=== PATIENT | female | born 1965 | race Caucasian/White ===

== ENCOUNTER 2022-03-24 06:54 | Inpatient (IN) | payer MEDICARE, MEDICAID, SELFPAY ==
[2022-03-24] VITALS (38 sets, daily range): BP systolic 145–169; BP diastolic 90–104; PULSE 79–96; RESP 15–28; TEMP 36.5–36.8; O2SAT 97–100; BMI 31.7
--- NOTE | ~2022-03-24 | CT_ITS ---
EXAMINATION: CT guide nephro tube pl RT DATE: 03/24/2022 15:31 INDICATION: Right hydronephrosis. TECHNIQUE: Consent was obtained from the legal guardian. The skin overlying the right kidney was prep ped and draped in usual sterile fashion. Anesthetic was administered with 1% lidocaine subcutaneousl y. An 18 gauge trochar needle was inserted into a the right kidney collecting system under CT guidanc e. The needle was exchanged over a wire for 5 Malaysian, 7 Malaysian, and 9 Malaysian dilators. During pigtail catheter placement, the wire became dislodged from the kidney. The target pocket of fluid in the col lecting system is not very large. A dressing was applied. The mA was adjusted according to patient si ze. Iterative reconstruction technique was employed. The dose-length product was 595.29 mGy-cm. There were no immediate complications. FINDINGS: The visualized portions of the lung bases to posterior mild atelectasis. There are trace pl eural effusions. Cardiomegaly is noted. There are coronary artery calcifications. There is a small sl iding hiatal hernia. The liver, gallbladder, spleen, pancreas, and adrenal glands are normal. There i s mild atrophy of the kidneys. There are staghorn calculi in the kidneys bilaterally. There is a 15 m m stone in proximal right ureter. There is mild right hydronephrosis. Stool distends the rectosigmoid . The appendix is normal. There are no pathologically enlarged lymph nodes. There is no free intraper itoneal fluid. There is a screw fixation of proximal right femur. 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 There is chronic dislocation of left hip with deformity and fusion of the femur and ilium. There is mild thoracolumbar spondylosis. There is chroni c height loss of multiple vertebral bodies. CT images demonstrate the needle and wire in the right renal pelvis. IMPRESSION: 1. Staghorn calculi in both kidneys. 15 mm stone in proximal right ureter with mild right hydronephro sis. 2. Failed right-sided CT-guided nephrostomy tube placement attempt. Aspiration of the right renal pel vis yielded 2 mL of opaque, crain fluid, which was sent for cultures. I discussed this result with Jhonny Wise. 3. Stool distends the rectosigmoid. Reviewed, dictated and finalized at location A. IMPRESSION: 1. Staghorn calculi in both kidneys. 15 mm stone in proximal right ureter with mild right hydronephrosis. 2. Failed right-sided CT-guided nephrostomy tube placement attempt. Aspiration of the right renal pelvis yielded 2 mL of opaque, crain fluid, which was sent for cultures. I discussed this result with Ghassan Wise. 3. Stool distends the rectosigmoid.
--- NOTE | 2022-03-24 07:37 | PC.NURSE ---
multiple attempts for catheter placement. unsuccessful. ERP made aware.
--- NOTE | 2022-03-24 07:48 | ED.GENADULT ---
HPI - General Adult General Chief complaint: Urogenital-Female Stated complaint: nephrostomy tube fell out Time Seen by Provider: 03/24/22 07:01 History of Present Illness HPI narrative: Patient is a 56-year-old female who presents ER with dislodgment of her right-sided nephrostomy tube. [facility] staff at [facility] discovered this at 3:30 AM. They are unsure when it actually came out. Patient has dementia and cannot provide an adequate history. It is unknown at this time which facility place this tube, which doctor placed this tube, or why it was placed. Patient does have history of MS and kidney stones and is a functional quadriplegic. 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 The urine in the nephrostomy bag is thick cloudy and green. Related Data Home Medications Medication Instructions Recorded Confirmed Lactobacillus acidophilus 2,000 mmu cells PO BID 03/24/22 03/24/22 (Acidophilus capsule) acetaminophen 650 mg tablet 650 mg PO Q4H PRN Pain 03/24/22 03/24/22 atorvastatin 40 mg tablet 40 mg PO HS 03/24/22 03/24/22 citalopram 20 mg tablet 20 mg PO HS 03/24/22 03/24/22 clonidine HCl 0.1 mg tablet 0.1 mg PO DAILY 03/24/22 03/24/22 cyclobenzaprine 5 mg tablet 5 mg PO BID 03/24/22 03/24/22 ferrous sulfate 325 mg (65 mg 325 mg PO BID 03/24/22 03/24/22 iron) tablet,delayed release furosemide 40 mg tablet 40 mg PO DAILY 03/24/22 03/24/22 guaifenesin 600 mg tablet, 600 mg PO Q12H 03/24/22 03/24/22 extended release 12 hr (Mucinex) hydrocodone 5 mg-acetaminophen 325 1 tablet PO Q6H PRN Severe Pain 03/24/22 03/24/22 mg tablet (Scale Score 7-10) hydrocortisone 20 mg tablet 20 mg PO DAILY 03/24/22 03/24/22 ipratropium bromide 0.02 % 1 ml inhalation DAILY PRN 03/24/22 03/24/22 solution for inhalation Shortness Of Breath lactulose 10 gram/15 mL oral 15 ml PO BID 03/24/22 03/24/22 solution lorazepam 1 mg tablet 1 mg PO Q6H 03/24/22 03/24/22 metoprolol tartrate 50 mg tablet 50 mg PO BID 03/24/22 03/24/22 multivitamin with minerals 1 tablet PO DAILY 03/24/22 03/24/22 ondansetron 4 mg disintegrating 4 mg PO Q6H PRN Nausea 03/24/22 03/24/22 tablet polyethylene glycol 3350 17 gram 17 g PO DAILY PRN Constipation 03/24/22 03/24/22 oral powder packet (Miralax) potassium chloride 20 mEq oral 20 meq PO DAILY 03/24/22 03/24/22 packet pregabalin 100 mg capsule 100 mg PO BID 03/24/22 03/24/22 risperidone 0.5 mg tablet 0.5 mg PO HS 03/24/22 03/24/22 sennosides 8.6 mg tablet (senna) 8.6 mg PO DAILY PRN Constipation 03/24/22 03/24/22 trazodone 50 mg tablet 0.5 tablet PO HS 03/24/22 03/24/22 Allergies Allergy/AdvReac Type Severity Reaction Status Date / Time No Known Allergies Allergy Unverified 10/02/15 21:16 Review of Systems Review of Systems: ROS unobtainable: Yes unobtainable due to mental status PMFSH Past Medical History Medical History (Updated 03/24/22 @ 14:21 by Epi Bansal MD) Anemia COPD (chronic obstructive pulmonary disease) Chronically O2 dependent on 4 L. Dementia Depression Essential (primary) hypertension Functional quadriplegia secondary to MS Generalized anxiety disorder Hyperlipidemia Multiple sclerosis Schizophrenia Surgical History Surgical History H/O nephrostomy Family History Family History Mother Family history of multiple sclerosis Hypertension Father Patient's father is Social History Social History (Updated 03/24/22 @ 13:41 by SWEETIE Brown) Social History: Patient is a [facility] Her guardian is Abe Burnham and can be reached at [phone]. Patient is a full code at this time Smoking status: Never smoker Second hand tobacco smoke exposure: Yes Alcohol intake: never Substance use: never Living arrangements: [facility] 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ion: unemployed [employer]
[2022-03-24 07:49] LABS: Bacteria Urine 4+ /hpf; RBC Urine >75 /hpf (0-2); WBC Clumps Urine Present /HPF; WBC Urine >75 /hpf
[2022-03-24 07:50] LABS: Add Urine Microscopic? YES; Appearance Urine Turbid (Clear); Color Urine Light Green (Yellow)
[2022-03-24 07:51] LABS: Lactic Acid Reflex 1.2 mmol/L (0.7-2.0)
[2022-03-24 07:52] LABS: Basophils Percent Auto 0.5 % (0.2-1.2); Eosinophils Absolute Auto 0.3 K/mm3 (0-0.3); Eosinophils Percent Auto 3.6 % (0-4.4); Hematocrit 35.4 % (37.0-47.0); Hemoglobin 10.8 g/dL (12.0-15.0); Immature Granulocyte Absolute 0.02 K/mm3 (0.00-0.031); Immature Granulocyte Percent A 0.2 % (0-0.5); Lymphocytes Absolute Auto 1.27 K/mm3 (0.9-3.2); Lymphocytes Percent Auto 15.3 % (18.3-44.2); Mean Corpuscular HGB Conc 30.5 g/dl (32-36); Mean Corpuscular Volume 85.1 fl (80-100); Mean Platelet Volume 9.9 fl (7.4-10.4); Monocytes Absolute Auto 0.5 K/mm3 (0.1-0.6); Monocytes Percent Auto 5.7 % (2.6-8.5); Neutrophils Absolute Auto 6.2 K/mm3 (1.3-6.7); Neutrophils Percent Auto 74.7 % (45.5-73.1); Platelet Count Result 268 k/mm3 (150-375); Red Blood Count 4.16 M/mm3 (4.2-5.4); Red Cell Distribution Width 14.6 % (11.5-14.5); White Blood Count 8.3 K/mm3 (4.5-10.0)
[2022-03-24 07:53] LABS: Anion Gap 4 mmol/L (8-16); Blood Urea Nitrogen 19 mg/dL (7-17); Calcium 8.9 mg/dL (8.4-10.2); Carbon Dioxide 29 mmol/L (22-30); Chloride 106 mmol/L (98-107); Estimated CRCL calculation 70 ml/min; Estimated Glomerular Filt Rate > 60; Glucose 99 mg/dL (65-110); INR 1.1; Partial Thromboplastin Time 31.3 SECONDS (22.3-36.8); Potassium 4.1 mmol/L (3.4-5.0); Prothrombin Time 14.1 Seconds (11.1-14.7); Sodium 139 mmol/L (137-145)
--- NOTE | 2022-03-24 10:30 | PC.NURSE ---
obtained consent for CT guided nephrostomy tube placement
--- NOTE | 2022-03-24 10:33 | PC.NURSE ---
ct states nephrostomy tube cannot be placed until approx 1400
--- NOTE | 2022-03-24 11:03 | PC.NURSE ---
faxed pt. information request to [facility] and [facility].
--- NOTE | 2022-03-24 12:21 | ADMGEN ---
This patient, Yesenia Perez, was admitted to 3 [facility] Surg Room 323-01. Patient/family oriented to hospital policies and general routines including ID bracelet, bed and alarms, visiting hours, pain management, procedures, bathroom and other care routines, personal items, smoking policy, room service/diet, and visiting hours. Information on how to activate the Rapid Response Team has been discussed. Patient/Family are encouraged to report perceived risks to care and to ask questions if they do not understand what they are told or what they should do.
--- NOTE | 2022-03-24 12:27 | ADMGEN ---
This patient, Yesenia Perez, was admitted to 3 [facility] Surg Room 323-01 at 1215. Patient/family oriented to hospital policies and general routines including ID bracelet, bed and alarms, visiting hours, pain management, procedures, bathroom and other care routines, personal items, smoking policy, room service/diet, and visiting hours. Information on how to activate the Rapid Response Team has been discussed. Patient/Family are encouraged to report perceived risks to care and to ask questions if they do not understand what they are told or what they should do.
[2022-03-24] MEDS: SODIUM CHLORIDE 0.9% IV 1,000 ML 125 ML IV CONT (12:59)
--- NOTE | 2022-03-24 15:30 | PM.IMHP ---
H&P: HPI History of Present Illness Date/Time: 03/24/22 1430 Chief Complaint: Nephrostomy tube displacement Narrative: Patient is a 56-year-old female with a past medical history of COPD, dementia, hypertension, multiple sclerosis, schizophrenia who [facility] from the [facility] for her nephrostomy tube being displaced. Patient is a alert oriented times 0 and most of the history taken from medical records. Patient has had a nephrostomy tube placed sometime in her past however unknown at this time who did it or when it was placed. However this morning at 3:30 a.m. the [facility] staff went in to check the patient and nurse at the tube was dislodged. They have no recollection of when the tube was dislodged or know what even happened. However when patient did arrive it was noted that that urine in the bag was very dark green thick urine. Patient currently looks comfortable, and seems to be doing well. She denies any chest pain, shortness of breath, pain or discomfort. Complete review of systems unable to be obtained due to patients mental status. She does communicate and she was upset and stated that she was adopted. After a little bit of research, it looks as if the nephrostomy tube was placed at [facility] in [place]. She was referred to a urologist at [place] last Nov. Continue antibiotics at this time. Patient is being admitted to the hospitalist service under observation Review of Systems Review of Systems: All systems reviewed & are unremarkable except as noted in HPI and below PMFSH Past Medical History Medical History (Updated 03/24/22 @ 14:21 by Epi Bansal MD) Anemia COPD (chronic obstructive pulmonary disease) Chronically O2 dependent on 4 L. Dementia Depression Essential (primary) hypertension Functional quadriplegia secondary to MS Generalized anxiety disorder Hyperlipidemia Multiple sclerosis Schizophrenia Surgical History Surgical History H/O nephrostomy Family History Family History Mother Family history of multiple sclerosis Hypertension Father Patient's father is Social History Social History (Updated 03/24/22 @ 13:41 by SWEETIE Brown) Social History: Patient is a ramos of the [facility]. Her guardian is Abe Burnham and can be reached at [phone]. Patient is a full code at this time Smoking status: Never smoker Second hand tobacco smoke exposure: Yes Alcohol intake: never Substance use: never Living arrangements: [facility] 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ion: unemployed Gender identity (if verbalized by the patient): Female Sexual Orientation (if Verbalized by the Patient): Straight or Heterosexual Spiritual care concerns: No Agree to blood products: Yes Meds Home Medications and Allergies Home Medications Medication Instructions Recorded Confirmed Type Lactobacillus acidophilus 2,000 mmu cells PO BID 03/24/22 03/24/22 History (Acidophilus capsule) acetaminophen 650 mg tablet 650 mg PO Q4H PRN Pain 03/24/22 03/24/22 History atorvastatin 40 mg tablet 40 mg PO HS 03/24/22 03/24/22 History citalopram 20 mg tablet 20 mg PO HS 03/24/22 03/24/22 History clonidine HCl 0.1 mg tablet 0.1 mg PO DAILY 03/24/22 03/24/22 History cyclobenzaprine 5 mg tablet 5 mg PO BID 03/24/22 03/24/22 History ferrous sulfate 325 mg (65 mg 325 mg PO BID 03/24/22 03/24/22 History iron) tablet,delayed release furosemide 40 mg tablet 40 mg PO DAILY 03/24/22 03/24/22 History guaifenesin 600 mg tablet, 600 mg PO Q12H 03/24/22 03/24/22 History extended release 12 hr (Mucinex) hydrocodone 5 mg-acetaminophen 325 1 tablet PO Q6H PRN Severe Pain 03/24/22 03/24/22 History mg tablet (Scale Score 7-10) hydrocortisone 20 mg tablet 20 mg PO DAILY 03/24/22 03/24/22 History ipratropium bromide 0.02 % 1 ml inhalation DAILY PRN 03/24/22 0
--- NOTE | 2022-03-24 16:28 | WPDURCON ---
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 Failed attempt by Interventional Radiology to replace to this afternoon. Patient currently clinically stable with normal white blood cell count and vital signs. -continue IV antibiotics -given inability of Interventional Radiology at this facility to replace her nephrostomy tube, I have recommended patient be transferred to a tertiary care facility to allow for nephrostomy tube replacement by Interventional Radiology. -I do not believe that ureteral stent placement will be successful ( stent placement was not attempted by multiple previous urologist at other facilities due to size of her large obstructing stone). Patient have better chance of definitive care with nephrostomy tube placement at a tertiary facility and additional interventions if necessary in this complex patient. Urology Consult Note HPI Date Seen: 03/24/22 Requesting Physician: Brittany Saul MD Primary Care Provider: Ana Moore, Consult Narrative Narrative: Yesenia Perez is a 56 year old female who has a history of nephrolithiasis and extensive bilateral stone disease. The patient has been managed with a right-sided nephrostomy to since November of 2019 after admission at [facility] for for mental status change and XGP kidney. The patient was found at her senior living today to have the right nephrostomy 2 to be dislodged and therefore was brought to [facility] for evaluation. The patient was taken to Interventional Radiology where they were able to place the needle and aspirate for urine drainage from the right kidney however were unable to replace her nephrostomy tube. The patient is A&O x1 and unable to give full history. History obtained from chart. [facility] Past Medical History Medical History (Updated 03/24/22 @ 16:37 by Suresh Sommer MD) Anemia COPD (chronic obstructive pulmonary disease) Chronically O2 dependent on 4 L. Dementia Depression Essential (primary) hypertension Functional quadriplegia secondary to MS Generalized anxiety disorder Hyperlipidemia Multiple sclerosis Schizophrenia XGP (xanthogranulomatous pyelonephritis) Surgical History Surgical History H/O nephrostomy Family History Family History Mother Family history of multiple sclerosis Hypertension Father Patient's father is Social History Social History (Updated 03/24/22 @ 13:41 by SWEETIE Brown) Social History: Patient is a ramos of the [facility]. Her guardian is Abe Burnham and can be reached at [phone]. Patient is a full code at this time Smoking status: Never smoker Second hand tobacco smoke exposure: Yes Alcohol intake: never Substance use: never Living arrangements: senior living 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ion: unemployed Gender identity (if verbalized by the patient): Female Sexual Orientation (if Verbalized by the Patient): Straight or Heterosexual Spiritual care concerns: No Agree to blood products: Yes Meds Home Medications and Allergies Home Medications Medication Instructions Recorded Confirmed Type Lactobacillus acidophilus 2,000 mmu cells PO BID 03/24/22 03/24/22 History (Acidophilus capsule) acetaminophen 650 mg tablet 650 mg PO Q4H PRN Pain 03/24/22 03/24/22 History atorvastatin 40 mg tablet 40 mg PO HS 03/24/22 03/24/22 History citalopram 20 mg tablet 20 mg PO HS 0
[2022-03-24] MEDS: LACTULOSE 20 GM/30 ML UDC 10 GM PO (17:34)
[2022-03-24] MEDS: CYCLOBENZAPRINE HCL 5 MG TABLET PO (17:35)
[2022-03-24] MEDS: METOPROLOL TARTRATE 50 MG TAB PO (17:35)
[2022-03-24] MEDS: PREGABALIN (*CRX) 50 MG CAPSULE 100 MG PO (17:35)
[2022-03-24] MEDS: FERROUS SULFATE 324 MG TABLET PO (17:36)
[2022-03-24] MEDS: ACIDOPHILUS/BULGARICUS CHEWABLE TABLET 1 TABLET PO (17:36)
[2022-03-24] MEDS: LORazepam (*CRX) 1 MG TABLET PO (17:36)
[2022-03-24 18:11] LABS: EDCOVIDSCREEN Negative (Negative)
[2022-03-24] MEDS: ATORVASTATIN 40 MG TABLET PO (22:09)
[2022-03-24] MEDS: CITALOPRAM HYDROBROMIDE 20 MG TABLET PO (22:14)
[2022-03-24] MEDS: guaiFENesin 12 HR 600 MG TABCR PO (22:14)
[2022-03-24] MEDS: risperiDONE 0.5 MG TABLET PO (22:16)
[2022-03-24] MEDS: traZODone HCL 25 MG TABLET PO (22:16)
[2022-03-25] VITALS (9 sets, daily range): BP systolic 111–128; BP diastolic 72–87; PULSE 80–115; RESP 18–24; TEMP 35.9–36.8; O2SAT 96–99
[2022-03-25] MEDS: LORazepam (*CRX) 1 MG TABLET PO ×5 (01:17→23:11)
[2022-03-25] MEDS: SODIUM CHLORIDE 0.9% IV 1,000 ML 125 ML IV CONT ×3 (03:47→22:36)
[2022-03-25 06:32] LABS: Basophils Percent Auto 0.3 % (0.2-1.2); Eosinophils Absolute Auto 0.2 K/mm3 (0-0.3); Eosinophils Percent Auto 1.9 % (0-4.4); Hematocrit 34.2 % (37.0-47.0); Hemoglobin 10.4 g/dL (12.0-15.0); Immature Granulocyte Absolute 0.04 K/mm3 (0.00-0.031); Immature Granulocyte Percent A 0.4 % (0-0.5); Lymphocytes Absolute Auto 0.99 K/mm3 (0.9-3.2); Lymphocytes Percent Auto 9.7 % (18.3-44.2); Mean Corpuscular HGB Conc 30.4 g/dl (32-36); Mean Corpuscular Hemoglobin 26.3 pg (26-34); Mean Corpuscular Volume 86.6 fl (80-100); Mean Platelet Volume 10.1 fl (7.4-10.4); Monocytes Absolute Auto 0.6 K/mm3 (0.1-0.6); Monocytes Percent Auto 5.8 % (2.6-8.5); Neutrophils Absolute Auto 8.4 K/mm3 (1.3-6.7); Neutrophils Percent Auto 81.9 % (45.5-73.1); Platelet Count Result 238 k/mm3 (150-375); Red Blood Count 3.95 M/mm3 (4.2-5.4); Red Cell Distribution Width 14.6 % (11.5-14.5); White Blood Count 10.2 K/mm3 (4.5-10.0)
[2022-03-25 06:47] LABS: Alanine Aminotransferase 10 U/L (6-35); Albumin Level 3.4 g/dL (3.5-5.1); Alkaline Phosphatase 148 U/L (38-126); Anion Gap 6 mmol/L (8-16); Aspartate Amino Transferase 16 U/L (14-36); Bilirubin,Total 0.6 mg/dL (0.2-1.3); Blood Urea Nitrogen 14 mg/dL (7-17); Calcium 8.2 mg/dL (8.4-10.2); Carbon Dioxide 25 mmol/L (22-30); Chloride 106 mmol/L (98-107); Estimated CRCL calculation 79 ml/min; Estimated Glomerular Filt Rate > 60; Glucose 102 mg/dL (65-110); Magnesium 1.9 mg/dL (1.6-2.3); Potassium 3.9 mmol/L (3.4-5.0); Sodium 137 mmol/L (137-145)
[2022-03-25 06:49] LABS: Transferrin 111 mg/dL (206-381)
[2022-03-25 07:19] LABS: Iron 35 ug/dL (37-170)
[2022-03-25 07:26] LABS: Percent Iron Saturation 18 % (20-50)
[2022-03-25] MEDS: LACTULOSE 20 GM/30 ML UDC 10 GM PO ×2 (08:41→17:29)
[2022-03-25 08:42] LABS: Folic Acid 16.7 ng/mL (2.76->20)
[2022-03-25] MEDS: POTASSIUM CHLORIDE 20 MEQ PACKET (FOR LIQUID) PO (08:42)
[2022-03-25] MEDS: METOPROLOL TARTRATE 50 MG TAB PO ×2 (08:42→17:31)
[2022-03-25] MEDS: FERROUS SULFATE 324 MG TABLET PO ×2 (08:42→17:29)
[2022-03-25] MEDS: FUROSEMIDE 40 MG TABLET PO (08:42)
[2022-03-25] MEDS: PREGABALIN (*CRX) 50 MG CAPSULE 100 MG PO ×2 (08:42→17:30)
[2022-03-25] MEDS: guaiFENesin 12 HR 600 MG TABCR PO ×2 (08:42→20:58)
[2022-03-25] MEDS: THERAPEUTIC MULTIVITAMINS/MINERALS TAB (*BKC) 1 TABLET PO (08:42)
[2022-03-25] MEDS: CYCLOBENZAPRINE HCL 5 MG TABLET PO ×2 (08:42→17:29)
[2022-03-25] MEDS: HYDROCORTISONE 10 MG TABLET 20 MG PO (08:42)
[2022-03-25] MEDS: cloNIDine HCL 0.1 MG TABLET PO (08:43)
[2022-03-25] MEDS: ACIDOPHILUS/BULGARICUS CHEWABLE TABLET 1 TABLET PO ×2 (08:43→17:29)
--- NOTE | 2022-03-25 09:04 | PM.IMPN ---
Progress Note: A&P Assessment and Plan (1) Nephrostomy tube displaced: Code(s): T83.022A - Displacement of nephrostomy catheter, initial encounter Status: Acute Assessment and Plan: Noted be dislodged IR consultation for new placement Wound and skin care Urology consulted for further recommendations IR unsuccessful about getting the tube placed Dr. Pérez, stated that he was able to obtain 2-3ml of purulent drainage Per Urology, the stone cannot be removed by stent placement and the recommendation is for transfer to a tertiary hospital system for nephrostomy tube placement and additional management This morning leukocytosis with right shift. Patient remains afebrile but does mention some pain. Currently on imepenem 1,000 mg q8h. Called [facility] transfer center and patient has been accepted at [facility] but is still awaiting a bed (2) Abnormal urinalysis: Code(s): R82.90 - Unspecified abnormal findings in urine Status: Acute Assessment and Plan: Turbid like green urine with greater than 75 white blood cells, white blood cell clumps present, 4+ urine bacteria Continue Primaxin UCX finalized with mixed jenny no speciation BCX with no growth so far (3) Anemia: Code(s): D64.9 - Anemia, unspecified Status: Acute Assessment and Plan: H&H stable at this time 10.9/34.4 Continue home ferrous sulfate 325 p.o. b.i.d. Trend labs Has iron defeciency anemia and is currently on iron BID. Continue. (4) Hyperlipidemia: Code(s): E78.5 - Hyperlipidemia, unspecified Status: Acute Assessment and Plan: Continue statin. (5) Essential (primary) hypertension: Code(s): I10 - Essential (primary) hypertension Status: Acute Assessment and Plan: Continue home medications. Will monitor. (6) Generalized anxiety disorder: Code(s): F41.1 - Generalized anxiety disorder Status: Acute Assessment and Plan: Continue lorazepam 1mg PO Q6H, trazadone 0.5 at HS, and risperidone 0.5mg pO HS Subjective Date/time seen: 03/25/22 0830 Patient says she has pain but cannot specify where. Says she feels ok but does not like being in the room alone. Review of Systems Neurologic: Reports confusion Exam Narrative: GENERAL: NAD, cooperative HEENT: Normocephalic, atraumatic, anicteric NECK: Supple CV: Normal S1, S2, RRR, No MRG RESP: CTAB, Normal work of breathing. Abdomen: Soft, non-tender, non-distended EXTREMITIES: Warm and well perfused, no clubbing, cyanosis, or edema. LUE extremely stiff and lays to left side SKIN: warm, dry and intact. NEURO: Alert and oriented to self. Objective Data Vital Signs Vital Signs: Vital Signs - 24 hr 03/24/22 17:35 03/24/22 21:43 03/24/22 20:40 Temperature 98.0 F Pulse Rate 80 89 89 Respiratory Rate 22 H 22 H Blood Pressure 146/92 H Pulse Oximetry 97 97 Oxygen Delivery Nasal Cannula Oxygen Flow Rate 4 03/25/22 05:38 03/25/22 08:42 03/25/22 08:30 Temperature 98.2 F Pulse Rate 115 H 90 Respiratory Rate 24 H Blood Pressure 128/87 Pulse Oximetry 99 99 Oxygen Delivery Nasal Cannula Oxygen Flow Rate 4 03/25/22 13:04 03/25/22 14:00 Temperature 96.6 F L Pulse Rate 92 Respiratory Rate 18 Blood Pressure 112/82 Pulse Oximetry 98 97 Oxygen Delivery Nasal Cannula Oxygen Flow Rate 4 Intake/Output Intake/Output: Intake & Output 03/22/22 03/23/22 03/24/22 03/25/22 23:59 23:59 23:59 23:59 Intake Total 1250 1500 Balance 1250 1500 Meds/Results Medications: Active Medications Generic Name Dose Route Start Last Admin Trade Name Freq PRN Reason Stop Dose Admin Acetaminophen 650 mg 03/24/22 15:09 Acetaminophen 325 Mg Tablet PO Q4H PRN Pain rated 1-3 Hydrocodone Bitart/Acetaminophen 1 tab 03/24/22 15:04 Hydrocodone/Aceta
--- NOTE | 2022-03-25 09:04 | P.PNIM_ITS ---
Progress Note: A&P Assessment and Plan (1) Nephrostomy tube displaced: Code(s): T83.022A - Displacement of nephrostomy catheter, initial encounter Status: Acute Assessment and Plan: * Noted be dislodged * IR consultation for new placement * Wound and skin care * Urology consulted for further recommendations * IR unsuccessful about getting the tube placed * Dr. Pérez, stated that he was able to obtain 2-3ml of purulent drainage * Per Urology, the stone cannot be removed by stent placement and the recommendation is for transfer to a tertiary hospital system for nephrostomy tube placement and additional management * This morning leukocytosis with right shift. Patient remains afebrile but does mention some pain. Currently on imepenem 1,000 mg q8h. Called [facility] transfer center and patient has been accepted at [facility] but is still awaiting a bed (2) Abnormal urinalysis: Code(s): R82.90 - Unspecified abnormal findings in urine Status: Acute Assessment and Plan: * Turbid like green urine with greater than 75 white blood cells, white blood cell clumps present, 4+ urine bacteria * Continue Primaxin * UCX finalized with mixed jenny no speciation * BCX with no growth so far (3) Anemia: Code(s): D64.9 - Anemia, unspecified Status: Acute Assessment and Plan: * H&H stable at this time 10.9/34.4 * Continue home ferrous sulfate 325 p.o. b.i.d. * Trend labs * Has iron defeciency anemia and is currently on iron BID. Continue. (4) Hyperlipidemia: Code(s): E78.5 - Hyperlipidemia, unspecified Status: Acute Assessment and Plan: * Continue statin. (5) Essential (primary) hypertension: Code(s): I10 - Essential (primary) hypertension Status: Acute Assessment and Plan: * Continue home medications. Will monitor. (6) Generalized anxiety disorder: Code(s): F41.1 - Generalized anxiety disorder Status: Acute Assessment and Plan: * Continue lorazepam 1mg PO Q6H, trazadone 0.5 at HS, and risperidone 0.5mg pO HS Subjective Date/time seen: 03/25/22 0830 Patient says she has pain but cannot specify where. Says she feels ok but does not like being in the room alone. Review of Systems Neurologic: Reports confusion Exam Narrative: GENERAL: NAD, cooperative HEENT: Normocephalic, atraumatic, anicteric NECK: Supple CV: Normal S1, S2, RRR, No MRG RESP: CTAB, Normal work of breathing. Abdomen: Soft, non-tender, non-distended EXTREMITIES: Warm and well perfused, no clubbing, cyanosis, or edema. LUE extremely stiff and lays to left side SKIN: warm, dry and intact. NEURO: Alert and oriented to self. Objective Data Vital Signs Vital Signs: Vital Signs - 24 hr 03/24/22 17:35 03/24/22 21:43 03/24/22 20:40 Temperature 98.0 F Pulse Rate 80 89 89 Respiratory Rate 22 H 22 H Blood Pressure 146/92 H Pulse Oximetry 97 97 Oxygen Delivery Nasal Cannula Oxygen Flow Rate 4 03/25/22 05:38 03/25/22 08:42 03/25/22 08:30 Temperature 98.2 F Pulse Rate 115 H 90 Respiratory Rate 24 H Blood Pressure 128/87
--- NOTE | 2022-03-25 13:59 | WPDUROPN2 ---
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 - she is awaiting transfer to [facility] for replacement of the PCN - Continue plans for PCN replacement at [facility] as PCN was not able to be replaced at [facility]. Subjective Subjective Date/Time Seen: 03/25/22 13:59 - Ms. Perez is A + O x0. She denies pain. She states she cannot get to the bathroom to void. Review of prior records from [facility] show she was seen at [facility] in August 2021 and had urinary leakage around [place] catheter at that time. She had a nephrostomy tube at [facility] in [place] in November for an obstructing right ureter stone and XGP kidney per prior notes. She was referred to [facility] for further management. She had the PCN dislodged. Radiology attempted replacement at [facility] yesterday, and the PCN could not be replaced. She is awaiting transfer to [facility] for PCN replacement. Exam Narrative: The patient is resting comfortably. She responds appropriately to questioning about her physical state, but does not provide appropriate history based on the documentation in the current chart and review of [facility]. Objective Data Vital Signs Vital Signs: Vital Signs - 24 hr 03/24/22 14:00 03/24/22 17:35 03/24/22 21:43 Temperature 36.8 C 36.7 C Pulse Rate 90 80 89 Respiratory Rate 18 22 H Blood Pressure 154/90 H 146/92 H Pulse Oximetry 98 97 Oxygen Delivery Oxygen Flow Rate 03/24/22 20:40 03/25/22 05:38 03/25/22 08:42 Temperature 36.8 C Pulse Rate 89 115 H 90 Respiratory Rate 22 H 24 H Blood Pressure 128/87 Pulse Oximetry 97 99 Oxygen Delivery Nasal Cannula Oxygen Flow Rate 4 03/25/22 08:30 03/25/22 13:04 Temperature Pulse Rate Respiratory Rate Blood Pressure Pulse Oximetry 99 98 Oxygen Delivery Nasal Cannula Nasal Cannula Oxygen Flow Rate 4 4 Intake/Output Intake/Output: Intake & Output 03/22/22 03/23/22 03/24/22 03/25/22 23:59 23:59 23:59 23:59 Intake Total 1250 1250 Balance 1250 1250 Meds/Results Medications: Active Medications Generic Name Dose Route Start Last Admin Trade Name Freq PRN Reason Stop Dose Admin Acetaminophen 650 mg 03/24/22 15:09 Acetaminophen 325 Mg Tablet PO Q4H PRN Pain rated 1-3 Hydrocodone Bitart/Acetaminophen 1 tab 03/24/22 15:04 Hydrocodone/Acetaminophen (*Crx) 5-325 Mg Tablet PO Q6H PRN Severe Pain (Scale Score 7-10) Atorvastatin Calcium 40 mg 03/24/22 21:00 03/24/22 22:09 Atorvastatin 40 Mg Tablet PO 40 mg HS MERLYN Administration Citalopram Hydrobromide 20 mg 03/24/22 21:00 03/24/22 22:14 Citalopram Hydrobromide 20 Mg Tablet PO 20 mg HS MERLYN Administration Clonidine HCl 0.1 mg 03/25/22 09:00 03/25/22 08:43 Clonidine Hcl 0.1 Mg Tablet PO 0.1 mg DAILY MERLYN Administration Cyclobenzaprine HCl 5 mg 03/24/22 17:00 03/25/22 08:42 Cyclobenzaprine Hcl 5 Mg Tablet PO 5 mg BID MERLYN Administration Ferrous Sulfate 324 mg 03/24/22 17:00 03/25/22 08:42 Ferrous Sulfate 324 Mg Tablet PO 324 mg BID MERLYN Administration Furosemide 40 mg 03/25/22 09:00 03/25/22 08:42 Furosemide 40 Mg Tablet PO 40 mg DAILY MERLYN Administration Guaifenesin 600 mg 03/24/22 21:00 03/25/22 08:42 Guaifenesin 12 Hr 600 Mg Tabcr PO 600 mg Q12HR MERLYN Administration Hydrocortisone 20 mg 03/25/22 09:00 03/25/22 08:42 Hydrocortisone 10 Mg Tablet PO 20 mg DAILY MERLYN Administration Imipenem/Cilastatin Sodium 1, 250 mls @ 375 mls/hr 03/24/22 19:00 03/25/22 12:27 000 mg/ Dextrose IVPB 375 mls/hr Q8H MERLYN Administration Sodium Chloride
[2022-03-25] MEDS: ATORVASTATIN 40 MG TABLET PO (20:58)
[2022-03-25] MEDS: CITALOPRAM HYDROBROMIDE 20 MG TABLET PO (20:58)
[2022-03-25] MEDS: risperiDONE 0.5 MG TABLET PO (20:58)
[2022-03-25] MEDS: traZODone HCL 25 MG TABLET PO (20:58)
[2022-03-26] VITALS (8 sets, daily range): BP systolic 121–124; BP diastolic 73–84; PULSE 82–96; RESP 18–22; TEMP 35.8–36.8; O2SAT 97–100
--- NOTE | 2022-03-26 00:54 | PC.NURSE ---
03/26/22 0052 [facility] called with update, no bed available.
[2022-03-26] MEDS: LORazepam (*CRX) 1 MG TABLET PO ×3 (05:18→17:34)
[2022-03-26] MEDS: LACTULOSE 20 GM/30 ML UDC 10 GM PO ×2 (08:26→17:33)
[2022-03-26] MEDS: CYCLOBENZAPRINE HCL 5 MG TABLET PO ×2 (08:26→17:34)
[2022-03-26] MEDS: HYDROCORTISONE 10 MG TABLET 20 MG PO (08:26)
[2022-03-26] MEDS: ACIDOPHILUS/BULGARICUS CHEWABLE TABLET 1 TABLET PO ×2 (08:26→17:33)
[2022-03-26] MEDS: FERROUS SULFATE 324 MG TABLET PO ×2 (08:26→17:33)
[2022-03-26] MEDS: THERAPEUTIC MULTIVITAMINS/MINERALS TAB (*BKC) 1 TABLET PO (08:26)
[2022-03-26] MEDS: cloNIDine HCL 0.1 MG TABLET PO (08:26)
[2022-03-26] MEDS: FUROSEMIDE 40 MG TABLET PO (08:26)
[2022-03-26] MEDS: PREGABALIN (*CRX) 50 MG CAPSULE 100 MG PO ×2 (08:27→17:34)
[2022-03-26] MEDS: POTASSIUM CHLORIDE 20 MEQ PACKET (FOR LIQUID) PO (08:27)
[2022-03-26] MEDS: guaiFENesin 12 HR 600 MG TABCR PO ×2 (08:27→20:06)
[2022-03-26] MEDS: METOPROLOL TARTRATE 50 MG TAB PO ×2 (08:27→17:33)
[2022-03-26 08:34] LABS: Basophils Percent Auto 0.3 % (0.2-1.2); Eosinophils Absolute Auto 0.4 K/mm3 (0-0.3); Hematocrit 33.6 % (37.0-47.0); Immature Granulocyte Absolute 0.03 K/mm3 (0.00-0.031); Immature Granulocyte Percent A 0.3 % (0-0.5); Lymphocytes Absolute Auto 1.06 K/mm3 (0.9-3.2); Lymphocytes Percent Auto 11.8 % (18.3-44.2); Mean Corpuscular HGB Conc 29.8 g/dl (32-36); Mean Corpuscular Hemoglobin 26.1 pg (26-34); Mean Corpuscular Volume 87.7 fl (80-100); Monocytes Absolute Auto 0.7 K/mm3 (0.1-0.6); Monocytes Percent Auto 7.3 % (2.6-8.5); Neutrophils Absolute Auto 6.9 K/mm3 (1.3-6.7); Neutrophils Percent Auto 76.3 % (45.5-73.1); Platelet Count Result 217 k/mm3 (150-375); Red Blood Count 3.83 M/mm3 (4.2-5.4); Red Cell Distribution Width 14.8 % (11.5-14.5)
[2022-03-26 08:46] LABS: Anion Gap 4 mmol/L (8-16); Blood Urea Nitrogen 12 mg/dL (7-17); Calcium 8.1 mg/dL (8.4-10.2); Carbon Dioxide 26 mmol/L (22-30); Chloride 109 mmol/L (98-107); Estimated CRCL calculation 70 ml/min; Estimated Glomerular Filt Rate > 60; Glucose 106 mg/dL (65-110); Potassium 3.1 mmol/L (3.4-5.0); Sodium 139 mmol/L (137-145)
[2022-03-26] MEDS: ENOXAPARIN 40 MG/0.4 ML SYRINGE SUB-Q (09:39)
--- NOTE | 2022-03-26 11:36 | WPDUROPN2 ---
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 She had replacement of the PCN 01/2022. On the scan, there was much less hydronephrosis at that time. Subsequent [place] renal scan showed no function in the right kidney. She remains clinically stable currently. She has been accepted for transfer to [facility] as the nephrostomy tube could not be replaced at [facility]. The transfer is still pending. She will have a new CT scan scan without contrast to reassess for development of hydronephrosis since the nephrostomy tube has been out for 2 days. (2) Displacement of nephrostomy tube: Code(s): T83.022A - Displacement of nephrostomy catheter, initial encounter Status: Acute Assessment and Plan: Pending transfer for nephrostomy tube replacement. Subjective Subjective Date/Time Seen: 03/26/22 11:36: Resting comfortably. She remains on imipenem. Denies flank pain today. Exam Narrative: in no distress Objective Data Vital Signs Vital Signs: Vital Signs - 24 hr 03/25/22 13:04 03/25/22 14:00 03/25/22 17:31 Temperature 35.9 C L Pulse Rate 92 80 Respiratory Rate 18 Blood Pressure 112/82 Pulse Oximetry 98 97 Oxygen Delivery Nasal Cannula Oxygen Flow Rate 4 03/25/22 20:00 03/25/22 21:08 03/25/22 22:00 Temperature 36.8 C Pulse Rate 81 Respiratory Rate 20 Blood Pressure 111/72 Pulse Oximetry 97 96 98 Oxygen Delivery Nasal Cannula Nasal Cannula Oxygen Flow Rate 4 4 03/26/22 06:00 03/26/22 08:27 03/26/22 08:40 Temperature 36.8 C Pulse Rate 92 96 Respiratory Rate 18 Blood Pressure 123/73 Pulse Oximetry 97 97 Oxygen Delivery Nasal Cannula Oxygen Flow Rate 4 Intake/Output Intake/Output: Intake & Output 03/23/22 03/24/22 03/25/22 03/26/22 23:59 23:59 23:59 23:59 Intake Total 1250 2972 450 Balance 1250 2972 450 Meds/Results Medications: Active Medications Generic Name Dose Route Start Last Admin Trade Name Freq PRN Reason Stop Dose Admin Acetaminophen 650 mg 03/24/22 15:09 Acetaminophen 325 Mg Tablet PO Q4H PRN Pain rated 1-3 Hydrocodone Bitart/Acetaminophen 1 tab 03/24/22 15:04 Hydrocodone/Acetaminophen (*Crx) 5-325 Mg Tablet PO Q6H PRN Severe Pain (Scale Score 7-10) Atorvastatin Calcium 40 mg 03/24/22 21:00 03/25/22 20:58 Atorvastatin 40 Mg Tablet PO 40 mg HS MERLYN Administration Citalopram Hydrobromide 20 mg 03/24/22 21:00 03/25/22 20:58 Citalopram Hydrobromide 20 Mg Tablet PO 20 mg HS MERLYN Administration Clonidine HCl 0.1 mg 03/25/22 09:00 03/26/22 08:26 Clonidine Hcl 0.1 Mg Tablet PO 0.1 mg DAILY MERLYN Administration Cyclobenzaprine HCl 5 mg 03/24/22 17:00 03/26/22 08:26 Cyclobenzaprine Hcl 5 Mg Tablet PO 5 mg BID MERLYN Administration Enoxaparin Sodium 40 mg 03/26/22 09:00 03/26/22 09:39 Enoxaparin 40 Mg/0.4 Ml Syringe SUB-Q 40 mg DAILY MERLYN Administration Ferrous Sulfate 324 mg 03/24/22 17:00 03/26/22 08:26 Ferrous Sulfate 324 Mg Tablet PO 324 mg BID MERLYN Administration Furosemide 40 mg 03/25/22 09:00 03/26/22 08:26 Furosemide 40 Mg Tablet PO 40 mg DAILY MERLYN Administration Guaifenesin 600 mg 03/24/22 21:00 03/26/22 08:27 Guaifenesin 12 Hr 600 Mg Tabcr PO 600 mg Q12HR MERLYN Administration Hydrocortisone 20 mg 03/25/22 09:00 03/26/22 08:26 Hydrocortisone 10 Mg Tablet PO 20 mg DAILY MERLYN Administration Imipenem/Cilastatin Sodium 1, 250 mls @ 375 mls/hr 03/24/22 19:00 03/26/22 11:03 000 mg/ Dextrose IVPB 375 mls/hr Q8H MERLYN Administration Ipratropium [place] 0.5 mg 03/24/22 15:04 Ipratropium Br 0.02% Inh Soln 0.5 Mg/2.5 Ml Vial INH
--- NOTE | 2022-03-26 16:42 | P.PNIM_ITS ---
Progress Note: A&P Assessment and Plan (1) Nephrostomy tube displaced: Code(s): T83.022A - Displacement of nephrostomy catheter, initial encounter Status: Acute Assessment and Plan: * Noted be dislodged * IR consultation for new placement * Wound and skin care * Urology consulted for further recommendations * IR unsuccessful about getting the tube placed * Dr. Pérez, stated that he was able to obtain 2-3ml of purulent drainage * Per Urology, the stone cannot be removed by stent placement and the recommendation is for transfer to a tertiary hospital system for nephrostomy tube placement and additional management * 03/25 leukocytosis with right shift. Patient remains afebrile but does mention some pain. Currently on imipenem 1,000 mg q8h. Called [facility] transfer center and patient has been accepted at [facility] but is still awaiting a bed * 03/26 Leukocytosis resolved and patient not reporting pain. Discussed patient with Urology and will order CT Abdomen pelvis. Continue imipenem. (2) Abnormal urinalysis: Code(s): R82.90 - Unspecified abnormal findings in urine Status: Acute Assessment and Plan: * Turbid like green urine with greater than 75 white blood cells, white blood cell clumps present, 4+ urine bacteria * Continue Primaxin * UCX finalized with mixed jenny no speciation * BCX with no growth so far (3) Anemia: Code(s): D64.9 - Anemia, unspecified Status: Acute Assessment and Plan: * H&H stable at this time 10.9/34.4 * Continue home ferrous sulfate 325 p.o. b.i.d. * Trend labs * Has iron defeciency anemia and is currently on iron BID. Continue. (4) Hyperlipidemia: Code(s): E78.5 - Hyperlipidemia, unspecified Status: Acute Assessment and Plan: * Continue statin. (5) Essential (primary) hypertension: Code(s): I10 - Essential (primary) hypertension Status: Acute Assessment and Plan: * Continue home medications. Will monitor. (6) Generalized anxiety disorder: Code(s): F41.1 - Generalized anxiety disorder Status: Acute Assessment and Plan: * Continue lorazepam 1mg PO Q6H, trazadone 0.5 at HS, and risperidone 0.5mg pO HS Subjective Date/time seen: 03/26/22 16:42 Patient denies having any pain this morning. Review of Systems Gastrointestinal: Gastrointestinal: Denies abdominal pain Objective Data Vital Signs Vital Signs: Vital Signs - 24 hr 03/25/22 17:31 03/25/22 20:00 03/25/22 21:08 Temperature Pulse Rate 80 Respiratory Rate Blood Pressure Pulse Oximetry 97 96 Oxygen Delivery Nasal Cannula Nasal Cannula Oxygen Flow Rate 4 4 03/25/22 22:00 03/26/22 06:00 03/26/22 08:27 Temperature 98.2 F 98.3 F Pulse Rate 81 92 96 Respiratory Rate 20 18 Blood Pressure 111/72 123/73 Pulse Oximetry 98 97 Oxygen Delivery Oxygen Flow Rate 03/26/22 08:40 03/26/22 11:54 03/26/22 14:00 Temperature 96.5 F L Pulse Rate 86 86 Respiratory Rate 18 22 H Blood Pressure 121/84 Pulse Oximetry 97 97 100
--- NOTE | 2022-03-26 16:42 | PM.IMPN ---
Progress Note: A&P Assessment and Plan (1) Nephrostomy tube displaced: Code(s): T83.022A - Displacement of nephrostomy catheter, initial encounter Status: Acute Assessment and Plan: Noted be dislodged IR consultation for new placement Wound and skin care Urology consulted for further recommendations IR unsuccessful about getting the tube placed Dr. Pérez, stated that he was able to obtain 2-3ml of purulent drainage Per Urology, the stone cannot be removed by stent placement and the recommendation is for transfer to a tertiary hospital system for nephrostomy tube placement and additional management 03/25 leukocytosis with right shift. Patient remains afebrile but does mention some pain. Currently on imipenem 1,000 mg q8h. Called [facility] transfer center and patient has been accepted at [facility] but is still awaiting a bed 03/26 Leukocytosis resolved and patient not reporting pain. Discussed patient with Urology and will order CT Abdomen pelvis. Continue imipenem. (2) Abnormal urinalysis: Code(s): R82.90 - Unspecified abnormal findings in urine Status: Acute Assessment and Plan: Turbid like green urine with greater than 75 white blood cells, white blood cell clumps present, 4+ urine bacteria Continue Primaxin UCX finalized with mixed jenny no speciation BCX with no growth so far (3) Anemia: Code(s): D64.9 - Anemia, unspecified Status: Acute Assessment and Plan: H&H stable at this time 10.9/34.4 Continue home ferrous sulfate 325 p.o. b.i.d. Trend labs Has iron defeciency anemia and is currently on iron BID. Continue. (4) Hyperlipidemia: Code(s): E78.5 - Hyperlipidemia, unspecified Status: Acute Assessment and Plan: Continue statin. (5) Essential (primary) hypertension: Code(s): I10 - Essential (primary) hypertension Status: Acute Assessment and Plan: Continue home medications. Will monitor. (6) Generalized anxiety disorder: Code(s): F41.1 - Generalized anxiety disorder Status: Acute Assessment and Plan: Continue lorazepam 1mg PO Q6H, trazadone 0.5 at HS, and risperidone 0.5mg pO HS Subjective Date/time seen: 03/26/22 16:42 Patient denies having any pain this morning. Review of Systems Gastrointestinal: Gastrointestinal: Denies abdominal pain Objective Data Vital Signs Vital Signs: Vital Signs - 24 hr 03/25/22 17:31 03/25/22 20:00 03/25/22 21:08 Temperature Pulse Rate 80 Respiratory Rate Blood Pressure Pulse Oximetry 97 96 Oxygen Delivery Nasal Cannula Nasal Cannula Oxygen Flow Rate 4 4 03/25/22 22:00 03/26/22 06:00 03/26/22 08:27 Temperature 98.2 F 98.3 F Pulse Rate 81 92 96 Respiratory Rate 20 18 Blood Pressure 111/72 123/73 Pulse Oximetry 98 97 Oxygen Delivery Oxygen Flow Rate 03/26/22 08:40 03/26/22 11:54 03/26/22 14:00 Temperature 96.5 F L Pulse Rate 86 86 Respiratory Rate 18 22 H Blood Pressure 121/84 Pulse Oximetry 97 97 100 Oxygen Delivery Nasal Cannula Nasal Cannula Oxygen Flow Rate 4 4 Intake/Output Intake/Output: Intake & Output 03/23/22 03/24/22 03/25/22 03/26/22 23:59 23:59 23:59 23:59 Intake Total 1250 2972 750 Balance 1250 2972 750 Meds/Results Medications: Active Medications Generic Name Dose Route Start Last Admin Trade Name Freq PRN Reason Stop Dose Admin Acetaminophen 650 mg 03/24/22 15:09 Acetaminophen 325 Mg Tablet PO Q4H PRN Pain rated 1-3 Hydrocodone Bitart/Acetaminophen 1 tab 03/24/22 15:04 Hydrocodone/Acetaminophen (*Crx) 5-325 Mg Tablet PO Q6H PRN Severe Pain (Scale Score 7-10) Atorvastatin Calcium 40 mg 03/24/22 21:00 03/25/22 20:58 Atorvastatin 40 Mg Tablet PO 40 mg HS MERLYN Administration Citalopram Hydrobromide 20 mg 03/24/22 21:00 0
[2022-03-26] MEDS: ATORVASTATIN 40 MG TABLET PO (20:06)
[2022-03-26] MEDS: CITALOPRAM HYDROBROMIDE 20 MG TABLET PO (20:06)
[2022-03-26] MEDS: traZODone HCL 25 MG TABLET PO (20:06)
[2022-03-26] MEDS: risperiDONE 0.5 MG TABLET PO (20:06)
--- NOTE | 2022-03-26 21:54 | PC.NURSE ---
03/26/222131 [facility] transfer center called with update stating a possible bed may be available.
--- NOTE | 2022-03-26 21:56 | PC.NURSE ---
03/26/22 2144 called [facility] transfer center spoke with naila. vitals and weight provided. room assignment [id number] and phone number to nurse station recieved [phone].
--- NOTE | 2022-03-26 22:22 | PC.NURSE ---
03/26/220 pt report given to zulma at [facility] [phone].
[2022-03-27] MEDS: LORazepam (*CRX) 1 MG TABLET PO (00:16)
--- NOTE | 2022-03-27 02:27 | PC.NURSE ---
03/27/22 0213 [facility] here to transport pt to [facility]. pt has all belongings. pt transported off floor via stretcher at 0226.
--- NOTE | 2022-03-27 07:44 | P.TS_ITS ---
Transfer Discharge Sum: Prov Provider Date of admission: 03/26/22 13:49 Primary care physician: Ana Moore, MD Admitting clinician: Brittany Saul MD Consults: 03/24/22 10:44 Consult to Physician Routine Comment: Spoke w/office 11:40 (, [place]) Consulting Provider: Suresh Sommer call center representative/MD group to consult: lisbet Reason for consultation: nephrostomy management Has provider been notified: Yes DS: Admitting Diagnosis Discharge Date 03/27/22 Admitting Diagnosis Pyelonephritis, nephrolithiasis DS: Discharge Diagnosis Discharge Diagnosis (1) Nephrostomy tube displaced: Code(s): T83.022A - Displacement of nephrostomy catheter, initial encounter Status: Acute Assessment and Plan: * Noted be dislodged * IR consultation for new placement * Wound and skin care * Urology consulted for further recommendations * IR unsuccessful about getting the tube placed * Dr. Pérez, stated that he was able to obtain 2-3ml of purulent drainage * Per Urology, the stone cannot be removed by stent placement and the r ecommendation is for transfer to a tertiary hospital system for nephrostomy tube placement and additional management * 03/25 leukocytosis with right shift. Patient remains afebrile but does mention some pain. Currently on imipenem 1,[address] [facility] transfer center and patient has been accepted at [facility] but is still awaiting a bed * 03/26 Leukocytosis resolved and patient not reporting pain. Discussed patient with Urology and will order CT Abdomen pelvis. Continue imipenem. (2) Abnormal urinalysis: Code(s): R82.90 - Unspecified abnormal findings in urine Status: Acute Assessment and Plan: * Turbid like green urine with greater than 75 white blood cells, white blood cell clumps present, 4+ urine bacteria * Continue Primaxin * UCX finalized with mixed jenny no speciation * BCX with no growth so far (3) Anemia: Code(s): D64.9 - Anemia, unspecified Status: Acute Assessment and Plan: * H&H stable at this time 10.9/34.4 * Continue home ferrous sulfate 325 p.o. b.i.d. * Trend labs * Has iron defeciency anemia and is currently on iron BID. Continue. (4) Hyperlipidemia: Code(s): E78.5 - Hyperlipidemia, unspecified Status: Acute Assessment and Plan: * Continue statin. (5) Essential (primary) hypertension: Code(s): I10 - Essential (primary) hypertension Status: Acute Assessment and Plan: * Continue home medications. Will monitor. (6) Generalized anxiety disorder: Code(s): F41.1 - Generalized anxiety disorder Status: Acute Assessment and Plan: * Continue lorazepam 1mg PO Q6H, trazadone 0.5 at HS, and risperidone 0.5mg pO HS Transfer Discharge Sum: Med Medications Active and Home Medications: Home Medications Lactobacillus acidophilus (Acidophilus capsule) 2,000 mmu cells PO BID 03/24/22 [History Confirmed 03/24/22] acetaminophen 650 mg tablet 650 mg PO Q4H PRN Pain 03/24/22 [History Confirmed 03/24/22] atorvastatin 40 mg tablet 40 mg PO HS 03/24/22 [History Confirmed 03/24/22] citalopram 20 mg tablet 20 mg PO HS 03/24/22 [History Confirmed 03/24/22] clonidine HCl 0.1
--- NOTE | 2022-03-27 07:44 | PM.TDS ---
Transfer Discharge Sum: Prov Provider Date of admission: 03/26/22 13:49 Primary care physician: Ana Moore, MD Admitting clinician: Brittany Saul MD Consults: 03/24/22 10:44 Consult to Physician Routine Comment: Spoke w/office 11:40 (, [place]) Consulting Provider: Suresh Sommer freight rate specialist/MD group to consult: lisbet Reason for consultation: nephrostomy management Has provider been notified: Yes DS: Admitting Diagnosis Discharge Date 03/27/22 Admitting Diagnosis Pyelonephritis, nephrolithiasis DS: Discharge Diagnosis Discharge Diagnosis (1) Nephrostomy tube displaced: Code(s): T83.022A - Displacement of nephrostomy catheter, initial encounter Status: Acute Assessment and Plan: Noted be dislodged IR consultation for new placement Wound and skin care Urology consulted for further recommendations IR unsuccessful about getting the tube placed Dr. Pérez, stated that he was able to obtain 2-3ml of purulent drainage Per Urology, the stone cannot be removed by stent placement and the recommendation is for transfer to a tertiary hospital system for nephrostomy tube placement and additional management 03/25 leukocytosis with right shift. Patient remains afebrile but does mention some pain. Currently on imipenem 1,000 mg q8h. Called [facility] transfer center and patient has been accepted at [facility] but is still awaiting a bed 03/26 Leukocytosis resolved and patient not reporting pain. Discussed patient with Urology and will order CT Abdomen pelvis. Continue imipenem. (2) Abnormal urinalysis: Code(s): R82.90 - Unspecified abnormal findings in urine Status: Acute Assessment and Plan: Turbid like green urine with greater than 75 white blood cells, white blood cell clumps present, 4+ urine bacteria Continue Primaxin UCX finalized with mixed jenny no speciation BCX with no growth so far (3) Anemia: Code(s): D64.9 - Anemia, unspecified Status: Acute Assessment and Plan: H&H stable at this time 10.9/34.4 Continue home ferrous sulfate 325 p.o. b.i.d. Trend labs Has iron defeciency anemia and is currently on iron BID. Continue. (4) Hyperlipidemia: Code(s): E78.5 - Hyperlipidemia, unspecified Status: Acute Assessment and Plan: Continue statin. (5) Essential (primary) hypertension: Code(s): I10 - Essential (primary) hypertension Status: Acute Assessment and Plan: Continue home medications. Will monitor. (6) Generalized anxiety disorder: Code(s): F41.1 - Generalized anxiety disorder Status: Acute Assessment and Plan: Continue lorazepam 1mg PO Q6H, trazadone 0.5 at HS, and risperidone 0.5mg pO HS Transfer Discharge Sum: Med Medications Active and Home Medications: Home Medications Lactobacillus acidophilus (Acidophilus capsule) 2,000 mmu cells PO BID 03/24/22 [History Confirmed 03/24/22] acetaminophen 650 mg tablet 650 mg PO Q4H PRN Pain 03/24/22 [History Confirmed 03/24/22] atorvastatin 40 mg tablet 40 mg PO HS 03/24/22 [History Confirmed 03/24/22] citalopram 20 mg tablet 20 mg PO HS 03/24/22 [History Confirmed 03/24/22] clonidine HCl 0.1 mg tablet 0.1 mg PO DAILY 03/24/22 [History Confirmed 03/24/22] cyclobenzaprine 5 mg tablet 5 mg PO BID 03/24/22 [History Confirmed 03/24/22] ferrous sulfate 325 mg (65 mg iron) tablet,delayed release 325 mg PO BID 03/24/22 [History Confirmed 03/24/22] furosemide 40 mg tablet 40 mg PO DAILY 03/24/22 [History Confirmed 03/24/22] guaifenesin 600 mg tablet, extended release 12 hr (Mucinex) 600 mg PO Q12H 03/24/22 [History Confirmed 03/24/22] hydrocodone 5 mg-acetaminophen 325 mg tablet 1 tablet PO Q6H PRN Severe Pain (Scale Score 7-10) 03/24/22 [History Confirmed 03/24/22] hydrocortisone 20 mg tablet 20 mg PO DAILY 03/24/22 [History Confirmed 03/24/22]
== END 2022-03-27 02:30 | disposition short-term general hospital (02) | DRG 698 ==
LOC: ANHED 08:25 → ANH3MEDSUR 11:31
PROVIDERS: Nurse Practitioner; Admitting Provider Family Medicine; Emergency Provider Emergency Medicine; PCP Internal Medicine; Visit Provider Internal Medicine
DX: T83.022A Displacement of nephrostomy catheter, initial encounter (principal); R53.2 Functional quadriplegia; N20.2 Calculus of kidney with calculus of ureter; N11.8 Other chronic tubulo-interstitial nephritis; Z20.822 Contact with and (suspected) exposure to COVID-19; R82.90 Unspecified abnormal findings in urine; D50.9 Iron deficiency anemia, unspecified; E78.5 Hyperlipidemia, unspecified; I10 Essential (primary) hypertension; J44.9 Chronic obstructive pulmonary disease, unspecified; F41.1 Generalized anxiety disorder; F03.90 Unspecified dementia, unspecified severity, without behavioral disturbance, psychotic disturbance, mood disturbance, and anxiety; F20.9 Schizophrenia, unspecified; G35 Multiple sclerosis; Z87.442 Personal history of urinary calculi; Z99.81 Dependence on supplemental oxygen
CPT/HCPCS: 36415; 50432; 80048; 80053; 81001; 82607; 82728; 82746; 83540; 83550; 83605; 83735; 84466; 85025; 85610; 85730; 87040; 87070; 87075; 87086; 87088; 87205; 87426; 96361; 96365; 96366; 96372; 96374; 96376; 99285; A9270; C1729; C9803; G0378; J0743; J1650; J7030; J7060

== ENCOUNTER 2022-07-31 18:21 | Emergency (ER) | payer MEDICARE, MEDICAID, SELFPAY ==
[2022-07-31] VITALS (12 sets, daily range): BP systolic 161–174; BP diastolic 92–116; PULSE 89–115; RESP 16–26; TEMP 37; O2SAT 96–98
--- NOTE | ~2022-07-31 | XR_ITS ---
EXAMINATION: XR chest 1V portable Exam Date/Time: 07/31/2022 19:15 CDT HISTORY: ams Comparison: 05/16/2015. RESULT: Lines, tubes, and devices: Collection of rounded radiopacities over the left upper quadrant of uncer tain significance, may represent external artifact. Lungs and pleura: Low lung volumes with crowding. Streaky linear left basilar and subsegmental right basilar opacities. Mild right lateral costophrenic angle blunting. Cardiomediastinal silhouette: Stable. Other: No acute osseous or upper abdominal finding. IMPRESSION: No acute cardiopulmonary process. Low lung volumes with bibasilar atelectasis. Possible small right p leural effusion. Reviewed, dictated and finalized at location [facility]. IMPRESSION: No acute cardiopulmonary process. Low lung volumes with bibasilar atelectasis. Possible small right pleural effusion.
--- NOTE | ~2022-07-31 | CT_ITS ---
EXAMINATION: CT brain wo con DATE: 07/31/2022 19:27 INDICATION: altered mental status . TECHNIQUE: Computed tomography (CT) of the head was performed without intravenous contrast. The mA wa s adjusted according to patient size. Iterative reconstruction technique was employed. The dose-lengt h product was 605.33 mGy-cm. COMPARISON: None FINDINGS: No acute intracranial hemorrhage or extra-axial fluid collection. No hydrocephalus, parenchymal mass, or herniation. No acute ischemic infarct. Somewhat rounded hyperdensity at the bifurcation of the left MCA. Unremarkable dural venous sinus attenuation. No acute osseous abnormality. The aerated spaces are clear. Moderate atrophy and chronic white matter change. Atherosclerotic intracranial calcifications. IMPRESSION: 1. No acute intracranial process. 2. Rounded hyperdensity at the bifurcation of the left MCA, which may represent arterial ectasia or a neurysm, without current evidence of hemorrhage. Consider nonemergent MRA or CTA irof the brain for f urther evaluation. Reviewed, dictated and finalized at location [facility]. IMPRESSION: 1. No acute intracranial process. 2. Rounded hyperdensity at the bifurcation of the left MCA, which may represent arterial ectasia or aneurysm, without current evidence of hemorrhage. Consider nonemergent MRA or CTA irof the brain for further evaluation.
--- NOTE | 2022-07-31 19:14 | ED.GENADULT ---
HPI - General Adult General Chief complaint: Unspecified Stated complaint: htn, eye twitching, not acting right Time Seen by Provider: 07/31/22 19:05 History of Present Illness HPI narrative: [facility] sent pt in for eye twitching however when EMS arrived and when NH was called, they state she is behaving at her baseline; she has MS and chronic nystagmus. She to me is denying any symptoms at all, no headache, nausea/vomiting, she does have chronic weakness and dementia which is why she is in a custodial. Related Data Home Medications Medication Instructions Recorded Confirmed Lactobacillus acidophilus 2,000 mmu cells PO BID 03/24/22 03/24/22 (Acidophilus capsule) acetaminophen 650 mg tablet 650 mg PO Q4H PRN Pain 03/24/22 03/24/22 atorvastatin 40 mg tablet 40 mg PO HS 03/24/22 03/24/22 citalopram 20 mg tablet 20 mg PO HS 03/24/22 03/24/22 clonidine HCl 0.1 mg tablet 0.1 mg PO DAILY 03/24/22 03/24/22 cyclobenzaprine 5 mg tablet 5 mg PO BID 03/24/22 03/24/22 ferrous sulfate 325 mg (65 mg 325 mg PO BID 03/24/22 03/24/22 iron) tablet,delayed release furosemide 40 mg tablet 40 mg PO DAILY 03/24/22 03/24/22 guaifenesin 600 mg tablet, 600 mg PO Q12H 03/24/22 03/24/22 extended release 12 hr (Mucinex) hydrocodone 5 mg-acetaminophen 325 1 tablet PO Q6H PRN Severe Pain 03/24/22 03/24/22 mg tablet (Scale Score 7-10) hydrocortisone 20 mg tablet 20 mg PO DAILY 03/24/22 03/24/22 ipratropium bromide 0.02 % 1 ml inhalation DAILY PRN 03/24/22 03/24/22 solution for inhalation Shortness Of Breath lactulose 10 gram/15 mL oral 15 ml PO BID 03/24/22 03/24/22 solution lorazepam 1 mg tablet 1 mg PO Q6H 03/24/22 03/24/22 metoprolol tartrate 50 mg tablet 50 mg PO BID 03/24/22 03/24/22 multivitamin with minerals 1 tablet PO DAILY 03/24/22 03/24/22 ondansetron 4 mg disintegrating 4 mg PO Q6H PRN Nausea 03/24/22 03/24/22 tablet polyethylene glycol 3350 17 gram 17 g PO DAILY PRN Constipation 03/24/22 03/24/22 oral powder packet (Miralax) potassium chloride 20 mEq oral 20 meq PO DAILY 03/24/22 03/24/22 packet pregabalin 100 mg capsule 100 mg PO BID 03/24/22 03/24/22 risperidone 0.5 mg tablet 0.5 mg PO HS 03/24/22 03/24/22 sennosides 8.6 mg tablet (senna) 8.6 mg PO DAILY PRN Constipation 03/24/22 03/24/22 trazodone 50 mg tablet 0.5 tablet PO HS 03/24/22 03/24/22 Allergies Allergy/AdvReac Type Severity Reaction Status Date / Time No Known Allergies Allergy Unverified 10/02/15 21:16 Review of Systems Review of Systems: CONST: No fever. HEENT: No sore throat C/V: No chest pain RESP: No cough GI: No abdominal pain : No dysuria. M/S: No joint pain. SKIN: No rash. NEURO: [No headache or focal numbness or weakness] PSYCH: Mildly anxious PMFSH Past Medical History Medical History Anemia COPD (chronic obstructive pulmonary disease) Chronically O2 dependent on 4 L. Dementia Depression Essential (primary) hypertension Functional quadriplegia secondary to MS Generalized anxiety disorder Hyperlipidemia Multiple sclerosis Schizophrenia XGP (xanthogranulomatous pyelonephritis) Surgical History Surgical History H/O nephrostomy Family History Family History Mother Family history of multiple sclerosis Hypertension Father Patient's father is Social History Social History Social History: Patient is a ramos of the [facility]. Her guardian is Abe Burnham and can be reached at [phone]. Patient is a full code at this time Smoking status: Never smoker Second hand tobacco smoke exposure: Yes Alcohol intake: never Substance use: never Gender identity (if verbalized by the patient): Female Sexual Orientation (if Verbalized by the Patient): Straight or Heterosexual Spiritual care concerns: No
[2022-07-31 20:01] LABS: Basophils Percent Auto 0.4 % (0.2-1.2); Eosinophils Absolute Auto 0.2 K/mm3 (0-0.3); Eosinophils Percent Auto 1.9 % (0-4.4); Hematocrit 45.7 % (37.0-47.0); Hemoglobin 14.2 g/dL (12.0-15.0); Immature Granulocyte Absolute 0.04 K/mm3 (0.00-0.031); Immature Granulocyte Percent A 0.4 % (0-0.5); Mean Corpuscular HGB Conc 31.1 g/dl (32-36); Mean Corpuscular Hemoglobin 25.8 pg (26-34); Mean Corpuscular Volume 82.9 fl (80-100); Mean Platelet Volume 10.3 fl (7.4-10.4); Monocytes Absolute Auto 0.6 K/mm3 (0.1-0.6); Monocytes Percent Auto 6.2 % (2.6-8.5); Neutrophils Absolute Auto 6.9 K/mm3 (1.3-6.7); Neutrophils Percent Auto 69.1 % (45.5-73.1); Platelet Count Result 346 k/mm3 (150-375); Red Blood Count 5.51 M/mm3 (4.2-5.4); Red Cell Distribution Width 14.5 % (11.5-14.5)
[2022-07-31 20:07] LABS: Appearance Urine Cloudy (Clear); Bilirubin Urine Negative (Negative); Blood Urine 2+ (Negative); Color Urine Yellow (Yellow); Glucose Urine UA Negative (Negative); Ketones Urine Trace mg/dL (Negative); Leukocyte Esterase Ur 2+ LEU/UL (Negative); Nitrate Urine Positive (Negative); Protein Urine 2+ mg/dL (Negative); Urobilinogen Urine 0.2 mg/dL (<2.0); pH Urine 6.5 (5.0-9.0)
[2022-07-31 20:11] LABS: Anion Gap 12 mmol/L (8-16); Blood Urea Nitrogen 17 mg/dL (7-17); Calcium 9.4 mg/dL (8.4-10.2); Carbon Dioxide 22 mmol/L (22-30); Chloride 107 mmol/L (98-107); Estimated CRCL calculation 59 ml/min; Estimated Glomerular Filt Rate > 60; Glucose 116 mg/dL (65-110); Potassium 3.5 mmol/L (3.4-5.0); Sodium 141 mmol/L (137-145)
[2022-07-31] MEDS: SULFAMETHOXAZOLE/TRIMETHOPRIM 800/160 MG DS TABLET 1 TAB PO (20:28)
[2022-07-31 20:34] LABS: Bacteria Urine Trace /hpf; Mucus Urine Rare /lpf; RBC Urine 21-50 /hpf (0-2); Squamous Epithelial Cell Urine Many /hpf (Few); WBC Urine >75 /hpf
[2022-07-31 20:37] LABS: Add Urine Microscopic? YES
--- NOTE | 2022-07-31 20:49 | PC.NURSE ---
called [facility] to request transport. ETA 2129
--- NOTE | 2022-07-31 21:37 | PC.NURSE ---
called [facility] for ETA update. ETA 15 minutes
--- NOTE | 2022-07-31 22:07 | PC.NURSE ---
[facility] here.
== END 2022-07-31 22:00 ==
PROVIDERS: Emergency Provider Emergency Medicine; PCP Internal Medicine
DX: N39.0 Urinary tract infection, site not specified (principal); I10 Essential (primary) hypertension; G35 Multiple sclerosis; J44.9 Chronic obstructive pulmonary disease, unspecified; F03.90 Unspecified dementia, unspecified severity, without behavioral disturbance, psychotic disturbance, mood disturbance, and anxiety; E78.5 Hyperlipidemia, unspecified; F41.1 Generalized anxiety disorder; Z99.81 Dependence on supplemental oxygen; R93.0 Abnormal findings on diagnostic imaging of skull and head, not elsewhere classified; R91.8 Other nonspecific abnormal finding of lung field
CPT/HCPCS: 36415; 51701; 70450; 71045; 80048; 81001; 85025; 87086; 87088; 99284; A9270

== ENCOUNTER 2022-09-20 12:04 | Emergency (ER) | payer MEDICARE, MEDICAID, SELFPAY ==
[2022-09-20] VITALS (24 sets, daily range): BP systolic 58–143; BP diastolic 37–90; PULSE 113–142; RESP 25–36; TEMP 37.9–39.9; O2SAT 93–99
--- NOTE | ~2022-09-20 | XR_ITS ---
XR chest port-a-cath/central DATE: 09/20/2022 15:39 INDICATION: Central line placement TECHNIQUE: Portable AP chest on 09/20/2022 at 1534 hours COMPARISON: 09/20/2022 portable AP chest at 1249 hours FINDINGS: There is interval placement of a right internal jugular central venous catheter, the cathet er tip overlying the right atrium. No pneumothorax is detected. Persistent bibasilar infiltrate and/or atelectasis and moderately prominent elevation of the right le af of the diaphragm. Heart size appears within normal limits considering magnification associated with AP projection. Cannot exclude small right pleural effusion. Diffuse osteopenia. Levoscoliosis of the thoracolumbar spine. IMPRESSION: Placement of right internal jugular central venous catheter in right atrium; no evidence of pneumothorax Persistent prominent bibasilar infiltrate and/or atelectasis Reviewed, dictated and finalized at [facility]. Reviewed, dictated and finalized at location B. GING MANIPULATOR IMPRESSION: Placement of right internal jugular central venous catheter in righ t atrium; no evidence of pneumothorax Persistent prominent bibasilar infiltrate and/or atelectasis
--- NOTE | ~2022-09-20 | XR_ITS ---
Portable chest x-ray Comparison: 07/31/2022 Clinical History: Fever, altered mental status Findings: Small right pleural effusion is present. There is probable linear bibasilar scarring or at electasis. Cardiomediastinal silhouette is stable. Bones and soft tissues are unremarkable. Impression: Small right pleural effusion. Bibasilar scarring or atelectasis. Reviewed, dictated and finalized at location . 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 Bibasilar scarring or atelectasis.
--- NOTE | ~2022-09-20 | CT_ITS ---
Non-contrast CT scan of the Abdomen and Pelvis Clinical indication: Abdominal pain Technique: 5 mm axial scans were obtained through the abdomen and pelvis without intravenous or oral contrast. Dose reduction technique was used on this scan by utilizing automated exposure control and iterative reconstruction technique. The dose-length product (DLP) was 1603.30 mGy-cm. Findings: Images through the lung bases reveal minimal pleural effusions with bibasilar atelectatic change. Patient is status post right nephrectomy. There are numerous stones throughout the left renal collect ing system and in the right renal pelvis. There is a 1.0 x 0.6 cm stone at the left renal pelvis ([place] 1000 units). Probable minimal left hydronephrosis. The liver, spleen, pancreas, gallbladder, and adrenals appear normal. There is no aortic aneurysm. M ild periaortic lymphadenopathy present, especially on the left side. There is no evidence of bowel obstruction. Large amount of stool present throughout large bowel, comp atible with constipation. Minimal infiltration of perirectal fat noted, which could reflect stercoral proctitis. Images through the pelvis were performed. There is no evidence of ascites or lymphadenopathy. Urinary bladder unremarkable. No adnexal mass evident. Impression: Numerous left renal stones with a 1.0 x 0.6 cm stone in the left renal pelvis. Probable minimal left hydronephrosis. Noncontrast CT scan is insensitive for pyonephritis. If there is clinical concern for this diagnosis, then correlation with urinalysis is advised. Left periaortic lymphadenopathy. Findings could reflect reactive/inflammatory lymph nodes versus the possibility of lymphoma or other metastatic disease. Correlate clinically. Constipation with probable stercoral proctitis. Minimal pleural effusions. Reviewed, dictated and finalized at location M. TH INSPECTOR Impression: Numerous left renal stones with a 1.0 x 0.6 cm stone in the left renal pelvis. Probable minimal left hydronephrosis. Noncontrast CT scan is insensitive for py onephritis. If there is clinical concern for this diagnosis, then correlation w ith urinalysis is advised. Left periaortic lymphadenopathy. Findings could reflect reactive/inflammatory l ymph nodes versus the possibility of lymphoma or other metastatic disease. Lucia elate clinically. Constipation with probable stercoral proctitis. Minimal pleural effusions.
--- NOTE | ~2022-09-20 | CT_ITS ---
CT head without contrast Indication: Altered mental status COMPARISON: 07/31/2022 Technique: Serial scans were obtained through the brain without the administration of contrast. Dose reduction technique was used on this scan by utilizing automated exposure control and iterative recon struction technique. The dose-length product (DLP) was 681.00 mGy-cm. Findings: There is no evidence of intracranial hemorrhage, mass lesion, or acute infarct. The ventri cles and subarachnoid spaces are dilated, consistent with mild atrophy. Low attenuation regions are seen within the periventricular white matter bilaterally, likely representing changes from chronic mi crovascular ischemic disease. There is no evidence of edema, mass effect or midline shift. The visu alized paranasal sinuses and mastoid air cells are clear. Impression: No intracranial hemorrhage, mass, or acute infarct. Atrophy and chronic white matter changes, as above. Reviewed, dictated and finalized at [facility]. GRINDER Impression: No intracranial hemorrhage, mass, or acute infarct. Atrophy and chronic white matter changes, as above.
--- NOTE | 2022-09-20 12:32 | ECG_ITS ---
Measurements Intervals [place] Rate: 141 P: 218 [place]: 100 QRS: 1 QRSD: 142 T: 35 QT: 342 QTc: 525 Interpretive Statements ECTOPIC ATRIAL TACHYCARDIA WITH SHORT [place] INTERVAL, POSSIBLE ATRIAL FLUTTER LEFT BUNDLE BRANCH BLOCK [120+ ms QRS DURATION, 80+ ms Q/S IN V1/V2, 85+ ms R IN I/aVL/V5/V6] NO PREVIOUS ECG AVAILABLE FOR COMPARISON Electronically Signed On 09-20-2022 18:00:17 METAL WIRE COATING OPERATOR by Isrrael Rao M.D.
--- NOTE | 2022-09-20 12:48 | ED.GENADULT ---
HPI - General Adult General Chief complaint: Fever Stated complaint: ALOC, increased heart rate, fever Time Seen by Provider: 09/20/22 12:46 Source: RN notes reviewed History of Present Illness HPI narrative: Patient presents to emergency department from correction for altered mental status and fever. Patient is unable to give any history at this time secondary to her altered mental status. Per the staff the patient is normally awake and alert and was noted to have decreased mental status today. Patient was also noted to be febrile she received 1 L of fluid by EMS Related Data Home Medications Medication Instructions Recorded Confirmed Lactobacillus acidophilus 2,000 mmu cells PO BID 03/24/22 03/24/22 (Acidophilus capsule) acetaminophen 650 mg tablet 650 mg PO Q4H PRN Pain 03/24/22 03/24/22 atorvastatin 40 mg tablet 40 mg PO HS 03/24/22 03/24/22 citalopram 20 mg tablet 20 mg PO HS 03/24/22 03/24/22 clonidine HCl 0.1 mg tablet 0.1 mg PO DAILY 03/24/22 03/24/22 cyclobenzaprine 5 mg tablet 5 mg PO BID 03/24/22 03/24/22 ferrous sulfate 325 mg (65 mg 325 mg PO BID 03/24/22 03/24/22 iron) tablet,delayed release furosemide 40 mg tablet 40 mg PO DAILY 03/24/22 03/24/22 guaifenesin 600 mg tablet, 600 mg PO Q12H 03/24/22 03/24/22 extended release 12 hr (Mucinex) hydrocodone 5 mg-acetaminophen 325 1 tablet PO Q6H PRN Severe Pain 03/24/22 03/24/22 mg tablet (Scale Score 7-10) hydrocortisone 20 mg tablet 20 mg PO DAILY 03/24/22 03/24/22 ipratropium bromide 0.02 % 1 ml inhalation DAILY PRN 03/24/22 03/24/22 solution for inhalation Shortness Of Breath lactulose 10 gram/15 mL oral 15 ml PO BID 03/24/22 03/24/22 solution lorazepam 1 mg tablet 1 mg PO Q6H 03/24/22 03/24/22 metoprolol tartrate 50 mg tablet 50 mg PO BID 03/24/22 03/24/22 multivitamin with minerals 1 tablet PO DAILY 03/24/22 03/24/22 ondansetron 4 mg disintegrating 4 mg PO Q6H PRN Nausea 03/24/22 03/24/22 tablet polyethylene glycol 3350 17 gram 17 g PO DAILY PRN Constipation 03/24/22 03/24/22 oral powder packet (Miralax) potassium chloride 20 mEq oral 20 meq PO DAILY 03/24/22 03/24/22 packet pregabalin 100 mg capsule 100 mg PO BID 03/24/22 03/24/22 risperidone 0.5 mg tablet 0.5 mg PO HS 03/24/22 03/24/22 sennosides 8.6 mg tablet (senna) 8.6 mg PO DAILY PRN Constipation 03/24/22 03/24/22 trazodone 50 mg tablet 0.5 tablet PO HS 03/24/22 03/24/22 Allergies Allergy/AdvReac Type Severity Reaction Status Date / Time No Known Allergies Allergy Unverified 09/20/22 15:41 Review of Systems Review of Systems: ROS unobtainable: Yes unobtainable due to medical condition (Unable to obtain secondary to altered mental status) PMFSH Past Medical History Medical History Anemia COPD (chronic obstructive pulmonary disease) Chronically O2 dependent on 4 L. Dementia Depression Essential (primary) hypertension Functional quadriplegia secondary to MS Generalized anxiety disorder Hyperlipidemia Multiple sclerosis Schizophrenia XGP (xanthogranulomatous pyelonephritis) Surgical History Surgical History H/O nephrostomy Family History Family History Mother Family history of multiple sclerosis Hypertension Father Patient's father is Social History Social History Social History: Patient is a ramos of the [facility]. Her guardian is Abe Burnham and can be reached at [phone]. Patient is a full code at this time Smoking status: Never smoker Second hand tobacco smoke exposure: Yes Alcohol intake: never Substance use: never Gender identity (if verbalized by the patient): Female Sexual Orientation (if Verbalized by the Patient): Straight or Heterosexual Spiritual care concerns: No Agree to blood products: Yes Exam
[2022-09-20 12:53] LABS: Basophils Absolute Auto 0.1 K/mm3 (0.0-0.1); Basophils Percent Auto 0.4 % (0.2-1.2); Eosinophils Absolute Auto 0.1 K/mm3 (0-0.3); Eosinophils Percent Auto 0.5 % (0-4.4); Hematocrit 40.6 % (37.0-47.0); Hemoglobin 12.5 g/dL (12.0-15.0); Immature Granulocyte Percent A 2.1 % (0-0.5); Lymphocytes Percent Auto 3.2 % (18.3-44.2); Mean Corpuscular HGB Conc 30.8 g/dl (32-36); Mean Corpuscular Volume 84.4 fl (80-100); Mean Platelet Volume 10.4 fl (7.4-10.4); Monocytes Absolute Auto 0.3 K/mm3 (0.1-0.6); Monocytes Percent Auto 1.4 % (2.6-8.5); Neutrophils Absolute Auto 17.5 K/mm3 (1.3-6.7); Neutrophils Percent Auto 92.4 % (45.5-73.1); Platelet Count Result 223 k/mm3 (150-375); Red Blood Count 4.81 M/mm3 (4.2-5.4); Red Cell Distribution Width 16.2 % (11.5-14.5); White Blood Count 18.9 K/mm3 (4.5-10.0)
[2022-09-20] MEDS: SODIUM CHLORIDE 0.9% IV 1,000 ML 999 ML IV CONT ×2 (12:54→13:34)
[2022-09-20 13:03] LABS: INR 1.3; Prothrombin Time 15.5 Seconds (11.1-14.7)
[2022-09-20 13:04] LABS: Lactic Acid Reflex 3.4 mmol/L (0.7-2.0); Partial Thromboplastin Time 32.8 SECONDS (22.3-36.8)
[2022-09-20 13:22] LABS: Alanine Aminotransferase 34 U/L (6-35); Albumin Level 3.6 g/dL (3.5-5.1); Alkaline Phosphatase 277 U/L (38-126); Anion Gap 9 mmol/L (8-16); Aspartate Amino Transferase 48 U/L (14-36); Bilirubin,Total 0.8 mg/dL (0.2-1.3); Blood Urea Nitrogen 46 mg/dL (7-17); CRP 21.9 mg/dL (<1.0); Calcium 8.1 mg/dL (8.4-10.2); Carbon Dioxide 22 mmol/L (22-30); Chloride 109 mmol/L (98-107); Estimated CRCL calculation 23 ml/min; Estimated Glomerular Filt Rate 19; Glucose 138 mg/dL (65-110); Potassium 4.5 mmol/L (3.4-5.0); Sodium 140 mmol/L (137-145)
--- NOTE | 2022-09-20 13:35 | PC.NURSE ---
Patient weaned down to 3L of oxygen per verbal from Dr Gallegos.Patient 93% at this time. Patient still only responding to painful stimuli
[2022-09-20 13:40] LABS: Alveolar/Arterial O2 Gradient 71.2 mmHg; Base Excess ABG -8.6 mEq/l (+/-2.0); Carboxyhemoglobin 0.6 % THb (0-2.0); Fractional Inspired Oxygen 28 %; HCO3 ABG 15.8 mEq/l (22.0-26.0); Methemoglobin ABG 0.3 %THb (0-1.5); Oxygen Content ABG 16.4 %vol (16.0-22.0); Oxyhemoglobin 95.6 % THb (90.0-100.0); PCO2 ABG 29.4 mmHg (35.0-45.0); PO2 ABG 93.8 mmHg (80.0-100.0); PO2 FiO2 Ratio Arterial Blood 3.35 %; Reduced Hemoglobin 3.5 %THb (0-5.0); Total Hemoglobin 12.1 g/dL (12.0-18.0); pH ABG 7.348 (7.350-7.450)
--- NOTE | 2022-09-20 13:40 | PC.NURSE ---
provider aware of patient's blood pressure
[2022-09-20 13:41] LABS: Device ROOM AIR; Modified Allen's Test Pass; Site Drawn RIGHT RADIAL
[2022-09-20 14:17] LABS: Influenza A QL RT-PCR Negative (Negative); Influenza B QL RT-PCR Negative (Negative); SARS-CoV-2 RNA PCR Negative
[2022-09-20] MEDS: NOREPINEPHRINE 8 MG/D5W 250 ML 8 MG/250 ML BAG 9.38 MG IV CONT (14:36)
--- NOTE | 2022-09-20 14:54 | PC.NURSE ---
Dr Gallegos at bedside for central line placement.
--- NOTE | 2022-09-20 14:55 | PC.NURSE ---
Unable to place fernandez catheter in patient. Attempted by this RN, Lashawn RN, Nicky, RN and urology
--- NOTE | 2022-09-20 15:05 | WPDURCON ---
Assessment and Plan Assessment and plan (1) Staghorn kidney stones: Code(s): N20.0 - Calculus of kidney Status: Acute Assessment and Plan: Complicated patient with history of bilateral staghorn stones. Now has multiple stones in the left kidney and a question of a left renal pelvic stone with [place] [id number] and possible sepsis this will need to be diverted. Percutaneous nephrostomy tube is what ultimately will be required. Prior attempts here at [facility] have been a unsuccessful. Patient requires tertiary care center for placement as well as further management. I attempted to place a Naranjo catheter but patient is extremely contracted. Could not place a Naranjo at this time. Her bladder is nondistended and thus even suprapubic tube placement would be difficult. Have again recommended transfer to tertiary care center. Patient does not require immediate Naranjo placement given her incontinence and lack of bladder distention. (2) Incontinence: Code(s): R32 - Unspecified urinary incontinence Status: Acute Assessment and Plan: See above Urology Consult Note HPI Date Seen: 09/20/22 Time Seen: 15:06 Primary Care Provider: Ana Moore, Consult Narrative Reason for consult: Left renal calculus and inability to place Naranjo catheter Narrative: Yesenia Perez is a 57 year old female who was unable to give any history. She has a complicated history and is a correction patient. Patient actually has a history of bilateral staghorn stones who was transferred from [facility] last admission due to inability of placement of nephrostomy tube by Interventional Radiology. She subsequently underwent a right nephrectomy for nonfunctioning kidney by Dr. Martinez over was worried that this. She now presents with the elevated white count possible sepsis and a left staghorn stones with a 1 x 0.6 cm left renal pelvic stone. There was minimal hydro noted. Her bladder appears decompressed. Were asked to see her regarding placement of a Naranjo catheter. This was unsuccessful in the emergency room by nursing staff. Review of Systems Review of Systems: All systems reviewed & are unremarkable except as noted in HPI and below PMFSH Past Medical History Medical History Anemia COPD (chronic obstructive pulmonary disease) Chronically O2 dependent on 4 L. Dementia Depression Essential (primary) hypertension Functional quadriplegia secondary to MS Generalized anxiety disorder Hyperlipidemia Multiple sclerosis Schizophrenia XGP (xanthogranulomatous pyelonephritis) Surgical History Surgical History H/O nephrostomy Family History Family History Mother Family history of multiple sclerosis Hypertension Father Patient's father is Social History Social History Social History: Patient is a ramos of the [facility]. Her guardian is Abe Burnham and can be reached at [phone]. Patient is a full code at this time Smoking status: Never smoker Second hand tobacco smoke exposure: Yes Alcohol intake: never Substance use: never Gender identity (if verbalized by the patient): Female Sexual Orientation (if Verbalized by the Patient): Straight or Heterosexual Spiritual care concerns: No Agree to blood products: Yes Meds Home Medications and Allergies Home Medications Medication Instructions Recorded Confirmed Type Lactobacillus acidophilus 2,000 mmu cells PO BID 03/24/22 03/24/22 History (Acidophilus capsule) acetaminophen 650 mg tablet 650 mg PO Q4H PRN Pain 03/24/22 03/24/22 History atorvastatin 40 mg tablet 40 mg PO HS 03/24/22 03/24/22 History citalopram 20 mg tablet 20 mg PO HS 03/24/22 03/24/22 History clonidine
[2022-09-20] MEDS: SODIUM CHLORIDE 0.9% IV 1,000 ML 125 ML IV CONT (15:43)
[2022-09-20 15:50] LABS: Reflex Lactic Acid Yes or No Add Lactic
--- NOTE | 2022-09-20 16:35 | PC.NURSE ---
Spoke with Catie from [facility].
[2022-09-20 16:42] LABS: Lactic Acid 2.7 mmol/L (0.7-2.0)
--- NOTE | 2022-09-20 16:42 | PC.NURSE ---
Patient on room air at this time. O2 sat is 95%
[2022-09-20] MEDS: HYDROCORTISONE SODIUM SUCCINATE 100 MG/2 ML VIAL IV PUSH (17:17)
[2022-09-20] MEDS: CENTRAL LINE FLUSH 10 ML IV PUSH (18:01)
--- NOTE | 2022-09-20 18:15 | PC.NURSE ---
Spoke with JAVON Granados from facility for update on patient.
--- NOTE | 2022-09-20 20:17 | PC.NURSE ---
Pt was incontinent of stool. Pt cleansed, linens changed, and pt repositioned for comfort.
--- NOTE | 2022-09-20 22:46 | PC.NURSE ---
Called pharmacy x2 for antibiotic.
[2022-09-21] MEDS: HYDROCORTISONE SODIUM SUCCINATE 100 MG/2 ML VIAL IV PUSH (00:41)
[2022-09-21 00:44] VITALS: BP 125/93; PULSE 113
[2022-09-21 01:02] VITALS: BP 139/97; PULSE 114
[2022-09-21 01:23] VITALS: BP 140/97; PULSE 114
--- NOTE | 2022-09-21 01:27 | PC.NURSE ---
Updates called to Davi ALEJANDRO and Gabriella
[2022-09-21 01:29] VITALS: BP 140/97; PULSE 114; RESP 18; TEMP 36.6; O2SAT 98
== END 2022-09-21 01:30 | disposition short-term general hospital (02) ==
PROVIDERS: Emergency Medicine; Emergency Provider Emergency Medicine; PCP Internal Medicine
DX: A41.9 Sepsis, unspecified organism (principal); R65.21 Severe sepsis with septic shock; N39.0 Urinary tract infection, site not specified; G93.41 Metabolic encephalopathy; N20.0 Calculus of kidney; R32 Unspecified urinary incontinence; N28.9 Disorder of kidney and ureter, unspecified; Z20.822 Contact with and (suspected) exposure to COVID-19; J44.9 Chronic obstructive pulmonary disease, unspecified; F03.90 Unspecified dementia, unspecified severity, without behavioral disturbance, psychotic disturbance, mood disturbance, and anxiety; I10 Essential (primary) hypertension; G35 Multiple sclerosis; R53.2 Functional quadriplegia; E78.5 Hyperlipidemia, unspecified; F32.A Depression, unspecified; F20.9 Schizophrenia, unspecified; F41.1 Generalized anxiety disorder; Z99.81 Dependence on supplemental oxygen; I47.1 Supraventricular tachycardia; I44.7 Left bundle-branch block, unspecified; R94.31 Abnormal electrocardiogram [ECG] [EKG]; K59.00 Constipation, unspecified
CPT/HCPCS: 36415; 36556; 36600; 51703; 70450; 71045; 74176; 80053; 82375; 82805; 83050; 83605; 85025; 85610; 85730; 86140; 87040; 87077; 87186; 87636; 93005; 96361; 96365; 96366; 96367; 96368; 96375; 96376; 99291; C1751; J0131; J0743; J1720; J7030

== ENCOUNTER 2022-10-20 17:21 | Inpatient (IN) | payer MEDICARE, MEDICAID, SELFPAY ==
[2022-10-20] VITALS (10 sets, daily range): BP systolic 143–191; BP diastolic 92–118; PULSE 102–128; RESP 19–25; TEMP 37; O2SAT 94–100
--- NOTE | ~2022-10-20 | XR_ITS ---
EXAMINATION: XR chest 1V portable DATE: 10/20/2022 23:16 INDICATION: Sepsis. Central line placement. TECHNIQUE: A single frontal view of the chest was obtained. COMPARISON: Chest single view 09/20/2022, CT abdomen and pelvis 10/20/2022 FINDINGS: Again seen is mild elevation of right hemidiaphragm. There is mild atelectasis in the lower lung zones. No pleural effusion or pneumothorax. The heart size is normal. The nasogastric tube tip is in the distal stomach. A right internal jugular central venous catheter is seen with tip in the pr oximal right atrium. IMPRESSION: 1. Mild atelectasis in the lower lung zones. Reviewed, dictated and finalized at location A. MIGRATION LEAD
--- NOTE | ~2022-10-20 | XR_ITS ---
EXAMINATION: XR abdomen obstructive series DATE: 10/21/2022 07:56 INDICATION: Small bowel obstruction. TECHNIQUE: Upright and supine views of the abdomen on 3 radiographs were obtained. COMPARISON: CT abdomen and pelvis 10/20/2022 FINDINGS: There are dilated loops of small bowel. There is stool in the rectosigmoid, which is disten ded. The nasogastric tube tip is in the distal stomach. There are surgical clips from right nephrecto my. There is a left internal ureteral stent in expected position. There are innumerable stones in the left kidney. There are inserts in the fallopian tubes. There is internal fixation of proximal right femur. IMPRESSION: 1. Persistently dilated small bowel, consistent with small bowel obstruction. 2. Distended rectosigmoid containing stool. 3. Innumerable stones in left kidney with left internal ureteral stent in expected position. Reviewed, dictated and finalized at location A. STORER IMPRESSION: 1. Persistently dilated small bowel, consistent with small bowel obstruction. 2. Distended rectosigmoid containing stool. 3. Innumerable stones in left kidney with left internal ureteral stent in expec ramesh position.
--- NOTE | ~2022-10-20 | XR_ITS ---
EXAMINATION: XR abdomen NG/feed tube insert DATE: 10/20/2022 20:35 INDICATION: Nasogastric tube placement. TECHNIQUE: A supine view of the abdomen was obtained. COMPARISON: CT abdomen and pelvis 10/20/2022 FINDINGS: The lower abdomen is excluded. There are multiple dilated loops of small bowel. There is st ool in the rectosigmoid, which is distended. The nasogastric tube tip is in the stomach. There is mil d left hydronephrosis. There is a left internal ureteral stent in expected position. IMPRESSION: 1. Nasogastric tube tip in the stomach. 2. Dilated small bowel, consistent with small bowel obstruction. 3. Distended rectosigmoid with large volume of stool. 4. Mild left hydronephrosis with left internal ureteral stent in expected position. Reviewed, dictated and finalized at location A. S CUTTER IMPRESSION: 1. Nasogastric tube tip in the stomach. 2. Dilated small bowel, consistent with small bowel obstruction. 3. Distended rectosigmoid with large volume of stool. 4. Mild left hydronephrosis with left internal ureteral stent in expected posit ion.
--- NOTE | ~2022-10-20 | XR_ITS ---
EXAMINATION: XR abdomen/kub 1V DATE: 10/27/2022 09:06 INDICATION: Small bowel obstruction. TECHNIQUE: A supine view of the abdomen was obtained. COMPARISON: Abdomen radiographs 10/24/2022, small bowel series 10/23/2022 FINDINGS: There are multiple dilated loops of small bowel. There is oral contrast in the colon, which is normal in caliber. There are innumerable stones in left kidney. There is a left internal ureteral stent in expected position. There are inserts in the fallopian tubes. Surgical clips overlie the abd omen. There is internal fixation of proximal right femur. IMPRESSION: 1. Dilated proximal small bowel, consistent with small bowel obstruction. Reviewed, dictated and finalized at location A. SMAN/WOMAN
--- NOTE | ~2022-10-20 | XR_ITS ---
Supine views of the abdomen Clinical history: Small bowel obstruction Findings: Bowel gas pattern is nonspecific. NG tube in satisfactory position. Left ureteral stent pre sent, with numerous left renal stones. Right femoral intramedullary lore present with essentially comp lete absence or destructive change of the right femoral head. 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 Impression: Nonspecific bowel gas pattern, with NG tube in place. Left ureteral stent with numerous left renal stones. Severe chronic changes at both hip joints, as detailed above. Reviewed, dictated and finalized at location M. HMALLOW MACHINE WORKER Impression: Nonspecific bowel gas pattern, with NG tube in place. Left ureteral stent with numerous left renal stones. Severe chronic changes at both hip joints, as detailed above.
--- NOTE | ~2022-10-20 | XR_ITS ---
XR abdomen/kub 1V 10/28/2022 08:54 Indication: Small bowel obstruction Procedure: KUB Comparison: 10/27 and 10/24/2022 Findings: There is slightly improved small bowel dilation since prior study. There is residual contra st in the colon. Left internal ureteral stent is present. There are multiple left renal stones. Impression: 1: Improved small bowel obstruction. Reviewed, dictated and finalized at location A. TY RESEARCH ANALYST Impression: 1: Improved small bowel obstruction.
--- NOTE | ~2022-10-20 | CT_ITS ---
EXAMINATION: CT abdomen pelvis w con DATE: 10/20/2022 19:04 INDICATION: Constipation. Nausea and vomiting. TECHNIQUE: Computed tomography (CT) of the abdomen and pelvis was performed with 100 mL Omnipaque 350 intravenous contrast. Automated exposure control and iterative reconstruction technique were employe d. The dose-length product was 1091.90 mGy-cm. COMPARISON: CT abdomen and pelvis 09/20/2022 FINDINGS: The visualized portions of the lung bases demonstrate mild atelectasis. There is a small ri ght pleural effusion. The heart size is normal. There are coronary artery calcifications. No pericard ial effusion. There is a small sliding hiatal hernia. The liver, gallbladder, spleen, pancreas, and a drenal glands are normal. There are changes of right nephrectomy. There is cortical thinning of left kidney. There are areas of hyperattenuation in left kidney, consistent with pyelonephritis. There is a 7 mm cyst in left kidney. There are innumerable stones in left kidney. There is mild left hydroneph rosis. There is a left internal ureteral stent in expected position. There is distention of the recto sigmoid, which is filled with stool. There is wall thickening of the rectum. There are multiple dilat ed loops of small bowel with transition point in right abdomen. There is a small volume of ascites. T here is mild left para-aortic lymphadenopathy, likely reactive. 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 There is internal fixation of right femur. There is chronic height loss of multiple vertebral bodies. IMPRESSION: 1. Left-sided pyelonephritis. Mild left hydronephrosis with innumerable left kidney stones and left i nternal ureteral stent in expected position. 2. Small bowel obstruction with transition point in right abdomen. 3. Stercoral colitis. 4. Small right pleural effusion. 5. Small volume of ascites. Reviewed, dictated and finalized at location A. ER OPERATOR BRICK IMPRESSION: 1. Left-sided pyelonephritis. Mild left hydronephrosis with innumerable left ki dney stones and left internal ureteral stent in expected position. 2. Small bowel obstruction with transition point in right abdomen. 3. Stercoral colitis. 4. Small right pleural effusion. 5. Small volume of ascites.
--- NOTE | ~2022-10-20 | XR_ITS ---
EXAMINATION: XR sm bowel follow through DATE: 10/23/2022 12:45 INDICATION: Small bowel obstruction. TECHNIQUE: Oral contrast was administered, and a time course of radiographs of the abdomen was obtain ed. Fluoroscopy of the small bowel was not performed. Fluoroscopy exposure time was 0 minutes. The to david number of images was 7. COMPARISON: CT abdomen and pelvis 10/20/2022 FINDINGS: The nasogastric tube tip is in the stomach. There are multiple dilated loops of proximal small bowel. The distal small bowel is decompressed. Transit time from the stomach to proximal colon was approxim ately 3 hours. There are surgical clips in the abdomen. There is a left internal ureteral stent in ex pected position. There are stones in left kidney. There are inserts in the fallopian tubes. There is instrumentation of proximal right femur. IMPRESSION: 1. Dilated proximal small bowel with passage of contrast to the colon in 3 hours, consistent with par tial small bowel obstruction. 2. Left-sided kidney stones with left internal ureteral stent in expected position. Reviewed, dictated and finalized at location A. SUPPORT SPECIALIST IMPRESSION: 1. Dilated proximal small bowel with passage of contrast to the colon in 3 hour s, consistent with partial small bowel obstruction. 2. Left-sided kidney stones with left internal ureteral stent in expected posit ion.
--- NOTE | ~2022-10-20 | XR_ITS ---
Supine and upright views of the abdomen Clinical history: Small bowel obstruction COMPARISON: 10/23/2022 Findings: Bowel gas pattern is nonspecific. Oral contrast present throughout large bowel. No definite evidence for obstruction or free air. Left ureteral stent present. NG tube in place. No abnormal mas s lesion or calcification is seen. Stable chronic changes of both hip joints. Impression: Nonspecific bowel gas pattern with oral contrast throughout large bowel. Left ureteral stent. Reviewed, dictated and finalized at location . PROVIDER Impression: Nonspecific bowel gas pattern with oral contrast throughout large bowel. Left ureteral stent.
--- NOTE | ~2022-10-20 | XR_ITS ---
EXAMINATION: XR abdomen/kub 1V DATE: 10/22/2022 05:52 INDICATION: Small bowel obstruction. TECHNIQUE: A supine view of the abdomen on 2 radiographs was obtained. COMPARISON: Abdomen radiographs 10/21/2022 FINDINGS: There are multiple dilated loops of small bowel. There is a moderate volume of stool in the colon. There are inserts in the fallopian tubes. There are surgical clips in the abdomen. There are innumerable stones in left kidney. There is a left internal ureteral stent in expected position. The nasogastric tube tip is in the distal stomach. There is a catheter tip in right atrium. There is inte rnal fixation of proximal right femur. IMPRESSION: 1. Dilated small bowel, consistent with small bowel obstruction. 2. Stones in left kidney with left internal ureteral stent in expected position. Reviewed, dictated and finalized at location A. D OPERATIONS FARM MANAGER IMPRESSION: 1. Dilated small bowel, consistent with small bowel obstruction. 2. Stones in left kidney with left internal ureteral stent in expected position .
[2022-10-20] MEDS: ONDANSETRON INJ 4 MG/2 ML VIAL IV PUSH (17:48)
[2022-10-20 17:51] LABS: Basophils Absolute Auto 0.1 K/mm3 (0.0-0.1); Basophils Percent Auto 0.3 % (0.2-1.2); Eosinophils Absolute Auto 0.4 K/mm3 (0-0.3); Eosinophils Percent Auto 1.9 % (0-4.4); Hematocrit 40.9 % (37.0-47.0); Hemoglobin 12.7 g/dL (12.0-15.0); Immature Granulocyte Absolute 0.13 K/mm3 (0.00-0.031); Immature Granulocyte Percent A 0.6 % (0-0.5); Lymphocytes Absolute Auto 2.09 K/mm3 (0.9-3.2); Lymphocytes Percent Auto 9.2 % (18.3-44.2); Mean Corpuscular HGB Conc 31.1 g/dl (32-36); Mean Corpuscular Hemoglobin 25.8 pg (26-34); Mean Corpuscular Volume 83.1 fl (80-100); Monocytes Absolute Auto 0.7 K/mm3 (0.1-0.6); Monocytes Percent Auto 3.1 % (2.6-8.5); Neutrophils Absolute Auto 19.2 K/mm3 (1.3-6.7); Neutrophils Percent Auto 84.9 % (45.5-73.1); Platelet Count Result 346 k/mm3 (150-375); Red Blood Count 4.92 M/mm3 (4.2-5.4); Red Cell Distribution Width 18.4 % (11.5-14.5); White Blood Count 22.6 K/mm3 (4.5-10.0)
[2022-10-20 18:00] LABS: Chloride 108 mmol/L (98-107)
[2022-10-20 18:03] LABS: Lactic Acid Reflex 1.1 mmol/L (0.7-2.0)
[2022-10-20 18:08] LABS: Alanine Aminotransferase 18 U/L (6-35); Alkaline Phosphatase 222 U/L (38-126); Anion Gap 7 mmol/L (8-16); Aspartate Amino Transferase 21 U/L (14-36); Bilirubin,Total 0.6 mg/dL (0.2-1.3); Blood Urea Nitrogen 27 mg/dL (7-17); Carbon Dioxide 27 mmol/L (22-30); Estimated Glomerular Filt Rate 46; Glucose 129 mg/dL (65-110); Lipase 89 U/L (23-300); Potassium 4.3 mmol/L (3.4-5.0); Sodium 142 mmol/L (137-145)
--- NOTE | 2022-10-20 18:44 | ED.NAVMDI ---
HPI - Nausea/Vomiting/Diarrhea General Chief complaint: Nausea/Vomiting/Diarrhea Stated complaint: N/V Time Seen by Provider: 10/20/22 17:33 History of Present Illness HPI Narrative: 57-year-old female history of multiple sclerosis [facility] room for evaluation of no bowel movement for 8 days. Patient states she began experiencing nausea and vomiting this morning. Patient states that she has not experiencing flatulence in over a week. Has been voiding on a regular basis. Denies fevers. Related Data Home Medications Medication Instructions Recorded Confirmed Lactobacillus acidophilus 2,000 mmu cells PO BID 03/24/22 03/24/22 (Acidophilus capsule) acetaminophen 650 mg tablet 650 mg PO Q4H PRN Pain 03/24/22 03/24/22 atorvastatin 40 mg tablet 40 mg PO HS 03/24/22 03/24/22 citalopram 20 mg tablet 20 mg PO HS 03/24/22 03/24/22 clonidine HCl 0.1 mg tablet 0.1 mg PO DAILY 03/24/22 03/24/22 cyclobenzaprine 5 mg tablet 5 mg PO BID 03/24/22 03/24/22 ferrous sulfate 325 mg (65 mg 325 mg PO BID 03/24/22 03/24/22 iron) tablet,delayed release furosemide 40 mg tablet 40 mg PO DAILY 03/24/22 03/24/22 guaifenesin 600 mg tablet, 600 mg PO Q12H 03/24/22 03/24/22 extended release 12 hr (Mucinex) hydrocodone 5 mg-acetaminophen 325 1 tablet PO Q6H PRN Severe Pain 03/24/22 03/24/22 mg tablet (Scale Score 7-10) hydrocortisone 20 mg tablet 20 mg PO DAILY 03/24/22 03/24/22 ipratropium bromide 0.02 % 1 ml inhalation DAILY PRN 03/24/22 03/24/22 solution for inhalation Shortness Of Breath lactulose 10 gram/15 mL oral 15 ml PO BID 03/24/22 03/24/22 solution lorazepam 1 mg tablet 1 mg PO Q6H 03/24/22 03/24/22 metoprolol tartrate 50 mg tablet 50 mg PO BID 03/24/22 03/24/22 multivitamin with minerals 1 tablet PO DAILY 03/24/22 03/24/22 ondansetron 4 mg disintegrating 4 mg PO Q6H PRN Nausea 03/24/22 03/24/22 tablet polyethylene glycol 3350 17 gram 17 g PO DAILY PRN Constipation 03/24/22 03/24/22 oral powder packet (Miralax) potassium chloride 20 mEq oral 20 meq PO DAILY 03/24/22 03/24/22 packet pregabalin 100 mg capsule 100 mg PO BID 03/24/22 03/24/22 risperidone 0.5 mg tablet 0.5 mg PO HS 03/24/22 03/24/22 sennosides 8.6 mg tablet (senna) 8.6 mg PO DAILY PRN Constipation 03/24/22 03/24/22 trazodone 50 mg tablet 0.5 tablet PO HS 03/24/22 03/24/22 Allergies Allergy/AdvReac Type Severity Reaction Status Date / Time No Known Allergies Allergy Verified 10/20/22 17:29 Review of Systems Review of Systems: CONSTITUTIONAL: Denies fever, chills, or sweats. EYES: Denies visual changes, redness, or discharge. ENT: Denies rhinorrhea, congestion, sore throat, or otalgia. CARDIOVASCULAR: Denies chest pain, palpitations, or edema. RESPIRATORY: Denies cough or dyspnea. GASTROINTESTINAL: Reports abdominal pain, nausea, vomiting, and constipation GENITOURINARY: Denies dysuria or hematuria. SKIN: Denies rash or itching. MUSCULOSKELETAL: Denies back pain, joint pain, or myalgia. NEUROLOGIC: Denies headache, numbness, dizziness, or weakness. PSYCHIATRIC: Denies anxiety or depression. [facility] Past Medical History Medical History Anemia COPD (chronic obstructive pulmonary disease) Chronically O2 dependent on 4 L. Dementia Depression Essential (primary) hypertension Functional quadriplegia secondary to MS Generalized anxiety disorder Hyperlipidemia Multiple sclerosis Schizophrenia XGP (xanthogranulomatous pyelonephritis) Surgical History Surgical History H/O nephrostomy Family History Family History Mother Family history of multiple sclerosis Hypertension Father Patient's father is Social History Social History Social History: Patient is a ramos of the [facility]. He
[2022-10-20] MEDS: SODIUM CHLORIDE 0.9% IV 1,000 ML 999 ML IV CONT ×3 (19:41→22:54)
[2022-10-20] MEDS: cefTRIAXone 1 GM VIAL IM (19:45)
[2022-10-20 19:52] LABS: Bacteria Urine Trace /hpf; RBC Urine 51-75 /hpf (0-2); Squamous Epithelial Cell Urine Moderate /hpf (Few); WBC Clumps Urine Present /HPF; WBC Urine >75 /hpf
[2022-10-20 19:54] LABS: Appearance Urine Clear (Clear); Bilirubin Urine Negative (Negative); Blood Urine 1+ (Negative); Color Urine Yellow (Yellow); Glucose Urine UA Negative (Negative); Ketones Urine Negative (Negative); Leukocyte Esterase Ur 2+ LEU/UL (Negative); Nitrate Urine Positive (Negative); Protein Urine 3+ mg/dL (Negative); Urobilinogen Urine 0.2 mg/dL (<2.0); pH Urine 8.5 (5.0-9.0)
[2022-10-20 19:58] LABS: Add Urine Microscopic? YES
--- NOTE | 2022-10-20 20:25 | PC.NURSE ---
unable to obtain blood cultures after multiple attempts. phlebotomy called and will come attempt.
--- NOTE | 2022-10-20 20:37 | PC.NURSE ---
Per Provider Ronan okay to leave fernandez catheter inplace.
[2022-10-20 20:40] LABS: Influenza A QL RT-PCR Negative (Negative); Influenza B QL RT-PCR Negative (Negative); RSV RNA, RT-PCR Negative (Negative); SARS-CoV-2 RNA PCR Negative
--- NOTE | 2022-10-20 21:47 | PC.NURSE ---
Unable to obtain second set of cultures. Per SOFTWARE SALES REPRESENTATIVE Ronan okay to start antibiotics at this time.
--- NOTE | 2022-10-20 22:32 | ECG_ITS ---
Measurements Intervals [place] Rate: 125 P: 31 PA: 132 QRS: -6 QRSD: 75 T: 30 QT: 336 QTc: 484 Interpretive Statements SINUS TACHYCARDIA LOW QRS VOLTAGE IN PRECORDIAL LEADS LEFT VENTRICULAR HYPERTROPHY WITH ST-T CHANGE ANTERIOR INFARCT, AGE INDETERMINATE INFERIOR INFARCT, AGE INDETERMINATE BASELINE WANDER- I, II, III, AVR, AVL, AVF ABNORMAL ECG COMPARED TO ECG 09/20/2022 12:42:31 SINUS TACHYCARDIA NOW PRESENT MYOCARDIAL INFARCT FINDING NOW PRESENT Electronically Signed On 10-21-2022 9:57:30 PIECE GOODS CLERK by Murali Osei D.O.
--- NOTE | 2022-10-20 22:37 | PM.IMHP ---
H&P: HPI History of Present Illness Date/Time: 10/20/22 22:37 Chief Complaint: Nausea and vomiting Narrative: 57-year-old female with a past medical history of dementia due to schizophrenia, multiple sclerosis with functional quadriplegia, COPD, essential hypertension, bilateral staghorn kidney stones status post right nephrectomy with history of ESBL UTI and bacteremia with recent nephrostomy tubes and ureteral stent in place who presented to the ER from [facility] via EMS due to multiple bouts of emesis. The patient had recently been admitted in March and in August due to UTI and displaced nephrostomy tubes. She had septic shock in August had ID place and was transferred to [facility]. She was discharged from the hospital on the August and completed her antibiotic therapy with Primaxin on the 02 of October. She presented back to the ER today with emesis, tachycardia, tachypnea, and leukocytosis. She was afebrile on presentation. CT demonstrated evidence of small-bowel obstruction and pyelonephritis of the left kidney with stent in place. the patient had evidence of fecal in appearing emesis. She had NG tube placed in despite NG tube placement has continued to have fecal in emesis. Nursing staff has tried to reposition the NG tube multiple times and has flushed NG tube. They will get a small amount of return from the NG but not as much out as they put in. The patient is oriented to self only. She is conversational and follows some commands. However she can only tell me that her belly hurts and that she feels like she is going to vomit. She denies any dysuria but she is chronically incontinent of urine. A Naranjo catheter was placed in the ER. she reports that she feels sick. On exam she has to tachycardia and she has chronic contractures of her lower extremities. She has no open wounds. The patient cannot tell me along she has been vomiting But nursing staff reported the patient had been vomiting since 16:30.. intermediate staff reported the patient had not had a bowel movement in 8 days. The patient reportedly told the ER staff that she has not had flatulence and a week. She has been afebrile. Review of Systems Review of Systems: Review of systems performed with pertinent positives and negatives per HPI. However limited due to the patient's baseline dementia and schizophrenia. [facility] Past Medical History Medical History Anemia COPD (chronic obstructive pulmonary disease) Chronically O2 dependent on 4 L. Dementia Depression Essential (primary) hypertension Functional quadriplegia secondary to MS Generalized anxiety disorder History of ESBL E. coli infection Hyperlipidemia Multiple sclerosis Schizophrenia Ureteral stent present XGP (xanthogranulomatous pyelonephritis) Surgical History Surgical History History of right nephrectomy Due to staghorn colliculus with NM perfusion scan demonstrating absent kidney function Family History Family History Mother Family history of multiple sclerosis Hypertension Father Patient's father is Social History Social History (Updated 10/20/22 @ 22:56 by Tammi Feng DO) Social History: Patient is a ramos of the [facility]. Her guardian is Abe Burnham and can be reached at [phone]. Patient is a full code at this time Smoking packs per day: 0.5 Smoking cigarettes per day: 10.0 Years smoked: 1 Smoking pack-years: 0.50 Smoking status: Former smoker Second hand tobacco smoke exposure: Yes Alcohol intake: never Substance use: never Lack of Transportation: No Lack of Food: Never True Current Housing: I Have Housing Concerned About Future Housing: No Difficulty Paying Gas/Electric Bills: No Difficulty Paying for Meds: No Currently
[2022-10-20] MEDS: METOPROLOL TARTRATE INJ 5 MG/5 ML VIAL IV PUSH ×2 (22:53→23:43)
[2022-10-20] MEDS: hydrALAZINE HCL 20 MG/ML VIAL 10 MG IV PUSH (23:35)
[2022-10-20] MEDS: metroNIDAZOLE 500 MG/ISO 100ML 500 MG/100 ML BAG 100 MG IVPB (23:36)
[2022-10-21] VITALS (12 sets, daily range): BP systolic 135–180; BP diastolic 88–110; PULSE 121–146; RESP 16–22; TEMP 34.7–36.3; O2SAT 94–96; BMI 30.6; BMI 31.1
[2022-10-21 00:22] LABS: Lactic Acid Reflex 1.2 mmol/L (0.7-2.0)
[2022-10-21 00:25] LABS: CRP 3.6 mg/dL (<1.0)
--- NOTE | 2022-10-21 00:40 | PC.NURSE ---
Patient received to unit via stretcher. Oriented to room, given a bath as patient was covered in emesis and stool. NG hooked up to intermittent suction. Naranjo intact and draining at bedside. Dr. Cox at bedside reviewing patient's plan of care with this RN. Patient compliant with cares at this time.
[2022-10-21 00:44] LABS: Procalcitonin 0.1 ng/mL
[2022-10-21] MEDS: SODIUM CHLORIDE 0.9% IV 1,000 ML 150 ML IV CONT ×4 (00:55→22:29)
[2022-10-21] MEDS: cloNIDine 0.1 MG/24 HR PATCH 1 PATCH TRANSDERM (00:55)
[2022-10-21] MEDS: BISACODYL 10 MG SUPPOSITORY RECTAL ×2 (00:56→09:42)
[2022-10-21] MEDS: MORPHINE SULFATE (*CRX) 2 MG/ML INJ IV PUSH ×3 (01:11→22:22)
--- NOTE | 2022-10-21 01:13 | ADMGEN ---
This patient, Yesenia Perez, was admitted to [facility] Surg Room 329-01. Patient/family oriented to hospital policies and general routines including ID bracelet, bed and alarms, visiting hours, pain management, procedures, bathroom and other care routines, personal items, smoking policy, room service/diet, and visiting hours. Information on how to activate the Rapid Response Team has been discussed. Patient/Family are encouraged to report perceived risks to care and to ask questions if they do not understand what they are told or what they should do.
--- NOTE | 2022-10-21 03:18 | PC.NURSE ---
Dr. Feng made aware that NG only drains for a short period of time then stops due to increased sediment of what appears to be fecal material coming out of tube. Also that patient has not had any noted results from suppository that was given but is passing some flatus. Will contact housekeeping aide to see if a bigger gauge of NG tubing is available to insert for a more beneficial intervention.
[2022-10-21] MEDS: METOPROLOL TARTRATE INJ 5 MG/5 ML VIAL IV PUSH ×3 (05:57→17:09)
[2022-10-21] MEDS: metroNIDAZOLE 500 MG/ISO 100ML 500 MG/100 ML BAG 100 MG IVPB ×3 (05:57→22:24)
--- NOTE | 2022-10-21 06:37 | PC.NURSE ---
Patient resting quietly in bed with NG patent. Arouses easily after morphine with good result in pain control. Patient stomach still feels taut and no bowel sounds. Naranjo draining dark ean urine. BP continues to remain high, patient was medicated with MD orders. supervisor cigarette making department called back with inquiry to larger gauge NG. Hospital wide, we do not carry anything different. NG flushed frequently and prn attempting to dislodge large sediment to help with drainage. Suction is intermittent and clogs off frequently. Patient has not had any BMs at this time. Otherwise patient has rested since admission and pain med but condition remains guarded.
[2022-10-21] MEDS: ENOXAPARIN 40 MG/0.4 ML SYRINGE SUB-Q (09:40)
[2022-10-21] MEDS: PANTOPRAZOLE SODIUM IV 40 MG VIAL IV PUSH (09:42)
--- NOTE | 2022-10-21 09:43 | PC.NURSE ---
Provider made aware that first set of blood cultures were obtained in ER and antibiotics were started before second set of blood cultures were obtained. Per hospitalist, draw 2nd set of blood cultures even though antibiotics have been started. [employer] made aware
--- NOTE | 2022-10-21 10:12 | PM.CNGS ---
Assessment and Plan Assessment and plan (1) SBO (small bowel obstruction): Code(s): K56.609 - Unspecified intestinal obstruction, unspecified as to partial versus complete obstruction Status: Acute Assessment and Plan: Very unfortunate situation for this patient. For now, recommend NG tube suction, NPO except ice chips, IV fluids. Follow serial exam and plain films of the abdomen. Hopefully small-bowel obstruction will resolve without surgery. Will follow along with you. (2) Fecal impaction in rectum: Code(s): K56.41 - Fecal impaction Status: Acute Assessment and Plan: Patient has massive fecal impaction extending beyond the rectum and showing evidence of stercoral colitis on CT. Will give soapsuds enema today. This will have to be addressed per rectum rather than any laxatives to avoid colonic perforation which would not be survivable. This is likely the cause of the 8 days of obstipation. (3) Sepsis: Code(s): A41.9 - Sepsis, unspecified organism Status: Acute Assessment and Plan: Meet sepsis criteria per hospitalist. Possibly due to pyelonephritis. Has very complicated renal disease with kidney stones and history of previous nephrectomy. Urology is seeing patient as well. History of Present Illness Consult details Consult date: 10/21/22 Reason for consult: abdominal pain Requesting physician: Demetrius Mabry APRN Narrative: Patient is an unfortunate 57-year-old woman with advanced MS and functional quadriplegia. She resides in a long-term. She also carries a diagnosis of schizophrenia. On top of these problems, she has severe problems with staghorn calculi and renal stones. She had a right nephrectomy earlier in 2021. She still has multiple stones in her left kidney and a nephrostomy tube. She came to the emergency room yesterday from the long-term with diffuse abdominal pain nausea and vomiting. It was also reported that she had no bowel movement for 8 days. Evaluation in the emergency room and by the hospitalist suggest that she has sepsis and her CT scan showed pyelonephritis of her remaining left kidney. She has been afebrile. Urology has been consulted. CT scan also showed evidence of a small-bowel obstruction and huge fecal impaction. Patient did see seen now in consultation regarding her small-bowel obstruction. She does have scars on her abdomen but aside from her nephrectomy, no other abdominal surgery history is known. Nasogastric tube was placed in the emergency room but patient continues to complain of abdominal pain this morning. She has not noticed any change in her abdominal complaints since last night. Review of Systems Review of Systems: All systems reviewed & are unremarkable except as noted in HPI and below (HPI and those items noted below) Constitutional: Constitutional: Reports as per HPI, Denies chills and Denies fever(s) Cardiovascular: Cardiovascular: Denies chest pain, Denies diaphoresis, Denies dyspnea and Denies paroxysmal nocturnal dyspnea Respiratory: Respiratory: Denies chest congestion, Denies cough and Denies dyspnea Gastrointestinal: Gastrointestinal: Reports as per HPI, Reports abdominal pain, Reports nausea and Reports vomiting Integumentary/Breasts: Skin/Breast: Denies lesions and Denies rash PMFSH Past Medical History Medical History Anemia COPD (chronic obstructive pulmonary disease) Chronically O2 dependent on 4 L. Dementia Depression Essential (primary) hypertension Functional quadriplegia secondary to MS Generalized anxiety disorder History of ESBL E. coli infection Hyperlipidemia Multiple sclerosis Schizophrenia Ureteral stent present XGP (xanthogranulomatous pyelonephritis) Surgical History Surgical History History of right nephrectomy Due to staghorn colliculus with NM perfusion scan demonstra
[2022-10-21 10:15] LABS: Basophils Percent Auto 0.2 % (0.2-1.2); Eosinophils Absolute Auto 0.2 K/mm3 (0-0.3); Eosinophils Percent Auto 1.3 % (0-4.4); Hematocrit 40.2 % (37.0-47.0); Hemoglobin 12.2 g/dL (12.0-15.0); Immature Granulocyte Absolute 0.04 K/mm3 (0.00-0.031); Immature Granulocyte Percent A 0.3 % (0-0.5); Lymphocytes Absolute Auto 0.94 K/mm3 (0.9-3.2); Lymphocytes Percent Auto 5.9 % (18.3-44.2); Mean Corpuscular HGB Conc 30.3 g/dl (32-36); Mean Corpuscular Hemoglobin 25.4 pg (26-34); Mean Corpuscular Volume 83.8 fl (80-100); Mean Platelet Volume 10.8 fl (7.4-10.4); Monocytes Absolute Auto 0.5 K/mm3 (0.1-0.6); Monocytes Percent Auto 3.2 % (2.6-8.5); Neutrophils Absolute Auto 14.3 K/mm3 (1.3-6.7); Neutrophils Percent Auto 89.1 % (45.5-73.1); Platelet Count Result 328 k/mm3 (150-375); Red Cell Distribution Width 18.7 % (11.5-14.5)
[2022-10-21 10:21] LABS: Alanine Aminotransferase 15 U/L (6-35); Albumin Level 3.4 g/dL (3.5-5.1); Alkaline Phosphatase 178 U/L (38-126); Anion Gap 5 mmol/L (8-16); Aspartate Amino Transferase 21 U/L (14-36); Bilirubin,Total 0.7 mg/dL (0.2-1.3); Blood Urea Nitrogen 20 mg/dL (7-17); Calcium 8.2 mg/dL (8.4-10.2); Carbon Dioxide 26 mmol/L (22-30); Chloride 113 mmol/L (98-107); Estimated CRCL calculation 55 ml/min; Estimated Glomerular Filt Rate 57; Glucose 136 mg/dL (65-110); Potassium 3.7 mmol/L (3.4-5.0); Sodium 144 mmol/L (137-145)
--- NOTE | 2022-10-21 10:30 | WPDURCON ---
Assessment and Plan Assessment and plan (1) Pyelonephritis: Code(s): N12 - Tubulo-interstitial nephritis, not specified as acute or chronic Status: Acute (2) Staghorn kidney stones: Code(s): N20.0 - Calculus of kidney Status: Acute (3) Ureteral stent present: Code(s): Z96.0 - Presence of urogenital implants Status: Acute (4) XGP (xanthogranulomatous pyelonephritis): Code(s): N11.8 - Other chronic tubulo-interstitial nephritis Status: Acute (5) Solitary left kidney: Status: Acute Assessment and Plan: Solitary left kidney with a large calculus that appears to be stented and functioning well. She has good urine output and her serum creatinine is normal. Presumed left pyelonephritis. Agree with Imipenem pending culture results. GI issues (SBO and fecal impaction) mgmt. per Dr. Branham. Urology Consult Note HPI Date Seen: 10/21/22 Requesting Physician: Tammi Feng DO Primary Care Provider: Ana Moore, Consult Narrative Narrative: Yesenia Perez is a 57 year old female with advanced multiple sclerosis and schizophrenia who is present of a correction. She presented to the emergency department with complaints of abdominal pain reports of not having had a bowel movement for 8 days. She has a known history of bilateral staghorn calculi and is status post right nephrectomy (for stones and xanthogranulomatos pyelonephritis) in the remote past. She was just seen as an inpatient by Dr. Padilla approximately 3 weeks ago. At that time she had a large stone in her left kidney. He was unable to place a urethral catheter because of her contractions and it was recommended she be transferred for urological care elsewhere. Somewhere in the interval, among certain where, she has undergone placement of a left ureteral stent and Naranjo catheter. Both appear to be draining well without significant hydronephrosis and good clear urine output via her Naranjo catheter. She is admitted a presumptive diagnosis of left pyelonephritis and small bowel obstruction. Review of Systems Review of Systems: ROS unobtainable: Yes unobtainable due to mental status PMFSH Past Medical History Medical History Anemia COPD (chronic obstructive pulmonary disease) Chronically O2 dependent on 4 L. Dementia Depression Essential (primary) hypertension Functional quadriplegia secondary to MS Generalized anxiety disorder History of ESBL E. coli infection Hyperlipidemia Multiple sclerosis Schizophrenia Ureteral stent present XGP (xanthogranulomatous pyelonephritis) Surgical History Surgical History History of right nephrectomy Due to staghorn colliculus with NM perfusion scan demonstrating absent kidney function Family History Family History Mother Family history of multiple sclerosis Hypertension Father Patient's father is Social History Social History (Updated 10/20/22 @ 22:56 by Tammi Feng DO) Social History: Patient is a ramos of the [facility]. Her guardian is Abe Burnham and can be reached at [phone]. Patient is a full code at this time Smoking packs per day: 0.5 Smoking cigarettes per day: 10.0 Years smoked: 1 Smoking pack-years: 0.50 Smoking status: Former smoker Second hand tobacco smoke exposure: Yes Alcohol intake: never Substance use: never Lack of Transportation: No Lack of Food: Never True Current Housing: I Have Housing Concerned About Future Housing: No Difficulty Paying Gas/Electric Bills: No Difficulty Paying for Meds: No Currently Unemployed: No Education: High School Diploma/GED Difficulty w/ Childcare or Family Care: No Living arrangements: correction 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ion: other Additional occupation/education com
--- NOTE | 2022-10-21 14:56 | P.PNIM_ITS ---
Progress Note: A&P Assessment and Plan (1) SBO (small bowel obstruction): Code(s): K56.609 - Unspecified intestinal obstruction, unspecified as to partial versus complete obstruction Status: Acute Assessment and Plan: Patient presented to the ED on 10/20/2022 with nausea vomiting. * CT abdomen pelvis: Small bowel obstruction with transition point in right abdomen, Stercoral colitis, small right pleural effusion, small volume ascites * NG tube placed * General surgery consulted * NPO except for ice chips * No surgery planned so far (2) Fecal impaction: Code(s): K56.41 - Fecal impaction Status: Acute Assessment and Plan: See above * Dr. Branham, General surgery, following patient * Patient given soapsuds enema today * Advised to avoid laxatives to avoid colonic perforation * Patient has known obstipation of 8 days which is likely Cause fecal impaction. (3) Pyelonephritis: Code(s): N12 - Tubulo-interstitial nephritis, not specified as acute or chronic Status: Acute Assessment and Plan: Patient presents to the ED on 10/20/2022 with nausea vomiting. Patient has history of ESBL. * Patient meets sepsis criteriawith tachycardia, leukocytosis, tachypnea and complicated UTI. * Differential for sepsis also includes possible bacteremia given presence of PICC line. * UA positive * Patient started on Primaxin * CT abdomen pelvis: Left-sided pyelonephritis, left hydronephrosis with innumerable left kidney stones, left internal ureteral stent. * Urine culture pending (4) Sepsis: Qualifiers: Sepsis acute organ dysfunction status: without acute organ dysfunction Sepsis type: sepsis due to unspecified organism Qualified Code(s): A41.9 - Sepsis, unspecified organism Code(s): A41.9 - Sepsis, unspecified organism Status: Acute Assessment and Plan: Patient meets sepsis criteriawith tachycardia, leukocytosis, tachypnea and complicated UTI. Differential for sepsis also includes possible bacteremia given presence of PICC line. * Blood cultures pending * Urine culture pending * Patient started on Primaxin and Flagyl * Sepsis likely from pyelonephritis * Telemetry * IV fluids * EKG reveals QT prolongation * CRP 3.6 * Lactic acid * Procalcitonin 0.1 (5) Ureteral stent present: Code(s): Z96.0 - Presence of urogenital implants Status: Acute Assessment and Plan: Urology consulted and appreciate recommendation (6) History of ESBL E. coli infection: Code(s): Z86.19 - Personal history of other infectious and parasitic diseases Status: Acute Assessment and Plan: See above (7) Stercoral colitis: Code(s): K52.89 - Other specified noninfective gastroenteritis and colitis Status: Acute Assessment and Plan: General surgery consulted and appreciate recommendations (8) Essential (primary) hypertension: Code(s): I10 - Essential (primary) hypertension Status: Acute Assessment and Plan: The patient's blood pressures on arrival to the ER where initially only modestly elevated but by the time patient was ready for transfer to the floor the patient was hypertensive with blood pressures of 191/118. This could be due to pain and or missing her clonidine doses. * Will place the patient on a clonidine patch 0.1 mg. * Will also provide scheduled IV metoprolol 5 mg daily since patient dana
--- NOTE | 2022-10-21 14:56 | PM.IMPN ---
Progress Note: A&P Assessment and Plan (1) SBO (small bowel obstruction): Code(s): K56.609 - Unspecified intestinal obstruction, unspecified as to partial versus complete obstruction Status: Acute Assessment and Plan: Patient presented to the ED on 10/20/[address] abdomen pelvis: Small bowel obstruction with transition point in right abdomen, Stercoral colitis, small right pleural effusion, small volume ascites NG tube placed General surgery consulted NPO except for ice chips No surgery planned so far (2) Fecal impaction: Code(s): K56.41 - Fecal impaction Status: Acute Assessment and Plan: See above Dr. Branham, General surgery, following patient Patient given soapsuds enema today Advised to avoid laxatives to avoid colonic perforation Patient has known obstipation of 8 days which is likely Cause fecal impaction. (3) Pyelonephritis: Code(s): N12 - Tubulo-interstitial nephritis, not specified as acute or chronic Status: Acute Assessment and Plan: Patient presents to the ED on 10/20/2022 with nausea vomiting. Patient has history of ESBL. Patient meets sepsis criteriawith tachycardia, leukocytosis, tachypnea and complicated UTI. Differential for sepsis also includes possible bacteremia given presence of PICC line. UA positive Patient started on Primaxin CT abdomen pelvis: Left-sided pyelonephritis, left hydronephrosis with innumerable left kidney stones, left internal ureteral stent. Urine culture pending (4) Sepsis: Qualifiers: Sepsis acute organ dysfunction status: without acute organ dysfunction Sepsis type: sepsis due to unspecified organism Qualified Code(s): A41.9 - Sepsis, unspecified organism Code(s): A41.9 - Sepsis, unspecified organism Status: Acute Assessment and Plan: Patient meets sepsis criteriawith tachycardia, leukocytosis, tachypnea and complicated UTI. Differential for sepsis also includes possible bacteremia given presence of PICC line. Blood cultures pending Urine culture pending Patient started on Primaxin and Flagyl Sepsis likely from pyelonephritis Telemetry IV fluids EKG reveals QT prolongation CRP 3.6 Lactic acid Procalcitonin 0.1 (5) Ureteral stent present: Code(s): Z96.0 - Presence of urogenital implants Status: Acute Assessment and Plan: Urology consulted and appreciate recommendation (6) History of ESBL E. coli infection: Code(s): Z86.19 - Personal history of other infectious and parasitic diseases Status: Acute Assessment and Plan: See above (7) Stercoral colitis: Code(s): K52.89 - Other specified noninfective gastroenteritis and colitis Status: Acute Assessment and Plan: General surgery consulted and appreciate recommendations (8) Essential (primary) hypertension: Code(s): I10 - Essential (primary) hypertension Status: Acute Assessment and Plan: The patient's blood pressures on arrival to the ER where initially only modestly elevated but by the time patient was ready for transfer to the floor the patient was hypertensive with blood pressures of 191/118. This could be due to pain and or missing her clonidine doses. Will place the patient on a clonidine patch 0.1 mg. Will also provide scheduled IV metoprolol 5 mg daily since patient cannot have her oral metoprolol. Morphine 2 mg IV q.4 hours p.r.n. severe pain. Plan MEDICAL DECISION MAKING NARRATIVE History obtained from: Patient External chart review: General surgery, Urology New problems addressed: Fecal impaction, small-bowel obstruction Chronic illnesses addressed: Hypertension Comorbidities complicating care: High risk due to obstipation, known kidney stones, histo Risk of complication: High risk due to obstipation, known kidney stones, history of ESBL In
[2022-10-21 20:16] LABS: Glucose Point of Care 118 mg/dl (65-105)
[2022-10-22] VITALS (15 sets, daily range): BP systolic 150–200; BP diastolic 88–110; PULSE 97–125; RESP 18–20; TEMP 35.7–36.8; O2SAT 96–100
[2022-10-22] MEDS: METOPROLOL TARTRATE INJ 5 MG/5 ML VIAL IV PUSH ×5 (00:42→22:40)
[2022-10-22] MEDS: SODIUM CHLORIDE 0.9% IV 1,000 ML 150 ML IV CONT ×3 (01:27→17:29)
[2022-10-22] MEDS: metroNIDAZOLE 500 MG/ISO 100ML 500 MG/100 ML BAG 100 MG IVPB ×3 (06:28→21:11)
[2022-10-22 06:36] LABS: Basophils Percent Auto 0.2 % (0.2-1.2); Eosinophils Absolute Auto 0.3 K/mm3 (0-0.3); Eosinophils Percent Auto 3.8 % (0-4.4); Hematocrit 31.3 % (37.0-47.0); Hemoglobin 9.7 g/dL (12.0-15.0); Immature Granulocyte Absolute 0.03 K/mm3 (0.00-0.031); Immature Granulocyte Percent A 0.3 % (0-0.5); Lymphocytes Absolute Auto 1.28 K/mm3 (0.9-3.2); Lymphocytes Percent Auto 14.3 % (18.3-44.2); Mean Corpuscular Hemoglobin 26.4 pg (26-34); Mean Corpuscular Volume 85.1 fl (80-100); Mean Platelet Volume 10.8 fl (7.4-10.4); Monocytes Absolute Auto 0.6 K/mm3 (0.1-0.6); Monocytes Percent Auto 6.5 % (2.6-8.5); Neutrophils Absolute Auto 6.7 K/mm3 (1.3-6.7); Neutrophils Percent Auto 74.9 % (45.5-73.1); Platelet Count Result 218 k/mm3 (150-375); Red Blood Count 3.68 M/mm3 (4.2-5.4); Red Cell Distribution Width 18.5 % (11.5-14.5); White Blood Count 8.9 K/mm3 (4.5-10.0)
[2022-10-22 06:41] LABS: Lactic Acid Reflex 0.8 mmol/L (0.7-2.0)
[2022-10-22 06:44] LABS: Alanine Aminotransferase 15 U/L (6-35); Albumin Level 2.8 g/dL (3.5-5.1); Alkaline Phosphatase 145 U/L (38-126); Anion Gap 6 mmol/L (8-16); Aspartate Amino Transferase 21 U/L (14-36); Bilirubin,Total 0.8 mg/dL (0.2-1.3); Blood Urea Nitrogen 16 mg/dL (7-17); Calcium 7.5 mg/dL (8.4-10.2); Carbon Dioxide 21 mmol/L (22-30); Chloride 117 mmol/L (98-107); Estimated CRCL calculation 61 ml/min; Estimated Glomerular Filt Rate > 60; Glucose 100 mg/dL (65-110); Sodium 144 mmol/L (137-145)
[2022-10-22] MEDS: ENOXAPARIN 40 MG/0.4 ML SYRINGE SUB-Q (09:24)
[2022-10-22] MEDS: PANTOPRAZOLE SODIUM IV 40 MG VIAL IV PUSH (09:26)
--- NOTE | 2022-10-22 09:56 | WPDUROPN2 ---
Progress Note: A&P Assessment and Plan (1) Solitary left kidney: Status: Acute (2) Ureteral stent present: Code(s): Z96.0 - Presence of urogenital implants Status: Acute Assessment and Plan: Urologically, doing well -> afebrile and leukocytosis improved with abx. pending culture. Urine output good and serum creat. normal - solitary left kidney well drained. Plan Subjective Subjective Date/Time Seen: 10/22/22 09:56 Awake, reports no pain Review of Systems Cardiovascular: Cardiovascular: Denies chest pain, Denies lightheadedness, Denies palpitations and Denies dyspnea Respiratory: Respiratory: Denies dyspnea Gastrointestinal: Gastrointestinal: Denies diarrhea, Denies nausea and Denies vomiting Genitourinary: Genitourinary: Denies hematuria and Denies dysuria Endocrine: Endocrine: Denies palpitations Exam Const: General: no acute distress Resp: Effort & Inspection: normal respiratory effort GI: Inspection: distended GI Palp: No abdominal tenderness and No Guarding due to palpation present (GI) Auscultation: normal bowel sounds Urinary Catheter: Urinary Catheter: patent and draining and urine clear Objective Data Vital Signs Vital Signs: Vital Signs - 24 hr 10/21/22 12:40 10/21/22 14:00 10/21/22 17:09 Temperature 96.7 F L Pulse Rate 146 H 128 H 146 H Respiratory Rate 20 Blood Pressure 155/110 H Pulse Oximetry 95 Oxygen Delivery 10/21/22 16:00 10/21/22 16:20 10/21/22 20:10 Temperature 96.7 F L Pulse Rate 139 H 139 H Respiratory Rate 16 Blood Pressure 180/88 H 149/93 H Pulse Oximetry 95 Oxygen Delivery 10/21/22 21:40 10/21/22 20:00 10/21/22 20:00 Temperature 97.4 F L Pulse Rate 134 H 134 H 139 H Respiratory Rate 16 16 Blood Pressure 153/95 H Pulse Oximetry 94 94 Oxygen Delivery Room Air 10/22/22 00:42 10/22/22 00:00 10/22/22 04:00 Temperature Pulse Rate 125 H 119 H 115 H Respiratory Rate Blood Pressure Pulse Oximetry Oxygen Delivery 10/22/22 06:28 10/22/22 06:00 10/22/22 06:00 Temperature 96.7 F L Pulse Rate 115 H 115 H 101 H Respiratory Rate 20 Blood Pressure 169/102 H 150/93 H Pulse Oximetry 96 Oxygen Delivery Intake/Output Intake/Output: Intake & Output 10/19/22 10/20/22 10/21/22 10/22/22 23:59 23:59 23:59 23:59 Intake Total 2100 3700 2300 Output Total 1450 350 Balance 2100 2250 1950 Meds/Results Medications: Active Medications Generic Name Dose Route Start Last Admin Trade Name Freq PRN Reason Stop Dose Admin Clonidine HCl 1 patch 10/20/22 23:20 10/21/22 00:55 Clonidine 0.1 Mg/24 Hr Patch TRANSDERM 1 patch WEEKLY MERLYN Administration Enoxaparin Sodium 40 mg 10/21/22 09:00 10/22/22 09:24 Enoxaparin 40 Mg/0.4 Ml Syringe SUB-Q 40 mg DAILY MERLYN Administration Sodium Chloride 1,000 mls @ 150 mls/hr 10/20/22 21:00 10/22/22 09:20 Normal Saline Iv IV CONT 150 mls/hr .Q6H40M MERLYN Administration Imipenem/Cilastatin Sodium 500 100 mls @ 300 mls/hr 10/21/22 05:00 10/22/22 06:50 mg/ Sodium Chloride IVPB Infused Q6HR MERLYN Infusion Metronidazole 500 mg in 100 mls @ 100 mls/hr 10/20/22 23:30 10/22/22 07:30 Flagyl 500 Mg/Iso Soln 100 Ml IVPB Infused Q8HR MERLYN Infusion Acetaminophen 1,000 mg in 100 mls @ 400 mls/hr 10/21/22 15:00 Ofirmev 1,000 Mg Ivpb IVPB 10/22/22 14:59 Q6H PRN For pain RATED 1-6 Potassium Chloride 100 mls @ 50 mls/hr 10/22/22 09:54 Kcl 20 Meq/Sw 100 Ml IVPB 10/22/22 11:53 ONCE ONE Metoprolol Tartrate 5 mg 10/21/22 00:00 10/22/22 06:28 Metoprolol Tartrate Inj 5 Mg/5 Ml Vial IV PUSH 5 mg Q6H MERLYN Administration Morphine Sulfate 2 mg 10/20/22 23:16 10/21/22 22:22 Morphine Sulfate (*Crx) 2 Mg/Ml Inj IV PUSH 2 mg Q4H PRN Administration Pain Rated 7-10 Pantoprazole Sodium 40 mg 10/21/22 09:00 10/22/22 09:26 Pantoprazole Sodium Iv 40 Mg V
[2022-10-22] MEDS: KCL 20 MEQ/SW 100 ML 100 ML 50 MEQ IVPB (10:18)
[2022-10-22] MEDS: MORPHINE SULFATE (*CRX) 2 MG/ML INJ IV PUSH ×3 (10:24→21:11)
--- NOTE | 2022-10-22 12:34 | PM.PNGS ---
Progress Note: A&P Assessment and Plan (1) SBO (small bowel obstruction): Code(s): K56.609 - Unspecified intestinal obstruction, unspecified as to partial versus complete obstruction Status: Acute Assessment and Plan: Seems to be improving by my review of the imaging. Her abdominal pain is improved. That may have been after bowel movement but hopefully from less bowel distension as well. Continue NG tube, NPO, IV fluids. Continue serial exam and imaging. Possibly water-soluble small bowel follow-through tomorrow. (2) Fecal impaction in rectum: Code(s): K56.41 - Fecal impaction Status: Acute Assessment and Plan: Large bowel movement reported by nursing after enema yesterday. (3) Multiple sclerosis: Code(s): G35 - Multiple sclerosis Status: Acute Assessment and Plan: Functional quadriplegia and completely disabled. Subjective Subjective Date/Time Seen: 10/22/22 12:34 Patient reports: feels better, pain is less, bowel movement (Nursing reports huge bowel movement with enema yesterday) and afebrile Review of Systems Review of Systems: All systems reviewed & are unremarkable except as noted in HPI and below (HPI) Exam Const: General: comfortable, no acute distress, alert and awake Orientation/consciousness: No confusion GI: Inspection: obesity (Protuberant abdomen), scar and no visible herniation GI Palp: Yes Soft to palpation, Yes Tenderness to palpation present (GI) (Generalized), No Hernia present and No Palpable mass present Auscultation: Hypoactive bowel sounds present Objective Data Vital Signs Vital Signs: Vital Signs - 24 hr 10/21/22 12:40 10/21/22 14:00 10/21/22 17:09 Temperature 35.9 C L Pulse Rate 146 H 128 H 146 H Respiratory Rate 20 Blood Pressure 155/110 H Pulse Oximetry 95 Oxygen Delivery 10/21/22 16:00 10/21/22 16:20 10/21/22 20:10 Temperature 35.9 C L Pulse Rate 139 H 139 H Respiratory Rate 16 Blood Pressure 180/88 H 149/93 H Pulse Oximetry 95 Oxygen Delivery 10/21/22 21:40 10/21/22 20:00 10/21/22 20:00 Temperature 36.3 C L Pulse Rate 134 H 134 H 139 H Respiratory Rate 16 16 Blood Pressure 153/95 H Pulse Oximetry 94 94 Oxygen Delivery Room Air 01/22/23 00:42 10/22/22 00:00 10/22/22 04:00 Temperature Pulse Rate 125 H 119 H 115 H Respiratory Rate Blood Pressure Pulse Oximetry Oxygen Delivery 10/22/22 06:28 10/22/22 06:00 10/22/22 06:00 Temperature 35.9 C L Pulse Rate 115 H 115 H 101 H Respiratory Rate 20 Blood Pressure 169/102 H 150/93 H Pulse Oximetry 96 Oxygen Delivery 10/22/22 09:25 10/22/22 09:25 10/22/22 12:28 Temperature Pulse Rate 101 H 108 H Respiratory Rate Blood Pressure Pulse Oximetry Oxygen Delivery Room Air Intake/Output Intake/Output: Intake & Output 10/19/22 10/20/22 10/21/22 10/22/22 23:59 23:59 23:59 23:59 Intake Total 2100 3700 2300 Output Total 1450 450 Balance 2100 2250 1850 Meds/Results Medications: Active Medications Generic Name Dose Route Start Last Admin Trade Name Edwin PRN Reason Stop Dose Admin Clonidine HCl 1 patch 10/20/22 23:20 10/21/22 00:55 Clonidine 0.1 Mg/24 Hr Patch TRANSDERM 1 patch WEEKLY MERLYN Administration Enoxaparin Sodium 40 mg 10/21/22 09:00 10/22/22 09:24 Enoxaparin 40 Mg/0.4 Ml Syringe SUB-Q 40 mg DAILY MERLYN Administration Sodium Chloride 1,000 mls @ 150 mls/hr 10/20/22 21:00 10/22/22 09:20 Normal Saline Iv IV CONT 150 mls/hr .Q6H40M MERLYN Administration Imipenem/Cilastatin Sodium 500 100 mls @ 300 mls/hr 10/21/22 05:00 10/22/22 12:28 mg/ Sodium Chloride IVPB 300 mls/hr Q6HR MERLYN Administration Metronidazole 500 mg in 100 mls @ 100 mls/hr 10/20/22 23:30 10/22/22 07:30 Flagyl 500 Mg/Iso Soln 100 Ml IVPB Infused Q8HR MERLYN Infusion Acetaminophen 1,000 mg in 100 mls @ 400 mls/hr 10/21/22 15:00 [facility]
--- NOTE | 2022-10-22 14:59 | P.PNIM_ITS ---
Progress Note: A&P Assessment and Plan (1) SBO (small bowel obstruction): Code(s): K56.609 - Unspecified intestinal obstruction, unspecified as to partial versus complete obstruction Status: Acute Assessment and Plan: Patient presented to the ED on 10/20/2022 with nausea vomiting. * CT abdomen pelvis: Small bowel obstruction with transition point in right abdomen, Stercoral colitis, small right pleural effusion, small volume ascites * NG tube placed * General surgery consulted * NPO except for ice chips * No surgery planned * Serial imaging advised by surgery 10/22/22 * Possible small-bowel follow-through tomorrow * Continue serial imaging (2) Fecal impaction: Code(s): K56.41 - Fecal impaction Status: Deleted Assessment and Plan: See above * Dr. Branham, General surgery, following patient * Patient given soapsuds enema today * Advised to avoid laxatives to avoid colonic perforation * Patient has known obstipation of 8 days which is likely Cause fecal impaction. 10/22/22 * Patient has had a couple bowel movements * Abdomen still distended * Continue current therapy (3) Pyelonephritis: Code(s): N12 - Tubulo-interstitial nephritis, not specified as acute or chronic Status: Acute Assessment and Plan: Patient presents to the ED on 10/20/2022 with nausea vomiting. Patient has history of ESBL. * Patient meets sepsis criteriawith tachycardia, leukocytosis, tachypnea and complicated UTI. * Differential for sepsis also includes possible bacteremia given presence of PICC line. * UA positive * Urine Culture pending * Patient started on Primaxin * CT abdomen pelvis: Left-sided pyelonephritis, left hydronephrosis with innumerable left kidney stones, left internal ureteral stent. 10/22/22 * Urine culture final result: mixed jenny * Blood culture no growth to date (4) Sepsis: Qualifiers: Sepsis acute organ dysfunction status: without acute organ dysfunction Sepsis type: sepsis due to unspecified organism Qualified Code(s): A41.9 - Sepsis, unspecified organism Code(s): A41.9 - Sepsis, unspecified organism Status: Acute Assessment and Plan: Patient meets sepsis criteriawith tachycardia, leukocytosis, tachypnea and complicated UTI. Differential for sepsis also includes possible bacteremia given presence of PICC line. * Blood cultures pending * Urine culture pending * Patient started on Primaxin and Flagyl * Sepsis likely from pyelonephritis * Telemetry * IV fluids * EKG reveals QT prolongation * CRP 3.6 * Lactic acid * Procalcitonin 0.1 (5) Ureteral stent present: Code(s): Z96.0 - Presence of urogenital implants Status: Acute Assessment and Plan: Urology consulted and appreciate recommendation (6) History of ESBL E. coli infection: Code(s): Z86.19 - Personal history of other infectious and parasitic diseases Status: Acute Assessment and Plan: See above (7) Stercoral colitis: Code(s): K52.89 - Other specified noninfective gastroenteritis and colitis Status: Acute Assessment and Plan: General surgery consulted and appreciate recommendations (8) Essential (primary) hypertension: Code(s): I10 - Essential (primary) hypertension Status: Acute Assessment and Plan: The patient's blood pressures on arrival to the ER where initially on
--- NOTE | 2022-10-22 14:59 | PM.IMPN ---
Progress Note: A&P Assessment and Plan (1) SBO (small bowel obstruction): Code(s): K56.609 - Unspecified intestinal obstruction, unspecified as to partial versus complete obstruction Status: Acute Assessment and Plan: Patient presented to the ED on 10/20/[address] abdomen pelvis: Small bowel obstruction with transition point in right abdomen, Stercoral colitis, small right pleural effusion, small volume ascites NG tube placed General surgery consulted NPO except for ice chips No surgery planned Serial imaging advised by surgery 10/22/22 Possible small-bowel follow-through tomorrow Continue serial imaging (2) Fecal impaction: Code(s): K56.41 - Fecal impaction Status: Deleted Assessment and Plan: See above Dr. Branham, General surgery, following patient Patient given soapsuds enema today Advised to avoid laxatives to avoid colonic perforation Patient has known obstipation of 8 days which is likely Cause fecal impaction. 10/22/22 Patient has had a couple bowel movements Abdomen still distended Continue current therapy (3) Pyelonephritis: Code(s): N12 - Tubulo-interstitial nephritis, not specified as acute or chronic Status: Acute Assessment and Plan: Patient presents to the ED on 10/20/2022 with nausea vomiting. Patient has history of ESBL. Patient meets sepsis criteriawith tachycardia, leukocytosis, tachypnea and complicated UTI. Differential for sepsis also includes possible bacteremia given presence of PICC line. UA positive Urine Culture pending Patient started on Primaxin CT abdomen pelvis: Left-sided pyelonephritis, left hydronephrosis with innumerable left kidney stones, left internal ureteral stent. 10/22/22 Urine culture final result: mixed jenny Blood culture no growth to date (4) Sepsis: Qualifiers: Sepsis acute organ dysfunction status: without acute organ dysfunction Sepsis type: sepsis due to unspecified organism Qualified Code(s): A41.9 - Sepsis, unspecified organism Code(s): A41.9 - Sepsis, unspecified organism Status: Acute Assessment and Plan: Patient meets sepsis criteriawith tachycardia, leukocytosis, tachypnea and complicated UTI. Differential for sepsis also includes possible bacteremia given presence of PICC line. Blood cultures pending Urine culture pending Patient started on Primaxin and Flagyl Sepsis likely from pyelonephritis Telemetry IV fluids EKG reveals QT prolongation CRP 3.6 Lactic acid Procalcitonin 0.1 (5) Ureteral stent present: Code(s): Z96.0 - Presence of urogenital implants Status: Acute Assessment and Plan: Urology consulted and appreciate recommendation (6) History of ESBL E. coli infection: Code(s): Z86.19 - Personal history of other infectious and parasitic diseases Status: Acute Assessment and Plan: See above (7) Stercoral colitis: Code(s): K52.89 - Other specified noninfective gastroenteritis and colitis Status: Acute Assessment and Plan: General surgery consulted and appreciate recommendations (8) Essential (primary) hypertension: Code(s): I10 - Essential (primary) hypertension Status: Acute Assessment and Plan: The patient's blood pressures on arrival to the ER where initially only modestly elevated but by the time patient was ready for transfer to the floor the patient was hypertensive with blood pressures of 191/118. This could be due to pain and or missing her clonidine doses. Will place the patient on a clonidine patch 0.1 mg. Will also provide scheduled IV metoprolol 5 mg daily since patient cannot have her oral metoprolol. Morphine 2 mg IV q.4 hours p.r.n. severe pain. Plan MEDICAL DECISION MAKING NARRATIVE History obtained from: Patient External chart review: General surgery,
--- NOTE | 2022-10-22 18:00 | PC.NURSE ---
Provider made aware of manual BP. New orders for Hydralazine 10 mg IVP q8h prn high blood pressure SBP>180. Orders also received to renew IV APAP 1 G IVPB order.
[2022-10-22] MEDS: hydrALAZINE HCL 20 MG/ML VIAL 10 MG IV PUSH (18:35)
[2022-10-23] VITALS (12 sets, daily range): BP systolic 163–177; BP diastolic 88–115; PULSE 78–120; RESP 18; TEMP 35.9–36.3; O2SAT 94–97
[2022-10-23] MEDS: SODIUM CHLORIDE 0.9% IV 1,000 ML 150 ML IV CONT ×3 (02:32→23:30)
[2022-10-23] MEDS: METOPROLOL TARTRATE INJ 5 MG/5 ML VIAL IV PUSH ×4 (05:46→23:25)
[2022-10-23] MEDS: metroNIDAZOLE 500 MG/ISO 100ML 500 MG/100 ML BAG 100 MG IVPB ×3 (05:46→23:25)
--- NOTE | 2022-10-23 06:11 | PC.NURSE ---
Paient resting quietly throughout night at intervals. NG draining small to moderate amount of dark, fecal appearing liquid. Patient denies any SOB or distress of any kind. Patient has had several episodes of bladder spasms around fernandez catheter throughout night but no stool noted. Patient remains afebrile but BP remains elevated but improved. Patient tolerating IV ABX well and no reaction noted or reported. Patient remains confused at times but knows name and occasionally place. Patient turned and repositioned at intervals for comfort and preventative measures.
[2022-10-23 06:12] LABS: Basophils Percent Auto 0.2 % (0.2-1.2); Eosinophils Absolute Auto 0.3 K/mm3 (0-0.3); Eosinophils Percent Auto 2.4 % (0-4.4); Hematocrit 32.2 % (37.0-47.0); Hemoglobin 9.8 g/dL (12.0-15.0); Immature Granulocyte Absolute 0.04 K/mm3 (0.00-0.031); Immature Granulocyte Percent A 0.4 % (0-0.5); Lymphocytes Absolute Auto 1.27 K/mm3 (0.9-3.2); Mean Corpuscular HGB Conc 30.4 g/dl (32-36); Mean Corpuscular Hemoglobin 25.3 pg (26-34); Mean Corpuscular Volume 83.2 fl (80-100); Mean Platelet Volume 10.8 fl (7.4-10.4); Monocytes Absolute Auto 0.5 K/mm3 (0.1-0.6); Monocytes Percent Auto 4.6 % (2.6-8.5); Neutrophils Absolute Auto 8.5 K/mm3 (1.3-6.7); Neutrophils Percent Auto 80.4 % (45.5-73.1); Platelet Count Result 228 k/mm3 (150-375); Red Blood Count 3.87 M/mm3 (4.2-5.4); Red Cell Distribution Width 18.3 % (11.5-14.5); White Blood Count 10.6 K/mm3 (4.5-10.0)
[2022-10-23 06:25] LABS: Alanine Aminotransferase 15 U/L (6-35); Albumin Level 3.5 g/dL (3.5-5.1); Alkaline Phosphatase 163 U/L (38-126); Anion Gap 10 mmol/L (8-16); Aspartate Amino Transferase 18 U/L (14-36); Bilirubin,Total 0.8 mg/dL (0.2-1.3); Blood Urea Nitrogen 13 mg/dL (7-17); Calcium 8.3 mg/dL (8.4-10.2); Carbon Dioxide 18 mmol/L (22-30); Chloride 113 mmol/L (98-107); Estimated CRCL calculation 61 ml/min; Estimated Glomerular Filt Rate > 60; Glucose 87 mg/dL (65-110); Sodium 141 mmol/L (137-145)
[2022-10-23] MEDS: POTASSIUM CHLORIDE INJ 40 MEQ in SODIUM CHLORIDE 0.9% IV 500 ML 130 MEQ IVPB (08:47)
[2022-10-23] MEDS: ENOXAPARIN 40 MG/0.4 ML SYRINGE SUB-Q (08:48)
[2022-10-23] MEDS: PANTOPRAZOLE SODIUM IV 40 MG VIAL IV PUSH (08:48)
[2022-10-23] MEDS: MORPHINE SULFATE (*CRX) 2 MG/ML INJ IV PUSH ×4 (08:51→23:25)
--- NOTE | 2022-10-23 12:19 | PM.PNGS ---
Progress Note: A&P Assessment and Plan (1) SBO (small bowel obstruction): Code(s): K56.609 - Unspecified intestinal obstruction, unspecified as to partial versus complete obstruction Status: Acute Assessment and Plan: Films look better and abdomen is much softer than yesterday. Seems to be less tender as well. We will get Gastrografin or water soluble small-bowel series per NG tube today. Hopefully obstruction has resolved. (2) Fecal impaction in rectum: Code(s): K56.41 - Fecal impaction Status: Acute Assessment and Plan: Patient had very large bowel movement with soapsuds enema 10/21/2022. Abdominal pain improved significantly after this. Subjective Subjective Date/Time Seen: 10/23/22 12:19 Patient reports: no new complaints, pain is less and afebrile Review of Systems Review of Systems: All systems reviewed & are unremarkable except as noted in HPI and below (HPI) Exam Const: General: cooperative, comfortable, no acute distress, alert and awake GI: Inspection: obesity (Protuberant) and scar GI Palp: Yes Soft to palpation, Yes Tenderness to palpation present (GI) (Softer and less tender than yesterday), No Hernia present and No Palpable mass present Auscultation: Hypoactive bowel sounds present Objective Data Vital Signs Vital Signs: Vital Signs - 24 hr 10/22/22 12:28 10/22/22 14:00 10/22/22 17:17 Temperature 35.7 C L Pulse Rate 108 H 97 100 Respiratory Rate 20 Blood Pressure 183/108 H Pulse Oximetry 100 10/22/22 17:59 10/22/22 16:00 10/22/22 19:59 Temperature Pulse Rate 101 H Respiratory Rate Blood Pressure 200/100 H 158/88 H Pulse Oximetry 10/22/22 21:08 10/22/22 21:17 10/23/22 00:00 Temperature 36.8 C Pulse Rate 110 H 110 H 120 H Respiratory Rate 18 Blood Pressure 179/110 H Pulse Oximetry 99 10/23/22 04:00 10/23/22 05:47 Temperature Pulse Rate 107 H Respiratory Rate Blood Pressure 168/88 H Pulse Oximetry Intake/Output Intake/Output: Intake & Output 10/20/22 10/21/22 10/22/22 10/23/22 23:59 23:59 23:59 23:59 Intake Total 2100 3700 3800 1000 Output Total 1450 750 0 Balance 2100 2250 3050 1000 Meds/Results Medications: Active Medications Generic Name Dose Route Start Last Admin Trade Name Freq PRN Reason Stop Dose Admin Clonidine HCl 1 patch 10/20/22 23:20 10/21/22 00:55 Clonidine 0.1 Mg/24 Hr Patch TRANSDERM 1 patch WEEKLY MERLYN Administration Enoxaparin Sodium 40 mg 10/21/22 09:00 10/23/22 08:48 Enoxaparin 40 Mg/0.4 Ml Syringe SUB-Q 40 mg DAILY MERLYN Administration Hydralazine HCl 10 mg 10/22/22 17:57 10/22/22 18:35 Hydralazine Hcl 20 Mg/Ml Vial IV PUSH 10 mg Q8H PRN Administration Blood Pressure - High Sodium Chloride 1,000 mls @ 150 mls/hr 10/20/22 21:00 10/23/22 11:27 Normal Saline Iv IV CONT Not Given .[id number] MERLYN Imipenem/Cilastatin Sodium 500 100 mls @ 300 mls/hr 10/21/22 05:00 10/23/22 05:45 mg/ Sodium Chloride IVPB 100 mls/hr Q6HR MERLYN Administration Metronidazole 500 mg in 100 mls @ 100 mls/hr 10/20/22 23:30 10/23/22 05:46 Flagyl 500 Mg/Iso Soln 100 Ml IVPB 100 mls/hr Q8HR MERLYN Administration Acetaminophen 1,000 mg in 100 mls @ 400 mls/hr 10/22/22 17:58 Ofirmev 1,000 Mg Ivpb IVPB 10/23/22 17:57 Q6H PRN Pain Rated 4-6 Metoprolol Tartrate 5 mg 10/21/22 00:00 10/23/22 05:46 Metoprolol Tartrate Inj 5 Mg/5 Ml Vial IV PUSH 5 mg Q6H MERLYN Administration Morphine Sulfate 2 mg 10/20/22 23:16 10/23/22 08:51 Morphine Sulfate (*Crx) 2 Mg/Ml Inj IV PUSH 2 mg Q4H PRN Administration Pain Rated 7-10 Pantoprazole Sodium 40 mg 10/21/22 09:00 10/23/22 08:48 Pantoprazole Sodium Iv 40 Mg Vial IV PUSH 40 mg QAM MERLYN Administration Radiology Results: ITS Impressions Abdomen/Pelvis CT 10/20/22 19:09 IMPRESSION: 1. Left-sided pyelonephritis. Mild left hydronephrosis w
--- NOTE | 2022-10-23 13:18 | PC.NURSE ---
Vascular access nurse assessed the patients access and determined it was a central line. Called and spoke with LEWIS Tubbs to get an order to use access.
[2022-10-23] MEDS: hydrALAZINE HCL 20 MG/ML VIAL 10 MG IV PUSH (15:00)
--- NOTE | 2022-10-23 15:50 | P.PNIM_ITS ---
Progress Note: A&P Assessment and Plan (1) SBO (small bowel obstruction): Code(s): K56.609 - Unspecified intestinal obstruction, unspecified as to partial versus complete obstruction Status: Acute Assessment and Plan: Patient presented to the ED on 10/20/2022 with nausea vomiting. * CT abdomen pelvis: Small bowel obstruction with transition point in right abdomen, Stercoral colitis, small right pleural effusion, small volume ascites * NG tube placed * General surgery consulted * NPO except for ice chips * No surgery planned * Serial imaging advised by surgery 10/22/22 * Possible small-bowel follow-through tomorrow * Continue serial imaging 10/23/22 * Small-bowel follow-through revealed partial small-bowel obstruction * Continue serial imaging * NG tube continue (2) Fecal impaction: Code(s): K56.41 - Fecal impaction Status: Deleted Assessment and Plan: See above * Dr. Branham, General surgery, following patient * Patient given soapsuds enema today * Advised to avoid laxatives to avoid colonic perforation * Patient has known obstipation of 8 days which is likely Cause fecal impaction. 10/22/22 * Patient has had a couple bowel movements * Abdomen still distended * Continue current therapy (3) Pyelonephritis: Code(s): N12 - Tubulo-interstitial nephritis, not specified as acute or chronic Status: Acute Assessment and Plan: Patient presents to the ED on 10/20/2022 with nausea vomiting. Patient has history of ESBL. * Patient meets sepsis criteriawith tachycardia, leukocytosis, tachypnea and complicated UTI. * Differential for sepsis also includes possible bacteremia given presence of PICC line. * UA positive * Urine Culture pending * Patient started on Primaxin * CT abdomen pelvis: Left-sided pyelonephritis, left hydronephrosis with innumerable left kidney stones, left internal ureteral stent. 10/22/22 * Urine culture final result: mixed jenny * Blood culture no growth to date (4) Sepsis: Qualifiers: Sepsis acute organ dysfunction status: without acute organ dysfunction Sepsis type: sepsis due to unspecified organism Qualified Code(s): A41.9 - Sepsis, unspecified organism Code(s): A41.9 - Sepsis, unspecified organism Status: Acute Assessment and Plan: Patient meets sepsis criteriawith tachycardia, leukocytosis, tachypnea and complicated UTI. Differential for sepsis also includes possible bacteremia given presence of PICC line. * Blood cultures pending * Urine culture pending * Patient started on Primaxin and Flagyl * Sepsis likely from pyelonephritis * Telemetry * IV fluids * EKG reveals QT prolongation * CRP 3.6 * Lactic acid * Procalcitonin 0.1 (5) Ureteral stent present: Code(s): Z96.0 - Presence of urogenital implants Status: Acute Assessment and Plan: Urology consulted and appreciate recommendation (6) History of ESBL E. coli infection: Code(s): Z86.19 - Personal history of other infectious and parasitic diseases Status: Acute Assessment and Plan: See above (7) Stercoral colitis: Code(s): K52.89 - Other specified noninfective gastroenteritis and colitis Status: Acute Assessment and Plan: General surgery consulted and appreciate recommendations (8) Essential (primary) hypertension: Code(s): I10 - Essential (primary) hy
--- NOTE | 2022-10-23 15:50 | PM.IMPN ---
Progress Note: A&P Assessment and Plan (1) SBO (small bowel obstruction): Code(s): K56.609 - Unspecified intestinal obstruction, unspecified as to partial versus complete obstruction Status: Acute Assessment and Plan: Patient presented to the ED on 10/20/[address] abdomen pelvis: Small bowel obstruction with transition point in right abdomen, Stercoral colitis, small right pleural effusion, small volume ascites NG tube placed General surgery consulted NPO except for ice chips No surgery planned Serial imaging advised by surgery 10/22/22 Possible small-bowel follow-through tomorrow Continue serial imaging 10/23/22 Small-bowel follow-through revealed partial small-bowel obstruction Continue serial imaging NG tube continue (2) Fecal impaction: Code(s): K56.41 - Fecal impaction Status: Deleted Assessment and Plan: See above Dr. Branham, General surgery, following patient Patient given soapsuds enema today Advised to avoid laxatives to avoid colonic perforation Patient has known obstipation of 8 days which is likely Cause fecal impaction. 10/22/22 Patient has had a couple bowel movements Abdomen still distended Continue current therapy (3) Pyelonephritis: Code(s): N12 - Tubulo-interstitial nephritis, not specified as acute or chronic Status: Acute Assessment and Plan: Patient presents to the ED on 10/20/2022 with nausea vomiting. Patient has history of ESBL. Patient meets sepsis criteriawith tachycardia, leukocytosis, tachypnea and complicated UTI. Differential for sepsis also includes possible bacteremia given presence of PICC line. UA positive Urine Culture pending Patient started on Primaxin CT abdomen pelvis: Left-sided pyelonephritis, left hydronephrosis with innumerable left kidney stones, left internal ureteral stent. 10/22/22 Urine culture final result: mixed jenny Blood culture no growth to date (4) Sepsis: Qualifiers: Sepsis acute organ dysfunction status: without acute organ dysfunction Sepsis type: sepsis due to unspecified organism Qualified Code(s): A41.9 - Sepsis, unspecified organism Code(s): A41.9 - Sepsis, unspecified organism Status: Acute Assessment and Plan: Patient meets sepsis criteriawith tachycardia, leukocytosis, tachypnea and complicated UTI. Differential for sepsis also includes possible bacteremia given presence of PICC line. Blood cultures pending Urine culture pending Patient started on Primaxin and Flagyl Sepsis likely from pyelonephritis Telemetry IV fluids EKG reveals QT prolongation CRP 3.6 Lactic acid Procalcitonin 0.1 (5) Ureteral stent present: Code(s): Z96.0 - Presence of urogenital implants Status: Acute Assessment and Plan: Urology consulted and appreciate recommendation (6) History of ESBL E. coli infection: Code(s): Z86.19 - Personal history of other infectious and parasitic diseases Status: Acute Assessment and Plan: See above (7) Stercoral colitis: Code(s): K52.89 - Other specified noninfective gastroenteritis and colitis Status: Acute Assessment and Plan: General surgery consulted and appreciate recommendations (8) Essential (primary) hypertension: Code(s): I10 - Essential (primary) hypertension Status: Acute Assessment and Plan: The patient's blood pressures on arrival to the ER where initially only modestly elevated but by the time patient was ready for transfer to the floor the patient was hypertensive with blood pressures of 191/118. This could be due to pain and or missing her clonidine doses. Will place the patient on a clonidine patch 0.1 mg. Will also provide scheduled IV metoprolol 5 mg daily since patient cannot have her oral metoprolol. Morphine 2 mg IV q.4 hours p.r.n. severe pain.
[2022-10-24] VITALS (12 sets, daily range): BP systolic 138–179; BP diastolic 86–109; PULSE 87–106; RESP 14–20; TEMP 35.9–36.6; O2SAT 95–100
[2022-10-24] MEDS: MORPHINE SULFATE (*CRX) 2 MG/ML INJ IV PUSH (03:32)
[2022-10-24] MEDS: METOPROLOL TARTRATE INJ 5 MG/5 ML VIAL IV PUSH ×4 (06:06→23:14)
[2022-10-24 06:35] LABS: Hematocrit 32.5 % (37.0-47.0); Hemoglobin 9.8 g/dL (12.0-15.0); Mean Corpuscular HGB Conc 30.2 g/dl (32-36); Mean Corpuscular Hemoglobin 25.5 pg (26-34); Mean Corpuscular Volume 84.4 fl (80-100); Mean Platelet Volume 10.4 fl (7.4-10.4); Platelet Count Result 245 k/mm3 (150-375); Red Blood Count 3.85 M/mm3 (4.2-5.4); Red Cell Distribution Width 18.8 % (11.5-14.5); White Blood Count 10.4 K/mm3 (4.5-10.0)
[2022-10-24 06:45] LABS: Alanine Aminotransferase 14 U/L (6-35); Albumin Level 3.3 g/dL (3.5-5.1); Alkaline Phosphatase 150 U/L (38-126); Anion Gap 12 mmol/L (8-16); Aspartate Amino Transferase 17 U/L (14-36); Bilirubin,Total 0.6 mg/dL (0.2-1.3); Blood Urea Nitrogen 10 mg/dL (7-17); Calcium 8.3 mg/dL (8.4-10.2); Carbon Dioxide 14 mmol/L (22-30); Chloride 120 mmol/L (98-107); Estimated CRCL calculation 61 ml/min; Estimated Glomerular Filt Rate > 60; Glucose 72 mg/dL (65-110); Potassium 3.4 mmol/L (3.4-5.0); Sodium 146 mmol/L (137-145)
[2022-10-24] MEDS: ENOXAPARIN 40 MG/0.4 ML SYRINGE SUB-Q (09:15)
[2022-10-24] MEDS: PANTOPRAZOLE SODIUM IV 40 MG VIAL IV PUSH (09:15)
--- NOTE | 2022-10-24 09:33 | P.PNIM_ITS ---
Progress Note: A&P Assessment and Plan (1) SBO (small bowel obstruction): Code(s): K56.609 - Unspecified intestinal obstruction, unspecified as to partial versus complete obstruction Status: Acute Assessment and Plan: Patient presented to the ED on 10/20/2022 with nausea vomiting. * CT abdomen pelvis: Small bowel obstruction with transition point in right abdomen, Stercoral colitis, small right pleural effusion, small volume ascites * NG tube placed * General surgery consulted * NPO except for ice chips * No surgery planned * Serial imaging advised by surgery 10/22/22 * Possible small-bowel follow-through tomorrow * Continue serial imaging 10/23/22 * Small-bowel follow-through revealed partial small-bowel obstruction * Continue serial imaging * NG tube continue 10/24/22 * xray with negative for SBO * Possible NG tube removal tomorrow (2) Fecal impaction: Code(s): K56.41 - Fecal impaction Status: Deleted Assessment and Plan: See above * Dr. Branham, General surgery, following patient * Patient given soapsuds enema today * Advised to avoid laxatives to avoid colonic perforation * Patient has known obstipation of 8 days which is likely Cause fecal impaction. 10/22/22 * Patient has had a couple bowel movements * Abdomen still distended * Continue current therapy 10/24/22 * resolved. (3) Pyelonephritis: Code(s): N12 - Tubulo-interstitial nephritis, not specified as acute or chronic Status: Acute Assessment and Plan: Patient presents to the ED on 10/20/2022 with nausea vomiting. Patient has history of ESBL. * Patient meets sepsis criteriawith tachycardia, leukocytosis, tachypnea and complicated UTI. * Differential for sepsis also includes possible bacteremia given presence of PICC line. * UA positive * Urine Culture pending * Patient started on Primaxin * CT abdomen pelvis: Left-sided pyelonephritis, left hydronephrosis with innumerable left kidney stones, left internal ureteral stent. 10/22/22 * Urine culture final result: mixed jenny * Blood culture no growth to date (4) Sepsis: Qualifiers: Sepsis acute organ dysfunction status: without acute organ dysfunction Sepsis type: sepsis due to unspecified organism Qualified Code(s): A41.9 - Se psis, unspecified organism Code(s): A41.9 - Sepsis, unspecified organism Status: Acute Assessment and Plan: Patient meets sepsis criteria with tachycardia, leukocytosis, tachypnea and complicated UTI. Differential for sepsis also includes possible bacteremia g iven presence of PICC line. * Blood cultures * Urine culture * Patient started on Primaxin and Flagyl * Sepsis likely from pyelonephritis * Telemetry * IV fluids * EKG reveals QT prolongation * CRP 3.6 * Lactic acid * Procalcitonin 0.1 10/24/22 * Urine cultures negative. * blood culture no growth to date. * Patient changed to ertapenem. 5 days of antibiotics will be completed after 10/25/22. * Patient appears to have hx of tachycardia when looking back at previous hospital visits . (5) Ureteral stent present: Code(s): Z96.0 - Presence of urogenital implants Status: Acute Assessment and Plan: Urology consulted and appreciate recommendation (6) History of ESBL E. coli infection: Code(s): Z86.19 - Personal history of other infectious and parasitic diseases Status: Acute Assessment and Plan:
--- NOTE | 2022-10-24 09:33 | PM.IMPN ---
Progress Note: A&P Assessment and Plan (1) SBO (small bowel obstruction): Code(s): K56.609 - Unspecified intestinal obstruction, unspecified as to partial versus complete obstruction Status: Acute Assessment and Plan: Patient presented to the ED on 10/20/[address] abdomen pelvis: Small bowel obstruction with transition point in right abdomen, Stercoral colitis, small right pleural effusion, small volume ascites NG tube placed General surgery consulted NPO except for ice chips No surgery planned Serial imaging advised by surgery 10/22/22 Possible small-bowel follow-through tomorrow Continue serial imaging 10/23/22 Small-bowel follow-through revealed partial small-bowel obstruction Continue serial imaging NG tube continue 10/24/22 xray with negative for SBO Possible NG tube removal tomorrow (2) Fecal impaction: Code(s): K56.41 - Fecal impaction Status: Deleted Assessment and Plan: See above Dr. Branham, General surgery, following patient Patient given soapsuds enema today Advised to avoid laxatives to avoid colonic perforation Patient has known obstipation of 8 days which is likely Cause fecal impaction. 10/22/22 Patient has had a couple bowel movements Abdomen still distended Continue current therapy 10/24/22 resolved. (3) Pyelonephritis: Code(s): N12 - Tubulo-interstitial nephritis, not specified as acute or chronic Status: Acute Assessment and Plan: Patient presents to the ED on 10/20/2022 with nausea vomiting. Patient has history of ESBL. Patient meets sepsis criteriawith tachycardia, leukocytosis, tachypnea and complicated UTI. Differential for sepsis also includes possible bacteremia given presence of PICC line. UA positive Urine Culture pending Patient started on Primaxin CT abdomen pelvis: Left-sided pyelonephritis, left hydronephrosis with innumerable left kidney stones, left internal ureteral stent. 10/22/22 Urine culture final result: mixed jenny Blood culture no growth to date (4) Sepsis: Qualifiers: Sepsis acute organ dysfunction status: without acute organ dysfunction Sepsis type: sepsis due to unspecified organism Qualified Code(s): A41.9 - Sepsis, unspecified organism Code(s): A41.9 - Sepsis, unspecified organism Status: Acute Assessment and Plan: Patient meets sepsis criteria with tachycardia, leukocytosis, tachypnea and complicated UTI. Differential for sepsis also includes possible bacteremia given presence of PICC line. Blood cultures Urine culture Patient started on Primaxin and Flagyl Sepsis likely from pyelonephritis Telemetry IV fluids EKG reveals QT prolongation CRP 3.6 Lactic acid Procalcitonin 0.1 10/24/22 Urine cultures negative. blood culture no growth to date. Patient changed to ertapenem. 5 days of antibiotics will be completed after 10/25/22. Patient appears to have hx of tachycardia when looking back at previous hospital visits . (5) Ureteral stent present: Code(s): Z96.0 - Presence of urogenital implants Status: Acute Assessment and Plan: Urology consulted and appreciate recommendation (6) History of ESBL E. coli infection: Code(s): Z86.19 - Personal history of other infectious and parasitic diseases Status: Acute Assessment and Plan: See above (7) Stercoral colitis: Code(s): K52.89 - Other specified noninfective gastroenteritis and colitis Status: Acute Assessment and Plan: General surgery consulted and appreciate recommendations (8) Essential (primary) hypertension: Code(s): I10 - Essential (primary) hypertension Status: Acute Assessment and Plan: The patient's blood pressures on arrival to the ER where initially only modestly elevated but by the time patient was ready for transfer to the floor the
[2022-10-24] MEDS: SODIUM CHLORIDE 0.9% IV 1,000 ML 150 ML IV CONT ×2 (10:30→18:54)
--- NOTE | 2022-10-24 12:41 | PM.PNGS ---
Progress Note: A&P Assessment and Plan (1) SBO (small bowel obstruction): Code(s): K56.609 - Unspecified intestinal obstruction, unspecified as to partial versus complete obstruction Status: Acute Assessment and Plan: Xray this AM appears improved. Will order Dulcolax suppository for today. Might be able to remove NG tomorrow if bowel function improves. (2) Fecal impaction in rectum: Code(s): K56.41 - Fecal impaction Status: Acute Subjective Subjective Date/Time Seen: 10/24/22 12:41 Interval history: Not much bowel function yet. Patient occasionally has some abdominal pain but is mostly anxious. Exam GI: Inspection: distended GI Palp: Yes Soft to palpation, No Tenderness to palpation present (GI) and No Guarding due to palpation present (GI) Percussion: Yes tympanic to percussion Auscultation: Hypoactive bowel sounds present Objective Data Vital Signs Vital Signs: Vital Signs - 24 hr 10/23/22 13:40 10/23/22 14:15 10/23/22 14:30 Temperature 35.9 C L Pulse Rate 88 101 H Respiratory Rate 18 Blood Pressure 174/112 H 177/110 H Pulse Oximetry 97 10/23/22 13:40 10/23/22 13:50 10/23/22 16:05 Temperature Pulse Rate Respiratory Rate Blood Pressure 175/115 H 163/104 H 167/98 H Pulse Oximetry 10/23/22 17:28 10/23/22 22:00 10/23/22 22:00 Temperature 36.3 C L Pulse Rate 78 108 H 108 H Respiratory Rate 18 Blood Pressure 176/99 H Pulse Oximetry 94 10/24/22 00:00 10/24/22 03:08 10/24/22 05:18 Temperature 36.6 C Pulse Rate 90 90 106 H Respiratory Rate 18 Blood Pressure 179/99 H Pulse Oximetry 95 10/24/22 12:37 Temperature Pulse Rate 97 Respiratory Rate Blood Pressure Pulse Oximetry Intake/Output Intake/Output: Intake & Output 10/21/22 10/22/22 10/23/22 10/24/22 23:59 23:59 23:59 23:59 Intake Total 3700 3800 3500 1200 Output Total 1450 750 0 50 Balance 2250 3050 3500 1150 Meds/Results Medications: Active Medications Generic Name Dose Route Start Last Admin Trade Name Freq PRN Reason Stop Dose Admin Bisacodyl 10 mg 10/24/22 12:40 Bisacodyl 10 Mg Suppository RECTAL 10/24/22 12:41 ONCE ONE Clonidine HCl 1 patch 10/20/22 23:20 10/21/22 00:55 Clonidine 0.1 Mg/24 Hr Patch TRANSDERM 1 patch WEEKLY MELRYN Administration Enoxaparin Sodium 40 mg 10/21/22 09:00 10/24/22 09:15 Enoxaparin 40 Mg/0.4 Ml Syringe SUB-Q 40 mg DAILY MERLYN Administration Hydralazine HCl 10 mg 10/22/22 17:57 10/23/22 15:00 Hydralazine Hcl 20 Mg/Ml Vial IV PUSH 10 mg Q8H PRN Administration Blood Pressure - High Sodium Chloride 1,000 mls @ 150 mls/hr 10/20/22 21:00 10/24/22 10:30 Normal Saline Iv IV CONT 150 mls/hr .Q6H40M MERLYN Administration Imipenem/Cilastatin Sodium 500 100 mls @ 300 mls/hr 10/21/22 05:00 10/24/22 12:34 mg/ Sodium Chloride IVPB 100 mls/hr Q6HR MERLYN Administration Metronidazole 500 mg in 100 mls @ 100 mls/hr 10/20/22 23:30 10/23/22 23:25 Flagyl 500 Mg/Iso Soln 100 Ml IVPB 100 mls/hr Q8HR MERLYN Administration Metoprolol Tartrate 5 mg 10/21/22 00:00 10/24/22 12:37 Metoprolol Tartrate Inj 5 Mg/5 Ml Vial IV PUSH 5 mg Q6H MERLYN Administration Morphine Sulfate 2 mg 10/20/22 23:16 10/24/22 03:32 Morphine Sulfate (*Crx) 2 Mg/Ml Inj IV PUSH 2 mg Q4H PRN Administration Pain Rated 7-10 Pantoprazole Sodium 40 mg 10/21/22 09:00 10/24/22 09:15 Pantoprazole Sodium Iv 40 Mg Vial IV PUSH 40 mg QAM MERLYN Administration Sodium Chloride 10 ml 10/24/22 14:00 Central Line Flush IV PUSH Q8HR MERLYN Sodium Chloride 10 ml 10/24/22 18:00 Central Line Flush IV PUSH DAILY@1800 [facility] Sodium Chloride 20 ml 10/24/22 07:11 Central Line Flush IV PUSH PRN PRN after blood draws Radiology Results: ITS Impressions Abdomen/Pelvis CT 10/20/22 19:09 IMPRESSION: 1. Left-sided pyelonephritis. Mild left
[2022-10-24] MEDS: BISACODYL 10 MG SUPPOSITORY RECTAL (12:55)
--- NOTE | 2022-10-24 16:02 | PC.NURSE ---
Told Esha that attempted 4 times to put fernandez catheter back in. Chronic fernandez before admission. Esha told this nurse to consult urology. Urology stated do not put another catheter in at this time. Orders are in.
[2022-10-24] MEDS: CENTRAL LINE FLUSH 10 ML IV PUSH ×3 (17:01→21:14)
[2022-10-24] MEDS: ERTAPENEM 1 GM/NS 50 ML 1 GM/50 ML BAG IVPB (17:06)
[2022-10-24] MEDS: hydrALAZINE HCL 20 MG/ML VIAL 10 MG IV PUSH (17:47)
[2022-10-25] VITALS (13 sets, daily range): BP systolic 150–169; BP diastolic 97–118; PULSE 81–103; RESP 14–20; TEMP 36.5; O2SAT 99–100
[2022-10-25] MEDS: SODIUM CHLORIDE 0.9% IV 1,000 ML 150 ML IV CONT (01:46)
[2022-10-25] MEDS: MORPHINE SULFATE (*CRX) 2 MG/ML INJ IV PUSH (03:40)
[2022-10-25] MEDS: METOPROLOL TARTRATE INJ 5 MG/5 ML VIAL IV PUSH ×2 (05:59→11:43)
[2022-10-25] MEDS: CENTRAL LINE FLUSH 20 ML IV PUSH (06:00)
[2022-10-25] MEDS: CENTRAL LINE FLUSH 10 ML IV PUSH ×3 (06:00→17:11)
[2022-10-25 06:14] LABS: Hematocrit 33.6 % (37.0-47.0); Hemoglobin 10.3 g/dL (12.0-15.0); Mean Corpuscular HGB Conc 30.7 g/dl (32-36); Mean Corpuscular Hemoglobin 26.1 pg (26-34); Mean Corpuscular Volume 85.1 fl (80-100); Mean Platelet Volume 10.1 fl (7.4-10.4); Platelet Count Result 250 k/mm3 (150-375); Red Blood Count 3.95 M/mm3 (4.2-5.4); Red Cell Distribution Width 18.8 % (11.5-14.5); White Blood Count 11.4 K/mm3 (4.5-10.0)
[2022-10-25 06:34] LABS: Anion Gap 15 mmol/L (8-16); Blood Urea Nitrogen 8 mg/dL (7-17); Calcium 8.4 mg/dL (8.4-10.2); Carbon Dioxide 11 mmol/L (22-30); Chloride 116 mmol/L (98-107); Estimated CRCL calculation 61 ml/min; Estimated Glomerular Filt Rate > 60; Glucose 66 mg/dL (65-110); Potassium 2.7 mmol/L (3.4-5.0); Sodium 142 mmol/L (137-145)
[2022-10-25] MEDS: KCL 40 MEQ/WATER 100 ML 100 ML 25 ML IVPB (07:33)
[2022-10-25] MEDS: ENOXAPARIN 40 MG/0.4 ML SYRINGE SUB-Q (08:52)
[2022-10-25] MEDS: PANTOPRAZOLE SODIUM IV 40 MG VIAL IV PUSH (08:52)
--- NOTE | 2022-10-25 11:31 | WPDUROPN2 ---
Progress Note: A&P Assessment and Plan (1) Solitary left kidney: Status: Acute Assessment and Plan: Stent in place, patient remains incontinent. PVR is normal. No further evaluation or need for fernandez at this time. (2) Ureteral stent present: Code(s): Z96.0 - Presence of urogenital implants Status: Acute (3) Incontinence: Code(s): R32 - Unspecified urinary incontinence Status: Acute (4) Staghorn kidney stones: Code(s): N20.0 - Calculus of kidney Status: Acute Subjective Subjective Date/Time Seen: 10/25/22 11:31 Fernandez came out unexpectedly yesterday. Patient is a very difficult catheterization d/t contractures and vaginal anatomy. After discussion with Dr. Can who attempted multiple times before being successful over the weekend. She urinates on her own and is incontinent, therefore we elected to keep the fernandez out and bladder scan periodically. She had a PVR of 50cc overnight. Review of Systems Cardiovascular: Cardiovascular: Denies chest pain Respiratory: Respiratory: Reports no additional respiratory complaints Genitourinary: Genitourinary: Denies dysuria, Denies flank pain, Denies urinary incontinence, Denies urinary hesitancy and Denies urinary urgency Exam Const: General: cooperative and comfortable Resp: Effort & Inspection: normal respiratory effort Cardio: Rate: regular rate : General: Yes no CVA tenderness Extrem: Right lower extremity: no edema Left lower extremity: no edema Objective Data Vital Signs Vital Signs: Vital Signs - 24 hr 10/24/22 12:37 10/24/22 12:00 10/24/22 17:06 Temperature Pulse Rate 97 100 96 Respiratory Rate Blood Pressure Pulse Oximetry Oxygen Delivery 10/24/22 14:00 10/24/22 19:15 10/24/22 16:00 Temperature 96.7 F L Pulse Rate 87 93 Respiratory Rate 20 Blood Pressure 179/109 H 138/86 Pulse Oximetry 100 Oxygen Delivery 10/24/22 20:00 10/24/22 21:57 10/24/22 23:14 Temperature 96.9 F L Pulse Rate 102 H 99 Respiratory Rate 14 Blood Pressure 170/94 H Pulse Oximetry 100 Oxygen Delivery Room Air 10/25/22 00:00 10/25/22 04:00 10/25/22 05:52 Temperature 97.7 F Pulse Rate 93 98 101 H Respiratory Rate 14 Blood Pressure 168/97 H Pulse Oximetry 100 Oxygen Delivery 10/25/22 05:59 10/25/22 08:00 Temperature Pulse Rate 102 H 90 Respiratory Rate Blood Pressure Pulse Oximetry Oxygen Delivery Intake/Output Intake/Output: Intake & Output 10/22/22 10/23/22 10/24/22 10/25/22 23:59 23:59 23:59 23:59 Intake Total 3800 3500 2350 1000 Output Total 750 0 450 50 Balance 3050 3500 1900 950 Meds/Results Medications: Active Medications Generic Name Dose Route Start Last Admin Trade Name Freq PRN Reason Stop Dose Admin Clonidine HCl 1 patch 10/20/22 23:20 10/21/22 00:55 Clonidine 0.1 Mg/24 Hr Patch TRANSDERM 1 patch WEEKLY MERLYN Administration Enoxaparin Sodium 40 mg 10/21/22 09:00 10/25/22 08:52 Enoxaparin 40 Mg/0.4 Ml Syringe SUB-Q 40 mg DAILY MERLYN Administration Hydralazine HCl 10 mg 10/22/22 17:57 10/24/22 17:47 Hydralazine Hcl 20 Mg/Ml Vial IV PUSH 10 mg Q8H PRN Administration Blood Pressure - High Ertapenem 1 gm in 50 mls @ 100 mls/hr 10/24/22 18:00 10/24/22 17:36 Invanz 1 Gm/Ns 50 Ml IVPB 10/26/22 17:59 Infused Q24H MERLYN Infusion Potassium Chloride/Dextrose/Sod Cl 1,000 mls @ 150 mls/hr 10/25/22 11:30 Kcl 40 Meq/D5 1/2ns IV CONT .Q6H40M MERLYN Metoprolol Tartrate 5 mg 10/21/22 00:00 10/25/22 05:59 Metoprolol Tartrate Inj 5 Mg/5 Ml Vial IV PUSH 5 mg Q6H MERLYN Administration Morphine Sulfate 2 mg 10/20/22 23:16 10/25/22 03:40 Morphine Sulfate (*Crx) 2 Mg/Ml Inj IV PUSH 2 mg Q4H PRN Administration Pain Rated 7-10 Pantoprazole Sodium 40 mg 10/21/22 09:00 10/25/22 08:52 Pantoprazole Sodium Iv 40 Mg Vial IV PUSH 40 mg QAM [facility]
[2022-10-25] MEDS: KCL 40 MEQ/D5 1/2NS 1,000 ML 150 ML IV CONT ×2 (11:43→19:17)
--- NOTE | 2022-10-25 13:14 | PM.PNGS ---
Progress Note: A&P Assessment and Plan (1) SBO (small bowel obstruction): Code(s): K56.609 - Unspecified intestinal obstruction, unspecified as to partial versus complete obstruction Status: Acute Assessment and Plan: Bowel function improving. NG clamped this morning and she has tolerated this well. Will remove NG tube and give another Dulcolax suppository. (2) Fecal impaction in rectum: Code(s): K56.41 - Fecal impaction Status: Acute Plan I have discussed the patient's case and plan of care with Dr. Penny. Subjective Subjective Date/Time Seen: 10/25/22 13:14 Interval history: Chart reviewed and patient is a limited historian given her dementia/schizophrenia. She is anxious and reports her coccyx hurting due to her position in bed. She denies any abdominal pain at this time. Per nursing, she had a large BM yesterday. No bowel movements yet today. She has had her NG tube clamped since around 8am this morning and tolerated this well. Review of Systems Review of Systems: ROS unobtainable: Yes unobtainable due to mental status (limited due to baseline mental status) Exam GI: Inspection: other (mildly distended) GI Palp: Yes Soft to palpation, Yes Tenderness to palpation present (GI) (diffusely tender), No Guarding due to palpation present (GI) and No Rebound tenderness present Auscultation: normal bowel sounds Objective Data Vital Signs Vital Signs: Vital Signs - 24 hr 10/24/22 17:06 10/24/22 14:00 10/24/22 19:15 Temperature 96.7 F L Pulse Rate 96 87 Respiratory Rate 20 Blood Pressure 179/109 H 138/86 Pulse Oximetry 100 Oxygen Delivery 10/24/22 16:00 10/24/22 20:00 10/24/22 21:57 Temperature 96.9 F L Pulse Rate 93 102 H Respiratory Rate 14 Blood Pressure 170/94 H Pulse Oximetry 100 Oxygen Delivery Room Air 10/24/22 23:14 10/25/22 00:00 10/25/22 04:00 Temperature Pulse Rate 99 93 98 Respiratory Rate Blood Pressure Pulse Oximetry Oxygen Delivery 10/25/22 05:52 10/25/22 05:59 10/25/22 08:00 Temperature 97.7 F Pulse Rate 101 H 102 H 90 Respiratory Rate 14 Blood Pressure 168/97 H Pulse Oximetry 100 Oxygen Delivery 10/25/22 11:43 Temperature Pulse Rate 96 Respiratory Rate Blood Pressure Pulse Oximetry Oxygen Delivery Intake/Output Intake/Output: Intake & Output 10/22/22 10/23/22 10/24/22 10/25/22 23:59 23:59 23:59 23:59 Intake Total 3800 3500 2350 1000 Output Total 750 0 450 50 Balance 3050 3500 1900 950 Meds/Results Medications: Active Medications Generic Name Dose Route Start Last Admin Trade Name Freq PRN Reason Stop Dose Admin Clonidine HCl 1 patch 10/20/22 23:20 10/21/22 00:55 Clonidine 0.1 Mg/24 Hr Patch TRANSDERM 1 patch WEEKLY MERLYN Administration Enoxaparin Sodium 40 mg 10/21/22 09:00 10/25/22 08:52 Enoxaparin 40 Mg/0.4 Ml Syringe SUB-Q 40 mg DAILY MERLYN Administration Hydralazine HCl 10 mg 10/22/22 17:57 10/24/22 17:47 Hydralazine Hcl 20 Mg/Ml Vial IV PUSH 10 mg Q8H PRN Administration Blood Pressure - High Ertapenem 1 gm in 50 mls @ 100 mls/hr 10/24/22 18:00 10/24/22 17:36 Invanz 1 Gm/Ns 50 Ml IVPB 10/26/22 17:59 Infused Q24H MERLYN Infusion Potassium Chloride/Dextrose/Sod Cl 1,000 mls @ 150 mls/hr 10/25/22 11:30 10/25/22 11:43 Kcl 40 Meq/D5 1/2ns IV CONT 150 mls/hr .Q6H40M MERLYN Administration Metoprolol Tartrate 5 mg 10/21/22 00:00 10/25/22 11:43 Metoprolol Tartrate Inj 5 Mg/5 Ml Vial IV PUSH 5 mg Q6H MERLYN Administration Morphine Sulfate 2 mg 10/20/22 23:16 10/25/22 03:40 Morphine Sulfate (*Crx) 2 Mg/Ml Inj IV PUSH 2 mg Q4H PRN Administration Pain Rated 7-10 Pantoprazole Sodium 40 mg 10/21/22 09:00 10/25/22 08:52 Pantoprazole Sodium Iv 40 Mg Vial IV PUSH 40 mg QAM MERLYN Administration Sodium Chloride 10 ml 10/24/22 14:00 10/25/22 13:14 Central Line Flush IV PUSH 10
[2022-10-25] MEDS: BISACODYL 10 MG SUPPOSITORY RECTAL (13:43)
--- NOTE | 2022-10-25 16:10 | PM.IMPN ---
Progress Note: A&P Assessment and Plan (1) SBO (small bowel obstruction): Code(s): K56.609 - Unspecified intestinal obstruction, unspecified as to partial versus complete obstruction Status: Acute Assessment and Plan: Surgery following. It appears NG will likely come out today. Her abdominal exam is unremarkable. Appreciate surgery recs. (2) Pyelonephritis: Code(s): N12 - Tubulo-interstitial nephritis, not specified as acute or chronic Status: Acute Assessment and Plan: History of ESBL and proteus recently. Mixed jenny on cx - may be multiple organisms, not just urogenital jenny. She is higher than average risk d/t multiple medical comorbidities. She was on primaxin for 5 days, then 2 days of invanz. ESBL is well covered but question the coverage of proteus (although not found on cx at this time) if she continues to be symptomatic. Her WBC count does continue to slightly uptick. Infection would certainly be considered complicated in light of her urological concerns. Consider further coverage for proteus pending further lab/exam findings. Procal in the am. - Appreciate urology recs, ureteral stent is in place. Naranjo out, PVR normal. (3) Sepsis: Qualifiers: Sepsis acute organ dysfunction status: without acute organ dysfunction Sepsis type: sepsis due to unspecified organism Qualified Code(s): A41.9 - Sepsis, unspecified organism Code(s): A41.9 - Sepsis, unspecified organism Status: Acute Assessment and Plan: Resolved. (4) Ureteral stent present: Code(s): Z96.0 - Presence of urogenital implants Status: Acute Assessment and Plan: Urology consulted and appreciate recommendations. See above. (5) History of ESBL E. coli infection: Code(s): Z86.19 - Personal history of other infectious and parasitic diseases Status: Acute Assessment and Plan: As per above. Also noted proteus on prior cultures. Have discussed with ID pharmacist today. (6) Stercoral colitis: Code(s): K52.89 - Other specified noninfective gastroenteritis and colitis Status: Acute Assessment and Plan: General surgery recs appreciated. (7) Essential (primary) hypertension: Code(s): I10 - Essential (primary) hypertension Status: Acute Assessment and Plan: Patient on clonidine and metoprolol at home. Currently on clonidine patch, IV metoprolol. BP is not well controlled. - Cont. prn hydralazine. - Uptitrate metoprolol to 7.5mg q6h. (8) Hypokalemia: Code(s): E87.6 - Hypokalemia Status: Acute Assessment and Plan: Replete today, recheck in the am. - Check mg in the am. Plan Expect 48 hours of further care. Time Spent With Patient Time: Greater than 30 minutes of time spent on patient. Subjective Date/time seen: 10/25/22 16:10 Interval history: Yesenia is pleasant and conversant, she states she is thirsty and would like to know when orals will be reintroduced. Review of Systems Constitutional: Constitutional: Reports no additional constitutional complaints Cardiovascular: Cardiovascular: Reports no additional cardiovascular complaints Respiratory: Respiratory: Reports no additional respiratory complaints Gastrointestinal: Gastrointestinal: Reports no additional gastrointestinal complaints Exam Narrative: GENERAL APPEARANCE: Appears to be in no acute distress. HEAD: normocephalic atraumatic ENT: Hearing grossly intact, no nasal discharge NECK: Neck supple, trachea midline. CARDIAC: Normal S1/S2. Rhythm is regular. No murmurs, rubs, or gallops. No cyanosis or pallor. Extremities are warm and well perfused. LUNGS: Clear to auscultation without rales, rhonchi, wheezing or diminished breath sounds. Respirations even and unlabored. ABDOMEN: Obese. BS positive x 4 quadrants. Soft, nondistended, nontender. No guarding or rebound. PERIPHERAL VASCULAR: Peripheral pulses pal
[2022-10-25] MEDS: hydrALAZINE HCL 20 MG/ML VIAL 10 MG IV PUSH (16:14)
[2022-10-25] MEDS: METOPROLOL TARTRATE INJ 5 MG/5 ML VIAL 7.5 MG IV PUSH ×2 (17:07→23:55)
[2022-10-25] MEDS: ERTAPENEM 1 GM/NS 50 ML 1 GM/50 ML BAG IVPB (17:12)
[2022-10-26] VITALS (13 sets, daily range): BP systolic 101–180; BP diastolic 72–120; PULSE 83–107; RESP 18–22; TEMP 36.4–37.1; O2SAT 97–100
[2022-10-26] MEDS: KCL 40 MEQ/D5 1/2NS 1,000 ML 150 ML IV CONT ×2 (02:15→08:02)
[2022-10-26] MEDS: METOPROLOL TARTRATE INJ 5 MG/5 ML VIAL 7.5 MG IV PUSH (06:03)
[2022-10-26] MEDS: CENTRAL LINE FLUSH 10 ML IV PUSH ×4 (06:03→21:02)
[2022-10-26 06:24] LABS: Hematocrit 33.6 % (37.0-47.0); Hemoglobin 10.6 g/dL (12.0-15.0); Mean Corpuscular HGB Conc 31.5 g/dl (32-36); Mean Corpuscular Hemoglobin 26.2 pg (26-34); Mean Corpuscular Volume 83.2 fl (80-100); Mean Platelet Volume 9.6 fl (7.4-10.4); Platelet Count Result 283 k/mm3 (150-375); Red Blood Count 4.04 M/mm3 (4.2-5.4); Red Cell Distribution Width 19.4 % (11.5-14.5); White Blood Count 11.9 K/mm3 (4.5-10.0)
[2022-10-26 06:34] LABS: Anion Gap 5 mmol/L (8-16); Blood Urea Nitrogen 6 mg/dL (7-17); Calcium 8.7 mg/dL (8.4-10.2); Carbon Dioxide 17 mmol/L (22-30); Chloride 113 mmol/L (98-107); Estimated CRCL calculation 68 ml/min; Estimated Glomerular Filt Rate > 60; Glucose 107 mg/dL (65-110); Potassium 4.2 mmol/L (3.4-5.0); Sodium 135 mmol/L (137-145)
[2022-10-26] MEDS: hydrALAZINE HCL 20 MG/ML VIAL 10 MG IV PUSH (06:49)
[2022-10-26 06:59] LABS: Procalcitonin 0.2 ng/mL
[2022-10-26] MEDS: PANTOPRAZOLE SODIUM IV 40 MG VIAL IV PUSH (08:02)
[2022-10-26] MEDS: ENOXAPARIN 40 MG/0.4 ML SYRINGE SUB-Q (08:02)
[2022-10-26] MEDS: METOPROLOL TARTRATE INJ 5 MG/5 ML VIAL 10 MG IV PUSH (11:19)
--- NOTE | 2022-10-26 13:09 | PM.IMPN ---
Progress Note: A&P Assessment and Plan (1) SBO (small bowel obstruction): Code(s): K56.609 - Unspecified intestinal obstruction, unspecified as to partial versus complete obstruction Status: Acute Assessment and Plan: Surgery following. She has a poor appetite this am. A bit tender on abdominal exam today but pretty mild. NG is out. - Diet has been ordered, she did take in about 75% of evening meal. (2) Pyelonephritis: Code(s): N12 - Tubulo-interstitial nephritis, not specified as acute or chronic Status: Acute Assessment and Plan: History of ESBL and proteus recently. Mixed jenny on cx - may be multiple organisms, not just urogenital jenny. She is higher than average risk d/t multiple medical comorbidities. She was on primaxin for 5 days, then 2 days of invanz. ESBL is well covered but question the coverage of proteus (although not found on cx at this time). Her WBC count does continue to slightly uptick. Procal is 0.2 which is higher than her initial. Infection would certainly be considered complicated in light of her urological concerns. Will add in further coverage for proteus pending further lab/exam findings. - Appreciate urology recs, ureteral stent is in place. Naranjo out, PVR normal. - Will start rocephin today, which is a deescalation in spectrum, but will improve coverage of proteus and coverage gaps from prior abx therapy. (3) Ureteral stent present: Code(s): Z96.0 - Presence of urogenital implants Status: Acute Assessment and Plan: Urology consulted and appreciate recommendations. See above. (4) History of ESBL E. coli infection: Code(s): Z86.19 - Personal history of other infectious and parasitic diseases Status: Acute Assessment and Plan: As per above. Also noted proteus on prior cultures. Have discussed with ID pharmacist today and will be tailoring coverage. (5) Stercoral colitis: Code(s): K52.89 - Other specified noninfective gastroenteritis and colitis Status: Acute Assessment and Plan: General surgery recs appreciated. (6) Essential (primary) hypertension: Code(s): I10 - Essential (primary) hypertension Status: Acute Assessment and Plan: Patient on clonidine and metoprolol at home. Currently on clonidine patch, IV metoprolol. As able to take oral now, will resume her home medications. - Resume lasix, oral toprol, oral clonidine. - Consider addition of jeremías-i or arb tomorrow if pressures not improved. (7) Hypokalemia: Code(s): E87.6 - Hypokalemia Status: Acute Assessment and Plan: Resolved with k 4.2 this am. Plan Expect 24-48 hours of further care. Will need to be taking in adequate oral diet prior to return to facility. Time Spent With Patient Time: Greater than 30 minutes of time spent on patient. Time with patient: 25 - 35 minutes Subjective Date/time seen: 10/26/22 13:09 Interval history: Yesenia states her abdomen feels better today. Discussing with nursing she apparently refused all of her morning meal tray. Review of Systems Constitutional: Constitutional: Reports no additional constitutional complaints Cardiovascular: Cardiovascular: Reports no additional cardiovascular complaints Respiratory: Respiratory: Reports no additional respiratory complaints Gastrointestinal: Comments: Poor appetite. Exam Narrative: GENERAL APPEARANCE: Appears to be in no acute distress. HEAD: normocephalic atraumatic ENT: Hearing grossly intact, no nasal discharge CARDIAC: Normal S1/S2. Rhythm is regular. No murmurs, rubs, or gallops. No cyanosis or pallor. Extremities are warm and well perfused. LUNGS: Clear to auscultation without rales, rhonchi, wheezing or diminished breath sounds. Respirations even and unlabored. ABDOMEN: Obese. BS positive x 4 quadrants. Soft, nondistended, tender diffusely - mild. More tender in the upper quadran
--- NOTE | 2022-10-26 13:58 | PM.PNGS ---
Progress Note: A&P Assessment and Plan (1) SBO (small bowel obstruction): Code(s): K56.609 - Unspecified intestinal obstruction, unspecified as to partial versus complete obstruction Status: Acute Assessment and Plan: Resolving. Advance to full liquids. Will start Miralax daily. She was previously on lactulose BID, miralax PRN, and senna PRN prior to admission. She will ultimately need to be discharged on a bowel regimen to help prevent constipation. (2) Fecal impaction in rectum: Code(s): K56.41 - Fecal impaction Status: Acute Plan I have discussed the patient's case and plan of care with Dr. Branham. Subjective Subjective Date/Time Seen: 10/26/22 13:58 Interval history: Chart reviewed and patient is a limited historian given her dementia/schizophrenia.?She is alert and appears comfortable lying in bed. She denies any abdominal pain or nausea. She is tolerating clear liquids. She reports having a BM today and yesterday, which multiple are documented. No specific complaints at this time. Exam Const: General: comfortable, no acute distress and awake GI: Inspection: obesity (Protuberant) and other (mildly distended) GI Palp: Yes Soft to palpation, Yes Tenderness to palpation present (GI) (very mild diffuse tenderness), No Guarding due to palpation present (GI) and No Rebound tenderness present Auscultation: normal bowel sounds Psych: Insight: Limited insight present (Psych) Judgement: Limited judgement present (Psych) Objective Data Vital Signs Vital Signs: Vital Signs - 24 hr 10/25/22 16:12 10/25/22 16:00 10/25/22 17:32 Temperature Pulse Rate 102 H Respiratory Rate Blood Pressure 155/105 H 150/98 H Pulse Oximetry Oxygen Delivery 10/25/22 22:00 10/25/22 20:00 10/25/22 23:55 Temperature 97.7 F Pulse Rate 103 H 81 Respiratory Rate 20 Blood Pressure Pulse Oximetry 99 Oxygen Delivery Room Air 10/25/22 22:00 10/26/22 06:03 10/26/22 06:00 Temperature 97.5 F L Pulse Rate 95 99 Respiratory Rate 22 H Blood Pressure 169/118 H 180/120 H Pulse Oximetry 100 Oxygen Delivery 10/25/22 20:00 10/26/22 00:00 10/26/22 04:00 Temperature Pulse Rate 103 H 86 83 Respiratory Rate Blood Pressure Pulse Oximetry Oxygen Delivery 10/26/22 08:12 10/26/22 08:00 10/26/22 08:00 Temperature Pulse Rate 95 Respiratory Rate Blood Pressure 176/107 H Pulse Oximetry Oxygen Delivery Room Air 10/26/22 08:00 10/26/22 11:21 10/26/22 13:45 Temperature Pulse Rate 101 H 104 H 90 Respiratory Rate Blood Pressure 172/111 H 101/72 Pulse Oximetry Oxygen Delivery Intake/Output Intake/Output: Intake & Output 10/23/22 10/24/22 10/25/22 10/26/22 23:59 23:59 23:59 23:59 Intake Total 3500 2350 2890 1999 Output Total 0 450 50 Balance 3500 1900 2840 1999 Meds/Results Medications: Active Medications Generic Name Dose Route Start Last Admin Trade Name Freq PRN Reason Stop Dose Admin Clonidine HCl 0.1 mg 10/26/22 13:35 Clonidine Hcl 0.1 Mg Tablet PO DAILY MERLYN Enoxaparin Sodium 40 mg 10/21/22 09:00 10/26/22 08:02 Enoxaparin 40 Mg/0.4 Ml Syringe SUB-Q 40 mg DAILY MERLYN Administration Furosemide 40 mg 10/26/22 13:34 Furosemide 40 Mg Tablet PO DAILY MERLYN Hydralazine HCl 20 mg 10/26/22 08:46 Hydralazine Hcl 20 Mg/Ml Vial IV PUSH Q8H PRN Blood Pressure - High Ertapenem 1 gm in 50 mls @ 100 mls/hr 10/24/22 18:00 10/25/22 17:42 Invanz 1 Gm/Ns 50 Ml IVPB 10/26/22 17:59 Infused Q24H MERLYN Infusion Potassium Chloride/Dextrose/Sod Cl 1,000 mls @ 150 mls/hr 10/25/22 11:30 10/26/22 08:02 Kcl 40 Meq/D5 1/2ns IV CONT 150 mls/hr .Q6H40M MERLYN Administration Ceftriaxone Sodium 2 gm/ 100 mls @ 200 mls/hr 10/26/22 18:00 Sodium Chloride IVPB Q24H MERLYN Metoprolol Tartrate 50 mg 10/26/22 17:00 Metoprolol Tartrate 50 Mg Tab PO
[2022-10-26] MEDS: KCL 40 MEQ/D5 1/2NS 1,000 ML 50 ML IV CONT (15:08)
[2022-10-26] MEDS: cloNIDine HCL 0.1 MG TABLET PO (15:12)
[2022-10-26] MEDS: FUROSEMIDE 40 MG TABLET PO (15:12)
[2022-10-26] MEDS: cefTRIAXone 2 GM in SODIUM CHLORIDE 0.9% IV 100 ML 200 ML IVPB (17:09)
[2022-10-26] MEDS: METOPROLOL TARTRATE 50 MG TAB PO (17:09)
[2022-10-26] MEDS: FAMOTIDINE 20 MG TABLET PO (21:02)
[2022-10-27] VITALS (12 sets, daily range): BP systolic 127–185; BP diastolic 83–116; PULSE 88–125; RESP 14–16; TEMP 36.1–36.2; O2SAT 98; BMI 31.1
[2022-10-27] MEDS: CENTRAL LINE FLUSH 20 ML IV PUSH (05:19)
[2022-10-27] MEDS: CENTRAL LINE FLUSH 10 ML IV PUSH ×3 (05:19→17:12)
[2022-10-27 05:29] LABS: Hematocrit 34.3 % (37.0-47.0); Hemoglobin 10.9 g/dL (12.0-15.0); Mean Corpuscular HGB Conc 31.8 g/dl (32-36); Mean Corpuscular Volume 81.9 fl (80-100); Mean Platelet Volume 9.8 fl (7.4-10.4); Platelet Count Result 275 k/mm3 (150-375); Red Blood Count 4.19 M/mm3 (4.2-5.4); Red Cell Distribution Width 19.9 % (11.5-14.5); White Blood Count 13.1 K/mm3 (4.5-10.0)
[2022-10-27] MEDS: hydrALAZINE HCL 20 MG/ML VIAL IV PUSH ×2 (05:36→16:30)
[2022-10-27 05:42] LABS: Alanine Aminotransferase 12 U/L (6-35); Albumin Level 3.3 g/dL (3.5-5.1); Alkaline Phosphatase 158 U/L (38-126); Anion Gap 4 mmol/L (8-16); Aspartate Amino Transferase 21 U/L (14-36); Bilirubin,Total 0.4 mg/dL (0.2-1.3); Blood Urea Nitrogen 5 mg/dL (7-17); Calcium 8.9 mg/dL (8.4-10.2); Carbon Dioxide 18 mmol/L (22-30); Chloride 115 mmol/L (98-107); Estimated CRCL calculation 68 ml/min; Estimated Glomerular Filt Rate > 60; Glucose 100 mg/dL (65-110); Potassium 4.1 mmol/L (3.4-5.0); Sodium 137 mmol/L (137-145)
[2022-10-27 06:19] LABS: Procalcitonin 0.2 ng/mL
--- NOTE | 2022-10-27 06:47 | PM.PNGS ---
Progress Note: A&P Assessment and Plan (1) SBO (small bowel obstruction): Code(s): K56.609 - Unspecified intestinal obstruction, unspecified as to partial versus complete obstruction Status: Acute Assessment and Plan: Having bowel movements. Small bowel series showed ileus. Tolerated liquids well 2 days ago but only 220 cc orally yesterday. Denies abdominal pain, nausea. Will try full liquids again today. Pending plain film of the abdomen this morning. (2) Fecal impaction in rectum: Code(s): K56.41 - Fecal impaction Status: Acute Assessment and Plan: Had large BM following enema when 1st admitted. Subjective Subjective Date/Time Seen: 10/27/22 06:47 Patient reports: pain is less (Denies abdominal pain), bowel movement, afebrile and other (No complaints of nausea or vomiting.) Review of Systems Review of Systems: All systems reviewed & are unremarkable except as noted in HPI and below (HPI) Exam Const: General: comfortable, alert and awake Nutritional Appearance: overweight GI: Inspection: obesity and scar GI Palp: Yes Soft to palpation and No Tenderness to palpation present (GI) Auscultation: Hypoactive bowel sounds present Objective Data Vital Signs Vital Signs: Vital Signs - 24 hr 10/26/22 08:12 10/26/22 08:00 10/26/22 08:00 Temperature Pulse Rate 95 Respiratory Rate Blood Pressure 176/107 H Pulse Oximetry Oxygen Delivery Room Air 10/26/22 08:00 10/26/22 11:21 10/26/22 13:45 Temperature Pulse Rate 101 H 104 H 90 Respiratory Rate Blood Pressure 172/111 H 101/72 Pulse Oximetry Oxygen Delivery 10/26/22 14:00 10/26/22 12:00 10/26/22 16:00 Temperature 36.4 C L Pulse Rate 100 100 100 Respiratory Rate 18 Blood Pressure 160/110 H Pulse Oximetry 98 Oxygen Delivery 10/26/22 20:00 10/26/22 21:54 10/27/22 05:21 Temperature 37.1 C 36.2 C L Pulse Rate 105 H 104 H Respiratory Rate 20 14 Blood Pressure 165/114 H 185/116 H Pulse Oximetry 97 98 Oxygen Delivery Room Air 10/26/22 20:00 10/27/22 00:00 10/27/22 04:00 Temperature Pulse Rate 107 H 88 98 Respiratory Rate Blood Pressure Pulse Oximetry Oxygen Delivery 10/27/22 06:23 Temperature Pulse Rate Respiratory Rate Blood Pressure 145/98 H Pulse Oximetry Oxygen Delivery Intake/Output Intake/Output: Intake & Output 10/24/22 10/25/22 10/26/22 10/27/22 23:59 23:59 23:59 23:59 Intake Total 2350 2890 3200 Output Total 450 50 Balance 1900 2840 3200 only 220 cc recorded for oral intake yesterday. Tolerated liquids better the day before. Meds/Results Medications: Active Medications Generic Name Dose Route Start Last Admin Trade Name Freq PRN Reason Stop Dose Admin Clonidine HCl 0.1 mg 10/26/22 13:35 10/26/22 15:12 Clonidine Hcl 0.1 Mg Tablet PO 0.1 mg DAILY MERLYN Administration Enoxaparin Sodium 40 mg 10/21/22 09:00 10/26/22 08:02 Enoxaparin 40 Mg/0.4 Ml Syringe SUB-Q 40 mg DAILY MERLYN Administration Famotidine 20 mg 10/26/22 21:00 10/26/22 21:02 Famotidine 20 Mg Tablet PO 20 mg Q12HR MERLYN Administration Furosemide 40 mg 10/26/22 13:34 10/26/22 15:12 Furosemide 40 Mg Tablet PO 40 mg DAILY MERLYN Administration Hydralazine HCl 20 mg 10/26/22 08:46 10/27/22 05:36 Hydralazine Hcl 20 Mg/Ml Vial IV PUSH 20 mg Q8H PRN Administration Blood Pressure - High Potassium Chloride/Dextrose/Sod Cl 1,000 mls @ 50 mls/hr 10/25/22 11:30 10/26/22 15:08 Kcl 40 Meq/D5 1/2ns IV CONT 50 mls/hr .Q20H MERLYN Administration Ceftriaxone Sodium 2 gm/ 100 mls @ 200 mls/hr 10/26/22 18:00 10/26/22 17:09 Sodium Chloride IVPB 200 mls/hr Q24H MERLYN Administration Metoprolol Tartrate 50 mg 10/26/22 17:00 10/26/22 17:09 Metoprolol Tartrate 50 Mg Tab PO 50 mg BID MERLYN Administration Morphine Sulfate 2 mg 10/20/22 23:16 10/25/22 03:40 Morphine Sulfate (*Cr
[2022-10-27] MEDS: METOPROLOL TARTRATE 50 MG TAB PO ×2 (09:25→16:29)
[2022-10-27] MEDS: cloNIDine HCL 0.1 MG TABLET PO (09:25)
[2022-10-27] MEDS: ENOXAPARIN 40 MG/0.4 ML SYRINGE SUB-Q (09:25)
[2022-10-27] MEDS: FUROSEMIDE 40 MG TABLET PO (09:25)
--- NOTE | 2022-10-27 11:00 | PM.IMPN ---
Progress Note: A&P Assessment and Plan (1) SBO (small bowel obstruction): Code(s): K56.609 - Unspecified intestinal obstruction, unspecified as to partial versus complete obstruction Status: Acute Assessment and Plan: Surgery following. She has a poor appetite this am. A bit tender on abdominal exam today but pretty mild. NG is out. - Diet increased to full liquids - Tolerating fluids (2) Pyelonephritis: Code(s): N12 - Tubulo-interstitial nephritis, not specified as acute or chronic Status: Acute Assessment and Plan: History of ESBL and proteus recently. Mixed jenny on cx - may be multiple organisms, not just urogenital jenny. She is higher than average risk d/t multiple medical comorbidities. She was on primaxin for 5 days, then 2 days of invanz. ESBL is well covered but question the coverage of proteus (although not found on cx at this time). Her WBC count does continue to slightly uptick. Procal is 0.2 which is higher than her initial. Infection would certainly be considered complicated in light of her urological concerns. Will add in further coverage for proteus pending further lab/exam findings. - Appreciate urology recs, ureteral stent is in place. Naranjo out, PVR normal. - Continue rocephin - WBC are slightly higher than yesterday - Continue to trend labs (3) Ureteral stent present: Code(s): Z96.0 - Presence of urogenital implants Status: Acute Assessment and Plan: Urology consulted and appreciate recommendations. See above. (4) History of ESBL E. coli infection: Code(s): Z86.19 - Personal history of other infectious and parasitic diseases Status: Acute Assessment and Plan: As per above. Also noted proteus on prior cultures. Have discussed with ID pharmacist today and will be tailoring coverage. (5) Stercoral colitis: Code(s): K52.89 - Other specified noninfective gastroenteritis and colitis Status: Acute Assessment and Plan: General surgery recs appreciated. (6) Essential (primary) hypertension: Code(s): I10 - Essential (primary) hypertension Status: Acute Assessment and Plan: Patient on clonidine and metoprolol at home. Currently on clonidine patch, IV metoprolol. As able to take oral now, will resume her home medications. - Resume lasix, oral toprol, oral clonidine. - Add losartan - Continue to trend BP (7) Hypokalemia: Code(s): E87.6 - Hypokalemia Status: Acute Assessment and Plan: Resolved with k 4.1 this am. (8) Tachycardia: Code(s): R00.0 - Tachycardia, unspecified Status: Acute Assessment and Plan: HR is 110-120 Add 500ml of fluid Metoprolol at 50mg PO BID Continue to trend labs Time Spent With Patient Time: 56 minutes Time with patient: Greater than 35 minutes Subjective Date/time seen: 10/27/22 1100 Interval history: Patient was lying in bed. Patient stated that she has been having diarrhea. She also stated that she has been tolerating liquids. She denies any chest pain, shortness a breath, nausea, vomiting. Review of Systems Review of Systems: All systems reviewed & are unremarkable except as noted in HPI and below Exam Narrative: GENERAL APPEARANCE: Appears to be in no acute distress. HEAD: normocephalic atraumatic ENT: Hearing grossly intact, no nasal discharge CARDIAC: Normal S1/S2. Rhythm is regular. No murmurs, rubs, or gallops. No cyanosis or pallor. Extremities are warm and well perfused. LUNGS: Clear to auscultation without rales, rhonchi, wheezing or diminished breath sounds. Respirations even and unlabored. ABDOMEN: Obese. BS positive x 4 quadrants. Soft, nondistended, tender diffusely - mild. More tender in the upper quadrants comparatively.. No guarding or rebound. PERIPHERAL VASCULAR: Peripheral pulses palpable. Normal perfusion, cap refill <2 seconds. NEURO: Barron
[2022-10-27] MEDS: KCL 40 MEQ/D5 1/2NS 1,000 ML 50 ML IV CONT (12:14)
[2022-10-27] MEDS: SODIUM CHLORIDE 0.9% IV 500 ML 999 ML IV CONT (14:03)
[2022-10-27] MEDS: FAMOTIDINE 20 MG TABLET PO ×2 (14:26→20:56)
[2022-10-27] MEDS: LOSARTAN POTASSIUM 25 MG TABLET PO (14:26)
[2022-10-27] MEDS: NIFEdipine 30 MG TAB.ER.24 PO (17:07)
[2022-10-27] MEDS: cefTRIAXone 2 GM in SODIUM CHLORIDE 0.9% IV 100 ML 200 ML IVPB (17:10)
[2022-10-28] VITALS (11 sets, daily range): BP systolic 91–126; BP diastolic 69–90; PULSE 81–120; RESP 14–20; TEMP 36.1–36.6; O2SAT 97–98
[2022-10-28 06:46] LABS: Alanine Aminotransferase 13 U/L (6-35); Alkaline Phosphatase 190 U/L (38-126); Anion Gap 9 mmol/L (8-16); Aspartate Amino Transferase 19 U/L (14-36); Bilirubin,Total 0.6 mg/dL (0.2-1.3); Blood Urea Nitrogen 6 mg/dL (7-17); Calcium 9.1 mg/dL (8.4-10.2); Carbon Dioxide 21 mmol/L (22-30); Chloride 103 mmol/L (98-107); Estimated CRCL calculation 61 ml/min; Estimated Glomerular Filt Rate > 60; Glucose 117 mg/dL (65-110); Magnesium 1.4 mg/dL (1.6-2.3); Potassium 3.5 mmol/L (3.4-5.0); Sodium 133 mmol/L (137-145)
[2022-10-28 06:51] LABS: Basophils Percent Auto 0.4 % (0.2-1.2); Eosinophils Absolute Auto 0.4 K/mm3 (0-0.3); Eosinophils Percent Auto 3.8 % (0-4.4); Hematocrit 39.4 % (37.0-47.0); Hemoglobin 12.7 g/dL (12.0-15.0); Immature Granulocyte Absolute 0.07 K/mm3 (0.00-0.031); Immature Granulocyte Percent A 0.6 % (0-0.5); Lymphocytes Absolute Auto 2.82 K/mm3 (0.9-3.2); Lymphocytes Percent Auto 25.2 % (18.3-44.2); Mean Corpuscular HGB Conc 32.2 g/dl (32-36); Mean Corpuscular Hemoglobin 26.2 pg (26-34); Mean Corpuscular Volume 81.2 fl (80-100); Mean Platelet Volume 10.5 fl (7.4-10.4); Monocytes Absolute Auto 0.7 K/mm3 (0.1-0.6); Monocytes Percent Auto 6.3 % (2.6-8.5); Neutrophils Absolute Auto 7.1 K/mm3 (1.3-6.7); Neutrophils Percent Auto 63.7 % (45.5-73.1); Platelet Count Result 383 k/mm3 (150-375); Red Blood Count 4.85 M/mm3 (4.2-5.4); Red Cell Distribution Width 20.2 % (11.5-14.5); White Blood Count 11.2 K/mm3 (4.5-10.0)
[2022-10-28 08:33] LABS: Platelet Estimate Increased (Adequate)
[2022-10-28 08:37] LABS: Burr Cells 1+ (NORMAL); Poikilocytosis 1+ (NORMAL); Schistocytes Rare (NORMAL)
[2022-10-28] MEDS: KCL 40 MEQ/D5 1/2NS 1,000 ML 50 ML IV CONT (09:07)
[2022-10-28] MEDS: METOPROLOL TARTRATE 50 MG TAB PO (09:07)
[2022-10-28] MEDS: cloNIDine HCL 0.1 MG TABLET PO (09:07)
[2022-10-28] MEDS: CENTRAL LINE FLUSH 10 ML IV PUSH ×4 (09:07→20:41)
[2022-10-28] MEDS: NIFEdipine 30 MG TAB.ER.24 PO (09:08)
[2022-10-28] MEDS: FAMOTIDINE 20 MG TABLET PO ×2 (09:08→20:41)
[2022-10-28] MEDS: FUROSEMIDE 40 MG TABLET PO (09:08)
[2022-10-28] MEDS: ENOXAPARIN 40 MG/0.4 ML SYRINGE SUB-Q (09:08)
[2022-10-28] MEDS: LOSARTAN POTASSIUM 25 MG TABLET PO (09:08)
[2022-10-28] MEDS: MAGNESIUM SULF 4 GM/WATER100ML 4 GM/100 ML BAG IVPB (09:22)
--- NOTE | 2022-10-28 10:45 | PM.IMPN ---
Progress Note: A&P Assessment and Plan (1) SBO (small bowel obstruction): Code(s): K56.609 - Unspecified intestinal obstruction, unspecified as to partial versus complete obstruction Status: Acute Assessment and Plan: Surgery following. - appetite remains the same - NG is out. - No notable tenderness - Diet increased to full liquids, could probably be advanced if ok with surgery - Tolerating fluids (2) Pyelonephritis: Code(s): N12 - Tubulo-interstitial nephritis, not specified as acute or chronic Status: Acute Assessment and Plan: History of ESBL and proteus recently. Mixed jenny on cx - may be multiple organisms, not just urogenital jenny. She is higher than average risk d/t multiple medical comorbidities. She was on primaxin for 5 days, then 2 days of invanz. ESBL is well covered but question the coverage of proteus (although not found on cx at this time). Her WBC count does continue to slightly uptick. Procal is 0.2 which is higher than her initial. Infection would certainly be considered complicated in light of her urological concerns. Will add in further coverage for proteus pending further lab/exam findings. - Appreciate urology recs, ureteral stent is in place. Naranjo out, PVR normal. - Continue rocephin - WBC are down today at 11.2 - Continue to trend labs (3) Ureteral stent present: Code(s): Z96.0 - Presence of urogenital implants Status: Acute Assessment and Plan: Urology consulted and appreciate recommendations. See above. (4) History of ESBL E. coli infection: Code(s): Z86.19 - Personal history of other infectious and parasitic diseases Status: Acute Assessment and Plan: As per above. Also noted proteus on prior cultures. Have discussed with ID pharmacist today and will be tailoring coverage. (5) Stercoral colitis: Code(s): K52.89 - Other specified noninfective gastroenteritis and colitis Status: Acute Assessment and Plan: General surgery recs appreciated. (6) Essential (primary) hypertension: Code(s): I10 - Essential (primary) hypertension Status: Acute Assessment and Plan: Patient on clonidine and metoprolol at home. - Uncontrolled - Resume lasix, oral toprol, oral clonidine. - Add losartan - Added nifedipine - Continue to trend BP closely - adjust medication as indicated (7) Hypokalemia: Code(s): E87.6 - Hypokalemia Status: Acute Assessment and Plan: Seems labile Current potassium is 3.5 IV fluids with K Trend replace as indicated (8) Tachycardia: Code(s): R00.0 - Tachycardia, unspecified Status: Acute Assessment and Plan: HR is 90-120s Metoprolol at 50mg PO BID, increased to 75mg PO BID Continue to trend HR adjust as indicated Time Spent With Patient Time: 53 minutes Time with patient: Greater than 35 minutes Subjective Date/time seen: 10/28/22 10:45 Interval history: 10/28/22 1045 She is sleeping. Woke up easy. She stated that she is just really tired. She current denies any chest pain, shortness of breath, nausea, vomiting, diarrhea, or constipation. She did state that she is tolerating liquids. Heart rate appears to have gone up again overnight in the 120s. BP was also elevated yesterday evening 180/110s. Increased metoprolol. BP is better with nifedipine. Will continue to monitor. 10/27/22 Patient was lying in bed. Patient stated that she has been having diarrhea. She also stated that she has been tolerating liquids. She denies any chest pain, shortness a breath, nausea, vomiting. Review of Systems Review of Systems: All systems reviewed & are unremarkable except as noted in HPI and below Exam Narrative: GENERAL APPEARANCE: Appears to be in no acute distress, tired appearing HEAD: normocephalic atraumatic ENT: Hearing grossly intact, no nasal discharge
--- NOTE | 2022-10-28 12:55 | PM.PNGS ---
Progress Note: A&P Assessment and Plan (1) SBO (small bowel obstruction): Code(s): K56.609 - Unspecified intestinal obstruction, unspecified as to partial versus complete obstruction Status: Acute Assessment and Plan: exam improved and benign, will start soft diet, KUB improved today Subjective Subjective Date/Time Seen: 10/28/22 12:55 feels better today, pain improved, zora full liquids, wants to try more solid food Review of Systems Review of Systems: All systems reviewed & are unremarkable except as noted in HPI and below Exam Const: General: cooperative, comfortable and no acute distress Resp: Auscultation: clear to auscultation bilaterally Cardio: Rate: regular rate Rhythm: regular rhythm GI: Inspection: normal to inspection and non-distended GI Palp: No abdominal tenderness, Yes Soft to palpation, No Tenderness to palpation present (GI), No Guarding due to palpation present (GI) and No Rigid due to palpation Objective Data Vital Signs Vital Signs: Vital Signs - 24 hr 10/27/22 14:00 10/27/22 16:29 10/27/22 16:00 Temperature 36.1 C L Pulse Rate 110 H 97 93 Respiratory Rate 16 Blood Pressure 160/110 H Pulse Oximetry 98 Oxygen Delivery 10/27/22 18:14 10/27/22 21:26 10/27/22 20:00 Temperature 36.1 C L Pulse Rate 98 Respiratory Rate 14 Blood Pressure 127/86 140/83 Pulse Oximetry 98 Oxygen Delivery Room Air 10/27/22 20:00 10/28/22 00:00 10/28/22 05:30 Temperature 36.1 C L Pulse Rate 97 106 H 118 H Respiratory Rate 14 Blood Pressure 126/90 Pulse Oximetry 97 Oxygen Delivery 10/28/22 04:00 10/28/22 09:07 10/28/22 08:00 Temperature Pulse Rate 101 H 120 H 117 H Respiratory Rate Blood Pressure Pulse Oximetry Oxygen Delivery 10/28/22 12:00 Temperature Pulse Rate 81 Respiratory Rate Blood Pressure Pulse Oximetry Oxygen Delivery Intake/Output Intake/Output: Intake & Output 10/25/22 10/26/22 10/27/22 10/28/22 23:59 23:59 23:59 23:59 Intake Total 2890 3300 1600 1600 Output Total 50 2800 Balance 2840 3300 1600 -1200 Meds/Results Medications: Active Medications Generic Name Dose Route Start Last Admin Trade Name Freq PRN Reason Stop Dose Admin Clonidine HCl 0.1 mg 10/26/22 13:35 10/28/22 09:07 Clonidine Hcl 0.1 Mg Tablet PO 0.1 mg DAILY MERLYN Administration Enoxaparin Sodium 40 mg 10/21/22 09:00 10/28/22 09:08 Enoxaparin 40 Mg/0.4 Ml Syringe SUB-Q 40 mg DAILY MERLYN Administration Famotidine 20 mg 10/26/22 21:00 10/28/22 09:08 Famotidine 20 Mg Tablet PO 20 mg Q12HR MERLYN Administration Furosemide 40 mg 10/26/22 13:34 10/28/22 09:08 Furosemide 40 Mg Tablet PO 40 mg DAILY MERLYN Administration Hydralazine HCl 20 mg 10/26/22 08:46 10/27/22 16:30 Hydralazine Hcl 20 Mg/Ml Vial IV PUSH 20 mg Q8H PRN Administration Blood Pressure - High Potassium Chloride/Dextrose/Sod Cl 1,000 mls @ 50 mls/hr 10/25/22 11:30 10/28/22 09:07 Kcl 40 Meq/D5 1/2ns IV CONT 50 mls/hr .Q20H MERLYN Administration Ceftriaxone Sodium 2 gm/ 100 mls @ 200 mls/hr 10/26/22 18:00 10/27/22 17:40 Sodium Chloride IVPB Infused Q24H MERLYN Infusion Losartan Potassium 25 mg 10/27/22 13:40 10/28/22 09:08 Losartan Potassium 25 Mg Tablet PO 25 mg DAILY MERLYN Administration Metoprolol Tartrate 75 mg 10/28/22 17:00 Metoprolol Tartrate 25 Mg Tablet PO BID MERLYN Morphine Sulfate 2 mg 10/20/22 23:16 10/25/22 03:40 Morphine Sulfate (*Crx) 2 Mg/Ml Inj IV PUSH 2 mg Q4H PRN Administration Pain Rated 7-10 Nifedipine 30 mg 10/27/22 17:00 10/28/22 09:08 Nifedipine 30 Mg Tab.Er.24 PO 30 mg QAM MERLYN Administration Polyethylene Glycol 17 gm 10/27/22 09:00 10/28/22 09:08 Polyethylene Glycol 3350 17 Gm Powd.Pack PO Not Given QAM MERLYN Sodium Chloride 10 ml 10/24/22 14:00 10/28/22 09:07 Central Line Flush IV PUSH 10 ml
[2022-10-28] MEDS: ACETAMINOPHEN 500 MG TABLET 1000 MG PO (13:34)
[2022-10-28] MEDS: METOPROLOL TARTRATE 25 MG TABLET 75 MG PO (16:59)
[2022-10-28] MEDS: cefTRIAXone 2 GM in SODIUM CHLORIDE 0.9% IV 100 ML IVPB (17:00)
[2022-10-29] VITALS (7 sets, daily range): BP systolic 104–119; BP diastolic 79–88; PULSE 88–98; RESP 14–20; TEMP 36.1–36.3; O2SAT 98
[2022-10-29] MEDS: ACETAMINOPHEN 500 MG TABLET 1000 MG PO (00:49)
[2022-10-29 04:24] LABS: Basophils Absolute Auto 0.1 K/mm3 (0.0-0.1); Basophils Percent Auto 0.7 % (0.2-1.2); Eosinophils Absolute Auto 0.6 K/mm3 (0-0.3); Hematocrit 40.3 % (37.0-47.0); Immature Granulocyte Absolute 0.07 K/mm3 (0.00-0.031); Immature Granulocyte Percent A 0.6 % (0-0.5); Lymphocytes Absolute Auto 3.25 K/mm3 (0.9-3.2); Lymphocytes Percent Auto 26.4 % (18.3-44.2); Mean Corpuscular HGB Conc 32.3 g/dl (32-36); Mean Corpuscular Hemoglobin 26.2 pg (26-34); Mean Corpuscular Volume 81.3 fl (80-100); Mean Platelet Volume 10.3 fl (7.4-10.4); Monocytes Absolute Auto 0.9 K/mm3 (0.1-0.6); Monocytes Percent Auto 7.1 % (2.6-8.5); Neutrophils Absolute Auto 7.4 K/mm3 (1.3-6.7); Neutrophils Percent Auto 60.2 % (45.5-73.1); Platelet Count Result 444 k/mm3 (150-375); Red Blood Count 4.96 M/mm3 (4.2-5.4); Red Cell Distribution Width 20.6 % (11.5-14.5); White Blood Count 12.3 K/mm3 (4.5-10.0)
[2022-10-29 04:37] LABS: Alanine Aminotransferase 15 U/L (6-35); Albumin Level 4.1 g/dL (3.5-5.1); Alkaline Phosphatase 186 U/L (38-126); Anion Gap 9 mmol/L (8-16); Aspartate Amino Transferase 20 U/L (14-36); Bilirubin,Total 0.4 mg/dL (0.2-1.3); Blood Urea Nitrogen 10 mg/dL (7-17); Calcium 9.2 mg/dL (8.4-10.2); Carbon Dioxide 24 mmol/L (22-30); Chloride 101 mmol/L (98-107); Estimated CRCL calculation 51 ml/min; Estimated Glomerular Filt Rate 51; Glucose 110 mg/dL (65-110); Magnesium 2.8 mg/dL (1.6-2.3); Potassium 3.6 mmol/L (3.4-5.0); Sodium 134 mmol/L (137-145)
[2022-10-29] MEDS: CENTRAL LINE FLUSH 10 ML IV PUSH (05:29)
[2022-10-29] MEDS: METOPROLOL TARTRATE 25 MG TABLET 75 MG PO (09:43)
[2022-10-29] MEDS: LOSARTAN POTASSIUM 25 MG TABLET PO (09:44)
[2022-10-29] MEDS: FAMOTIDINE 20 MG TABLET PO (09:44)
[2022-10-29] MEDS: FUROSEMIDE 40 MG TABLET PO (09:44)
[2022-10-29] MEDS: polyethylene glycoL 3350 17 GM POWD.PACK PO (09:45)
[2022-10-29] MEDS: NIFEdipine 30 MG TAB.ER.24 PO (09:45)
[2022-10-29] MEDS: ENOXAPARIN 40 MG/0.4 ML SYRINGE SUB-Q (09:45)
[2022-10-29] MEDS: cloNIDine HCL 0.1 MG TABLET PO (09:47)
--- NOTE | 2022-10-29 11:00 | PM.DS ---
DS: Admitting Diagnosis Discharge Date 10/29/22 1100 Admitting Diagnosis Small bowel obstruction DS: Discharge Diagnosis Discharge Diagnosis (1) SBO (small bowel obstruction): Code(s): K56.609 - Unspecified intestinal obstruction, unspecified as to partial versus complete obstruction Status: Acute Assessment and Plan: Surgery following. - appetite remains the same - NG is out. - No notable tenderness - Diet increased to low fiber, could probably be advanced if ok with surgery - Tolerating fluids - KUB 10/28/22 improved small bowel obstruction (2) Pyelonephritis: Code(s): N12 - Tubulo-interstitial nephritis, not specified as acute or chronic Status: Acute Assessment and Plan: History of ESBL and proteus recently. Mixed jenny on cx - may be multiple organisms, not just urogenital jenny. She is higher than average risk d/t multiple medical comorbidities. She was on primaxin for 5 days, then 2 days of invanz. ESBL is well covered but question the coverage of proteus (although not found on cx at this time). Her WBC count does continue to slightly uptick. Procal is 0.2 which is higher than her initial. Infection would certainly be considered complicated in light of her urological concerns. Will add in further coverage for proteus pending further lab/exam findings. - Appreciate urology recs, ureteral stent is in place. Naranjo out, PVR normal. - Continue rocephin, change to cefdinir - WBC are down today at 12.3 - Continue to trend labs (3) Ureteral stent present: Code(s): Z96.0 - Presence of urogenital implants Status: Acute Assessment and Plan: Urology consulted and appreciate recommendations. See above. (4) History of ESBL E. coli infection: Code(s): Z86.19 - Personal history of other infectious and parasitic diseases Status: Acute Assessment and Plan: As per above. Also noted proteus on prior cultures. Have discussed with ID pharmacist today and will be tailoring coverage. (5) Stercoral colitis: Code(s): K52.89 - Other specified noninfective gastroenteritis and colitis Status: Acute Assessment and Plan: General surgery recs appreciated. (6) Essential (primary) hypertension: Code(s): I10 - Essential (primary) hypertension Status: Acute Assessment and Plan: Patient on clonidine and metoprolol at home. - Current BP is 119/88 - Better control with addition of nifedipine - Resume lasix, oral toprol, oral clonidine. - Add losartan - Added nifedipine - Continue to trend BP closely - adjust medication as indicated (7) Hypokalemia: Code(s): E87.6 - Hypokalemia Status: Acute Assessment and Plan: Seems labile Current potassium is 3.6 IV fluids with K Trend replace as indicated (8) Tachycardia: Code(s): R00.0 - Tachycardia, unspecified Status: Acute Assessment and Plan: HR is 90-120s Metoprolol at 50mg PO BID, increased to 75mg PO BID Continue to trend HR adjust as indicated stable and resolved DS: Summary Hospital Course Hospital Course: Patient is a 57-year-old female with a past medical history of dementia, schizophrenia, multiple sclerosis, quadriplegia E, COPD, hypertension, kidney stones who presented to the ED for multiple episodes of emesis. CT upon arrival did show evidence of a small-bowel obstruction and pyelonephritis of the kidney was stent placement. NG tube was placed and patient was placed on suction. Small-bowel follow-through did show ileus. General surgery was consulted for the small-bowel obstruction. Patient was also noted to have fecal impaction and enema was given and patient did have a large bowel movement. Patient was also given IV fluids and started on at Primaxin for UTI. patient has been treated for 9 days. Urology was consulted due to inability to insert Naranjo and for stent pl
--- NOTE | 2022-10-29 12:38 | PM.PNGS ---
Progress Note: A&P Assessment and Plan (1) SBO (small bowel obstruction): Code(s): K56.609 - Unspecified intestinal obstruction, unspecified as to partial versus complete obstruction Status: Acute Assessment and Plan: resolved, zora diet, +bowel fxn, ok to dc from surgical standpoint Subjective Subjective Date/Time Seen: 10/29/22 12:38 feels much better today, no pain, zora diet, want to go home Review of Systems Review of Systems: All systems reviewed & are unremarkable except as noted in HPI and below Exam Const: General: cooperative, comfortable, no acute distress and ill appearing Resp: Auscultation: clear to auscultation bilaterally Cardio: Rate: regular rate Rhythm: regular rhythm GI: Inspection: normal to inspection and non-distended GI Palp: No abdominal tenderness, Yes Soft to palpation, No Tenderness to palpation present (GI), No Guarding due to palpation present (GI) and No Rigid due to palpation Objective Data Vital Signs Vital Signs: Vital Signs - 24 hr 10/28/22 14:00 10/28/22 16:59 10/28/22 16:00 Temperature 36.2 C L Pulse Rate 94 101 H 97 Respiratory Rate 20 Blood Pressure 119/77 Pulse Oximetry 98 Oxygen Delivery 10/28/22 21:39 10/28/22 20:00 10/28/22 20:00 Temperature 36.6 C Pulse Rate 94 97 98 Respiratory Rate 14 14 Blood Pressure 91/69 L Pulse Oximetry 98 98 Oxygen Delivery Room Air 10/29/22 00:00 10/29/22 04:00 10/29/22 05:46 Temperature 36.3 C L Pulse Rate 92 88 98 Respiratory Rate 14 Blood Pressure 119/88 Pulse Oximetry 98 Oxygen Delivery 10/29/22 09:43 10/29/22 09:45 10/29/22 08:00 Temperature Pulse Rate 92 89 Respiratory Rate Blood Pressure Pulse Oximetry Oxygen Delivery Room Air Intake/Output Intake/Output: Intake & Output 10/26/22 10/27/22 10/28/22 10/29/22 23:59 23:59 23:59 23:59 Intake Total 3300 1600 1960 500 Output Total 4025 250 Balance 3300 1600 -2065 250 Meds/Results Medications: Active Medications Generic Name Dose Route Start Last Admin Trade Name Freq PRN Reason Stop Dose Admin Acetaminophen 1,000 mg 10/28/22 13:24 10/29/22 00:49 Acetaminophen 500 Mg Tablet PO 1,000 mg Q6H PRN Administration Mild Pain (1-3) or Fever Clonidine HCl 0.1 mg 10/26/22 13:35 10/29/22 09:47 Clonidine Hcl 0.1 Mg Tablet PO 0.1 mg DAILY MERLYN Administration Enoxaparin Sodium 40 mg 10/21/22 09:00 10/29/22 09:45 Enoxaparin 40 Mg/0.4 Ml Syringe SUB-Q 40 mg DAILY MERLYN Administration Famotidine 20 mg 10/26/22 21:00 10/29/22 09:44 Famotidine 20 Mg Tablet PO 20 mg Q12HR MERLYN Administration Furosemide 40 mg 10/26/22 13:34 10/29/22 09:44 Furosemide 40 Mg Tablet PO 40 mg DAILY MERLYN Administration Hydralazine HCl 20 mg 10/26/22 08:46 10/27/22 16:30 Hydralazine Hcl 20 Mg/Ml Vial IV PUSH 20 mg Q8H PRN Administration Blood Pressure - High Ceftriaxone Sodium 2 gm/ 100 mls @ 200 mls/hr 10/26/22 18:00 10/28/22 18:00 Sodium Chloride IVPB Infused Q24H MERLYN Infusion Losartan Potassium 25 mg 10/27/22 13:40 10/29/22 09:44 Losartan Potassium 25 Mg Tablet PO 25 mg DAILY MERLYN Administration Metoprolol Tartrate 75 mg 10/28/22 17:00 10/29/22 09:43 Metoprolol Tartrate 25 Mg Tablet PO 75 mg BID MERLYN Administration Morphine Sulfate 2 mg 10/20/22 23:16 10/25/22 03:40 Morphine Sulfate (*Crx) 2 Mg/Ml Inj IV PUSH 2 mg Q4H PRN Administration Pain Rated 7-10 Nifedipine 30 mg 10/27/22 17:00 10/29/22 09:45 Nifedipine 30 Mg Tab.Er.24 PO 30 mg QAM MERLYN Administration Polyethylene Glycol 17 gm 10/27/22 09:00 10/29/22 09:45 Polyethylene Glycol 3350 17 Gm Powd.Pack PO 17 gm QAM MERLYN Administration Sodium Chloride 10 ml 10/24/22 14:00 10/29/22 05:29 Central Line Flush IV PUSH 10 ml Q8HR MERLYN Administration Sodium Chloride 10 ml 10/24/22 18:00 10/28/22 17:00 Jimmy Guo
[2022-10-29] MEDS: NEOMYCIN/POLYMYXIN/BACITRACIN OINTMENT PACKET 1 PACKET (13:51)
[2022-10-29 14:56] LABS: EDCOVIDSCREEN Negative (Negative)
== END 2022-10-29 16:30 | DRG 871 ==
LOC: ANHED 19:40 → ANH2MED 22:03 → ANH3MEDSUR 23:12
PROVIDERS: Emergency Medicine; Internal Medicine Critical Care Medicine; Nurse Practitioner Family; Surgery; Admitting Provider Internal Medicine; Emergency Provider Nurse Practitioner Family; PCP Internal Medicine; Visit Provider Nurse Practitioner
DX: A41.9 Sepsis, unspecified organism (principal); R53.2 Functional quadriplegia; K56.609 Unspecified intestinal obstruction, unspecified as to partial versus complete obstruction; N13.6 Pyonephrosis; K56.41 Fecal impaction; K52.89 Other specified noninfective gastroenteritis and colitis; E87.6 Hypokalemia; I10 Essential (primary) hypertension; J44.9 Chronic obstructive pulmonary disease, unspecified; E78.5 Hyperlipidemia, unspecified; G35 Multiple sclerosis; F20.9 Schizophrenia, unspecified; F03.90 Unspecified dementia, unspecified severity, without behavioral disturbance, psychotic disturbance, mood disturbance, and anxiety; F41.1 Generalized anxiety disorder; Z20.822 Contact with and (suspected) exposure to COVID-19; Z96.0 Presence of urogenital implants; Z90.5 Acquired absence of kidney; Z99.81 Dependence on supplemental oxygen
CPT/HCPCS: 36415; 51701; 51702; 71045; 74018; 74019; 74177; 74250; 80048; 80053; 81001; 82948; 83605; 83690; 83735; 84145; 85025; 85027; 86140; 87040; 87086; 87088; 87426; 87637; 93005; 96361; 96365; 96366; 96367; 96372; 96375; 96376; 99285; A9270; C9113; C9803; G0378; J0360; J0696; J0743; J1335; J1650; J2270; J2405; J3475; J3480; J7030; J7040; Q9967

== ENCOUNTER 2022-12-12 15:45 | Inpatient (IN) | payer MEDICARE, MEDICAID, SELFPAY ==
[2022-12-12] VITALS (35 sets, daily range): BP systolic 65–136; BP diastolic 49–92; PULSE 79–111; RESP 11–17; TEMP 36.8–38.4; O2SAT 90–100; BMI 29.4
--- NOTE | ~2022-12-12 | CT_ITS ---
EXAMINATION: CT brain wo con DATE: 12/12/2022 18:54 INDICATION: ams . TECHNIQUE: Computed tomography (CT) of the head was performed without intravenous contrast. The mA wa s adjusted according to patient size. Iterative reconstruction technique was employed. The dose-lengt h product was 681.00 mGy-cm. COMPARISON: 09/20/2022, 07/31/2022. FINDINGS: No acute intracranial hemorrhage or extra-axial fluid collection. 9 mm hyperdensity in the suprasellar cistern adjacent to the REANNA/MCA bifurcation, in a region obscure d by motion artifact in the prior study. No hydrocephalus, or herniation. No acute ischemic infarct. Unremarkable dural venous sinus attenuation. No acute osseous abnormality. The aerated spaces are clear. Moderate atrophy and chronic white matter change. Atherosclerotic intracranial calcification. IMPRESSION: No acute intracranial process. Possible 9 mm right anterior circulation cerebral aneurysm, consider r eferral for nonemergent, outpatient CTA of the brain for further evaluation. Reviewed, dictated and finalized at location K. IMPRESSION: No acute intracranial process. Possible 9 mm right anterior circulation cerebra l aneurysm, consider referral for nonemergent, outpatient CTA of the brain for further evaluation.
--- NOTE | ~2022-12-12 | XR_ITS ---
EXAMINATION: XR barium swallow modified DATE: 12/13/2022 13:24 INDICATION: Dysphagia. TECHNIQUE: The patient was given barium-containing material of multiple consistencies to swallow by t he speech pathologist while I performed fluoroscopy. Fluoroscopy exposure time was 0.5 minutes. The n umber of fluoroscopy images saved to the PACS was 1. Dose-area product was 1.029 Gy-cm^2. FINDINGS: There is a reduced laryngeal elevation, reduced laryngeal adduction, reduced tongue base retraction, reduced pharyngeal squeeze, vallecular residue, pyriform sinus residue, and pharyngeal wall residue. There is laryngeal penetration with thin liquids via spoon and moderately thick liquids via spoon. IMPRESSION: 1. Laryngeal penetration. 2. Please refer to the speech therapy report for recommendations. Reviewed, dictated and finalized at location A.
--- NOTE | ~2022-12-12 | XR_ITS ---
EXAMINATION: XR chest 1V portable Exam Date/Time: 12/12/2022 17:15 CDT HISTORY: sepsis, HTN, AMS, LETHARGIC Comparison: 10/20/2022. RESULT: Lines, tubes, and devices: None. Lungs and pleura: Low lung volumes with crowding. Rightward rotation. Streaky bibasilar opacities, l ikely representing scar/atelectasis. Cardiomediastinal silhouette: Stable. Other: No acute osseous or upper abdominal finding. IMPRESSION: No acute cardiopulmonary process. Reviewed, dictated and finalized at location K.
--- NOTE | ~2022-12-12 | CT_ITS ---
EXAMINATION: CT chest abdomen pelvis wo con DATE: 12/12/2022 19:00 INDICATION: sepsis . TECHNIQUE: Computed tomography (CT) of the chest, abdomen, and pelvis was performed without intraveno us contrast. Automated exposure control and iterative reconstruction technique were employed. The dos e-length product was 1162.99 mGy-cm. COMPARISON: CT abdomen pelvis 10/20/2022, [facility]PA 04/13/2015, x-ray chest 12/12/2022 FINDINGS: Examination is limited by lack of contrast and beam hardening from arm down positioning. CHEST: Thoracic aorta: No significant dilation or calcification. Lung parenchyma and airways: Dependent consolidation in the right upper lobe and left lower lobe. Ate lectasis/consolidation in the medial and dependent right lower lung. Thoracic inlet, axillae and chest wall: No thyroid or soft tissue mass. No axillary lymphadenopathy. Mediastinum: No mass or lymphadenopathy. Heart and pericardium: Cardiomegaly. No pericardial effusion. Coronary artery calcifications: Moderate. Pleura: No effusion or mass. Thoracic bones: No acute osseous finding in the chest. ABDOMEN/PELVIS: Liver: Normal. Biliary/Gallbladder: Gallbladder is normal. No bile duct dilation. Pancreas: No mass or duct dilation. Spleen: Normal. Adrenals:No mass. Kidneys: Status post right nephrectomy. Left ureteral stent, in good position. Multiple calcification s in the left kidney, left calyces, and left renal pelvis. Mild dilation of the left collecting syste m, increased since the prior. GI tract: No small or large bowel dilation. Normal appendix. Mesentery/Peritoneum: No ascites, mass, or free air. Retroperitoneum: No mass.Para-aortic lymphadenopathy. Pelvis: Pelvic organs are within normal limits Soft Tissues: Right femoral central line terminates in the distal IVC. Abdominopelvic bones: No acute osseous finding in the abdomen/pelvis. 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 Internal fixation of the rig ht femur. Chronic height loss of multiple vertebral bodies. IMPRESSION: Dependent right upper and lower lobe consolidation, may represent pneumonia in the appropriate clinic al context. Increased dilation of the left urinary collecting system, consider ureteral stent dysfunc tion and/or ascending infection. Reviewed, dictated and finalized at location K. IMPRESSION: Dependent right upper and lower lobe consolidation, may represent pneumonia in the appropriate clinical context. Increased dilation of the left urinary collec ting system, consider ureteral stent dysfunction and/or ascending infection.
--- NOTE | ~2022-12-12 | XR_ITS ---
EXAMINATION: XR retrograde pyelo w/stent LT DATE: 12/15/2022 13:51 INDICATION: Left internal ureteral stent placement TECHNIQUE: Fluoroscopic images from a left internal ureteral stent placement are submitted for review . 44 seconds of fluoroscopy time. 6 fluoroscopic images FINDINGS: Multiple stones are identified in the left kidney. There is a left double-J internal ureteral stent projecting in expected position, with proximal [place] loop at the level of the renal pelvis and distal loop in the pelvis within the bladder lumen. IMPRESSION: 1. Left internal ureteral stent placement. Please refer to real-time procedural findings for detail s. Reviewed, dictated and finalized at location A. IMPRESSION: 1. Left internal ureteral stent placement. Please refer to real-time procedur al findings for details.
--- NOTE | ~2022-12-12 | US_ITS ---
Renal-Bladder ultrasound Clinical History: Acute renal sufficiency Technique: Real-time sonographic imaging of the kidneys and urinary bladder was performed. Findings: The right kidney is not visualized. The left kidney measures 10.4 cm. There is no left hydr onephrosis or renal calculus identified. Renal cortical echogenicity is within normal limits. No left renal mass lesion is identified. The urinary bladder is collapsed around a [place] catheter. Impression: Left kidney unremarkable. Right kidney not visualized. Correlate for prior nephrectomy. Collapsed urinary bladder limits evaluation. Reviewed, dictated and finalized at location . Impression: Left kidney unremarkable. Right kidney not visualized. Correlate for prior nephrectomy. Collapsed urinary bladder limits evaluation.
--- NOTE | 2022-12-12 17:02 | ECG_ITS ---
Measurements Intervals [place] Rate: 112 P: 40 WV: 165 QRS: 5 QRSD: 80 T: 21 QT: 318 QTc: 434 Interpretive Statements SINUS TACHYCARDIA LOW QRS VOLTAGE IN PRECORDIAL LEADS CONSIDER INFERIOR INFARCT, AGE INDETERMINATE BASELINE ARTIFACT- I, II, III, AVR, AVL, AVF, V1-V2 ABNORMAL ECG COMPARED TO ECG 10/20/2022 22:48:23 NO SIGNIFICANT CHANGES Electronically Signed On 12-12-2022 21:31:58 CDT by Murali Osei D.O.
--- NOTE | 2022-12-12 17:11 | PC.NURSE ---
Unsuccessful PIV attempts at this time. Dr. Gross made aware of multiple attempts, received verbal orders to prepared for central line placement at this time.
--- NOTE | 2022-12-12 17:50 | PC.NURSE ---
Time out for central line placement to right femoral site with with this nurse and pt. correct site.
--- NOTE | 2022-12-12 18:09 | ED.AMS ---
HPI - Altered Mental Status General Chief Complaint: Altered Mental Status Stated Complaint: AMS Time Seen by Provider: 12/12/22 16:37 History of Present Illness HPI narrative: Patient is a 57-year-old female with a history of functional quadriplegia secondary to MS, schizophrenia, hyperlipidemia, hypertension presenting with altered mental status. Patient is coming from a nursing facility. She was noted to be more confused than normal today by nursing staff. Patient is normally A&O x2 at baseline. Currently she is still A&O x2. Patient keeps repeating help me. Further history limited due to altered status. Related Data Home Medications Medication Instructions Recorded Confirmed Laxative (sennosides) 8.6 mg PO PRN 12/17/22 12/17/22 acetaminophen 650 mg PO Q4-6H PRN Pain (Scale 12/17/22 12/17/22 Score 1-3) amlodipine 2.5 mg tablet 2.5 mg PO DAILY 12/17/22 12/17/22 cholecalciferol (vitamin D3) 1,000 units PO DAILY 12/17/22 12/17/22 citalopram 20 mg tablet 20 mg PO HS 12/17/22 12/17/22 clonidine HCl 0.1 mg tablet 0.1 mg PO DAILY 12/17/22 12/17/22 doxycycline hyclate 100 mg PO DAILY 12/17/22 12/17/22 famotidine 20 mg tablet 20 mg PO BID 12/17/22 12/17/22 hydrocortisone 5 mg tablet 5 mg PO DAILY 12/17/22 12/17/22 ipratropium bromide 0.02 % 1 ml inhalation DAILY 12/17/22 12/17/22 solution for inhalation lactulose 10 gram/15 mL oral 10 g PO BID 12/17/22 12/17/22 solution levofloxacin 750 tablet PO EVERY OTHER DAY 12/17/22 12/17/22 losartan 25 mg tablet 25 mg PO DAILY 12/17/22 12/17/22 metoprolol tartrate 50 mg tablet 50 mg PO BID 12/17/22 12/17/22 metronidazole 500 mg PO TID 12/17/22 12/17/22 ondansetron 4 mg disintegrating 4 mg translingual QID PRN Nausea 12/17/22 12/17/22 tablet And Vomiting polyethylene glycol 3350 17 g PO DAILY PRN Constipation 12/17/22 12/17/22 potassium chloride 20 mEq oral 20 meq PO DAILY 12/17/22 12/17/22 packet pregabalin 75 mg capsule 75 mg PO BID 12/17/22 12/17/22 trazodone 50 mg tablet 50 mg PO HS 12/17/22 12/17/22 Allergies Allergy/AdvReac Type Severity Reaction Status Date / Time No Known Allergies Allergy Verified 10/20/22 17:29 Review of Systems Review of Systems: ROS unobtainable: Yes unobtainable due to mental status PMFSH Past Medical History Medical History Anemia COPD (chronic obstructive pulmonary disease) Chronically O2 dependent on 4 L. Dementia Depression Essential (primary) hypertension Functional quadriplegia secondary to MS Generalized anxiety disorder History of ESBL E. 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 Her guardian is Abe Burnham and can be reached at [phone]. Patient is a full code at this time Smoking packs per day: 0.5 Smoking cigarettes per day: 10.0 Years smoked: 1 Smoking pack-years: 0.50 Smoking status: Former smoker Tobacco type: cigarettes Second hand tobacco smoke exposure: No Alcohol intake: never Substance use: never Lack of Transportation: No Lack of Food: Never True Current Housing: Decline to Answer Concerned About Future Housing: Decline to Answer Difficulty Paying Gas/Electric Bills: Decline to Answer Difficulty Paying for Meds: Decline to Answer Currently Unemployed: Decline to Answer Education: Decline to Answer Difficul
[2022-12-12] MEDS: LACTATED RINGERS 1,000 ML 999 ML IV CONT ×3 (18:10→19:55)
--- NOTE | 2022-12-12 18:28 | PC.NURSE ---
Abe Burnham, (guardian) call at [phone] and answering directory reported to call after hours number at [phone]. Spoke to staff of directory that would reach paint line production supervisor guardian.
[2022-12-12 18:32] LABS: Basophils Percent Auto 0.2 % (0.2-1.2); Eosinophils Absolute Auto 0.1 K/mm3 (0-0.3); Hematocrit 39.2 % (37.0-47.0); Hemoglobin 11.5 g/dL (12.0-15.0); Immature Granulocyte Absolute 0.04 K/mm3 (0.00-0.031); Immature Granulocyte Percent A 0.3 % (0-0.5); Lymphocytes Absolute Auto 1.85 K/mm3 (0.9-3.2); Lymphocytes Percent Auto 15.1 % (18.3-44.2); Mean Corpuscular HGB Conc 29.3 g/dl (32-36); Mean Corpuscular Volume 88.5 fl (80-100); Mean Platelet Volume 9.6 fl (7.4-10.4); Monocytes Absolute Auto 0.6 K/mm3 (0.1-0.6); Neutrophils Absolute Auto 9.6 K/mm3 (1.3-6.7); Neutrophils Percent Auto 78.4 % (45.5-73.1); Platelet Count Result 338 k/mm3 (150-375); Red Blood Count 4.43 M/mm3 (4.2-5.4); Red Cell Distribution Width 15.3 % (11.5-14.5); White Blood Count 12.2 K/mm3 (4.5-10.0)
[2022-12-12] MEDS: PIPERACILLIN/TAZOBACTAM SOD 4.5 GM in SODIUM CHLORIDE 0.9% IV 100 ML 200 ML IVPB (18:39)
[2022-12-12 18:40] LABS: Alanine Aminotransferase 18 U/L (6-35); Albumin Level 3.8 g/dL (3.5-5.1); Alkaline Phosphatase 231 U/L (38-126); Anion Gap 6 mmol/L (8-16); Aspartate Amino Transferase 30 U/L (14-36); Bilirubin,Total 0.5 mg/dL (0.2-1.3); Blood Urea Nitrogen 28 mg/dL (7-17); Calcium 8.8 mg/dL (8.4-10.2); Carbon Dioxide 26 mmol/L (22-30); Chloride 112 mmol/L (98-107); Estimated CRCL calculation 30 ml/min; Estimated Glomerular Filt Rate 29; Glucose 114 mg/dL (65-110); Lactic Acid Reflex 0.7 mmol/L (0.7-2.0); Lipase 128 U/L (23-300); Potassium 4.6 mmol/L (3.4-5.0); Sodium 144 mmol/L (137-145)
--- NOTE | 2022-12-12 18:40 | PC.NURSE ---
Lata Bonilla, conference planning manager guardian contact hospital and gave telephone verbal consent for eval, treat, and admission at this time.
[2022-12-12 18:51] LABS: INR 1.2; Partial Thromboplastin Time 30.8 SECONDS (22.3-36.8); Prothrombin Time 14.3 Seconds (11.1-14.7)
[2022-12-12 18:52] LABS: NT Pro B Type Natriuretic Pept 1040 pg/mL (19.9-100); Troponin I < 0.012 ng/mL (0.000-0.034)
[2022-12-12 19:07] LABS: Influenza A QL RT-PCR Negative (Negative); Influenza B QL RT-PCR Negative (Negative); SARS-CoV-2 RNA PCR Negative
[2022-12-12] MEDS: NOREPINEPHRINE 8 MG/D5W 250 ML 8 MG/250 ML BAG 9.38 MG IV CONT ×2 (19:49→20:40)
--- NOTE | 2022-12-12 20:02 | PM.IMHP ---
H&P: HPI History of Present Illness Date/Time: 12/12/22 20:02 Chief Complaint: Generalized weakness Narrative: This is a 57-year-old female with past medical history significant for MS, patient is a functional quadriplegic, generalized anxiety disorder, dementia, COPD, schizophrenia, correction resident. Patient is bed reading, wheelchair dependent. Was brought to the emergency room for evaluation due to altered mental status as per correction staff. History is mainly taking from emergency room records patient is unable to give much history. She is obtunded, oriented to person and place. Preliminary workup was significant for urinalysis with numerous WBCs present, BUN 28 creatinine 1.8, CBC leukocytes 12,000 tested negative for influenza type A type B and COVID-19 CT of chest abdomen and pelvis was reported as: IMPRESSION: Dependent right upper and lower lobe consolidation, may represent pneumonia in the appropriate clinical context. Increased dilation of the left urinary collecting system, consider ureteral stent dysfunction and/or ascending infection. Review of Systems Review of Systems: ROS unobtainable: Yes unobtainable due to mental status (Obtundation, lethargy) [facility] Past Medical History Medical History (Updated 12/13/22 @ 00:43 by Quinton Mejia MD) Anemia COPD (chronic obstructive pulmonary disease) Chronically O2 dependent on 4 L. Dementia Depression Essential (primary) hypertension Functional quadriplegia secondary to MS Generalized anxiety disorder History of ESBL E. 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 Her guardian is Abe Burnham and can be reached at [phone]. Patient is a full code at this time Smoking packs per day: 0.5 Smoking cigarettes per day: 10.0 Years smoked: 1 Smoking pack-years: 0.50 Smoking status: Never smoker Second hand tobacco smoke exposure: Yes Alcohol intake: never Substance use: never Lack of Transportation: No Lack of Food: Never True Current Housing: Decline to Answer Concerned About Future Housing: Decline to Answer Difficulty Paying Gas/Electric Bills: Decline to Answer Difficulty Paying for Meds: Decline to Answer Currently Unemployed: Decline to Answer Education: Decline to Answer Difficulty w/ Childcare or Family Care: Decline to Answer Living arrangements: correction 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ion: other Additional occupation/education comments: Disabled Gender identity (if verbalized by the patient): Female Sexual Orientation (if Verbalized by the Patient): Straight or Heterosexual Spiritual care concerns: No Agree to blood products: Yes Meds Home Medications and Allergies Home Medications Medication Instructions Recorded Confirmed Type acetaminophen 650 mg tablet 650 mg PO Q4H PRN Pain 03/24/22 12/12/22 History citalopram 20 mg tablet 20 mg PO HS 03/24/22 12/12/22 History clonidine HCl 0.1 mg tablet 0.1 mg PO DAILY 03/24/22 12/12/22 History ipratropium bromide 0.02 % 1 ml inhalation DAILY PRN 03/24/22 12/12/22 History solution for inhalation Shortness Of Breath lactulose 10 gram/15 mL oral 15 ml PO BID 03/24/22 12/12/22 History solution ondansetron 4 mg disintegrating 4 mg PO Q6H PRN Nausea 03/24/22 12/12/22 History tablet polyethylene glycol 3350 17 gram 17 g PO DAILY PRN Co
--- NOTE | 2022-12-12 21:33 | ADMGEN ---
This patient, Yesenia Perez, was admitted to Intensive Care Unit-8. Patient/family oriented to hospital policies and general routines including ID bracelet, bed and alarms, visiting hours, pain management, procedures, bathroom and other care routines, personal items, smoking policy, room service/diet, and visiting hours. Information on how to activate the Rapid Response Team has been discussed. Patient/Family are encouraged to report perceived risks to care and to ask questions if they do not understand what they are told or what they should do.
[2022-12-12 21:38] LABS: Appearance Urine Cloudy (Clear); Bacteria Urine Rare /hpf; Bilirubin Urine Negative (Negative); Blood Urine 2+ (Negative); Color Urine Yellow (Yellow); Glucose Urine UA Negative (Negative); Ketones Urine Negative (Negative); Leukocyte Esterase Ur 3+ LEU/UL (Negative); Nitrate Urine Negative (Negative); Protein Urine 2+ mg/dL (Negative); Specific Grav Ur 1.011 (1.001-1.035); Squamous Epithelial Cell Urine None seen /hpf (Few); Urobilinogen Urine 0.2 mg/dL (<2.0); WBC Urine >100 /hpf; pH Urine 7.5 (5.0-9.0)
[2022-12-12 21:44] LABS: Add Urine Microscopic? YES
[2022-12-12 23:18] LABS: Troponin I < 0.012 ng/mL (0.000-0.034)
[2022-12-13] VITALS (19 sets, daily range): BP systolic 69–160; BP diastolic 49–98; PULSE 74–111; RESP 11–18; TEMP 36.4–37.2; O2SAT 92–96; BMI 29.5
[2022-12-13 05:18] LABS: Basophils Percent Auto 0.2 % (0.2-1.2); Eosinophils Absolute Auto 0.2 K/mm3 (0-0.3); Eosinophils Percent Auto 1.4 % (0-4.4); Hematocrit 36.7 % (37.0-47.0); Immature Granulocyte Absolute 0.07 K/mm3 (0.00-0.031); Immature Granulocyte Percent A 0.5 % (0-0.5); Lymphocytes Percent Auto 6.4 % (18.3-44.2); Mean Corpuscular Volume 86.8 fl (80-100); Mean Platelet Volume 9.6 fl (7.4-10.4); Monocytes Absolute Auto 0.6 K/mm3 (0.1-0.6); Monocytes Percent Auto 4.1 % (2.6-8.5); Neutrophils Absolute Auto 12.4 K/mm3 (1.3-6.7); Neutrophils Percent Auto 87.4 % (45.5-73.1); Platelet Count Result 287 k/mm3 (150-375); Red Blood Count 4.23 M/mm3 (4.2-5.4); Red Cell Distribution Width 14.9 % (11.5-14.5); White Blood Count 14.1 K/mm3 (4.5-10.0)
[2022-12-13 05:29] LABS: Anion Gap 5 mmol/L (8-16); Blood Urea Nitrogen 24 mg/dL (7-17); Calcium 8.7 mg/dL (8.4-10.2); Carbon Dioxide 25 mmol/L (22-30); Chloride 111 mmol/L (98-107); Estimated CRCL calculation 33 ml/min; Estimated Glomerular Filt Rate 33; Glucose 114 mg/dL (65-110); Potassium 4.4 mmol/L (3.4-5.0); Sodium 141 mmol/L (137-145)
--- NOTE | 2022-12-13 07:58 | WPDCNINT ---
Assessment and Plan Assessment and plan (1) Septic shock: Code(s): A41.9 - Sepsis, unspecified organism; R65.21 - Severe sepsis with septic shock Status: Acute Assessment and Plan: patient presented with hypotension weighted white count. she appears to have septic shock secondary to UTI and pneumonia pneumonia could be healthcare associated versus aspiration she received 3 L of IV fluid and I will continue maintenance IV fluids at this time she was started on Levophed infusion which is currently off as her blood pressures improved. I will continue to monitor and restart Levophed if needed. change her steroids to IV empiric vancomycin and Zosyn patient has history of multidrug resistant E coli in her urine which was sensitive to Zosyn in the past check swallow evaluation blood and urine cultures sent and pending. (2) HCAP (healthcare-associated pneumonia): Code(s): J18.9 - Pneumonia, unspecified organism Status: Acute Assessment and Plan: see above (3) Urinary tract infection: Code(s): N39.0 - Urinary tract infection, site not specified Status: Acute Assessment and Plan: see above (4) History of ESBL E. coli infection: Code(s): Z86.19 - Personal history of other infectious and parasitic diseases Status: Acute Assessment and Plan: see above (5) RADHA (acute kidney injury): Code(s): N17.9 - Acute kidney failure, unspecified Status: Acute Assessment and Plan: patient presented with elevated creatinine of 1.8 which is likely secondary to sepsis and shock patient has only solitary left kidney and is status post right nephrectomy. she has a stent on the left side the CT scan shows?Increased dilation of the left urinary collecting system, consider ureteral stent dysfunction and/or ascending infection. urology consult continue IV fluids Check CK level renal ultrasound pending monitor urine output electrolytes and creatinine (6) Solitary left kidney: Status: Acute Assessment and Plan: see above (7) Ureteral stent present: Code(s): Z96.0 - Presence of urogenital implants Status: Acute Assessment and Plan: see above (8) Altered mental state: Code(s): R41.82 - Altered mental status, unspecified Status: Acute Assessment and Plan: patient now alert awake with normal speech. She is not oriented but that is her baseline. Likely secondary to sepsis and hypotension which has improved. 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 Will wait for kidney function to improve before CTA Plan DVT prophylaxis - Lovenox Stress ulcer prophylaxis - Pepcid Nutrition - consult speech was swallow evaluation Code Status - Full Code Total Critical Care Time -35 minutes Due to a high probability of clinically significant, life threatening deterioration, the patient required my highest level of preparedness to intervene emergently and I personally spent this critical care time directly and personally managing the patient. This critical care time included obtaining a history; examining the patient; pulse oximetry; ordering and review of studies; arranging urgent treatment with development of a management plan; evaluation of patient's response to treatment; frequent reassessment; and discussions with other providers. It was exclusive of separately billable procedures and treating other patients and teaching time. Please see Assessment and Plan section and the rest of the note for further information on patient assessment and treatment Distance Learning Coordinator Consult Note Consult date: 12/13/22 Reason for consult: septic shock HPI: Yesenia Perez is a 57 year old female with past medical history significant for MS, patient is a functional q
[2022-12-13] MEDS: HYDROcodone/acetaminophen (*CRX) 5-325 MG TABLET 1 TAB PO (08:24)
[2022-12-13] MEDS: FAMOTIDINE 20 MG TABLET PO ×2 (08:26→20:33)
[2022-12-13] MEDS: LACTATED RINGERS 1,000 ML 75 ML IV CONT ×2 (08:28→21:48)
[2022-12-13] MEDS: LACTULOSE 20 GM/30 ML UDC 15 GM PO ×2 (08:36→18:01)
[2022-12-13] MEDS: HYDROCORTISONE SODIUM SUCCINATE 100 MG/2 ML VIAL 10 MG IV PUSH (08:36)
[2022-12-13] MEDS: ENOXAPARIN 40 MG/0.4 ML SYRINGE SUB-Q (08:37)
[2022-12-13] MEDS: PIPERACILLN/TAZ 3.375GM/NS50ML 3.375 GM/50 ML BAG IVPB ×3 (08:39→18:01)
[2022-12-13] MEDS: NOREPINEPHRINE 8 MG/D5W 250 ML 8 MG/250 ML BAG 9.38 MG IV CONT (10:00)
[2022-12-13] MEDS: ALBUMIN HUMAN 5% 25 GM/500 ML BTL IV CONT (11:19)
--- NOTE | 2022-12-13 12:38 | WPDURCON ---
Assessment and Plan Assessment and plan (1) Septic shock: Code(s): A41.9 - Sepsis, unspecified organism; R65.21 - Severe sepsis with septic shock Status: Acute Assessment and Plan: Continue Zosyn and Vancomycin, tailor to culture results. (2) Sepsis: Code(s): A41.9 - Sepsis, unspecified organism Status: Acute (3) RADHA (acute kidney injury): Code(s): N17.9 - Acute kidney failure, unspecified Status: Acute Assessment and Plan: Improved, will continue to monitor. Plan to exchange her left stent on Sunday with Dr. Can. Obtain Consent: Cystoscopy, left stent exchange, left retrograde pyelogram. Keep NPO after midnight on 12/14/22. (4) Pyelonephritis: Code(s): N12 - Tubulo-interstitial nephritis, not specified as acute or chronic Status: Acute (5) Retained ureteral stent: Code(s): Z96.0 - Presence of urogenital implants Status: Acute Urology Consult Note HPI Date Seen: 12/13/22 Time Seen: 09:00 Requesting Physician: Quinton Mejia MD Primary Care Provider: Ana MooreMD Consult Narrative Reason for consult: UTI/Sepsis/Retention Narrative: Yesenia Perez is a 57 year old female who presented to the ER 12/12/22 for acute confusion and hypertension. She is patient of ours that had a right nephrectomy with Dr. Martinez in 03/2022 and a left stent placement at [facility] in 09/21. Her current CT from yesterday shows increased dilation of the left urinary collecting system and the left stent in position. She did have an elevated creatinine initially however it has declined slightly since starting antibiotics for what looks like a UTI. Urine and blood cultures are pending, WBC 14.1, she is tachycardic and afebrile. She is currently on Zosyn and Vancomycin. Review of Systems Respiratory: Respiratory: Denies no additional respiratory complaints Genitourinary: Genitourinary: Reports hematuria, Denies dysuria, Denies pelvic pain, Reports flank pain, Denies urinary incontinence, Denies urinary hesitancy and Denies urinary urgency PMFSH Past Medical History Medical History Anemia COPD (chronic obstructive pulmonary disease) Chronically O2 dependent on 4 L. Dementia Depression Essential (primary) hypertension Functional quadriplegia secondary to MS Generalized anxiety disorder History of ESBL E. 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 Her guardian is Abe Burnham and can be reached at [phone]. Patient is a full code at this time Smoking packs per day: 0.5 Smoking cigarettes per day: 10.0 Years smoked: 1 Smoking pack-years: 0.50 Smoking status: Never smoker Second hand tobacco smoke exposure: Yes Alcohol intake: never Substance use: never Lack of Transportation: No Lack of Food: Never True Current Housing: Decline to Answer Concerned About Future Housing: Decline to Answer Difficulty Paying Gas/Electric Bills: Decline to Answer Difficulty Paying for Meds: Decline to Answer Currently Unemployed: Decline to Answer Education: Decline to Answer Difficulty w/ Childcare or Family Care: Decline to Answer Living arrangements: residential 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ion: other Additional occupation/education comments: Disabled Gender
--- NOTE | 2022-12-13 13:57 | PCSTNOTE ---
Patient seen for modified barium swallow study. Due to patient's size and posture a clear view below the vocal folds was not possible. Patient was given thin liquid by spoon in 3ml and 5ml amounts. Penetration to vocal folds was observed. Moderately thickened liquids by spoon in 3ml amount showed trace penetration. No aspiration was observed. Pureed consistency by spoon was within normal limits, no penetration or aspiration. Patient was unable/unwilling to follow directions to try any compensatory strategies during test. Based on the results, recommended diet texture and liquid consistency for this patient is minced/moist (level 5) with moderately thickened liquids. Swallowing precaution recommendations placed in chart. No further speech therapy is recommended. Thank you for the referral of this patient.
[2022-12-13] MEDS: CENTRAL LINE FLUSH 10 ML IV PUSH ×2 (14:10→21:48)
[2022-12-13] MEDS: HYDROCORTISONE SODIUM SUCCINATE 100 MG/2 ML VIAL IV PUSH ×2 (14:40→21:48)
[2022-12-13] MEDS: ACETAMINOPHEN 325 MG TABLET 650 MG PO (14:40)
[2022-12-13] MEDS: CITALOPRAM HYDROBROMIDE 20 MG TABLET PO (20:33)
[2022-12-14] VITALS (17 sets, daily range): BP systolic 130–172; BP diastolic 85–119; PULSE 83–117; RESP 14–23; TEMP 36.8–37.2; O2SAT 91–97
[2022-12-14] MEDS: PIPERACILLN/TAZ 3.375GM/NS50ML 3.375 GM/50 ML BAG IVPB ×4 (00:22→17:34)
[2022-12-14] MEDS: ACETAMINOPHEN 325 MG TABLET 650 MG PO (01:06)
[2022-12-14 04:49] LABS: Hematocrit 29.5 % (37.0-47.0); Hemoglobin 9.4 g/dL (12.0-15.0); Mean Corpuscular HGB Conc 31.9 g/dl (32-36); Mean Corpuscular Hemoglobin 25.8 pg (26-34); Mean Corpuscular Volume 80.8 fl (80-100); Mean Platelet Volume 9.8 fl (7.4-10.4); Platelet Count Result 246 k/mm3 (150-375); Red Blood Count 3.65 M/mm3 (4.2-5.4); Red Cell Distribution Width 14.1 % (11.5-14.5); White Blood Count 7.5 K/mm3 (4.5-10.0)
[2022-12-14 05:06] LABS: Alanine Aminotransferase 16 U/L (6-35); Albumin Level 3.6 g/dL (3.5-5.1); Alkaline Phosphatase 165 U/L (38-126); Anion Gap 5 mmol/L (8-16); Aspartate Amino Transferase 21 U/L (14-36); Bilirubin,Total 0.6 mg/dL (0.2-1.3); Blood Urea Nitrogen 20 mg/dL (7-17); Calcium 8.7 mg/dL (8.4-10.2); Carbon Dioxide 24 mmol/L (22-30); Chloride 111 mmol/L (98-107); Estimated CRCL calculation 38 ml/min; Estimated Glomerular Filt Rate 39; Glucose 122 mg/dL (65-110); Magnesium 1.9 mg/dL (1.6-2.3); Potassium 3.7 mmol/L (3.4-5.0); Sodium 140 mmol/L (137-145)
[2022-12-14] MEDS: HYDROCORTISONE SODIUM SUCCINATE 100 MG/2 ML VIAL IV PUSH (05:25)
[2022-12-14] MEDS: CENTRAL LINE FLUSH 10 ML IV PUSH ×3 (05:25→20:35)
[2022-12-14] MEDS: LABETALOL HCL INJ 100 MG/20 ML VIAL 20 MG IV PUSH (06:38)
--- NOTE | 2022-12-14 08:59 | WPDINTPN ---
Progress Note: A&P Assessment and Plan (1) Septic shock: Code(s): A41.9 - Sepsis, unspecified organism; R65.21 - Severe sepsis with septic shock Status: Acute Assessment and Plan: patient presented with hypotension and elevated white count. she appears to have septic shock secondary to UTI and pneumonia pneumonia could be healthcare associated versus aspiration she received 3 L of IV fluid and I will continue but decreased maintenance IV fluids at this time weaned off of Levophed blood culture 1/2 is growing Gram-positive cocci. Continue empiric vancomycin and Zosyn for now patient has history of multidrug resistant E coli in her urine which was sensitive to Zosyn in the past she had abnormal results of swallow evaluation and is on modified diet now urine cultures negative (2) HCAP (healthcare-associated pneumonia): Code(s): J18.9 - Pneumonia, unspecified organism Status: Acute Assessment and Plan: see above (3) Urinary tract infection: Code(s): N39.0 - Urinary tract infection, site not specified Status: Acute Assessment and Plan: see above (4) History of ESBL E. coli infection: Code(s): Z86.19 - Personal history of other infectious and parasitic diseases Status: Acute Assessment and Plan: see above (5) RADHA (acute kidney injury): Code(s): N17.9 - Acute kidney failure, unspecified Status: Acute Assessment and Plan: patient presented with elevated creatinine of 1.8 which is likely secondary to sepsis and shock patient has only solitary left kidney and is status post right nephrectomy. she has a stent on the left side the CT scan shows?Increased dilation of the left urinary collecting system, consider ureteral stent dysfunction and/or ascending infection. urology following continue but decrease rate IV fluids renal ultrasound reviewed monitor urine output electrolytes and creatinine (6) Solitary left kidney: Status: Acute Assessment and Plan: see above (7) Ureteral stent present: Code(s): Z96.0 - Presence of urogenital implants Status: Acute Assessment and Plan: see above (8) Altered mental state: Code(s): R41.82 - Altered mental status, unspecified Status: Acute Assessment and Plan: patient now alert awake with normal speech. She is not oriented but that is her baseline. Likely secondary to sepsis and hypotension which has improved. 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 Will wait for kidney function to improve before CTA Plan DVT prophylaxis - Lovenox Stress ulcer prophylaxis - Pepcid Nutrition - on modified diet after swallow evaluation Code Status - Full Code transfer out of ICU today Subjective Date/time seen: 12/14/22 Overnight events reviewed. Afebrile blood pressures improved and patient has remained off of Levophed urine output improved but still on the lower side sinus tachycardia on the monitor other Vitals acceptable she denies any complaints and would like to be left alone and she states she wants to sleep and rest. She denies any headache this morning. Patient denies fever, chest pain, shortness of breath, cough, nausea vomiting, abdominal pain,, diarrhea, headache or constipation. All other systems were reviewed and were negative Review of Systems Review of Systems: All systems reviewed & are unremarkable except as noted in HPI and below ( subjective) Exam Narrative: General: Pt is alert awake and in NAD pleasantly confused Lungs/Chest: Trachea central Clear BS B/L, No crackles or wheezing. Cardiac: RRR. Normal S1 S2. No murmurs Circulation: Pedal pulses are intact and symmetrical. Abdomen: Normal bowel sounds. Soft. NT. ND. Extremities: No c
[2022-12-14] MEDS: POTASSIUM CHLORIDE 20 MEQ PACKET (FOR LIQUID) 40 MEQ PO (09:48)
[2022-12-14] MEDS: ENOXAPARIN 40 MG/0.4 ML SYRINGE SUB-Q (09:49)
[2022-12-14] MEDS: amLODIPine BESYLATE 2.5 MG TABLET PO (09:49)
[2022-12-14] MEDS: LACTULOSE 20 GM/30 ML UDC 15 GM PO ×2 (09:49→17:34)
[2022-12-14] MEDS: METOPROLOL TARTRATE 25 MG TABLET PO ×2 (09:49→20:35)
[2022-12-14] MEDS: FAMOTIDINE 20 MG TABLET PO (09:49)
[2022-12-14] MEDS: LACTATED RINGERS 1,000 ML 50 ML IV CONT (09:50)
--- NOTE | 2022-12-14 10:40 | PCFNICU ---
ICU Rounding Note: Pt current nutrition is Low Fat/Minced and Moist, Level 5 with Moderately thick liquids, Level 3. Nutrition recommendation: Ensure compact BID. Last recorded weight is 73.2 kg. Bowel Motility:+Bm reported 12/13 Labs Reviewed:Glu 122, GFR 39, BUN 20, Cr 1.4, Hgb 9.4 Meds Noted:Miralax, Vancomycin, Zosyn, Atrovent, Lactulose,Senokot Skin: WNL Additional Notes: Diet order has upgraded to a Low Fat/Minced and Moist, Level 5 diet with Moderately thick liquids, Level 3. patient is a feeder. Spoke with nursing this morning, patient refused breakfast. Recommend addition of diet supplements for additional kcal and protein needs. Following daily in ICU rounds. Monitoring diet advancement, intakes, weights, labs, plan of care, swallow ability Follow up in 5 days.
[2022-12-14] MEDS: CITALOPRAM HYDROBROMIDE 20 MG TABLET PO (20:35)
[2022-12-15] VITALS (22 sets, daily range): BP systolic 153–183; BP diastolic 99–132; PULSE 75–101; RESP 14–24; TEMP 36.2–36.9; O2SAT 95–100
[2022-12-15] MEDS: PIPERACILLN/TAZ 3.375GM/NS50ML 3.375 GM/50 ML BAG IVPB ×3 (00:02→12:23)
[2022-12-15] MEDS: ACETAMINOPHEN 325 MG TABLET 650 MG PO (00:09)
[2022-12-15] MEDS: LACTATED RINGERS 1,000 ML 50 ML IV CONT (05:22)
[2022-12-15] MEDS: CENTRAL LINE FLUSH 10 ML IV PUSH ×3 (05:22→21:45)
[2022-12-15 05:38] LABS: Hematocrit 31.5 % (37.0-47.0); Mean Corpuscular HGB Conc 31.7 g/dl (32-36); Mean Corpuscular Hemoglobin 26.2 pg (26-34); Mean Corpuscular Volume 82.5 fl (80-100); Mean Platelet Volume 9.5 fl (7.4-10.4); Platelet Count Result 311 k/mm3 (150-375); Red Blood Count 3.82 M/mm3 (4.2-5.4); Red Cell Distribution Width 14.6 % (11.5-14.5); White Blood Count 9.9 K/mm3 (4.5-10.0)
[2022-12-15 05:55] LABS: Alanine Aminotransferase 16 U/L (6-35); Albumin Level 3.8 g/dL (3.5-5.1); Alkaline Phosphatase 160 U/L (38-126); Anion Gap 6 mmol/L (8-16); Aspartate Amino Transferase 19 U/L (14-36); Bilirubin,Total 0.6 mg/dL (0.2-1.3); Blood Urea Nitrogen 17 mg/dL (7-17); Carbon Dioxide 24 mmol/L (22-30); Chloride 110 mmol/L (98-107); Estimated CRCL calculation 45 ml/min; Estimated Glomerular Filt Rate 46; Glucose 93 mg/dL (65-110); Magnesium 1.8 mg/dL (1.6-2.3); Sodium 140 mmol/L (137-145)
--- NOTE | 2022-12-15 06:58 | WPDHPUPDATE1 ---
History and Physical Update Update Date/Time: 12/15/22 06:58 History and Physical has been reviewed, including an updated exam of the patient. There are NO changes in the patient's condition. Risks, benefits, and alternatives have been discussed and questions answered. Patient agrees to proceed with procedure.
[2022-12-15] MEDS: FAMOTIDINE 20 MG TABLET PO ×2 (08:56→20:23)
[2022-12-15] MEDS: HYDROCORTISONE 5 MG TABLET PO (08:56)
[2022-12-15] MEDS: amLODIPine BESYLATE 2.5 MG TABLET PO (08:56)
[2022-12-15] MEDS: METOPROLOL TARTRATE 25 MG TABLET PO ×2 (08:56→16:05)
--- NOTE | 2022-12-15 12:44 | WPDANESEPPF ---
Anes - Initial Pre Proc Eval Procedure: Operation Date: 12/15/22 11:30 Proposed Procedures p Cystoscopy, Left Stent Exchange, Left Retrograde Pyelogram - Aidan Can MD Date/Time: 12/15/22 12:44 Surgeon: Quinton Mejia MD Pre Op Diagnosis: septic shock Patient Data Age: 57 Gender: F Height: 1.57 m Weight: 75.9 kg Last Vital Signs Temp 98 F 12/15/22 10:25 Pulse 99 12/15/22 10:25 Resp 20 12/15/22 10:25 BP 166/118 H 12/15/22 10:25 Pulse Ox 96 12/15/22 10:25 O2 Del Method Room Air 12/15/22 10:25 O2 Flow Rate 3 12/12/22 16:03 Allergies Allergy/AdvReac Type Severity Reaction Status Date / Time No Known Allergies Allergy Verified 10/20/22 17:29 Home Medications Medication Instructions Recorded Confirmed Type acetaminophen 650 mg tablet 650 mg PO Q4H PRN Pain 03/24/22 12/12/22 History citalopram 20 mg tablet 20 mg PO HS 03/24/22 12/12/22 History clonidine HCl 0.1 mg tablet 0.1 mg PO DAILY 03/24/22 12/12/22 History ipratropium bromide 0.02 % 1 ml inhalation DAILY PRN 03/24/22 12/12/22 History solution for inhalation Shortness Of Breath lactulose 10 gram/15 mL oral 15 ml PO BID 03/24/22 12/12/22 History solution ondansetron 4 mg disintegrating 4 mg PO Q6H PRN Nausea 03/24/22 12/12/22 History tablet polyethylene glycol 3350 17 gram 17 g PO DAILY PRN Constipation 03/24/22 12/12/22 History oral powder packet (Miralax) sennosides 8.6 mg tablet (senna) 8.6 mg PO DAILY PRN Constipation 03/24/22 12/12/22 History trazodone 50 mg tablet 0.5 tablet PO HS 03/24/22 12/12/22 History famotidine 20 mg tablet 20 mg PO Q12HR #60 tabs 10/29/22 12/12/22 Rx losartan 25 mg tablet 25 mg PO DAILY #30 tabs 10/29/22 12/12/22 Rx metoprolol tartrate 50 mg tablet 75 mg PO BID #60 tabs 10/29/22 12/12/22 Rx amlodipine 2.5 mg tablet 2.5 mg PO DAILY 12/12/22 12/12/22 History cholecalciferol (vitamin D3) 1,000 units PO DAILY 12/12/22 12/12/22 History hydrocortisone 5 mg tablet 5 mg PO DAILY 12/12/22 12/12/22 History pregabalin 75 mg capsule 75 mg PO BID 12/12/22 12/12/22 History Laboratory Tests 12/15/22 12/15/22 05:17 05:17 WBC 9.9 K/mm3 K/mm3 (4.5-10.0) RBC 3.82 M/mm3 L M/mm3 (4.2-5.4) Hgb 10.0 g/dL L g/dL (12.0-15.0) Hct 31.5 % L % (37.0-47.0) MCV 82.5 fl fl (80-100) MCH 26.2 pg pg (26-34) MCHC 31.7 g/dl L g/dl (32-36) RDW 14.6 % H % (11.5-14.5) Plt Count 311 k/mm3 k/mm3 (150-375) MPV 9.5 fl fl (7.4-10.4) Sodium 140 mmol/L mmol/L (137-145) Potassium 3.0 mmol/L L mmol/L (3.4-5.0) Chloride 110 mmol/L H mmol/L (98-107) Carbon Dioxide 24 mmol/L mmol/L (22-30) Anion Gap 6 mmol/L L mmol/L (8-16) BUN 17 mg/dL mg/dL (7-17) Creatinine 1.20 mg/dL H mg/dL (0.7-1.0) Estim Creat Clear Calc 45 ml/min ml/min Estimated GFR 46 L (59 - ) Glucose 93 mg/dL mg/dL (65-110) Calcium 9.0 mg/dL mg/dL (8.4-10.2) Magnesium 1.8 mg/dL mg/dL (1.6-2.3) Total Bilirubin 0.6 mg/dL mg/dL (0.2-1.3) AST 19 U/L U/L (14-36) ALT 16 U/L U/L (6-35) Alkaline Phosphatase 160 U/L H U/L (38-126) Total Protein 7.0 g/dL g/dL (6.3-8.2) Albumin 3.8 g/dL g/dL (3.5-5.1) Patient hx anesthesia problems: none Family hx anesthesia problems: none Results Review: All pre-operative results and documents have been reviewed as part of the pre-operative evaluation. [facility] Past Medical History Medical History Anemia COPD (chronic obstructive pulmonary disease) Chronically O2 dependent on 4 L. Dementia Depression Essential (primary) hypertension Functional quadriplegia secondary to MS Generalized anxiety disorder History of ESBL E. coli infection Hyperlipidemia Multiple sclerosis Schizophrenia Ureteral stent present XGP (faviano
[2022-12-15] MEDS: LACTATED RINGERS 1,000 ML 30 ML IV CONT (12:52)
--- NOTE | 2022-12-15 13:50 | W.PM.PROC2 ---
Procedure Note - Detailed Date of Procedure 12/15/22 Pre-op Diagnosis Retained left ureteral stent Post-op Diagnosis Same Procedure Performed Cystoscopy, left retrograde pyelography and left ureteral stent exchange Surgeon Aidan Can MD Anesthesia MAC Description of Procedure Patient is brought the op suite where she has prepped draped in routine sterile fashion a very modified frog-leg position. She has a very fixed pelvis and very unusual external genitalia. This makes identification of her external urethral meatus difficult. Finally I can do it with a flexible cystoscope. I identified a ureteral stent in removed. Retrograde pyelography is undertaken with a angiographic catheter to outline the renal pelvis and ensure appropriate placement of a new stent. A new 6 F variable length stent this position over a wire with the proximal coil in the renal pelvis and distal coil in the bladder. Scopes and wires removed. She was taken to the recovery room good condition. Drains Yes Packing No Pathology None sent Complications No immediate complications Condition Stable Disposition PACU
--- NOTE | 2022-12-15 14:02 | PM.IMPN ---
Progress Note: A&P Assessment and Plan (1) Septic shock: Code(s): A41.9 - Sepsis, unspecified organism; R65.21 - Severe sepsis with septic shock Status: Acute Assessment and Plan: patient presented with hypotension and elevated white count. she appears to have septic shock secondary to UTI and pneumonia pneumonia could be healthcare associated versus aspiration she received 3 L of IV fluid and I will continue but decreased maintenance IV fluids at this time weaned off of Levophed blood culture 1/2 is growing Gram-positive cocci. Continue empiric vancomycin and Zosyn for now patient has history of multidrug resistant E coli in her urine which was sensitive to Zosyn in the past she had abnormal results of swallow evaluation and is on modified diet now urine cultures negative (2) HCAP (healthcare-associated pneumonia): Code(s): J18.9 - Pneumonia, unspecified organism Status: Acute Assessment and Plan: see above (3) Urinary tract infection: Code(s): N39.0 - Urinary tract infection, site not specified Status: Acute Assessment and Plan: see above (4) History of ESBL E. coli infection: Code(s): Z86.19 - Personal history of other infectious and parasitic diseases Status: Acute Assessment and Plan: see above (5) RADHA (acute kidney injury): Code(s): N17.9 - Acute kidney failure, unspecified Status: Acute Assessment and Plan: patient presented with elevated creatinine of 1.8 which is likely secondary to sepsis and shock patient has only solitary left kidney and is status post right nephrectomy. she has a stent on the left side the CT scan shows?Increased dilation of the left urinary collecting system, consider ureteral stent dysfunction and/or ascending infection. urology following continue but decrease rate IV fluids renal ultrasound reviewed monitor urine output electrolytes and creatinine (6) Solitary left kidney: Status: Acute Assessment and Plan: see above (7) Ureteral stent present: Code(s): Z96.0 - Presence of urogenital implants Status: Acute Assessment and Plan: see above (8) Altered mental state: Code(s): R41.82 - Altered mental status, unspecified Status: Acute Assessment and Plan: patient now alert awake with normal speech. She is not oriented but that is her baseline. Likely secondary to sepsis and hypotension which has improved. 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 Will wait for kidney function to improve before CTA Plan Septic shock s/p Levophed blood 1 bottle growing Staph epidermidis MRSA screen positive Continue Vanc and Cefepime and Flagyl stop ZOsyn to avoid renal insufficiency HAP L upper and lower lobes Continue care above and monitor MRSA screen positive UTI with ureteral stone s/p ureteral stent hx of ESBL Continue Imipenem monitor cultures RADHA improving patient with solitary kidney AMS alert and confused but baseline monitor DVT prophylaxis - Lovenox Nutrition - on modified diet after swallow evaluation Code Status - Full Code awaiting trasnfer out of ICU Subjective Date/time seen: 12/15/22 14:02 Patient was comfortable, no overnight events and off Levophed. Went to Cystoscopy this morning, with left ureteral stent placed Review of Systems Review of Systems: All systems reviewed & are unremarkable except as noted in HPI and below ( subjective) ROS unobtainable: Yes unobtainable due to medical condition and unobtainable due to mental status (Obtundation, lethargy) Exam Narrative: General: Pt is alert awake and in NAD pleasantly confused Lungs/Chest: Trachea central Clear BS B/L, No crackles or wheezing.
[2022-12-15] MEDS: fentaNYL CITRATE INJ (*CRX) 100 MCG/2 ML VIAL 25 MCG IV PUSH ×2 (14:28→14:31)
[2022-12-15] MEDS: CEFEPIME 2 GM/NS 50 ML 2 GM/50 ML BAG IVPB (16:04)
[2022-12-15] MEDS: KCL 40 MEQ/WATER 100 ML 100 ML 25 ML IVPB (16:05)
[2022-12-15] MEDS: POTASSIUM CHLORIDE 20 MEQ PACKET (FOR LIQUID) 40 MEQ FEED TUBE (16:05)
[2022-12-15] MEDS: LACTULOSE 20 GM/30 ML UDC 15 GM PO (16:13)
--- NOTE | 2022-12-15 16:55 | PC.NURSE ---
This patient, Yesenia Perez, was transferred to [[id number]] on 12/15/22 at 1655. Personal belongings sent with patient. Report given to [Astrid ALEJANDRO]. Appropriate documentation sent with patient.
[2022-12-15] MEDS: METOPROLOL TARTRATE 50 MG TAB PO (19:39)
[2022-12-15] MEDS: traZODone HCL 25 MG TABLET PO (20:23)
[2022-12-15] MEDS: CITALOPRAM HYDROBROMIDE 20 MG TABLET PO (20:23)
[2022-12-15 21:12] LABS: Vancomycin Trough 19.5 ug/mL (10.0-20.0)
[2022-12-16] VITALS (8 sets, daily range): BP systolic 156–193; BP diastolic 96–121; PULSE 84–112; RESP 16–20; TEMP 36.5–36.8; O2SAT 96–98
[2022-12-16 01:45] LABS: Glucose Point of Care 117 mg/dl (65-105)
[2022-12-16] MEDS: CEFEPIME 2 GM/NS 50 ML 2 GM/50 ML BAG IVPB (02:38)
[2022-12-16] MEDS: HYDROcodone/acetaminophen (*CRX) 5-325 MG TABLET 1 TAB PO (04:38)
[2022-12-16] MEDS: CENTRAL LINE FLUSH 10 ML IV PUSH (05:41)
--- NOTE | 2022-12-16 06:50 | PC.NURSE ---
PT IS EXTREMELY CONTACTED. GETTING ACCURATE BLOOD PRESSURES CONTINUES TO BE AN ISSUE RELATED TO THE CONTRACTION OF BOTH ARMS AND LEGS WELL THE PT BECOMING ANXIOUS AND PANICKING WHEN THE BP CUFF TIGHTENS ON HER.
[2022-12-16] MEDS: FAMOTIDINE 20 MG TABLET PO (08:57)
[2022-12-16] MEDS: HYDROCORTISONE 5 MG TABLET PO (08:57)
[2022-12-16] MEDS: METOPROLOL TARTRATE 50 MG TAB PO (08:58)
[2022-12-16] MEDS: amLODIPine BESYLATE 2.5 MG TABLET PO (08:58)
[2022-12-16] MEDS: ENOXAPARIN 40 MG/0.4 ML SYRINGE SUB-Q (08:59)
[2022-12-16] MEDS: LACTULOSE 20 GM/30 ML UDC 15 GM PO (08:59)
[2022-12-16] MEDS: LOSARTAN POTASSIUM 25 MG TABLET PO (09:52)
--- NOTE | 2022-12-16 11:35 | PM.DS ---
DS: Admitting Diagnosis Discharge Date 12/16/22 Admitting Diagnosis Sepsis HAP Radha DS: Discharge Diagnosis Discharge Diagnosis Plan Septic shock s/p Levophed blood 1 bottle growing Staph epidermidis MRSA screen positive Completed 4 days of Vanc and Cefepime and Flagyl Discharged on 5 days of Doxycline, flagyl and Levaquin. f/u witih PCP in 3-5 days HAP L upper and lower lobes Continue care above and monitor MRSA screen positive cotnieu above care UTI with ureteral stone s/p ureteral stent hx of ESBL Continue abx as above f/u with urology as scheduled ( call office ) RADHA improving Cr 1.2, f/u CMP in 3 days. f/u with PCP AMS alert and confused but baseline DS: Summary Hospital Course Hospital Course: This is a 57-year-old female with past medical history significant for MS, patient is a functional quadriplegic, generalized anxiety disorder, dementia, COPD, schizophrenia, [facility] resident.? Patient is bed reading, wheelchair dependent.? Was brought to the emergency room for evaluation due to altered mental status as per fdc staff.? History is mainly taking from emergency room records patient is unable to give much history.? She is obtunded, oriented to person and place.? Preliminary workup was significant for urinalysis with numerous WBCs present, BUN 28 creatinine 1.8, CBC leukocytes 12,000 tested negative for influenza type A type B and COVID-19 CT of chest abdomen and pelvis was reported as: Dependent right upper and lower lobe consolidation, may represent pneumonia in the appropriate clinical context. Increased dilation of the left urinary collecting system, consider ureteral stent dysfunction and/or ascending infection. Patient underwent cystoscopy, left ureteral stent placed. Patient improved on broad spectrum abx , culture positive for S epidermitis in one bottle, MRSA screen positive. Patient improved to baseline and discharged on 5 more days of Flagyl, Doxycycline and Levaquin, renally dosed. f/u with PCP and urology. Time Spent with Patient Time attestation: Total time spent providing and/or coordinating discharge services: DS: Data Data Completed and Pending Labs on day of discharge: Labs from last 24 hours 12/16/22 12/15/22 01:40 20:34 POC Capillary Glucose 117 H Vancomycin Trough 19.5 Preliminary micro results at discharge 12/12/22 18:38 Blood Culture - Preliminary Blood Staphylococcus epidermis 12/12/22 18:37 Blood Culture - Preliminary Blood Discharge Plan Discharge Attending physician on discharge: Tammi Bailey Consulting providers: Ferny Greco ; Suresh Sommer Discharging Clinician: Tammi Bailey Anticipated Discharge Date/Time: 12/16/22 11:18 Patient Disposition: NH [facility]/As[facility] Living Activity: as tolerated Diet: as tolerated Patient Instructions: Antibiotic Form, Piperacillin/Tazobactam (By injection), Pain Management (DC), Sepsis (DC) Stand Alone Forms: General Discharge Information Follow-up/Referrals: Oscar,Ana Gardner MD [Primary Care Provider] - (f/u with PCP in 3-5 days ) Suresh Sommer MD [Physician] - (call office for follow up on stent removal ) Discharge Medications: New levofloxacin 750 mg tablet 750 mg PO Q48H Qty: 3 0RF metronidazole 500 mg tablet 500 mg PO Q8H Qty: 15 0RF doxycycline hyclate 100 mg tablet 100 mg PO DAILY Qty: 10 0RF Continued acetaminophen 650 mg Tablet 650 mg PO Q4H PRN (Reason: Pain) citalopram 20 mg tablet 20 mg PO HS clonidine HCl 0.1 mg tablet 0.1 mg PO DAILY polyethylene glycol 3350 [Miralax] 17 gram Powder In Packet 17 g PO DAILY PRN (Reason: Constipation) ipratropium bromide 0.02 % solution 1 ml inhalation DAILY PRN (Reason: Shortness Of Breath) lactulose 10 gram/15 mL Solution 15 ml PO BID sennosides [senna] 8.6 mg Tablet 8.6 mg PO DAILY PRN (Reason: Constipation)
[2022-12-16 12:37] LABS: EDCOVIDSCREEN Negative (Negative)
== END 2022-12-16 15:00 | DRG 853 ==
LOC: ANHED 16:37 → ANHICU 21:09 → ANH2MED 12-15 17:02
PROVIDERS: Internal Medicine; Urology; Admitting Provider Internal Medicine; Emergency Provider Emergency Medicine; PCP Internal Medicine; Visit Provider Internal Medicine
PROC: 0T778DZ Dilation of Left Ureter with Intraluminal Device, Via Natural or Artificial Opening Endoscopic (ICD-10-PCS; CPT 52352; principal; 2022-12-15 11:30)
DX: A41.9 Sepsis, unspecified organism (principal); J18.9 Pneumonia, unspecified organism; R65.21 Severe sepsis with septic shock; R53.2 Functional quadriplegia; N39.0 Urinary tract infection, site not specified; N20.1 Calculus of ureter; N17.9 Acute kidney failure, unspecified; T83.89XA Other specified complication of genitourinary prosthetic devices, implants and grafts, initial encounter; J44.0 Chronic obstructive pulmonary disease with (acute) lower respiratory infection; Y95 Nosocomial condition; J44.9 Chronic obstructive pulmonary disease, unspecified; F41.1 Generalized anxiety disorder; F03.90 Unspecified dementia, unspecified severity, without behavioral disturbance, psychotic disturbance, mood disturbance, and anxiety; G35 Multiple sclerosis; Z20.822 Contact with and (suspected) exposure to COVID-19; Z99.81 Dependence on supplemental oxygen
CPT/HCPCS: 36415; 36556; 51702; 70450; 71045; 71250; 74176; 74420; 76775; 80048; 80053; 80202; 81001; 82948; 83605; 83690; 83735; 83880; 84484; 85025; 85027; 85610; 85730; 87040; 87077; 87081; 87086; 87088; 87186; 87426; 87636; 92611; 93005; 96361; 96365; 96367; 99285; 99291; A9270; C1751; C1758; C1769; C2617; C9803; J0131; J0692; J0743; J1650; J1720; J2543; J2704; J3010; J3370; J3480; J7120; P9045

== ENCOUNTER 2022-12-16 21:17 | Inpatient (IN) | payer MEDICARE, MEDICAID, SELFPAY ==
[2022-12-16] VITALS (23 sets, daily range): BP systolic 177–198; BP diastolic 122–140; PULSE 98–116; RESP 18–28; TEMP 36.6; O2SAT 91–100
--- NOTE | ~2022-12-16 | CT_ITS ---
EXAMINATION: CT abdomen pelvis wo con DATE: 12/24/2022 10:18 INDICATION: Persistent abdominal pain. TECHNIQUE: Computed tomography (CT) of the abdomen and pelvis was performed without intravenous contr ast. Automated exposure control and iterative reconstruction technique were employed. Exam dose: 114 4.09 mGy-cm total exam DLP. COMPARISON: 12/17/2022 CT chest abdomen pelvis FINDINGS: Bilateral lower lobe and lingular atelectasis. Cardiomegaly. No pericardial or pleural effu mara. No hepatic, splenic, pancreatic or adrenal mass lesion. Status post right nephrectomy. Left internal urinary stent. There are numerous left renal calculi. Normal caliber of the abdominal aorta. No intraperitoneal or retroperitoneal or pelvic mass lesion or adenopathy or ascites. No bowel obstruction. Normal caliber abdominal aorta. Bilateral fallopian tube inserts. The uterus and adnexal areas are otherwise unremarkable. Chronic anterior wedging and loss of height of some vertebrae including T8 and T9 and L3. Chronic severe deformity of both hips. Intramedullary lore of the right femur. IMPRESSION: Severe left nephrolithiasis Left internal urinary stent. Status post right nephrectomy Reviewed, dictated and finalized at [facility] Reviewed, dictated and finalized at [facility].
--- NOTE | ~2022-12-16 | CT_ITS ---
EXAMINATION: CT chest abdomen pelvis w con DATE: 12/17/2022 12:31 CDT INDICATION: Abdominal distention. Nausea and vomiting. TECHNIQUE: Computed tomography (CT) of the chest, abdomen, and pelvis was performed with 100 cc Omnip aque 350 intravenous contrast. The dose-length product was 1148.83 mGy-cm. Automated exposure control and iterative reconstruction technique were employed. COMPARISON: CT dated 12/12/2022 FINDINGS: CHEST CT: Heart size upper normal. No thoracic lymphadenopathy. No soft tissue abnormality. There is dependent atelectasis. No evidence for aortic aneurysm or a dissection. There are patchy areas of subsegmental atelectasis. Cannot exclude superimposed pneumonia. Small right pleural effusion. ABDOMEN/PELVIS CT: The liver, spleen, pancreas, adrenal glands are unremarkable. Status post right nephrectomy. There ar e multiple left renal stones. There is a left internal ureteral stent in expected position. There is a catheter in in the bladder extending into the expected location of the urethra. 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 There is moder ate colonic fecal loading of the rectum and distal sigmoid colon which is mildly thickened. Nonobstru ctive bowel pattern. There is laxity of the anterior abdominal wall musculature. No significant vascu lar abnormality. No lymphadenopathy. IMPRESSION: 1. Patchy bilateral atelectasis. Cannot exclude superimposed pneumonia. 2: Small right pleural effusion. 3: Left nephrolithiasis. Left internal ureteral stent in expected position. 4: Thickening of the distal sigmoid colon and rectum which is distended with fecal material. Cannot e xclude colitis. Reviewed, dictated and finalized at [facility]. IMPRESSION: 1. Patchy bilateral atelectasis. Cannot exclude superimposed pneumonia. 2: Small right pleural effusion. 3: Left nephrolithiasis. Left internal ureteral stent in expected position. 4: Thickening of the distal sigmoid colon and rectum which is distended with fe julianne material. Cannot exclude colitis.
[2022-12-16 21:59] LABS: Basophils Absolute Auto 0.1 K/mm3 (0.0-0.1); Basophils Percent Auto 0.3 % (0.2-1.2); Eosinophils Absolute Auto 0.1 K/mm3 (0-0.3); Eosinophils Percent Auto 0.4 % (0-4.4); Hematocrit 39.8 % (37.0-47.0); Hemoglobin 12.7 g/dL (12.0-15.0); Immature Granulocyte Absolute 0.08 K/mm3 (0.00-0.031); Immature Granulocyte Percent A 0.5 % (0-0.5); Lymphocytes Absolute Auto 1.65 K/mm3 (0.9-3.2); Lymphocytes Percent Auto 10.9 % (18.3-44.2); Mean Corpuscular HGB Conc 31.9 g/dl (32-36); Mean Corpuscular Hemoglobin 25.6 pg (26-34); Mean Corpuscular Volume 80.2 fl (80-100); Mean Platelet Volume 8.7 fl (7.4-10.4); Monocytes Absolute Auto 0.7 K/mm3 (0.1-0.6); Monocytes Percent Auto 4.3 % (2.6-8.5); Neutrophils Absolute Auto 12.6 K/mm3 (1.3-6.7); Neutrophils Percent Auto 83.6 % (45.5-73.1); Platelet Count Result 445 k/mm3 (150-375); Red Blood Count 4.96 M/mm3 (4.2-5.4); White Blood Count 15.1 K/mm3 (4.5-10.0)
--- NOTE | 2022-12-16 22:07 | ED.GENADULT ---
HPI - General Adult General Chief complaint: Nausea/Vomiting/Diarrhea <Corwin Ureña PA-C - Last Filed: 12/17/22 05:18> Stated complaint: nausea/vomiting <Corwin Ureña PA-C - Last Filed: 12/17/22 05:18> Time Seen by Provider: 12/16/22 22:03 <Corwin Ureña PA-C - Last Filed: 12/17/22 05:18> History of Present Illness HPI narrative: This is a 57-year-old female with extensive past medical history including quadriplegic MS, schizophrenia, COPD, HTN, RADHA who presents to the ED with chief complaint of nausea and vomiting beginning today when she arrived home. Patient was discharged from the hospital earlier today. She tried to take her Zofran but has been nauseous to the point where she is unable to take her antibiotics. Reports several episodes of vomiting since she got home in the last 3 to 4 hours. Patient denies any pain in her abdomen at this point. Denies shortness of breath or chest pain. Denies LOC or numbness or weakness. poor historian. Patient was discharged home from hospital. . She was sent home with prescriptions for Flagyl, Levaquin, doxycycline, Zofran. She had diagnosed UTI, pneumonia, septic shock. <Corwin Ureña PA-C - Last Filed: 12/17/22 05:18> Related Data Home medications: Home Medications Medication Instructions Recorded Confirmed Laxative (sennosides) 8.6 mg PO PRN 12/17/22 12/17/22 acetaminophen 650 mg PO Q4-6H PRN Pain (Scale 12/17/22 12/17/22 Score 1-3) amlodipine 2.5 mg tablet 2.5 mg PO DAILY 12/17/22 12/17/22 cholecalciferol (vitamin D3) 1,000 units PO DAILY 12/17/22 12/17/22 citalopram 20 mg tablet 20 mg PO HS 12/17/22 12/17/22 clonidine HCl 0.1 mg tablet 0.1 mg PO DAILY 12/17/22 12/17/22 doxycycline hyclate 100 mg PO DAILY 12/17/22 12/17/22 famotidine 20 mg tablet 20 mg PO BID 12/17/22 12/17/22 hydrocortisone 5 mg tablet 5 mg PO DAILY 12/17/22 12/17/22 ipratropium bromide 0.02 % 1 ml inhalation DAILY 12/17/22 12/17/22 solution for inhalation lactulose 10 gram/15 mL oral 10 g PO BID 12/17/22 12/17/22 solution levofloxacin 750 tablet PO EVERY OTHER DAY 12/17/22 12/17/22 losartan 25 mg tablet 25 mg PO DAILY 12/17/22 12/17/22 metoprolol tartrate 50 mg tablet 50 mg PO BID 12/17/22 12/17/22 metronidazole 500 mg PO TID 12/17/22 12/17/22 ondansetron 4 mg disintegrating 4 mg translingual QID PRN Nausea 12/17/22 12/17/22 tablet And Vomiting polyethylene glycol 3350 17 g PO DAILY PRN Constipation 12/17/22 12/17/22 potassium chloride 20 mEq oral 20 meq PO DAILY 12/17/22 12/17/22 packet pregabalin 75 mg capsule 75 mg PO BID 12/17/22 12/17/22 trazodone 50 mg tablet 50 mg PO HS 12/17/22 12/17/22 <Corwin Ureña PA-C - Last Filed: 12/17/22 05:18> Allergies/adverse reactions: Allergies Allergy/AdvReac Type Severity Reaction Status Date / Time No Known Allergies Allergy Verified 10/20/22 17:29 <LOREE Melendrez Last Filed: 12/17/22 05:18> Review of Systems Review of Systems: CONSTITUTIONAL: Denies fever, chills, or sweats. EYES: Denies visual changes, redness, or discharge. ENT: Denies rhinorrhea, congestion, sore throat, or otalgia. CARDIOVASCULAR: Denies chest pain, palpitations, or edema. RESPIRATORY: Denies cough or dyspnea. GASTROINTESTINAL: Endorses nausea, vomiting. Denies any abdominal pain or diarrhea. GENITOURINARY: Denies dysuria or hematuria. SKIN: Denies rash or itching. MUSCULOSKELETAL: Denies back pain, joint pain, or myalgia. NEUROLOGIC: Denies headache, numbness, dizziness, or weakness. PSYCHIATRIC: Denies anxiety or depression. <Corwin Ureña PA-C - Last Filed: 12/17/22 05:18> [facility] Past Medical History Medical History: Medical History Anemia COPD (chronic obstructive pulmonary disease) Chronically O2 dependent on 4 L. Dementia Depression Essential (primary) hypertension Functional quadriplegia secondary to MS Generalized anxiety disorder History of ESBL E. c
[2022-12-16 22:09] LABS: Alanine Aminotransferase 21 U/L (6-35); Albumin Level 4.7 g/dL (3.5-5.1); Alkaline Phosphatase 209 U/L (38-126); Anion Gap 13 mmol/L (8-16); Aspartate Amino Transferase 28 U/L (14-36); Bilirubin,Total 0.9 mg/dL (0.2-1.3); Blood Urea Nitrogen 16 mg/dL (7-17); Calcium 9.8 mg/dL (8.4-10.2); Carbon Dioxide 21 mmol/L (22-30); Chloride 109 mmol/L (98-107); Estimated Glomerular Filt Rate 51; Glucose 125 mg/dL (65-110); Lipase 77 U/L (23-300); Potassium 3.4 mmol/L (3.4-5.0); Sodium 143 mmol/L (137-145)
[2022-12-16 22:10] LABS: Lactic Acid Reflex 1.1 mmol/L (0.7-2.0)
--- NOTE | 2022-12-16 22:26 | ECG_ITS ---
Measurements Intervals [place] Rate: 111 P: 56 IL: 146 QRS: 1 QRSD: 85 T: 12 QT: 355 QTc: 483 Interpretive Statements SINUS TACHYCARDIA LOW QRS VOLTAGE IN PRECORDIAL LEADS VOLTAGE CRITERIA FOR LVH BORDERLINE T WAVE ABNORMALITY- INFERIOR LEADS BASELINE ARTIFACT- I, II, III, AVR, AVL, AVF, V1-V6 ABNORMAL ECG COMPARED TO ECG 12/12/2022 15:48:24 NO SIGNIFICANT CHANGES Electronically Signed On 12-17-2022 8:08:32 CDT by Murali Osei D.O.
[2022-12-16] MEDS: PROMETHAZINE HCL 25 MG/ML AMPUL 12.5 MG IV PUSH (23:07)
[2022-12-16] MEDS: SODIUM CHLORIDE 0.9% IV 1,000 ML 999 ML IV CONT (23:07)
[2022-12-16] MEDS: metroNIDAZOLE 500 MG/ISO 100ML 500 MG/100 ML BAG 100 MG IVPB (23:32)
[2022-12-16 23:48] LABS: Appearance Urine Cloudy (Clear); Bacteria Urine None Seen /hpf; Bilirubin Urine Negative (Negative); Blood Urine 3+ (Negative); Color Urine Yellow (Yellow); Glucose Urine UA Negative (Negative); Ketones Urine 2+ mg/dL (Negative); Leukocyte Esterase Ur 2+ LEU/UL (Negative); Nitrate Urine Negative (Negative); Protein Urine 4+ mg/dL (Negative); RBC Urine >100 /hpf (0-2); Specific Grav Ur 1.026 (1.001-1.035); Squamous Epithelial Cell Urine Occasional /hpf (Few); WBC Urine 51-100 /hpf
[2022-12-17] VITALS (23 sets, daily range): BP systolic 154–192; BP diastolic 84–129; PULSE 87–142; RESP 16–28; TEMP 35.9–36.5; O2SAT 96–100
[2022-12-17 00:01] LABS: Add Urine Microscopic? YES
[2022-12-17] MEDS: DOXYCYCLINE 100 MG/NS 100 ML 100 MG/100 ML BAG IVPB (00:35)
[2022-12-17] MEDS: cloNIDine HCL 0.1 MG TABLET PO (02:04)
[2022-12-17] MEDS: METOPROLOL TARTRATE INJ 5 MG/5 ML VIAL IV PUSH (02:04)
[2022-12-17] MEDS: SODIUM CHLORIDE 0.9% IV 1,000 ML 100 ML IV CONT (03:59)
[2022-12-17] MEDS: PROMETHAZINE HCL 25 MG/ML AMPUL IM ×2 (04:18→09:49)
[2022-12-17] MEDS: metroNIDAZOLE 500 MG/ISO 100ML 500 MG/100 ML BAG 100 MG IVPB (05:21)
--- NOTE | 2022-12-17 05:35 | PM.IMHP ---
H&P: HPI History of Present Illness Date/Time: 12/17/22 05:35 Chief Complaint: Nausea and vomiting Narrative: 57-year-old female with a past medical history of dementia, schizophrenia, multiple sclerosis, functional quadriplegia, COPD, essential hypertension and left unilateral kidney with ureteral stent present who presented to the ER with nausea vomiting. The patient had just been discharged from the hospital earlier in the day on the . The patient had been hospitalized from the through the due to septic shock. The patient's urine grew out multiple jenny. He also had evidence of possible pneumonia. She was discharged back to intermediate on Levaquin every other day, Flagyl and doxycycline. The patient had evidently vomited multiple times while at the intermediate. She did vomit in the ER as well. When the patient arrived to the medical floor she had evidently reported to nursing staff that she was nauseated but did not have any witnessed vomiting. ER staff had told me that the patient abdominal exam was benign. However at some my evaluation the patient had involuntary guarding of her abdomen. Her abdomen was distended. It she did have normoactive bowel sounds. The patient had denied having nausea or vomiting at the time of my evaluation but had just complains a nursing staff shortly before arrived to the room that she was nauseated and was having abdominal pain. She had actually denied having abdominal pain when I arrived in the room but when I was performing my exam the patient was witnessed to be grimacing multiple times. I am unable to cell in the left patient had her last bowel movement during her last hospitalization. The patient had a Naranjo catheter that was placed in the ER. During her last hospitalization the patient had accidental removal of her Naranjo catheter. Staff was unable to replace the patient's Naranjo catheter in she had been discharged without the Naranjo catheter. The patient's postvoid residuals were negative and Urology was aware and Naranjo catheter was left out. The patient has a known stent present at her left ureter. The stent had to be placed at [facility] back in August as Urology here was unable to place a Naranjo catheter and given the patient's contractures they felt that they would not bili placed stent. It is unclear if the patient's stent has been changed since that time. The patient had a hospitalization in October for polymicrobial UTI. Her other urine cultures since that time have just demonstrated multiple jenny. Patient has been afebrile so far this admission. Source of information is from past medical records and ER records. The patient is only oriented to person in is unable to give significant details. Review of Systems Review of Systems: ROS unobtainable: Yes unobtainable due to mental status PMFSH Past Medical History Medical History Anemia COPD (chronic obstructive pulmonary disease) Chronically O2 dependent on 4 L. Dementia Depression Essential (primary) hypertension Functional quadriplegia secondary to MS Generalized anxiety disorder History of ESBL E. 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 Her guardian is Abe Burnham and can be reached at [phone]. Patient is a full code at this time Smoking
[2022-12-17 06:19] LABS: Basophils Absolute Auto 0.1 K/mm3 (0.0-0.1); Basophils Percent Auto 0.4 % (0.2-1.2); Eosinophils Absolute Auto 0.1 K/mm3 (0-0.3); Eosinophils Percent Auto 0.7 % (0-4.4); Immature Granulocyte Absolute 0.13 K/mm3 (0.00-0.031); Lymphocytes Absolute Auto 1.24 K/mm3 (0.9-3.2); Lymphocytes Percent Auto 9.2 % (18.3-44.2); Mean Corpuscular HGB Conc 31.4 g/dl (32-36); Mean Corpuscular Hemoglobin 25.5 pg (26-34); Mean Corpuscular Volume 81.2 fl (80-100); Mean Platelet Volume 8.8 fl (7.4-10.4); Monocytes Absolute Auto 0.5 K/mm3 (0.1-0.6); Monocytes Percent Auto 3.9 % (2.6-8.5); Neutrophils Absolute Auto 11.4 K/mm3 (1.3-6.7); Neutrophils Percent Auto 84.8 % (45.5-73.1); Platelet Count Result 331 k/mm3 (150-375); Red Blood Count 4.31 M/mm3 (4.2-5.4); Red Cell Distribution Width 14.9 % (11.5-14.5); White Blood Count 13.4 K/mm3 (4.5-10.0)
[2022-12-17 06:32] LABS: Lactic Acid Reflex 0.7 mmol/L (0.7-2.0)
[2022-12-17 06:34] LABS: Alanine Aminotransferase 17 U/L (6-35); Albumin Level 3.8 g/dL (3.5-5.1); Alkaline Phosphatase 163 U/L (38-126); Anion Gap 9 mmol/L (8-16); Aspartate Amino Transferase 20 U/L (14-36); Bilirubin,Total 0.7 mg/dL (0.2-1.3); Blood Urea Nitrogen 15 mg/dL (7-17); Calcium 8.4 mg/dL (8.4-10.2); Carbon Dioxide 19 mmol/L (22-30); Chloride 112 mmol/L (98-107); Estimated Glomerular Filt Rate 57; Glucose 96 mg/dL (65-110); Sodium 140 mmol/L (137-145)
--- NOTE | 2022-12-17 07:43 | PC.NURSE ---
Received from ER to room 329 via cart. moved via air mattress. Pt alert to self. Reorientation given and repeated. Pt with multiple questions. C/o nausea upon admission to room given Phenergan with relief- IM . C/O abd pain. IVF as ordered to 22g wrist that is reddened . IV abx x3 ordered. BP elevated. Called [facility] to get medication info- faxed over and it was entered. Notified Dr. Feng for longer lasting IV site for care of pt ER states had difficulty placing the site . Notified Dr. Feng of elevated BP as well. Midline now ordered. Per Dr. Feng to keep pt NPO for abd CT scan. Naranjo drainaing. Full care for all ADL's. Report given to next shift JAVON Cabello.
[2022-12-17] MEDS: cloNIDine 0.1 MG/24 HR PATCH 1 PATCH TRANSDERM (09:04)
[2022-12-17] MEDS: FAMOTIDINE 20 MG/2 ML VIAL IV PUSH ×2 (09:05→21:17)
[2022-12-17] MEDS: ENOXAPARIN 40 MG/0.4 ML SYRINGE SUB-Q (10:02)
[2022-12-17] MEDS: POTASSIUM CHLORIDE INJ 40 MEQ in SODIUM CHLORIDE 0.9% IV 500 ML 130 MEQ IVPB (13:15)
--- NOTE | 2022-12-17 16:53 | PM.IMPN ---
Progress Note: A&P Assessment and Plan (1) Vomiting: Qualifiers: Nausea presence: with nausea Vomiting type: unspecified Qualified Code(s): R11.2 - Nausea with vomiting, unspecified Code(s): R11.10 - Vomiting, unspecified Status: Acute (2) Sinus tachycardia: Code(s): R00.0 - Tachycardia, unspecified Status: Acute (3) Retained ureteral stent: Code(s): Z96.0 - Presence of urogenital implants Status: Acute (4) HCAP (healthcare-associated pneumonia): Code(s): J18.9 - Pneumonia, unspecified organism Status: Acute (5) Hypokalemia: Code(s): E87.6 - Hypokalemia Status: Acute Plan Vomiting adn constipation CT chest and abdomen showed consitpation r/o Colitis Contineu LEvaquin, doxycline and flagyl x 5 days (per recent discharge) Continue regular diet Miralax and rectal dulcolax monitor prior admission Septic shock s/p Levophed blood 1 bottle growing Staph epidermidis MRSA screen positive Completed 4 days of? Vanc and Cefepime and Flagyl Discharged on 5 days of Doxycline, flagyl and Levaquin. please continue above po Abx for stipulated 5 days total HAP L upper and lower lobes Continue care above and monitor MRSA screen positive CT chest showed resolution contineu above abx UTI with ureteral stone s/p ureteral stent hx of ESBL Continue abx as above f/u with urology on discharge RADHA resolved Cr 1.0 monitor AMS alert and confused but baseline DVT prophylaxis -? Lovenox Nutrition - ? on modified diet after swallow evaluation Code Status - Full Code Subjective Date/time seen: 12/17/22 16:53 patient was managed for HAP uti with stone s/p ureteral stents and discharged yesterday and returned to the hospital due to vomiting. Was discharged on 5 days of Doxycycline, Flagyl and Levaquin. CT in the ER showed constipation r/o Colitis. Review of Systems Review of Systems: ROS unobtainable: Yes unobtainable due to mental status Exam Narrative: Const:?? Other: Chronically debilitated, cont racted, lying in b ed, appears older than stated, no ac ilir distress HENMT:?? Other: Blunted fea tures, no evidence of trauma, mucous membranes are tac ky, multiple francesca ng teeth, multiple dental caries wit h teeth broken off at the gumline Eyes:?? Other: Marked vert ical nystagmus, pu pils are equal and reactive Neck:?? Other: No JVD, no significant lympha denopathy Chest:?? Other: No tenderne ss to palpation, e qual chest expansi on Resp:?? Other: Clear to au scultation bilater ally, no increased work of breathing Cardio:?? Other: Sinus tachy cardia, 2+ bilater al radial pedal pu lses, no JVD GI:?? Other: Distended, involuntary guardi ng, normoactive nawaf wel sounds, no tym pany :?? Other: Naranjo cruz ter in place with small amount of da rk yellow urine Skin:?? Other: Marked pall or, non jaundice, normal temperature to touch the nayely ent has old scar t o her left medial heel from prior pr
[2022-12-17] MEDS: BISACODYL 10 MG SUPPOSITORY RECTAL (17:51)
[2022-12-17] MEDS: amLODIPine BESYLATE 2.5 MG TABLET PO (17:52)
[2022-12-17] MEDS: LACTULOSE 20 GM/30 ML UDC 10 GM PO (17:52)
[2022-12-17] MEDS: LOSARTAN POTASSIUM 25 MG TABLET PO (17:53)
[2022-12-17] MEDS: HYDROCORTISONE 5 MG TABLET PO (17:53)
[2022-12-17] MEDS: PREGABALIN (*CRX) 75 MG CAPSULE PO (17:54)
[2022-12-17] MEDS: DOXYCYCLINE HYCLATE 100 MG TABLET PO (17:55)
[2022-12-17] MEDS: levoFLOXacin 750 MG TABLET PO (19:42)
[2022-12-17] MEDS: METOPROLOL TARTRATE 50 MG TAB PO (21:17)
[2022-12-17] MEDS: metroNIDAZOLE 250 MG TABLET 500 MG PO (21:17)
[2022-12-17] MEDS: traZODone HCL 50 MG TABLET PO (21:18)
[2022-12-17] MEDS: CITALOPRAM HYDROBROMIDE 20 MG TABLET PO (21:20)
[2022-12-17] MEDS: hydrALAZINE HCL 20 MG/ML VIAL 10 MG IV PUSH (22:35)
[2022-12-18] VITALS (13 sets, daily range): BP systolic 124–170; BP diastolic 88–99; PULSE 96–115; RESP 16–20; TEMP 35.7–36.1; O2SAT 99
[2022-12-18] MEDS: METOPROLOL TARTRATE 25 MG TABLET PO (00:41)
[2022-12-18] MEDS: metroNIDAZOLE 250 MG TABLET 500 MG PO ×3 (05:26→22:05)
[2022-12-18] MEDS: DOXYCYCLINE HYCLATE 100 MG TABLET PO ×2 (05:26→17:13)
[2022-12-18 06:35] LABS: Basophils Absolute Auto 0.1 K/mm3 (0.0-0.1); Basophils Percent Auto 0.4 % (0.2-1.2); Eosinophils Absolute Auto 0.4 K/mm3 (0-0.3); Eosinophils Percent Auto 2.2 % (0-4.4); Hematocrit 36.4 % (37.0-47.0); Hemoglobin 11.5 g/dL (12.0-15.0); Immature Granulocyte Absolute 0.22 K/mm3 (0.00-0.031); Immature Granulocyte Percent A 1.3 % (0-0.5); Lymphocytes Absolute Auto 2.68 K/mm3 (0.9-3.2); Lymphocytes Percent Auto 15.7 % (18.3-44.2); Mean Corpuscular HGB Conc 31.6 g/dl (32-36); Mean Corpuscular Hemoglobin 24.9 pg (26-34); Mean Platelet Volume 8.8 fl (7.4-10.4); Monocytes Percent Auto 5.7 % (2.6-8.5); Neutrophils Absolute Auto 12.8 K/mm3 (1.3-6.7); Neutrophils Percent Auto 74.7 % (45.5-73.1); Platelet Count Result 400 k/mm3 (150-375); Red Blood Count 4.61 M/mm3 (4.2-5.4); Red Cell Distribution Width 15.9 % (11.5-14.5); White Blood Count 17.1 K/mm3 (4.5-10.0)
[2022-12-18 06:47] LABS: Lactic Acid Reflex 0.8 mmol/L (0.7-2.0)
[2022-12-18 06:50] LABS: Alanine Aminotransferase 17 U/L (6-35); Albumin Level 4.1 g/dL (3.5-5.1); Alkaline Phosphatase 169 U/L (38-126); Anion Gap 9 mmol/L (8-16); Aspartate Amino Transferase 21 U/L (14-36); Bilirubin,Total 0.7 mg/dL (0.2-1.3); Blood Urea Nitrogen 13 mg/dL (7-17); Calcium 9.3 mg/dL (8.4-10.2); Carbon Dioxide 19 mmol/L (22-30); Chloride 114 mmol/L (98-107); Estimated CRCL calculation 52 ml/min; Estimated Glomerular Filt Rate 57; Glucose 99 mg/dL (65-110); Sodium 142 mmol/L (137-145)
[2022-12-18] MEDS: HYDROCORTISONE 5 MG TABLET PO (08:29)
[2022-12-18] MEDS: CHOLECALCIFEROL 1,000 UNITS TABLET 1000 UNITS PO (08:29)
[2022-12-18] MEDS: amLODIPine BESYLATE 2.5 MG TABLET PO (08:29)
[2022-12-18] MEDS: LOSARTAN POTASSIUM 25 MG TABLET PO (08:29)
[2022-12-18] MEDS: ENOXAPARIN 40 MG/0.4 ML SYRINGE SUB-Q (08:30)
[2022-12-18] MEDS: FAMOTIDINE 20 MG/2 ML VIAL IV PUSH ×2 (08:30→20:14)
[2022-12-18] MEDS: METOPROLOL TARTRATE 50 MG TAB PO ×2 (08:30→20:13)
[2022-12-18] MEDS: LACTULOSE 20 GM/30 ML UDC 10 GM PO ×2 (08:30→17:14)
[2022-12-18] MEDS: POTASSIUM CHLORIDE 20 MEQ PACKET (FOR LIQUID) PO (08:31)
[2022-12-18] MEDS: PREGABALIN (*CRX) 75 MG CAPSULE PO ×2 (08:32→17:14)
--- NOTE | 2022-12-18 13:54 | PM.IMPN ---
Progress Note: A&P Assessment and Plan (1) Vomiting: Qualifiers: Nausea presence: with nausea Vomiting type: unspecified Qualified Code(s): R11.2 - Nausea with vomiting, unspecified Code(s): R11.10 - Vomiting, unspecified Status: Acute (2) Sinus tachycardia: Code(s): R00.0 - Tachycardia, unspecified Status: Acute (3) Retained ureteral stent: Code(s): Z96.0 - Presence of urogenital implants Status: Acute (4) HCAP (healthcare-associated pneumonia): Code(s): J18.9 - Pneumonia, unspecified organism Status: Acute (5) Hypokalemia: Code(s): E87.6 - Hypokalemia Status: Acute Plan Vomiting adn constipation CT chest and abdomen showed consitpation r/o Colitis Contineu LEvaquin, doxycline and flagyl x 5 days (per recent discharge) Continue regular diet Miralax and rectal dulcolax monitor h/o Septic shock s/p Levophed blood 1 bottle growing Staph epidermidis MRSA screen positive Completed 4 days of? Vanc and Cefepime and Flagyl Discharged on 5 days of Doxycline, flagyl and Levaquin. please continue above po Abx for stipulated 5 days total h/o HAP L upper and lower lobes Continue care above and monitor MRSA screen positive CT chest showed resolution contineu above abx h/o UTI with ureteral stone s/p ureteral stent hx of ESBL Continue abx as above f/u with urology on discharge h/o RADHA resolved AMS alert and confused but baseline DVT prophylaxis -? Lovenox Nutrition - ? on modified diet after swallow evaluation Code Status - Full Code Subjective Date/time seen: 12/18/22 13:54 Pt seen and examined by the bedside Pt admitted with vomiting and constipation and colitis, pt had recent admission with septic shock, hap and uti Pt still having loose stools and high wcc Review of Systems Review of Systems: no specific complaints ROS unobtainable: Yes unobtainable due to mental status Exam Narrative: Const:?? Other: Chronically debilitated, cont racted, lying in b ed, appears older than stated, no ac ilir distress HENMT:?? Other: Blunted fea tures, no evidence of trauma, mucous membranes are tac ky, multiple francesca ng teeth, multiple dental caries wit h teeth broken off at the gumline Eyes:?? Other: Marked vert ical nystagmus, pu pils are equal and reactive Neck:?? Other: No JVD, no significant lympha denopathy Chest:?? Other: No tenderne ss to palpation, e qual chest expansi on Resp:?? Other: Clear to au scultation bilater ally, no increased work of breathing Cardio:?? Other: Sinus tachy cardia, 2+ bilater al radial pedal pu lses, no JVD GI:?? Other: Distended, involuntary guardi ng, normoactive nawaf wel sounds, no tym pany :?? Other: Naranjo cruz ter in place with small amount of da rk yellow urine Skin:?? Other: Marked pall or, non jaundice, normal temperature to touch the nayely ent has old scar t o her left medial heel from prior pr essure wound, she has
[2022-12-18] MEDS: levoFLOXacin 750 MG TABLET PO (17:13)
[2022-12-18] MEDS: CITALOPRAM HYDROBROMIDE 20 MG TABLET PO (20:13)
[2022-12-18] MEDS: traZODone HCL 50 MG TABLET PO (20:13)
[2022-12-19] VITALS (13 sets, daily range): BP systolic 88–156; BP diastolic 53–98; PULSE 87–109; RESP 14–18; TEMP 35.7–36.2; O2SAT 96–100
[2022-12-19 06:40] LABS: Hematocrit 38.5 % (37.0-47.0); Hemoglobin 12.3 g/dL (12.0-15.0); Mean Corpuscular HGB Conc 31.9 g/dl (32-36); Mean Corpuscular Hemoglobin 25.6 pg (26-34); Mean Platelet Volume 9.4 fl (7.4-10.4); Platelet Count Result 361 k/mm3 (150-375); Red Blood Count 4.81 M/mm3 (4.2-5.4); White Blood Count 19.1 K/mm3 (4.5-10.0)
[2022-12-19] MEDS: DOXYCYCLINE HYCLATE 100 MG TABLET PO ×2 (06:43→16:55)
[2022-12-19] MEDS: metroNIDAZOLE 250 MG TABLET 500 MG PO ×3 (06:44→21:05)
[2022-12-19 06:55] LABS: Anion Gap 9 mmol/L (8-16); Blood Urea Nitrogen 15 mg/dL (7-17); Calcium 9.3 mg/dL (8.4-10.2); Carbon Dioxide 21 mmol/L (22-30); Chloride 116 mmol/L (98-107); Estimated CRCL calculation 40 ml/min; Estimated Glomerular Filt Rate 42; Glucose 105 mg/dL (65-110); Sodium 146 mmol/L (137-145)
[2022-12-19] MEDS: PROMETHAZINE HCL 25 MG/ML AMPUL IM (07:01)
[2022-12-19] MEDS: amLODIPine BESYLATE 2.5 MG TABLET PO (08:20)
[2022-12-19] MEDS: POTASSIUM CHLORIDE 20 MEQ PACKET (FOR LIQUID) PO (08:20)
[2022-12-19] MEDS: METOPROLOL TARTRATE 50 MG TAB PO ×2 (08:20→20:17)
[2022-12-19] MEDS: HYDROCORTISONE 5 MG TABLET PO (08:20)
[2022-12-19] MEDS: PREGABALIN (*CRX) 75 MG CAPSULE PO ×2 (08:20→16:54)
[2022-12-19] MEDS: LACTULOSE 20 GM/30 ML UDC 10 GM PO ×2 (08:20→16:54)
[2022-12-19] MEDS: LOSARTAN POTASSIUM 25 MG TABLET PO (08:20)
[2022-12-19] MEDS: ENOXAPARIN 40 MG/0.4 ML SYRINGE SUB-Q (08:20)
[2022-12-19] MEDS: CHOLECALCIFEROL 1,000 UNITS TABLET 1000 UNITS PO (08:20)
[2022-12-19] MEDS: FAMOTIDINE 20 MG/2 ML VIAL IV PUSH (08:21)
--- NOTE | 2022-12-19 12:15 | PM.IMPN ---
Progress Note: A&P Assessment and Plan (1) Vomiting: Qualifiers: Nausea presence: with nausea Vomiting type: unspecified Qualified Code(s): R11.2 - Nausea with vomiting, unspecified Code(s): R11.10 - Vomiting, unspecified Status: Acute (2) Sinus tachycardia: Code(s): R00.0 - Tachycardia, unspecified Status: Acute (3) Retained ureteral stent: Code(s): Z96.0 - Presence of urogenital implants Status: Acute (4) HCAP (healthcare-associated pneumonia): Code(s): J18.9 - Pneumonia, unspecified organism Status: Acute (5) Hypokalemia: Code(s): E87.6 - Hypokalemia Status: Acute Plan Vomiting and constipation CT chest and abdomen showed constipation r/o Colitis Continue oral doxycline and flagyl x 5 days (per recent discharge) oral levaquin changed to iv levaquin as wcc continues to raise Ns bolus x1 for low BP Recent history of Septic shock s/p Levophed blood 1 bottle growing Staph epidermidis MRSA screen positive Completed 4 days of? Vanc and Cefepime and Flagyl Discharged on 5 days of Doxycline, flagyl and Levaquin. Please continue above po Abx for few more days, 5 days in total h/o HAP L upper and lower lobes Continue care above and monitor MRSA screen positive CT chest showed resolution continue above abx h/o UTI with ureteral stone s/p ureteral stent hx of ESBL Continue abx as above f/u with urology on discharge h/o RADHA resolved AMS pt is more alert today DVT prophylaxis -? Lovenox Nutrition - ? on modified diet after swallow evaluation Code Status - Full Code Subjective Date/time seen: 12/19/22 12:15 Pt seen and examined by the bedside Pt admitted with vomiting and constipation and colitis, Pt had recent admission with septic shock, hap and uti Pt has a past medical history of dementia, schizophrenia, multiple sclerosis, functional quadriplegia, COPD, essential hypertension and left unilateral kidney with ureteral stent present who presented to the ER with nausea vomiting Pt having low blood pressures today Pt still having loose stools and high wcc Review of Systems Review of Systems: Loose stools, hypotensive ROS unobtainable: Yes unobtainable due to mental status Exam Narrative: Const:?? Other: Chronically debilitated, cont racted, lying in b ed, appears older than stated, no ac hoopa distress HENMT:?? Other: Blunted fea tures, no evidence of trauma, mucous membranes are tac ky, multiple francesca ng teeth, multiple dental caries wit h teeth broken off at the gumline Eyes:?? Other: Marked vert ical nystagmus, pu pils are equal and reactive Neck:?? Other: No JVD, no significant lympha denopathy Chest:?? Other: No tenderne ss to palpation, e qual chest expansi on Resp:?? Other: Clear to au scultation bilater ally, no increased work of breathing Cardio:?? Other: Sinus tachy cardia, 2+ bilater al radial pedal pu lses, no JVD GI:?? Other: Distended, involuntary guardi ng, normoactive nawaf wel sounds, no tym pany :?? Other: Naranjo cruz ter in place with small amount of da rk yellow urine Skin:?? Other: Marked pall
[2022-12-19] MEDS: levoFLOXacin 500 MG/D5W 100 ML 500 MG/100 ML BAG 100 MG IVPB (13:51)
[2022-12-19] MEDS: SODIUM CHLORIDE 0.9% IV 500 ML IV CONT (14:39)
[2022-12-19] MEDS: traZODone HCL 50 MG TABLET PO (20:17)
[2022-12-19] MEDS: CITALOPRAM HYDROBROMIDE 20 MG TABLET PO (20:17)
[2022-12-20] VITALS (10 sets, daily range): BP systolic 107–127; BP diastolic 66–93; PULSE 56–103; RESP 16–20; TEMP 35.8–36.6; O2SAT 95–100
[2022-12-20] MEDS: DOXYCYCLINE HYCLATE 100 MG TABLET PO ×2 (05:10→17:11)
[2022-12-20] MEDS: metroNIDAZOLE 250 MG TABLET 500 MG PO ×3 (05:10→20:36)
--- NOTE | 2022-12-20 06:33 | PC.NURSE ---
midline no blood return unable to draw labs this am, pt refused lab asistance at this time. Morning labs still pending collection
[2022-12-20 07:02] LABS: Hematocrit 33.2 % (37.0-47.0); Hemoglobin 10.7 g/dL (12.0-15.0); Mean Corpuscular HGB Conc 32.2 g/dl (32-36); Mean Corpuscular Hemoglobin 26.3 pg (26-34); Mean Corpuscular Volume 81.6 fl (80-100); Mean Platelet Volume 9.8 fl (7.4-10.4); Platelet Count Result 311 k/mm3 (150-375); Red Blood Count 4.07 M/mm3 (4.2-5.4); Red Cell Distribution Width 17.6 % (11.5-14.5); White Blood Count 15.2 K/mm3 (4.5-10.0)
[2022-12-20 07:38] LABS: Chloride 118 mmol/L (98-107)
[2022-12-20 07:43] LABS: Anion Gap 8 mmol/L (8-16); Blood Urea Nitrogen 20 mg/dL (7-17); Calcium 8.2 mg/dL (8.4-10.2); Carbon Dioxide 20 mmol/L (22-30); Estimated CRCL calculation 33 ml/min; Estimated Glomerular Filt Rate 33; Glucose 94 mg/dL (65-110); Potassium 2.6 mmol/L (3.4-5.0); Sodium 146 mmol/L (137-145)
[2022-12-20] MEDS: POTASSIUM CHLORIDE INJ 40 MEQ in SODIUM CHLORIDE 0.9% IV 500 ML 130 MEQ IVPB (09:34)
[2022-12-20] MEDS: PREGABALIN (*CRX) 75 MG CAPSULE PO (09:35)
[2022-12-20] MEDS: CHOLECALCIFEROL 1,000 UNITS TABLET 1000 UNITS PO (09:35)
[2022-12-20] MEDS: amLODIPine BESYLATE 2.5 MG TABLET PO (09:35)
[2022-12-20] MEDS: ENOXAPARIN 40 MG/0.4 ML SYRINGE SUB-Q (09:36)
[2022-12-20] MEDS: PANTOPRAZOLE SOD SESQUIHYDRATE 20 MG TAB PO (09:36)
[2022-12-20] MEDS: METOPROLOL TARTRATE 50 MG TAB PO ×2 (09:36→20:37)
[2022-12-20] MEDS: HYDROCORTISONE 5 MG TABLET PO (09:36)
[2022-12-20] MEDS: SALINE LOCK FLUSH 10 ML IV PUSH ×2 (15:56→20:37)
--- NOTE | 2022-12-20 16:35 | PM.IMPN ---
Progress Note: A&P Assessment and Plan (1) Vomiting: Qualifiers: Nausea presence: with nausea Vomiting type: unspecified Qualified Code(s): R11.2 - Nausea with vomiting, unspecified Code(s): R11.10 - Vomiting, unspecified Status: Acute (2) Sinus tachycardia: Code(s): R00.0 - Tachycardia, unspecified Status: Acute (3) Retained ureteral stent: Code(s): Z96.0 - Presence of urogenital implants Status: Acute (4) HCAP (healthcare-associated pneumonia): Code(s): J18.9 - Pneumonia, unspecified organism Status: Acute (5) Hypokalemia: Code(s): E87.6 - Hypokalemia Status: Acute Plan # Vomiting and constipation CT chest and abdomen showed constipation r/o Colitis Continue oral doxycline and flagyl x 5 days (per recent discharge) oral levaquin changed to iv levaquin as wcc continues to raise # recent history of Septic shock s/p Levophed blood 1 bottle growing Staph epidermidis MRSA screen positive Completed 4 days of? Vanc and Cefepime and Flagyl Discharged on 5 days of Doxycline, flagyl and Levaquin. Please continue above po Abx for few more days, 5 days in total # h/o HAP L upper and lower lobes Continue care above and monitor MRSA screen positive CT chest showed resolution continue above abx # h/o UTI with ureteral stone s/p ureteral stent hx of ESBL Continue abx as above f/u with urology on discharge # hypokalemia severe replaced today Recheck and monitor # hypernatremia mild will continue to monitor # h/o RADHA resolved but slowly worsening will hold losartan # altered mental status pt is more alert today # dVT prophylaxis -? Lovenox # nutrition - ? on modified diet after swallow evaluation # code Status - Full Code Subjective Date/time seen: 12/20/22 16:35 Interval history: Patient reports her legs are hurting. She has a bit confused. Discussed with the nursing staff. Presented with nausea vomiting a day after discharge from the hospital. Presented prior to that was septic shock was treated in the ICU related to possible pneumonia. She has not been nauseated or throwing up since admission. She reports she does not have any abdominal pain. Review of Systems Review of Systems: All systems reviewed & are unremarkable except as noted in HPI and below Exam Narrative: GENERAL: Well-appearing, well-nourished, and in no acute distress. HEAD: Normocephalic, atraumatic. EYES: PERRLA and EOMI. ENT: Nares clear, no rhinorrhea or epistaxis.? Mucous membranes moist. NECK: Supple.? No adenopathy or masses.? CHEST: No respiratory distress. Clear to auscultation. No wheezes rales or rhonchi HEART: Regular rate and rhythm.? No murmur heard.? Normal peripheral pulses. ABDOMEN: Soft, nontender, distended, normal active bowel sounds. EXTREMITIES: Normal range of motion.? No edema. Contractures in lower extremities due to functional paraplegia SKIN: Warm, dry, no rash. NEURO: Alert and conversant PSYCH: Normal mood and affect.? Objective Data Vital Signs Vital Signs: Vital Signs - 24 hr 12/19/22 20:17 12/19/22 20:24 12/19/22 20:00 Temperature 97.1 F L Pulse Rate 109 H 109 H 109 H Respiratory Rate 18 18 Blood Pressure 125/75 Pulse Oximetry 96 Oxygen Delivery Room Air 12/20/22 04:00 12/20/22 00:00 12/19/22 20:00 Temperature Pulse Rate 91 88 102 H Respiratory Rate Blood Pressure Pulse Oximetry Oxygen Delivery 12/20/22 06:00 12/20/22 09:36 12/20/22 09:40 Temperature 96.5 F L Pulse Rate 99 100 Respiratory Rate 16 Blood Pressure 127/93 H Pulse Oximetry 95 Oxygen Delivery Room Air 12/20/22 08:00 12/20/22 12:00 12/20/22 14:00 Temperature 97.7 F Pulse Rate 88 81 56 L Respiratory Rate 20 Blood Pressure 112/75 Pulse Oximetry 100 Oxygen Delivery Intake/Output Intake/Output: Intake & Output 12/17/22 12/18/22 12/19/22 12/20/22 23:59 23:59 23
[2022-12-20] MEDS: POTASSIUM CHLORIDE 20 MEQ TABLET.ER 40 MEQ PO (17:10)
[2022-12-20] MEDS: traZODone HCL 50 MG TABLET PO (20:37)
[2022-12-20] MEDS: CITALOPRAM HYDROBROMIDE 20 MG TABLET PO (20:37)
[2022-12-20 21:30] LABS: Anion Gap 9 mmol/L (8-16); Blood Urea Nitrogen 19 mg/dL (7-17); Calcium 8.2 mg/dL (8.4-10.2); Carbon Dioxide 19 mmol/L (22-30); Chloride 120 mmol/L (98-107); Estimated CRCL calculation 37 ml/min; Estimated Glomerular Filt Rate 39; Glucose 112 mg/dL (65-110); Potassium 3.8 mmol/L (3.4-5.0); Sodium 148 mmol/L (137-145)
[2022-12-21] VITALS (9 sets, daily range): BP systolic 107–151; BP diastolic 69–93; PULSE 82–90; RESP 16–20; TEMP 35.6–36.5; O2SAT 95–99
[2022-12-21] MEDS: DOXYCYCLINE HYCLATE 100 MG TABLET PO ×2 (05:10→17:47)
[2022-12-21] MEDS: ACETAMINOPHEN 325 MG TABLET 650 MG PO (05:11)
[2022-12-21] MEDS: metroNIDAZOLE 250 MG TABLET 500 MG PO ×3 (05:11→22:05)
[2022-12-21] MEDS: SALINE LOCK FLUSH 10 ML IV PUSH ×2 (05:11→22:06)
[2022-12-21 08:17] LABS: Alanine Aminotransferase 12 U/L (6-35); Albumin Level 3.2 g/dL (3.5-5.1); Alkaline Phosphatase 116 U/L (38-126); Anion Gap 6 mmol/L (8-16); Aspartate Amino Transferase 18 U/L (14-36); Bilirubin,Total 0.4 mg/dL (0.2-1.3); Blood Urea Nitrogen 17 mg/dL (7-17); Calcium 8.3 mg/dL (8.4-10.2); Carbon Dioxide 20 mmol/L (22-30); Chloride 120 mmol/L (98-107); Estimated CRCL calculation 37 ml/min; Estimated Glomerular Filt Rate 39; Glucose 96 mg/dL (65-110); Magnesium 1.5 mg/dL (1.6-2.3); Potassium 3.6 mmol/L (3.4-5.0); Sodium 146 mmol/L (137-145)
[2022-12-21 08:28] LABS: Basophils Absolute Auto 0.1 K/mm3 (0.0-0.1); Basophils Percent Auto 0.7 % (0.2-1.2); Eosinophils Absolute Auto 0.5 K/mm3 (0-0.3); Hematocrit 29.7 % (37.0-47.0); Hemoglobin 9.2 g/dL (12.0-15.0); Immature Granulocyte Absolute 0.14 K/mm3 (0.00-0.031); Immature Granulocyte Percent A 1.1 % (0-0.5); Lymphocytes Absolute Auto 3.71 K/mm3 (0.9-3.2); Lymphocytes Percent Auto 28.4 % (18.3-44.2); Mean Corpuscular Hemoglobin 25.6 pg (26-34); Mean Corpuscular Volume 82.7 fl (80-100); Mean Platelet Volume 10.1 fl (7.4-10.4); Monocytes Absolute Auto 0.8 K/mm3 (0.1-0.6); Monocytes Percent Auto 6.2 % (2.6-8.5); Neutrophils Absolute Auto 7.8 K/mm3 (1.3-6.7); Neutrophils Percent Auto 59.6 % (45.5-73.1); Platelet Count Result 319 k/mm3 (150-375); Red Blood Count 3.59 M/mm3 (4.2-5.4); White Blood Count 13.1 K/mm3 (4.5-10.0)
[2022-12-21] MEDS: LACTULOSE 20 GM/30 ML UDC 10 GM PO ×2 (09:03→17:46)
[2022-12-21] MEDS: ENOXAPARIN 40 MG/0.4 ML SYRINGE SUB-Q (09:03)
[2022-12-21] MEDS: HYDROCORTISONE 5 MG TABLET PO (09:04)
[2022-12-21] MEDS: METOPROLOL TARTRATE 50 MG TAB PO ×2 (09:04→22:05)
[2022-12-21] MEDS: CHOLECALCIFEROL 1,000 UNITS TABLET 1000 UNITS PO (09:04)
[2022-12-21] MEDS: amLODIPine BESYLATE 2.5 MG TABLET PO (09:04)
[2022-12-21] MEDS: POTASSIUM CHLORIDE 20 MEQ TABLET.ER 40 MEQ PO ×2 (09:04→17:46)
[2022-12-21] MEDS: PANTOPRAZOLE SOD SESQUIHYDRATE 20 MG TAB PO (09:05)
[2022-12-21] MEDS: PREGABALIN (*CRX) 75 MG CAPSULE PO ×2 (09:08→17:46)
[2022-12-21] MEDS: MAGNESIUM SULF 2 GM/WATER 50ML 2 GM/50 ML BAG IVPB (11:37)
[2022-12-21] MEDS: polyethylene glycoL 3350 17 GM POWD.PACK PO (12:06)
--- NOTE | 2022-12-21 16:29 | PM.IMPN ---
Progress Note: A&P Assessment and Plan (1) Vomiting: Qualifiers: Nausea presence: with nausea Vomiting type: unspecified Qualified Code(s): R11.2 - Nausea with vomiting, unspecified Code(s): R11.10 - Vomiting, unspecified Status: Acute (2) Sinus tachycardia: Code(s): R00.0 - Tachycardia, unspecified Status: Acute (3) Retained ureteral stent: Code(s): Z96.0 - Presence of urogenital implants Status: Acute (4) HCAP (healthcare-associated pneumonia): Code(s): J18.9 - Pneumonia, unspecified organism Status: Acute (5) Hypokalemia: Code(s): E87.6 - Hypokalemia Status: Acute Plan # Vomiting and constipation CT chest and abdomen showed constipation r/o Colitis Continue oral doxycline and flagyl x 5 days (per recent discharge) # recent history of Septic shock s/p Levophed blood 1 bottle growing Staph epidermidis MRSA screen positive Completed 4 days of? Vanc and Cefepime and Flagyl Currently on doxycycline 100 mg p.o. b.i.d. # h/o HAP L upper and lower lobes Continue care above and monitor MRSA screen positive CT chest showed resolution continue above abx # h/o UTI with ureteral stone s/p ureteral stent hx of ESBL Continue abx as above f/u with urology on discharge # hypokalemia severe replaced. Recheck and monitor # hypernatremia mild will continue to monitor improved # h/o RADHA resolved but slowly worsening will hold losartan # altered mental status pt is more alert today # dVT prophylaxis -? Lovenox # nutrition - ? on modified diet after swallow evaluation # code Status - Full Code Subjective Date/time seen: 12/21/22 16:29 Interval history: Patient reports her legs are hurting. She has a bit confused. Discussed with the nursing staff. Presented with nausea vomiting a day after discharge from the hospital. Presented prior to that was septic shock was treated in the ICU related to possible pneumonia. She has not been nauseated or throwing up since admission. She reports she does not have any abdominal pain. 12/21/2022: Patient complains of some cramping in her umbilical area today. No nausea vomiting. She also reports leg pains. Labs are reviewed. Discussed with the nursing staff. Review of Systems Review of Systems: All systems reviewed & are unremarkable except as noted in HPI and below Exam Narrative: GENERAL: Well-appearing, well-nourished, and in no acute distress. HEAD: Normocephalic, atraumatic. EYES: PERRLA and EOMI. ENT: Nares clear, no rhinorrhea or epistaxis.? Mucous membranes moist. NECK: Supple.? No adenopathy or masses.? CHEST: No respiratory distress. Clear to auscultation. No wheezes rales or rhonchi HEART: Regular rate and rhythm.? No murmur heard.? Normal peripheral pulses. ABDOMEN: Soft, nontender, distended, normal active bowel sounds. EXTREMITIES: Normal range of motion.? No edema. Contractures in lower extremities due to functional paraplegia SKIN: Warm, dry, no rash. NEURO: Alert and conversant PSYCH: Normal mood and affect.? Objective Data Vital Signs Vital Signs: Vital Signs - 24 hr 12/20/22 20:33 12/20/22 20:00 12/21/22 04:44 Temperature 97.9 F 97.7 F Pulse Rate 103 H 103 H 90 Respiratory Rate 18 18 18 Blood Pressure 107/66 109/69 Pulse Oximetry 98 98 96 Oxygen Delivery Room Air 12/20/22 20:00 12/21/22 00:00 12/21/22 04:00 Temperature Pulse Rate 101 H 83 88 Respiratory Rate Blood Pressure Pulse Oximetry Oxygen Delivery 12/21/22 08:00 12/21/22 08:00 12/21/22 14:00 Temperature 96.0 F L Pulse Rate 90 83 Respiratory Rate 20 Blood Pressure 107/72 Pulse Oximetry 95 Oxygen Delivery Room Air Intake/Output Intake/Output: Intake & Output 12/18/22 12/19/22 12/20/22 12/21/22 23:59 23:59 23:59 23:59 Intake Total 910 220 200 150 Output Total 300 Balance 610 220 200 150 Meds/Results Medications: Active Medica
[2022-12-21] MEDS: traZODone HCL 50 MG TABLET PO (22:05)
[2022-12-21] MEDS: CITALOPRAM HYDROBROMIDE 20 MG TABLET PO (22:06)
[2022-12-22] VITALS (8 sets, daily range): BP systolic 119–166; BP diastolic 82–97; PULSE 72–84; RESP 16–22; TEMP 35.9–36.2; O2SAT 98–100
[2022-12-22] MEDS: metroNIDAZOLE 250 MG TABLET 500 MG PO ×3 (05:30→21:21)
[2022-12-22] MEDS: DOXYCYCLINE HYCLATE 100 MG TABLET PO ×2 (05:30→16:59)
[2022-12-22] MEDS: SALINE LOCK FLUSH 10 ML IV PUSH ×4 (05:30→21:22)
[2022-12-22] MEDS: amLODIPine BESYLATE 2.5 MG TABLET PO (09:04)
[2022-12-22] MEDS: HYDROCORTISONE 5 MG TABLET PO (09:04)
[2022-12-22] MEDS: POTASSIUM CHLORIDE 20 MEQ TABLET.ER 40 MEQ PO ×2 (09:04→16:59)
[2022-12-22] MEDS: METOPROLOL TARTRATE 50 MG TAB PO ×2 (09:04→21:21)
[2022-12-22] MEDS: PREGABALIN (*CRX) 75 MG CAPSULE PO ×2 (09:04→16:59)
[2022-12-22] MEDS: ENOXAPARIN 40 MG/0.4 ML SYRINGE SUB-Q (09:04)
[2022-12-22] MEDS: LACTULOSE 20 GM/30 ML UDC 10 GM PO ×2 (09:04→16:59)
[2022-12-22] MEDS: CHOLECALCIFEROL 1,000 UNITS TABLET 1000 UNITS PO (09:04)
[2022-12-22] MEDS: PANTOPRAZOLE SOD SESQUIHYDRATE 20 MG TAB PO (09:04)
[2022-12-22 12:57] LABS: Basophils Absolute Auto 0.1 K/mm3 (0.0-0.1); Basophils Percent Auto 0.7 % (0.2-1.2); Eosinophils Absolute Auto 0.5 K/mm3 (0-0.3); Hematocrit 32.7 % (37.0-47.0); Immature Granulocyte Absolute 0.09 K/mm3 (0.00-0.031); Immature Granulocyte Percent A 0.7 % (0-0.5); Lymphocytes Absolute Auto 3.26 K/mm3 (0.9-3.2); Lymphocytes Percent Auto 26.1 % (18.3-44.2); Mean Corpuscular HGB Conc 30.6 g/dl (32-36); Mean Corpuscular Volume 84.9 fl (80-100); Mean Platelet Volume 9.6 fl (7.4-10.4); Monocytes Absolute Auto 0.8 K/mm3 (0.1-0.6); Monocytes Percent Auto 6.4 % (2.6-8.5); Neutrophils Absolute Auto 7.8 K/mm3 (1.3-6.7); Neutrophils Percent Auto 62.1 % (45.5-73.1); Platelet Count Result 367 k/mm3 (150-375); Red Blood Count 3.85 M/mm3 (4.2-5.4); Red Cell Distribution Width 18.7 % (11.5-14.5); White Blood Count 12.5 K/mm3 (4.5-10.0)
[2022-12-22 13:12] LABS: Alanine Aminotransferase 13 U/L (6-35); Albumin Level 3.5 g/dL (3.5-5.1); Alkaline Phosphatase 129 U/L (38-126); Anion Gap 5 mmol/L (8-16); Aspartate Amino Transferase 22 U/L (14-36); Bilirubin,Total 0.4 mg/dL (0.2-1.3); Blood Urea Nitrogen 14 mg/dL (7-17); Calcium 8.6 mg/dL (8.4-10.2); Carbon Dioxide 21 mmol/L (22-30); Chloride 117 mmol/L (98-107); Estimated CRCL calculation 43 ml/min; Estimated Glomerular Filt Rate 46; Glucose 98 mg/dL (65-110); Magnesium 2.1 mg/dL (1.6-2.3); Potassium 4.8 mmol/L (3.4-5.0); Sodium 143 mmol/L (137-145)
--- NOTE | 2022-12-22 16:20 | PM.IMPN ---
Progress Note: A&P Assessment and Plan (1) Vomiting: Qualifiers: Nausea presence: with nausea Vomiting type: unspecified Qualified Code(s): R11.2 - Nausea with vomiting, unspecified Code(s): R11.10 - Vomiting, unspecified Status: Acute (2) Sinus tachycardia: Code(s): R00.0 - Tachycardia, unspecified Status: Acute (3) Retained ureteral stent: Code(s): Z96.0 - Presence of urogenital implants Status: Acute (4) HCAP (healthcare-associated pneumonia): Code(s): J18.9 - Pneumonia, unspecified organism Status: Acute (5) Hypokalemia: Code(s): E87.6 - Hypokalemia Status: Acute Plan # Vomiting and constipation CT chest and abdomen showed constipation r/o Colitis Continue oral doxycline and flagyl x 5 days (per recent discharge) Lipase was normal # recent history of Septic shock s/p Levophed blood 1 bottle growing Staph epidermidis MRSA screen positive Completed 4 days of? Vanc and Cefepime and Flagyl Currently on doxycycline 100 mg p.o. b.i.d. # h/o HAP L upper and lower lobes Continue care above and monitor MRSA screen positive CT chest showed resolution continue above abx # h/o UTI with ureteral stone s/p ureteral stent hx of ESBL Continue abx as above f/u with urology on discharge # hypokalemia severe replaced. Recheck and monitor # hypernatremia mild will continue to monitor improved # h/o RADHA resolved but slowly worsening will hold losartan # altered mental status pt is more alert today # dVT prophylaxis -? Lovenox # nutrition - ? on modified diet after swallow evaluation # code Status - Full Code Subjective Date/time seen: 12/22/22 16:20 Interval history: Patient reports her legs are hurting. She has a bit confused. Discussed with the nursing staff. Presented with nausea vomiting a day after discharge from the hospital. Presented prior to that was septic shock was treated in the ICU related to possible pneumonia. She has not been nauseated or throwing up since admission. She reports she does not have any abdominal pain. 12/21/2022: Patient complains of some cramping in her umbilical area today. No nausea vomiting. She also reports leg pains. Labs are reviewed. Discussed with the nursing staff. 12/22/2022: No overnight events. Feels okay this morning. Eating okay. States her abdomen is sore at times. Not currently. No nausea vomiting. Discussed with nursing staff. Review of Systems Review of Systems: All systems reviewed & are unremarkable except as noted in HPI and below Exam Narrative: GENERAL: Well-appearing, well-nourished, and in no acute distress. HEAD: Normocephalic, atraumatic. EYES: PERRLA and EOMI. ENT: Nares clear, no rhinorrhea or epistaxis.? Mucous membranes moist. NECK: Supple.? No adenopathy or masses.? CHEST: No respiratory distress. Clear to auscultation. No wheezes rales or rhonchi HEART: Regular rate and rhythm.? No murmur heard.? Normal peripheral pulses. ABDOMEN: Soft, nontender, distended, normal active bowel sounds. EXTREMITIES: Normal range of motion.? No edema. Contractures in lower extremities due to functional paraplegia SKIN: Warm, dry, no rash. NEURO: Alert and conversant PSYCH: Normal mood and affect.? Objective Data Vital Signs Vital Signs: Vital Signs - 24 hr 12/21/22 21:03 12/21/22 20:00 12/21/22 20:00 Temperature 96.2 F L Pulse Rate 82 82 82 Respiratory Rate 16 16 Blood Pressure 151/93 H Pulse Oximetry 99 99 Oxygen Delivery Room Air 12/22/22 00:00 12/22/22 04:00 12/22/22 06:00 Temperature 96.7 F L Pulse Rate 72 72 80 Respiratory Rate 16 Blood Pressure 119/82 Pulse Oximetry 98 Oxygen Delivery 12/22/22 09:04 12/22/22 08:00 12/22/22 14:00 Temperature 97.0 F L Pulse Rate 78 79 Respiratory Rate 22 H Blood Pressure 137/95 H Pulse Oximetry 100 Oxygen Delivery Room Air Intake/Output Intake/Output:
[2022-12-22] MEDS: CITALOPRAM HYDROBROMIDE 20 MG TABLET PO (21:21)
[2022-12-22] MEDS: traZODone HCL 50 MG TABLET PO (21:21)
[2022-12-23 06:00] VITALS: BP 160/103; PULSE 75; RESP 20; TEMP 36.2; O2SAT 100
[2022-12-23 06:22] LABS: Basophils Absolute Auto 0.1 K/mm3 (0.0-0.1); Basophils Percent Auto 0.5 % (0.2-1.2); Eosinophils Absolute Auto 0.5 K/mm3 (0-0.3); Eosinophils Percent Auto 4.3 % (0-4.4); Hematocrit 33.8 % (37.0-47.0); Hemoglobin 10.4 g/dL (12.0-15.0); Immature Granulocyte Absolute 0.06 K/mm3 (0.00-0.031); Immature Granulocyte Percent A 0.5 % (0-0.5); Lymphocytes Absolute Auto 3.25 K/mm3 (0.9-3.2); Lymphocytes Percent Auto 29.5 % (18.3-44.2); Mean Corpuscular HGB Conc 30.8 g/dl (32-36); Mean Corpuscular Hemoglobin 26.1 pg (26-34); Mean Corpuscular Volume 84.9 fl (80-100); Mean Platelet Volume 9.7 fl (7.4-10.4); Monocytes Absolute Auto 0.7 K/mm3 (0.1-0.6); Monocytes Percent Auto 6.5 % (2.6-8.5); Neutrophils Absolute Auto 6.4 K/mm3 (1.3-6.7); Neutrophils Percent Auto 58.7 % (45.5-73.1); Platelet Count Result 365 k/mm3 (150-375); Red Blood Count 3.98 M/mm3 (4.2-5.4); Red Cell Distribution Width 18.7 % (11.5-14.5)
[2022-12-23 06:31] LABS: Alanine Aminotransferase 14 U/L (6-35); Albumin Level 3.5 g/dL (3.5-5.1); Alkaline Phosphatase 127 U/L (38-126); Anion Gap 3 mmol/L (8-16); Aspartate Amino Transferase 22 U/L (14-36); Bilirubin,Total 0.4 mg/dL (0.2-1.3); Blood Urea Nitrogen 14 mg/dL (7-17); Calcium 8.8 mg/dL (8.4-10.2); Carbon Dioxide 23 mmol/L (22-30); Chloride 115 mmol/L (98-107); Estimated CRCL calculation 40 ml/min; Estimated Glomerular Filt Rate 42; Glucose 98 mg/dL (65-110); Potassium 5.2 mmol/L (3.4-5.0); Sodium 141 mmol/L (137-145)
[2022-12-23] MEDS: DOXYCYCLINE HYCLATE 100 MG TABLET PO (06:48)
[2022-12-23] MEDS: metroNIDAZOLE 250 MG TABLET 500 MG PO (06:48)
[2022-12-23] MEDS: SALINE LOCK FLUSH 10 ML IV PUSH ×3 (06:49→20:42)
[2022-12-23 08:52] VITALS: PULSE 76
[2022-12-23] MEDS: METOPROLOL TARTRATE 50 MG TAB PO ×2 (08:52→20:23)
[2022-12-23] MEDS: CHOLECALCIFEROL 1,000 UNITS TABLET 1000 UNITS PO (08:52)
[2022-12-23] MEDS: PREGABALIN (*CRX) 75 MG CAPSULE PO ×2 (08:52→16:35)
[2022-12-23] MEDS: HYDROCORTISONE 5 MG TABLET PO (08:52)
[2022-12-23] MEDS: LACTULOSE 20 GM/30 ML UDC 10 GM PO ×2 (08:52→16:35)
[2022-12-23] MEDS: ENOXAPARIN 40 MG/0.4 ML SYRINGE SUB-Q (08:52)
[2022-12-23] MEDS: amLODIPine BESYLATE 2.5 MG TABLET PO (08:52)
[2022-12-23] MEDS: PANTOPRAZOLE SOD SESQUIHYDRATE 20 MG TAB PO (08:53)
[2022-12-23 13:33] VITALS: BP 124/85; PULSE 84; RESP 18; TEMP 37; O2SAT 98
--- NOTE | 2022-12-23 15:34 | PM.IMPN ---
Progress Note: A&P Assessment and Plan (1) Vomiting: Qualifiers: Nausea presence: with nausea Vomiting type: unspecified Qualified Code(s): R11.2 - Nausea with vomiting, unspecified Code(s): R11.10 - Vomiting, unspecified Status: Acute (2) Sinus tachycardia: Code(s): R00.0 - Tachycardia, unspecified Status: Acute (3) Retained ureteral stent: Code(s): Z96.0 - Presence of urogenital implants Status: Acute (4) HCAP (healthcare-associated pneumonia): Code(s): J18.9 - Pneumonia, unspecified organism Status: Acute (5) Hypokalemia: Code(s): E87.6 - Hypokalemia Status: Acute Plan # Vomiting and constipation CT chest and abdomen showed constipation r/o Colitis Continue oral doxycline and flagyl x 5 days (per recent discharge) Lipase was normal Still continues to have on and off symptom. Will stop her antibiotics today. WBC count as improved. will watch off antibiotics will reassess with CT abdomen pelvis today # recent history of Septic shock s/p Levophed blood 1 bottle growing Staph epidermidis MRSA screen positive Completed 4 days of? Vanc and Cefepime and Flagyl Currently on doxycycline 100 mg p.o. b.i.d. . Completes a course of antibiotic will stop them today # h/o HAP L upper and lower lobes Continue care above and monitor MRSA screen positive CT chest showed resolution continue above abx # h/o UTI with ureteral stone s/p ureteral stent hx of ESBL Continue abx as above f/u with urology on discharge # hypokalemia severe replaced. Recheck and monitor # hypernatremia mild will continue to monitor improved # h/o RADHA resolved but slowly worsening will hold losartan # altered mental status pt is more alert today # dVT prophylaxis -? Lovenox # nutrition - ? on modified diet after swallow evaluation # code Status - Full Code Subjective Date/time seen: 12/23/22 15:34 Interval history: Patient reports her legs are hurting. She has a bit confused. Discussed with the nursing staff. Presented with nausea vomiting a day after discharge from the hospital. Presented prior to that was septic shock was treated in the ICU related to possible pneumonia. She has not been nauseated or throwing up since admission. She reports she does not have any abdominal pain. 12/21/2022: Patient complains of some cramping in her umbilical area today. No nausea vomiting. She also reports leg pains. Labs are reviewed. Discussed with the nursing staff. 12/22/2022: No overnight events. Feels okay this morning. Eating okay. States her abdomen is sore at times. Not currently. No nausea vomiting. Discussed with nursing staff. 12/23/2022: Reports abdominal and is sore on and off. Denies nausea vomiting. Ate well this morning. Review of Systems Review of Systems: All systems reviewed & are unremarkable except as noted in HPI and below Exam Narrative: GENERAL: Well-appearing, well-nourished, and in no acute distress. HEAD: Normocephalic, atraumatic. EYES: PERRLA and EOMI. ENT: Nares clear, no rhinorrhea or epistaxis.? Mucous membranes moist. NECK: Supple.? No adenopathy or masses.? CHEST: No respiratory distress. Clear to auscultation. No wheezes rales or rhonchi HEART: Regular rate and rhythm.? No murmur heard.? Normal peripheral pulses. ABDOMEN: Soft, Tender periumbilical area, distended, normal active bowel sounds. EXTREMITIES: Normal range of motion.? No edema. Contractures in lower extremities due to functional paraplegia SKIN: Warm, dry, no rash. NEURO: Alert and conversant PSYCH: Normal mood and affect.? Objective Data Vital Signs Vital Signs: Vital Signs - 24 hr 12/22/22 20:00 12/22/22 21:21 12/22/22 22:00 Temperature 97.2 F L Pulse Rate 79 79 84 Respiratory Rate 22 H 18 Blood Pressure 166/97 H Pulse Oximetry 100 99 Oxygen Delivery Room Air 12/23/22 06:00 12/23/22 08:52 12/23/22 08:00 [place]
[2022-12-23 20:23] VITALS: PULSE 83
[2022-12-23] MEDS: traZODone HCL 50 MG TABLET PO (20:24)
[2022-12-23] MEDS: CITALOPRAM HYDROBROMIDE 20 MG TABLET PO (20:24)
[2022-12-23 21:12] VITALS: BP 99/67; PULSE 101; RESP 16; TEMP 35.9; O2SAT 97
[2022-12-24 04:23] VITALS: BP 129/80; PULSE 86; RESP 16; TEMP 35.7; O2SAT 98
[2022-12-24] MEDS: SALINE LOCK FLUSH 10 ML IV PUSH ×3 (05:29→21:37)
[2022-12-24 07:25] LABS: Basophils Absolute Auto 0.1 K/mm3 (0.0-0.1); Basophils Percent Auto 0.7 % (0.2-1.2); Eosinophils Absolute Auto 0.4 K/mm3 (0-0.3); Hematocrit 36.3 % (37.0-47.0); Hemoglobin 10.9 g/dL (12.0-15.0); Immature Granulocyte Absolute 0.06 K/mm3 (0.00-0.031); Immature Granulocyte Percent A 0.5 % (0-0.5); Lymphocytes Absolute Auto 3.06 K/mm3 (0.9-3.2); Lymphocytes Percent Auto 25.4 % (18.3-44.2); Mean Corpuscular Hemoglobin 25.5 pg (26-34); Mean Corpuscular Volume 84.8 fl (80-100); Mean Platelet Volume 10.1 fl (7.4-10.4); Monocytes Absolute Auto 0.9 K/mm3 (0.1-0.6); Monocytes Percent Auto 7.2 % (2.6-8.5); Neutrophils Absolute Auto 7.6 K/mm3 (1.3-6.7); Neutrophils Percent Auto 63.2 % (45.5-73.1); Platelet Count Result 388 k/mm3 (150-375); Red Blood Count 4.28 M/mm3 (4.2-5.4); Red Cell Distribution Width 18.4 % (11.5-14.5); White Blood Count 12.1 K/mm3 (4.5-10.0)
[2022-12-24 07:50] LABS: Alanine Aminotransferase 15 U/L (6-35); Albumin Level 3.8 g/dL (3.5-5.1); Alkaline Phosphatase 136 U/L (38-126); Anion Gap 6 mmol/L (8-16); Aspartate Amino Transferase 23 U/L (14-36); Bilirubin,Total 0.5 mg/dL (0.2-1.3); Blood Urea Nitrogen 17 mg/dL (7-17); Calcium 9.1 mg/dL (8.4-10.2); Carbon Dioxide 23 mmol/L (22-30); Chloride 112 mmol/L (98-107); Estimated CRCL calculation 40 ml/min; Estimated Glomerular Filt Rate 42; Glucose 96 mg/dL (65-110); Magnesium 1.8 mg/dL (1.6-2.3); Sodium 141 mmol/L (137-145)
[2022-12-24] MEDS: amLODIPine BESYLATE 2.5 MG TABLET PO (09:40)
[2022-12-24 09:41] VITALS: PULSE 88
[2022-12-24] MEDS: PANTOPRAZOLE SOD SESQUIHYDRATE 20 MG TAB PO (09:41)
[2022-12-24] MEDS: PREGABALIN (*CRX) 75 MG CAPSULE PO ×2 (09:41→18:17)
[2022-12-24] MEDS: METOPROLOL TARTRATE 50 MG TAB PO ×2 (09:41→21:36)
[2022-12-24] MEDS: CHOLECALCIFEROL 1,000 UNITS TABLET 1000 UNITS PO (09:42)
[2022-12-24] MEDS: HYDROCORTISONE 5 MG TABLET PO (09:42)
[2022-12-24] MEDS: ENOXAPARIN 40 MG/0.4 ML SYRINGE SUB-Q (09:43)
[2022-12-24] MEDS: POTASSIUM CHLORIDE 20 MEQ TABLET.ER 40 MEQ PO ×2 (09:43→18:17)
[2022-12-24] MEDS: cloNIDine 0.1 MG/24 HR PATCH 1 PATCH TRANSDERM (09:44)
[2022-12-24 14:00] VITALS: BP 83/57; PULSE 85; RESP 16; TEMP 37.2; O2SAT 98
--- NOTE | 2022-12-24 14:30 | PM.IMPN ---
Progress Note: A&P Assessment and Plan (1) Vomiting: Qualifiers: Nausea presence: with nausea Vomiting type: unspecified Qualified Code(s): R11.2 - Nausea with vomiting, unspecified Code(s): R11.10 - Vomiting, unspecified Status: Acute (2) Sinus tachycardia: Code(s): R00.0 - Tachycardia, unspecified Status: Acute (3) Retained ureteral stent: Code(s): Z96.0 - Presence of urogenital implants Status: Acute (4) HCAP (healthcare-associated pneumonia): Code(s): J18.9 - Pneumonia, unspecified organism Status: Acute (5) Hypokalemia: Code(s): E87.6 - Hypokalemia Status: Acute Plan # Vomiting and constipation CT chest and abdomen showed constipation r/o Colitis Continue oral doxycline and flagyl x 5 days (per recent discharge) Lipase was normal Still continues to have on and off symptom. Will stop her antibiotics today. WBC count as improved. will watch off antibiotics Reassess with CT abdomen pelvis planned but is pending # recent history of Septic shock s/p Levophed blood 1 bottle growing Staph epidermidis MRSA screen positive Completed 4 days of? Vanc and Cefepime and Flagyl Currently on doxycycline 100 mg p.o. b.i.d. . Completes a course of antibiotic and stopped # h/o HAP L upper and lower lobes Continue care above and monitor MRSA screen positive CT chest showed resolution continue above abx # h/o UTI with ureteral stone s/p ureteral stent hx of ESBL Continue abx as above f/u with urology on discharge # hypokalemia severe replaced. Recheck and monitor # hypernatremia mild will continue to monitor improved # h/o RADHA resolved but slowly worsening will hold losartan # altered mental status pt is more alert now # dVT prophylaxis -? Lovenox # nutrition - ? on modified diet after swallow evaluation # code Status - Full Code Subjective Date/time seen: 12/24/22 14:30 Interval history: Patient reports her legs are hurting. She has a bit confused. Discussed with the nursing staff. Presented with nausea vomiting a day after discharge from the hospital. Presented prior to that was septic shock was treated in the ICU related to possible pneumonia. She has not been nauseated or throwing up since admission. She reports she does not have any abdominal pain. 12/21/2022: Patient complains of some cramping in her umbilical area today. No nausea vomiting. She also reports leg pains. Labs are reviewed. Discussed with the nursing staff. 12/22/2022: No overnight events. Feels okay this morning. Eating okay. States her abdomen is sore at times. Not currently. No nausea vomiting. Discussed with nursing staff. 12/23/2022: Reports abdominal and is sore on and off. Denies nausea vomiting. Ate well this morning. 12/24/2022: No overnight events. Feels well. Denies any abdominal pain today. No nausea vomiting. Did not eat so well today. Review of Systems Review of Systems: All systems reviewed & are unremarkable except as noted in HPI and below Exam Narrative: GENERAL: Well-appearing, well-nourished, and in no acute distress. HEAD: Normocephalic, atraumatic. EYES: PERRLA and EOMI. ENT: Nares clear, no rhinorrhea or epistaxis.? Mucous membranes moist. NECK: Supple.? No adenopathy or masses.? CHEST: No respiratory distress. Clear to auscultation. No wheezes rales or rhonchi HEART: Regular rate and rhythm.? No murmur heard.? Normal peripheral pulses. ABDOMEN: Soft, mildly Tender periumbilical area, distended, normal active bowel sounds. EXTREMITIES: Normal range of motion.? No edema. Contractures in lower extremities due to functional paraplegia SKIN: Warm, dry, no rash. NEURO: Alert and conversant PSYCH: Normal mood and affect.? Objective Data Vital Signs Vital Signs: Vital Signs - 24 hr 12/23/22 20:23 12/23/22 21:12 12/23/22 20:00 Temperature 96.6 F L Pulse Rate 83 101 H Respiratory Rate 16
[2022-12-24 17:05] VITALS: BP 108/64
[2022-12-24 21:08] VITALS: BP 104/64; PULSE 93; RESP 18; TEMP 35.9; O2SAT 97
[2022-12-24 21:36] VITALS: PULSE 98
[2022-12-24] MEDS: CITALOPRAM HYDROBROMIDE 20 MG TABLET PO (21:36)
[2022-12-24] MEDS: traZODone HCL 50 MG TABLET PO (21:36)
[2022-12-25 04:29] VITALS: BP 116/76; PULSE 86; RESP 16; TEMP 35.9; O2SAT 97
[2022-12-25] MEDS: SALINE LOCK FLUSH 10 ML IV PUSH (05:45)
[2022-12-25 08:35] LABS: Anion Gap 10 mmol/L (8-16); Blood Urea Nitrogen 17 mg/dL (7-17); Calcium 8.8 mg/dL (8.4-10.2); Carbon Dioxide 15 mmol/L (22-30); Chloride 115 mmol/L (98-107); Estimated CRCL calculation 40 ml/min; Estimated Glomerular Filt Rate 42; Glucose 98 mg/dL (65-110); Magnesium 2.1 mg/dL (1.6-2.3); Potassium 4.8 mmol/L (3.4-5.0); Sodium 140 mmol/L (137-145)
[2022-12-25] MEDS: PREGABALIN (*CRX) 75 MG CAPSULE PO ×2 (09:43→17:15)
[2022-12-25 09:44] VITALS: PULSE 96
[2022-12-25] MEDS: ENOXAPARIN 40 MG/0.4 ML SYRINGE SUB-Q (09:44)
[2022-12-25] MEDS: CHOLECALCIFEROL 1,000 UNITS TABLET 1000 UNITS PO (09:44)
[2022-12-25] MEDS: METOPROLOL TARTRATE 50 MG TAB PO (09:44)
[2022-12-25] MEDS: amLODIPine BESYLATE 2.5 MG TABLET PO (09:45)
[2022-12-25] MEDS: PANTOPRAZOLE SOD SESQUIHYDRATE 20 MG TAB PO (09:45)
[2022-12-25] MEDS: HYDROCORTISONE 5 MG TABLET PO (09:45)
[2022-12-25 14:15] VITALS: BP 106/70; PULSE 89; RESP 17; TEMP 36.3; O2SAT 98
[2022-12-25 14:57] LABS: Basophils Absolute Auto 0.1 K/mm3 (0.0-0.1); Basophils Percent Auto 0.5 % (0.2-1.2); Eosinophils Absolute Auto 0.3 K/mm3 (0-0.3); Eosinophils Percent Auto 2.1 % (0-4.4); Hematocrit 36.5 % (37.0-47.0); Hemoglobin 10.9 g/dL (12.0-15.0); Immature Granulocyte Absolute 0.07 K/mm3 (0.00-0.031); Immature Granulocyte Percent A 0.5 % (0-0.5); Lymphocytes Absolute Auto 2.68 K/mm3 (0.9-3.2); Lymphocytes Percent Auto 18.4 % (18.3-44.2); Mean Corpuscular HGB Conc 29.9 g/dl (32-36); Mean Corpuscular Hemoglobin 25.7 pg (26-34); Mean Corpuscular Volume 86.1 fl (80-100); Mean Platelet Volume 9.9 fl (7.4-10.4); Monocytes Percent Auto 6.9 % (2.6-8.5); Neutrophils Absolute Auto 10.5 K/mm3 (1.3-6.7); Neutrophils Percent Auto 71.6 % (45.5-73.1); Platelet Count Result 386 k/mm3 (150-375); Red Blood Count 4.24 M/mm3 (4.2-5.4); Red Cell Distribution Width 18.5 % (11.5-14.5); White Blood Count 14.6 K/mm3 (4.5-10.0)
[2022-12-25 15:08] LABS: Anion Gap 8 mmol/L (8-16); Blood Urea Nitrogen 17 mg/dL (7-17); Calcium 8.8 mg/dL (8.4-10.2); Carbon Dioxide 20 mmol/L (22-30); Chloride 112 mmol/L (98-107); Estimated CRCL calculation 40 ml/min; Estimated Glomerular Filt Rate 42; Glucose 96 mg/dL (65-110); Potassium 4.3 mmol/L (3.4-5.0); Sodium 140 mmol/L (137-145)
[2022-12-25 15:19] LABS: Hypochromasia 1+ (NORMAL); Ovalocytes 1+ (NORMAL)
[2022-12-25 15:20] LABS: Schistocytes None Seen (NORMAL)
--- NOTE | 2022-12-25 15:27 | PM.DS ---
DS: Admitting Diagnosis Discharge Date 12/25/2022 Admitting Diagnosis Nausea vomiting DS: Discharge Diagnosis Discharge Diagnosis (1) Vomiting: Qualifiers: Nausea presence: with nausea Vomiting type: unspecified Qualified Code(s): R11.2 - Nausea with vomiting, unspecified Code(s): R11.10 - Vomiting, unspecified Status: Acute (2) Sinus tachycardia: Code(s): R00.0 - Tachycardia, unspecified Status: Acute (3) Retained ureteral stent: Code(s): Z96.0 - Presence of urogenital implants Status: Acute (4) HCAP (healthcare-associated pneumonia): Code(s): J18.9 - Pneumonia, unspecified organism Status: Acute (5) Hypokalemia: Code(s): E87.6 - Hypokalemia Status: Acute DS: Summary Hospital Course Hospital Course: # nausea Vomiting and constipation CT chest and abdomen showed constipation r/o Colitis Continue oral doxycycline and flagyl x 5 days (per recent discharge) ? Lipase was normal Still continues to have on and off symptom.? Finished antibiotic course during the hospital stay. Reassess with CT abdomen pelvis revealed no acute abnormality Tolerating diet having regular bowel movement # recent history of Septic shock in her last admission Needing vasopressor blood 1 bottle growing Staph epidermidis MRSA screen positive Completed 4 days of? Vanc and Cefepime and Flagyl Currently on doxycycline 100 mg p.o. b.i.d. .? Completes a course of antibiotic and stopped # h/o HAP L upper and lower lobes Continue care above and monitor MRSA screen positive CT chest showed resolution Finished antibiotic course # h/o UTI with ureteral stone s/p ureteral stent hx of ESBL Continue abx as above f/u with urology on discharge as previously planned # hypokalemia severe replaced. Recheck and monitor # hypernatremia mild will continue to monitor improved # h/o RADHA resolved but slowly worsening will hold losartan # altered mental status pt is more alert now and back to baseline mental status # dVT prophylaxis -? Lovenox # nutrition - ? on modified diet after swallow evaluation # code Status - Full Code Time Spent with Patient Time attestation: Total time spent providing and/or coordinating discharge services: Forty-five Exam Narrative: GENERAL: Well-appearing, well-nourished, and in no acute distress. HEAD: Normocephalic, atraumatic. EYES: PERRLA and EOMI. ENT: Nares clear, no rhinorrhea or epistaxis.? Mucous membranes moist. NECK: Supple.? No adenopathy or masses.? CHEST: No respiratory distress. Clear to auscultation. No wheezes rales or rhonchi HEART: Regular rate and rhythm.? No murmur heard.? Normal peripheral pulses. ABDOMEN: Soft, nontender, mildly distended, normal active bowel sounds. EXTREMITIES: Normal range of motion.? No edema. Contractures in lower extremities due to functional paraplegia SKIN: Warm, dry, no rash. NEURO: Alert and conversant PSYCH: Normal mood and affect.? DS: Data Data Completed and Pending Labs on day of discharge: Labs from last 24 hours 12/25/22 12/25/22 12/25/22 14:45 14:42 14:42 WBC 14.6 H RBC 4.24 Hgb 10.9 L Hct 36.5 L MCV 86.1 MCH 25.7 L MCHC 29.9 L RDW 18.5 H Plt Count 386 H MPV 9.9 Immature Gran % (Auto) 0.5 Neut % (Auto) 71.6 Lymph % (Auto) 18.4 [place] % (Auto) 6.9 Eos % (Auto) 2.1 Baso % (Auto) 0.5 Lymph # (Auto) 2.68 [place] # (Auto) 1.0 H Eos # (Auto) 0.3 Baso # (Auto) 0.1 Abs Immat Gran (auto) 0.07 H Absolute Neuts (auto) 10.5 H Absolute Nucleated RBC 0.0 Nucleated RBC % 0.0 Platelet Estimate Slightly increased % Immature Plt Fraction Hypochromasia 1+ Ovalocytes 1+ Schistocytes None seen Sodium 140 Potassium 4.3 Chloride 112 H Carbon Dioxide 20 L Anion Gap 8 BUN 17 Creatinine 1.30 H Estim Creat Clear Calc 40 Estimated GFR 42 L Glucose 96 Calcium 8.8 M
[2022-12-25 15:38] LABS: EDCOVIDSCREEN Negative (Negative)
[2022-12-25] MEDS: NEOMYCIN/POLYMYXIN/BACITRACIN OINTMENT PACKET 1 PACKET (15:40)
[2022-12-25] MEDS: LACTULOSE 20 GM/30 ML UDC 10 GM PO (17:16)
[2022-12-25] MEDS: POTASSIUM CHLORIDE 20 MEQ TABLET.ER 40 MEQ PO (17:16)
--- NOTE | 2022-12-25 18:19 | PC.NURSE ---
Called report to [facility]. Spoke with aTmmi.
== END 2022-12-25 19:20 | DRG 391 ==
LOC: ANHED 12-17 01:06 → ANH3MEDSUR 12-17 03:11
PROVIDERS: Emergency Medicine; Family Medicine; Internal Medicine; Admitting Provider Internal Medicine; Emergency Provider Physician Assistant; PCP Internal Medicine; Visit Provider Internal Medicine
DX: K59.00 Constipation, unspecified (principal); R53.2 Functional quadriplegia; E87.0 Hyperosmolality and hypernatremia; R11.2 Nausea with vomiting, unspecified; E87.6 Hypokalemia; R41.82 Altered mental status, unspecified; Z96.0 Presence of urogenital implants; R00.0 Tachycardia, unspecified; J44.9 Chronic obstructive pulmonary disease, unspecified; Z99.81 Dependence on supplemental oxygen; G35 Multiple sclerosis; Z87.891 Personal history of nicotine dependence; Z20.822 Contact with and (suspected) exposure to COVID-19
CPT/HCPCS: 36415; 36569; 51703; 71260; 74176; 74177; 80048; 80053; 81001; 83605; 83690; 83735; 85025; 85027; 87040; 87086; 87426; 93005; 96365; 96367; 96375; 99285; A9270; C1751; C9803; J0360; J1650; J1956; J2550; J3475; J3480; J7030; J7040; Q9967

== ENCOUNTER 2023-07-27 05:07 | Inpatient (IN) | payer MEDICARE, MEDICAID, SELFPAY ==
[2023-07-27] VITALS (10 sets, daily range): BP systolic 85–144; BP diastolic 62–85; PULSE 74–117; RESP 15–25; TEMP 36.4–37.2; O2SAT 93–99; BMI 27.1
--- NOTE | ~2023-07-27 | CT_ITS ---
EXAMINATION: CTA chest PE protocol DATE: 08/01/2023 14:14 INDICATION: r/o pulmonary embolus. pt's cr has improved now. TECHNIQUE: Computed tomography angiography (CTA) of the chest was performed with 100 mL Omnipaque-350 intravenous contrast timed to evaluate the pulmonary arteries. Coronal maximum intensity projection 3D-reconstructions were created by the technologist. The dose-length product (DLP) was 427.37 mGy-cm. Automated exposure control and iterative reconstruction technique were employed. COMPARISON: CT cap 12/17/2022; VQ scan 07/27/2023 . FINDINGS: Lung parenchyma and airways: Motion artifact. Dependent subsegmental consolidation. Pleura: Small volume bilateral pleural effusions. Thoracic inlet, axillae and chest wall: Unremarkable. Thoracic aorta: Mild ectasia. No significant plaque.. Mediastinum: Small hiatal hernia. Heart and pericardium: Cardiomegaly. Coronary artery calcifications: Mild. Upper abdomen: No significant finding. Bones: Exaggerated thoracic kyphosis. Stable moderate lower thoracic compression fracture.. Pulmonary arteries: Study quality: Motion artifact in the upper lungs, otherwise diagnostic. Subsegme ntal pulmonary arterial defect in the posterior segment of the left upper lobe. IMPRESSION: Acute/subacute segmental pulmonary embolus involving the posterior segment of the left upper lobe. Sm all clot burden. No evidence of right heart strain. Additional perfusion defects described in the prior VQ scan in the superior segment of the right lowe r lobe in the lateral basilar segment of the right lower lobe were not visualized by CT. Dependent atelectasis/consolidation. Small bilateral effusions Reviewed, dictated and finalized at location K. IMPRESSION: Acute/subacute segmental pulmonary embolus involving the posterior segment of t he left upper lobe. Small clot burden. No evidence of right heart strain. Additional perfusion defects described in the prior VQ scan in the superior seg ment of the right lower lobe in the lateral basilar segment of the right lower lobe were not visualized by CT. Dependent atelectasis/consolidation. Small bilateral effusions
--- NOTE | ~2023-07-27 | XR_ITS ---
EXAMINATION: XR chest 1V portable DATE: 07/27/2023 06:12 INDICATION: Cough. COVID-19. TECHNIQUE: A single frontal view of the chest was obtained. COMPARISON: Chest single view 12/12/2022, CT abdomen and pelvis 12/24/2022 FINDINGS: There is elevation of right hemidiaphragm. There are airspace opacities in left lower lung zone. No pleural effusion or pneumothorax. The heart size is normal. IMPRESSION: 1. Airspace opacities in left lower lung zone, consistent with atelectasis/scarring or less likely pn eumonia. 2. Chronic elevation of right hemidiaphragm. Reviewed, dictated and finalized at location E. IMPRESSION: 1. Airspace opacities in left lower lung zone, consistent with atelectasis/scar ring or less likely pneumonia. 2. Chronic elevation of right hemidiaphragm.
--- NOTE | ~2023-07-27 | US_ITS ---
EXAMINATION: US renal BI DATE: 07/28/2023 18:29 INDICATION: acute kidney injury TECHNIQUE: Multiple grayscale and Doppler ultrasound images of the kidneys were obtained. COMPARISON: CT abdomen pelvis 12/24/2022 FINDINGS: The right kidney is surgically absent The left kidney measures 10.8 x 5.4 x 5.8 cm. The left kidney d emonstrates normal parenchymal echogenicity. Multiple echogenicities associated with the left renal p amanda and calyces. There is mild left hydronephrosis. The bladder is decompressed by Naranjo catheter. IMPRESSION: Multiple left renal echogenicities likely representing a combination of stones and the proximal aspec t of a ureteral stent, if still in position. Mild left hydronephrosis. Status post right nephrectomy. Reviewed, dictated and finalized at location K. IMPRESSION: Multiple left renal echogenicities likely representing a combination of stones and the proximal aspect of a ureteral stent, if still in position. Mild left hy dronephrosis. Status post right nephrectomy.
--- NOTE | ~2023-07-27 | XR_ITS ---
EXAMINATION: XR chest 1V portable INDICATION: Shortness of breath TECHNIQUE: Portable AP chest at 1430 hours COMPARISON: 07/27/2023 FINDINGS: There is elevation of the right hemidiaphragm. There is mild atelectasis of the left lung b ase. No pleural effusion or pneumothorax. The cardiomediastinal silhouette is normal. IMPRESSION: 1. Left basilar atelectasis. Reviewed, dictated and finalized at location L. E [employer]
--- NOTE | ~2023-07-27 | NM_ITS ---
EXAMINATION: NM pulmonary perfusion DATE: 07/27/2023 15:36 INDICATION: Hypoxia. Elevated d-dimer. TECHNIQUE: 5.4 mCi Tc-99m MAA by intravenous route. Scintigraphic images of the chest were obtained. COMPARISON: Chest radiograph dated 07/27/2023 FINDINGS: On the radiographs there is decreased right lung volume. Large perfusion defect involving the superio r segment of the right lower lobe. Moderate-sized perfusion defect involving the posterior segment of the left upper lobe. Moderate-sized perfusion defect involving the lateral basilar segment of the ri ght lower lobe. These are all without radiologic correlate on the prior radiographs. Small perfusion defect at the basilar aspect of the lingula with corresponding airspace opacity in the radiographs. IMPRESSION: 1. High probability for pulmonary embolism. Reviewed, dictated and finalized at location A.
--- NOTE | ~2023-07-27 | XR_ITS ---
EXAMINATION: XR abdomen/kub 1V DATE: 07/31/2023 08:15 INDICATION: Abdominal distention. TECHNIQUE: A supine view of the abdomen was obtained. COMPARISON: Abdomen radiograph 10/28/2022 FINDINGS: Stool distends the rectosigmoid. The small bowel is normal in caliber. There are numerous s tones in left kidney measuring up to 17 mm. There is a left internal ureteral stent in expected posit ion. There are inserts in the area of the fallopian tubes. There are surgical clips in right abdomen. There is internal fixation of right femur. There is ankylosis of the hip joints. IMPRESSION: 1. Stool distends the rectosigmoid. 2. Left kidney stones with left internal ureteral stent in expected position. Reviewed, dictated and finalized at location E.
--- NOTE | ~2023-07-27 | XR_ITS ---
Indication: Attempted left internal ureteral stent exchange TECHNIQUE: Fluoroscopy used during attempted left internal ureteral stent exchange performed by [Aidan Can MD] on 08/02/2023. 2 seconds of fluoroscopy with one fluoroscopic images captured . FINDINGS: Correlate with procedure note. IMPRESSION: Fluoroscopy used during attempted left internal ureteral stent exchange. Reviewed, dictated and finalized at location A. IMPRESSION: Fluoroscopy used during attempted left internal ureteral stent exch rona.
--- NOTE | ~2023-07-27 | US_ITS ---
EXAMINATION: US venous doppler [facility] DATE: 07/28/2023 18:30 INDICATION: elevated d dimer, immobile . TECHNIQUE: Grayscale images without and with compression and Doppler images of the bilateral lower ex tremity veins were obtained. COMPARISON: None FINDINGS: Examination significantly limited by leg contractures, numerous lower extremity veins not evaluable. The right popliteal, peroneal, posterior tibial, and gastrocnemius veins were not evaluated. The righ t common femoral vein, profunda (deep) femoral vein, femoral vein, and greater saphenous vein are pat ent. The left profunda (deep) femoral vein, femoral vein, popliteal vein, peroneal vein, posterior tibial veins, and gastrocnemius vein not evaluated. The left common femoral vein and greater saphenous vein were patent. IMPRESSION: Limited examination. Deep venous thrombosis not excluded. Reviewed, dictated and finalized at location K.
--- NOTE | 2023-07-27 05:11 | ECG_ITS ---
Measurements Intervals Muse Rate: 101 P: 19 [place]: 147 QRS: -3 QRSD: 76 T: 10 QT: 335 QTc: 435 Interpretive Statements SINUS TACHYCARDIA WITH OCCASIONAL VENTRICULAR PREMATURE COMPLEXES LOW QRS VOLTAGE IN PRECORDIAL LEADS [QRS DEFLECTION < 1.0 mV IN CHEST LEADS] INFERIOR MYOCARDIAL INFARCTION , PROBABLY OLD [40+ ms Q WAVE AND/OR ST/T ABNORMALITY IN II/aVF] COMPARED TO ECG 12/16/2022 23:19:19 MYOCARDIAL INFARCT FINDING NOW PRESENT Electronically Signed On 07-27-2023 7:37:51 CDT by Hima Villagran M.D.
--- NOTE | 2023-07-27 05:11 | ED.FEVER ---
HPI - Fever General Chief Complaint: Fever Stated Complaint: sob Time Seen by Provider: 07/27/23 05:10 Source: patient and EMS Limitations: dementia History of Present Illness HPI Narrative: Patient is a 58-year-old female present to the emergency department via EMS for fever and COVID. Patient was recently diagnosed with COVID-19 and was reportedly low oxygen saturations at the nursing facility that she states that and has been having some chest congestion and a cough prompting him to seek further evaluation for her. Patient states she is feeling chest congestion and some slight difficulty breathing and this is been going on for at least the past 24 hours. Patient denies chest pain, abdominal pain, nausea, vomiting, dysuria, hematuria, urinary frequency, urinary urgency, diarrhea, melena, new numbness or weakness, headache, sore throat. Patient denies any recent antibiotic use. Patient notes that she is chronically contracted in the lower extremities and does not ambulate. Patient denies any recent injuries. EMS reports the patient had a fever at the facility and was given 2 doses of Tylenol. EMS notes that the patient was in the high 80s on room air and was placed on 4 L nasal cannula has since been saturating in the mid to upper 90s. Patient is baseline oriented x1-2. Related Data Home Medications Medication Instructions Recorded Confirmed Laxative (sennosides) 8.6 mg PO PRN 12/17/22 12/17/22 acetaminophen 650 mg PO Q4-6H PRN Pain (Scale 12/17/22 12/17/22 Score 1-3) amlodipine 2.5 mg tablet 2.5 mg PO DAILY 12/17/22 12/17/22 cholecalciferol (vitamin D3) 1,000 units PO DAILY 12/17/22 12/17/22 citalopram 20 mg tablet 20 mg PO HS 12/17/22 12/17/22 famotidine 20 mg tablet 20 mg PO BID 12/17/22 12/17/22 hydrocortisone 5 mg tablet 5 mg PO DAILY 12/17/22 12/17/22 ipratropium bromide 0.02 % 1 ml inhalation DAILY 12/17/22 12/17/22 solution for inhalation lactulose 10 gram/15 mL oral 10 g PO BID 12/17/22 12/17/22 solution metoprolol tartrate 50 mg tablet 50 mg PO BID 12/17/22 12/17/22 ondansetron 4 mg disintegrating 4 mg translingual QID PRN Nausea 12/17/22 12/17/22 tablet And Vomiting polyethylene glycol 3350 17 g PO DAILY PRN Constipation 12/17/22 12/17/22 potassium chloride 20 mEq oral 20 meq PO DAILY 12/17/22 12/17/22 packet trazodone 50 mg tablet 50 mg PO HS 12/17/22 12/17/22 Allergies Allergy/AdvReac Type Severity Reaction Status Date / Time No Known Allergies Allergy Verified 10/20/22 17:29 Review of Systems Review of Systems: A 10 system review of systems was completed on the patient and is negative except for what is stated in the HPI. Nursing and ancillary documentation was reviewed. [facility] Past Medical History Medical History Anemia COPD (chronic obstructive pulmonary disease) Chronically O2 dependent on 4 L. Dementia Depression Essential (primary) hypertension Functional quadriplegia secondary to MS Generalized anxiety disorder History of ESBL E. 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 Her guardian is Abe Burnham and can be reached at [phone]. Patient is a full code at this time Smoking packs per day: 0.5 Smoking cigarettes per day: 10.0 Years smoked: 1 Smoking pack-years: 0.50 Smoking status: Former smoker
[2023-07-27 05:50] LABS: Basophils Absolute Auto 0.1 K/mm3 (0.0-0.1); Basophils Percent Auto 0.3 % (0.2-1.2); Eosinophils Absolute Auto 0.2 K/mm3 (0-0.3); Eosinophils Percent Auto 1.5 % (0-4.4); Hematocrit 31.3 % (37.0-47.0); Hemoglobin 9.2 g/dL (12.0-15.0); Immature Granulocyte Absolute 0.08 K/mm3 (0.00-0.031); Immature Granulocyte Percent A 0.5 % (0-0.5); Lymphocytes Absolute Auto 1.12 K/mm3 (0.9-3.2); Mean Corpuscular HGB Conc 29.4 g/dl (32-36); Mean Corpuscular Hemoglobin 23.2 pg (26-34); Mean Corpuscular Volume 78.8 fl (80-100); Monocytes Absolute Auto 0.5 K/mm3 (0.1-0.6); Neutrophils Absolute Auto 14.1 K/mm3 (1.3-6.7); Neutrophils Percent Auto 87.7 % (45.5-73.1); Platelet Count Result 538 k/mm3 (150-375); Red Blood Count 3.97 M/mm3 (4.2-5.4); Red Cell Distribution Width 20.4 % (11.5-14.5); White Blood Count 16.1 K/mm3 (4.5-10.0)
[2023-07-27 06:00] LABS: INR 1.2; Prothrombin Time 16.2 Seconds (11.1-14.7)
[2023-07-27 06:01] LABS: Lactic Acid Reflex 0.8 mmol/L (0.7-2.0)
[2023-07-27 06:05] LABS: Alanine Aminotransferase 15 U/L (6-35); Albumin Level 3.7 g/dL (3.5-5.1); Alkaline Phosphatase 170 U/L (38-126); Anion Gap 11 mmol/L (8-16); Aspartate Amino Transferase 14 U/L (14-36); Bilirubin,Total 0.5 mg/dL (0.2-1.3); Blood Urea Nitrogen 43 mg/dL (7-17); Calcium 9.4 mg/dL (8.4-10.2); Carbon Dioxide 12 mmol/L (22-30); Chloride 119 mmol/L (98-107); Estimated Glomerular Filt Rate 24; Glucose 112 mg/dL (65-110); Magnesium 1.9 mg/dL (1.6-2.3); Potassium 4.2 mmol/L (3.4-5.0); Sodium 142 mmol/L (137-145)
[2023-07-27 06:11] LABS: Troponin I < 0.012 ng/mL (0.000-0.034)
[2023-07-27 06:13] LABS: CRP 20.8 mg/dL (<1.0)
[2023-07-27 06:14] LABS: Anisocytosis 2+ (NORMAL); Hypochromasia 1+ (NORMAL); Platelet Estimate Increased (Adequate); Schistocytes None Seen (NORMAL)
[2023-07-27] MEDS: SODIUM CHLORIDE 0.9% IV 1,000 ML 999 ML IV CONT (06:16)
[2023-07-27 06:22] LABS: D Dimer 2.64 ug/mL (<0.48)
[2023-07-27 06:50] LABS: Influenza A QL RT-PCR Negative (Negative); Influenza B QL RT-PCR Negative (Negative); SARS-CoV-2 RNA PCR Positive (Negative)
[2023-07-27] MEDS: CEFEPIME 2 GM/NS 50 ML 2 GM/50 ML BAG IVPB (07:12)
[2023-07-27 07:20] LABS: Appearance Urine Turbid (Clear); Bacteria Urine 4+ /hpf; Bilirubin Urine Negative (Negative); Blood Urine 3+ (Negative); Color Urine Dark Yellow (Yellow); Glucose Urine UA Negative (Negative); Ketones Urine Trace mg/dL (Negative); Leukocyte Esterase Ur 3+ LEU/UL (Negative); Need Manual Microscopic Reviewed; Nitrate Urine Negative (Negative); Protein Urine 4+ mg/dL (Negative); RBC Urine >100 /hpf (0-2); Specific Grav Ur 1.016 (1.001-1.035); Squamous Epithelial Cell Urine Many /hpf (Few); WBC Urine >100 /hpf; pH Urine 7.5 (5.0-9.0)
[2023-07-27] MEDS: SODIUM CHLORIDE 0.9% IV 1,800 ML/1,800 ML ML 999 ML IV CONT (07:45)
[2023-07-27 07:47] LABS: Add Urine Microscopic? YES
--- NOTE | 2023-07-27 09:18 | ADMGEN ---
This patient, Yesenia Perez, was admitted to Medical Room 242-. Patient/family oriented to hospital policies and general routines including ID bracelet, bed and alarms, visiting hours, pain management, procedures, bathroom and other care routines, personal items, smoking policy, room service/diet, and visiting hours. Information on how to activate the Rapid Response Team has been discussed. Patient/Family are encouraged to report perceived risks to care and to ask questions if they do not understand what they are told or what they should do.
[2023-07-27] MEDS: SODIUM CHLORIDE 0.9% IV 1,000 ML 125 ML IV CONT ×2 (12:08→22:00)
--- NOTE | 2023-07-27 12:46 | PCDIET ---
Please add AYALA BID and Ensure compact BID for once diet is ordered for pt.
--- NOTE | 2023-07-27 14:14 | PM.IMHP ---
H&P: HPI History of Present Illness Date/Time: 07/27/23 14:30 Chief Complaint: Hypoxia, COVID positive. Narrative: This is a chronically debilitated 58-year-old female with multiple sclerosis, dementia, hypertension, anemia, depression, pulmonary embolism in 2014, and history of MRSA presented to the emergency department via EMS from [facility] for evaluation of hypoxic after recent COVID diagnosis. The patient provides the following history however she is only a fair historian and some of the following is supplemented via a review of her EMR. The last couple of days she has had chest congestion and a loose but nonproductive cough. Overnight she developed a fever to 104? F and this morning she was reportedly hypoxic in the 80s for which she was placed on 4 L nasal cannula. Blood pressure was in the 80 systolic on arrival to the ED but has improved with IV fluids. Labs were significant for a WBC count of 16.1, hemoglobin 9.2, D-dimer 2.64, sodium 142, chloride 119, carbon dioxide 12, BUN 43, creatinine 2.10, lactic acid 0.8, CRP 20.8. She was confirmed to be COVID positive. Chest x-ray showed airspace opacities in lower lung zones consistent with atelectasis/scarring or less likely pneumonia and chronic elevation of the right hemidiaphragm. V/Q scan showed high probability for pulmonary embolism. In the ED she was given a dose of cefepime and vancomycin and was given 1800 mL bolus of normal saline. She is being admitted in this setting for further care. At the time my evaluation she complains of some discomfort in the back of her neck related to laying on the gurney in the ER. She denies sore throat, chest pain, feelings of shortness of breath, nausea, vomiting, and diarrhea. Review of Systems Review of Systems: Twelve systems were reviewed and are negative except for as per HPI. [facility] Past Medical History Medical History Anemia Chronic obstructive pulmonary disease Chronic respiratory failure with hypoxia, on home oxygen therapy Previously documented that the patient is oxygen dependent on 4 L nasal cannula however she denies and is on room air with good SpO2 as of 07/27/2023. 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 History of tubal ligation Family History Family History Mother Family history of multiple sclerosis Hypertension Father Patient's father is Social History Social History Social History: Patient is a ramos of the [facility]. Her guardian is Abe Burnham ([phone]). Code status: Full code. Smoking packs per day: 0.5 Smoking cigarettes per day: 10.0 Years smoked: 1 Smoking pack-years: 0.50 Smoking status: Never smoker Tobacco type: cigarettes Second hand tobacco smoke exposure: No Alcohol intake: never Substance use: never Lack of Transportation: No Lack of Food: Never True Current Housing: Decline to Answer Concerned About Future Housing: Decline to Answer Difficulty Paying Gas/Electric Bills: Decline to Answer Difficulty Paying for Meds: Decline to Answer Currently Unemployed: Decline to Answer Education: Decline to Answer Difficulty w/ Childcare or Family Care: Decline to Answer Living arrangements: nu
[2023-07-27 15:18] LABS: Anion Gap 14 mmol/L (8-16); Blood Urea Nitrogen 38 mg/dL (7-17); Calcium 8.5 mg/dL (8.4-10.2); Carbon Dioxide 9 mmol/L (22-30); Chloride 120 mmol/L (98-107); Creatine Kinase < 20 U/L (30-135); Estimated Glomerular Filt Rate 29; Glucose 96 mg/dL (65-110); Potassium 3.6 mmol/L (3.4-5.0); Sodium 143 mmol/L (137-145)
[2023-07-27 15:26] LABS: NT Pro B Type Natriuretic Pept 1570 pg/mL (19.9-100)
[2023-07-27 15:37] LABS: Troponin I < 0.012 ng/mL (0.000-0.034)
[2023-07-27 16:22] LABS: Iron 20 ug/dL (37-170); Lactate Dehydrogenase 175 U/L (120-246)
[2023-07-27 16:25] LABS: Procalcitonin 0.4 ng/mL
[2023-07-27 16:31] LABS: Percent Iron Saturation 10 % (20-50)
[2023-07-27] MEDS: FAMOTIDINE 20 MG TABLET PO (16:54)
[2023-07-27] MEDS: MEGESTROL ACETATE (*CHEMO) ORAL SUSP 40 MG/ML SYR 400 MG PO (16:54)
[2023-07-27] MEDS: LACTULOSE 20 GM/30 ML UDC PO (16:54)
[2023-07-27] MEDS: PREGABALIN (*CRX) 75 MG CAPSULE PO (16:54)
[2023-07-27] MEDS: ENOXAPARIN 60 MG/0.6 ML SYRINGE SUB-Q (16:54)
[2023-07-27 19:38] LABS: MRSA (PCR) DETECTED (NOT DETECTE)
[2023-07-27] MEDS: METOPROLOL TARTRATE 50 MG TAB PO (21:57)
[2023-07-27] MEDS: ACETAMINOPHEN 325 MG TABLET 650 MG PO (21:57)
[2023-07-27] MEDS: traZODone HCL 50 MG TABLET PO (21:58)
[2023-07-27] MEDS: CITALOPRAM HYDROBROMIDE 20 MG TABLET PO (21:58)
[2023-07-27 22:33] LABS: Folic Acid 11.2 ng/mL (2.76->20)
[2023-07-28] VITALS (13 sets, daily range): BP systolic 109–116; BP diastolic 68–78; PULSE 82–107; RESP 14–20; TEMP 36.1–37.1; O2SAT 96–100
[2023-07-28 00:06] LABS: Alveolar/Arterial O2 Gradient 83.1 mmHg; Base Excess ABG -12.8 mEq/l (+/-2.0); Carboxyhemoglobin 0.2 % THb (0-2.0); Fractional Inspired Oxygen 28 %; HCO3 ABG 12.3 mEq/l (22.0-26.0); Oxygen Content ABG 11.3 %vol (16.0-22.0); Oxygen Saturation ABG 95.9 % (95.0-100.0); Oxyhemoglobin 95.2 % THb (90.0-100.0); PCO2 ABG 25.6 mmHg (35.0-45.0); PO2 ABG 86.3 mmHg (80.0-100.0); PO2 FiO2 Ratio Arterial Blood 3.08 %; Reduced Hemoglobin 4.6 %THb (0-5.0); Total Hemoglobin 8.3 g/dL (12.0-18.0)
[2023-07-28 00:08] LABS: Device NASAL CANNULA; Modified Allen's Test Pass; Site Drawn RIGHT RADIAL
[2023-07-28] MEDS: AZITHROMYCIN 500 MG/NS 250 ML 500 MG/250 ML BAG 250 MG IVPB (00:12)
[2023-07-28] MEDS: SODIUM BICARBONATE 8.4% 150 MEQ in DEXTROSE 5% 1,000 ML 950 ML 100 MEQ IV CONT ×2 (03:11→15:31)
[2023-07-28] MEDS: ENOXAPARIN 60 MG/0.6 ML SYRINGE SUB-Q ×2 (06:07→17:30)
[2023-07-28] MEDS: MULTIVITAMINS /C LUTEIN (CENTRUM SILVER) TABLET *BKC 1 TAB PO (08:38)
[2023-07-28] MEDS: METOPROLOL TARTRATE 50 MG TAB PO ×2 (08:38→20:25)
[2023-07-28] MEDS: PREGABALIN (*CRX) 75 MG CAPSULE PO ×2 (08:38→18:18)
[2023-07-28] MEDS: FAMOTIDINE 20 MG TABLET PO ×2 (08:38→18:18)
[2023-07-28] MEDS: LACTULOSE 20 GM/30 ML UDC PO ×2 (08:38→18:18)
[2023-07-28] MEDS: CHOLECALCIFEROL 1,000 UNITS TABLET 1000 UNITS PO (08:38)
[2023-07-28] MEDS: POTASSIUM CHLORIDE 20 MEQ PACKET (FOR LIQUID) PO (08:39)
[2023-07-28 11:06] LABS: Estimated Glomerular Filt Rate 24
--- NOTE | 2023-07-28 11:35 | PM.IMPN ---
Progress Note: A&P Assessment and Plan (1) Pulmonary embolism: Code(s): I26.99 - Other pulmonary embolism without acute cor pulmonale Status: Acute Assessment and Plan: V/Q scan shows high probability for pulmonary embolism; lower extremity venous Doppler ultrasounds pending to rule out DVT. She has been started on enoxaparin 1 milligram/kilogram b.i.d. (2) COVID-19: Code(s): U07.1 - COVID-19 Status: Acute Assessment and Plan: Patient is at high risk for complication though she cannot receive remdesivir at this time given her acute kidney injury. continue Dexamethasone (3) Acute kidney injury: Code(s): N17.9 - Acute kidney failure, unspecified Status: Acute Assessment and Plan: Patient has an acute on chronic kidney injury. Cr 2.1 from 1.8 continue IVF and monitor (4) Chronic obstructive pulmonary disease: Code(s): J44.9 - Chronic obstructive pulmonary disease, unspecified Status: Acute Assessment and Plan: No acute issues. Continue maintenance inhalers. Bronchodilators q.6 hours if needed. (5) Chronic anemia: Code(s): D64.9 - Anemia, unspecified Status: Acute Assessment and Plan: with iron deficiency Isat 10, awaiting infection control to start Iron supplementation (6) Abnormal chest x-ray: Code(s): R93.89 - Abnormal findings on diagnostic imaging of other specified body structures Status: Acute Assessment and Plan: Chest x-ray shows airspace opacity than left lower lung zone which could be atelectasis/scarring or less likely pneumonia. WBC count is elevated thus will treat for possible pneumonia with azithromycin and ceftriaxone. (7) Abnormal urinalysis: Code(s): R82.90 - Unspecified abnormal findings in urine Status: Acute Assessment and Plan: Urine looks contaminated but is positive for bacteria and leukocyte esterase. Continue antibiotics, pending urine culture. Plan DVT prophylaxis on full dose lovenox Subjective Date/time seen: 07/28/23 11:35 Interval history: patient comfortable at bedside, Cr 2.1 from 1.8, MRSA positive Changed Abx to Levaquion and continued Vanc repeat lactic acid, continue IVF Review of Systems Review of Systems: Twelve systems were reviewed and are negative except for as per HPI. Exam Narrative: General: Chronically ill-appearing female in the semi-Car position in bed. Weight: 58.9 kg. BMI: 27.1. HEENT: Normocephalic, atraumatic. PERRL, EOMI. Sclera anicteric. Tacky mucous membranes. Oropharynx not visualized. Neck: Supple. No nuchal rigidity. No lymphadenopathy. Respiratory: Mildly tachypneic. She is speaking in full sentences. Lung sounds are diminished at the right base. Scattered, coarse rhonchi which improved somewhat with cough. Cardiovascular: Tachycardic with normal S1-S2. Gastrointestinal: Abdomen is soft, nontender, and nondistended with positive bowel sounds. Genitourinary: Naranjo catheter draining a small amount of dark yellow urine. Skin: Warm and dry. Generalized pallor. There is skin breakdown and hyperpigmentation of the right heel. Open wound on the buttock without evidence of acute infection. Extremities: No cyanosis, clubbing, or edema. Radial and pedal pulses intact. Neurological: Alert. Cranial nerves 2-12 are grossly intact. Bilateral pendulous nystagmus. Speech is clear. No facial asymmetry. Lower extremities are chronically contracted. Psychiatric: Pleasant and cooperative. Appropriate mood. Slightly forgetful. Objective Data Vital Signs Vital Signs: Vital Signs - 24 hr 07/27/23 16:05 07/27/23 20:14 07/27/23 21:57 Temperature 98.0 F 99 F Pulse Rate 103 H 117 H 110 H Respiratory Rate 20 22 H Blood Pressure 144/84 H 138/79 Pulse Oximetry 98 98 Oxygen Delivery Oxygen Flow Rate 07/28/23 01:05 07/28/23 00:00 07/28/23 05:53 Temperature 98.7
[2023-07-28] MEDS: levoFLOXacin 750 MG/D5W 150 ML 750 MG/150 ML BAG 100 MG IVPB (12:34)
[2023-07-28 12:39] LABS: Lactic Acid Reflex 1.1 mmol/L (0.7-2.0)
--- NOTE | 2023-07-28 12:41 | PCSTNOTE ---
Bedside swallowing evaluation completed. Patient seen bedside with head of bed elevated. Food tray with lunch available at bedside, utilized for swallowing evaluation. Cursory oral peripheral examination results within functional limits. Trials of solid (chicken in bite sized pieces), and mixed consistency (diced canned fruit in juice) in uncontrolled amounts were given by spoon. Patient consumed 75% of entree with rice with no soft signs of aspiration. Thin liquid was given by straw (iced tea) with patient showing no difficulty. Again, no soft signs of aspiration were observed. Please note that silent aspiration cannot be ruled out at bedside and can be evaluated with a modified barium swallow study. Recommendations: continue soft and bites sized diet consistency with thin liquids. Swallowing precaution recommendations posted in chart. No further speech therapy is recommended for this patient at this time. Thank you for this referral.
[2023-07-28] MEDS: MEGESTROL ACETATE (*CHEMO) ORAL SUSP 40 MG/ML SYR 400 MG PO (18:18)
[2023-07-28] MEDS: VANCOMYCIN 1,250 MG/NS 250 ML 1,250 MG/250 ML BAG 166.67 MG IVPB (18:21)
[2023-07-28] MEDS: ACETAMINOPHEN 325 MG TABLET 650 MG PO (20:24)
[2023-07-28] MEDS: CITALOPRAM HYDROBROMIDE 20 MG TABLET PO (20:25)
[2023-07-28] MEDS: traZODone HCL 50 MG TABLET PO (20:25)
[2023-07-29] VITALS (17 sets, daily range): BP systolic 112–150; BP diastolic 71–80; PULSE 60–116; RESP 16–22; TEMP 36.8–37.1; O2SAT 90–100
[2023-07-29] MEDS: SODIUM BICARBONATE 8.4% 150 MEQ in DEXTROSE 5% 1,000 ML 950 ML 100 MEQ IV CONT ×2 (05:34→20:34)
[2023-07-29] MEDS: ENOXAPARIN 60 MG/0.6 ML SYRINGE SUB-Q (05:35)
[2023-07-29 09:06] LABS: Basophils Percent Auto 0.2 % (0.2-1.2); Hematocrit 23.5 % (37.0-47.0); Immature Granulocyte Absolute 0.03 K/mm3 (0.00-0.031); Immature Granulocyte Percent A 0.5 % (0-0.5); Lymphocytes Absolute Auto 1.13 K/mm3 (0.9-3.2); Lymphocytes Percent Auto 18.6 % (18.3-44.2); Mean Corpuscular HGB Conc 29.4 g/dl (32-36); Mean Corpuscular Volume 78.3 fl (80-100); Mean Platelet Volume 10.3 fl (7.4-10.4); Monocytes Absolute Auto 0.3 K/mm3 (0.1-0.6); Monocytes Percent Auto 5.3 % (2.6-8.5); Neutrophils Absolute Auto 4.6 K/mm3 (1.3-6.7); Neutrophils Percent Auto 75.4 % (45.5-73.1); Platelet Count Result 344 k/mm3 (150-375); White Blood Count 6.1 K/mm3 (4.5-10.0)
[2023-07-29 09:17] LABS: Alanine Aminotransferase 13 U/L (6-35); Alkaline Phosphatase 122 U/L (38-126); Anion Gap 9 mmol/L (8-16); Aspartate Amino Transferase 15 U/L (14-36); Bilirubin,Total 0.4 mg/dL (0.2-1.3); Blood Urea Nitrogen 40 mg/dL (7-17); Carbon Dioxide 21 mmol/L (22-30); Chloride 112 mmol/L (98-107); Estimated Glomerular Filt Rate 26; Glucose 112 mg/dL (65-110); Magnesium 1.7 mg/dL (1.6-2.3); Sodium 142 mmol/L (137-145)
[2023-07-29 09:18] LABS: Lactic Acid Reflex 1.3 mmol/L (0.7-2.0)
[2023-07-29] MEDS: LACTULOSE 20 GM/30 ML UDC PO ×2 (09:27→18:06)
[2023-07-29] MEDS: FAMOTIDINE 20 MG TABLET PO ×2 (09:27→18:05)
[2023-07-29] MEDS: CHOLECALCIFEROL 1,000 UNITS TABLET 1000 UNITS PO (09:27)
[2023-07-29] MEDS: METOPROLOL TARTRATE 50 MG TAB PO ×2 (09:28→20:35)
[2023-07-29] MEDS: MULTIVITAMINS /C LUTEIN (CENTRUM SILVER) TABLET *BKC 1 TAB PO (09:28)
[2023-07-29] MEDS: PREGABALIN (*CRX) 75 MG CAPSULE PO ×2 (09:29→18:05)
[2023-07-29] MEDS: polyethylene glycoL 3350 17 GM POWD.PACK PO (09:29)
[2023-07-29] MEDS: POTASSIUM CHLORIDE 20 MEQ PACKET (FOR LIQUID) PO (09:29)
[2023-07-29 09:35] LABS: Hemoglobin 6.9 g/dL (12.0-15.0)
[2023-07-29 09:36] LABS: Anisocytosis 1+ (NORMAL); Hypochromasia 2+ (NORMAL); Platelet Estimate Adequate (Adequate)
[2023-07-29 09:37] LABS: Microcytosis 1+ (NORMAL); Poikilocytosis 1+ (NORMAL); Schistocytes Rare (NORMAL)
[2023-07-29 11:18] LABS: Iron 69 ug/dL (37-170)
[2023-07-29 11:22] LABS: Percent Iron Saturation 41 % (20-50)
--- NOTE | 2023-07-29 11:56 | PM.IMPN ---
Progress Note: A&P Assessment and Plan (1) Pulmonary embolism: Code(s): I26.99 - Other pulmonary embolism without acute cor pulmonale Status: Acute Assessment and Plan: V/Q scan shows high probability for pulmonary embolism; lower extremity venous Doppler ultrasound unable to to rule out DVT. Continue full dose Lovenox May need IVC filter is no source of bleed not traced. (2) COVID-19: Code(s): U07.1 - COVID-19 Status: Acute Assessment and Plan: Patient is at high risk for complication though she cannot receive remdesivir at this time given her acute kidney injury. continue Dexamethasone (3) Acute kidney injury: Code(s): N17.9 - Acute kidney failure, unspecified Status: Acute Assessment and Plan: Patient has an acute on chronic kidney injury. US renal showed left kidney stones with hydronephrosis Cr 2 from 2.1 Urology and nephrology consulte d continue IVF pending urology and nephrology eval (4) Chronic obstructive pulmonary disease: Code(s): J44.9 - Chronic obstructive pulmonary disease, unspecified Status: Acute Assessment and Plan: No acute issues. Continue maintenance inhalers. Bronchodilators q.6 hours if needed. (5) Chronic anemia: Code(s): D64.9 - Anemia, unspecified Status: Acute Assessment and Plan: with iron deficiency Isat 10, started on Venofer 400/1000mg Hb 6.9 this morning transfuse 1 unit pRBC monitor h and h (6) Abnormal chest x-ray: Code(s): R93.89 - Abnormal findings on diagnostic imaging of other specified body structures Status: Acute Assessment and Plan: Chest x-ray shows airspace opacity than left lower lung zone which could be atelectasis/scarring or less likely pneumonia. WBC count is elevated thus will treat for possible pneumonia with azithromycin and ceftriaxone. (7) Abnormal urinalysis: Code(s): R82.90 - Unspecified abnormal findings in urine Status: Acute Assessment and Plan: Urine looks contaminated but is positive for bacteria and leukocyte esterase. Continue antibiotics, pending urine culture. (8) GI bleed: Code(s): K92.2 - Gastrointestinal hemorrhage, unspecified Status: Acute Assessment and Plan: Possible GI bleed in the background of Iron deficiency anemia, severe anemia setting in on Anticoagulation FOBT pending Protonix GI consulted Plan DVT prophylaxis on full dose lovenox Subjective Date/time seen: 07/29/23 11:56 Interval history: patient comfortable at bedside, Cr 2.0 Us renal showed multiple stones with hydronephrosis Hb 6.9 this morning with isat of 12, hb downtrended on AC, making GI bleed likely Urology, nephrology and Gi consulted Started on Protonic and IV venofer 400/1000mg MRSA positive Changed Abx to Levaquion and continued Vanc repeat lactic acid, continue IVF Review of Systems Review of Systems: Twelve systems were reviewed and are negative except for as per HPI. Exam Narrative: General: Chronically ill-appearing female in the semi-Car position in bed. Weight: 58.9 kg. BMI: 27.1. HEENT: Normocephalic, atraumatic. PERRL, EOMI. Sclera anicteric. Tacky mucous membranes. Oropharynx not visualized. Neck: Supple. No nuchal rigidity. No lymphadenopathy. Respiratory: Mildly tachypneic. She is speaking in full sentences. Lung sounds are diminished at the right base. Scattered, coarse rhonchi which improved somewhat with cough. Cardiovascular: Tachycardic with normal S1-S2. Gastrointestinal: Abdomen is soft, nontender, and nondistended with positive bowel sounds. Genitourinary: Naranjo catheter draining a small amount of dark yellow urine. Skin: Warm and dry. Generalized pallor. There is skin breakdown and hyperpigmentation of the right heel. Open wound on the buttock without evidence of acute infection. Extremities: No cyanosis, clubbing
--- NOTE | 2023-07-29 12:34 | WPDURCON ---
Assessment and Plan Assessment and plan (1) Acute kidney injury: Code(s): N17.9 - Acute kidney failure, unspecified Status: Acute Assessment and Plan: creatinine is elevated above her baseline level of 1.2 achieved in November after prior stent exchange. She will likely need another stent exchange, but will need to be coordinated with the work up for respiratory issues, GI bleed, and COVID. Keep NPO after MN in case intervention can be done tomorrow. (2) S/P ureteral stent placement: Code(s): Z96.0 - Presence of urogenital implants Status: Acute Assessment and Plan: No exchange since November 2022. Will need exchange and then also definitive stone management. (3) Staghorn kidney stones: Code(s): N20.0 - Calculus of kidney Status: Acute Assessment and Plan: She had a right nephrectomy due to a non-functioning kidney with stone by Dr. Feliberto Martinez at [facility] in 2021. She appears to have not had follow up with our office since that procedure or since the stent placement in November 2022. She will need definitive stone management, either with PCNL or staged ureteroscopy. If the stone is treated, she will likely no longer need the stent. Urology Consult Note HPI Date Seen: 07/29/23 Requesting Physician: Quinton Mejia MD Primary Care Provider: Ana Moore, Consult Narrative Narrative: Yesenia Perez is a 58 year old female currently admitted for hypoxemia, COVID, and RADHA. Renal US showed a solitary left kidney with stone and possible stent. The stent was originally placed 09/21/22 at [place] when she was admitted for sepsis. It was changed in November [address] at [place] [address] Can. The stone has not been treated, she has not seen [facility] or [facility] urology as an outpatient, and the stent has not been changed since November. Review of Systems Constitutional: Constitutional: Reports no additional constitutional complaints PMFSH Past Medical History Medical History Anemia Chronic obstructive pulmonary disease Chronic respiratory failure with hypoxia, on home oxygen therapy Previously documented that the patient is oxygen dependent on 4 L nasal cannula however she denies and is on room air with good SpO2 as of 07/27/2023. 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 History of tubal ligation Family History Family History Mother Family history of multiple sclerosis Hypertension Father Patient's father is Social History Social History Social History: Patient is a ramos of the on license of [facility]. Her guardian is Abe Burnham ([phone]). Code status: Full code. Smoking packs per day: 0.5 Smoking cigarettes per day: 10.0 Years smoked: 1 Smoking pack-years: 0.50 Smoking status: Never smoker Tobacco type: cigarettes Second hand tobacco smoke exposure: No Alcohol intake: never Substance use: never Lack of Transportation: No Lack of Food: Never True Current Housing: Decline to Answer Concerned About Future Housing: Decline to Answer Difficulty Paying Gas/Electric Bills: Decline to Answer Difficulty Paying for Meds: Decline to Answer Currently Unemployed: Decline to Answer Education: De
[2023-07-29] MEDS: SODIUM CHLORIDE 0.9% IV 250 ML 30 ML IV CONT (13:57)
[2023-07-29 14:47] LABS: IFOB Positive Control Positive; Immunochemical Fecal Occult Bl Negative (N)
[2023-07-29] MEDS: IRON SUCROSE COMPLEX 400 MG in SODIUM CHLORIDE 0.9% IV 250 ML 108 MG IVPB (16:51)
[2023-07-29] MEDS: MEGESTROL ACETATE (*CHEMO) ORAL SUSP 40 MG/ML SYR 400 MG PO (18:06)
--- NOTE | 2023-07-29 18:52 | PC.NURSE ---
Clonidine patch found on patient while performing hygiene. Noted on left arm. Patch removed. On patient home medication list but not resumed here in hospital.
[2023-07-29 19:19] LABS: Hematocrit 27.8 % (37.0-47.0); Hemoglobin 8.3 g/dL (12.0-15.0)
[2023-07-29] MEDS: traZODone HCL 50 MG TABLET PO (20:35)
[2023-07-29] MEDS: ACETAMINOPHEN 325 MG TABLET 650 MG PO (20:35)
[2023-07-29] MEDS: CITALOPRAM HYDROBROMIDE 20 MG TABLET PO (20:35)
[2023-07-29] MEDS: PANTOPRAZOLE SODIUM IV 40 MG VIAL IV PUSH (20:36)
[2023-07-30] VITALS (13 sets, daily range): BP systolic 130–140; BP diastolic 81–86; PULSE 49–88; RESP 16–20; TEMP 36.3–36.5; O2SAT 98–100
[2023-07-30] MEDS: SODIUM BICARBONATE 8.4% 150 MEQ in DEXTROSE 5% 1,000 ML 950 ML 100 MEQ IV CONT ×2 (06:23→18:03)
[2023-07-30] MEDS: ENOXAPARIN 60 MG/0.6 ML SYRINGE SUB-Q (09:35)
[2023-07-30] MEDS: PANTOPRAZOLE SODIUM IV 40 MG VIAL IV PUSH ×2 (09:35→21:10)
[2023-07-30] MEDS: METOPROLOL TARTRATE 50 MG TAB PO ×2 (09:53→21:14)
[2023-07-30] MEDS: polyethylene glycoL 3350 17 GM POWD.PACK PO (09:53)
[2023-07-30] MEDS: LACTULOSE 20 GM/30 ML UDC PO ×2 (09:53→18:03)
[2023-07-30] MEDS: MEGESTROL ACETATE (*CHEMO) ORAL SUSP 40 MG/ML SYR 400 MG PO ×2 (09:53→18:03)
[2023-07-30] MEDS: POTASSIUM CHLORIDE 20 MEQ PACKET (FOR LIQUID) PO (09:53)
[2023-07-30] MEDS: CHOLECALCIFEROL 1,000 UNITS TABLET 1000 UNITS PO (09:54)
[2023-07-30] MEDS: FAMOTIDINE 20 MG TABLET PO ×2 (09:54→18:03)
[2023-07-30] MEDS: MULTIVITAMINS /C LUTEIN (CENTRUM SILVER) TABLET *BKC 1 TAB PO (09:54)
[2023-07-30] MEDS: PREGABALIN (*CRX) 75 MG CAPSULE PO ×2 (09:54→18:03)
[2023-07-30 09:57] LABS: Basophils Percent Auto 0.3 % (0.2-1.2); Immature Granulocyte Absolute 0.02 K/mm3 (0.00-0.031); Immature Granulocyte Percent A 0.3 % (0-0.5); Lymphocytes Absolute Auto 1.94 K/mm3 (0.9-3.2); Lymphocytes Percent Auto 24.6 % (18.3-44.2); Mean Corpuscular HGB Conc 29.6 g/dl (32-36); Mean Corpuscular Hemoglobin 23.9 pg (26-34); Mean Corpuscular Volume 80.6 fl (80-100); Mean Platelet Volume 10.8 fl (7.4-10.4); Monocytes Absolute Auto 0.4 K/mm3 (0.1-0.6); Monocytes Percent Auto 5.1 % (2.6-8.5); Neutrophils Absolute Auto 5.5 K/mm3 (1.3-6.7); Neutrophils Percent Auto 69.7 % (45.5-73.1); Platelet Count Result 344 k/mm3 (150-375); Red Blood Count 3.35 M/mm3 (4.2-5.4); Red Cell Distribution Width 19.7 % (11.5-14.5); White Blood Count 7.9 K/mm3 (4.5-10.0)
[2023-07-30 10:05] LABS: Lactic Acid Reflex 1.2 mmol/L (0.7-2.0)
[2023-07-30 10:06] LABS: Alanine Aminotransferase 12 U/L (6-35); Alkaline Phosphatase 111 U/L (38-126); Anion Gap 8 mmol/L (8-16); Aspartate Amino Transferase 13 U/L (14-36); Bilirubin,Total 0.4 mg/dL (0.2-1.3); Blood Urea Nitrogen 33 mg/dL (7-17); Calcium 7.4 mg/dL (8.4-10.2); Carbon Dioxide 28 mmol/L (22-30); Chloride 105 mmol/L (98-107); Estimated Glomerular Filt Rate 31; Glucose 96 mg/dL (65-110); Potassium 2.9 mmol/L (3.4-5.0); Sodium 141 mmol/L (137-145)
[2023-07-30 10:22] LABS: Anisocytosis 2+ (NORMAL); Hypochromasia 2+ (NORMAL); Platelet Estimate Adequate (Adequate); Schistocytes None Seen (NORMAL)
[2023-07-30 10:43] LABS: Vancomycin Trough 20.2 ug/mL (10.0-20.0)
--- NOTE | 2023-07-30 12:49 | PCNFU ---
Nutrition Follow-Up Complete: Moderate protein calorie malnutrition related to inadequate energy intake with increased nutrient needs as evidenced by significant weight loss of -18% x 6 months, increased needs for multiple areas of wound healing, insufficient po intake Increased nutrient needs related to altered skin integrity as evidenced by noted pressure injuries Goal:PO intake 75% or greater for meals and supplements - Progressing to goal. Continue with same goal Pt current nutrition is Heart healthy diet. Ensure Compact BID for additional 220 kcal and 9 g protein each, Maged BID for additional 90 kcal, 2.5 g protein, glutamine and arginine to support wound healing. Nutrition recommendation: Continue with current nutrition care plan and orders. Agree with orders Last recorded weight is 67.1 kg. Bowel Motility: Last BM +1 07/29/23 Labs Reviewed: Hgb 8.0, Hct 27.0, K+ 2.9, GFR 31, BUN 33, Cre 1.7 Meds Noted: Peppcid, protonic, lactulose, megace Skin: Stage III r heel, Stage 3 BL ishciums Additional Notes: S/p debridement. Intakes are fair to good. Continue with current orders Monitor diet order, intake, wt, labs, skin. Follow up in 3 days.
[2023-07-30] MEDS: levoFLOXacin 750 MG/D5W 150 ML 750 MG/150 ML BAG 100 MG IVPB (13:10)
--- NOTE | 2023-07-30 14:24 | WPDGICN ---
Assessment and Plan Assessment and plan (1) Acute on chronic anemia: Code(s): D64.9 - Anemia, unspecified Status: Acute Assessment and Plan: this could be multifactorial (chronic anemia) but no signs of overt gib in fact occult blood in stool is negative, no need for urgent scopes in setting of covid with pneumonia she is already on anticoagulation to treat new diagnosis of PE continue with treatment and monitor for signs of bleeding she couldn't tell me if ever had colonoscopy, this can be arranged at some point as outpatient (2) Pulmonary embolism: Code(s): I26.99 - Other pulmonary embolism without acute cor pulmonale Status: Acute Assessment and Plan: on lovenox (3) Chronic respiratory failure with hypoxia, on home oxygen therapy: Code(s): J96.11 - Chronic respiratory failure with hypoxia; Z99.81 - Dependence on supplemental oxygen Status: Acute Assessment and Plan: antibiotics and oxygen (4) COVID-19: Code(s): U07.1 - COVID-19 Status: Acute Assessment and Plan: isolation complicated with pneumonia, PE and renal failure (5) Pneumonia: Code(s): J18.9 - Pneumonia, unspecified organism Status: Acute (6) Sepsis: Code(s): A41.9 - Sepsis, unspecified organism Status: Acute (7) Acute kidney injury: Code(s): N17.9 - Acute kidney failure, unspecified Status: Acute GI Consult Note Consult date/time: 07/30/23 14:24 Reason for consult: anemia HPI: Yesenia Perez is a 58 year old female with multiple sclerosis with generalized weakness, dementia, hypertension, chronic anemia, depression, pulmonary embolism in 2015, and history of MRSA presented to the emergency department via EMS from [facility] for shortness of breath after recent COVID diagnosis. She is not best historian and part of history also obtained from records. She developed cough and chest congestion and fever up to 104? F, found to be hypoxemic. Labs showed WBC count of 16.1, hemoglobin 9.2 (trended down to 6.9), D-dimer 2.64, BUN 43, creatinine 2.10, lactic acid 0.8, CRP 20.8. She was confirmed to be COVID positive. Chest x-ray showed airspace opacities in lower lung zones consistent with atelectasis/scarring or less likely pneumonia and chronic elevation of the right hemidiaphragm. V/Q scan showed high probability for pulmonary embolism and started on lovenox, patient denies any signs of bleeding- she says that had yellow stool but never had colonoscopy. Occult blood in stool was negative. Denies abdominal pain or nausea. Review of Systems Constitutional: Constitutional: Reports chills Comments: fever Eyes: Eyes: Denies blurry vision ENT: Reports Normal hearing present Cardiovascular: Cardiovascular: Denies leg edema Respiratory: Respiratory: Reports chest congestion and Reports cough Gastrointestinal: Gastrointestinal: Denies nausea Musculoskeletal: Musculoskeletal: Denies neck pain Integumentary/Breasts: Skin/Breast: Denies rash Neurologic: Comments: generalized weakness with MS Psychiatric: Psychiatric: Reports anxiety PMFSH Past Medical History Medical History (Updated 07/30/23 @ 14:30 by Jesús Oliver MD) Acute on chronic anemia Anemia Chronic obstructive pulmonary disease Chronic respiratory failure with hypoxia, on home oxygen therapy Previously documented that the patient is oxygen dependent on 4 L nasal cannula however she denies and is on room air with good SpO2 as of 07/27/2023. Dementia Depression Essential (primary) hypertension Functional quadriplegia secondary to MS Generalized anxiety disorder Hyperlipidemia MRSA infection Multiple sclerosis Pulmonary embolism (2015) Schizophrenia Ureteral stent present Urinary tract infection due to extended-spectrum beta lactamase (ESBL) producing Escherichia coli Xanthogranulomatous pyelonephritis Surgical History Surgical H
[2023-07-30] MEDS: VANCOMYCIN 1,000 MG/NS 250 ML 1,000 MG/250 ML BAG 250 MG IVPB (18:03)
[2023-07-30] MEDS: CITALOPRAM HYDROBROMIDE 20 MG TABLET PO (21:11)
[2023-07-30] MEDS: traZODone HCL 50 MG TABLET PO (21:11)
--- NOTE | 2023-07-30 21:54 | PM.IMPN ---
Progress Note: A&P Assessment and Plan (1) Pulmonary embolism: Code(s): I26.99 - Other pulmonary embolism without acute cor pulmonale Status: Acute (2) COVID-19: Code(s): U07.1 - COVID-19 Status: Acute (3) Acute kidney injury: Code(s): N17.9 - Acute kidney failure, unspecified Status: Acute (4) Chronic respiratory failure with hypoxia, on home oxygen therapy: Code(s): J96.11 - Chronic respiratory failure with hypoxia; Z99.81 - Dependence on supplemental oxygen Status: Acute (5) Chronic obstructive pulmonary disease: Code(s): J44.9 - Chronic obstructive pulmonary disease, unspecified Status: Acute (6) Acute on chronic anemia: Code(s): D64.9 - Anemia, unspecified Status: Acute (7) Abnormal chest x-ray: Code(s): R93.89 - Abnormal findings on diagnostic imaging of other specified body structures Status: Acute (8) Abnormal urinalysis: Code(s): R82.90 - Unspecified abnormal findings in urine Status: Acute (9) GI bleed: Code(s): K92.2 - Gastrointestinal hemorrhage, unspecified Status: Acute Plan (1) Pulmonary embolism: ?Code(s): I26.99 - Other pulmonary embolism without acute cor pulmonale ?Status:?Acute ?Assessment and Plan: V/Q scan shows high probability for pulmonary embolism; lower extremity venous Doppler ultrasound unable to to rule out DVT. Continue full dose Lovenox May need IVC filter is no source of bleed not traced. (2) COVID-19: ?Code(s): U07.1 - COVID-19 ?Status:?Acute ?Assessment and Plan: Patient is at high risk for complication though she cannot receive remdesivir at this time given her acute kidney injury. continue Dexamethasone (3) Acute kidney injury: ?Code(s): N17.9 - Acute kidney failure, unspecified ?Status:?Acute ?Assessment and Plan: Patient has an acute on chronic kidney injury. US renal showed left kidney stones with hydronephrosis Cr 2 from 2.1 Urology and nephrology consulte d continue IVF pending urology and nephrology eval (4) Chronic obstructive pulmonary disease: ?Code(s): J44.9 - Chronic obstructive pulmonary disease, unspecified ?Status:?Acute ?Assessment and Plan: No acute issues.? Continue maintenance inhalers. Bronchodilators q.6 hours if needed. (5) Chronic anemia: ?Code(s): D64.9 - Anemia, unspecified ?Status:?Acute ?Assessment and Plan: with iron deficiency Isat 10, started on Venofer 400/1000mg Hb 6.9 this morning transfuse 1 unit pRBC monitor h and h (6) Abnormal chest x-ray: ?Code(s): R93.89 - Abnormal findings on diagnostic imaging of other specified body structures ?Status:?Acute ?Assessment and Plan: Chest x-ray shows airspace opacity than left lower lung zone which could be atelectasis/scarring or less likely pneumonia. WBC count is elevated thus will treat for possible pneumonia with azithromycin and ceftriaxone. (7) Abnormal urinalysis: ?Code(s): R82.90 - Unspecified abnormal findings in urine ?Status:?Acute ?Assessment and Plan: Urine looks contaminated but is positive for bacteria and leukocyte esterase. Continue antibiotics, pending urine culture. (8) GI bleed: ?Code(s): K92.2 - Gastrointestinal hemorrhage, unspecified ?Status:?Acute ?Assessment and Plan: Possible GI bleed in the background of Iron deficiency anemia, severe anemia setting in on Anticoagulation FOBT pending Protonix GI consulted 07/30: abd distention but having bm's. f/u XR. she is having bm's Plan DVT prophylaxis on full dose lovenox Subjective Date/time seen: 07/30/23 21:54 Interval history: reports abd gas. but denies any other complaints. Review of Systems Review of Systems: no issues Exam Narrative: General:?Chronically ill-appearing female in the semi-Car position in bed. Weight: 58.9 kg.? BMI: 27.1. HEENT:??Norm
[2023-07-31] VITALS (12 sets, daily range): BP systolic 136–144; BP diastolic 55–88; PULSE 56–82; RESP 16–20; TEMP 35.7–37.1; O2SAT 96–100
[2023-07-31] MEDS: SODIUM BICARBONATE 8.4% 150 MEQ in DEXTROSE 5% 1,000 ML 950 ML 100 MEQ IV CONT ×2 (05:03→16:52)
[2023-07-31] MEDS: METOPROLOL TARTRATE 50 MG TAB PO ×2 (10:20→19:38)
[2023-07-31] MEDS: MEGESTROL ACETATE (*CHEMO) ORAL SUSP 40 MG/ML SYR 400 MG PO ×2 (10:20→16:51)
[2023-07-31] MEDS: PANTOPRAZOLE SODIUM IV 40 MG VIAL IV PUSH ×2 (10:20→22:30)
[2023-07-31] MEDS: ENOXAPARIN 60 MG/0.6 ML SYRINGE SUB-Q (10:20)
[2023-07-31] MEDS: MULTIVITAMINS /C LUTEIN (CENTRUM SILVER) TABLET *BKC 1 TAB PO (10:20)
[2023-07-31] MEDS: CHOLECALCIFEROL 1,000 UNITS TABLET 1000 UNITS PO (10:20)
[2023-07-31] MEDS: POTASSIUM CHLORIDE 20 MEQ PACKET (FOR LIQUID) PO (10:20)
[2023-07-31] MEDS: polyethylene glycoL 3350 17 GM POWD.PACK PO (10:21)
[2023-07-31] MEDS: PREGABALIN (*CRX) 75 MG CAPSULE PO ×2 (10:21→16:52)
[2023-07-31] MEDS: FAMOTIDINE 20 MG TABLET PO ×2 (10:21→16:51)
[2023-07-31] MEDS: LACTULOSE 20 GM/30 ML UDC PO ×2 (10:42→16:51)
--- NOTE | 2023-07-31 16:33 | WPDGIPROGNO ---
Progress Note: A&P Assessment and Plan (1) Acute on chronic anemia: Code(s): D64.9 - Anemia, unspecified Status: Acute Assessment and Plan: multifactorial and FOBT was negative, no report of gib no need of scope she is on anticoagulation because diagnosis of pe (2) Pulmonary embolism: Code(s): I26.99 - Other pulmonary embolism without acute cor pulmonale Status: Acute Assessment and Plan: on treatment (3) Chronic respiratory failure with hypoxia, on home oxygen therapy: Code(s): J96.11 - Chronic respiratory failure with hypoxia; Z99.81 - Dependence on supplemental oxygen Status: Acute (4) Pneumonia: Code(s): J18.9 - Pneumonia, unspecified organism Status: Acute (5) COVID-19: Code(s): U07.1 - COVID-19 Status: Acute Assessment and Plan: recent covid and treated also for pneumonia (6) Multiple sclerosis: Code(s): G35 - Multiple sclerosis Status: Acute Subjective Date/time seen: 07/31/23 16:33 Interval history: no signs of gib responded to blood tranfusion she is frail Review of Systems Review of Systems: All systems reviewed & are unremarkable except as noted in HPI and below Exam Const: Other: chronically ill appearing HENMT: Face/Nose/Sinus: Normal nares present Eyes: Sclera: sclerae normal Neck: Neck: supple Resp: Auscultation: rhonchi Cardio: Rate: regular rate GI: GI Palp: Yes Soft to palpation, No Tenderness to palpation present (GI) and No Guarding due to palpation present (GI) Auscultation: normal bowel sounds Skin: General skin exam: no rashes or lesions noted Neuro: Speech: normal speech Other: legs contracted (chronic) Extrem: General: no edema Psych: Affect: Anxious affect present Objective Data Vital Signs Vital Signs: Vital Signs - 24 hr 07/30/23 21:14 07/30/23 21:43 07/30/23 21:45 Temperature 97.3 F L Pulse Rate 71 88 Respiratory Rate 20 Blood Pressure 130/81 Pulse Oximetry 98 98 Oxygen Delivery Nasal Cannula Oxygen Flow Rate 3 07/30/23 20:00 07/31/23 00:00 07/31/23 04:00 Temperature Pulse Rate 85 56 L 73 Respiratory Rate Blood Pressure Pulse Oximetry Oxygen Delivery Oxygen Flow Rate 07/31/23 05:07 07/31/23 10:20 07/31/23 14:37 Temperature 98.2 F 96.3 F L Pulse Rate 72 82 76 Respiratory Rate 20 16 Blood Pressure 142/55 H 136/88 Pulse Oximetry 98 96 Oxygen Delivery Oxygen Flow Rate 07/31/23 08:00 07/31/23 08:00 07/31/23 12:00 Temperature Pulse Rate 62 75 Respiratory Rate Blood Pressure Pulse Oximetry 96 Oxygen Delivery Nasal Cannula Oxygen Flow Rate 3 07/31/23 16:00 Temperature Pulse Rate 65 Respiratory Rate Blood Pressure Pulse Oximetry Oxygen Delivery Oxygen Flow Rate Intake/Output Intake/Output: Intake & Output 07/28/23 07/29/23 07/30/23 07/31/23 23:59 23:59 23:59 23:59 Intake Total 1490 2720 2660 1560 Output Total 1000 1300 1750 1100 Balance 490 1420 910 460 Meds/Results Medications: Active Medications Generic Name Dose Route Start Last Admin Trade Name Freq PRN Reason Stop Dose Admin Acetaminophen 650 mg 07/27/23 14:28 07/29/23 20:35 Acetaminophen 325 Mg Tablet PO 650 mg Q4H PRN Administration Pain (Scale Score 1-3) Hydrocodone Bitart/Acetaminophen 1 tab 07/27/23 14:25 Hydrocodone/Acetaminophen (*Crx) 5-325 Mg Tablet PO Q6H PRN Pain Rated 4-6 Citalopram Hydrobromide 20 mg 07/27/23 21:00 07/30/23 21:11 Citalopram Hydrobromide 20 Mg Tablet PO 20 mg HS MERLYN Administration Dexamethasone Sodium Phosphate 6 mg 07/28/23 08:00 07/31/23 10:19 Dexamethasone Sod Phos Inj 10 Mg/Ml 1 Ml Vial IV PUSH 08/06/23 08:01 6 mg Q24H MERLYN Administration Enoxaparin Sodium 60 mg 07/30/23 09:00 07/31/23 10:20 Enoxaparin 60 Mg/0.6 Ml Syringe SUB-Q 60 mg DAILY MERLYN Administration Famotidine
[2023-07-31] MEDS: traZODone HCL 50 MG TABLET PO (19:38)
[2023-07-31] MEDS: CITALOPRAM HYDROBROMIDE 20 MG TABLET PO (19:38)
--- NOTE | 2023-07-31 22:01 | PM.IMPN ---
Progress Note: A&P Assessment and Plan (1) Acute on chronic anemia: Code(s): D64.9 - Anemia, unspecified Status: Acute (2) GI bleed: Code(s): K92.2 - Gastrointestinal hemorrhage, unspecified Status: Acute (3) Abnormal urinalysis: Code(s): R82.90 - Unspecified abnormal findings in urine Status: Acute (4) Abnormal chest x-ray: Code(s): R93.89 - Abnormal findings on diagnostic imaging of other specified body structures Status: Acute (5) Pulmonary embolism: Code(s): I26.99 - Other pulmonary embolism without acute cor pulmonale Status: Acute (6) Acute kidney injury: Code(s): N17.9 - Acute kidney failure, unspecified Status: Acute (7) Elevated d-dimer: Code(s): R79.89 - Other specified abnormal findings of blood chemistry Status: Acute (8) Chronic anemia: Code(s): D64.9 - Anemia, unspecified Status: Acute (9) Chronic respiratory failure with hypoxia, on home oxygen therapy: Code(s): J96.11 - Chronic respiratory failure with hypoxia; Z99.81 - Dependence on supplemental oxygen Status: Acute (10) Chronic obstructive pulmonary disease: Code(s): J44.9 - Chronic obstructive pulmonary disease, unspecified Status: Acute (11) Pneumonia: Code(s): J18.9 - Pneumonia, unspecified organism Status: Acute Plan (1) Pulmonary embolism: ?Code(s): I26.99 - Other pulmonary embolism without acute cor pulmonale ?Status:?Acute ?Assessment and Plan: V/Q scan shows high probability for pulmonary embolism; lower extremity venous Doppler ultrasound unable to to rule out DVT. Continue full dose Lovenox May need IVC filter is no source of bleed not traced. 07/31: no definite source. only abnormal v/q scan which can be abnormal in covid pna. Needs a CTPE scan when cr is normal ct ivf with ns at 75 ml/hr switched to po eliquis 5 or 2.5 bid depending on pharmacy stopped lovenox (2) COVID-19: ?Code(s): U07.1 - COVID-19 ?Status:?Acute ?Assessment and Plan: Patient is at high risk for complication though she cannot receive remdesivir at this time given her acute kidney injury. continue Dexamethasone (3) Acute kidney injury: ?Code(s): N17.9 - Acute kidney failure, unspecified ?Status:?Acute ?Assessment and Plan: Patient has an acute on chronic kidney injury. US renal showed left kidney stones with hydronephrosis Cr 2 from 2.1 Urology and nephrology consulte d continue IVF pending urology and nephrology eval 07/31: cr slightly better now 1.7. stopped bicarb drip, she has metabolic alkalosis now. possible urology procedure tomorrow. see their note creatinine is elevated above her baseline level of 1.2 achieved in November after prior stent exchange. She will likely need another stent exchange, but will need to be coordinated with the work up for respiratory issues, GI bleed, and COVID. Keep NPO after MN in case intervention can be done tomorrow. No exchange since November 2022. Will need exchange and then also definitive stone management. 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 Feliberto Martinez at [facility] in 2021. She appears to have not had follow up with our office since that procedure or since the stent placement in November 2022. She will need definitive stone management, either with PCNL or staged ureteroscopy. If the stone is treated, she will likely no longer need the stent. (4) Chronic obstructive pulmonary disease: ?Code(s): J44.9 - Chronic obstructive pulmonary disease, unspecified ?Status:?Acute ?Assessment and Plan: No acute issues.? Continue maintenance inhalers. Bronchodilators q.6 hours if needed. (5) Chronic anemia: ?Code(s): D64.9 - Anemia, unspecified ?Status:?Acute ?Assessment and Plan: with iron deficiency Isat 10, started on Venofer 400/1000mg Hb 6.9 this morning transfuse 1 unit pRBC jairo
[2023-07-31] MEDS: POTASSIUM CHLORIDE 20 MEQ ER TABLET 60 MEQ PO (22:19)
[2023-07-31] MEDS: SODIUM CHLORIDE 0.9% IV 1,000 ML 75 ML IV CONT (22:19)
[2023-07-31] MEDS: CALCIUM GLUC 2,000 MG/NS 100ML 2,000 MG/100 ML BAG 100 MG IVPB (22:19)
[2023-07-31] MEDS: APIXABAN 5 MG TABLET PO (22:45)
--- NOTE | 2023-07-31 22:45 | PC.NURSE ---
Per pharmacist Aspen, 5mg eliquis Q12hr is appropriate dose for patient.
[2023-08-01] VITALS (12 sets, daily range): BP systolic 142–159; BP diastolic 87–94; PULSE 60–76; RESP 16–22; TEMP 36.2–37.1; O2SAT 95–100
[2023-08-01 05:44] LABS: Basophils Percent Auto 0.1 % (0.2-1.2); Hematocrit 28.4 % (37.0-47.0); Hemoglobin 8.2 g/dL (12.0-15.0); Immature Granulocyte Absolute 0.03 K/mm3 (0.00-0.031); Immature Granulocyte Percent A 0.4 % (0-0.5); Lymphocytes Absolute Auto 2.32 K/mm3 (0.9-3.2); Lymphocytes Percent Auto 28.2 % (18.3-44.2); Mean Corpuscular HGB Conc 28.9 g/dl (32-36); Mean Corpuscular Hemoglobin 23.6 pg (26-34); Mean Corpuscular Volume 81.8 fl (80-100); Mean Platelet Volume 10.5 fl (7.4-10.4); Monocytes Absolute Auto 0.5 K/mm3 (0.1-0.6); Neutrophils Absolute Auto 5.4 K/mm3 (1.3-6.7); Neutrophils Percent Auto 65.3 % (45.5-73.1); Platelet Count Result 291 k/mm3 (150-375); Red Blood Count 3.47 M/mm3 (4.2-5.4); Red Cell Distribution Width 18.8 % (11.5-14.5); White Blood Count 8.2 K/mm3 (4.5-10.0)
[2023-08-01 05:55] LABS: Anion Gap 2 mmol/L (8-16); Blood Urea Nitrogen 25 mg/dL (7-17); Calcium 7.8 mg/dL (8.4-10.2); Carbon Dioxide 36 mmol/L (22-30); Chloride 102 mmol/L (98-107); Estimated Glomerular Filt Rate 36; Glucose 97 mg/dL (65-110); Potassium 3.7 mmol/L (3.4-5.0); Sodium 140 mmol/L (137-145)
[2023-08-01 06:59] LABS: Hypochromasia 2+ (NORMAL); Platelet Estimate Adequate (Adequate)
[2023-08-01 07:00] LABS: Anisocytosis 2+ (NORMAL); Schistocytes 1+ (NORMAL)
--- NOTE | 2023-08-01 09:51 | PM.IMPN ---
Progress Note: A&P Assessment and Plan (1) Acute on chronic anemia: Code(s): D64.9 - Anemia, unspecified Status: Acute (2) GI bleed: Code(s): K92.2 - Gastrointestinal hemorrhage, unspecified Status: Acute (3) Abnormal urinalysis: Code(s): R82.90 - Unspecified abnormal findings in urine Status: Acute (4) Abnormal chest x-ray: Code(s): R93.89 - Abnormal findings on diagnostic imaging of other specified body structures Status: Acute (5) Pulmonary embolism: Code(s): I26.99 - Other pulmonary embolism without acute cor pulmonale Status: Acute (6) Acute kidney injury: Code(s): N17.9 - Acute kidney failure, unspecified Status: Acute (7) Elevated d-dimer: Code(s): R79.89 - Other specified abnormal findings of blood chemistry Status: Acute (8) Chronic anemia: Code(s): D64.9 - Anemia, unspecified Status: Acute (9) Chronic respiratory failure with hypoxia, on home oxygen therapy: Code(s): J96.11 - Chronic respiratory failure with hypoxia; Z99.81 - Dependence on supplemental oxygen Status: Acute (10) Chronic obstructive pulmonary disease: Code(s): J44.9 - Chronic obstructive pulmonary disease, unspecified Status: Acute (11) Pneumonia: Code(s): J18.9 - Pneumonia, unspecified organism Status: Acute (12) Sepsis: Code(s): A41.9 - Sepsis, unspecified organism Status: Acute (13) COVID-19: Code(s): U07.1 - COVID-19 Status: Acute (14) Anemia: Code(s): D64.9 - Anemia, unspecified Status: Acute (15) Leukocytosis: Code(s): D72.829 - Elevated white blood cell count, unspecified Status: Acute Plan (1) Pulmonary embolism: ?Code(s): I26.99 - Other pulmonary embolism without acute cor pulmonale ?Status:?Acute ?Assessment and Plan: V/Q scan shows high probability for pulmonary embolism; lower extremity venous Doppler ultrasound unable to to rule out DVT. Continue full dose Lovenox May need IVC filter is no source of bleed not traced. 07/31: no definite source. only abnormal v/q scan which can be abnormal in covid pna. Needs a CTPE scan when cr is normal ct ivf with ns at 75 ml/hr switched to po eliquis 5 or 2.5 bid depending on pharmacy stopped lovenox 08/01: Now that her Cr is 1.5 with IVF, needs CTPE to check to see if she really has a PE. V/Q scan can be abnormal with pneumonia. Ct eliquis for now. (2) COVID-19: ?Code(s): U07.1 - COVID-19 ?Status:?Acute ?Assessment and Plan: Patient is at high risk for complication though she cannot receive remdesivir at this time given her acute kidney injury. continue Dexamethasone 08/01: No decreased dose of remdesivir for RADHA. She needs to be on remdesivir now. Start dose today for 5 days as long as pt is in the hospital. Scheduled bid mucinex and qid albuterol mdi. Already on dexamethasone iv. (3) Acute kidney injury: ?Code(s): N17.9 - Acute kidney failure, unspecified ?Status:?Acute ?Assessment and Plan: Patient has an acute on chronic kidney injury. US renal showed left kidney stones with hydronephrosis Cr 2 from 2.1 Urology and nephrology consulte d continue IVF pending urology and nephrology eval 07/31: cr slightly better now 1.7. stopped bicarb drip, she has metabolic alkalosis now. possible urology procedure tomorrow. see their note creatinine is elevated above her baseline level of 1.2 achieved in November after prior stent exchange. She will likely need another stent exchange, but will need to be coordinated with the work up for respiratory issues, GI bleed, and COVID. Keep NPO after MN in case intervention can be done tomorrow. No exchange since November 2022. Will need exchange and then also definitive stone management. 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 Feliberto Martinez at [facility] in 2021. She appears to have not had follow up with our
[2023-08-01] MEDS: polyethylene glycoL 3350 17 GM POWD.PACK PO (10:13)
[2023-08-01] MEDS: POTASSIUM CHLORIDE 20 MEQ PACKET (FOR LIQUID) PO (10:13)
[2023-08-01] MEDS: MEGESTROL ACETATE (*CHEMO) ORAL SUSP 40 MG/ML SYR 400 MG PO ×2 (10:13→17:24)
[2023-08-01] MEDS: LACTULOSE 20 GM/30 ML UDC PO ×2 (10:13→17:24)
[2023-08-01] MEDS: PREGABALIN (*CRX) 75 MG CAPSULE PO ×2 (10:14→17:24)
[2023-08-01] MEDS: FAMOTIDINE 20 MG TABLET PO ×2 (10:14→17:24)
[2023-08-01] MEDS: MULTIVITAMINS /C LUTEIN (CENTRUM SILVER) TABLET *BKC 1 TAB PO (10:14)
[2023-08-01] MEDS: METOPROLOL TARTRATE 50 MG TAB PO ×2 (10:14→20:37)
[2023-08-01] MEDS: CHOLECALCIFEROL 1,000 UNITS TABLET 1000 UNITS PO (10:14)
[2023-08-01] MEDS: PANTOPRAZOLE SODIUM IV 40 MG VIAL IV PUSH ×2 (10:17→20:36)
[2023-08-01] MEDS: CALCIUM GLUC 2,000 MG/NS 100ML 2,000 MG/100 ML BAG 100 MG IVPB (10:20)
[2023-08-01] MEDS: APIXABAN 5 MG TABLET PO ×2 (10:20→20:36)
[2023-08-01] MEDS: guaiFENesin 12 HR 600 MG TABCR PO ×2 (10:32→20:36)
[2023-08-01] MEDS: REMDESIVIR 200 MG/NS 250 ML 200 MG/250 ML BAG 250 MG IVPB (11:42)
[2023-08-01] MEDS: DEXTROSE 5%/0.45% SOD CHL 1,000 ML 75 ML IV CONT (12:43)
[2023-08-01] MEDS: levoFLOXacin 750 MG/D5W 150 ML 750 MG/150 ML BAG 100 MG IVPB (12:44)
[2023-08-01 14:23] LABS: Mycoplasma IgM Antibody Titer 198 U/mL (<770)
--- NOTE | 2023-08-01 16:46 | PCSTNOTE ---
Please refer to the Bedside Swallow Evaluation in the EMR. Please note, silent aspiration cannot be ruled out at bedside.
[2023-08-01] MEDS: ALBUTEROL SULFATE (*SP) AEROSOL 1 PUFF 2 PUFF INHALATION (20:14)
[2023-08-01] MEDS: CITALOPRAM HYDROBROMIDE 20 MG TABLET PO (20:36)
[2023-08-01] MEDS: traZODone HCL 50 MG TABLET PO (20:36)
[2023-08-02] VITALS (16 sets, daily range): BP systolic 136–163; BP diastolic 89–97; PULSE 57–86; RESP 13–20; TEMP 36.4–36.8; O2SAT 93–100
[2023-08-02] MEDS: ALBUTEROL SULFATE (*SP) AEROSOL 1 PUFF 2 PUFF INHALATION (03:48)
[2023-08-02 06:04] LABS: Legionella pneumophila Ag Ur Not Detected (Not Detected)
--- NOTE | 2023-08-02 06:26 | WPDHPUPDATE1 ---
History and Physical Update Update Date/Time: 08/02/23 06:26 History and Physical has been reviewed, including an updated exam of the patient. There are NO changes in the patient's condition. Risks, benefits, and alternatives have been discussed and questions answered. Patient agrees to proceed with procedure.
[2023-08-02] MEDS: FAMOTIDINE 20 MG TABLET PO ×2 (09:35→16:24)
[2023-08-02] MEDS: CHOLECALCIFEROL 1,000 UNITS TABLET 1000 UNITS PO (09:35)
[2023-08-02] MEDS: MULTIVITAMINS /C LUTEIN (CENTRUM SILVER) TABLET *BKC 1 TAB PO (09:35)
[2023-08-02] MEDS: METOPROLOL TARTRATE 50 MG TAB PO ×2 (09:36→20:58)
[2023-08-02] MEDS: MEGESTROL ACETATE (*CHEMO) ORAL SUSP 40 MG/ML SYR 400 MG PO ×2 (09:38→16:24)
[2023-08-02] MEDS: POTASSIUM CHLORIDE 20 MEQ PACKET (FOR LIQUID) PO (09:38)
[2023-08-02] MEDS: LACTULOSE 20 GM/30 ML UDC PO ×2 (09:38→16:24)
[2023-08-02] MEDS: APIXABAN 5 MG TABLET PO ×2 (09:38→20:56)
[2023-08-02] MEDS: polyethylene glycoL 3350 17 GM POWD.PACK PO (09:38)
[2023-08-02] MEDS: PANTOPRAZOLE SODIUM IV 40 MG VIAL IV PUSH ×2 (09:38→20:56)
[2023-08-02] MEDS: guaiFENesin 12 HR 600 MG TABCR PO ×2 (09:38→20:56)
[2023-08-02] MEDS: PREGABALIN (*CRX) 75 MG CAPSULE PO ×2 (09:39→16:24)
[2023-08-02] MEDS: REMDESIVIR 100 MG/NS 250 ML 100 MG/250 ML BAG 250 MG IVPB (10:44)
--- NOTE | 2023-08-02 11:23 | PCNFU ---
Nutrition Follow-Up Complete: Moderate protein calorie malnutrition related to inadequate energy intake with increased nutrient needs as evidenced by significant weight loss of -18% x 6 months, increased needs for multiple areas of wound healing, insufficient po intake goal: Increased nutrient needs related to altered skin integrity as evidenced by noted pressure injuries PO intake 75% or greater for meals and supplements Patient is progressing towards goal. We will continue current goal. Pt current nutrition: NPO. Nutrition recommendation: soft and bite sized, level 6. Last recorded weight is 68.6 kg. Bowel Motility:+Bm reported 08/02 Labs Reviewed:Cr 1.5,GFR 36, BUN 25, Hct 28.4,Hgb 8.2 Meds Noted:Pepcid, Megace, Protonix, Lactulose, Lopressor Skin: Stage III r heel, Stage 3 BL ishciums Additional Notes: Patient is on COVID precautions. NPO for cysto with stent this afternoon. Patient is eating 60-100% of meals. Diet supplements remain on trays of Maged BID and Ensure compact BID for wound healing. Agree with diet orders. Monitor diet order, intake, wt, labs, skin. Follow up in 5 days.
--- NOTE | 2023-08-02 13:09 | PM.IMPN ---
Progress Note: A&P Assessment and Plan (1) Acute on chronic anemia: Code(s): D64.9 - Anemia, unspecified Status: Acute (2) GI bleed: Code(s): K92.2 - Gastrointestinal hemorrhage, unspecified Status: Acute (3) Abnormal urinalysis: Code(s): R82.90 - Unspecified abnormal findings in urine Status: Acute (4) Abnormal chest x-ray: Code(s): R93.89 - Abnormal findings on diagnostic imaging of other specified body structures Status: Acute (5) Pulmonary embolism: Code(s): I26.99 - Other pulmonary embolism without acute cor pulmonale Status: Acute (6) Acute kidney injury: Code(s): N17.9 - Acute kidney failure, unspecified Status: Acute (7) Elevated d-dimer: Code(s): R79.89 - Other specified abnormal findings of blood chemistry Status: Acute (8) Chronic anemia: Code(s): D64.9 - Anemia, unspecified Status: Acute (9) Chronic respiratory failure with hypoxia, on home oxygen therapy: Code(s): J96.11 - Chronic respiratory failure with hypoxia; Z99.81 - Dependence on supplemental oxygen Status: Acute (10) Chronic obstructive pulmonary disease: Code(s): J44.9 - Chronic obstructive pulmonary disease, unspecified Status: Acute Plan (1) Pulmonary embolism: ?Code(s): I26.99 - Other pulmonary embolism without acute cor pulmonale ?Status:?Acute ?Assessment and Plan: V/Q scan shows high probability for pulmonary embolism; lower extremity venous Doppler ultrasound unable to to rule out DVT. Continue full dose Lovenox May need IVC filter is no source of bleed not traced. 07/31: no definite source. only abnormal v/q scan which can be abnormal in covid pna. Needs a CTPE scan when cr is normal ct ivf with ns at 75 ml/hr switched to po eliquis 5 or 2.5 bid depending on pharmacy stopped lovenox 08/01: Now that her Cr is 1.5 with IVF, needs CTPE to check to see if she really has a PE. V/Q scan can be abnormal with pneumonia. Ct eliquis for now. 08/02: CTPE shows acute and subacute PE in posterior segment of GRABIEL. no R heart strain. small clot burden. perfusion defects in RLL gone. Confirms need to be on eliquis buttermaker, perhaps 3 mo. (2) COVID-19: ?Code(s): U07.1 - COVID-19 ?Status:?Acute ?Assessment and Plan: Patient is at high risk for complication though she cannot receive remdesivir at this time given her acute kidney injury. continue Dexamethasone 08/01: No decreased dose of remdesivir for RADHA. She needs to be on remdesivir now. Start dose today for 5 days as long as pt is in the hospital. Scheduled bid mucinex and qid albuterol mdi. Already on dexamethasone iv. 08/02: remdesivir treatment initiated. (3) Acute kidney injury: ?Code(s): N17.9 - Acute kidney failure, unspecified ?Status:?Acute ?Assessment and Plan: Patient has an acute on chronic kidney injury. US renal showed left kidney stones with hydronephrosis Cr 2 from 2.1 Urology and nephrology consulte d continue IVF pending urology and nephrology eval 07/31: cr slightly better now 1.7. stopped bicarb drip, she has metabolic alkalosis now. possible urology procedure tomorrow. see their note creatinine is elevated above her baseline level of 1.2 achieved in November after prior stent exchange. She will likely need another stent exchange, but will need to be coordinated with the work up for respiratory issues, GI bleed, and COVID. Keep NPO after MN in case intervention can be done tomorrow. No exchange since November 2022. Will need exchange and then also definitive stone management. 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 Feliberto Martinez at [facility] in 2021. She appears to have not had follow up with our office since that procedure or since the stent placement in November 2022. She will need definitive stone management, either with PCNL or staged ureteroscopy. If the stone is treated, she will likely no longer nee
--- NOTE | 2023-08-02 14:45 | WPDANESEPPF ---
Anes - Initial Pre Proc Eval Procedure: Operation Date: 08/02/23 15:45 Proposed Procedures p Cystoscopy,Left Stent Exchange,Left Retrograde Pyelogram - Aidan Can MD Date/Time: 08/02/23 14:45 Surgeon: Quinton Mejia MD Pre Op Diagnosis: Sepsis Patient Data Age: 58 Gender: F Height: 1.47 m Weight: 68.6 kg Last Vital Signs Temp 36.7 C 08/02/23 06:00 Pulse 59 L 08/02/23 12:00 Resp 18 08/02/23 06:00 BP 145/97 H 08/02/23 06:00 Pulse Ox 98 08/02/23 08:00 O2 Del Method Nasal Cannula 08/02/23 08:00 O2 Flow Rate 3 08/02/23 08:00 FiO2 32 08/02/23 07:59 Allergies Allergy/AdvReac Type Severity Reaction Status Date / Time No Known Allergies Allergy Verified 07/27/23 09:46 Home Medications Medication Instructions Recorded Confirmed Type acetaminophen 650 mg PO Q4H PRN Pain (Scale 12/17/22 07/27/23 History Score 1-3) amlodipine 2.5 mg tablet 2.5 mg PO DAILY 12/17/22 07/27/23 History cholecalciferol (vitamin D3) 1,000 units PO DAILY 12/17/22 07/27/23 History citalopram 20 mg tablet 20 mg PO HS 12/17/22 07/27/23 History famotidine 20 mg tablet 20 mg PO BID 12/17/22 07/27/23 History hydrocortisone 5 mg tablet 5 mg PO DAILY 12/17/22 07/27/23 History ipratropium bromide 0.02 % 1 ml inhalation DAILY PRN 12/17/22 07/27/23 History solution for inhalation Shortness Of Breath lactulose 10 gram/15 mL oral 30 ml PO BID 12/17/22 07/27/23 History solution metoprolol tartrate 50 mg tablet 50 mg PO BID 12/17/22 07/27/23 History ondansetron 4 mg disintegrating 4 mg translingual QID PRN Nausea 12/17/22 07/27/23 History tablet And Vomiting polyethylene glycol 3350 17 g PO DAILY Constipation 12/17/22 07/27/23 History potassium chloride 20 mEq oral 20 meq PO DAILY 12/17/22 07/27/23 History packet trazodone 50 mg tablet 50 mg PO HS 12/17/22 07/27/23 History clonidine 0.1 mg/24 hr weekly 1 patch transdermal WEEKLY #4 ea 12/25/22 07/27/23 Rx transdermal patch pregabalin 75 mg capsule 75 mg PO BID #60 caps 12/25/22 07/27/23 Rx hydrocodone 5 mg-acetaminophen 325 1 tablet PO Q6H PRN Pain 07/27/23 07/27/23 History mg tablet megestrol 400 mg/10 mL (40 mg/mL) 400 mg PO BID 07/27/23 07/27/23 History oral suspension multivit with minerals-iron 18 1 tablet PO DAILY 07/27/23 07/27/23 History mg-folic ac 400 mcg-vit K 25 mcg tablet (Adults Multivitamin) sennosides 8.6 mg tablet (senna) 8.6 mg PO DAILY PRN Constipation 07/27/23 07/27/23 History Laboratory Tests 07/29/23 15:26 Ur L.pneumophila Ag Not detected (Not Detected) Patient hx anesthesia problems: none Family hx anesthesia problems: none Results Review: All pre-operative results and documents have been reviewed as part of the pre-operative evaluation. FOR[facility]LY [facility] Past Medical History Medical History Acute on chronic anemia Anemia Chronic obstructive pulmonary disease Chronic respiratory failure with hypoxia, on home oxygen therapy Previously documented that the patient is oxygen dependent on 4 L nasal cannula however she denies and is on room air with good SpO2 as of 07/27/2023. 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 History of tubal ligation Family History Family History Mother Family history of multiple sclerosi
--- NOTE | 2023-08-02 15:19 | W.PM.PROC2 ---
Procedure Note - Detailed Date of Procedure 08/02/23 Pre-op Diagnosis Retained left ureteral stent Post-op Diagnosis Same Procedure Performed Cystoscopy, attempted left ureteral stent exchange Surgeon Aidan Can MD Anesthesia MAC Description of Procedure Patient is in the operative suite where she was prepped and draped in a sterile fashion while in a supine position (markedly contracted lower extremities). Flexible cystoscopy was undertaken with a 16 F flexible cystoscope. I grabbed the tip of the indwelling stent and attempted to extract inflating rested in wall bulge from the kidney. Tried passing a wire along it but was unable to because of the size restrictions of her ureter with an indwelling stent. She has a very patulous urethra. With some difficulty I replaced her Naranjo catheter. She will need ESWL for her left retained ureteral stent followed by a change. Urine Output 1,000
[2023-08-02] MEDS: LACTATED RINGERS 1,000 ML 30 ML IV CONT (15:26)
--- NOTE | 2023-08-02 20:33 | PCRCNOTE ---
Pt refuses to take Albuterol MDI
[2023-08-02] MEDS: traZODone HCL 50 MG TABLET PO (20:56)
[2023-08-02] MEDS: CITALOPRAM HYDROBROMIDE 20 MG TABLET PO (20:56)
[2023-08-02] MEDS: ACETAMINOPHEN 325 MG TABLET 650 MG PO (21:00)
[2023-08-03] VITALS (15 sets, daily range): BP systolic 135–154; BP diastolic 87–91; PULSE 61–77; RESP 13–20; TEMP 36.4–36.7; O2SAT 96–100
[2023-08-03 06:10] LABS: Basophils Percent Auto 0.1 % (0.2-1.2); Hematocrit 29.6 % (37.0-47.0); Hemoglobin 8.6 g/dL (12.0-15.0); Immature Granulocyte Absolute 0.06 K/mm3 (0.00-0.031); Immature Granulocyte Percent A 0.5 % (0-0.5); Lymphocytes Absolute Auto 1.87 K/mm3 (0.9-3.2); Lymphocytes Percent Auto 16.2 % (18.3-44.2); Mean Corpuscular HGB Conc 29.1 g/dl (32-36); Mean Corpuscular Hemoglobin 23.8 pg (26-34); Mean Corpuscular Volume 81.8 fl (80-100); Mean Platelet Volume 10.3 fl (7.4-10.4); Monocytes Absolute Auto 0.5 K/mm3 (0.1-0.6); Monocytes Percent Auto 4.3 % (2.6-8.5); Neutrophils Absolute Auto 9.1 K/mm3 (1.3-6.7); Neutrophils Percent Auto 78.9 % (45.5-73.1); Platelet Count Result 301 k/mm3 (150-375); Red Blood Count 3.62 M/mm3 (4.2-5.4); Red Cell Distribution Width 19.2 % (11.5-14.5); White Blood Count 11.5 K/mm3 (4.5-10.0)
[2023-08-03 06:15] LABS: Alanine Aminotransferase 13 U/L (6-35); Albumin Level 2.9 g/dL (3.5-5.1); Alkaline Phosphatase 96 U/L (38-126); Anion Gap 6 mmol/L (8-16); Aspartate Amino Transferase 16 U/L (14-36); Bilirubin,Total 0.4 mg/dL (0.2-1.3); Blood Urea Nitrogen 27 mg/dL (7-17); Calcium 8.1 mg/dL (8.4-10.2); Carbon Dioxide 28 mmol/L (22-30); Chloride 106 mmol/L (98-107); Estimated Glomerular Filt Rate 31; Glucose 91 mg/dL (65-110); Magnesium 1.7 mg/dL (1.6-2.3); Potassium 3.9 mmol/L (3.4-5.0); Sodium 140 mmol/L (137-145)
[2023-08-03 06:18] LABS: INR 1.5; Prothrombin Time 19.4 Seconds (11.1-14.7)
--- NOTE | 2023-08-03 07:24 | WPDUROPN2 ---
Progress Note: A&P Assessment and Plan (1) Pyelonephritis: Code(s): N12 - Tubulo-interstitial nephritis, not specified as acute or chronic Status: Acute (2) Ureteral stent present: Code(s): Z96.0 - Presence of urogenital implants Status: Acute Assessment and Plan: Very difficult situation with a retained / encrusted left stent. At some point she will need lithotripsy in order to remove and replace the stent. This will be complicated by her need for anticoagulation. Subjective Subjective Date/Time Seen: 08/03/23 07:24 Interval history: catheter draining well Review of Systems Review of Systems: ROS unobtainable: Yes unobtainable due to mental status Exam Urinary Catheter: Urinary Catheter: patent and draining and urine clear Objective Data Vital Signs Vital Signs: Vital Signs - 24 hr 08/02/23 07:59 08/02/23 09:36 08/02/23 08:00 Temperature Pulse Rate 77 79 Respiratory Rate Blood Pressure Pulse Oximetry 98 Oxygen Delivery Nasal Cannula Oxygen Flow Rate 3 Fraction of Inspired Oxygen 32 08/02/23 08:00 08/02/23 12:00 08/02/23 15:26 Temperature 98.2 F Pulse Rate 59 L 80 Respiratory Rate 14 Blood Pressure 152/97 H Pulse Oximetry 98 100 Oxygen Delivery Nasal Cannula Simple Face Mask Oxygen Flow Rate 3 8 Fraction of Inspired Oxygen 08/02/23 15:40 08/02/23 15:55 08/02/23 16:00 Temperature Pulse Rate 62 67 71 Respiratory Rate 20 20 20 Blood Pressure 160/90 H 163/96 H 162/91 H Pulse Oximetry 100 93 94 Oxygen Delivery Simple Face Mask Nasal Cannula Nasal Cannula Oxygen Flow Rate 8 3 3 Fraction of Inspired Oxygen 08/02/23 14:46 08/02/23 20:32 08/02/23 20:58 Temperature 97.6 F Pulse Rate 62 78 Respiratory Rate 13 20 Blood Pressure 136/89 Pulse Oximetry 98 98 Oxygen Delivery Nasal Cannula Oxygen Flow Rate 3 Fraction of Inspired Oxygen 32 08/02/23 21:22 08/02/23 20:00 08/02/23 20:00 Temperature 98.3 F Pulse Rate 79 65 Respiratory Rate 20 Blood Pressure 149/91 H Pulse Oximetry 99 98 Oxygen Delivery Nasal Cannula Oxygen Flow Rate 3 Fraction of Inspired Oxygen 08/03/23 00:00 08/03/23 04:00 08/03/23 05:30 Temperature 97.6 F Pulse Rate 76 61 76 Respiratory Rate 18 Blood Pressure 143/87 H Pulse Oximetry 100 Oxygen Delivery Oxygen Flow Rate Fraction of Inspired Oxygen Intake/Output Intake/Output: Intake & Output 07/31/23 08/01/23 08/02/23 08/03/23 23:59 23:59 23:59 23:59 Intake Total 3400 420 280 100 Output Total 2550 3700 3350 250 Balance 850 -2920 -3070 -150 Meds/Results Medications: Active Medications Generic Name Dose Route Start Last Admin Trade Name Freq PRN Reason Stop Dose Admin Acetaminophen 650 mg 07/27/23 14:28 08/02/23 21:00 Acetaminophen 325 Mg Tablet PO 650 mg Q4H PRN Administration Pain (Scale Score 1-3) Hydrocodone Bitart/Acetaminophen 1 tab 07/27/23 14:25 Hydrocodone/Acetaminophen (*Crx) 5-325 Mg Tablet PO Q6H PRN Pain Rated 4-6 Albuterol 2 puff 08/01/23 14:00 08/03/23 05:30 Albuterol Sulfate (*Sp) Aerosol 1 Puff INHALATION Not Given Q6HRT MERLYN Apixaban 5 mg 07/31/23 21:50 08/02/23 20:56 Apixaban 5 Mg Tablet PO 5 mg Q12HR MERLYN Administration Citalopram Hydrobromide 20 mg 07/27/23 21:00 08/02/23 20:56 Citalopram Hydrobromide 20 Mg Tablet PO 20 mg HS MERLYN Administration Dexamethasone Sodium Phosphate 6 mg 07/28/23 08:00 08/02/23 09:38 Dexamethasone Sod Phos Inj 10 Mg/Ml 1 Ml Vial IV PUSH 08/06/23 08:01 6 mg Q24H MERLYN Administration Famotidine 20 mg 07/27/23 17:00 08/02/23 16:24 Famotidine 20 Mg Tablet PO 20 mg BID MERLYN Administration Fentanyl Citrate 25 mcg 08/02/23 14:46 Fentanyl Citrate Inj (*Crx) 100 Mcg/2 Ml Vial IV PUSH Q2M PRN Pain Guaifenesin 600 mg 08/01/23 09:55 08/02/23 20:56 Guaifenesin 12 Hr 600 Mg Tabcr
[2023-08-03] MEDS: ALBUTEROL SULFATE (*SP) AEROSOL 1 PUFF 2 PUFF INHALATION ×3 (07:52→20:33)
[2023-08-03] MEDS: APIXABAN 5 MG TABLET PO ×2 (09:37→19:48)
[2023-08-03] MEDS: guaiFENesin 12 HR 600 MG TABCR PO ×2 (09:37→19:48)
[2023-08-03] MEDS: FAMOTIDINE 20 MG TABLET PO ×2 (09:37→17:32)
[2023-08-03] MEDS: CHOLECALCIFEROL 1,000 UNITS TABLET 1000 UNITS PO (09:37)
[2023-08-03] MEDS: METOPROLOL TARTRATE 50 MG TAB PO ×2 (09:38→19:49)
[2023-08-03] MEDS: MULTIVITAMINS /C LUTEIN (CENTRUM SILVER) TABLET *BKC 1 TAB PO (09:38)
[2023-08-03] MEDS: HYDROCORTISONE 5 MG TABLET PO (09:38)
[2023-08-03] MEDS: MEGESTROL ACETATE (*CHEMO) ORAL SUSP 40 MG/ML SYR 400 MG PO ×2 (09:38→17:32)
[2023-08-03] MEDS: LACTULOSE 20 GM/30 ML UDC PO ×2 (09:38→17:32)
[2023-08-03] MEDS: PREGABALIN (*CRX) 75 MG CAPSULE PO ×2 (09:38→17:32)
[2023-08-03] MEDS: PANTOPRAZOLE SODIUM IV 40 MG VIAL IV PUSH ×2 (09:39→19:48)
[2023-08-03] MEDS: polyethylene glycoL 3350 17 GM POWD.PACK PO (09:39)
[2023-08-03] MEDS: POTASSIUM CHLORIDE 20 MEQ PACKET (FOR LIQUID) PO (09:39)
[2023-08-03] MEDS: REMDESIVIR 100 MG/NS 250 ML 100 MG/250 ML BAG 250 MG IVPB (09:46)
--- NOTE | 2023-08-03 10:01 | P.PNAN_ITS ---
Anes - Prog Note Post-Op Date/Time: 08/03/23 10:01 Cardiovascular status: normal Respiratory status: normal Airway patency: baseline Mental status: baseline Post-Op hydration status: normal Vital Signs: Last Vital Signs Temp 36.4 C 08/03/23 05:30 Pulse 77 08/03/23 09:38 Resp 20 08/03/23 07:56 BP 143/87 H 08/03/23 05:30 Pulse Ox 99 08/03/23 07:56 O2 Del Method Nasal Cannula 08/03/23 07:56 O2 Flow Rate 3 08/03/23 07:56 FiO2 32 08/03/23 07:56 Pain Score (VAS): 11/10 I/O: Intake & Output 08/02/23 08/03/23 08/03/23 23:59 07:59 15:59 Intake Total 280 100 120 Output Total 350 250 Balance -70 -150 120 Laboratory Tests 08/03/23 05:37 08/03/23 05:37 08/03/23 05:37 WBC 11.5 H RBC 3.62 L Hgb 8.6 L Hct 29.6 L MCV 81.8 MCH 23.8 L MCHC 29.1 L RDW 19.2 H Plt Count 301 MPV 10.3 Immature Gran % (Auto) 0.5 Neut % (Auto) 78.9 H Lymph % (Auto) 16.2 L [place] % (Auto) 4.3 Eos % (Auto) 0.0 Baso % (Auto) 0.1 L Lymph # (Auto) 1.87 [place] # (Auto) 0.5 Eos # (Auto) 0.0 Baso # (Auto) 0.0 Abs Immat Gran (auto) 0.06 H Absolute Neuts (auto) 9.1 H Absolute Nucleated RBC 0.0 Nucleated RBC % 0.0 PT 19.4 H INR 1.5 Sodium 140 Potassium 3.9 Chloride 106 Carbon Dioxide 28 Anion Gap 6 L BUN 27 H Creatinine 1.70 H Estim Creat Clear Calc Not Reportable Estimated GFR 31 L Glucose 91 Calcium 8.1 L Magnesium 1.7 Total Bilirubin 0.4 Direct Bilirubin 0.0 AST 16 ALT 13 Alkaline Phosphatase 96 Total Protein 7.0 Albumin 2.9 L Post-procedural complaints: none Patient Feedback: Patient satisfied with anesthetic care.
--- NOTE | 2023-08-03 16:06 | PM.IMPN ---
Progress Note: A&P Assessment and Plan (1) Acute on chronic anemia: Code(s): D64.9 - Anemia, unspecified Status: Acute (2) GI bleed: Code(s): K92.2 - Gastrointestinal hemorrhage, unspecified Status: Acute (3) Abnormal urinalysis: Code(s): R82.90 - Unspecified abnormal findings in urine Status: Acute (4) Abnormal chest x-ray: Code(s): R93.89 - Abnormal findings on diagnostic imaging of other specified body structures Status: Acute (5) Pulmonary embolism: Code(s): I26.99 - Other pulmonary embolism without acute cor pulmonale Status: Acute (6) Acute kidney injury: Code(s): N17.9 - Acute kidney failure, unspecified Status: Acute (7) Elevated d-dimer: Code(s): R79.89 - Other specified abnormal findings of blood chemistry Status: Acute (8) Chronic anemia: Code(s): D64.9 - Anemia, unspecified Status: Acute (9) Chronic respiratory failure with hypoxia, on home oxygen therapy: Code(s): J96.11 - Chronic respiratory failure with hypoxia; Z99.81 - Dependence on supplemental oxygen Status: Acute (10) Chronic obstructive pulmonary disease: Code(s): J44.9 - Chronic obstructive pulmonary disease, unspecified Status: Acute Plan # Pulmonary embolism: V/Q scan shows high probability for pulmonary embolism; lower extremity venous Doppler ultrasound unable to to rule out DVT. Continue full dose Lovenox May need IVC filter is no source of bleed not traced. CT PE shows acute and subacute PE in posterior segment of GRABIEL. no R heart strain. small clot burden. perfusion defects in RLL gone. Confirms need to be on eliquis terminal carman, perhaps 3 mo. # COVID-19: Patient is at high risk for complication though she cannot receive remdesivir at this time given her acute kidney injury. continue Dexamethasone mucinex # RADHA: Patient has an acute on chronic kidney injury. US renal showed left kidney stones with hydronephrosis Cr 2 from 2.1 Urology and nephrology consulted retained encrusted left stent, she will need lithotripsy when off anticoagulation. 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 Feliberto Martinez at [facility] in 2021. # Chronic obstructive pulmonary disease: No acute issues.? Continue maintenance inhalers. Bronchodilators q.6 hours if needed. # Chronic anemia: with iron deficiency Isat 10, started on Venofer 400/1000mg acue on chronic anemia needin trasnfusion. GI consulted. fobt nega,no reprt of gib. # Abnormal chest x-ray: ?Chest x-ray shows airspace opacity than left lower lung zone which could be atelectasis/scarring or less likely pneumonia. WBC count is elevated thus will treat for possible pneumonia with antibioticisa d completed the course # Abnormal urinalysis: Urine looks contaminated but is positive for bacteria and leukocyte esterase. Continue antibiotics, pending urine culture. # GI bleed: ?Possible GI bleed in the background of Iron deficiency anemia, severe anemia setting in on Anticoagulation FOBT pending Protonix GI consulted 07/30: abd distention but having bm's. f/u XR. she is having bm's 07/31: no gi bleed. # DVT Proph: elicalos Subjective Date/time seen: 08/03/23 16:06 Interval history: no overnight events, no fever, chills, breathing is better Review of Systems Review of Systems: All systems reviewed & are unremarkable except as noted in HPI and below Exam Narrative: General:?Chronically ill-appearing female in the semi-Car position in bed. HEENT:??Normocephalic, atraumatic.? PERRL, EOMI. Neck:??Supple. No nuchal rigidity.? No lymphadenopathy. Respiratory:?Mildly tachypneic.? She is speaking in full sentences. Lung sounds are diminished at the right base. Scattered, coarse rhonchi. does not have a good cough. Cardiovascular:?regular rate and rhythm, with normal S1-S2. Gastrointestinal:?abd is distended, and ttp in the Lower quadrants Abi
[2023-08-03] MEDS: ACETAMINOPHEN 325 MG TABLET 650 MG PO (19:48)
[2023-08-03] MEDS: CITALOPRAM HYDROBROMIDE 20 MG TABLET PO (19:48)
[2023-08-03] MEDS: traZODone HCL 50 MG TABLET PO (19:48)
[2023-08-04] VITALS (13 sets, daily range): BP systolic 129–174; BP diastolic 90–91; PULSE 58–77; RESP 16–18; TEMP 36.5–36.7; O2SAT 96–99
[2023-08-04] MEDS: ALBUTEROL SULFATE (*SP) AEROSOL 1 PUFF 2 PUFF INHALATION ×4 (02:52→20:49)
[2023-08-04] MEDS: HYDROCORTISONE 5 MG TABLET PO (09:36)
[2023-08-04] MEDS: PREGABALIN (*CRX) 75 MG CAPSULE PO ×2 (09:36→17:28)
[2023-08-04] MEDS: CHOLECALCIFEROL 1,000 UNITS TABLET 1000 UNITS PO (09:36)
[2023-08-04] MEDS: MULTIVITAMINS /C LUTEIN (CENTRUM SILVER) TABLET *BKC 1 TAB PO (09:37)
[2023-08-04] MEDS: POTASSIUM CHLORIDE 20 MEQ PACKET (FOR LIQUID) PO (09:37)
[2023-08-04] MEDS: FAMOTIDINE 20 MG TABLET PO ×2 (09:37→17:28)
[2023-08-04] MEDS: guaiFENesin 12 HR 600 MG TABCR PO ×2 (09:37→20:06)
[2023-08-04] MEDS: METOPROLOL TARTRATE 50 MG TAB PO ×2 (09:37→20:07)
[2023-08-04] MEDS: APIXABAN 5 MG TABLET PO ×2 (09:37→20:06)
[2023-08-04] MEDS: MEGESTROL ACETATE (*CHEMO) ORAL SUSP 40 MG/ML SYR 400 MG PO ×2 (09:38→17:28)
[2023-08-04] MEDS: PANTOPRAZOLE SODIUM IV 40 MG VIAL IV PUSH ×2 (09:38→20:06)
[2023-08-04] MEDS: LACTULOSE 20 GM/30 ML UDC PO ×2 (09:38→17:28)
[2023-08-04] MEDS: REMDESIVIR 100 MG/NS 250 ML 100 MG/250 ML BAG 250 MG IVPB (11:41)
--- NOTE | 2023-08-04 13:16 | PM.IMPN ---
Progress Note: A&P Assessment and Plan (1) Acute on chronic anemia: Code(s): D64.9 - Anemia, unspecified Status: Acute (2) GI bleed: Code(s): K92.2 - Gastrointestinal hemorrhage, unspecified Status: Acute (3) Abnormal urinalysis: Code(s): R82.90 - Unspecified abnormal findings in urine Status: Acute (4) Abnormal chest x-ray: Code(s): R93.89 - Abnormal findings on diagnostic imaging of other specified body structures Status: Acute (5) Pulmonary embolism: Code(s): I26.99 - Other pulmonary embolism without acute cor pulmonale Status: Acute (6) Acute kidney injury: Code(s): N17.9 - Acute kidney failure, unspecified Status: Acute (7) Elevated d-dimer: Code(s): R79.89 - Other specified abnormal findings of blood chemistry Status: Acute (8) Chronic anemia: Code(s): D64.9 - Anemia, unspecified Status: Acute (9) Chronic respiratory failure with hypoxia, on home oxygen therapy: Code(s): J96.11 - Chronic respiratory failure with hypoxia; Z99.81 - Dependence on supplemental oxygen Status: Acute (10) Chronic obstructive pulmonary disease: Code(s): J44.9 - Chronic obstructive pulmonary disease, unspecified Status: Acute Plan # Pulmonary embolism: V/Q scan shows high probability for pulmonary embolism; lower extremity venous Doppler ultrasound unable to to rule out DVT. Continue full dose Lovenox May need IVC filter is no source of bleed not traced. CT PE shows acute and subacute PE in posterior segment of GRABIEL. no R heart strain. small clot burden. perfusion defects in RLL gone. 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 Renal dosing # COVID-19: Patient is at high risk for complication though she cannot receive remdesivir at this time given her acute kidney injury. continue Dexamethasone mucinex # RADHA: Patient has an acute on chronic kidney injury. US renal showed left kidney stones with hydronephrosis Cr 2 from 2.1 Urology and nephrology consulted Attempted removal of the left ureteral stent which was unsuccessful retained encrusted left stent, she will need lithotripsy when off anticoagulation. 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 Feliberto Martinez at [facility] in 2021. # Chronic obstructive pulmonary disease: No acute issues.? Continue maintenance inhalers. Bronchodilators q.6 hours if needed. # Chronic anemia: with iron deficiency Isat 10, started on Venofer 400/1000mg acue on chronic anemia needin trasnfusion. GI consulted. fobt nega,no reprt of gib. # Abnormal chest x-ray: ?Chest x-ray shows airspace opacity than left lower lung zone which could be atelectasis/scarring or less likely pneumonia. WBC count is elevated thus will treat for possible pneumonia with antibioticisa d completed the course # Abnormal urinalysis: Urine looks contaminated but is positive for bacteria and leukocyte esterase. Continue antibiotics, pending urine culture. # GI bleed: ?Possible GI bleed in the background of Iron deficiency anemia, severe anemia setting in on Anticoagulation FOBT pending Protonix GI consulted 07/30: abd distention but having bm's. f/u XR. she is having bm's 07/31: no gi bleed. # DVT Proph: melissa Subjective Date/time seen: 08/04/23 13:16 Interval history: no overnight events, patient off oxygen today. Feels well. No new complaints. Labs refused by the patient today. Review of Systems Review of Systems: All systems reviewed & are unremarkable except as noted in HPI and below Exam Narrative: General:?Chronically ill-appearing female in the semi-Car position in bed. HEENT:??Normocephalic, atraumatic.? PERRL, EOMI. Neck:??Supple. No nuchal rigidity.? No lymphadenopathy. Respiratory:?Mildly tachypneic.? She is speaking in full sentences. Lung sounds are diminished at the right base. Scattered, coarse rhonchi. does not have a good co
[2023-08-04 15:22] LABS: Basophils Percent Auto 0.1 % (0.2-1.2); Hematocrit 32.2 % (37.0-47.0); Hemoglobin 9.6 g/dL (12.0-15.0); Immature Granulocyte Absolute 0.06 K/mm3 (0.00-0.031); Immature Granulocyte Percent A 0.5 % (0-0.5); Lymphocytes Absolute Auto 0.64 K/mm3 (0.9-3.2); Lymphocytes Percent Auto 4.8 % (18.3-44.2); Mean Corpuscular HGB Conc 29.8 g/dl (32-36); Mean Corpuscular Volume 80.5 fl (80-100); Mean Platelet Volume 10.2 fl (7.4-10.4); Monocytes Absolute Auto 0.1 K/mm3 (0.1-0.6); Monocytes Percent Auto 1.1 % (2.6-8.5); Neutrophils Absolute Auto 12.4 K/mm3 (1.3-6.7); Neutrophils Percent Auto 93.5 % (45.5-73.1); Platelet Count Result 365 k/mm3 (150-375); Red Cell Distribution Width 19.6 % (11.5-14.5); White Blood Count 13.2 K/mm3 (4.5-10.0)
[2023-08-04 15:37] LABS: Hypochromasia 1+ (NORMAL); Platelet Estimate Adequate (Adequate)
[2023-08-04 15:38] LABS: Ovalocytes 1+ (NORMAL); Schistocytes None Seen (NORMAL)
[2023-08-04 15:43] LABS: Alanine Aminotransferase 13 U/L (6-35); Albumin Level 3.1 g/dL (3.5-5.1); Alkaline Phosphatase 93 U/L (38-126); Anion Gap 8 mmol/L (8-16); Aspartate Amino Transferase 15 U/L (14-36); Bilirubin,Total 0.5 mg/dL (0.2-1.3); Blood Urea Nitrogen 26 mg/dL (7-17); Calcium 7.9 mg/dL (8.4-10.2); Carbon Dioxide 22 mmol/L (22-30); Chloride 111 mmol/L (98-107); Estimated Glomerular Filt Rate 39; Glucose 117 mg/dL (65-110); Magnesium 1.9 mg/dL (1.6-2.3); Potassium 4.3 mmol/L (3.4-5.0); Sodium 141 mmol/L (137-145)
[2023-08-04] MEDS: traZODone HCL 50 MG TABLET PO (20:06)
[2023-08-04] MEDS: ACETAMINOPHEN 325 MG TABLET 650 MG PO (20:06)
[2023-08-04] MEDS: CITALOPRAM HYDROBROMIDE 20 MG TABLET PO (20:06)
[2023-08-05] VITALS (15 sets, daily range): BP systolic 128–149; BP diastolic 76–86; PULSE 55–80; RESP 16–18; TEMP 35.7–37.1; O2SAT 97–99
[2023-08-05] MEDS: ALBUTEROL SULFATE (*SP) AEROSOL 1 PUFF 2 PUFF INHALATION ×3 (01:30→15:27)
--- NOTE | 2023-08-05 03:10 | PC.NURSE ---
Daylight Savings Time For Daylight Savings Time Ending in the Fall - Clocks are moved back. For Daylight Savings Time Beginning in the Spring - Clocks are moved ahead. For [facility], the time of change occurs at 0200 hrs. Time is taken from the chief service observer. This entry on the patient's chart recognizes the change in time reflected during documentation. Example: 2 entries for vital signs may be charted for 0200 hrs.
[2023-08-05 05:37] LABS: Basophils Percent Auto 0.1 % (0.2-1.2); Eosinophils Percent Auto 0.2 % (0-4.4); Hematocrit 33.1 % (37.0-47.0); Hemoglobin 9.6 g/dL (12.0-15.0); Immature Granulocyte Absolute 0.06 K/mm3 (0.00-0.031); Immature Granulocyte Percent A 0.6 % (0-0.5); Lymphocytes Absolute Auto 2.49 K/mm3 (0.9-3.2); Mean Corpuscular Hemoglobin 23.9 pg (26-34); Mean Corpuscular Volume 82.5 fl (80-100); Mean Platelet Volume 11.1 fl (7.4-10.4); Monocytes Absolute Auto 0.5 K/mm3 (0.1-0.6); Neutrophils Absolute Auto 7.3 K/mm3 (1.3-6.7); Neutrophils Percent Auto 70.1 % (45.5-73.1); Platelet Count Result 342 k/mm3 (150-375); Red Blood Count 4.01 M/mm3 (4.2-5.4); Red Cell Distribution Width 19.9 % (11.5-14.5); White Blood Count 10.4 K/mm3 (4.5-10.0)
[2023-08-05 05:46] LABS: INR 1.8; Prothrombin Time 22.2 Seconds (11.1-14.7)
[2023-08-05 05:53] LABS: Alanine Aminotransferase 11 U/L (6-35); Albumin Level 3.1 g/dL (3.5-5.1); Alkaline Phosphatase 96 U/L (38-126); Anion Gap 9 mmol/L (8-16); Aspartate Amino Transferase 12 U/L (14-36); Bilirubin,Total 0.5 mg/dL (0.2-1.3); Blood Urea Nitrogen 25 mg/dL (7-17); Calcium 8.2 mg/dL (8.4-10.2); Carbon Dioxide 21 mmol/L (22-30); Chloride 111 mmol/L (98-107); Estimated Glomerular Filt Rate 39; Glucose 84 mg/dL (65-110); Magnesium 1.9 mg/dL (1.6-2.3); Sodium 141 mmol/L (137-145)
[2023-08-05 05:56] LABS: Platelet Estimate Adequate (Adequate)
[2023-08-05 05:57] LABS: Anisocytosis 1+ (NORMAL); Ovalocytes 1+ (NORMAL); Schistocytes Rare (NORMAL)
[2023-08-05] MEDS: REMDESIVIR 100 MG/NS 250 ML 100 MG/250 ML BAG 250 MG IVPB (09:49)
[2023-08-05] MEDS: HYDROCORTISONE 5 MG TABLET PO (09:50)
[2023-08-05] MEDS: MEGESTROL ACETATE (*CHEMO) ORAL SUSP 40 MG/ML SYR 400 MG PO ×2 (09:50→17:58)
[2023-08-05] MEDS: PANTOPRAZOLE SODIUM IV 40 MG VIAL IV PUSH ×2 (09:50→23:13)
[2023-08-05] MEDS: LACTULOSE 20 GM/30 ML UDC PO ×2 (09:50→17:58)
[2023-08-05] MEDS: guaiFENesin 12 HR 600 MG TABCR PO ×2 (09:51→23:13)
[2023-08-05] MEDS: CHOLECALCIFEROL 1,000 UNITS TABLET 1000 UNITS PO (09:51)
[2023-08-05] MEDS: FAMOTIDINE 20 MG TABLET PO ×2 (09:51→17:58)
[2023-08-05] MEDS: PREGABALIN (*CRX) 75 MG CAPSULE PO ×2 (09:51→17:58)
[2023-08-05] MEDS: APIXABAN 5 MG TABLET PO ×2 (09:51→23:13)
[2023-08-05] MEDS: MULTIVITAMINS /C LUTEIN (CENTRUM SILVER) TABLET *BKC 1 TAB PO (09:51)
[2023-08-05] MEDS: METOPROLOL TARTRATE 50 MG TAB PO ×2 (09:52→23:13)
[2023-08-05] MEDS: polyethylene glycoL 3350 17 GM POWD.PACK PO (09:52)
[2023-08-05] MEDS: POTASSIUM CHLORIDE 20 MEQ PACKET (FOR LIQUID) PO (09:52)
--- NOTE | 2023-08-05 12:51 | PM.IMPN ---
Progress Note: A&P Assessment and Plan (1) Acute on chronic anemia: Code(s): D64.9 - Anemia, unspecified Status: Acute (2) GI bleed: Code(s): K92.2 - Gastrointestinal hemorrhage, unspecified Status: Acute (3) Abnormal urinalysis: Code(s): R82.90 - Unspecified abnormal findings in urine Status: Acute (4) Abnormal chest x-ray: Code(s): R93.89 - Abnormal findings on diagnostic imaging of other specified body structures Status: Acute (5) Pulmonary embolism: Code(s): I26.99 - Other pulmonary embolism without acute cor pulmonale Status: Acute (6) Acute kidney injury: Code(s): N17.9 - Acute kidney failure, unspecified Status: Acute (7) Elevated d-dimer: Code(s): R79.89 - Other specified abnormal findings of blood chemistry Status: Acute (8) Chronic anemia: Code(s): D64.9 - Anemia, unspecified Status: Acute (9) Chronic respiratory failure with hypoxia, on home oxygen therapy: Code(s): J96.11 - Chronic respiratory failure with hypoxia; Z99.81 - Dependence on supplemental oxygen Status: Acute (10) Chronic obstructive pulmonary disease: Code(s): J44.9 - Chronic obstructive pulmonary disease, unspecified Status: Acute Plan # Pulmonary embolism: V/Q scan shows high probability for pulmonary embolism; lower extremity venous Doppler ultrasound unable to to rule out DVT. Continue full dose Lovenox May need IVC filter is no source of bleed not traced. CT PE shows acute and subacute PE in posterior segment of GRABIEL. no R heart strain. small clot burden. perfusion defects in RLL gone. 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 Renal dosing H&H remains stable on anticoagulation now # COVID-19: Patient is at high risk for complication though she cannot receive remdesivir at this time given her acute kidney injury. continue Dexamethasone mucinex Finish remdesivir course # RADHA: Patient has an acute on chronic kidney injury. US renal showed left kidney stones with hydronephrosis Cr 2 from 2.1 Urology and nephrology consulted Attempted removal of the left ureteral stent which was unsuccessful retained encrusted left stent, she will need lithotripsy when off anticoagulation. 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 Feliberto Martinez at [facility] in 2021. # Chronic obstructive pulmonary disease: No acute issues.? Continue maintenance inhalers. Bronchodilators q.6 hours if needed. # Chronic anemia: with iron deficiency Isat 10, started on Venofer 400/1000mg acue on chronic anemia needin trasnfusion. GI consulted. fobt nega,no reprt of gib. # Abnormal chest x-ray: ?Chest x-ray shows airspace opacity than left lower lung zone which could be atelectasis/scarring or less likely pneumonia. WBC count is elevated thus will treat for possible pneumonia with antibioticisa d completed the course # Abnormal urinalysis: Urine looks contaminated but is positive for bacteria and leukocyte esterase. Continue antibiotics, urine culture no growth # GI bleed: ?Possible GI bleed in the background of Iron deficiency anemia, severe anemia setting in on Anticoagulation FOBT pending Protonix GI consulted 07/30: abd distention but having bm's. f/u XR. she is having bm's 07/31: no gi bleed. # DVT Proph: melissa Subjective Date/time seen: 08/05/23 12:51 Interval history: No new complaints. Feels okay. Marcella has been out placed on p.o. week has coccygeal wound discussed with nursing staff. Review of Systems Review of Systems: All systems reviewed & are unremarkable except as noted in HPI and below Exam Narrative: General:?Chronically ill-appearing female in the semi-Car position in bed. HEENT:??Normocephalic, atraumatic.? PERRL, EOMI. Neck:??Supple. No nuchal rigidity.? No lymphadenopathy. Respiratory:?Mildly tachypneic.? She is speaking in full sentences. Lung sounds are diminis
[2023-08-05] MEDS: traZODone HCL 50 MG TABLET PO (23:13)
[2023-08-05] MEDS: CITALOPRAM HYDROBROMIDE 20 MG TABLET PO (23:13)
[2023-08-06] VITALS (13 sets, daily range): BP systolic 124–154; BP diastolic 77–83; PULSE 57–91; RESP 17–20; TEMP 36.3–37.2; O2SAT 97–100
[2023-08-06] MEDS: ALBUTEROL SULFATE (*SP) AEROSOL 1 PUFF 2 PUFF INHALATION ×4 (02:47→21:19)
[2023-08-06] MEDS: APIXABAN 5 MG TABLET PO ×2 (08:22→21:55)
[2023-08-06] MEDS: LACTULOSE 20 GM/30 ML UDC PO ×2 (08:22→17:47)
[2023-08-06] MEDS: POTASSIUM CHLORIDE 20 MEQ PACKET (FOR LIQUID) PO (08:22)
[2023-08-06] MEDS: PANTOPRAZOLE SODIUM IV 40 MG VIAL IV PUSH ×2 (08:22→21:55)
[2023-08-06] MEDS: METOPROLOL TARTRATE 50 MG TAB PO ×2 (08:22→22:07)
[2023-08-06] MEDS: polyethylene glycoL 3350 17 GM POWD.PACK PO (08:22)
[2023-08-06] MEDS: MEGESTROL ACETATE (*CHEMO) ORAL SUSP 40 MG/ML SYR 400 MG PO ×2 (08:22→17:47)
[2023-08-06] MEDS: FAMOTIDINE 20 MG TABLET PO ×2 (08:23→17:48)
[2023-08-06] MEDS: CHOLECALCIFEROL 1,000 UNITS TABLET 1000 UNITS PO (08:23)
[2023-08-06] MEDS: MULTIVITAMINS /C LUTEIN (CENTRUM SILVER) TABLET *BKC 1 TAB PO (08:23)
[2023-08-06] MEDS: guaiFENesin 12 HR 600 MG TABCR PO ×2 (08:23→21:55)
[2023-08-06] MEDS: PREGABALIN (*CRX) 75 MG CAPSULE PO ×2 (08:23→17:48)
[2023-08-06] MEDS: HYDROCORTISONE 5 MG TABLET PO (08:23)
[2023-08-06 11:07] LABS: Basophils Percent Auto 0.1 % (0.2-1.2); Eosinophils Percent Auto 0.1 % (0-4.4); Hematocrit 30.6 % (37.0-47.0); Immature Granulocyte Absolute 0.08 K/mm3 (0.00-0.031); Immature Granulocyte Percent A 0.6 % (0-0.5); Lymphocytes Absolute Auto 0.75 K/mm3 (0.9-3.2); Lymphocytes Percent Auto 5.3 % (18.3-44.2); Mean Corpuscular HGB Conc 29.4 g/dl (32-36); Mean Corpuscular Hemoglobin 24.1 pg (26-34); Mean Corpuscular Volume 81.8 fl (80-100); Mean Platelet Volume 10.5 fl (7.4-10.4); Monocytes Absolute Auto 0.2 K/mm3 (0.1-0.6); Monocytes Percent Auto 1.3 % (2.6-8.5); Neutrophils Absolute Auto 13.1 K/mm3 (1.3-6.7); Neutrophils Percent Auto 92.6 % (45.5-73.1); Platelet Count Result 351 k/mm3 (150-375); Red Blood Count 3.74 M/mm3 (4.2-5.4); Red Cell Distribution Width 20.5 % (11.5-14.5); White Blood Count 14.1 K/mm3 (4.5-10.0)
[2023-08-06 11:18] LABS: Alanine Aminotransferase 13 U/L (6-35); Alkaline Phosphatase 80 U/L (38-126); Anion Gap 8 mmol/L (8-16); Aspartate Amino Transferase 13 U/L (14-36); Bilirubin,Total 0.5 mg/dL (0.2-1.3); Blood Urea Nitrogen 35 mg/dL (7-17); Carbon Dioxide 18 mmol/L (22-30); Chloride 112 mmol/L (98-107); Estimated Glomerular Filt Rate 39; Glucose 137 mg/dL (65-110); Magnesium 1.9 mg/dL (1.6-2.3); Potassium 3.9 mmol/L (3.4-5.0); Sodium 138 mmol/L (137-145)
[2023-08-06 11:39] LABS: Anisocytosis 2+ (NORMAL); Hypochromasia 2+ (NORMAL); Ovalocytes 1+ (NORMAL); Poikilocytosis 2+ (NORMAL); Schistocytes Rare (NORMAL); Tear Drop Cells 2+ (NORMAL)
--- NOTE | 2023-08-06 15:37 | PM.IMPN ---
Progress Note: A&P Assessment and Plan (1) Acute on chronic anemia: Code(s): D64.9 - Anemia, unspecified Status: Acute (2) GI bleed: Code(s): K92.2 - Gastrointestinal hemorrhage, unspecified Status: Acute (3) Abnormal urinalysis: Code(s): R82.90 - Unspecified abnormal findings in urine Status: Acute (4) Abnormal chest x-ray: Code(s): R93.89 - Abnormal findings on diagnostic imaging of other specified body structures Status: Acute (5) Pulmonary embolism: Code(s): I26.99 - Other pulmonary embolism without acute cor pulmonale Status: Acute (6) Acute kidney injury: Code(s): N17.9 - Acute kidney failure, unspecified Status: Acute (7) Elevated d-dimer: Code(s): R79.89 - Other specified abnormal findings of blood chemistry Status: Acute (8) Chronic anemia: Code(s): D64.9 - Anemia, unspecified Status: Acute (9) Chronic respiratory failure with hypoxia, on home oxygen therapy: Code(s): J96.11 - Chronic respiratory failure with hypoxia; Z99.81 - Dependence on supplemental oxygen Status: Acute (10) Chronic obstructive pulmonary disease: Code(s): J44.9 - Chronic obstructive pulmonary disease, unspecified Status: Acute Plan # Pulmonary embolism: V/Q scan shows high probability for pulmonary embolism; lower extremity venous Doppler ultrasound unable to to rule out DVT. Continue full dose Lovenox May need IVC filter is no source of bleed not traced. CT PE shows acute and subacute PE in posterior segment of GRABIEL. no R heart strain. small clot burden. perfusion defects in RLL gone. 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 Renal dosing H&H remains stable on anticoagulation now # COVID-19: Patient is at high risk for complication though she cannot receive remdesivir at this time given her acute kidney injury. continue Dexamethasone mucinex Finish remdesivir course and finished dexamethasone course she is off oxygen # RADHA: Patient has an acute on chronic kidney injury. US renal showed left kidney stones with hydronephrosis Cr 2 from 2.1 Urology and nephrology consulted Attempted removal of the left ureteral stent which was unsuccessful retained encrusted left stent, she will need lithotripsy when off anticoagulation. 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 Feliberto Martinez at [facility] in 2021. # Chronic obstructive pulmonary disease: No acute issues.? Continue maintenance inhalers. Bronchodilators q.6 hours if needed. # Chronic anemia: with iron deficiency Isat 10, started on Venofer 400/1000mg acue on chronic anemia needin trasnfusion. GI consulted. fobt nega,no reprt of gib. # Abnormal chest x-ray: ?Chest x-ray shows airspace opacity than left lower lung zone which could be atelectasis/scarring or less likely pneumonia. WBC count is elevated thus will treat for possible pneumonia with antibioticisa d completed the course # Abnormal urinalysis: Urine looks contaminated but is positive for bacteria and leukocyte esterase. Continue antibiotics, urine culture no growth # GI bleed: ?Possible GI bleed in the background of Iron deficiency anemia, severe anemia setting in on Anticoagulation FOBT pending Protonix GI consulted 07/30: abd distention but having bm's. f/u XR. she is having bm's 07/31: no gi bleed. # DVT Proph: eliquis # pinkish urine maybe some hematuria. Will check urinalysis Subjective Date/time seen: 08/06/23 15:37 Interval history: No new complaints. Urine looks pinkish today. Abdomen is little bloated and she feels a little nauseous Review of Systems Review of Systems: All systems reviewed & are unremarkable except as noted in HPI and below Exam Narrative: General:?Chronically ill-appearing female in the semi-Car position in bed. HEENT:??Normocephalic, atraumatic.? PERRL, EOMI. Neck:??Supple. No nuchal rigidity.? No lymphadenop
[2023-08-06 19:49] LABS: Appearance Urine Slightly Cloudy (Clear); Bilirubin Urine 1+ (Negative); Blood Urine 3+ (Negative); Color Urine Red (Yellow); Glucose Urine UA Negative (Negative); Ketones Urine Trace mg/dL (Negative); Leukocyte Esterase Ur 1+ LEU/UL (NEGATIVE); Nitrate Urine Positive (Negative); Protein Urine 3+ mg/dL (Negative); Urobilinogen Urine 0.2 mg/dL (<2.0); pH Urine 7.5 (5.0-9.0)
[2023-08-06 19:55] LABS: Bacteria Urine 1+ /hpf; Non Pathogenic Casts 0-2; RBC Urine >100 /hpf (0-2); Squamous Epithelial Cell Urine None seen /hpf (Few); WBC Urine 21-50 /hpf (0-3)
[2023-08-06 20:01] LABS: Add Urine Microscopic? YES
[2023-08-06] MEDS: traZODone HCL 50 MG TABLET PO (21:55)
[2023-08-06] MEDS: CITALOPRAM HYDROBROMIDE 20 MG TABLET PO (21:55)
[2023-08-07] VITALS (14 sets, daily range): BP systolic 140–149; BP diastolic 78–90; PULSE 67–87; RESP 16–20; TEMP 36.3–36.9; O2SAT 96–100
[2023-08-07] MEDS: ALBUTEROL SULFATE (*SP) AEROSOL 1 PUFF 2 PUFF INHALATION ×4 (02:20→19:34)
[2023-08-07 06:16] LABS: Basophils Percent Auto 0.1 % (0.2-1.2); Eosinophils Percent Auto 0.2 % (0-4.4); Hematocrit 31.3 % (37.0-47.0); Hemoglobin 9.1 g/dL (12.0-15.0); Immature Granulocyte Absolute 0.13 K/mm3 (0.00-0.031); Immature Granulocyte Percent A 0.7 % (0-0.5); Mean Corpuscular HGB Conc 29.1 g/dl (32-36); Mean Corpuscular Hemoglobin 24.1 pg (26-34); Mean Corpuscular Volume 82.8 fl (80-100); Mean Platelet Volume 11.3 fl (7.4-10.4); Monocytes Absolute Auto 0.8 K/mm3 (0.1-0.6); Monocytes Percent Auto 4.7 % (2.6-8.5); Neutrophils Absolute Auto 13.8 K/mm3 (1.3-6.7); Neutrophils Percent Auto 79.3 % (45.5-73.1); Platelet Count Result 358 k/mm3 (150-375); Red Blood Count 3.78 M/mm3 (4.2-5.4); Red Cell Distribution Width 20.7 % (11.5-14.5); White Blood Count 17.4 K/mm3 (4.5-10.0)
[2023-08-07 06:34] LABS: Alanine Aminotransferase 12 U/L (6-35); Alkaline Phosphatase 83 U/L (38-126); Anion Gap 8 mmol/L (8-16); Aspartate Amino Transferase 13 U/L (14-36); Bilirubin,Total 0.4 mg/dL (0.2-1.3); Blood Urea Nitrogen 41 mg/dL (7-17); Calcium 8.1 mg/dL (8.4-10.2); Carbon Dioxide 21 mmol/L (22-30); Chloride 111 mmol/L (98-107); Estimated Glomerular Filt Rate 36; Glucose 101 mg/dL (65-110); Magnesium 1.9 mg/dL (1.6-2.3); Potassium 3.8 mmol/L (3.4-5.0); Sodium 140 mmol/L (137-145)
[2023-08-07 06:40] LABS: Platelet Estimate Adequate (Adequate)
[2023-08-07 06:41] LABS: Anisocytosis 2+ (NORMAL); Burr Cells 1+ (NORMAL)
[2023-08-07 06:42] LABS: Schistocytes None Seen (NORMAL)
[2023-08-07] MEDS: MEGESTROL ACETATE (*CHEMO) ORAL SUSP 40 MG/ML SYR 400 MG PO ×2 (09:27→16:31)
[2023-08-07] MEDS: PANTOPRAZOLE SODIUM IV 40 MG VIAL IV PUSH ×2 (09:27→22:17)
[2023-08-07] MEDS: guaiFENesin 12 HR 600 MG TABCR PO ×2 (09:28→22:12)
[2023-08-07] MEDS: MULTIVITAMINS /C LUTEIN (CENTRUM SILVER) TABLET *BKC 1 TAB PO (09:28)
[2023-08-07] MEDS: CHOLECALCIFEROL 1,000 UNITS TABLET 1000 UNITS PO (09:28)
[2023-08-07] MEDS: LACTULOSE 20 GM/30 ML UDC PO ×2 (09:28→16:31)
[2023-08-07] MEDS: METOPROLOL TARTRATE 50 MG TAB PO ×2 (09:28→22:12)
[2023-08-07] MEDS: APIXABAN 5 MG TABLET PO ×2 (09:29→22:12)
[2023-08-07] MEDS: POTASSIUM CHLORIDE 20 MEQ PACKET (FOR LIQUID) PO (09:29)
[2023-08-07] MEDS: HYDROCORTISONE 5 MG TABLET PO (09:29)
[2023-08-07] MEDS: polyethylene glycoL 3350 17 GM POWD.PACK PO (09:29)
[2023-08-07] MEDS: FAMOTIDINE 20 MG TABLET PO ×2 (09:29→16:31)
[2023-08-07] MEDS: PREGABALIN (*CRX) 75 MG CAPSULE PO ×2 (09:29→16:31)
--- NOTE | 2023-08-07 13:38 | PCNFU ---
Nutrition Follow-Up Complete: Moderate protein calorie malnutrition related to inadequate energy intake with increased nutrient needs as evidenced by significant weight loss of -18% x 6 months, increased needs for multiple areas of wound healing, insufficient po intake Increased nutrient needs related to altered skin integrity as evidenced by noted pressure injuries Goal:PO intake 75% or greater for meals and supplements Pt is meeting goal. Continue with same goal. Pt current nutrition is Soft and bite sized level 6, heart healthy diet, Ensure BID, AYALA BID. Nutrition recommendation: Continue with current plan of care Last recorded weight is 65.8 kg. Bowel Motility: +BM 08/06 Labs Reviewed: Hgb:9.1, HCT:31.3, Alb:3.0, GFR:36, BUN:41, Cr:1.5 Meds Noted: megace, protonix Skin: Stage III to right heel and ischium, Stage III to left ischium Additional Notes: Pt is on a soft and bite sized level 6 diet, intake is good at 75-100% most meals. Agree with diet orders, encourage intake of meals and supplements. Monitor diet order, intake, wt, labs, skin. Follow up in 5 days.
--- NOTE | 2023-08-07 14:15 | PM.IMPN ---
Progress Note: A&P Assessment and Plan (1) Acute on chronic anemia: Code(s): D64.9 - Anemia, unspecified Status: Acute (2) GI bleed: Code(s): K92.2 - Gastrointestinal hemorrhage, unspecified Status: Acute (3) Abnormal urinalysis: Code(s): R82.90 - Unspecified abnormal findings in urine Status: Acute (4) Abnormal chest x-ray: Code(s): R93.89 - Abnormal findings on diagnostic imaging of other specified body structures Status: Acute (5) Pulmonary embolism: Code(s): I26.99 - Other pulmonary embolism without acute cor pulmonale Status: Acute (6) Acute kidney injury: Code(s): N17.9 - Acute kidney failure, unspecified Status: Acute (7) Elevated d-dimer: Code(s): R79.89 - Other specified abnormal findings of blood chemistry Status: Acute (8) Chronic anemia: Code(s): D64.9 - Anemia, unspecified Status: Acute (9) Chronic respiratory failure with hypoxia, on home oxygen therapy: Code(s): J96.11 - Chronic respiratory failure with hypoxia; Z99.81 - Dependence on supplemental oxygen Status: Acute (10) Chronic obstructive pulmonary disease: Code(s): J44.9 - Chronic obstructive pulmonary disease, unspecified Status: Acute Plan # Pulmonary embolism: V/Q scan shows high probability for pulmonary embolism; lower extremity venous Doppler ultrasound unable to to rule out DVT. May need IVC filter is no source of bleed not traced. CT PE shows acute and subacute PE in posterior segment of GRABIEL. no R heart strain. small clot burden. perfusion defects in RLL gone. Confirms need to be on eliquis senior care, perhaps 3 mo. Renal dosing H&H remains stable on anticoagulation now # COVID-19: Patient is at high risk for complication though she cannot receive remdesivir at this time given her acute kidney injury. continue Dexamethasone mucinex Finish remdesivir course and finished dexamethasone course she is off oxygen # RADHA: Patient has an acute on chronic kidney injury. US renal showed left kidney stones with hydronephrosis Cr 2 from 2.1 Urology and nephrology consulted Attempted removal of the left ureteral stent which was unsuccessful retained encrusted left stent, she will need lithotripsy when off anticoagulation. 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 Feliberto Martinez at [facility] in 2021. This is stable now and back to her baseline # Chronic obstructive pulmonary disease: No acute issues.? Continue maintenance inhalers. Bronchodilators q.6 hours if needed. # Chronic anemia: with iron deficiency Isat 10, started on Venofer 400/1000mg acue on chronic anemia needin trasnfusion. GI consulted. fobt nega,no reprt of gib. # Abnormal chest x-ray: ?Chest x-ray shows airspace opacity than left lower lung zone which could be atelectasis/scarring or less likely pneumonia. WBC count is elevated thus will treat for possible pneumonia with antibioticisa d completed the course Recheck chest x-ray for leukocytosis # Abnormal urinalysis: Urine looks contaminated but is positive for bacteria and leukocyte esterase. Continue antibiotics, urine culture no growth UA dirty again. Recent instrumentation Will reinitiate ceftriaxone Sent for urine culture # GI bleed: ?Possible GI bleed in the background of Iron deficiency anemia, severe anemia setting in on Anticoagulation FOBT pending Protonix GI consulted 07/30: abd distention but having bm's. f/u XR. she is having bm's 07/31: no gi bleed. # DVT Proph: eliquis # pinkish urine maybe some hematuria. UA with hematuria as well as WBC present. Leukocytosis noted on CBC. Will restart ceftriaxone sent for urine culture Subjective Date/time seen: 08/07/23 14:15 Interval history: Patient feels okay. Labs reveal worsening leukocytosis. Urinalysis dirty. Denies any abdominal pain nausea vomiting. Review of Systems Review of Systems: All systems rev
[2023-08-07] MEDS: CITALOPRAM HYDROBROMIDE 20 MG TABLET PO (22:12)
[2023-08-07] MEDS: traZODone HCL 50 MG TABLET PO (22:12)
[2023-08-08] VITALS (14 sets, daily range): BP systolic 101–139; BP diastolic 70–76; PULSE 65–83; RESP 12–20; TEMP 36.5–37.1; O2SAT 97–100
[2023-08-08 05:30] LABS: Basophils Percent Auto 0.1 % (0.2-1.2); Eosinophils Absolute Auto 0.1 K/mm3 (0-0.3); Eosinophils Percent Auto 0.8 % (0-4.4); Hemoglobin 9.3 g/dL (12.0-15.0); Immature Granulocyte Absolute 0.12 K/mm3 (0.00-0.031); Immature Granulocyte Percent A 0.7 % (0-0.5); Lymphocytes Absolute Auto 2.23 K/mm3 (0.9-3.2); Lymphocytes Percent Auto 13.4 % (18.3-44.2); Mean Corpuscular HGB Conc 28.2 g/dl (32-36); Mean Corpuscular Hemoglobin 23.8 pg (26-34); Mean Corpuscular Volume 84.6 fl (80-100); Mean Platelet Volume 11.2 fl (7.4-10.4); Monocytes Absolute Auto 0.9 K/mm3 (0.1-0.6); Monocytes Percent Auto 5.5 % (2.6-8.5); Neutrophils Absolute Auto 13.3 K/mm3 (1.3-6.7); Neutrophils Percent Auto 79.5 % (45.5-73.1); Platelet Count Result 347 k/mm3 (150-375); Red Cell Distribution Width 21.4 % (11.5-14.5); White Blood Count 16.7 K/mm3 (4.5-10.0)
[2023-08-08 05:36] LABS: Alanine Aminotransferase 12 U/L (6-35); Albumin Level 3.2 g/dL (3.5-5.1); Alkaline Phosphatase 89 U/L (38-126); Anion Gap 6 mmol/L (8-16); Aspartate Amino Transferase 13 U/L (14-36); Bilirubin,Total 0.5 mg/dL (0.2-1.3); Blood Urea Nitrogen 37 mg/dL (7-17); Calcium 8.1 mg/dL (8.4-10.2); Carbon Dioxide 24 mmol/L (22-30); Chloride 110 mmol/L (98-107); Estimated Glomerular Filt Rate 39; Glucose 90 mg/dL (65-110); Magnesium 1.9 mg/dL (1.6-2.3); Potassium 4.3 mmol/L (3.4-5.0); Sodium 140 mmol/L (137-145)
[2023-08-08 07:16] LABS: Large Platelets Present; Ovalocytes 1+ (NORMAL); Platelet Estimate Adequate (Adequate)
[2023-08-08 07:17] LABS: Burr Cells 2+ (NORMAL); Poikilocytosis 2+ (NORMAL); Schistocytes None Seen (NORMAL)
[2023-08-08] MEDS: ALBUTEROL SULFATE (*SP) AEROSOL 1 PUFF 2 PUFF INHALATION ×2 (07:44→13:38)
[2023-08-08] MEDS: POTASSIUM CHLORIDE 20 MEQ PACKET (FOR LIQUID) PO (10:19)
[2023-08-08] MEDS: LACTULOSE 20 GM/30 ML UDC PO ×2 (10:19→16:35)
[2023-08-08] MEDS: polyethylene glycoL 3350 17 GM POWD.PACK PO (10:19)
[2023-08-08] MEDS: MEGESTROL ACETATE (*CHEMO) ORAL SUSP 40 MG/ML SYR 400 MG PO ×2 (10:20→16:35)
[2023-08-08] MEDS: guaiFENesin 12 HR 600 MG TABCR PO ×2 (10:20→20:57)
[2023-08-08] MEDS: PANTOPRAZOLE SODIUM IV 40 MG VIAL IV PUSH ×2 (10:20→20:58)
[2023-08-08] MEDS: APIXABAN 5 MG TABLET PO ×2 (10:20→20:57)
[2023-08-08] MEDS: MULTIVITAMINS /C LUTEIN (CENTRUM SILVER) TABLET *BKC 1 TAB PO (10:20)
[2023-08-08] MEDS: CHOLECALCIFEROL 1,000 UNITS TABLET 1000 UNITS PO (10:20)
[2023-08-08] MEDS: FAMOTIDINE 20 MG TABLET PO ×2 (10:20→16:35)
[2023-08-08] MEDS: HYDROCORTISONE 5 MG TABLET PO (10:20)
[2023-08-08] MEDS: METOPROLOL TARTRATE 50 MG TAB PO ×2 (10:20→20:57)
[2023-08-08] MEDS: PREGABALIN (*CRX) 75 MG CAPSULE PO ×2 (10:20→16:35)
--- NOTE | 2023-08-08 14:26 | PM.IMPN ---
Progress Note: A&P Assessment and Plan (1) Acute on chronic anemia: Code(s): D64.9 - Anemia, unspecified Status: Acute Assessment and Plan: Trend Hb with goal >7 (2) GI bleed: Code(s): K92.2 - Gastrointestinal hemorrhage, unspecified Status: Acute Assessment and Plan: Monitor Hb; stools for GIB (3) Abnormal urinalysis: Code(s): R82.90 - Unspecified abnormal findings in urine Status: Acute Assessment and Plan: Hematuria; still present (4) Abnormal chest x-ray: Code(s): R93.89 - Abnormal findings on diagnostic imaging of other specified body structures Status: Acute (5) Pulmonary embolism: Code(s): I26.99 - Other pulmonary embolism without acute cor pulmonale Status: Acute (6) Acute kidney injury: Code(s): N17.9 - Acute kidney failure, unspecified Status: Acute (7) Elevated d-dimer: Code(s): R79.89 - Other specified abnormal findings of blood chemistry Status: Acute (8) Chronic anemia: Code(s): D64.9 - Anemia, unspecified Status: Acute (9) Chronic respiratory failure with hypoxia, on home oxygen therapy: Code(s): J96.11 - Chronic respiratory failure with hypoxia; Z99.81 - Dependence on supplemental oxygen Status: Acute (10) Chronic obstructive pulmonary disease: Code(s): J44.9 - Chronic obstructive pulmonary disease, unspecified Status: Acute Plan # Pulmonary embolism: V/Q scan shows high probability for pulmonary embolism; lower extremity venous Doppler ultrasound unable to to rule out DVT. May need IVC filter is no source of bleed not traced. CT PE shows acute and subacute PE in posterior segment of GRABIEL. no R heart strain. small clot burden. perfusion defects in RLL gone. 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 Renal dosing H&H remains stable on anticoagulation now # COVID-19: Patient is at high risk for complication though she cannot receive remdesivir at this time given her acute kidney injury. continue Dexamethasone mucinex Finish remdesivir course and finished dexamethasone course she is off oxygen # RADHA: Patient has an acute on chronic kidney injury. US renal showed left kidney stones with hydronephrosis Cr 2 from 2.1 Urology and nephrology consulted Attempted removal of the left ureteral stent which was unsuccessful retained encrusted left stent, she will need lithotripsy when off anticoagulation. 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 Feliberto Martinez at [facility] in 2021. This is stable now and back to her baseline # Chronic obstructive pulmonary disease: No acute issues.? Continue maintenance inhalers. Bronchodilators q.6 hours if needed. # Chronic anemia: with iron deficiency Isat 10, started on Venofer 400/1000mg acue on chronic anemia needin trasnfusion. GI consulted. fobt nega,no reprt of gib. # Abnormal chest x-ray: ?Chest x-ray shows airspace opacity than left lower lung zone which could be atelectasis/scarring or less likely pneumonia. WBC count is elevated thus will treat for possible pneumonia with antibioticisa d completed the course Recheck chest x-ray for leukocytosis # Abnormal urinalysis: Urine looks contaminated but is positive for bacteria and leukocyte esterase. Continue antibiotics, urine culture no growth UA dirty again. Recent instrumentation Will reinitiate ceftriaxone Sent for urine culture # GI bleed: ?Possible GI bleed in the background of Iron deficiency anemia, severe anemia setting in on Anticoagulation FOBT pending Protonix GI consulted 07/30: abd distention but having bm's. f/u XR. she is having bm's 07/31: no gi bleed. # DVT Proph: eliquis # pinkish urine maybe some hematuria. UA with hematuria as well as WBC present. Leukocytosis noted on CBC. Will restart ceftriaxone sent for urine culture Time Spent With Patient Time with patient: 25 - 35 minutes Subjective Date/time
[2023-08-08] MEDS: CITALOPRAM HYDROBROMIDE 20 MG TABLET PO (20:57)
[2023-08-08] MEDS: traZODone HCL 50 MG TABLET PO (20:57)
[2023-08-09] VITALS (13 sets, daily range): BP systolic 113–147; BP diastolic 73–82; PULSE 61–78; RESP 18; TEMP 36.7–36.8; O2SAT 98–100
[2023-08-09 05:10] LABS: Basophils Percent Auto 0.2 % (0.2-1.2); Eosinophils Absolute Auto 0.2 K/mm3 (0-0.3); Eosinophils Percent Auto 1.5 % (0-4.4); Hematocrit 31.4 % (37.0-47.0); Immature Granulocyte Absolute 0.15 K/mm3 (0.00-0.031); Immature Platelet Fraction Pct 4.9 % (0.9-11.2); Lymphocytes Absolute Auto 1.85 K/mm3 (0.9-3.2); Lymphocytes Percent Auto 12.4 % (18.3-44.2); Mean Corpuscular HGB Conc 28.7 g/dl (32-36); Mean Corpuscular Hemoglobin 25.1 pg (26-34); Mean Corpuscular Volume 87.7 fl (80-100); Mean Platelet Volume 12.4 fl (7.4-10.4); Monocytes Absolute Auto 1.1 K/mm3 (0.1-0.6); Monocytes Percent Auto 7.3 % (2.6-8.5); Neutrophils Absolute Auto 11.5 K/mm3 (1.3-6.7); Neutrophils Percent Auto 77.6 % (45.5-73.1); Platelet Count Result 248 k/mm3 (150-375); Red Blood Count 3.58 M/mm3 (4.2-5.4); Red Cell Distribution Width 22.8 % (11.5-14.5); White Blood Count 14.9 K/mm3 (4.5-10.0)
[2023-08-09 05:24] LABS: Alanine Aminotransferase 15 U/L (6-35); Alkaline Phosphatase 82 U/L (38-126); Anion Gap 8 mmol/L (8-16); Aspartate Amino Transferase 18 U/L (14-36); Bilirubin,Total 0.5 mg/dL (0.2-1.3); Blood Urea Nitrogen 32 mg/dL (7-17); Calcium 8.6 mg/dL (8.4-10.2); Carbon Dioxide 21 mmol/L (22-30); Chloride 110 mmol/L (98-107); Estimated Glomerular Filt Rate 39; Glucose 87 mg/dL (65-110); Potassium 4.4 mmol/L (3.4-5.0); Sodium 139 mmol/L (137-145)
[2023-08-09 05:52] LABS: Anisocytosis 1+ (NORMAL); Platelet Estimate Adequate (Adequate)
[2023-08-09 05:53] LABS: Acanthocytes 3+ (NORMAL); Crenated RBC 1+ (NORMAL); Schistocytes 1+ (NORMAL)
[2023-08-09] MEDS: CHOLECALCIFEROL 1,000 UNITS TABLET 1000 UNITS PO (08:18)
[2023-08-09] MEDS: guaiFENesin 12 HR 600 MG TABCR PO ×2 (08:18→21:25)
[2023-08-09] MEDS: MULTIVITAMINS /C LUTEIN (CENTRUM SILVER) TABLET *BKC 1 TAB PO (08:19)
[2023-08-09] MEDS: FAMOTIDINE 20 MG TABLET PO ×2 (08:19→16:39)
[2023-08-09] MEDS: METOPROLOL TARTRATE 50 MG TAB PO ×2 (08:19→21:25)
[2023-08-09] MEDS: PREGABALIN (*CRX) 75 MG CAPSULE PO ×2 (08:19→16:39)
[2023-08-09] MEDS: HYDROCORTISONE 5 MG TABLET PO (08:20)
[2023-08-09] MEDS: APIXABAN 5 MG TABLET PO ×2 (08:20→21:25)
[2023-08-09] MEDS: POTASSIUM CHLORIDE 20 MEQ PACKET (FOR LIQUID) PO (08:20)
[2023-08-09] MEDS: MEGESTROL ACETATE (*CHEMO) ORAL SUSP 40 MG/ML SYR 400 MG PO ×2 (08:24→16:39)
[2023-08-09] MEDS: LACTULOSE 20 GM/30 ML UDC PO ×2 (08:24→16:39)
[2023-08-09] MEDS: PANTOPRAZOLE SODIUM IV 40 MG VIAL IV PUSH ×2 (08:24→21:31)
--- NOTE | 2023-08-09 17:09 | PM.IMPN ---
Progress Note: A&P Assessment and Plan (1) Acute on chronic anemia: Code(s): D64.9 - Anemia, unspecified Status: Acute Assessment and Plan: Trend Hb with goal >7 (2) Pulmonary embolism: Code(s): I26.99 - Other pulmonary embolism without acute cor pulmonale Status: Acute Assessment and Plan: on Eliquis; PRN supplemental oxygen (3) Acute kidney injury: Code(s): N17.9 - Acute kidney failure, unspecified Status: Acute Assessment and Plan: Improving (4) Chronic anemia: Code(s): D64.9 - Anemia, unspecified Status: Acute Assessment and Plan: Complicated by anemia; goal hb >7 (5) Chronic respiratory failure with hypoxia, on home oxygen therapy: Code(s): J96.11 - Chronic respiratory failure with hypoxia; Z99.81 - Dependence on supplemental oxygen Status: Acute (6) Chronic obstructive pulmonary disease: Code(s): J44.9 - Chronic obstructive pulmonary disease, unspecified Status: Acute (7) Infection due to ESBL-producing Escherichia coli: Code(s): A49.8 - Other bacterial infections of unspecified site; Z16.12 - Extended spectrum beta lactamase (ESBL) resistance Status: Acute (8) Hematuria: Code(s): R31.9 - Hematuria, unspecified Status: Acute (9) Dementia: Code(s): F03.90 - Unspecified dementia, unspecified severity, without behavioral disturbance, psychotic disturbance, mood disturbance, and anxiety Status: Acute (10) Retained ureteral stent: Code(s): Z96.0 - Presence of urogenital implants Status: Inactive (11) Urinary tract infection: Qualifiers: Urinary tract infection type: site unspecified Hematuria presence: with hematuria Qualified Code(s): N39.0 - Urinary tract infection, site not specified; R31.9 - Hematuria, unspecified Code(s): N39.0 - Urinary tract infection, site not specified Status: Acute Plan UTI: On Ertapenem for ESBL, E. Coli Hematuria. likely 2/2 Eliquis with encrusted stent; Urology on board Sedentary status; chronic...poor candidate for therapy. Turn [id number] GERD. on PPI COPD. Resume albuterol On Eliquis for Pulmonary embolism Cognitive impairment: Safety precautions Encrusted ureteral stent: Urology: Very difficult situation with a retained / encrusted left stent.?At some point she will need lithotripsy in order to remove and replace the stent.? This will be complicated by her need for anticoagulation. Disposition: From [facility] Time Spent With Patient Time with patient: 25 - 35 minutes Subjective Date/time seen: 08/09/23 17:09 Interval history: Patient feels okay. Labs reveal worsening leukocytosis. Urinalysis dirty. Denies any abdominal pain nausea vomiting. Review of Systems Review of Systems: no other complaints All systems reviewed & are unremarkable except as noted in HPI and below Constitutional: Constitutional: Reports fatigue Cardiovascular: Cardiovascular: Reports chest pain Respiratory: Respiratory: Reports cough Musculoskeletal: Musculoskeletal: Reports abnormal gait Neurologic: Reports abnormal gait Psychiatric: Psychiatric: Reports no additional psychiatric complaints and Denies suicidal ideation Endocrine: Endocrine: Reports fatigue Exam Narrative: General:?Chronically ill-appearing female in the semi-Car position in bed. HEENT:??Normocephalic, atraumatic.? PERRL, EOMI. Neck:??Supple. No nuchal rigidity.? No lymphadenopathy. Respiratory: No respiratory distress.? She is speaking in full sentences. Lung sounds are diminished at the right base. Scattered, coarse rhonchi. does not have a good cough. Cardiovascular:?regular rate and rhythm, with normal S1-S2. Gastrointestinal:?abd is distended, and ttp in the Lower quadrants Genitourinary:? Uric in place with pinkish urine in the urine bag Skin:??Warm and dry. Generalized pallor. There is skin breakdown and hyperpigmentation
[2023-08-09] MEDS: ERTAPENEM 1 GM/NS 50 ML 1 GM/50 ML BAG IVPB (17:28)
[2023-08-09] MEDS: CITALOPRAM HYDROBROMIDE 20 MG TABLET PO (21:25)
[2023-08-09] MEDS: traZODone HCL 50 MG TABLET PO (21:31)
[2023-08-10] VITALS (11 sets, daily range): BP systolic 108–169; BP diastolic 70–89; PULSE 67–89; RESP 16–18; TEMP 36.4–36.9; O2SAT 94–99
[2023-08-10] MEDS: HYDROCORTISONE 5 MG TABLET PO (08:18)
[2023-08-10] MEDS: PANTOPRAZOLE SODIUM IV 40 MG VIAL IV PUSH ×2 (08:18→20:25)
[2023-08-10] MEDS: MULTIVITAMINS /C LUTEIN (CENTRUM SILVER) TABLET *BKC 1 TAB PO (08:18)
[2023-08-10] MEDS: APIXABAN 5 MG TABLET PO ×2 (08:18→20:21)
[2023-08-10] MEDS: LACTULOSE 20 GM/30 ML UDC PO ×2 (08:18→16:13)
[2023-08-10] MEDS: CHOLECALCIFEROL 1,000 UNITS TABLET 1000 UNITS PO (08:18)
[2023-08-10] MEDS: guaiFENesin 12 HR 600 MG TABCR PO ×2 (08:18→20:22)
[2023-08-10] MEDS: PREGABALIN (*CRX) 75 MG CAPSULE PO ×2 (08:18→16:13)
[2023-08-10] MEDS: MEGESTROL ACETATE (*CHEMO) ORAL SUSP 40 MG/ML SYR 400 MG PO ×2 (08:18→16:13)
[2023-08-10] MEDS: METOPROLOL TARTRATE 50 MG TAB PO ×2 (08:19→20:22)
[2023-08-10] MEDS: FAMOTIDINE 20 MG TABLET PO ×2 (08:19→16:13)
[2023-08-10] MEDS: POTASSIUM CHLORIDE 20 MEQ PACKET (FOR LIQUID) PO (08:19)
[2023-08-10 10:12] LABS: Basophils Percent Auto 0.1 % (0.2-1.2); Eosinophils Absolute Auto 0.3 K/mm3 (0-0.3); Eosinophils Percent Auto 1.8 % (0-4.4); Hematocrit 32.6 % (37.0-47.0); Hemoglobin 9.3 g/dL (12.0-15.0); Immature Granulocyte Percent A 0.7 % (0-0.5); Lymphocytes Absolute Auto 1.86 K/mm3 (0.9-3.2); Lymphocytes Percent Auto 12.5 % (18.3-44.2); Mean Corpuscular HGB Conc 28.5 g/dl (32-36); Monocytes Absolute Auto 0.7 K/mm3 (0.1-0.6); Monocytes Percent Auto 4.8 % (2.6-8.5); Neutrophils Absolute Auto 11.9 K/mm3 (1.3-6.7); Neutrophils Percent Auto 80.1 % (45.5-73.1); Platelet Count Result 372 k/mm3 (150-375); Red Blood Count 3.88 M/mm3 (4.2-5.4); Red Cell Distribution Width 21.9 % (11.5-14.5); White Blood Count 14.9 K/mm3 (4.5-10.0)
[2023-08-10 10:24] LABS: Alanine Aminotransferase 18 U/L (6-35); Albumin Level 3.3 g/dL (3.5-5.1); Alkaline Phosphatase 92 U/L (38-126); Anion Gap 10 mmol/L (8-16); Aspartate Amino Transferase 22 U/L (14-36); Bilirubin,Total 0.4 mg/dL (0.2-1.3); Blood Urea Nitrogen 33 mg/dL (7-17); Calcium 8.8 mg/dL (8.4-10.2); Carbon Dioxide 19 mmol/L (22-30); Chloride 112 mmol/L (98-107); Estimated Glomerular Filt Rate 36; Glucose 141 mg/dL (65-110); Potassium 4.1 mmol/L (3.4-5.0); Sodium 141 mmol/L (137-145)
[2023-08-10 10:46] LABS: Iron 68 ug/dL (37-170)
[2023-08-10 10:56] LABS: Percent Iron Saturation 31 % (20-50)
[2023-08-10 11:00] LABS: Platelet Estimate Adequate (Adequate)
[2023-08-10 11:01] LABS: Anisocytosis 1+ (NORMAL); Hypochromasia 1+ (NORMAL); Ovalocytes 1+ (NORMAL); Schistocytes None Seen (NORMAL)
--- NOTE | 2023-08-10 14:21 | PM.IMPN ---
Progress Note: A&P Assessment and Plan (1) Acute on chronic anemia: Code(s): D64.9 - Anemia, unspecified Status: Acute Assessment and Plan: Trend Hb with goal >7 (2) Pulmonary embolism: Code(s): I26.99 - Other pulmonary embolism without acute cor pulmonale Status: Acute Assessment and Plan: on Eliquis; PRN supplemental oxygen (3) Acute kidney injury: Code(s): N17.9 - Acute kidney failure, unspecified Status: Acute Assessment and Plan: Improving (4) Chronic anemia: Code(s): D64.9 - Anemia, unspecified Status: Acute Assessment and Plan: Complicated by anemia; goal hb >7 (5) Chronic respiratory failure with hypoxia, on home oxygen therapy: Code(s): J96.11 - Chronic respiratory failure with hypoxia; Z99.81 - Dependence on supplemental oxygen Status: Acute (6) Chronic obstructive pulmonary disease: Code(s): J44.9 - Chronic obstructive pulmonary disease, unspecified Status: Acute (7) Infection due to ESBL-producing Escherichia coli: Code(s): A49.8 - Other bacterial infections of unspecified site; Z16.12 - Extended spectrum beta lactamase (ESBL) resistance Status: Acute (8) Hematuria: Code(s): R31.9 - Hematuria, unspecified Status: Acute (9) Dementia: Code(s): F03.90 - Unspecified dementia, unspecified severity, without behavioral disturbance, psychotic disturbance, mood disturbance, and anxiety Status: Acute (10) Retained ureteral stent: Code(s): Z96.0 - Presence of urogenital implants Status: Inactive (11) Urinary tract infection: Qualifiers: Hematuria presence: with hematuria Urinary tract infection type: site unspecified Qualified Code(s): N39.0 - Urinary tract infection, site not specified; R31.9 - Hematuria, unspecified Code(s): N39.0 - Urinary tract infection, site not specified Status: Acute Plan UTI: On day 2 Ertapenem for ESBL, E. Coli Hematuria. likely 2/2 Eliquis with encrusted stent; Urology on board Sedentary status; chronic...poor candidate for therapy. Turn d0zthhy GERD. on PPI COPD. Resume albuterol On Eliquis for Pulmonary embolism Cognitive impairment: Safety precautions Encrusted ureteral stent: Urology: Very difficult situation with a retained / encrusted left stent.?At some point she will need lithotripsy in order to remove and replace the stent.? This will be complicated by her need for anticoagulation. Disposition: From [facility] Lithotripsy when urology deems ready. Subjective Date/time seen: 08/10/23 14:21 Interval history: Patient comfortable on bedside, however was not cooperative. Review of Systems Review of Systems: no other complaints All systems reviewed & are unremarkable except as noted in HPI and below Constitutional: Constitutional: Reports fatigue Cardiovascular: Cardiovascular: Reports chest pain Respiratory: Respiratory: Reports cough Musculoskeletal: Musculoskeletal: Reports abnormal gait Neurologic: Reports abnormal gait Psychiatric: Psychiatric: Reports no additional psychiatric complaints and Denies suicidal ideation Endocrine: Endocrine: Reports fatigue Exam Narrative: General:?Chronically ill-appearing female in the semi-Car position in bed. HEENT:??Normocephalic, atraumatic.? PERRL, EOMI. Neck:??Supple. No nuchal rigidity.? No lymphadenopathy. Respiratory: No respiratory distress.? She is speaking in full sentences. Lung sounds are diminished at the right base. Scattered, coarse rhonchi. does not have a good cough. Cardiovascular:?regular rate and rhythm, with normal S1-S2. Gastrointestinal:?abd is distended, and ttp in the Lower quadrants Genitourinary:? Uric in place with pinkish urine in the urine bag Skin:??Warm and dry. Generalized pallor. There is skin breakdown and hyperpigmentation of the right heel. Open wound on the buttock without evidence of acute infec
[2023-08-10] MEDS: ERTAPENEM 1 GM/NS 50 ML 1 GM/50 ML BAG IVPB (16:13)
[2023-08-10] MEDS: traZODone HCL 50 MG TABLET PO (20:22)
[2023-08-10] MEDS: CITALOPRAM HYDROBROMIDE 20 MG TABLET PO (20:22)
[2023-08-11] VITALS (11 sets, daily range): BP systolic 100–118; BP diastolic 70–74; PULSE 70–98; RESP 16–18; TEMP 36.6–37.1; O2SAT 97–99
[2023-08-11 05:11] LABS: Basophils Percent Auto 0.2 % (0.2-1.2); Eosinophils Absolute Auto 0.3 K/mm3 (0-0.3); Eosinophils Percent Auto 2.2 % (0-4.4); Hematocrit 32.3 % (37.0-47.0); Hemoglobin 9.2 g/dL (12.0-15.0); Immature Granulocyte Percent A 0.7 % (0-0.5); Lymphocytes Absolute Auto 1.96 K/mm3 (0.9-3.2); Lymphocytes Percent Auto 14.6 % (18.3-44.2); Mean Corpuscular HGB Conc 28.5 g/dl (32-36); Mean Corpuscular Hemoglobin 24.8 pg (26-34); Mean Corpuscular Volume 87.1 fl (80-100); Monocytes Absolute Auto 0.9 K/mm3 (0.1-0.6); Monocytes Percent Auto 6.6 % (2.6-8.5); Neutrophils Absolute Auto 10.1 K/mm3 (1.3-6.7); Neutrophils Percent Auto 75.7 % (45.5-73.1); Platelet Count Result 361 k/mm3 (150-375); Red Blood Count 3.71 M/mm3 (4.2-5.4); Red Cell Distribution Width 22.6 % (11.5-14.5); White Blood Count 13.4 K/mm3 (4.5-10.0)
[2023-08-11 05:26] LABS: Alanine Aminotransferase 21 U/L (6-35); Albumin Level 3.4 g/dL (3.5-5.1); Alkaline Phosphatase 96 U/L (38-126); Anion Gap 12 mmol/L (8-16); Aspartate Amino Transferase 20 U/L (14-36); Bilirubin,Total 0.4 mg/dL (0.2-1.3); Blood Urea Nitrogen 37 mg/dL (7-17); Calcium 8.8 mg/dL (8.4-10.2); Carbon Dioxide 18 mmol/L (22-30); Chloride 110 mmol/L (98-107); Estimated Glomerular Filt Rate 36; Glucose 98 mg/dL (65-110); Potassium 4.6 mmol/L (3.4-5.0); Sodium 140 mmol/L (137-145)
[2023-08-11 05:55] LABS: Anisocytosis 2+ (NORMAL); Platelet Estimate Adequate (Adequate); Schistocytes Rare (NORMAL); Target Cells 1+ (NORMAL)
[2023-08-11 05:56] LABS: Ovalocytes 1+ (NORMAL)
[2023-08-11 05:57] LABS: Hypochromasia 2+ (NORMAL); Tear Drop Cells 1+ (NORMAL)
[2023-08-11] MEDS: POTASSIUM CHLORIDE 20 MEQ PACKET (FOR LIQUID) PO (08:14)
[2023-08-11] MEDS: MULTIVITAMINS /C LUTEIN (CENTRUM SILVER) TABLET *BKC 1 TAB PO (08:14)
[2023-08-11] MEDS: HYDROCORTISONE 5 MG TABLET PO (08:14)
[2023-08-11] MEDS: guaiFENesin 12 HR 600 MG TABCR PO ×2 (08:14→20:50)
[2023-08-11] MEDS: METOPROLOL TARTRATE 50 MG TAB PO ×2 (08:15→20:50)
[2023-08-11] MEDS: APIXABAN 5 MG TABLET PO ×2 (08:15→20:50)
[2023-08-11] MEDS: CHOLECALCIFEROL 1,000 UNITS TABLET 1000 UNITS PO (08:15)
[2023-08-11] MEDS: polyethylene glycoL 3350 17 GM POWD.PACK PO (08:15)
[2023-08-11] MEDS: LACTULOSE 20 GM/30 ML UDC PO ×2 (08:15→16:18)
[2023-08-11] MEDS: FAMOTIDINE 20 MG TABLET PO ×2 (08:15→16:18)
[2023-08-11] MEDS: PREGABALIN (*CRX) 75 MG CAPSULE PO ×2 (08:15→16:19)
[2023-08-11] MEDS: MEGESTROL ACETATE (*CHEMO) ORAL SUSP 40 MG/ML SYR 400 MG PO ×2 (08:15→16:18)
[2023-08-11] MEDS: PANTOPRAZOLE SODIUM IV 40 MG VIAL IV PUSH ×2 (08:15→22:19)
--- NOTE | 2023-08-11 13:33 | PM.IMPN ---
Progress Note: A&P Assessment and Plan (1) Acute on chronic anemia: Code(s): D64.9 - Anemia, unspecified Status: Acute (2) Pulmonary embolism: Code(s): I26.99 - Other pulmonary embolism without acute cor pulmonale Status: Acute (3) Acute kidney injury: Code(s): N17.9 - Acute kidney failure, unspecified Status: Acute (4) Chronic anemia: Code(s): D64.9 - Anemia, unspecified Status: Acute (5) Chronic respiratory failure with hypoxia, on home oxygen therapy: Code(s): J96.11 - Chronic respiratory failure with hypoxia; Z99.81 - Dependence on supplemental oxygen Status: Acute (6) Chronic obstructive pulmonary disease: Code(s): J44.9 - Chronic obstructive pulmonary disease, unspecified Status: Acute (7) Infection due to ESBL-producing Escherichia coli: Code(s): A49.8 - Other bacterial infections of unspecified site; Z16.12 - Extended spectrum beta lactamase (ESBL) resistance Status: Acute (8) Hematuria: Code(s): R31.9 - Hematuria, unspecified Status: Acute (9) Dementia: Code(s): F03.90 - Unspecified dementia, unspecified severity, without behavioral disturbance, psychotic disturbance, mood disturbance, and anxiety Status: Acute (10) Retained ureteral stent: Code(s): Z96.0 - Presence of urogenital implants Status: Inactive (11) Urinary tract infection: Qualifiers: Hematuria presence: with hematuria Urinary tract infection type: site unspecified Qualified Code(s): N39.0 - Urinary tract infection, site not specified; R31.9 - Hematuria, unspecified Code(s): N39.0 - Urinary tract infection, site not specified Status: Acute Plan # Pulmonary embolism: V/Q scan shows high probability for pulmonary embolism; lower extremity venous Doppler ultrasound unable to to rule out DVT. May need IVC filter is no source of bleed not traced. CT PE shows acute and subacute PE in posterior segment of GRABIEL. no R heart strain. small clot burden. perfusion defects in RLL gone. Confirms need to be on el[facility] nursing home, perhaps 3 mo.? Renal dosing H&H remains stable on anticoagulation now # COVID-19: Patient is at high risk for complication though she cannot receive remdesivir at this time given her acute kidney injury. continue Dexamethasone mucinex Finish remdesivir course and finished dexamethasone course she is off oxygen # RADHA: Patient has an acute on chronic kidney injury. US renal showed left kidney stones with hydronephrosis Cr 2 from 2.1 Urology and nephrology consulted Attempted removal of the left ureteral stent which was unsuccessful retained encrusted left stent, she will need lithotripsy when off anticoagulation. 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 Feliberto Martinez at [facility] in 2021. This is stable now and back to her baseline # Chronic obstructive pulmonary disease: No acute issues.? Continue maintenance inhalers. Bronchodilators q.6 hours if needed. # Chronic anemia: with iron deficiency Isat 10, started on Venofer 400/1000mg acue on chronic anemia needin trasnfusion. GI consulted. fobt nega,no reprt of gib. # Abnormal chest x-ray: ?Chest x-ray shows airspace opacity than left lower lung zone which could be atelectasis/scarring or less likely pneumonia. WBC count is elevated thus will treat for possible pneumonia with antibioticisa d completed the course Recheck chest x-ray for leukocytosis # Abnormal urinalysis/UTI: Urine looks contaminated but is positive for bacteria and leukocyte esterase. Continue antibiotics, urine culture no growth UA dirty again.? Recent instrumentation Initiated on ceftriaxone. Culture grew ESBL E coli switched to ertapenem D3 ?# GI bleed: ?Possible GI bleed in the background of Iron deficiency anemia, severe anemia setting in on Anticoagulation FOBT pending Protonix GI consulted 07/30: abd distention but having bm's. f/u XR. s
[2023-08-11] MEDS: ERTAPENEM 1 GM/NS 50 ML 1 GM/50 ML BAG IVPB (16:18)
[2023-08-11] MEDS: traZODone HCL 50 MG TABLET PO (20:50)
[2023-08-11] MEDS: CITALOPRAM HYDROBROMIDE 20 MG TABLET PO (20:51)
[2023-08-12] VITALS (11 sets, daily range): BP systolic 105–115; BP diastolic 56–79; PULSE 74–94; RESP 16–18; TEMP 36.1–36.8; O2SAT 97–100
[2023-08-12 06:00] LABS: Basophils Percent Auto 0.2 % (0.2-1.2); Eosinophils Absolute Auto 0.2 K/mm3 (0-0.3); Eosinophils Percent Auto 1.7 % (0-4.4); Hematocrit 31.6 % (37.0-47.0); Immature Granulocyte Absolute 0.08 K/mm3 (0.00-0.031); Immature Granulocyte Percent A 0.6 % (0-0.5); Lymphocytes Absolute Auto 1.89 K/mm3 (0.9-3.2); Mean Corpuscular HGB Conc 28.5 g/dl (32-36); Mean Corpuscular Hemoglobin 24.4 pg (26-34); Mean Corpuscular Volume 85.6 fl (80-100); Mean Platelet Volume 10.7 fl (7.4-10.4); Monocytes Absolute Auto 0.8 K/mm3 (0.1-0.6); Neutrophils Absolute Auto 9.6 K/mm3 (1.3-6.7); Neutrophils Percent Auto 76.5 % (45.5-73.1); Platelet Count Result 335 k/mm3 (150-375); Red Blood Count 3.69 M/mm3 (4.2-5.4); Red Cell Distribution Width 22.4 % (11.5-14.5); White Blood Count 12.6 K/mm3 (4.5-10.0)
[2023-08-12 06:12] LABS: Alanine Aminotransferase 21 U/L (6-35); Albumin Level 3.4 g/dL (3.5-5.1); Alkaline Phosphatase 97 U/L (38-126); Anion Gap 11 mmol/L (8-16); Aspartate Amino Transferase 18 U/L (14-36); Bilirubin,Total 0.4 mg/dL (0.2-1.3); Blood Urea Nitrogen 41 mg/dL (7-17); Calcium 9.1 mg/dL (8.4-10.2); Carbon Dioxide 20 mmol/L (22-30); Chloride 110 mmol/L (98-107); Estimated Glomerular Filt Rate 42; Glucose 97 mg/dL (65-110); Potassium 4.8 mmol/L (3.4-5.0); Sodium 141 mmol/L (137-145)
[2023-08-12 07:16] LABS: Anisocytosis 2+ (NORMAL); Hypochromasia 1+ (NORMAL); Platelet Estimate Adequate (Adequate); Poikilocytosis 1+ (NORMAL); Schistocytes None Seen (NORMAL); Tear Drop Cells 1+ (NORMAL)
[2023-08-12] MEDS: guaiFENesin 12 HR 600 MG TABCR PO ×2 (08:11→20:42)
[2023-08-12] MEDS: CHOLECALCIFEROL 1,000 UNITS TABLET 1000 UNITS PO (08:11)
[2023-08-12] MEDS: polyethylene glycoL 3350 17 GM POWD.PACK PO (08:11)
[2023-08-12] MEDS: APIXABAN 5 MG TABLET PO ×2 (08:11→20:42)
[2023-08-12] MEDS: MULTIVITAMINS /C LUTEIN (CENTRUM SILVER) TABLET *BKC 1 TAB PO (08:11)
[2023-08-12] MEDS: PREGABALIN (*CRX) 75 MG CAPSULE PO ×2 (08:11→16:31)
[2023-08-12] MEDS: METOPROLOL TARTRATE 50 MG TAB PO ×2 (08:11→20:42)
[2023-08-12] MEDS: HYDROCORTISONE 5 MG TABLET PO (08:11)
[2023-08-12] MEDS: POTASSIUM CHLORIDE 20 MEQ PACKET (FOR LIQUID) PO (08:11)
[2023-08-12] MEDS: LACTULOSE 20 GM/30 ML UDC PO ×2 (08:11→16:31)
[2023-08-12] MEDS: FAMOTIDINE 20 MG TABLET PO ×2 (08:11→16:31)
[2023-08-12] MEDS: MEGESTROL ACETATE (*CHEMO) ORAL SUSP 40 MG/ML SYR 400 MG PO ×2 (08:11→16:31)
[2023-08-12] MEDS: PANTOPRAZOLE SODIUM IV 40 MG VIAL IV PUSH ×2 (08:11→20:42)
--- NOTE | 2023-08-12 11:04 | PM.IMPN ---
Progress Note: A&P Assessment and Plan (1) Acute on chronic anemia: Code(s): D64.9 - Anemia, unspecified Status: Acute Assessment and Plan: Stable, continue current to monitor closely. (2) Pulmonary embolism: Code(s): I26.99 - Other pulmonary embolism without acute cor pulmonale Status: Acute Assessment and Plan: Stable, will continue current treatment. (3) Acute kidney injury: Code(s): N17.9 - Acute kidney failure, unspecified Status: Acute Assessment and Plan: Stable, continue current treatment. (4) Chronic anemia: Code(s): D64.9 - Anemia, unspecified Status: Acute Assessment and Plan: Stable and monitor. (5) Chronic respiratory failure with hypoxia, on home oxygen therapy: Code(s): J96.11 - Chronic respiratory failure with hypoxia; Z99.81 - Dependence on supplemental oxygen Status: Acute Assessment and Plan: Stable, continue current treatment. (6) Chronic obstructive pulmonary disease: Code(s): J44.9 - Chronic obstructive pulmonary disease, unspecified Status: Acute Assessment and Plan: Stable, continue current treatment. (7) Infection due to ESBL-producing Escherichia coli: Code(s): A49.8 - Other bacterial infections of unspecified site; Z16.12 - Extended spectrum beta lactamase (ESBL) resistance Status: Acute Assessment and Plan: Continue IV antibiotics. (8) Hematuria: Code(s): R31.9 - Hematuria, unspecified Status: Acute Assessment and Plan: Stable (9) Dementia: Code(s): F03.90 - Unspecified dementia, unspecified severity, without behavioral disturbance, psychotic disturbance, mood disturbance, and anxiety Status: Acute Assessment and Plan: Stable (10) Retained ureteral stent: Code(s): Z96.0 - Presence of urogenital implants Status: Inactive Assessment and Plan: Stable and monitor closely. (11) Urinary tract infection: Qualifiers: Hematuria presence: with hematuria Urinary tract infection type: site unspecified Qualified Code(s): N39.0 - Urinary tract infection, site not specified; R31.9 - Hematuria, unspecified Code(s): N39.0 - Urinary tract infection, site not specified Status: Acute Assessment and Plan: Stable and IV antibiotics. Plan # Pulmonary embolism: V/Q scan shows high probability for pulmonary embolism; lower extremity venous Doppler ultrasound unable to to rule out DVT. May need IVC filter is no source of bleed not traced. CT PE shows acute and subacute PE in posterior segment of GRABIEL. no R heart strain. small clot burden. perfusion defects in RLL gone. 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 Renal dosing H&H remains stable on anticoagulation now # COVID-19: Patient is at high risk for complication though she cannot receive remdesivir at this time given her acute kidney injury. continue Dexamethasone mucinex Finish remdesivir course and finished dexamethasone course she is off oxygen # RADHA: Patient has an acute on chronic kidney injury. US renal showed left kidney stones with hydronephrosis Cr 2 from 2.1 Urology and nephrology consulted Attempted removal of the left ureteral stent which was unsuccessful retained encrusted left stent, she will need lithotripsy when off anticoagulation. 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 Feliberto Martinez at [facility] in 2021. This is stable now and back to her baseline # Chronic obstructive pulmonary disease: No acute issues.? Continue maintenance inhalers. Bronchodilators q.6 hours if needed. # Chronic anemia: with iron deficiency Isat 10, started on Venofer 400/1000mg acue on chronic anemia needin trasnfusion. GI consulted. fobt nega,no reprt of gib. # Abnormal chest x-ray: ?Chest x-ray shows airspace opacity than left lower lung zone which could be atelectasis/scarring or less likely
[2023-08-12] MEDS: ERTAPENEM 1 GM/NS 50 ML 1 GM/50 ML BAG IVPB (16:31)
[2023-08-12] MEDS: traZODone HCL 50 MG TABLET PO (20:42)
[2023-08-12] MEDS: CITALOPRAM HYDROBROMIDE 20 MG TABLET PO (20:42)
[2023-08-13] VITALS (11 sets, daily range): BP systolic 113–142; BP diastolic 70–78; PULSE 72–83; RESP 16–18; TEMP 36.7–37.6; O2SAT 98–100
[2023-08-13] MEDS: PANTOPRAZOLE SODIUM IV 40 MG VIAL IV PUSH ×2 (08:57→20:43)
[2023-08-13] MEDS: HYDROCORTISONE 5 MG TABLET PO (08:57)
[2023-08-13] MEDS: guaiFENesin 12 HR 600 MG TABCR PO ×2 (08:57→20:42)
[2023-08-13] MEDS: CHOLECALCIFEROL 1,000 UNITS TABLET 1000 UNITS PO (08:57)
[2023-08-13] MEDS: LACTULOSE 20 GM/30 ML UDC PO ×2 (08:57→18:13)
[2023-08-13] MEDS: FAMOTIDINE 20 MG TABLET PO ×2 (08:57→18:13)
[2023-08-13] MEDS: APIXABAN 5 MG TABLET PO (08:57)
[2023-08-13] MEDS: PREGABALIN (*CRX) 75 MG CAPSULE PO ×2 (08:57→18:13)
[2023-08-13] MEDS: MULTIVITAMINS /C LUTEIN (CENTRUM SILVER) TABLET *BKC 1 TAB PO (08:57)
[2023-08-13] MEDS: METOPROLOL TARTRATE 50 MG TAB PO ×2 (08:57→20:42)
[2023-08-13] MEDS: POTASSIUM CHLORIDE 20 MEQ PACKET (FOR LIQUID) PO (08:57)
[2023-08-13] MEDS: MEGESTROL ACETATE (*CHEMO) ORAL SUSP 40 MG/ML SYR 400 MG PO ×2 (08:58→18:13)
[2023-08-13 10:23] LABS: Basophils Percent Auto 0.2 % (0.2-1.2); Eosinophils Absolute Auto 0.2 K/mm3 (0-0.3); Eosinophils Percent Auto 1.3 % (0-4.4); Hematocrit 32.2 % (37.0-47.0); Hemoglobin 9.3 g/dL (12.0-15.0); Immature Granulocyte Percent A 0.7 % (0-0.5); Lymphocytes Absolute Auto 2.15 K/mm3 (0.9-3.2); Mean Corpuscular HGB Conc 28.9 g/dl (32-36); Mean Corpuscular Hemoglobin 24.4 pg (26-34); Mean Corpuscular Volume 84.5 fl (80-100); Mean Platelet Volume 10.5 fl (7.4-10.4); Monocytes Absolute Auto 0.7 K/mm3 (0.1-0.6); Monocytes Percent Auto 4.5 % (2.6-8.5); Neutrophils Absolute Auto 11.3 K/mm3 (1.3-6.7); Neutrophils Percent Auto 78.3 % (45.5-73.1); Platelet Count Result 321 k/mm3 (150-375); Red Blood Count 3.81 M/mm3 (4.2-5.4); Red Cell Distribution Width 22.5 % (11.5-14.5); White Blood Count 14.4 K/mm3 (4.5-10.0)
[2023-08-13 10:35] LABS: Alanine Aminotransferase 21 U/L (6-35); Albumin Level 3.5 g/dL (3.5-5.1); Alkaline Phosphatase 100 U/L (38-126); Anion Gap 13 mmol/L (8-16); Aspartate Amino Transferase 15 U/L (14-36); Bilirubin,Total 0.4 mg/dL (0.2-1.3); Blood Urea Nitrogen 47 mg/dL (7-17); Calcium 8.8 mg/dL (8.4-10.2); Carbon Dioxide 18 mmol/L (22-30); Chloride 110 mmol/L (98-107); Estimated Glomerular Filt Rate 36; Glucose 140 mg/dL (65-110); Potassium 4.7 mmol/L (3.4-5.0); Sodium 141 mmol/L (137-145)
[2023-08-13 10:53] LABS: Anisocytosis 2+ (NORMAL); Burr Cells 1+ (NORMAL); Hypochromasia 1+ (NORMAL); Ovalocytes 1+ (NORMAL); Platelet Estimate Adequate (Adequate); Poikilocytosis 1+ (NORMAL); Schistocytes None Seen (NORMAL)
--- NOTE | 2023-08-13 13:53 | PCNFU ---
Nutrition Follow-Up Complete: Moderate protein calorie malnutrition related to inadequate energy intake with increased nutrient needs as evidenced by significant weight loss of -18% x 6 months, increased needs for multiple areas of wound healing, insufficient po intake Increased nutrient needs related to altered skin integrity as evidenced by noted pressure injuries Goal: PO intake 75% or greater for meals and supplements - Goal is being met Pt current nutrition is Heart healthy diet, soft & bite sized level 6, Ensure Compact BID for additional 220 kcal and 9 g protein, Maged BID for additional 2.5 g protein, 90 kcal, arginine and gluatamine to support wound healing. Nutrition recommendation: Continue with current nutrition care plan. Agree with orders. Last recorded weight is 64 kg. Bowel Motility: +1 BM 08/13 Labs Reviewed: Hgb 9.0, Hct 31.6, Alb 3.4, GFR 42, BUN 41, Cre 1.3 Meds Noted: Pepcid, megace, protonix Skin: Stage III R heel, St III BL ischium Additional Notes: Intakes have improved to 75-100% meals and Ensure. Agree with current orders Monitor diet order, intake, wt, labs, skin. Follow up in 5 days.
--- NOTE | 2023-08-13 17:18 | PM.IMPN ---
Progress Note: A&P Assessment and Plan (1) Infection due to ESBL-producing Escherichia coli: Code(s): A49.8 - Other bacterial infections of unspecified site; Z16.12 - Extended spectrum beta lactamase (ESBL) resistance Status: Acute (2) Hematuria: Code(s): R31.9 - Hematuria, unspecified Status: Acute (3) Acute on chronic anemia: Code(s): D64.9 - Anemia, unspecified Status: Acute (4) Pulmonary embolism: Code(s): I26.99 - Other pulmonary embolism without acute cor pulmonale Status: Acute (5) Dementia: Code(s): F03.90 - Unspecified dementia, unspecified severity, without behavioral disturbance, psychotic disturbance, mood disturbance, and anxiety Status: Acute (6) Abnormal urinalysis: Code(s): R82.90 - Unspecified abnormal findings in urine Status: Acute (7) Abnormal chest x-ray: Code(s): R93.89 - Abnormal findings on diagnostic imaging of other specified body structures Status: Acute (8) Acute kidney injury: Code(s): N17.9 - Acute kidney failure, unspecified Status: Acute (9) Elevated d-dimer: Code(s): R79.89 - Other specified abnormal findings of blood chemistry Status: Acute (10) Chronic anemia: Code(s): D64.9 - Anemia, unspecified Status: Acute (11) Chronic respiratory failure with hypoxia, on home oxygen therapy: Code(s): J96.11 - Chronic respiratory failure with hypoxia; Z99.81 - Dependence on supplemental oxygen Status: Acute (12) Chronic obstructive pulmonary disease: Code(s): J44.9 - Chronic obstructive pulmonary disease, unspecified Status: Acute (13) Pneumonia: Code(s): J18.9 - Pneumonia, unspecified organism Status: Acute (14) S/P ureteral stent placement: Code(s): Z96.0 - Presence of urogenital implants Status: Acute Plan # Pulmonary embolism: V/Q scan shows high probability for pulmonary embolism; lower extremity venous Doppler ultrasound unable to to rule out DVT. May need IVC filter is no source of bleed not traced. CT PE shows acute and subacute PE in posterior segment of GRABIEL. no R heart strain. small clot burden. perfusion defects in RLL gone. 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 Renal dosing H&H remains stable on anticoagulation now 08/13: Switch pt to heparin drip in light of potential surgery on Sunday. # COVID-19: Patient is at high risk for complication though she cannot receive remdesivir at this time given her acute kidney injury. continue Dexamethasone mucinex Finish remdesivir course and finished dexamethasone course she is off oxygen 08/13: resolved # RADHA: Patient has an acute on chronic kidney injury. US renal showed left kidney stones with hydronephrosis Cr 2 from 2.1 Urology and nephrology consulted Attempted removal of the left ureteral stent which was unsuccessful retained encrusted left stent, she will need lithotripsy when off anticoagulation. 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 Feliberto Martinez at [facility] in 2021. This is stable now and back to her baseline 08/13: Still has RADHA from infected stent. Plan for removal of stent with holding heparin pre-op. still has wbc of ~ 15 # Chronic obstructive pulmonary disease: No acute issues.? Continue maintenance inhalers. Bronchodilators q.6 hours if needed. # Chronic anemia: with iron deficiency Isat 10, started on Venofer 400/1000mg acue on chronic anemia needin trasnfusion. GI consulted. fobt nega,no reprt of gib. # Abnormal chest x-ray: ?Chest x-ray shows airspace opacity than left lower lung zone which could be atelectasis/scarring or less likely pneumonia. WBC count is elevated thus will treat for possible pneumonia with antibiotic is a completed the course Recheck chest x-ray for leukocytosis 08/13: most likely a urinary source for elevated wbc # Abnormal urinalysis/UTI:/ ESBL Urine looks contaminated but is p
[2023-08-13] MEDS: ERTAPENEM 1 GM/NS 50 ML 1 GM/50 ML BAG IVPB (18:12)
[2023-08-13 18:35] LABS: Basophils Percent Auto 0.3 % (0.2-1.2); Eosinophils Absolute Auto 0.1 K/mm3 (0-0.3); Eosinophils Percent Auto 0.9 % (0-4.4); Hematocrit 29.3 % (37.0-47.0); Hemoglobin 8.5 g/dL (12.0-15.0); Immature Granulocyte Absolute 0.07 K/mm3 (0.00-0.031); Immature Granulocyte Percent A 0.6 % (0-0.5); Lymphocytes Absolute Auto 1.61 K/mm3 (0.9-3.2); Mean Corpuscular Hemoglobin 24.4 pg (26-34); Mean Platelet Volume 10.4 fl (7.4-10.4); Monocytes Absolute Auto 0.7 K/mm3 (0.1-0.6); Neutrophils Absolute Auto 9.8 K/mm3 (1.3-6.7); Neutrophils Percent Auto 79.2 % (45.5-73.1); Platelet Count Result 313 k/mm3 (150-375); Red Blood Count 3.49 M/mm3 (4.2-5.4); Red Cell Distribution Width 22.1 % (11.5-14.5); White Blood Count 12.4 K/mm3 (4.5-10.0)
[2023-08-13 18:45] LABS: INR 1.4; Prothrombin Time 17.7 Seconds (11.1-14.7)
[2023-08-13 18:46] LABS: Partial Thromboplastin Time 32.2 SECONDS (22.3-36.8)
[2023-08-13 19:42] LABS: Hypochromasia 1+ (NORMAL); Platelet Estimate Adequate (Adequate); Schistocytes None Seen (NORMAL)
[2023-08-13 19:43] LABS: Anisocytosis 3+ (NORMAL)
[2023-08-13] MEDS: traZODone HCL 50 MG TABLET PO (20:42)
[2023-08-13] MEDS: CITALOPRAM HYDROBROMIDE 20 MG TABLET PO (20:43)
[2023-08-13] MEDS: HEPARIN SODIUM 5,000 UNITS/ML VIAL 4000 UNITS IV PUSH (21:29)
[2023-08-13] MEDS: HEPARIN SOD/D5W 100 UNITS/ML 25,000 UNITS/250 ML BAG 9 UNITS IV CONT (21:30)
[2023-08-14] VITALS (12 sets, daily range): BP systolic 110–133; BP diastolic 63–84; PULSE 72–99; RESP 18; TEMP 37–37.3; O2SAT 98–100
[2023-08-14 03:53] LABS: Basophils Percent Auto 0.3 % (0.2-1.2); Eosinophils Absolute Auto 0.1 K/mm3 (0-0.3); Eosinophils Percent Auto 1.2 % (0-4.4); Hematocrit 31.1 % (37.0-47.0); Hemoglobin 9.1 g/dL (12.0-15.0); Immature Granulocyte Absolute 0.08 K/mm3 (0.00-0.031); Immature Granulocyte Percent A 0.7 % (0-0.5); Lymphocytes Absolute Auto 2.28 K/mm3 (0.9-3.2); Lymphocytes Percent Auto 19.6 % (18.3-44.2); Mean Corpuscular HGB Conc 29.3 g/dl (32-36); Mean Corpuscular Hemoglobin 24.9 pg (26-34); Mean Corpuscular Volume 85.2 fl (80-100); Mean Platelet Volume 10.2 fl (7.4-10.4); Monocytes Absolute Auto 0.7 K/mm3 (0.1-0.6); Monocytes Percent Auto 6.1 % (2.6-8.5); Neutrophils Absolute Auto 8.4 K/mm3 (1.3-6.7); Neutrophils Percent Auto 72.1 % (45.5-73.1); Platelet Count Result 302 k/mm3 (150-375); Red Blood Count 3.65 M/mm3 (4.2-5.4); Red Cell Distribution Width 22.2 % (11.5-14.5); White Blood Count 11.6 K/mm3 (4.5-10.0)
[2023-08-14 04:02] LABS: Alanine Aminotransferase 19 U/L (6-35); Albumin Level 3.6 g/dL (3.5-5.1); Alkaline Phosphatase 102 U/L (38-126); Anion Gap 14 mmol/L (8-16); Aspartate Amino Transferase 13 U/L (14-36); Bilirubin,Total 0.5 mg/dL (0.2-1.3); Blood Urea Nitrogen 45 mg/dL (7-17); Calcium 9.1 mg/dL (8.4-10.2); Carbon Dioxide 18 mmol/L (22-30); Chloride 109 mmol/L (98-107); Estimated Glomerular Filt Rate 36; Glucose 104 mg/dL (65-110); Potassium 5.3 mmol/L (3.4-5.0); Sodium 141 mmol/L (137-145)
[2023-08-14 04:09] LABS: Partial Thromboplastin Time 105.8 SECONDS (22.3-36.8)
[2023-08-14 04:43] LABS: Anisocytosis 3+ (NORMAL); Hypochromasia 1+ (NORMAL); Platelet Estimate Adequate (Adequate)
[2023-08-14 04:44] LABS: Burr Cells 2+ (NORMAL); Schistocytes None Seen (NORMAL)
[2023-08-14] MEDS: ACETAMINOPHEN 325 MG TABLET 650 MG PO (05:20)
[2023-08-14 08:55] LABS: Anion Gap 12 mmol/L (8-16); Blood Urea Nitrogen 46 mg/dL (7-17); Calcium 9.1 mg/dL (8.4-10.2); Carbon Dioxide 21 mmol/L (22-30); Chloride 108 mmol/L (98-107); Estimated Glomerular Filt Rate 36; Glucose 94 mg/dL (65-110); Potassium 5.4 mmol/L (3.4-5.0); Sodium 141 mmol/L (137-145)
[2023-08-14] MEDS: polyethylene glycoL 3350 17 GM POWD.PACK PO (09:18)
[2023-08-14] MEDS: PANTOPRAZOLE SODIUM IV 40 MG VIAL IV PUSH ×2 (09:18→20:09)
[2023-08-14] MEDS: MULTIVITAMINS /C LUTEIN (CENTRUM SILVER) TABLET *BKC 1 TAB PO (09:18)
[2023-08-14] MEDS: PREGABALIN (*CRX) 75 MG CAPSULE PO ×2 (09:18→16:57)
[2023-08-14] MEDS: METOPROLOL TARTRATE 50 MG TAB PO ×2 (09:19→20:08)
[2023-08-14] MEDS: MEGESTROL ACETATE (*CHEMO) ORAL SUSP 40 MG/ML SYR 400 MG PO ×2 (09:19→16:57)
[2023-08-14] MEDS: LACTULOSE 20 GM/30 ML UDC PO (09:22)
[2023-08-14] MEDS: FAMOTIDINE 20 MG TABLET PO (09:23)
[2023-08-14] MEDS: CHOLECALCIFEROL 1,000 UNITS TABLET 1000 UNITS PO (09:23)
[2023-08-14] MEDS: HYDROCORTISONE 5 MG TABLET PO (09:23)
[2023-08-14] MEDS: guaiFENesin 12 HR 600 MG TABCR PO ×2 (09:23→20:08)
[2023-08-14] MEDS: SODIUM POLYSTYRENE SULFONONATE 15 GM/60 ML BTL 30 GM PO (09:52)
[2023-08-14] MEDS: DEXTROSE 50% 25 GM/50 ML SYRINGE IV PUSH (10:42)
[2023-08-14] MEDS: INSULIN HUMAN REGULAR (*BKC) 100 UNITS/ML 10 UNITS IV PUSH (10:42)
[2023-08-14] MEDS: CALCIUM GLUC 1,000 MG/NS 50 ML 1,000 MG/50 ML BAG 100 MG IVPB (10:56)
--- NOTE | 2023-08-14 11:02 | PC.NURSE ---
On 08/14/23, the student, [Briana Tan], provided care and completed [facility] documentation on this patient. I have reviewed the student's documentation and agree with the findings.
--- NOTE | 2023-08-14 11:09 | PM.IMPN ---
Progress Note: A&P Assessment and Plan (1) Infection due to ESBL-producing Escherichia coli: Code(s): A49.8 - Other bacterial infections of unspecified site; Z16.12 - Extended spectrum beta lactamase (ESBL) resistance Status: Acute (2) Hematuria: Code(s): R31.9 - Hematuria, unspecified Status: Acute (3) Acute on chronic anemia: Code(s): D64.9 - Anemia, unspecified Status: Acute (4) Pulmonary embolism: Code(s): I26.99 - Other pulmonary embolism without acute cor pulmonale Status: Acute (5) Dementia: Code(s): F03.90 - Unspecified dementia, unspecified severity, without behavioral disturbance, psychotic disturbance, mood disturbance, and anxiety Status: Acute (6) Acute kidney injury: Code(s): N17.9 - Acute kidney failure, unspecified Status: Acute (7) COVID-19: Code(s): U07.1 - COVID-19 Status: Acute Plan 58F w/ PMH depression, dementia, anemia, COPD, HTN, functional quadriplegia 2/2 to MS, LIBIA, HLD, MS, PE, ESBL presented with abdominal pain. # Pulmonary embolism: CT PE shows acute and subacute PE in posterior segment of GRABIEL. no R heart strain. small clot burden. perfusion defects in RLL gone. 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 Renal dosing H&H remains stable on anticoagulation now 08/13: Switch pt to heparin drip in light of potential surgery on Sunday. # COVID-19: Finish remdesivir course and finished dexamethasone course she is off oxygen CKD: US renal showed left kidney stones with hydronephrosis Urology and nephrology consulted Attempted removal of the left ureteral stent which was unsuccessful retained encrusted left stent, she will need lithotripsy when off anticoagulation. 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 Feliberto Martinez at [facility] in 2021. # Chronic obstructive pulmonary disease: No acute issues.? Continue maintenance inhalers. Bronchodilators q.6 hours if needed. # Chronic anemia: with iron deficiency Isat 10, started on Venofer 400/1000mg acue on chronic anemia needing trasnfusion. GI consulted. fobt nega,no report of gib. dc'ed pepcid, does not need double meds. consider switching back and taking off protonix tomorrow # Abnormal chest x-ray: ?Chest x-ray shows airspace opacity than left lower lung zone which could be atelectasis/scarring or less likely pneumonia. WBC count is elevated thus will treat for possible pneumonia with antibiotic is a completed the course # Abnormal urinalysis/UTI:/ ESBL Urine looks contaminated but is positive for bacteria and leukocyte esterase. Continue antibiotics, urine culture no growth UA dirty again.? Recent instrumentation Initiated on ceftriaxone.? Culture grew ESBL E coli switched to ertapenem D3 08/13: ESBL +. Repeat Urine cx per curbside discussion with Dr. Padilla. He will talk to Dr. Can. Plan for potential lithotripsy on Sunday for removal of infected stent. Ct ertapenem until Sunday. ?# GI bleed: ?Possible GI bleed in the background of Iron deficiency anemia, severe anemia setting in on Anticoagulation 08/13: Resolved. ctm # DVT Proph: heparin drip More than 35 minutes spent on chart review, patient interaction and assessment and plan. Subjective Date/time seen: 08/14/23 11:09 Interval history: NAOE. pt is without complaints. she reports feeling better but can not specify why. last Bm was a week ago. she denies abdominal pain. she denies pain upon urination Review of Systems Review of Systems: All systems reviewed & are unremarkable except as noted in HPI and below Exam Const: General: comfortable and no acute distress Resp: Effort & Inspection: normal respiratory effort Auscultation: clear to auscultation bilaterally Cardio: Rate: regular rate Rhythm: regular rhythm GI: Inspection: non-distended GI Palp: Yes Soft to palpation and No Tenderness to palpation present (GI) Auscultation: normal bowel so
[2023-08-14 11:43] LABS: Glucose Point of Care 185 mg/dl (65-105)
[2023-08-14 12:08] LABS: Anion Gap 11 mmol/L (8-16); Blood Urea Nitrogen 44 mg/dL (7-17); Carbon Dioxide 19 mmol/L (22-30); Chloride 112 mmol/L (98-107); Estimated Glomerular Filt Rate 36; Glucose 145 mg/dL (65-110); Sodium 142 mmol/L (137-145)
[2023-08-14 12:53] LABS: Glucose Point of Care 157 mg/dl (65-105)
[2023-08-14 13:49] LABS: Glucose Point of Care 132 mg/dl (65-105)
[2023-08-14 14:45] LABS: Glucose Point of Care 136 mg/dl (65-105)
--- NOTE | 2023-08-14 15:09 | WPDUROPN2 ---
Progress Note: A&P Assessment and Plan (1) Infection due to ESBL-producing Escherichia coli: Code(s): A49.8 - Other bacterial infections of unspecified site; Z16.12 - Extended spectrum beta lactamase (ESBL) resistance Status: Acute (2) S/P ureteral stent placement: Code(s): Z96.0 - Presence of urogenital implants Status: Acute Assessment and Plan: Pt. to stay NPO tomorrow night. Continue Heparin. Obtain Consent: Left ESWL, Cystoscopy, left stent removal, left retrograde pyelogram. Plan to go to the OR on with Dr. Can. Subjective Subjective Date/Time Seen: 08/14/23 15:09 Interval history: Pt. had an attempted left stent removal by Dr. Can that was unsuccessful on 08/03/23 d/t encrustation of the stent. She will need ESWL to loosen the stent since it was encrusted, but this was complicated by her need for anticoagulants. She has been switched to Heparin as a result of needing an ESWL. Objective Data Vital Signs Vital Signs: Vital Signs - 24 hr 08/13/23 16:00 08/13/23 20:38 08/13/23 20:42 Temperature 98.1 F Pulse Rate 77 78 78 Respiratory Rate 18 Blood Pressure 116/70 Pulse Oximetry 99 Oxygen Delivery 08/13/23 20:00 08/13/23 20:00 08/14/23 00:00 Temperature Pulse Rate 77 73 Respiratory Rate Blood Pressure Pulse Oximetry Oxygen Delivery Room Air 08/14/23 04:00 08/14/23 05:10 08/14/23 08:00 Temperature 99.2 F Pulse Rate 72 77 Respiratory Rate 18 Blood Pressure 133/84 Pulse Oximetry 100 100 Oxygen Delivery Room Air 08/14/23 09:19 08/14/23 10:55 08/14/23 12:00 Temperature Pulse Rate 81 87 Respiratory Rate Blood Pressure 115/63 Pulse Oximetry Oxygen Delivery 08/14/23 08:00 Temperature Pulse Rate 73 Respiratory Rate Blood Pressure Pulse Oximetry Oxygen Delivery Intake/Output Intake/Output: Intake & Output 08/11/23 08/12/23 08/13/23 08/14/23 23:59 23:59 23:59 23:59 Intake Total 265 489 9978 1160 Output Total 696 975 7905 600 Balance 140 250 -620 560 Meds/Results Medications: Active Medications Generic Name Dose Route Start Last Admin Trade Name Freq PRN Reason Stop Dose Admin Acetaminophen 650 mg 07/27/23 14:28 08/14/23 05:20 Acetaminophen 325 Mg Tablet PO 650 mg Q4H PRN Administration Pain (Scale Score 1-3) Albuterol 2.5 mg 08/08/23 14:22 Albuterol Sulfate Neb 2.5 Mg/3 Ml Inh INHALATION Q4HRT PRN Wheezing Citalopram Hydrobromide 20 mg 07/27/23 21:00 08/13/23 20:43 Citalopram Hydrobromide 20 Mg Tablet PO 20 mg HS MERLYN Administration Dextrose 12.5 gm 08/14/23 08:30 Dextrose 50% 25 Gm/50 Ml Syringe IV PUSH PRN PRN Hypoglycemia Protocol Glucagon 1 mg 08/14/23 08:30 Glucagon For Inj 1 Mg Vial IM PRN PRN Hypoglycemia Protocol Glucose 15 gm 08/14/23 08:30 Glucose Oral Gel 15 Gm Of Glucse In 37.5 Gm Tube PO PRN PRN Hypoglycemia Protocol Guaifenesin 600 mg 08/01/23 09:55 08/14/23 09:23 Guaifenesin 12 Hr 600 Mg Tabcr PO 600 mg Q12HR MERLYN Administration Heparin Sodium (Porcine) 4,000 units 08/13/23 17:28 Heparin Sodium 5,000 Units/Ml Vial IV PUSH PRN PRN aPTT less than 55 seconds Heparin Sodium (Porcine) 2,000 units 08/13/23 17:28 Heparin Sodium 5,000 Units/Ml Vial IV PUSH PRN PRN aPTT 55 - 70 seconds Hydrocortisone 5 mg 07/28/23 09:00 08/14/23 09:23 Hydrocortisone 5 Mg Tablet PO 5 mg DAILY MERLYN Administration Ertapenem 1 gm in 50 mls @ 100 mls/hr 08/09/23 16:30 08/13/23 19:00 Invanz 1 Gm/Ns 50 Ml IVPB 08/20/23 16:29 Infused DAILY@1600 MERLYN Infusion Heparin Sodium/Dextrose 25,000 units in 250 mls @ 9 mls/hr 08/13/23 17:30 08/14/23 04:00 Heparin Sodium/D5w 100 Units/Ml IV CONT 900 units/hr .Q24H MERLYN 9 mls/hr Titration Protocol 900 UNITS/HR Dextrose 1,000 mls @ 100 mls/hr 1
[2023-08-14 16:01] LABS: Glucose Point of Care 146 mg/dl (65-105)
[2023-08-14 16:19] LABS: Partial Thromboplastin Time 53.1 SECONDS (22.3-36.8)
[2023-08-14] MEDS: ERTAPENEM 1 GM/NS 50 ML 1 GM/50 ML BAG IVPB (16:58)
[2023-08-14] MEDS: HEPARIN SODIUM 5,000 UNITS/ML VIAL 4000 UNITS IV PUSH (17:05)
[2023-08-14] MEDS: CITALOPRAM HYDROBROMIDE 20 MG TABLET PO (20:09)
[2023-08-14] MEDS: traZODone HCL 50 MG TABLET PO (20:09)
[2023-08-14 23:58] LABS: Partial Thromboplastin Time 154.5 SECONDS (22.3-36.8)
[2023-08-15] VITALS (9 sets, daily range): BP systolic 112–118; BP diastolic 72–78; PULSE 78–96; RESP 18; TEMP 36.4–36.7; O2SAT 98
--- NOTE | 2023-08-15 00:02 | PC.NURSE ---
2300 PTT WAS 1154.5 WILL HOLD INFUSION FOR 1HR AND DECREASE RATE BY 2ML PER PROTOCOL
[2023-08-15] MEDS: HEPARIN SOD/D5W 100 UNITS/ML 25,000 UNITS/250 ML BAG 9 UNITS IV CONT (01:03)
[2023-08-15 06:19] LABS: Basophils Absolute Auto 0.1 K/mm3 (0.0-0.1); Basophils Percent Auto 0.4 % (0.2-1.2); Eosinophils Absolute Auto 0.1 K/mm3 (0-0.3); Hematocrit 31.4 % (37.0-47.0); Hemoglobin 8.9 g/dL (12.0-15.0); Immature Granulocyte Absolute 0.12 K/mm3 (0.00-0.031); Immature Granulocyte Percent A 0.9 % (0-0.5); Lymphocytes Absolute Auto 2.93 K/mm3 (0.9-3.2); Lymphocytes Percent Auto 21.4 % (18.3-44.2); Mean Corpuscular HGB Conc 28.3 g/dl (32-36); Mean Corpuscular Hemoglobin 24.9 pg (26-34); Mean Corpuscular Volume 87.7 fl (80-100); Mean Platelet Volume 10.8 fl (7.4-10.4); Monocytes Absolute Auto 0.9 K/mm3 (0.1-0.6); Monocytes Percent Auto 6.5 % (2.6-8.5); Neutrophils Absolute Auto 9.5 K/mm3 (1.3-6.7); Neutrophils Percent Auto 69.8 % (45.5-73.1); Platelet Count Result 312 k/mm3 (150-375); Red Blood Count 3.58 M/mm3 (4.2-5.4); Red Cell Distribution Width 22.7 % (11.5-14.5); White Blood Count 13.7 K/mm3 (4.5-10.0)
[2023-08-15 06:27] LABS: Alanine Aminotransferase 17 U/L (6-35); Albumin Level 3.4 g/dL (3.5-5.1); Alkaline Phosphatase 101 U/L (38-126); Anion Gap 10 mmol/L (8-16); Aspartate Amino Transferase 14 U/L (14-36); Bilirubin,Total 0.4 mg/dL (0.2-1.3); Blood Urea Nitrogen 42 mg/dL (7-17); Calcium 8.6 mg/dL (8.4-10.2); Carbon Dioxide 21 mmol/L (22-30); Chloride 108 mmol/L (98-107); Estimated Glomerular Filt Rate 36; Glucose 90 mg/dL (65-110); Potassium 4.6 mmol/L (3.4-5.0); Sodium 139 mmol/L (137-145)
[2023-08-15 06:31] LABS: Partial Thromboplastin Time 66.9 SECONDS (22.3-36.8)
[2023-08-15] MEDS: HEPARIN SODIUM 5,000 UNITS/ML VIAL 2000 UNITS IV PUSH (06:39)
[2023-08-15 06:55] LABS: Procalcitonin 0.1 ng/mL
[2023-08-15] MEDS: CHOLECALCIFEROL 1,000 UNITS TABLET 1000 UNITS PO (08:24)
[2023-08-15] MEDS: guaiFENesin 12 HR 600 MG TABCR PO ×2 (08:24→21:03)
[2023-08-15] MEDS: HYDROCORTISONE 5 MG TABLET PO (08:25)
[2023-08-15] MEDS: PREGABALIN (*CRX) 75 MG CAPSULE PO ×2 (08:25→16:55)
[2023-08-15] MEDS: METOPROLOL TARTRATE 50 MG TAB PO ×2 (08:25→21:03)
[2023-08-15] MEDS: MULTIVITAMINS /C LUTEIN (CENTRUM SILVER) TABLET *BKC 1 TAB PO (08:25)
[2023-08-15] MEDS: MEGESTROL ACETATE (*CHEMO) ORAL SUSP 40 MG/ML SYR 400 MG PO ×2 (08:26→16:55)
[2023-08-15] MEDS: PANTOPRAZOLE SODIUM IV 40 MG VIAL IV PUSH ×2 (08:26→21:02)
[2023-08-15] MEDS: LACTULOSE 20 GM/30 ML UDC PO ×2 (08:26→16:55)
[2023-08-15 10:03] LABS: Platelet Estimate Adequate (Adequate)
[2023-08-15 10:04] LABS: Anisocytosis 2+ (NORMAL); Burr Cells 1+ (NORMAL); Ovalocytes 1+ (NORMAL); Schistocytes None Seen (NORMAL)
[2023-08-15 10:05] LABS: Hypochromasia 1+ (NORMAL)
--- NOTE | 2023-08-15 10:11 | PM.IMPN ---
Progress Note: A&P Assessment and Plan (1) Infection due to ESBL-producing Escherichia coli: Code(s): A49.8 - Other bacterial infections of unspecified site; Z16.12 - Extended spectrum beta lactamase (ESBL) resistance Status: Acute (2) Pulmonary embolism: Code(s): I26.99 - Other pulmonary embolism without acute cor pulmonale Status: Acute (3) Dementia: Code(s): F03.90 - Unspecified dementia, unspecified severity, without behavioral disturbance, psychotic disturbance, mood disturbance, and anxiety Status: Acute (4) GI bleed: Code(s): K92.2 - Gastrointestinal hemorrhage, unspecified Status: Acute Plan 58F w/ PMH depression, dementia, anemia, COPD, HTN, CKD, functional quadriplegia 2/2 to MS, LIBIA, HLD, MS, PE, ESBL presented with abdominal pain. 1) UTI w/ ESBL, encrusted L ureteral stent w/ failed removal on 08/02 - recent instrumentation. C&S on 08/07 demonstrate ecoli sensitive to imipenem and ertapenem. again on 08/13 with enterococcus, C&S to follow - switched from ceftriaxone to ertapenem on 08/09, will continue this for some time after the stent is removed - urology plan to go for ESWL and stent removal on 08/16. NPO at midnight, appreciate mgmt of heparin per urology as well. 2) COVID-19 - finished course of decadron and remdesivir. no on RA 3) PE - CTPE demonstrated subacute PE in posterior segement of GRABIEL w/o R heart strain. small clot burden and perfusion defects in RLL gone compared to VQ scan. - continue heparin, plan to transition to eliquis when urological events are over 4) CKD - stable. nephrology following. 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 Feliberto Martinez at [facility] in 2021 5) iron def anemia - isat 10, started on venofor 400/1000mg - FOBT negative 6) acute on chronic anemia 2/2 to suspected GI bleed - possible GI bleed in setting of anticoagulation although FOBT negative. GI consulted. they prefer to monitor - HB stable. 7) abnormal chest xray - CXR showed airspace opacity in LLL zone. being adequately covered as in plan #1 - leukocytosis mild but wavers. ctm. trend procal as well. 8) COPD - no active issues. PRN duonebs. FEN: saline lock IV. cardiac diet GI prophylaxis: protonix BID DVT prophylaxis: heparin gtt Lines: pIV Code Status: Full Code Dispo: plan to dc back to [facility] stable. Pt requires continued admission as she has unresolved urinary tract infection and requires urological procedure and antibiotics. More than 35 minutes spent on chart review, patient interaction and assessment and plan. Subjective Date/time seen: 08/15/23 10:11 Interval history: NAOE. pt had BM last night. denies any complaints Review of Systems Review of Systems: All systems reviewed & are unremarkable except as noted in HPI and below Exam Const: General: comfortable Eyes: Pupils: Equal, round and reactive pupils present Neck: Neck: supple Resp: Effort & Inspection: normal respiratory effort Auscultation: clear to auscultation bilaterally and no crackles Cardio: Rate: regular rate Rhythm: regular rhythm Heart sounds: no gallops, no murmurs and no rubs GI: Inspection: distended GI Palp: Yes Soft to palpation and No Tenderness to palpation present (GI) Auscultation: normal bowel sounds Extrem: General: no edema Objective Data Vital Signs Vital Signs: Vital Signs - 24 hr 08/14/23 10:55 08/14/23 12:00 08/14/23 16:00 Temperature Pulse Rate 87 88 Respiratory Rate Blood Pressure 115/63 Pulse Oximetry Oxygen Delivery 08/14/23 19:50 08/14/23 20:08 08/14/23 20:11 Temperature 98.6 F Pulse Rate 98 99 Respiratory Rate 18 Blood Pressure 110/80 Pulse Oximetry 98 Oxygen Delivery 08/14/23 20:00 08/14/23 20:00 08/15/23 00:00 Temperature Pulse Rate 96 83 Respiratory Rate Blood Pressure Pulse Oximetry Oxygen Delivery Room Air 08/15/23 04:00 08/15/23 04:00
[2023-08-15] MEDS: ERTAPENEM 1 GM/NS 50 ML 1 GM/50 ML BAG IVPB (16:44)
[2023-08-15 20:22] LABS: Partial Thromboplastin Time 85.1 SECONDS (22.3-36.8)
[2023-08-15] MEDS: traZODone HCL 50 MG TABLET PO (21:03)
[2023-08-15] MEDS: CITALOPRAM HYDROBROMIDE 20 MG TABLET PO (21:03)
[2023-08-16] VITALS (13 sets, daily range): BP systolic 104–155; BP diastolic 69–86; PULSE 71–99; RESP 13–18; TEMP 36.4–37.1; O2SAT 94–100
[2023-08-16 01:27] LABS: Partial Thromboplastin Time 85.6 SECONDS (22.3-36.8)
[2023-08-16] MEDS: HEPARIN SOD/D5W 100 UNITS/ML 25,000 UNITS/250 ML BAG 9 UNITS IV CONT (05:45)
--- NOTE | 2023-08-16 06:21 | WPDHPUPDATE1 ---
History and Physical Update Update Date/Time: 08/16/23 06:21 History and Physical has been reviewed, including an updated exam of the patient. There are NO changes in the patient's condition. Risks, benefits, and alternatives have been discussed and questions answered. Patient agrees to proceed with procedure. Challenging problem in this patient with multiple cor morbidities and a solitary left kidney with a retained encrusted ureteral stent. She is now in need of anticoagulation because of deep venous thrombosis. Additionally, she has chronic bacteriuria with resistant organisms. I feel she will never be at no risk tointervention for her encrusted left ureteral stent. It is likely that her risk is optimized at this point given her ongoing antibiotic therapy and heparin for thromboembolic issues.
[2023-08-16 07:19] LABS: Basophils Percent Auto 0.3 % (0.2-1.2); Eosinophils Absolute Auto 0.1 K/mm3 (0-0.3); Eosinophils Percent Auto 1.1 % (0-4.4); Hemoglobin 9.1 g/dL (12.0-15.0); Immature Granulocyte Absolute 0.09 K/mm3 (0.00-0.031); Immature Granulocyte Percent A 0.7 % (0-0.5); Lymphocytes Absolute Auto 2.49 K/mm3 (0.9-3.2); Lymphocytes Percent Auto 19.4 % (18.3-44.2); Mean Corpuscular HGB Conc 29.4 g/dl (32-36); Mean Corpuscular Volume 85.2 fl (80-100); Mean Platelet Volume 10.3 fl (7.4-10.4); Monocytes Absolute Auto 0.8 K/mm3 (0.1-0.6); Monocytes Percent Auto 5.9 % (2.6-8.5); Neutrophils Absolute Auto 9.3 K/mm3 (1.3-6.7); Neutrophils Percent Auto 72.6 % (45.5-73.1); Platelet Count Result 282 k/mm3 (150-375); Red Blood Count 3.64 M/mm3 (4.2-5.4); Red Cell Distribution Width 22.4 % (11.5-14.5); White Blood Count 12.8 K/mm3 (4.5-10.0)
[2023-08-16 07:30] LABS: Partial Thromboplastin Time 67.9 SECONDS (22.3-36.8)
[2023-08-16 07:32] LABS: Anion Gap 12 mmol/L (8-16); Blood Urea Nitrogen 41 mg/dL (7-17); Calcium 8.8 mg/dL (8.4-10.2); Carbon Dioxide 21 mmol/L (22-30); Chloride 109 mmol/L (98-107); Estimated Glomerular Filt Rate 33; Glucose 93 mg/dL (65-110); Potassium 5.1 mmol/L (3.4-5.0); Sodium 142 mmol/L (137-145)
[2023-08-16 08:01] LABS: Anisocytosis 2+ (NORMAL); Burr Cells 1+ (NORMAL); Hypochromasia 1+ (NORMAL); Ovalocytes 1+ (NORMAL); Platelet Estimate Adequate (Adequate); Schistocytes None Seen (NORMAL)
[2023-08-16] MEDS: HEPARIN SODIUM 5,000 UNITS/ML VIAL 2000 UNITS IV PUSH (08:11)
[2023-08-16] MEDS: HEPARIN SOD/D5W 100 UNITS/ML 25,000 UNITS/250 ML BAG 10 UNITS IV CONT (08:12)
--- NOTE | 2023-08-16 08:53 | PM.IMPN ---
Progress Note: A&P Assessment and Plan (1) Infection due to ESBL-producing Escherichia coli: Code(s): A49.8 - Other bacterial infections of unspecified site; Z16.12 - Extended spectrum beta lactamase (ESBL) resistance Status: Acute (2) Acute on chronic anemia: Code(s): D64.9 - Anemia, unspecified Status: Acute (3) Pulmonary embolism: Code(s): I26.99 - Other pulmonary embolism without acute cor pulmonale Status: Acute (4) Dementia: Code(s): F03.90 - Unspecified dementia, unspecified severity, without behavioral disturbance, psychotic disturbance, mood disturbance, and anxiety Status: Acute (5) GI bleed: Code(s): K92.2 - Gastrointestinal hemorrhage, unspecified Status: Acute (6) Acute kidney injury: Code(s): N17.9 - Acute kidney failure, unspecified Status: Acute Plan 58F w/ PMH depression, dementia, anemia, COPD, HTN, CKD, functional quadriplegia 2/2 to MS, LIBIA, HLD, MS, PE, ESBL presented with abdominal pain. 1) UTI w/ ESBL, encrusted L ureteral stent w/ failed removal on 08/02 - recent instrumentation. C&S on 08/07 demonstrate ecoli sensitive to imipenem and ertapenem. again on 08/13 with enterococcus, C&S to follow - switched from ceftriaxone to ertapenem on 08/09, will continue until at least the stent is removed. - urology plan to go for ESWL and stent removal today. restart heparin as soon as urology approved - leukocytosis, downtrending. trend procalcitonin as well. 2) COVID-19 - finished course of decadron and remdesivir. now on RA 3) PE - CTPE demonstrated subacute PE in posterior segement of GRABIEL w/o R heart strain. small clot burden and perfusion defects in RLL gone compared to VQ scan. - continue heparin, plan to transition to eliquis when urological events are over 4) CKD - stable. nephrology following. 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 Feliberto Martinez at [facility] in 2021 5) iron def anemia - isat 10, started on venofor 400/1000mg - FOBT negative 6) acute on chronic anemia 2/2 to suspected GI bleed - possible GI bleed in setting of anticoagulation although FOBT negative. GI consulted. they prefer to monitor - HB stable. ctm. 7) abnormal chest xray - CXR showed airspace opacity in LLL zone. being adequately covered as in plan #1 - leukocytosis mild but wavers. ctm. trend procal as well. 8) COPD - no active issues. PRN duonebs. FEN: saline lock IV. cardiac diet GI prophylaxis: protonix BID DVT prophylaxis: heparin gtt will transition to eliquis Lines: pIV Code Status: Full Code Dispo: plan to dc back to [facility] stable. More than 25 minutes spent on chart review, patient interaction and assessment and plan. Subjective Date/time seen: 08/16/23 08:53 Interval history: NAOE. pt is without complaints. she reports being hungry. she denies pain, fever, n/v/d Review of Systems Review of Systems: All systems reviewed & are unremarkable except as noted in HPI and below Exam Const: General: comfortable and no acute distress Eyes: Pupils: Equal, round and reactive pupils present Neck: Neck: supple Resp: Effort & Inspection: abnormal respiratory effort Cardio: Rate: regular rate Rhythm: regular rhythm Heart sounds: no gallops, no murmurs and no rubs GI: GI Palp: Yes Soft to palpation and No Tenderness to palpation present (GI) Extrem: General: no edema Objective Data Vital Signs Vital Signs: Vital Signs - 24 hr 08/15/23 12:00 08/15/23 12:00 08/15/23 16:00 Temperature 97.7 F Pulse Rate 82 78 80 Respiratory Rate 18 Blood Pressure 116/72 Pulse Oximetry 98 08/15/23 19:43 08/15/23 21:03 08/15/23 20:00 Temperature 97.6 F Pulse Rate 96 90 90 Respiratory Rate 18 Blood Pressure 112/76 Pulse Oximetry 98 08/16/23 00:00 08/16/23 04:00 08/16/23 04:00 Temperature 98.7 F Pulse Rate 89 85 99 Respiratory Rate 18 Blood Pressure 104/69 Pulse Oximetry 98
[2023-08-16 08:58] LABS: Procalcitonin 0.1 ng/mL
[2023-08-16] MEDS: PREGABALIN (*CRX) 75 MG CAPSULE PO ×2 (09:50→17:52)
[2023-08-16] MEDS: PANTOPRAZOLE SODIUM IV 40 MG VIAL IV PUSH ×2 (09:50→21:00)
[2023-08-16] MEDS: guaiFENesin 12 HR 600 MG TABCR PO ×2 (09:51→20:55)
[2023-08-16] MEDS: METOPROLOL TARTRATE 50 MG TAB PO ×2 (09:51→20:55)
--- NOTE | 2023-08-16 10:50 | PCNFU ---
Nutrition Follow-Up Complete: Moderate protein calorie malnutrition related to inadequate energy intake with increased nutrient needs as evidenced by significant weight loss of -18% x 6 months, increased needs for multiple areas of wound healing, insufficient po intake Goal: Increased nutrient needs related to altered skin integrity as evidenced by noted pressure injuries PO intake 75% or greater for meals and supplements Patient is progressing towards goal. No new goal. Pt current nutrition is NPO for procedure plans to advance to heart healthy/soft and bite sized, Level 6. Last recorded weight is 65.3 kg, up from 59 kg on admit. Bowel Motility:+BM reported 08/15 Labs Reviewed:Cr 1.6, GFR 33, BUN 41, K 5.1, Hct 31.0,Hgb 9.1 Meds Noted:Protonix, Megace, Lopressor, Pepcid Skin:Stage III R heel, St III BL ischium Additional Notes: Patient is NPO for renal stent removal. Patient has been tolerating diet with intake's > 75% of meals. Diet supplements remain on trays of Ensure compact BID (220 kcals and 9 gms protein) and Maged BID (80 kcals, 2.5 gms protein, 7 gms arginine and glutamine) for wound healing. Monitor diet order, intake, wt, labs, skin. Follow up in 5 days.
--- NOTE | 2023-08-16 10:50 | PC.NURSE ---
Addendum entered by Radha Galindo RN 08/16/23 10:51: * [facility] Original Note: Holding morning medications except for IV protonix, P.O Lyrics, metoprolol, and mucinex due to surgery at 1530. Stopped Heparin drip @0930. Will draw another PTT prior to surgery @ 1330.
[2023-08-16 12:48] LABS: Creatine Kinase < 20 U/L (30-135)
--- NOTE | 2023-08-16 14:53 | PC.NURSE ---
On 08/16/23, the student, [Matt Rolon], provided care and completed [facility] documentation on this patient. I have reviewed the student's documentation and agree with the findings.
--- NOTE | 2023-08-16 15:07 | WPDANESEPPF ---
Anes - Initial Pre Proc Eval Procedure: Operation Date: 08/02/23 15:45 Proposed Procedures p Cystoscopy,Left Stent Exchange,Left Retrograde Pyelogram - Aidan Can MD Operation Date: 08/16/23 15:30 Proposed Procedures p Left Extracorporeal Shock Wave Lithotripsy - Aidan Can MD s Cystoscopy, Retrograde Pyelogram with Stent Removal and Stent Replacement - Aidan Can MD Date/Time: 08/16/23 15:07 Surgeon: Quinton Mejia MD Pre Op Diagnosis: Sepsis Patient Data Age: 58 Gender: F Height: 1.47 m Weight: 65.3 kg Last Vital Signs Temp 36.4 C 08/16/23 12:00 Pulse 80 08/16/23 12:00 Resp 13 08/16/23 12:00 BP 125/72 08/16/23 12:00 Pulse Ox 98 08/16/23 12:00 O2 Del Method Room Air 08/16/23 08:00 O2 Flow Rate 2 08/03/23 09:32 FiO2 21 08/15/23 08:00 Allergies Allergy/AdvReac Type Severity Reaction Status Date / Time No Known Allergies Allergy Verified 07/27/23 09:46 Home Medications Medication Instructions Recorded Confirmed Type acetaminophen 650 mg PO Q4H PRN Pain (Scale 12/17/22 07/27/23 History Score 1-3) amlodipine 2.5 mg tablet 2.5 mg PO DAILY 12/17/22 07/27/23 History cholecalciferol (vitamin D3) 1,000 units PO DAILY 12/17/22 07/27/23 History citalopram 20 mg tablet 20 mg PO HS 12/17/22 07/27/23 History famotidine 20 mg tablet 20 mg PO BID 12/17/22 07/27/23 History hydrocortisone 5 mg tablet 5 mg PO DAILY 12/17/22 07/27/23 History ipratropium bromide 0.02 % 1 ml inhalation DAILY PRN 12/17/22 07/27/23 History solution for inhalation Shortness Of Breath lactulose 10 gram/15 mL oral 30 ml PO BID 12/17/22 07/27/23 History solution metoprolol tartrate 50 mg tablet 50 mg PO BID 12/17/22 07/27/23 History ondansetron 4 mg disintegrating 4 mg translingual QID PRN Nausea 12/17/22 07/27/23 History tablet And Vomiting polyethylene glycol 3350 17 g PO DAILY Constipation 12/17/22 07/27/23 History potassium chloride 20 mEq oral 20 meq PO DAILY 12/17/22 07/27/23 History packet trazodone 50 mg tablet 50 mg PO HS 12/17/22 07/27/23 History clonidine 0.1 mg/24 hr weekly 1 patch transdermal WEEKLY #4 ea 12/25/22 07/27/23 Rx transdermal patch pregabalin 75 mg capsule 75 mg PO BID #60 caps 12/25/22 07/27/23 Rx hydrocodone 5 mg-acetaminophen 325 1 tablet PO Q6H PRN Pain 07/27/23 07/27/23 History mg tablet megestrol 400 mg/10 mL (40 mg/mL) 400 mg PO BID 07/27/23 07/27/23 History oral suspension multivit with minerals-iron 18 1 tablet PO DAILY 07/27/23 07/27/23 History mg-folic ac 400 mcg-vit K 25 mcg tablet (Adults Multivitamin) sennosides 8.6 mg tablet (senna) 8.6 mg PO DAILY PRN Constipation 07/27/23 07/27/23 History Laboratory Tests 08/15/23 08/16/23 08/16/23 19:55 01:00 06:56 WBC RBC Hgb Hct MCV MCH MCHC RDW Plt Count MPV Immature Gran % (Auto) Neut % (Auto) Lymph % (Auto) [place] % (Auto) Eos % (Auto) Baso % (Auto) Lymph # (Auto) [place] # (Auto) Eos # (Auto) Baso # (Auto) Abs Immat Gran (auto) Absolute Neuts (auto) Absolute Nucleated RBC Nucleated RBC % Platelet Estimate Hypochromasia Anisocytosis Ovalocytes Ailey Cells Schistocytes APTT 85.1 H SECONDS 85.6 H SECONDS (22.3-36.8) (22.3-36.8) Sodium Potassium Chloride Carbon Dioxide Anion Gap BUN Creatinine Estim Creat Clear Calc Estimated GFR Glucose Calcium Magnesium Total Creatine Kinase < 20 L U/L (30-135) Procalcitonin 08/16/23
[2023-08-16] MEDS: LACTATED RINGERS 1,000 ML 30 ML IV CONT (15:10)
--- NOTE | 2023-08-16 15:10 | SUR.PREOP ---
1510- Per Dr. Tillman and Dr. Can OK to proceed with procedure without redraw of PTT- heparin gtt discontinued at 0930.
--- NOTE | 2023-08-16 16:53 | W.PM.PROC2 ---
Procedure Note - Detailed Date of Procedure 08/16/23 Pre-op Diagnosis Retained left ureteral stent Post-op Diagnosis Same Procedure Performed cystoscopy, left ESWL, left ureteral stent removal Surgeon Aidan Can MD Anesthesia General Description of Procedure patient is brought to the operative suite received prepped and draped in routine sterile fashion well and a contracted supine position. Shockwave lithotripsy with a Dornier Lithotripter was 1st undertaken to the proximal coil of her indwelling ureteral stent. A total of 1400 shocks were delivered at a power of 1-4. I then tried to remove the stent and it was removed with ease using a 16 [place] flexible cystoscope. I opted not to replace the stent given marked difficulty in performing cystoscopy and identifying the ureteral orifice, and her history of noncompliance. If ureteral obstruction becomes an issue she would likely be better off with a percutaneous nephrostomy tube Urine Output 550 Drains No Pathology None sent Complications No immediate complications Condition Stable
[2023-08-16] MEDS: LACTULOSE 20 GM/30 ML UDC PO (17:52)
[2023-08-16] MEDS: MEGESTROL ACETATE (*CHEMO) ORAL SUSP 40 MG/ML SYR 400 MG PO (17:52)
[2023-08-16] MEDS: ERTAPENEM 1 GM/NS 50 ML 1 GM/50 ML BAG IVPB (17:52)
[2023-08-16] MEDS: CITALOPRAM HYDROBROMIDE 20 MG TABLET PO (20:55)
[2023-08-16] MEDS: traZODone HCL 50 MG TABLET PO (20:55)
[2023-08-17] VITALS (12 sets, daily range): BP systolic 109–129; BP diastolic 71–85; PULSE 75–86; RESP 16–18; TEMP 36.4–36.7; O2SAT 96–100
[2023-08-17 00:16] LABS: Partial Thromboplastin Time < 20.0 SECONDS (22.3-36.8)
[2023-08-17] MEDS: WATER FOR IRRIGATION, STERILE 1,000 ML BOTTLE 1000 ML (05:50)
[2023-08-17 06:29] LABS: Basophils Percent Auto 0.2 % (0.2-1.2); Hemoglobin 9.3 g/dL (12.0-15.0); Immature Granulocyte Absolute 0.11 K/mm3 (0.00-0.031); Immature Granulocyte Percent A 0.9 % (0-0.5); Lymphocytes Absolute Auto 1.47 K/mm3 (0.9-3.2); Mean Corpuscular HGB Conc 28.2 g/dl (32-36); Mean Corpuscular Hemoglobin 25.1 pg (26-34); Mean Corpuscular Volume 89.2 fl (80-100); Mean Platelet Volume 10.5 fl (7.4-10.4); Monocytes Absolute Auto 0.5 K/mm3 (0.1-0.6); Monocytes Percent Auto 3.8 % (2.6-8.5); Neutrophils Absolute Auto 10.2 K/mm3 (1.3-6.7); Neutrophils Percent Auto 83.1 % (45.5-73.1); Platelet Count Result 290 k/mm3 (150-375); Red Cell Distribution Width 22.3 % (11.5-14.5); White Blood Count 12.3 K/mm3 (4.5-10.0)
[2023-08-17 06:39] LABS: Anion Gap 13 mmol/L (8-16); Blood Urea Nitrogen 42 mg/dL (7-17); Calcium 8.9 mg/dL (8.4-10.2); Carbon Dioxide 18 mmol/L (22-30); Chloride 108 mmol/L (98-107); Estimated Glomerular Filt Rate 36; Glucose 117 mg/dL (65-110); Magnesium 2.1 mg/dL (1.6-2.3); Potassium 5.2 mmol/L (3.4-5.0); Sodium 139 mmol/L (137-145)
[2023-08-17 06:40] LABS: Partial Thromboplastin Time 53.1 SECONDS (22.3-36.8)
[2023-08-17] MEDS: HEPARIN SODIUM 5,000 UNITS/ML VIAL 4000 UNITS IV PUSH (06:57)
[2023-08-17 07:23] LABS: Anisocytosis 2+ (NORMAL); Hypochromasia 1+ (NORMAL); Ovalocytes 1+ (NORMAL); Platelet Estimate Adequate (Adequate); Schistocytes None Seen (NORMAL)
--- NOTE | 2023-08-17 07:45 | WPDUROPN2 ---
Progress Note: A&P Assessment and Plan (1) Solitary left kidney: Status: Acute (2) Left renal stone: Code(s): N20.0 - Calculus of kidney Status: Acute Assessment and Plan: Doing well with catheter out - urine output good, urine clear and creatinine stable. Will leave stent out. No intervention for left rneal stones unless they become problematic. Subjective Subjective Date/Time Seen: 08/17/23 07:45 Interval history: Comfortable, good urine output Review of Systems Review of Systems: ROS unobtainable: Yes unobtainable due to mental status Exam Const: General: no acute distress Resp: Effort & Inspection: normal respiratory effort GI: Inspection: non-distended GI Palp: No abdominal tenderness and No Guarding due to palpation present (GI) Auscultation: normal bowel sounds Urinary Catheter: Urinary Catheter: patent and draining and urine clear Objective Data Vital Signs Vital Signs: Vital Signs - 24 hr 08/16/23 09:51 08/16/23 08:00 08/16/23 12:00 Temperature 97.6 F Pulse Rate 73 80 Respiratory Rate 13 Blood Pressure 125/72 Pulse Oximetry 98 Oxygen Delivery Room Air Oxygen Flow Rate Fraction of Inspired Oxygen 08/16/23 14:55 08/16/23 16:27 08/16/23 16:40 Temperature 97.9 F 97.9 F Pulse Rate 71 83 72 Respiratory Rate 14 14 16 Blood Pressure 131/78 138/83 142/86 H Pulse Oximetry 100 100 100 Oxygen Delivery Room Air Simple Face Mask Simple Face Mask Oxygen Flow Rate 10 10 Fraction of Inspired Oxygen 08/16/23 16:55 08/16/23 17:10 08/16/23 08:00 Temperature Pulse Rate 74 74 76 Respiratory Rate 16 18 Blood Pressure 152/85 H 155/81 H Pulse Oximetry 98 99 Oxygen Delivery Room Air Room Air Oxygen Flow Rate Fraction of Inspired Oxygen 08/16/23 12:00 08/16/23 20:00 08/16/23 20:55 Temperature 97.9 F Pulse Rate 75 81 82 Respiratory Rate 18 Blood Pressure 110/70 Pulse Oximetry 96 Oxygen Delivery Oxygen Flow Rate Fraction of Inspired Oxygen 08/16/23 20:00 08/16/23 23:42 08/17/23 00:00 Temperature 97.9 F Pulse Rate 82 77 75 Respiratory Rate 18 17 Blood Pressure 106/74 Pulse Oximetry 96 94 Oxygen Delivery Room Air Oxygen Flow Rate Fraction of Inspired Oxygen 08/17/23 05:17 08/17/23 04:00 Temperature 97.7 F Pulse Rate 86 75 Respiratory Rate 18 Blood Pressure 124/75 Pulse Oximetry 96 Oxygen Delivery Oxygen Flow Rate Fraction of Inspired Oxygen Intake/Output Intake/Output: Intake & Output 08/14/23 08/15/23 08/16/23 08/17/23 23:59 23:59 23:59 23:59 Intake Total 2210 740 710 90 Output Total 691 358 0838 Balance 1610 390 -1740 90 Meds/Results Medications: Active Medications Generic Name Dose Route Start Last Admin Trade Name Freq PRN Reason Stop Dose Admin Acetaminophen 650 mg 07/27/23 14:28 08/14/23 05:20 Acetaminophen 325 Mg Tablet PO 650 mg Q4H PRN Administration Pain (Scale Score 1-3) Albuterol 2.5 mg 08/08/23 14:22 Albuterol Sulfate Neb 2.5 Mg/3 Ml Inh INHALATION Q4HRT PRN Wheezing Citalopram Hydrobromide 20 mg 07/27/23 21:00 08/16/23 20:55 Citalopram Hydrobromide 20 Mg Tablet PO 20 mg HS MERLYN Administration Dextrose 12.5 gm 08/14/23 08:30 Dextrose 50% 25 Gm/50 Ml Syringe IV PUSH PRN PRN Hypoglycemia Protocol Glucagon 1 mg 08/14/23 08:30 Glucagon For Inj 1 Mg Vial IM PRN PRN Hypoglycemia Protocol Glucose 15 gm 08/14/23 08:30 Glucose Oral Gel 15 Gm Of Glucse In 37.5 Gm Tube PO PRN PRN Hypoglycemia Protocol Guaifenesin 600 mg 08/01/23 09:55 08/16/23 20:55 Guaifenesin 12 Hr 600 Mg Tabcr PO 600 mg Q12HR MERLYN Administration Heparin Sodium (Porcine) 4,000 units 08/13/23 17:28 08/17/23 06:57 Heparin Sodium 5,000 Units/Ml Vial IV PUSH 4,000 units PRN PRN Administration aPTT less than 55 seconds Heparin Sodium
[2023-08-17] MEDS: SODIUM ZIRCONIUM CYCLOSILICATE 10 GM POWD.PACK PO (09:36)
[2023-08-17] MEDS: HYDROCORTISONE 5 MG TABLET PO (11:52)
[2023-08-17] MEDS: CHOLECALCIFEROL 1,000 UNITS TABLET 1000 UNITS PO (11:52)
[2023-08-17] MEDS: PANTOPRAZOLE 40 MG TABLET PO (11:53)
[2023-08-17] MEDS: guaiFENesin 12 HR 600 MG TABCR PO ×2 (11:53→20:49)
[2023-08-17] MEDS: METOPROLOL TARTRATE 50 MG TAB PO ×2 (11:53→20:48)
[2023-08-17] MEDS: MULTIVITAMINS /C LUTEIN (CENTRUM SILVER) TABLET *BKC 1 TAB PO (11:53)
[2023-08-17] MEDS: MEGESTROL ACETATE (*CHEMO) ORAL SUSP 40 MG/ML SYR 400 MG PO ×2 (11:54→17:35)
[2023-08-17] MEDS: LACTULOSE 20 GM/30 ML UDC PO ×2 (11:54→17:35)
[2023-08-17] MEDS: PREGABALIN (*CRX) 75 MG CAPSULE PO ×2 (11:55→17:35)
[2023-08-17 12:00] LABS: Procalcitonin 0.1 ng/mL
[2023-08-17 13:25] LABS: Anion Gap 11 mmol/L (8-16); Blood Urea Nitrogen 44 mg/dL (7-17); Calcium 9.1 mg/dL (8.4-10.2); Carbon Dioxide 22 mmol/L (22-30); Chloride 107 mmol/L (98-107); Estimated Glomerular Filt Rate 36; Glucose 107 mg/dL (65-110); Potassium 4.5 mmol/L (3.4-5.0); Sodium 140 mmol/L (137-145)
[2023-08-17 13:31] LABS: Partial Thromboplastin Time 142.1 SECONDS (22.3-36.8)
--- NOTE | 2023-08-17 13:49 | PC.NURSE ---
On 08/17/23, the student, [Matt Rolon], provided care and completed [facility] documentation on this patient. I have reviewed the student's documentation and agree with the findings.
--- NOTE | 2023-08-17 13:58 | PM.IMPN ---
Progress Note: A&P Assessment and Plan (1) Infection due to ESBL-producing Escherichia coli: Code(s): A49.8 - Other bacterial infections of unspecified site; Z16.12 - Extended spectrum beta lactamase (ESBL) resistance Status: Acute (2) Hematuria: Code(s): R31.9 - Hematuria, unspecified Status: Acute Plan 58F w/ PMH depression, dementia, anemia, COPD, HTN, CKD, functional quadriplegia 2/2 to MS, LIBIA, HLD, MS, PE, ESBL presented with abdominal pain. 1) UTI w/ ESBL, encrusted L ureteral stent w/ failed removal on 08/02 - recent instrumentation. C&S on 08/07 demonstrate ecoli sensitive to imipenem and ertapenem. again on 08/13 with enterococcus, C&S to follow, however there was a reported mix up in the lab, redraw urine cx again on 08/07 - switched from ceftriaxone to ertapenem on 08/09, will continue until at least the stent is removed. - urology plan to go for ESWL and stent removal today. restart heparin as soon as urology approved - leukocytosis, downtrending. trend procalcitonin as well. 08/17 - stent removed successfully. plan to restart heparin in the AM unless she has blood in urine 2) COVID-19 - finished course of decadron and remdesivir. now on RA 3) PE - CTPE demonstrated subacute PE in posterior segement of GRABIEL w/o R heart strain. small clot burden and perfusion defects in RLL gone compared to VQ scan. - continue heparin, plan to transition to eliquis when urological events are over 4) CKD - stable. nephrology following. 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 Feliberto Martinez at [facility] in 2021 5) iron def anemia - isat 10, started on venofor 400/1000mg - FOBT negative 6) acute on chronic anemia 2/2 to suspected GI bleed - possible GI bleed in setting of anticoagulation although FOBT negative. GI consulted. they prefer to monitor - HB stable. ctm. 7) abnormal chest xray - CXR showed airspace opacity in LLL zone. being adequately covered as in plan #1 - leukocytosis mild but wavers. ctm. trend procal as well. 8) COPD - no active issues. PRN duonebs. FEN: saline lock IV. cardiac diet GI prophylaxis: protonix BID DVT prophylaxis: heparin gtt will transition to eliquis Lines: pIV Code Status: Full Code Dispo: plan to dc back to [place] [facility]. stable. More than 35 minutes spent on chart review, patient interaction and assessment and plan. Subjective Date/time seen: 08/17/23 13:58 Interval history: NAOE. pt is without complaints. she denies abdominal pain Review of Systems Review of Systems: All systems reviewed & are unremarkable except as noted in HPI and below Exam Const: General: comfortable and no acute distress Eyes: Pupils: Equal, round and reactive pupils present Neck: Neck: supple Resp: Effort & Inspection: normal respiratory effort Auscultation: clear to auscultation bilaterally Cardio: Rate: regular rate Rhythm: regular rhythm Heart sounds: no gallops, no murmurs and no rubs GI: GI Palp: Yes Soft to palpation Urinary Catheter: Urinary Catheter: urine pink Extrem: General: no edema Objective Data Vital Signs Vital Signs: Vital Signs - 24 hr 08/16/23 14:55 08/16/23 16:27 08/16/23 16:40 Temperature 97.9 F 97.9 F Pulse Rate 71 83 72 Respiratory Rate 14 14 16 Blood Pressure 131/78 138/83 142/86 H Pulse Oximetry 100 100 100 Oxygen Delivery Room Air Simple Face Mask Simple Face Mask Oxygen Flow Rate 10 10 Fraction of Inspired Oxygen 08/16/23 16:55 08/16/23 17:10 08/16/23 20:00 Temperature 97.9 F Pulse Rate 74 74 81 Respiratory Rate 16 18 18 Blood Pressure 152/85 H 155/81 H 110/70 Pulse Oximetry 98 99 96 Oxygen Delivery Room Air Room Air Oxygen Flow Rate Fraction of Inspired Oxygen 08/16/23 20:55 08/16/23 20:00 08/16/23 23:42 Temperature 97.9 F Pulse Rate 82 82 77 Respiratory Rate 18 17 Blood Pressure 106/74 Pulse Oximetry 96 94 Oxygen Delivery Room Air Oxygen Flow Rate Fraction of Inspired
[2023-08-17] MEDS: ERTAPENEM 1 GM/NS 50 ML 1 GM/50 ML BAG IVPB (17:01)
[2023-08-17] MEDS: CITALOPRAM HYDROBROMIDE 20 MG TABLET PO (20:48)
[2023-08-17] MEDS: traZODone HCL 50 MG TABLET PO (20:48)
[2023-08-18] VITALS (7 sets, daily range): BP systolic 100–122; BP diastolic 69–81; PULSE 69–99; RESP 15–17; TEMP 36.4; O2SAT 99–100
[2023-08-18 05:54] LABS: Basophils Absolute Auto 0.1 K/mm3 (0.0-0.1); Basophils Percent Auto 0.5 % (0.2-1.2); Eosinophils Absolute Auto 0.1 K/mm3 (0-0.3); Eosinophils Percent Auto 0.8 % (0-4.4); Hemoglobin 9.1 g/dL (12.0-15.0); Immature Granulocyte Absolute 0.04 K/mm3 (0.00-0.031); Immature Granulocyte Percent A 0.4 % (0-0.5); Lymphocytes Absolute Auto 1.99 K/mm3 (0.9-3.2); Lymphocytes Percent Auto 18.7 % (18.3-44.2); Mean Corpuscular HGB Conc 29.4 g/dl (32-36); Mean Corpuscular Hemoglobin 25.6 pg (26-34); Mean Corpuscular Volume 87.1 fl (80-100); Mean Platelet Volume 10.5 fl (7.4-10.4); Monocytes Absolute Auto 0.5 K/mm3 (0.1-0.6); Monocytes Percent Auto 5.1 % (2.6-8.5); Neutrophils Absolute Auto 7.9 K/mm3 (1.3-6.7); Neutrophils Percent Auto 74.5 % (45.5-73.1); Platelet Count Result 269 k/mm3 (150-375); Red Blood Count 3.56 M/mm3 (4.2-5.4); Red Cell Distribution Width 22.1 % (11.5-14.5); White Blood Count 10.6 K/mm3 (4.5-10.0)
--- NOTE | 2023-08-18 05:57 | PC.NURSE ---
Hematuria still present with pink color and small clots. Per provider order heparin not restarted at 0500.
[2023-08-18 06:02] LABS: Partial Thromboplastin Time 26.3 SECONDS (22.3-36.8)
[2023-08-18 06:07] LABS: Anion Gap 12 mmol/L (8-16); Blood Urea Nitrogen 42 mg/dL (7-17); Calcium 8.9 mg/dL (8.4-10.2); Carbon Dioxide 20 mmol/L (22-30); Chloride 108 mmol/L (98-107); Estimated Glomerular Filt Rate 29; Glucose 90 mg/dL (65-110); Potassium 4.5 mmol/L (3.4-5.0); Sodium 140 mmol/L (137-145)
[2023-08-18 06:30] LABS: Procalcitonin 0.1 ng/mL
[2023-08-18 06:36] LABS: Anisocytosis 1+ (NORMAL); Platelet Estimate Adequate (Adequate); Poikilocytosis 1+ (NORMAL); Schistocytes Rare (NORMAL)
[2023-08-18] MEDS: MULTIVITAMINS /C LUTEIN (CENTRUM SILVER) TABLET *BKC 1 TAB PO (09:42)
[2023-08-18] MEDS: CHOLECALCIFEROL 1,000 UNITS TABLET 1000 UNITS PO (09:42)
[2023-08-18] MEDS: METOPROLOL TARTRATE 50 MG TAB PO ×2 (09:42→21:28)
[2023-08-18] MEDS: MEGESTROL ACETATE (*CHEMO) ORAL SUSP 40 MG/ML SYR 400 MG PO ×2 (09:43→17:23)
[2023-08-18] MEDS: HYDROCORTISONE 5 MG TABLET PO (09:43)
[2023-08-18] MEDS: PREGABALIN (*CRX) 75 MG CAPSULE PO ×2 (09:43→17:23)
[2023-08-18] MEDS: PANTOPRAZOLE 40 MG TABLET PO (09:43)
[2023-08-18] MEDS: guaiFENesin 12 HR 600 MG TABCR PO ×2 (09:43→21:28)
[2023-08-18] MEDS: LACTULOSE 20 GM/30 ML UDC PO ×2 (09:43→17:23)
--- NOTE | 2023-08-18 10:26 | PM.IMPN ---
Progress Note: A&P Assessment and Plan (1) Left renal stone: Code(s): N20.0 - Calculus of kidney Status: Acute (2) Infection due to ESBL-producing Escherichia coli: Code(s): A49.8 - Other bacterial infections of unspecified site; Z16.12 - Extended spectrum beta lactamase (ESBL) resistance Status: Acute (3) Acute on chronic anemia: Code(s): D64.9 - Anemia, unspecified Status: Acute (4) Pulmonary embolism: Code(s): I26.99 - Other pulmonary embolism without acute cor pulmonale Status: Acute (5) Dementia: Code(s): F03.90 - Unspecified dementia, unspecified severity, without behavioral disturbance, psychotic disturbance, mood disturbance, and anxiety Status: Acute (6) Elevated d-dimer: Code(s): R79.89 - Other specified abnormal findings of blood chemistry Status: Acute Plan 58F w/ PMH depression, dementia, anemia, COPD, HTN, CKD, functional quadriplegia 2/2 to MS, LIBIA, HLD, MS, PE, ESBL presented with abdominal pain. 1) UTI w/ ESBL, encrusted L ureteral stent w/ failed removal on 08/02, repeat cystourethroscopy with ESWL and successful removal of left ureteral stent - recent instrumentation. C&S on 08/07 demonstrate ecoli sensitive to imipenem and ertapenem. again on 08/13 with enterococcus, C&S to follow, however there was a reported mix up in the lab, redraw urine cx again on 08/07 - pending those results. cont ertapenem for now as her white count downtrends - leukocytosis, downtrending. trend procalcitonin as well. monitor for sepsis 2) COVID-19 - finished course of Decadron and remdesivir. now on RA 3) PE - CTPE demonstrated subacute PE in posterior segment of GRABIEL w/o R heart strain. small clot burden and perfusion defects in RLL gone compared to VQ scan. - post procedure, restarting heparin on 08/18, if no evidence of bleeding plan to transition back to [facility] 4) CKD stage 3b - stable. her sCR ranges between 1.3 - 2.0. 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 Feliberto Martinez at [facility] in 2021 5) iron def anemia - isat 10, started on venofor 400/1000mg - FOBT negative 6) acute on chronic anemia 2/2 to suspected GI bleed - possible GI bleed in setting of anticoagulation although FOBT negative. GI consulted. they prefer to monitor - HB stable. ctm. 7) abnormal chest xray - CXR showed airspace opacity in LLL zone. being adequately covered as in plan #1 8) COPD - no active issues. PRN duonebs. FEN: saline lock IV. cardiac diet GI prophylaxis: protonix BID DVT prophylaxis: heparin gtt will transition to Eliquis Lines: pIV Code Status: Full Code Dispo: plan to dc back to [place] [facility]. stable. More than 35 minutes spent on chart review, patient interaction and assessment and plan. Subjective Date/time seen: 08/18/23 10:26 Interval history: NAOE. pt has no complaints. she sits up in bed and eats breakfast. her urine is pink , die trimmer than yesterday and she agrees to start the heparin for clot prevention. Review of Systems Review of Systems: All systems reviewed & are unremarkable except as noted in HPI and below Exam Const: General: comfortable and no acute distress Eyes: Pupils: Equal, round and reactive pupils present Neck: Neck: supple Resp: Effort & Inspection: normal respiratory effort Auscultation: clear to auscultation bilaterally, no crackles, no rales and no rhonchi Cardio: Rate: regular rate Rhythm: regular rhythm Heart sounds: no gallops, no murmurs and no rubs GI: GI Palp: Yes Soft to palpation and No Tenderness to palpation present (GI) : Other: light pink urine in fernandez bag Psych: Mental Status: mental status grossly normal Objective Data Vital Signs Vital Signs: Vital Signs - 24 hr 08/17/23 11:45 08/17/23 11:45 08/17/23 11:53 Temperature Pulse Rate 86 86 84 Respiratory Rate 18 Blood Pressure Pulse Oximetry 96 Oxygen Delivery Room Air Fraction of Inspired Ox
[2023-08-18] MEDS: HEPARIN SOD/D5W 100 UNITS/ML 25,000 UNITS/250 ML BAG 10 UNITS IV CONT (11:56)
[2023-08-18] MEDS: ERTAPENEM 1 GM/NS 50 ML 1 GM/50 ML BAG IVPB (16:12)
[2023-08-18 18:43] LABS: Partial Thromboplastin Time 46.2 SECONDS (22.3-36.8)
[2023-08-18] MEDS: HEPARIN SODIUM 5,000 UNITS/ML VIAL 4000 UNITS IV PUSH (18:55)
[2023-08-18] MEDS: CITALOPRAM HYDROBROMIDE 20 MG TABLET PO (21:28)
[2023-08-18] MEDS: traZODone HCL 50 MG TABLET PO (21:29)
[2023-08-18] MEDS: ACETAMINOPHEN 325 MG TABLET 650 MG PO (21:46)
[2023-08-19 01:53] LABS: Partial Thromboplastin Time 146.2 SECONDS (22.3-36.8)
--- NOTE | 2023-08-19 03:17 | PC.NURSE ---
HEPARIN GTT NOTE: 0200: HEPARIN GTT HELD PER PROTOCOL AFTER PTT 146.2 RESULT VERIFED. 0300: RESUMED AT 10UNITS/HR PER PROTOCOL. TIMED PTT ORDERED FOR 0715 08/19/23.
[2023-08-19 04:49] VITALS: BP 116/85; PULSE 89; RESP 15; TEMP 36.6; O2SAT 99
[2023-08-19 07:01] LABS: Basophils Percent Auto 0.3 % (0.2-1.2); Eosinophils Absolute Auto 0.1 K/mm3 (0-0.3); Eosinophils Percent Auto 0.8 % (0-4.4); Hematocrit 30.9 % (37.0-47.0); Immature Granulocyte Absolute 0.05 K/mm3 (0.00-0.031); Immature Granulocyte Percent A 0.3 % (0-0.5); Lymphocytes Absolute Auto 2.16 K/mm3 (0.9-3.2); Lymphocytes Percent Auto 13.8 % (18.3-44.2); Mean Corpuscular HGB Conc 29.1 g/dl (32-36); Mean Corpuscular Hemoglobin 25.4 pg (26-34); Mean Corpuscular Volume 87.3 fl (80-100); Mean Platelet Volume 11.2 fl (7.4-10.4); Monocytes Absolute Auto 0.7 K/mm3 (0.1-0.6); Monocytes Percent Auto 4.6 % (2.6-8.5); Neutrophils Absolute Auto 12.6 K/mm3 (1.3-6.7); Neutrophils Percent Auto 80.2 % (45.5-73.1); Platelet Count Result 267 k/mm3 (150-375); Red Blood Count 3.54 M/mm3 (4.2-5.4); Red Cell Distribution Width 22.5 % (11.5-14.5); White Blood Count 15.7 K/mm3 (4.5-10.0)
[2023-08-19 08:06] LABS: Partial Thromboplastin Time 63.7 SECONDS (22.3-36.8)
[2023-08-19 08:11] LABS: Anion Gap 12 mmol/L (8-16); Blood Urea Nitrogen 46 mg/dL (7-17); Calcium 9.1 mg/dL (8.4-10.2); Carbon Dioxide 21 mmol/L (22-30); Chloride 107 mmol/L (98-107); Estimated Glomerular Filt Rate 39; Glucose 92 mg/dL (65-110); Potassium 5.2 mmol/L (3.4-5.0); Sodium 140 mmol/L (137-145)
[2023-08-19] MEDS: HEPARIN SODIUM 5,000 UNITS/ML VIAL 2000 UNITS IV PUSH (08:15)
[2023-08-19 08:38] LABS: Procalcitonin 0.1 ng/mL
[2023-08-19 09:29] LABS: Platelet Estimate Adequate (Adequate)
[2023-08-19 09:30] LABS: Anisocytosis 1+ (NORMAL); Burr Cells 1+ (NORMAL); Poikilocytosis 2+ (NORMAL); Schistocytes 1+ (NORMAL)
[2023-08-19] MEDS: polyethylene glycoL 3350 17 GM POWD.PACK PO (10:26)
[2023-08-19] MEDS: LACTULOSE 20 GM/30 ML UDC PO ×2 (10:27→17:57)
[2023-08-19] MEDS: HYDROCORTISONE 5 MG TABLET PO (10:27)
[2023-08-19] MEDS: CHOLECALCIFEROL 1,000 UNITS TABLET 1000 UNITS PO (10:27)
[2023-08-19] MEDS: MEGESTROL ACETATE (*CHEMO) ORAL SUSP 40 MG/ML SYR 400 MG PO ×2 (10:27→17:57)
[2023-08-19 10:28] VITALS: PULSE 89
[2023-08-19] MEDS: PANTOPRAZOLE 40 MG TABLET PO (10:28)
[2023-08-19] MEDS: METOPROLOL TARTRATE 50 MG TAB PO ×2 (10:28→20:49)
[2023-08-19] MEDS: MULTIVITAMINS /C LUTEIN (CENTRUM SILVER) TABLET *BKC 1 TAB PO (10:28)
[2023-08-19] MEDS: guaiFENesin 12 HR 600 MG TABCR PO ×2 (10:28→20:49)
[2023-08-19] MEDS: PREGABALIN (*CRX) 75 MG CAPSULE PO ×2 (10:28→17:57)
[2023-08-19] MEDS: HEPARIN SOD/D5W 100 UNITS/ML 25,000 UNITS/250 ML BAG 11 UNITS IV CONT (12:33)
[2023-08-19 14:00] VITALS: BP 118/78; PULSE 83; RESP 16; TEMP 36.5; O2SAT 98
[2023-08-19] MEDS: SODIUM ZIRCONIUM CYCLOSILICATE 10 GM POWD.PACK PO (14:53)
--- NOTE | 2023-08-19 17:13 | PM.IMPN ---
Progress Note: A&P Assessment and Plan (1) Infection due to ESBL-producing Escherichia coli: Code(s): A49.8 - Other bacterial infections of unspecified site; Z16.12 - Extended spectrum beta lactamase (ESBL) resistance Status: Acute (2) Hematuria: Code(s): R31.9 - Hematuria, unspecified Status: Acute (3) Pulmonary embolism: Code(s): I26.99 - Other pulmonary embolism without acute cor pulmonale Status: Acute (4) Dementia: Code(s): F03.90 - Unspecified dementia, unspecified severity, without behavioral disturbance, psychotic disturbance, mood disturbance, and anxiety Status: Acute Plan 58F w/ PMH depression, dementia, anemia, COPD, HTN, CKD, functional quadriplegia 2/2 to MS, LIBIA, HLD, MS, PE, ESBL presented with abdominal pain. 1) UTI w/ ESBL, encrusted L ureteral stent w/ failed removal on 08/02, repeat cystourethroscopy with ESWL and successful removal of left ureteral stent - recent instrumentation. C&S on 08/07 demonstrate ecoli sensitive to imipenem and ertapenem. again on 08/13 with enterococcus, C&S to follow, however there was a reported mix up in the lab, redraw urine cx again on 08/07 - clear.... - cont ertapenem for now and ensure white count downtrend. monitor procal 2) COVID-19 - finished course of Decadron and remdesivir. now on RA 3) PE - CTPE demonstrated subacute PE in posterior segment of GRABIEL w/o R heart strain. small clot burden and perfusion defects in RLL gone compared to VQ scan. - post procedure, restarting heparin on 08/18, 08/19, urine bloody, d/c heparin 4) CKD stage 3b - stable. her sCR ranges between 1.3 - 2.0. 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 Feliberto Martinez at [facility] in 2021 5) iron def anemia - isat 10, started on venofor 400/1000mg - FOBT negative 6) acute on chronic anemia 2/2 to suspected GI bleed - possible GI bleed in setting of anticoagulation although FOBT negative. GI consulted. they prefer to monitor - HB stable. ctm. 7) abnormal chest xray - CXR showed airspace opacity in LLL zone. being adequately covered as in plan #1 8) COPD - no active issues. PRN duonebs. FEN: saline lock IV. cardiac diet GI prophylaxis: protonix BID DVT prophylaxis: holding Lines: pIV Code Status: Full Code Dispo: plan to dc back to [place] [facility]. stable. More than 35 minutes spent on chart review, patient interaction and assessment and plan. Subjective Date/time seen: 08/19/23 17:13 Interval history: NAOE. pt is without complaints, not as talkative today as usual. Review of Systems Review of Systems: All systems reviewed & are unremarkable except as noted in HPI and below Exam Const: General: comfortable and no acute distress Eyes: Pupils: Equal, round and reactive pupils present Neck: Neck: supple Resp: Effort & Inspection: normal respiratory effort Auscultation: clear to auscultation bilaterally Cardio: Rate: regular rate Rhythm: regular rhythm Heart sounds: no gallops, no murmurs and no rubs GI: GI Palp: Yes Soft to palpation Auscultation: normal bowel sounds Extrem: General: no edema Objective Data Vital Signs Vital Signs: Vital Signs - 24 hr 08/18/23 19:48 08/18/23 21:28 08/19/23 04:49 Temperature 97.6 F 97.9 F Pulse Rate 99 90 89 Respiratory Rate 17 15 Blood Pressure 100/69 116/85 Pulse Oximetry 99 99 08/19/23 10:28 08/19/23 14:00 Temperature 97.7 F Pulse Rate 89 83 Respiratory Rate 16 Blood Pressure 118/78 Pulse Oximetry 98 Intake/Output Intake/Output: Intake & Output 08/16/23 08/17/23 08/18/23 08/19/23 23:59 23:59 23:59 23:59 Intake Total 760 1390 1620 882 Output Total 2450 1550 300 Balance -1690 1390 70 582 Meds/Results Medications: Active Medications Generic Name Dose Route Start Last Admin Trade Name Freq PRN Reason Stop Dose Admin Acetaminophen 650 mg 07/27/23 14:28 08/18/23 21:46 Acetaminophen 325 Mg Tablet PO 650 mg Q4H PRN Adm
[2023-08-19] MEDS: ERTAPENEM 1 GM/NS 50 ML 1 GM/50 ML BAG IVPB (17:28)
[2023-08-19 20:28] VITALS: BP 103/68; PULSE 86; RESP 20; TEMP 36; O2SAT 99
[2023-08-19 20:49] VITALS: PULSE 86
[2023-08-19] MEDS: CITALOPRAM HYDROBROMIDE 20 MG TABLET PO (20:49)
[2023-08-19] MEDS: traZODone HCL 50 MG TABLET PO (20:49)
[2023-08-20 03:56] VITALS: BP 117/72; PULSE 81; RESP 20; TEMP 36.4; O2SAT 99
[2023-08-20 06:07] LABS: Basophils Percent Auto 0.3 % (0.2-1.2); Eosinophils Absolute Auto 0.1 K/mm3 (0-0.3); Eosinophils Percent Auto 0.8 % (0-4.4); Hematocrit 32.3 % (37.0-47.0); Hemoglobin 9.3 g/dL (12.0-15.0); Immature Granulocyte Absolute 0.06 K/mm3 (0.00-0.031); Immature Granulocyte Percent A 0.6 % (0-0.5); Lymphocytes Absolute Auto 1.72 K/mm3 (0.9-3.2); Lymphocytes Percent Auto 15.8 % (18.3-44.2); Mean Corpuscular HGB Conc 28.8 g/dl (32-36); Mean Corpuscular Hemoglobin 25.3 pg (26-34); Mean Corpuscular Volume 87.8 fl (80-100); Mean Platelet Volume 11.4 fl (7.4-10.4); Monocytes Absolute Auto 0.5 K/mm3 (0.1-0.6); Monocytes Percent Auto 4.5 % (2.6-8.5); Neutrophils Absolute Auto 8.5 K/mm3 (1.3-6.7); Platelet Count Result 227 k/mm3 (150-375); Red Blood Count 3.68 M/mm3 (4.2-5.4); Red Cell Distribution Width 22.5 % (11.5-14.5); White Blood Count 10.9 K/mm3 (4.5-10.0)
[2023-08-20 06:16] LABS: Anion Gap 10 mmol/L (8-16); Blood Urea Nitrogen 47 mg/dL (7-17); Calcium 9.3 mg/dL (8.4-10.2); Carbon Dioxide 23 mmol/L (22-30); Chloride 106 mmol/L (98-107); Creatine Kinase < 20 U/L (30-135); Estimated Glomerular Filt Rate 33; Glucose 98 mg/dL (65-110); Potassium 5.1 mmol/L (3.4-5.0); Sodium 139 mmol/L (137-145)
[2023-08-20 06:41] LABS: Procalcitonin 0.1 ng/mL
[2023-08-20 09:16] LABS: Anisocytosis 1+ (NORMAL); Hypochromasia 1+ (NORMAL); Ovalocytes 1+ (NORMAL); Platelet Estimate Adequate (Adequate); Poikilocytosis 1+ (NORMAL); Schistocytes None Seen (NORMAL)
[2023-08-20 10:17] VITALS: PULSE 82
[2023-08-20] MEDS: PANTOPRAZOLE 40 MG TABLET PO (10:17)
[2023-08-20] MEDS: polyethylene glycoL 3350 17 GM POWD.PACK PO (10:17)
[2023-08-20] MEDS: guaiFENesin 12 HR 600 MG TABCR PO ×2 (10:17→20:37)
[2023-08-20] MEDS: MEGESTROL ACETATE (*CHEMO) ORAL SUSP 40 MG/ML SYR 400 MG PO ×2 (10:17→17:45)
[2023-08-20] MEDS: MULTIVITAMINS /C LUTEIN (CENTRUM SILVER) TABLET *BKC 1 TAB PO (10:17)
[2023-08-20] MEDS: HYDROCORTISONE 5 MG TABLET PO (10:17)
[2023-08-20] MEDS: PREGABALIN (*CRX) 75 MG CAPSULE PO ×2 (10:17→17:46)
[2023-08-20] MEDS: METOPROLOL TARTRATE 50 MG TAB PO ×2 (10:17→20:36)
[2023-08-20] MEDS: CHOLECALCIFEROL 1,000 UNITS TABLET 1000 UNITS PO (10:17)
[2023-08-20] MEDS: LACTULOSE 20 GM/30 ML UDC PO ×2 (10:45→17:46)
--- NOTE | 2023-08-20 12:57 | PM.IMPN ---
Progress Note: A&P Assessment and Plan (1) Infection due to ESBL-producing Escherichia coli: Code(s): A49.8 - Other bacterial infections of unspecified site; Z16.12 - Extended spectrum beta lactamase (ESBL) resistance Status: Acute (2) Acute on chronic anemia: Code(s): D64.9 - Anemia, unspecified Status: Acute (3) Pulmonary embolism: Code(s): I26.99 - Other pulmonary embolism without acute cor pulmonale Status: Acute Plan 58F w/ PMH depression, dementia, anemia, COPD, HTN, CKD, functional quadriplegia 2/2 to MS, LIBIA, HLD, MS, PE, ESBL presented with abdominal pain. 1) UTI w/ ESBL, encrusted L ureteral stent w/ failed removal on 08/02, repeat cystourethroscopy with ESWL and successful removal of left ureteral stent on 08/16 - C&S on 08/07 demonstrate ecoli sensitive to imipenem and ertapenem. ertapenem was given. another urine culture on 08/13 demonstrated VRE, however there was reported lab error. Therefore, urine culture again pulled on 08/17 and was clear - combinining this with her white count coming down, pro julianne low, and stent finally removed, we will stop the ertapenem. 2) COVID-19 - finished course of Decadron and remdesivir. now on RA 3) PE - CTPE demonstrated subacute PE in posterior segment of GRABIEL w/o R heart strain. small clot burden and perfusion defects in RLL gone compared to VQ scan. - post procedure, restarting heparin on 08/18, 08/19, urine bloody, d/c'ed heparin. 08/20 the urine is becoming more pink again, consider restarting eliquis tomorrow 4) CKD stage 3b - stable. her sCR ranges between 1.3 - 2.0. 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 Feliberto Martinez at [facility] in 2021 5) iron def anemia - isat 10, started on venofor 400/1000mg - FOBT negative 6) acute on chronic anemia 2/2 to suspected GI bleed - possible GI bleed in setting of anticoagulation although FOBT negative. GI consulted. they prefer to monitor - HB stable. ctm. 7) abnormal chest xray - CXR showed airspace opacity in LLL zone. adequately covered as in plan #1 8) COPD - no active issues. PRN duonebs. FEN: saline lock IV. cardiac diet GI prophylaxis: protonix BID DVT prophylaxis: holding, consider starting eliquis on 08/21 Lines: pIV Code Status: Full Code Dispo: plan to dc back to [place] [facility]R. stable. patient issues mostly resolved. abx off. monitor urine quality and restart eliquis when signs of bleeding stopped, then consider d/c back to [place] [facility] More than 35 minutes spent on chart review, patient interaction and assessment and plan. Subjective Date/time seen: 08/20/23 12:57 Interval history: NAOE. pt is in her usual state, and she denies any complaints. she ate breakfast without issue Review of Systems Review of Systems: All systems reviewed & are unremarkable except as noted in HPI and below Exam Const: General: comfortable and no acute distress Eyes: Pupils: Equal, round and reactive pupils present Neck: Neck: supple Resp: Effort & Inspection: normal respiratory effort Auscultation: clear to auscultation bilaterally Cardio: Rate: regular rate Rhythm: regular rhythm Heart sounds: no gallops, no murmurs and no rubs GI: GI Palp: Yes Soft to palpation Urinary Catheter: Urinary Catheter: urine pink and urine red Extrem: General: no edema Objective Data Vital Signs Vital Signs: Vital Signs - 24 hr 08/19/23 14:00 08/19/23 20:28 08/19/23 20:49 Temperature 97.7 F 96.8 F L Pulse Rate 83 86 86 Respiratory Rate 16 20 Blood Pressure 118/78 103/68 Pulse Oximetry 98 99 Oxygen Delivery 08/19/23 20:00 08/20/23 03:56 08/20/23 10:17 Temperature 97.5 F L Pulse Rate 81 82 Respiratory Rate 20 Blood Pressure 117/72 Pulse Oximetry 99 Oxygen Delivery Room Air 08/20/23 08:00 Temperature Pulse Rate Respiratory Rate Blood Pressure Pulse Oximetry Oxygen Delivery Room Air Intake/Output Intake/Output: Intake & Output
[2023-08-20 15:17] VITALS: BP 102/71; PULSE 89; RESP 18; TEMP 36.3; O2SAT 99
[2023-08-20] MEDS: ERTAPENEM 1 GM/NS 50 ML 1 GM/50 ML BAG IVPB (17:45)
[2023-08-20 20:28] VITALS: BP 100/62; PULSE 93; RESP 18; TEMP 37; O2SAT 98
[2023-08-20 20:36] VITALS: PULSE 93
[2023-08-20] MEDS: CITALOPRAM HYDROBROMIDE 20 MG TABLET PO (20:37)
[2023-08-20] MEDS: traZODone HCL 50 MG TABLET PO (20:37)
[2023-08-21 03:47] VITALS: BP 123/73; RESP 18; TEMP 36.6; O2SAT 99
[2023-08-21 06:07] LABS: Hematocrit 32.1 % (37.0-47.0); Hemoglobin 9.2 g/dL (12.0-15.0); Mean Corpuscular HGB Conc 28.7 g/dl (32-36); Mean Corpuscular Hemoglobin 25.3 pg (26-34); Mean Corpuscular Volume 88.2 fl (80-100); Mean Platelet Volume 10.5 fl (7.4-10.4); Platelet Count Result 246 k/mm3 (150-375); Red Blood Count 3.64 M/mm3 (4.2-5.4); Red Cell Distribution Width 22.3 % (11.5-14.5); White Blood Count 13.6 K/mm3 (4.5-10.0)
[2023-08-21 06:28] LABS: Anion Gap 10 mmol/L (8-16); Blood Urea Nitrogen 57 mg/dL (7-17); Calcium 9.2 mg/dL (8.4-10.2); Carbon Dioxide 23 mmol/L (22-30); Chloride 108 mmol/L (98-107); Estimated Glomerular Filt Rate 27; Glucose 104 mg/dL (65-110); Sodium 141 mmol/L (137-145)
[2023-08-21 08:07] LABS: Phosphorus 3.9 mg/dL (2.5-4.5)
[2023-08-21 08:51] VITALS: PULSE 92
[2023-08-21] MEDS: HYDROCORTISONE 5 MG TABLET PO (08:51)
[2023-08-21] MEDS: CHOLECALCIFEROL 1,000 UNITS TABLET 1000 UNITS PO (08:51)
[2023-08-21] MEDS: PREGABALIN (*CRX) 75 MG CAPSULE PO (08:51)
[2023-08-21] MEDS: LACTULOSE 20 GM/30 ML UDC PO (08:51)
[2023-08-21] MEDS: METOPROLOL TARTRATE 50 MG TAB PO ×2 (08:51→21:44)
[2023-08-21] MEDS: MULTIVITAMINS /C LUTEIN (CENTRUM SILVER) TABLET *BKC 1 TAB PO (08:51)
[2023-08-21] MEDS: polyethylene glycoL 3350 17 GM POWD.PACK PO (08:51)
[2023-08-21] MEDS: guaiFENesin 12 HR 600 MG TABCR PO ×2 (08:51→21:44)
[2023-08-21] MEDS: PANTOPRAZOLE 40 MG TABLET PO (08:51)
[2023-08-21] MEDS: MEGESTROL ACETATE (*CHEMO) ORAL SUSP 40 MG/ML SYR 400 MG PO (08:51)
[2023-08-21] MEDS: SODIUM CHLORIDE 0.9% IV 1,000 ML 50 ML IV CONT (08:54)
--- NOTE | 2023-08-21 09:44 | PCOTNOTE ---
Spoke with care coordination and Hospitalist (Guy) who are in agreement of cancellation of OT/PT orders. Patient is dependent and bedbound at baseline.
--- NOTE | 2023-08-21 10:44 | PCNFU ---
Nutrition Follow-Up Complete: Moderate protein calorie malnutrition related to inadequate energy intake with increased nutrient needs as evidenced by significant weight loss of -18% x 6 months, increased needs for multiple areas of wound healing, insufficient po intake Goal: Increased nutrient needs related to altered skin integrity as evidenced by noted pressure injuries PO intake 75% or greater for meals and supplements Patient is meeting goal. No new goal. Pt current nutrition is Soft and Bite Sized, Level 6. Last recorded weight is 65.5 kg, up from 59 kg on admit. Bowel Motility: +BM reported 08/19 Labs Reviewed:Cr 1.9,GFR 27, BUN 57, Hct 32.1,Hgb 9.2 Meds Noted:Megace, Protonix, Pepcid, Miralax, MVI Skin: Stage III R heel, St III BL ischium Additional Notes: Patient remains on a soft and bite sized, Level 6 diet. Oral Intake has been good 500-100% of meals. Patient remains on Ensure Compact BID (220 kcals and 9 gms protein) and Protein Modular of Maged BID (80 kcals, 2.5 gms protein/7 gms slovenian and glutamine. Agree with diet orders. Monitor diet order, intake, wt, labs, skin. Follow up in 7 days.
[2023-08-21 13:24] VITALS: BP 94/55; PULSE 92; RESP 14; TEMP 36.4; O2SAT 95
--- NOTE | 2023-08-21 17:13 | PM.IMPN ---
Progress Note: A&P Assessment and Plan (1) Left renal stone: Code(s): N20.0 - Calculus of kidney Status: Acute (2) Infection due to ESBL-producing Escherichia coli: Code(s): A49.8 - Other bacterial infections of unspecified site; Z16.12 - Extended spectrum beta lactamase (ESBL) resistance Status: Acute (3) Hematuria: Code(s): R31.9 - Hematuria, unspecified Status: Acute (4) Acute on chronic anemia: Code(s): D64.9 - Anemia, unspecified Status: Acute (5) Pulmonary embolism: Code(s): I26.99 - Other pulmonary embolism without acute cor pulmonale Status: Acute (6) Dementia: Code(s): F03.90 - Unspecified dementia, unspecified severity, without behavioral disturbance, psychotic disturbance, mood disturbance, and anxiety Status: Acute (7) GI bleed: Code(s): K92.2 - Gastrointestinal hemorrhage, unspecified Status: Acute (8) Abnormal urinalysis: Code(s): R82.90 - Unspecified abnormal findings in urine Status: Acute (9) Abnormal chest x-ray: Code(s): R93.89 - Abnormal findings on diagnostic imaging of other specified body structures Status: Acute (10) Acute kidney injury: Code(s): N17.9 - Acute kidney failure, unspecified Status: Acute (11) Elevated d-dimer: Code(s): R79.89 - Other specified abnormal findings of blood chemistry Status: Acute (12) Chronic anemia: Code(s): D64.9 - Anemia, unspecified Status: Acute (13) Chronic respiratory failure with hypoxia, on home oxygen therapy: Code(s): J96.11 - Chronic respiratory failure with hypoxia; Z99.81 - Dependence on supplemental oxygen Status: Acute (14) Chronic obstructive pulmonary disease: Code(s): J44.9 - Chronic obstructive pulmonary disease, unspecified Status: Acute (15) Pneumonia: Code(s): J18.9 - Pneumonia, unspecified organism Status: Acute (16) Sepsis: Code(s): A41.9 - Sepsis, unspecified organism Status: Acute (17) COVID-19: Code(s): U07.1 - COVID-19 Status: Acute (18) Anemia: Code(s): D64.9 - Anemia, unspecified Status: Acute (19) Leukocytosis: Code(s): D72.829 - Elevated white blood cell count, unspecified Status: Acute (20) Hypokalemia: Code(s): E87.6 - Hypokalemia Status: Acute (21) Vomiting: Qualifiers: Nausea presence: with nausea Vomiting type: unspecified Qualified Code(s): R11.2 - Nausea with vomiting, unspecified Code(s): R11.10 - Vomiting, unspecified Status: Acute (22) S/P ureteral stent placement: Code(s): Z96.0 - Presence of urogenital implants Status: Acute (23) Urinary tract infection: Qualifiers: Hematuria presence: with hematuria Urinary tract infection type: site unspecified Qualified Code(s): N39.0 - Urinary tract infection, site not specified; R31.9 - Hematuria, unspecified Code(s): N39.0 - Urinary tract infection, site not specified Status: Acute (24) Sinus tachycardia: Code(s): R00.0 - Tachycardia, unspecified Status: Acute (25) Septic shock: Code(s): A41.9 - Sepsis, unspecified organism; R65.21 - Severe sepsis with septic shock Status: Acute (26) Sepsis: Code(s): A41.9 - Sepsis, unspecified organism Status: Acute (27) Altered mental state: Code(s): R41.82 - Altered mental status, unspecified Status: Acute (28) Elevated troponin: Code(s): R77.8 - Other specified abnormalities of plasma proteins Status: Acute (29) RADHA (acute kidney injury): Code(s): N17.9 - Acute kidney failure, unspecified Status: Acute (30) HCAP (healthcare-associated pneumonia): Code(s): J18.9 - Pneumonia, unspecified organism Status: Acute (31) Urinary tract infection: Code(s): N39.0 - Urinary tract infection, site not specified Sta
[2023-08-21 21:00] VITALS: BP 110/75; PULSE 84; RESP 18; TEMP 36; O2SAT 98
[2023-08-21 21:44] VITALS: PULSE 84
[2023-08-21] MEDS: CITALOPRAM HYDROBROMIDE 20 MG TABLET PO (21:44)
[2023-08-21] MEDS: APIXABAN 5 MG TABLET PO (21:44)
[2023-08-21] MEDS: traZODone HCL 50 MG TABLET PO (21:44)
[2023-08-22] VITALS (7 sets, daily range): BP systolic 102–127; BP diastolic 67–79; PULSE 74–87; RESP 14–18; TEMP 36–36.9; O2SAT 98–99
[2023-08-22] MEDS: SODIUM CHLORIDE 0.9% IV 1,000 ML 50 ML IV CONT (05:07)
[2023-08-22 06:15] LABS: Basophils Percent Auto 0.2 % (0.2-1.2); Eosinophils Absolute Auto 0.2 K/mm3 (0-0.3); Eosinophils Percent Auto 1.8 % (0-4.4); Hematocrit 30.4 % (37.0-47.0); Hemoglobin 8.8 g/dL (12.0-15.0); Immature Granulocyte Absolute 0.09 K/mm3 (0.00-0.031); Immature Granulocyte Percent A 0.7 % (0-0.5); Lymphocytes Absolute Auto 1.76 K/mm3 (0.9-3.2); Lymphocytes Percent Auto 14.5 % (18.3-44.2); Mean Corpuscular HGB Conc 28.9 g/dl (32-36); Mean Corpuscular Hemoglobin 25.4 pg (26-34); Mean Corpuscular Volume 87.9 fl (80-100); Mean Platelet Volume 11.2 fl (7.4-10.4); Monocytes Absolute Auto 0.5 K/mm3 (0.1-0.6); Monocytes Percent Auto 4.4 % (2.6-8.5); Neutrophils Absolute Auto 9.5 K/mm3 (1.3-6.7); Neutrophils Percent Auto 78.4 % (45.5-73.1); Platelet Count Result 258 k/mm3 (150-375); Red Blood Count 3.46 M/mm3 (4.2-5.4); Red Cell Distribution Width 22.5 % (11.5-14.5); White Blood Count 12.1 K/mm3 (4.5-10.0)
[2023-08-22 06:27] LABS: Anion Gap 10 mmol/L (8-16); Blood Urea Nitrogen 66 mg/dL (7-17); Calcium 9.1 mg/dL (8.4-10.2); Carbon Dioxide 21 mmol/L (22-30); Chloride 110 mmol/L (98-107); Estimated Glomerular Filt Rate 36; Glucose 92 mg/dL (65-110); Potassium 5.1 mmol/L (3.4-5.0); Sodium 141 mmol/L (137-145)
[2023-08-22 07:02] LABS: Hypochromasia 1+ (NORMAL); Ovalocytes 1+ (NORMAL); Platelet Estimate Adequate (Adequate); Poikilocytosis 1+ (NORMAL); Schistocytes Rare (NORMAL)
--- NOTE | 2023-08-22 08:01 | PM.IMPN ---
Progress Note: A&P Assessment and Plan (1) Left renal stone: Code(s): N20.0 - Calculus of kidney Status: Acute (2) Infection due to ESBL-producing Escherichia coli: Code(s): A49.8 - Other bacterial infections of unspecified site; Z16.12 - Extended spectrum beta lactamase (ESBL) resistance Status: Acute (3) Hematuria: Code(s): R31.9 - Hematuria, unspecified Status: Acute (4) Acute on chronic anemia: Code(s): D64.9 - Anemia, unspecified Status: Acute (5) Pulmonary embolism: Code(s): I26.99 - Other pulmonary embolism without acute cor pulmonale Status: Acute (6) Dementia: Code(s): F03.90 - Unspecified dementia, unspecified severity, without behavioral disturbance, psychotic disturbance, mood disturbance, and anxiety Status: Acute (7) GI bleed: Code(s): K92.2 - Gastrointestinal hemorrhage, unspecified Status: Acute (8) Abnormal urinalysis: Code(s): R82.90 - Unspecified abnormal findings in urine Status: Acute (9) Abnormal chest x-ray: Code(s): R93.89 - Abnormal findings on diagnostic imaging of other specified body structures Status: Acute (10) Acute kidney injury: Code(s): N17.9 - Acute kidney failure, unspecified Status: Acute (11) Elevated d-dimer: Code(s): R79.89 - Other specified abnormal findings of blood chemistry Status: Acute (12) Chronic anemia: Code(s): D64.9 - Anemia, unspecified Status: Acute (13) Chronic respiratory failure with hypoxia, on home oxygen therapy: Code(s): J96.11 - Chronic respiratory failure with hypoxia; Z99.81 - Dependence on supplemental oxygen Status: Acute (14) Chronic obstructive pulmonary disease: Code(s): J44.9 - Chronic obstructive pulmonary disease, unspecified Status: Acute (15) Pneumonia: Code(s): J18.9 - Pneumonia, unspecified organism Status: Acute (16) Sepsis: Code(s): A41.9 - Sepsis, unspecified organism Status: Acute (17) COVID-19: Code(s): U07.1 - COVID-19 Status: Acute (18) Anemia: Code(s): D64.9 - Anemia, unspecified Status: Acute (19) Leukocytosis: Code(s): D72.829 - Elevated white blood cell count, unspecified Status: Acute (20) Hypokalemia: Code(s): E87.6 - Hypokalemia Status: Acute (21) Vomiting: Qualifiers: Nausea presence: with nausea Vomiting type: unspecified Qualified Code(s): R11.2 - Nausea with vomiting, unspecified Code(s): R11.10 - Vomiting, unspecified Status: Acute (22) S/P ureteral stent placement: Code(s): Z96.0 - Presence of urogenital implants Status: Acute (23) Urinary tract infection: Qualifiers: Hematuria presence: with hematuria Urinary tract infection type: site unspecified Qualified Code(s): N39.0 - Urinary tract infection, site not specified; R31.9 - Hematuria, unspecified Code(s): N39.0 - Urinary tract infection, site not specified Status: Acute (24) Sinus tachycardia: Code(s): R00.0 - Tachycardia, unspecified Status: Acute (25) Septic shock: Code(s): A41.9 - Sepsis, unspecified organism; R65.21 - Severe sepsis with septic shock Status: Acute (26) Altered mental state: Code(s): R41.82 - Altered mental status, unspecified Status: Acute (27) Elevated troponin: Code(s): R77.8 - Other specified abnormalities of plasma proteins Status: Acute (28) HCAP (healthcare-associated pneumonia): Code(s): J18.9 - Pneumonia, unspecified organism Status: Acute (29) Functional quadriplegia secondary to MS: Code(s): G35 - Multiple sclerosis; R53.2 - Functional quadriplegia Status: Acute (30) Tachycardia: Code(s): R00.0 - Tachycardia, unspecified Status: Acute (31) Solitary left kidney: Status: Acute (32) Fecal impaction in rectu
[2023-08-22] MEDS: PREGABALIN (*CRX) 75 MG CAPSULE PO ×2 (08:58→18:07)
[2023-08-22] MEDS: APIXABAN 5 MG TABLET PO ×2 (08:58→20:32)
[2023-08-22] MEDS: guaiFENesin 12 HR 600 MG TABCR PO ×2 (08:58→20:33)
[2023-08-22] MEDS: METOPROLOL TARTRATE 50 MG TAB PO ×2 (08:58→20:32)
[2023-08-22] MEDS: CHOLECALCIFEROL 1,000 UNITS TABLET 1000 UNITS PO (08:58)
[2023-08-22] MEDS: MULTIVITAMINS /C LUTEIN (CENTRUM SILVER) TABLET *BKC 1 TAB PO (08:58)
[2023-08-22] MEDS: PANTOPRAZOLE 40 MG TABLET PO (08:58)
[2023-08-22] MEDS: HYDROCORTISONE 5 MG TABLET PO (08:58)
[2023-08-22] MEDS: MEGESTROL ACETATE (*CHEMO) ORAL SUSP 40 MG/ML SYR 400 MG PO ×2 (09:04→18:07)
[2023-08-22] MEDS: LACTULOSE 20 GM/30 ML UDC PO ×2 (09:04→18:07)
[2023-08-22 13:19] LABS: Glucose Point of Care 120 mg/dl (65-105)
--- NOTE | 2023-08-22 15:09 | PM.DS ---
DS: Admitting Diagnosis Discharge Date 08/22/23 Admitting Diagnosis (1) Left renal stone: ?Code(s): N20.0 - Calculus of kidney ?Status:?Acute (2) Infection due to ESBL-producing Escherichia coli: ?Code(s): A49.8 - Other bacterial infections of unspecified site; Z16.12 - Extended spectrum beta lactamase (ESBL) resistance ?Status:?Acute (3) Hematuria: ?Code(s): R31.9 - Hematuria, unspecified ?Status:?Acute (4) Acute on chronic anemia: ?Code(s): D64.9 - Anemia, unspecified ?Status:?Acute (5) Pulmonary embolism: ?Code(s): I26.99 - Other pulmonary embolism without acute cor pulmonale ?Status:?Acute (6) Dementia: ?Code(s): F03.90 - Unspecified dementia, unspecified severity, without behavioral disturbance, psychotic disturbance, mood disturbance, and anxiety ?Status:?Acute (7) GI bleed: ?Code(s): K92.2 - Gastrointestinal hemorrhage, unspecified ?Status:?Acute (8) Abnormal urinalysis: DS: Discharge Diagnosis Discharge Diagnosis (1) Left renal stone: Code(s): N20.0 - Calculus of kidney Status: Acute (2) Infection due to ESBL-producing Escherichia coli: Code(s): A49.8 - Other bacterial infections of unspecified site; Z16.12 - Extended spectrum beta lactamase (ESBL) resistance Status: Acute (3) Hematuria: Code(s): R31.9 - Hematuria, unspecified Status: Acute (4) Acute on chronic anemia: Code(s): D64.9 - Anemia, unspecified Status: Acute (5) Pulmonary embolism: Code(s): I26.99 - Other pulmonary embolism without acute cor pulmonale Status: Acute (6) Dementia: Code(s): F03.90 - Unspecified dementia, unspecified severity, without behavioral disturbance, psychotic disturbance, mood disturbance, and anxiety Status: Acute (7) GI bleed: Code(s): K92.2 - Gastrointestinal hemorrhage, unspecified Status: Acute (8) Abnormal urinalysis: Code(s): R82.90 - Unspecified abnormal findings in urine Status: Acute (9) Abnormal chest x-ray: Code(s): R93.89 - Abnormal findings on diagnostic imaging of other specified body structures Status: Acute (10) Acute kidney injury: Code(s): N17.9 - Acute kidney failure, unspecified Status: Acute (11) Elevated d-dimer: Code(s): R79.89 - Other specified abnormal findings of blood chemistry Status: Acute (12) Chronic anemia: Code(s): D64.9 - Anemia, unspecified Status: Acute (13) Chronic respiratory failure with hypoxia, on home oxygen therapy: Code(s): J96.11 - Chronic respiratory failure with hypoxia; Z99.81 - Dependence on supplemental oxygen Status: Acute (14) Chronic obstructive pulmonary disease: Code(s): J44.9 - Chronic obstructive pulmonary disease, unspecified Status: Acute (15) Pneumonia: Code(s): J18.9 - Pneumonia, unspecified organism Status: Acute (16) Sepsis: Code(s): A41.9 - Sepsis, unspecified organism Status: Acute (17) COVID-19: Code(s): U07.1 - COVID-19 Status: Acute (18) Anemia: Code(s): D64.9 - Anemia, unspecified Status: Acute (19) Leukocytosis: Code(s): D72.829 - Elevated white blood cell count, unspecified Status: Acute (20) Hypokalemia: Code(s): E87.6 - Hypokalemia Status: Acute (21) Vomiting: Qualifiers: Nausea presence: with nausea Vomiting type: unspecified Qualified Code(s): R11.2 - Nausea with vomiting, unspecified Code(s): R11.10 - Vomiting, unspecified Status: Acute (22) S/P ureteral stent placement: Code(s): Z96.0 - Presence of urogenital implants Status: Acute (23) Urinary tract infection: Qualifiers: Hematuria presence: with hematuria Urinary tract infection type: site unspecified Qualified Code(s): N39.0 - Urinary tract infection, site not specified; R31.9 - Hematuria, unspec
--- NOTE | 2023-08-22 17:29 | ECG_ITS ---
Measurements Intervals [place] Rate: 83 P: 39 CA: 152 QRS: -8 QRSD: 78 T: 12 QT: 346 QTc: 408 Interpretive Statements SINUS RHYTHM LOW QRS VOLTAGE IN PRECORDIAL LEADS VOLTAGE CRITERIA FOR LVH CONSIDER INFERIOR INFARCT, AGE INDETERMINATE ABNORMAL ECG COMPARED TO ECG 07/27/2023 05:17:10 SINUS RHYTHM NOW PRESENT Electronically Signed On 08-23-2023 8:44:25 CLAY MOLDER by Murali Osei D.O.
[2023-08-22 18:47] LABS: Troponin I < 0.012 ng/mL (0.000-0.034)
[2023-08-22] MEDS: traZODone HCL 50 MG TABLET PO (20:32)
[2023-08-22] MEDS: CITALOPRAM HYDROBROMIDE 20 MG TABLET PO (20:32)
[2023-08-23] VITALS: PULSE 80
[2023-08-23 04:00] VITALS: PULSE 74
[2023-08-23 04:55] VITALS: BP 127/84; PULSE 92; RESP 16; TEMP 36.8; O2SAT 99
[2023-08-23 08:00] VITALS: PULSE 68
[2023-08-23 08:11] VITALS: PULSE 72
[2023-08-23] MEDS: APIXABAN 5 MG TABLET PO (08:11)
[2023-08-23] MEDS: PANTOPRAZOLE 40 MG TABLET PO (08:11)
[2023-08-23] MEDS: HYDROCORTISONE 5 MG TABLET PO (08:11)
[2023-08-23] MEDS: PREGABALIN (*CRX) 75 MG CAPSULE PO (08:11)
[2023-08-23] MEDS: guaiFENesin 12 HR 600 MG TABCR PO (08:11)
[2023-08-23] MEDS: METOPROLOL TARTRATE 50 MG TAB PO (08:11)
[2023-08-23] MEDS: MULTIVITAMINS /C LUTEIN (CENTRUM SILVER) TABLET *BKC 1 TAB PO (08:11)
[2023-08-23] MEDS: CHOLECALCIFEROL 1,000 UNITS TABLET 1000 UNITS PO (08:12)
[2023-08-23] MEDS: LACTULOSE 20 GM/30 ML UDC PO (08:12)
[2023-08-23] MEDS: MEGESTROL ACETATE (*CHEMO) ORAL SUSP 40 MG/ML SYR 400 MG PO (08:12)
[2023-08-23 12:00] VITALS: PULSE 84
== END 2023-08-23 13:00 | DRG 177 ==
LOC: ANHED 07:23 → ANH2MED 08:32
PROVIDERS: Family Medicine; Internal Medicine; Nurse Practitioner Adult Health; Physician Assistant; Urology; Admitting Provider General Practice; Emergency Provider Student in an Organized Health Care Education/Training Program; PCP Internal Medicine; Visit Provider Hospitalist
PROC: 0TJB8ZZ Inspection of Bladder, Via Natural or Artificial Opening Endoscopic (ICD-10-PCS; CPT 52352; principal; 2023-08-02 15:45)
PROC: 0TF4XZZ Fragmentation in Left Kidney Pelvis, External Approach (ICD-10-PCS; CPT 50590; principal; 2023-08-16 15:30)
PROC: 0TF4XZZ Fragmentation in Left Kidney Pelvis, External Approach (ICD-10-PCS; CPT 52352; 2023-08-16 15:30)
DX: U07.1 COVID-19 (principal); I26.99 Other pulmonary embolism without acute cor pulmonale; L89.613 Pressure ulcer of right heel, stage 3; L89.143 Pressure ulcer of left lower back, stage 3; L89.133 Pressure ulcer of right lower back, stage 3; R53.2 Functional quadriplegia; J18.9 Pneumonia, unspecified organism; N17.9 Acute kidney failure, unspecified; J96.11 Chronic respiratory failure with hypoxia; N39.0 Urinary tract infection, site not specified; Z16.12 Extended spectrum beta lactamase (ESBL) resistance; N13.2 Hydronephrosis with renal and ureteral calculous obstruction; G35 Multiple sclerosis; E78.5 Hyperlipidemia, unspecified; Z90.5 Acquired absence of kidney; J44.9 Chronic obstructive pulmonary disease, unspecified; Z99.81 Dependence on supplemental oxygen; Z87.891 Personal history of nicotine dependence; Z86.711 Personal history of pulmonary embolism; F32.A Depression, unspecified; D50.9 Iron deficiency anemia, unspecified; B96.29 Other Escherichia coli [E. coli] as the cause of diseases classified elsewhere; K21.9 Gastro-esophageal reflux disease without esophagitis; I12.9 Hypertensive chronic kidney disease with stage 1 through stage 4 chronic kidney disease, or unspecified chronic kidney disease; N18.32 Chronic kidney disease, stage 3b; F03.90 Unspecified dementia, unspecified severity, without behavioral disturbance, psychotic disturbance, mood disturbance, and anxiety; Z96.0 Presence of urogenital implants; E87.6 Hypokalemia
CPT/HCPCS: 36415; 36430; 36600; 71045; 71275; 74018; 76775; 78580; 80048; 80053; 80202; 81001; 82248; 82274; 82375; 82550; 82565; 82607; 82728; 82746; 82805; 82948; 83050; 83540; 83550; 83605; 83615; 83735; 83880; 84100; 84145; 84443; 84484; 85014; 85018; 85025; 85027; 85055; 85380; 85610; 85730; 86140; 86738; 86850; 86900; 86901; 86923; 87040; 87077; 87086; 87088; 87186; 87449; 87636; 87641; 92610; 93005; 93970; 94640; 96361; 96365; 96367; 96375; 99199; 99285; A9270; A9540; C1758; C1769; C9113; G0378; J0248; J0456; J0612; J0613; J0692; J0696; J1100; J1335; J1644; J1650; J1756; J1815; J1956; J2250; J2371; J2405; J2704; J3010; J3370; J7030; J7050; J7070; J7120; P9016; Q9967

== ENCOUNTER 2023-09-27 12:05 | Emergency (ER) | payer MEDICARE, MEDICAID, SELFPAY ==
[2023-09-27] VITALS (16 sets, daily range): BP systolic 91–134; BP diastolic 70–93; PULSE 72–96; RESP 18–19; TEMP 36.4; O2SAT 97–100
--- NOTE | ~2023-09-27 | CT_ITS ---
EXAMINATION: CT abdomen pelvis w con DATE: 09/27/2023 14:43 INDICATION: Abdominal distention. TECHNIQUE: Computed tomography (CT) of the abdomen and pelvis was performed with 100 mL Omnipaque 350 intravenous contrast. Automated exposure control and iterative reconstruction technique were employe d. The dose-length product was 1120.26 mGy-cm. COMPARISON: CT abdomen and pelvis 12/24/2022 FINDINGS: The visualized portions of the lung bases demonstrate mild atelectasis. There is a trace ri ght pleural effusion. The heart size is normal. No pericardial effusion. There is a 7 mm cyst in the liver. The gallbladder, spleen, pancreas, and adrenal glands are normal. There are changes of right n ephrectomy. There is mild atrophy of left kidney. There is an 8 mm cyst in left kidney. There are num erous stones in left kidney measuring up to 12 mm. There is moderate left hydronephrosis and hydroure ter. There is gas in the left-sided renal collecting system. There is urothelial thickening and enhan cement involving the left renal pelvis with surrounding fat stranding, consistent with pyelitis. The bladder is decompressed by a Naranjo catheter. Stool distends the rectosigmoid. There is a large volume of stool in the colon. The appendix is not visualized. There is calcified atherosclerosis of the aor ta and many of the other arteries. There is mild left para-aortic lymphadenopathy. There is instrumen tation of proximal right femur. 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 There is ankylosis of the left hip joint. There is chronic height loss of multiple vertebral bodies . There is moderate thoracic spondylosis and mild lumbar spondylosis. There is a sacral decubitus ulc er. There is a left ischial decubitus ulcer. No specific evidence of osteomyelitis. IMPRESSION: 1. Moderate left hydronephrosis and hydroureter. Left-sided pyelitis. Intraluminal gas may be from in fection or reflux from the bladder. 2. Nonobstructing left kidney stones. 3. Large volume of stool in the colon with distention of the rectosigmoid. Reviewed, dictated and finalized at location A. CTOR OF TRAINING IMPRESSION: 1. Moderate left hydronephrosis and hydroureter. Left-sided pyelitis. Intralumi nal gas may be from infection or reflux from the bladder. 2. Nonobstructing left kidney stones. 3. Large volume of stool in the colon with distention of the rectosigmoid.
--- NOTE | ~2023-09-27 | XR_ITS ---
XR chest 1V 09/27/2023 14:47 Indication: Sepsis. Procedure: AP view of the chest Comparison: Comparison to multiple prior studies sequentially, with oldest reviewed study dated 10/20. Findings: Left basilar atelectasis. Elevated right diaphragm. No focal pneumonia, edema, pleural effu mara or pneumothorax. No acute osseous abnormality. Impression: 1: Left basilar atelectasis. Reviewed, dictated and finalized at location L. SERVICER HELPER Impression: 1: Left basilar atelectasis.
--- NOTE | 2023-09-27 13:09 | ED.GENADULT ---
HPI - General Adult General Chief complaint: Unspecified Stated complaint: abd distention Time Seen by Provider: 09/27/23 13:00 History of Present Illness HPI narrative: Patient is a 58 year old female with history of functional quadriplegia, MS, chronic indwelling fernandez catheter here with abdominal distention. History assisted by nursing and EMS. She reportedly pulled out her own catheter 2 days ago. They replaced it today. They noted that she has some increasing abdominal distention. Last BM reportedly 3 weeks ago. Patient does not provide much of a history. Patient has no complaints, denies any pain. She is requesting food and notes that she is hungry. Related Data Home Medications Medication Instructions Recorded Confirmed acetaminophen 650 mg PO Q4H PRN Pain (Scale 12/17/22 07/27/23 Score 1-3) cholecalciferol (vitamin D3) 1,000 units PO DAILY 12/17/22 07/27/23 citalopram 20 mg tablet 20 mg PO HS 12/17/22 07/27/23 famotidine 20 mg tablet 20 mg PO BID 12/17/22 07/27/23 hydrocortisone 5 mg tablet 5 mg PO DAILY 12/17/22 07/27/23 ipratropium bromide 0.02 % 1 ml inhalation DAILY PRN 12/17/22 07/27/23 solution for inhalation Shortness Of Breath lactulose 10 gram/15 mL oral 30 ml PO BID 12/17/22 07/27/23 solution metoprolol tartrate 50 mg tablet 50 mg PO BID 12/17/22 07/27/23 ondansetron 4 mg disintegrating 4 mg translingual QID PRN Nausea 12/17/22 07/27/23 tablet And Vomiting polyethylene glycol 3350 17 g PO DAILY Constipation 12/17/22 07/27/23 potassium chloride 20 mEq oral 20 meq PO DAILY 12/17/22 07/27/23 packet trazodone 50 mg tablet 50 mg PO HS 12/17/22 07/27/23 hydrocodone 5 mg-acetaminophen 325 1 tablet PO Q6H PRN Pain 07/27/23 07/27/23 mg tablet megestrol 400 mg/10 mL (40 mg/mL) 400 mg PO BID 07/27/23 07/27/23 oral suspension multivit with minerals-iron 18 1 tablet PO DAILY 07/27/23 07/27/23 mg-folic ac 400 mcg-vit K 25 mcg tablet (Adults Multivitamin) sennosides 8.6 mg tablet (senna) 8.6 mg PO DAILY PRN Constipation 07/27/23 07/27/23 Allergies Allergy/AdvReac Type Severity Reaction Status Date / Time No Known Allergies Allergy Verified 07/27/23 09:46 Review of Systems Review of Systems: ROS unobtainable: Yes unobtainable due to medical condition PMFSH Past Medical History Medical History Acute on chronic anemia Anemia Chronic obstructive pulmonary disease Chronic respiratory failure with hypoxia, on home oxygen therapy Previously documented that the patient is oxygen dependent on 4 L nasal cannula however she denies and is on room air with good SpO2 as of 07/27/2023. Dementia Depression Essential (primary) hypertension Functional quadriplegia secondary to MS Generalized anxiety disorder Hyperlipidemia MRSA infection Multiple sclerosis Pulmonary embolism (2014) Retained ureteral stent Schizophrenia Ureteral stent present Urinary tract infection due to extended-spectrum beta lactamase (ESBL) producing Escherichia coli Xanthogranulomatous pyelonephritis Surgical History Surgical History History of removal of ureteral stent 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 History of tubal ligation Family History Family History Mother Family history of multiple sclerosis Hypertension Father Patient's father is Social History Social History Social History: Patient is a ramos of the [facility]. Her guardian is Abe Burhnam ([phone]). Code status: Full code. Smoking packs per day: 0.5 Smoking cigarettes per day: 10.0 Years smoked: 1 Smoking pack-years: 0.50 Smoking status: Never smoker Tobacco type: cigarettes Second hand tobacco smoke exposure: No Alcohol intake:
--- NOTE | 2023-09-27 13:14 | ECG_ITS ---
Measurements Intervals [place] Rate: 91 P: -17 TN: 151 QRS: -7 QRSD: 84 T: 3 QT: 364 QTc: 449 Interpretive Statements SINUS RHYTHM MINIMAL VOLTAGE CRITERIA FOR LVH, CONSIDER NORMAL VARIANT [MEETS CRITERIA IN ONE OF: R(aVL), S(V1), R(V5), R(V5/V6)+S(V1)] BASELINE ARTIFACT LIMITS INTERPRETATION COMPARED TO ECG 08/22/2023 21:57:34 BASELINE ARTIFACT LIMITS INTERPRETATION Electronically Signed On 09-27-2023 15:09:47 PIE DOUGH ROLLER by Isrrael Rao M.D.
[2023-09-27 13:42] LABS: Basophils Percent Auto 0.3 % (0.2-1.2); Eosinophils Absolute Auto 0.2 K/mm3 (0-0.3); Eosinophils Percent Auto 1.1 % (0-4.4); Hematocrit 35.5 % (37.0-47.0); Hemoglobin 10.8 g/dL (12.0-15.0); Immature Granulocyte Absolute 0.13 K/mm3 (0.00-0.031); Immature Granulocyte Percent A 0.9 % (0-0.5); Lymphocytes Absolute Auto 2.28 K/mm3 (0.9-3.2); Lymphocytes Percent Auto 15.4 % (18.3-44.2); Mean Corpuscular HGB Conc 30.4 g/dl (32-36); Mean Corpuscular Hemoglobin 27.3 pg (26-34); Mean Corpuscular Volume 89.6 fl (80-100); Mean Platelet Volume 10.7 fl (7.4-10.4); Monocytes Absolute Auto 0.9 K/mm3 (0.1-0.6); Monocytes Percent Auto 5.7 % (2.6-8.5); Neutrophils Absolute Auto 11.4 K/mm3 (1.3-6.7); Neutrophils Percent Auto 76.6 % (45.5-73.1); Platelet Count Result 311 k/mm3 (150-375); Red Blood Count 3.96 M/mm3 (4.2-5.4); Red Cell Distribution Width 18.2 % (11.5-14.5); White Blood Count 14.8 K/mm3 (4.5-10.0)
[2023-09-27] MEDS: SODIUM CHLORIDE 0.9% IV 1,000 ML 999 ML IV CONT (13:50)
[2023-09-27 13:51] LABS: Lactic Acid Reflex 1.1 mmol/L (0.7-2.0)
[2023-09-27 13:55] LABS: Alanine Aminotransferase 14 U/L (6-35); Albumin Level 3.7 g/dL (3.5-5.1); Alkaline Phosphatase 104 U/L (38-126); Anion Gap 10 mmol/L (8-16); Aspartate Amino Transferase 16 U/L (14-36); Bilirubin,Total 0.3 mg/dL (0.2-1.3); Blood Urea Nitrogen 55 mg/dL (7-17); CRP 0.6 mg/dL (<1.0); Calcium 8.9 mg/dL (8.4-10.2); Carbon Dioxide 18 mmol/L (22-30); Chloride 117 mmol/L (98-107); Estimated Glomerular Filt Rate 46; Glucose 108 mg/dL (65-110); Lipase 187 U/L (23-300); Sodium 145 mmol/L (137-145)
[2023-09-27 14:01] LABS: INR 1.3; Prothrombin Time 17.1 Seconds (11.1-14.7)
[2023-09-27 14:02] LABS: Partial Thromboplastin Time 32.2 SECONDS (22.3-36.8)
[2023-09-27 14:04] LABS: Troponin I < 0.012 ng/mL (0.000-0.034)
[2023-09-27 14:05] LABS: Appearance Urine Turbid (Clear); Bacteria Urine 4+ /hpf; Bilirubin Urine Negative (Negative); Blood Urine 2+ (Negative); Color Urine Yellow (Yellow); Glucose Urine UA Negative (Negative); Ketones Urine Negative (Negative); Leukocyte Esterase Ur 3+ LEU/UL (Negative); Nitrate Urine Negative (Negative); Protein Urine 2+ mg/dL (Negative); RBC Urine 21-50 /hpf (0-2); Specific Grav Ur 1.018 (1.001-1.035); Squamous Epithelial Cell Urine Occasional /hpf (Few); Urobilinogen Urine 0.2 mg/dL (<2.0); WBC Clumps Urine Present /HPF; WBC Urine >100 /hpf
[2023-09-27 14:14] LABS: Add Urine Microscopic? YES
--- NOTE | 2023-09-27 17:09 | PC.NURSE ---
Spoke with Melany from [place] and gave update on pts condition
[2023-09-27] MEDS: SODIUM CHLORIDE 0.9% IV 1,000 ML 150 ML IV CONT (17:13)
[2023-09-27] MEDS: LINEZOLID 600 MG/300 ML 600 MG/300 ML SOLN 300 MG IVPB (21:11)
== END 2023-09-27 20:38 | disposition short-term general hospital (02) ==
PROVIDERS: Emergency Provider Student in an Organized Health Care Education/Training Program; PCP Internal Medicine
DX: N10 Acute pyelonephritis (principal); N20.0 Calculus of kidney; R53.2 Functional quadriplegia; G35 Multiple sclerosis; J44.9 Chronic obstructive pulmonary disease, unspecified; J96.11 Chronic respiratory failure with hypoxia; Z99.81 Dependence on supplemental oxygen; F03.90 Unspecified dementia, unspecified severity, without behavioral disturbance, psychotic disturbance, mood disturbance, and anxiety; I10 Essential (primary) hypertension; E78.5 Hyperlipidemia, unspecified; D64.9 Anemia, unspecified; F32.A Depression, unspecified; F20.9 Schizophrenia, unspecified; Z86.711 Personal history of pulmonary embolism; Z86.14 Personal history of Methicillin resistant Staphylococcus aureus infection; Z87.440 Personal history of urinary (tract) infections; Z86.16 Personal history of COVID-19; Q60.0 Renal agenesis, unilateral
CPT/HCPCS: 36415; 71045; 74177; 80053; 81001; 83605; 83690; 84484; 85025; 85610; 85730; 86140; 87040; 87077; 87086; 87186; 93005; 96361; 96365; 96375; 99285; J1580; J2020; J7030; Q9967

== ENCOUNTER 2023-10-17 10:26 | Inpatient (IN) | payer MEDICARE, MEDICAID, SELFPAY ==
[2023-10-17] VITALS (12 sets, daily range): BP systolic 102–142; BP diastolic 71–97; PULSE 97–132; RESP 16–30; TEMP 36.4–37.3; O2SAT 95–100
--- NOTE | ~2023-10-17 | XR_ITS ---
EXAMINATION: XR chest 1V portable DATE: 10/17/2023 11:02 INDICATION: Shortness of breath and crackles TECHNIQUE: frontal view of the chest was obtained. COMPARISON: Chest radiograph date FINDINGS: Lung volumes remain small particularly on the right there is chronic. Unchanged retrodiaphragmatic op acities at the right lung base and linear bands of discoid atelectasis/scarring at the left lower prabhu g zone. Elevation the right hemidiaphragm. The heart size is normal. IMPRESSION: 1. No interval change with persistent small lung volumes and unchanged opacities in bilateral lower l jeff zones and favor chronic atelectasis/scarring over pneumonia. Reviewed, dictated and finalized at location A. SORTER IMPRESSION: 1. No interval change with persistent small lung volumes and unchanged opacitie s in bilateral lower lung zones and favor chronic atelectasis/scarring over pne umonia.
--- NOTE | ~2023-10-17 | XR_ITS ---
XR chest 1V portable DATE: 10/21/2023 09:27 INDICATION: Cough TECHNIQUE: Portable upright AP views on 10/21/2023 at 0 916 and 0918 hours COMPARISON: 10/17/2023 CT pulmonary scan 10/17/2023 portable AP chest FINDINGS: There is mild elevation right leaf of the diaphragm. There is bibasilar infiltrate and/or a telectasis, right greater than left. The lungs otherwise appear clear. Cardiomegaly. There is slight blunting of the right costophrenic angle; small pleural effusion is not excluded. No evidence of a pleural effusion. No pneumothorax. Pulmonary vascularity appears within n ormal limits. Prominent diffuse osteopenia. Thoracolumbar levoscoliosis. Loss of height of several lower thoracic v ertebral bodies IMPRESSION: Bibasilar infiltrate and/atelectasis, right greater than left Cardiomegaly Prominent osteopenia Reviewed, dictated and finalized at location A. ICE MAKER
--- NOTE | ~2023-10-17 | CT_ITS ---
Clinical Indication: Shortness of breath CT Scan of the Chest with Contrast: Technique: Contiguous sections were acquired throughout the chest after intravenous administration of 100 cc of Omnipaque 350. Dose reduction technique was used on this scan by utilizing automated expos ure control and iterative reconstruction technique. The dose-length product (DLP) was 572.43 mGy-cm. COMPARISON: 08/01/2023 Findings: There is no evidence of any significant mediastinal, hilar or axillary lymphadenopathy. There is no f illing defect in the pulmonary arterial tree to suggest pulmonary embolus. There is no evidence of ao rtic dissection or aneurysm. There is no evidence of pleural or pericardial effusion. There is consolidation in the superior segment right lower lobe. There is minimal bibasilar atelectas is otherwise. Images through the upper abdomen reveal no abnormalities. Stable kyphosis with mid to lower thoracic spinal compression fractures. Impression: No evidence of pulmonary embolus, aortic dissection, or aortic aneurysm. Atelectasis versus pneumonia in the superior segment right lower lobe. Stable kyphosis with mid to lower thoracic spinal compression fractures. Reviewed, dictated and finalized at [facility]. SMAN Impression: No evidence of pulmonary embolus, aortic dissection, or aortic aneurysm. Atelectasis versus pneumonia in the superior segment right lower lobe. Stable kyphosis with mid to lower thoracic spinal compression fractures.
--- NOTE | 2023-10-17 10:30 | ECG_ITS ---
Measurements Intervals [place] Rate: 126 P: 41 RI: 161 QRS: -8 QRSD: 84 T: 15 QT: 335 QTc: 486 Interpretive Statements SINUS TACHYCARDIA VOLTAGE CRITERIA FOR LVH LOW QRS VOLTAGE IN PRECORDIAL LEADS CONSIDER INFERIOR INFARCT, AGE INDETERMINATE BASELINE ARTIFACT- I, II, III, AVR, AVL, AVF, V3 ABNORMAL ECG NO PREVIOUS ECG AVAILABLE FOR COMPARISON Electronically Signed On 10-17-2023 10:46:07 ACCOUNT EXECUTIVE by Murali Osei D.O.
--- NOTE | 2023-10-17 10:43 | ED.SOB ---
HPI - SOB/Dyspnea General Chief Complaint: Shortness of Breath/Dyspnea <Hay Anderson APRN - Last Filed: 10/17/23 15:50> Stated Complaint: SOB <Hay Anderson APRN - Last Filed: 10/17/23 15:50> Time Seen by Provider: 10/17/23 10:40 <Hay Anderson APRN - Last Filed: 10/17/23 15:50> Source: patient <Hay Anderson APRN - Last Filed: 10/17/23 15:50> Mode of arrival: ambulatory <Hay Anderson APRN - Last Filed: 10/17/23 15:50> Limitations: no limitations <Hay Anderson APRN - Last Filed: 10/17/23 15:50> History of Present Illness HPI Narrative: Latesha is a 58-year-old female patient presenting to the ER today via EMS. She lives at [facility]. Comes in today with complaints of shortness of breath and dyspnea. EMS gave patient albuterol and nebulizer and Solu-Medrol IM. History of COPD <Hay Anderson APRN - Last Filed: 10/17/23 15:50> Related Data Home Medications: Home Medications Medication Instructions Recorded Confirmed acetaminophen 650 mg PO Q4H PRN Pain (Scale 12/17/22 07/27/23 Score 1-3) cholecalciferol (vitamin D3) 1,000 units PO DAILY 12/17/22 07/27/23 citalopram 20 mg tablet 20 mg PO HS 12/17/22 07/27/23 famotidine 20 mg tablet 20 mg PO BID 12/17/22 07/27/23 hydrocortisone 5 mg tablet 5 mg PO DAILY 12/17/22 07/27/23 ipratropium bromide 0.02 % 1 ml inhalation DAILY PRN 12/17/22 07/27/23 solution for inhalation Shortness Of Breath lactulose 10 gram/15 mL oral 30 ml PO BID 12/17/22 07/27/23 solution metoprolol tartrate 50 mg tablet 50 mg PO BID 12/17/22 07/27/23 ondansetron 4 mg disintegrating 4 mg translingual QID PRN Nausea 12/17/22 07/27/23 tablet And Vomiting polyethylene glycol 3350 17 g PO DAILY Constipation 12/17/22 07/27/23 potassium chloride 20 mEq oral 20 meq PO DAILY 12/17/22 07/27/23 packet trazodone 50 mg tablet 50 mg PO HS 12/17/22 07/27/23 hydrocodone 5 mg-acetaminophen 325 1 tablet PO Q6H PRN Pain 07/27/23 07/27/23 mg tablet megestrol 400 mg/10 mL (40 mg/mL) 400 mg PO BID 07/27/23 07/27/23 oral suspension multivit with minerals-iron 18 1 tablet PO DAILY 07/27/23 07/27/23 mg-folic ac 400 mcg-vit K 25 mcg tablet (Adults Multivitamin) sennosides 8.6 mg tablet (senna) 8.6 mg PO DAILY PRN Constipation 07/27/23 07/27/23 acetaminophen 325 mg tablet 650 mg PO Q4-5H PRN Pain 10/17/23 10/17/23 amino acids-protein hydrolysate 17 See Rx Instructions .Route .COMPLEX 10/17/23 10/17/23 gram-100 kcal/30 mL oral liquid (Pro-Stat AWC) apixaban 5 mg tablet (Eliquis) 5 mg PO BID 10/17/23 10/17/23 cholecalciferol (vitamin D3) 25 25 mcg PO DAILY 10/17/23 10/17/23 mcg (1,000 unit) tablet (Vitamin D3) citalopram 20 mg tablet 20 mg PO HS 10/17/23 10/17/23 famotidine 20 mg tablet (Pepcid) 20 mg PO BID 10/17/23 10/17/23 hydrocodone 5 mg-acetaminophen 325 1 tablet PO Q6H PRN Pain 10/17/23 10/17/23 mg tablet hydrocortisone 5 mg tablet 5 mg PO DAILY 10/17/23 10/17/23 ipratropium bromide 0.02 % 2.5 ml inhalation Q6H PRN sob 10/17/23 10/17/23 solution for inhalation lactulose 10 gram/15 mL oral 30 g PO BID 10/17/23 10/17/23 solution megestrol 400 mg/10 mL (10 mL) 400 mg PO BID 10/17/23 10/17/23 oral suspension metoprolol tartrate 50 mg tablet 50 mg PO BID 10/17/23 10/17/23 ondansetron 4 mg disintegrating 4 mg PO Q6H PRN Nausea 10/17/23 10/17/23 tablet pantoprazole 40 mg tablet,delayed 40 mg PO QAM 10/17/23 10/17/23 release polyethylene glycol 3350 17 gram 17 g PO DAILY 10/17/23 10/17/23 oral powder packet (Miralax) pregabalin 75 mg capsule (Lyrica) 75 mg PO BID 10/17/23 10/17/23 sennosides 8.6 mg tablet (senna) 8.6 mg PO DAILY PRN Constipation 10/17/23 10/17/23 trazodone 50 mg tablet 50 mg PO HS 10/17/23 10/17/23 <Hay Anderson, SURVEY WORKER - Last Filed: 10/17/23 15:50> Allergies/Adverse Reactions: Allergies Allergy/AdvReac Type Severity Reaction Status Date / Time No Kno
[2023-10-17 10:44] LABS: Basophils Percent Auto 0.2 % (0.2-1.2); Eosinophils Absolute Auto 0.1 K/mm3 (0-0.3); Eosinophils Percent Auto 0.6 % (0-4.4); Hematocrit 38.7 % (37.0-47.0); Hemoglobin 11.5 g/dL (12.0-15.0); Immature Granulocyte Absolute 0.06 K/mm3 (0.00-0.031); Immature Granulocyte Percent A 0.7 % (0-0.5); Lymphocytes Absolute Auto 0.82 K/mm3 (0.9-3.2); Lymphocytes Percent Auto 9.7 % (18.3-44.2); Mean Corpuscular HGB Conc 29.7 g/dl (32-36); Mean Corpuscular Hemoglobin 27.2 pg (26-34); Mean Corpuscular Volume 91.5 fl (80-100); Mean Platelet Volume 11.1 fl (7.4-10.4); Monocytes Absolute Auto 0.5 K/mm3 (0.1-0.6); Monocytes Percent Auto 6.4 % (2.6-8.5); Neutrophils Percent Auto 82.4 % (45.5-73.1); Platelet Count Result 287 k/mm3 (150-375); Red Blood Count 4.23 M/mm3 (4.2-5.4); Red Cell Distribution Width 15.3 % (11.5-14.5); White Blood Count 8.4 K/mm3 (4.5-10.0)
[2023-10-17 10:49] LABS: Glucose Point of Care 96 mg/dl (65-105)
[2023-10-17 10:54] LABS: Alanine Aminotransferase 17 U/L (6-35); Alkaline Phosphatase 109 U/L (38-126); Anion Gap 14 mmol/L (8-16); Aspartate Amino Transferase 18 U/L (14-36); Bilirubin,Total 0.3 mg/dL (0.2-1.3); Blood Urea Nitrogen 59 mg/dL (7-17); Calcium 9.2 mg/dL (8.4-10.2); Carbon Dioxide 15 mmol/L (22-30); Chloride 119 mmol/L (98-107); Estimated CRCL calculation 35 ml/min; Estimated Glomerular Filt Rate 36; Glucose 102 mg/dL (65-110); Potassium 4.1 mmol/L (3.4-5.0); Sodium 148 mmol/L (137-145)
[2023-10-17 10:55] LABS: Lactic Acid Reflex 1.3 mmol/L (0.7-2.0)
[2023-10-17 11:06] LABS: NT Pro B Type Natriuretic Pept 245 pg/mL (19.9-100); Troponin I < 0.012 ng/mL (0.000-0.034)
[2023-10-17 11:18] LABS: Hypochromasia 1+ (NORMAL); Platelet Estimate Adequate (Adequate); Schistocytes Rare (NORMAL)
[2023-10-17 11:26] LABS: INR 1.8; Prothrombin Time 21.6 Seconds (11.1-14.7)
[2023-10-17 11:27] LABS: Partial Thromboplastin Time 43.9 SECONDS (22.3-36.8)
[2023-10-17 11:38] LABS: D Dimer 0.76 ug/mL (<0.48)
[2023-10-17 11:41] LABS: Influenza A QL RT-PCR Positive (Negative); Influenza B QL RT-PCR Negative (Negative); RSV RNA, RT-PCR Negative (Negative); SARS-CoV-2 RNA PCR Negative (Negative)
[2023-10-17] MEDS: SODIUM CHLORIDE 0.9% IV 1,000 ML 150 ML IV CONT (13:21)
--- NOTE | 2023-10-17 14:37 | PC.NURSE ---
Called dietary and ordered lunch tray for pt at this time.
[2023-10-17] MEDS: LACTATED RINGERS 1,000 ML 125 ML IV CONT (14:40)
[2023-10-17 15:43] LABS: MRSA (PCR) DETECTED (NOT DETECTE)
--- NOTE | 2023-10-17 15:53 | ADMGEN ---
This patient, Yesenia Perez, was admitted to Medical Room 246-01. Patient/family oriented to hospital policies and general routines including ID bracelet, bed and alarms, visiting hours, pain management, procedures, bathroom and other care routines, personal items, smoking policy, room service/diet, and visiting hours. Information on how to activate the Rapid Response Team has been discussed. Patient/Family are encouraged to report perceived risks to care and to ask questions if they do not understand what they are told or what they should do.
[2023-10-17] MEDS: AZITHROMYCIN 500 MG/NS 250 ML 500 MG/250 ML BAG 250 MG IVPB (16:07)
--- NOTE | 2023-10-17 17:12 | PM.IMHP ---
H&P: HPI History of Present Illness Date/Time: 10/17/23 17:12 Chief Complaint: SOB Narrative: 58 y/o F presents here with hypoxia and SOB with PMH of MS, COPD/asthma, schizoaffective disorder, anemia, HTN, kidney cancer s/p nephrectomy (R), and colitis. Limited history provided by patient, HPI primarily obtained through chart review, EMS report, and ED provider report. Patient was sent to the ED via EMS from [facility] with reported SOB. Patient was given Solu-Medrol and a neb en route to the ED. Arrived with O2 sat at 95% on RA. At arrival patient reported hunger and SOB. Patient later reported 1-2 months of intermittent fevers and dysuria w/o changes in urine output. No longer experiencing SOB after she was placed on 2L NC. Denies any changes in appetite, p.o. intake. Denies fever, chills. Denies history of chronic kidney disease. ED workup showed a normal WBC, hemoglobin of 11.5, hypernatremia with a sodium of 148, creatinine of 1.5, and Flu A+. CXR showed no interval change with persistent small lung volumes and unchanged opacities in the bilateral lower lung zones. CTA showed no evidence of PE or dissection. Atelectasis versus pneumonia in the right lower lobe. Review of Systems Review of Systems: All systems reviewed & are unremarkable except as noted in HPI and below PMFSH Past Medical History Medical History Anorexia Asthma Calculus of kidney Colitis COPD (chronic obstructive pulmonary disease) Extended spectrum beta lactamase (ESBL) resistance Fecal impaction GI bleed HTN (hypertension) LEOLA (iron deficiency anemia) Intestinal obstruction Malignant neoplasm of right kidney Multiple sclerosis Overactive bladder Schizoaffective disorder Urinary retention Surgical History Surgical History History of nephrostomy Social History Social History Smoking status: Unknown if ever smoked Alcohol intake: unknown Substance use: unknown Do You Feel Safe in your Home?: Yes Lack of Transportation: No Lack of Food: Never True Current Housing: I Have Housing Concerned About Future Housing: Decline to Answer Difficulty Paying Gas/Electric Bills: Decline to Answer Difficulty Paying for Meds: Decline to Answer Currently Unemployed: Decline to Answer Education: Decline to Answer Difficulty w/ Childcare or Family Care: Decline to Answer Spiritual care concerns: No Meds Home Medications and Allergies Home Medications Medication Instructions Recorded Confirmed Type acetaminophen 325 mg tablet 650 mg PO Q4-5H PRN Pain 10/17/23 10/17/23 History amino acids-protein hydrolysate 17 See Rx Instructions .Route .COMPLEX 10/17/23 10/17/23 History gram-100 kcal/30 mL oral liquid (Pro-Stat AWC) apixaban 5 mg tablet (Eliquis) 5 mg PO BID 10/17/23 10/17/23 History cholecalciferol (vitamin D3) 25 25 mcg PO DAILY 10/17/23 10/17/23 History mcg (1,000 unit) tablet (Vitamin D3) citalopram 20 mg tablet 20 mg PO HS 10/17/23 10/17/23 History famotidine 20 mg tablet (Pepcid) 20 mg PO BID 10/17/23 10/17/23 History hydrocodone 5 mg-acetaminophen 325 1 tablet PO Q6H PRN Pain 10/17/23 10/17/23 History mg tablet hydrocortisone 5 mg tablet 5 mg PO DAILY 10/17/23 10/17/23 History ipratropium bromide 0.02 % 2.5 ml inhalation Q6H PRN sob 10/17/23 10/17/23 History solution for inhalation lactulose 10 gram/15 mL oral 30 g PO BID 10/17/23 10/17/23 History solution megestrol 400 mg/10 mL (10 mL) 400 mg PO BID 10/17/23 10/17/23 History oral suspension metoprolol tartrate 50 mg tablet 50 mg PO BID 10/17/23 10/17/23 History ondansetron 4 mg disintegrating 4 mg PO Q6H PRN Nausea 10/17/23 10/17/23 History tablet pantoprazole 40 mg tablet,delayed 40 mg PO QAM 10/17/23 10/17/23 History release polyethylene glycol
[2023-10-17] MEDS: LACTATED RINGERS 1,000 ML 999 ML IV CONT ×2 (17:41→18:47)
[2023-10-17] MEDS: VANCOMYCIN 1,000 MG/NS 250 ML 1,000 MG/250 ML BAG 250 MG IVPB (18:48)
[2023-10-17 21:17] LABS: Appearance Urine Cloudy (Clear); Bacteria Urine 1+ /hpf; Bilirubin Urine Negative (Negative); Blood Urine 2+ (Negative); Color Urine Yellow (Yellow); Glucose Urine UA Trace mg/dL (Negative); Ketones Urine Negative (Negative); Leukocyte Esterase Ur 1+ LEU/UL (Negative); Nitrate Urine Negative (Negative); Non Pathogenic Casts 0-2; Protein Urine 2+ mg/dL (Negative); RBC Urine 0-2 /hpf (0-2); Specific Grav Ur 1.034 (1.001-1.035); Squamous Epithelial Cell Urine None seen /hpf (Few); Urobilinogen Urine 0.2 mg/dL (<2.0); pH Urine 5.5 (5.0-9.0)
[2023-10-17 21:19] LABS: Add Urine Microscopic? YES
[2023-10-18] VITALS (14 sets, daily range): BP systolic 125–155; BP diastolic 76–86; PULSE 85–102; RESP 16–20; TEMP 36.2–36.7; O2SAT 96–100; BMI 25.0
[2023-10-18 05:51] LABS: Basophils Percent Auto 0.1 % (0.2-1.2); Hematocrit 32.4 % (37.0-47.0); Hemoglobin 9.8 g/dL (12.0-15.0); Immature Granulocyte Absolute 0.08 K/mm3 (0.00-0.031); Immature Granulocyte Percent A 0.8 % (0-0.5); Lymphocytes Absolute Auto 0.67 K/mm3 (0.9-3.2); Lymphocytes Percent Auto 6.8 % (18.3-44.2); Mean Corpuscular HGB Conc 30.2 g/dl (32-36); Mean Corpuscular Hemoglobin 27.3 pg (26-34); Mean Corpuscular Volume 90.3 fl (80-100); Mean Platelet Volume 10.6 fl (7.4-10.4); Monocytes Absolute Auto 0.4 K/mm3 (0.1-0.6); Monocytes Percent Auto 3.9 % (2.6-8.5); Neutrophils Absolute Auto 8.8 K/mm3 (1.3-6.7); Neutrophils Percent Auto 88.4 % (45.5-73.1); Platelet Count Result 254 k/mm3 (150-375); Red Blood Count 3.59 M/mm3 (4.2-5.4); Red Cell Distribution Width 14.8 % (11.5-14.5); White Blood Count 9.9 K/mm3 (4.5-10.0)
[2023-10-18 06:14] LABS: Alanine Aminotransferase 15 U/L (6-35); Albumin Level 3.3 g/dL (3.5-5.1); Alkaline Phosphatase 98 U/L (38-126); Anion Gap 10 mmol/L (8-16); Aspartate Amino Transferase 19 U/L (14-36); Bilirubin,Total 0.2 mg/dL (0.2-1.3); Blood Urea Nitrogen 45 mg/dL (7-17); Calcium 8.9 mg/dL (8.4-10.2); Carbon Dioxide 17 mmol/L (22-30); Chloride 117 mmol/L (98-107); Estimated CRCL calculation 38 ml/min; Estimated Glomerular Filt Rate 46; Glucose 101 mg/dL (65-110); Magnesium 1.9 mg/dL (1.6-2.3); Sodium 144 mmol/L (137-145)
[2023-10-18 06:17] LABS: Lactic Acid Reflex 1.1 mmol/L (0.7-2.0)
--- NOTE | 2023-10-18 08:25 | PM.IMPN ---
Progress Note: A&P Assessment and Plan (1) Pressure ulcer: Code(s): L89.90 - Pressure ulcer of unspecified site, unspecified stage Status: Acute (2) UTI (urinary tract infection): Code(s): N39.0 - Urinary tract infection, site not specified Status: Acute (3) RADHA (acute kidney injury): Code(s): N17.9 - Acute kidney failure, unspecified Status: Acute (4) Sepsis: Code(s): A41.9 - Sepsis, unspecified organism Status: Acute (5) Influenza A: Code(s): J10.1 - Influenza due to other identified influenza virus with other respiratory manifestations Status: Acute (6) Pneumonia: Qualifiers: Laterality: right Lung location: lower lobe of lung Pneumonia type: due to unspecified organism Qualified Code(s): J18.9 - Pneumonia, unspecified organism Code(s): J18.9 - Pneumonia, unspecified organism Status: Acute Plan ?Patient was sent to the ED via EMS from [facility] with reported SOB. Patient was given Solu-Medrol and a neb en route to the ED. Arrived with O2 sat at 95% on RA. At arrival patient reported hunger and SOB. Patient later reported 1-2 months of intermittent fevers and dysuria w/o changes in urine output. No longer experiencing SOB after she was placed on 2L NC. Denies any changes in appetite, p.o. intake. workup showed a normal WBC, hemoglobin of 11.5, hypernatremia with a sodium of 148, creatinine of 1.5, and Flu A+. CXR showed no interval change with persistent small lung volumes and unchanged opacities in the bilateral lower lung zones.? CTA showed no evidence of PE or dissection.? Atelectasis versus pneumonia in the right lower lobe. Assessment and plan (1) Sepsis: ?Code(s): A41.9 - Sepsis, unspecified organism ?Status:?Acute ?Assessment and Plan: Meets SIRS criteria: HR >100, and RR >20. WBC WNL and afebrile.? No lactic acidosis, 1.3.? Suspected source:? Pneumonia and UTI.? +Flu A.? MRSA swab+ on 10/17. Sputum culture ordered. Started on IV fluids - LR 125 mL/hr, increased to bolus x 2L to meet 30 mL/kg and maintenance fluids held. blood cultures sent. HR now improved 130's -> 100's. RR improved 30's -> 16. Contacted ID pharmacist, awaiting recs due to +MRSA, hx of EBSL and possibility of multiple sites of infection (skin/lungs/UTI) (2) Pneumonia, and acute respiratory failure with hypoxemia ?Qualifiers: ?Laterality:?right??Lung location:?lower lobe of lung??Pneumonia type:?due to unspecified organism? Qualified Code(s):?J18.9 - Pneumonia, unspecified organism ?Code(s): J18.9 - Pneumonia, unspecified organism ?Status:?Acute ?Assessment and Plan: CXR: no interval change with persistent small lung volumes and unchanged opacities in bilateral lower lung zones and favor chronic atelectasis/scarring over pneumonia. CTA: No evidence of pulmonary embolus, aortic dissection, or aortic aneurysm. Atelectasis versus pneumonia in the superior segment right lower lobe. Stable kyphosis with mid to lower thoracic spinal compression fractures. MRSA+ today, 10/17. Sputum culture ordered. Started on Azithromycin and Ceftriaxone, Vanc added due to +MRSA.? Currently complicated by history of COPD/asthma.? Continuing home ipratropium nebulizer PRN.? Adding albuterol neb PRN. s/w methylprednisolone (3) Influenza A: ?Code(s): J10.1 - Influenza due to other identified influenza virus with other respiratory manifestations ?Status:?Acute ?Assessment and Plan: given history of COPD/asthma, respiratory failure, patient will benefit from Tamiflu Start type fluid 75 mg b.i.d. p.o. continue supportive care. (4) RADHA (acute kidney injury): ?Code(s): N17.9 - Acute kidney failure, unspecified ?Status:?Acute ?Assessment and Plan: Patient has history of right nephrectomy due to malignant neoplasm.? Denied history of chronic kidney disease.? Creatinine currently 1.5, BUN 59, ECC 35
[2023-10-18] MEDS: HYDROCORTISONE 5 MG TABLET PO (09:34)
[2023-10-18] MEDS: CHOLECALCIFEROL 1,000 UNITS TABLET 1000 UNITS PO (09:34)
[2023-10-18] MEDS: PANTOPRAZOLE 40 MG TABLET PO (09:34)
[2023-10-18] MEDS: APIXABAN 5 MG TABLET PO ×2 (09:34→21:09)
[2023-10-18] MEDS: PREGABALIN (*CRX) 75 MG CAPSULE PO ×2 (09:35→18:06)
[2023-10-18] MEDS: METOPROLOL TARTRATE 50 MG TAB PO ×2 (09:35→21:09)
[2023-10-18] MEDS: FAMOTIDINE 20 MG TABLET PO ×2 (09:35→21:09)
[2023-10-18] MEDS: OSELTAMIVIR PHOSPHATE 30 MG CAPSULE PO ×2 (09:36→21:09)
[2023-10-18] MEDS: SODIUM CHLORIDE 0.9% IV 1,000 ML 100 ML IV CONT ×2 (09:36→21:22)
[2023-10-18] MEDS: MEGESTROL ACETATE (*CHEMO) ORAL SUSP 40 MG/ML SYR 400 MG PO ×2 (09:38→21:10)
[2023-10-18] MEDS: methylPREDNISolone SOD SUCC 40 MG VIAL IV PUSH ×3 (12:25→23:19)
[2023-10-18] MEDS: ALBUTEROL SULFATE NEB 2.5 MG/3 ML INH INHALATION (13:04)
[2023-10-18] MEDS: ACETYLCYSTEINE 20% INHAL SOLN 800 MG/4 ML VIAL 200 MG INHALATION ×2 (13:04→21:21)
[2023-10-18] MEDS: AZITHROMYCIN 500 MG/NS 250 ML 500 MG/250 ML BAG 250 MG IVPB (14:19)
[2023-10-18] MEDS: VANCOMYCIN 1,000 MG/NS 250 ML 1,000 MG/250 ML BAG 250 MG IVPB (18:50)
[2023-10-18] MEDS: traZODone HCL 50 MG TABLET PO (21:10)
[2023-10-19] VITALS (11 sets, daily range): BP systolic 138–156; BP diastolic 85–101; PULSE 84–100; RESP 18–20; TEMP 35.9–36.3; O2SAT 94–100
[2023-10-19] MEDS: ACETYLCYSTEINE 20% INHAL SOLN 800 MG/4 ML VIAL 200 MG INHALATION ×3 (02:25→14:13)
[2023-10-19] MEDS: ALBUTEROL SULFATE NEB 2.5 MG/3 ML INH INHALATION ×2 (03:00→14:13)
[2023-10-19] MEDS: methylPREDNISolone SOD SUCC 40 MG VIAL IV PUSH ×4 (05:14→23:35)
[2023-10-19 05:46] LABS: Estimated CRCL calculation 38 ml/min; Estimated Glomerular Filt Rate 46
--- NOTE | 2023-10-19 07:53 | PM.IMPN ---
Progress Note: A&P Assessment and Plan (1) Pressure ulcer: Code(s): L89.90 - Pressure ulcer of unspecified site, unspecified stage Status: Acute (2) UTI (urinary tract infection): Code(s): N39.0 - Urinary tract infection, site not specified Status: Acute (3) RADHA (acute kidney injury): Code(s): N17.9 - Acute kidney failure, unspecified Status: Acute (4) Sepsis: Code(s): A41.9 - Sepsis, unspecified organism Status: Acute (5) Influenza A: Code(s): J10.1 - Influenza due to other identified influenza virus with other respiratory manifestations Status: Acute (6) Pneumonia: Qualifiers: Laterality: right Lung location: lower lobe of lung Pneumonia type: due to unspecified organism Qualified Code(s): J18.9 - Pneumonia, unspecified organism Code(s): J18.9 - Pneumonia, unspecified organism Status: Acute (7) Pulmonary embolism: Code(s): I26.99 - Other pulmonary embolism without acute cor pulmonale Status: Acute Plan ?Patient was sent to the ED via EMS from [facility] with reported SOB. Patient was given Solu-Medrol and a neb en route to the ED. Arrived with O2 sat at 95% on RA. At arrival patient reported hunger and SOB. Patient later reported 1-2 months of intermittent fevers and dysuria w/o changes in urine output. No longer experiencing SOB after she was placed on 2L NC. Denies any changes in appetite, p.o. intake. workup showed a normal WBC, hemoglobin of 11.5, hypernatremia with a sodium of 148, creatinine of 1.5, and Flu A+. CXR showed no interval change with persistent small lung volumes and unchanged opacities in the bilateral lower lung zones.? CTA showed no evidence of PE or dissection.? Atelectasis versus pneumonia in the right lower lobe. Assessment and plan (1) Sepsis: ?Code(s): A41.9 - Sepsis, unspecified organism ?Status:?Acute ?Assessment and Plan: Meets SIRS criteria: HR >100, and RR >20. WBC WNL and afebrile.? No lactic acidosis, 1.3.? Suspected source:? Pneumonia and UTI.? +Flu A.? MRSA swab+ on 10/17. Sputum culture ordered. Started on IV fluids - LR 125 mL/hr, increased to bolus x 2L to meet 30 mL/kg and maintenance fluids held. blood cultures sent. HR now improved 130's -> 100's. RR improved 30's -> 16. Contacted ID pharmacist, awaiting recs due to +MRSA, hx of EBSL and possibility of multiple sites of infection (skin/lungs/UTI) 10/19/23: Blood culture is no growth thus far, urine culture grows E coli, pending susceptibility Follow-up procalcitonin level (2) Pneumonia, and acute respiratory failure with hypoxemia ?Qualifiers: ?Laterality:?right??Lung location:?lower lobe of lung??Pneumonia type:?due to unspecified organism? Qualified Code(s):?J18.9 - Pneumonia, unspecified organism ?Code(s): J18.9 - Pneumonia, unspecified organism ?Status:?Acute ?Assessment and Plan: CXR: no interval change with persistent small lung volumes and unchanged opacities in bilateral lower lung zones and favor chronic atelectasis/scarring over pneumonia. CTA: No evidence of pulmonary embolus, aortic dissection, or aortic aneurysm. Atelectasis versus pneumonia in the superior segment right lower lobe. Stable kyphosis with mid to lower thoracic spinal compression fractures. MRSA+ 10/17. Sputum culture ordered. Not obtained Started on Azithromycin and Ceftriaxone, Vanc added due to +MRSA.? Currently complicated by history of COPD/asthma.? Continuing home ipratropium nebulizer PRN.? Adding albuterol neb PRN. s/w methylprednisolone (3) Influenza A: ?Code(s): J10.1 - Influenza due to other identified influenza virus with other respiratory manifestations ?Status:?Acute ?Assessment and Plan: given history of COPD/asthma, respiratory failure, patient will benefit from Tamiflu Start Tamiflu at renal does 10/18 continue supportive care. (4) RADHA (acute kidney injury): ? ? ?
[2023-10-19 08:11] LABS: Basophils Percent Auto 0.1 % (0.2-1.2); Hematocrit 31.8 % (37.0-47.0); Hemoglobin 9.3 g/dL (12.0-15.0); Immature Granulocyte Absolute 0.05 K/mm3 (0.00-0.031); Immature Granulocyte Percent A 0.6 % (0-0.5); Lymphocytes Percent Auto 5.6 % (18.3-44.2); Mean Corpuscular HGB Conc 29.2 g/dl (32-36); Mean Corpuscular Hemoglobin 27.1 pg (26-34); Mean Corpuscular Volume 92.7 fl (80-100); Mean Platelet Volume 11.4 fl (7.4-10.4); Monocytes Absolute Auto 0.1 K/mm3 (0.1-0.6); Monocytes Percent Auto 1.6 % (2.6-8.5); Neutrophils Absolute Auto 8.3 K/mm3 (1.3-6.7); Neutrophils Percent Auto 92.1 % (45.5-73.1); Platelet Count Result 227 k/mm3 (150-375); Red Blood Count 3.43 M/mm3 (4.2-5.4); Red Cell Distribution Width 14.6 % (11.5-14.5)
[2023-10-19 08:20] LABS: Anion Gap 11 mmol/L (8-16); Blood Urea Nitrogen 38 mg/dL (7-17); Calcium 8.3 mg/dL (8.4-10.2); Carbon Dioxide 13 mmol/L (22-30); Chloride 121 mmol/L (98-107); Estimated CRCL calculation 38 ml/min; Estimated Glomerular Filt Rate 46; Glucose 143 mg/dL (65-110); Potassium 3.5 mmol/L (3.4-5.0); Sodium 145 mmol/L (137-145)
[2023-10-19] MEDS: HYDROCORTISONE 5 MG TABLET PO (08:43)
[2023-10-19] MEDS: APIXABAN 5 MG TABLET PO ×2 (08:43→21:38)
[2023-10-19] MEDS: polyethylene glycoL 3350 17 GM POWD.PACK PO (08:43)
[2023-10-19] MEDS: METOPROLOL TARTRATE 50 MG TAB PO ×2 (08:43→21:38)
[2023-10-19] MEDS: PREGABALIN (*CRX) 75 MG CAPSULE PO ×2 (08:43→17:43)
[2023-10-19] MEDS: OSELTAMIVIR PHOSPHATE 30 MG CAPSULE PO ×2 (08:43→21:38)
[2023-10-19] MEDS: FAMOTIDINE 20 MG TABLET PO ×2 (08:43→21:38)
[2023-10-19] MEDS: PANTOPRAZOLE 40 MG TABLET PO (08:43)
[2023-10-19] MEDS: CHOLECALCIFEROL 1,000 UNITS TABLET 1000 UNITS PO (08:43)
[2023-10-19] MEDS: SODIUM CHLORIDE 0.9% IV 1,000 ML 125 ML IV CONT ×2 (08:45→18:26)
[2023-10-19] MEDS: MEGESTROL ACETATE (*CHEMO) ORAL SUSP 40 MG/ML SYR 400 MG PO ×2 (08:48→21:38)
[2023-10-19 08:53] LABS: Anisocytosis 1+ (NORMAL); Platelet Estimate Adequate (Adequate); Poikilocytosis 1+ (NORMAL)
[2023-10-19 08:54] LABS: Schistocytes Rare (NORMAL)
[2023-10-19] MEDS: LACTULOSE 20 GM/30 ML UDC 30 GM PO ×2 (08:59→17:55)
[2023-10-19] MEDS: AZITHROMYCIN 500 MG/NS 250 ML 500 MG/250 ML BAG 250 MG IVPB (15:13)
[2023-10-19 18:44] LABS: Iron 70 ug/dL (37-170)
[2023-10-19 18:49] LABS: Vancomycin Random 15.4 ug/mL (10-20)
[2023-10-19 18:53] LABS: Percent Iron Saturation 28 % (20-50)
[2023-10-19 19:01] LABS: Procalcitonin 1.3 ng/mL
[2023-10-19] MEDS: traZODone HCL 50 MG TABLET PO (21:38)
[2023-10-19] MEDS: VANCOMYCIN 1,000 MG/NS 250 ML 1,000 MG/250 ML BAG 250 MG IVPB (21:38)
[2023-10-20] VITALS (14 sets, daily range): BP systolic 145–183; BP diastolic 93–125; PULSE 84–109; RESP 16–20; TEMP 36–36.4; O2SAT 93–97
[2023-10-20] MEDS: MEROPENEM 1 GM/NS 100 ML 1 GM/100 ML BAG IVPB ×2 (01:37→15:33)
--- NOTE | 2023-10-20 04:01 | PCRCNOTE ---
Patient refused both 1999 and 199 updraft treatments stating the mucomyst smells bad and makes her nauseous. PRN updraft treatment offered to no avail.
[2023-10-20] MEDS: METOPROLOL TARTRATE INJ 5 MG/5 ML VIAL IV PUSH (05:48)
[2023-10-20] MEDS: SODIUM CHLORIDE 0.9% IV 1,000 ML 125 ML IV CONT (05:53)
[2023-10-20 06:24] LABS: Basophils Percent Auto 0.1 % (0.2-1.2); Hematocrit 32.6 % (37.0-47.0); Hemoglobin 10.2 g/dL (12.0-15.0); Immature Granulocyte Absolute 0.23 K/mm3 (0.00-0.031); Immature Granulocyte Percent A 2.4 % (0-0.5); Lymphocytes Absolute Auto 0.75 K/mm3 (0.9-3.2); Lymphocytes Percent Auto 7.9 % (18.3-44.2); Mean Corpuscular HGB Conc 31.3 g/dl (32-36); Mean Corpuscular Hemoglobin 27.4 pg (26-34); Mean Corpuscular Volume 87.6 fl (80-100); Mean Platelet Volume 10.5 fl (7.4-10.4); Monocytes Absolute Auto 0.2 K/mm3 (0.1-0.6); Monocytes Percent Auto 1.7 % (2.6-8.5); Neutrophils Absolute Auto 8.4 K/mm3 (1.3-6.7); Neutrophils Percent Auto 87.9 % (45.5-73.1); Platelet Count Result 250 k/mm3 (150-375); Red Blood Count 3.72 M/mm3 (4.2-5.4); Red Cell Distribution Width 14.3 % (11.5-14.5); White Blood Count 9.5 K/mm3 (4.5-10.0)
[2023-10-20] MEDS: methylPREDNISolone SOD SUCC 40 MG VIAL IV PUSH ×3 (06:25→17:44)
[2023-10-20 06:55] LABS: Anion Gap 14 mmol/L (8-16); Blood Urea Nitrogen 33 mg/dL (7-17); Calcium 7.8 mg/dL (8.4-10.2); Carbon Dioxide 14 mmol/L (22-30); Chloride 119 mmol/L (98-107); Estimated CRCL calculation 41 ml/min; Estimated Glomerular Filt Rate 51; Glucose 117 mg/dL (65-110); Potassium 2.8 mmol/L (3.4-5.0); Sodium 147 mmol/L (137-145)
[2023-10-20] MEDS: ACETYLCYSTEINE 20% INHAL SOLN 800 MG/4 ML VIAL 200 MG INHALATION ×3 (07:05→21:06)
--- NOTE | 2023-10-20 07:36 | PM.IMPN ---
Progress Note: A&P Assessment and Plan (1) Pressure ulcer: Code(s): L89.90 - Pressure ulcer of unspecified site, unspecified stage Status: Acute (2) UTI (urinary tract infection): Code(s): N39.0 - Urinary tract infection, site not specified Status: Acute (3) ARDHA (acute kidney injury): Code(s): N17.9 - Acute kidney failure, unspecified Status: Acute (4) Sepsis: Code(s): A41.9 - Sepsis, unspecified organism Status: Acute (5) Influenza A: Code(s): J10.1 - Influenza due to other identified influenza virus with other respiratory manifestations Status: Acute (6) Pneumonia: Qualifiers: Laterality: right Lung location: lower lobe of lung Pneumonia type: due to unspecified organism Qualified Code(s): J18.9 - Pneumonia, unspecified organism Code(s): J18.9 - Pneumonia, unspecified organism Status: Acute (7) Pulmonary embolism: Code(s): I26.99 - Other pulmonary embolism without acute cor pulmonale Status: Acute Plan ?Patient was sent to the ED via EMS from [facility] with reported SOB. Patient was given Solu-Medrol and a neb en route to the ED. Arrived with O2 sat at 95% on RA. At arrival patient reported hunger and SOB. Patient later reported 1-2 months of intermittent fevers and dysuria w/o changes in urine output. No longer experiencing SOB after she was placed on 2L NC. Denies any changes in appetite, p.o. intake. workup showed a normal WBC, hemoglobin of 11.5, hypernatremia with a sodium of 148, creatinine of 1.5, and Flu A+. CXR showed no interval change with persistent small lung volumes and unchanged opacities in the bilateral lower lung zones.? CTA showed no evidence of PE or dissection.? Atelectasis versus pneumonia in the right lower lobe. Assessment and plan (1) Sepsis: ?Code(s): A41.9 - Sepsis, unspecified organism ?Status:?Acute ?Assessment and Plan: Meets SIRS criteria: HR >100, and RR >20. WBC WNL and afebrile.? No lactic acidosis, 1.3.? Suspected source:? Pneumonia and UTI.? +Flu A.? MRSA swab+ on 10/17. Sputum culture ordered. Started on IV fluids - LR 125 mL/hr, increased to bolus x 2L to meet 30 mL/kg and maintenance fluids held. blood cultures sent. HR now improved 130's -> 100's. RR improved 30's -> 16. Contacted ID pharmacist, awaiting recs due to +MRSA, hx of EBSL and possibility of multiple sites of infection (skin/lungs/UTI) 10/19/23: Blood culture is no growth thus far, urine culture grows E coli, pending susceptibility Follow-up procalcitonin level 10/20: Urine culture grows ESBL E coli, start meropenem IV 1 g q.8 hours (2) Pneumonia, and acute respiratory failure with hypoxemia ?Qualifiers: ?Laterality:?right??Lung location:?lower lobe of lung??Pneumonia type:?due to unspecified organism? Qualified Code(s):?J18.9 - Pneumonia, unspecified organism ?Code(s): J18.9 - Pneumonia, unspecified organism ?Status:?Acute ?Assessment and Plan: CXR: no interval change with persistent small lung volumes and unchanged opacities in bilateral lower lung zones and favor chronic atelectasis/scarring over pneumonia. CTA: No evidence of pulmonary embolus, aortic dissection, or aortic aneurysm. Atelectasis versus pneumonia in the superior segment right lower lobe. Stable kyphosis with mid to lower thoracic spinal compression fractures. MRSA+ 10/17. Sputum culture ordered. Not obtained Started on Azithromycin and Ceftriaxone, Vanc added due to +MRSA.? Currently complicated by history of COPD/asthma.? Continuing home ipratropium nebulizer PRN.? Adding albuterol neb PRN. s/w methylprednisolone 10/20: Continue azithromycin and vancomycin, discontinued ceftriaxone and start meropenem to cover ESBL. Patient is on room air (3) Influenza A: ?Code(s): J10.1 - Influenza due to other identified influenza virus with other respiratory manifestations ?Status:?Acute ?Assessm
[2023-10-20 07:58] LABS: Magnesium 1.5 mg/dL (1.6-2.3); Phosphorus 3.1 mg/dL (2.5-4.5)
[2023-10-20] MEDS: POTASSIUM CHLORIDE INJ 40 MEQ in SODIUM CHLORIDE 0.9% IV 500 ML 130 MEQ IVPB (08:40)
[2023-10-20] MEDS: LACTULOSE 20 GM/30 ML UDC 30 GM PO ×2 (08:47→17:42)
[2023-10-20] MEDS: OSELTAMIVIR PHOSPHATE 30 MG CAPSULE PO ×2 (08:49→21:20)
[2023-10-20] MEDS: PREGABALIN (*CRX) 75 MG CAPSULE PO ×2 (08:49→17:46)
[2023-10-20] MEDS: MEGESTROL ACETATE (*CHEMO) ORAL SUSP 40 MG/ML SYR 400 MG PO ×2 (08:49→21:20)
[2023-10-20] MEDS: HYDROCORTISONE 5 MG TABLET PO (08:49)
[2023-10-20] MEDS: APIXABAN 5 MG TABLET PO ×2 (08:49→21:20)
[2023-10-20] MEDS: CHOLECALCIFEROL 1,000 UNITS TABLET 1000 UNITS PO (08:49)
[2023-10-20] MEDS: PANTOPRAZOLE 40 MG TABLET PO (08:50)
[2023-10-20] MEDS: FAMOTIDINE 20 MG TABLET PO ×2 (08:50→21:19)
[2023-10-20] MEDS: POTASSIUM CHLORIDE 20 MEQ PACKET (FOR LIQUID) 40 MEQ PO (08:50)
[2023-10-20] MEDS: METOPROLOL TARTRATE 50 MG TAB PO ×2 (08:50→21:19)
[2023-10-20] MEDS: polyethylene glycoL 3350 17 GM POWD.PACK PO (08:51)
[2023-10-20] MEDS: AZITHROMYCIN 500 MG/NS 250 ML 500 MG/250 ML BAG 250 MG IVPB (12:31)
[2023-10-20] MEDS: hydrALAZINE HCL 20 MG/ML VIAL 10 MG IV PUSH ×2 (15:33→22:52)
[2023-10-20] MEDS: ACETAMINOPHEN 325 MG TABLET 650 MG PO (17:45)
[2023-10-20 19:37] LABS: Vancomycin Random 16.7 ug/mL (10-20)
[2023-10-20 19:50] LABS: Procalcitonin 0.5 ng/mL
[2023-10-20] MEDS: ALBUTEROL SULFATE NEB 2.5 MG/3 ML INH INHALATION (21:00)
[2023-10-20] MEDS: traZODone HCL 50 MG TABLET PO (21:20)
[2023-10-20] MEDS: VANCOMYCIN 1,000 MG/NS 250 ML 1,000 MG/250 ML BAG 250 MG IVPB (22:04)
[2023-10-21] VITALS (12 sets, daily range): BP systolic 129–145; BP diastolic 97–100; PULSE 97–120; RESP 18–20; TEMP 36.4–36.6; O2SAT 95–100
[2023-10-21] MEDS: methylPREDNISolone SOD SUCC 40 MG VIAL IV PUSH ×3 (01:09→12:12)
[2023-10-21] MEDS: MEROPENEM 1 GM/NS 100 ML 1 GM/100 ML BAG IVPB ×2 (01:10→16:08)
--- NOTE | 2023-10-21 02:54 | PCRCNOTE ---
pt refused her 0200 tx this morning. Pt stated she did not want it and that the smell makes her feel sick. Next scheduled tx is 0800
[2023-10-21 06:31] LABS: Anion Gap 13 mmol/L (8-16); Blood Urea Nitrogen 31 mg/dL (7-17); Calcium 8.3 mg/dL (8.4-10.2); Carbon Dioxide 12 mmol/L (22-30); Chloride 119 mmol/L (98-107); Estimated CRCL calculation 50 ml/min; Estimated Glomerular Filt Rate > 60; Glucose 146 mg/dL (65-110); Magnesium 1.6 mg/dL (1.6-2.3); Phosphorus 3.2 mg/dL (2.5-4.5); Sodium 144 mmol/L (137-145)
[2023-10-21 06:51] LABS: Basophils Percent Auto 0.2 % (0.2-1.2); Hematocrit 44.6 % (37.0-47.0); Immature Granulocyte Absolute 0.23 K/mm3 (0.00-0.031); Immature Granulocyte Percent A 1.6 % (0-0.5); Lymphocytes Absolute Auto 1.42 K/mm3 (0.9-3.2); Lymphocytes Percent Auto 9.7 % (18.3-44.2); Mean Corpuscular HGB Conc 31.4 g/dl (32-36); Mean Corpuscular Hemoglobin 27.1 pg (26-34); Mean Corpuscular Volume 86.3 fl (80-100); Mean Platelet Volume 10.8 fl (7.4-10.4); Monocytes Absolute Auto 0.4 K/mm3 (0.1-0.6); Monocytes Percent Auto 2.4 % (2.6-8.5); Neutrophils Absolute Auto 12.7 K/mm3 (1.3-6.7); Neutrophils Percent Auto 86.1 % (45.5-73.1); Platelet Count Result 374 k/mm3 (150-375); Red Blood Count 5.17 M/mm3 (4.2-5.4); Red Cell Distribution Width 14.9 % (11.5-14.5); White Blood Count 14.7 K/mm3 (4.5-10.0)
--- NOTE | 2023-10-21 08:12 | PM.IMPN ---
Progress Note: A&P Assessment and Plan (1) Pressure ulcer: Code(s): L89.90 - Pressure ulcer of unspecified site, unspecified stage Status: Acute (2) UTI (urinary tract infection): Code(s): N39.0 - Urinary tract infection, site not specified Status: Acute (3) RADHA (acute kidney injury): Code(s): N17.9 - Acute kidney failure, unspecified Status: Acute (4) Sepsis: Code(s): A41.9 - Sepsis, unspecified organism Status: Acute (5) Influenza A: Code(s): J10.1 - Influenza due to other identified influenza virus with other respiratory manifestations Status: Acute (6) Pneumonia: Qualifiers: Laterality: right Lung location: lower lobe of lung Pneumonia type: due to unspecified organism Qualified Code(s): J18.9 - Pneumonia, unspecified organism Code(s): J18.9 - Pneumonia, unspecified organism Status: Acute (7) Pulmonary embolism: Code(s): I26.99 - Other pulmonary embolism without acute cor pulmonale Status: Acute Plan ?Patient was sent to the ED via EMS from [facility] with reported SOB. Patient was given Solu-Medrol and a neb en route to the ED. Arrived with O2 sat at 95% on RA. At arrival patient reported hunger and SOB. Patient later reported 1-2 months of intermittent fevers and dysuria w/o changes in urine output. No longer experiencing SOB after she was placed on 2L NC. Denies any changes in appetite, p.o. intake. workup showed a normal WBC, hemoglobin of 11.5, hypernatremia with a sodium of 148, creatinine of 1.5, and Flu A+. CXR showed no interval change with persistent small lung volumes and unchanged opacities in the bilateral lower lung zones.? CTA showed no evidence of PE or dissection.? Atelectasis versus pneumonia in the right lower lobe. Assessment and plan (1) Sepsis: ?Code(s): A41.9 - Sepsis, unspecified organism ?Status:?Acute ?Assessment and Plan: Meets SIRS criteria: HR >100, and RR >20. WBC WNL and afebrile.? No lactic acidosis, 1.3.? Suspected source:? Pneumonia and UTI.? +Flu A.? MRSA swab+ on 10/17. Sputum culture ordered. Started on IV fluids - LR 125 mL/hr, increased to bolus x 2L to meet 30 mL/kg and maintenance fluids held. blood cultures sent. HR now improved 130's -> 100's. RR improved 30's -> 16. Contacted ID pharmacist, awaiting recs due to +MRSA, hx of EBSL and possibility of multiple sites of infection (skin/lungs/UTI) 10/19/23: Blood culture is no growth thus far, urine culture grows E coli, pending susceptibility Follow-up procalcitonin level 10/20: Urine culture grows ESBL E coli, start meropenem IV 1 g q.8 hours (2) Pneumonia, and acute respiratory failure with hypoxemia ?Qualifiers: ?Laterality:?right??Lung location:?lower lobe of lung??Pneumonia type:?due to unspecified organism? Qualified Code(s):?J18.9 - Pneumonia, unspecified organism ?Code(s): J18.9 - Pneumonia, unspecified organism ?Status:?Acute ?Assessment and Plan: CXR: no interval change with persistent small lung volumes and unchanged opacities in bilateral lower lung zones and favor chronic atelectasis/scarring over pneumonia. CTA: No evidence of pulmonary embolus, aortic dissection, or aortic aneurysm. Atelectasis versus pneumonia in the superior segment right lower lobe. Stable kyphosis with mid to lower thoracic spinal compression fractures. MRSA+ 10/17. Sputum culture ordered. Not obtained Started on Azithromycin and Ceftriaxone, Vanc added due to +MRSA.? Currently complicated by history of COPD/asthma.? Continuing home ipratropium nebulizer PRN.? Adding albuterol neb PRN. s/w methylprednisolone 10/20: Continue azithromycin and vancomycin, discontinued ceftriaxone and start meropenem to cover ESBL. Patient is on room air 10/21: Repeated chest x-ray shows bilateral atelectasis, dc methylprednisolone, patient is on room air, lungs clear (3) Influenza A: ?Code(s): J10.1 - Influe
[2023-10-21] MEDS: ALBUTEROL SULFATE NEB 2.5 MG/3 ML INH INHALATION (08:20)
[2023-10-21] MEDS: ACETYLCYSTEINE 20% INHAL SOLN 800 MG/4 ML VIAL 200 MG INHALATION ×3 (08:21→19:15)
[2023-10-21] MEDS: PANTOPRAZOLE 40 MG TABLET PO (09:02)
[2023-10-21] MEDS: FAMOTIDINE 20 MG TABLET PO ×2 (09:02→20:28)
[2023-10-21] MEDS: PREGABALIN (*CRX) 75 MG CAPSULE PO ×2 (09:02→16:09)
[2023-10-21] MEDS: OSELTAMIVIR PHOSPHATE 30 MG CAPSULE PO ×2 (09:02→20:28)
[2023-10-21] MEDS: CHOLECALCIFEROL 1,000 UNITS TABLET 1000 UNITS PO (09:02)
[2023-10-21] MEDS: HYDROCORTISONE 5 MG TABLET PO (09:02)
[2023-10-21] MEDS: MEGESTROL ACETATE (*CHEMO) ORAL SUSP 40 MG/ML SYR 400 MG PO ×2 (09:03→20:27)
[2023-10-21] MEDS: APIXABAN 5 MG TABLET PO ×2 (09:03→20:28)
[2023-10-21] MEDS: METOPROLOL TARTRATE 50 MG TAB PO ×2 (09:03→20:27)
[2023-10-21] MEDS: LACTULOSE 20 GM/30 ML UDC 30 GM PO ×2 (09:03→16:08)
[2023-10-21] MEDS: AZITHROMYCIN 500 MG/NS 250 ML 500 MG/250 ML BAG 250 MG IVPB (16:07)
[2023-10-21] MEDS: SALINE LOCK FLUSH 10 ML IV PUSH ×2 (16:08→20:29)
[2023-10-21 18:32] LABS: Procalcitonin 0.3 ng/mL
[2023-10-21] MEDS: VANCOMYCIN 1,000 MG/NS 250 ML 1,000 MG/250 ML BAG 250 MG IVPB (20:28)
[2023-10-21] MEDS: traZODone HCL 50 MG TABLET PO (20:28)
[2023-10-22] VITALS (14 sets, daily range): BP systolic 130–146; BP diastolic 89–107; PULSE 92–127; RESP 18–20; TEMP 36.1–36.9; O2SAT 93–99
[2023-10-22] MEDS: MEROPENEM 1 GM/NS 100 ML 1 GM/100 ML BAG IVPB ×2 (01:05→13:48)
[2023-10-22] MEDS: ACETYLCYSTEINE 20% INHAL SOLN 800 MG/4 ML VIAL 200 MG INHALATION ×4 (01:27→20:16)
[2023-10-22] MEDS: SALINE LOCK FLUSH 10 ML IV PUSH ×3 (05:32→21:46)
[2023-10-22] MEDS: SALINE LOCK FLUSH 20 ML IV PUSH (05:32)
[2023-10-22 05:49] LABS: Estimated CRCL calculation 45 ml/min; Estimated Glomerular Filt Rate 57; Magnesium 1.9 mg/dL (1.6-2.3); Phosphorus 3.1 mg/dL (2.5-4.5)
[2023-10-22] MEDS: ALBUTEROL SULFATE NEB 2.5 MG/3 ML INH INHALATION ×2 (07:56→20:17)
[2023-10-22] MEDS: CHOLECALCIFEROL 1,000 UNITS TABLET 1000 UNITS PO (09:20)
[2023-10-22] MEDS: METOPROLOL TARTRATE 50 MG TAB PO ×2 (09:20→21:46)
[2023-10-22] MEDS: PREGABALIN (*CRX) 75 MG CAPSULE PO ×2 (09:20→17:19)
[2023-10-22] MEDS: OSELTAMIVIR PHOSPHATE 30 MG CAPSULE PO ×2 (09:20→21:46)
[2023-10-22] MEDS: APIXABAN 5 MG TABLET PO ×2 (09:20→21:46)
[2023-10-22] MEDS: HYDROCORTISONE 5 MG TABLET PO (09:21)
[2023-10-22] MEDS: FAMOTIDINE 20 MG TABLET PO ×2 (09:21→21:46)
[2023-10-22] MEDS: PANTOPRAZOLE 40 MG TABLET PO (09:21)
[2023-10-22] MEDS: MEGESTROL ACETATE (*CHEMO) ORAL SUSP 40 MG/ML SYR 400 MG PO ×2 (09:22→21:46)
[2023-10-22] MEDS: AZITHROMYCIN 500 MG/NS 250 ML 500 MG/250 ML BAG 250 MG IVPB (11:15)
--- NOTE | 2023-10-22 11:59 | P.PNIM_ITS ---
Progress Note: A&P Assessment and Plan (1) Pressure ulcer: Code(s): L89.90 - Pressure ulcer of unspecified site, unspecified stage Status: Acute (2) UTI (urinary tract infection): Code(s): N39.0 - Urinary tract infection, site not specified Status: Acute (3) RADHA (acute kidney injury): Code(s): N17.9 - Acute kidney failure, unspecified Status: Acute (4) Sepsis: Code(s): A41.9 - Sepsis, unspecified organism Status: Acute (5) Influenza A: Code(s): J10.1 - Influenza due to other identified influenza virus with other respiratory manifestations Status: Acute (6) Pneumonia: Qualifiers: Laterality: right Lung location: lower lobe of lung Pneumonia type: due to unspecified organism Qualified Code(s): J18.9 - Pneumonia, unspecified organism Code(s): J18.9 - Pneumonia, unspecified organism Status: Acute (7) Pulmonary embolism: Code(s): I26.99 - Other pulmonary embolism without acute cor pulmonale Status: Acute Plan ?Patient was sent to the ED via EMS from [facility] with reported SOB. Patient was given Solu-Medrol and a neb en route to the ED. Arrived with O2 sat at 95% on RA. At arrival patient reported hunger and SOB. Patient later reported 1-2 months of intermittent fevers and dysuria w/o changes in urine output. No longer experiencing SOB after she was placed on 2L NC. Denies any changes in appetite, p.o. intake. workup showed a normal WBC, hemoglobin of 11.5, hypernatremia with a sodium of 148, creatinine of 1.5, and Flu A+. CXR showed no interval change with persistent small lung volumes and unchanged opacities in the bilateral lower lung zones.? CTA showed no evidence of PE or dissection.? Atelectasis versus pneumonia in the right lower lobe. Assessment and plan (1) Sepsis: ?Code(s): A41.9 - Sepsis, unspecified organism ?Status:?Acute ?Assessment and Plan: Meets SIRS criteria: HR >100, and RR >20. WBC WNL and afebrile.? No lactic acidosis, 1.3.? Suspected source:? Pneumonia and UTI.? +Flu A.? MRSA swab+ on 10/17. Sputum culture ordered. Started on IV fluids - LR 125 mL/hr, increased to bolus x 2L to meet 30 mL/kg and maintenance fluids held. blood cultures sent. HR now improved 130's -> 100's. RR improved 30's -> 16. Contacted ID pharmacist, awaiting recs due to +MRSA, hx of EBSL and possibility of multiple sites of infection (skin/lungs/UTI) 10/19/23: Blood culture is no growth thus far, urine culture grows E coli, pending susceptibility Follow-up procalcitonin level 10/20: Urine culture grows ESBL E coli, start meropenem IV 1 g q.8 hours (2) Pneumonia, and acute respiratory failure with hypoxemia ?Qualifiers: ?Laterality:?right??Lung location:?lower lobe of lung??Pneumonia type:? due to unspecified organism? Qualified Code(s):?J18.9 - Pneumonia, unspecified organism ?Code(s): J18.9 - Pneumonia, unspecified organism ?Status:?Acute ?Assessment and Plan: CXR: no interval change with persistent small lung volumes and unchanged opacities in bilateral lower lung zones and favor chronic atelectasis/scarring over pneumonia. CTA: No evidence of pulmonary embolus, aortic dissection, or aortic aneurysm. Atelectasis versus pneumonia in the superior segment right lower lobe. Stable kyphosis with mid to lower thoracic spinal compression fractures. MRSA+ 10/17. Sputum culture ordered. Not obtained Started on Azithromycin and Ceftriaxone, Vanc added due to +MRSA.? Currently complicated by history of COPD/asthma.? Continuing home ipratropium nebulizer PRN.? Ad
[2023-10-22 12:48] LABS: Appearance Urine Cloudy (Clear); Bacteria Urine None Seen /hpf; Bilirubin Urine 1+ (Negative); Blood Urine 3+ (Negative); Color Urine Dark Yellow (Yellow); Glucose Urine UA Negative (Negative); Ketones Urine Trace mg/dL (Negative); Leukocyte Esterase Ur Trace LEU/UL (NEGATIVE); Need Manual Microscopic Reviewed; Nitrate Urine Positive (Negative); Protein Urine 4+ mg/dL (Negative); RBC Urine >100 /hpf (0-2); Squamous Epithelial Cell Urine None seen /hpf (Few); pH Urine 6.5 (5.0-9.0)
[2023-10-22 12:49] LABS: Add Urine Microscopic? YES; Specific Grav Ur 1.051 (1.001-1.035)
[2023-10-22 13:13] LABS: Basophils Percent Auto 0.1 % (0.2-1.2); Hematocrit 39.7 % (37.0-47.0); Hemoglobin 12.3 g/dL (12.0-15.0); Immature Granulocyte Percent A 1.6 % (0-0.5); Lymphocytes Absolute Auto 1.44 K/mm3 (0.9-3.2); Lymphocytes Percent Auto 7.4 % (18.3-44.2); Mean Corpuscular Hemoglobin 26.7 pg (26-34); Mean Corpuscular Volume 86.3 fl (80-100); Mean Platelet Volume 10.9 fl (7.4-10.4); Monocytes Absolute Auto 0.5 K/mm3 (0.1-0.6); Monocytes Percent Auto 2.3 % (2.6-8.5); Neutrophils Absolute Auto 17.1 K/mm3 (1.3-6.7); Neutrophils Percent Auto 88.6 % (45.5-73.1); Platelet Count Result 282 k/mm3 (150-375); Red Cell Distribution Width 15.3 % (11.5-14.5); White Blood Count 19.3 K/mm3 (4.5-10.0)
[2023-10-22 13:23] LABS: Anion Gap 10 mmol/L (8-16); Blood Urea Nitrogen 34 mg/dL (7-17); Calcium 8.2 mg/dL (8.4-10.2); Carbon Dioxide 18 mmol/L (22-30); Chloride 118 mmol/L (98-107); Estimated CRCL calculation 45 ml/min; Estimated Glomerular Filt Rate 57; Glucose 149 mg/dL (65-110); Potassium 3.8 mmol/L (3.4-5.0); Sodium 146 mmol/L (137-145)
[2023-10-22] MEDS: LACTULOSE 20 GM/30 ML UDC 30 GM PO (17:19)
[2023-10-22] MEDS: traZODone HCL 50 MG TABLET PO (21:46)
[2023-10-23] VITALS (16 sets, daily range): BP systolic 106–152; BP diastolic 71–114; PULSE 88–118; RESP 17–20; TEMP 35.7–36.5; O2SAT 94–100
[2023-10-23] MEDS: ERTAPENEM 1 GM/NS 50 ML 1 GM/50 ML BAG IVPB (01:10)
[2023-10-23] MEDS: SALINE LOCK FLUSH 10 ML IV PUSH ×3 (04:34→21:16)
[2023-10-23] MEDS: SALINE LOCK FLUSH 20 ML IV PUSH (04:34)
[2023-10-23 04:40] LABS: Basophils Percent Auto 0.2 % (0.2-1.2); Hemoglobin 11.3 g/dL (12.0-15.0); Immature Granulocyte Absolute 0.19 K/mm3 (0.00-0.031); Immature Granulocyte Percent A 1.8 % (0-0.5); Lymphocytes Absolute Auto 1.15 K/mm3 (0.9-3.2); Mean Corpuscular HGB Conc 30.5 g/dl (32-36); Mean Corpuscular Volume 88.3 fl (80-100); Mean Platelet Volume 10.4 fl (7.4-10.4); Monocytes Absolute Auto 0.2 K/mm3 (0.1-0.6); Monocytes Percent Auto 2.1 % (2.6-8.5); Neutrophils Absolute Auto 8.8 K/mm3 (1.3-6.7); Neutrophils Percent Auto 84.9 % (45.5-73.1); Platelet Count Result 198 k/mm3 (150-375); Red Blood Count 4.19 M/mm3 (4.2-5.4); Red Cell Distribution Width 15.3 % (11.5-14.5); White Blood Count 10.4 K/mm3 (4.5-10.0)
[2023-10-23 04:49] LABS: Anion Gap 8 mmol/L (8-16); Blood Urea Nitrogen 29 mg/dL (7-17); Carbon Dioxide 19 mmol/L (22-30); Chloride 119 mmol/L (98-107); Estimated CRCL calculation 50 ml/min; Estimated Glomerular Filt Rate > 60; Glucose 94 mg/dL (65-110); Potassium 3.7 mmol/L (3.4-5.0); Sodium 146 mmol/L (137-145)
[2023-10-23] MEDS: METOPROLOL TARTRATE 50 MG TAB PO ×2 (08:35→21:15)
[2023-10-23] MEDS: APIXABAN 5 MG TABLET PO ×2 (08:35→21:15)
[2023-10-23] MEDS: HYDROCORTISONE 5 MG TABLET PO (08:35)
[2023-10-23] MEDS: PANTOPRAZOLE 40 MG TABLET PO (08:35)
[2023-10-23] MEDS: PREGABALIN (*CRX) 75 MG CAPSULE PO ×2 (08:35→16:24)
[2023-10-23] MEDS: CHOLECALCIFEROL 1,000 UNITS TABLET 1000 UNITS PO (08:35)
[2023-10-23] MEDS: FAMOTIDINE 20 MG TABLET PO ×2 (08:37→21:15)
[2023-10-23] MEDS: MEGESTROL ACETATE (*CHEMO) ORAL SUSP 40 MG/ML SYR 400 MG PO ×2 (08:40→21:15)
[2023-10-23] MEDS: ALBUTEROL SULFATE NEB 2.5 MG/3 ML INH INHALATION ×2 (09:32→20:19)
[2023-10-23] MEDS: ACETYLCYSTEINE 20% INHAL SOLN 800 MG/4 ML VIAL 200 MG INHALATION ×3 (09:32→20:19)
--- NOTE | 2023-10-23 11:38 | PCNFU ---
Nutrition Follow-Up Complete: Increased Protein needs as related to wounds as evidenced by pressure ulcers reported. goal: Adequate Intake of at least 75% of meals/supplements Patient is progressing towards goal. We will continue current goal Pt current nutrition is Heart Healthy with Maged BID. Last recorded weight is 64 kg. Bowel Motility: +Bm reported 10/22 Labs Reviewed: Na 146, BUN 29 Meds Noted: Megace, Pepcid, Protonix, Vit D, Invanz. Skin:right heel- stage III, Left and Right Ischium-stage III. Additional Notes: Patient remains on heart healthy diet. Oral Intake has been fair 25-75% reported. Patient remains on Maged BID for wound healing. Agree with diet orders. Will monitor weight, labs, skin, oral intake, meds every 5 days.
--- NOTE | 2023-10-23 12:56 | PM.IMPN ---
Progress Note: A&P Assessment and Plan (1) Pressure ulcer: Code(s): L89.90 - Pressure ulcer of unspecified site, unspecified stage Status: Acute (2) UTI (urinary tract infection): Code(s): N39.0 - Urinary tract infection, site not specified Status: Acute (3) RADHA (acute kidney injury): Code(s): N17.9 - Acute kidney failure, unspecified Status: Acute (4) Sepsis: Code(s): A41.9 - Sepsis, unspecified organism Status: Acute (5) Influenza A: Code(s): J10.1 - Influenza due to other identified influenza virus with other respiratory manifestations Status: Acute (6) Pneumonia: Qualifiers: Laterality: right Lung location: lower lobe of lung Pneumonia type: due to unspecified organism Qualified Code(s): J18.9 - Pneumonia, unspecified organism Code(s): J18.9 - Pneumonia, unspecified organism Status: Acute (7) Pulmonary embolism: Code(s): I26.99 - Other pulmonary embolism without acute cor pulmonale Status: Acute Plan Assessment and plan (1) Sepsis: ?Code(s): A41.9 - Sepsis, unspecified organism ?Status:?Acute ?Assessment and Plan: Meets SIRS criteria: HR >100, and RR >20. WBC WNL and afebrile.? No lactic acidosis, 1.3.? Suspected source:? Pneumonia and UTI.? +Flu A.? MRSA swab+ on 10/17. Sputum culture ordered. Started on IV fluids - LR 125 mL/hr, increased to bolus x 2L to meet 30 mL/kg and maintenance fluids held. blood cultures sent. HR now improved 130's -> 100's. RR improved 30's -> 16. Contacted ID pharmacist, awaiting recs due to +MRSA, hx of EBSL and possibility of multiple sites of infection (skin/lungs/UTI) 10/19/23: Blood culture is no growth thus far, urine culture grows E coli, pending susceptibility Follow-up procalcitonin level 10/20: Urine culture grows ESBL E coli, start meropenem IV 1 g q.8 hours 10/23: pt is on ertapenem day 3 (2) Pneumonia, and acute respiratory failure with hypoxemia ?Qualifiers: ?Laterality:?right??Lung location:?lower lobe of lung??Pneumonia type:?due to unspecified organism? Qualified Code(s):?J18.9 - Pneumonia, unspecified organism ?Code(s): J18.9 - Pneumonia, unspecified organism ?Status:?Acute ?Assessment and Plan: CXR: no interval change with persistent small lung volumes and unchanged opacities in bilateral lower lung zones and favor chronic atelectasis/scarring over pneumonia. CTA: No evidence of pulmonary embolus, aortic dissection, or aortic aneurysm. Atelectasis versus pneumonia in the superior segment right lower lobe. Stable kyphosis with mid to lower thoracic spinal compression fractures. MRSA+ 10/17. Sputum culture ordered. Not obtained Started on Azithromycin and Ceftriaxone, Vanc added due to +MRSA.? Currently complicated by history of COPD/asthma.? Continuing home ipratropium nebulizer PRN.? Adding albuterol neb PRN. s/w methylprednisolone 10/20: Continue azithromycin and vancomycin, discontinued ceftriaxone and start meropenem to cover ESBL. Patient is on room air 10/21: Repeated chest x-ray shows bilateral atelectasis, dc methylprednisolone, patient is on room air, lungs clear 10/23: Pt is doing better (3) Influenza A: ?Code(s): J10.1 - Influenza due to other identified influenza virus with other respiratory manifestations ?Status:?Acute ?Assessment and Plan: given history of COPD/asthma, respiratory failure, patient will benefit from Tamiflu Start Tamiflu at renal does 10/18 for 5 days last day today continue supportive care. pt is improving (4) RADHA (acute kidney injury): ?Code(s): N17.9 - Acute kidney failure, unspecified ?Status:?Acute ?Assessment and Plan: Patient has history of right nephrectomy due to malignant neoplasm.? Denied history of chronic kidney disease.? Creatinine currently 1.5, BUN 59, ECC 35, and GFR 36. Suspect RADHA is secondary to current UTI and dehydration given hypernatremia. Creat i
--- NOTE | 2023-10-23 13:45 | PCRCNOTE ---
RT had to return at a later time due to pt being washed up. Will offer neb tx at a later time.
[2023-10-23] MEDS: traZODone HCL 50 MG TABLET PO (21:15)
[2023-10-24] VITALS (7 sets, daily range): BP systolic 129–144; BP diastolic 81–97; PULSE 93–108; RESP 16–20; TEMP 36–36.4; O2SAT 97–99
[2023-10-24] MEDS: ERTAPENEM 1 GM/NS 50 ML 1 GM/50 ML BAG IVPB (01:47)
[2023-10-24] MEDS: ACETYLCYSTEINE 20% INHAL SOLN 800 MG/4 ML VIAL 200 MG INHALATION (03:14)
[2023-10-24] MEDS: IPRATROPIUM BR 0.02% INH SOLN 0.5 MG/2.5 ML VIAL INHALATION (03:15)
[2023-10-24] MEDS: ALBUTEROL SULFATE NEB 2.5 MG/3 ML INH INHALATION (03:15)
[2023-10-24] MEDS: SALINE LOCK FLUSH 10 ML IV PUSH ×3 (06:45→20:58)
[2023-10-24 07:04] LABS: Basophils Percent Auto 0.2 % (0.2-1.2); Eosinophils Percent Auto 0.3 % (0-4.4); Hematocrit 34.2 % (37.0-47.0); Hemoglobin 10.5 g/dL (12.0-15.0); Immature Granulocyte Absolute 0.17 K/mm3 (0.00-0.031); Immature Granulocyte Percent A 1.5 % (0-0.5); Lymphocytes Absolute Auto 1.37 K/mm3 (0.9-3.2); Lymphocytes Percent Auto 11.8 % (18.3-44.2); Mean Corpuscular HGB Conc 30.7 g/dl (32-36); Mean Corpuscular Hemoglobin 27.4 pg (26-34); Mean Corpuscular Volume 89.3 fl (80-100); Mean Platelet Volume 11.2 fl (7.4-10.4); Monocytes Absolute Auto 0.3 K/mm3 (0.1-0.6); Monocytes Percent Auto 2.2 % (2.6-8.5); Neutrophils Absolute Auto 9.8 K/mm3 (1.3-6.7); Platelet Count Result 202 k/mm3 (150-375); Red Blood Count 3.83 M/mm3 (4.2-5.4); Red Cell Distribution Width 15.4 % (11.5-14.5); White Blood Count 11.6 K/mm3 (4.5-10.0)
[2023-10-24] MEDS: PREGABALIN (*CRX) 75 MG CAPSULE PO ×2 (09:08→17:56)
[2023-10-24] MEDS: PANTOPRAZOLE 40 MG TABLET PO (09:08)
[2023-10-24] MEDS: FAMOTIDINE 20 MG TABLET PO ×2 (09:08→20:50)
[2023-10-24] MEDS: METOPROLOL TARTRATE 50 MG TAB PO ×2 (09:09→20:51)
[2023-10-24] MEDS: CHOLECALCIFEROL 1,000 UNITS TABLET 1000 UNITS PO (09:09)
[2023-10-24] MEDS: HYDROCORTISONE 5 MG TABLET PO (09:09)
[2023-10-24] MEDS: APIXABAN 5 MG TABLET PO ×2 (09:09→20:50)
[2023-10-24] MEDS: MEGESTROL ACETATE (*CHEMO) ORAL SUSP 40 MG/ML SYR 400 MG PO ×2 (09:11→20:53)
[2023-10-24 11:34] LABS: Anion Gap 10 mmol/L (8-16); Blood Urea Nitrogen 29 mg/dL (7-17); Carbon Dioxide 19 mmol/L (22-30); Chloride 113 mmol/L (98-107); Estimated CRCL calculation 63 ml/min; Estimated Glomerular Filt Rate > 60; Glucose 100 mg/dL (65-110); Potassium 3.8 mmol/L (3.4-5.0); Sodium 142 mmol/L (137-145)
--- NOTE | 2023-10-24 14:30 | PM.IMPN ---
Progress Note: A&P Assessment and Plan (1) Pressure ulcer: Code(s): L89.90 - Pressure ulcer of unspecified site, unspecified stage Status: Acute (2) UTI (urinary tract infection): Code(s): N39.0 - Urinary tract infection, site not specified Status: Acute (3) RADHA (acute kidney injury): Code(s): N17.9 - Acute kidney failure, unspecified Status: Acute (4) Sepsis: Code(s): A41.9 - Sepsis, unspecified organism Status: Acute (5) Influenza A: Code(s): J10.1 - Influenza due to other identified influenza virus with other respiratory manifestations Status: Acute (6) Pneumonia: Qualifiers: Laterality: right Lung location: lower lobe of lung Pneumonia type: due to unspecified organism Qualified Code(s): J18.9 - Pneumonia, unspecified organism Code(s): J18.9 - Pneumonia, unspecified organism Status: Acute (7) Pulmonary embolism: Code(s): I26.99 - Other pulmonary embolism without acute cor pulmonale Status: Acute Plan Assessment and plan (1) Sepsis: ?Code(s): A41.9 - Sepsis, unspecified organism ?Status:?Acute ?Assessment and Plan: Meets SIRS criteria: HR >100, and RR >20. WBC WNL and afebrile.? No lactic acidosis, 1.3.? Suspected source:? Pneumonia and UTI.? +Flu A.? MRSA swab+ on 10/17. Sputum culture ordered. Started on IV fluids - LR 125 mL/hr, increased to bolus x 2L to meet 30 mL/kg and maintenance fluids held. blood cultures sent. HR now improved 130's -> 100's. RR improved 30's -> 16. Contacted ID pharmacist, awaiting recs due to +MRSA, hx of EBSL and possibility of multiple sites of infection (skin/lungs/UTI) 10/19/23: Blood culture is no growth thus far, urine culture grows E coli, pending susceptibility Follow-up procalcitonin level 10/20: Urine culture grows ESBL E coli, start meropenem IV 1 g q.8 hours 10/23: pt is on ertapenem day 3 10/24 Day 4 ertapenem dc chandana am (2) Pneumonia, and acute respiratory failure with hypoxemia ?Qualifiers: ?Laterality:?right??Lung location:?lower lobe of lung??Pneumonia type:?due to unspecified organism? Qualified Code(s):?J18.9 - Pneumonia, unspecified organism ?Code(s): J18.9 - Pneumonia, unspecified organism ?Status:?Acute ?Assessment and Plan: CXR: no interval change with persistent small lung volumes and unchanged opacities in bilateral lower lung zones and favor chronic atelectasis/scarring over pneumonia. CTA: No evidence of pulmonary embolus, aortic dissection, or aortic aneurysm. Atelectasis versus pneumonia in the superior segment right lower lobe. Stable kyphosis with mid to lower thoracic spinal compression fractures. MRSA+ 10/17. Sputum culture ordered. Not obtained Started on Azithromycin and Ceftriaxone, Vanc added due to +MRSA.? Currently complicated by history of COPD/asthma.? Continuing home ipratropium nebulizer PRN.? Adding albuterol neb PRN. s/w methylprednisolone 10/20: Continue azithromycin and vancomycin, discontinued ceftriaxone and start meropenem to cover ESBL. Patient is on room air 10/21: Repeated chest x-ray shows bilateral atelectasis, dc methylprednisolone, patient is on room air, lungs clear 10/23: Pt is doing better 10/24: pt feels better (3) Influenza A: ?Code(s): J10.1 - Influenza due to other identified influenza virus with other respiratory manifestations ?Status:?Acute ?Assessment and Plan: given history of COPD/asthma, respiratory failure, patient will benefit from Tamiflu Start Tamiflu at renal does 10/18 for 5 days last day today continue supportive care. pt is improving (4) RADHA (acute kidney injury): ?Code(s): N17.9 - Acute kidney failure, unspecified ?Status:?Acute ?Assessment and Plan: Patient has history of right nephrectomy due to malignant neoplasm.? Denied history of chronic kidney disease.? Creatinine currently 1.5, BUN 59, ECC 35, and GFR 36. Suspect RADHA is secondary to c
[2023-10-24] MEDS: traZODone HCL 50 MG TABLET PO (20:51)
[2023-10-25 06:11] LABS: Hematocrit 35.8 % (37.0-47.0); Hemoglobin 10.7 g/dL (12.0-15.0); Mean Corpuscular HGB Conc 29.9 g/dl (32-36); Mean Corpuscular Volume 90.4 fl (80-100); Mean Platelet Volume 10.8 fl (7.4-10.4); Platelet Count Result 241 k/mm3 (150-375); Red Blood Count 3.96 M/mm3 (4.2-5.4); Red Cell Distribution Width 15.4 % (11.5-14.5); White Blood Count 12.1 K/mm3 (4.5-10.0)
[2023-10-25] MEDS: SALINE LOCK FLUSH 10 ML IV PUSH (06:15)
[2023-10-25 06:21] VITALS: BP 122/85; PULSE 100; RESP 14; TEMP 36.5; O2SAT 93
[2023-10-25 06:23] LABS: Anion Gap 6 mmol/L (8-16); Blood Urea Nitrogen 31 mg/dL (7-17); Calcium 8.1 mg/dL (8.4-10.2); Carbon Dioxide 22 mmol/L (22-30); Chloride 113 mmol/L (98-107); Estimated CRCL calculation 45 ml/min; Estimated Glomerular Filt Rate 57; Glucose 96 mg/dL (65-110); Potassium 4.1 mmol/L (3.4-5.0); Sodium 141 mmol/L (137-145)
[2023-10-25] MEDS: FAMOTIDINE 20 MG TABLET PO (08:32)
[2023-10-25] MEDS: CHOLECALCIFEROL 1,000 UNITS TABLET 1000 UNITS PO (08:32)
[2023-10-25] MEDS: APIXABAN 5 MG TABLET PO (08:32)
[2023-10-25] MEDS: PREGABALIN (*CRX) 75 MG CAPSULE PO (08:33)
[2023-10-25] MEDS: PANTOPRAZOLE 40 MG TABLET PO (08:33)
[2023-10-25] MEDS: MEGESTROL ACETATE (*CHEMO) ORAL SUSP 40 MG/ML SYR 400 MG PO (08:33)
[2023-10-25] MEDS: HYDROCORTISONE 5 MG TABLET PO (08:33)
[2023-10-25] MEDS: METOPROLOL TARTRATE 50 MG TAB PO (08:33)
--- NOTE | 2023-10-25 09:23 | PM.DS ---
DS: Admitting Diagnosis Discharge Date 10/25/2023 Admitting Diagnosis hypoxia DS: Discharge Diagnosis Discharge Diagnosis (1) Pressure ulcer: Code(s): L89.90 - Pressure ulcer of unspecified site, unspecified stage Status: Acute (2) UTI (urinary tract infection): Code(s): N39.0 - Urinary tract infection, site not specified Status: Acute (3) RADHA (acute kidney injury): Code(s): N17.9 - Acute kidney failure, unspecified Status: Acute (4) Sepsis: Code(s): A41.9 - Sepsis, unspecified organism Status: Acute (5) Influenza A: Code(s): J10.1 - Influenza due to other identified influenza virus with other respiratory manifestations Status: Acute (6) Pneumonia: Qualifiers: Laterality: right Lung location: lower lobe of lung Pneumonia type: due to unspecified organism Qualified Code(s): J18.9 - Pneumonia, unspecified organism Code(s): J18.9 - Pneumonia, unspecified organism Status: Acute (7) Pulmonary embolism: Code(s): I26.99 - Other pulmonary embolism without acute cor pulmonale Status: Acute (8) Functional quadriplegia secondary to MS: Code(s): G35 - Multiple sclerosis; R53.2 - Functional quadriplegia Status: Acute (9) Multiple sclerosis: Code(s): G35 - Multiple sclerosis Status: Acute Plan Assessment and plan (1) Sepsis: ?Code(s): A41.9 - Sepsis, unspecified organism ?Status:?Acute ?Assessment and Plan: Meets SIRS criteria: HR >100, and RR >20. WBC WNL and afebrile.? No lactic acidosis, 1.3.? Suspected source:? Pneumonia and UTI.? +Flu A.? MRSA swab+ on 10/17. Sputum culture ordered. Started on IV fluids - LR 125 mL/hr, increased to bolus x 2L to meet 30 mL/kg and maintenance fluids held. blood cultures sent. HR now improved 130's -> 100's. RR improved 30's -> 16. Contacted ID pharmacist, awaiting recs due to +MRSA, hx of EBSL and possibility of multiple sites of infection (skin/lungs/UTI) 10/19/23: Blood culture is no growth thus far, urine culture grows E coli, pending susceptibility Follow-up procalcitonin level 10/20: Urine culture grows ESBL E coli, start meropenem IV 1 g q.8 hours 10/23: pt is on ertapenem day 3 10/24: Day 4 ertapenem dc chandana am 10/25: ok to Dc today (2) Pneumonia, and acute respiratory failure with hypoxemia ?Qualifiers: ?Laterality:?right??Lung location:?lower lobe of lung??Pneumonia type:?due to unspecified organism? Qualified Code(s):?J18.9 - Pneumonia, unspecified organism ?Code(s): J18.9 - Pneumonia, unspecified organism ?Status:?Acute ?Assessment and Plan: CXR: no interval change with persistent small lung volumes and unchanged opacities in bilateral lower lung zones and favor chronic atelectasis/scarring over pneumonia. CTA: No evidence of pulmonary embolus, aortic dissection, or aortic aneurysm. Atelectasis versus pneumonia in the superior segment right lower lobe. Stable kyphosis with mid to lower thoracic spinal compression fractures. MRSA+ 10/17. Sputum culture ordered. Not obtained Started on Azithromycin and Ceftriaxone, Vanc added due to +MRSA.? Currently complicated by history of COPD/asthma.? Continuing home ipratropium nebulizer PRN.? Adding albuterol neb PRN. s/w methylprednisolone 10/20: Continue azithromycin and vancomycin, discontinued ceftriaxone and start meropenem to cover ESBL. Patient is on room air 10/21: Repeated chest x-ray shows bilateral atelectasis, dc methylprednisolone, patient is on room air, lungs clear 10/23: Pt is doing better 10/24: pt feels better ok to DC chandana (3) Influenza A: ?Code(s): J10.1 - Influenza due to other identified influenza virus with other respiratory manifestations ?Status:?Acute ?Assessment and Plan: given history of COPD/asthma, respiratory failure, patient will benefit from Tamiflu Start Tamiflu at renal does 10/18 for 5 days last day today continue supportive care. p
[2023-10-25 10:55] LABS: SARS-CoV-2 RNA PCR Negative (Negative)
== END 2023-10-25 13:50 | DRG 871 ==
LOC: ANHED 11:21 → ANH2MED 14:55
PROVIDERS: Hospitalist; Student in an Organized Health Care Education/Training Program; Admitting Provider Internal Medicine; Emergency Provider Nurse Practitioner Family; PCP Hospitalist; Visit Provider Family Medicine
DX: A41.9 Sepsis, unspecified organism (principal); I26.99 Other pulmonary embolism without acute cor pulmonale; J18.9 Pneumonia, unspecified organism; L89.893 Pressure ulcer of other site, stage 3; L89.613 Pressure ulcer of right heel, stage 3; L89.153 Pressure ulcer of sacral region, stage 3; R53.2 Functional quadriplegia; N17.9 Acute kidney failure, unspecified; N39.0 Urinary tract infection, site not specified; J44.0 Chronic obstructive pulmonary disease with (acute) lower respiratory infection; E87.0 Hyperosmolality and hypernatremia; I10 Essential (primary) hypertension; E86.0 Dehydration; B96.20 Unspecified Escherichia coli [E. coli] as the cause of diseases classified elsewhere; J10.1 Influenza due to other identified influenza virus with other respiratory manifestations; G35 Multiple sclerosis; Z20.822 Contact with and (suspected) exposure to COVID-19; F25.9 Schizoaffective disorder, unspecified; N32.81 Overactive bladder; D50.9 Iron deficiency anemia, unspecified; E87.6 Hypokalemia; D64.9 Anemia, unspecified; Z86.711 Personal history of pulmonary embolism; Z85.528 Personal history of other malignant neoplasm of kidney; Z90.5 Acquired absence of kidney
CPT/HCPCS: 36415; 36569; 71045; 71275; 80048; 80053; 80202; 81001; 82565; 82948; 83540; 83550; 83605; 83735; 83880; 84100; 84145; 84484; 85025; 85027; 85380; 85610; 85730; 87040; 87070; 87077; 87086; 87088; 87186; 87205; 87635; 87637; 87641; 93005; 94640; 96360; 99285; A9270; C1751; J0360; J0456; J0696; J1335; J2185; J2920; J3370; J3480; J7030; J7040; J7120; Q9967

== ENCOUNTER 2023-12-30 23:10 | Inpatient (IN) | payer MEDICARE, MEDICAID, SELFPAY ==
--- NOTE | ~2023-12-30 | CT_ITS ---
EXAMINATION: CT chest abdomen pelvis w con DATE: 12/31/2023 02:24 INDICATION: Chest pain. Abdominal pain. TECHNIQUE: Computed tomography (CT) of the chest, abdomen, and pelvis was performed with 100 mL Omnip aque 350 intravenous contrast. Automated exposure control and iterative reconstruction technique were employed. The dose-length product was 777.12 mGy-cm. COMPARISON: Chest CT 10/17/2023 FINDINGS: CHEST CT: The lungs demonstrate mild atelectasis. No pleural effusion. The heart size is normal. There are aakash nary artery calcifications. No pericardial effusion. There is moderate thoracic spondylosis. Chronic anterior wedging of multiple thoracic vertebral bodies. ABDOMEN/PELVIS CT: There is a 7 mm cyst in the liver. The gallbladder is normal in size. The spleen, pancreas, and adren al glands are normal. There are changes of right nephrectomy. There is cortical thinning of left kidn ey. There is an 8 mm cyst in left kidney. There are innumerable stones in left kidney measuring up to 7 mm . There is mild left hydronephrosis and hydroureter. There is urothelial thickening and enhance ment in left kidney, consistent with pyelitis. There are inserts in the fallopian tubes. Stool disten ds the rectosigmoid. The appendix is normal. There is mild left paraaortic lymphadenopathy. There is internal fixation of proximal right femur. There is fusion of left hip joint. There is neuropathic os teoarthropathy of right hip joint. There is a sacral decubitus ulcer. There are bilateral ischial dec ubitus ulcers. There is chronic deformity of the ischial tuberosities. There is moderate lumbar spond ylosis. IMPRESSION: 1. Left-sided pyelitis. 2. Nonobstructing left kidney stones. 3. Stool distends the rectosigmoid. 4. Mild left para-aortic lymphadenopathy, likely reactive. Reviewed, dictated and finalized at location A.
--- NOTE | ~2023-12-30 | CT_ITS ---
EXAMINATION: CT brain wo con DATE: 01/08/2024 08:52 INDICATION: Altered mental status. TECHNIQUE: Computed tomography (CT) of the head was performed without intravenous contrast. The mA wa s adjusted according to patient size. Iterative reconstruction technique was employed. The dose-lengt h product was 908.00 mGy-cm. COMPARISON: None FINDINGS: There are scattered areas of low attenuation in the cerebral white matter. There is no intr acranial hemorrhage, acute infarction, or abnormal intracranial mass lesion. The ventricles are nayely l in size. There is mild mucosal thickening in the paranasal sinuses. Right ocular globe is enlarged with anteroposterior elongation. The mastoid air cells are normal. IMPRESSION: 1. Moderate nonspecific cerebral white matter disease, which likely represents chronic small vessel i schemic disease. Reviewed, dictated and finalized at location A. IMPRESSION: 1. Moderate nonspecific cerebral white matter disease, which likely represents chronic small vessel ischemic disease.
--- NOTE | ~2023-12-30 | XR_ITS ---
EXAMINATION: XR chest 1V portable DATE: 12/31/2023 00:19 INDICATION: Chest pain. TECHNIQUE: A single frontal view of the chest was obtained. COMPARISON: Chest view 10/21/2023, chest CT 12/31/2023 FINDINGS: The patient is rotated to her right. The lung volumes are small. There are airspace opaciti es in right mid and upper lung zones and left lower lung zone, consistent with atelectasis. No pleura l effusion or pneumothorax. The heart size is normal. There are stones in left kidney. IMPRESSION: 1. Small lung volumes with bilateral atelectasis. Reviewed, dictated and finalized at location A.
--- NOTE | ~2023-12-30 | XR_ITS ---
EXAMINATION: XR chest 1V portable Exam Date/Time: 01/07/2024 16:35 CDT HISTORY: dyspnea Comparison: 12/30/2023; CT cap 12/31/2023. RESULT: Lines, tubes, and devices: None. Lungs and pleura: Rightward rotation. Low volumes with crowding. Improved aeration of the right uppe r lung and left lower lung. Left lower lung scarring. Cardiomediastinal silhouette: Stable. Other: No acute osseous or upper abdominal finding. Multiple calcifications of left upper quadrant. IMPRESSION: Improved aeration in the right upper and left lower lung. Left lower lung scarring. Reviewed, dictated and finalized at location K. IMPRESSION: Improved aeration in the right upper and left lower lung. Left lower lung scarr ing.
--- NOTE | 2023-12-30 23:15 | ECG_ITS ---
Measurements Intervals [place] Rate: 138 P: 35 ID: 145 QRS: 7 QRSD: 78 T: 65 QT: 331 QTc: 502 Interpretive Statements SINUS TACHYCARDIA WITH FREQUENT VENTRICULAR PREMATURE COMPLEXES LOW QRS VOLTAGE IN PRECORDIAL LEADS [QRS DEFLECTION < 1.0 mV IN CHEST LEADS] PROBABLE INFERIOR MYOCARDIAL INFARCTION , OLD ABNORMAL ECG COMPARED TO ECG 10/17/2023 10:42:52 NO SIGNIFICANT CHANGES Electronically Signed On 12-31-2023 12:59:46 CDT by Hima Villagran M.D.
[2023-12-30 23:16] VITALS: BP 151/92; PULSE 141; RESP 26; TEMP 37.7; O2SAT 100
[2023-12-30 23:21] VITALS: O2SAT 100
[2023-12-30 23:22] VITALS: PULSE 141
[2023-12-30 23:59] VITALS: O2SAT 100
[2023-12-31] VITALS (16 sets, daily range): BP systolic 133–181; BP diastolic 86–113; PULSE 86–140; RESP 16–25; TEMP 36.2–38.8; O2SAT 97–100; BMI 24.9
--- NOTE | 2023-12-31 00:07 | PC.NURSE ---
Per EMS patient spit up Aspirin
[2023-12-31] MEDS: SODIUM CHLORIDE 0.9% IV 2,000 ML 999 ML IV CONT (01:18)
[2023-12-31 01:25] LABS: Basophils Absolute Auto 0.1 K/mm3 (0.0-0.1); Basophils Percent Auto 0.2 % (0.2-1.2); Eosinophils Absolute Auto 0.1 K/mm3 (0-0.3); Eosinophils Percent Auto 0.3 % (0-4.4); Hematocrit 37.8 % (37.0-47.0); Hemoglobin 11.9 g/dL (12.0-15.0); Immature Granulocyte Absolute 0.16 K/mm3 (0.00-0.031); Immature Granulocyte Percent A 0.8 % (0-0.5); Lymphocytes Absolute Auto 1.34 K/mm3 (0.9-3.2); Lymphocytes Percent Auto 6.5 % (18.3-44.2); Mean Corpuscular HGB Conc 31.5 g/dl (32-36); Mean Corpuscular Hemoglobin 26.7 pg (26-34); Mean Corpuscular Volume 84.9 fl (80-100); Mean Platelet Volume 10.5 fl (7.4-10.4); Monocytes Absolute Auto 0.6 K/mm3 (0.1-0.6); Monocytes Percent Auto 2.7 % (2.6-8.5); Neutrophils Absolute Auto 18.5 K/mm3 (1.3-6.7); Neutrophils Percent Auto 89.5 % (45.5-73.1); Platelet Count Result 392 k/mm3 (150-375); Red Blood Count 4.45 M/mm3 (4.2-5.4); Red Cell Distribution Width 15.5 % (11.5-14.5); White Blood Count 20.6 K/mm3 (4.5-10.0)
[2023-12-31 01:41] LABS: Alanine Aminotransferase 16 U/L (6-35); Albumin Level 3.9 g/dL (3.5-5.1); Alkaline Phosphatase 134 U/L (38-126); Anion Gap 10 mmol/L (4-12); Aspartate Amino Transferase 19 U/L (14-36); Bilirubin,Total 0.9 mg/dL (0.2-1.3); Blood Urea Nitrogen 32 mg/dL (7-17); Calcium 9.6 mg/dL (8.4-10.2); Carbon Dioxide 17 mmol/L (22-30); Chloride 116 mmol/L (98-107); Estimated CRCL calculation 40 ml/min; Estimated Glomerular Filt Rate 51; Glucose 104 mg/dL (65-110); Lipase 45 U/L (23-300); Potassium 3.3 mmol/L (3.4-5.0); Sodium 143 mmol/L (137-145)
[2023-12-31 01:50] LABS: Prothrombin Time 23.5 Seconds (11.1-14.7)
[2023-12-31 01:51] LABS: Troponin I 0.012 ng/mL (0.000-0.034)
[2023-12-31 02:07] LABS: CRP 23.9 mg/dL (<1.0)
[2023-12-31] MEDS: ACETAMINOPHEN 650 MG SUPPOSITORY RECTAL (02:27)
--- NOTE | 2023-12-31 02:30 | ECG_ITS ---
Measurements Intervals [place] Rate: 126 P: 43 CO: 144 QRS: 10 QRSD: 82 T: -14 QT: 335 QTc: 486 Interpretive Statements MOTION ARTIFACT, SUBOPTIMAL ECG QUALITY SINUS TACHYCARDIA LOW QRS VOLTAGE IN PRECORDIAL LEADS [QRS DEFLECTION < 1.0 mV IN CHEST LEADS] PROBABLE INFERIOR MYOCARDIAL INFARCTION , OF INDETERMINATE AGE [35 ms Q WAVE IN II/aVF] COMPARED TO ECG 12/30/2023 23:26:59 NO SIGNIFICANT CHANGES Electronically Signed On 12-31-2023 13:03:52 CDT by Hima Villagran M.D.
--- NOTE | 2023-12-31 02:40 | PC.NURSE ---
Attempted to straight catheter patient for urine. 3 un-successful attempts.
--- NOTE | 2023-12-31 03:05 | PC.NURSE ---
EDP Dr. Weeks attempted to place fernandez catheter. Procedure unsuccessful
[2023-12-31] MEDS: SODIUM CHLORIDE 0.9% IV 1,000 ML 999 ML IV CONT ×2 (03:11→05:03)
[2023-12-31 03:23] LABS: Troponin I < 0.012 ng/mL (0.000-0.034)
[2023-12-31 03:35] LABS: Influenza A QL RT-PCR Negative (Negative); Influenza B QL RT-PCR Negative (Negative); RSV RNA, RT-PCR Negative (Negative); SARS-CoV-2 RNA PCR Negative (Negative)
[2023-12-31 03:41] LABS: Lactic Acid Reflex < 0.5 mmol/L (0.7-2.0)
[2023-12-31] MEDS: PIPERACILLN/TAZ 3.375GM/NS50ML 3.375 GM/50 ML BAG IVPB ×3 (04:04→18:26)
[2023-12-31] MEDS: BISACODYL 10 MG SUPPOSITORY RECTAL (04:20)
[2023-12-31] MEDS: VANCOMYCIN 1,500 MG/NS 500 ML 1,500 MG/500 ML BAG 250 MG IVPB (04:59)
[2023-12-31 05:38] LABS: Appearance Urine Clear (Clear); Bacteria Urine None Seen /hpf; Bilirubin Urine Negative (Negative); Blood Urine 3+ (Negative); Color Urine Yellow (Yellow); Glucose Urine UA Negative (Negative); Ketones Urine Trace mg/dL (Negative); Leukocyte Esterase Ur 2+ LEU/UL (Negative); Nitrate Urine Negative (Negative); Non Pathogenic Casts 0-2; Protein Urine 1+ mg/dL (Negative); RBC Urine >100 /hpf (0-2); Squamous Epithelial Cell Urine None Seen /hpf (Few); Urobilinogen Urine 0.2 mg/dL (<2.0)
--- NOTE | 2023-12-31 05:42 | ED.GENADULT ---
HPI - General Adult General Chief complaint: Chest Pain Stated complaint: body pain Time Seen by Provider: 12/31/23 01:11 History of Present Illness HPI narrative: This is a 58-year-old group home patient with debility due to MS presenting for total body pain. The patient is A&O x2 which is baseline. She says that she hurts in her chest abdomen and back. She denies fevers chills shortness of breath or urinary symptoms. Patient is a poor historian. Related Data Home Medications Medication Instructions Recorded Confirmed acetaminophen 650 mg PO Q4H PRN Pain (Scale 12/17/22 07/27/23 Score 1-3) cholecalciferol (vitamin D3) 1,000 units PO DAILY 12/17/22 07/27/23 famotidine 20 mg tablet 20 mg PO BID 12/17/22 07/27/23 hydrocortisone 5 mg tablet 5 mg PO DAILY 12/17/22 07/27/23 ipratropium bromide 0.02 % 1 ml inhalation DAILY PRN 12/17/22 07/27/23 solution for inhalation Shortness Of Breath lactulose 10 gram/15 mL oral 30 ml PO BID 12/17/22 07/27/23 solution metoprolol tartrate 50 mg tablet 50 mg PO BID 12/17/22 07/27/23 ondansetron 4 mg disintegrating 4 mg translingual QID PRN Nausea 12/17/22 07/27/23 tablet And Vomiting polyethylene glycol 3350 17 g PO DAILY Constipation 12/17/22 07/27/23 potassium chloride 20 mEq oral 20 meq PO DAILY 12/17/22 07/27/23 packet trazodone 50 mg tablet 50 mg PO HS 12/17/22 07/27/23 hydrocodone 5 mg-acetaminophen 325 1 tablet PO Q6H PRN Pain 07/27/23 07/27/23 mg tablet megestrol 400 mg/10 mL (40 mg/mL) 400 mg PO BID 07/27/23 07/27/23 oral suspension multivit with minerals-iron 18 1 tablet PO DAILY 07/27/23 07/27/23 mg-folic ac 400 mcg-vit K 25 mcg tablet (Adults Multivitamin) sennosides 8.6 mg tablet (senna) 8.6 mg PO DAILY PRN Constipation 07/27/23 07/27/23 amino acids-protein hydrolysate 17 See Rx Instructions .Route .COMPLEX 10/17/23 10/17/23 gram-100 kcal/30 mL oral liquid (Pro-Stat AWC) citalopram 20 mg tablet 20 mg PO HS 10/17/23 10/17/23 Allergies Allergy/AdvReac Type Severity Reaction Status Date / Time No Known Allergies Allergy Verified 10/18/23 08:49 PMFSH Past Medical History Medical History Acute on chronic anemia Anemia Anorexia Asthma Calculus of kidney Chronic obstructive pulmonary disease Chronic respiratory failure with hypoxia, on home oxygen therapy Previously documented that the patient is oxygen dependent on 4 L nasal cannula however she denies and is on room air with good SpO2 as of 07/27/2023. Colitis COPD (chronic obstructive pulmonary disease) Dementia Depression Essential (primary) hypertension Extended spectrum beta lactamase (ESBL) resistance Fecal impaction Functional quadriplegia secondary to MS Generalized anxiety disorder GI bleed HTN (hypertension) Hyperlipidemia LEOLA (iron deficiency anemia) Intestinal obstruction Malignant neoplasm of right kidney MRSA infection Multiple sclerosis Multiple sclerosis Overactive bladder Pulmonary embolism (2014) Retained ureteral stent Schizoaffective disorder Schizophrenia Ureteral stent present Urinary retention Urinary tract infection due to extended-spectrum beta lactamase (ESBL) producing Escherichia coli Xanthogranulomatous pyelonephritis Surgical History Surgical History History of nephrostomy History of removal of ureteral stent 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 History of tubal ligation Family History Family History Mother Family history of multiple sclerosis Hypertension Father Patient's father is Social History Social History Social History: Patient is a ramos of the [facility] [employer]. Her guardian is Abe Burnham ([phone]). Code status: Full code. Kimmy
[2023-12-31] MEDS: POTASSIUM CHLORIDE INJ 40 MEQ in SODIUM CHLORIDE 0.9% IV 500 ML 130 MEQ IVPB (05:46)
[2023-12-31 05:47] LABS: MRSA (PCR) DETECTED (NOT DETECTE)
[2023-12-31 05:56] LABS: Specific Grav Ur 1.035 (1.001-1.035)
[2023-12-31 05:57] LABS: Add Urine Microscopic? YES
--- NOTE | 2023-12-31 06:09 | ECG_ITS ---
Measurements Intervals [place] Rate: 124 P: 34 OK: 137 QRS: 1 QRSD: 94 T: 17 QT: 429 QTc: 617 Interpretive Statements SINUS TACHYCARDIA WITH FREQUENT VENTRICULAR PREMATURE COMPLEXES LOW QRS VOLTAGE IN PRECORDIAL LEADS [QRS DEFLECTION < 1.0 mV IN CHEST LEADS] INFERIOR MYOCARDIAL INFARCTION , PROBABLY OLD ABNORMAL ECG COMPARED TO ECG 12/31/2023 03:12:27 VENTRICULAR ECTOPIC ACTIVITY IS NOW SEEN Electronically Signed On 12-31-2023 13:07:32 CDT by Hima Villagran M.D.
[2023-12-31 06:55] LABS: Troponin I 0.029 ng/mL (0.000-0.034)
[2023-12-31] MEDS: LACTATED RINGERS 1,000 ML 125 ML IV CONT ×2 (07:21→15:25)
--- NOTE | 2023-12-31 07:34 | PM.IMHP ---
H&P: HPI History of Present Illness Date/Time: 12/31/23 07:34 Chief Complaint: Chest pain Narrative: Patient is a poor historian. History is taken from patient and ER physician note This is a 58-year-old [facility] patient with debility due to MS, DVT, hypertension, GERD, for to ED because of whole body ache. Patient will per [facility] from [facility] because of whole body. patient was also found have fever, tachycardia tachypnea. And patient had whole body ache, therefore patient was brought to ED for further evaluation treatment. Patient denied headache, shortness of breath. nausea vomiting or diarrhea. Upon arrival in the ED, fever 102, tachycardia tachypnea, Febrile at 102, White count 20.6, hemoglobin 11.9 Potassium 3.3.? This will be repleted via IV.BUN 32 and creatinine 1.1.? With a baseline of 0.9-1.0. Nursing staff and myself attempted multiple times to place a [place] to obtain urine but due to lower extremity contractures we were unable to visualize the urethra.? CT showed a solitary left kidney with a ureteral obstruction due to large rectal stool ball.? Possible left pyelonephritis with moderate hydroureteral nephrosis.? CT also showed full sickness decubitus ulcers with probable chronic left ischial osteomyelitis.? ER physician disimpacted the patient to relieve any obstruction due to fecal impaction.? ER physician discussed with Dr. Maza and these kidney findings may be chronic due to her MS.? Dr. Maza recommended we make her NPO as she may need a urologic intervention.? Patient received Zosyn, vancomycin and for L fluid resuscitation in the ED Review of Systems Review of Systems: ROS negative except above PMFSH Past Medical History Medical History (Updated 12/31/23 @ 08:00 by Raul Mayes MD) Acute on chronic anemia Anemia Anorexia Asthma Calculus of kidney Chronic obstructive pulmonary disease Chronic respiratory failure with hypoxia, on home oxygen therapy Previously documented that the patient is oxygen dependent on 4 L nasal cannula however she denies and is on room air with good SpO2 as of 07/27/2023. Colitis COPD (chronic obstructive pulmonary disease) Dementia Depression Essential (primary) hypertension Extended spectrum beta lactamase (ESBL) resistance Fecal impaction Functional quadriplegia secondary to MS Generalized anxiety disorder GI bleed HTN (hypertension) Hyperlipidemia LEOLA (iron deficiency anemia) Intestinal obstruction Malignant neoplasm of right kidney MRSA infection Multiple sclerosis Multiple sclerosis Overactive bladder Pulmonary embolism (2015) Pyelonephritis Retained ureteral stent Schizoaffective disorder Schizophrenia Ureteral stent present Urinary retention Urinary tract infection due to extended-spectrum beta lactamase (ESBL) producing Escherichia coli Xanthogranulomatous pyelonephritis Surgical History Surgical History History of nephrostomy History of removal of ureteral stent 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 History of tubal ligation Family History Family History Mother Family history of multiple sclerosis Hypertension Father Patient's father is Social History Social History Social History: Patient is a ramos of the [facility]. Her guardian is Abe Burnham ([phone]). Code status: Full code. Smoking packs per day: 0.5 Smoking cigarettes per day: 10.0 Years smoked: 1 Smoking pack-years: 0.50 Smoking status: Never smoker Tobacco type: cigarettes Second hand tobacco smoke exposure: No Alcohol intake: never Substance use: never Do You Feel Safe in your Home?: No Lack of Transportation: No Lack of Food: Never True Current Housing: I Have Housing Concerned About Future H
--- NOTE | 2023-12-31 07:54 | WPDURCON ---
Assessment and Plan Assessment and plan (1) Hydronephrosis: Code(s): N13.30 - Unspecified hydronephrosis Status: Acute Assessment and Plan: Solitary kidney. Previous to be chronic in nature. On previous CT scans there is suggestion that this could be vesicoureteral reflux. I think this is likely as well. Her creatinine is 1.1. If she shows any signs of deterioration, worsening renal function, sepsis, etc. we have no urologic access to her bladder. The only option would be a nephrostomy tube by Interventional Radiology (2) Functional quadriplegia secondary to MS: Code(s): G35 - Multiple sclerosis; R53.2 - Functional quadriplegia Status: Acute Assessment and Plan: Extremely contracted (3) Abnormal urinalysis: Code(s): R82.90 - Unspecified abnormal findings in urine Status: Acute Assessment and Plan: This is not a clean catch. This is likely taken from a canister. It is not a reliable predictor of infection. She should be maintained on antibiotics until her situation is figured out (4) Solitary left kidney: Status: Acute Assessment and Plan: Status post nephrectomy unknown reason (5) Calculus, kidney: Code(s): N20.0 - Calculus of kidney Status: Acute Assessment and Plan: Multiple nonobstructing left kidney stone Urology Consult Note HPI Date Seen: 12/31/23 Primary Care Provider: Luis Eduardo Quiroga, Consult Narrative Narrative: Yesenia Perez is a 58 year old female she resides in a [facility]. She has severe MS and is a functional quadriplegic. I reviewed old CT scans. She has a solitary left kidney. She has chronic mild hydronephrosis of that kidney. She was brought in for apparently abdominal pain. She cannot give me any details and is a poor historian. Her current CT scan shows a large amount of stool in the colon. It shows stable mild left hydronephrosis. She has a solitary kidney with stones. She states she is status post nephrectomy in the past. She denies fever. She denies symptoms of urinary tract infection. She denies dysuria. He denies flank pain. Again not much history can be obtained from the patient. I did obtain history from the nursing staff. There is no documentation from the emergency room physician as of yet Review of Systems Review of Systems: ROS unobtainable: Yes unobtainable due to endotracheal tube PMFSH Past Medical History Medical History (Updated 12/31/23 @ 08:00 by Raul Mayes MD) Acute on chronic anemia Anemia Anorexia Asthma Calculus of kidney Chronic obstructive pulmonary disease Chronic respiratory failure with hypoxia, on home oxygen therapy Previously documented that the patient is oxygen dependent on 4 L nasal cannula however she denies and is on room air with good SpO2 as of 07/27/2023. Colitis COPD (chronic obstructive pulmonary disease) Dementia Depression Essential (primary) hypertension Extended spectrum beta lactamase (ESBL) resistance Fecal impaction Functional quadriplegia secondary to MS Generalized anxiety disorder GI bleed HTN (hypertension) Hyperlipidemia LEOLA (iron deficiency anemia) Intestinal obstruction Malignant neoplasm of right kidney MRSA infection Multiple sclerosis Multiple sclerosis Overactive bladder Pulmonary embolism (2014) Pyelonephritis Retained ureteral stent Schizoaffective disorder Schizophrenia Ureteral stent present Urinary retention Urinary tract infection due to extended-spectrum beta lactamase (ESBL) producing Escherichia coli Xanthogranulomatous pyelonephritis Surgical History Surgical History History of nephrostomy History of removal of ureteral stent 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 History of tubal ligation Family History Family History (Reviewed 12/31/23 @ 05:43 by Jonathan Louis
--- NOTE | 2023-12-31 12:06 | ADMIMU ---
This patient, Yesenia Perez, was admitted to IMU status, and placed in IMU Room 207-01. Patient/family oriented to hospital policies and general routines including ID bracelet, bed and alarms, visiting hours, pain management, procedures, bathroom and other care routines, personal items, smoking policy, room service/diet, and visiting hours. Valuables list has been completed. Information on how to activate the Rapid Response Team has been discussed. Patient/Family are encouraged to report perceived risks to care and to ask questions if they do not understand what they are told or what they should do.
[2023-12-31] MEDS: FAMOTIDINE 20 MG TABLET PO (18:26)
[2023-12-31] MEDS: traZODone HCL 50 MG TABLET PO (20:48)
[2023-12-31] MEDS: METOPROLOL TARTRATE 50 MG TAB PO (20:48)
[2023-12-31] MEDS: CITALOPRAM HYDROBROMIDE 20 MG TABLET PO (20:49)
[2023-12-31] MEDS: SOD HYPOCHLORITE 1/4 STRENGTH 473 ML 1 APPLIC TOPICAL (20:50)
[2023-12-31] MEDS: HYDROcodone/acetaminophen (*CRX) 5-325 MG TABLET 1 TAB PO (20:54)
[2024-01-01] VITALS (13 sets, daily range): BP systolic 126–153; BP diastolic 82–88; PULSE 79–101; RESP 18–24; TEMP 35.9–37.3; O2SAT 95–100; BMI 24.9
[2024-01-01] MEDS: PIPERACILLN/TAZ 3.375GM/NS50ML 3.375 GM/50 ML BAG IVPB ×2 (00:25→06:20)
[2024-01-01] MEDS: LACTATED RINGERS 1,000 ML 125 ML IV CONT ×2 (03:02→19:13)
[2024-01-01] MEDS: VANCOMYCIN 1,000 MG/NS 250 ML 1,000 MG/250 ML BAG 250 MG IVPB (05:07)
--- NOTE | 2024-01-01 10:20 | PM.IMPN ---
Progress Note: A&P Assessment and Plan (1) Multiple sclerosis: Code(s): G35 - Multiple sclerosis Status: Acute (2) Sepsis: Code(s): A41.9 - Sepsis, unspecified organism Status: Acute (3) Hydronephrosis: Code(s): N13.30 - Unspecified hydronephrosis Status: Acute (4) Fecal impaction: Code(s): K56.41 - Fecal impaction Status: Acute (5) Essential (primary) hypertension: Code(s): I10 - Essential (primary) hypertension Status: Acute (6) Functional quadriplegia secondary to MS: Code(s): G35 - Multiple sclerosis; R53.2 - Functional quadriplegia Status: Acute (7) Dementia: Code(s): F03.90 - Unspecified dementia, unspecified severity, without behavioral disturbance, psychotic disturbance, mood disturbance, and anxiety Status: Acute (8) COPD (chronic obstructive pulmonary disease): Code(s): J44.9 - Chronic obstructive pulmonary disease, unspecified Status: Acute (9) Anemia: Code(s): D64.9 - Anemia, unspecified Status: Acute Plan Sepsis Patient has a fever, leukocytosis, tachycardia tachypnea, which included 2 year of sepsis, likely resulting from pyelonephritis, decubitus ulcer Patient received fluid resuscitation in the ED, Continue normal saline IV Follow-up blood culture, urine culture, wound culture on vancomycin and Zosyn / dc zosyn and start cefepime and flaygyl, c/w vancomycin Pyelonephritis of left kidney, CT scan showed, ?There is cortical thinning of left kidney. There is an 8 mm cyst in left kidney. There are innumerable stones in left kidney measuring up to 7 mm . There is mild left hydronephrosis and hydroureter. There is urothelial thickening and enhancement in left kidney, consistent with pyelitis. Folic catheter could not be inserted because of deformity of lower extremity Antibiotics started Rest Managements per urologist / UA revealed pyuria, order UCX Decubitus ulcers involving multiple sites, including sacral, right hip, right heel, right toe possible sacral osteomyelitis CT reports there is a sacral decubitus ulcer. There are bilateral ischial decubitus ulcers. There is chronic deformity of the ischial tuberosities. Consult wound care and general surgeon for evaluation treatment Appreciate general surgery consultation Continue wound care Dehydration, hypokalemia, BUN 32, creatinine 1.1 ?With a baseline of 0.9-1.0. Continue fluid resuscitation Follow-up BMP Fecal impaction Disimpacted by ER physician, ?Dulcolax suppository MS, paralysis due to MS Chronic anemia Hemoglobin baseline No obvious bleeding Follow-up CBC History of DVT Hold Eliquis for possible surgical procedure Subjective Date/time seen: 01/01/24 10:20 Interval history: I saw exam patient today, patient feels comfortable pain is better controlled. Patient is afebrile today, blood pressure stable. Per nurse report, patient declined blood test today. Exam Narrative: GENERAL: Pleasant, in no acute distress. Well-nourished. - EYES: EOMI. Anicteric. - HENT: Moist mucous membranes. - LUNGS: Clear to auscultation bilaterally, no wheezing, rhonchi, or rales. Tachypnea - CARDIOVASCULAR: Regular rate and rhythm. No murmur. No JVD. Tachycardia - ABDOMEN: Soft, non-tender and non-distended. No palpable masses. - EXTREMITIES: No edema. Peripheral pulses 2+. Non-tender. - NEUROLOGIC: No focal neurological deficits. CN II-XII grossly intact. - PSYCHIATRIC: Awake, Alert and oriented x 3. Appropriate mood and affect. - SKIN: Unstageable sacral decubital ulcer, right heel ulcer, pressure ulcer of right hip - LYMPH: No cervical lymphadenopathy. Objective Data Vital Signs Vital Signs: Vital Signs - 24 hr 12/31/23 10:48 12/31/23 10:52 12/31/23 16:00 Temperature 98.2 F 97.5 F L 97.6 F Pulse Rate 113 H 118 H 107 H Respiratory Rate 22 H 16 18 Blood Pressure 142/106 H 154/88 H 149/8
[2024-01-01] MEDS: SOD HYPOCHLORITE 1/4 STRENGTH 473 ML 1 APPLIC TOPICAL (10:29)
--- NOTE | 2024-01-01 12:03 | PM.CNGS ---
Assessment and Plan Assessment and plan (1) Pressure ulcer: Code(s): L89.90 - Pressure ulcer of unspecified site, unspecified stage Status: Acute Assessment and Plan: Stage 3 bilateral ischial decubitus ulcers and sacral ulcer that all appear chronic in nature. They do not appear infected. There is no significant necrotic tissue that requires surgical debridement. No purulent drainage. These wounds do not appear to be the source of her sepsis. Would recommend to continue local wound care for now with Dakin's soaked gauze dressing changes. Continue with frequent turning and pressure offloading. (2) Sepsis: Code(s): A41.9 - Sepsis, unspecified organism Status: Acute Assessment and Plan: Continue broad-spectrum IV antibiotics. Her wounds appear chronic and are not actively infected. They do not appear to be causing her sepsis. Would continue to evaluate for other potential sources. (3) Pyelonephritis: Code(s): N12 - Tubulo-interstitial nephritis, not specified as acute or chronic Status: Acute (4) Fecal impaction: Code(s): K56.41 - Fecal impaction Status: Acute (5) Multiple sclerosis: Code(s): G35 - Multiple sclerosis Status: Acute (6) Contracture of muscles of both lower extremities: Code(s): M62.461 - Contracture of muscle, right lower leg; M62.462 - Contracture of muscle, left lower leg Status: Acute (7) COPD (chronic obstructive pulmonary disease): Code(s): J44.9 - Chronic obstructive pulmonary disease, unspecified Status: Acute (8) Dementia: Code(s): F03.90 - Unspecified dementia, unspecified severity, without behavioral disturbance, psychotic disturbance, mood disturbance, and anxiety Status: Acute Plan I have discussed the patient's case and plan of care with Dr. Penny. History of Present Illness Consult details Consult date: 01/01/24 Reason for consult: other (Decubitus ulcers) Requesting physician: Jonathan Weeks MD Narrative: This is a 58-year-old woman with a history of MS who is bed ridden and presented to the ER for evaluation of body aches from the shelter. The patient is a poor historian, therefore history is obtained by review of the electronic medical record. In the ER, she was febrile, tachypneic, and tachycardic. [place] [address], BUN 32, creatinine 1.1, potassium 3.3, lactic acid 0.5, CRP 23.9, troponin negative x3. UA positive with urine culture pending. CT scan of the chest abdomen and pelvis with IV contrast showed left-sided pyelitis, nonobstructing left kidney stone, stool distending the rectosigmoid, and mild left para-aortic lymphadenopathy likely reactive. CT also shows the sacral decubitus ulcer, bilateral ischial decubitus ulcers, and chronic deformities of the ischial tuberosities. She had stool disimpaction by the ER physician. She was admitted to the IMU. Urology consulted. Our service was consulted for the decubitus ulcers. Wound care was consulted and started Dakin's soaked gauze dressing changes. Review of Systems Review of Systems: ROS unobtainable: Yes unobtainable due to mental status PMFSH Past Medical History Medical History Acute on chronic anemia Anemia Anorexia Asthma Calculus of kidney Chronic obstructive pulmonary disease Chronic respiratory failure with hypoxia, on home oxygen therapy Previously documented that the patient is oxygen dependent on 4 L nasal cannula however she denies and is on room air with good SpO2 as of 07/27/2023. Colitis COPD (chronic obstructive pulmonary disease) Dementia Depression Essential (primary) hypertension Extended spectrum beta lactamase (ESBL) resistance Fecal impaction Functional quadriplegia secondary to MS Generalized anxiety disorder GI bleed HTN (hypertension) Hyperlipidemia LEOLA (iron deficiency anemia) Intestinal obstruction Maligna
--- NOTE | 2024-01-01 12:17 | PC.NURSE ---
Pt refusing to take meds and have labs drawn. Dr. León aware
[2024-01-01] MEDS: CEFEPIME 2 GM/NS 50 ML 2 GM/50 ML BAG IVPB ×2 (13:13→20:00)
[2024-01-01] MEDS: metroNIDAZOLE 500 MG/ISO 100ML 500 MG/100 ML BAG 100 MG IVPB ×2 (13:13→21:06)
--- NOTE | 2024-01-01 15:34 | WPDUROPN2 ---
Progress Note: A&P Assessment and Plan (1) Hydronephrosis: Code(s): N13.30 - Unspecified hydronephrosis Status: Acute Assessment and Plan: Hydronephrosis of solitary let kidney appears to be chronic in nature, likely due to vesicoureteral reflux. Her creatinine has been stable at 1.1. Labs not completed today due to patient refusal on numerous occasions. If she shows any signs of deterioration, worsening renal function, sepsis, etc. will likely require percutaneous nephrostomy tube as there is no internal access to her ureter. No clinical signs of infection or worsening status (2) Abnormal urinalysis: Code(s): R82.90 - Unspecified abnormal findings in urine Status: Acute Assessment and Plan: UA abnormal however clean sample not obtained and not a reliable predictor of infection. Urine culture is pending. 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 No need for acute intervention at this time Subjective Subjective Date/Time Seen: 01/01/24 15:34 Interval history: Yesenia is lying in bed. She is contracted. She is a poor historian. She complains of all over pain but not able to provide details. She specifically denies flank pain, back pain, suprapubic pain. Denies nausea or vomiting. Review of Systems Review of Systems: ROS unobtainable: Yes unobtainable due to mental status Exam Narrative: General: Awake, alert, severely contracted, no acute distress HEENT: Normocephalic, atraumatic, sclerae anicteric Respiratory: Normal respiratory effort, no accessory muscle use Abdomen: Nondistended, soft, nontender Skin: Normal coloration, warm and dry Neurologic: No focal neuro deficits noted Psychiatric: Appropriate mood and affect, judgment and insight intact Objective Data Vital Signs Vital Signs: Vital Signs - 24 hr 12/31/23 16:00 12/31/23 16:00 12/31/23 18:00 Temperature 97.6 F Pulse Rate 107 H 107 H 114 H Respiratory Rate 18 Blood Pressure 149/87 H Pulse Oximetry 99 Oxygen Delivery Fraction of Inspired Oxygen 12/31/23 20:48 12/31/23 20:00 12/31/23 20:00 Temperature 97.2 F L Pulse Rate 112 H 118 H 112 H Respiratory Rate 18 Blood Pressure 133/86 Pulse Oximetry 97 Oxygen Delivery Fraction of Inspired Oxygen 12/31/23 20:00 12/31/23 22:00 01/01/24 00:08 Temperature 97.3 F L Pulse Rate 86 81 Respiratory Rate 20 Blood Pressure 130/82 Pulse Oximetry 97 Oxygen Delivery Room Air Fraction of Inspired Oxygen 01/01/24 00:00 01/01/24 00:00 01/01/24 02:00 Temperature Pulse Rate 82 79 Respiratory Rate Blood Pressure Pulse Oximetry Oxygen Delivery Room Air Fraction of Inspired Oxygen 01/01/24 03:34 01/01/24 04:00 01/01/24 04:00 Temperature 97.2 F L Pulse Rate 92 86 Respiratory Rate 18 Blood Pressure 144/88 H Pulse Oximetry 97 Oxygen Delivery Room Air Fraction of Inspired Oxygen 01/01/24 06:00 01/01/24 08:00 01/01/24 08:32 Temperature 96.7 F L Pulse Rate 90 100 Respiratory Rate 24 H Blood Pressure 126/82 Pulse Oximetry 99 95 Oxygen Delivery Room Air Fraction of Inspired Oxygen 21 01/01/24 08:00 01/01/24 08:00 01/01/24 10:00 Temperature Pulse Rate 88 88 Respiratory Rate Blood Pressure Pulse Oximetry Oxygen Delivery Room Air Fraction of Inspired Oxygen 01/01/24 12:00 01/01/24 12:00 Temperature 99.1 F Pulse Rate 89 Respiratory Rate
--- NOTE | 2024-01-01 20:30 | PC.NURSE ---
Patient refused medication, nutrition, and wound treatment. Teaching given to patient regarding medication, nutrition and treatment. Patient alert but not oriented time, place and person. Patient states I just want to go to sleep. Patient in bed in low position with call light in reach and operable.
[2024-01-02] MEDS: CEFEPIME 2 GM/NS 50 ML 2 GM/50 ML BAG IVPB (02:10)
[2024-01-02] MEDS: LACTATED RINGERS 1,000 ML 125 ML IV CONT (02:11)
[2024-01-02] MEDS: metroNIDAZOLE 500 MG/ISO 100ML 500 MG/100 ML BAG 100 MG IVPB ×2 (04:19→16:30)
[2024-01-02 08:00] VITALS: BP 157/101; PULSE 105; RESP 28; TEMP 36.3; O2SAT 100
[2024-01-02] MEDS: VANCOMYCIN 1,000 MG/NS 250 ML 1,000 MG/250 ML BAG 250 MG IVPB (09:00)
--- NOTE | 2024-01-02 09:28 | PM.IMPN ---
Progress Note: A&P Assessment and Plan (1) Multiple sclerosis: Code(s): G35 - Multiple sclerosis Status: Acute (2) Sepsis: Code(s): A41.9 - Sepsis, unspecified organism Status: Acute (3) Hydronephrosis: Code(s): N13.30 - Unspecified hydronephrosis Status: Acute (4) Fecal impaction: Code(s): K56.41 - Fecal impaction Status: Acute (5) Essential (primary) hypertension: Code(s): I10 - Essential (primary) hypertension Status: Acute (6) Functional quadriplegia secondary to MS: Code(s): G35 - Multiple sclerosis; R53.2 - Functional quadriplegia Status: Acute (7) Dementia: Code(s): F03.90 - Unspecified dementia, unspecified severity, without behavioral disturbance, psychotic disturbance, mood disturbance, and anxiety Status: Acute (8) COPD (chronic obstructive pulmonary disease): Code(s): J44.9 - Chronic obstructive pulmonary disease, unspecified Status: Acute (9) Anemia: Code(s): D64.9 - Anemia, unspecified Status: Acute Plan Sepsis Patient has a fever, leukocytosis, tachycardia tachypnea, which included 2 year of sepsis, likely resulting from pyelonephritis, decubitus ulcer Patient received fluid resuscitation in the ED, Continue normal saline IV Follow-up blood culture no growth so far, urine culture grew enterococci, wound culture not collected on vancomycin and Zosyn /2 dc zosyn and start cefepime and flaygyl, c/w vancomycin Afebrile overnight /3: Afebrile, leukocytosis improving, continue vancomycin and Zosyn per ID pharmacist recommendation Pyelonephritis of left kidney, CT scan showed, ?There is cortical thinning of left kidney. There is an 8 mm cyst in left kidney. There are innumerable stones in left kidney measuring up to 7 mm . There is mild left hydronephrosis and hydroureter. There is urothelial thickening and enhancement in left kidney, consistent with pyelitis. Folic catheter could not be inserted because of deformity of lower extremity Antibiotics started Rest Managements per urologist 4/2 UA revealed pyuria, order UCX: Mucous gentle Decubitus ulcers involving multiple sites, including sacral, right hip, right heel, right toe possible sacral osteomyelitis CT reports there is a sacral decubitus ulcer. There are bilateral ischial decubitus ulcers. There is chronic deformity of the ischial tuberosities. Consult wound care and general surgeon for evaluation treatment Appreciate general surgery consultation Continue wound care Dehydration, hypokalemia, BUN 32, creatinine 1.1 ?With a baseline of 0.9-1.0. 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 Patient declined medications, blood drawn. Patient request to be discharged to long term against medical advice. We have reached out to patient's guardianship, they request us to provide all necessary medical treatment and medical studies Exam Narrative: GENERAL: in no acute distress. Well-nourished. - EYES: EOMI. Anicteric. - HENT: Moist mucous membranes. - LUNGS: Clear to auscultation bilaterally, no wheezing, rhonchi, or rales. - CARDIOVASCULAR: Regular rate and rhythm. No murmur. No JVD. - ABDOMEN: Soft, non-tender and non-distended. No palpable masses. - EXTREMITIES: No edema. Peripheral pulses 2+. Non-tender. - NEUROLOGIC: Quadriplegia due to MS - PSYCHIATRIC: Awake, Alert and oriented x 3. mood and affect: Irritable - SKIN: Multiple pressure ulcers on sacral region, right buttock, right heel, right foot - LYMPH: No cervical lymphadenopathy.
--- NOTE | 2024-01-02 10:52 | PC.NURSE ---
Pt refusing blood draws, PO medication and PO intake. She is oriented to person and place. She was educated on the importance of blood work and medications for her treatment. She states she understands but does not consent to us touching her. Dr. León at bedside to discuss plan of care with pt. She's still refusing care. She has a working call light within reach, bed in low position
--- NOTE | 2024-01-02 11:24 | PC.NURSE ---
Called [facility] to speak with pt's legal guardian, Abe Boyer. He was not available, so I spoke with Frank Houston. She was informed that patient is refusing care, including blood draws, medications and intake by mouth. Frank gave consent for us to draw the patient's blood against her wishes.
[2024-01-02 12:54] LABS: Basophils Percent Auto 0.3 % (0.2-1.2); Eosinophils Absolute Auto 0.2 K/mm3 (0-0.3); Eosinophils Percent Auto 1.2 % (0-4.4); Hematocrit 31.6 % (37.0-47.0); Hemoglobin 9.9 g/dL (12.0-15.0); Immature Granulocyte Absolute 0.05 K/mm3 (0.00-0.031); Immature Granulocyte Percent A 0.4 % (0-0.5); Lymphocytes Absolute Auto 1.34 K/mm3 (0.9-3.2); Lymphocytes Percent Auto 10.2 % (18.3-44.2); Mean Corpuscular HGB Conc 31.3 g/dl (32-36); Mean Corpuscular Hemoglobin 26.5 pg (26-34); Mean Corpuscular Volume 84.7 fl (80-100); Mean Platelet Volume 10.2 fl (7.4-10.4); Monocytes Absolute Auto 0.6 K/mm3 (0.1-0.6); Monocytes Percent Auto 4.6 % (2.6-8.5); Neutrophils Percent Auto 83.3 % (45.5-73.1); Platelet Count Result 377 k/mm3 (150-375); Red Blood Count 3.73 M/mm3 (4.2-5.4); Red Cell Distribution Width 15.6 % (11.5-14.5); White Blood Count 13.2 K/mm3 (4.5-10.0)
[2024-01-02 13:21] LABS: Anion Gap 14 mmol/L (4-12); Blood Urea Nitrogen 13 mg/dL (7-17); Calcium 9.1 mg/dL (8.4-10.2); Carbon Dioxide 11 mmol/L (22-30); Chloride 117 mmol/L (98-107); Estimated CRCL calculation 50 ml/min; Estimated Glomerular Filt Rate > 60; Glucose 67 mg/dL (65-110); Potassium 3.2 mmol/L (3.4-5.0); Sodium 142 mmol/L (137-145)
--- NOTE | 2024-01-02 13:40 | WPDUROPN2 ---
Progress Note: A&P Assessment and Plan (1) Hydronephrosis: Code(s): N13.30 - Unspecified hydronephrosis Status: Acute Assessment and Plan: Hydronephrosis of solitary let kidney appears to be chronic in nature, likely due to vesicoureteral reflux. Creatinine is stable, within normal limits at 0.9 today. No indication for intervention at this time as she is remaining clinically stable. If she shows any signs of deterioration, worsening renal function, sepsis, etc. will likely require percutaneous nephrostomy tube as there is no internal access to her urinary tract (2) Enterococcus UTI: Code(s): N39.0 - Urinary tract infection, site not specified; B95.2 - Enterococcus as the cause of diseases classified elsewhere Status: Acute (3) Abnormal urinalysis: Code(s): R82.90 - Unspecified abnormal findings in urine Status: Acute Assessment and Plan: UA abnormal on presentation. It is essentially impossible to ascertain whether she is having urinary symptoms. Preliminary urine culture with growth of Enterococcus. 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 No need for acute intervention at this time Subjective Subjective Date/Time Seen: 01/02/24 13:40 Interval history: Doing fair today. She is severely contracted and resting in bed. Complains of arm pain. Denies abdominal pain, flank pain, back pain. Overall poor historian and unable to provide much reliable history. She has been refusing almost all interventions and has not been eating or drinking. She states the water and the juice are ?dirty? and will not drink. Pure wick catheter in place and there is clear yellow urine in collection canister. Review of Systems Review of Systems: ROS unobtainable: Yes unobtainable due to mental status Exam Narrative: General: Awake, alert, severely contracted, no acute distress HEENT: Normocephalic, atraumatic, sclerae anicteric Respiratory: Normal respiratory effort, no accessory muscle use Abdomen: Nondistended Skin: Normal coloration, warm and dry Neurologic: No focal neuro deficits noted Psychiatric: Appropriate mood and affect, judgment and insight intact Objective Data Vital Signs Vital Signs: Vital Signs - 24 hr 01/01/24 20:19 01/01/24 20:14 01/01/24 20:00 Temperature 99.2 F Pulse Rate 99 86 101 H Respiratory Rate 20 Blood Pressure 146/88 H Pulse Oximetry 98 Oxygen Delivery 01/02/24 00:00 01/02/24 08:09 01/02/24 08:00 Temperature 97.4 F L Pulse Rate 105 H Respiratory Rate 28 H Blood Pressure 157/101 H Pulse Oximetry 100 Oxygen Delivery Room Air Room Air Intake/Output Intake/Output: Intake & Output 12/30/23 12/31/23 01/01/24 01/02/24 23:59 23:59 23:59 23:59 Intake Total 7270 1700 1250 Output Total 325 1225 600 Balance 6945 475 650 Meds/Results Medications: Active Medications Generic Name Dose Route Start Last Admin Trade Name Freq PRN Reason Stop Dose Admin Acetaminophen 650 mg 12/31/23 16:58 Acetaminophen 325 Mg Tablet BY MOUTH Q4H PRN Pain (Scale Score 1-3) Hydrocodone Bitart/Acetaminophen 1 tab 12/31/23 16:49 12/31/23 20:54 Hydrocodone/Acetaminophen (*Crx) 5-325 Mg Tablet PO 1 tab Q6H PRN Administration Pain Citalopram Hydrobromide 20 mg 12/31/23 21:00 01/01/24 20:19 Citalopram Hydrobromide 20 Mg Tablet PO
[2024-01-02 15:40] LABS: Procalcitonin 0.1 ng/mL
[2024-01-02] MEDS: CEFEPIME 2 GM/NS 50 ML BAG IVPB (17:00)
[2024-01-02] MEDS: POTASSIUM CHLORIDE INJ 40 MEQ in SODIUM CHLORIDE 0.9% IV 500 ML 130 MEQ IVPB (17:45)
[2024-01-02] MEDS: SOD HYPOCHLORITE 1/4 STRENGTH 473 ML 1 APPLIC TOPICAL ×2 (19:07→20:52)
[2024-01-02 20:00] VITALS: BP 183/109; PULSE 106; RESP 20; TEMP 36.1; O2SAT 99
[2024-01-02 20:32] LABS: Glucose Point of Care 61 mg/dl (65-105)
[2024-01-02 20:37] VITALS: PULSE 102
[2024-01-02] MEDS: DEXTROSE 50% 25 GM/50 ML SYRINGE IV PUSH (22:40)
[2024-01-03] VITALS: BP 156/106; PULSE 105; RESP 20; TEMP 36.9; O2SAT 100
[2024-01-03 01:04] LABS: Glucose Point of Care 90 mg/dl (65-105)
[2024-01-03] MEDS: metroNIDAZOLE 500 MG/ISO 100ML 500 MG/100 ML BAG 100 MG IVPB ×3 (02:15→17:36)
[2024-01-03] MEDS: LACTATED RINGERS 1,000 ML 125 ML IV CONT (05:04)
[2024-01-03] MEDS: CEFEPIME 2 GM/NS 50 ML BAG IVPB ×2 (05:05→16:55)
[2024-01-03 06:37] LABS: Glucose Point of Care 72 mg/dl (65-105)
[2024-01-03 07:58] VITALS: BP 184/104; PULSE 106; RESP 24; TEMP 36.4; O2SAT 100
[2024-01-03 08:36] LABS: Basophils Absolute Auto 0.1 K/mm3 (0.0-0.1); Basophils Percent Auto 0.5 % (0.2-1.2); Eosinophils Absolute Auto 0.2 K/mm3 (0-0.3); Eosinophils Percent Auto 1.6 % (0-4.4); Hematocrit 33.6 % (37.0-47.0); Hemoglobin 10.3 g/dL (12.0-15.0); Immature Granulocyte Absolute 0.08 K/mm3 (0.00-0.031); Immature Granulocyte Percent A 0.6 % (0-0.5); Lymphocytes Absolute Auto 1.55 K/mm3 (0.9-3.2); Lymphocytes Percent Auto 12.1 % (18.3-44.2); Mean Corpuscular HGB Conc 30.7 g/dl (32-36); Mean Corpuscular Hemoglobin 26.3 pg (26-34); Mean Corpuscular Volume 85.7 fl (80-100); Monocytes Absolute Auto 0.6 K/mm3 (0.1-0.6); Neutrophils Absolute Auto 10.3 K/mm3 (1.3-6.7); Neutrophils Percent Auto 80.2 % (45.5-73.1); Platelet Count Result 371 k/mm3 (150-375); Red Blood Count 3.92 M/mm3 (4.2-5.4); Red Cell Distribution Width 15.6 % (11.5-14.5); White Blood Count 12.9 K/mm3 (4.5-10.0)
[2024-01-03 08:45] LABS: Anion Gap 14 mmol/L (4-12); Blood Urea Nitrogen 10 mg/dL (7-17); Calcium 9.1 mg/dL (8.4-10.2); Carbon Dioxide 9 mmol/L (22-30); Chloride 118 mmol/L (98-107); Estimated CRCL calculation 50 ml/min; Estimated Glomerular Filt Rate > 60; Glucose 73 mg/dL (65-110); Potassium 3.5 mmol/L (3.4-5.0); Sodium 141 mmol/L (137-145)
--- NOTE | 2024-01-03 09:46 | WPDUROPN2 ---
Progress Note: A&P Assessment and Plan (1) Hydronephrosis: Code(s): N13.30 - Unspecified hydronephrosis Status: Acute Assessment and Plan: Hydronephrosis of solitary let kidney appears to be chronic in nature, likely due to vesicoureteral reflux. Creatinine remains stable, within normal limits at 0.9 today. No indication for intervention at this time as she is remaining clinically stable. If she shows any signs of deterioration, worsening renal function, sepsis, etc. will likely require percutaneous nephrostomy tube as there is no internal access to her urinary tract (2) Abnormal urinalysis: Code(s): R82.90 - Unspecified abnormal findings in urine Status: Acute Assessment and Plan: UA abnormal on presentation. It is essentially impossible to ascertain whether she is having urinary symptoms. Preliminary urine culture was positive but final culture upon further incubation shows mixed jenny. This is not indicative of infection and no further antibiotic therapy is needed. 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 No need for acute intervention at this time Subjective Subjective Date/Time Seen: 01/03/24 09:46 Interval history: Not able to obtain any meaningful history. Complains of fatigue. Review of Systems Review of Systems: ROS unobtainable: Yes unobtainable due to mental status Exam Narrative: General: Awake, alert, severely contracted, no acute distress HEENT: Normocephalic, atraumatic, sclerae anicteric Respiratory: Normal respiratory effort, no accessory muscle use Abdomen: Nondistended Skin: Normal coloration, warm and dry Psychiatric: Appropriate mood and affect Objective Data Vital Signs Vital Signs: Vital Signs - 24 hr 01/02/24 20:37 01/02/24 20:00 01/02/24 20:00 Temperature 97 F L Pulse Rate 102 H 106 H Respiratory Rate 20 Blood Pressure 183/109 H Pulse Oximetry 99 Oxygen Delivery Room Air 01/03/24 00:00 01/03/24 07:58 Temperature 98.4 F 97.6 F Pulse Rate 105 H 106 H Respiratory Rate 20 24 H Blood Pressure 156/106 H 184/104 H Pulse Oximetry 100 100 Oxygen Delivery Intake/Output Intake/Output: Intake & Output 12/31/23 01/01/24 01/02/24 01/03/24 23:59 23:59 23:59 23:59 Intake Total 7270 1750 2920 250 Output Total 325 1225 1300 600 Balance 6945 525 1620 -350 Meds/Results Medications: Active Medications Generic Name Dose Route Start Last Admin Trade Name Freq PRN Reason Stop Dose Admin Acetaminophen 650 mg 12/31/23 16:58 Acetaminophen 325 Mg Tablet BY MOUTH Q4H PRN Pain (Scale Score 1-3) Hydrocodone Bitart/Acetaminophen 1 tab 12/31/23 16:49 12/31/23 20:54 Hydrocodone/Acetaminophen (*Crx) 5-325 Mg Tablet PO 1 tab Q6H PRN Administration Pain Citalopram Hydrobromide 20 mg 12/31/23 21:00 01/02/24 20:37 Citalopram Hydrobromide 20 Mg Tablet PO Not Given HS MERLYN Dextrose 12.5 gm 01/02/24 20:53 01/02/24 22:40 Dextrose 50% 25 Gm/50 Ml Syringe IV PUSH 12.5 gm PRN PRN Administration Hypoglycemia Protocol Famotidine 20 mg 12/31/23 17:00 01/02/24 19:08 Famotidine 20 Mg Tablet PO Not Given BID MERLYN Glucagon 1 mg 01/02/24 20:53 Glucagon For Inj 1 Mg Vial IM PRN PRN Hypoglycemia Protocol Glucose 15 gm 01/02/24 20:53 Glucose Oral Gel 15 Gm Of Glucse In 37.5 Gm Tube PO PRN PRN Hypoglycemia Protocol Hydrocortisone 5 mg 01/01/24 09:00 01/02/24 07:52 Hydrocortison
--- NOTE | 2024-01-03 09:50 | PM.IMPN ---
Progress Note: A&P Assessment and Plan (1) Multiple sclerosis: Code(s): G35 - Multiple sclerosis Status: Acute (2) Sepsis: Code(s): A41.9 - Sepsis, unspecified organism Status: Acute (3) Hydronephrosis: Code(s): N13.30 - Unspecified hydronephrosis Status: Acute (4) Fecal impaction: Code(s): K56.41 - Fecal impaction Status: Acute (5) Essential (primary) hypertension: Code(s): I10 - Essential (primary) hypertension Status: Acute (6) Functional quadriplegia secondary to MS: Code(s): G35 - Multiple sclerosis; R53.2 - Functional quadriplegia Status: Acute (7) Dementia: Code(s): F03.90 - Unspecified dementia, unspecified severity, without behavioral disturbance, psychotic disturbance, mood disturbance, and anxiety Status: Acute (8) COPD (chronic obstructive pulmonary disease): Code(s): J44.9 - Chronic obstructive pulmonary disease, unspecified Status: Acute (9) Anemia: Code(s): D64.9 - Anemia, unspecified Status: Acute Plan Sepsis Patient has a fever, leukocytosis, tachycardia tachypnea, which included 2 year of sepsis, likely resulting from pyelonephritis, decubitus ulcer Patient received fluid resuscitation in the ED, Continue normal saline IV Follow-up blood culture no growth so far, urine culture grew enterococci, wound culture not collected on vancomycin and Zosyn 12/31 dc zosyn and start cefepime and flaygyl, c/w vancomycin Afebrile overnight 01/01: Afebrile, leukocytosis improving, continue vancomycin and Zosyn per ID pharmacist recommendation 01/02: resume vanco cefepime and Flagyl, leukocytosis is trending down, patient is afebrile, Pyelonephritis of left kidney, CT scan showed, ?There is cortical thinning of left kidney. There is an 8 mm cyst in left kidney. There are innumerable stones in left kidney measuring up to 7 mm . There is mild left hydronephrosis and hydroureter. There is urothelial thickening and enhancement in left kidney, consistent with pyelitis. Folic catheter could not be inserted because of deformity of lower extremity Antibiotics started Rest Managements per urologist 12/31 UA revealed pyuria, order UCX: Mixture of Gentle bacteria Decubitus ulcers involving multiple sites, including sacral, right hip, right heel, right toe possible sacral osteomyelitis CT reports there is a sacral decubitus ulcer. There are bilateral ischial decubitus ulcers. There is chronic deformity of the ischial tuberosities. Consult wound care and general surgeon for evaluation treatment Appreciate general surgery consultation Continue wound care Dehydration, hypokalemia, BUN 32, creatinine 1.1 ?With a baseline of 0.9-1.0. 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 Per nurse report, patient declined oral medications Exam Narrative: GENERAL: in no acute distress. Well-nourished. - EYES: EOMI. Anicteric. - HENT: Moist mucous membranes. - LUNGS: Clear to auscultation bilaterally, no wheezing, rhonchi, or rales. - CARDIOVASCULAR: Regular rate and rhythm. No murmur. No JVD. - ABDOMEN: Soft, non-tender and non-distended. No palpable masses. - EXTREMITIES: No edema. Peripheral pulses 2+. Non-tender. - NEUROLOGIC: Quadriplegia due to MS - PSYCHIATRIC: Awake, Alert and oriented x 3. mood and affect: Irritable - SKIN: Multiple pressure ulcers on sacral region, right buttock, right heel, right foot - LYMPH: No cervical lymphadenopathy. Objective Data Vital Signs Vital
[2024-01-03 10:14] LABS: Procalcitonin 0.1 ng/mL
[2024-01-03] MEDS: VANCOMYCIN 1,000 MG/NS 250 ML 1,000 MG/250 ML BAG 250 MG IVPB (11:45)
[2024-01-03 11:47] VITALS: BP 167/93; PULSE 110; RESP 28; TEMP 36.4; O2SAT 100
[2024-01-03] MEDS: DEXTROSE 50% 25 GM/50 ML SYRINGE IV PUSH ×2 (11:54→17:34)
[2024-01-03 12:36] LABS: Glucose Point of Care 68 mg/dl (65-105)
[2024-01-03] MEDS: SOD HYPOCHLORITE 1/4 STRENGTH 473 ML 1 APPLIC TOPICAL ×2 (16:56→21:33)
[2024-01-03 18:00] LABS: Glucose Point of Care 67 mg/dl (65-105)
[2024-01-03 18:00] LABS: Glucose Point of Care 131 mg/dl (65-105)
--- NOTE | 2024-01-03 18:35 | PC.NURSE ---
This patient, Yesenia Perez, was transferred to [[facility]] on 01/03/24 at 1820. Personal belongings sent with patient. Report given to [Tammi ]. Appropriate documentation sent with patient.
[2024-01-03 20:00] VITALS: BP 167/85; PULSE 117; RESP 26; TEMP 36.5; O2SAT 98
[2024-01-03 20:31] LABS: Glucose Point of Care 82 mg/dl (65-105)
[2024-01-03 21:14] VITALS: PULSE 96
[2024-01-03] MEDS: METOPROLOL TARTRATE 50 MG TAB PO (21:14)
[2024-01-03] MEDS: traZODone HCL 50 MG TABLET PO (21:16)
[2024-01-03] MEDS: CITALOPRAM HYDROBROMIDE 20 MG TABLET PO (21:16)
[2024-01-04] VITALS (12 sets, daily range): BP systolic 146–180; BP diastolic 86–115; PULSE 107–144; RESP 20–22; TEMP 36.3–36.9; O2SAT 98–100
--- NOTE | 2024-01-04 01:00 | PC.NURSE ---
This is nurse was informed by aide of patient refusal to turn. Education was reinforced, as patient currently has several pressure ulcers.
[2024-01-04] MEDS: metroNIDAZOLE 500 MG/ISO 100ML 500 MG/100 ML BAG 100 MG IVPB ×3 (02:56→17:33)
[2024-01-04] MEDS: CEFEPIME 2 GM/NS 50 ML BAG IVPB ×2 (05:08→17:20)
[2024-01-04 06:21] LABS: Glucose Point of Care 70 mg/dl (65-105)
[2024-01-04] MEDS: DEXTROSE 50% 25 GM/50 ML SYRINGE IV PUSH (06:39)
[2024-01-04 07:25] LABS: Glucose Point of Care 147 mg/dl (65-105)
--- NOTE | 2024-01-04 09:14 | PM.IMPN ---
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: Code(s): M62.461 - Contracture of muscle, right lower leg; M62.462 - Contracture of muscle, left lower leg Status: Acute (6) Essential (primary) hypertension: Code(s): I10 - Essential (primary) hypertension Status: Acute (7) Fecal impaction: Code(s): K56.41 - Fecal impaction Status: Acute Plan (1) Multiple sclerosis: ?Code(s): G35 - Multiple sclerosis ?Status:?Acute (2) Sepsis: ?Code(s): A41.9 - Sepsis, unspecified organism ?Status:?Acute (3) Hydronephrosis: ?Code(s): N13.30 - Unspecified hydronephrosis ?Status:?Acute (4) Fecal impaction: ?Code(s): K56.41 - Fecal impaction ?Status:?Acute (5) Essential (primary) hypertension: ?Code(s): I10 - Essential (primary) hypertension ?Status:?Acute (6) Functional quadriplegia secondary to MS: ?Code(s): G35 - Multiple sclerosis; R53.2 - Functional quadriplegia ?Status:?Acute (7) Dementia: ?Code(s): F03.90 - Unspecified dementia, unspecified severity, without behavioral disturbance, psychotic disturbance, mood disturbance, and anxiety ?Status:?Acute (8) COPD (chronic obstructive pulmonary disease): ?Code(s): J44.9 - Chronic obstructive pulmonary disease, unspecified ?Status:?Acute (9) Anemia: ?Code(s): D64.9 - Anemia, unspecified ?Status:?Acute Plan Sepsis Patient has a fever, leukocytosis, tachycardia tachypnea, which included 2 year of sepsis, likely resulting from pyelonephritis, decubitus ulcer Patient received fluid resuscitation in the ED, Continue normal saline IV Follow-up blood culture no growth so far, urine culture grew enterococci, wound culture not collected on vancomycin and Zosyn 12/31 dc zosyn and start cefepime and flaygyl, c/w vancomycin Afebrile overnight 01/01:? Afebrile, leukocytosis improving, continue vancomycin and Zosyn per ID pharmacist recommendation 01/02: resume vanco cefepime and Flagyl, leukocytosis is trending down, patient is afebrile, 01/03 c/w iv abx taday, may change to oral abx in 1-2 day, procalcitonin is trending down, chest x-ray shows small lung volumes, bilateral atelectasis Pyelonephritis of left kidney, CT scan showed, ?There is?cortical thinning of left kidney. There is an 8 mm cyst in left kidney. There are innumerable stones in left kidney measuring up to 7 mm . There is mild left hydronephrosis and hydroureter. There is urothelial thickening and enhancement in left kidney, consistent with pyelitis. Folic catheter could not be inserted because of deformity of lower extremity Antibiotics started Rest Managements per urologist 12/31 UA revealed pyuria, order UCX:? Mixture of Gentle bacteria Decubitus ulcers involving multiple sites, including sacral, right hip, right heel, right toe possible sacral osteomyelitis CT reports there is a sacral decubitus ulcer. There are bilateral ischial decubitus ulcers. There is chronic deformity of the ischial tuberosities. Consult wound care and general surgeon for evaluation treatment Appreciate general surgery consultation Continue wound care Dehydration, hypokalemia, BUN 32, creatinine 1.1??With a baseline of 0.9-1.0. 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
[2024-01-04 09:17] LABS: Basophils Absolute Auto 0.1 K/mm3 (0.0-0.1); Basophils Percent Auto 0.6 % (0.2-1.2); Eosinophils Absolute Auto 0.2 K/mm3 (0-0.3); Eosinophils Percent Auto 1.3 % (0-4.4); Hematocrit 33.2 % (37.0-47.0); Hemoglobin 10.7 g/dL (12.0-15.0); Immature Granulocyte Absolute 0.13 K/mm3 (0.00-0.031); Immature Granulocyte Percent A 0.9 % (0-0.5); Lymphocytes Absolute Auto 2.02 K/mm3 (0.9-3.2); Lymphocytes Percent Auto 14.1 % (18.3-44.2); Mean Corpuscular HGB Conc 32.2 g/dl (32-36); Mean Corpuscular Hemoglobin 26.9 pg (26-34); Mean Corpuscular Volume 83.4 fl (80-100); Mean Platelet Volume 9.9 fl (7.4-10.4); Monocytes Absolute Auto 0.8 K/mm3 (0.1-0.6); Monocytes Percent Auto 5.8 % (2.6-8.5); Neutrophils Absolute Auto 11.1 K/mm3 (1.3-6.7); Neutrophils Percent Auto 77.3 % (45.5-73.1); Platelet Count Result 411 k/mm3 (150-375); Red Blood Count 3.98 M/mm3 (4.2-5.4); Red Cell Distribution Width 15.7 % (11.5-14.5); White Blood Count 14.4 K/mm3 (4.5-10.0)
[2024-01-04 09:31] LABS: Anion Gap 9 mmol/L (4-12); Blood Urea Nitrogen 9 mg/dL (7-17); Calcium 9.1 mg/dL (8.4-10.2); Carbon Dioxide 12 mmol/L (22-30); Chloride 117 mmol/L (98-107); Estimated CRCL calculation 50 ml/min; Estimated Glomerular Filt Rate > 60; Glucose 101 mg/dL (65-110); Potassium 2.9 mmol/L (3.4-5.0); Sodium 138 mmol/L (137-145)
--- NOTE | 2024-01-04 09:48 | WPDUROPN2 ---
Progress Note: A&P Assessment and Plan (1) Hydronephrosis: Code(s): N13.30 - Unspecified hydronephrosis Status: Acute Assessment and Plan: Hydronephrosis of solitary let kidney appears to be chronic in nature, likely due to vesicoureteral reflux. Creatinine remains stable, within normal limits at 0.9 today. No indication for intervention at this time as she is remaining clinically stable. If she were to develop worsening renal function, sepsis, etc would require percutaneous nephrostomy tube as there is no internal access to her urinary tract. As renal function and clinical status has remained stable, urology will sign off at this time. Will arrange f/u in 6 months for repeat imaging. (2) Abnormal urinalysis: Code(s): R82.90 - Unspecified abnormal findings in urine Status: Acute Assessment and Plan: UA abnormal on presentation.Preliminary urine culture was positive but final culture upon further incubation shows mixed jenny. This is not indicative of infection and no further antibiotic therapy is needed. 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 No need for acute intervention at this time. Will continue to observe; f/u in 6 months Subjective Subjective Date/Time Seen: 01/04/24 09:48 Interval history: Asleep during encounter Review of Systems Review of Systems: ROS unobtainable: Yes unobtainable due to mental status Exam Narrative: General: Asleep, severely contracted, resting comfortably HEENT: Normocephalic, atraumatic Respiratory: Normal respiratory effort, no accessory muscle use Abdomen: Nondistended Skin: Normal coloration, warm and dry Objective Data Vital Signs Vital Signs: Vital Signs - 24 hr 01/03/24 11:47 01/03/24 21:14 01/03/24 20:00 Temperature 97.6 F 97.7 F Pulse Rate 110 H 96 117 H Respiratory Rate 28 H 26 H Blood Pressure 167/93 H 167/85 H Pulse Oximetry 100 98 Oxygen Delivery 01/03/24 20:00 01/04/24 09:08 Temperature Pulse Rate Respiratory Rate Blood Pressure Pulse Oximetry Oxygen Delivery Room Air Room Air Intake/Output Intake/Output: Intake & Output 01/01/24 01/02/24 01/03/24 01/04/24 23:59 23:59 23:59 23:59 Intake Total 1750 2920 500 Output Total 1225 1300 1700 550 Balance 525 1620 -1200 -550 Meds/Results Medications: Active Medications Generic Name Dose Route Start Last Admin Trade Name Freq PRN Reason Stop Dose Admin Acetaminophen 650 mg 12/31/23 16:58 Acetaminophen 325 Mg Tablet BY MOUTH Q4H PRN Pain (Scale Score 1-3) Hydrocodone Bitart/Acetaminophen 1 tab 12/31/23 16:49 12/31/23 20:54 Hydrocodone/Acetaminophen (*Crx) 5-325 Mg Tablet PO 1 tab Q6H PRN Administration Pain Citalopram Hydrobromide 20 mg 12/31/23 21:00 01/03/24 21:16 Citalopram Hydrobromide 20 Mg Tablet PO 20 mg HS MERLYN Administration Dextrose 12.5 gm 01/02/24 20:53 01/04/24 06:39 Dextrose 50% 25 Gm/50 Ml Syringe IV PUSH 12.5 gm PRN PRN Administration Hypoglycemia Protocol Famotidine 20 mg 12/31/23 17:00 01/03/24 16:55 Famotidine 20 Mg Tablet PO Not Given BID MERLYN Glucagon 1 mg 01/02/24 20:53 Glucagon For Inj 1 Mg Vial IM PRN PRN Hypoglycemia Protocol Glucose 15 gm 01/02/24 20:53 Glucose Oral Gel 15 Gm Of Glucse In 37.5 Gm Tube PO PRN PRN Hypoglycemia Protocol Hydrocortisone 5 mg 01/01/24 09:00 01/03/24 10:35 Hydrocortisone 5 Mg Tablet PO Not Given DAILY
[2024-01-04 09:49] LABS: Procalcitonin 0.1 ng/mL
[2024-01-04] MEDS: BISACODYL 10 MG SUPPOSITORY RECTAL (11:34)
[2024-01-04] MEDS: hydrALAZINE HCL 20 MG/ML VIAL 10 MG IV PUSH ×3 (11:35→19:50)
[2024-01-04] MEDS: POTASSIUM CHLORIDE INJ 40 MEQ in SODIUM CHLORIDE 0.9% IV 500 ML 130 MEQ IVPB (11:48)
[2024-01-04 12:28] LABS: Glucose Point of Care 85 mg/dl (65-105)
[2024-01-04] MEDS: DEXTROSE 5%/LACTATED RINGERS 1,000 ML 100 ML IV CONT (12:40)
[2024-01-04] MEDS: VANCOMYCIN 1,000 MG/NS 250 ML 1,000 MG/250 ML BAG 250 MG IVPB (12:40)
--- NOTE | 2024-01-04 13:20 | PCNFU ---
Nutrition Follow-Up Complete: Increased nutrient needs related to altered skin as evidenced by noted three stage III pressure injuries Inadequate energy intake related to NPO status as evidenced by current diet orders Goal: PO intake 75% of meals Pt current nutrition is regular diet with Ensure Compact and Maged BID. Nutrition recommendation: 1. Continue with a general/regular diet and Ensure Compact BID. 2. Maged BID. 3. Replace K+. Monitor Mg, phos. 4. Offer assistance/encouragement at meals. 5. If patient continues to not eat well and nutrition support desired, recommend TF as medically appropriate. Check BMP with Mg and phos before initiation of nutrition support and replace any low levels concurrently with the initiation of nutrition support. Recommend Jevity 1.2 @ 10mL/hr. Advance 10mL q 4-6 hours as tolerated to rate of 40mL/hr (meeting 50% of estimated needs). Plan to increase TF on follow-up. Consider thiamine supplementation on follow-up. Last recorded weight is 62 kg. Weight up down 4 lbs (3%) x 3 days. Bowel Motility: No BM documented since admission. Abdomen soft. Labs Reviewed: K+ 2.9 Meds Noted:Lactulose, Protonix, [place], Megace, Senna, Miralax, Flagyl Skin: Stage III pressure ulcer of right ischium, left ischium and sacrum Additional Notes: Patient looks well nourished but is limited in her ability to communicate today. Per nursing, patient has been refusing meals. Nursing wants to know when additional intervention should be implemented. Patient with poor intake x 4 days. If intake should remain poor and nutrition support is desired/appropriate, recommendations available above. NKFA. No edema, nausea, emesis per EHR. Constipation noted and patient receiving stool aids. Monitor for intake, tolerance, weight, labs, skin. Follow up in 3 days.
[2024-01-04] MEDS: SOD HYPOCHLORITE 1/4 STRENGTH 473 ML 1 APPLIC TOPICAL (14:52)
--- NOTE | 2024-01-04 16:11 | PC.NURSE ---
Message left to guardian, Abe Burnham, in regards to patient refusing oral medications and meals at 1110 01/04/24. I left my number for a call back and have not received a call back.
[2024-01-04] MEDS: METOPROLOL TARTRATE INJ 5 MG/5 ML VIAL IV PUSH (17:19)
[2024-01-04 18:12] LABS: Glucose Point of Care 90 mg/dl (65-105)
[2024-01-05] VITALS (9 sets, daily range): BP systolic 115–162; BP diastolic 72–105; PULSE 90–121; RESP 20; TEMP 36.2–37; O2SAT 98–99
[2024-01-05] MEDS: METOPROLOL TARTRATE INJ 5 MG/5 ML VIAL IV PUSH ×5 (00:01→23:56)
[2024-01-05] MEDS: DEXTROSE 5%/LACTATED RINGERS 1,000 ML 100 ML IV CONT ×2 (00:02→12:44)
[2024-01-05 00:07] LABS: Glucose Point of Care 150 mg/dl (65-105)
[2024-01-05] MEDS: metroNIDAZOLE 500 MG/ISO 100ML 500 MG/100 ML BAG 100 MG IVPB ×3 (01:58→18:14)
[2024-01-05] MEDS: SOD HYPOCHLORITE 1/4 STRENGTH 473 ML 1 APPLIC TOPICAL ×2 (05:07→18:14)
[2024-01-05] MEDS: CEFEPIME 2 GM/NS 50 ML BAG IVPB ×2 (05:07→17:28)
[2024-01-05 05:35] LABS: Glucose Point of Care 139 mg/dl (65-105)
[2024-01-05 06:28] LABS: Estimated CRCL calculation 56 ml/min; Estimated Glomerular Filt Rate > 60
[2024-01-05] MEDS: VANCOMYCIN 1,000 MG/NS 250 ML 1,000 MG/250 ML BAG 250 MG IVPB (08:47)
[2024-01-05 09:09] LABS: Hematocrit 37.5 % (37.0-47.0); Hemoglobin 11.8 g/dL (12.0-15.0); Mean Corpuscular HGB Conc 31.5 g/dl (32-36); Mean Corpuscular Volume 82.8 fl (80-100); Mean Platelet Volume 10.6 fl (7.4-10.4); Platelet Count Result 513 k/mm3 (150-375); Red Blood Count 4.53 M/mm3 (4.2-5.4); Red Cell Distribution Width 15.9 % (11.5-14.5); White Blood Count 17.6 K/mm3 (4.5-10.0)
[2024-01-05 09:30] LABS: Magnesium 1.6 mg/dL (1.6-2.3)
[2024-01-05 09:41] LABS: Anion Gap 8 mmol/L (4-12); Blood Urea Nitrogen 8 mg/dL (7-17); Calcium 9.5 mg/dL (8.4-10.2); Carbon Dioxide 15 mmol/L (22-30); Chloride 119 mmol/L (98-107); Estimated CRCL calculation 63 ml/min; Estimated Glomerular Filt Rate > 60; Glucose 133 mg/dL (65-110); Potassium 3.1 mmol/L (3.4-5.0); Sodium 142 mmol/L (137-145)
[2024-01-05 12:14] LABS: Glucose Point of Care 109 mg/dl (65-105)
--- NOTE | 2024-01-05 15:53 | PM.IMPN ---
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 Anxious. Fearful. Leave me alone. Refusing to eat or drink. Review of Systems Review of Systems: ROS unobtainable: Yes unobtainable due to mental status Exam Narrative: Alert. Oriented to person. Not cooperative with remainder of exam. Neck without JVD. Chest CTA, NL effort. Heart NL S1,2, RR, no audible murmur. Extr no edema. MS severe flexion contractures bilateral LE's. Neuro CN symmetric to visual inspection. Objective Data Vital Signs Vital Signs: Vital Signs - 24 hr 01/04/24 16:02 01/04/24 16:45 01/04/24 16:58 Temperature 98.5 F Pulse Rate 144 H 140 H Respiratory Rate Blood Pressure 164/88 H 158/99 H Pulse Oximetry Oxygen Delivery Room Air 01/04/24 17:19 01/04/24 17:35 01/04/24 18:17 Temperature 97.7 F Pulse Rate 142 H 107 H 117 H Respiratory Rate 21 H Blood Pressure 158/105 H Pulse Oximetry 99 Oxygen Delivery 01/04/24 19:38 01/04/24 20:51 01/05/24 00:01 Temperature 97.8 F Pulse Rate 123 H 120 H 108 H Respiratory Rate 22 H Blood Pressure 175/115 H 146/86 H Pulse Oximetry 98 Oxygen Delivery 01/04/24 23:25 01/05/24 05:03 01/05/24 05:07 Temperature 98.6 F Pulse Rate 121 H 121 H Respiratory Rate 20 Blood Pressure 161/105 H Pulse Oximetry 98 98 Oxygen Delivery Room Air 01/05/24 11:31 01/05/24 11:49 01/05/24 14:16 Temperature 97.1 F L Pulse Rate 114 H 114 H 113 H Respiratory Rate 20 Blood Pressure 162/100 H 138/95 H Pulse Oximetry 99 Oxygen Delivery Intake/Output Intake/Output: Intake & Output 01/02/24 01/03/24 01/04/24 01/05/24 23:59 23:59 23:59 23:59 Intake Total 2920 750 2170 1250 Output Total 1300 1700 1250 750 Balance 1620 -950 920 500 Meds/Results Medications: Active Medications Generic Name Dose Route Start Last Admin Trade Name Freq PRN Reason Stop Dose Admin Acetaminophen 650 mg 12/31/23 16:58 Acetaminophen 325 Mg Tablet BY MOUTH Q4H PRN Pain (Scale Score 1-3) Hydrocodone Bitart/Acetaminophen 1 tab 12/31/23 16:49 12/31/23 20:54 Hydrocodone/Acetaminophen (*Crx) 5-325 Mg Tablet PO 1 tab Q6H PRN Administration Pain Citalopram Hydrobromide 20 mg 12/31/23 21:00 01/04/24 20:40 Citalopram Hydrobromide 20 Mg Tablet PO Not Given HS MERLYN Dextrose 12.5 gm 01/02/24 20:53 01/04/24 06:39 Dextrose 50% 25 Gm/50 Ml Syringe IV PUSH 12.5 gm PRN PRN Administration Hypoglycemia Protocol Famotidine 20 mg 12/31/23 17:00 01/05/24 13:27 Famotidine 20 Mg Tablet PO Not Given BID MERLYN Glucagon 1 mg 01/02/24 20:53 Glucagon For Inj 1 Mg Vial IM PRN PRN Hypoglycemia Protocol Glucose 15 gm 01/02/24 20:53 Glucose Oral Gel 15 Gm Of Gluc
[2024-01-05] MEDS: MAGNESIUM SULF 1 GM/D5W 100 ML 1 GM/100 ML BAG IVPB (16:17)
[2024-01-05] MEDS: MEGESTROL ACETATE (*CHEMO) ORAL SUSP 40 MG/ML SYR 400 MG PO (17:40)
[2024-01-05 18:34] LABS: Glucose Point of Care 122 mg/dl (65-105)
[2024-01-05] MEDS: POTASSIUM CHLORIDE INJ 40 MEQ in SODIUM CHLORIDE 0.9% IV 500 ML 100 MEQ IVPB (21:27)
[2024-01-06] VITALS (7 sets, daily range): BP systolic 137–149; BP diastolic 64–89; PULSE 65–110; RESP 16–18; TEMP 36.3; O2SAT 99–100
[2024-01-06 00:01] LABS: Glucose Point of Care 117 mg/dl (65-105)
[2024-01-06] MEDS: metroNIDAZOLE 500 MG/ISO 100ML 500 MG/100 ML BAG 100 MG IVPB ×3 (02:34→18:16)
[2024-01-06] MEDS: DEXTROSE 5%/LACTATED RINGERS 1,000 ML 100 ML IV CONT ×2 (03:39→14:40)
[2024-01-06] MEDS: METOPROLOL TARTRATE INJ 5 MG/5 ML VIAL IV PUSH ×4 (05:19→23:21)
[2024-01-06] MEDS: CEFEPIME 2 GM/NS 50 ML BAG IVPB ×2 (05:20→17:09)
[2024-01-06 05:26] LABS: Glucose Point of Care 105 mg/dl (65-105)
[2024-01-06] MEDS: SOD HYPOCHLORITE 1/4 STRENGTH 473 ML 1 APPLIC TOPICAL ×2 (05:45→18:17)
[2024-01-06 08:29] LABS: Hematocrit 31.4 % (37.0-47.0); Hemoglobin 10.3 g/dL (12.0-15.0); Mean Corpuscular HGB Conc 32.8 g/dl (32-36); Mean Corpuscular Hemoglobin 26.5 pg (26-34); Mean Corpuscular Volume 80.7 fl (80-100); Mean Platelet Volume 10.3 fl (7.4-10.4); Platelet Count Result 457 k/mm3 (150-375); Red Blood Count 3.89 M/mm3 (4.2-5.4); Red Cell Distribution Width 16.5 % (11.5-14.5); White Blood Count 16.3 K/mm3 (4.5-10.0)
[2024-01-06 08:36] LABS: Anion Gap 6 mmol/L (4-12); Blood Urea Nitrogen 7 mg/dL (7-17); Calcium 9.1 mg/dL (8.4-10.2); Carbon Dioxide 16 mmol/L (22-30); Chloride 120 mmol/L (98-107); Estimated CRCL calculation 56 ml/min; Estimated Glomerular Filt Rate > 60; Glucose 123 mg/dL (65-110); Sodium 142 mmol/L (137-145)
[2024-01-06 09:13] LABS: Vancomycin Trough 26.2 ug/mL (10.0-20.0)
[2024-01-06 12:54] LABS: Glucose Point of Care 111 mg/dl (65-105)
--- NOTE | 2024-01-06 14:58 | PM.IMPN ---
Progress Note: A&P Assessment and Plan (1) Sepsis: Code(s): A41.9 - Sepsis, unspecified organism Status: Acute Assessment and Plan: Urine C/s negative (although CT suggested pyelitis), CXR unremarkable, Blood C/s negative Suspected source is wounds Continue wound care Continue IV Vanc, Cefepime, Metronidazole for at least one week (started 4 PM) Monitor WBC: 01/04 17.6, 01/05 16.3 (2) Multiple sclerosis: Code(s): G35 - Multiple sclerosis Status: Acute Assessment and Plan: Unable to care for herself (3) Contracture of muscles of both lower extremities: Code(s): M62.461 - Contracture of muscle, right lower leg; M62.462 - Contracture of muscle, left lower leg Status: Acute Assessment and Plan: Due to MS (4) Essential (primary) hypertension: Code(s): I10 - Essential (primary) hypertension Status: Acute Assessment and Plan: Control adequate (5) Functional quadriplegia secondary to MS: Code(s): G35 - Multiple sclerosis; R53.2 - Functional quadriplegia Status: Acute Assessment and Plan: Continue supportive care Subjective Date/time seen: 01/06/24 14:58 Interval history: Resistant to care. Anxious. Fearful. Drank on bottle of Ensure and ate one chocolate chip cookie last PM, otherwise refused nutrition. Review of Systems Review of Systems: ROS unobtainable: Yes unobtainable due to mental status Exam Narrative: Alert. Oriented to person. She declined the remainder of the physical exam. Objective Data Vital Signs Vital Signs: Vital Signs - 24 hr 01/05/24 17:44 01/05/24 20:04 01/05/24 20:00 Temperature 97.4 F L Pulse Rate 110 H 106 H Respiratory Rate 20 Blood Pressure 115/72 Pulse Oximetry 99 Oxygen Delivery Room Air 01/05/24 23:56 01/06/24 05:17 01/06/24 05:19 Temperature 97.4 F L Pulse Rate 90 110 H 110 H Respiratory Rate 18 Blood Pressure 137/81 Pulse Oximetry 99 Oxygen Delivery 01/06/24 12:37 01/06/24 14:00 Temperature 97.3 F L Pulse Rate 65 102 H Respiratory Rate 18 Blood Pressure 149/64 H Pulse Oximetry 100 Oxygen Delivery Intake/Output Intake/Output: Intake & Output 01/03/24 01/04/24 01/05/24 01/06/24 23:59 23:59 23:59 23:59 Intake Total 750 2170 2476.7 1770 Output Total 1700 1250 1150 700 Balance -265 789 0383.7 1070 Meds/Results Medications: Active Medications Generic Name Dose Route Start Last Admin Trade Name Freq PRN Reason Stop Dose Admin Acetaminophen 650 mg 12/31/23 16:58 Acetaminophen 325 Mg Tablet BY MOUTH Q4H PRN Pain (Scale Score 1-3) Hydrocodone Bitart/Acetaminophen 1 tab 12/31/23 16:49 12/31/23 20:54 Hydrocodone/Acetaminophen (*Crx) 5-325 Mg Tablet PO 1 tab Q6H PRN Administration Pain Apixaban 5 mg 01/05/24 21:00 01/06/24 12:13 Apixaban 5 Mg Tablet PO Not Given Q12HR MERLYN Citalopram Hydrobromide 20 mg 12/31/23 21:00 01/05/24 20:57 Citalopram Hydrobromide 20 Mg Tablet PO Not Given HS MERLYN Dextrose 12.5 gm 01/02/24 20:53 01/04/24 06:39 Dextrose 50% 25 Gm/50 Ml Syringe IV PUSH 12.5 gm PRN PRN Administration Hypoglycemia Protocol Famotidine 20 mg 12/31/23 17:00 01/06/24 12:13 Famotidine 20 Mg Tablet PO Not Given BID MERLYN Glucagon 1 mg 01/02/24 20:53 Glucagon For Inj 1 Mg Vial IM PRN PRN Hypoglycemia Protocol Glucose 15 gm 01/02/24 20:53 Glucose Oral Gel 15 Gm Of Glucse In 37.5 Gm Tube PO PRN PRN Hypoglycemia Protocol Hydralazine HCl 10 mg 01/04/24 11:22 01/04/24 19:50 Hydralazine Hcl 20 Mg/Ml Vial IV PUSH 10 mg Q4HR PRN Administration Blood Pressure - High Hydrocortisone 5 mg 01/01/24 09:00 01/06/24 12:13 Hydrocortisone 5 Mg Tablet PO Not Given DAILY MERLYN Cefepime HCl 2 gm in 50 mls @ 100 mls/hr 01/02/24 17:00 01/06/24 05:50 Maxipime 2 Gm/Ns 50 Ml
[2024-01-06 18:45] LABS: Glucose Point of Care 97 mg/dl (65-105)
[2024-01-06] MEDS: VANCOMYCIN 1,000 MG/NS 250 ML 1,000 MG/250 ML BAG 250 MG IVPB (20:49)
[2024-01-06] MEDS: POTASSIUM CHLORIDE INJ 40 MEQ in SODIUM CHLORIDE 0.9% IV 500 ML 130 MEQ IVPB (22:38)
[2024-01-06 23:10] LABS: Glucose Point of Care 80 mg/dl (65-105)
[2024-01-07] VITALS (8 sets, daily range): BP systolic 145–151; BP diastolic 65–91; PULSE 56–100; RESP 16–18; TEMP 36.1–36.6; O2SAT 99–100
[2024-01-07] MEDS: metroNIDAZOLE 500 MG/ISO 100ML 500 MG/100 ML BAG 100 MG IVPB ×3 (02:39→17:46)
[2024-01-07] MEDS: DEXTROSE 5%/LACTATED RINGERS 1,000 ML 100 ML IV CONT ×2 (03:58→16:19)
[2024-01-07] MEDS: CEFEPIME 2 GM/NS 50 ML BAG IVPB ×2 (04:02→16:20)
[2024-01-07 05:13] LABS: Glucose Point of Care 91 mg/dl (65-105)
[2024-01-07] MEDS: METOPROLOL TARTRATE INJ 5 MG/5 ML VIAL IV PUSH ×4 (05:15→23:10)
[2024-01-07] MEDS: SOD HYPOCHLORITE 1/4 STRENGTH 473 ML 1 APPLIC TOPICAL (05:16)
[2024-01-07 05:49] LABS: Hematocrit 32.4 % (37.0-47.0); Hemoglobin 10.2 g/dL (12.0-15.0); Mean Corpuscular HGB Conc 31.5 g/dl (32-36); Mean Corpuscular Volume 82.4 fl (80-100); Mean Platelet Volume 10.9 fl (7.4-10.4); Platelet Count Result 442 k/mm3 (150-375); Red Blood Count 3.93 M/mm3 (4.2-5.4); Red Cell Distribution Width 16.6 % (11.5-14.5); White Blood Count 12.5 K/mm3 (4.5-10.0)
[2024-01-07 06:11] LABS: Anion Gap 7 mmol/L (4-12); Blood Urea Nitrogen 6 mg/dL (7-17); Calcium 8.8 mg/dL (8.4-10.2); Carbon Dioxide 16 mmol/L (22-30); Chloride 118 mmol/L (98-107); Estimated CRCL calculation 63 ml/min; Estimated Glomerular Filt Rate > 60; Glucose 100 mg/dL (65-110); Potassium 3.6 mmol/L (3.4-5.0); Sodium 141 mmol/L (137-145)
--- NOTE | 2024-01-07 09:19 | PC.NURSE ---
Senior Accounts Payable Clerk spoke with guardian, Abe Burnham by phone regarding patients non compliance with medications and refusal of food and care. Mr Burnham requested a psych evaluation. Senior Accounts Payable Clerk notified hospitalist during am rounding.
[2024-01-07 12:36] LABS: Glucose Point of Care 107 mg/dl (65-105)
--- NOTE | 2024-01-07 14:13 | PCNFU ---
Nutrition Follow-Up Complete: Increased nutrient needs related to altered skin as evidenced by noted three stage III pressure injuries Inadequate energy intake related to NPO status as evidenced by current diet orders Goal: Diet order - Diet is advanced to regular PO Intake 75% of meals - Goal not being met. Pt is refusing to eat Pt current nutrition is Regular diet. Maged BID and Ensure Compact BID are ordered but patient is not drinking supplements. Nutrition recommendation: Question if patient would comply with NG or PEG tube, would likely pull it out if she allowed it to be placed at all. Possible short term PPN: Clinmix E 4.25/5 with lipids at goal rate 80 ml/h. long-term plans may include possible PEG tube or hospice consult Last recorded weight is 65.1 kg. Bowel Motility: Last BM +1 01/05/24 Labs Reviewed: Hgb 10.2, Hct 32.4, BUN 6, Glu 107 Meds Noted: LR/D5, megace Skin: Stage II pressure injuries BL ischium, sacrum. Maged is ordered but pt is refusing Additional Notes:Pt drank Ensure and had a cookie 2 days ago, otherwise refusing all PO intake. Discussed with RN. Nursing staff has been trying to get her to eat, with no success. Pt would likely pull out a tube for NG or PEG tube feeding. RN discussed with pt's state guardian who requested a psych evaluation. Psych eval pending Monitor for diet order, intake, tolerance, wt, labs, skin. Follow up in 3 days.
--- NOTE | 2024-01-07 14:33 | PCDIET ---
PPN recommendation if needed: Clinmix E 4.25/5 with lipids, goal rate 80 ml/h. 1153 kcal, 82 g protein, 2170 ml total volume. Start at 40 ml/h and advance as tolerated, 10 ml q 4 hours till goal rate is reached.
--- NOTE | 2024-01-07 16:41 | PM.IMPN ---
Progress Note: A&P Assessment and Plan (1) Calculus, kidney: Code(s): N20.0 - Calculus of kidney Status: Acute (2) Leukocytosis: Code(s): D72.829 - Elevated white blood cell count, unspecified Status: Acute (3) Sepsis: Code(s): A41.9 - Sepsis, unspecified organism Status: Acute (4) Multiple sclerosis: Code(s): G35 - Multiple sclerosis Status: Acute Plan # sepsis of unknown origin - patient broad-spectrum antibiotics vancomycin, cefepime, Flagyl, will complete 1 week - no source of infection has been identified, blood cultures negative, UA negative growing mixed jenny - checking chest x-ray, patient possibly has aspiration pneumonia as there was question for not tolerating PO intake - decubitus ulcers present, surgeon to follow - during previous hospitalization she had these ulcers present but had left lower lobe pneumonia (recently in 10/2023) - on presentation she had T-max 102?, WBC 10725 - the some question for possible pyelonephritis on CT scan however UA was negative for acute infection, she was seen by Urology in consult # delirium - patient has underlying dementia - she is on Celexa for depression - patient's acute infection may be worsening her mentation, will continue supportive care and monitoring - for delirium workup ordering RPR, hepatitis panel, HIV, B12 and folic acid, vitamin-D - speech therapy consult for cognitive evaluation - UA showed mixed jenny, negative for UTI - will check CT head and chest x-ray. patient may aspiration pneumonia? did not tolerate p.o. intake and has drool - appreciate psychiatry consultation # failure to thrive - patient has poor p.o. intake, decubitus ulcers - may need to acute artificial nutrition she continues to have poor p.o. intake - [facility] requests a psychiatric evaluation before goals of care conversation - with malnutrition giving potassium supplement 20 mEq daily - patient on Megace outpatient # decubitus ulcers - appear to be chronic, unclear if source of infection - appreciate general surgery consultation # Chronic conditions - unspecified hydronephrosis left kidney a likely chronic: appreciate neurology consultation for recommendation outpatient follow-up in 6 months - left renal kidney is not obstructing, patient has solitary left kidney - multiple sclerosis, functional quadriplegia: Non mobile at baseline - likely dementia, patient is a ramos of the [facility] - unclear why patient is on Eliquis - insomnia: Trazodone will continue 50 mg q.h.s. - constipation: Senna, MiraLax, lactulose ( of note patient presented with rectal stool ball) - GERD: Protonix, Pepcid - essential hypertension: Holding metoprolol - h/o DVT on eliquis Diet: regular diet meals supplement DVT prophylaxis: on Eliquis Code status: Full code Disposition: likely back to SNF in >3 days Time Spent With Patient Time: 40 minutes Subjective Date/time seen: 01/07/24 16:41 Interval history: Patient seen and examined. patient is not cooperating with her cares over the course of the weekend. Not allowing for physical exam, poor p.o. intake. it appears she has dementia at baseline is on Megace to improve p.o. intake however she is showing signs of failure to thrive. patient still on empiric antibiotics vancomycin, cefepime Flagyl for suspected infection possible cellulitis versus pneumonia? her UA was negative. Her leukocytosis improved. Despite extended antibiotic course she is still having worsening mentation. I consulted who recommended encephalopathy delirium workup. Review of Systems Review of Systems: unable to obtain review of systems due to mental status Exam Narrative: - GENERAL: woman agitated in no obvious distress - EYES: EOMI. Anicteric. - HENT: Moist mucous membranes. - LUNGS: nonlabored respirations - CARDIOVASCULAR: unable to examine - ABDOMEN: Soft - EXTREMITIES: No edema. Peripheral pulses
[2024-01-07 17:32] LABS: Glucose Point of Care 92 mg/dl (65-105)
[2024-01-07 18:37] LABS: Appearance Urine Clear (Clear); Bacteria Urine None Seen /hpf; Bilirubin Urine Negative (Negative); Blood Urine 2+ (Negative); Color Urine Yellow (Yellow); Glucose Urine UA Negative (Negative); Ketones Urine Negative (Negative); Leukocyte Esterase Ur Negative LEU/UL (Negative); Nitrate Urine Negative (Negative); Protein Urine 1+ mg/dL (Negative); Specific Grav Ur 1.009 (1.001-1.035); Squamous Epithelial Cell Urine None Seen /hpf (Few); Urobilinogen Urine 0.2 mg/dL (<2.0); WBC Urine 0-5 /hpf (0-3)
[2024-01-07 18:41] LABS: Add Urine Microscopic? YES
[2024-01-07 19:27] LABS: Hepatitis B Surface Antigen Negative (Negative)
[2024-01-07 19:33] LABS: HAV RESULT Negative (Negative); Hepatitis B Core IgM Result Negative (Negative)
[2024-01-07 19:39] LABS: HIV 1/2 Ab P24 Ag Result Negative (Negative)
[2024-01-07 19:45] LABS: Hepatitis C Virus Antibody Negative (Negative)
[2024-01-07 20:24] LABS: Glucose Point of Care 104 mg/dl (65-105)
[2024-01-07 20:56] LABS: Folic Acid 13.4 ng/mL (2.76->20)
--- NOTE | 2024-01-07 21:01 | PC.NURSE ---
PT DID LET ME PREFORM A SHORT ASSESSMENT AND TAKE HER BLOOD SUGAR AND VITALS. PT HAS BEEN REFUSING CARE. PT HAS BEEN AGITATED AND VERBALLY ABUSIVE. PT SEEMED CONCERNED THAT I WOULD HURT HER FREQUENTLY REPEATING PLEASE DON'T HURT ME . I REASSURED THE PT I WAS NOT THERE TO HURT HER. PT SEEMS ANXIOUS AND FEARFUL. PT DID REFUSE MEDICATIONS AND CONTINUES TO REFUSE FOOD/DRINK. I OFFERED PT MULTIPLE DIFFERENT FOOD AND DRINK OPTIONS ALL OF WHICH SHE DECLINED.
--- NOTE | 2024-01-07 21:37 | WPDCNPSYCH ---
[facility] Data of Consult Date/Time: 01/07/24 21:37 Requesting Physician: Orlando Liar MD Primary Care Provider: Luis Eduardo Quiroga, Consult Narrative Narrative: CHIEF COMPLAINT/REASON FOR HOSPITALIZATION: Patient is a 58 y/o lady admitted to Medicine about seven dasy ago for pneumonia. REASON FOR PSYCHIATRIC CONSULTATION: Patient has had a change in behavior who was yelling at staff and not eating. She is eating about one Ensure per day and has Failure to Thrive. She is not cooperating with medical care. She does not allow exam and has a self care deficit. The mental status changes were thought to b new this weekend. ABBREVIATED PAST MEDICAL HISTORY: Prison Resident Huff of the [facility] Advanced Multiple Sclerosis ABBREVIATED CUSTODIAL/HOSPITAL MEDICATIONS: Triple IV antibiotics Celexa Eliquis Vitamin D [place] (5-325) po q 6 hours prn pain Trazodone prn KCl Protonix Metoprol RUBBER BELT SPLICER: Full Code (Uncertain if copy of advanced directive is attached to hard copy chart.) DIAGNOSES/PROBLEM LIST: Delirium (Possibly superimposed over a baseline dementia) Pneumonia Advanced Multiple Sclerosis Unspecified Depression based on use of Celexa Anticoagulation for Unspecified Medical Condition Vitamin D deficiency Unspecified Chronic Pain Unspecified Hypokalemia for Unspecified Medical Condition Possible GERD as evidenced by Protonix use Hypertension as evidenced by Metoprol use PLAN: Around 4:00 PM, Cecily Conroy MD called me for a possible Psychiatric Consultation. Dr. Conroy reviewed the patient's chart with me. Patient is a Prison patient, is a Huff of the [facility], and is on Megace at the Prison. The patient's poor appetite is likely a long time finding as would be the cognitive findings given a Huff of the [facility]. Patient was also discovered to be anticoagulated with Eliquis for uncertain etiology which will be explored.by Primary Care. Primary Care is also recommended to consider ordering; MMSE with help of Care Coordination CMP CBC UA RPR HIV Hepatitis panel B-12 level Folic acid level Vitamin D (25-Hydroxy Vitamin D) CT or MRI of the brain Possible repeat CXR for evidence of resolving pneumonia Throughout Chart Review If in a day or two after this curbside consult and if delirium work up does not prove helpful, please consider calling Psychiatry updated report for formal Psychiatric Consultation. Discharge Plan to include continuity of care follow-up with patient's regular Prison Psychiatrist or Psychiatric Nurse Practitioner prescribing patient's Celexa and Trazodone. Dr. Conroy's detailed report called to me today is much appreciated. ON LICENSE OF [facility] Past Medical History Medical History Acute on chronic anemia Anemia Anorexia Asthma Calculus of kidney Chronic obstructive pulmonary disease Chronic respiratory failure with hypoxia, on home oxygen therapy Previously documented that the patient is oxygen dependent on 4 L nasal cannula however she denies and is on room air with good SpO2 as of 07/27/2023. Colitis COPD (chronic obstructive pulmonary disease) Dementia Depression Essential (primary) hypertension Extended spectrum beta lactamase (ESBL) resistance Fecal impaction Functional quadriplegia secondary to MS Generalized anxiety disorder GI bleed HTN (hypertension) Hyperlipidemia LEOLA (iron deficiency anemia) Intestinal obstruction Malignant neoplasm of right kidney MRSA infection Multiple sclerosis Multiple sclerosis Overactive bladder Pulmonary embolism (2014) Pyelonephritis Retained ureteral stent Schizoaffective disorder Schizophrenia Ureteral stent present Urinary retention Urinary tract infection due to extended-spectrum beta lactamase (ESBL) producing Escherichia coli Xanthogranulomatous pyelonephritis Surgical History Surgical History History of nephr
[2024-01-08] VITALS (7 sets, daily range): BP systolic 134–152; BP diastolic 71–90; PULSE 84–106; RESP 13–18; TEMP 36.4–37.1; O2SAT 95–100
[2024-01-08 00:11] LABS: Glucose Point of Care 108 mg/dl (65-105)
[2024-01-08] MEDS: metroNIDAZOLE 500 MG/ISO 100ML 500 MG/100 ML BAG 100 MG IVPB ×3 (01:56→18:09)
[2024-01-08] MEDS: DEXTROSE 5%/LACTATED RINGERS 1,000 ML 100 ML IV CONT ×2 (01:57→17:24)
[2024-01-08] MEDS: CEFEPIME 2 GM/NS 50 ML BAG IVPB ×2 (06:01→17:25)
[2024-01-08] MEDS: METOPROLOL TARTRATE INJ 5 MG/5 ML VIAL IV PUSH ×3 (06:02→17:27)
[2024-01-08 06:12] LABS: Basophils Absolute Auto 0.1 K/mm3 (0.0-0.1); Basophils Percent Auto 0.6 % (0.2-1.2); Eosinophils Absolute Auto 0.3 K/mm3 (0-0.3); Eosinophils Percent Auto 3.2 % (0-4.4); Hematocrit 32.4 % (37.0-47.0); Hemoglobin 10.2 g/dL (12.0-15.0); Immature Granulocyte Absolute 0.14 K/mm3 (0.00-0.031); Immature Granulocyte Percent A 1.4 % (0-0.5); Lymphocytes Absolute Auto 3.31 K/mm3 (0.9-3.2); Lymphocytes Percent Auto 32.3 % (18.3-44.2); Mean Corpuscular HGB Conc 31.5 g/dl (32-36); Mean Corpuscular Hemoglobin 26.2 pg (26-34); Mean Corpuscular Volume 83.1 fl (80-100); Mean Platelet Volume 10.7 fl (7.4-10.4); Monocytes Absolute Auto 0.8 K/mm3 (0.1-0.6); Monocytes Percent Auto 7.6 % (2.6-8.5); Neutrophils Absolute Auto 5.6 K/mm3 (1.3-6.7); Neutrophils Percent Auto 54.9 % (45.5-73.1); Platelet Count Result 400 k/mm3 (150-375); Red Cell Distribution Width 17.1 % (11.5-14.5); White Blood Count 10.3 K/mm3 (4.5-10.0)
[2024-01-08 06:30] LABS: Alanine Aminotransferase 10 U/L (6-35); Albumin Level 2.7 g/dL (3.5-5.1); Alkaline Phosphatase 96 U/L (38-126); Anion Gap 5 mmol/L (4-12); Aspartate Amino Transferase 13 U/L (14-36); Bilirubin,Total 0.4 mg/dL (0.2-1.3); Blood Urea Nitrogen 5 mg/dL (7-17); Calcium 8.5 mg/dL (8.4-10.2); Carbon Dioxide 20 mmol/L (22-30); Chloride 115 mmol/L (98-107); Estimated CRCL calculation 63 ml/min; Estimated Glomerular Filt Rate > 60; Glucose 100 mg/dL (65-110); Sodium 140 mmol/L (137-145)
[2024-01-08 06:30] LABS: Glucose Point of Care 107 mg/dl (65-105)
[2024-01-08] MEDS: VANCOMYCIN 1,000 MG/NS 250 ML 1,000 MG/250 ML BAG 250 MG IVPB (10:22)
[2024-01-08 12:30] LABS: Glucose Point of Care 83 mg/dl (65-105)
[2024-01-08 13:06] LABS: Rapid Plasma Reagin Non-Reactive (NonReactive)
[2024-01-08] MEDS: POTASSIUM CHLORIDE INJ 40 MEQ in SODIUM CHLORIDE 0.9% IV 500 ML 130 MEQ IVPB (13:28)
--- NOTE | 2024-01-08 16:42 | PM.IMPN ---
Progress Note: A&P Assessment and Plan (1) Calculus, kidney: Code(s): N20.0 - Calculus of kidney Status: Acute (2) Leukocytosis: Code(s): D72.829 - Elevated white blood cell count, unspecified Status: Acute (3) Multiple sclerosis: Code(s): G35 - Multiple sclerosis Status: Acute (4) Hydronephrosis: Code(s): N13.30 - Unspecified hydronephrosis Status: Acute (5) Contracture of muscles of both lower extremities: Code(s): M62.461 - Contracture of muscle, right lower leg; M62.462 - Contracture of muscle, left lower leg Status: Acute (6) Essential (primary) hypertension: Code(s): I10 - Essential (primary) hypertension Status: Acute (7) Multiple sclerosis: Code(s): G35 - Multiple sclerosis Status: Acute (8) Generalized anxiety disorder: Code(s): F41.1 - Generalized anxiety disorder Status: Acute (9) Functional quadriplegia secondary to MS: Code(s): G35 - Multiple sclerosis; R53.2 - Functional quadriplegia Status: Acute Plan # sepsis of unknown origin possible pneumonia, sepsis resolved -?patient broad-spectrum antibiotics vancomycin, cefepime, Flagyl,? will complete 1 week - no source of infection has been identified, blood cultures negative, UA negative growing mixed jenny - chest x-ray shows increased irritation the right upper and left lower lung. at first thought to be atelectasis, possible pneumonia - decubitus ulcers present, surgeon to follow. Wound appeared to be stable - during previous hospitalization she had these ulcers present but had left lower lobe pneumonia (recently in 10/2023) - on presentation she had T-max 102?,? WBC 95245. Labs and vitals are improved - the some question for possible pyelonephritis on CT scan however UA was negative for acute infection,? she was seen by Urology consult # delirium - patient has underlying dementia - Celexa for depression - patient's acute infection may be worsening her mentation, will continue supportive care and monitoring - for delirium workup ordering RPR, hepatitis panel, HIV, B12 and folic acid, vitamin-D - speech therapy consult for cognitive evaluation - UA showed mixed jenny, negative for UTI - appreciate psychiatry consultation -his she shows moderate nonspecific white matter disease likely chronic small-vessel ischemic disease # failure to thrive - patient has poor p.o. intake, decubitus ulcers - may need to acute artificial nutrition she continues to have poor p.o. intake - [facility] requests a psychiatric evaluation before goals of care conversation - with malnutrition giving potassium supplement 20 mEq daily - patient on Megace outpatient # decubitus ulcers - appear to be chronic, unclear if source of infection - appreciate general surgery consultation #? Chronic conditions - unspecified hydronephrosis left kidney a likely chronic:? appreciate neurology consultation for recommendation outpatient follow-up in 6 months - left renal kidney is not obstructing,? patient has solitary left kidney -? multiple sclerosis, functional quadriplegia: Non mobile? at baseline - likely dementia, patient is a ramos of the [facility] - unclear why patient is on Eliquis - insomnia: Trazodone will continue 50 mg q.h.s. - constipation: Senna, MiraLax, lactulose (of note patient presented with rectal stool ball) - GERD: Protonix, Pepcid - essential hypertension:? Holding metoprolol - h/o DVT on eliquis Diet:? regular diet meals supplement DVT prophylaxis:?on Eliquis Code status:?Full code Disposition: SNF in >3 days Subjective Date/time seen: 01/08/24 16:42 Interval history: Patient seen examined. She is refusing any cares. Patient did not answer any questions. Nurses report no clinical change throughout the day. Review of Systems Review of Systems: Unable to obtain due to mental status Exam Narrative: - GENERAL:? woman agitated in no obvious distress
[2024-01-08] MEDS: SOD HYPOCHLORITE 1/4 STRENGTH 473 ML 1 APPLIC TOPICAL (17:26)
[2024-01-08 19:14] LABS: Glucose Point of Care 90 mg/dl (65-105)
[2024-01-09] VITALS (8 sets, daily range): BP systolic 138–150; BP diastolic 70–94; PULSE 82–113; RESP 16–17; TEMP 36.4–37.1; O2SAT 97–99
[2024-01-09] MEDS: METOPROLOL TARTRATE INJ 5 MG/5 ML VIAL IV PUSH ×5 (00:18→23:44)
[2024-01-09] MEDS: DEXTROSE 5%/LACTATED RINGERS 1,000 ML 100 ML IV CONT ×2 (03:17→17:01)
[2024-01-09 05:33] LABS: Basophils Absolute Auto 0.1 K/mm3 (0.0-0.1); Basophils Percent Auto 0.5 % (0.2-1.2); Eosinophils Absolute Auto 0.3 K/mm3 (0-0.3); Eosinophils Percent Auto 2.4 % (0-4.4); Hematocrit 31.8 % (37.0-47.0); Immature Granulocyte Absolute 0.09 K/mm3 (0.00-0.031); Immature Granulocyte Percent A 0.8 % (0-0.5); Lymphocytes Absolute Auto 2.95 K/mm3 (0.9-3.2); Lymphocytes Percent Auto 26.2 % (18.3-44.2); Mean Corpuscular HGB Conc 31.4 g/dl (32-36); Mean Corpuscular Hemoglobin 25.6 pg (26-34); Mean Corpuscular Volume 81.3 fl (80-100); Mean Platelet Volume 10.7 fl (7.4-10.4); Monocytes Absolute Auto 0.9 K/mm3 (0.1-0.6); Monocytes Percent Auto 7.9 % (2.6-8.5); Neutrophils Percent Auto 62.2 % (45.5-73.1); Platelet Count Result 415 k/mm3 (150-375); Red Blood Count 3.91 M/mm3 (4.2-5.4); Red Cell Distribution Width 16.9 % (11.5-14.5); White Blood Count 11.2 K/mm3 (4.5-10.0)
[2024-01-09 05:44] LABS: Alanine Aminotransferase 10 U/L (6-35); Albumin Level 2.7 g/dL (3.5-5.1); Alkaline Phosphatase 105 U/L (38-126); Anion Gap 3 mmol/L (4-12); Aspartate Amino Transferase 15 U/L (14-36); Bilirubin,Total 0.5 mg/dL (0.2-1.3); Blood Urea Nitrogen 5 mg/dL (7-17); Calcium 8.4 mg/dL (8.4-10.2); Carbon Dioxide 22 mmol/L (22-30); Chloride 114 mmol/L (98-107); Estimated CRCL calculation 63 ml/min; Estimated Glomerular Filt Rate > 60; Glucose 104 mg/dL (65-110); Potassium 3.2 mmol/L (3.4-5.0); Sodium 139 mmol/L (137-145)
[2024-01-09 05:47] LABS: Glucose Point of Care 104 mg/dl (65-105)
[2024-01-09] MEDS: POTASSIUM CHLORIDE INJ 40 MEQ in SODIUM CHLORIDE 0.9% IV 500 ML 130 MEQ IVPB (08:41)
--- NOTE | 2024-01-09 08:45 | PC.NURSE ---
Pt refusing to take medication this am. Pt turning head away.
--- NOTE | 2024-01-09 10:58 | PM.IMPN ---
Progress Note: A&P Assessment and Plan (1) Calculus, kidney: Code(s): N20.0 - Calculus of kidney Status: Acute (2) Leukocytosis: Code(s): D72.829 - Elevated white blood cell count, unspecified Status: Acute (3) Multiple sclerosis: Code(s): G35 - Multiple sclerosis Status: Acute (4) Hydronephrosis: Code(s): N13.30 - Unspecified hydronephrosis Status: Acute (5) Contracture of muscles of both lower extremities: Code(s): M62.461 - Contracture of muscle, right lower leg; M62.462 - Contracture of muscle, left lower leg Status: Acute (6) Essential (primary) hypertension: Code(s): I10 - Essential (primary) hypertension Status: Acute (7) Multiple sclerosis: Code(s): G35 - Multiple sclerosis Status: Acute (8) Generalized anxiety disorder: Code(s): F41.1 - Generalized anxiety disorder Status: Acute (9) Functional quadriplegia secondary to MS: Code(s): G35 - Multiple sclerosis; R53.2 - Functional quadriplegia Status: Acute Plan # delirium - patient has underlying dementia - Celexa for depression, only psychotrophic medication - patient's acute infection may be worsening her mentation, will continue supportive care and monitoring - for delirium workup ordering RPR, hepatitis panel, HIV, B12 and folic acid, vitamin-D, all neg - speech therapy consult for cognitive evaluation- did not respond to questions - UA showed mixed jenny, negative for UTI - appreciate psychiatry consultation, will follow up today - his she shows moderate nonspecific white matter disease likely chronic small-vessel ischemic disease # failure to thrive - patient has poor p.o. intake, decubitus ulcers - may need to acute artificial nutrition she continues to have poor p.o. intake - huff of state requests a psychiatric evaluation before goals of care conversation - with malnutrition giving potassium supplement 20 mEq daily - patient on Megace outpatient - potassium 3.2 giving 40 mEq IV KCl as patient is refusing p.o. intake # sepsis of unknown origin possible PNA, resolved -?completed 1 week of broad-spectrum antibiotics vancomycin, cefepime, Flagyl - no source of infection has been identified, blood cultures negative, UA negative growing mixed jenny - ruled out pyelonephritis on CT scan however UA was negative for acute infection,? she was seen by Urology consult - chest x-ray shows increased irritation the right upper and left lower lung. at first thought to be atelectasis, possible pneumonia - decubitus ulcers present, surgeon to follow. Wound appeared to be stable - on presentation she had T-max 102?,? WBC 17036. Labs and vitals are improved # decubitus ulcers - appear to be chronic, unclear if source of infection - appreciate general surgery consultation #? Chronic conditions- patient refusing PO meds - unspecified hydronephrosis left kidney a likely chronic:? appreciate neurology consultation for recommendation outpatient follow-up in 6 months - left renal kidney is not obstructing,? patient has solitary left kidney -? multiple sclerosis, functional quadriplegia: Non mobile? at baseline - likely dementia, patient is a [place] - unclear why patient is on Eliquis - insomnia: Trazodone will continue 50 mg q.h.s. - constipation: Senna, MiraLax, lactulose (of note patient presented with rectal stool ball) - GERD: Protonix, Pepcid - essential hypertension:? Holding metoprolol - h/o DVT on eliquis Diet:? regular diet meals supplement DVT prophylaxis:?on Eliquis Code status:?Full code Disposition: likely back home to SNF in next day or 2 with recommendation for hospice Social: [place] of state Subjective Date/time seen: 01/09/24 10:58 Interval history: Patient seen today, no overnight events. patient refusing exam. She is less belligerent but still not cooperative. continuing to replete electrolytes potassium 3.2 giving KCl IV. will follow-
[2024-01-09 12:17] LABS: Glucose Point of Care 91 mg/dl (65-105)
[2024-01-09] MEDS: SOD HYPOCHLORITE 1/4 STRENGTH 473 ML 1 APPLIC TOPICAL (12:42)
[2024-01-09 17:06] LABS: Glucose Point of Care 107 mg/dl (65-105)
--- NOTE | 2024-01-09 20:54 | WPDPNPSYCH ---
Objective Data Vital Signs Vital Signs: Vital Signs - 24 hr 01/08/24 22:00 01/09/24 00:18 01/09/24 05:45 Temperature 98.7 F Pulse Rate 84 82 101 H Respiratory Rate 13 Blood Pressure 134/71 Pulse Oximetry 95 Oxygen Delivery 01/09/24 06:00 01/09/24 08:00 01/09/24 12:37 Temperature 98.1 F Pulse Rate 101 H 113 H Respiratory Rate 17 Blood Pressure 150/70 H Pulse Oximetry 97 Oxygen Delivery Room Air 01/09/24 14:00 01/09/24 17:02 01/09/24 19:51 Temperature 98.7 F Pulse Rate 93 108 H Respiratory Rate 16 Blood Pressure 141/91 H Pulse Oximetry 99 Oxygen Delivery Room Air 01/09/24 20:03 Temperature 97.6 F Pulse Rate 104 H Respiratory Rate 17 Blood Pressure 138/94 H Pulse Oximetry 98 Oxygen Delivery Intake/Output Intake/Output: Intake & Output 01/06/24 01/07/24 01/08/24 01/09/24 23:59 23:59 23:59 23:59 Intake Total 2170 3160 2363.3 2520 Output Total 1500 2600 1550 1650 Balance 670 560 813.3 870 Meds/Results Medications: Active Medications Generic Name Dose Route Start Last Admin Trade Name Freq PRN Reason Stop Dose Admin Acetaminophen 650 mg 12/31/23 16:58 Acetaminophen 325 Mg Tablet BY MOUTH Q4H PRN Pain (Scale Score 1-3) Apixaban 5 mg 01/05/24 21:00 01/09/24 20:40 Apixaban 5 Mg Tablet PO Not Given Q12HR MERLYN Citalopram Hydrobromide 40 mg 01/09/24 21:00 01/09/24 20:40 Citalopram Hydrobromide 20 Mg Tablet PO Not Given HS MERLYN Dextrose 12.5 gm 01/02/24 20:53 01/04/24 06:39 Dextrose 50% 25 Gm/50 Ml Syringe IV PUSH 12.5 gm PRN PRN Administration Hypoglycemia Protocol Famotidine 20 mg 12/31/23 17:00 01/09/24 17:03 Famotidine 20 Mg Tablet PO Not Given BID MERLYN Glucagon 1 mg 01/02/24 20:53 Glucagon For Inj 1 Mg Vial IM PRN PRN Hypoglycemia Protocol Glucose 15 gm 01/02/24 20:53 Glucose Oral Gel 15 Gm Of Glucse In 37.5 Gm Tube PO PRN PRN Hypoglycemia Protocol Hydralazine HCl 10 mg 01/04/24 11:22 01/04/24 19:50 Hydralazine Hcl 20 Mg/Ml Vial IV PUSH 10 mg Q4HR PRN Administration Blood Pressure - High Hydrocortisone 5 mg 01/01/24 09:00 01/09/24 08:41 Hydrocortisone 5 Mg Tablet PO Not Given DAILY MERLYN Dextrose 1,000 mls @ 100 mls/hr 01/02/24 20:53 Dextrose 5% 1,000 Ml IVPB PRN PRN Hypoglycemia Protocol Dextrose/Lactated Ringer's 1,000 mls @ 100 mls/hr 01/04/24 11:25 01/09/24 17:01 Dextrose 5%/Lactated Ringers IV CONT 100 mls/hr .Q10H MERLYN Administration Ipratropium [place] 0.5 mg 12/31/23 16:49 Ipratropium Br 0.02% Inh Soln 0.5 Mg/2.5 Ml Vial INHALATION DAILY PRN Shortness Of Breath Lactulose 6.3538125 gm 12/31/23 17:00 01/09/24 17:02 Lactulose 20 Gm/30 Ml Udc PO 01/30/24 16:59 Not Given BID [facility] Megestrol Acetate 400 mg 12/31/23 17:00 01/09/24 17:02 Megestrol Acetate (*Chemo) Oral Susp 40 Mg/Ml Syr PO Not Given BID MERLYN Metoprolol Tartrate 50 mg 12/31/23 21:00 01/04/24 11:44 Metoprolol Tartrate 50 Mg Tab PO Not Given Q12HR MERLYN Metoprolol Tartrate 5 mg 01/04/24 16:45 01/09/24 17:02 Metoprolol Tartrate Inj 5 Mg/5 Ml Vial IV PUSH 5 mg Q6HR MERLYN Administration Miscellaneous Information 0 each 01/09/24 00:01 01/09/24 16:59 [place] Order Requires Renewal Or It Will Automatically Discontinue XX 02/08/24 00:00 Not Given CLARIFY MERLYN Pantoprazole Sodium 40 mg 01/01/24 09:00 01/09/24 08:42 Pantoprazole 40 Mg Tablet PO Not Given QAM MERLYN Polyethylene Glycol 17 gm 01/01/24 09:00 01/09/24 08:42 Polyethylene Glycol 3350 17 Gm Powd.Pack PO Not Given QAM MERLYN Potassium Chloride 20 meq 01/01/24 09:00 01/09/24 08:44 Potassium Chloride 20 Meq Packet (For Liquid) PO Not Given DAILY MERLYN Senna 8.6 mg 12/31/23 16:49 Sennosides 8.6 Mg Tablet PO DAILY PRN Constipation Sodium Hypochlorite 1 applic
[2024-01-09 23:56] LABS: Glucose Point of Care 104 mg/dl (65-105)
[2024-01-10] MEDS: DEXTROSE 5%/LACTATED RINGERS 1,000 ML 100 ML IV CONT (03:52)
[2024-01-10] MEDS: SOD HYPOCHLORITE 1/4 STRENGTH 473 ML 1 APPLIC TOPICAL ×2 (05:31→15:02)
[2024-01-10 05:49] VITALS: BP 137/94; PULSE 112; RESP 18; TEMP 36.8; O2SAT 99
[2024-01-10 05:50] LABS: Glucose Point of Care 105 mg/dl (65-105)
[2024-01-10 06:38] LABS: Anion Gap 5 mmol/L (4-12); Blood Urea Nitrogen 5 mg/dL (7-17); Calcium 8.7 mg/dL (8.4-10.2); Carbon Dioxide 21 mmol/L (22-30); Chloride 113 mmol/L (98-107); Estimated CRCL calculation 63 ml/min; Estimated Glomerular Filt Rate > 60; Glucose 101 mg/dL (65-110); Potassium 3.5 mmol/L (3.4-5.0); Sodium 139 mmol/L (137-145)
--- NOTE | 2024-01-10 11:32 | PM.DS ---
DS: Admitting Diagnosis Discharge Date 01/10/24 Admitting Diagnosis sepsis, pyelonephritis DS: Discharge Diagnosis Discharge Diagnosis (1) Sepsis: Code(s): A41.9 - Sepsis, unspecified organism Status: Acute (2) Pneumonia: Qualifiers: Laterality: right Lung location: lower lobe of lung Pneumonia type: due to unspecified organism Qualified Code(s): J18.9 - Pneumonia, unspecified organism Code(s): J18.9 - Pneumonia, unspecified organism Status: Acute (3) Functional quadriplegia secondary to MS: Code(s): G35 - Multiple sclerosis; R53.2 - Functional quadriplegia Status: Acute (4) Multiple sclerosis: Code(s): G35 - Multiple sclerosis Status: Acute (5) Leukocytosis: Code(s): D72.829 - Elevated white blood cell count, unspecified Status: Acute (6) Multiple sclerosis: Code(s): G35 - Multiple sclerosis Status: Acute (7) Hydronephrosis: Code(s): N13.30 - Unspecified hydronephrosis Status: Acute (8) Generalized anxiety disorder: Code(s): F41.1 - Generalized anxiety disorder Status: Acute (9) Dementia: Code(s): F03.90 - Unspecified dementia, unspecified severity, without behavioral disturbance, psychotic disturbance, mood disturbance, and anxiety Status: Acute (10) Delirium: Code(s): R41.0 - Disorientation, unspecified Status: Acute Plan # delirium - patient has underlying dementia - Celexa for depression, only psychotrophic medication - patient's acute infection may be worsening her mentation, will continue supportive care and monitoring - for delirium workup ordering RPR, hepatitis panel, HIV, B12 and folic acid, vitamin-D, all neg - speech therapy consult for cognitive evaluation- did not respond to questions - UA showed mixed jenny, negative for UTI - appreciate psychiatry consultation: recs to increase celexa from 20mg to 30 or 40mg - his she shows moderate nonspecific white matter disease likely chronic small-vessel ischemic disease # failure to thrive - patient has poor p.o. intake, decubitus ulcers - may need to acute artificial nutrition she continues to have poor p.o. intake - huff of state requests a psychiatric evaluation before goals of care conversation - with malnutrition giving potassium supplement 20 mEq daily - patient on Megace outpatient # sepsis of unknown origin possible PNA, resolved -?completed 1 week of broad-spectrum antibiotics vancomycin, cefepime, Flagyl - no source of infection has been identified, blood cultures negative, UA negative growing mixed jenny - ruled out pyelonephritis on CT scan however UA was negative for acute infection,? she was seen by Urology consult - chest x-ray shows increased irritation the right upper and left lower lung.? at first thought to be atelectasis, possible pneumonia - decubitus ulcers present, surgeon to follow.? Wound appeared to be stable - on presentation she had T-max 102?,? WBC 36074.? Labs and vitals are improved # decubitus ulcers - appear to be chronic, unclear if source of infection - appreciate general surgery consultation #? Chronic conditions- patient refusing PO meds - unspecified hydronephrosis left kidney a likely chronic:? appreciate neurology consultation for recommendation outpatient follow-up in 6 months - left renal kidney is not obstructing,? patient has solitary left kidney -? multiple sclerosis, functional quadriplegia: Non mobile? at baseline - likely dementia, patient is [place] - unclear why patient is on Eliquis - insomnia: Trazodone will continue 50 mg q.h.s. - constipation: Senna, MiraLax, lactulose (of note patient presented with rectal stool ball) - GERD: Protonix, Pepcid - essential hypertension:? Holding metoprolol - h/o DVT on eliquis Diet:? regular diet meals supplement DVT prophylaxis:?on Eliquis Code status:?Full code Disposition: back to [facility] Social:?[place] DS: [place]
[2024-01-10 12:01] LABS: Glucose Point of Care 88 mg/dl (65-105)
[2024-01-10 13:14] LABS: SARS-CoV-2 RNA PCR Negative (Negative)
[2024-01-10 14:00] VITALS: BP 129/76; RESP 18; TEMP 36.2; O2SAT 100
[2024-01-12 15:37] LABS: Vitamin D 1,25 (OH)2 Total <8 pg/mL (18-72); Vitamin D2 1,25 (OH)2 <8 pg/mL; Vitamin D3 1,25 (OH)2 <8 pg/mL
== END 2024-01-10 15:55 | DRG 871 ==
LOC: ANHED 12-31 06:02 → ANHIMU 12-31 10:46 → ANH3MED 01-03 18:48
PROVIDERS: Hospitalist; Internal Medicine; Admitting Provider Internal Medicine; Emergency Provider Emergency Medicine; PCP Internal Medicine; Visit Provider Student in an Organized Health Care Education/Training Program
DX: A41.9 Sepsis, unspecified organism (principal); J18.9 Pneumonia, unspecified organism; L89.154 Pressure ulcer of sacral region, stage 4; R53.2 Functional quadriplegia; N13.30 Unspecified hydronephrosis; E46 Unspecified protein-calorie malnutrition; J44.0 Chronic obstructive pulmonary disease with (acute) lower respiratory infection; J96.11 Chronic respiratory failure with hypoxia; G35 Multiple sclerosis; D72.829 Elevated white blood cell count, unspecified; F41.1 Generalized anxiety disorder; F03.90 Unspecified dementia, unspecified severity, without behavioral disturbance, psychotic disturbance, mood disturbance, and anxiety; N20.0 Calculus of kidney; R41.0 Disorientation, unspecified; F32.A Depression, unspecified; R62.7 Adult failure to thrive; K59.00 Constipation, unspecified; D64.9 Anemia, unspecified; E78.5 Hyperlipidemia, unspecified; K21.9 Gastro-esophageal reflux disease without esophagitis; F25.9 Schizoaffective disorder, unspecified; I10 Essential (primary) hypertension; Z68.24 Body mass index [BMI] 24.0-24.9, adult; Z86.718 Personal history of other venous thrombosis and embolism; Z99.81 Dependence on supplemental oxygen; Z85.528 Personal history of other malignant neoplasm of kidney; Z90.5 Acquired absence of kidney; E87.6 Hypokalemia; E86.0 Dehydration
CPT/HCPCS: 36415; 70450; 71045; 71260; 74177; 80048; 80053; 80074; 80202; 81001; 82565; 82607; 82652; 82746; 82948; 83605; 83690; 83735; 84145; 84484; 85025; 85027; 85610; 85730; 86140; 86592; 86703; 87040; 87086; 87088; 87635; 87637; 87641; 93005; 96125; 96361; 96365; 99285; A9270; G0432; J0360; J0692; J1836; J2543; J3370; J3475; J3480; J7030; J7040; J7120; J7121; Q9967

== ENCOUNTER 2024-01-17 15:17 | Inpatient (IN) | payer MEDICARE, MEDICAID, SELFPAY ==
[2024-01-17] VITALS (29 sets, daily range): BP systolic 138–181; BP diastolic 99–123; PULSE 124–138; RESP 15–28; TEMP 36.5–37.7; O2SAT 82–100; BMI 22.1
--- NOTE | ~2024-01-17 | XR_ITS ---
EXAMINATION: XR chest 1V portable DATE: 01/17/2024 17:38 INDICATION: Sepsis. TECHNIQUE: A single frontal view of the chest was obtained. COMPARISON: Chest single view 01/07/24, CT abdomen and pelvis 01/17/2024 FINDINGS: Again seen is mild elevation of right hemidiaphragm. There is mild atelectasis in left lowe r lung zone. No pleural effusion or pneumothorax. The heart size is normal. IMPRESSION: 1. Mild atelectasis in left lower lung zone. Reviewed, dictated and finalized at location E.
--- NOTE | ~2024-01-17 | CT_ITS ---
EXAMINATION: CTA chest PE protocol DATE: 01/20/2024 12:48 CDT INDICATION: Tachycardia. Shortness of breath. TECHNIQUE: Computed tomographic angiography (CTA) of the chest was performed with 100 mL Omnipaque-35 0 intravenous contrast. The dose-length product was 316.83 mGy-cm. Maximum intensity projection 3D-re constructions of the aorta and other arteries were constructed by the technologist on a separate work station. Automated exposure control and iterative reconstruction technique were employed. COMPARISON: CT dated 12/31/2023. FINDINGS: Trace right pleural effusion. Heart size normal. There are multiple stones in the left kidn ey. There is dependent high density material in the gallbladder, likely vicarious excretion of contra st. Heart size normal. No significant pericardial effusion. No thoracic lymphadenopathy. No large renee tral pulmonary embolism. Lower lobe segmental and subsegmental pulmonary artery evaluation limited du e to motion. Dependent atelectasis. IMPRESSION: 1. Dependent atelectasis. 2: Trace right pleural effusion. 3: No large central pulmonary embolism. 4: Left nephrolithiasis Reviewed, dictated and finalized at location A.
--- NOTE | ~2024-01-17 | CT_ITS ---
EXAMINATION: CT abdomen pelvis w con DATE: 01/17/2024 17:59 INDICATION: Abdominal pain. Sepsis. Solitary kidney. TECHNIQUE: Computed tomography (CT) of the abdomen and pelvis was performed with 100 mL Omnipaque 350 intravenous contrast. Automated exposure control and iterative reconstruction technique were employe d. The dose-length product was 501.67 mGy-cm. COMPARISON: CT abdomen and pelvis 12/31/23 FINDINGS: The visualized portions of the lung bases demonstrate mild atelectasis. No pleural effusion . The heart size is normal. No pericardial effusion. There are coronary artery calcifications. The [place], gallbladder, spleen, pancreas, adrenal glands are normal. There are changes of right nephrectomy . There is mild atrophy of left kidney. There is an 8 mm cyst in left kidney. There are innumerable s tones in left kidney and left renal pelvis measuring up to at least 4 mm. There is urothelial enhance ment in left renal pelvis. Stool distends the rectum. The appendix is normal. There are no pathologic ally enlarged lymph nodes. There is no free intraperitoneal fluid. There are fixation of proximal rig ht femur. 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 There is chronic dislocatio n of left hip with fused pseudoarthrosis. There is a sacral decubitus ulcer. There are bilateral isch ial decubitus ulcers. There is chronic deformity of the ischial tuberosities. IMPRESSION: 1. Left-sided pyelitis again seen. 2. Nonobstructing left kidney stones.. 3. Stool distends the rectum. Reviewed, dictated and finalized at location E.
--- NOTE | ~2024-01-17 | CT_ITS ---
EXAMINATION: CTA brain carotid DATE: 01/17/2024 19:49 INDICATION: Intracranial mass. TECHNIQUE: Computed tomographic angiography (CTA) of the head was performed with 100 mL Omnipaque-350 intravenous contrast. CTA of the neck was performed with intravenous contrast. Automated exposure co ntrol and iterative reconstruction technique were employed. The dose-length product was 940.41 mGy-cm . Maximum intensity projection and volume rendered 3D-reconstructions were created by the [employer] t on a separate workstation. COMPARISON: Head CT 01/17/24 FINDINGS: HEAD CTA: There is no intracranial hemorrhage or acute infarction. There is 11 x 6 x 11 mm enhancing extra-axial mass at the anterior margin of the sella to the left of midline, consistent with a mening ioma. There are scattered areas of low attenuation in the cerebral white matter. The ventricles are n ormal in size. There is mucosal thickening in the paranasal sinuses. The mastoid air cells are normal . The orbits are normal. The vertebral arteries are codominant. There is no significant stenosis of b asilar artery or the posterior cerebral arteries. The posterior commuting arteries are normal. There is no significant stenosis of the intracranial internal carotid arteries or anterior or middle cerebr al arteries. Anterior communicating artery is normal. There is no aneurysm. NECK CTA: There are nodules in the thyroid measuring up to 7 mm, likely not clinically significant. T here are no pathologically enlarged lymph nodes. There is no significant stenosis of the vertebral ar teries. There is plaque in the proximal internal carotid arteries. There is 0% stenosis of the proxim al right internal carotid artery relative to normal distal artery lumen diameter (NASCET criteria). T here is 0% stenosis of the proximal left internal carotid artery relative to normal distal artery lum en diameter. There is mild cervical spondylosis. There is chronic height loss of multiple thoracic ve rtebral bodies. 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 2. Moderate nonspecific cerebral white matter disease, which likely represents chronic small vessel i schemic disease. 3. No aneurysm or significant intracranial arterial stenosis. 4. 0% stenosis of the proximal internal carotid arteries relative to normal distal artery lumen diame ters (NASCET criteria). Reviewed, dictated and finalized at location E. 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 2. Moderate nonspecific cerebral white matter disease, which likely represents chronic small vessel ischemic disease. 3. No aneurysm or significant intracranial arterial stenosis. 4. 0% stenosis of the proximal internal carotid arteries relative to normal dis david artery lumen diameters (NASCET criteria).
--- NOTE | ~2024-01-17 | XR_ITS ---
XR fl guide central line place Indication: Insertion of central line TECHNIQUE: Fluoroscopy used during Insertion of central line performed by [Luis Eduardo Branham MD] on 01/25/2024. 16 minutes 51 seconds with one fluoroscopic images captured. FINDINGS: Correlate with procedure note. IMPRESSION: Fluoroscopy used during Insertion of central line. Central venous catheter tip overlies t he SVC. Reviewed, dictated and finalized at location B. IMPRESSION: Fluoroscopy used during Insertion of central line. Central venous c atheter tip overlies the SVC.
--- NOTE | ~2024-01-17 | CT_ITS ---
EXAMINATION: CT brain wo con DATE: 01/17/2024 17:59 INDICATION: Altered mental status. TECHNIQUE: Computed tomography (CT) of the head was performed without intravenous contrast. The mA wa s adjusted according to patient size. Iterative reconstruction technique was employed. The dose-lengt h product was 501.67 mGy-cm. COMPARISON: Head CT 01/08/2024 FINDINGS: There is no intracranial hemorrhage or acute infarction. There is an 11 x 6 x 11 mm enhanci ng mass at the anterior margin of the sella to the left of midline abutting left internal carotid art radha and anterior communicating artery. There are scattered areas of low attenuation in the cerebral w samia matter. The ventricles are normal in size. There is mucosal thickening in the paranasal sinuses. The mastoid air cells are normal. The orbits are normal. IMPRESSION: 1. 11 x 6 x 11 mm enhancing mass at the margin margin of the sella. This finding may be a meningioma or less likely an aneurysm. Head CTA is recommended. 2. Moderate nonspecific cerebral white matter disease, which likely represents chronic small vessel i schemic disease. Reviewed, dictated and finalized at location [facility]. IMPRESSION: 1. 11 x 6 x 11 mm enhancing mass at the margin margin of the sella. This findin g may be a meningioma or less likely an aneurysm. Head CTA is recommended. 2. Moderate nonspecific cerebral white matter disease, which likely represents chronic small vessel ischemic disease.
--- NOTE | ~2024-01-17 | XR_ITS ---
Portable chest x-ray Comparison: 01/17/2024 Clinical History: Mediport placement Findings: Left-sided Mediport in satisfactory position. There is linear scar or atelectasis left prabhu g base, unchanged. No pneumothorax. No acute pulmonary abnormality. Cardiomediastinal silhouette is stable. Bones and soft tissues are unremarkable. Impression: Left-sided Mediport in satisfactory position. No acute pulmonary abnormality. Reviewed, dictated and finalized at [facility]. Impression: Left-sided Mediport in satisfactory position. No acute pulmonary abnormality.
--- NOTE | 2024-01-17 15:32 | ECG_ITS ---
SEE SCANNED COPY FOR CONFIRMED REPORT MTDD
--- NOTE | 2024-01-17 16:12 | PC.NURSE ---
Pt with poor vasculature, nothing visible, as well as BUE contracture. Pt needing US guided IV placement with two unsuccessful attempts. RN at bedside with US attempting IV placement.
[2024-01-17 16:50] LABS: Alanine Aminotransferase 11 U/L (6-35); Albumin Level 4.4 g/dL (3.5-5.1); Alkaline Phosphatase 153 U/L (38-126); Anion Gap 19 mmol/L (4-12); Aspartate Amino Transferase 18 U/L (14-36); Bilirubin,Total 0.7 mg/dL (0.2-1.3); Blood Urea Nitrogen 7 mg/dL (7-17); Calcium 9.9 mg/dL (8.4-10.2); Carbon Dioxide 6 mmol/L (22-30); Chloride 119 mmol/L (98-107); Estimated Glomerular Filt Rate > 60; Glucose 68 mg/dL (65-110); Potassium 4.2 mmol/L (3.4-5.0); Sodium 144 mmol/L (137-145)
[2024-01-17 16:52] LABS: Basophils Absolute Auto 0.1 K/mm3 (0.0-0.1); Eosinophils Absolute Auto 0.2 K/mm3 (0-0.3); Eosinophils Percent Auto 1.2 % (0-4.4); Hematocrit 40.6 % (37.0-47.0); Hemoglobin 12.2 g/dL (12.0-15.0); Immature Granulocyte Absolute 0.06 K/mm3 (0.00-0.031); Immature Granulocyte Percent A 0.4 % (0-0.5); Lymphocytes Absolute Auto 2.64 K/mm3 (0.9-3.2); Lymphocytes Percent Auto 18.6 % (18.3-44.2); Mean Corpuscular Hemoglobin 25.7 pg (26-34); Mean Corpuscular Volume 85.7 fl (80-100); Mean Platelet Volume 10.6 fl (7.4-10.4); Monocytes Absolute Auto 0.7 K/mm3 (0.1-0.6); Monocytes Percent Auto 4.8 % (2.6-8.5); Neutrophils Absolute Auto 10.5 K/mm3 (1.3-6.7); Platelet Count Result 583 k/mm3 (150-375); Red Blood Count 4.74 M/mm3 (4.2-5.4); Red Cell Distribution Width 18.4 % (11.5-14.5); White Blood Count 14.2 K/mm3 (4.5-10.0)
[2024-01-17 17:05] LABS: INR 2.1; Prothrombin Time 24.8 Seconds (11.1-14.7)
[2024-01-17 17:06] LABS: Partial Thromboplastin Time 43.4 Seconds (22.3-36.8)
--- NOTE | 2024-01-17 17:10 | PC.NURSE ---
Attempted to straight cath patient x 4 unsuccessful attempts by multiple different nurses. Pt with hx of difficult catheterizations. Provider aware.
--- NOTE | 2024-01-17 17:39 | ED.AMS ---
HPI - Altered Mental Status General Chief Complaint: Altered Mental Status <Gloria Mueller PA-C - Last Filed: 01/17/24 21:13> Stated Complaint: not eating/drinking <LOREE Machado Last Filed: 01/17/24 21:13> Time Seen by Provider: 01/17/24 17:00 <LOREE Machado Last Filed: 01/17/24 21:13> Source: patient and old records reviewed <LOREE Machado Last Filed: 01/17/24 21:13> Mode of arrival: EMS <LOREE Machado Last Filed: 01/17/24 21:13> Limitations: clinical condition <LOREE Machado Last Filed: 01/17/24 21:13> History of Present Illness HPI narrative: Patient is a 58-year-old female, with past medical history of dementia, AMS, functional quadriplegia, DVT on Eliquis, solitary kidney s/p renal CA, who presents to the ED via EMS with report of altered mental status. Patient is resident of [facility]. Per penitentiary report, patient became altered today and was noted to have a fever. Sent here for further evaluation. Patient was recently admitted for similar symptoms from 12/30-01/09, sepsis, UTI. Per records, previous urine cultures have grown out ESBL and VRE. Per records of most recent hospitalization, it was very difficult to obtain a urine sample due to patient's contractures/anatomy, difficulty finding her urethra. Urology was consulted and advised patient may need a percutaneous nephrostomy tube if condition did not improve with antibiotics. Patient complains of pain all over to me currently. Repeatedly asking for ice chips. Denies any other acute concerns. She is alert and oriented x2 upon my evaluation. Per penitentiary report, patient has been refusing to eat, drink, or take her normal medications this week. <LOREE Machado Last Filed: 01/17/24 21:13> Related Data Home Medications: Home Medications Medication Instructions Recorded Confirmed acetaminophen 650 mg PO Q4H PRN Pain 12/17/22 01/17/24 cholecalciferol (vitamin D3) 1,000 units PO DAILY 12/17/22 01/17/24 famotidine 20 mg tablet 20 mg PO BID 12/17/22 01/17/24 hydrocortisone 5 mg tablet 5 mg PO DAILY 12/17/22 01/17/24 ipratropium bromide 0.02 % 1 ml inhalation DAILY PRN 12/17/22 01/17/24 solution for inhalation Shortness Of Breath lactulose 10 gram/15 mL oral 10 ml PO BID 12/17/22 01/17/24 solution metoprolol tartrate 50 mg tablet 50 mg PO BID 12/17/22 01/17/24 ondansetron 4 mg disintegrating 4 mg translingual QID PRN Nausea 12/17/22 01/17/24 tablet And Vomiting polyethylene glycol 3350 17 g PO DAILY Constipation 12/17/22 01/17/24 potassium chloride 20 mEq oral 20 meq PO DAILY 12/17/22 01/17/24 packet trazodone 50 mg tablet 50 mg PO HS 12/17/22 01/17/24 hydrocodone 5 mg-acetaminophen 325 1 tablet PO Q6H PRN Pain 07/27/23 01/17/24 mg tablet megestrol 400 mg/10 mL (40 mg/mL) 400 mg PO BID 07/27/23 01/17/24 oral suspension sennosides 8.6 mg tablet (senna) 8.6 mg PO DAILY PRN Constipation 07/27/23 01/17/24 amino acids-protein hydrolysate 17 See Rx Instructions .Route .COMPLEX 10/17/23 01/17/24 gram-100 kcal/30 mL oral liquid (Pro-Stat AWC) citalopram 20 mg tablet 20 mg PO HS 10/17/23 01/17/24 <Gloria Mueller PA-C - Last Filed: 01/17/24 21:13> Allergies/Adverse Reactions: Allergies Allergy/AdvReac Type Severity Reaction Status Date / Time No Known Allergies Allergy Verified 01/17/24 22:43 <Gloria Mueller PA-C - Last Filed: 01/17/24 21:13> Review of Systems Review of Systems: ROS unobtainable: Yes unobtainable due to medical condition and unobtainable due to mental status <Gloria Mueller PA-C - Last Filed: 01/17/24 21:13> [facility] Past Medical History Medical History: Medical History Acute on chronic anemia Anemia Anorexia Asthma Calculus of kidney Chronic obstructive pulmonary disease Chronic r
[2024-01-17 18:13] LABS: Influenza A QL RT-PCR Negative (Negative); Influenza B QL RT-PCR Negative (Negative); RSV RNA, RT-PCR Negative (Negative); SARS-CoV-2 RNA PCR Negative (Negative)
[2024-01-17] MEDS: SODIUM CHLORIDE 0.9% IV 1,000 ML 999 ML IV CONT ×3 (18:34→20:42)
[2024-01-17 19:38] LABS: Creatine Kinase 39 U/L (30-135)
[2024-01-17] MEDS: ACETAMINOPHEN 650 MG SUPPOSITORY RECTAL (19:58)
[2024-01-17] MEDS: MEROPENEM 1 GM/NS 100 ML 1 GM/100 ML BAG IVPB (20:42)
[2024-01-17 21:17] LABS: Lactic Acid Reflex 1.6 mmol/L (0.7-2.0)
--- NOTE | 2024-01-17 21:53 | ADMGEN ---
This patient, Yesenia Perez, was admitted to IMU Room 202-01. Patient/family oriented to hospital policies and general routines including ID bracelet, bed and alarms, visiting hours, pain management, procedures, bathroom and other care routines, personal items, smoking policy, room service/diet, and visiting hours. Information on how to activate the Rapid Response Team has been discussed. Patient/Family are encouraged to report perceived risks to care and to ask questions if they do not understand what they are told or what they should do.
[2024-01-17] MEDS: LINEZOLID 600 MG/300 ML 600 MG/300 ML SOLN 300 MG IVPB (22:32)
[2024-01-18] VITALS (16 sets, daily range): BP systolic 144–181; BP diastolic 84–118; PULSE 88–124; RESP 18–22; TEMP 35.7–36.5; O2SAT 98–100; BMI 22.1
--- NOTE | 2024-01-18 00:09 | PC.NURSE ---
Dr. Diamond notified of patient's BPs and pulses. New order given for labetalol 20mg IV push x1.
[2024-01-18] MEDS: LABETALOL HCL INJ 100 MG/20 ML VIAL 20 MG IV PUSH (00:21)
--- NOTE | 2024-01-18 00:35 | PM.IMHP ---
H&P: HPI History of Present Illness Date/Time: 01/18/24 00:35 Chief Complaint: Altered mental status Narrative: Ms. Perez is a 58-year-old female who has past medical history multiple sclerosis, functional quadriplegia, dementia with depression and behavioral disturbance, schizoaffective disorder, chronic anemia, solitary kidney status post renal carcinoma asthma, COPD, chronic respiratory failure, hypertension, history of ESBL UTI, history of DVT on Eliquis, GERD presents from [facility] with altered mental status. She was just discharged on January 09 facility due to delirium and failure to thrive and sepsis of unknown origin. She is a resident of [facility] she was noted to have a fever and be altered. In the [place] ER she has been refusing to take medications. This has been a problem with her before. She denies any other concerns. Presents with leukocytosis anion gap metabolic acidosis, CT abdomen pelvis with contrast demonstrating left-sided pyelitis which was seen on last admission. 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 Started on meropenem and Zyvox. Case discussed with Urology from the ER. Review of Systems Review of Systems: All systems reviewed & are unremarkable except as noted in HPI and below (Subjective) PMFSH Past Medical History Medical History Acute on chronic anemia Anemia Anorexia Asthma Calculus of kidney Chronic obstructive pulmonary disease Chronic respiratory failure with hypoxia, on home oxygen therapy Previously documented that the patient is oxygen dependent on 4 L nasal cannula however she denies and is on room air with good SpO2 as of 07/27/2023. Colitis COPD (chronic obstructive pulmonary disease) Dementia Depression Essential (primary) hypertension Extended spectrum beta lactamase (ESBL) resistance Fecal impaction Functional quadriplegia secondary to MS Generalized anxiety disorder GI bleed HTN (hypertension) Hyperlipidemia LEOLA (iron deficiency anemia) Intestinal obstruction Malignant neoplasm of right kidney MRSA infection Multiple sclerosis Multiple sclerosis Overactive bladder Pulmonary embolism (2014) Pyelonephritis Retained ureteral stent Schizoaffective disorder Schizophrenia Ureteral stent present Urinary retention Urinary tract infection due to extended-spectrum beta lactamase (ESBL) producing Escherichia coli Xanthogranulomatous pyelonephritis Surgical History Surgical History History of nephrostomy History of removal of ureteral stent 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 History of tubal ligation Family History Family History Mother Family history of multiple sclerosis Hypertension Father Patient's father is Social History Social History Social History: Patient is a ramos of the [facility]. Her guardian is Abe Burnham ([phone]). Code status: Full code. Smoking packs per day: 0.5 Smoking cigarettes per day: 10.0 Years smoked: 1 Smoking pack-years: 0.50 Smoking status: Never smoker Tobacco type: cigarettes Second hand tobacco smoke exposure: No Alcohol intake: never Substance use: never Do You Feel Safe in your Home?: No Lack of Transportation: No Lack of Food: Never True Current Housing: I Have Housing Concerned About Future Housing: No Difficulty Paying Gas/Electric Bills: No Difficulty Paying for Meds: No Currently Unemployed: No Education: High School Diploma/GED Difficulty w/ Childcare or Family Care: No Living arrangements: [facility] Additional living arrangements comments: 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
--- NOTE | 2024-01-18 02:00 | PC.NURSE ---
MD ordered ABG for patient. Multiple attempts to draw blood. Patient a difficult blood draw. MD notified with new orders to obtain a VBG.
[2024-01-18] MEDS: DEXTROSE 5%/0.9% SOD CHL 1,000 ML 150 ML IV CONT ×3 (04:00→21:58)
[2024-01-18] MEDS: MEROPENEM 1 GM/NS 100 ML 1 GM/100 ML BAG IVPB ×3 (04:00→20:18)
[2024-01-18 04:44] LABS: Basophils Absolute Auto 0.1 K/mm3 (0.0-0.1); Basophils Percent Auto 0.8 % (0.2-1.2); Eosinophils Absolute Auto 0.1 K/mm3 (0-0.3); Eosinophils Percent Auto 0.6 % (0-4.4); Hematocrit 39.2 % (37.0-47.0); Hemoglobin 11.7 g/dL (12.0-15.0); Immature Granulocyte Absolute 0.06 K/mm3 (0.00-0.031); Immature Granulocyte Percent A 0.5 % (0-0.5); Lymphocytes Absolute Auto 1.96 K/mm3 (0.9-3.2); Lymphocytes Percent Auto 15.2 % (18.3-44.2); Mean Corpuscular HGB Conc 29.8 g/dl (32-36); Mean Corpuscular Hemoglobin 25.9 pg (26-34); Mean Corpuscular Volume 86.7 fl (80-100); Mean Platelet Volume 10.5 fl (7.4-10.4); Monocytes Absolute Auto 0.8 K/mm3 (0.1-0.6); Monocytes Percent Auto 5.9 % (2.6-8.5); Neutrophils Absolute Auto 9.9 K/mm3 (1.3-6.7); Platelet Count Result 466 k/mm3 (150-375); Red Blood Count 4.52 M/mm3 (4.2-5.4); Red Cell Distribution Width 18.3 % (11.5-14.5); White Blood Count 12.9 K/mm3 (4.5-10.0)
[2024-01-18 05:07] LABS: Anisocytosis 1+; Platelet Estimate Adequate (Adequate); Schistocytes None Seen
[2024-01-18 05:08] LABS: Alanine Aminotransferase 9 U/L (6-35); Albumin Level 3.8 g/dL (3.5-5.1); Alkaline Phosphatase 138 U/L (38-126); Aspartate Amino Transferase 13 U/L (14-36); Bilirubin,Total 0.6 mg/dL (0.2-1.3); Blood Urea Nitrogen 6 mg/dL (7-17); Carbon Dioxide < 5 mmol/L (22-30); Chloride 123 mmol/L (98-107); Estimated CRCL calculation 50 ml/min; Estimated Glomerular Filt Rate > 60; Glucose 92 mg/dL (65-110); Potassium 3.8 mmol/L (3.4-5.0); Sodium 147 mmol/L (137-145)
--- NOTE | 2024-01-18 05:16 | PC.NURSE ---
Addendum entered by Lyndsey Segundo RN 01/18/24 05:18: Care coordination consulted. Original Note: Nurse [facility] called for patient update and reported that Abe Burnham, guardian, requests for patient to have a G-tube placed r/t decreased eating and drinking.
--- NOTE | 2024-01-18 05:44 | PCRCNOTE ---
Lab was unable to obtain a VBG after several attempts. Pt is a very difficult stick.
[2024-01-18 05:52] LABS: Procalcitonin 0.2 ng/mL
[2024-01-18 06:15] LABS: Acetaminophen < 10 ug/mL (10-30); Ethanol < 10 mg/dL (<10); Salicylate < 1.0 mg/dL (2-20)
[2024-01-18 06:16] LABS: Creatine Kinase 49 U/L (30-135)
[2024-01-18 08:00] LABS: Beta-Hydroxybutyrate/Acetoacetate 6.49 mmol/L (0.02-0.27)
--- NOTE | 2024-01-18 09:33 | PM.IMPN ---
Progress Note: A&P Assessment and Plan (1) Pyelitis: Code(s): N12 - Tubulo-interstitial nephritis, not specified as acute or chronic Status: Acute (2) Meningioma: Code(s): D32.9 - Benign neoplasm of meninges, unspecified Status: Acute (3) History of infection with vancomycin resistant Enterococcus (VRE): Code(s): Z86.19 - Personal history of other infectious and parasitic diseases Status: Acute (4) Delirium: Code(s): R41.0 - Disorientation, unspecified Status: Acute (5) Leukocytosis: Code(s): D72.829 - Elevated white blood cell count, unspecified Status: Acute (6) Multiple sclerosis: Code(s): G35 - Multiple sclerosis Status: Acute (7) Sepsis: Qualifiers: Sepsis acute organ dysfunction status: unspecified Sepsis type: sepsis due to unspecified organism Qualified Code(s): A41.9 - Sepsis, unspecified organism Code(s): A41.9 - Sepsis, unspecified organism Status: Acute Plan Ms. Perez is a 58-year-old female who has past medical history multiple sclerosis, functional quadriplegia, dementia with depression and behavioral disturbance, schizoaffective disorder, chronic anemia, solitary kidney status post renal carcinoma asthma, COPD, chronic respiratory failure, hypertension, history of ESBL UTI, history of DVT on Eliquis, GERD presents from [facility] with altered mental status. She was just discharged on January 09 facility due to delirium and failure to thrive and sepsis of unknown origin. She is a resident of [facility] she was noted to have a fever and be altered. In the [place] ER she has been refusing to take medications. This has been a problem with her before. She denies any other concerns. Presents with leukocytosis anion gap metabolic acidosis, CT abdomen pelvis with contrast demonstrating left-sided pyelitis which was seen on last admission. 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 Started on meropenem and Zyvox. Case discussed with Urology from the ER. sepsis, pyelonephritis Admit to IMU for sepsis possibly due to left-sided pyelitis. Blood cultures pending. Due to previous ESBL and VRE she has been started on meropenem and linezolid. Blood and urine cultures pending. The abdomen pelvis CT demonstrating left-sided pyelitis. Urology was consulted from the ER however without complication such as hydronephrosis they opted not to see the patient, reporting if the patient worsens then a consultation would be prudent. altered mental status possible toxic encephalopathy overlapped with metabolic encephalopathy CT of the head not helpful except for the meningioma which needs to be followed. patient the patient's foot and medications start D5 normal saline ABG showed decompensated metabolic acidosis beta hydroxybutyrate level 6.49 Check ammonia level<9 glucose 92 metabolic acidosis and positive ketones suspecting from starvation patient declines taking medication and food Patient has guardianship request to feed patient per PEG tube feeding consult GI for evaluation hypertension urgency uncontrolled hypertension and tachycardia. Labetalol 20 mg x1 ordered. start amlodipine 10 mg daily p.o., hydrochlorothiazide 25 mg daily p.o., hydralazine 10 mg IV q.4 as needed with parameters FEN: Heart healthy diet, D5 normal saline. GI prophylaxis: Protonix DVT prophylaxis: Lovenox, restart Eliquis when she is taking p.o. Lines: Peripheral IV Code Status: Full code. Dispo: Stable. Admit to IMU. Subjective Date/time seen: 01/18/24 09:33 Interval history: I saw and examined patient today, patient still has whole body ache, denies abdomen pain, nausea vomiting . Per nurse report, patient declined taking anything by mouth including medication and food. patient states she does not like food. labs reviewed
[2024-01-18] MEDS: LINEZOLID 600 MG/300 ML 600 MG/300 ML SOLN 300 MG IVPB ×2 (09:39→20:19)
[2024-01-18] MEDS: PANTOPRAZOLE SODIUM IV 40 MG VIAL IV PUSH (09:40)
[2024-01-18] MEDS: ENOXAPARIN 40 MG/0.4 ML SYRINGE SUB-Q (09:40)
[2024-01-18 09:52] LABS: Ammonia < 9 umol/L (9-30)
--- NOTE | 2024-01-18 11:14 | PCDIET ---
TUBE FEEDING RECOMMENDATIONS: Jevity 1,5 @ goal rate 50 ml/h. Start at 20 ml/h advance 10 ml q 8 hours until goal is reached Supplement thiamine and Vit B complex for refeeding/Wernicke's prevention Flush 150 ml free water q 4 hours
[2024-01-18 11:18] LABS: Appearance Urine Clear (Clear); Bacteria Urine None Seen /hpf; Bilirubin Urine Negative (Negative); Blood Urine 1+ (Negative); Color Urine Yellow (Yellow); Glucose Urine UA Negative (Negative); Ketones Urine 2+ mg/dL (Negative); Leukocyte Esterase Ur Negative LEU/UL (Negative); Nitrate Urine Negative (Negative); Protein Urine 2+ mg/dL (Negative); Squamous Epithelial Cell Urine None Seen /hpf (Few); Urobilinogen Urine 0.2 mg/dL (<2.0); WBC Urine 0-5 /hpf (0-3)
[2024-01-18 11:20] LABS: Add Urine Microscopic? YES
[2024-01-18] MEDS: hydrALAZINE HCL 20 MG/ML VIAL 10 MG IV PUSH (12:44)
--- NOTE | 2024-01-18 15:43 | WPDGICN ---
Assessment and Plan Assessment and plan (1) Multiple sclerosis: Code(s): G35 - Multiple sclerosis Status: Acute Assessment and Plan: she is long-term resident with failure to thrive and poor oral intake guardian made a decision to request G-tube, we can do it this Sunday (2) Malnutrition: Code(s): E46 - Unspecified protein-calorie malnutrition Status: Acute Assessment and Plan: need nutritional support (3) Functional quadriplegia secondary to MS: Code(s): G35 - Multiple sclerosis; R53.2 - Functional quadriplegia Status: Acute (4) Sepsis: Qualifiers: Sepsis acute organ dysfunction status: unspecified Sepsis type: sepsis due to unspecified organism Qualified Code(s): A41.9 - Sepsis, unspecified organism Code(s): A41.9 - Sepsis, unspecified organism Status: Acute Assessment and Plan: on abx pyelo (5) Pyelonephritis: Code(s): N12 - Tubulo-interstitial nephritis, not specified as acute or chronic Status: Acute (6) Acute encephalopathy: Code(s): G93.40 - Encephalopathy, unspecified Status: Acute GI Consult Note Consult date/time: 01/18/24 15:43 Reason for consult: malnutrition, evaluation for G-tube placement HPI: Yesenia Perez is a 58 year old female with past medical history multiple sclerosis, functional quadriplegia, dementia with depression and behavioral disturbance, schizoaffective disorder, chronic anemia, solitary kidney status post renal carcinoma asthma, COPD, chronic respiratory failure, hypertension, history of ESBL UTI, history of DVT on Eliquis, GERD presents from long-term with altered mental status.?History is obtained from records as she is poor historian, just recently she was discharged with delirium and failure to thrive and sepsis. She is a resident of [facility], sent here with fever and confusion. She has been refusing to take medications and her guardian contact primary team to make a decision that now she will benefit from getting G-tube placement. Here with leukocytosis anion gap metabolic acidosis, CT abdomen pelvis with contrast demonstrating left-sided pyelitis which was seen on last admission.? 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 Started on meropenem and Zyvox.?? Review of Systems Review of Systems: ROS unobtainable: Yes unobtainable due to medical condition and unobtainable due to mental status PMFSH Past Medical History Medical History (Updated 01/18/24 @ 15:47 by Jesús Oliver MD) Acute encephalopathy Acute on chronic anemia Anemia Anorexia Asthma Calculus of kidney Chronic obstructive pulmonary disease Chronic respiratory failure with hypoxia, on home oxygen therapy Previously documented that the patient is oxygen dependent on 4 L nasal cannula however she denies and is on room air with good SpO2 as of 07/27/2023. Colitis COPD (chronic obstructive pulmonary disease) Dementia Depression Essential (primary) hypertension Extended spectrum beta lactamase (ESBL) resistance Fecal impaction Functional quadriplegia secondary to MS Generalized anxiety disorder GI bleed HTN (hypertension) Hyperlipidemia LEOLA (iron deficiency anemia) Intestinal obstruction Malignant neoplasm of right kidney Malnutrition MRSA infection Multiple sclerosis Multiple sclerosis Overactive bladder Pulmonary embolism (2014) Pyelonephritis Retained ureteral stent Schizoaffective disorder Schizophrenia Ureteral stent present Urinary retention Urinary tract infection due to extended-spectrum beta lactamase (ESBL) producing Escherichia coli Xanthogranulomatous pyelonephritis Surgical History Surgical History History of nephrostomy History of removal of ureteral stent History of right nephrectomy Due to staghorn colliculus with NM perfusion scan demo
[2024-01-18] MEDS: METOPROLOL TARTRATE INJ 5 MG/5 ML VIAL IV PUSH (16:09)
[2024-01-18 17:43] LABS: Basophils Absolute Auto 0.1 K/mm3 (0.0-0.1); Basophils Percent Auto 1.2 % (0.2-1.2); Eosinophils Absolute Auto 0.1 K/mm3 (0-0.3); Eosinophils Percent Auto 1.3 % (0-4.4); Hematocrit 43.4 % (37.0-47.0); Hemoglobin 12.2 g/dL (12.0-15.0); Immature Granulocyte Absolute 0.06 K/mm3 (0.00-0.031); Immature Granulocyte Percent A 0.6 % (0-0.5); Lymphocytes Absolute Auto 1.19 K/mm3 (0.9-3.2); Mean Corpuscular HGB Conc 28.1 g/dl (32-36); Mean Corpuscular Hemoglobin 25.9 pg (26-34); Mean Corpuscular Volume 92.1 fl (80-100); Monocytes Absolute Auto 0.8 K/mm3 (0.1-0.6); Monocytes Percent Auto 7.5 % (2.6-8.5); Neutrophils Absolute Auto 8.5 K/mm3 (1.3-6.7); Neutrophils Percent Auto 78.4 % (45.5-73.1); Platelet Count Result 353 k/mm3 (150-375); Red Blood Count 4.71 M/mm3 (4.2-5.4); Red Cell Distribution Width 18.6 % (11.5-14.5); White Blood Count 10.8 K/mm3 (4.5-10.0)
[2024-01-18 18:00] LABS: Glucose Point of Care 165 mg/dl (65-105)
[2024-01-18 18:28] LABS: Anion Gap 9 mmol/L (4-12); Blood Urea Nitrogen 4 mg/dL (7-17); Calcium 8.9 mg/dL (8.4-10.2); Carbon Dioxide 9 mmol/L (22-30); Chloride 125 mmol/L (98-107); Estimated CRCL calculation 73 ml/min; Estimated Glomerular Filt Rate > 60; Glucose 154 mg/dL (65-110); Magnesium 1.7 mg/dL (1.6-2.3); Potassium 3.3 mmol/L (3.4-5.0); Sodium 143 mmol/L (137-145)
[2024-01-18 18:54] LABS: Hypochromasia 1+; Platelet Estimate Adequate (Adequate); Schistocytes None Seen
[2024-01-18 18:55] LABS: Anisocytosis 2+
[2024-01-19] VITALS (11 sets, daily range): BP systolic 125–169; BP diastolic 76–119; PULSE 88–125; RESP 12–20; TEMP 36.1–36.6; O2SAT 96–100
[2024-01-19 00:20] LABS: Glucose Point of Care 159 mg/dl (65-105)
[2024-01-19] MEDS: hydrALAZINE HCL 20 MG/ML VIAL 10 MG IV PUSH (00:39)
[2024-01-19] MEDS: MEROPENEM 1 GM/NS 100 ML 1 GM/100 ML BAG IVPB ×3 (04:50→20:53)
[2024-01-19] MEDS: DEXTROSE 5%/0.9% SOD CHL 1,000 ML 150 ML IV CONT ×2 (04:57→23:36)
[2024-01-19 05:48] LABS: Glucose Point of Care 124 mg/dl (65-105)
[2024-01-19 08:55] LABS: Basophils Absolute Auto 0.1 K/mm3 (0.0-0.1); Basophils Percent Auto 1.1 % (0.2-1.2); Eosinophils Absolute Auto 0.2 K/mm3 (0-0.3); Eosinophils Percent Auto 1.4 % (0-4.4); Hematocrit 35.4 % (37.0-47.0); Hemoglobin 11.3 g/dL (12.0-15.0); Immature Granulocyte Absolute 0.06 K/mm3 (0.00-0.031); Immature Granulocyte Percent A 0.5 % (0-0.5); Lymphocytes Percent Auto 7.9 % (18.3-44.2); Mean Corpuscular HGB Conc 31.9 g/dl (32-36); Mean Corpuscular Hemoglobin 25.8 pg (26-34); Mean Corpuscular Volume 80.8 fl (80-100); Monocytes Absolute Auto 0.6 K/mm3 (0.1-0.6); Monocytes Percent Auto 5.4 % (2.6-8.5); Neutrophils Absolute Auto 9.6 K/mm3 (1.3-6.7); Neutrophils Percent Auto 83.7 % (45.5-73.1); Platelet Count Result 442 k/mm3 (150-375); Red Blood Count 4.38 M/mm3 (4.2-5.4); White Blood Count 11.5 K/mm3 (4.5-10.0)
[2024-01-19] MEDS: LABETALOL HCL INJ 100 MG/20 ML VIAL 20 MG IV PUSH (09:03)
[2024-01-19] MEDS: LINEZOLID 600 MG/300 ML 600 MG/300 ML SOLN 300 MG IVPB ×2 (09:03→20:53)
[2024-01-19] MEDS: PANTOPRAZOLE SODIUM IV 40 MG VIAL IV PUSH (09:03)
[2024-01-19 09:07] LABS: Alanine Aminotransferase 11 U/L (6-35); Albumin Level 3.1 g/dL (3.5-5.1); Alkaline Phosphatase 131 U/L (38-126); Anion Gap 9 mmol/L (4-12); Aspartate Amino Transferase 15 U/L (14-36); Bilirubin,Total 0.6 mg/dL (0.2-1.3); Blood Urea Nitrogen 3 mg/dL (7-17); Calcium 8.8 mg/dL (8.4-10.2); Carbon Dioxide 11 mmol/L (22-30); Chloride 126 mmol/L (98-107); Estimated CRCL calculation 73 ml/min; Estimated Glomerular Filt Rate > 60; Glucose 152 mg/dL (65-110); Magnesium 1.6 mg/dL (1.6-2.3); Phosphorus 1.3 mg/dL (2.5-4.5); Potassium 2.2 mmol/L (3.4-5.0); Sodium 146 mmol/L (137-145)
--- NOTE | 2024-01-19 09:26 | PM.IMPN ---
Progress Note: A&P Assessment and Plan (1) Malnutrition: Code(s): E46 - Unspecified protein-calorie malnutrition Status: Acute (2) Pyelitis: Code(s): N12 - Tubulo-interstitial nephritis, not specified as acute or chronic Status: Acute (3) Meningioma: Code(s): D32.9 - Benign neoplasm of meninges, unspecified Status: Acute (4) History of infection with vancomycin resistant Enterococcus (VRE): Code(s): Z86.19 - Personal history of other infectious and parasitic diseases Status: Acute (5) Acute encephalopathy: Code(s): G93.40 - Encephalopathy, unspecified Status: Acute Plan Ms. Perez is a 58-year-old female who has past medical history multiple sclerosis, functional quadriplegia, dementia with depression and behavioral disturbance, schizoaffective disorder, chronic anemia, solitary kidney status post renal carcinoma asthma, COPD, hypertension, history of ESBL UTI, hypertension, history of DVT on Eliquis, GERD presents from [facility] with altered mental status.? She was just discharged on January 09 facility due to delirium and failure to thrive and sepsis of unknown origin.? She is a resident of [facility] she was noted to have a fever and be altered.? In the [place] ER she has been refusing to take medications.? This has been a problem with her before.? She denies any other concerns.? Presents with leukocytosis anion gap metabolic acidosis, CT abdomen pelvis with contrast demonstrating left-sided pyelitis which was seen on last admission.? 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 Started on meropenem and Zyvox.? Case discussed with Urology from the ER. #Sepsis secondary to pyelonephritis -monitor tachycardia and leukocytosis. -blood cultures pending -due to the patient's anatomical status unable to obtain urine samples. If patient declines urology you may have to intervene. There were notified in the ER. -meropenem and Zyvox started on admission on 01/17/2024. History of ESBL and VRE. #Acute encephalopathy with history of dementia depression and schizoaffective disorder -she appears more cantankerous than altered. Unclear if this is a schizoaffective disorder presentation with dementia and behavioral disturbance or an acute/metabolic encephalopathy. -continue to monitor. #Metabolic acidosis -multifactorial. Starvation ketoacidosis plus hypochloremic acidosis. -improved status post D5 normal saline administration. Continue to monitor. #Starvation ketoacidosis/malnutrition/electrolyte abnormalities -due to patient's unwillingness to eat. Guardian has requested PEG tube. This is to be done on Sunday with Dr. Sosa team. Monitor for refeeding syndrome thereafter. -hypokalemia and hypomagnesemia. Replace and recheck #Hypertensive urgency -on 01/17 the patient's p.o. meds were started but she has continued to refuse p.o. meds. Can restart these again when she has a PEG tube -for now, use hydralazine and labetalol p.r.n.. #History of DVT on Eliquis -heparin GTT started. Thought Sunday morning for PEG tube. If no complications start Eliquis after. #GERD -continue Protonix FEN:? Heart healthy diet if she is willing, D5 normal saline, replace magnesium and potassium GI prophylaxis:? Protonix DVT prophylaxis:? Heparin GTT. Start Eliquis after PEG tube placement. Lines:? Peripheral IV Code Status:? Full code. Dispo:? Stable in IMU Subjective Date/time seen: 01/19/24 09:26 Interval history: Patient unwilling to discuss her symptoms today. Review of Systems Review of Systems: All systems reviewed & are unremarkable except as noted in HPI and below (Subjective) Exam Const: General: comfortable and no acute distress Other: Uncooperative Eyes: Pupils: Equal, round and reactive pupils present Neck: Neck: supple Resp: Effort & Inspection: normal respiratory effort Auscult
[2024-01-19] MEDS: HEPARIN SOD/D5W 100 UNITS/ML 25,000 UNITS/250 ML BAG 11 UNITS IV CONT (09:27)
[2024-01-19] MEDS: MAGNESIUM SULF 2 GM/WATER 50ML 2 GM/50 ML BAG IVPB (10:09)
[2024-01-19] MEDS: POTASSIUM CHLORIDE INJ 40 MEQ in SODIUM CHLORIDE 0.9% IV 500 ML 130 MEQ IVPB ×2 (10:26→15:16)
[2024-01-19 12:27] LABS: Glucose Point of Care 136 mg/dl (65-105)
--- NOTE | 2024-01-19 14:00 | WPDGIPROGNO ---
Progress Note: A&P Assessment and Plan (1) Malnutrition: Code(s): E46 - Unspecified protein-calorie malnutrition Status: Acute Assessment and Plan: guardian has requested PEG placement, plan for this Sunday she is hardly eating and has malnutrition (2) Acute encephalopathy: Code(s): G93.40 - Encephalopathy, unspecified Status: Acute (3) Pyelonephritis: Code(s): N12 - Tubulo-interstitial nephritis, not specified as acute or chronic Status: Acute Assessment and Plan: on abx (4) Delirium: Code(s): R41.0 - Disorientation, unspecified Status: Acute (5) Multiple sclerosis: Code(s): G35 - Multiple sclerosis Status: Acute (6) Functional quadriplegia secondary to MS: Code(s): G35 - Multiple sclerosis; R53.2 - Functional quadriplegia Status: Acute Subjective Date/time seen: 01/19/24 14:00 Interval history: no changes, still poor oral intake Review of Systems Review of Systems: All systems reviewed & are unremarkable except as noted in HPI and below Exam Const: General: comfortable and no acute distress Other: Uncooperative HENMT: Face/Nose/Sinus: Normal nares present Eyes: Pupils: Equal, round and reactive pupils present Neck: Neck: supple Resp: Effort & Inspection: normal respiratory effort Auscultation: clear to auscultation bilaterally Cardio: Rate: regular rate Rhythm: regular rhythm GI: GI Palp: Yes Soft to palpation and No Tenderness to palpation present (GI) Auscultation: normal bowel sounds Skin: General skin exam: normal color Neuro: Other: quadriplegic, MS Extrem: General: no edema Psych: Affect: Anxious affect present Objective Data Vital Signs Vital Signs: Vital Signs - 24 hr 01/18/24 15:34 01/18/24 16:00 01/18/24 16:09 Temperature 96.2 F L Pulse Rate 124 H 119 H 121 H Respiratory Rate 19 Blood Pressure 148/100 H Pulse Oximetry 100 Oxygen Delivery 01/18/24 19:57 01/18/24 20:00 01/18/24 20:00 Temperature 97.7 F Pulse Rate 114 H 113 H Respiratory Rate 19 Blood Pressure 145/101 H Pulse Oximetry 100 Oxygen Delivery Room Air 01/19/24 00:17 01/19/24 01:29 01/19/24 00:00 Temperature 97.4 F L Pulse Rate 114 H 123 H 110 H Respiratory Rate 19 Blood Pressure 167/112 H 128/76 Pulse Oximetry 100 Oxygen Delivery 01/19/24 04:25 01/19/24 04:00 01/19/24 07:30 Temperature 97.6 F Pulse Rate 123 H 125 H Respiratory Rate 19 Blood Pressure 136/88 Pulse Oximetry 100 Oxygen Delivery Room Air 01/19/24 08:00 01/19/24 09:03 01/19/24 08:00 Temperature 97.1 F L Pulse Rate 118 H 122 H 123 H Respiratory Rate 20 Blood Pressure 156/100 H Pulse Oximetry 100 Oxygen Delivery 01/19/24 12:00 01/19/24 12:00 Temperature 97.0 F L Pulse Rate 93 88 Respiratory Rate 16 Blood Pressure 125/85 Pulse Oximetry 96 Oxygen Delivery Intake/Output Intake/Output: Intake & Output 01/16/24 01/17/24 01/18/24 01/19/24 23:59 23:59 23:59 23:59 Intake Total 2400 2900 1610 Output Total 800 500 Balance 2400 2100 1110 Meds/Results Medications: Active Medications Generic Name Dose Route Start Last Admin Trade Name Freq PRN Reason Stop Dose Admin Acetaminophen 650 mg 01/17/24 21:00 Acetaminophen 650 Mg Suppository RECTAL Q6H PRN Mild Pain (1-3) or Fever Dextrose 12.5 gm 01/17/24 21:00 Dextrose 50% 25 Gm/50 Ml Syringe IV PUSH PRN PRN Hypoglycemia Protocol Glucagon 1 mg 01/17/24 21:00 Glucagon For Inj 1 Mg Vial IM PRN PRN Hypoglycemia Protocol Glucose 15 gm 01/17/24 21:00 Glucose Oral Gel 15 Gm Of Glucse In 37.5 Gm Tube PO PRN PRN Hypoglycemia Protocol Heparin Sodium (Porcine) 5,000 units 01/19/24 08:44 Heparin Sodium 5,000 Units/Ml Vial IV PUSH PRN PRN aPTT less than 55 seconds Heparin Sodium (Porcine) 2,500
[2024-01-19 17:48] LABS: Anion Gap 9 mmol/L (4-12); Blood Urea Nitrogen 3 mg/dL (7-17); Calcium 8.8 mg/dL (8.4-10.2); Carbon Dioxide 9 mmol/L (22-30); Chloride 128 mmol/L (98-107); Estimated CRCL calculation 73 ml/min; Estimated Glomerular Filt Rate > 60; Glucose 108 mg/dL (65-110); Magnesium 2.5 mg/dL (1.6-2.3); Potassium 2.8 mmol/L (3.4-5.0); Sodium 146 mmol/L (137-145)
[2024-01-19 18:36] LABS: Glucose Point of Care 93 mg/dl (65-105)
[2024-01-19] MEDS: ENOXAPARIN 80 MG/0.8 ML SYRINGE 61 MG SUB-Q (20:52)
[2024-01-19 23:00] LABS: Anion Gap 6 mmol/L (4-12); Blood Urea Nitrogen 3 mg/dL (7-17); Calcium 8.8 mg/dL (8.4-10.2); Carbon Dioxide 11 mmol/L (22-30); Chloride 127 mmol/L (98-107); Estimated CRCL calculation 73 ml/min; Estimated Glomerular Filt Rate > 60; Glucose 188 mg/dL (65-110); Potassium 3.3 mmol/L (3.4-5.0); Sodium 144 mmol/L (137-145)
[2024-01-20] VITALS (13 sets, daily range): BP systolic 140–173; BP diastolic 70–111; PULSE 75–120; RESP 14–20; TEMP 36.4–36.6; O2SAT 100
[2024-01-20 04:01] LABS: Basophils Absolute Auto 0.1 K/mm3 (0.0-0.1); Basophils Percent Auto 0.9 % (0.2-1.2); Eosinophils Absolute Auto 0.2 K/mm3 (0-0.3); Eosinophils Percent Auto 1.7 % (0-4.4); Hematocrit 32.2 % (37.0-47.0); Hemoglobin 10.1 g/dL (12.0-15.0); Immature Granulocyte Absolute 0.05 K/mm3 (0.00-0.031); Immature Granulocyte Percent A 0.4 % (0-0.5); Lymphocytes Absolute Auto 1.72 K/mm3 (0.9-3.2); Lymphocytes Percent Auto 14.2 % (18.3-44.2); Mean Corpuscular HGB Conc 31.4 g/dl (32-36); Mean Corpuscular Hemoglobin 25.4 pg (26-34); Mean Corpuscular Volume 81.1 fl (80-100); Mean Platelet Volume 10.9 fl (7.4-10.4); Monocytes Absolute Auto 0.8 K/mm3 (0.1-0.6); Monocytes Percent Auto 6.2 % (2.6-8.5); Neutrophils Absolute Auto 9.3 K/mm3 (1.3-6.7); Neutrophils Percent Auto 76.6 % (45.5-73.1); Platelet Count Result 425 k/mm3 (150-375); Red Blood Count 3.97 M/mm3 (4.2-5.4); Red Cell Distribution Width 17.8 % (11.5-14.5); White Blood Count 12.1 K/mm3 (4.5-10.0)
[2024-01-20 04:11] LABS: Anion Gap 9 mmol/L (4-12); Blood Urea Nitrogen 2 mg/dL (7-17); Calcium 9.1 mg/dL (8.4-10.2); Carbon Dioxide 10 mmol/L (22-30); Chloride 128 mmol/L (98-107); Estimated CRCL calculation 73 ml/min; Estimated Glomerular Filt Rate > 60; Glucose 136 mg/dL (65-110); Magnesium 2.3 mg/dL (1.6-2.3); Potassium 2.9 mmol/L (3.4-5.0); Sodium 147 mmol/L (137-145)
[2024-01-20] MEDS: MEROPENEM 1 GM/NS 100 ML 1 GM/100 ML BAG IVPB ×3 (04:21→20:10)
[2024-01-20] MEDS: DEXTROSE 5%/0.9% SOD CHL 1,000 ML 150 ML IV CONT (05:34)
[2024-01-20] MEDS: LINEZOLID 600 MG/300 ML 600 MG/300 ML SOLN 300 MG IVPB ×2 (08:28→22:55)
[2024-01-20] MEDS: PANTOPRAZOLE SODIUM IV 40 MG VIAL IV PUSH (08:30)
[2024-01-20] MEDS: ENOXAPARIN 80 MG/0.8 ML SYRINGE 65 MG SUB-Q (08:31)
--- NOTE | 2024-01-20 09:50 | PC.NURSE ---
This patient, Yesenia Perez, was received from IMU on 01/20/24 at 1517. Patient/family oriented to unit policies and routines. Report received from JAVON Nunn.
--- NOTE | 2024-01-20 09:56 | PC.NURSE ---
report given to Barbara ALEJANDRO - pt transferred to room 240 via bed accompanied by staff
[2024-01-20 11:53] LABS: Glucose Point of Care 125 mg/dl (65-105)
--- NOTE | 2024-01-20 12:08 | WPDGIPROGNO ---
Progress Note: A&P Assessment and Plan (1) Malnutrition: Code(s): E46 - Unspecified protein-calorie malnutrition Status: Acute Assessment and Plan: guardian has requested PEG placement, plan is tomorrow she is hardly eating and has malnutrition (2) Acute encephalopathy: Code(s): G93.40 - Encephalopathy, unspecified Status: Acute (3) Pyelonephritis: Code(s): N12 - Tubulo-interstitial nephritis, not specified as acute or chronic Status: Acute Assessment and Plan: on abx (4) Delirium: Code(s): R41.0 - Disorientation, unspecified Status: Acute (5) Multiple sclerosis: Code(s): G35 - Multiple sclerosis Status: Acute Assessment and Plan: requires full assistance (6) Functional quadriplegia secondary to MS: Code(s): G35 - Multiple sclerosis; R53.2 - Functional quadriplegia Status: Acute Subjective Date/time seen: 01/20/24 12:08 Interval history: no changes Review of Systems Review of Systems: All systems reviewed & are unremarkable except as noted in HPI and below Exam Const: General: comfortable and no acute distress Other: chronically ill appearing HENMT: Face/Nose/Sinus: Normal nares present Eyes: Sclera: sclerae normal Neck: Neck: supple Resp: Effort & Inspection: normal respiratory effort Auscultation: clear to auscultation bilaterally Cardio: Rate: regular rate Rhythm: regular rhythm GI: GI Palp: Yes Soft to palpation and No Tenderness to palpation present (GI) Auscultation: normal bowel sounds Skin: General skin exam: normal color Neuro: Other: quadriplegic, MS Extrem: General: no edema Psych: Affect: Anxious affect present Objective Data Vital Signs Vital Signs: Vital Signs - 24 hr 01/19/24 16:00 01/19/24 16:00 01/19/24 20:00 Temperature 97.4 F L 97.6 F Pulse Rate 102 H 103 H 116 H Respiratory Rate 20 20 Blood Pressure 169/97 H 156/119 H Pulse Oximetry 99 Oxygen Delivery 01/19/24 20:00 01/19/24 20:00 01/19/24 23:40 Temperature 97.9 F Pulse Rate 114 H 114 H Respiratory Rate 12 Blood Pressure 165/108 H Pulse Oximetry 100 Oxygen Delivery Room Air 01/20/24 00:00 01/20/24 04:00 01/20/24 04:00 Temperature 97.8 F Pulse Rate 110 H 116 H 115 H Respiratory Rate 14 Blood Pressure 162/111 H Pulse Oximetry 100 Oxygen Delivery 01/20/24 08:00 01/20/24 09:00 01/20/24 10:42 Temperature 97.6 F Pulse Rate 111 H 111 H 114 H Respiratory Rate 20 18 Blood Pressure 173/103 H Pulse Oximetry 100 100 Oxygen Delivery 01/20/24 10:55 Temperature Pulse Rate Respiratory Rate Blood Pressure 143/98 H Pulse Oximetry Oxygen Delivery Intake/Output Intake/Output: Intake & Output 01/17/24 01/18/24 01/19/24 01/20/24 23:59 23:59 23:59 23:59 Intake Total 2400 2900 4140.4 1295 Output Total 800 900 650 Balance 2400 2100 3240.4 645 Meds/Results Medications: Active Medications Generic Name Dose Route Start Last Admin Trade Name Freq PRN Reason Stop Dose Admin Acetaminophen 650 mg 01/17/24 21:00 Acetaminophen 650 Mg Suppository RECTAL Q6H PRN Mild Pain (1-3) or Fever Dextrose 12.5 gm 01/17/24 21:00 Dextrose 50% 25 Gm/50 Ml Syringe IV PUSH PRN PRN Hypoglycemia Protocol Enoxaparin Sodium 65 mg 01/20/24 09:00 01/20/24 08:31 Enoxaparin 80 Mg/0.8 Ml Syringe SUB-Q 65 mg Q12HR MERLYN Administration Glucagon 1 mg 01/17/24 21:00 Glucagon For Inj 1 Mg Vial IM PRN PRN Hypoglycemia Protocol Glucose 15 gm 01/17/24 21:00 Glucose Oral Gel 15 Gm Of Glucse In 37.5 Gm Tube PO PRN PRN Hypoglycemia Protocol Meropenem 1 gm in 100 mls @ 200 mls/hr 01/18/24 05:00 01/20/24 04:21 IVPB 200 mls/hr Q8H MERLYN Administration Linezolid 600 mg in 300 mls @ 300 mls/hr 01/17/24 21:00 01/20/24 09:40 Zyvox IVPB Infused Q12HR MERLYN Inf
--- NOTE | 2024-01-20 13:34 | PM.IMPN ---
Progress Note: A&P Assessment and Plan (1) Malnutrition: Code(s): E46 - Unspecified protein-calorie malnutrition Status: Acute (2) Pyelitis: Code(s): N12 - Tubulo-interstitial nephritis, not specified as acute or chronic Status: Acute (3) Meningioma: Code(s): D32.9 - Benign neoplasm of meninges, unspecified Status: Acute (4) History of infection with vancomycin resistant Enterococcus (VRE): Code(s): Z86.19 - Personal history of other infectious and parasitic diseases Status: Acute (5) Acute encephalopathy: Code(s): G93.40 - Encephalopathy, unspecified Status: Acute Plan Ms. Perez is a 58-year-old female who has past medical history multiple sclerosis, functional quadriplegia, dementia with depression and behavioral disturbance, schizoaffective disorder, chronic anemia, solitary kidney status post renal carcinoma asthma, COPD, hypertension, history of ESBL UTI, hypertension, history of DVT on Eliquis, GERD presents from intermediate with altered mental status.? She was just discharged on January 09 facility due to delirium and failure to thrive and sepsis of unknown origin.? She is a resident of [facility] she was noted to have a fever and be altered.? In the [facility] she has been refusing to take medications.? This has been a problem with her before.? She denies any other concerns.? Presents with leukocytosis anion gap metabolic acidosis, CT abdomen pelvis with contrast demonstrating left-sided pyelitis which was seen on last admission.? 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 Started on meropenem and Zyvox.? Case discussed with Urology from the ER. #Sepsis secondary to pyelonephritis -monitor tachycardia and leukocytosis. On 01/19 they are persistent. Check procalcitonin and attempt to restart her home dose metoprolol. -blood cultures pending, no growth to date. -due to the patient's anatomical status unable to obtain urine samples. If patient declines urology you may have to intervene. There were notified in the ER. -meropenem and Zyvox started on admission on 01/17/2024. Continue these. History of ESBL and VRE. #Acute encephalopathy with history of dementia depression and schizoaffective disorder -she appears more cantankerous than altered. Unclear if this is a schizoaffective disorder presentation with dementia and behavioral disturbance or an acute/metabolic encephalopathy. -morning of 01/20/2024 he is complaining of shortness of breath and repetitively asking for pineapple juice. History is difficult to obtain otherwise. Her lung sounds are clear and CTA of the chest does not demonstrated PE. Demonstrating atelectasis and a small pleural effusion. Incentive spirometer has been ordered. DuoNebs p.r.n. she is on room air -her Seroquel and metoprolol have been restarted. She is having some tachycardia and disorganized thinking. Have not restarted her whole home med list as that may turn her away taking her meds. Hopefully she will take metoprolol and her nightly Seroquel. Plan for PEG tube tomorrow with GI #Metabolic acidosis -multifactorial. Starvation ketoacidosis plus hypochloremic acidosis. Slowly improving status post D5 normal saline #acute hypokalemia -likely due to poor oral intake. Add KCl to the D5 normal saline and recheck BMP tonight. #Starvation ketoacidosis/malnutrition/electrolyte abnormalities -due to patient's unwillingness to eat. Guardian has requested PEG tube. This is to be done on Sunday with Dr. Sosa team. Monitor for refeeding syndrome thereafter. -hypokalemia and hypomagnesemia. Replace and recheck #Hypertensive urgency -on 01/17 the patient's p.o. meds were started but she has continued to refuse p.o. meds. Can restart these again when she has a PEG tube -for now, use hydralazine and labetalol p.r.n. -attempting to restart metoprolol #History of DVT on Alda
[2024-01-20] MEDS: METOPROLOL TARTRATE 50 MG TAB PO (14:34)
[2024-01-20] MEDS: KCL 40 MEQ/D5/0.9% SOD CHL 1,000 ML 100 ML IV CONT (14:34)
[2024-01-20 15:38] LABS: Influenza A QL RT-PCR Negative (Negative); Influenza B QL RT-PCR Negative (Negative); RSV RNA, RT-PCR Negative (Negative); SARS-CoV-2 RNA PCR Negative (Negative)
[2024-01-20 23:07] LABS: Anion Gap 7 mmol/L (4-12); Calcium 8.5 mg/dL (8.4-10.2); Carbon Dioxide 10 mmol/L (22-30); Chloride 128 mmol/L (98-107); Estimated CRCL calculation 86 ml/min; Estimated Glomerular Filt Rate > 60; Glucose 119 mg/dL (65-110); Sodium 145 mmol/L (137-145)
[2024-01-21] VITALS (14 sets, daily range): BP systolic 74–178; BP diastolic 48–109; PULSE 60–121; RESP 14–20; TEMP 35.9–36.9; O2SAT 99–100
[2024-01-21 00:02] LABS: Blood Urea Nitrogen 2 mg/dL (7-17)
[2024-01-21] MEDS: KCL 40 MEQ/D5/0.9% SOD CHL 1,000 ML 100 ML IV CONT ×2 (01:00→13:22)
[2024-01-21 05:31] LABS: Basophils Absolute Auto 0.1 K/mm3 (0.0-0.1); Basophils Percent Auto 1.1 % (0.2-1.2); Eosinophils Absolute Auto 0.4 K/mm3 (0-0.3); Hematocrit 33.5 % (37.0-47.0); Hemoglobin 10.5 g/dL (12.0-15.0); Immature Granulocyte Absolute 0.03 K/mm3 (0.00-0.031); Immature Granulocyte Percent A 0.3 % (0-0.5); Lymphocytes Absolute Auto 2.51 K/mm3 (0.9-3.2); Mean Corpuscular HGB Conc 31.3 g/dl (32-36); Mean Corpuscular Hemoglobin 25.4 pg (26-34); Mean Corpuscular Volume 81.1 fl (80-100); Mean Platelet Volume 10.8 fl (7.4-10.4); Monocytes Absolute Auto 0.7 K/mm3 (0.1-0.6); Monocytes Percent Auto 6.3 % (2.6-8.5); Neutrophils Absolute Auto 7.1 K/mm3 (1.3-6.7); Neutrophils Percent Auto 65.3 % (45.5-73.1); Platelet Count Result 432 k/mm3 (150-375); Red Blood Count 4.13 M/mm3 (4.2-5.4); Red Cell Distribution Width 18.6 % (11.5-14.5); White Blood Count 10.9 K/mm3 (4.5-10.0)
[2024-01-21 05:44] LABS: Anion Gap 7 mmol/L (4-12); Calcium 8.6 mg/dL (8.4-10.2); Carbon Dioxide 10 mmol/L (22-30); Chloride 127 mmol/L (98-107); Estimated CRCL calculation 86 ml/min; Estimated Glomerular Filt Rate > 60; Glucose 97 mg/dL (65-110); Potassium 3.6 mmol/L (3.4-5.0); Sodium 144 mmol/L (137-145)
[2024-01-21] MEDS: MEROPENEM 1 GM/NS 100 ML 1 GM/100 ML BAG IVPB ×3 (05:52→21:46)
[2024-01-21 06:28] LABS: Procalcitonin 0.2 ng/mL
[2024-01-21 07:02] LABS: Glucose Point of Care 82 mg/dl (65-105)
--- NOTE | 2024-01-21 07:44 | PM.IMPN ---
Progress Note: A&P Assessment and Plan (1) Malnutrition: Code(s): E46 - Unspecified protein-calorie malnutrition Status: Acute (2) Pyelitis: Code(s): N12 - Tubulo-interstitial nephritis, not specified as acute or chronic Status: Acute (3) Meningioma: Code(s): D32.9 - Benign neoplasm of meninges, unspecified Status: Acute (4) History of infection with vancomycin resistant Enterococcus (VRE): Code(s): Z86.19 - Personal history of other infectious and parasitic diseases Status: Acute (5) Acute encephalopathy: Code(s): G93.40 - Encephalopathy, unspecified Status: Acute Plan Ms. Perez is a 58-year-old female who has past medical history multiple sclerosis, functional quadriplegia, dementia with depression and behavioral disturbance, schizoaffective disorder, chronic anemia, solitary kidney status post renal carcinoma asthma, COPD, hypertension, history of ESBL UTI, hypertension, history of DVT on Eliquis, GERD presents from correction with altered mental status.? She was just discharged on January 09 facility due to delirium and failure to thrive and sepsis of unknown origin.? She is a resident of [facility] she was noted to have a fever and be altered.? In the [place] ER she has been refusing to take medications.? This has been a problem with her before.? She denies any other concerns.? Presents with leukocytosis anion gap metabolic acidosis, CT abdomen pelvis with contrast demonstrating left-sided pyelitis which was seen on last admission.? 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 Started on meropenem and Zyvox.? Case discussed with Urology from the ER. #Sepsis secondary to pyelonephritis -monitor tachycardia and leukocytosis. On 01/19 they are persistent. Check procalcitonin and attempt to restart her home dose metoprolol. -blood cultures pending, no growth to date. -due to the patient's anatomical status unable to obtain urine samples. If patient declines urology you may have to intervene. There were notified in the ER. -meropenem and Zyvox started on admission on 01/17/2024. Continue these. History of ESBL and VRE. #Acute encephalopathy with history of dementia depression and schizoaffective disorder -she appears more cantankerous than altered. Unclear if this is a schizoaffective disorder presentation with dementia and behavioral disturbance or an acute/metabolic encephalopathy. -morning of 01/20/2024 he is complaining of shortness of breath and repetitively asking for pineapple juice. History is difficult to obtain otherwise. Her lung sounds are clear and CTA of the chest does not demonstrated PE. Demonstrating atelectasis and a small pleural effusion. Incentive spirometer has been ordered. Diallo p.r.n. she is on room air -her Seroquel and metoprolol have been restarted. She is having some tachycardia and disorganized thinking. Have not restarted her whole home med list as that may turn her away taking her meds. Hopefully she will take metoprolol and her nightly Seroquel. Plan for PEG tube tomorrow with GI 01/20: patient is alert, not oriented x3, patient is able to answer questions, mental status is at baseline #Metabolic acidosis -multifactorial. Starvation ketoacidosis plus hypochloremic acidosis. Slowly improving status post D5 normal saline start sodium bicarbonate p.o. follow-up ABG consult orthotic finish grinding technician for evaluation treatment #acute hypokalemia -likely due to poor oral intake. received KCl to the D5 normal saline and recheck BMP tonight. add potassium chloride 40 mEq powder via G-tube feeding daily #Starvation ketoacidosis/malnutrition/electrolyte abnormalities/ hypophosphatemia -due to patient's unwillingness to eat. Guardian has requested PEG tube. This is to be done on Sunday with Dr. Sosa team. Monitor for refeeding syndrome thereafter. -hypokalemia and hypomagnesem
[2024-01-21 08:09] LABS: Glucose Point of Care 100 mg/dl (65-105)
[2024-01-21] MEDS: PANTOPRAZOLE SODIUM IV 40 MG VIAL IV PUSH (09:15)
[2024-01-21] MEDS: LINEZOLID 600 MG/300 ML 600 MG/300 ML SOLN 300 MG IVPB (09:16)
[2024-01-21 09:50] LABS: Blood Urea Nitrogen < 2 mg/dL (7-17)
--- NOTE | 2024-01-21 11:00 | PC.NURSE ---
To GI Lab per FLORENCE juarez R forearm x2. Report given to Anton ALEJANDRO.
[2024-01-21] MEDS: LACTATED RINGERS 1,000 ML 150 ML IV CONT (11:11)
--- NOTE | 2024-01-21 11:30 | SUR.PREOP ---
No ancef per Dr. Sosa.
--- NOTE | 2024-01-21 11:49 | WPDANESEPPF ---
Anes - Initial Pre Proc Eval Procedure: Operation Date: 01/21/24 15:00 Proposed Procedures p Percutaneous Endoscopic Gastrostomy - Jesús Oliver MD Date/Time: 01/21/24 11:49 Surgeon: Martha Malone MD Pre Op Diagnosis: Sepsis, L pyelonephritis, MS Patient Data Age: 58 Gender: F Height: 1.6 m Weight: 64.2 kg Last Vital Signs Temp 96.7 F L 01/21/24 11:13 Pulse 111 H 01/21/24 11:13 Resp 20 01/21/24 11:13 BP 150/109 H 01/21/24 11:13 Pulse Ox 100 01/21/24 11:13 O2 Del Method Room Air 01/21/24 11:13 Allergies Allergy/AdvReac Type Severity Reaction Status Date / Time No Known Allergies Allergy Verified 01/21/24 11:07 Home Medications Medication Instructions Recorded Confirmed Type acetaminophen 650 mg PO Q4H PRN Pain 12/17/22 01/17/24 History cholecalciferol (vitamin D3) 1,000 units PO DAILY 12/17/22 01/17/24 History famotidine 20 mg tablet 20 mg PO BID 12/17/22 01/17/24 History hydrocortisone 5 mg tablet 5 mg PO DAILY 12/17/22 01/17/24 History ipratropium bromide 0.02 % 1 ml inhalation DAILY PRN 12/17/22 01/17/24 History solution for inhalation Shortness Of Breath lactulose 10 gram/15 mL oral 10 ml PO BID 12/17/22 01/17/24 History solution metoprolol tartrate 50 mg tablet 50 mg PO BID 12/17/22 01/17/24 History ondansetron 4 mg disintegrating 4 mg translingual QID PRN Nausea 12/17/22 01/17/24 History tablet And Vomiting polyethylene glycol 3350 17 g PO DAILY Constipation 12/17/22 01/17/24 History potassium chloride 20 mEq oral 20 meq PO DAILY 12/17/22 01/17/24 History packet trazodone 50 mg tablet 50 mg PO HS 12/17/22 01/17/24 History hydrocodone 5 mg-acetaminophen 325 1 tablet PO Q6H PRN Pain 07/27/23 01/17/24 History mg tablet megestrol 400 mg/10 mL (40 mg/mL) 400 mg PO BID 07/27/23 01/17/24 History oral suspension sennosides 8.6 mg tablet (senna) 8.6 mg PO DAILY PRN Constipation 07/27/23 01/17/24 History apixaban 5 mg tablet (Eliquis) 5 mg PO Q12HR #60 tabs 08/22/23 01/17/24 Rx pantoprazole 40 mg tablet,delayed 40 mg PO QAM #60 tabs 08/22/23 01/17/24 Rx release amino acids-protein hydrolysate 17 See Rx Instructions .Route .COMPLEX 10/17/23 01/17/24 History gram-100 kcal/30 mL oral liquid (Pro-Stat AWC) citalopram 20 mg tablet 20 mg PO HS 10/17/23 01/17/24 History Laboratory Tests 01/20/24 01/20/24 01/20/24 11:48 14:45 22:50 WBC RBC Hgb Hct MCV MCH MCHC RDW Plt Count MPV Immature Gran % (Auto) Neut % (Auto) Lymph % (Auto) [place] % (Auto) Eos % (Auto) Baso % (Auto) Lymph # (Auto) [place] # (Auto) Eos # (Auto) Baso # (Auto) Abs Immat Gran (auto) Absolute Neuts (auto) Absolute Nucleated RBC Nucleated RBC % Sodium 145 mmol/L (137-145) Potassium 3.0 L mmol/L (3.4-5.0) Chloride 128 H mmol/L (98-107) Carbon Dioxide 10 L mmol/L (22-30) Anion Gap 7 mmol/L (4-12) BUN 2 L mg/dL (7-17) Creatinine 0.50 L mg/dL (0.7-1.0) Estim Creat Clear Calc 86 ml/min Estimated GFR > 60 (59 - ) Glucose 119 H mg/dL (65-110) POC Capillary Glucose 125 H mg/dl (65-105) Calcium 8.5 mg/dL (8.4-10.2) Phosphorus Magnesium Procalcitonin Influenza A (RT-PCR) Negative (Negative) Influenza B (RT-PCR) Negative (Negative) RSV (RT-PCR) Negative (Negative) SARS-CoV-2 RNA (RT-PCR) Negative (Negative) 04/22/24 04/22/24 04/22/24 05:17 05:58 08:02 WBC 10.9 H K/mm3 (4.5-10.0) RBC 4.13 L M/mm3 (4.2-5.4) Hgb 10.5 L g/dL (12.0-
--- NOTE | 2024-01-21 13:04 | PC.NURSE ---
Returned from GI Lab. Report received from Anton ALEJANDRO.
[2024-01-21 13:39] LABS: Glucose Point of Care 83 mg/dl (65-105)
--- NOTE | 2024-01-21 15:01 | PCNFU ---
Nutrition Follow-Up Complete: Severe protein calorie malnutrition related to chronic loss of appetite, as evidenced by intakes <75% needs >1 month; refusal to eat at least 1 week; weight loss 16%/5 months and 11%<1 month Meet estimated protein energy needs - Tube feeds to start today as patient continues to refuse intake, other than bites Intervention for wounds when intakes improve - Can start Maged flushes when tube feeding is started Goal: Pt current nutrition is NPO, low fiber diet. Nutrition recommendation: Enteral nutrition: Jevity 1.5 @ 20 ml/h; advance 10 ml q 12 hours until goal is reached. Monitoring for refeeding syndrome: Magnesium, phosphorus, potassium. Replace as needed. 200-300 mg thiamine, high potency B Complex, MV/MN daily for refeeding/Wernicke's encephalopathy prevention. Last recorded weight is 64.2 kg. Bowel Motility: BMs not charted Labs Reviewed:BUN <2, Cre 0.5, PO4 1.0 Meds Noted: Zofran, protonix Skin: Stage III pressure: sacrum, BL ischium Additional Notes: PEG was placed today, can start feeding 1900. Discussed with hospitalist, RN re; refeeding risk. Need for slow initiation of tube feeding, electrolyte, vitamin supplementation. Will continue to monitor closely Monitoring intakes, weights, labs, plan of care, supplement tolerance, wounds. Follow up in 3 days
[2024-01-21] MEDS: POTASSIUM CHLORIDE 20 MEQ PACKET (FOR LIQUID) 40 MEQ FEED TUBE (17:07)
[2024-01-21] MEDS: SODIUM BICARBONATE TAB 650 MG TABLET PO (17:07)
[2024-01-21] MEDS: POTASSIUM PHOS,M-BASIC-D-BASIC 20 MMOL in SODIUM CHLORIDE 0.9% IV 250 ML 64.17 MMOL IVPB (17:23)
--- NOTE | 2024-01-21 18:06 | PCRCNOTE ---
Patient refused ABG. RN notified
[2024-01-21 18:29] LABS: Glucose Point of Care 86 mg/dl (65-105)
[2024-01-21] MEDS: traZODone HCL 50 MG TABLET PO (21:45)
[2024-01-21] MEDS: METOPROLOL TARTRATE 50 MG TAB PO (21:45)
[2024-01-21] MEDS: LINEZOLID 600 MG TABLET FEED TUBE (21:45)
[2024-01-22] VITALS (14 sets, daily range): BP systolic 142–164; BP diastolic 70–107; PULSE 80–123; RESP 17–18; TEMP 35.7–36.4; O2SAT 98–100
[2024-01-22 00:15] LABS: Glucose Point of Care 134 mg/dl (65-105)
[2024-01-22] MEDS: MEROPENEM 1 GM/NS 100 ML 1 GM/100 ML BAG IVPB ×3 (06:17→21:20)
--- NOTE | 2024-01-22 07:55 | PM.IMHP ---
H&P: HPI History of Present Illness Date/Time: 01/22/24 07:55 [facility] Past Medical History Medical History (Updated 01/18/24 @ 15:47 by Jesús Oliver MD) Acute encephalopathy Acute on chronic anemia Anemia Anorexia Asthma Calculus of kidney Chronic obstructive pulmonary disease Chronic respiratory failure with hypoxia, on home oxygen therapy Previously documented that the patient is oxygen dependent on 4 L nasal cannula however she denies and is on room air with good SpO2 as of 07/27/2023. Colitis COPD (chronic obstructive pulmonary disease) Dementia Depression Essential (primary) hypertension Extended spectrum beta lactamase (ESBL) resistance Fecal impaction Functional quadriplegia secondary to MS Generalized anxiety disorder GI bleed HTN (hypertension) Hyperlipidemia LEOLA (iron deficiency anemia) Intestinal obstruction Malignant neoplasm of right kidney Malnutrition MRSA infection Multiple sclerosis Multiple sclerosis Overactive bladder Pulmonary embolism (2014) Pyelonephritis Retained ureteral stent Schizoaffective disorder Schizophrenia Ureteral stent present Urinary retention Urinary tract infection due to extended-spectrum beta lactamase (ESBL) producing Escherichia coli Xanthogranulomatous pyelonephritis Surgical History Surgical History History of nephrostomy History of removal of ureteral stent 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 History of tubal ligation Family History Family History Mother Family history of multiple sclerosis Hypertension Father Patient's father is Social History Social History Social History: Patient is a ramos of the [facility]. Her guardian is Abe Burnham ([phone]). Code status: Full code. Smoking packs per day: 0.5 Smoking cigarettes per day: 10.0 Years smoked: 1 Smoking pack-years: 0.50 Smoking status: Never smoker Tobacco type: cigarettes Second hand tobacco smoke exposure: No Alcohol intake: unknown Substance use: unknown Do You Feel Safe in your Home?: No Lack of Transportation: No Lack of Food: Never True Current Housing: I Have Housing Concerned About Future Housing: No Difficulty Paying Gas/Electric Bills: No Difficulty Paying for Meds: No Currently Unemployed: No Education: High School Diploma/GED Difficulty w/ Childcare or Family Care: No Living arrangements: halfway Additional living arrangements comments: 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ion: other Additional occupation/education comments: Disabled Spiritual care concerns: No Agree to blood products: Yes Meds Home Medications and Allergies Home Medications Medication Instructions Recorded Confirmed Type acetaminophen 650 mg PO Q4H PRN Pain 12/17/22 01/17/24 History cholecalciferol (vitamin D3) 1,000 units PO DAILY 12/17/22 01/17/24 History famotidine 20 mg tablet 20 mg PO BID 12/17/22 01/17/24 History hydrocortisone 5 mg tablet 5 mg PO DAILY 12/17/22 01/17/24 History ipratropium bromide 0.02 % 1 ml inhalation DAILY PRN 12/17/22 01/17/24 History solution for inhalation Shortness Of Breath lactulose 10 gram/15 mL oral 10 ml PO BID 12/17/22 01/17/24 History solution metoprolol tartrate 50 mg tablet 50 mg PO BID 12/17/22 01/17/24 History ondansetron 4 mg disintegrating 4 mg translingual QID PRN Nausea 12/17/22 01/17/24 History tablet And Vomiting polyethylene glycol 3350 17 g PO DAILY Constipation 12/17/22 01/17/24 History potassium chloride 20 mEq oral 20 meq PO DAILY 12/17/22 01/17/24 History packet trazodone 50 mg tablet 50 mg PO HS 12/17/22 01/17/24 History hydrocodone 5 mg-acetaminophen 325 1 tablet PO Q6H PRN Pain 07/27/23 01/17/24 History mg table
[2024-01-22 08:10] LABS: Glucose Point of Care 117 mg/dl (65-105)
[2024-01-22] MEDS: LINEZOLID 600 MG TABLET FEED TUBE ×2 (08:19→21:20)
[2024-01-22] MEDS: MULTIVIT W/ IRON, MINERALS 15 ML LIQUID (*BKC) FEED TUBE (08:19)
[2024-01-22] MEDS: PANTOPRAZOLE SODIUM IV 40 MG VIAL IV PUSH (08:19)
[2024-01-22] MEDS: THIAMINE HCL 100 MG TABLET 300 MG FEED TUBE (08:19)
[2024-01-22] MEDS: METOPROLOL TARTRATE 50 MG TAB PO ×2 (08:19→21:21)
[2024-01-22] MEDS: POTASSIUM CHLORIDE 20 MEQ PACKET (FOR LIQUID) 40 MEQ FEED TUBE (08:19)
[2024-01-22] MEDS: SODIUM BICARBONATE TAB 650 MG TABLET PO ×3 (08:19→17:37)
[2024-01-22] MEDS: VITAMIN B COMPLEX CAPSULE 1 CAP FEED TUBE (08:19)
[2024-01-22] MEDS: KCL 40 MEQ/D5/0.9% SOD CHL 1,000 ML 100 ML IV CONT ×2 (08:20→17:49)
--- NOTE | 2024-01-22 08:53 | P.PNAN_ITS ---
Anes - Prog Note Post-Op Date/Time: 01/22/24 08:53 Cardiovascular status: normal Respiratory status: normal Airway patency: baseline Mental status: baseline Post-Op hydration status: normal Vital Signs: Last Vital Signs Temp 36.0 C L 01/22/24 04:03 Pulse 85 01/22/24 08:19 Resp 18 01/22/24 04:03 BP 152/85 H 01/22/24 04:03 Pulse Ox 100 01/22/24 04:03 O2 Del Method Room Air 01/21/24 12:50 Pain Score (VAS): 11/10 I/O: Intake & Output 01/21/24 01/22/24 01/22/24 23:59 07:59 15:59 Intake Total 1098.3 100 Output Total 300 800 Balance 798.3 -700 01/21/24 01/21/24 01/21/24 05:17 13:14 18:26 WBC RBC Hgb Hct MCV MCH MCHC RDW Plt Count MPV Immature Gran % (Auto) Neut % (Auto) Lymph % (Auto) [place] % (Auto) Eos % (Auto) Baso % (Auto) Lymph # (Auto) [place] # (Auto) Eos # (Auto) Baso # (Auto) Abs Immat Gran (auto) Absolute Neuts (auto) Absolute Nucleated RBC Nucleated RBC % Sodium Potassium Chloride Carbon Dioxide Anion Gap BUN < 2 L Creatinine Estim Creat Clear Calc Estimated GFR Glucose POC Capillary Glucose 83 86 Calcium Phosphorus Total Bilirubin AST ALT Alkaline Phosphatase Total Protein Albumin 01/22/24 01/22/24 01/22/24 00:11 08:01 08:35 WBC Pending RBC Pending Hgb Pending Hct Pending MCV Pending MCH Pending MCHC Pending RDW Pending Plt Count Pending MPV Pending Immature Gran % (Auto) Pending Neut % (Auto) Pending Lymph % (Auto) Pending [place] % (Auto) Pending Eos % (Auto) Pending Baso % (Auto) Pending Lymph # (Auto) Pending [place] # (Auto) Pending Eos # (Auto) Pending Baso # (Auto) Pending Abs Immat Gran (auto) Pending Absolute Neuts (auto) Pending Absolute Nucleated RBC Pending Nucleated RBC % Pending Sodium Pending Potassium Pending Chloride Pending Carbon Dioxide Pending Anion Gap Pending BUN Pending Creatinine Pending Estim Creat Clear Calc Pending Estimated GFR Pending Glucose Pending POC Capillary Glucose 134 H 117 H Calcium Pending Phosphorus Pending Total Bilirubin Pending AST Pending ALT Pending Alkaline Phosphatase Pending Total Protein Pending Albumin Pending Post-procedural complaints: none Patient Feedback: Patient satisfied with anesthetic care.
[2024-01-22 08:54] LABS: Basophils Absolute Auto 0.1 K/mm3 (0.0-0.1); Basophils Percent Auto 0.7 % (0.2-1.2); Eosinophils Absolute Auto 0.5 K/mm3 (0-0.3); Eosinophils Percent Auto 4.9 % (0-4.4); Hematocrit 31.2 % (37.0-47.0); Hemoglobin 9.7 g/dL (12.0-15.0); Immature Granulocyte Absolute 0.04 K/mm3 (0.00-0.031); Immature Granulocyte Percent A 0.4 % (0-0.5); Lymphocytes Absolute Auto 1.88 K/mm3 (0.9-3.2); Lymphocytes Percent Auto 18.9 % (18.3-44.2); Mean Corpuscular HGB Conc 31.1 g/dl (32-36); Mean Corpuscular Hemoglobin 25.5 pg (26-34); Mean Corpuscular Volume 81.9 fl (80-100); Monocytes Absolute Auto 0.6 K/mm3 (0.1-0.6); Monocytes Percent Auto 6.2 % (2.6-8.5); Neutrophils Absolute Auto 6.9 K/mm3 (1.3-6.7); Neutrophils Percent Auto 68.9 % (45.5-73.1); Platelet Count Result 387 k/mm3 (150-375); Red Blood Count 3.81 M/mm3 (4.2-5.4); Red Cell Distribution Width 19.3 % (11.5-14.5)
[2024-01-22 09:02] LABS: Bilirubin,Total 0.7 mg/dL (0.2-1.3); Estimated CRCL calculation 96 ml/min; Estimated Glomerular Filt Rate > 60; Phosphorus 1.7 mg/dL (2.5-4.5)
[2024-01-22 09:03] LABS: Alanine Aminotransferase 15 U/L (6-35); Albumin Level 2.6 g/dL (3.5-5.1); Alkaline Phosphatase 129 U/L (38-126); Anion Gap 2 mmol/L (4-12); Blood Urea Nitrogen 2 mg/dL (7-17); Carbon Dioxide 13 mmol/L (22-30); Chloride 126 mmol/L (98-107); Glucose 114 mg/dL (65-110); Sodium 141 mmol/L (137-145)
[2024-01-22 09:04] LABS: Calcium 8.5 mg/dL (8.4-10.2)
--- NOTE | 2024-01-22 10:44 | PCNFU ---
Nutrition Follow-Up Complete: Severe protein calorie malnutrition related to chronic loss of appetite, as evidenced by intakes <75% needs >1 month; refusal to eat at least 1 week; weight loss 16%/5 months and 11%<1 month Goal: Meet estimated protein energy needs Intervention for wounds when intakes improve Patient will continue current goal. Pt current nutrition is Jevity 1.2 at 20 ml/hr with Low Fiber diet. Nutrition recommendation: Maged BID for wound healing. Last recorded weight is 68.3 kg, unsure of bed scale accuracy. Weight on admit: 56.6 kg. Bowel Motility: No BM reported. Labs Reviewed: Alb 2.6,Cr 0.5, PO4 1.7 Meds Noted:Protonix, Vit B, Thiamine, MVI Skin: Stage III-sacrum and bilateral ischium. Additional Notes: Patient started on tube feedings of Jevity 1.5 at 20 ml/hr. 80 ml residual reported by nursing. Plans to advance to 30 ml/hr today. Lab unable to get K and Mg. PO4 has increased from 1.0 to 1.7 today. Diet order is for Low Fiber diet if patient is interested in oral feedings. MD orders for Maged BID for wound healing. Plans to advance tube feedings q 12 hours to goal rate of 50 ml/hr. Flush 150 ml q 4 hours. Agree with diet orders. Monitoring intakes, weights, labs, plan of care, supplement tolerance, wounds. Follow up every Sunday and Sunday.
--- NOTE | 2024-01-22 12:21 | PM.CNNEP ---
Assessment and Plan Assessment and plan (1) Hypokalemia: Code(s): E87.6 - Hypokalemia Status: Acute Assessment and Plan: suspect due to poor oral intake possibly worsened by total body store depletion hopefully should improve once tube feeds inititated K+ supplementation as needed follow trend (2) Hypophosphatemia: Code(s): E83.39 - Other disorders of phosphorus metabolism Status: Acute Assessment and Plan: suspect related to poor oral intake much like potassium, could have an element of total body store depletion supplementation via G-tube initiated along with tube feeds follow trend (3) Metabolic acidosis: Code(s): E87.20 - Acidosis, unspecified Status: Acute Assessment and Plan: likely secondary to starvation ketoacidosis positive BHOB noted on sodium bicarbonate supplements to compensate follow CO2 levels (4) Altered mental status: Code(s): R41.82 - Altered mental status, unspecified Status: Acute Assessment and Plan: difficult to fully assess has underlying dementia as well as psychiatric issues as well follow mentation (5) Pyelitis: Code(s): N12 - Tubulo-interstitial nephritis, not specified as acute or chronic Status: Acute Assessment and Plan: known history as noted on last hospitalization earlier this month continue antibiotic therapy I will continue to follow the patient with you while she remains hospitalized and make further recommendations as deemed necessary. Thank you for allowing me to participate in the care of this patient. History of Present Illness Reason for Consult Consult date: 01/22/24 Reason for consult: hypokalemia, metabolic acidosis and Other (hypophosphatemia) Chief Complaint Chief complaint: Sepsis, L pyelonephritis, MS History of Present Illness Narrative: The patient is a 58-year-old female with extensive past medical history as outlined below who presented to [facility] Emergency Room for further evaluation of altered mental status. The patient was just recently discharged from [facility] earlier this month due to delirium, failure to thrive, and sepsis without a clear etiology. She responded to medical therapy during that hospital stay prior to discharge back to her nursing facility. Apparently, nursing staff noted the patient having a fever and was more confused at her baseline. Given her complex medical history as outlined, she was transferred to the ER for further assessment. Workup and evaluation in the emergency room demonstrated the patient to be hemodynamically stable if not hypertensive in association with tachycardia. She refused to take oral medications so IV labetalol was used to control her blood pressure. Subsequent workup and evaluation demonstrated elevated white blood cell count with a anion gap metabolic acidosis. Subsequent CT scan of the abdomen pelvis demonstrated left-sided pyelitis which was noted on last hospitalization as well. Given her altered mental status in association with a fever, appropriate cultures were obtained and she was started empirically on IV antibiotic therapy. Unfortunately, due to her anatomical issues/ contractures, obtaining a urine sample for urinalysis and urine culture was not able to be done urology was consulted from the ER as they had seen her in the past for her left-sided pyelitis but they did not think any intervention needed to be done from their standpoint since her was no evidence of hydronephrosis or complications on the CT scan. It is unclear the etiology of her altered mental status particularly given her complex medical history with regard to schizoaffective disorder, depression, dementia, and behavioral disturbances. She was subsequently admitted to the hospital for further evaluation and therapy. Since her admission, the patient continues to refuse to eat and it was felt that her metaboli
--- NOTE | 2024-01-22 13:11 | PM.IMPN ---
Progress Note: A&P Assessment and Plan (1) Acute encephalopathy: Code(s): G93.40 - Encephalopathy, unspecified Status: Acute (2) Malnutrition: Code(s): E46 - Unspecified protein-calorie malnutrition Status: Acute (3) Pyelitis: Code(s): N12 - Tubulo-interstitial nephritis, not specified as acute or chronic Status: Acute (4) Delirium: Code(s): R41.0 - Disorientation, unspecified Status: Acute (5) History of infection with vancomycin resistant Enterococcus (VRE): Code(s): Z86.19 - Personal history of other infectious and parasitic diseases Status: Acute Plan (1) Malnutrition: ?Code(s): E46 - Unspecified protein-calorie malnutrition ?Status:?Acute (2) Pyelitis: ?Code(s): N12 - Tubulo-interstitial nephritis, not specified as acute or chronic ?Status:?Acute (3) Meningioma: ?Code(s): D32.9 - Benign neoplasm of meninges, unspecified ?Status:?Acute (4) History of infection with vancomycin resistant Enterococcus (VRE): ?Code(s): Z86.19 - Personal history of other infectious and parasitic diseases ?Status:?Acute (5) Acute encephalopathy: ?Code(s): G93.40 - Encephalopathy, unspecified ?Status:?Acute Plan Ms. Perez is a 58-year-old female who has past medical history multiple sclerosis, functional quadriplegia, dementia with depression and behavioral disturbance, schizoaffective disorder, chronic anemia, solitary kidney status post renal carcinoma asthma, COPD, hypertension, history of ESBL UTI, hypertension, history of DVT on Eliquis, GERD presents from long-term with altered mental status.? She was just discharged on January 09 facility due to delirium and failure to thrive and sepsis of unknown origin.? She is a resident of [facility] she was noted to have a fever and be altered.? In the [place] ER she has been refusing to take medications.? This has been a problem with her before.? She denies any other concerns.? Presents with leukocytosis anion gap metabolic acidosis, CT abdomen pelvis with contrast demonstrating left-sided pyelitis which was seen on last admission.? 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 Started on meropenem and Zyvox.? Case discussed with Urology from the ER. #Sepsis secondary to pyelonephritis -monitor tachycardia and leukocytosis.? On 01/19 they are persistent.? Check procalcitonin and attempt to restart her home dose metoprolol. -blood cultures pending, no growth to date. -due to the patient's anatomical status unable to obtain urine samples.? If patient declines urology you may have to intervene.? There were notified in the ER. -meropenem and Zyvox started on admission on 01/17/2024.? Continue these.? History of ESBL and VRE. #Acute encephalopathy with history of dementia depression and schizoaffective disorder -she appears more cantankerous than altered.? Unclear if this is a schizoaffective disorder presentation with dementia and behavioral disturbance or an acute/metabolic encephalopathy. -morning of 01/20/2024 he is complaining of shortness of breath and repetitively asking for pineapple juice.? History is difficult to obtain otherwise.? Her lung sounds are clear and CTA of the chest does not demonstrated PE.? Demonstrating atelectasis and a small pleural effusion.? Incentive spirometer has been ordered.? Albinobs p.r.n. she is on room air -her Seroquel and metoprolol have been restarted.? She is having some tachycardia and disorganized thinking.? Have not restarted her whole home med list as that may turn her away taking her meds.? Hopefully she will take metoprolol and her nightly Seroquel.? Plan for PEG tube tomorrow with GI 01/20:? patient is alert, not oriented x3, patient is able to answer questions, mental status is at baseline #Metabolic acidosis -multifactorial.? Starvation ketoacidosis plus hypochloremic acidosis.? Slo
--- NOTE | 2024-01-22 14:41 | WPDGIPROGNO ---
Progress Note: A&P Assessment and Plan (1) Malnutrition: Code(s): E46 - Unspecified protein-calorie malnutrition Status: Acute Assessment and Plan: tolerating tube feeding by g-tube she can also eat as pleasure will follow as needed (2) Multiple sclerosis: Code(s): G35 - Multiple sclerosis Status: Acute (3) Anorexia: Code(s): R63.0 - Anorexia Status: Acute (4) Pyelitis: Code(s): N12 - Tubulo-interstitial nephritis, not specified as acute or chronic Status: Acute Assessment and Plan: on abx (5) Functional quadriplegia secondary to MS: Code(s): G35 - Multiple sclerosis; R53.2 - Functional quadriplegia Status: Acute Assessment and Plan: requires total care Subjective Date/time seen: 01/22/24 14:41 Interval history: peg placement yesterday, tolerating at 30 ml/h Review of Systems Review of Systems: All systems reviewed & are unremarkable except as noted in HPI and below Exam Const: General: comfortable and no acute distress Other: chronically ill appearing HENMT: Face/Nose/Sinus: Normal nares present Eyes: Sclera: sclerae normal Neck: Neck: supple Resp: Effort & Inspection: normal respiratory effort Auscultation: clear to auscultation bilaterally Cardio: Rate: regular rate Rhythm: regular rhythm GI: GI Palp: Yes Soft to palpation and No Tenderness to palpation present (GI) Auscultation: normal bowel sounds Other: G-tube in place Skin: General skin exam: normal color Neuro: Other: quadriplegic, MS Extrem: General: no edema Psych: Affect: Anxious affect present Objective Data Vital Signs Vital Signs: Vital Signs - 24 hr 01/21/24 18:00 01/21/24 16:00 01/21/24 19:45 Temperature 97.8 F 96.8 F L Pulse Rate 60 89 121 H Respiratory Rate 14 18 Blood Pressure 149/102 H 149/91 H Pulse Oximetry 100 100 Oxygen Delivery 01/21/24 21:45 01/21/24 20:00 01/22/24 00:00 Temperature Pulse Rate 119 H 110 H 90 Respiratory Rate Blood Pressure Pulse Oximetry Oxygen Delivery 01/22/24 00:13 01/22/24 04:03 01/22/24 04:00 Temperature 97.1 F L 96.8 F L Pulse Rate 89 85 98 Respiratory Rate 18 18 Blood Pressure 148/92 H 152/85 H Pulse Oximetry 100 100 Oxygen Delivery 01/22/24 08:19 01/22/24 08:19 01/22/24 08:19 Temperature Pulse Rate 85 97 Respiratory Rate Blood Pressure Pulse Oximetry Oxygen Delivery Room Air 01/22/24 10:00 01/22/24 12:00 Temperature 97.6 F Pulse Rate 82 86 Respiratory Rate 18 Blood Pressure 148/80 H Pulse Oximetry 100 Oxygen Delivery Intake/Output Intake/Output: Intake & Output 01/19/24 01/20/24 01/21/24 01/22/24 23:59 23:59 23:59 23:59 Intake Total 4140.4 1895 3800.0 100 Output Total 900 1050 2600 1800 Balance 3240.4 845 1200.0 -1700 Meds/Results Medications: Active Medications Generic Name Dose Route Start Last Admin Trade Name Freq PRN Reason Stop Dose Admin Acetaminophen 650 mg 01/17/24 21:00 Acetaminophen 650 Mg Suppository RECTAL Q6H PRN Mild Pain (1-3) or Fever Dextrose 12.5 gm 01/17/24 21:00 Dextrose 50% 25 Gm/50 Ml Syringe IV PUSH PRN PRN Hypoglycemia Protocol Glucagon 1 mg 01/17/24 21:00 Glucagon For Inj 1 Mg Vial IM PRN PRN Hypoglycemia Protocol Glucose 15 gm 01/17/24 21:00 Glucose Oral Gel 15 Gm Of Glucse In 37.5 Gm Tube PO PRN PRN Hypoglycemia Protocol Dextrose 1,000 mls @ 100 mls/hr 01/17/24 21:00 Dextrose 5% 1,000 Ml IVPB PRN PRN Hypoglycemia Protocol Potassium Chloride/Dextrose/Sod Cl 1,000 mls @ 100 mls/hr 01/20/24 13:40 01/22/24 08:20 Kcl 40 Meq/D5ns IV CONT 100 mls/hr .Q10H MERLYN Administration Meropenem 1 gm in 100 mls @ 200 mls/hr 01/21/24 22:00 01/22/24 13:17 IVPB 01/24/24 14:29 200 mls/hr Q8HR MERLYN Administration Labetalol HCl 20 mg
[2024-01-22 16:27] LABS: Iron 124 ug/dL (37-170)
[2024-01-22 16:34] LABS: Percent Iron Saturation 99 % (20-50)
[2024-01-22 17:11] LABS: Glucose Point of Care 125 mg/dl (65-105)
[2024-01-22 20:15] LABS: Glucose Point of Care 127 mg/dl (65-105)
[2024-01-22] MEDS: traZODone HCL 50 MG TABLET PO (21:20)
[2024-01-22] MEDS: HYDROcodone/acetaminophen (*CRX) 5-325 MG TABLET 1 TAB PO (21:20)
[2024-01-23] VITALS (17 sets, daily range): BP systolic 133–182; BP diastolic 78–100; PULSE 86–120; RESP 16–20; TEMP 35.5–36.6; O2SAT 100
[2024-01-23 00:17] LABS: Glucose Point of Care 88 mg/dl (65-105)
[2024-01-23 05:29] LABS: Glucose Point of Care 111 mg/dl (65-105)
[2024-01-23] MEDS: MEROPENEM 1 GM/NS 100 ML 1 GM/100 ML BAG IVPB ×3 (06:45→21:58)
[2024-01-23] MEDS: KCL 40 MEQ/D5/0.9% SOD CHL 1,000 ML 100 ML IV CONT (06:46)
[2024-01-23] MEDS: LINEZOLID 600 MG TABLET FEED TUBE ×2 (09:10→21:58)
[2024-01-23] MEDS: POTASSIUM CHLORIDE 20 MEQ PACKET (FOR LIQUID) 40 MEQ FEED TUBE (09:10)
[2024-01-23] MEDS: MULTIVIT W/ IRON, MINERALS 15 ML LIQUID (*BKC) FEED TUBE (09:10)
[2024-01-23] MEDS: THIAMINE HCL 100 MG TABLET 300 MG FEED TUBE (09:10)
[2024-01-23] MEDS: VITAMIN B COMPLEX CAPSULE 1 CAP FEED TUBE (09:10)
[2024-01-23] MEDS: SODIUM BICARBONATE TAB 650 MG TABLET PO ×3 (09:10→18:39)
[2024-01-23] MEDS: METOPROLOL TARTRATE 50 MG TAB PO ×2 (09:10→21:58)
[2024-01-23] MEDS: PANTOPRAZOLE SODIUM IV 40 MG VIAL IV PUSH (09:10)
--- NOTE | 2024-01-23 09:12 | PM.IMPN ---
Progress Note: A&P Assessment and Plan (1) Acute encephalopathy: Code(s): G93.40 - Encephalopathy, unspecified Status: Acute (2) Malnutrition: Code(s): E46 - Unspecified protein-calorie malnutrition Status: Acute (3) Pyelitis: Code(s): N12 - Tubulo-interstitial nephritis, not specified as acute or chronic Status: Acute (4) Delirium: Code(s): R41.0 - Disorientation, unspecified Status: Acute (5) History of infection with vancomycin resistant Enterococcus (VRE): Code(s): Z86.19 - Personal history of other infectious and parasitic diseases Status: Acute (6) Hyperkalemia: Code(s): E87.5 - Hyperkalemia Status: Acute Plan (1) Malnutrition: ?Code(s): E46 - Unspecified protein-calorie malnutrition ?Status:?Acute (2) Pyelitis: ?Code(s): N12 - Tubulo-interstitial nephritis, not specified as acute or chronic ?Status:?Acute (3) Meningioma: ?Code(s): D32.9 - Benign neoplasm of meninges, unspecified ?Status:?Acute (4) History of infection with vancomycin resistant Enterococcus (VRE): ?Code(s): Z86.19 - Personal history of other infectious and parasitic diseases ?Status:?Acute (5) Acute encephalopathy: ?Code(s): G93.40 - Encephalopathy, unspecified ?Status:?Acute Plan Ms. Perez is a 58-year-old female who has past medical history multiple sclerosis, functional quadriplegia, dementia with depression and behavioral disturbance, schizoaffective disorder, chronic anemia, solitary kidney status post renal carcinoma asthma, COPD, hypertension, history of ESBL UTI, hypertension, history of DVT on Eliquis, GERD presents from longterm with altered mental status.? She was just discharged on January 09 facility due to delirium and failure to thrive and sepsis of unknown origin.? She is a resident of [facility] she was noted to have a fever and be altered.? In the [place] ER she has been refusing to take medications.? This has been a problem with her before.? She denies any other concerns.? Presents with leukocytosis anion gap metabolic acidosis, CT abdomen pelvis with contrast demonstrating left-sided pyelitis which was seen on last admission.? 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 Started on meropenem and Zyvox.? Case discussed with Urology from the ER. #Sepsis secondary to pyelonephritis -monitor tachycardia and leukocytosis.? On 01/19 they are persistent.? Check procalcitonin and attempt to restart her home dose metoprolol. -blood cultures pending, no growth to date. -due to the patient's anatomical status unable to obtain urine samples.? If patient declines urology you may have to intervene.? There were notified in the ER. -meropenem and Zyvox started on admission on 01/17/2024.? Continue these.? History of ESBL and VRE. 01/22: continue Zyvox and meropenem IV #Acute encephalopathy with history of dementia depression and schizoaffective disorder -she appears more cantankerous than altered.? Unclear if this is a schizoaffective disorder presentation with dementia and behavioral disturbance or an acute/metabolic encephalopathy. -morning of 01/20/2024 he is complaining of shortness of breath and repetitively asking for pineapple juice.? History is difficult to obtain otherwise.? Her lung sounds are clear and CTA of the chest does not demonstrated PE.? Demonstrating atelectasis and a small pleural effusion.? Incentive spirometer has been ordered.? DuoNebs p.r.n. she is on room air -her Seroquel and metoprolol have been restarted.? She is having some tachycardia and disorganized thinking.? Have not restarted her whole home med list as that may turn her away taking her meds.? Hopefully she will take metoprolol and her nightly Seroquel.? Plan for PEG tube tomorrow with GI 01/20:? patient is alert, not oriented x3, patient is able to answer questions, mental stat
[2024-01-23] MEDS: LABETALOL HCL INJ 100 MG/20 ML VIAL 20 MG IV PUSH (12:27)
[2024-01-23 12:39] LABS: Glucose Point of Care 113 mg/dl (65-105)
[2024-01-23 14:49] LABS: Alanine Aminotransferase 14 U/L (6-35); Albumin Level 2.9 g/dL (3.5-5.1); Alkaline Phosphatase 152 U/L (38-126); Anion Gap 4 mmol/L (4-12); Aspartate Amino Transferase 19 U/L (14-36); Bilirubin,Total 0.6 mg/dL (0.2-1.3); Blood Urea Nitrogen 19 mg/dL (7-17); Carbon Dioxide 17 mmol/L (22-30); Chloride 121 mmol/L (98-107); Estimated CRCL calculation 73 ml/min; Estimated Glomerular Filt Rate > 60; Glucose 115 mg/dL (65-110); Magnesium 1.7 mg/dL (1.6-2.3); Phosphorus 1.2 mg/dL (2.5-4.5); Potassium 6.9 mmol/L (3.4-5.0); Sodium 142 mmol/L (137-145)
--- NOTE | 2024-01-23 14:52 | P.PNNP_ITS ---
Progress Note: A&P Assessment and Plan (1) Hypokalemia: Code(s): E87.6 - Hypokalemia Status: Acute Assessment and Plan: * suspect due to poor oral intake * possibly worsened by total body store depletion * now with hyperkalemia this AM * s/p medical management today * follow trend of repeat K+ levels (2) Hypophosphatemia: Code(s): E83.39 - Other disorders of phosphorus metabolism Status: Acute Assessment and Plan: * suspect related to poor oral intake * much like potassium, could have an element of total body store depletion * supplementation via G-tube initiated along with tube feeds * follow trend (3) Metabolic acidosis: Code(s): E87.20 - Acidosis, unspecified Status: Acute Assessment and Plan: * improving * likely secondary to starvation ketoacidosis * positive BHOB noted * on sodium bicarbonate supplements to compensate * follow CO2 levels (4) Altered mental status: Code(s): R41.82 - Altered mental status, unspecified Status: Acute Assessment and Plan: * difficult to fully assess * has underlying dementia as well as psychiatric issues as well * follow mentation (5) Pyelitis: Code(s): N12 - Tubulo-interstitial nephritis, not specified as acute or chronic Status: Acute Assessment and Plan: * known history as noted on last hospitalization earlier this month * continue antibiotic therapy Will continue to follow. Subjective Date/time seen: 01/23/24 14:52 Interval history: Follow-up for hypokalemia, hypophosphatemia, and metabolic acidosis. Significant issues/problems maintaining IV access and getting blood for testing; now noted to have hyperkalemia (presumably due to IVF with potassium coupled with oral K+ supplementation) by recent labs - medical management ordered (lokelma, D50 + insulin, IV bicarb, and IV calcium pinky with albuterol neb); IV access is problematic as well; no real change in mentation. Exam Narrative: General: somewhat ill appearing female in NAD but confused Heart: normal S1 and S2; no rub Lungs: clear to auscultation Abdomen: soft, nontender, nondistended, positive bowel sounds Extremities: no cyanosis or clubbing; no edema Skin: warm and intact Objective Data Vital Signs Vital Signs: Vital Signs Temp Pulse Resp BP Pulse Ox O2 Del Method 01/23/24 14:25 92 20 01/23/24 14:00 97.6 F 98 20 176/82 H 100 01/23/24 12:27 90 01/23/24 08:00 105 H 01/23/24 09:10 Room Air 01/23/24 09:10 86 01/23/24 10:00 97.8 F 99 20 182/100 H 100 01/23/24 04:00 95 01/23/24 00:00 99 01/22/24 20:00 108 H 01/23/24 04:02 96.8 F L 105 H 18 180/98 H 100 01/23/24 00:04 96.7 F L 108 H 18 154/98 H 100 01/22/24 21:21 123 H 01/22/24 21:14 145/70 H 01/22/24 19:26 96.3 F L 110 H 18 164/107 H 100 01/22/24 18:00 97.6 F 84 18 142/74 H 98 Intake/Output Intake/Output: Intake & Output 01/20/24 01/21/24 01/22/24 01/23/24 23:59 23:59 23:59 23:59 Intake Total 1895 3800.0 2893.3 1945 Output Total 1050 2600 3450 800 Balance 845 1200.0 -556.7 1145
--- NOTE | 2024-01-23 14:52 | PM.PNNEP ---
Progress Note: A&P Assessment and Plan (1) Hypokalemia: Code(s): E87.6 - Hypokalemia Status: Acute Assessment and Plan: suspect due to poor oral intake possibly worsened by total body store depletion now with hyperkalemia this AM s/p medical management today follow trend of repeat K+ levels (2) Hypophosphatemia: Code(s): E83.39 - Other disorders of phosphorus metabolism Status: Acute Assessment and Plan: suspect related to poor oral intake much like potassium, could have an element of total body store depletion supplementation via G-tube initiated along with tube feeds follow trend (3) Metabolic acidosis: Code(s): E87.20 - Acidosis, unspecified Status: Acute Assessment and Plan: improving likely secondary to starvation ketoacidosis positive BHOB noted on sodium bicarbonate supplements to compensate follow CO2 levels (4) Altered mental status: Code(s): R41.82 - Altered mental status, unspecified Status: Acute Assessment and Plan: difficult to fully assess has underlying dementia as well as psychiatric issues as well follow mentation (5) Pyelitis: Code(s): N12 - Tubulo-interstitial nephritis, not specified as acute or chronic Status: Acute Assessment and Plan: known history as noted on last hospitalization earlier this month continue antibiotic therapy Will continue to follow. Subjective Date/time seen: 01/23/24 14:52 Interval history: Follow-up for hypokalemia, hypophosphatemia, and metabolic acidosis. Significant issues/problems maintaining IV access and getting blood for testing; now noted to have hyperkalemia (presumably due to IVF with potassium coupled with oral K+ supplementation) by recent labs - medical management ordered (lokelma, D50 + insulin, IV bicarb, and IV calcium pinky with albuterol neb); IV access is problematic as well; no real change in mentation. Exam Narrative: General: somewhat ill appearing female in NAD but confused Heart: normal S1 and S2; no rub Lungs: clear to auscultation Abdomen: soft, nontender, nondistended, positive bowel sounds Extremities: no cyanosis or clubbing; no edema Skin: warm and intact Objective Data Vital Signs Vital Signs: Vital Signs Temp Pulse Resp BP Pulse Ox O2 Del Method 01/23/24 14:25 92 20 01/23/24 14:00 97.6 F 98 20 176/82 H 100 01/23/24 12:27 90 01/23/24 08:00 105 H 01/23/24 09:10 Room Air 01/23/24 09:10 86 01/23/24 10:00 97.8 F 99 20 182/100 H 100 01/23/24 04:00 95 01/23/24 00:00 99 01/22/24 20:00 108 H 01/23/24 04:02 96.8 F L 105 H 18 180/98 H 100 01/23/24 00:04 96.7 F L 108 H 18 154/98 H 100 01/22/24 21:21 123 H 01/22/24 21:14 145/70 H 01/22/24 19:26 96.3 F L 110 H 18 164/107 H 100 01/22/24 18:00 97.6 F 84 18 142/74 H 98 Intake/Output Intake/Output: Intake & Output 01/20/24 01/21/24 01/22/24 01/23/24 23:59 23:59 23:59 23:59 Intake Total 1895 3800.0 2893.3 1945 Output Total 1050 2600 3450 800 Balance 845 1200.0 -556.7 1145 Meds/Results Medications: Active Medications Generic Name Dose Route Start Last Admin Trade Name Freq PRN Reason Stop Dose Admin Acetaminophen 650 mg 01/17/24 21:00 Acetaminophen 650 Mg Suppository RECTAL Q6H PRN Mild Pain (1-3) or Fever Dextrose 12.5 gm 01/17/24 21:00 Dextrose 50% 25 Gm/50 Ml Syringe IV PUSH PRN PRN Hypoglycemia Protocol Glucagon 1 mg 01/17/24 21:00 Glucagon For Inj 1 Mg Vial IM PRN PRN Hypoglycemia Protocol Glucose 15 gm 01/17/24 21:00 Glucose Oral Gel 15 Gm Of Glucse In 37.5 Gm Tube PO PRN PRN Hypoglycemia Protocol Dextrose 1,000 mls @ 100 mls/hr 01/17/24 21:00 Dextrose 5% 1,000 Ml IVPB PRN PRN Hypoglycemia Protocol [place]
--- NOTE | 2024-01-23 15:09 | ECG_ITS ---
SEE SCANNED COPY FOR CONFIRMED REPORT MTDD
[2024-01-23] MEDS: ALBUTEROL SULFATE NEB 2.5 MG/3 ML INH INHALATION (15:25)
[2024-01-23] MEDS: CALCIUM GLUC 1,000 MG/NS 50 ML 1,000 MG/50 ML BAG 100 MG IVPB (16:25)
[2024-01-23] MEDS: INSULIN HUMAN REGULAR (*BKC) 100 UNITS/ML 10 UNITS IV PUSH (16:43)
[2024-01-23] MEDS: DEXTROSE 50% 25 GM/50 ML SYRINGE IV PUSH (16:44)
[2024-01-23] MEDS: SODIUM BICARBONATE 8.4% 50 MEQ/50 ML SYRINGE IV PUSH (16:46)
[2024-01-23] MEDS: SODIUM ZIRCONIUM CYCLOSILICATE 10 GM POWD.PACK PO (16:50)
[2024-01-23 17:35] LABS: Glucose Point of Care 202 mg/dl (65-105)
[2024-01-23 17:39] LABS: Glucose Point of Care 166 mg/dl (65-105)
[2024-01-23 18:52] LABS: Glucose Point of Care 104 mg/dl (65-105)
[2024-01-23 20:33] LABS: Glucose Point of Care 107 mg/dl (65-105)
[2024-01-23] MEDS: traZODone HCL 50 MG TABLET PO (21:58)
--- NOTE | 2024-01-23 22:04 | ECG_ITS ---
SEE SCANNED COPY FOR CONFIRMED REPORT MTDD
[2024-01-23 22:23] LABS: Glucose Point of Care 90 mg/dl (65-105)
[2024-01-23 22:24] LABS: Glucose Point of Care 104 mg/dl (65-105)
[2024-01-24] VITALS (17 sets, daily range): BP systolic 93–121; BP diastolic 61–84; PULSE 87–120; RESP 15–19; TEMP 35.6–37.4; O2SAT 100
[2024-01-24 00:11] LABS: Glucose Point of Care 85 mg/dl (65-105)
--- NOTE | 2024-01-24 01:09 | PC.NURSE ---
Multiple phlebotomists and executive housekeeper were unable to draw blood for ordered labs. Dr Mejia notified potassium was previously critical high and pt received treatment and post-treatment labs could not be drawn. EKG ordered and results given to provider, no further orders at this time.
--- NOTE | 2024-01-24 04:22 | PC.NURSE ---
Pt transferred to ICU6 from [facility] 240, report given to Oliva ALEJANDRO.
--- NOTE | 2024-01-24 04:33 | PC.NURSE ---
This patient, Yesenia Perez, was received from [facility] on 01/24/24 at 0400. Patient/family oriented to unit policies and routines
[2024-01-24 06:22] LABS: Glucose Point of Care 108 mg/dl (65-105)
[2024-01-24] MEDS: MEROPENEM 1 GM/NS 100 ML 1 GM/100 ML BAG IVPB ×2 (06:28→13:36)
--- NOTE | 2024-01-24 08:03 | PM.IMPN ---
Progress Note: A&P Assessment and Plan (1) Acute encephalopathy: Code(s): G93.40 - Encephalopathy, unspecified Status: Acute (2) Malnutrition: Code(s): E46 - Unspecified protein-calorie malnutrition Status: Acute (3) Pyelitis: Code(s): N12 - Tubulo-interstitial nephritis, not specified as acute or chronic Status: Acute (4) Delirium: Code(s): R41.0 - Disorientation, unspecified Status: Acute (5) History of infection with vancomycin resistant Enterococcus (VRE): Code(s): Z86.19 - Personal history of other infectious and parasitic diseases Status: Acute (6) Hyperkalemia: Code(s): E87.5 - Hyperkalemia Status: Acute Plan (1) Malnutrition: ?Code(s): E46 - Unspecified protein-calorie malnutrition ?Status:?Acute (2) Pyelitis: ?Code(s): N12 - Tubulo-interstitial nephritis, not specified as acute or chronic ?Status:?Acute (3) Meningioma: ?Code(s): D32.9 - Benign neoplasm of meninges, unspecified ?Status:?Acute (4) History of infection with vancomycin resistant Enterococcus (VRE): ?Code(s): Z86.19 - Personal history of other infectious and parasitic diseases ?Status:?Acute (5) Acute encephalopathy: ?Code(s): G93.40 - Encephalopathy, unspecified ?Status:?Acute Plan Ms. Perez is a 58-year-old female who has past medical history multiple sclerosis, functional quadriplegia, dementia with depression and behavioral disturbance, schizoaffective disorder, chronic anemia, solitary kidney status post renal carcinoma asthma, COPD, hypertension, history of ESBL UTI, hypertension, history of DVT on Eliquis, GERD presents from alf with altered mental status.? She was just discharged on January 09 facility due to delirium and failure to thrive and sepsis of unknown origin.? She is a resident of [facility] she was noted to have a fever and be altered.? In the [place] ER she has been refusing to take medications.? This has been a problem with her before.? She denies any other concerns.? Presents with leukocytosis anion gap metabolic acidosis, CT abdomen pelvis with contrast demonstrating left-sided pyelitis which was seen on last admission.? 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 Started on meropenem and Zyvox.? Case discussed with Urology from the ER. #Sepsis secondary to pyelonephritis -monitor tachycardia and leukocytosis.? On 01/19 they are persistent.? Check procalcitonin and attempt to restart her home dose metoprolol. -blood cultures pending, no growth to date. -due to the patient's anatomical status unable to obtain urine samples.? If patient declines urology you may have to intervene.? There were notified in the ER. -meropenem and Zyvox started on admission on 01/17/2024.? Continue these.? History of ESBL and VRE. 01/23: continue Zyvox and meropenem IV #Acute encephalopathy with history of dementia depression and schizoaffective disorder -she appears more cantankerous than altered.? Unclear if this is a schizoaffective disorder presentation with dementia and behavioral disturbance or an acute/metabolic encephalopathy. -morning of 01/20/2024 he is complaining of shortness of breath and repetitively asking for pineapple juice.? History is difficult to obtain otherwise.? Her lung sounds are clear and CTA of the chest does not demonstrated PE.? Demonstrating atelectasis and a small pleural effusion.? Incentive spirometer has been ordered.? DuoNebs p.r.n. she is on room air -her Seroquel and metoprolol have been restarted.? She is having some tachycardia and disorganized thinking.? Have not restarted her whole home med list as that may turn her away taking her meds.? Hopefully she will take metoprolol and her nightly Seroquel.? Plan for PEG tube tomorrow with GI 01/20:? patient is alert, not oriented x3, patient is able to answer questions, mental stat
--- NOTE | 2024-01-24 08:39 | PM.CNGS ---
Assessment and Plan Assessment and plan (1) Poor intravenous access: Code(s): Z78.9 - Other specified health status Status: Acute Assessment and Plan: Patient with multiple comorbidities, frequent hospitalizations, and poor venous access. There have been difficulties with blood draws and IV access. They were unable to place a PICC line due to her contracted extremities. Our service has been asked to place a Port-A-Cath for venous access. We will add her onto the surgery schedule tomorrow for insertion of patrick cath. Stop tube feedings at midnight tonight for surgery tomorrow. (2) Hyperkalemia: Code(s): E87.5 - Hyperkalemia Status: Acute (3) Pyelitis: Code(s): N12 - Tubulo-interstitial nephritis, not specified as acute or chronic Status: Acute Assessment and Plan: Currently on IV antibiotics. Initially presented with possible sepsis. Blood cultures were negative. (4) Multiple sclerosis: Code(s): G35 - Multiple sclerosis Status: Acute (5) COPD (chronic obstructive pulmonary disease): Code(s): J44.9 - Chronic obstructive pulmonary disease, unspecified Status: Acute (6) Malnutrition: Code(s): E46 - Unspecified protein-calorie malnutrition Status: Acute Assessment and Plan: Gtube with tube feedings, which will be stopped at midnight. (7) Dementia: Code(s): F03.90 - Unspecified dementia, unspecified severity, without behavioral disturbance, psychotic disturbance, mood disturbance, and anxiety Status: Acute Assessment and Plan: Patient is a ramos of the [facility]. Will have to call her guardian for consent. Plan I have discussed the patient's case and plan of care with Dr. Branham. History of Present Illness Consult details Consult date: 01/24/24 Reason for consult: other (Patrick cath placement) Requesting physician: Isaias León MD Narrative: This is a 58-year-old with multiple sclerosis, functional quadriplegia, dementia, COPD, and multiple other comorbidities, who resides in a fdc and was brought into the ER a week ago with altered mental status. She has been admitted for pyelitis and sepsis. She was recently admitted and discharged only 7 days prior to her readmission. She is frequently hospitalized with at least 4 hospitalizations in the past 6 months. She has been treated for the pyelitis and is currently in the ICU as an IMU overflow patient. Blood cultures have been negative. She has had failure to thrive with G-tube placement during this hospitalization. She is currently on tube feedings. Per nursing staff, she has had issues with venous access and ability to successfully get labs drawn. They have used the venous access nurse who was able to get 1 peripheral IV. They have also had multiple sticks for lab draws during the day. There is concern of hyperkalemia yesterday and she continues to require labs. Today, again they were unable to get labs drawn. She is not a candidate for a PICC line due to her contracted extremities per the venous access nurse. Our service has now been consulted for poor venous access and requesting placement of a Port-A-Cath. She is seen in IMU and has a history of dementia. She is a poor historian and her history is obtained primarily from review of the electronic medical record and discussion with the nursing staff. She is also a ramos of the state with a guardian that they have been contacting for any consent. Review of Systems Review of Systems: ROS unobtainable: Yes unobtainable due to medical condition [facility] Past Medical History Medical History Acute encephalopathy Acute on chronic anemia Anemia Anorexia Anorexia Asthma Calculus of kidney Chronic obstructive pulmonary disease Chronic respiratory failure with hypoxia, on home oxygen therapy Previously documented that the patient is oxygen dependent on 4 L nasal cannu
[2024-01-24] MEDS: METOPROLOL TARTRATE 50 MG TAB PO ×2 (08:45→20:00)
[2024-01-24] MEDS: HYDROcodone/acetaminophen (*CRX) 5-325 MG TABLET 1 TAB FEED TUBE (08:45)
[2024-01-24] MEDS: THIAMINE HCL 100 MG TABLET 300 MG FEED TUBE (08:45)
[2024-01-24] MEDS: LINEZOLID 600 MG TABLET FEED TUBE (08:46)
[2024-01-24] MEDS: PANTOPRAZOLE SODIUM IV 40 MG VIAL IV PUSH (08:46)
[2024-01-24] MEDS: SODIUM BICARBONATE TAB 650 MG TABLET PO ×3 (08:46→20:00)
[2024-01-24 08:51] LABS: Basophils Absolute Auto 0.1 K/mm3 (0.0-0.1); Basophils Percent Auto 0.8 % (0.2-1.2); Eosinophils Absolute Auto 0.6 K/mm3 (0-0.3); Eosinophils Percent Auto 8.1 % (0-4.4); Hematocrit 30.7 % (37.0-47.0); Hemoglobin 9.7 g/dL (12.0-15.0); Immature Granulocyte Absolute 0.02 K/mm3 (0.00-0.031); Immature Granulocyte Percent A 0.3 % (0-0.5); Lymphocytes Absolute Auto 2.19 K/mm3 (0.9-3.2); Lymphocytes Percent Auto 28.8 % (18.3-44.2); Mean Corpuscular HGB Conc 31.6 g/dl (32-36); Mean Corpuscular Hemoglobin 25.7 pg (26-34); Mean Corpuscular Volume 81.2 fl (80-100); Mean Platelet Volume 10.9 fl (7.4-10.4); Monocytes Absolute Auto 0.5 K/mm3 (0.1-0.6); Monocytes Percent Auto 6.6 % (2.6-8.5); Neutrophils Absolute Auto 4.2 K/mm3 (1.3-6.7); Neutrophils Percent Auto 55.4 % (45.5-73.1); Platelet Count Result 318 k/mm3 (150-375); Red Blood Count 3.78 M/mm3 (4.2-5.4); Red Cell Distribution Width 19.1 % (11.5-14.5); White Blood Count 7.6 K/mm3 (4.5-10.0)
[2024-01-24] MEDS: MULTIVIT W/ IRON, MINERALS 15 ML LIQUID (*BKC) FEED TUBE (08:57)
[2024-01-24] MEDS: VITAMIN B COMPLEX CAPSULE 1 CAP FEED TUBE (08:57)
[2024-01-24 09:03] LABS: Alanine Aminotransferase 12 U/L (6-35); Albumin Level 2.4 g/dL (3.5-5.1); Alkaline Phosphatase 142 U/L (38-126); Anion Gap 4 mmol/L (4-12); Aspartate Amino Transferase 18 U/L (14-36); Bilirubin,Total 0.5 mg/dL (0.2-1.3); Blood Urea Nitrogen 30 mg/dL (7-17); Calcium 8.4 mg/dL (8.4-10.2); Carbon Dioxide 19 mmol/L (22-30); Chloride 113 mmol/L (98-107); Estimated CRCL calculation 73 ml/min; Estimated Glomerular Filt Rate > 60; Glucose 111 mg/dL (65-110); Magnesium 1.6 mg/dL (1.6-2.3); Phosphorus 1.2 mg/dL (2.5-4.5); Potassium 4.5 mmol/L (3.4-5.0); Sodium 136 mmol/L (137-145)
[2024-01-24 09:44] LABS: Procalcitonin 0.2 ng/mL
[2024-01-24 12:16] LABS: Glucose Point of Care 101 mg/dl (65-105)
[2024-01-24] MEDS: POTASSIUM/PHOSPHORUS/SODIUM 1.5 GM PACKET 1 PACKET PO (12:38)
--- NOTE | 2024-01-24 14:41 | PM.PNNEP ---
Progress Note: A&P Assessment and Plan (1) Hypokalemia: Code(s): E87.6 - Hypokalemia Status: Acute Assessment and Plan: stabilizing suspect due to poor oral intake possibly worsened by total body store depletion continue supplementation PRN hopefully should maintain itself with ongoing nutrition/tube feeds follow trend of repeat K+ levels (2) Hypophosphatemia: Code(s): E83.39 - Other disorders of phosphorus metabolism Status: Acute Assessment and Plan: slow improvement suspect related to poor oral intake much like potassium, could have an element of total body store depletion supplementation via G-tube initiated along with tube feeds follow trend (3) Metabolic acidosis: Code(s): E87.20 - Acidosis, unspecified Status: Acute Assessment and Plan: improving likely secondary to starvation ketoacidosis positive BHOB noted on sodium bicarbonate supplements to compensate follow CO2 levels (4) Altered mental status: Code(s): R41.82 - Altered mental status, unspecified Status: Acute Assessment and Plan: difficult to fully assess has underlying dementia as well as psychiatric issues as well follow mentation (5) Pyelitis: Code(s): N12 - Tubulo-interstitial nephritis, not specified as acute or chronic Status: Acute Assessment and Plan: known history as noted on last hospitalization earlier this month continue antibiotic therapy Not much else to add -- will continue to follow from a distance. Subjective Date/time seen: 01/24/24 14:41 Interval history: Follow-up for hypokalemia, hypophosphatemia, and metabolic acidosis. No apparent distress noted at the time of my visit; electrolytes stable with exception of ongoing issues with low phosphorus requiring supplementation; acidosis improving with bicarbonate therapy and tube feeds; awake/alert but not willing to answer any questions when seen; seen by Surgery to establish more reliable IV access. Exam Narrative: General: somewhat ill appearing female in NAD but confused Heart: normal S1 and S2; no rub Lungs: clear to auscultation Abdomen: soft, nontender, nondistended, positive bowel sounds Extremities: no cyanosis or clubbing; no edema Skin: no rash or nodules Objective Data Vital Signs Vital Signs: Vital Signs Temp Pulse Resp BP Pulse Ox O2 Del Method 01/24/24 14:00 88 01/24/24 12:00 98.6 F 88 15 104/70 100 01/24/24 12:05 87 01/24/24 12:00 87 17 100 Room Air 01/24/24 08:00 109 H 19 100 Room Air 01/24/24 08:00 99.4 F 109 H 19 116/78 100 01/24/24 10:00 89 01/24/24 08:00 109 H 01/24/24 08:45 110 H 01/24/24 05:57 104 H 01/24/24 04:00 105 H 01/24/24 04:15 98.4 F 102 H 16 107/84 100 01/24/24 04:00 Room Air 01/24/24 02:00 104 H 01/24/24 00:00 100 01/23/24 22:00 119 H 01/23/24 20:00 120 H 01/24/24 01:53 96.1 F L 100 16 121/81 100 01/23/24 21:50 Room Air 01/23/24 21:58 120 H 01/23/24 20:48 96 F L 118 H 16 133/100 H 100 01/23/24 18:00 97.6 F 96 20 172/78 H 100 01/23/24 18:00 89 Intake/Output Intake/Output: Intake & Output 01/21/24 01/22/24 01/23/24 01/24/24 23:59 23:59 23:59 23:59 Intake Total 3800.0 2893.3 3325 2395 Output Total 2600 3450 2800 1450 Balance 1200.0 -556.7 525 945 Meds/Results Medications: Active Medications Generic Name Dose Route Start Last Admin Trade Name Patrickq PRN Reason Stop Dose Admin Acetaminophen 650 mg 01/24/24 08:23 Acetaminophen Elixir 325 Mg/10.15 Ml Udc FEED TUBE Q6H PRN Pain Rated 5 or Less Hydrocodone Bitart/Acetaminophen 1 tab 01/24/24 08:24 01/24/24 08:45 Hydrocodone/Acetaminophen (*Crx) 5-325 Mg Tablet FEED TUBE 1 tab Q6H PRN Administration Pain Rated 6 or Greater Dextrose 12.5 g
--- NOTE | 2024-01-24 14:41 | P.PNNP_ITS ---
Progress Note: A&P Assessment and Plan (1) Hypokalemia: Code(s): E87.6 - Hypokalemia Status: Acute Assessment and Plan: * stabilizing * suspect due to poor oral intake * possibly worsened by total body store depletion * continue supplementation PRN * hopefully should maintain itself with ongoing nutrition/tube feeds * follow trend of repeat K+ levels (2) Hypophosphatemia: Code(s): E83.39 - Other disorders of phosphorus metabolism Status: Acute Assessment and Plan: * slow improvement * suspect related to poor oral intake * much like potassium, could have an element of total body store depletion * supplementation via G-tube initiated along with tube feeds * follow trend (3) Metabolic acidosis: Code(s): E87.20 - Acidosis, unspecified Status: Acute Assessment and Plan: * improving * likely secondary to starvation ketoacidosis * positive BHOB noted * on sodium bicarbonate supplements to compensate * follow CO2 levels (4) Altered mental status: Code(s): R41.82 - Altered mental status, unspecified Status: Acute Assessment and Plan: * difficult to fully assess * has underlying dementia as well as psychiatric issues as well * follow mentation (5) Pyelitis: Code(s): N12 - Tubulo-interstitial nephritis, not specified as acute or chronic Status: Acute Assessment and Plan: * known history as noted on last hospitalization earlier this month * continue antibiotic therapy Not much else to add -- will continue to follow from a distance. Subjective Date/time seen: 01/24/24 14:41 Interval history: Follow-up for hypokalemia, hypophosphatemia, and metabolic acidosis. No apparent distress noted at the time of my visit; electrolytes stable with exception of ongoing issues with low phosphorus requiring supplementation; acidosis improving with bicarbonate therapy and tube feeds; awake/alert but not willing to answer any questions when seen; seen by Surgery to establish more reliable IV access. Exam Narrative: General: somewhat ill appearing female in NAD but confused Heart: normal S1 and S2; no rub Lungs: clear to auscultation Abdomen: soft, nontender, nondistended, positive bowel sounds Extremities: no cyanosis or clubbing; no edema Skin: no rash or nodules Objective Data Vital Signs Vital Signs: Vital Signs Temp Pulse Resp BP Pulse Ox O2 Del Method 01/24/24 14:00 88 01/24/24 12:00 98.6 F 88 15 104/70 100 01/24/24 12:05 87 01/24/24 12:00 87 17 100 Room Air 01/24/24 08:00 109 H 19 100 Room Air 01/24/24 08:00 99.4 F 109 H 19 116/78 100 01/24/24 10:00 89 01/24/24 08:00 109 H 01/24/24 08:45 110 H 01/24/24 05:57 104 H 01/24/24 04:00 105 H 01/24/24 04:15 98.4 F 102 H 16 107/84 100 01/24/24 04:00 Room Air 01/24/24 02:00 104 H 01/24/24 00:00 100 01/23/24 22:00 119 H 01/23/24 20:00 120 H 01/24/24 01:53 96.1 F L 100 16 121/81 100 01/23/24 21:50 Room Air 01/23/24 21:58 120 H 01/23/24 20:48 96 F L 118 H 16 133/100 H 100 01/23/24 18:00 97.6 F 96 20 172/78 H 100 01/23/24 18:00
[2024-01-24 17:06] LABS: Glucose Point of Care 109 mg/dl (65-105)
[2024-01-24] MEDS: traZODone HCL 50 MG TABLET PO (20:00)
[2024-01-25] VITALS (13 sets, daily range): BP systolic 98–112; BP diastolic 59–83; PULSE 100–123; RESP 16–22; TEMP 35.9–37; O2SAT 93–100
[2024-01-25 00:55] LABS: Glucose Point of Care 110 mg/dl (65-105)
[2024-01-25 04:21] LABS: Basophils Absolute Auto 0.1 K/mm3 (0.0-0.1); Basophils Percent Auto 0.5 % (0.2-1.2); Eosinophils Absolute Auto 0.7 K/mm3 (0-0.3); Eosinophils Percent Auto 5.7 % (0-4.4); Hematocrit 31.5 % (37.0-47.0); Hemoglobin 9.7 g/dL (12.0-15.0); Immature Granulocyte Absolute 0.05 K/mm3 (0.00-0.031); Immature Granulocyte Percent A 0.4 % (0-0.5); Lymphocytes Absolute Auto 2.59 K/mm3 (0.9-3.2); Lymphocytes Percent Auto 22.1 % (18.3-44.2); Mean Corpuscular HGB Conc 30.8 g/dl (32-36); Mean Corpuscular Hemoglobin 25.5 pg (26-34); Mean Corpuscular Volume 82.9 fl (80-100); Mean Platelet Volume 10.8 fl (7.4-10.4); Monocytes Absolute Auto 0.6 K/mm3 (0.1-0.6); Monocytes Percent Auto 4.8 % (2.6-8.5); Neutrophils Absolute Auto 7.8 K/mm3 (1.3-6.7); Neutrophils Percent Auto 66.5 % (45.5-73.1); Platelet Count Result 323 k/mm3 (150-375); Red Cell Distribution Width 18.3 % (11.5-14.5); White Blood Count 11.7 K/mm3 (4.5-10.0)
[2024-01-25 04:39] LABS: Alanine Aminotransferase 14 U/L (6-35); Albumin Level 2.8 g/dL (3.5-5.1); Alkaline Phosphatase 164 U/L (38-126); Anion Gap 2 mmol/L (4-12); Aspartate Amino Transferase 20 U/L (14-36); Bilirubin,Total 0.5 mg/dL (0.2-1.3); Blood Urea Nitrogen 44 mg/dL (7-17); Calcium 8.7 mg/dL (8.4-10.2); Carbon Dioxide 24 mmol/L (22-30); Chloride 108 mmol/L (98-107); Estimated CRCL calculation 63 ml/min; Estimated Glomerular Filt Rate > 60; Glucose 88 mg/dL (65-110); Magnesium 1.7 mg/dL (1.6-2.3); Phosphorus 1.7 mg/dL (2.5-4.5); Potassium 4.4 mmol/L (3.4-5.0); Sodium 134 mmol/L (137-145)
--- NOTE | 2024-01-25 06:22 | PC.NURSE ---
Patient moved to 206-2. Report give to Fran Alexis RN.
--- NOTE | 2024-01-25 08:30 | PC.NURSE ---
Report given to Lukas in Pre-Op
[2024-01-25] MEDS: PANTOPRAZOLE SODIUM IV 40 MG VIAL IV PUSH (09:00)
--- NOTE | 2024-01-25 09:45 | PM.IMPN ---
Progress Note: A&P Assessment and Plan (1) Acute encephalopathy: Code(s): G93.40 - Encephalopathy, unspecified Status: Acute (2) Malnutrition: Code(s): E46 - Unspecified protein-calorie malnutrition Status: Acute (3) Pyelitis: Code(s): N12 - Tubulo-interstitial nephritis, not specified as acute or chronic Status: Acute (4) Delirium: Code(s): R41.0 - Disorientation, unspecified Status: Acute (5) History of infection with vancomycin resistant Enterococcus (VRE): Code(s): Z86.19 - Personal history of other infectious and parasitic diseases Status: Acute (6) Hyperkalemia: Code(s): E87.5 - Hyperkalemia Status: Acute Plan (1) Malnutrition: ?Code(s): E46 - Unspecified protein-calorie malnutrition ?Status:?Acute (2) Pyelitis: ?Code(s): N12 - Tubulo-interstitial nephritis, not specified as acute or chronic ?Status:?Acute (3) Meningioma: ?Code(s): D32.9 - Benign neoplasm of meninges, unspecified ?Status:?Acute (4) History of infection with vancomycin resistant Enterococcus (VRE): ?Code(s): Z86.19 - Personal history of other infectious and parasitic diseases ?Status:?Acute (5) Acute encephalopathy: ?Code(s): G93.40 - Encephalopathy, unspecified ?Status:?Acute Plan Ms. Perez is a 58-year-old female who has past medical history multiple sclerosis, functional quadriplegia, dementia with depression and behavioral disturbance, schizoaffective disorder, chronic anemia, solitary kidney status post renal carcinoma asthma, COPD, hypertension, history of ESBL UTI, hypertension, history of DVT on Eliquis, GERD presents from snf with altered mental status.? She was just discharged on January 09 facility due to delirium and failure to thrive and sepsis of unknown origin.? She is a resident of [facility] she was noted to have a fever and be altered.? In the [place] ER she has been refusing to take medications.? This has been a problem with her before.? She denies any other concerns.? Presents with leukocytosis anion gap metabolic acidosis, CT abdomen pelvis with contrast demonstrating left-sided pyelitis which was seen on last admission.? 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 Started on meropenem and Zyvox.? Case discussed with Urology from the ER. #Sepsis secondary to pyelonephritis -monitor tachycardia and leukocytosis.? On 01/19 they are persistent.? Check procalcitonin and attempt to restart her home dose metoprolol. -blood cultures pending, no growth to date. -due to the patient's anatomical status unable to obtain urine samples.? If patient declines urology you may have to intervene.? There were notified in the ER. -meropenem and Zyvox started on admission on 01/17/2024.? Continue these.? History of ESBL and VRE. completed Zyvox and meropenem IV #Acute encephalopathy with history of dementia depression and schizoaffective disorder -she appears more cantankerous than altered.? Unclear if this is a schizoaffective disorder presentation with dementia and behavioral disturbance or an acute/metabolic encephalopathy. -morning of 01/20/2024 he is complaining of shortness of breath and repetitively asking for pineapple juice.? History is difficult to obtain otherwise.? Her lung sounds are clear and CTA of the chest does not demonstrated PE.? Demonstrating atelectasis and a small pleural effusion.? Incentive spirometer has been ordered.? DuoNebs p.r.n. she is on room air -her Seroquel and metoprolol have been restarted.? She is having some tachycardia and disorganized thinking.? Have not restarted her whole home med list as that may turn her away taking her meds.? Hopefully she will take metoprolol and her nightly Seroquel.? Plan for PEG tube tomorrow with GI 01/20:? patient is alert, not oriented x3, patient is able to answer questions, mental status is
[2024-01-25] MEDS: LACTATED RINGERS 1,000 ML 30 ML IV CONT (10:10)
--- NOTE | 2024-01-25 10:36 | WPDANESEPPF ---
Anes - Initial Pre Proc Eval Procedure: Operation Date: 01/21/24 15:00 Proposed Procedures p Percutaneous Endoscopic Gastrostomy - Jesús Oliver MD Operation Date: 01/25/24 10:30 Proposed Procedures p Insertion Patrick Cath - Luis Eduardo Branham MD Date/Time: 01/25/24 10:36 Surgeon: Martha Malone MD Pre Op Diagnosis: Sepsis, L pyelonephritis, MS Patient Data Age: 58 Gender: F Height: 1.6 m Weight: 65.5 kg Last Vital Signs Temp 98.6 F 01/25/24 10:09 Pulse 116 H 01/25/24 10:09 Resp 16 01/25/24 10:09 BP 109/79 01/25/24 10:09 Pulse Ox 100 01/25/24 10:09 O2 Del Method Room Air 01/25/24 10:09 Allergies Allergy/AdvReac Type Severity Reaction Status Date / Time No Known Allergies Allergy Verified 01/21/24 11:07 Home Medications Medication Instructions Recorded Confirmed Type acetaminophen 650 mg PO Q4H PRN Pain 12/17/22 01/17/24 History cholecalciferol (vitamin D3) 1,000 units PO DAILY 12/17/22 01/17/24 History famotidine 20 mg tablet 20 mg PO BID 12/17/22 01/17/24 History hydrocortisone 5 mg tablet 5 mg PO DAILY 12/17/22 01/17/24 History ipratropium bromide 0.02 % 1 ml inhalation DAILY PRN 12/17/22 01/17/24 History solution for inhalation Shortness Of Breath lactulose 10 gram/15 mL oral 10 ml PO BID 12/17/22 01/17/24 History solution metoprolol tartrate 50 mg tablet 50 mg PO BID 12/17/22 01/17/24 History ondansetron 4 mg disintegrating 4 mg translingual QID PRN Nausea 12/17/22 01/17/24 History tablet And Vomiting polyethylene glycol 3350 17 g PO DAILY Constipation 12/17/22 01/17/24 History potassium chloride 20 mEq oral 20 meq PO DAILY 12/17/22 01/17/24 History packet trazodone 50 mg tablet 50 mg PO HS 12/17/22 01/17/24 History hydrocodone 5 mg-acetaminophen 325 1 tablet PO Q6H PRN Pain 07/27/23 01/17/24 History mg tablet megestrol 400 mg/10 mL (40 mg/mL) 400 mg PO BID 07/27/23 01/17/24 History oral suspension sennosides 8.6 mg tablet (senna) 8.6 mg PO DAILY PRN Constipation 07/27/23 01/17/24 History apixaban 5 mg tablet (Eliquis) 5 mg PO Q12HR #60 tabs 08/22/23 01/17/24 Rx pantoprazole 40 mg tablet,delayed 40 mg PO QAM #60 tabs 08/22/23 01/17/24 Rx release amino acids-protein hydrolysate 17 See Rx Instructions .Route .COMPLEX 10/17/23 01/17/24 History gram-100 kcal/30 mL oral liquid (Pro-Stat AWC) citalopram 20 mg tablet 20 mg PO HS 10/17/23 01/17/24 History Laboratory Tests 01/24/24 01/24/24 01/24/24 11:52 16:55 23:56 WBC RBC Hgb Hct MCV MCH MCHC RDW Plt Count MPV Immature Gran % (Auto) Neut % (Auto) Lymph % (Auto) [place] % (Auto) Eos % (Auto) Baso % (Auto) Lymph # (Auto) [place] # (Auto) Eos # (Auto) Baso # (Auto) Abs Immat Gran (auto) Absolute Neuts (auto) Absolute Nucleated RBC Nucleated RBC % Sodium Potassium Chloride Carbon Dioxide Anion Gap BUN Creatinine Estim Creat Clear Calc Estimated GFR Glucose POC Capillary Glucose 101 mg/dl 109 H mg/dl 110 H mg/dl (65-105) (65-105) (65-105) Calcium Phosphorus Magnesium Total Bilirubin AST ALT Alkaline Phosphatase Total Protein Albumin 01/25/24 04:16 WBC 11.7 H K/mm3 (4.5-10.0) RBC 3.80 L M/mm3 (4.2-5.4) Hgb 9.7 L g/dL (12.0-15.0) Hct 31.5 L % (37.0-47.0) MCV 82.9 fl (80-100) MCH 25.5 L pg (26-34) MCHC 30.8 L g/dl (32-36) RDW 18.3 H % (11.5-14.5) Plt Count 323 k/mm3 (150-375) MPV 10.8 H f
--- NOTE | 2024-01-25 10:52 | WPDHPUPDATE1 ---
History and Physical Update Update Date/Time: 01/25/24 10:52 History and Physical has been reviewed, including an updated exam of the patient. There are NO changes in the patient's condition. Risks, benefits, and alternatives have been discussed and questions answered. Patient agrees to proceed with procedure.
--- NOTE | 2024-01-25 11:13 | P.PNAN_ITS ---
Anes - Initial Pre Proc Eval Procedure: Operation Date: 01/21/24 15:00 Proposed Procedures p Percutaneous Endoscopic Gastrostomy - Jesús Oliver MD Operation Date: 01/25/24 10:30 Proposed Procedures p Insertion Patrick Cath - Luis Eduardo Branham MD Date/Time: 01/25/24 11:13 Surgeon: Martha Malone MD Pre Op Diagnosis: Sepsis, L pyelonephritis, MS Patient Data Age: 58 Gender: F Height: 1.6 m Weight: 65.5 kg Last Vital Signs Temp 98.6 F 01/25/24 10:09 Pulse 116 H 01/25/24 10:09 Resp 16 01/25/24 10:09 BP 109/79 01/25/24 10:09 Pulse Ox 100 01/25/24 10:09 O2 Del Method Room Air 01/25/24 10:09 Allergies Allergy/AdvReac Type Severity Reaction Status Date / Time No Known Allergies Allergy Verified 01/21/24 11:07 Home Medications Medication Instructions Recorded Confirmed Type acetaminophen 650 mg PO Q4H PRN Pain 12/17/22 01/17/24 History cholecalciferol (vitamin D3) 1,000 units PO DAILY 12/17/22 01/17/24 History famotidine 20 mg tablet 20 mg PO BID 12/17/22 01/17/24 History hydrocortisone 5 mg tablet 5 mg PO DAILY 12/17/22 01/17/24 History ipratropium bromide 0.02 % 1 ml inhalation DAILY PRN 12/17/22 01/17/24 History solution for inhalation Shortness Of Breath lactulose 10 gram/15 mL oral 10 ml PO BID 12/17/22 01/17/24 History solution metoprolol tartrate 50 mg tablet 50 mg PO BID 12/17/22 01/17/24 History ondansetron 4 mg disintegrating 4 mg translingual QID PRN Nausea 12/17/22 01/17/24 History tablet And Vomiting polyethylene glycol 3350 17 g PO DAILY Constipation 12/17/22 01/17/24 History potassium chloride 20 mEq oral 20 meq PO DAILY 12/17/22 01/17/24 History packet trazodone 50 mg tablet 50 mg PO HS 12/17/22 01/17/24 History hydrocodone 5 mg-acetaminophen 325 1 tablet PO Q6H PRN Pain 07/27/23 01/17/24 History mg tablet megestrol 400 mg/10 mL (40 mg/mL) 400 mg PO BID 07/27/23 01/17/24 History oral suspension sennosides 8.6 mg tablet (senna) 8.6 mg PO DAILY PRN Constipation 07/27/23 01/17/24 History apixaban 5 mg tablet (Eliquis) 5 mg PO Q12HR #60 tabs 08/22/23 01/17/24 Rx pantoprazole 40 mg tablet,delayed 40 mg PO QAM #60 tabs 08/22/23 01/17/24 Rx release amino acids-protein hydrolysate 17 See Rx Instructions .Route .COMPLEX 10/17/23 01/17/24 History gram-100 kcal/30 mL oral liquid (Pro-Stat AWC) citalopram 20 mg tablet 20 mg PO HS 10/17/23 01/17/24 History Laboratory Tests 01/24/24 01/24/24 01/24/24 11:52 16:55 23:56 WBC RBC Hgb Hct MCV MCH MCHC RDW Plt Count MPV Immature Gran % (Auto) Neut % (Auto) Lymph % (Auto) [place] % (Auto) Eos % (Auto) Baso % (Auto) Lymph # (Auto)
[2024-01-25] MEDS: ceFAZolin SODIUM 1 GM VIAL 2 GM IV PUSH (11:18)
[2024-01-25] MEDS: BUPIVACAINE/EPINEPHRINE 0.5% 50 ML VIAL 30 ML INFILTRATE (11:19)
[2024-01-25] MEDS: HEPARIN SODIUM 1,000 UNITS/ML VIAL 1000 UNITS IV PUSH (11:20)
--- NOTE | 2024-01-25 12:59 | W.PM.PROC2 ---
Procedure Note - Detailed Date of Procedure 01/25/24 Pre-op Diagnosis Sepsis, L pyelonephritis, MS, poor venous access Post-op Diagnosis Same Procedure Performed Placement left internal jugular Smart Port CT central venous catheter with ultrasound and fluoroscopy Surgeon Luis Eduardo Branham MD Asic Design Engineer Yadiel Wilson, [facility] Anesthesia General (G IV S) and Local Indications Patient is a 58-year-old woman with schizophrenia and MS. She has severe contractures and is a functional quadriplegic. She is in with pyelonephritis and sepsis. She is in the hospital frequently. She has really no peripheral venous access. I was asked by her admitting physician to place a Port-A-Cath for venous access during this admission and likely future admissions. Findings This was a very difficult Port-A-Cath placement. Venous access was not give call to achieve using ultrasound and the internal jugular vein on the left. The problem came in that the angulation where the left internal jugular and left subclavian veins meet was acute and the catheters would not pass beyond this. Additionally, where the left innominate vein joined the right innominate there was again acute angulation that was difficult to cross. Procedure was exceptionally long lasting 1 hour and 45 minutes which is nearly 5 times the usual time spent on this procedure. We had to use 1 vortex Port-A-Cath as well as two smart Port CT kits before a 3rd Smart Port CT kit was able to be positioned and functional. Additionally the superior vena cava was very short before it joined the atrium and right ventricle. The catheter would seemed to pop into unusual position once it was brought back from the right ventricle. Description of Procedure Patient was taken to surgery and placed in a supine position. Due to her significant comorbid conditions, she was given sedation but could not be sedated thoroughly. Prep and drape of the left neck and left upper chest was carried out. I used ultrasound and gel and found the left internal jugular vein. Venous pressures were very low. We placed the patient in steep Trendelenburg and eventually were able to cannulate the left internal jugular vein using ultrasound and passed a guidewire into the left innominate vein. It coiled at this point on fluoroscopy and after some manipulation I was able to get the guidewire to go down the superior vena cava and into the right ventricle. I then marked counter incisions as well as the position for the Port-A-Cath placement on the left neck and left subclavian areas. The exit site of the guidewire as well as the 2 counter incisions were made on the left neck. I then made an incision in the subclavian position for the Port-A-Cath. We dissected through the subcutaneous and through the fascia. A subfascial pocket was created. I then marked out over the pocket and general path of the Port-A-Cath tunnel as well as the path to the distal SVC right atrial junction using fluoroscopy and the wire that was in place. The Port-A-Cath was cut to this length. I then tunneled the Port-A-Cath from the pocket through each of the counter incisions and out the same incision the guidewire emanated from. The introducer and sheath was then passed over the guidewire again under fluoroscopic guidance. The guidewire and introducer were then removed. We attempted to pass the Port-A-Cath tubing through the sheath but it would not pass as the sheath was kinked at the angulation of the internal jugular meeting the subclavian vein. Eventually I removed the sheath and then tried to position the Port-A-Cath tubing but this would not pass any further. I then cut the Port-A-Cath tubing and passed the guidewire through this tubing and eventually managed to pass the guidewire back beyond the SVC and into the right atrium. I then removed the Port-A-Cath tubing from the guidewire. I chose the Smart Port CT as it is not attached to the reservoir until the end of the procedure. I in
[2024-01-25 13:25] LABS: Glucose Point of Care 91 mg/dl (65-105)
--- NOTE | 2024-01-25 13:26 | PCNFU ---
Nutrition Follow-Up Complete: Severe protein calorie malnutrition related to chronic loss of appetite, as evidenced by intakes <75% needs >1 month; refusal to eat at least 1 week; weight loss 16%/5 months and 11%<1 month Goal:Meet estimated protein energy needs Intervention for wounds when intakes improve Pt not meeting goals at this time. Pt current nutrition is NPO, pt is down in surgery, Tube feeding was Jevity 1.5 @ goal of 50ml/hr. Nutrition recommendation: resume tube feeding when appropriate Last recorded weight is 65.5 kg. Bowel Motility: +BM 01/24 Labs Reviewed: Hgb:9.7, HCT:31.5, Alb:2.8, NA:134, BUN:44, Phos: 1.7 Meds Noted: zofran, protonix Skin: Stage III-sacrum and bilateral ischium Additional Notes: Pt currently NPO and tube feeding held for surgery. Was on Jevity 1.5 @ a goal rate of 50ml/hr. Tube feeding to resume post procedure. Monitoring intakes, weights, labs, plan of care, supplement tolerance, wounds. Follow up in 3 days
[2024-01-25] MEDS: ALBUMIN HUMAN 25% 25 GM/100 ML 200 ML IVPB (15:46)
[2024-01-25] MEDS: SODIUM ZIRCONIUM CYCLOSILICATE 10 GM POWD.PACK PO (16:03)
[2024-01-25] MEDS: POTASSIUM/PHOSPHORUS/SODIUM 1.5 GM PACKET 2 PACKET PO (16:04)
[2024-01-25] MEDS: CENTRAL LINE FLUSH 10 ML IV PUSH (16:04)
[2024-01-25] MEDS: SODIUM BICARBONATE TAB 650 MG TABLET PO ×2 (16:09→21:38)
[2024-01-25] MEDS: DEXTROSE 5%/0.9% SOD CHL 1,000 ML 125 ML IV CONT (17:56)
[2024-01-25 18:16] LABS: Glucose Point of Care 93 mg/dl (65-105)
[2024-01-25 18:42] LABS: Glucose Point of Care 100 mg/dl (65-105)
[2024-01-25] MEDS: traZODone HCL 50 MG TABLET PO (21:38)
[2024-01-26] VITALS (17 sets, daily range): BP systolic 120–154; BP diastolic 66–98; PULSE 92–133; RESP 18–22; TEMP 36.2–36.9; O2SAT 92–100
[2024-01-26 01:07] LABS: Glucose Point of Care 124 mg/dl (65-105)
[2024-01-26] MEDS: DEXTROSE 5%/0.9% SOD CHL 1,000 ML 125 ML IV CONT (03:00)
[2024-01-26] MEDS: SODIUM BICARBONATE TAB 650 MG TABLET PO ×3 (05:52→21:17)
[2024-01-26 06:19] LABS: Basophils Percent Auto 0.4 % (0.2-1.2); Eosinophils Absolute Auto 0.3 K/mm3 (0-0.3); Eosinophils Percent Auto 3.5 % (0-4.4); Immature Granulocyte Absolute 0.03 K/mm3 (0.00-0.031); Immature Granulocyte Percent A 0.4 % (0-0.5); Lymphocytes Absolute Auto 2.13 K/mm3 (0.9-3.2); Lymphocytes Percent Auto 26.5 % (18.3-44.2); Mean Corpuscular HGB Conc 31.7 g/dl (32-36); Mean Corpuscular Hemoglobin 26.1 pg (26-34); Mean Corpuscular Volume 82.6 fl (80-100); Mean Platelet Volume 10.9 fl (7.4-10.4); Monocytes Absolute Auto 0.8 K/mm3 (0.1-0.6); Monocytes Percent Auto 10.2 % (2.6-8.5); Neutrophils Absolute Auto 4.7 K/mm3 (1.3-6.7); Platelet Count Result 212 k/mm3 (150-375); Red Blood Count 2.41 M/mm3 (4.2-5.4); Red Cell Distribution Width 17.8 % (11.5-14.5)
[2024-01-26 06:30] LABS: Alanine Aminotransferase 10 U/L (6-35); Albumin Level 2.8 g/dL (3.5-5.1); Alkaline Phosphatase 103 U/L (38-126); Anion Gap 4 mmol/L (4-12); Aspartate Amino Transferase 15 U/L (14-36); Bilirubin,Total 0.5 mg/dL (0.2-1.3); Blood Urea Nitrogen 42 mg/dL (7-17); Calcium 8.2 mg/dL (8.4-10.2); Carbon Dioxide 23 mmol/L (22-30); Chloride 111 mmol/L (98-107); Estimated CRCL calculation 73 ml/min; Estimated Glomerular Filt Rate > 60; Glucose 128 mg/dL (65-110); Magnesium 1.6 mg/dL (1.6-2.3); Phosphorus 2.7 mg/dL (2.5-4.5); Potassium 3.4 mmol/L (3.4-5.0); Sodium 138 mmol/L (137-145)
[2024-01-26 06:40] LABS: Hemoglobin 6.3 g/dL (12.0-15.0)
[2024-01-26 06:41] LABS: Hematocrit 19.9 % (37.0-47.0)
--- NOTE | 2024-01-26 07:06 | PC.NURSE ---
RN assumed care of pt. Per Night JAVON Balbuena was informed of pt critical labs
--- NOTE | 2024-01-26 07:25 | PM.IMPN ---
Progress Note: A&P Assessment and Plan (1) Acute encephalopathy: Code(s): G93.40 - Encephalopathy, unspecified Status: Acute (2) Malnutrition: Code(s): E46 - Unspecified protein-calorie malnutrition Status: Acute (3) Pyelitis: Code(s): N12 - Tubulo-interstitial nephritis, not specified as acute or chronic Status: Acute (4) Delirium: Code(s): R41.0 - Disorientation, unspecified Status: Acute (5) History of infection with vancomycin resistant Enterococcus (VRE): Code(s): Z86.19 - Personal history of other infectious and parasitic diseases Status: Acute (6) Hyperkalemia: Code(s): E87.5 - Hyperkalemia Status: Acute Plan Ms. Perez is a 58-year-old female who has past medical history multiple sclerosis, functional quadriplegia, dementia with depression and behavioral disturbance, schizoaffective disorder, chronic anemia, solitary kidney status post renal carcinoma asthma, COPD, hypertension, history of ESBL UTI, hypertension, history of DVT on Eliquis, GERD presents from [facility] with altered mental status.? She was just discharged on January 09 facility due to delirium and failure to thrive and sepsis of unknown origin.? She is a resident of [facility] she was noted to have a fever and be altered.? In the [place] ER she has been refusing to take medications.? This has been a problem with her before.? She denies any other concerns.? Presents with leukocytosis anion gap metabolic acidosis, CT abdomen pelvis with contrast demonstrating left-sided pyelitis which was seen on last admission.? 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 Started on meropenem and Zyvox.? Case discussed with Urology from the ER. profound anemia 01/25 hemoglobin 6.3, <9.7 yesterday possible acute blood loss anemia transfuse 2 pack RBC blood pressure stable #Sepsis secondary to pyelonephritis -monitor tachycardia and leukocytosis.? On 01/19 they are persistent.? Check procalcitonin and attempt to restart her home dose metoprolol. -blood cultures pending, no growth to date. -due to the patient's anatomical status unable to obtain urine samples.? If patient declines urology you may have to intervene.? There were notified in the ER. -meropenem and Zyvox started on admission on 01/17/2024.? Continue these.? History of ESBL and VRE. completed Zyvox and meropenem IV #Acute encephalopathy with history of dementia depression and schizoaffective disorder -she appears more cantankerous than altered.? Unclear if this is a schizoaffective disorder presentation with dementia and behavioral disturbance or an acute/metabolic encephalopathy. -morning of 01/20/2024 he is complaining of shortness of breath and repetitively asking for pineapple juice.? History is difficult to obtain otherwise.? Her lung sounds are clear and CTA of the chest does not demonstrated PE.? Demonstrating atelectasis and a small pleural effusion.? Incentive spirometer has been ordered.? DuoNebs p.r.n. she is on room air -her Seroquel and metoprolol have been restarted.? She is having some tachycardia and disorganized thinking.? Have not restarted her whole home med list as that may turn her away taking her meds.? Hopefully she will take metoprolol and her nightly Seroquel.? Plan for PEG tube tomorrow with GI 01/20:? patient is alert, not oriented x3, patient is able to answer questions, mental status is at baseline at base line #Metabolic acidosis -multifactorial.? Starvation ketoacidosis plus hypochloremic acidosis.? Slowly improving status post D5 normal saline received sodium bicarbonate p.o.? follow-up ABG ?consult hotel service supervisor for evaluation treatment corrected #acute hypokalemia -likely due to poor oral intake. ? received KCl to the D5 normal saline and recheck BMP tonight. ?add potassium chloride 40 mEq powder via G-tube feeding daily hold vicente
[2024-01-26] MEDS: VITAMIN B COMPLEX CAPSULE 1 CAP FEED TUBE (08:36)
[2024-01-26] MEDS: MULTIVIT W/ IRON, MINERALS 15 ML LIQUID (*BKC) FEED TUBE (08:36)
[2024-01-26] MEDS: THIAMINE HCL 100 MG TABLET 300 MG FEED TUBE (08:37)
[2024-01-26] MEDS: PANTOPRAZOLE SODIUM IV 40 MG VIAL IV PUSH (08:37)
[2024-01-26] MEDS: METOPROLOL TARTRATE 50 MG TAB PO ×2 (09:19→21:17)
--- NOTE | 2024-01-26 17:20 | PC.NURSE ---
RN Initiated Blood transfusion vitals at 1645.
[2024-01-26 18:00] LABS: Glucose Point of Care 88 mg/dl (65-105)
--- NOTE | 2024-01-26 18:43 | PC.NURSE ---
RN Changed fernandez at 1635 since it was leaking and the pts bed was wet.
[2024-01-26] MEDS: traZODone HCL 50 MG TABLET PO (21:17)
[2024-01-26] MEDS: TUBING, BLOOD PLUM PUMP TUBING 2 EACH XX (23:17)
[2024-01-26] MEDS: SODIUM CHLORIDE 0.9% IV 250 ML 30 ML IV CONT (23:17)
[2024-01-27] VITALS (12 sets, daily range): BP systolic 129–157; BP diastolic 79–98; PULSE 77–113; RESP 18–22; TEMP 36.5–37.1; O2SAT 98–100
[2024-01-27] MEDS: DEXTROSE 5%/0.9% SOD CHL 1,000 ML 125 ML IV CONT ×2 (02:30→10:55)
--- NOTE | 2024-01-27 02:37 | PC.NURSE ---
this RN accessed port at 1203
[2024-01-27] MEDS: SODIUM BICARBONATE TAB 650 MG TABLET PO ×3 (04:56→21:02)
[2024-01-27] MEDS: CENTRAL LINE FLUSH 10 ML IV PUSH ×3 (05:21→21:02)
[2024-01-27 05:23] LABS: Basophils Percent Auto 0.5 % (0.2-1.2); Eosinophils Absolute Auto 0.3 K/mm3 (0-0.3); Eosinophils Percent Auto 3.5 % (0-4.4); Hemoglobin 9.5 g/dL (12.0-15.0); Immature Granulocyte Absolute 0.05 K/mm3 (0.00-0.031); Immature Granulocyte Percent A 0.6 % (0-0.5); Lymphocytes Absolute Auto 2.37 K/mm3 (0.9-3.2); Mean Corpuscular HGB Conc 32.8 g/dl (32-36); Mean Corpuscular Hemoglobin 27.5 pg (26-34); Mean Corpuscular Volume 84.1 fl (80-100); Mean Platelet Volume 10.9 fl (7.4-10.4); Monocytes Absolute Auto 1.1 K/mm3 (0.1-0.6); Monocytes Percent Auto 13.6 % (2.6-8.5); Neutrophils Absolute Auto 4.3 K/mm3 (1.3-6.7); Neutrophils Percent Auto 52.8 % (45.5-73.1); Platelet Count Result 188 k/mm3 (150-375); Red Blood Count 3.45 M/mm3 (4.2-5.4); Red Cell Distribution Width 16.5 % (11.5-14.5); White Blood Count 8.2 K/mm3 (4.5-10.0)
--- NOTE | 2024-01-27 05:26 | PC.NURSE ---
tube feeding tubing and bag changed at 0525, residual was checked by this RN and other RN and was 15 ml, feeding advanced to 20ml/hr
[2024-01-27 05:39] LABS: Alanine Aminotransferase 10 U/L (6-35); Albumin Level 2.9 g/dL (3.5-5.1); Alkaline Phosphatase 122 U/L (38-126); Anion Gap 1 mmol/L (4-12); Aspartate Amino Transferase 17 U/L (14-36); Bilirubin,Total 1.5 mg/dL (0.2-1.3); Blood Urea Nitrogen 36 mg/dL (7-17); Calcium 8.4 mg/dL (8.4-10.2); Carbon Dioxide 28 mmol/L (22-30); Chloride 112 mmol/L (98-107); Estimated CRCL calculation 73 ml/min; Estimated Glomerular Filt Rate > 60; Glucose 95 mg/dL (65-110); Potassium 3.4 mmol/L (3.4-5.0); Sodium 141 mmol/L (137-145)
[2024-01-27 08:09] LABS: Glucose Point of Care 102 mg/dl (65-105)
--- NOTE | 2024-01-27 09:22 | PM.IMPN ---
Progress Note: A&P Assessment and Plan (1) Acute encephalopathy: Code(s): G93.40 - Encephalopathy, unspecified Status: Acute (2) Malnutrition: Code(s): E46 - Unspecified protein-calorie malnutrition Status: Acute (3) Pyelitis: Code(s): N12 - Tubulo-interstitial nephritis, not specified as acute or chronic Status: Acute (4) Delirium: Code(s): R41.0 - Disorientation, unspecified Status: Acute (5) History of infection with vancomycin resistant Enterococcus (VRE): Code(s): Z86.19 - Personal history of other infectious and parasitic diseases Status: Acute (6) Hyperkalemia: Code(s): E87.5 - Hyperkalemia Status: Acute Plan Ms. Perez is a 58-year-old female who has past medical history multiple sclerosis, functional quadriplegia, dementia with depression and behavioral disturbance, schizoaffective disorder, chronic anemia, solitary kidney status post renal carcinoma asthma, COPD, hypertension, history of ESBL UTI, hypertension, history of DVT on Eliquis, GERD presents from [facility] with altered mental status.? She was just discharged on January 09 facility due to delirium and failure to thrive and sepsis of unknown origin.? She is a resident of [facility] she was noted to have a fever and be altered.? In the [place] ER she has been refusing to take medications.? This has been a problem with her before.? She denies any other concerns.? Presents with leukocytosis anion gap metabolic acidosis, CT abdomen pelvis with contrast demonstrating left-sided pyelitis which was seen on last admission.? 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 Started on meropenem and Zyvox.? Case discussed with Urology from the ER. profound anemia 01/25 hemoglobin 6.3, <9.7 yesterday possible acute blood loss anemia transfuse 2 pack RBC 01/25 blood pressure stable 01/26 Hb 9.5 #Sepsis secondary to pyelonephritis -monitor tachycardia and leukocytosis.? On 01/19 they are persistent.? Check procalcitonin and attempt to restart her home dose metoprolol. -blood cultures pending, no growth to date. -due to the patient's anatomical status unable to obtain urine samples.? If patient declines urology you may have to intervene.? There were notified in the ER. -meropenem and Zyvox started on admission on 01/17/2024.? Continue these.? History of ESBL and VRE. completed Zyvox and meropenem IV #Acute encephalopathy with history of dementia depression and schizoaffective disorder -she appears more cantankerous than altered.? Unclear if this is a schizoaffective disorder presentation with dementia and behavioral disturbance or an acute/metabolic encephalopathy. -morning of 01/20/2024 he is complaining of shortness of breath and repetitively asking for pineapple juice.? History is difficult to obtain otherwise.? Her lung sounds are clear and CTA of the chest does not demonstrated PE.? Demonstrating atelectasis and a small pleural effusion.? Incentive spirometer has been ordered.? DuoNebs p.r.n. she is on room air -her Seroquel and metoprolol have been restarted.? She is having some tachycardia and disorganized thinking.? Have not restarted her whole home med list as that may turn her away taking her meds.? Hopefully she will take metoprolol and her nightly Seroquel.? Plan for PEG tube tomorrow with GI 01/20:? patient is alert, not oriented x3, patient is able to answer questions, mental status is at baseline at base line #Metabolic acidosis -multifactorial.? Starvation ketoacidosis plus hypochloremic acidosis.? Slowly improving status post D5 normal saline received sodium bicarbonate p.o.? follow-up ABG ?consult president [place] for evaluation treatment corrected #acute hypokalemia -likely due to poor oral intake. ? received KCl to the D5 normal saline and recheck BMP tonight. ?add potassium chloride 40 mEq powder via G-tube feeding toby
[2024-01-27] MEDS: METOPROLOL TARTRATE 50 MG TAB PO ×2 (09:45→21:02)
[2024-01-27] MEDS: MULTIVIT W/ IRON, MINERALS 15 ML LIQUID (*BKC) FEED TUBE (09:45)
[2024-01-27] MEDS: VITAMIN B COMPLEX CAPSULE 1 CAP FEED TUBE (09:45)
[2024-01-27] MEDS: THIAMINE HCL 100 MG TABLET 300 MG FEED TUBE (09:45)
[2024-01-27] MEDS: PANTOPRAZOLE SODIUM IV 40 MG VIAL IV PUSH (09:45)
[2024-01-27 11:16] LABS: Glucose Point of Care 89 mg/dl (65-105)
[2024-01-27 11:36] LABS: Glucose Point of Care 100 mg/dl (65-105)
[2024-01-27 16:34] LABS: Glucose Point of Care 113 mg/dl (65-105)
[2024-01-27] MEDS: traZODone HCL 50 MG TABLET PO (21:02)
[2024-01-28] VITALS (12 sets, daily range): BP systolic 105–141; BP diastolic 75–87; PULSE 87–110; RESP 16–20; TEMP 35.6–36.7; O2SAT 96–99
[2024-01-28] MEDS: CENTRAL LINE FLUSH 10 ML IV PUSH ×3 (05:18→20:31)
[2024-01-28] MEDS: SODIUM BICARBONATE TAB 650 MG TABLET PO ×2 (05:18→18:19)
[2024-01-28 05:43] LABS: Glucose Point of Care 109 mg/dl (65-105)
[2024-01-28 08:36] LABS: Basophils Absolute Auto 0.1 K/mm3 (0.0-0.1); Basophils Percent Auto 0.5 % (0.2-1.2); Eosinophils Absolute Auto 0.3 K/mm3 (0-0.3); Eosinophils Percent Auto 2.8 % (0-4.4); Hematocrit 29.9 % (37.0-47.0); Hemoglobin 9.5 g/dL (12.0-15.0); Immature Granulocyte Absolute 0.02 K/mm3 (0.00-0.031); Immature Granulocyte Percent A 0.2 % (0-0.5); Lymphocytes Absolute Auto 2.58 K/mm3 (0.9-3.2); Lymphocytes Percent Auto 27.7 % (18.3-44.2); Mean Corpuscular HGB Conc 31.8 g/dl (32-36); Mean Corpuscular Hemoglobin 26.8 pg (26-34); Mean Corpuscular Volume 84.5 fl (80-100); Mean Platelet Volume 10.6 fl (7.4-10.4); Monocytes Absolute Auto 1.3 K/mm3 (0.1-0.6); Monocytes Percent Auto 14.2 % (2.6-8.5); Neutrophils Absolute Auto 5.1 K/mm3 (1.3-6.7); Neutrophils Percent Auto 54.6 % (45.5-73.1); Platelet Count Result 193 k/mm3 (150-375); Red Blood Count 3.54 M/mm3 (4.2-5.4); Red Cell Distribution Width 16.9 % (11.5-14.5); White Blood Count 9.3 K/mm3 (4.5-10.0)
[2024-01-28 08:51] LABS: Alanine Aminotransferase 10 U/L (6-35); Albumin Level 2.7 g/dL (3.5-5.1); Alkaline Phosphatase 138 U/L (38-126); Anion Gap 0 mmol/L (4-12); Aspartate Amino Transferase 24 U/L (14-36); Bilirubin,Total 0.7 mg/dL (0.2-1.3); Blood Urea Nitrogen 20 mg/dL (7-17); Calcium 8.1 mg/dL (8.4-10.2); Carbon Dioxide 27 mmol/L (22-30); Chloride 111 mmol/L (98-107); Estimated CRCL calculation 73 ml/min; Estimated Glomerular Filt Rate > 60; Glucose 102 mg/dL (65-110); Potassium 3.4 mmol/L (3.4-5.0); Sodium 138 mmol/L (137-145)
[2024-01-28] MEDS: THIAMINE HCL 100 MG TABLET 300 MG FEED TUBE (09:45)
[2024-01-28] MEDS: MULTIVIT W/ IRON, MINERALS 15 ML LIQUID (*BKC) FEED TUBE (09:45)
[2024-01-28] MEDS: METOPROLOL TARTRATE 50 MG TAB PO ×2 (09:45→20:31)
[2024-01-28] MEDS: PANTOPRAZOLE 40 MG TABLET PO (09:45)
[2024-01-28] MEDS: VITAMIN B COMPLEX CAPSULE 1 CAP FEED TUBE (09:45)
[2024-01-28 11:13] LABS: Phosphorus 2.7 mg/dL (2.5-4.5)
[2024-01-28 11:37] LABS: Glucose Point of Care 110 mg/dl (65-105)
--- NOTE | 2024-01-28 13:34 | PM.IMPN ---
Progress Note: A&P Assessment and Plan (1) Acute encephalopathy: Code(s): G93.40 - Encephalopathy, unspecified Status: Acute (2) Malnutrition: Code(s): E46 - Unspecified protein-calorie malnutrition Status: Acute (3) Pyelitis: Code(s): N12 - Tubulo-interstitial nephritis, not specified as acute or chronic Status: Acute (4) Delirium: Code(s): R41.0 - Disorientation, unspecified Status: Acute (5) History of infection with vancomycin resistant Enterococcus (VRE): Code(s): Z86.19 - Personal history of other infectious and parasitic diseases Status: Acute (6) Hyperkalemia: Code(s): E87.5 - Hyperkalemia Status: Acute Plan profound anemia 01/25 hemoglobin 6.3, <9.7 yesterday possible acute blood loss anemia transfuse 2 pack RBC 01/25 blood pressure stable 01/26 Hb 9.5 #Sepsis secondary to pyelonephritis -monitor tachycardia and leukocytosis.? On 01/19 they are persistent.? Check procalcitonin and attempt to restart her home dose metoprolol. -blood cultures pending, no growth to date. -due to the patient's anatomical status unable to obtain urine samples.? If patient declines urology you may have to intervene.? There were notified in the ER. -meropenem and Zyvox started on admission on 01/17/2024.? Continue these.? History of ESBL and VRE. completed Zyvox and meropenem IV #Acute encephalopathy with history of dementia depression and schizoaffective disorder -she appears more cantankerous than altered.? Unclear if this is a schizoaffective disorder presentation with dementia and behavioral disturbance or an acute/metabolic encephalopathy. -morning of 01/20/2024 he is complaining of shortness of breath and repetitively asking for pineapple juice.? History is difficult to obtain otherwise.? Her lung sounds are clear and CTA of the chest does not demonstrated PE.? Demonstrating atelectasis and a small pleural effusion.? Incentive spirometer has been ordered.? DuoNebs p.r.n. she is on room air -her Seroquel and metoprolol have been restarted.? She is having some tachycardia and disorganized thinking.? Have not restarted her whole home med list as that may turn her away taking her meds.? Hopefully she will take metoprolol and her nightly Seroquel.? #Metabolic acidosis -multifactorial.? Starvation ketoacidosis plus hypochloremic acidosis.? Slowly improving status post D5 normal saline received sodium bicarbonate p.o.? follow-up ABG ?consult crop setting out machine operator for evaluation treatment corrected #acute hypokalemia -likely due to poor oral intake. ? received KCl to the D5 normal saline and recheck BMP tonight. ?add potassium chloride 40 mEq powder via G-tube feeding daily resolved hypotension 01/24 possible due todehydration and hypoalbuminemia sp D5 normal saline IV, albumin 50 g once hyperkalemia potassium 6.7 follow-up EKG, telemetry monitoring Provide lokelma 10 mg p.o., D50 and insulin IV push, causing glucose IV push, sodium bicarbonate IV push, albuterol nebulizer once Telemetry monitoring Repeat BMP q.6 hours discontinue potassium supplement, resolved #Starvation ketoacidosis/malnutrition/electrolyte abnormalities/ hypophosphatemia -due to patient's unwillingness to eat.? Guardian has requested PEG tube.? This is to be done on Sunday with Dr. Sosa team.? Monitor for refeeding syndrome thereafter. -hypokalemia and hypomagnesemia.? Replace and recheck #Hypertensive urgency -on 01/17 the patient's p.o. meds were started but she has continued to refuse p.o. meds.? Can restart these again when she has a PEG tube -for now, use hydralazine and labetalol p.r.n. -attempting to restart metoprolol #History of DVT on Eliquis Eliquis on hold because of surgical procedures 01/26 Hb stable, resume Eliquis p.o. when it is okay for general surgeon #GERD -continue Protonix multiple pressure ulcers consult wound care patient has difficul
[2024-01-28 17:44] LABS: Glucose Point of Care 106 mg/dl (65-105)
[2024-01-28] MEDS: traZODone HCL 50 MG TABLET PO (20:31)
[2024-01-29] VITALS (11 sets, daily range): BP systolic 110–129; BP diastolic 68–82; PULSE 93–111; RESP 18–20; TEMP 35.9–36.8; O2SAT 97–100
[2024-01-29 01:10] LABS: Glucose Point of Care 141 mg/dl (65-105)
[2024-01-29] MEDS: CENTRAL LINE FLUSH 10 ML IV PUSH ×3 (05:45→20:16)
[2024-01-29 05:55] LABS: Hematocrit 27.5 % (37.0-47.0); Hemoglobin 8.9 g/dL (12.0-15.0); Mean Corpuscular HGB Conc 32.4 g/dl (32-36); Mean Corpuscular Hemoglobin 27.4 pg (26-34); Mean Corpuscular Volume 84.6 fl (80-100); Mean Platelet Volume 10.3 fl (7.4-10.4); Platelet Count Result 207 k/mm3 (150-375); Red Blood Count 3.25 M/mm3 (4.2-5.4); White Blood Count 10.2 K/mm3 (4.5-10.0)
[2024-01-29 06:04] LABS: Glucose Point of Care 114 mg/dl (65-105)
[2024-01-29 06:05] LABS: Anion Gap 4 mmol/L (4-12); Blood Urea Nitrogen 17 mg/dL (7-17); Calcium 8.2 mg/dL (8.4-10.2); Carbon Dioxide 25 mmol/L (22-30); Chloride 109 mmol/L (98-107); Estimated CRCL calculation 73 ml/min; Estimated Glomerular Filt Rate > 60; Glucose 104 mg/dL (65-110); Potassium 3.4 mmol/L (3.4-5.0); Sodium 138 mmol/L (137-145)
[2024-01-29] MEDS: THIAMINE HCL 100 MG TABLET 300 MG FEED TUBE (08:59)
[2024-01-29] MEDS: METOPROLOL TARTRATE 50 MG TAB PO ×2 (09:00→20:15)
[2024-01-29] MEDS: PANTOPRAZOLE 40 MG TABLET PO (09:00)
[2024-01-29] MEDS: SODIUM BICARBONATE TAB 650 MG TABLET PO ×2 (09:00→16:10)
[2024-01-29] MEDS: VITAMIN B COMPLEX CAPSULE 1 CAP FEED TUBE (09:00)
[2024-01-29] MEDS: MULTIVIT W/ IRON, MINERALS 15 ML LIQUID (*BKC) FEED TUBE (09:01)
--- NOTE | 2024-01-29 10:00 | PCNFU ---
Nutrition Follow-Up Complete: Severe protein calorie malnutrition related to chronic loss of appetite, as evidenced by intakes <75% needs >1 month; refusal to eat at least 1 week; weight loss 16%/5 months and 11%<1 month Meet estimated protein energy needs - Meeting needs with PEG tube feeds Intervention for wounds when intakes improve - Will initiate Maged flushes Goal: Pt current nutrition is Jevity 1.5 @ goal rate 50 ml/hl. Tolerating. Nutrition recommendation: Continue tube feeding orders and initiate Maged flushes BID for additional 90 kcal and 2.5 g protein with arginine and glutamine for wound support Last recorded weight is 67.5 kg. Bowel Motility: Semi liquid stool per FMS Labs Reviewed: Hgb 8.9, Hct 27.5, Alb 2.7, Cre 0.6 Meds Noted: Zofran, Protonix Skin: Stage 3 sacrum, BL ischium Additional Notes: Meeting 100% estimated protein energy needs with Jevity 1.5 @ 50 ml/h: 1650 kcal, 70 g protein, 836 ml free water. Flush 150 ml q 4 hours. Refeeding syndrome risk was addressed with supplementation and slow initiation to goal rate, now past. Pt is back to baseline per notes. Monitoring intakes, weights, labs, plan of care, supplement tolerance, wounds. Follow up Sunday and Sunday
[2024-01-29 12:02] LABS: Glucose Point of Care 115 mg/dl (65-105)
--- NOTE | 2024-01-29 13:21 | PM.IMPN ---
Progress Note: A&P Assessment and Plan (1) Acute encephalopathy: Code(s): G93.40 - Encephalopathy, unspecified Status: Acute (2) Malnutrition: Code(s): E46 - Unspecified protein-calorie malnutrition Status: Acute (3) Pyelitis: Code(s): N12 - Tubulo-interstitial nephritis, not specified as acute or chronic Status: Acute (4) Delirium: Code(s): R41.0 - Disorientation, unspecified Status: Acute (5) History of infection with vancomycin resistant Enterococcus (VRE): Code(s): Z86.19 - Personal history of other infectious and parasitic diseases Status: Acute (6) Hyperkalemia: Code(s): E87.5 - Hyperkalemia Status: Acute Plan profound anemia 01/25 hemoglobin 6.3, <9.7 yesterday possible acute blood loss anemia transfuse 2 pack RBC 01/25 blood pressure stable now 01/28 hb is 8.9 #Sepsis secondary to pyelonephritis -monitor tachycardia and leukocytosis.? On 01/19 they are persistent.? Check procalcitonin and attempt to restart her home dose metoprolol. -blood cultures pending, no growth to date. -due to the patient's anatomical status unable to obtain urine samples.? If patient declines urology you may have to intervene.? There were notified in the ER. -meropenem and Zyvox started on admission on 01/17/2024.? Continue these.? History of ESBL and VRE. completed Zyvox and meropenem IV #Acute encephalopathy with history of dementia depression and schizoaffective disorder -she appears more cantankerous than altered.? Unclear if this is a schizoaffective disorder presentation with dementia and behavioral disturbance or an acute/metabolic encephalopathy. -morning of 01/20/2024 he is complaining of shortness of breath and repetitively asking for pineapple juice.? History is difficult to obtain otherwise.? Her lung sounds are clear and CTA of the chest does not demonstrated PE.? Demonstrating atelectasis and a small pleural effusion.? Incentive spirometer has been ordered.? DuoNebs p.r.n. she is on room air -her Seroquel and metoprolol have been restarted.? ? #Metabolic acidosis -multifactorial.? Starvation ketoacidosis plus hypochloremic acidosis.? Slowly improving status post D5 normal saline received sodium bicarbonate p.o.? follow-up ABG ?consult twill cutter for evaluation treatment corrected #acute hypokalemia -likely due to poor oral intake. ? resolved now hypotension 01/24 resolved pt is off iv fluids now hyperkalemia potassium 6.7 follow-up EKG, telemetry monitoring Provide lokelma 10 mg p.o., D50 and insulin IV push, causing glucose IV push, sodium bicarbonate IV push, albuterol nebulizer once resolved now #Starvation ketoacidosis/malnutrition/electrolyte abnormalities/ hypophosphatemia -pt is on tube feds #Hypertensive urgency -on 01/17 the patient's p.o. meds were started but she has continued to refuse p.o. meds.? Can restart these again when she has a PEG tube -bp is stable #History of DVT on Eliquis Eliquis on hold because of surgical procedures 01/26 Hb stable, resume Eliquis p.o. when it is okay for general surgeon #GERD -continue Protonix multiple pressure ulcers consult wound care wound dressing changed out today patient has difficulty with swallowing sp g tube with tube feds Pt likely benefits from placement given condition and comorbidities Subjective Date/time seen: 01/29/24 13:21 Interval history: Ms. Perez is a 58-year-old female who has past medical history multiple sclerosis, functional quadriplegia, dementia with depression and behavioral disturbance, schizoaffective disorder, chronic anemia, solitary kidney status post renal carcinoma asthma, COPD, hypertension, history of ESBL UTI, hypertension, history of DVT on Eliquis, GERD presents from long term with altered mental status.? She was just discharged on January 09 facility due to delirium and failure to thrive and sepsis
[2024-01-29 17:40] LABS: Glucose Point of Care 118 mg/dl (65-105)
[2024-01-29] MEDS: traZODone HCL 50 MG TABLET PO (20:15)
[2024-01-30] VITALS (12 sets, daily range): BP systolic 105–120; BP diastolic 70–79; PULSE 96–120; RESP 18–20; TEMP 35.9–37.2; O2SAT 99–100
[2024-01-30] MEDS: METOPROLOL TARTRATE 50 MG TAB PO ×2 (09:35→20:27)
[2024-01-30] MEDS: MULTIVIT W/ IRON, MINERALS 15 ML LIQUID (*BKC) FEED TUBE (09:35)
[2024-01-30] MEDS: SODIUM BICARBONATE TAB 650 MG TABLET PO ×2 (09:35→17:19)
[2024-01-30] MEDS: VITAMIN B COMPLEX CAPSULE 1 CAP FEED TUBE (09:35)
[2024-01-30] MEDS: THIAMINE HCL 100 MG TABLET 300 MG FEED TUBE (09:35)
[2024-01-30 11:33] LABS: Glucose Point of Care 89 mg/dl (65-105)
[2024-01-30 12:36] LABS: Glucose Point of Care 105 mg/dl (65-105)
[2024-01-30] MEDS: CENTRAL LINE FLUSH 10 ML IV PUSH ×2 (14:25→20:28)
--- NOTE | 2024-01-30 17:39 | PM.IMPN ---
Progress Note: A&P Assessment and Plan (1) Acute encephalopathy: Code(s): G93.40 - Encephalopathy, unspecified Status: Acute (2) Malnutrition: Code(s): E46 - Unspecified protein-calorie malnutrition Status: Acute (3) Pyelitis: Code(s): N12 - Tubulo-interstitial nephritis, not specified as acute or chronic Status: Acute (4) Delirium: Code(s): R41.0 - Disorientation, unspecified Status: Acute (5) History of infection with vancomycin resistant Enterococcus (VRE): Code(s): Z86.19 - Personal history of other infectious and parasitic diseases Status: Acute (6) Hyperkalemia: Code(s): E87.5 - Hyperkalemia Status: Acute Plan #acute anemia -hemoglobin 6.3 on 01/25. Status post 2 units PRBC infusion. Stable. She had some diarrhea which is not resolved. -continue to monitor as Eliquis is being restarted. #Sepsis secondary to pyelonephritis -completed Zyvox and meropenem. Unclear if she has persistent sepsis. Leukocytosis very mild. Check procalcitonin. Afebrile. She has been restarted on metoprolol will give additional 25 mg p.o. x1 dose and assess for response. -due to the patient's anatomical status unable to obtain urine samples.? If patient declines urology you may have to intervene.? There were notified in the ER. -meropenem and Zyvox started on admission on 01/17/2024.? Continue these.? History of ESBL and VRE. #Acute encephalopathy with history of dementia depression and schizoaffective disorder -at time she is cantankerous. -trazodone and citalopram restarted. #Metabolic acidosis -multifactorial.? Starvation ketoacidosis plus hypochloremic acidosis.? -improved however she was placed on sodium bicarbonate supplementation. Tomorrow will check electrolytes assess for presence of refeeding syndrome. Will attempt to deescalate sodium bicarb administration. #acute hypokalemia -likely due to poor oral intake. ?Now resolved #hypotension -resolved. Possibly multifactorial. Continue to monitor especially since giving additional doses of metoprolol. #hyperkalemia -resolved status post #Starvation ketoacidosis/malnutrition/electrolyte abnormalities/ hypophosphatemia -pt is on tube feds -check refeeding syndrome electrolytes in the morning as we plan for discharge. #Hypertensive urgency -resolved. #History of DVT on Eliquis -restart Eliquis on 01/30/2024 #GERD -continue Protonix #multiple pressure ulcers -wound care consulted FEN: Tube feeds. GI prophylaxis: Continue Protonix DVT prophylaxis: Eliquis Lines: MediPort, chronic Naranjo catheter Code Status: Full code Dispo: Monitor refeeding syndrome electrolytes in the morning, monitor hemoglobin and tachycardia status post addition of metoprolol. Monitor leukocytosis and check procalcitonin. Hopefully discharge to group home tomorrow. Subjective Date/time seen: 01/30/24 17:39 Interval history: No acute overnight events. Review of Systems Review of Systems: All systems reviewed & are unremarkable except as noted in HPI and below (Subjective) Exam Const: General: comfortable and no acute distress Other: A&O x2 Eyes: Pupils: Equal, round and reactive pupils present Neck: Neck: supple Resp: Effort & Inspection: normal respiratory effort Auscultation: clear to auscultation bilaterally Cardio: Rate: regular rate Rhythm: regular rhythm GI: GI Palp: Yes Soft to palpation Extrem: General: no edema Objective Data Vital Signs Vital Signs: Vital Signs - 24 hr 01/29/24 20:15 01/29/24 21:20 01/29/24 20:00 Temperature 98.2 F Pulse Rate 111 H 108 H 105 H Respiratory Rate 20 Blood Pressure 129/68 Pulse Oximetry 100 Oxygen Delivery 01/30/24 00:00 01/30/24 04:00 01/30/24 05:48 Temperature 99.0 F Pulse Rate 99 116 H 114 H Respiratory Rate 18 Blood Pressure 109/79 Pulse Oximetry 100 Oxygen Delivery 01/30/24 09:35 05
[2024-01-30] MEDS: METOPROLOL TARTRATE 25 MG TABLET PO (17:46)
[2024-01-30 18:19] LABS: Glucose Point of Care 100 mg/dl (65-105)
--- NOTE | 2024-01-30 19:09 | PC.NURSE ---
On 01/30/24, the ELEVATOR CONSTRUCTOR HELPER, Ruthann, provided care and [facility]. I have reviewed the ELEVATOR CONSTRUCTOR HELPER's documentation and agree with the findings.
[2024-01-30] MEDS: APIXABAN 5 MG TABLET PO (20:26)
[2024-01-30] MEDS: traZODone HCL 50 MG TABLET PO (20:27)
[2024-01-31] VITALS (8 sets, daily range): BP systolic 114–116; BP diastolic 64–68; PULSE 85–106; RESP 16–18; TEMP 36.2–36.8; O2SAT 96–99
[2024-01-31 00:02] LABS: Glucose Point of Care 96 mg/dl (65-105)
[2024-01-31 05:02] LABS: Basophils Absolute Auto 0.1 K/mm3 (0.0-0.1); Basophils Percent Auto 0.5 % (0.2-1.2); Eosinophils Absolute Auto 0.3 K/mm3 (0-0.3); Eosinophils Percent Auto 3.5 % (0-4.4); Hematocrit 27.8 % (37.0-47.0); Hemoglobin 8.9 g/dL (12.0-15.0); Immature Granulocyte Absolute 0.05 K/mm3 (0.00-0.031); Immature Granulocyte Percent A 0.5 % (0-0.5); Lymphocytes Absolute Auto 1.99 K/mm3 (0.9-3.2); Lymphocytes Percent Auto 20.6 % (18.3-44.2); Mean Corpuscular Hemoglobin 28.1 pg (26-34); Mean Corpuscular Volume 87.7 fl (80-100); Mean Platelet Volume 10.3 fl (7.4-10.4); Monocytes Absolute Auto 0.8 K/mm3 (0.1-0.6); Monocytes Percent Auto 7.9 % (2.6-8.5); Neutrophils Absolute Auto 6.5 K/mm3 (1.3-6.7); Platelet Count Result 271 k/mm3 (150-375); Red Blood Count 3.17 M/mm3 (4.2-5.4); Red Cell Distribution Width 18.6 % (11.5-14.5); White Blood Count 9.6 K/mm3 (4.5-10.0)
[2024-01-31] MEDS: CENTRAL LINE FLUSH 10 ML IV PUSH ×2 (05:07→13:05)
[2024-01-31 05:16] LABS: Alanine Aminotransferase 10 U/L (6-35); Albumin Level 2.8 g/dL (3.5-5.1); Alkaline Phosphatase 123 U/L (38-126); Anion Gap 3 mmol/L (4-12); Aspartate Amino Transferase 16 U/L (14-36); Bilirubin,Total 0.5 mg/dL (0.2-1.3); Blood Urea Nitrogen 35 mg/dL (7-17); Calcium 8.5 mg/dL (8.4-10.2); Carbon Dioxide 28 mmol/L (22-30); Chloride 108 mmol/L (98-107); Estimated CRCL calculation 63 ml/min; Estimated Glomerular Filt Rate > 60; Glucose 106 mg/dL (65-110); Magnesium 1.8 mg/dL (1.6-2.3); Phosphorus 3.6 mg/dL (2.5-4.5); Potassium 3.9 mmol/L (3.4-5.0); Sodium 139 mmol/L (137-145)
[2024-01-31 05:37] LABS: Glucose Point of Care 105 mg/dl (65-105)
[2024-01-31 06:39] LABS: Procalcitonin 0.1 ng/mL
[2024-01-31] MEDS: MULTIVIT W/ IRON, MINERALS 15 ML LIQUID (*BKC) FEED TUBE (09:36)
[2024-01-31] MEDS: METOPROLOL TARTRATE 50 MG TAB PO (09:36)
[2024-01-31] MEDS: APIXABAN 5 MG TABLET PO (09:37)
[2024-01-31] MEDS: PANTOPRAZOLE 40 MG TABLET PO (09:37)
[2024-01-31] MEDS: THIAMINE HCL 100 MG TABLET 300 MG FEED TUBE (09:37)
[2024-01-31] MEDS: CITALOPRAM HYDROBROMIDE 10 MG TABLET 30 MG PO (09:37)
[2024-01-31] MEDS: VITAMIN B COMPLEX CAPSULE 1 CAP FEED TUBE (09:37)
[2024-01-31] MEDS: SODIUM BICARBONATE TAB 650 MG TABLET PO ×2 (09:37→17:01)
[2024-01-31 11:24] LABS: Glucose Point of Care 95 mg/dl (65-105)
--- NOTE | 2024-01-31 11:51 | PM.DS ---
DS: Admitting Diagnosis Discharge Date January 31, 2024 Admitting Diagnosis Altered mental status DS: Discharge Diagnosis Discharge Diagnosis (1) Altered mental status: Code(s): R41.82 - Altered mental status, unspecified Status: Acute (2) Metabolic acidosis: Code(s): E87.20 - Acidosis, unspecified Status: Acute (3) Hypophosphatemia: Code(s): E83.39 - Other disorders of phosphorus metabolism Status: Acute (4) Poor intravenous access: Code(s): Z78.9 - Other specified health status Status: Acute (5) Hyperkalemia: Code(s): E87.5 - Hyperkalemia Status: Acute (6) Anorexia: Code(s): R63.0 - Anorexia Status: Acute (7) Pyelitis: Code(s): N12 - Tubulo-interstitial nephritis, not specified as acute or chronic Status: Acute DS: Summary Hospital Course Hospital Course: Ms. Perez is a 58-year-old female who has past medical history multiple sclerosis, functional quadriplegia, dementia with depression and behavioral disturbance, schizoaffective disorder, chronic anemia, solitary kidney status post renal carcinoma, asthma, COPD, hypertension, history of ESBL UTI, hypertension, history of DVT on Eliquis, GERD presents from intermediate with altered mental status.?She was just discharged on January 09 from our facility due to delirium and failure to thrive and sepsis of unknown origin.? She is a resident of [facility] she was noted to have a fever and be altered. Again on this admission she had failure to thrive and altered mental status. She often has behavioral disturbance due to her psychiatric conditions. On last admission she was evaluated on 01/09/[address] Jones dale consult. He noted the patient to be on trazodone and advised Celexa be increased to 30 mg q.day. ultimately her altered mental status may have been due to multitude of conditions and compound by her schizoaffective disorder. Please see the following for treatments pertaining to this hospital course: #acute anemia -hemoglobin 6.3 on 01/25.?Status post 2 units PRBC infusion her hemoglobin remained stable between 8-9 even after her Eliquis was restarted. #Sepsis secondary to pyelonephritis -completed Zyvox and meropenem.? Sepsis resolved. #dementia with depression and schizoaffective disorder and behavioral disturbance -she is cantankerous at times, fluctuates between A&O x1 and 3. Intermittently cooperative -trazodone continued. Citalopram increased to 30 mg p.o. follow-up in outpatient setting, increase in SSRI and SNRI take weeks to take effect. #Metabolic acidosis -multifactorial.? Starvation ketoacidosis plus hypochloremic acidosis.? Improved. She was also placed on sodium minute tablets #hypo and hyperkalemia -hypokalemia resolved status post replacement and thereafter she became hyperkalemic. Resolved as well. #hypotension -resolved.? Multifactorial #Starvation ketoacidosis/malnutrition/electrolyte abnormalities/hypophosphatemia -hypophosphatemia resolved. Electrolytes stable on discharge. Continue tube feeds ongoing. This was due to self-care deficit and refusal to eat. PEG tube placed on 01/[address] Sosa -due to her contractures and very poor peripheral access a smart port was placed in the left IJ by Dr. Branham of general surgery. #Hypertensive urgency -resolved. Metoprolol increased from 50 mg p.o. b.i.d. to 75 mg p.o. b.i.d.. #History of DVT on Eliquis -restarted Eliquis on 01/30/2024 #GERD -continue Pepcid on discharge #multiple pressure ulcers -did not appear infected. Wound care ongoing. On 01/31/2024 her multiple medical issues are stable. She is tolerating tube feeds. Discharge back to her usual half-way care at intermediate. Continue to feeds continue wound care. Follow-up with primary doctor for multiple medical issues and neurocognitive decline. The patient was full code during her admission. Time Spent with Patient Time at
[2024-01-31 13:09] LABS: SARS-CoV-2 RNA PCR Negative (Negative)
[2024-01-31 17:49] LABS: Glucose Point of Care 122 mg/dl (65-105)
== END 2024-01-31 17:47 | DRG 853 ==
LOC: ANHED 21:13 → ANHIMU 21:22 → ANH2MED 01-20 09:43 → ANHICU 01-24 04:18 → ANHIMU 01-25 06:41 → ANH3MEDSUR 01-25 18:19
PROVIDERS: Emergency Medicine; Family Medicine; Hospitalist; Internal Medicine Gastroenterology; Internal Medicine Nephrology; Surgery; Admitting Provider General Practice; Emergency Provider Physician Assistant; PCP Internal Medicine; Visit Provider General Practice
PROC: 0DH63UZ Insertion of Feeding Device into Stomach, Percutaneous Approach (ICD-10-PCS; CPT 43246; principal; 2024-01-21 15:00)
PROC: 0JH60WZ Insertion of Totally Implantable Vascular Access Device into Chest Subcutaneous Tissue and Fascia, Open Approach (ICD-10-PCS; principal; 2024-01-25 10:30)
DX: A41.9 Sepsis, unspecified organism (principal); G93.41 Metabolic encephalopathy; L89.153 Pressure ulcer of sacral region, stage 3; R53.2 Functional quadriplegia; N12 Tubulo-interstitial nephritis, not specified as acute or chronic; F03.918 Unspecified dementia, unspecified severity, with other behavioral disturbance; E87.21 Acute metabolic acidosis; E87.29 Other acidosis; E46 Unspecified protein-calorie malnutrition; J96.10 Chronic respiratory failure, unspecified whether with hypoxia or hypercapnia; D62 Acute posthemorrhagic anemia; Z20.822 Contact with and (suspected) exposure to COVID-19; G35 Multiple sclerosis; I16.0 Hypertensive urgency; F32.A Depression, unspecified; F25.9 Schizoaffective disorder, unspecified; D64.9 Anemia, unspecified; K21.9 Gastro-esophageal reflux disease without esophagitis; I10 Essential (primary) hypertension; E83.39 Other disorders of phosphorus metabolism; D32.9 Benign neoplasm of meninges, unspecified; E87.6 Hypokalemia; E87.5 Hyperkalemia; J44.9 Chronic obstructive pulmonary disease, unspecified; R13.10 Dysphagia, unspecified; R62.7 Adult failure to thrive; Z85.528 Personal history of other malignant neoplasm of kidney; Z90.5 Acquired absence of kidney; Z86.718 Personal history of other venous thrombosis and embolism; Z79.01 Long term (current) use of anticoagulants; R63.0 Anorexia; Z68.26 Body mass index [BMI] 26.0-26.9, adult; Z86.711 Personal history of pulmonary embolism; Z86.19 Personal history of other infectious and parasitic diseases; L89.319 Pressure ulcer of right buttock, unspecified stage; L89.619 Pressure ulcer of right heel, unspecified stage; L89.899 Pressure ulcer of other site, unspecified stage
CPT/HCPCS: 36415; 36430; 36600; 43246; 70450; 70496; 70498; 71045; 71275; 74177; 77001; 80048; 80053; 80307; 81001; 82010; 82140; 82550; 82728; 82948; 83540; 83550; 83605; 83735; 84100; 84145; 85025; 85027; 85610; 85730; 86850; 86900; 86901; 86923; 87040; 87635; 87637; 93005; 94640; 96361; 96365; 96372; 96375; 99285; A9270; C1788; C9113; G0378; J0360; J0612; J0690; J1642; J1644; J1650; J1815; J2020; J2185; J2704; J3010; J3475; J3480; J7030; J7040; J7042; J7050; J7120; P9016; P9047; Q9967

== ENCOUNTER 2024-06-20 10:23 | Inpatient (IN) | payer MEDICARE, MEDICAID, SELFPAY ==
[2024-06-20] VITALS (14 sets, daily range): BP systolic 95–145; BP diastolic 65–91; PULSE 89–107; RESP 15–21; TEMP 36.6–37.4; O2SAT 91–98; BMI 27.8
--- NOTE | ~2024-06-20 | XR_ITS ---
XR chest 1V Ordering provider: Betsy León APRN History: 59 years Female with . bibasilar crackles, lethargy . Comparison: November 26, 2023 FINDINGS: MEDIASTINUM: The cardiac silhouette is not enlarged. Left Port-A-Cath with the tip unchanged from pre vious examination. Congestive haydee. LUNGS: No effusions or pneumothorax. Opacification in the right perihilar area which may be due to pn eumonia versus a mass. Opacification in the left lung base is also noted. OTHER: No free air under the diaphragm. IMPRESSION: Right perihilar upper lobe pneumonia versus a mass. Follow-up to resolution advised. Opacification in the left lung base suggestive of atelectasis versus pneumonia. Reviewed, dictated and finalized at location A. IMPRESSION: Right perihilar upper lobe pneumonia versus a mass. Follow-up to resolution adv ised. Opacification in the left lung base suggestive of atelectasis versus pneumonia.
--- NOTE | ~2024-06-20 | CT_ITS ---
EXAMINATION: CT brain wo con DATE: 06/20/2024 11:34 INDICATION: Altered mental status TECHNIQUE: Computed tomography (CT) of the head was performed without intravenous contrast. Sagittal and coronal reconstructions were performed. The mA was adjusted according to patient size. Iterative reconstruction technique was employed. The dose-length product was 756.67 mGy-cm. COMPARISON: head CT and CT angiogram dated 01/17/2024 FINDINGS: No acute intracranial hemorrhage, acute infarction or abnormal extra axial fluid collection. There is unchanged moderate scattered white matter hypoattenuation consistent with chronic small vessel ische basil disease. Symmetric prominence of the sulci and and subarachnoid spaces overlying the convexities consistent with moderate diffuse cerebral volume loss. Ventricles are normal and symmetric. Unchanged 1.1 cm previously demonstrated enhancing left suprasellar mass most likely a meningioma. The orbits and mastoid air cells are normal. Mild mucosal thickening in the bilateral ethmoid sinuses. IMPRESSION: 1. No acute intracranial process. 2. Moderate diffuse volume loss and moderate scattered white matter hypoattenuation consistent with c hronic small vessel ischemic disease. 2. 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 Reviewed, dictated and finalized at location B. IMPRESSION: 1. No acute intracranial process. 2. Moderate diffuse volume loss and moderate scattered white matter hypoattenua tion consistent with chronic small vessel ischemic disease. 2. 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
--- NOTE | ~2024-06-20 | CT_ITS ---
EXAMINATION:CT diagnostic chest w con DATE: 06/21/2024 09:15 INDICATION: Right lung mass. TECHNIQUE: Computed tomography (CT) of the chest was performed with 75 mL Omnipaque 350 intravenous c ontrast. Automated exposure control and iterative reconstruction technique were employed. The dose-le ngth product (DLP) was 262.73 mGy-cm. COMPARISON: Chest single view 06/20/2024, chest CT 01/20/2024 FINDINGS: The lung volumes are small. There are airspace opacities in the inferior and dependent lung s, right worse than left. There are small pleural effusions. The heart size is normal. No pericardial effusion. There is a left internal jugular port with tip in superior vena cava. There are changes of right nephrectomy. There are stones in left kidney. There is kyphosis of thoracic spine with chronic anterior wedging of multiple vertebral bodies. IMPRESSION: 1. Small pleural effusions. 2. Small lung volumes with airspace opacities in the inferior and dependent lungs, likely at least pr edominantly atelectasis. Airspace opacities in right lower lobe are indeterminate for pneumonia. Reviewed, dictated and finalized at location A. IMPRESSION: 1. Small pleural effusions. 2. Small lung volumes with airspace opacities in the inferior and dependent prabhu gs, likely at least predominantly atelectasis. Airspace opacities in right lowe r lobe are indeterminate for pneumonia.
--- NOTE | 2024-06-20 10:41 | ECG_ITS ---
Test Date: 2024-06-20 10:55:34 Measurements Intervals [place] Rate: 90 P: 31 MT: 149 QRS: 3 QRSD: 82 T: 34 QT: 378 QTc: 463 Interpretive Statements SINUS RHYTHM LOW QRS VOLTAGE IN PRECORDIAL LEADS CONSIDER INFERIOR INFARCT, AGE INDETERMINATE BASELINE ARTIFACT- I, II, III, AVR, AVL ABNORMAL ECG No previous ECG available for comparison Electronically Signed On 06-20-2024 11:16:10 CDT by Murali Osei D.O.
[2024-06-20 10:52] LABS: Basophils Percent Auto 0.1 % (0.2-1.2); Eosinophils Absolute Auto 0.2 K/mm3 (0-0.3); Eosinophils Percent Auto 1.2 % (0-4.4); Hematocrit 33.4 % (37.0-47.0); Immature Granulocyte Absolute 0.05 K/mm3 (0.00-0.031); Immature Granulocyte Percent A 0.4 % (0-0.5); Lymphocytes Absolute Auto 1.36 K/mm3 (0.9-3.2); Lymphocytes Percent Auto 9.8 % (18.3-44.2); Mean Corpuscular HGB Conc 29.9 g/dl (32-36); Mean Platelet Volume 10.4 fl (7.4-10.4); Monocytes Absolute Auto 0.4 K/mm3 (0.1-0.6); Monocytes Percent Auto 2.9 % (2.6-8.5); Neutrophils Absolute Auto 11.9 K/mm3 (1.3-6.7); Neutrophils Percent Auto 85.6 % (45.5-73.1); Platelet Count Result 269 k/mm3 (150-375); Red Blood Count 3.84 M/mm3 (4.2-5.4); Red Cell Distribution Width 15.4 % (11.5-14.5); White Blood Count 13.9 K/mm3 (4.5-10.0)
[2024-06-20 11:03] LABS: Alanine Aminotransferase 11 U/L (6-35); Alkaline Phosphatase 218 U/L (38-126); Anion Gap 9 mmol/L (4-12); Aspartate Amino Transferase 21 U/L (14-36); Bilirubin,Total 0.7 mg/dL (0.2-1.3); Blood Urea Nitrogen 39 mg/dL (7-17); Calcium 9.4 mg/dL (8.4-10.2); Carbon Dioxide 25 mmol/L (22-30); Chloride 109 mmol/L (98-107); Estimated CRCL calculation 31 ml/min; Estimated Glomerular Filt Rate 36; Glucose 109 mg/dL (65-110); Potassium 4.5 mmol/L (3.4-5.0); Sodium 143 mmol/L (137-145)
[2024-06-20 11:03] LABS: Lactic Acid Reflex 0.9 mmol/L (0.7-2.0)
[2024-06-20 11:08] LABS: INR 1.9; Prothrombin Time 21.9 Seconds (11.1-14.7)
[2024-06-20 11:12] LABS: Hypochromasia 1+; Platelet Estimate Adequate (Adequate); Schistocytes None Seen
--- NOTE | 2024-06-20 11:17 | ED.AMS ---
HPI - Altered Mental Status General Chief Complaint: Altered Mental Status Stated Complaint: AMS Time Seen by Provider: 06/20/24 10:41 History of Present Illness HPI narrative: This is a 59-year-old female with a past medical history significant for multiple sclerosis, functional quadriplegia, dementia and schizoaffective disorder. She was has a history of DVT presently on Eliquis and history of ESBL UTIs. He is well-known to this facility instead previous admissions for altered mental status and encephalopathy. She presents to the ED today for concerns of altered mental status from her nursing facility. Patient was slightly more lethargic on evaluation by the staff this morning. She is normally alert oriented x2. On my encounter the patient she is awake answer questions and very pleasant. She states she knows where she is and her name but is not sure what the year is or the month. This is at her baseline according to review of the chart. She is expressing desire for Naranjo catheter replaced and she feels like would make her feel better but has no other acute complaints and expressed desire for discharge back to her facility as she did not want to go to the hospital today. She denies any headache, vision changes, abdominal pain, nausea, vomiting, back pain. She appears with put together well taking care of and not any acute distress. She has normal reassuring vital signs without any tachycardia, fever, hypoxia or blood pressure concerns. Related Data Home Medications Medication Instructions Recorded Confirmed cholecalciferol (vitamin D3) 1,000 units PO DAILY 12/17/22 01/17/24 famotidine 20 mg tablet 20 mg feeding tube BID 12/17/22 01/17/24 ipratropium bromide 0.02 % 1 ml inhalation DAILY PRN 12/17/22 01/17/24 solution for inhalation Shortness Of Breath ondansetron 4 mg disintegrating 4 mg translingual QID PRN Nausea 12/17/22 01/17/24 tablet And Vomiting trazodone 50 mg tablet 50 mg feeding tube HS 12/17/22 01/17/24 hydrocodone 5 mg-acetaminophen 325 1 tablet feeding tube Q6H PRN Pain 07/27/23 01/17/24 mg tablet sennosides 8.6 mg tablet (senna) 8.6 mg feeding tube DAILY PRN 07/27/23 01/17/24 Constipation apixaban 5 mg tablet (Eliquis) 5 mg feeding tube Q12HR 06/20/24 citalopram 20 mg tablet 30 mg feeding tube HS 06/20/24 dextran 70-hypromellose eye drops 1 drp EACH EYE 4-6XD 06/20/24 (Artificial Tears (dextran 70-hypromellose) eye drops) metoprolol tartrate 50 mg tablet 75 mg feeding tube BID 06/20/24 oxycodone 5 mg capsule 5 mg feeding tube TID 06/20/24 pregabalin 75 mg capsule 75 mg feeding tube DAILY 06/20/24 Allergies Allergy/AdvReac Type Severity Reaction Status Date / Time No Known Allergies Allergy Verified 01/21/24 11:07 Review of Systems Review of Systems: As reviewed above in HPI [facility] Past Medical History Medical History Acute encephalopathy Acute on chronic anemia Anemia Anorexia Anorexia Asthma Calculus of kidney Chronic obstructive pulmonary disease Chronic respiratory failure with hypoxia, on home oxygen therapy Previously documented that the patient is oxygen dependent on 4 L nasal cannula however she denies and is on room air with good SpO2 as of 07/27/2023. Colitis COPD (chronic obstructive pulmonary disease) Dementia Depression Essential (primary) hypertension Extended spectrum beta lactamase (ESBL) resistance Fecal impaction Functional quadriplegia secondary to MS Generalized anxiety disorder GI bleed HTN (hypertension) Hyperlipidemia LEOLA (iron deficiency anemia) Intestinal obstruction Malignant neoplasm of right kidney Malnutrition MRSA infection Multiple sclerosis Multiple sclerosis Overactive bladder Pulmonary embolism (2014) Pyelonephritis Retained ureteral stent Schizoaffective disorder Schizophrenia Ureteral stent present Urinary retention Urinary tract infection due to extended-spectrum beta lactamase (ESBL) producing Escherichia coli Xanthogranulomatous pyelonephritis Surgical History Surgical History History of nephrostomy History of removal of ureteral stent 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 History of tubal ligation Family History Family History Mother Family history of multiple sclerosis Hypertension Father Patient's father is Social History Social History Social History: Patient is a ramos of the [facility]. Her guardian is Abe Burnham ([phone]). Code status: Full code. Smoking packs per day: 0.5 Smoking cigarettes per day: 10.0 Years smoked: 1 Smoking pack-years: 0.50 Smoking status: Never smoker Tobacco type: cigarettes Second hand tobacco smoke exposure: No Alcohol intake: unknown Substance use: unknown Do You Feel Safe in your Home?: No Lack of Transportation: No Lack of Food: Never True Current Housing: I Have Housing Concerned About Future Housing: No Difficulty Paying Gas/Electric Bills: No Difficulty Paying for Meds: No Currently Unemployed: No Education: High School Diploma/GED Difficulty w/ Childcare or Family Care: No Living arrangements: [facility] Additional living arrangements comments: 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ion: other Additional occupation/education comments: Disabled Spiritual care concerns: No Agree to blood products: Yes Exam Narrative: GENERAL: Chronically ill-appearing but not in any acute distress, calm and pleasant, awake and alert x2 HEAD: [Normocephalic, atraumatic.] EYES: [PERRLA and EOMI.] ENT: Nares clear, no rhinorrhea or epistaxis. Mucous membranes appeared chronic, no tongue fasciculations NECK: Supple. CHEST: [Clear to auscultation. No respiratory distress.] HEART: [Regular rate and rhythm]. No murmur heard. [Normal peripheral pulses.] ABDOMEN: [Soft, nondistended], [nontender], [No rigidity or guarding] EXTREMITIES: Contractures noted in all extremities, she does have a stage I ulceration of her right medial aspect of her knee that appears well taking care with dressing over top SKIN: Warm, dry, skin also as described above NEURO: Functional quadriplegia, no new acute findings, no facial asymmetry PSYCH: Pleasant and cooperative Course Vital Signs Vital signs: Vital Signs Temperature 37.4 C 06/20/24 10:42 Pulse Rate 92 06/20/24 10:42 Respiratory Rate 16 06/20/24 10:42 Blood Pressure 137/81 06/20/24 10:42 Pulse Oximetry 94 06/20/24 10:42 Oxygen Delivery Room Air 06/20/24 10:42 Temperature 37.4 C 06/20/24 10:42 Pulse Rate 89 06/20/24 13:15 Respiratory Rate 20 06/20/24 13:15 Blood Pressure 110/80 06/20/24 13:15 Pulse Oximetry 94 06/20/24 13:15 Oxygen Delivery Room Air 06/20/24 10:42 MDM - Altered Mental Status MDM Narrative Medical decision making narrative: 59-year-old female with extensive medical history including MS with functional quadriplegia, dementia schizoaffective disorder. She is alert oriented x2 at baseline. She has a history of ESBL UTIs in the past. Was sent in from her group home facility for concerns of mental status changes were she was slightly more lethargic this morning. She is presently awake alert and oriented at her baseline and answers all my questions appropriately. She has normal reassuring vital signs of any fever, tachycardia, hypoxia hypertension, hypotension. She has no acute complaints presently is actually expressed desire to be sent back to her facility as she did not want [facility] as she felt fine. No overt focal findings on her examination. She has chronic functional quadriplegia from MS but no new neurological issues identified. She appears well taken care of. Skin bandages from minor ulcerations appear recently changed from yesterday. Given the nursing homes concerns for encephalopathy with slightly altered mental status a workup was initiated including septic bundle, head CT, CBC, CMP, urinalysis with straight catheterization, fluid bolus, lactic acid. No empiric antibiotics are needed at this time given lack of focal findings and no fever or significant SIRS criteria at this time. Workup revealed a leukocytosis of 13.9, stable anemia with hemoglobin 10.0. Electrolyte panel shows a RADHA with a BUN of 39 and creatinine 1.50, this is approximately 3 times her baseline. Negative lactic acid, normal hepatic function panel aside from mildly elevated alk-phos. Urinalysis with straight catheterization and Naranjo placement reveals a urinary tract infection. Head CT revealed no acute intracranial process on review by myself and interpretation by Radiology. Patient's chart was reviewed and she has an extended history of antibiotic resistant organisms growing in urine. Previous ESBL E coli, previous bursa,, previous VRE Enterococcus. Cultures were reviewed as well as antibiotic susceptibilities and she was started on linezolid while urine culture here is pending. Patient will require admission to the hospital for continued IV antibiotic treatment for urinary tract infection and acute kidney injury. She was given total 2 L of fluid which is approximately 30 cc/kg. She is not septic with minimal SIRS criteria. Blood cultures pending. I discussed the case with the hospitalist being covered by the [facility] at this time. We discussed patient's case, imaging findings, plan of care with antibiotics and they were agreeable to accept the patient for admission to [facility] at this time. Patient remained hemodynamically stable and reassess frequently. She was safely admitted at this time. Medical Records Attestation: I reviewed the patient's medical records. Lab Data Attestation: I reviewed the patient's lab results. 06/20/24 10:43 06/20/24 10:43 Labs: Lab Results 06/20/24 06/20/24 06/20/24 Range/Units 10:43 10:45 11:40 WBC 13.9 H (4.5-10.0) K/mm3 RBC 3.84 L (4.2-5.4) M/mm3 Hgb 10.0 L (12.0-15.0) g/dL Hct 33.4 L (37.0-47.0) % MCV 87.0 (80-100) fl MCH 26.0 (26-34) pg MCHC 29.9 L (32-36) g/dl RDW 15.4 H (11.5-14.5) % Plt Count 269 (150-375) k/mm3 MPV 10.4 (7.4-10.4) fl Immature Gran % (Auto) 0.4 (0-0.5) % Neut % (Auto) 85.6 H (45.5-73.1) % Lymph % (Auto) 9.8 L (18.3-44.2) % [place] % (Auto) 2.9 (2.6-8.5) % Eos % (Auto) 1.2 (0-4.4) % Baso % (Auto) 0.1 L (0.2-1.2) % Lymph # (Auto) 1.36 (0.9-3.2) K/mm3 [place] # (Auto) 0.4 (0.1-0.6) K/mm3 Eos # (Auto) 0.2 (0-0.3) K/mm3 Baso # (Auto) 0.0 (0.0-0.1) K/mm3 Abs Immat Gran (auto) 0.05 H (0.00-0.031) K/mm3 Absolute Neuts (auto) 11.9 H (1.3-6.7) K/mm3 Absolute Nucleated RBC 0.000 (0.0-0.012) K/mm3 Nucleated RBC % 0.0 (0.0-0.2) % Platelet Estimate Adequate (Adequate) Hypochromasia 1+ Schistocytes None seen PT 21.9 H (11.1-14.7) Seconds INR 1.9 APTT 43.0 H (22.3-36.8) Seconds Sodium 143 (137-145) mmol/L Potassium 4.5 (3.4-5.0) mmol/L Chloride 109 H (98-107) mmol/L Carbon Dioxide 25 (22-30) mmol/L Anion Gap 9 (4-12) mmol/L BUN 39 H (7-17) mg/dL Creatinine 1.50 H (0.7-1.0) mg/dL Estim Creat Clear Calc 31 ml/min Estimated GFR 36 L (59 - ) Glucose 109 (65-110) mg/dL Lactic Acid 0.9 (0.7-2.0) mmol/L Calcium 9.4 (8.4-10.2) mg/dL Total Bilirubin 0.7 (0.2-1.3) mg/dL AST 21 (14-36) U/L ALT 11 (6-35) U/L Alkaline Phosphatase 218 H (38-126) U/L Total Protein 9.0 H (6.3-8.2) g/dL Albumin 4.0 (3.5-5.1) g/dL Urine Color Dark yellow (Yellow) Urine Appearance Cloudy H (Clear) Urine pH 7.5 (5.0-9.0) Ur Specific [place] 1.013 (1.001-1.035) Urine Protein 3+ H (Negative) mg/dL Urine Glucose (UA) Negative (Negative) mg/dL Urine Ketones Negative (Negative) mg/dL Ur Blood (Man) 3+ H (Negative) Urine Nitrate Positive H (Negative) Urine Bilirubin Negative (Negative) Urine Urobilinogen 1.0 (<2.0) mg/dL Add Ur Microanalysis Reviewed Leukocyte Esterase Rfl 3+ H (Negative) GOMEZ/UL Urine RBC >100 H (0-2) /hpf Urine WBC >100 H (0-3) /hpf Ur Squamous Epith Cells None seen (Few) /hpf Urine Bacteria 4+ H /hpf Urine Casts 6-10 Imaging Data Attestation: I personally reviewed and interpreted this imaging study as follows: Radiologist's impression: Impressions Head CT 06/20/24 11:37 IMPRESSION: 1. No acute intracranial process. 2. Moderate diffuse volume loss and moderate scattered white matter hypoattenuation consistent with chronic small vessel ischemic disease. 2. 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 Critical Care Time Critical Care Time Critical Care Time: Yes Total Critical Care Time: 15 Discharge Plan Discharge Clinical Impression: Urinary tract infection, Acute kidney injury Patient Disposition: Still a Patient Condition: Stable Prescriptions: No Action famotidine 20 mg tablet 20 mg feeding tube BID trazodone 50 mg tablet 50 mg feeding tube HS ondansetron 4 mg tablet,disintegrating 4 mg translingual QID PRN (Reason: Nausea And Vomiting) ipratropium bromide 0.02 % solution 1 ml inhalation DAILY PRN (Reason: Shortness Of Breath) cholecalciferol (vitamin D3) 1,000 units PO DAILY sennosides [senna] 8.6 mg Tablet 8.6 mg feeding tube DAILY PRN (Reason: Constipation) hydrocodone-acetaminophen 5-325 mg Tablet 1 tablet feeding tube Q6H PRN (Reason: Pain) acetaminophen [Nortemp] 160 mg/5 mL Suspension 650 mg feeding tube Q6H PRN (Reason: Pain Rated 5 Or Less) Qty: 30 0RF Lysiplex Plus Liquid 15 ml feeding tube QAM Qty: 177 0RF sodium bicarbonate 650 mg Tablet 650 mg PO BID Qty: 60 0RF thiamine HCl (vitamin B1) [Vitamin B-1] 100 mg Tablet 300 mg feeding tube QAM Qty: 90 0RF vitamin B complex [Vitamins B Complex] Capsule 1 cap feeding tube QAM Qty: 30 0RF oxycodone 5 mg capsule 5 mg feeding tube TID Artificial Tears([id number]) Drops 1 drp EACH EYE 4-6XD pregabalin 75 mg capsule 75 mg feeding tube DAILY citalopram 20 mg tablet 30 mg feeding tube HS metoprolol tartrate 50 mg tablet 75 mg feeding tube BID Eliquis 5 mg tablet 5 mg feeding tube Q12HR Follow-up/Referrals: KimberLuis Eduardo MD [Primary Care Provider] - Time of Disposition: 14:28
[2024-06-20 12:13] LABS: Bacteria Urine 4+ /hpf; Need Manual Microscopic Reviewed; RBC Urine >100 /hpf (0-2); Squamous Epithelial Cell Urine None Seen /hpf (Few); WBC Urine >100 /hpf (0-3)
[2024-06-20 12:14] LABS: Add Urine Microscopic? YES; Appearance Urine Cloudy (Clear); Bilirubin Urine Negative (Negative); Blood Urine 3+ (Negative); Glucose Urine UA Negative (Negative); Ketones Urine Negative (Negative); Leukocyte Esterase Ur 3+ LEU/UL (Negative); Nitrate Urine Positive (Negative); Protein Urine 3+ mg/dL (Negative); Specific Grav Ur 1.013 (1.001-1.035); pH Urine 7.5 (5.0-9.0)
[2024-06-20 12:16] LABS: Color Urine Dark Yellow (Yellow)
[2024-06-20] MEDS: LACTATED RINGERS 1,000 ML 999 ML IV CONT ×2 (12:38→14:30)
--- NOTE | 2024-06-20 14:02 | P.HP_ITS ---
H&P: HPI History of Present Illness Date/Time: 06/20/24 14:02 Chief Complaint: AMS Narrative: 59 y/o F presents here with AMS with PMH of multiple sclerosis, functional quadriplegia, dementia, COPD/asthma, schizoaffective disorder, anemia, HTN, DVT on anticoagulation, and kidney cancer s/p nephrectomy (R). The patient presents here from [facility] via EMS for further evaluation of altered mental status. HPI primarily obtained through chart review, EMS report, and ED provider report due to patient's baseline mental status. Staff at the facility reported to EMS that patient has been altered since yesterday, unknown time of onset, and further described as increased lethargy. They became concerned that she had a UTI, patient has history of frequent UTIs. At baseline she is A&Ox2, arrived A/Ox2 (self and place). Patient currently denying abdominal pain, nausea, vomiting, diarrhea, constipation, changes in vision, dizziness, cough, shortness of breath, or changes in speech. Endorsing possible fever and chills. Patient unreliable historian due to baseline mental status. Initial VS at presentation: 99.3? F, HR 92, RR 16, 137/81, and 94% on RA. ED workup showed: WBC 13.9, hemoglobin 10.0 (previously 8.9 on 01/31/2024), INR 1.9, creatinine 1.5 and GFR 36 (previously 0.7 and GFR >60 on 01/31/2024), and UA consistent with UTI. 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 Review of Systems Review of Systems: All systems reviewed & are unremarkable except as noted in HPI and below PMFSH Past Medical History Medical History Acute encephalopathy Acute on chronic anemia Anemia Anorexia Anorexia Asthma Calculus of kidney Chronic obstructive pulmonary disease Chronic respiratory failure with hypoxia, on home oxygen therapy Previously documented that the patient is oxygen dependent on 4 L nasal cannula however she denies and is on room air with good SpO2 as of 07/27/2023. Colitis COPD (chronic obstructive pulmonary disease) Dementia Depression Essential (primary) hypertension Extended spectrum beta lactamase (ESBL) resistance Fecal impaction Functional quadriplegia secondary to MS Generalized anxiety disorder GI bleed HTN (hypertension) Hyperlipidemia LEOLA (iron deficiency anemia) Intestinal obstruction Malignant neoplasm of right kidney Malnutrition MRSA infection Multiple sclerosis Multiple sclerosis Overactive bladder Pulmonary embolism (2014) Pyelonephritis Retained ureteral stent Schizoaffective disorder Schizophrenia Ureteral stent present Urinary retention Urinary tract infection due to extended-spectrum beta lactamase (ESBL) producing Escherichia coli Xanthogranulomatous pyelonephritis Surgical History Surgical History History of nephrostomy History of removal of ureteral stent 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 History of tubal ligation Family History Family History Mother Family history of multiple sclerosis Hypertension Father Patient's father is Social History Social History Social History: Patient is a [facility] of the [facility]. Her guardian is Abe Burnham ([phone]). Code status: Full code. Smoking packs per day: 0.5 Smoking cigarettes per day: 10.0 Years smoked: 1 Smoking pack-years: 0.50 Smoking status: Never smoker Second hand tobacco smoke exposure: No Alcohol intake: unknown Substance use: unknown Do You Feel Safe in your Home?: No Lack of Transportation: No Lack of Food: Never True Current Housing: I Have Housing Concerned About Future Housing: No Difficulty Paying Gas/Electric Bills: No Difficulty Paying for Meds: No Currently Unemployed: No Education: High School Diploma/GED Difficulty w/ Childcare or Family Care: No Living arrangements: [facility] Additional living arrangements comments: 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ion: other Additional occupation/education comments: Disabled Spiritual care concerns: No Agree to blood products: Yes Meds Home Medications and Allergies Home Medications Medication Instructions Recorded Confirmed Type cholecalciferol (vitamin D3) 1,000 units PO DAILY 12/17/22 06/20/24 History famotidine 20 mg tablet 20 mg feeding tube BID 12/17/22 06/20/24 History ipratropium bromide 0.02 % 1 ml inhalation DAILY PRN 12/17/22 06/20/24 History solution for inhalation Shortness Of Breath ondansetron 4 mg disintegrating 4 mg translingual QID PRN Nausea 12/17/2206/20 History tablet And Vomiting trazodone 50 mg tablet 50 mg feeding tube HS 12/17/22 06/20/24 History hydrocodone 5 mg-acetaminophen 325 1 tablet feeding tube Q6H PRN Pain 07/27/23 06/20/24 History mg tablet sennosides 8.6 mg tablet (senna) 8.6 mg feeding tube DAILY PRN 07/27/23 06/20/24 History Constipation acetaminophen 160 mg/5 mL oral 650 mg (20.3125 mL) feeding tube 01/31/24 06/20/24 Rx suspension (Nortemp) Q6H PRN Pain Rated 5 Or Less #30 mL sodium bicarbonate 650 mg tablet 650 mg PO BID #60 tabs 01/31/24 06/20/24 Rx thiamine HCl (vitamin B1) 100 mg 300 mg feeding tube QAM #90 tabs 01/31/24 06/20/24 Rx tablet (Vitamin B-1) apixaban 5 mg tablet (Eliquis) 5 mg feeding tube Q12HR 06/20/24 06/20/24 History citalopram 20 mg tablet 30 mg feeding tube HS 06/20/24 06/20/24 History dextran 70-hypromellose eye drops 1 drp EACH EYE 4-6XD 06/20/24 06/20/24 History (Artificial Tears (dextran 70-hypromellose) eye drops) metoprolol tartrate 50 mg tablet 50 mg feeding tube Q8H 06/20/24 06/20/24 History pregabalin 75 mg capsule 75 mg feeding tube DAILY 06/20/24 06/20/24 History quetiapine 25 mg tablet 25 mg feeding tube BID 06/20/24 06/20/24 History Allergies Allergy/AdvReac Type Severity Reaction Status Date / Time No Known Allergies Allergy Verified 01/21/24 11:07 Vital Signs Vital Signs - 24 hr 06/20/24 10:42 06/20/24 11:04 06/20/24 11:48 Temperature 99.3 F Pulse Rate 92 92 93 Respiratory Rate 16 16 Blood Pressure 137/81 122/80 Pulse Oximetry 94 95 Oxygen Delivery Room Air 06/20/24 13:00 06/20/24 13:15 06/20/24 12:00 Temperature Pulse Rate 91 89 90 Respiratory Rate 20 20 17 Blood Pressure 121/78 110/80 126/81 Pulse Oximetry 94 94 96 Oxygen Delivery 06/20/24 12:15 Temperature Pulse Rate 91 Respiratory Rate 15 Blood Pressure 112/73 Pulse Oximetry 95 Oxygen Delivery Exam Const: General: comfortable and no acute distress Other: , female, chronically ill-appearing HENMT: Face/Nose/Sinus: Normal nares present Mouth: Yes moist mucous membranes Eyes: General: appearance normal, both eyes and all related structures Sclera: sclerae normal Pupils: Equal, round and reactive pupils present EOM: EOMs intact bilaterally Resp: Effort & Inspection: normal respiratory effort Auscultation: clear to auscultation bilaterally Cardio: Rate: regular rate Rhythm: regular rhythm Other: S1-S2 present without murmur, rub, ectopy GI: Other: Abdomen soft, nondistended, nontender. G-tube in place. Skin: General skin exam: normal color Rashes: rashes noted Wounds: wounds noted Other: well healed old pressure wound sites to medial buttock fold and lateral gluteal fold on the right and posterior/proximal thigh. gluteal cleft near sacrum healing, wound bed intact but with mild irritation/redness abrasion. right buttock fold deep, healing with very slight erythema. right knee medial circular rash. appears wet, small vesicles, and approx 5x6 cm, blanches. Neuro: Speech: normal speech Sensory Exam: normal sensation Other: A&O x1. +contractures in all extremities. +Functional quadriplegia. Extrem: General: normal exam except as noted Psych: Mental Status: mental status grossly normal Affect: normal affect Other: poor insight and judgment, very pleasant. H&P: Results Labs Labs: Short CBC 06/20/24 Range/Units 10:43 WBC 13.9 H (4.5-10.0) K/mm3 Hgb 10.0 L (12.0-15.0) g/dL Hct 33.4 L (37.0-47.0) % Plt Count 269 (150-375) k/mm3 BMP 06/20/24 10:43 Sodium 143 Potassium 4.5 Chloride 109 H Carbon Dioxide 25 BUN 39 H Creatinine 1.50 H Glucose 109 Calcium 9.4 Liver Function 06/20/24 Range/Units 10:43 Total Bilirubin 0.7 (0.2-1.3) mg/dL AST 21 (14-36) U/L ALT 11 (6-35) U/L Alkaline Phosphatase 218 H (38-126) U/L Albumin 4.0 (3.5-5.1) g/dL Urine 06/20/24 Range/Units 11:40 Urine Color Dark yellow (Yellow) Urine Appearance Cloudy H (Clear) Urine pH 7.5 (5.0-9.0) Ur Specific [place] 1.013 (1.001-1.035) Urine Protein 3+ H (Negative) mg/dL Urine Glucose (UA) Negative (Negative) mg/dL Assessment and Plan Assessment and plan (1) Sepsis: Qualifiers: Sepsis acute organ dysfunction status: unspecified Sepsis type: sepsis due to unspecified organism Qualified Code(s): A41.9 - Sepsis, unspecified organism Code(s): A41.9 - Sepsis, unspecified organism Status: Acute Assessment and Plan: - meets SIRS criteria: HR, WBC. No hypotension or hypoxia. - lactic acid: 0.9 - 30 mL/kg = 1920, given 2L bolus in the ED - suspected source: UTI - started on Linezolid PO and Meropenem IVPB on 06/20 - blood cultures drawn on 06/20 - add CXR, bibasilar crackles on exam (2) Acute encephalopathy: Code(s): G93.40 - Encephalopathy, unspecified Status: Acute Assessment and Plan: - head CT: 1. No acute intracranial process. 2. Moderate diffuse volume loss and moderate scattered white matter hypoattenuation consistent with chronic small vessel ischemic disease. 2. 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 - baseline A&Ox2, currently A&Ox1 - suspect some level of delirium/lethargy related to UTI - monitor (3) UTI (urinary tract infection): Qualifiers: Hematuria presence: with hematuria Urinary tract infection type: acute cystitis Qualified Code(s): N30.01 - Acute cystitis with hematuria Code(s): N39.0 - Urinary tract infection, site not specified Status: Acute Assessment and Plan: - Naranjo exchanged on 06/20 - UA: Cloudy, 3+ protein, 3+ blood, positive nitrates, 3+ leuk esterase, greater than 100 RBC and WBC, no epithelial cells, 4+ bacteria - UC pending - previous micro reviewed, most recent positive UC on 10/17/2023 which showed E coli resistant/intermediate to all antibiotics except for gentamicin, imipenem, meropenem, and Macrobid. Also grew VRE in August of 2023. - discussed previous micro with ID pharmacist, started on Linezolid PO and Meropenem IVPB on 06/20 per his recommendations - avoid serotonergics, will hold patient's trazodone, Seroquel, and citalopram. continue once linezolid course completed. (4) RADHA (acute kidney injury): Code(s): N17.9 - Acute kidney failure, unspecified Status: Acute Assessment and Plan: - creatinine 1.5 and GFR 36, previously 0.7 and GFR >60 on 01/31/2024 - has previous history of AKIs accompanying UTIs. Will start IV fluids and ABX. If no improvement, consider further workup and nephrology consultation. - trend renal function - trend electrolytes, correct as needed (5) Rash, vesicular: Code(s): R23.8 - Other skin changes Status: Acute Assessment and Plan: - vesicular/circular rash to right medial knee, approximately 5 x 6 cm - suspect contact dermatitis related to pressure common knees frequently touch and patient is contracted, cannot rule out HSV/Shingles - would RN consulted (6) Essential (primary) hypertension: Code(s): I10 - Essential (primary) hypertension Status: Acute Assessment and Plan: - chronic, currently 145/91 - continue home medications: Metoprolol - monitor Plan Diet: Heart healthy GI Prophylaxis: Not currently indicated DVT Prophylaxis: Continue home Eliquis Lines: Peripheral Code Status: Full code Quality VTE Prophylaxis VTE prophylaxis: pharmacologic ordered Hospitalist [facility] Advance Care Plan I have confirmed that the patient's Advanced Care Plan is present, code status is documented, or surrogate decision maker is listed in patient medical record.: Yes Medication Reconciliation I have utilized all available resources to obtain, update and review the patients current medications (includes all prescriptions, OTC, herbals, cannabis, and nutritional supplements).: Yes
[2024-06-20] MEDS: LINEZOLID 600 MG/300 ML 600 MG/300 ML SOLN 300 MG IVPB (14:30)
--- NOTE | 2024-06-20 15:17 | PC.NURSE ---
This patient, Yesenia Perez, was admitted to Medical Room 248-. Patient/family oriented to hospital policies and general routines including ID bracelet, bed and alarms, visiting hours, pain management, procedures, bathroom and other care routines, personal items, smoking policy, room service/diet, and visiting hours. Information on how to activate the Rapid Response Team has been discussed. Patient/Family are encouraged to report perceived risks to care and to ask questions if they do not understand what they are told or what they should do.
--- NOTE | 2024-06-20 15:57 | PCDIET ---
Tube feeding recommendations if needed: Jevity 1.5 @ goal rate 50 ml/g to meet estimated 100% energy and protein needs: 1650 kcal, 70 g protein. Flush 200 ml water Q 4 hours for total water 1636 ml/d 2. Flush Maged BID mixed with water flushes twice a day
[2024-06-20] MEDS: MEROPENEM 1 GM/NS 100 ML 1 GM/100 ML BAG IVPB (16:22)
--- NOTE | 2024-06-20 17:41 | PC.NURSE ---
Legal Collector spoke with Nicky ALEJANDRO at [facility] who reports Latesha eats regular diet, and if she eats less than 50% of her meals she should receive a 300ml bolus of jevity 1.5 with 100 H20 flush TID after the meal she did not eat
[2024-06-20] MEDS: METOPROLOL TARTRATE 50 MG TAB FEED TUBE (21:11)
[2024-06-20] MEDS: APIXABAN 5 MG TABLET FEED TUBE (21:11)
[2024-06-20] MEDS: HYDROcodone/acetaminophen (*CRX) 5-325 MG TABLET 1 TAB FEED TUBE (23:58)
[2024-06-20] MEDS: LINEZOLID 600 MG TABLET FEED TUBE (23:59)
[2024-06-21] VITALS (8 sets, daily range): BP systolic 92–151; BP diastolic 52–93; PULSE 69–103; RESP 12–20; TEMP 35.9–36.2; O2SAT 93–97
[2024-06-21] MEDS: MEROPENEM 1 GM/NS 100 ML 1 GM/100 ML BAG IVPB ×2 (03:45→15:16)
[2024-06-21] MEDS: SODIUM CHLORIDE 0.9% IV 1,000 ML 65 ML IV CONT ×2 (04:40→20:17)
[2024-06-21 05:20] LABS: Basophils Percent Auto 0.1 % (0.2-1.2); Eosinophils Absolute Auto 0.3 K/mm3 (0-0.3); Eosinophils Percent Auto 3.5 % (0-4.4); Hematocrit 26.4 % (37.0-47.0); Hemoglobin 7.8 g/dL (12.0-15.0); Immature Granulocyte Absolute 0.03 K/mm3 (0.00-0.031); Immature Granulocyte Percent A 0.4 % (0-0.5); Lymphocytes Absolute Auto 0.98 K/mm3 (0.9-3.2); Lymphocytes Percent Auto 12.7 % (18.3-44.2); Mean Corpuscular HGB Conc 29.5 g/dl (32-36); Mean Corpuscular Hemoglobin 25.5 pg (26-34); Mean Corpuscular Volume 86.3 fl (80-100); Mean Platelet Volume 10.4 fl (7.4-10.4); Monocytes Absolute Auto 0.3 K/mm3 (0.1-0.6); Monocytes Percent Auto 4.1 % (2.6-8.5); Neutrophils Absolute Auto 6.1 K/mm3 (1.3-6.7); Neutrophils Percent Auto 79.2 % (45.5-73.1); Platelet Count Result 237 k/mm3 (150-375); Red Blood Count 3.06 M/mm3 (4.2-5.4); Red Cell Distribution Width 15.5 % (11.5-14.5); White Blood Count 7.7 K/mm3 (4.5-10.0)
[2024-06-21 05:35] LABS: Alanine Aminotransferase 9 U/L (6-35); Albumin Level 3.2 g/dL (3.5-5.1); Alkaline Phosphatase 167 U/L (38-126); Anion Gap 6 mmol/L (4-12); Aspartate Amino Transferase 20 U/L (14-36); Bilirubin,Total 0.5 mg/dL (0.2-1.3); Blood Urea Nitrogen 36 mg/dL (7-17); Calcium 9.1 mg/dL (8.4-10.2); Carbon Dioxide 26 mmol/L (22-30); Chloride 106 mmol/L (98-107); Estimated CRCL calculation 31 ml/min; Estimated Glomerular Filt Rate 36; Glucose 91 mg/dL (65-110); Potassium 3.9 mmol/L (3.4-5.0); Sodium 138 mmol/L (137-145)
[2024-06-21 06:33] LABS: Anisocytosis 1+; Hypochromasia 1+; Platelet Estimate Adequate (Adequate); Schistocytes None Seen
--- NOTE | 2024-06-21 06:44 | PC.NURSE ---
During the morning the patient vitals signs warranted a call to the MD. During this time fluid orders were obtained and parameters for the morning does of Metoprolol were received. Patients BP was 98/54 and HR of 69 and morning does was Held. Will continue to monitor at this time.
--- NOTE | 2024-06-21 07:26 | PM.IMPN ---
Progress Note: A&P Assessment and Plan (1) Sepsis: Qualifiers: Sepsis acute organ dysfunction status: unspecified Sepsis type: sepsis due to unspecified organism Qualified Code(s): A41.9 - Sepsis, unspecified organism Code(s): A41.9 - Sepsis, unspecified organism Status: Acute Assessment and Plan: - meets SIRS criteria: HR, WBC. No hypotension or hypoxia. - lactic acid: 0.9 - 30 mL/kg = 1920, given 2L bolus in the ED - suspected source: UTI - started on Linezolid PO and Meropenem IVPB on 06/20 - blood cultures drawn on 06/20 - CXR: Right perihilar upper lobe pneumonia versus a mass. Follow-up to resolution advised. Opacification in the left lung base suggestive of atelectasis versus pneumonia. - CT chest ordered (2) Acute encephalopathy: Code(s): G93.40 - Encephalopathy, unspecified Status: Acute Assessment and Plan: - head CT: 1. No acute intracranial process. 2. Moderate diffuse volume loss and moderate scattered white matter hypoattenuation consistent with chronic small vessel ischemic disease. 2. 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 - baseline A&Ox2, back to baseline - suspect some level of delirium/lethargy related to UTI - monitor (3) UTI (urinary tract infection): Qualifiers: Hematuria presence: with hematuria Urinary tract infection type: acute cystitis Qualified Code(s): N30.01 - Acute cystitis with hematuria Code(s): N39.0 - Urinary tract infection, site not specified Status: Acute Assessment and Plan: - Naranjo exchanged on 06/20 - UA: Cloudy, 3+ protein, 3+ blood, positive nitrates, 3+ leuk esterase, greater than 100 RBC and WBC, no epithelial cells, 4+ bacteria - UC pending - previous micro reviewed, most recent positive UC on 10/17/2023 which showed E coli resistant/intermediate to all antibiotics except for gentamicin, imipenem, meropenem, and Macrobid. Also grew VRE in August of 2023. - discussed previous micro with ID pharmacist, started on Linezolid PO and Meropenem IVPB on 06/20 per his recommendations - avoid serotonergics, will hold patient's trazodone, Seroquel, and citalopram. continue once linezolid course completed. (4) Pleural effusion: Code(s): J90 - Pleural effusion, not elsewhere classified Status: Acute Assessment and Plan: - CXR: Right perihilar upper lobe pneumonia versus a mass. Follow-up to resolution advised. Opacification in the left lung base suggestive of atelectasis versus pneumonia. - Chest CT: 1. Small pleural effusions. 2. Small lung volumes with airspace opacities in the inferior and dependent lungs, likely at least predominantly atelectasis. Airspace opacities in right lower lobe are indeterminate for pneumonia. - Antibiotics: Meropenem and Linezolid - no supplemental O2 requirement - supportive treatment - Monitor vital signs, I&Os, neuro status and patient is a fall risk - Follow WBC, serum electrolytes, temperature curves and cultures (5) RADHA (acute kidney injury): Code(s): N17.9 - Acute kidney failure, unspecified Status: Acute Assessment and Plan: - creatinine 1.5 and GFR 36, previously 0.7 and GFR >60 on 01/31/2024 - BUN/Cr 36/1.5 on am labs - has previous history of AKIs accompanying UTIs. Will start IV fluids and ABX. If no improvement, consider further workup and nephrology consultation. - trend renal function - trend electrolytes, correct as needed (6) Rash, vesicular: Code(s): R23.8 - Other skin changes Status: Acute Assessment and Plan: - vesicular/circular rash to right medial knee, approximately 5 x 6 cm - suspect contact dermatitis related to pressure common knees frequently touch and patient is contracted, cannot rule out HSV/Shingles - wound RN consulted (7) Essential (primary) hypertension: Code(s): I10 - Essential (primary) hypertension Status: Acute Assessment and Plan: - chronic, stable on home medications. - continue home medications: Metoprolol - monitor Plan Diet: Heart healthy GI Prophylaxis: Not currently indicated DVT Prophylaxis: Continue home Eliquis Lines: Peripheral Code Status: Full code Time Spent With Patient Time with patient: 25 - 35 minutes Subjective Date/time seen: 06/21/24 07:26 Interval history: 59 year old female with past medical history of MS, functional quadriplegia, dementia, COPD/asthma, schizoaffective disorder, anemia, hypertension, DVT on anticoagulation, and kidney cancer s/p right nephrectomy presents to the hospital from [facility] for altered mental status. Patient is pleasant lying comfortably in bed. She is back to her baseline AOx2 (person, place). She states that she feels fine and has no complaints. She denies chest pain, shortness of breath, nausea/vomiting and abdominal pain. Review of Systems Review of Systems: All systems reviewed & are unremarkable except as noted in HPI and below Exam Narrative: AF HR 80 RR 20 SPO2 96 BP 98/54 General: female in no acute respiratory distress, lying semi recumbent in bed. HEENT: Normocephalic. Atraumatic. Extraocular movement intact. Sclera clear and anicteric. No facial asymmetry. Chest: Lungs have slight crackles to the bases bilaterally and diminished throughout. No wheezes. CV: Heart was regular rate and rhythm. S1-S2. No murmurs, gallops, or rubs. Abd: Abdomen was soft. Nontender. Nondistended. Positive bowel sounds. No organomegaly or masses. Ext: Contractures to all extremities. Neuro: Patient is alert and oriented x2 (person, place). Speech is clear. Objective Data Vital Signs Vital Signs: Vital Signs - 24 hr 06/20/24 10:42 06/20/24 11:04 06/20/24 11:48 Temperature 99.3 F Pulse Rate 92 92 93 Respiratory Rate 16 16 Blood Pressure 137/81 122/80 Pulse Oximetry 94 95 Oxygen Delivery Room Air 06/20/24 13:00 06/20/24 13:15 06/20/24 12:00 Temperature Pulse Rate 91 89 90 Respiratory Rate 20 20 17 Blood Pressure 121/78 110/80 126/81 Pulse Oximetry 94 94 96 Oxygen Delivery 06/20/24 12:15 06/20/24 14:45 06/20/24 14:15 Temperature Pulse Rate 91 89 92 Respiratory Rate 15 20 16 Blood Pressure 112/73 121/74 119/73 Pulse Oximetry 95 95 91 Oxygen Delivery 06/20/24 14:30 06/20/24 15:00 06/20/24 13:30 Temperature Pulse Rate 92 97 91 Respiratory Rate 19 17 21 H Blood Pressure 133/78 145/91 H 95/65 L Pulse Oximetry 95 94 92 Oxygen Delivery 06/20/24 16:30 06/20/24 19:23 06/20/24 21:11 Temperature 97.8 F Pulse Rate 107 H 105 H Respiratory Rate 20 Blood Pressure 127/76 Pulse Oximetry 98 Oxygen Delivery Room Air 06/21/24 04:34 06/21/24 06:43 06/21/24 07:00 Temperature 97.1 F L Pulse Rate 80 69 69 Respiratory Rate 20 Blood Pressure 92/52 L 98/54 L Pulse Oximetry 96 Oxygen Delivery Intake/Output Intake/Output: Intake & Output 06/18/24 06/19/24 06/20/24 06/21/24 23:59 23:59 23:59 23:59 Intake Total 1640 120 Output Total 250 200 Balance 1390 -80 Meds/Results Medications: Active Medications Generic Name Dose Route Start Last Admin Trade Name Freq PRN Reason Stop Dose Admin Acetaminophen 650 mg 06/20/24 17:32 Acetaminophen Elixir 325 Mg/10.15 Ml Udc FEED TUBE Q6H PRN Pain Rated 5 Or Less Hydrocodone Bitart/Acetaminophen 1 tab 06/20/24 17:20 06/20/24 23:58 Hydrocodone/Acetaminophen (*Crx) 5-325 Mg Tablet FEED TUBE 1 tab Q6H PRN Administration Pain Rated 6 or Greater Apixaban 5 mg 06/20/24 21:00 06/20/24 21:11 Apixaban 5 Mg Tablet FEED TUBE 5 mg Q12HR MERLYN Administration Artificial Tears 1 drop 06/20/24 17:20 Artificial Tears Ophth Soln 15 Ml Bottle EACH EYE Q4H PRN Dry Eye(s) Famotidine 20 mg 06/20/24 17:30 06/20/24 18:37 Famotidine 20 Mg Tablet FEED TUBE Not Given BID MERLYN Meropenem 1 gm in 100 mls @ 200 mls/hr 06/21/24 03:00 06/21/24 03:45 IVPB 200 mls/hr Q12H MERLYN Administration Sodium Chloride 1,000 mls @ 65 mls/hr 06/21/24 04:40 06/21/24 04:40 Normal Saline Iv IV CONT 65 mls/hr .[id number] MERLYN Administration Ipratropium [place] 0.5 mg 06/20/24 17:20 Ipratropium Br 0.02% Inh Soln 0.5 Mg/2.5 Ml Vial INHALATION DAILY PRN Shortness Of Breath Linezolid 600 mg 06/21/24 00:00 06/20/24 23:59 Linezolid 600 Mg Tablet FEED TUBE 600 mg Q12HR [facility] Administration Metoprolol Tartrate 50 mg 06/20/24 22:00 06/21/24 06:43 Metoprolol Tartrate 50 Mg Tab FEED TUBE Not Given Q8HR [facility] Ondansetron HCl 4 mg 06/20/24 17:20 Ondansetron Hcl Odt 4 Mg Tablet SUBLINGUAL QID PRN Nausea And Vomiting Pregabalin 75 mg 06/21/24 09:00 Pregabalin (*Crx) 75 Mg Capsule FEED TUBE DAILY [facility] Senna 8.6 mg 06/20/24 17:20 Sennosides 8.6 Mg Tablet FEED TUBE DAILY PRN Constipation Sodium Bicarbonate 650 mg 06/21/24 09:00 Sodium Bicarbonate Tab 650 Mg Tablet PO BID [facility] Thiamine HCl 300 mg 06/21/24 09:00 Thiamine Hcl 100 Mg Tablet FEED TUBE QAM [facility] Vitamin D 1,000 units 06/21/24 09:00 Cholecalciferol 1,000 Units Tablet PO DAILY [facility] Radiology Results: ITS Impressions Head CT 06/20/24 11:37 IMPRESSION: 1. No acute intracranial process. 2. Moderate diffuse volume loss and moderate scattered white matter hypoattenuation consistent with chronic small vessel ischemic disease. 2. 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 Chest X-Ray 06/20/24 18:28 IMPRESSION: Right perihilar upper lobe pneumonia versus a mass. Follow-up to resolution advised. Opacification in the left lung base suggestive of atelectasis versus pneumonia. Labs Labs: Laboratory Results - last 24 hr 06/20/24 06/20/24 06/20/24 10:43 10:45 11:40 WBC 13.9 H RBC 3.84 L Hgb 10.0 L Hct 33.4 L MCV 87.0 MCH 26.0 MCHC 29.9 L RDW 15.4 H Plt Count 269 MPV 10.4 Immature Gran % (Auto) 0.4 Neut % (Auto) 85.6 H Lymph % (Auto) 9.8 L [place] % (Auto) 2.9 Eos % (Auto) 1.2 Baso % (Auto) 0.1 L Lymph # (Auto) 1.36 [place] # (Auto) 0.4 Eos # (Auto) 0.2 Baso # (Auto) 0.0 Abs Immat Gran (auto) 0.05 H Absolute Neuts (auto) 11.9 H Absolute Nucleated RBC 0.000 Nucleated RBC % 0.0 Platelet Estimate Adequate Hypochromasia 1+ Anisocytosis Schistocytes None seen PT 21.9 H INR 1.9 APTT 43.0 H Sodium 143 Potassium 4.5 Chloride 109 H Carbon Dioxide 25 Anion Gap 9 BUN 39 H Creatinine 1.50 H Estim Creat Clear Calc 31 Estimated GFR 36 L Glucose 109 Lactic Acid 0.9 Calcium 9.4 Total Bilirubin 0.7 AST 21 ALT 11 Alkaline Phosphatase 218 H Total Protein 9.0 H Albumin 4.0 Urine Color Dark yellow Urine Appearance Cloudy H Urine pH 7.5 Ur Specific [place] 1.013 Urine Protein 3+ H Urine Glucose (UA) Negative Urine Ketones Negative Ur Blood (Man) 3+ H Urine Nitrate Positive H Urine Bilirubin Negative Urine Urobilinogen 1.0 Add Ur Microanalysis Reviewed Leukocyte Esterase Rfl 3+ H Urine RBC >100 H Urine WBC >100 H Ur Squamous Epith Cells None seen Urine Bacteria 4+ H Urine Casts 6-10 06/21/24 05:05 WBC 7.7 RBC 3.06 L Hgb 7.8 L Hct 26.4 L MCV 86.3 MCH 25.5 L MCHC 29.5 L RDW 15.5 H Plt Count 237 MPV 10.4 Immature Gran % (Auto) 0.4 Neut % (Auto) 79.2 H Lymph % (Auto) 12.7 L [place] % (Auto) 4.1 Eos % (Auto) 3.5 Baso % (Auto) 0.1 L Lymph # (Auto) 0.98 [place] # (Auto) 0.3 Eos # (Auto) 0.3 Baso # (Auto) 0.0 Abs Immat Gran (auto) 0.03 Absolute Neuts (auto) 6.1 Absolute Nucleated RBC 0.000 Nucleated RBC % 0.0 Platelet Estimate Adequate Hypochromasia 1+ Anisocytosis 1+ Schistocytes None seen PT INR APTT Sodium 138 Potassium 3.9 Chloride 106 Carbon Dioxide 26 Anion Gap 6 BUN 36 H Creatinine 1.50 H Estim Creat Clear Calc 31 Estimated GFR 36 L Glucose 91 Lactic Acid Calcium 9.1 Total Bilirubin 0.5 AST 20 ALT 9 Alkaline Phosphatase 167 H Total Protein 7.0 Albumin 3.2 L Urine Color Urine Appearance Urine pH Ur Specific [place] Urine Protein Urine Glucose (UA) Urine Ketones Ur Blood (Man) Urine Nitrate Urine Bilirubin Urine Urobilinogen Add Ur Microanalysis Leukocyte Esterase Rfl Urine RBC Urine WBC Ur Squamous Epith Cells Urine Bacteria Urine Casts Quality VTE Prophylaxis VTE prophylaxis: pharmacologic ordered
[2024-06-21] MEDS: LINEZOLID 600 MG TABLET PO ×2 (10:42→20:16)
[2024-06-21] MEDS: CHOLECALCIFEROL 1,000 UNITS TABLET 1000 UNITS PO (10:42)
[2024-06-21] MEDS: APIXABAN 5 MG TABLET PO ×2 (10:42→20:16)
[2024-06-21] MEDS: THIAMINE HCL 100 MG TABLET 300 MG PO (10:42)
[2024-06-21] MEDS: FAMOTIDINE 20 MG TABLET PO ×2 (10:43→20:16)
[2024-06-21] MEDS: HYDROcodone/acetaminophen (*CRX) 5-325 MG TABLET 1 TAB PO ×2 (10:43→20:16)
[2024-06-21] MEDS: SODIUM BICARBONATE TAB 650 MG TABLET PO ×2 (10:43→18:06)
[2024-06-21] MEDS: PREGABALIN (*CRX) 75 MG CAPSULE PO (10:43)
[2024-06-21] MEDS: ACETAMINOPHEN ELIXIR 325 MG/10.15 ML UDC 650 MG PO (18:06)
[2024-06-21] MEDS: METOPROLOL TARTRATE 50 MG TAB PO (20:16)
[2024-06-22] VITALS (10 sets, daily range): BP systolic 127–158; BP diastolic 84–97; PULSE 72–85; RESP 16–18; TEMP 36.3–36.7; O2SAT 93–94
[2024-06-22] MEDS: MEROPENEM 1 GM/NS 100 ML 1 GM/100 ML BAG IVPB ×2 (02:14→14:45)
[2024-06-22] MEDS: METOPROLOL TARTRATE 50 MG TAB PO ×3 (06:01→20:19)
--- NOTE | 2024-06-22 07:06 | P.PNIM_ITS ---
Progress Note: A&P Assessment and Plan (1) Sepsis: Qualifiers: Sepsis acute organ dysfunction status: unspecified Sepsis type: sepsis due to unspecified organism Qualified Code(s): A41.9 - Sepsis, unspecified o rganism Code(s): A41.9 - Sepsis, unspecified organism Status: Acute Assessment and Plan: - meets SIRS criteria: HR, WBC. No hypotension or hypoxia. - lactic acid: 0.9 - 30 mL/kg = 1920, given 2L bolus in the ED - suspected source: UTI vs pleural effusions - started on Linezolid PO and Meropenem IVPB on 06/20 - blood cultures drawn on 06/20: NGTD - CXR: Right perihilar upper lobe pneumonia versus a mass. Follow-up to resolution advised. Opacification in the left lung base suggestive of atelectasis versus pneumonia. - CT chest 1. Small pleural effusions. 2. Small lung volumes with airspace opacities in the inferior and dependent lungs, likely at least predominantly atelectasis. Airspace opacities in right lower lobe are indeterminate for pneumonia. 06/22: Vitals remain stable. (2) Acute encephalopathy: Code(s): G93.40 - Encephalopathy, unspecified Status: Acute Assessment and Plan: - head CT: 1. No acute intracranial process. 2. Moderate diffuse volume loss and moderate scattered white matter hypoattenuation consistent with chronic small vessel ischemic disease. 2. 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 - baseline A&Ox2, back to baseline - suspect some level of delirium/lethargy related to UTI - monitor (3) UTI (urinary tract infection): Qualifiers: Hematuria presence: with hematuria Urinary tract infection type: acute cystitis Qualified Code(s): N30.01 - Acute cystitis with hematuria Code(s): N39.0 - Urinary tract infection, site not specified Status: Acute Assessment and Plan: - Fernandez exchanged on 06/20 - UA: Cloudy, 3+ protein, 3+ blood, positive nitrates, 3+ leuk esterase, greater than 100 RBC and WBC, no epithelial cells, 4+ bacteria - UC: negative - previous micro reviewed, most recent positive UC on 10/17/2023 which showed E coli resistant/intermediate to all antibiotics except for gentamicin, imipenem, meropenem, and Macrobid. Also grew VRE in August of 2023. - discussed previous micro with ID pharmacist, started on Linezolid PO and Meropenem IVPB on 06/20 per his recommendations - avoid serotonergics, will hold patient's trazodone, Seroquel, and citalopram. continue once linezolid course completed. (4) Pleural effusion: Code(s): J90 - Pleural effusion, not elsewhere classified Status: Acute Assessment and Plan: - CXR: Right perihilar upper lobe pneumonia versus a mass. Follow-up to resolution advised. Opacification in the left lung base suggestive of atelectasis versus pneumonia. - Chest CT: 1. Small pleural effusions. 2. Small lung volumes with airspace opacities in the inferior and dependent lungs, likely at least predominantly atelectasis. Airspace opacities in right lower lobe are indeterminate for pneumonia. - Antibiotics: Meropenem and Linezolid - no supplemental O2 requirement - supportive treatment - Monitor vital signs, I&Os, neuro status and patient is a fall risk - Follow WBC, serum electrolytes, temperature curves and cultures (5) RADHA (acute kidney injury): Code(s): N17.9 - Acute kidney failure, unspecified Status: Acute Assessment and Plan: - creatinine 1.5 and GFR 36, previously 0.7 and GFR >60 on 01/31/2024 - has previous history of AKIs accompanying UTIs. Will start IV fluids and ABX. If no improvement, consider further workup and nephrology consultation. - trend renal function - trend electrolytes, correct as needed - monitor I/O. Patient chronically leaks around her fernandez catheter causing I/O to be slightly off. Per nursing she has have several unmeasured voids in her depends as well. (6) Rash, vesicular: Code(s): R23.8 - Other skin changes Status: Acute Assessment and Plan: - vesicular/circular rash to right medial knee, approximately 5 x 6 cm - suspect contact dermatitis related to pressure on the knee, patient is contracted, cannot rule out HSV/Shingles - wound RN consulted (7) Essential (primary) hypertension: Code(s): I10 - Essential (primary) hypertension Status: Acute Assessment and Plan: - chronic, stable on home medications. - continue home medications: Metoprolol - monitor Plan Diet: Heart healthy GI Prophylaxis: Not currently indicated DVT Prophylaxis: Continue home Eliquis Lines: Peripheral Code Status: Full code Time Spent With Patient Time with patient: 25 - 35 minutes Subjective Date/time seen: 06/22/24 07:06 Interval history: 59 year old female with past medical history of MS, functional quadriplegia, dementia, COPD/asthma, schizoaffective disorder, anemia, hypertension, DVT on anticoagulation, and kidney cancer s/p right nephrectomy presents to the hospital from [facility] for altered mental status. Patient is pleasant lying comfortably in bed. She endorses pain to her right hand that she has chronically. She denies chest pain, shortness of breath, nausea/vomiting and abdominal pain. Review of Systems Review of Systems: All systems reviewed & are unremarkable except as noted in HPI and below Exam Narrative: AF HR 84 RR 18 SpO2 93 BP 139/87 General: female in no acute respiratory distress, lying semi recumbent in bed. HEENT: Normocephalic. Atraumatic. Extraocular movement intact. Sclera clear and anicteric. No facial asymmetry. Chest: Lungs have slight crackles to the bases bilaterally and diminished throughout. No wheezes. CV: Heart was regular rate and rhythm. S1-S2. No murmurs, gallops, or rubs. Abd: Abdomen was soft. Nontender. Nondistended. Positive bowel sounds. No organomegaly or masses. Ext: Contractures to all extremities. Red circular rash on the right medial knee with small vesicles with clear drainage. Neuro: Patient is alert and oriented x2 (person, place). Speech is clear. Objective Data Vital Signs Vital Signs: Vital Signs - 24 hr 06/21/24 08:23 06/21/24 10:34 06/21/24 15:06 Temperature 96.6 F L Pulse Rate 94 Respiratory Rate 12 Blood Pressure 93/61 L Pulse Oximetry 96 97 Oxygen Delivery Room Air Room Air Fraction of Inspired Oxygen 06/21/24 16:00 06/21/24 20:20 06/21/24 20:00 Temperature 96.9 F L Pulse Rate 84 103 H 103 H Respiratory Rate 18 18 Blood Pressure 151/93 H Pulse Oximetry 93 93 Oxygen Delivery Room Air Fraction of Inspired Oxygen 06/21/24 20:00 06/22/24 00:00 06/22/24 04:00 Temperature Pulse Rate 96 79 79 Respiratory Rate Blood Pressure Pulse Oximetry Oxygen Delivery Fraction of Inspired Oxygen 06/22/24 06:00 Temperature 97.3 F L Pulse Rate 84 Respiratory Rate 18 Blood Pressure 139/87 Pulse Oximetry 93 Oxygen Delivery Fraction of Inspired Oxygen Intake/Output Intake/Output: Intake & Output 06/19/24 06/20/24 06/21/24 06/22/24 23:59 23:59 23:59 23:59 Intake Total 1640 1800 120 Output Total 250 400 100 Balance 1390 1400 20 Meds/Results Medications: Active Medications Generic Name Dose Route Start Last Admin Trade Name Freq PRN Reason Stop Dose Admin Acetaminophen 650 mg 06/21/24 09:35 06/21/24 18:06 Acetaminophen Elixir 325 Mg/10.15 Ml Udc PO 650 mg Q6H PRN Administration Pain Rated 5 Or Less Hydrocodone Bitart/Acetaminophen 1 tab 06/21/24 09:36 06/21/24 20:16 Hydrocodone/Acetaminophen (*Crx) 5-325 Mg Tablet PO 1 tab Q6H PRN Administration Pain Rated 6 or Greater Apixaban 5 mg 06/21/24 09:00 06/21/24 20:16 Apixaban 5 Mg Tablet PO 5 mg Q12HR MERLYN Administration Artificial Tears 1 drop 06/20/24 17:20 Artificial Tears Ophth Soln 15 Ml Bottle EACH EYE Q4H PRN Dry Eye(s) Famotidine 20 mg 06/21/24 09:00 06/21/24 20:16 Famotidine 20 Mg Tablet PO 20 mg Q12HR MERLYN Administration Meropenem 1 gm in 100 mls @ 200 mls/hr 06/21/24 03:00 06/22/24 02:14 IVPB 200 mls/hr Q12H MERLYN Administration Sodium Chloride 1,000 mls @ 65 mls/hr 06/21/24 04:40 06/21/24 20:17 Normal Saline Iv IV CONT 65 mls/hr .[id number] MERLYN Administration Ipratropium [place] 0.5 mg 06/20/24 17:20 Ipratropium Br 0.02% Inh Soln 0.5 Mg/2.5 Ml Vial INHALATION DAILY PRN Shortness Of Breath Linezolid 600 mg 06/21/24 09:00 06/21/24 20:16 Linezolid 600 Mg Tablet PO 600 mg Q12HR MERLYN Administration Metoprolol Tartrate 50 mg 06/21/24 14:00 06/22/24 06:01 Metoprolol Tartrate 50 Mg Tab PO 50 mg Q8HR MERLYN Administration Ondansetron HCl 4 mg 06/20/24 17:20 Ondansetron Hcl Odt 4 Mg Tablet SUBLINGUAL QID PRN Nausea And Vomiting Pregabalin 75 mg 06/21/24 09:00 06/21/24 10:43 Pregabalin (*Crx) 75 Mg Capsule PO 75 mg DAILY MERLYN Administration Senna 8.6 mg 06/21/24 09:38 Sennosides 8.6 Mg Tablet PO DAILY PRN Constipation Sodium Bicarbonate 650 mg 06/21/24 09:00 06/21/24 18:06 Sodium Bicarbonate Tab 650 Mg Tablet PO 650 mg BID MERLYN Administration Thiamine HCl 300 mg 06/21/24 09:00 06/21/24 10:42 Thiamine Hcl 100 Mg Tablet PO 300 mg QAM MERLYN Administration Vitamin D 1,000 units 06/21/24 09:00 06/21/24 10:42 Cholecalciferol 1,000 Units Tablet PO 1,000 units DAILY MERLYN Administration Radiology Results: ITS Impressions Head CT 06/20/24 11:37 IMPRESSION: 1. No acute intracranial process. 2. Moderate diffuse volume loss and moderate scattered white matter hypoattenuation consistent with chronic small vessel ischemic disease. 2. 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 Chest X-Ray 06/20/24 18:28 IMPRESSION: Right perihilar upper lobe pneumonia versus a mass. Follow-up to resolution advised. Opacification in the left lung base suggestive of atelectasis versus pneumonia. Chest CT 06/21/24 09:24 IMPRESSION: 1. Small pleural effusions. 2. Small lung volumes with airspace opacities in the inferior and dependent lungs, likely at least predominantly atelectasis. Airspace opacities in right lower lobe are indeterminate for pneumonia. Quality VTE Prophylaxis VTE prophylaxis: pharmacologic ordered
[2024-06-22] MEDS: LINEZOLID 600 MG TABLET PO ×2 (08:37→20:19)
[2024-06-22] MEDS: PREGABALIN (*CRX) 75 MG CAPSULE PO (08:37)
[2024-06-22] MEDS: SODIUM BICARBONATE TAB 650 MG TABLET PO ×2 (08:37→17:50)
[2024-06-22] MEDS: THIAMINE HCL 100 MG TABLET 300 MG PO (08:38)
[2024-06-22] MEDS: CHOLECALCIFEROL 1,000 UNITS TABLET 1000 UNITS PO (08:38)
[2024-06-22] MEDS: FAMOTIDINE 20 MG TABLET PO ×2 (08:38→20:18)
[2024-06-22] MEDS: APIXABAN 5 MG TABLET PO ×2 (08:38→20:19)
[2024-06-22 11:35] LABS: Basophils Percent Auto 0.6 % (0.2-1.2); Eosinophils Absolute Auto 0.4 K/mm3 (0-0.3); Eosinophils Percent Auto 5.8 % (0-4.4); Hematocrit 30.4 % (37.0-47.0); Hemoglobin 8.8 g/dL (12.0-15.0); Immature Granulocyte Absolute 0.01 K/mm3 (0.00-0.031); Immature Granulocyte Percent A 0.2 % (0-0.5); Lymphocytes Percent Auto 9.1 % (18.3-44.2); Mean Corpuscular HGB Conc 28.9 g/dl (32-36); Mean Corpuscular Hemoglobin 26.3 pg (26-34); Mean Platelet Volume 10.6 fl (7.4-10.4); Monocytes Absolute Auto 0.4 K/mm3 (0.1-0.6); Monocytes Percent Auto 5.6 % (2.6-8.5); Neutrophils Absolute Auto 5.2 K/mm3 (1.3-6.7); Neutrophils Percent Auto 78.7 % (45.5-73.1); Platelet Count Result 236 k/mm3 (150-375); Red Blood Count 3.34 M/mm3 (4.2-5.4); Red Cell Distribution Width 15.4 % (11.5-14.5); White Blood Count 6.6 K/mm3 (4.5-10.0)
[2024-06-22 11:46] LABS: Alanine Aminotransferase 8 U/L (6-35); Albumin Level 3.4 g/dL (3.5-5.1); Alkaline Phosphatase 157 U/L (38-126); Anion Gap 11 mmol/L (4-12); Aspartate Amino Transferase 21 U/L (14-36); Bilirubin,Total 0.4 mg/dL (0.2-1.3); Blood Urea Nitrogen 29 mg/dL (7-17); Calcium 8.5 mg/dL (8.4-10.2); Carbon Dioxide 17 mmol/L (22-30); Chloride 110 mmol/L (98-107); Estimated CRCL calculation 38 ml/min; Estimated Glomerular Filt Rate 46; Glucose 92 mg/dL (65-110); Sodium 138 mmol/L (137-145)
[2024-06-22] MEDS: HYDROcodone/acetaminophen (*CRX) 5-325 MG TABLET 1 TAB PO ×2 (12:33→20:19)
[2024-06-22] MEDS: SODIUM CHLORIDE 0.9% IV 1,000 ML 65 ML IV CONT (12:33)
[2024-06-22] MEDS: ARTIFICIAL TEARS OPHTH SOLN 15 ML BOTTLE 1 DROP EACH EYE (14:45)
[2024-06-23] VITALS (9 sets, daily range): BP systolic 154–158; BP diastolic 89–98; PULSE 76–88; RESP 16–18; TEMP 36.6–36.8; O2SAT 94–98
[2024-06-23] MEDS: SODIUM CHLORIDE 0.9% IV 1,000 ML 65 ML IV CONT (02:20)
[2024-06-23] MEDS: MEROPENEM 1 GM/NS 100 ML 1 GM/100 ML BAG IVPB (03:55)
[2024-06-23] MEDS: HYDROcodone/acetaminophen (*CRX) 5-325 MG TABLET 1 TAB PO ×2 (05:52→12:32)
[2024-06-23] MEDS: METOPROLOL TARTRATE 50 MG TAB PO ×2 (05:52→14:06)
[2024-06-23 06:34] LABS: Basophils Percent Auto 0.4 % (0.2-1.2); Eosinophils Absolute Auto 0.3 K/mm3 (0-0.3); Eosinophils Percent Auto 6.8 % (0-4.4); Hematocrit 31.4 % (37.0-47.0); Hemoglobin 9.5 g/dL (12.0-15.0); Immature Granulocyte Absolute 0.01 K/mm3 (0.00-0.031); Immature Granulocyte Percent A 0.2 % (0-0.5); Lymphocytes Absolute Auto 1.19 K/mm3 (0.9-3.2); Lymphocytes Percent Auto 24.7 % (18.3-44.2); Mean Corpuscular HGB Conc 30.3 g/dl (32-36); Mean Corpuscular Volume 85.8 fl (80-100); Mean Platelet Volume 10.3 fl (7.4-10.4); Monocytes Absolute Auto 0.3 K/mm3 (0.1-0.6); Monocytes Percent Auto 5.6 % (2.6-8.5); Neutrophils Percent Auto 62.3 % (45.5-73.1); Platelet Count Result 284 k/mm3 (150-375); Red Blood Count 3.66 M/mm3 (4.2-5.4); Red Cell Distribution Width 15.1 % (11.5-14.5); White Blood Count 4.8 K/mm3 (4.5-10.0)
[2024-06-23 06:49] LABS: Alanine Aminotransferase 9 U/L (6-35); Albumin Level 3.5 g/dL (3.5-5.1); Alkaline Phosphatase 190 U/L (38-126); Anion Gap 10 mmol/L (4-12); Aspartate Amino Transferase 20 U/L (14-36); Bilirubin,Total 0.2 mg/dL (0.2-1.3); Blood Urea Nitrogen 24 mg/dL (7-17); Calcium 9.3 mg/dL (8.4-10.2); Carbon Dioxide 22 mmol/L (22-30); Chloride 110 mmol/L (98-107); Estimated CRCL calculation 35 ml/min; Estimated Glomerular Filt Rate 42; Glucose 84 mg/dL (65-110); Potassium 4.1 mmol/L (3.4-5.0); Sodium 142 mmol/L (137-145)
[2024-06-23] MEDS: PREGABALIN (*CRX) 75 MG CAPSULE PO (09:04)
[2024-06-23] MEDS: SODIUM BICARBONATE TAB 650 MG TABLET PO (09:04)
[2024-06-23] MEDS: LINEZOLID 600 MG TABLET PO (09:04)
[2024-06-23] MEDS: THIAMINE HCL 100 MG TABLET 300 MG PO (09:04)
[2024-06-23] MEDS: APIXABAN 5 MG TABLET PO (09:04)
[2024-06-23] MEDS: CHOLECALCIFEROL 1,000 UNITS TABLET 1000 UNITS PO (09:05)
[2024-06-23] MEDS: FAMOTIDINE 20 MG TABLET PO (09:05)
[2024-06-23] MEDS: ARTIFICIAL TEARS OPHTH SOLN 15 ML BOTTLE 1 DROP EACH EYE (09:06)
[2024-06-23] MEDS: ACETAMINOPHEN ELIXIR 325 MG/10.15 ML UDC 650 MG PO (09:06)
[2024-06-23] MEDS: NITROFURANTOIN MONOHYD MACROCR 100 MG CAP PO (11:54)
--- NOTE | 2024-06-23 12:38 | PCNFU ---
Nutrition Follow-Up Complete: 1. Inability to meet estimated nutrition needs PO related to dysphagia as evidenced by PEG tube 2. Increased protein energy needs related to wounds as evidenced by pressure injuries Goal:Meet estimated protein energy needs Support wound healing Pt is meeting energy needs currently via PO. Wound care nurse report states no pressure injuries. Friction to buttocks Pt current nutrition is Heart healthy. Nutrition recommendation: Add Ensure compact BID Last recorded weight is 64.6 kg. Bowel Motility: No BM recorded at this time Labs Reviewed: Hgb:9.5, HCT:31.4, GFR:42, BUN:24, Cr:1.3 Meds Noted: merlequani alexander Skin: friction to buttocks Additional Notes: Pt now on a heart healthy diet, Tube feeding only administered if po intake is less than 50% of a meal. Orders for Jevity 1.5 bolus feed of 300ml with 100ml flush PRN. Pt is tolerating diet well, intake 50-100% at this time. Tube feeds held. Will send Ensure compact BID for supplement. Monitoring tube feeding tolerance, intake, skin, labs, weights Follow up Sunday and Sunday per policy
--- NOTE | 2024-06-23 12:44 | P.DS_ITS ---
DS: Admitting Diagnosis Discharge Date 06/23/2024 Admitting Diagnosis Sepsis acute encephalopathy UTI pleural effusion RADHA Rash Essential hypertension DS: Discharge Diagnosis Discharge Diagnosis (1) Sepsis: Qualifiers: Sepsis acute organ dysfunction status: unspecified Sepsis type: sepsis due to unspecified organism Qualified Code(s): A41.9 - Sepsis, unspecified organism Code(s): A41.9 - Sepsis, unspecified organism Status: Acute (2) Acute encephalopathy: Code(s): G93.40 - Encephalopathy, unspecified Status: Acute (3) UTI (urinary tract infection): Qualifiers: Hematuria presence: with hematuria Urinary tract infection type: acute cystitis Qualified Code(s): N30.01 - Acute cystitis with hematuria Code(s): N39.0 - Urinary tract infection, site not specified Status: Acute (4) Pleural effusion: Code(s): J90 - Pleural effusion, not elsewhere classified Status: Acute (5) RADHA (acute kidney injury): Code(s): N17.9 - Acute kidney failure, unspecified Status: Acute (6) Rash, vesicular: Code(s): R23.8 - Other skin changes Status: Acute (7) Essential (primary) hypertension: Code(s): I10 - Essential (primary) hypertension Status: Acute DS: Summary Hospital Course Reason for hospitalization: Sepsis acute encephalopathy UTI pleural effusion RADHA Rash Essential hypertension Hospital Course: 59 year old female with past medical history of MS, functional quadriplegia, dementia, COPD/asthma, schizoaffective disorder, anemia, hypertension, DVT on anticoagulation, and kidney cancer s/p right nephrectomy presents to the hospital from [facility] for altered mental status. On admission patient was meeting SIRS criteria with tachycardia and leukocytosis. Patient was also noted to have a slight RADHA. She was started on fluids and this improved. Patient continues to have a slight elevation in her BUN/Cr at discharge. Urine output remains normal. Will have patient obtain a CMP outpatient to reevaluate function. She had a UA concerning for infection and was started on IV antibiotics. Chronic fernandez catheter exchanged. Patients urine culture was negative. Patient had a chest XR which showed Right perihilar upper lobe pneumonia versus a mass and opacification in the left lung base suggestive of atelectasis versus pneumonia. A CT chest was obtained and showed small pleural effusions and small lung volumes with airspace opacities in the inferior and dependent lungs, likely at least predominantly atelectasis. She remained on antibiotics and was transitioned to orals to complete the course per ID pharmacy. Vitals remained stable throughout admission and leukocytosis resolved. Patient returned to her baseline AOx2 prior to discharge. She denied chest pain, shortness of breath, nausea/vomiting and abdominal pain. Patient discharged in stable condition back to [facility]. She is to continue her antibiotics as prescribed and obtian a CMP in 3 days to reassess kidney function. Patient to follow up with her PCP in 1 week. Status at Discharge Functional status at discharge: bed bound Time Spent with Patient Time attestation: Total time spent providing and/or coordinating discharge services: Time spent: Greater than 30 minutes Exam Narrative: AF HR 87 RR 18 SpO2 96 BP 154/89 General: female in no acute respiratory distress, lying semi recumbent in bed. Chest: Lungs have slightly diminished to the bases bilaterally. No wheezes. CV: Heart was regular rate and rhythm. S1-S2. No murmurs, gallops, or rubs. Abd: Abdomen was soft. Nontender. Nondistended. Positive bowel sounds. No organomegaly or masses. Ext: Contractures to all extremities. Red circular rash on the right medial knee with small vesicles with clear drainage. Neuro: Patient is alert and oriented x2 (person, place). Speech is clear. DS: Data Data Completed and Pending Completed studies during hospitalization: Head CT Chest XR Chest CT Labs on day of discharge: Labs from last 24 hours 06/23/24 06/23/24 06:11 06:10 WBC 4.8 RBC 3.66 L Hgb 9.5 L Hct 31.4 L MCV 85.8 D MCH 26.0 MCHC 30.3 L RDW 15.1 H Plt Count 284 MPV 10.3 Immature Gran % (Auto) 0.2 Neut % (Auto) 62.3 Lymph % (Auto) 24.7 Mcdowell % (Auto) 5.6 Eos % (Auto) 6.8 H Baso % (Auto) 0.4 Lymph # (Auto) 1.19 Mcdowell # (Auto) 0.3 Eos # (Auto) 0.3 Baso # (Auto) 0.0 Abs Immat Gran (auto) 0.01 Absolute Neuts (auto) 3.0 Absolute Nucleated RBC 0.000 Nucleated RBC % 0.0 Sodium 142 Potassium 4.1 Chloride 110 H Carbon Dioxide 22 Anion Gap 10 BUN 24 H Creatinine 1.30 H Estim Creat Clear Calc 35 Estimated GFR 42 L Glucose 84 Calcium 9.3 Total Bilirubin 0.2 AST 20 ALT 9 Alkaline Phosphatase 190 H Total Protein 8.0 Albumin 3.5 Preliminary micro results at discharge 06/20/24 15:31 Blood Culture - Preliminary Blood 06/20/24 10:45 Blood Culture - Preliminary Blood Discharge Plan Discharge Attending physician on discharge: Beto Chairez Discharging Clinician: Kaila Goodwin Anticipated Discharge Date/Time: 06/23/24 12:17 Patient Disposition: [facility] Activity: as tolerated Diet: as tolerated and heart healthy Discharge Instructions: Discharge disposition: Patient was admitted to the hospital for altered mental status, baseline AOx2. Since admission has returned to baseline. Urine culture was negative. Imaging concerning for pleural effusions/pneumonia. Head CT unremarkable. Patient had slight kidney injury with elevated creatinine Obtain CMP to reevaluate kidney function in 3 days, follow up with urology Monitor urine output Good meenakshi care Take medications as prescribed Linezolid and macrobid, antibiotic course to be completed on the night of 06/26 Attached is information on these medications Hold Seroquel and citalopram until 03/28 Ensure good nutrition and fluid intake Monitor blood pressures Encouraged to continue with yearly vaccinations Return to the emergency department if he developed sudden shortness of breath, chest pain, nausea, vomiting, upset stomach or intractable diarrhea Return to the emergency department if you develop fever greater than 101.5 Follow-up with the primary care physician within 1 weeks Thank you for [facility] for your healthcare needs Patient Instructions: Antibiotic Form, Linezolid (By mouth), Nitrofurantoin Combination (By mouth), Apixaban (By mouth), Pleural Effusion (DC) Patient Language: Gabonese Stand Alone Forms: General Discharge Information Follow-up/Referrals: Kimber,MD Luis Eduardo [Primary Care Provider] - 1 Week Discharge Medications: New linezolid 600 mg Tablet 600 mg PO Q12HR Qty: 7 0RF nitrofurantoin monohyd/m-cryst [Macrobid] 100 mg Capsule 100 mg PO Q12HR Qty: 7 0RF Continued famotidine 20 mg tablet 20 mg feeding tube BID trazodone 50 mg tablet 50 mg feeding tube HS ondansetron 4 mg tablet,disintegrating 4 mg translingual QID PRN (Reason: Nausea And Vomiting) ipratropium bromide 0.02 % solution 1 ml inhalation DAILY PRN (Reason: Shortness Of Breath) cholecalciferol (vitamin D3) 1,000 units PO DAILY sennosides [senna] 8.6 mg Tablet 8.6 mg feeding tube DAILY PRN (Reason: Constipation) hydrocodone-acetaminophen 5-325 mg Tablet 1 tablet feeding tube Q6H PRN (Reason: Pain) acetaminophen [Nortemp] 160 mg/5 mL Suspension 650 mg feeding tube Q6H PRN (Reason: Pain Rated 5 Or Less) Qty: 30 0RF sodium bicarbonate 650 mg Tablet 650 mg PO BID Qty: 60 0RF thiamine HCl (vitamin B1) [Vitamin B-1] 100 mg Tablet 300 mg feeding tube QAM Qty: 90 0RF Artificial Tears([id number]) Drops 1 drp EACH EYE 4-6XD pregabalin 75 mg capsule 75 mg feeding tube DAILY metoprolol tartrate 50 mg tablet 50 mg feeding tube Q8H Eliquis 5 mg tablet 5 mg feeding tube Q12HR Held citalopram 20 mg tablet 30 mg feeding tube HS Hold Instructions: Resume on 06/28/24. quetiapine 25 mg tablet 25 mg feeding tube BID Hold Instructions: Resume on 06/28/24. Other Ambulatory Orders: Comprehensive Metabolic Panel (Routine) Timeframe: 3 Days Location: Determined by Patient Ordered By: Kaila Goodwin Date of admission: 06/20/24 14:04 Primary Care Provider: JesusLuis Eduardo Admitting Provider: Tammi Bailey Attending physician on admission: Kaila Goodwin Condition: Stable Hospitalist MIPS Heart Failure (Exclusion) Patient has history of Heart Transplant or Left Ventricular Assistive Device?: No IF YES, STOP HERE Heart Failure (Qualifier) Patient has current or prior documentation of LVEF less than or equal to 40%, or mod/servere depressed LVSF?: No IF NO, STOP HERE
== END 2024-06-23 15:35 | DRG 871 ==
LOC: ANHED 14:28 → ANH2MED 14:43
PROVIDERS: Student in an Organized Health Care Education/Training Program; Admitting Provider Internal Medicine; Emergency Provider Student in an Organized Health Care Education/Training Program; PCP Internal Medicine; Visit Provider Student in an Organized Health Care Education/Training Program
DX: A41.9 Sepsis, unspecified organism (principal); R53.2 Functional quadriplegia; J96.11 Chronic respiratory failure with hypoxia; G93.40 Encephalopathy, unspecified; N17.9 Acute kidney failure, unspecified; J90 Pleural effusion, not elsewhere classified; N39.0 Urinary tract infection, site not specified; J44.9 Chronic obstructive pulmonary disease, unspecified; I10 Essential (primary) hypertension; D50.9 Iron deficiency anemia, unspecified; E78.5 Hyperlipidemia, unspecified; N32.81 Overactive bladder; R23.8 Other skin changes; R33.9 Retention of urine, unspecified; G35 Multiple sclerosis; F32.A Depression, unspecified; F41.1 Generalized anxiety disorder; F03.90 Unspecified dementia, unspecified severity, without behavioral disturbance, psychotic disturbance, mood disturbance, and anxiety; F25.9 Schizoaffective disorder, unspecified; Z79.01 Long term (current) use of anticoagulants; Z86.718 Personal history of other venous thrombosis and embolism; Z99.81 Dependence on supplemental oxygen; Z87.442 Personal history of urinary calculi; Z86.711 Personal history of pulmonary embolism; Z85.528 Personal history of other malignant neoplasm of kidney; Z87.891 Personal history of nicotine dependence
CPT/HCPCS: 36415; 70450; 71045; 71260; 80053; 81001; 83605; 85025; 85610; 85730; 87040; 87086; 87088; 93005; 99285; A9270; J2020; J2185; J7030; J7120; Q9967

== ENCOUNTER 2024-07-13 14:23 | Inpatient (IN) | payer MEDICARE, MEDICAID, SELFPAY ==
[2024-07-13] VITALS (7 sets, daily range): BP systolic 101–169; BP diastolic 7–93; PULSE 88–95; RESP 16–18; TEMP 36.7–37.4; O2SAT 95–99
--- NOTE | ~2024-07-13 | XR_ITS ---
XR abdomen/kub 1V 07/14/2024 12:11 Indication: Constipation. Impaction. Procedure: KUB Comparison: CT dated 07/13/2024 Findings: There is left hydronephrosis with residual contrast in the left renal pelvis and ureter. Manolo wel gas pattern nonobstructive. Gastric tube present. There are changes of bilateral tubal ligation. There is old healed bilateral hip fractures with remodeling of the hip joints bilaterally. Moderate c olonic fecal loading. Impression: 1: Left hydronephrosis. Reviewed, dictated and finalized at location B. Impression: 1: Left hydronephrosis.
--- NOTE | ~2024-07-13 | CT_ITS ---
EXAMINATION: CT abdomen pelvis w con DATE: 07/13/2024 17:36 INDICATION: constipation/ fever TECHNIQUE: Computed tomography (CT) of the abdomen and pelvis was performed with 100 mL Omnipaque-350 intravenous contrast. Automated exposure control and iterative reconstruction technique were employe d. The dose-length product was 727.44 mGy-cm. COMPARISON: 01/17/2024. FINDINGS: Exam limited by motion artifact and arm down positioning. Lower thorax: Low density left medial basilar consolidation. Hyperenhancing dependent right lower lob e consolidation likely representing atelectasis. Small bilateral pleural effusions. Cardiomegaly, cor onary artery calcifications, and central pulmonary artery dilation. Liver: Normal. Biliary/Gallbladder: Gallbladder is normal. No bile duct dilation. Pancreas: No mass or duct dilation. Spleen: Normal. Adrenals:No mass. Kidneys: Staghorn calcification in the left kidney. Left cortical atrophy. Moderate left hydronephros is. Mild urothelial hyperenhancement. Absent right kidney. GI tract: G-tube, in good position . The rectum is markedly dilated by formed stool, measuring up to 10.1 cm, with mild wall thickening and mild presacral fat stranding. Normal appendix. Mesentery/Peritoneum: No ascites, mass, or free air. Retroperitoneum: No mass. Atherosclerotic abdominal aortic and/or arterial calcifications. Pelvis: Normal bilateral ovaries. The bladder is decompressed by Naranjo catheter. The bladder and uter us are displaced by the distended rectum. Soft Tissues: Sacral decubitus ulcer. Bilateral ischial ulcers. Bones: Uncomplicated right femoral fixation hardware. Chronic right hip dislocation and pseudarthros is. Chronic left hip dislocation and fusion. Stable multilevel thoracic and lumbar compression fractu res. IMPRESSION: Segmental left medial basal pneumonia. Severe fecal impaction with findings that may represent early stercoral colitis. Distended rectum dis places the bladder and uterus and causes moderate left hydronephrosis. Urothelial enhancement may indicate presence of ascending infection/pyelitis on the left. Sacral decubitus ulcer. Bilateral ischial ulcers. Reviewed, dictated and finalized at location K. IMPRESSION: Segmental left medial basal pneumonia. Severe fecal impaction with findings that may represent early stercoral colitis . Distended rectum displaces the bladder and uterus and causes moderate left hy dronephrosis. Urothelial enhancement may indicate presence of ascending infection/pyelitis on the left. Sacral decubitus ulcer. Bilateral ischial ulcers.
--- NOTE | 2024-07-13 16:16 | ED.GENADULT ---
HPI - General Adult General Chief complaint: Unspecified Stated complaint: Fever, HTN, constipated Time Seen by Provider: 07/13/24 14:56 History of Present Illness HPI narrative: 59-year-old female with history of MS presented emergency department for evaluation for constipation and fever. Patient reports she has had longstanding issues with constipation. Patient denies any associated abdominal pain. Patient denies any urinary symptoms. Patient was running a fever at her care facility. Patient is afebrile here at [place]. Related Data Home Medications Medication Instructions Recorded Confirmed cholecalciferol (vitamin D3) 1,000 units PO DAILY 12/17/22 06/20/24 famotidine 20 mg tablet 20 mg feeding tube BID 12/17/22 06/20/24 ipratropium bromide 0.02 % 1 ml inhalation DAILY PRN 12/17/22 06/20/24 solution for inhalation Shortness Of Breath ondansetron 4 mg disintegrating 4 mg translingual QID PRN Nausea 12/17/22 06/20/24 tablet And Vomiting trazodone 50 mg tablet 50 mg feeding tube HS 12/17/22 06/20/24 hydrocodone 5 mg-acetaminophen 325 1 tablet feeding tube Q6H PRN Pain 07/27/23 06/20/24 mg tablet sennosides 8.6 mg tablet (senna) 8.6 mg feeding tube DAILY PRN 07/27/23 06/20/24 Constipation apixaban 5 mg tablet (Eliquis) 5 mg feeding tube Q12HR 06/20/24 06/20/24 citalopram 20 mg tablet 30 mg feeding tube HS 06/20/24 06/20/24 dextran 70-hypromellose eye drops 1 drp EACH EYE 4-6XD 06/20/24 06/20/24 (Artificial Tears (dextran 70-hypromellose) eye drops) metoprolol tartrate 50 mg tablet 50 mg feeding tube Q8H 06/20/24 06/20/24 pregabalin 75 mg capsule 75 mg feeding tube DAILY 06/20/24 06/20/24 quetiapine 25 mg tablet 25 mg feeding tube BID 06/20/24 06/20/24 Allergies Allergy/AdvReac Type Severity Reaction Status Date / Time No Known Allergies Allergy Verified 07/13/24 14:39 Review of Systems Review of Systems: All systems reviewed & are unremarkable except as noted in HPI and below PMFSH Past Medical History Medical History Acute encephalopathy Acute on chronic anemia Anemia Anorexia Anorexia Asthma Calculus of kidney Chronic obstructive pulmonary disease Chronic respiratory failure with hypoxia, on home oxygen therapy Previously documented that the patient is oxygen dependent on 4 L nasal cannula however she denies and is on room air with good SpO2 as of 07/27/2023. Colitis COPD (chronic obstructive pulmonary disease) Dementia Depression Essential (primary) hypertension Extended spectrum beta lactamase (ESBL) resistance Fecal impaction Functional quadriplegia secondary to MS Generalized anxiety disorder GI bleed HTN (hypertension) Hyperlipidemia LEOLA (iron deficiency anemia) Intestinal obstruction Malignant neoplasm of right kidney Malnutrition MRSA infection Multiple sclerosis Multiple sclerosis Overactive bladder Pulmonary embolism (2014) Pyelonephritis Retained ureteral stent Schizoaffective disorder Schizophrenia Ureteral stent present Urinary retention Urinary tract infection due to extended-spectrum beta lactamase (ESBL) producing Escherichia coli Xanthogranulomatous pyelonephritis Surgical History Surgical History History of nephrostomy History of removal of ureteral stent 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 Her guardian is Abe Burnham ([phone]). Code status: Full code. Smoking packs per day: 0.5 Smoking c
[2024-07-13 16:36] LABS: Basophils Percent Auto 0.3 % (0.2-1.2); Eosinophils Percent Auto 0.3 % (0-4.4); Hematocrit 35.1 % (37.0-47.0); Hemoglobin 10.8 g/dL (12.0-15.0); Immature Granulocyte Absolute 0.03 K/mm3 (0.00-0.031); Immature Granulocyte Percent A 0.3 % (0-0.5); Lymphocytes Absolute Auto 0.92 K/mm3 (0.9-3.2); Lymphocytes Percent Auto 9.9 % (18.3-44.2); Mean Corpuscular HGB Conc 30.8 g/dl (32-36); Mean Corpuscular Hemoglobin 26.3 pg (26-34); Mean Corpuscular Volume 85.4 fl (80-100); Mean Platelet Volume 10.8 fl (7.4-10.4); Monocytes Absolute Auto 0.4 K/mm3 (0.1-0.6); Monocytes Percent Auto 4.5 % (2.6-8.5); Neutrophils Absolute Auto 7.8 K/mm3 (1.3-6.7); Neutrophils Percent Auto 84.7 % (45.5-73.1); Platelet Count Result 290 k/mm3 (150-375); Red Blood Count 4.11 M/mm3 (4.2-5.4); Red Cell Distribution Width 16.8 % (11.5-14.5); White Blood Count 9.3 K/mm3 (4.5-10.0)
[2024-07-13 16:45] LABS: INR 1.9; Prothrombin Time 22.6 Seconds (11.1-14.7)
[2024-07-13 16:46] LABS: Partial Thromboplastin Time 40.8 Seconds (22.3-36.8)
[2024-07-13 16:53] LABS: Alanine Aminotransferase 10 U/L (6-35); Albumin Level 4.1 g/dL (3.5-5.1); Alkaline Phosphatase 182 U/L (38-126); Anion Gap 9 mmol/L (4-12); Aspartate Amino Transferase 23 U/L (14-36); Bilirubin,Total 0.9 mg/dL (0.2-1.3); Blood Urea Nitrogen 29 mg/dL (7-17); Calcium 9.4 mg/dL (8.4-10.2); Carbon Dioxide 25 mmol/L (22-30); Chloride 107 mmol/L (98-107); Estimated CRCL calculation 41 ml/min; Estimated Glomerular Filt Rate 46; Glucose 110 mg/dL (65-110); Lipase 50 U/L (23-300); Sodium 141 mmol/L (137-145)
[2024-07-13 16:54] LABS: Lactic Acid Reflex 0.9 mmol/L (0.7-2.0)
[2024-07-13 17:11] LABS: Influenza A QL RT-PCR Negative (Negative); Influenza B QL RT-PCR Negative (Negative); RSV RNA, RT-PCR Negative (Negative); SARS-CoV-2 RNA PCR Negative (Negative)
[2024-07-13] MEDS: SODIUM CHLORIDE 0.9% IV 1,000 ML 999 ML IV CONT (18:30)
[2024-07-13 18:54] LABS: Add Urine Microscopic? YES; Appearance Urine Turbid (Clear); Bacteria Urine 4+ /hpf; Bilirubin Urine Negative (Negative); Blood Urine 3+ (Negative); Color Urine Yellow (Yellow); Glucose Urine UA Negative (Negative); Ketones Urine Negative (Negative); Leukocyte Esterase Ur 3+ LEU/UL (Negative); Nitrate Urine Negative (Negative); Protein Urine 3+ mg/dL (Negative); RBC Urine >100 /hpf (0-2); Specific Grav Ur 1.027 (1.001-1.035); Squamous Epithelial Cell Urine None Seen /hpf (Few); Urobilinogen Urine 0.2 mg/dL (<2.0); WBC Urine >100 /hpf (0-3); pH Urine 6.5 (5.0-9.0)
--- NOTE | 2024-07-13 19:34 | PC.NURSE ---
RN noted Rocephin that is clamped & empty connected to pts IV. This RN had clamped Rocephin upon last entry to room in preparing for blood cultures. Pt continually refusing blood cultures. ED aware
--- NOTE | 2024-07-13 19:40 | PC.NURSE ---
This RN received report from JAVON Sheikh on pt. JAVON Sheikh stated she had Rocephin in the room ready to infuse but noticed Day ordered a set of blood cultures so she never started antibiotics until blood cultures were collected. Per Efrain Gomez and JAVON Sheikh, pt kept refusing we stick her for blood cultures. While this RN was in another pt room, JAVON Sheikh went into this pt room to update her that she has a bed upstairs and would be going up shortly. While Kori was in the room noticed someone had started infusing the Rocephin before blood cultures were even collected. parts runner Mandy notified.
--- NOTE | 2024-07-13 19:55 | ADMGEN ---
This patient, Yesenia Perez, was admitted to Medical Room 249-01. Patient/family oriented to hospital policies and general routines including ID bracelet, bed and alarms, visiting hours, pain management, procedures, bathroom and other care routines, personal items, smoking policy, room service/diet, and visiting hours. Information on how to activate the Rapid Response Team has been discussed. Patient/Family are encouraged to report perceived risks to care and to ask questions if they do not understand what they are told or what they should do.
--- NOTE | 2024-07-13 20:20 | PC.NURSE ---
This Rn checked pt depends prior to going upstairs and noticed a little bit of stool. RN attempted to change diaper but pt was too contracted so RN brought extra depends upstairs to have the help of floor nurses to change due to ED staff being busy at this time. Floor RN states it is okay to send her up and got her changed.
--- NOTE | 2024-07-13 21:16 | PM.IMHP ---
H&P: HPI History of Present Illness Date/Time: 07/13/24 21:16 Chief Complaint: Fever constipation Narrative: This is a 59-year-old female with a significant past medical history COPD, hypertension, MS, functional quadriplegia, schizoaffective disorder, dementia, DVT on anticoagulation, kidney cancer status post right nephrectomy, chronic Naranjo catheter, iron deficiency anemia, depression, decubitus ulcer who presented to the emergency room with constipation and low-grade fever. Patient is not the best historian and most of the presenting illness was obtained from the EMR. Patient was running a fever at her care facility which prompted staff to send patient to the hospital for further evaluation. She denies any chills, nausea, vomiting, diarrhea, abdominal pain, chest pain, shortness a breath. She does report constipation when trouble with urinary tract infections as well as a low-grade fever. Patient has longstanding issues with her constipation due to her MS and functional quadriplegia. She also has history of frequent UTIs. Workup in the hospital included an abdomen pelvis CT which shown segmental left medial basal pneumonia, severe fecal impaction with findings at may represent early sterile coral colitis, distended rectum displaces the bladder and uterus and causes moderate left hydronephrosis, urothelial enhancement may indicate presence of ascending infection/pyelitis on the left, sacral decubitus ulcer, bilateral ischial ulcers. Initial labs shown a white blood cell count of 9.3, hemoglobin 10.8, creatinine 1.2, EGFR 46, alk-phos 182, lipase 50. A UA was obtained which shown turbid urine appearance, 3+ urine protein, 3+ urine blood, 3+ leukocyte, greater than 100 urine RBC, greater than 100 urine WBC, 4+ urine bacteria. Respiratory panel was negative for influenza a and B, RSV, COVID. Blood and urine cultures were obtained and are pending. Patient was given a dose of Rocephin, Flagyl, and 1 L normal saline while in the ED. Her chronic Naranjo catheter was changed as well while in the ED. Review of Systems Review of Systems: All systems reviewed & are unremarkable except as noted in HPI and below Constitutional: Constitutional: Reports as per HPI and Reports no additional constitutional complaints Eyes: Eyes: Reports as per HPI and Reports no additional eye complaints ENT: Reports system reviewed and no additional complaints, except as documented and Reports as per HPI Cardiovascular: Cardiovascular: Reports as per HPI and Reports no additional cardiovascular complaints Respiratory: Respiratory: Reports as per HPI and Reports no additional respiratory complaints Gastrointestinal: Gastrointestinal: Reports as per HPI and Reports no additional gastrointestinal complaints Genitourinary: Genitourinary: Reports no additional female genitourinary complaints and Reports as per HPI Musculoskeletal: Musculoskeletal: Reports no additional musculoskeletal complaints and Reports as per HPI Integumentary/Breasts: Skin/Breast: Reports system reviewed and no additional complaints, except as docu and Reports as per HPI Neurologic: Reports system reviewed and no additional complaints, except as documented and Reports as per HPI Psychiatric: Psychiatric: Reports no additional psychiatric complaints and Reports as per HPI [facility] Past Medical History Medical History Acute encephalopathy Acute on chronic anemia Anemia Anorexia Anorexia Asthma Calculus of kidney Chronic obstructive pulmonary disease Chronic respiratory failure with hypoxia, on home oxygen therapy Previously documented that the patient is oxygen dependent on 4 L nasal cannula however she denies and is on room air with good SpO2 as of 07/27/2023. Colitis COPD (chronic obstructive pulmonary disease) Dementia Depression Essential (primary) hypertension Extended spectrum beta lactamase (ESBL) resistance Fecal impaction Functiona
[2024-07-13] MEDS: SODIUM CHLORIDE 0.9% IV 1,000 ML 125 ML IV CONT (22:19)
[2024-07-13] MEDS: metroNIDAZOLE 500 MG/ISO 100ML 500 MG/100 ML BAG 100 MG IVPB (22:19)
[2024-07-13] MEDS: METOPROLOL TARTRATE 50 MG TAB PO (22:20)
[2024-07-13] MEDS: oxyCODONE HCL (*CRX) 5 MG TAB IR PO (22:21)
[2024-07-14] VITALS (14 sets, daily range): BP systolic 112–174; BP diastolic 69–98; PULSE 88–113; RESP 16–18; TEMP 36.2–37.6; O2SAT 90–97
[2024-07-14] MEDS: AZITHROMYCIN 500 MG/NS 250 ML 500 MG/250 ML BAG 250 MG IVPB (00:04)
[2024-07-14] MEDS: metroNIDAZOLE 500 MG/ISO 100ML 500 MG/100 ML BAG 100 MG IVPB ×2 (05:58→13:07)
[2024-07-14] MEDS: METOPROLOL TARTRATE 50 MG TAB PO ×3 (05:58→21:27)
[2024-07-14] MEDS: oxyCODONE HCL (*CRX) 5 MG TAB IR PO ×3 (05:58→21:26)
[2024-07-14] MEDS: polyethylene glycoL 3350 17 GM POWD.PACK PO (08:58)
[2024-07-14] MEDS: SODIUM BICARBONATE TAB 650 MG TABLET PO ×2 (08:58→17:36)
[2024-07-14] MEDS: MULTIVIT W/ IRON, MINERALS 15 ML LIQUID (*BKC) PO (08:58)
[2024-07-14] MEDS: APIXABAN 5 MG TABLET PO ×2 (08:58→21:27)
[2024-07-14] MEDS: QUEtiapine FUMARATE 25 MG TABLET PO ×2 (08:58→21:27)
[2024-07-14] MEDS: PREGABALIN (*CRX) 75 MG CAPSULE PO (08:58)
[2024-07-14] MEDS: FAMOTIDINE 20 MG TABLET PO ×2 (08:58→21:26)
[2024-07-14] MEDS: THIAMINE HCL 100 MG TABLET 300 MG PO (08:58)
[2024-07-14] MEDS: SODIUM CHLORIDE 0.9% IV 1,000 ML 125 ML IV CONT ×2 (08:59→17:37)
[2024-07-14] MEDS: ACETAMINOPHEN 325 MG TABLET 650 MG PO (09:20)
[2024-07-14] MEDS: ARTIFICIAL TEARS OPHTH SOLN 15 ML BOTTLE 1 DROP EACH EYE ×3 (09:20→17:36)
[2024-07-14 09:35] LABS: Basophils Percent Auto 0.3 % (0.2-1.2); Eosinophils Percent Auto 0.5 % (0-4.4); Hematocrit 31.8 % (37.0-47.0); Hemoglobin 9.7 g/dL (12.0-15.0); Immature Granulocyte Absolute 0.05 K/mm3 (0.00-0.031); Immature Granulocyte Percent A 0.6 % (0-0.5); Lymphocytes Absolute Auto 0.68 K/mm3 (0.9-3.2); Lymphocytes Percent Auto 7.8 % (18.3-44.2); Mean Corpuscular HGB Conc 30.5 g/dl (32-36); Mean Corpuscular Hemoglobin 26.4 pg (26-34); Mean Corpuscular Volume 86.6 fl (80-100); Mean Platelet Volume 10.5 fl (7.4-10.4); Monocytes Absolute Auto 0.4 K/mm3 (0.1-0.6); Monocytes Percent Auto 4.1 % (2.6-8.5); Neutrophils Absolute Auto 7.6 K/mm3 (1.3-6.7); Neutrophils Percent Auto 86.7 % (45.5-73.1); Platelet Count Result 242 k/mm3 (150-375); Red Blood Count 3.67 M/mm3 (4.2-5.4); Red Cell Distribution Width 16.8 % (11.5-14.5); White Blood Count 8.7 K/mm3 (4.5-10.0)
[2024-07-14 09:49] LABS: Alanine Aminotransferase 9 U/L (6-35); Albumin Level 3.7 g/dL (3.5-5.1); Alkaline Phosphatase 169 U/L (38-126); Anion Gap 11 mmol/L (4-12); Aspartate Amino Transferase 21 U/L (14-36); Bilirubin,Total 0.6 mg/dL (0.2-1.3); Blood Urea Nitrogen 23 mg/dL (7-17); Calcium 8.8 mg/dL (8.4-10.2); Carbon Dioxide 20 mmol/L (22-30); Chloride 110 mmol/L (98-107); Estimated CRCL calculation 41 ml/min; Estimated Glomerular Filt Rate 46; Glucose 97 mg/dL (65-110); Potassium 3.8 mmol/L (3.4-5.0); Sodium 141 mmol/L (137-145)
[2024-07-14 09:56] LABS: Magnesium 1.8 mg/dL (1.6-2.3)
--- NOTE | 2024-07-14 11:19 | PM.IMPN ---
Progress Note: A&P Assessment and Plan (1) Urinary tract infection: Code(s): N39.0 - Urinary tract infection, site not specified Status: Acute Assessment and Plan: UA showed turbid appearance, 3+ urine protein, 3+ urine blood, 3+ leukocyte, greater than 100 urine RBC, greater than 100 urine WBC, 4+ urine bacteria Blood and urine culture obtained and pending Rocephin, Azithromycin 500 mg PT daily, and Metronidazole 500 mg PT q 8. Fernandez catheter changed while in ER (2) Pyelitis: Code(s): N12 - Tubulo-interstitial nephritis, not specified as acute or chronic Status: Acute Assessment and Plan: CT of the abdomen and pelvis revealed distended rectum displacing the bladder and uterus causing moderate left hydronephrosis, urothelial enhancement may indicate presence of ascending infection/pyelitis on the left See above (3) Pneumonia: Code(s): J18.9 - Pneumonia, unspecified organism Status: Acute Assessment and Plan: CT of the abdomen and pelvis 07/13/24 showing segmental left medial basal pneumonia Currently on Rocephin for UTI will add azithromycin as well (4) Fecal impaction: Code(s): K56.41 - Fecal impaction Status: Acute Assessment and Plan: CT of the abdomen pelvis showing severe fecal impaction with findings that may represent early sterile coral colitis and distended rectum displacing the bladder and uterus causing moderate left hydronephrosis Fleets enema ordered last night Continue MiraLax daily via peg tube and Senna 8.6 mg daily PRN. Patient had 2 large bowel movements today. KUB showed: Findings: There is left hydronephrosis with residual contrast in the left renal pelvis and ureter. Bowel gas pattern nonobstructive. Gastric tube present. There are changes of bilateral tubal ligation. There is old healed bilateral hip fractures with remodeling of the hip joints bilaterally. Moderate colonic fecal loading. Impression: 1: Left hydronephrosis. Change diet to regular diet, continue bowel regimen. (5) Functional quadriplegia secondary to MS: Code(s): G35 - Multiple sclerosis; R53.2 - Functional quadriplegia Status: Acute Assessment and Plan: chronic fernandez and Peg tube (6) Abrasion of sacral region: Code(s): S30.810A - Abrasion of lower back and pelvis, initial encounter Status: Acute Assessment and Plan: wound nurse consulted with instruction for every 12 hours apply clear Antifungal barrier cream to bilateral buttocks and sacrum. Subjective Date/time seen: 07/14/24 11:19 Interval history: Patient denies chest pain, palpitations, shortness of breath, nausea, or vomiting. Patient asking for a cheese burger. Nurse reports that patient had 2 large BM's today. Review of Systems Review of Systems: All systems reviewed & are unremarkable except as noted in HPI and below Exam Const: General: comfortable and no acute distress Resp: Effort & Inspection: normal respiratory effort Auscultation: clear to auscultation bilaterally Cardio: Rate: regular rate Rhythm: regular rhythm GI: GI Palp: Yes Soft to palpation Auscultation: normal bowel sounds Other: Large BM x 2. Urinary Catheter: Urinary Catheter: patent and draining Neuro: Other: Alert and oriented x3 Extrem: Other: Functional quadriplegia minimal movement viral upper extremity and bilateral lower extremity Psych: Affect: normal affect Objective Data Vital Signs Vital Signs: Vital Signs - 24 hr 07/13/24 14:26 07/13/24 14:34 07/13/24 16:30 Temperature 99.3 F 99.0 F Pulse Rate 90 89 Respiratory Rate 18 18 16 Blood Pressure 169/93 H 106/7 L Pulse Oximetry 99 96 Oxygen Delivery Room Air Fraction of Inspired Oxygen 96 07/13/24 18:39 07/13/24 19:17 07/13/24 20:39 Temperature 99.0 F 98.0 F Pulse Rate 93 88 95 Respiratory Rate 18 16 16 Blood Pressure 101/72 104/72 155/86
[2024-07-14] MEDS: CITALOPRAM HYDROBROMIDE 10 MG TABLET 30 MG PO (21:26)
[2024-07-14] MEDS: metroNIDAZOLE 500 MG TABLET FEED TUBE (21:26)
[2024-07-14] MEDS: AZITHROMYCIN 200 MG/5 ML SUSPENSION UD 500 MG FEED TUBE (21:27)
[2024-07-14] MEDS: traZODone HCL 50 MG TABLET PO (21:27)
[2024-07-15] VITALS (11 sets, daily range): BP systolic 100–157; BP diastolic 57–97; PULSE 85–95; RESP 16–22; TEMP 36.5–37.4; O2SAT 94–99
[2024-07-15] MEDS: SODIUM CHLORIDE 0.9% IV 1,000 ML 125 ML IV CONT (02:16)
[2024-07-15] MEDS: oxyCODONE HCL (*CRX) 5 MG TAB IR PO ×3 (05:53→21:34)
[2024-07-15] MEDS: METOPROLOL TARTRATE 50 MG TAB PO ×3 (05:53→21:34)
[2024-07-15] MEDS: metroNIDAZOLE 500 MG TABLET FEED TUBE ×3 (05:53→21:34)
[2024-07-15 06:12] LABS: Basophils Percent Auto 0.3 % (0.2-1.2); Eosinophils Absolute Auto 0.1 K/mm3 (0-0.3); Eosinophils Percent Auto 0.7 % (0-4.4); Hematocrit 28.2 % (37.0-47.0); Hemoglobin 8.5 g/dL (12.0-15.0); Immature Granulocyte Absolute 0.02 K/mm3 (0.00-0.031); Immature Granulocyte Percent A 0.3 % (0-0.5); Lymphocytes Absolute Auto 1.53 K/mm3 (0.9-3.2); Lymphocytes Percent Auto 21.1 % (18.3-44.2); Mean Corpuscular HGB Conc 30.1 g/dl (32-36); Mean Corpuscular Hemoglobin 26.5 pg (26-34); Mean Corpuscular Volume 87.9 fl (80-100); Mean Platelet Volume 11.3 fl (7.4-10.4); Monocytes Absolute Auto 0.5 K/mm3 (0.1-0.6); Monocytes Percent Auto 6.8 % (2.6-8.5); Neutrophils Absolute Auto 5.1 K/mm3 (1.3-6.7); Neutrophils Percent Auto 70.8 % (45.5-73.1); Platelet Count Result 207 k/mm3 (150-375); Red Blood Count 3.21 M/mm3 (4.2-5.4); Red Cell Distribution Width 17.1 % (11.5-14.5); White Blood Count 7.3 K/mm3 (4.5-10.0)
[2024-07-15 06:22] LABS: Alanine Aminotransferase 8 U/L (6-35); Albumin Level 3.1 g/dL (3.5-5.1); Alkaline Phosphatase 123 U/L (38-126); Anion Gap 8 mmol/L (4-12); Aspartate Amino Transferase 20 U/L (14-36); Bilirubin,Total 0.3 mg/dL (0.2-1.3); Blood Urea Nitrogen 24 mg/dL (7-17); Calcium 8.5 mg/dL (8.4-10.2); Carbon Dioxide 20 mmol/L (22-30); Chloride 113 mmol/L (98-107); Estimated CRCL calculation 35 ml/min; Estimated Glomerular Filt Rate 39; Glucose 81 mg/dL (65-110); Potassium 3.3 mmol/L (3.4-5.0); Sodium 141 mmol/L (137-145)
[2024-07-15] MEDS: POTASSIUM CHLORIDE 20 MEQ PACKET (FOR LIQUID) 40 MEQ FEED TUBE (07:51)
[2024-07-15] MEDS: polyethylene glycoL 3350 17 GM POWD.PACK PO (09:14)
[2024-07-15] MEDS: APIXABAN 5 MG TABLET PO ×2 (09:14→21:33)
[2024-07-15] MEDS: QUEtiapine FUMARATE 25 MG TABLET PO ×2 (09:14→21:34)
[2024-07-15] MEDS: PREGABALIN (*CRX) 75 MG CAPSULE PO (09:14)
[2024-07-15] MEDS: FAMOTIDINE 20 MG TABLET PO ×2 (09:14→21:34)
[2024-07-15] MEDS: SODIUM BICARBONATE TAB 650 MG TABLET PO ×2 (09:15→17:12)
[2024-07-15] MEDS: THIAMINE HCL 100 MG TABLET 300 MG PO (09:15)
[2024-07-15] MEDS: ARTIFICIAL TEARS OPHTH SOLN 15 ML BOTTLE 1 DROP EACH EYE ×3 (09:15→17:12)
[2024-07-15] MEDS: MULTIVIT W/ IRON, MINERALS 15 ML LIQUID (*BKC) PO (09:15)
--- NOTE | 2024-07-15 11:14 | PM.IMPN ---
Progress Note: A&P Assessment and Plan (1) Urinary tract infection: Code(s): N39.0 - Urinary tract infection, site not specified Status: Acute Assessment and Plan: UA showed turbid appearance, 3+ urine protein, 3+ urine blood, 3+ leukocyte, greater than 100 urine RBC, greater than 100 urine WBC, 4+ urine bacteria Blood and urine culture obtained and pending Rocephin 1 gm IVPB daily, Azithromycin 500 mg PT daily, and Metronidazole 500 mg PT q 8. Fernandez catheter changed while in ER WBC 8.7>7.3 NS @ 75 ml/hr. (2) Pyelitis: Code(s): N12 - Tubulo-interstitial nephritis, not specified as acute or chronic Status: Acute Assessment and Plan: CT of the abdomen and pelvis revealed distended rectum displacing the bladder and uterus causing moderate left hydronephrosis, urothelial enhancement may indicate presence of ascending infection/pyelitis on the left See above (3) Pneumonia: Code(s): J18.9 - Pneumonia, unspecified organism Status: Acute Assessment and Plan: CT of the abdomen and pelvis 07/13/24 showing segmental left medial basal pneumonia Currently on Rocephin 1 gram ivpb daily and azithromycin 500 mg PT (4) Fecal impaction: Code(s): K56.41 - Fecal impaction Status: Acute Assessment and Plan: CT of the abdomen pelvis showing severe fecal impaction with findings that may represent early sterile coral colitis and distended rectum displacing the bladder and uterus causing moderate left hydronephrosis Fleets enema ordered and given with results. Continue MiraLax daily via peg tube and Senna 8.6 mg daily PRN. Patient had 2 large bowel movements yesterday. KUB showed: Findings: There is left hydronephrosis with residual contrast in the left renal pelvis and ureter. Bowel gas pattern nonobstructive. Gastric tube present. There are changes of bilateral tubal ligation. There is old healed bilateral hip fractures with remodeling of the hip joints bilaterally. Moderate colonic fecal loading. Impression: 1: Left hydronephrosis. Change diet to regular diet, continue bowel regimen. (5) Functional quadriplegia secondary to MS: Code(s): G35 - Multiple sclerosis; R53.2 - Functional quadriplegia Status: Acute Assessment and Plan: chronic fernandez and Peg tube (6) Abrasion of sacral region: Code(s): S30.810A - Abrasion of lower back and pelvis, initial encounter Status: Acute Assessment and Plan: wound nurse consulted with instruction for every 12 hours apply clear Antifungal barrier cream to bilateral buttocks and sacrum. Subjective Date/time seen: 07/15/24 11:14 Interval history: Patient denies chest pain, palpitations, shortness of breath, nausea, or vomiting. Review of Systems Review of Systems: All systems reviewed & are unremarkable except as noted in HPI and below Exam Const: General: comfortable and no acute distress Resp: Effort & Inspection: normal respiratory effort Auscultation: clear to auscultation bilaterally Cardio: Rate: regular rate Rhythm: regular rhythm GI: GI Palp: Yes Soft to palpation Auscultation: normal bowel sounds Other: 2 BM's yesterday. Urinary Catheter: Urinary Catheter: patent and draining Skin: Other: Per wound care note: Small pin dot opening to friction present to old scar on the sacrum. Yeast maceration present to surrounding tissue. Bilateral ischium with old scars present, no open areas noted. Neuro: Speech: normal speech Extrem: Other: Functional quadriplegia minimal movement viral upper extremity and bilateral lower extremity Psych: Affect: normal affect Objective Data Vital Signs Vital Signs: Vital Signs - 24 hr 07/14/24 13:07 07/14/24 12:00 07/14/24 16:00 Temperature 97.3 F L 97.2 F L Pulse Rate 88 91 93 Respiratory Rate 18 18 Blood Pressure 112/69 174/96 H Pulse Oximetry 95 90 Oxygen Delivery
[2024-07-15] MEDS: SODIUM CHLORIDE 0.9% IV 1,000 ML 75 ML IV CONT (11:50)
--- NOTE | 2024-07-15 14:42 | PC.NURSE ---
On 07/15/24, the student, [Maciej Covarrubias], provided care and completed [facility] documentation on this patient. I have reviewed the student's documentation and agree with the findings.
[2024-07-15] MEDS: CITALOPRAM HYDROBROMIDE 10 MG TABLET 30 MG PO (21:33)
[2024-07-15] MEDS: traZODone HCL 50 MG TABLET PO (21:34)
[2024-07-15] MEDS: AZITHROMYCIN 250 MG TABLET 500 MG FEED TUBE (21:35)
[2024-07-16] VITALS (8 sets, daily range): BP systolic 129–142; BP diastolic 63–87; PULSE 66–92; RESP 16–18; TEMP 36.3–37.1; O2SAT 94–96
[2024-07-16] MEDS: SODIUM CHLORIDE 0.9% IV 1,000 ML 75 ML IV CONT ×2 (01:12→13:44)
[2024-07-16 05:18] LABS: Basophils Percent Auto 0.4 % (0.2-1.2); Eosinophils Absolute Auto 0.3 K/mm3 (0-0.3); Eosinophils Percent Auto 5.3 % (0-4.4); Hematocrit 28.1 % (37.0-47.0); Hemoglobin 8.6 g/dL (12.0-15.0); Immature Granulocyte Absolute 0.01 K/mm3 (0.00-0.031); Immature Granulocyte Percent A 0.2 % (0-0.5); Lymphocytes Absolute Auto 1.15 K/mm3 (0.9-3.2); Lymphocytes Percent Auto 20.4 % (18.3-44.2); Mean Corpuscular HGB Conc 30.6 g/dl (32-36); Mean Corpuscular Hemoglobin 26.7 pg (26-34); Mean Corpuscular Volume 87.3 fl (80-100); Mean Platelet Volume 11.2 fl (7.4-10.4); Monocytes Absolute Auto 0.5 K/mm3 (0.1-0.6); Monocytes Percent Auto 8.7 % (2.6-8.5); Neutrophils Absolute Auto 3.7 K/mm3 (1.3-6.7); Platelet Count Result 200 k/mm3 (150-375); Red Blood Count 3.22 M/mm3 (4.2-5.4); Red Cell Distribution Width 17.2 % (11.5-14.5); White Blood Count 5.6 K/mm3 (4.5-10.0)
[2024-07-16 05:33] LABS: Alanine Aminotransferase 8 U/L (6-35); Alkaline Phosphatase 124 U/L (38-126); Anion Gap 8 mmol/L (4-12); Aspartate Amino Transferase 19 U/L (14-36); Bilirubin,Total 0.3 mg/dL (0.2-1.3); Blood Urea Nitrogen 22 mg/dL (7-17); Calcium 8.7 mg/dL (8.4-10.2); Carbon Dioxide 20 mmol/L (22-30); Chloride 113 mmol/L (98-107); Estimated CRCL calculation 35 ml/min; Estimated Glomerular Filt Rate 39; Glucose 84 mg/dL (65-110); Potassium 3.7 mmol/L (3.4-5.0); Sodium 141 mmol/L (137-145)
[2024-07-16] MEDS: metroNIDAZOLE 500 MG TABLET FEED TUBE ×3 (05:33→21:06)
[2024-07-16] MEDS: METOPROLOL TARTRATE 50 MG TAB PO ×3 (05:33→21:06)
[2024-07-16] MEDS: oxyCODONE HCL (*CRX) 5 MG TAB IR PO ×3 (05:33→21:06)
--- NOTE | 2024-07-16 06:58 | PM.IMPN ---
Progress Note: A&P Assessment and Plan (1) Urinary tract infection: Code(s): N39.0 - Urinary tract infection, site not specified Status: Acute Assessment and Plan: UA showed turbid appearance, 3+ urine protein, 3+ urine blood, 3+ leukocyte, greater than 100 urine RBC, greater than 100 urine WBC, 4+ urine bacteria Urine culture obtained on 07/13: negative Blood culture obtained and pending Rocephin 1 gm IVPB daily, Azithromycin 500 mg PT daily, and Metronidazole 500 mg PT q 8. Fernandez catheter changed while in ER NS @ 75 ml/hr. (2) Pyelitis: Code(s): N12 - Tubulo-interstitial nephritis, not specified as acute or chronic Status: Acute Assessment and Plan: CT of the abdomen and pelvis revealed distended rectum displacing the bladder and uterus causing moderate left hydronephrosis, urothelial enhancement may indicate presence of ascending infection/pyelitis on the left See above UTI (3) Pneumonia: Code(s): J18.9 - Pneumonia, unspecified organism Status: Acute Assessment and Plan: CT of the abdomen and pelvis 07/13/24 showing segmental left medial basal pneumonia - Antibiotics: azithromycin and ceftriaxone - Viral PCR: negative for Flu/COVID/RSV - no supplemental O2 requirement - Monitor vital signs, I&Os, neuro status and patient is a fall risk - Follow WBC, serum electrolytes, temperature curves and cultures (4) Fecal impaction: Code(s): K56.41 - Fecal impaction Status: Acute Assessment and Plan: CT of the abdomen pelvis showing severe fecal impaction with findings that may represent early stercoral colitis and distended rectum displacing the bladder and uterus causing moderate left hydronephrosis Fleets enema ordered and given with results. Continue MiraLax daily via peg tube and Senna 8.6 mg daily PRN. Last BM 07/15 KUB showed: Findings: There is left hydronephrosis with residual contrast in the left renal pelvis and ureter. Bowel gas pattern nonobstructive. Gastric tube present. There are changes of bilateral tubal ligation. There is old healed bilateral hip fractures with remodeling of the hip joints bilaterally. Moderate colonic fecal loading. Change diet to regular diet, continue bowel regimen. (5) Functional quadriplegia secondary to MS: Code(s): G35 - Multiple sclerosis; R53.2 - Functional quadriplegia Status: Acute Assessment and Plan: chronic fernandez and Peg tube (6) Abrasion of sacral region: Code(s): S30.810A - Abrasion of lower back and pelvis, initial encounter Status: Acute Assessment and Plan: wound nurse consulted with instruction for every 12 hours apply clear Antifungal barrier cream to bilateral buttocks and sacrum. Time Spent With Patient Time with patient: 25 - 35 minutes Subjective Date/time seen: 07/16/24 06:58 Interval history: 59 year old female with past medical history of MS, functional quadriplegia, dementia, COPD/asthma, schizoaffective disorder, anemia, hypertension, DVT on anticoagulation, and kidney cancer s/p right nephrectomy presents to the hospital from [facility] for constipation and low grade fever. Patient is pleasant lying comfortably in bed. She has no complaints denies chest, shortness a breath, nausea/ vomiting, and abdominal pain. She had a bowel movement yesterday afternoon and continues to pass gas. Review of Systems Review of Systems: All systems reviewed & are unremarkable except as noted in HPI and below Exam Narrative: AF HR 89 RR 18 SpO2 94 BP 129/87 General: female in no acute respiratory distress who is nontoxic appearing, lying semi recumbent in bed. HEENT: Normocephalic. Atraumatic. Extraocular movement intact. No facial asymmetry. Chest: Lungs are clear to auscultation bilaterally. CV: Heart was regular rate and rhythm. S1-S2. No murmurs, gallops, or rubs. Abd: Abdomen was soft. Nontender. Nondistended. Positive bowel sounds. Ext
[2024-07-16] MEDS: PREGABALIN (*CRX) 75 MG CAPSULE PO (09:24)
[2024-07-16] MEDS: polyethylene glycoL 3350 17 GM POWD.PACK PO (09:24)
[2024-07-16] MEDS: THIAMINE HCL 100 MG TABLET 300 MG PO (09:24)
[2024-07-16] MEDS: FAMOTIDINE 20 MG TABLET PO ×2 (09:24→20:59)
[2024-07-16] MEDS: QUEtiapine FUMARATE 25 MG TABLET PO ×2 (09:24→20:59)
[2024-07-16] MEDS: MULTIVIT W/ IRON, MINERALS 15 ML LIQUID (*BKC) PO (09:24)
[2024-07-16] MEDS: SODIUM BICARBONATE TAB 650 MG TABLET PO ×2 (09:24→17:42)
[2024-07-16] MEDS: APIXABAN 5 MG TABLET PO ×2 (09:24→20:58)
[2024-07-16] MEDS: ARTIFICIAL TEARS OPHTH SOLN 15 ML BOTTLE 1 DROP EACH EYE ×3 (09:25→17:42)
[2024-07-16] MEDS: AZITHROMYCIN 250 MG TABLET 500 MG FEED TUBE (20:58)
[2024-07-16] MEDS: CITALOPRAM HYDROBROMIDE 10 MG TABLET 30 MG PO (20:59)
[2024-07-16] MEDS: traZODone HCL 50 MG TABLET PO (21:17)
[2024-07-17] MEDS: SODIUM CHLORIDE 0.9% IV 1,000 ML 75 ML IV CONT (03:29)
[2024-07-17 05:36] LABS: Basophils Percent Auto 0.4 % (0.2-1.2); Eosinophils Absolute Auto 0.5 K/mm3 (0-0.3); Eosinophils Percent Auto 8.7 % (0-4.4); Hematocrit 27.2 % (37.0-47.0); Hemoglobin 8.2 g/dL (12.0-15.0); Immature Granulocyte Absolute 0.01 K/mm3 (0.00-0.031); Immature Granulocyte Percent A 0.2 % (0-0.5); Lymphocytes Absolute Auto 1.45 K/mm3 (0.9-3.2); Lymphocytes Percent Auto 28.2 % (18.3-44.2); Mean Corpuscular HGB Conc 30.1 g/dl (32-36); Mean Corpuscular Hemoglobin 26.2 pg (26-34); Mean Corpuscular Volume 86.9 fl (80-100); Mean Platelet Volume 11.1 fl (7.4-10.4); Monocytes Absolute Auto 0.3 K/mm3 (0.1-0.6); Monocytes Percent Auto 6.2 % (2.6-8.5); Neutrophils Absolute Auto 2.9 K/mm3 (1.3-6.7); Neutrophils Percent Auto 56.3 % (45.5-73.1); Platelet Count Result 207 k/mm3 (150-375); Red Blood Count 3.13 M/mm3 (4.2-5.4); Red Cell Distribution Width 17.2 % (11.5-14.5); White Blood Count 5.2 K/mm3 (4.5-10.0)
[2024-07-17 05:38] VITALS: PULSE 81
[2024-07-17] MEDS: metroNIDAZOLE 500 MG TABLET FEED TUBE ×2 (05:38→13:53)
[2024-07-17] MEDS: METOPROLOL TARTRATE 50 MG TAB PO ×2 (05:38→13:53)
[2024-07-17] MEDS: oxyCODONE HCL (*CRX) 5 MG TAB IR PO ×2 (05:40→13:53)
[2024-07-17 05:42] LABS: Alanine Aminotransferase 7 U/L (6-35); Alkaline Phosphatase 119 U/L (38-126); Anion Gap 8 mmol/L (4-12); Aspartate Amino Transferase 14 U/L (14-36); Bilirubin,Total 0.3 mg/dL (0.2-1.3); Blood Urea Nitrogen 18 mg/dL (7-17); Calcium 8.4 mg/dL (8.4-10.2); Carbon Dioxide 21 mmol/L (22-30); Chloride 115 mmol/L (98-107); Estimated CRCL calculation 38 ml/min; Estimated Glomerular Filt Rate 42; Glucose 85 mg/dL (65-110); Potassium 3.2 mmol/L (3.4-5.0); Sodium 144 mmol/L (137-145)
[2024-07-17 06:00] VITALS: BP 142/85; PULSE 81; RESP 18; TEMP 37.1; O2SAT 95
[2024-07-17 08:16] VITALS: BP 150/89; PULSE 75; RESP 16; TEMP 36.8; O2SAT 97
--- NOTE | 2024-07-17 09:32 | PM.DS ---
DS: Admitting Diagnosis Discharge Date 07/17/2024 Admitting Diagnosis UTI pyelitis pneumonia fecal impaction functional quadriplegia abrasion of sacral region DS: Discharge Diagnosis Discharge Diagnosis (1) Urinary tract infection: Code(s): N39.0 - Urinary tract infection, site not specified Status: Acute (2) Pyelitis: Code(s): N12 - Tubulo-interstitial nephritis, not specified as acute or chronic Status: Acute (3) Pneumonia: Code(s): J18.9 - Pneumonia, unspecified organism Status: Acute (4) Fecal impaction: Code(s): K56.41 - Fecal impaction Status: Acute (5) Functional quadriplegia secondary to MS: Code(s): G35 - Multiple sclerosis; R53.2 - Functional quadriplegia Status: Acute (6) Abrasion of sacral region: Code(s): S30.810A - Abrasion of lower back and pelvis, initial encounter Status: Acute DS: Summary Hospital Course Reason for hospitalization: UTI pyelitis pneumonia fecal impaction functional quadriplegia abrasion of sacral region Hospital Course: 59 year old female with past medical history of MS, functional quadriplegia, dementia, COPD/asthma, schizoaffective disorder, anemia, hypertension, DVT on anticoagulation, and kidney cancer s/p right nephrectomy presents to the hospital from [facility] for constipation and low grade fever. She was not meeting SIRS criteria on admission. UA was concerning for a UTI, however urine culture was negative. Naranjo catheter was changed in the ER. CT of the abdomen and pelvis revealed distended rectum displacing the bladder and uterus causing moderate left hydronephrosis, urothelial enhancement may indicate presence of ascending infection/pyelitis on the left. This was treated with antibiotics during admission. A CT also showed severe fecal impaction with findings that may represent early stercoral colitis and distended rectum displacing the bladder and uterus causing moderate left hydronephrosis. Patient received an enema and was started on a bowel regimen. A KUB was obtained on 07/14 which showed left hydronephrosis with residual contrast in the left renal pelvis and ureter. Bowel gas pattern nonobstructive. Gastric tube present. There are changes of bilateral tubal ligation. There is old healed bilateral hip fractures with remodeling of the hip joints bilaterally. Moderate colonic fecal loading. She had a large bowel movement on the night of 07/15. At time of discharge patient is to remain on a strict bowel regimen with miralax and bisacodyl daily and senna as needed. Imaging also revealed a segmental left medial basal pneumonia. Patient was started on antibiotics. She is to complete this course of antibiotics at time of discharge. Prior to discharge patient had no complaints. She denied chest pain, shortness of breath, nausea/vomiting and abdominal pain. Patient discharged back to her nursing facility in stable condition. She is to follow up with her PCP in 1 week and complete her antibiotics as prescribed. Status at Discharge Functional status at discharge: bed bound Time Spent with Patient Time attestation: Total time spent providing and/or coordinating discharge services: Time spent: Greater than 30 minutes Exam Narrative: AF HR 79 RR 16 SpO2 97 BP 124/78 General: female in no acute respiratory distress who is nontoxic appearing, lying semi recumbent in bed. HEENT: Normocephalic. Atraumatic. Extraocular movement intact. No facial asymmetry. Chest: Lungs are clear to auscultation bilaterally. CV: Heart was regular rate and rhythm. S1-S2. No murmurs, gallops, or rubs. Abd: Abdomen was soft. Nontender. Nondistended. Positive bowel sounds. Ext: Severely contracted bilaterally. Neuro: Patient is alert and oriented x1 (baseline). Speech is clear. DS: Data Data Completed and Pending Completed studies during hospitalization: abdomen/pelvis CT abdomen xr Labs on day of discharge: Labs from last 24
[2024-07-17] MEDS: polyethylene glycoL 3350 17 GM POWD.PACK PO (09:48)
[2024-07-17] MEDS: SODIUM BICARBONATE TAB 650 MG TABLET PO (09:48)
[2024-07-17] MEDS: THIAMINE HCL 100 MG TABLET 300 MG PO (09:48)
[2024-07-17] MEDS: ARTIFICIAL TEARS OPHTH SOLN 15 ML BOTTLE 1 DROP EACH EYE ×2 (09:48→12:32)
[2024-07-17] MEDS: PREGABALIN (*CRX) 75 MG CAPSULE PO (09:48)
[2024-07-17] MEDS: FAMOTIDINE 20 MG TABLET PO (09:48)
[2024-07-17] MEDS: MULTIVIT W/ IRON, MINERALS 15 ML LIQUID (*BKC) PO (09:48)
[2024-07-17] MEDS: QUEtiapine FUMARATE 25 MG TABLET PO (09:48)
[2024-07-17] MEDS: APIXABAN 5 MG TABLET PO (09:48)
[2024-07-17] MEDS: BISACODYL 10 MG SUPPOSITORY RECTAL (09:49)
[2024-07-17] MEDS: POTASSIUM CHLORIDE 20 MEQ PACKET (FOR LIQUID) 40 MEQ PO (09:53)
[2024-07-17] MEDS: ONDANSETRON INJ 4 MG/2 ML VIAL IV PUSH (10:11)
[2024-07-17 11:41] LABS: SARS-CoV-2 RNA PCR Negative (Negative)
[2024-07-17 12:19] VITALS: BP 124/78; PULSE 79; RESP 16; TEMP 36.2; O2SAT 97
[2024-07-17] MEDS: AZITHROMYCIN 250 MG TABLET 500 MG FEED TUBE (12:32)
[2024-07-17 13:53] VITALS: PULSE 79
--- NOTE | 2024-07-21 08:03 | PC.NURSE ---
Blood cx are negative.
== END 2024-07-17 14:35 | DRG 689 ==
LOC: ANHED 18:12 → ANH2MED 18:46
PROVIDERS: Nurse Practitioner Family; Admitting Provider Family Medicine; Emergency Provider Emergency Medicine; PCP Internal Medicine; Visit Provider Student in an Organized Health Care Education/Training Program
DX: N39.0 Urinary tract infection, site not specified (principal); J18.9 Pneumonia, unspecified organism; R53.2 Functional quadriplegia; J96.11 Chronic respiratory failure with hypoxia; J44.0 Chronic obstructive pulmonary disease with (acute) lower respiratory infection; D50.9 Iron deficiency anemia, unspecified; E78.5 Hyperlipidemia, unspecified; F25.9 Schizoaffective disorder, unspecified; K52.89 Other specified noninfective gastroenteritis and colitis; K56.41 Fecal impaction; F03.90 Unspecified dementia, unspecified severity, without behavioral disturbance, psychotic disturbance, mood disturbance, and anxiety; G35 Multiple sclerosis; I10 Essential (primary) hypertension; N12 Tubulo-interstitial nephritis, not specified as acute or chronic; S30.810A Abrasion of lower back and pelvis, initial encounter; Z11.52 Encounter for screening for COVID-19; Z20.822 Contact with and (suspected) exposure to COVID-19; Z28.21 Immunization not carried out because of patient refusal; Z79.01 Long term (current) use of anticoagulants; Z99.81 Dependence on supplemental oxygen; Z85.528 Personal history of other malignant neoplasm of kidney; Z86.711 Personal history of pulmonary embolism; Z90.5 Acquired absence of kidney; Z86.718 Personal history of other venous thrombosis and embolism
CPT/HCPCS: 36415; 74018; 74177; 80053; 81001; 83605; 83690; 83735; 85025; 85610; 85730; 87040; 87086; 87635; 87637; 96361; 96365; 96366; 96375; 96376; 99285; A9270; G0378; J0456; J0696; J1836; J2405; J7030; Q9967

== ENCOUNTER 2024-07-20 10:31 | Emergency (ER) | payer MEDICARE, MEDICAID, SELFPAY ==
--- NOTE | ~2024-07-20 | XR_ITS ---
Left foot Technique: AP, oblique, and lateral views were obtained. Clinical History: Swelling Findings: There is marked generalized osteopenia. No acute fracture or dislocation is seen. Osseous a lignment is anatomic. Joint spaces are preserved without erosive or degenerative change. There is candido charlene soft tissue swelling the foot.. Impression: Dorsal soft tissue swelling. Marked generalized osteopenia. Reviewed, dictated and finalized at location . Impression: Dorsal soft tissue swelling. Marked generalized osteopenia.
--- NOTE | ~2024-07-20 | XR_ITS ---
Left ankle Technique: AP, oblique, and lateral views were obtained. Clinical History: Swelling Findings: There is generalized osteopenia. No acute fracture or dislocation is seen. Osseous alignmen t is anatomic. Ankle mortise and other visualized joint spaces are preserved. Soft tissues are other real unremarkable. Impression: No acute abnormality evident. Marked generalized osteopenia. Reviewed, dictated and finalized at location . Impression: No acute abnormality evident. Marked generalized osteopenia.
--- NOTE | ~2024-07-20 | XR_ITS ---
Supine and upright views of the abdomen Clinical history: Abdominal pain COMPARISON: 07/14/2024 Findings: Bowel gas pattern is nonspecific. H ostomy tube in place. No evidence for obstruction or fr ee air. Multiple probable left-sided renal stones present.. Stable right femoral intramedullary lore n oted. There is severe degenerative change of both hip joints, with marked remodeling and loss of bone stock at the femoral heads bilaterally.. Impression: Multiple probable left-sided renal stones. Percutaneous cystostomy tube. Osseous chronic findings, as above. Reviewed, dictated and finalized at location . Impression: Multiple probable left-sided renal stones. Percutaneous cystostomy tube. Osseous chronic findings, as above.
--- NOTE | ~2024-07-20 | US_ITS ---
BILATERAL LOWER EXTREMITY VENOUS ULTRASOUND Ordering provider: Hu Fierro MD History: . DVT . Comparison: None. FINDINGS: RIGHT LOWER EXTREMITY VEINS: --COMMON FEMORAL: Patent and free of thrombus. Normal compressibility, phasic flow and augmentation. --PROXIMAL SUPERFICIAL FEMORAL: Patent and free of thrombus. Normal compressibility, phasic flow and augmentation. --DISTAL SUPERFICIAL FEMORAL: Patent and free of thrombus. Normal compressibility, phasic flow and au gmentation. --POPLITEAL: Thrombosis is noted. --POSTERIOR TIBIAL: Was not possible to evaluate. --Gastrocnemius: Thrombosed. LEFT LOWER EXTREMITY VEINS: --COMMON FEMORAL: Was not possible to evaluate.. --PROXIMAL SUPERFICIAL FEMORAL: Thrombosed. --DISTAL SUPERFICIAL FEMORAL: Thrombosed. --POPLITEAL: Thrombosed. --POSTERIOR TIBIAL: Not evaluated.. --Gastrocnemius: Thrombosed. IMPRESSION: Bilateral DVT. Reviewed, dictated and finalized at location A. IMPRESSION: Bilateral DVT.
--- NOTE | ~2024-07-20 | XR_ITS ---
Right wrist Technique: PA, oblique, lateral, and ulnar deviation views were obtained. Clinical History: Pain Findings: No acute fracture or dislocation is seen. Osseous alignment is anatomic. Joint spaces are p reserved. Soft tissues are unremarkable. Impression: No acute abnormality seen. Marked, generalized osteopenia. Reviewed, dictated and finalized at location . Impression: No acute abnormality seen. Marked, generalized osteopenia.
--- NOTE | ~2024-07-20 | CT_ITS ---
Clinical Indication: Abdominal pain, elevated d-dimer CT Scan of the Chest, Abdomen, and Pelvis with Contrast: Technique: Contiguous sections were acquired throughout the chest, abdomen, and pelvis after intraven ous administration of 100 cc of Omnipaque 350. Dose reduction technique was used on this scan by lane lazoing automated exposure control and iterative reconstruction technique. The dose-length product (DL P) was 1011.62 mGy-cm. COMPARISON: 07/13/2024 Findings: There is no evidence of any significant mediastinal, hilar or axillary lymphadenopathy. No pericardia l effusion. No pulmonary embolus. No aortic aneurysm or dissection. Aaibk-rn-apemllaz left pleural effusion and small right pleural effusion are present. There is bibasi lar atelectatic change. The liver, spleen, pancreas, gallbladder, and adrenal glands are within normal limits. Status post ri ght nephrectomy. There are numerous calcified stones throughout the left renal collecting system, wit hout karen hydronephrosis. No left ureteral stones seen. No evidence of aortic aneurysm. No lymphade nopathy. No bowel obstruction or bowel wall thickening. Large amount of stool present at the rectum and distal large bowel.. Urinary bladder is unremarkable. No adnexal mass evident. Stable chronic changes of both hip joints r elated to prior fracture and severe secondary osteoarthritis, ankylosis across the left hip joint, an d marked deficiency/resorption or osteolysis of the right femoral head. There are chronic compression deformities of T5, T6, T7, T8, and T9. Impression: Fecal impaction/constipation. Numerous left nonobstructing renal stones. Status post right nephrectomy. Cuvku-ub-cqdvmdgo left pleural effusion and small right pleural effusion, bibasilar atelectasis. No pulmonary embolus. Chronic compression deformities through the mid thoracic spine, as detailed above. Reviewed, dictated and finalized at location M. Impression: Fecal impaction/constipation. Numerous left nonobstructing renal stones. Status post right nephrectomy. Ajqwx-bb-gnriidlh left pleural effusion and small right pleural effusion, bibas ilar atelectasis. No pulmonary embolus. Chronic compression deformities through the mid thoracic spine, as detailed abo ve.
--- NOTE | ~2024-07-20 | XR_ITS ---
Right Hand Technique: PA, oblique, and lateral views were obtained. Clinical History: Pain Findings: No acute fracture or dislocation is seen. Osseous alignment is anatomic. Joint spaces are p reserved. Soft tissues are unremarkable. Impression: No definite acute abnormality seen. Evaluation somewhat suboptimal due to limitations in patient posi tioning. Reviewed, dictated and finalized at [facility]. Impression: No definite acute abnormality seen. Evaluation somewhat suboptimal due to limit ations in patient positioning.
[2024-07-20 10:35] VITALS: BP 169/99; PULSE 79; RESP 20; TEMP 36.7; O2SAT 97
--- NOTE | 2024-07-20 10:54 | ED.GENADULT ---
HPI - General Adult General Chief complaint: Extremity Problem,Nontraumatic Stated complaint: extremity swelling Time Seen by Provider: 07/20/24 10:43 Source: patient and EMS Mode of arrival: EMS History of Present Illness HPI narrative: 59 years old white female came from [facility] with possible pain and swelling of the left foot and right hand/ wrist unknown duration. Patient is telling me that the noticed that at the [facility] and patient have no complaint. Patient is telling me that she been having abdominal pain for the last 1 and have today. She denies any fever, chills, nausea, vomiting, chest pain, shortness of breath. History of multiple sclerosis. Patient is telling me that she is stiff all over around does not have any physical therapy Related Data Home Medications Medication Instructions Recorded Confirmed cholecalciferol (vitamin D3) 1,000 units G-tube DAILY 12/17/22 07/13/24 famotidine 20 mg tablet 20 mg feeding tube BID 12/17/22 07/13/24 ondansetron 4 mg disintegrating 4 mg PO QID PRN Nausea And Vomiting 12/17/22 07/13/24 tablet trazodone 50 mg tablet 50 mg feeding tube HS 12/17/22 07/13/24 hydrocodone 5 mg-acetaminophen 325 1 tablet feeding tube Q6H PRN Pain 07/27/23 07/13/24 mg tablet (Scale Score 4-6) sennosides 8.6 mg tablet (senna) 8.6 mg feeding tube DAILY PRN 07/27/23 07/13/24 Constipation citalopram 20 mg tablet 30 mg feeding tube HS 06/20/24 07/13/24 dextran 70-hypromellose eye drops 1 drp EACH EYE TID 06/20/24 07/13/24 (Artificial Tears (dextran 70-hypromellose) eye drops) metoprolol tartrate 50 mg tablet 50 mg feeding tube Q8H 06/20/24 07/13/24 pregabalin 75 mg capsule 75 mg feeding tube DAILY 06/20/24 07/13/24 quetiapine 25 mg tablet 25 mg feeding tube BID 06/20/24 07/13/24 apixaban 5 mg tablet (Eliquis) 5 mg feeding tube BID 07/13/24 07/13/24 ekqmjpih-bedr-pluawkz gluconate 9 15 ml PO DAILY 07/13/24 07/13/24 mg iron/15 mL (15 mL) oral liquid (Liquid Multivitamin) oxycodone 5 mg capsule 5 mg feeding tube Q8H 07/13/24 07/13/24 Allergies Allergy/AdvReac Type Severity Reaction Status Date / Time No Known Allergies Allergy Verified 07/20/24 10:38 Review of Systems Review of Systems: All systems reviewed & are unremarkable except as noted in HPI and below PMFSH Past Medical History Medical History Acute encephalopathy Acute on chronic anemia Anemia Anorexia Anorexia Asthma Calculus of kidney Chronic obstructive pulmonary disease Chronic respiratory failure with hypoxia, on home oxygen therapy Previously documented that the patient is oxygen dependent on 4 L nasal cannula however she denies and is on room air with good SpO2 as of 07/27/2023. Colitis COPD (chronic obstructive pulmonary disease) Dementia Depression Essential (primary) hypertension Extended spectrum beta lactamase (ESBL) resistance Fecal impaction Functional quadriplegia secondary to MS Generalized anxiety disorder GI bleed HTN (hypertension) Hyperlipidemia LEOLA (iron deficiency anemia) Intestinal obstruction Malignant neoplasm of right kidney Malnutrition MRSA infection Multiple sclerosis Multiple sclerosis Overactive bladder Pulmonary embolism (2014) Pyelonephritis Retained ureteral stent Schizoaffective disorder Schizophrenia Ureteral stent present Urinary retention Urinary tract infection due to extended-spectrum beta lactamase (ESBL) producing Escherichia coli Xanthogranulomatous pyelonephritis Surgical History Surgical History History of nephrostomy History of removal of ureteral stent 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 History of tubal ligation Family History Family History Mother Family history of multiple sclerosis Hypertension Father
[2024-07-20] MEDS: ONDANSETRON INJ 4 MG/2 ML VIAL IV PUSH (11:31)
[2024-07-20] MEDS: SODIUM CHLORIDE 0.9% IV 1,000 ML 999 ML IV CONT (11:32)
[2024-07-20] MEDS: MORPHINE SULFATE (*CRX) 4 MG/ML INJ IV PUSH (11:32)
[2024-07-20 11:50] LABS: Basophils Percent Auto 0.6 % (0.2-1.2); Eosinophils Absolute Auto 0.3 K/mm3 (0-0.3); Eosinophils Percent Auto 4.6 % (0-4.4); Hematocrit 31.7 % (37.0-47.0); Hemoglobin 9.9 g/dL (12.0-15.0); Immature Granulocyte Absolute 0.02 K/mm3 (0.00-0.031); Immature Granulocyte Percent A 0.3 % (0-0.5); Lymphocytes Absolute Auto 1.94 K/mm3 (0.9-3.2); Lymphocytes Percent Auto 29.8 % (18.3-44.2); Mean Corpuscular HGB Conc 31.2 g/dl (32-36); Mean Corpuscular Volume 83.2 fl (80-100); Mean Platelet Volume 10.2 fl (7.4-10.4); Monocytes Absolute Auto 0.3 K/mm3 (0.1-0.6); Monocytes Percent Auto 5.1 % (2.6-8.5); Neutrophils Absolute Auto 3.9 K/mm3 (1.3-6.7); Neutrophils Percent Auto 59.6 % (45.5-73.1); Platelet Count Result 391 k/mm3 (150-375); Red Blood Count 3.81 M/mm3 (4.2-5.4); Red Cell Distribution Width 16.7 % (11.5-14.5); White Blood Count 6.5 K/mm3 (4.5-10.0)
[2024-07-20 12:00] LABS: Lactic Acid Reflex 0.6 mmol/L (0.7-2.0)
[2024-07-20 12:07] LABS: CRP 3.2 mg/dL (<1.0)
[2024-07-20 12:08] LABS: Partial Thromboplastin Time 44.7 Seconds (22.3-36.8); Prothrombin Time 23.3 Seconds (11.1-14.7)
[2024-07-20 12:20] LABS: Alanine Aminotransferase 7 U/L (6-35); Albumin Level 3.8 g/dL (3.5-5.1); Alkaline Phosphatase 151 U/L (38-126); Anion Gap 7 mmol/L (4-12); Aspartate Amino Transferase 22 U/L (14-36); Bilirubin,Total 0.6 mg/dL (0.2-1.3); Blood Urea Nitrogen 10 mg/dL (7-17); Carbon Dioxide 25 mmol/L (22-30); Chloride 110 mmol/L (98-107); Estimated Glomerular Filt Rate 51; Glucose 82 mg/dL (65-110); Lipase 96 U/L (23-300); NT Pro B Type Natriuretic Pept 4260 pg/mL (19.9-100); Potassium 3.5 mmol/L (3.4-5.0); Sodium 142 mmol/L (137-145)
[2024-07-20 12:22] LABS: D Dimer 2.38 ug/mL (<0.48)
[2024-07-20 12:23] LABS: Erythrocyte Sedimentation Rate 138 mm/hr (0-20)
[2024-07-20 14:09] VITALS: BP 188/89; PULSE 82; RESP 18; O2SAT 97
[2024-07-20] MEDS: APIXABAN 5 MG TABLET 10 MG PO (16:15)
== END 2024-07-20 17:30 ==
PROVIDERS: Emergency Provider Emergency Medicine; PCP Internal Medicine
DX: I82.433 Acute embolism and thrombosis of popliteal vein, bilateral (principal); I82.463 Acute embolism and thrombosis of calf muscular vein, bilateral; F03.90 Unspecified dementia, unspecified severity, without behavioral disturbance, psychotic disturbance, mood disturbance, and anxiety; G35 Multiple sclerosis; R53.2 Functional quadriplegia; I10 Essential (primary) hypertension; E78.5 Hyperlipidemia, unspecified; J96.11 Chronic respiratory failure with hypoxia; J44.9 Chronic obstructive pulmonary disease, unspecified; D50.9 Iron deficiency anemia, unspecified; N32.81 Overactive bladder; Z99.81 Dependence on supplemental oxygen; F41.1 Generalized anxiety disorder; F25.9 Schizoaffective disorder, unspecified; F32.A Depression, unspecified; Z93.1 Gastrostomy status; Z86.14 Personal history of Methicillin resistant Staphylococcus aureus infection; Z85.528 Personal history of other malignant neoplasm of kidney; Z86.711 Personal history of pulmonary embolism; Z87.440 Personal history of urinary (tract) infections; Z87.891 Personal history of nicotine dependence; Z87.442 Personal history of urinary calculi; Z90.5 Acquired absence of kidney; Z79.899 Other long term (current) drug therapy; Z79.01 Long term (current) use of anticoagulants; M85.872 Other specified disorders of bone density and structure, left ankle and foot; M85.88 Other specified disorders of bone density and structure, other site; N20.0 Calculus of kidney; K59.00 Constipation, unspecified
CPT/HCPCS: 36415; 71275; 73110; 73130; 73610; 73630; 74018; 74177; 80053; 83605; 83690; 83880; 85025; 85380; 85610; 85652; 85730; 86140; 93970; 96361; 96374; 96375; 99284; A9270; J2270; J2405; J7030; Q9967

== ENCOUNTER 2024-12-05 14:32 | Emergency (ER) | payer MEDICARE, MEDICAID, SELFPAY ==
[2024-12-05] VITALS (26 sets, daily range): BP systolic 56–110; BP diastolic 32–85; PULSE 93–110; RESP 16–26; TEMP 36.6–37.2; O2SAT 93–100
--- NOTE | ~2024-12-05 | XR_ITS ---
HISTORY: pain IN LEFT KNEE COMPARISON: None TECHNIQUE: 3 views of the left knee were performed FINDINGS: Acute oblique displaced fracture is identified within the distal shaft of the left femur with overlap of the fracture fragments. Diffuse bony demineralization is noted. Additional fracture line within the medial margin of the distal left femur extending away from the ar ticular surface of the bowel. IMPRESSION: Acute oblique displaced fracture within the distal shaft of the left femur with addition al fracture deformity along the medial margin of the distal femur. Significant overlap of the fractur e fragments Reviewed, dictated and finalized at location A. DESIGNER IMPRESSION: Acute oblique displaced fracture within the distal shaft of the le ft femur with additional fracture deformity along the medial margin of the dist al femur. Significant overlap of the fracture fragments
--- NOTE | ~2024-12-05 | XR_ITS ---
XR chest 1V portable Ordering provider: Epi Bansal MD History: 59 years Female with . Weakness, PATIENT CONTRACTED, BEST OBTAINABLE PICS . Comparison: June 20, 2024 FINDINGS: MEDIASTINUM: The cardiac silhouette is not enlarged. Left Port-A-Cath with the tip overlying the supe rior vena cava. LUNGS: No infiltrates, effusions or pneumothorax. OTHER: No free air under the diaphragm. Distended stomach with gases. IMPRESSION: No acute cardiopulmonary pathology. Reviewed, dictated and finalized at location A. RAL OFFICE MAINTAINER
--- NOTE | ~2024-12-05 | CT_ITS ---
CT abdomen pelvis wo con Ordering provider: Epi Bansal MD History: 59 years Female with . AP/vomiting . Comparison: July 20, 2024 Technique: CT abdomen and pelvis without IV and without oral contrast. Automated exposure control and iterative reconstruction technique were employed. The dose-length product was 455.31 mGy-cm. Findings: VISUALIZED LOWER CHEST: 1.2 x 2.2 cm Soft tissue density seen adjacent to the heart on the right side may be focal atelectasis versus pericardial fat but nodule cannot be excluded. CT chest follow-up is advised. Dependent atelectatic changes. Cardiomegaly. UPPER ABDOMINAL ORGANS: Liver: Normal. Gallbladder: Normal. Spleen: Normal. Stomach/duodenum: Gastrostomy. Pancreas: Normal. Adrenals: Normal. Kidneys: Status post right nephrectomy. Calcification the left kidney upper pole most likely a stone. Slight dilatation of the left renal pelvis. No definite ureteric stones. PELVIC ORGANS: The bladder is underfilled. BOWEL AND MESENTERY: Colon: No evidence of diverticulitis. Impacted fecal material is seen in the rectum.. Appendix is not demonstrated. Small Bowel: Normal. No obstruction. Peritoneum/mesentery: No free air or free fluid. No mesenteric lymphadenopathy. RETROPERITONEUM: Mild atheromatous disease of the abdominal aorta. No retroperitoneal lymphadenopat hy. MUSCULOSKELETAL: Superficial soft tissues: The superficial soft tissues are normal. Bones: Bony fragments seen inferior to the right hip. Right femur postoperative changes. Resorption o f the femoral head is noted with shallowness of the right acetabulum. Fusion in the left side is seen between the femur and the iliac bone. Pubic symphysitis. Age appropriate degenerative changes of the spine. IMPRESSION: 1. No evidence of appendicitis, diverticulitis or intestinal obstruction. 2. Impacted fecal material in the rectum. 3. Resorption of both femoral head with deformity in the area bilaterally. 4. Status post right nephrectomy. Mild hydronephrotic changes in the left kidney with stone in the u pper pole. Reviewed, dictated and finalized at location A. GOODS WASHER IMPRESSION: 1. No evidence of appendicitis, diverticulitis or intestinal obstruction. 2. Impacted fecal material in the rectum. 3. Resorption of both femoral head with deformity in the area bilaterally. 4. Status post right nephrectomy. Mild hydronephrotic changes in the left kidn ey with stone in the upper pole.
--- NOTE | 2024-12-05 14:35 | ECG_ITS ---
Test Date: 2024-12-05 14:44:30 Measurements Intervals [place] Rate: 104 P: 21 HI: 116 QRS: 24 QRSD: 87 T: -6 QT: 382 QTc: 503 Interpretive Statements SINUS TACHYCARDIA WITH SHORT HI INTERVAL NONSPECIFIC ST AND T-WAVE ABNORMALITY ABNORMAL ECG Compared to ECG 06/20/2024 10:55:34 INCREASED HEART RATE, LOSS OF R-WAVE VOLTAGE LEAD V3 Electronically Signed On 12-06-2024 15:30:34 PROJECT LANDSCAPE ARCHITECT by Hima Villagran M.D.
--- NOTE | 2024-12-05 14:44 | PC.NURSE ---
patient is difficult stick, ultrasound needed to draw labs,
--- NOTE | 2024-12-05 14:44 | ED.GENADULT ---
HPI - General Adult General Chief complaint: Weakness Stated complaint: WEAKNESS Time Seen by Provider: 12/05/24 14:35 History of Present Illness HPI narrative: Patient is a 59-year-old female who presents ER with weakness or prison. Patient diaphoretic and hypertensive. She reports mild nausea and has no other complaints other than being hot not wanting a blanket over her. EMS found patient with a systolic pressure in 70s but there was about due to an elevated blood pressure of 117/104. Related Data Home Medications ?Medication ?Instructions ?Recorded ?Confirmed ?Last Taken ?Type cholecalciferol (vitamin D3) 1,000 units G-tube DAILY 12/17/22 07/13/24 Unknown History famotidine 20 mg tablet 20 mg feeding tube BID 12/17/22 07/13/24 Unknown History ondansetron 4 mg disintegrating 4 mg PO QID PRN Nausea And Vomiting 12/17/22 07/13/24 Unknown History tablet trazodone 50 mg tablet 50 mg feeding tube HS 12/17/22 07/13/24 Unknown History hydrocodone 5 mg-acetaminophen 325 1 tablet feeding tube Q6H PRN Pain 07/27/23 07/13/24 Unknown History mg tablet (Scale Score 4-6) sennosides 8.6 mg tablet (senna) 8.6 mg feeding tube DAILY PRN 07/27/23 07/13/24 Unknown History Constipation citalopram 20 mg tablet 30 mg feeding tube HS 06/20/24 07/13/24 Unknown History dextran 70-hypromellose eye drops 1 drp EACH EYE TID 06/20/24 07/13/24 Unknown History (Artificial Tears (dextran 70-hypromellose) eye drops) metoprolol tartrate 50 mg tablet 50 mg feeding tube Q8H 06/20/24 07/13/24 Unknown History pregabalin 75 mg capsule 75 mg feeding tube DAILY 06/20/24 07/13/24 Unknown History quetiapine 25 mg tablet 25 mg feeding tube BID 06/20/24 07/13/24 Unknown History apixaban 5 mg tablet (Eliquis) 5 mg feeding tube BID 07/13/24 07/13/24 Unknown History ocjnivct-inws-hwtqtqw gluconate 9 15 ml PO DAILY 07/13/24 07/13/24 Unknown History mg iron/15 mL (15 mL) oral liquid (Liquid Multivitamin) oxycodone 5 mg capsule 5 mg feeding tube Q8H 07/13/24 07/13/24 Unknown History Allergies Allergy/AdvReac Type Severity Reaction Status Date / Time No Known Allergies Allergy Verified 07/20/24 10:38 Review of Systems Review of Systems: ROS unobtainable: Yes unobtainable due to medical condition PMFSH Past Medical History Medical History Acute encephalopathy Acute on chronic anemia Anemia Anorexia Anorexia Asthma Calculus of kidney Chronic obstructive pulmonary disease Chronic respiratory failure with hypoxia, on home oxygen therapy Previously documented that the patient is oxygen dependent on 4 L nasal cannula however she denies and is on room air with good SpO2 as of 07/27/2023. Colitis COPD (chronic obstructive pulmonary disease) Dementia Depression Essential (primary) hypertension Extended spectrum beta lactamase (ESBL) resistance Fecal impaction Functional quadriplegia secondary to MS Generalized anxiety disorder GI bleed HTN (hypertension) Hyperlipidemia LEOLA (iron deficiency anemia) Intestinal obstruction Malignant neoplasm of right kidney Malnutrition MRSA infection Multiple sclerosis Multiple sclerosis Overactive bladder Pulmonary embolism (2014) Pyelonephritis Retained ureteral stent Schizoaffective disorder Schizophrenia Ureteral stent present Urinary retention Urinary tract infection due to extended-spectrum beta lactamase (ESBL) producing Escherichia coli Xanthogranulomatous pyelonephritis Surgical History Surgical History History of nephrostomy History of removal of ureteral stent 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 History of tubal ligation Family History Family History Mother Family history of multiple sclerosis Hypertension Father Patient's father is Social History Social History Social History: Patient is a ramos of the [facility]. Her guardian is Abe Burnham ([phone]). Code status: Full code. Smoking packs per day: 0.5 Smoking cigarettes per day: 10.0 Years smoked: 1 Smoking pack-years: 0.50 Smoking status: Never smoker Second hand tobacco smoke exposure: No Alcohol intake: unknown Substance use: unknown Do You Feel Safe in your Home?: No Lack of Transportation: No Lack of Food: Never True Current Housing: I Have Housing Concerned About Future Housing: No Difficulty Paying Gas/Electric Bills: No Difficulty Paying for Meds: No Currently Unemployed: No Education: High School Diploma/GED Difficulty w/ Childcare or Family Care: No Living arrangements: prison Additional living arrangements comments: 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ion: other Additional occupation/education comments: Disabled Spiritual care concerns: No Agree to blood products: Yes Exam Narrative: GENERAL: Chronically ajd-lpyigocsx-vfhyhpafx, pale and diaphoretic. HEAD: Normocephalic, atraumatic. EYES: PERRL and EOMI. ENT: Mucous membranes moist. CHEST: Clear to auscultation. No respiratory distress. HEART: Regular rate and rhythm. Normal peripheral pulses. ABDOMEN: Soft, nontender, nondistended. G-tube in expected location. EXTREMITIES: Contractures of the extremities due to functional quadriplegia. SKIN: Warm, diaphoretic, pale in no rash. NEURO: Alert and oriented x2. Course Course Emergency Course: Patient accepted the hospitalist service in the ICU. Midline placed in the arm and patient is on Levophed. Started on ceftriaxone but ICU would like meropenem given history of ESBL positive infection. Patient unable be catheterization superior wick is in place. Patient received 30 milliliter/kilogram IV fluid bolus with negligible change and blood pressure. Her left-sided Port-A-Cath in/but does not withdraw blood and of drip will not flow through so Cathflo is being used to hopefully make a it work again. Vital Signs Vital signs: Vital Signs Temperature 97.9 F 12/05/24 14:30 Pulse Rate 102 H 12/05/24 14:30 Respiratory Rate 26 H 12/05/24 14:30 Blood Pressure 56/41 L 12/05/24 14:30 Pulse Oximetry 100 12/05/24 14:30 Oxygen Delivery Room Air 12/05/24 14:30 Temperature 99 F 12/05/24 19:53 Pulse Rate 110 H 12/05/24 21:55 Respiratory Rate 25 H 12/05/24 21:55 Blood Pressure 90/68 L 12/05/24 21:55 Pulse Oximetry 97 12/05/24 21:55 Oxygen Delivery Nasal Cannula 12/05/24 20:58 Oxygen Flow Rate 0.5 12/05/24 20:58 Medical Decision Making Vital Signs Vital Signs: Vital Signs Temperature 97.9 F 12/05/24 14:30 Pulse Rate 102 H 12/05/24 14:30 Respiratory Rate 26 H 12/05/24 14:30 Blood Pressure 56/41 L 12/05/24 14:30 Pulse Oximetry 100 12/05/24 14:30 Oxygen Delivery Room Air 12/05/24 14:30 Temperature 99 F 12/05/24 19:53 Pulse Rate 110 H 12/05/24 21:55 Respiratory Rate 25 H 12/05/24 21:55 Blood Pressure 90/68 L 12/05/24 21:55 Pulse Oximetry 97 12/05/24 21:55 Oxygen Delivery Nasal Cannula 12/05/24 20:58 Oxygen Flow Rate 0.5 12/05/24 20:58 Lab Data 12/05/24 15:36 12/05/24 15:36 Labs: Lab Results 12/05/24 12/05/24 Range/Units 15:36 19:55 WBC 15.9 H (4.5-10.0) K/mm3 RBC 3.96 L (4.2-5.4) M/mm3 Hgb 9.5 L (12.0-15.0) g/dL Hct 32.2 L (37.0-47.0) % MCV 81.3 (80-100) fl MCH 24.0 L (26-34) pg MCHC 29.5 L (32-36) g/dl RDW 16.6 H (11.5-14.5) % Plt Count 378 H (150-375) k/mm3 MPV 11.3 H (7.4-10.4) fl Immature Gran % (Auto) 0.6 H (0-0.5) % Neut % (Auto) 77.6 H (45.5-73.1) % Lymph % (Auto) 14.2 L (18.3-44.2) % [place] % (Auto) 7.1 (2.6-8.5) % Eos % (Auto) 0.2 (0-4.4) % Baso % (Auto) 0.3 (0.2-1.2) % Lymph # (Auto) 2.27 (0.9-3.2) K/mm3 [place] # (Auto) 1.1 H (0.1-0.6) K/mm3 Eos # (Auto) 0.0 (0-0.3) K/mm3 Baso # (Auto) 0.1 (0.0-0.1) K/mm3 Abs Immat Gran (auto) 0.09 H (0.00-0.031) K/mm3 Absolute Neuts (auto) 12.4 H (1.3-6.7) K/mm3 Absolute Nucleated RBC 0.000 (0.0-0.012) K/mm3 Band Neutrophils % 0 (0-6) % Nucleated RBC % 0.0 (0.0-0.2) % Platelet Estimate Slightly increased (Adequate) Hypochromasia 1+ Anisocytosis 2+ Microcytosis 1+ (NORMAL) Schistocytes None seen PT 23.5 H (11.1-14.7) Seconds INR 2.1 APTT 41.1 H (22.3-36.8) Seconds Sodium 142 (137-145) mmol/L Potassium 4.2 (3.4-5.0) mmol/L Chloride 107 (98-107) mmol/L Carbon Dioxide 23 (22-30) mmol/L Anion Gap 12 (4-12) mmol/L BUN 49 H D (7-17) mg/dL Creatinine 2.39 H (0.7-1.0) mg/dL Estim Creat Clear Calc 19 ml/min Estimated GFR 21 L (59 - ) Glucose 155 H (65-110) mg/dL Lactic Acid 2.3 H 1.3 (0.7-2.0) mmol/L Calcium 8.8 (8.4-10.2) mg/dL Total Bilirubin 0.7 (0.2-1.3) mg/dL AST 17 (14-36) U/L ALT 15 (6-35) U/L Alkaline Phosphatase 189 H (38-126) U/L C-Reactive Protein 23.4 H (<1.0) mg/dL Total Protein 8.0 (6.3-8.2) g/dL Albumin 3.9 (3.5-5.1) g/dL Influenza A (RT-PCR) Negative (Negative) Influenza B (RT-PCR) Negative (Negative) RSV (RT-PCR) Negative (Negative) SARS-CoV-2 RNA (RT-PCR) Negative (Negative) Imaging Data Radiologist's impression: ITS Impressions Chest X-Ray 12/05/24 16:24 IMPRESSION: No acute cardiopulmonary pathology. Abdomen/Pelvis CT 12/05/24 17:07 IMPRESSION: 1. No evidence of appendicitis, diverticulitis or intestinal obstruction. 2. Impacted fecal material in the rectum. 3. Resorption of both femoral head with deformity in the area bilaterally. 4. Status post right nephrectomy. Mild hydronephrotic changes in the left kidney with stone in the upper pole. Discharge Plan Discharge Clinical Impression: RADHA (acute kidney injury) UTI (urinary tract infection) Qualifiers: Urinary tract infection type: site unspecified Hematuria presence: with hematuria Qualified Code(s): N39.0 - Urinary tract infection, site not specified Sepsis Qualifiers: Sepsis type: sepsis due to unspecified organism Sepsis acute organ dysfunction status: unspecified Qualified Code(s): A41.9 - Sepsis, unspecified organism Patient Disposition: Still a Patient Condition: Serious Patient Language: Sierra Leonean Prescriptions: No Action famotidine 20 mg tablet 20 mg feeding tube BID trazodone 50 mg tablet 50 mg feeding tube HS ondansetron 4 mg tablet,disintegrating 4 mg PO QID PRN (Reason: Nausea And Vomiting) cholecalciferol (vitamin D3) 1,000 units G-tube DAILY sennosides [senna] 8.6 mg Tablet 8.6 mg feeding tube DAILY PRN (Reason: Constipation) hydrocodone-acetaminophen 5-325 mg Tablet 1 tablet feeding tube Q6H PRN (Reason: Pain (Scale Score 4-6)) sodium bicarbonate 650 mg Tablet 650 mg PO BID Qty: 60 0RF thiamine HCl (vitamin B1) [Vitamin B-1] 100 mg Tablet 300 mg feeding tube QAM Qty: 90 0RF Artificial Tears([id number]) Drops 1 drp EACH EYE TID pregabalin 75 mg capsule 75 mg feeding tube DAILY citalopram 20 mg tablet 30 mg feeding tube HS metoprolol tartrate 50 mg tablet 50 mg feeding tube Q8H quetiapine 25 mg tablet 25 mg feeding tube BID oxycodone 5 mg capsule 5 mg feeding tube Q8H Liquid Multivitamin 9 mg iron/ 15 mL (15 mL) Liquid 15 ml PO DAILY Eliquis 5 mg tablet 5 mg feeding tube BID bisacodyl 10 mg Suppository 10 mg RECTAL QAM Qty: 30 0RF polyethylene glycol 3350 [Miralax] 17 gram Powder In Packet 17 g PO QAM Qty: 30 0RF amoxicillin-pot clavulanate 400-57 mg/5 mL suspension for reconstitution 6.25 ml PO Q8H Qty: 75 0RF Eliquis DVT-PE Treat 30D Start 5 mg (74 tabs) tablets,dose pack See Rx Instructions PO .COMPLEX Qty: 74 0RF Rx Instructions: 10 MG ORALY BID. X7 DAYS, THEN 5 MG PO. BID. Follow-up/Referrals: Kimber,MD Luis Eduardo [Primary Care Provider] -
--- OUTSIDE RECORDS SUMMARY | 2024-12-05 15:01 | XMS_ITS | CONTINUITY OF CARE DOCUMENT ---
Author Name jo ann cherry Address Unknown Organization [facility] Address [address] [place] [address] Phone [phone] Care Team Providers Care Third Hand Name Role Phone Bhavesh DAVE, Gerald Unavailable CHERYL GONZALEZ MD Unavailable INSURANCE PROVIDERS Payer name Policy type / Coverage type [place] [employer] party ID [employer] AND FAMILY [employer] Medicaid 1 [id number] [place] [employer] Medicare [id number]
--- OUTSIDE RECORDS SUMMARY | 2024-12-05 15:01 | XMS_ITS | Clinical Summary ---
Author Organization [facility] Address [address] [place] [address] Care Team Providers Care Binding Machine Operator Name Role Phone Ana Moore MD Primary Care Provider [phone] Allergies No known active allergies Medications atorvastatin 40 MG tablet Take 40 mg by mouth nightly at bedtime. 1 Active citalopram 20 MG tablet Take 20 mg by mouth nightly. 1 Active cyclobenzaprine 5 MG tablet Take 5 mg by mouth 2 (two) times a day. 1 Active traZODone 50 MG tablet Take 25 mg by mouth nightly. 1 Active cloNIDine 0.1 MG tablet Take 0.1 mg by mouth daily. 2 Active metoprolol tartrate 50 MG tablet Take 50 mg by mouth 2 (two) times a day. 2 Active risperiDONE 0.5 MG tablet Take 0.5 mg by mouth 2 (two) times a day. 2 Active Lactobacillus Acid-Pectin (ACIDOPHILUS/CI TRUS PECTIN) Tab Take 1 tablet by mouth 2 (two) times daily. Active Nutritional Supplements (BOOST PLUS OR) Take 120 mLs by mouth daily. Active polyethylene glycol packet Take 17 g by mouth daily as needed for Constipation. Dissolve powder in 240 mL water Active ferrous sulfate, 65 mg elemental, 325 (65 FE) MG tablet Take 325 mg by mouth 2 (two) times a day. Active ipratropium 0.02 % nebulizer solution Take 500 mcg by nebulization daily as needed for Wheezing. Active guaiFENesin ER 600 MG 12 hr tablet Take 600 mg by mouth 2 (two) times daily. Active multi vitamin/mineral s tablet Take 1 tablet by mouth daily. Active ondansetron 4 MG tablet Take 4 mg by mouth every 6 (six) hours as needed for Nausea. Active OXYGEN 4 L/min by Nasal route continuous. Active Senna 8.6 MG tablet Take 1 tablet by mouth daily as needed for Constipation. Active acetaminophen 325 MG tablet Take 2 tablets (650 mg total) by mouth daily as needed. 30 tablet 2 Active Additional Information Patient taking differently:650 mg Oral Daily as needed,Pain, Reported on 02/05/2022 potassium chloride 20 MEQ packet Take 20 mEq by mouth 2 (two) times a day. 2 Active Active Problems Problem Noted Date Diagnosed Date UTI due to extended-spectrum beta lactamase (ESBL) producing Escherichia coli 02/07/2022 Displacement of nephrostomy catheter 02/05/2022 UTI (urinary tract infection) 11/15/2021 Altered mental status 10/23/2021 Urinary incontinence Schizoaffective disorder ([facility] Multiple sclerosis ([facility]) Functional quadriplegia ([facility]) Fracture of lower end of right femur Acute kidney failure Dementia Immunizations Name Administration Dates Next Due PFIZER COVID-19 (ORIGINAL FO RMULATION, PURPLE CAP) mRNA, LNP-S, PF, 30 MCG/0.3 ML DOSE 11/05/2020,10/14/2020 Social History Tobacco Use Types Packs/Day Years Used Date Smoking Tobacco: Never Smokeless Tobacco: Never Alcohol Use Standard Drinks/Week Comments Never 0 (1 standard drink = 0.6 oz pur e alcohol) Comments No Sex and Gender Information Value Date Recorded Sex Assigned at Female 11/16/2021 12:52 AM WEIGHT SHIFTER Legal Sex Female 7:54 PM CDT Gender Identity Female 11/16/2021 12:52 AM WEIGHT SHIFTER Sexual Orientation Not on file Last Filed Vital Signs Vital Sign Reading Time Taken Comments Blood Pressure 103/73 02/13/2022 2:56 PM CDT Pulse 83 02/13/2022 2:56 PM CDT Temperature 36.8 C (98.2 F) 02/13/2022 2:56 PM CDT Respiratory Rate 20 02/13/2022 2:56 PM CDT Oxygen Saturation 100% 02/13/2022 2:56 PM CDT Inhaled Oxygen Concentration - - Weight 84.2 kg (185 lb 10 oz) 02/13/2022 5:51 AM CDT Height 160 cm (5' 3 ) 02/05/2022 7:40 AM CDT Body Mass Index 32.88 02/05/2022 7:40 AM CDT Plan of Treatment Health Maintenance Due Date Last Done Comments Cervical Cancer Screening Pa p Smear (Age 30 to 64) Every 3 Years 1966 Annual Physical 1969 Hepatitis C 1984 DTaP, Tdap and Td Vaccines ( 1 - Tdap) 1985 Hepatitis B Vaccines (1 of 3 - 19+ 3-dose series) 1985 Cervical Cancer Screening Pa p with HPV Testing (Age 30 to 64) Every 5 Years 1996 Cervical Cancer Screening wi th HPV 1996 Mammogram Screening 2006 Zoster Vaccines (1 of 2) 2016 Colorectal Cancer Screening FIT/FOBT (1 Year) 11/15/2022 11/15/2021 COVID-19 Vaccine (2023-2 5 season) 2024 11/05/2020, 10/14/2020 Influenza Adult (#1) 2024 Meningococcal B Vaccine Aged Out No l onger eligible based on patient's age to complete this topic Meningococcal Vaccine Aged Out No martha freya eligible based on patient's age to complete this topic Pneumococcal Vaccine: Pediatrics (0 to 5 Years) and At-Risk Patients (6 to 64 Years) Aged Out No longer eligible b ased on patient's age to complete this topic RSV Immunizations Under 20 Months Aged Out No longer eligible b ased on patient's age to complete this topic Goals Goal Patient Goal Type Associated Problems Recent Progress Patient-Stated? Author Safety - demonstrates understanding of home safety measures General No Felicita Freitas, RN Lifestyle - demonstrates correct use of assistive devices (i.e., cane, walker, shower chair) Lifestyle No Miriam Encarnacion, room service runner Procedure Name Priority Date/Time Associated Diagnosis Comments OCCULT BLOOD, FECES STAT 11/15/2021 7 :54 PM WEIGHT SHIFTER from Last 3 Months or Most Recently Relevant to Health Maintenance Results * OCCULT BLOOD, FECES (11/15/2021 7:54 PM WEIGHT SHIFTER) OCCULT BLOOD FECAL POSITIVE 11/15/2021 8:12 PM WEIGHT SHIFTER [facility] STOOL SPECIMEN / Unknown 11/15/2021 7:54 PM WEIGHT SHIFTER Renato Crawford MD,PHD BODY FLUIDS AND STOOLS ORD ERABLES Final Result [facility] [address] [place] [address], from Last 3 Months or Most Recently Relevant to Health Maintenance Additional Health Concerns Infection Onset Date Last Indicated ESBL - Extended Spectrum Bet a-lactamase Comment:11/15/21 +ESBL Urine 02/05/22 +ESBL Urine 11/18/2021 11/18/2021 Insurance MEDICAID MEDICARE Advance Directives Documents on File Type Date Recorded Patient Saloonkeeper Expl anation Advance Directives and Living Will 11/22/2021 4:10 PM 12/04/2020 GUARDIAN OF PERSON Advance Directives and Living Will 11/18/2021 3:08 PM 09/11/2019 POLST * Full Code (Latest Code Status on File) Date Activated Date Inactivated Comments 11/15/2021 11:56 PM 11/22/2021 5:51 PM Care Teams Binding Machine Operator Relationship Specialty Start Date End Date Ana Moore MD [address] [place] [address] [place] [id number] PCP - General INTERNAL MEDICINE 02/05/22
[2024-12-05] MEDS: SODIUM CHLORIDE 0.9% IV 700 ML 999 ML IV CONT (15:30)
[2024-12-05] MEDS: SODIUM CHLORIDE 0.9% IV 1,000 ML 999 ML IV CONT (15:30)
[2024-12-05 15:45] LABS: Basophils Absolute Auto 0.1 K/mm3 (0.0-0.1); Basophils Percent Auto 0.3 % (0.2-1.2); Eosinophils Percent Auto 0.2 % (0-4.4); Hematocrit 32.2 % (37.0-47.0); Hemoglobin 9.5 g/dL (12.0-15.0); Immature Granulocyte Absolute 0.09 K/mm3 (0.00-0.031); Immature Granulocyte Percent A 0.6 % (0-0.5); Lymphocytes Absolute Auto 2.27 K/mm3 (0.9-3.2); Lymphocytes Percent Auto 14.2 % (18.3-44.2); Mean Corpuscular HGB Conc 29.5 g/dl (32-36); Mean Corpuscular Volume 81.3 fl (80-100); Mean Platelet Volume 11.3 fl (7.4-10.4); Monocytes Absolute Auto 1.1 K/mm3 (0.1-0.6); Monocytes Percent Auto 7.1 % (2.6-8.5); Neutrophils Absolute Auto 12.4 K/mm3 (1.3-6.7); Neutrophils Percent Auto 77.6 % (45.5-73.1); Platelet Count Result 378 k/mm3 (150-375); Red Blood Count 3.96 M/mm3 (4.2-5.4); Red Cell Distribution Width 16.6 % (11.5-14.5); White Blood Count 15.9 K/mm3 (4.5-10.0)
[2024-12-05 15:56] LABS: INR 2.1; Prothrombin Time 23.5 Seconds (11.1-14.7)
[2024-12-05 15:57] LABS: Lactic Acid Reflex 2.3 mmol/L (0.7-2.0); Partial Thromboplastin Time 41.1 Seconds (22.3-36.8)
[2024-12-05 15:59] LABS: Alanine Aminotransferase 15 U/L (6-35); Albumin Level 3.9 g/dL (3.5-5.1); Alkaline Phosphatase 189 U/L (38-126); Anion Gap 12 mmol/L (4-12); Aspartate Amino Transferase 17 U/L (14-36); Bilirubin,Total 0.7 mg/dL (0.2-1.3); Blood Urea Nitrogen 49 mg/dL (7-17); Calcium 8.8 mg/dL (8.4-10.2); Carbon Dioxide 23 mmol/L (22-30); Chloride 107 mmol/L (98-107); Estimated CRCL calculation 19 ml/min; Estimated Glomerular Filt Rate 21; Glucose 155 mg/dL (65-110); Potassium 4.2 mmol/L (3.4-5.0); Sodium 142 mmol/L (137-145)
[2024-12-05] MEDS: HEPARIN SODIUM LOCK FLUSH 500 UNITS/5 ML SYRINGE (16:01)
[2024-12-05 16:09] LABS: CRP 23.4 mg/dL (<1.0)
[2024-12-05 16:10] LABS: Platelet Estimate Slightly Increased (Adequate)
[2024-12-05 16:11] LABS: Schistocytes None Seen
[2024-12-05 16:12] LABS: Anisocytosis 2+; Hypochromasia 1+
[2024-12-05 16:13] LABS: Band Neutrophils Percent 0 % (0-6); Microcytosis 1+ (NORMAL)
[2024-12-05 16:30] LABS: Influenza A QL RT-PCR Negative (Negative); Influenza B QL RT-PCR Negative (Negative); RSV RNA, RT-PCR Negative (Negative); SARS-CoV-2 RNA PCR Negative (Negative)
[2024-12-05] MEDS: ALTEPLASE 2 MG VIAL (CATHFLO) IV PUSH ×2 (17:50→20:00)
[2024-12-05] MEDS: WATER, STERILE FOR INJECTION 10 ML VIAL XX (18:07)
[2024-12-05 18:43] LABS: Reflex Lactic Acid Yes or No Add Lactic
[2024-12-05] MEDS: NOREPINEPHRINE 8 MG/D5W 250 ML 8 MG/250 ML BAG 9.38 MG IV CONT (19:51)
--- NOTE | 2024-12-05 19:57 | PC.NURSE ---
Mccone placed single lumen 14fr midline into right upper arm of patient. Per Mccone midline is good to use.
[2024-12-05 20:09] LABS: Lactic Acid 1.3 mmol/L (0.7-2.0)
--- NOTE | 2024-12-05 21:21 | PC.NURSE ---
Attempted urinary catheter placement twice; no success. Placed a female external catheter on patient set with a suction of 80mmHg. Notified EDP Dr. Bansal.
[2024-12-05] MEDS: MEROPENEM 1 GM/NS 100 ML 1 GM/100 ML BAG IVPB (21:25)
[2024-12-05] MEDS: SODIUM CHLORIDE 0.9% IV 1,000 ML 125 ML IV CONT (21:43)
[2024-12-05] MEDS: SALINE LOCK FLUSH 10 ML IV PUSH (22:02)
--- NOTE | 2024-12-05 22:40 | PC.NURSE ---
While placing a external catheter nursing staff was positioning patient and noticed an abnormal movement on patients left knee. Notified EDP Dr. Bansal.
--- OUTSIDE RECORDS SUMMARY | 2024-12-06 00:12 | XMS_ITS | Clinical Summary ---
Author Organization [facility] Address [address] [place] [address] Care Team Providers Care Tube Room Supervisor Name Role Phone Ana Moore MD Primary Care Provider [phone] Allergies No known active allergies Medications atorvastatin [...] mental status 10/23/2021 Urinary incontinence Schizoaffective disorder ([facility]) Multiple sclerosis ([facility]) Functional quadriplegia ([facility]) Fracture of lower end of right femur [...] Sex Assigned at Female 11/16/2021 12:52 AM DEMI CHEF Legal Sex Female 7:54 PM CDT Gender Identity Female 11/16/2021 12:52 AM DEMI CHEF Sexual Orientation Not on file Last Filed [...] walker, shower chair) Lifestyle No Miriam Encarnacion, conveyor belt repairer Procedure Name Priority Date/Time Associated Diagnosis Comments OCCULT BLOOD, FECES STAT 11/15/2021 7 :54 PM DEMI CHEF from Last 3 Months or Most Recently Relevant to Health Maintenance Results * OCCULT BLOOD, FECES (11/15/2021 7:54 PM DEMI CHEF) OCCULT BLOOD FECAL POSITIVE 11/15/2021 8:12 PM DEMI CHEF [facility] STOOL SPECIMEN / Unknown 11/15/2021 7:54 PM DEMI CHEF Renato Crawford MD,PHD BODY FLUIDS AND STOOLS ORD ERABLES Final Result [facility] [address] [place] [address], from Last 3 Months or Most Recently Relevant to Health Maintenance Additional Health Concerns Infection Onset Date Last Indicated ESBL - Extended Spectrum Bet a-lactamase Comment:11/15/21 +ESBL Urine 02/05/22 +ESBL Urine 11/18/2021 11/18/2021 Insurance MEDICAID MEDICARE Advance Directives Documents on File Type Date Recorded Patient 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
[2024-12-06 00:24] VITALS: BP 106/82; PULSE 103
[2024-12-06 00:47] VITALS: BP 96/72; PULSE 102
[2024-12-06 01:24] VITALS: BP 95/72; PULSE 101; RESP 22; TEMP 36.6; O2SAT 100
[2024-12-06 01:55] VITALS: BP 103/79; PULSE 100; RESP 20; TEMP 37.3; O2SAT 100
--- NOTE | 2024-12-06 02:38 | PC.NURSE ---
[facility] arrives for patient
== END 2024-12-06 02:47 | disposition short-term general hospital (02) ==
PROVIDERS: Emergency Provider Emergency Medicine; PCP Internal Medicine; Visit Provider Internal Medicine
DX: A41.9 Sepsis, unspecified organism (principal); N17.9 Acute kidney failure, unspecified; N39.0 Urinary tract infection, site not specified; R31.9 Hematuria, unspecified; S72.492A Other fracture of lower end of left femur, initial encounter for closed fracture; Z20.822 Contact with and (suspected) exposure to COVID-19; G35 Multiple sclerosis; J44.9 Chronic obstructive pulmonary disease, unspecified; J96.11 Chronic respiratory failure with hypoxia; Z99.81 Dependence on supplemental oxygen; I10 Essential (primary) hypertension; E78.5 Hyperlipidemia, unspecified; D64.9 Anemia, unspecified; N32.81 Overactive bladder; F41.1 Generalized anxiety disorder; F25.9 Schizoaffective disorder, unspecified; Z86.711 Personal history of pulmonary embolism; Z85.528 Personal history of other malignant neoplasm of kidney; Z86.14 Personal history of Methicillin resistant Staphylococcus aureus infection; Z87.442 Personal history of urinary calculi; Z90.5 Acquired absence of kidney; K56.41 Fecal impaction; R00.0 Tachycardia, unspecified; R94.31 Abnormal electrocardiogram [ECG] [EKG]; X58.XXXA Exposure to other specified factors, initial encounter
CPT/HCPCS: 36415; 36569; 71045; 73560; 74176; 80053; 83605; 85025; 85610; 85730; 86140; 87040; 87637; 93005; 96361; 96365; 96366; 96375; 99285; C1751; J2185; J2997; J7030

== ENCOUNTER 2025-01-13 10:52 | Inpatient (IN) | payer MEDICARE, MEDICAID, SELFPAY ==
--- NOTE | ~2025-01-13 | CT_ITS ---
CLINICAL INDICATION: Sepsis COMPARISON: 12/05/2024. TECHNIQUE: Multiple contiguous axial images of the abdomen and pelvis were performed following the ad ministration of with 100 mL Omnipaque-350 intravenous contrast The dose-length product (DLP) was 487.89 mGy-cm. Automated exposure control and iterative reconstruction technique were employed. FINDINGS/OBSERVATIONS: Visualized lower thorax: Right basilar consolidation. Trace left basilar atelectasis. The heart is enlarged, without pericardial effusion. Small hiatal hernia is present. Liver: The liver demonstrates homogeneous enhancement and is not enlarged. Gallbladder and biliary system: The gallbladder is only minimally distended, and otherwise unremarkable. Pancreas: The pancreas enhances homogeneously without ductal dilatation. Spleen: The spleen enhances homogeneously and is not enlarged. Kidneys: The bilateral kidneys enhance symmetrically without hydronephrosis or renal calculi. Adrenal glands: Unremarkable. Gastrointestinal tract: Percutaneous gastrostomy tube in good position. Fecal stasis within the colon. Fecal stasis distending the rectum with mural thickening and surrounding inflammatory change, finding s consistent with fecal impaction. Appendix: The appendix is not definitively visualized. However, no pericecal inflammatory change is identified suggest the presence of acute appendicitis. Vasculature: Unremarkable. Lymph nodes: No pathologically enlarged or morphologically suspicious lymph nodes within the retroperitoneum or at the root of the mesentery. Pelvic structures: The bladder is decompressed, limiting its evaluation. The uterus is anteverted and anteflexed. Body wall and musculoskeletal: Intramedullary lore and screw within the right femur. Within the posterior right ischium, there is resorption adjacent to a soft tissue defect, likely repr esenting patient's known decubitus ulcer. No rim-enhancing fluid collection is identified. Induration of the adjacent soft tissues are noted. IMPRESSION: Right basilar consolidation. Findings within the soft tissues of the right hemipelvis for which exposed bone is suspected. No rim-enhancing fluid collection is appreciated in this location. Induration of the underlying soft tissues are noted. Reviewed, dictated and finalized at location A.
[2025-01-13 10:55] VITALS: BP 155/91; PULSE 81; RESP 16; TEMP 36.8; O2SAT 100
--- NOTE | 2025-01-13 11:55 | PC.NURSE ---
Unable to get blood return from port. Port flushes easily. Cathflo instilled into port.
[2025-01-13 12:29] LABS: Basophils Absolute Auto 0.1 K/mm3 (0.0-0.1); Basophils Percent Auto 0.4 % (0.2-1.2); Eosinophils Absolute Auto 0.2 K/mm3 (0-0.3); Eosinophils Percent Auto 1.7 % (0-4.4); Hematocrit 28.5 % (37.0-47.0); Hemoglobin 8.2 g/dL (12.0-15.0); Immature Granulocyte Absolute 0.05 K/mm3 (0.00-0.031); Immature Granulocyte Percent A 0.4 % (0-0.5); Lymphocytes Percent Auto 12.8 % (18.3-44.2); Mean Corpuscular HGB Conc 28.8 g/dl (32-36); Mean Corpuscular Hemoglobin 24.4 pg (26-34); Mean Corpuscular Volume 84.8 fl (80-100); Mean Platelet Volume 10.4 fl (7.4-10.4); Monocytes Absolute Auto 0.6 K/mm3 (0.1-0.6); Monocytes Percent Auto 4.8 % (2.6-8.5); Neutrophils Absolute Auto 10.6 K/mm3 (1.3-6.7); Neutrophils Percent Auto 79.9 % (45.5-73.1); Platelet Count Result 409 k/mm3 (150-375); Red Blood Count 3.36 M/mm3 (4.2-5.4); Red Cell Distribution Width 17.3 % (11.5-14.5); White Blood Count 13.3 K/mm3 (4.5-10.0)
[2025-01-13 12:40] LABS: Lactic Acid Reflex 0.9 mmol/L (0.7-2.0)
[2025-01-13 12:43] LABS: INR 1.5; Prothrombin Time 18.6 Seconds (11.1-14.7)
[2025-01-13 12:44] LABS: Partial Thromboplastin Time 36.4 Seconds (22.3-36.8)
[2025-01-13 12:49] LABS: Alanine Aminotransferase 9 U/L (6-35); Albumin Level 3.7 g/dL (3.5-5.1); Alkaline Phosphatase 211 U/L (38-126); Anion Gap 8 mmol/L (4-12); Aspartate Amino Transferase 16 U/L (14-36); Bilirubin,Total 0.7 mg/dL (0.2-1.3); Blood Urea Nitrogen 34 mg/dL (7-17); Carbon Dioxide 28 mmol/L (22-30); Chloride 109 mmol/L (98-107); Estimated CRCL calculation 29 ml/min; Estimated Glomerular Filt Rate 36; Glucose 102 mg/dL (65-110); Potassium 3.9 mmol/L (3.4-5.0); Sodium 145 mmol/L (137-145)
[2025-01-13 12:51] LABS: Anisocytosis 1+; Hypochromasia 1+; Microcytosis 1+ (NORMAL); Platelet Estimate Slightly Increased (Adequate)
[2025-01-13 12:59] LABS: CRP 17.8 mg/dL (<1.0)
--- OUTSIDE RECORDS SUMMARY | 2025-01-13 13:08 | XMS_ITS | Clinical Summary ---
Author Organization [facility] Address [address] [place] [address] Care Team Providers Care Microsoft Dynamics Ax Developer Name Role Phone Ana Moore MD Primary Care Provider [phone] Allergies No known active allergies Medications atorvastatin [...] mental status 10/23/2021 Urinary incontinence Schizoaffective disorder ([facility] Multiple sclerosis ([facility]) Functional quadriplegia ([facility]) Fracture of lower end of right femur Acute kidney failure Dementia Immunizations Immunization Administration Dates Next Due PFIZER COVID-19 (ORIGINAL [...] Sex Assigned at Female 11/16/2021 12:52 AM APPARATUS REPAIR MECHANIC Legal Sex Female 7:54 PM CDT Gender Identity Female 11/16/2021 12:52 AM APPARATUS REPAIR MECHANIC Sexual Orientation Not on file Last Filed [...] 30 to 64) Every 3 Years 1966 Colorectal Cancer Screening Colonoscopy (10 Years) 1966 Annual Physical 1969 Hepatitis C 1984 DTaP, Tdap and Td Vaccines ( 1 - Tdap) 1985 Hepatitis B Vaccines (1 of 3 - 19+ 3-dose series) 1985 Cervical Cancer Screening Pa p with HPV Testing (Age 30 to 64) Every 5 Years 1996 Cervical Cancer Screening with HPV 1996 Mammogram Screening 2006 Zoster Vaccines (1 of 2) 2016 COVID-19 Vaccine (2023-2 5 season) 2024 11/05/2020, 10/14/2020 Colorectal Cancer Screening FIT/FOBT (1 Year) Discontinued 11/15/2021 Meningococcal B Vaccine Aged Out No l onger eligible based on patient's age to complete this topic Meningococcal Vaccine Aged Out No martha freya eligible based on patient's age to complete this topic Pneumococcal Vaccine: Pediatrics (0 to 5 Years) and At-Risk Patients (6 to 49 Years) Aged Out No longer eligible based on patient's age to complete this topic RSV Immunizations Under 20 Months Aged Out No longer eligible based on patient's age to complete this topic Goals Goal Patient Goal Type Associated Problems Recent Progress Patient-Stated? Author Safety - demonstrates understanding of home safety measures General No Felicita Freitas, RN Lifestyle - demonstrates correct use of assistive devices (i.e., cane, walker, shower chair) Lifestyle No Miriam Encarnacion, enrollment clerk Procedure Name Priority Date/Time Associated Diagnosis Comments OCCULT BLOOD, FECES STAT 11/15/2021 7 :54 PM APPARATUS REPAIR MECHANIC from Last 3 Months or Most Recently Relevant to Health Maintenance Results * OCCULT BLOOD, FECES (11/15/2021 7:54 PM APPARATUS REPAIR MECHANIC) OCCULT BLOOD FECAL POSITIVE 11/15/2021 8:12 PM APPARATUS REPAIR MECHANIC [facility] STOOL SPECIMEN / Unknown 11/15/2021 7:54 PM APPARATUS REPAIR MECHANIC Renato Crawford MD,PHD BODY FLUIDS AND STOOLS ORD ERABLES Final Result [facility] [address] [place] [address], from Last 3 Months or Most Recently Relevant to Health Maintenance Additional Health Concerns Infection Onset Date Last Indicated ESBL - Extended Spectrum Bet a-lactamase Comment:11/15/21 +ESBL Urine 02/05/22 +ESBL Urine 11/18/2021 11/18/2021 Insurance MEDICAID MEDICARE Advance Directives Documents on File Type Date Recorded Patient Knitting Machine Tender Expl anation Advance Directives and Living Will 11/22/2021 4:10 PM 12/04/2020 GUARDIAN OF PERSON Advance Directives and Living Will 11/18/2021 3:08 PM 09/11/2019 POLST * Full Code (Latest Code Status on File) Date Activated Date Inactivated Comments 11/15/2021 11:56 PM 11/22/2021 5:51 PM Care Teams Microsoft Dynamics Ax Developer Relationship Specialty Start Date End Date Ana Moore MD [address] [place] [address] [place] [phone] PCP - General INTERNAL MEDICINE 02/05/22
--- OUTSIDE RECORDS SUMMARY | 2025-01-13 13:08 | XMS_ITS | CONTINUITY OF CARE DOCUMENT ---
Author Name jo ann cherry Address Unknown Organization [facility] Address [address] [address] [place] [address] Phone [phone] Care Team Providers Care Virologist Name Role Phone Bhavesh DAVE, Gerald Unavailable CHERYL GONZALEZ MD Unavailable INSURANCE PROVIDERS Payer name Policy type / Coverage type Roland red democrat [employer] Medicaid 1 [id number] [place] [employer] Medicare [id number]
--- NOTE | 2025-01-13 13:27 | PC.NURSE ---
Second set of blood cultures drawn by Dr. Rodríguez.
[2025-01-13 13:28] VITALS: BP 130/82; PULSE 84; RESP 18; O2SAT 99
[2025-01-13] MEDS: PIPERACILLIN/TAZ 2.25G/NS 50ML 2.25 GM/50 ML BAG IVPB (13:46)
--- NOTE | 2025-01-13 14:50 | ED.WOUNDLAC ---
HPI - Wound/Laceration General Chief Complaint: Wound/Laceration Stated Complaint: wounds Time Seen by Provider: 01/13/25 11:58 History of Present Illness HPI narrative: Patient presenting here with worsening decubitus ulcers, she has history of MS and is quadriplegic, wound nursing concerned that she has infected ulcers and be admitted for further intervention. Patient states that she would like to have everything done; denies any new pains Related Data Home Medications ?Medication ?Instructions ?Recorded ?Confirmed ?Last Taken ?Type cholecalciferol (vitamin D3) 1,000 units G-tube DAILY 12/17/22 07/13/24 Unknown History famotidine 20 mg tablet 20 mg feeding tube BID 12/17/22 07/13/24 Unknown History ondansetron 4 mg disintegrating 4 mg PO QID PRN Nausea And Vomiting 12/17/22 07/13/24 Unknown History tablet trazodone 50 mg tablet 50 mg feeding tube HS 12/17/22 07/13/24 Unknown History hydrocodone 5 mg-acetaminophen 325 1 tablet feeding tube Q6H PRN Pain 07/27/23 07/13/24 Unknown History mg tablet (Scale Score 4-6) sennosides 8.6 mg tablet (senna) 8.6 mg feeding tube DAILY PRN 07/27/23 07/13/24 Unknown History Constipation citalopram 20 mg tablet 30 mg feeding tube HS 06/20/24 07/13/24 Unknown History dextran 70-hypromellose eye drops 1 drp EACH EYE TID 06/20/24 07/13/24 Unknown History (Artificial Tears (dextran 70-hypromellose) eye drops) metoprolol tartrate 50 mg tablet 50 mg feeding tube Q8H 06/20/24 07/13/24 Unknown History pregabalin 75 mg capsule 75 mg feeding tube DAILY 06/20/24 07/13/24 Unknown History quetiapine 25 mg tablet 25 mg feeding tube BID 06/20/24 07/13/24 Unknown History apixaban 5 mg tablet (Eliquis) 5 mg feeding tube BID 07/13/24 07/13/24 Unknown History lsyjfirc-crnm-ehhwrhs gluconate 9 15 ml PO DAILY 07/13/24 07/13/24 Unknown History mg iron/15 mL (15 mL) oral liquid (Liquid Multivitamin) oxycodone 5 mg capsule 5 mg feeding tube Q8H 07/13/24 07/13/24 Unknown History Allergies Allergy/AdvReac Type Severity Reaction Status Date / Time No Known Allergies Allergy Verified 01/13/25 11:11 Review of Systems Review of Systems: All systems reviewed & are unremarkable except as noted in HPI and below PMFSH Past Medical History Medical History Acute encephalopathy Acute on chronic anemia Anemia Anorexia Anorexia Asthma Calculus of kidney Chronic obstructive pulmonary disease Chronic respiratory failure with hypoxia, on home oxygen therapy Previously documented that the patient is oxygen dependent on 4 L nasal cannula however she denies and is on room air with good SpO2 as of 07/27/2023. Colitis COPD (chronic obstructive pulmonary disease) Dementia Depression Essential (primary) hypertension Extended spectrum beta lactamase (ESBL) resistance Fecal impaction Functional quadriplegia secondary to MS Generalized anxiety disorder GI bleed HTN (hypertension) Hyperlipidemia LEOLA (iron deficiency anemia) Intestinal obstruction Malignant neoplasm of right kidney Malnutrition MRSA infection Multiple sclerosis Multiple sclerosis Overactive bladder Pulmonary embolism (2014) Pyelonephritis Retained ureteral stent Schizoaffective disorder Schizophrenia Ureteral stent present Urinary retention Urinary tract infection due to extended-spectrum beta lactamase (ESBL) producing Escherichia coli Xanthogranulomatous pyelonephritis Surgical History Surgical History History of nephrostomy History of removal of ureteral stent 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 History of tubal ligation Family History Family History Mother Family history of multiple sclerosis Hypertension Father Patient's father is Social History Social History Social History: Patient is a ramos of the [facility]. Her guardian is Abe Burnham ([phone]). Code status: Full code. Smoking packs per day: 0.5 Smoking cigarettes per day: 10.0 Years smoked: 1 Smoking pack-years: 0.50 Smoking status: Never smoker Second hand tobacco smoke exposure: No Alcohol intake: unknown Substance use: unknown Do You Feel Safe in your Home?: No Lack of Transportation: No Lack of Food: Never True Current Housing: I Have Housing Concerned About Future Housing: No Difficulty Paying Gas/Electric Bills: No Difficulty Paying for Meds: No Currently Unemployed: No Education: High School Diploma/GED Difficulty w/ Childcare or Family Care: No Living arrangements: [facility] Additional living arrangements comments: 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ion: other Additional occupation/education comments: Disabled Spiritual care concerns: No Agree to blood products: Yes Exam Narrative: EXAMINATION OF ORGAN SYSTEMS/BODY AREAS: Constitutional: Vital signs per nursing GENERAL:[No acute distress, non-toxic appearing.] HEAD: Normal with no signs of head trauma. EYES: EOMI, conjunctiva normal ENT: Hearing grossly intact LUNGS: Nonlabored breathing. HEART: [Regular rate and rhythm] ABD: [Soft], [nontender to palpation] EXT: Contracted extremities SKIN: Multiple pressure ulcers including to bilateral hips, sacrum, right back; stages 3-4, with most significant malodorous deep ulcer to the right pelvis NEURO: [Alert and oriented x 3. Quadriplegic.] PSYCH: Normal affect Course Vital Signs Vital signs: Vital Signs Temperature 98.2 F 01/13/25 10:55 Pulse Rate 81 01/13/25 10:55 Respiratory Rate 16 01/13/25 10:55 Blood Pressure 155/91 H 01/13/25 10:55 Pulse Oximetry 100 01/13/25 10:55 Oxygen Delivery Room Air 01/13/25 10:55 Temperature 98.2 F 01/13/25 10:55 Pulse Rate 84 01/13/25 16:12 Respiratory Rate 20 01/13/25 16:12 Blood Pressure 129/85 01/13/25 16:12 Pulse Oximetry 99 01/13/25 16:12 Oxygen Delivery Room Air 01/13/25 10:55 MDM - Wound/Laceration MDM Narrative Medical decision making narrative: Patient presenting here with worsening decubitus ulcers, she has history of MS and is quadriplegic, wound nursing concerned that she has infected ulcers and be admitted for further intervention. Patient states that she would like to have everything done; denies any new pains. On exam she does have multiple decubitus ulcers, some do appear deep infected, wound care nursing or familiar with her did examine her and do feel she should be admitted for antibiotics and surgery consult. CT obtained, was which do show these ulcers with a ring enhancement, I have discussed this with General surgery, will admit to hospitalist. Given her contracted limbs IV/but dropped difficult, the blood cultures drawn by myself with ultrasound guidance in the usual fashion. Lab Data 01/13/25 12:07 01/13/25 12:07 Labs: Lab Results 01/13/25 01/13/25 Range/Units 12:07 12:08 WBC 13.3 H (4.5-10.0) K/mm3 RBC 3.36 L (4.2-5.4) M/mm3 Hgb 8.2 L (12.0-15.0) g/dL Hct 28.5 L (37.0-47.0) % MCV 84.8 (80-100) fl MCH 24.4 L (26-34) pg MCHC 28.8 L (32-36) g/dl RDW 17.3 H (11.5-14.5) % Plt Count 409 H (150-375) k/mm3 MPV 10.4 (7.4-10.4) fl Immature Gran % (Auto) 0.4 (0-0.5) % Neut % (Auto) 79.9 H (45.5-73.1) % Lymph % (Auto) 12.8 L (18.3-44.2) % [place] % (Auto) 4.8 (2.6-8.5) % Eos % (Auto) 1.7 (0-4.4) % Baso % (Auto) 0.4 (0.2-1.2) % Lymph # (Auto) 1.70 (0.9-3.2) K/mm3 [place] # (Auto) 0.6 (0.1-0.6) K/mm3 Eos # (Auto) 0.2 (0-0.3) K/mm3 Baso # (Auto) 0.1 (0.0-0.1) K/mm3 Abs Immat Gran (auto) 0.05 H (0.00-0.031) K/mm3 Absolute Neuts (auto) 10.6 H (1.3-6.7) K/mm3 Absolute Nucleated RBC 0.000 (0.0-0.012) K/mm3 Band Neutrophils % Not Reportable Nucleated RBC % 0.0 (0.0-0.2) % Platelet Estimate Slightly increased (Adequate) Hypochromasia 1+ Anisocytosis 1+ Microcytosis 1+ (NORMAL) Schistocytes Not Reportable PT 18.6 H (11.1-14.7) Seconds INR 1.5 APTT 36.4 (22.3-36.8) Seconds Sodium 145 (137-145) mmol/L Potassium 3.9 (3.4-5.0) mmol/L Chloride 109 H (98-107) mmol/L Carbon Dioxide 28 (22-30) mmol/L Anion Gap 8 (4-12) mmol/L BUN 34 H D (7-17) mg/dL Creatinine 1.49 H (0.7-1.0) mg/dL Estim Creat Clear Calc 29 ml/min Estimated GFR 36 L (59 - ) Glucose 102 (65-110) mg/dL Lactic Acid 0.9 (0.7-2.0) mmol/L Calcium 9.0 (8.4-10.2) mg/dL Total Bilirubin 0.7 (0.2-1.3) mg/dL AST 16 (14-36) U/L ALT 9 (6-35) U/L Alkaline Phosphatase 211 H (38-126) U/L C-Reactive Protein 17.8 H (<1.0) mg/dL Total Protein 9.0 H (6.3-8.2) g/dL Albumin 3.7 (3.5-5.1) g/dL Discharge Plan Discharge Clinical Impression: Decubitus ulcer, infected Patient Disposition: Still a Patient Condition: Stable
[2025-01-13 16:12] VITALS: BP 129/85; PULSE 84; RESP 20; O2SAT 99
[2025-01-13 16:29] VITALS: BMI 22.5
--- NOTE | 2025-01-13 16:30 | P.HP_ITS ---
H&P: HPI History of Present Illness Date/Time: 01/13/25 16:00 Chief Complaint: Concerns for wound infection. Narrative: This is a very pleasant 59-year-old female with quadriplegia secondary to multiple sclerosis, dementia, hypertension, pulmonary embolism, chronic obstructive pulmonary disease, chronic kidney disease stage 3, anemia, kidney stones depression, anxiety, schizoaffective disorder, MRSA infection, and ESBL E coli urinary tract infection who presented to the emergency department with concerns for wound infection. She is a fair historian and some of the following is supplemented via a review of her electronic medical records. She has a chronic pressure wound on her backside which is being treated by a clinical education specialist at her nursing facility. The wound has not been responding well to treatment recently and due to concerns for active infection she was sent in for evaluation. She has no complaints and she denies fever, chills, sweats, nausea, vomiting, and pain. In the ED: She was afebrile on arrival. Labs were significant for WBC count of 13.3, hemoglobin 8.2, platelets 409, INR 1.5, BUN 34, creatinine 1.49, alkaline phosphatase 211, CRP 17.8. CT of the abdomen and pelvis showed right basilar consolidation, findings within soft tissues of the right hemipelvis which exposed bone is suspected, induration of the surrounding soft tissues, and fecal impaction. She was started on Zosyn and is being admitted in this setting for IV antibiotics and surgery consultation. Review of Systems Review of Systems: 12 systems were reviewed and are negativ e except for as per HPI. PENDING SALE TO [facility] Past Medical History Medical History (Updated 01/13/25 @ 22:43 by Melanie Dill PA-C) Chronic kidney disease, stage 3 Anorexia Malnutrition Pulmonary embolism (2014) Xanthogranulomatous pyelonephritis MRSA infection Urinary tract infection due to extended-spectrum beta lactamase (ESBL) producing Escherichia coli Chronic respiratory failure with hypoxia, on home oxygen therapy Previously documented that the patient is oxygen dependent on 4 L nasal cannula however she denies and is on room air with good SpO2 as of 07/27/2023. 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 History of nephrostomy Family History Family History Mother Family history of multiple sclerosis Hypertension Father Patient's father is Social History Social History Social History: Patient is a [facility] of [facility] [employer]. Her guardian is Abe Burnham ([phone]). Code status: Full code. Smoking packs per day: 0.5 Smoking cigarettes per day: 10.0 Years smoked: 1 Smoking pack-years: 0.50 Smoking status: Never smoker Second hand tobacco smoke exposure: No Alcohol intake: never Substance use: never Do You Feel Safe in your Home?: Yes Lack of Transportation: No Lack of Food: Never True Current Housing: I Have Housing Concerned About Future Housing: No Difficulty Paying Gas/Electric Bills: No Difficulty Paying for Meds: No Currently Unemployed: No Education: Don't Know Difficulty w/ Childcare or Family Care: No Living arrangements: group home Additional living arrangements comments: 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ion: other Additional occupation/education comments: Disabled Spiritual care concerns: No Agree to blood products: Yes Meds Home Medications and Allergies Home Medications ?Medication ?Instructions ?Recorded ?Confirmed ?Type cholecalciferol (vitamin D3) 1,000 units G-tube DAILY 12/17/22 01/13/25 History famotidine 20 mg tablet 20 mg feeding tube BID 12/17/22 01/13/25 History ondansetron 4 mg disintegrating 4 mg PO QID PRN Nausea And Vomiting 12/17/22 01/13/25 History tablet trazodone 50 mg tablet 50 mg feeding tube HS 12/17/22 01/13/25 History sennosides 8.6 mg tablet (senna) 8.6 mg feeding tube DAILY PRN 07/27/23 01/13/25 History Constipation sodium bicarbonate 650 mg tablet 650 mg PO BID #60 tabs 01/31/24 01/13/25 Rx thiamine HCl (vitamin B1) 100 mg 300 mg (3 x 100 mg) feeding tube 01/31/24 01/13/25 Rx tablet (Vitamin B-1) QAM #90 tabs citalopram 20 mg tablet 30 mg feeding tube HS 06/20/24 01/13/25 History dextran 70-hypromellose eye drops 1 drp EACH EYE TID 06/20/24 01/13/25 History (Artificial Tears (dextran 70-hypromellose) eye drops) metoprolol tartrate 50 mg tablet 50 mg feeding tube Q8H 06/20/24 01/13/25 History pregabalin 75 mg capsule 75 mg feeding tube DAILY 06/20/24 01/13/25 History oxycodone 5 mg capsule 5 mg feeding tube Q8H 07/13/24 01/13/25 History polyethylene glycol 3350 17 gram 17 g PO QAM #30 ea 07/17/24 01/13/25 Rx oral powder packet (Miralax) acetaminophen 160 mg/5 mL oral 500 mg PO Q6H PRN fever or pain 01/13/25 01/13/25 History elixir apixaban 2.5 mg tablet (Eliquis) 2.5 mg PO Q12H 01/13/25 01/13/25 History arginine 7 gram-glutamine 7 1 ea PO BID 01/13/25 01/13/25 History gram-calcium HMB 1.5 gram oral powder pack (Maged) bisacodyl 5 mg tablet,delayed 10 mg PO DAILY 01/13/25 01/13/25 History release ipratropium bromide 0.02 % 1.25 ml inhalation DAILY PRN 01/13/25 01/13/25 History solution for inhalation shortness of breath or wheezing Allergies Allergy/AdvReac Type Severity Reaction Status Date / Time No Known Allergies Allergy Verified 01/13/25 11:11 Vital Signs Vital Signs - 24 hr 01/13/25 10:55 01/13/25 13:28 01/13/25 16:12 Temperature 98.2 F Pulse Rate 81 84 84 Respiratory Rate 16 18 20 Blood Pressure 155/91 H 130/82 129/85 Pulse Oximetry 100 99 99 Oxygen Delivery Room Air Exam Narrative: General: Chronically ill-appearing female in the semi-Car position in bed. Weight: 55.9 kg. BMI: 22.5. HEENT: PERRL, EOMI. Sclera anicteric. Tacky mucous membranes. Neck: Supple. No nuchal rigidity. No lymphadenopathy. Respiratory: Respirations are nonlabored. Lung sounds are a bit coarse at the bases. Cardiovascular: Regular rate and rhythm. Gastrointestinal: Abdomen is soft, nontender, and nondistended with positive bowel sounds. Peg tube in place. Skin: Warm and dry. Generalized pallor. Multiple stage 3 to 4 pressure ulcers. There is an open left ischial wound with some yellow slough and an open wound on the sacrum with green/yellow slough on part of the wound bed. Right ischial wound is deep with greenish-yellow slough in part of the wound bed with nonviable tissue on the perimeter. Wound also seen on the right shoulder, the stage 2 to 3. Extremities: No cyanosis, clubbing, or edema. Radial and pedal pulses intact. Neurological: Alert. Cranial nerves 2-12 are grossly intact. Bilateral pendulous nystagmus. Speech is clear. No facial asymmetry. Lower extremities are chronically contracted. Psychiatric: Pleasant and cooperative. Appropriate mood. Slightly forgetful. She is in good spirits. H&P: Results Labs Labs: Short CBC 01/13/25 Range/Units 12:07 WBC 13.3 H (4.5-10.0) K/mm3 Hgb 8.2 L (12.0-15.0) g/dL Hct 28.5 L (37.0-47.0) % Plt Count 409 H (150-375) k/mm3 BMP 01/13/25 12:07 Sodium 145 Potassium 3.9 Chloride 109 H Carbon Dioxide 28 BUN 34 H D Creatinine 1.49 H Glucose 102 Calcium 9.0 Liver Function 01/13/25 Range/Units 12:07 Total Bilirubin 0.7 (0.2-1.3) mg/dL AST 16 (14-36) U/L ALT 9 (6-35) U/L Alkaline Phosphatase 211 H (38-126) U/L Albumin 3.7 (3.5-5.1) g/dL Impressions Abdomen/Pelvis CT 01/13/25 14:32 IMPRESSION: Right basilar consolidation. Findings within the soft tissues of the right hemipelvis for which exposed bone is suspected. No rim-enhancing fluid collection is appreciated in this location. Induration of the underlying soft tissues are noted. Assessment and Plan Assessment and plan (1) Decubitus ulcers: Code(s): L89.90 - Pressure ulcer of unspecified site, unspecified stage Status: Acute (2) Right lower lobe consolidation: Code(s): J18.1 - Lobar pneumonia, unspecified organism Status: Acute (3) Fecal impaction in rectum: Code(s): K56.41 - Fecal impaction Status: Acute (4) Essential (primary) hypertension: Code(s): I10 - Essential (primary) hypertension Status: Acute (5) Chronic anemia: Code(s): D64.9 - Anemia, unspecified Status: Acute (6) Functional quadriplegia secondary to MS: Code(s): G35 - Multiple sclerosis; R53.2 - Functional quadriplegia Status: Acute (7) Chronic obstructive pulmonary disease: Code(s): J44.9 - Chronic obstructive pulmonary disease, unspecified Status: Acute (8) Chronic kidney disease, stage 3: Code(s): N18.30 - Chronic kidney disease, stage 3 unspecified Status: Acute Plan The patient presented to the emergency department with concerns for an infected decubitus ulcer as detailed in HPI. Labs, imaging, EKG, and all reports were personally reviewed. CT scan did not show any evidence of osteomyelitis. She received a dose of Zosyn in the ED and has been started on cefepime, metronidazole, and vancomycin for broader coverage given her history of MRSA in the fact that she is a group home resident. Wound culture ordered. Surgery consulted for possible debridement. Right basilar consolidation noted on CT scan though she does not have symptoms of pneumonia. She previously had some swallowing issues however did just fine with her pills and thin liquids when I was with her at bedside. She has a fecal impaction of the rectum and we will continue with her bowel regimen and order an enema for a.m.. Blood pressures have been stable and will be monitored. Creatinine is may be a bit higher than what she typically runs and she will be given a L of fluid overnight. No acute issues with regards to COPD. Hemoglobin is near baseline and will be monitored. Her home medications will be reviewed and resumed as appropriate. Findings and treatment plan were discussed with the patient. Questions were solicited and answered to satisfaction. The patient's medical management will be taken over by the hospitalist team in a.m. Quality VTE Prophylaxis VTE prophylaxis: pharmacologic ordered (on apixaban) Hospitalist MIPS Advance Care Plan I have confirmed that the patient's Advanced Care Plan is present, code status is documented, or surrogate decision maker is listed in patient medical record.: Yes Medication Reconciliation I have utilized all available resources to obtain, update and review the patients current medications (includes all prescriptions, OTC, herbals, cannabis, and nutritional supplements).: Yes
--- NOTE | 2025-01-13 16:30 | ADMGEN ---
This patient, Yesenia Perez, was admitted to Medical Room 261-01. Patient/family oriented to hospital policies and general routines including ID bracelet, bed and alarms, visiting hours, pain management, procedures, bathroom and other care routines, personal items, smoking policy, room service/diet, and visiting hours. Information on how to activate the Rapid Response Team has been discussed. Patient/Family are encouraged to report perceived risks to care and to ask questions if they do not understand what they are told or what they should do.
--- NOTE | 2025-01-13 17:48 | PC.NURSE ---
Channel Program Manager spoke with Nicky at [facility] regarding diet, reports patient is on regular diet with thin liquids, if patient eats less than 50% of meal bolus 300ml jevity 1.5 with 150ml water flush.
[2025-01-13 21:26] VITALS: BP 103/63; PULSE 93; RESP 20; TEMP 36.9; O2SAT 98
[2025-01-13] MEDS: CENTRAL LINE FLUSH 10 ML IV PUSH (21:41)
[2025-01-13] MEDS: SOD HYPOCHLORITE 1/4 STRENGTH 473 ML 1 APPLIC TOPICAL (21:41)
[2025-01-13 22:49] VITALS: BP 92/59; PULSE 93; RESP 20; O2SAT 98
[2025-01-13] MEDS: APIXABAN 2.5 MG TABLET PO (22:50)
[2025-01-13] MEDS: CITALOPRAM HYDROBROMIDE 10 MG TABLET 30 MG FEED TUBE (22:50)
[2025-01-13 22:51] VITALS: BP 96/63
[2025-01-13] MEDS: SODIUM CHLORIDE 0.9% IV 500 ML IV CONT (23:07)
[2025-01-13] MEDS: CEFEPIME 2 GM/NS 50 ML 2 GM/50 ML BAG IVPB (23:11)
[2025-01-13] MEDS: metroNIDAZOLE 500 MG/ISO 100ML 500 MG/100 ML BAG 100 MG IVPB (23:14)
[2025-01-13] MEDS: LACTATED RINGERS 1,000 ML 75 ML IV CONT (23:16)
[2025-01-14] VITALS (8 sets, daily range): BP systolic 109–145; BP diastolic 72–96; PULSE 76–88; RESP 16–20; TEMP 36.3–36.7; O2SAT 96–99; BMI 22.5
[2025-01-14] MEDS: VANCOMYCIN 1,000 MG/NS 250 ML 1,000 MG/250 ML BAG 250 MG IVPB (00:30)
[2025-01-14 05:41] LABS: Estimated CRCL calculation 35 ml/min; Estimated Glomerular Filt Rate 44
[2025-01-14] MEDS: CENTRAL LINE FLUSH 10 ML IV PUSH ×3 (05:53→21:16)
[2025-01-14] MEDS: METOPROLOL TARTRATE 50 MG TAB FEED TUBE ×3 (05:53→21:16)
[2025-01-14] MEDS: metroNIDAZOLE 500 MG/ISO 100ML 500 MG/100 ML BAG 100 MG IVPB ×3 (06:00→23:26)
[2025-01-14] MEDS: ACETAMINOPHEN ELIXIR 325 MG/10.15 ML UDC 500 MG BY MOUTH (06:07)
--- NOTE | 2025-01-14 08:13 | P.PNIM_ITS ---
Progress Note: A&P Assessment and Plan (1) Decubitus ulcers: Code(s): L89.90 - Pressure ulcer of unspecified site, unspecified stage Status: Acute Assessment and Plan: * chronic decubitus ulcer followed by [facility] * CT of the abdomen and pelvis was negative for osteomyelitis however did show exposed bone without any fluid collection, induration of underlying soft tissue * white blood cell count 13.3, C reactive protein 17.8 * patient was given a dose of Zosyn while in the ED * transition to cefepime, vancomycin, Flagyl * general surgery consulted and plans to take patient for I and D tomorrow at 1:30 p.m. * Wound nurse consulted and is suggesting 1/4th strength Dakin's gauze pad to wound bed with dressing changes twice a day (2) Right lower lobe consolidation: Code(s): J18.1 - Lobar pneumonia, unspecified organism Status: Acute Assessment and Plan: * right basilar consolidation noted on abdomen / pelvis CT * currently on room air (3) Fecal impaction in rectum: Code(s): K56.41 - Fecal impaction Status: Acute Assessment and Plan: * CT of abdomen and pelvis showed fecal stasis distending the rectum with mural thickening and surrounding inflammatory changes * continue Dulcolax, sennaosides, and MiraLax daily (4) Essential (primary) hypertension: Code(s): I10 - Essential (primary) hypertension Status: Acute Assessment and Plan: * blood pressures ranging 96/63 to 118/72 * continue metoprolol (5) Chronic anemia: Code(s): D64.9 - Anemia, unspecified Status: Acute Assessment and Plan: * hemoglobin 8.2-- appears chronic likely due to her chronic kidney disease * will check iron, ferritin, vitamin B12, folic acid, reticulocyte count, thyroid-stimulating hormone (6) Chronic kidney disease, stage 3: Code(s): N18.30 - Chronic kidney disease, stage 3 unspecified Status: Acute Assessment and Plan: * creatinine 1.49 * baseline ranges 1.10-1.50 * currently at baseline * continue to monitor (7) Functional quadriplegia secondary to MS: Code(s): G35 - Multiple sclerosis; R53.2 - Functional quadriplegia Status: Acute Assessment and Plan: of note * Contractures bilateral lower extremity, bedbound (8) COPD (chronic obstructive pulmonary disease): Code(s): J44.9 - Chronic obstructive pulmonary disease, unspecified Status: Acute Assessment and Plan: * on chronic O2 of 4 L nasal cannula Time Spent With Patient Time with patient: 25 - 35 minutes Subjective Date/time seen: 01/14/25 08:13 Interval history: Interval summary: This is a 59-year-old female with a significant past medical history of chronic kidney disease stage 3, anorexia, PE, history of MRSA infection, history of ESBL in the urine, COPD, anemia, hyperlipidemia, dementia, functional quadriplegia secondary to multiple sclerosis, Chronic decubitus ulcer, depression, anxiety, hypertension, schizoaffective disorder, asthma, overactive bladder who presented to the hospital with concerns for wound infection. patient was seen by a operator specialist communications at her nursing facility and they had concerns for infection. She was sent here for further evaluation. Workup in the hospital included an abdomen pelvis CT which was negative for osteomyelitis, showed right basilar con solidation, findings within the soft tissue of the right hemipelvis for which exposed bone is suspected, induration of the underlying soft tissue, no rim enhancing fluid collection was seen. Initial labs showed a white blood cell count of 13.3, hemoglobin 8.2, platelet count 409, INR 1.5, creatinine 1.49, EGFR 36, alkaline phosphate 211, C reactive protein 17.8. Blood cultures were obtained and pending. Patient was given 500 mL normal saline and Zosyn while in the ED. She was transition to cefepime, vancomycin, Flagyl. General surgery was consulted. Subjective: Patient denies any new complaints today. She reports generalized pain. She is alert oriented times 2-3. Labs and imaging reviewed. Review of Systems Review of Systems: All systems reviewed & are unremarkable except as noted in HPI and below Exam Narrative: General: In no acute distress, well nourished Head: atraumatic, no encephalopathy Eyes: Nystagmus noted bilaterally, PERRLA, sclera clear ENT: moist mucous membranes, nasal passages clear Neck: supple, no JVD, no adenopathy, trachea midline Cardiac: Normal S1 and S2. RRR, No murmur, gallops or friction rubs, peripheral pulses intact. Respiratory: Lungs clear to auscultation, no adventitious lung sounds, currently on 4 L nasal cannula Gastrointestinal: soft, non-distended, non-tender, normoactive bowel sounds. : voiding without difficulty. Extremities: Contracted lower extremities Skin: Multiple stage III to stage IV pressure ulcers with dressing in place Neuro: Alert and oriented 2-3, cranial nerves intact, no neuro deficits. Psych: normal mood, normal affect, interactive Objective Data Vital Signs Vital Signs: Vital Signs - 24 hr 01/13/25 10:55 01/13/25 13:28 01/13/25 16:12 Temperature 98.2 F Pulse Rate 81 84 84 Respiratory Rate 16 18 20 Blood Pressure 155/91 H 130/82 129/85 Pulse Oximetry 100 99 99 Oxygen Delivery Room Air 01/13/25 18:00 01/13/25 20:00 01/13/25 21:26 Temperature 98.4 F Pulse Rate 93 Respiratory Rate 20 Blood Pressure 103/63 Pulse Oximetry 98 Oxygen Delivery Room Air Room Air 01/13/25 22:49 01/13/25 22:51 01/14/25 00:29 Temperature Pulse Rate 93 Respiratory Rate 20 Blood Pressure 92/59 L 96/63 L 109/73 Pulse Oximetry 98 Oxygen Delivery 01/14/25 05:53 01/14/25 05:58 Temperature 98.1 F Pulse Rate 88 88 Respiratory Rate 20 Blood Pressure 118/72 Pulse Oximetry 99 Oxygen Delivery Intake/Output Intake/Output: Intake & Output 01/11/25 01/12/25 01/13/25 01/14/25 23:59 23:59 23:59 23:59 Intake Total 100 950 Output Total 300 Balance 100 650 Meds/Results Medications: Active Medications Generic Name Dose Route Start Last Admin Trade Name Freq PRN Reason Stop Dose Admin Acetaminophen 500 mg 01/13/25 22:26 01/14/25 06:07 Acetaminophen Elixir 325 Mg/10.15 Ml Udc BY MOUTH 500 mg Q6H PRN Administration fever or pain (1-6) Alteplase, Recombinant 2 mg 01/13/25 11:41 Alteplase 2 Mg Vial (Cathflo) IV PUSH ONCE PRN Line Occlusion Apixaban 2.5 mg 01/13/25 22:25 01/13/25 22:50 Apixaban 2.5 Mg Tablet PO 2.5 mg Q12HR MERLYN Administration Artificial Tears 1 drop 01/14/25 09:00 Artificial Tears Ophth Soln 15 Ml Bottle EACH EYE TID MERLYN Bisacodyl 10 mg 01/14/25 09:00 Bisacodyl 5 Mg Tablet Ec PO DAILY MERLYN Citalopram Hydrobromide 30 mg 01/13/25 22:30 01/13/25 22:50 Citalopram Hydrobromide 10 Mg Tablet FEED TUBE 30 mg HS MERLYN Administration Famotidine 20 mg 01/14/25 09:00 Famotidine 20 Mg Tablet FEED TUBE BID MERLYN Heparin Sodium (Beef Lung) 50 units 01/14/25 09:00 Heparin Flush 50 Units/5 Ml Syringe IV PUSH QAM MERLYN Heparin Sodium (Beef Lung) 50 units 01/13/25 11:45 Heparin Flush 50 Units/5 Ml Syringe IV PUSH PRN PRN after intermittent infusion Heparin Sodium (Beef Lung) 50 units 01/13/25 11:45 Heparin Flush 50 Units/5 Ml Syringe IV PUSH PRN PRN after blood draws Heparin Sodium (Porcine) 500 units 01/13/25 11:45 Heparin Sodium Lock Flush 500 Units/5 Ml Syringe IV PUSH PRN PRN see comments below Metronidazole 500 mg in 100 mls @ 100 mls/hr 01/13/25 23:00 01/14/25 07:00 Flagyl 500 Mg/Iso Soln 100 Ml IVPB Infused Q8H MERLYN Infusion Cefepime HCl 2 gm in 50 mls @ 100 mls/hr 01/14/25 00:00 01/13/25 23:41 Maxipime 2 Gm/Ns 50 Ml IVPB Infused Q24H MERLYN Infusion Lactated Ringer's 1,000 mls @ 75 mls/hr 01/13/25 23:00 01/13/25 23:16 Lr - Lactated Ringers Iv IV CONT 01/14/25 12:19 75 mls/hr .[id number] ONE Administration Vancomycin HCl 1,000 mg in 250 mls @ 250 mls/hr 01/14/25 01:00 01/14/25 01:30 Vancomycin 1,000 Mg/Ns 250 Ml IVPB Infused Q36H MERLYN Infusion Ipratropium [place] 0.5 mg 01/13/25 22:21 Ipratropium Br 0.02% Inh Soln 0.5 Mg/2.5 Ml Vial INHALATION Q6H PRN shortness of breath or wheezing Metoprolol Tartrate 50 mg 01/13/25 22:25 01/14/25 05:53 Metoprolol Tartrate 50 Mg Tab FEED TUBE 50 mg Q8HR [facility] Administration Arginine-Glutamine- 0 each 01/14/25 09:00 Calcium Hmb [Maged] XX 01/15/25 08:59 7-7-1.5 Gram Powder BID MERLYN In Packet Ondansetron HCl 4 mg 01/13/25 22:21 Ondansetron Hcl Odt 4 Mg Tablet PO QID PRN Nausea And Vomiting Oxycodone HCl 5 mg 01/13/25 22:25 Oxycodone Hcl (*Crx) 5 Mg Tab Ir FEED TUBE Q8H PRN Pain Rated 7-10 Polyethylene Glycol 17 gm 01/14/25 09:00 Polyethylene Glycol 3350 17 Gm Powd.Pack PO QAM [facility] Pregabalin 75 mg 01/14/25 09:00 Pregabalin (*Crx) 75 Mg Capsule FEED TUBE DAILY MERLYN Senna 8.6 mg 01/13/25 22:21 Sennosides 8.6 Mg Tablet FEED TUBE DAILY PRN Constipation Sodium Bicarbonate 650 mg 01/14/25 09:00 Sodium Bicarbonate Tab 650 Mg Tablet PO BID [facility] Sodium Chloride 10 ml 01/13/25 14:00 01/14/25 05:53 Central Line Flush IV PUSH 10 ml Q8HR [facility] Administration Sodium Hypochlorite 1 applic 01/13/25 09:00 01/13/25 21:41 Sod Hypochlorite 1/4 Strength 473 Ml TOPICAL 1 applic Q12HR MERLYN Administration Thiamine HCl 300 mg 01/14/25 09:00 Thiamine Hcl 100 Mg Tablet FEED TUBE QAM [facility] Trazodone HCl 50 mg 01/13/25 22:30 01/13/25 22:59 Trazodone Hcl 50 Mg Tablet FEED TUBE Not Given HS [facility] Vitamin D 1,000 units 01/14/25 09:00 Cholecalciferol 1,000 Units Tablet FEED TUBE DAILY [facility] Radiology Results: ITS Impressions Abdomen/Pelvis CT 01/13/25 14:32 IMPRESSION: Right basilar consolidation. Findings within the soft tissues of the right hemipelvis for which exposed bone is suspected. No rim-enhancing fluid collection is appreciated in this location. Induration of the underlying soft tissues are noted. Labs Labs: Laboratory Results - last 24 hr 01/13/25 01/13/25 01/14/25 12:07 12:08 04:40 WBC 13.3 H RBC 3.36 L Hgb 8.2 L Hct 28.5 L MCV 84.8 MCH 24.4 L MCHC 28.8 L RDW 17.3 H Plt Count 409 H MPV 10.4 Immature Gran % (Auto) 0.4 Neut % (Auto) 79.9 H Lymph % (Auto) 12.8 L [place] % (Auto) 4.8 Eos % (Auto) 1.7 Baso % (Auto) 0.4 Lymph # (Auto) 1.70 [place] # (Auto) 0.6 Eos # (Auto) 0.2 Baso # (Auto) 0.1 Abs Immat Gran (auto) 0.05 H Absolute Neuts (auto) 10.6 H Absolute Nucleated RBC 0.000 Band Neutrophils % Not Reportable Nucleated RBC % 0.0 Platelet Estimate Slightly increased Hypochromasia 1+ Anisocytosis 1+ Microcytosis 1+ Schistocytes Not Reportable PT 18.6 H INR 1.5 APTT 36.4 Sodium 145 Potassium 3.9 Chloride 109 H Carbon Dioxide 28 Anion Gap 8 BUN 34 H D Creatinine 1.49 H 1.25 H Estim Creat Clear Calc 29 35 Estimated GFR 36 L 44 L Glucose 102 Lactic Acid 0.9 Calcium 9.0 Total Bilirubin 0.7 AST 16 ALT 9 Alkaline Phosphatase 211 H C-Reactive Protein 17.8 H Total Protein 9.0 H Albumin 3.7 Quality VTE Prophylaxis VTE prophylaxis: pharmacologic ordered (on apixaban)
[2025-01-14 08:18] LABS: Basophils Percent Auto 0.4 % (0.2-1.2); Eosinophils Absolute Auto 0.3 K/mm3 (0-0.3); Eosinophils Percent Auto 2.6 % (0-4.4); Hematocrit 26.9 % (37.0-47.0); Hemoglobin 7.4 g/dL (12.0-15.0); Immature Granulocyte Absolute 0.04 K/mm3 (0.00-0.031); Immature Granulocyte Percent A 0.4 % (0-0.5); Lymphocytes Absolute Auto 1.86 K/mm3 (0.9-3.2); Lymphocytes Percent Auto 18.8 % (18.3-44.2); Mean Corpuscular HGB Conc 27.5 g/dl (32-36); Mean Corpuscular Hemoglobin 23.9 pg (26-34); Mean Corpuscular Volume 87.1 fl (80-100); Mean Platelet Volume 10.8 fl (7.4-10.4); Monocytes Absolute Auto 0.5 K/mm3 (0.1-0.6); Monocytes Percent Auto 4.9 % (2.6-8.5); Neutrophils Absolute Auto 7.2 K/mm3 (1.3-6.7); Neutrophils Percent Auto 72.9 % (45.5-73.1); Platelet Count Result 351 k/mm3 (150-375); Red Blood Count 3.09 M/mm3 (4.2-5.4); Red Cell Distribution Width 17.5 % (11.5-14.5); White Blood Count 9.9 K/mm3 (4.5-10.0)
[2025-01-14 08:53] LABS: Hypochromasia 2+; Platelet Estimate Adequate (Adequate)
[2025-01-14 08:54] LABS: Alanine Aminotransferase 8 U/L (6-35); Albumin Level 3.2 g/dL (3.5-5.1); Alkaline Phosphatase 179 U/L (38-126); Anion Gap 10 mmol/L (4-12); Anisocytosis 1+; Aspartate Amino Transferase 15 U/L (14-36); Bilirubin,Total 0.4 mg/dL (0.2-1.3); Blood Urea Nitrogen 31 mg/dL (7-17); CRP 17.9 mg/dL (<1.0); Calcium 8.7 mg/dL (8.4-10.2); Carbon Dioxide 22 mmol/L (22-30); Chloride 112 mmol/L (98-107); Estimated CRCL calculation 33 ml/min; Estimated Glomerular Filt Rate 42; Glucose 85 mg/dL (65-110); Magnesium 2.3 mg/dL (1.6-2.3); Ovalocytes 1+; Potassium 3.9 mmol/L (3.4-5.0); Schistocytes None Seen; Sodium 144 mmol/L (137-145)
[2025-01-14 08:55] LABS: Immature Reticulocyte Fraction 10.9 % (3.0-15.9); Reticulocyte Hemoglobin Conten 21.3 pg (28.2-36.6); Reticulocyte Percent 0.96 % (0.7-4.3); Reticulocytes Absolute 0.03 10^6/uL (0.02-0.10)
[2025-01-14 09:06] LABS: Iron 30 ug/dL (37-170)
[2025-01-14 09:16] LABS: Percent Iron Saturation 19 % (20-50)
[2025-01-14 10:17] LABS: Folic Acid 10.3 ng/mL (2.76->20)
--- NOTE | 2025-01-14 11:46 | P.CONGS_ITS ---
Assessment and Plan Assessment and plan (1) Decubitus ulcers: Code(s): L89.90 - Pressure ulcer of unspecified site, unspecified stage Status: Acute Assessment and Plan: The patient is a quadriplegic who has a history of decubitus ulcers and is bedridden at a nursing care facility. She is found to have multiple pressure ulcers over her right scapula, bilateral ischial areas, and sacrum that have developed sometime since July when she was last evaluated in the wound clinic. The most concerning wound is her unstageable right ischial decubitus ulcer that is necrotic with a foul odor, and will need surgical debridement. She also has a stage III sacral, stage III left ischial, and unstageable right scapular decubitus ulcers that do not appear grossly infected, although the right scapular ulcer does have some dark devitalized tissue. We would recommend proceeding with excisional debridement of the necrotic right ischial decubitus ulcer and possibly the right scapular ulcer in the operating room tomorrow by Dr. Penny. We will make her NPO after midnight and plan accordingly. Continue IV antibiotics and local wound care for now. She will need frequent turning/pressure offloading, and I will also order a specialty mattress today. (2) Functional quadriplegia secondary to MS: Code(s): G35 - Multiple sclerosis; R53.2 - Functional quadriplegia Status: Acute (3) Fecal impaction in rectum: Code(s): K56.41 - Fecal impaction Status: Acute Assessment and Plan: Enema ordered this morning, continue her bowel regimen (4) COPD (chronic obstructive pulmonary disease): Code(s): J44.9 - Chronic obstructive pulmonary disease, unspecified Status: Acute (5) Chronic kidney disease, stage 3: Code(s): N18.30 - Chronic kidney disease, stage 3 unspecified Status: Acute (6) Chronic anemia: Code(s): D64.9 - Anemia, unspecified Status: Acute Plan I have discussed the patient's case and plan of care with Dr. Penny. History of Present Illness Consult details Consult date: 01/14/25 Reason for consult: other (Decubitus ulcers) Requesting physician: Ruchi Rodríguez MD Narrative: This is 59-year-old female with quadriplegia secondary to multiple sclerosis, dementia, hypertension, pulmonary embolism, chronic obstructive pulmonary disease, MRSA infection, and multiple other medical problems, who we have been asked to see in surgical consultation for decubitus ulcers. She was brought into the ED from the nursing facility for concerns of wound infection. She is followed by wound care at the nursing facility and has not been responding to their treatment recently and there was concern her wounds were looking worse. She has been seen by our wound care nurses at [facility], last in July of 2024. Her ischial, sacral, and right scapular wounds were not present at that time. Workup in the ED showed a WBC count of 13.3, CRP 17.8. CT of the abdomen and pelvis showed right basilar consolidation, findings within soft tissues of the right hemipelvis which exposed bone is suspected, induration of the surrounding soft tissues, and fecal impaction. She was admitted to the Hospitalist and has been started on broad-spectrum IV antibiotics. Wound care was consulted as well. She is now seen on the medical floor with nursing staff to assist on turning. Review of Systems 2 Review of Systems: ROS unobtainable: Yes unobtainable due to mental status (fair historian, but majority of history is obtained by review of the EMR) [facility] Past Medical History Medical History Chronic kidney disease, stage 3 Anorexia Malnutrition Pulmonary embolism (2014) Xanthogranulomatous pyelonephritis MRSA infection Urinary tract infection due to extended-spectrum beta lactamase (ESBL) producing Escherichia coli Chronic respiratory failure with hypoxia, on home oxygen therapy Previously documented that the patient is oxygen dependent on 4 L nasal cannula however she denies and is on room air with good SpO2 as of 07/27/2023. 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 History of nephrostomy Family History Family History Mother Family history of multiple sclerosis Hypertension Father Patient's father is Social History Social History Social History: Patient is a ramos of the [facility]. Her guardian is Abe Burnham ([phone]). Code status: Full code. Smoking packs per day: 0.5 Smoking cigarettes per day: 10.0 Years smoked: 1 Smoking pack-years: 0.50 Smoking status: Never smoker Second hand tobacco smoke exposure: No Alcohol intake: never Substance use: never Do You Feel Safe in your Home?: Yes Lack of Transportation: No Lack of Food: Never True Current Housing: I Have Housing Concerned About Future Housing: No Difficulty Paying Gas/Electric Bills: No Difficulty Paying for Meds: No Currently Unemployed: No Education: Don't Know Difficulty w/ Childcare or Family Care: No Living arrangements: [facility] Additional living arrangements comments: 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ion: other Additional occupation/education comments: Disabled Spiritual care concerns: No Agree to blood products: Yes Meds Home Medications and Allergies Home Medications ?Medication ?Instructions ?Recorded ?Confirmed ?Type cholecalciferol (vitamin D3) 1,000 units G-tube DAILY 12/17/22 01/13/25 History famotidine 20 mg tablet 20 mg feeding tube BID 12/17/22 01/13/25 History ondansetron 4 mg disintegrating 4 mg PO QID PRN Nausea And Vomiting 12/17/22 01/13/25 History tablet trazodone 50 mg tablet 50 mg feeding tube HS 12/17/22 01/13/25 History sennosides 8.6 mg tablet (senna) 8.6 mg feeding tube DAILY PRN 07/27/23 01/13/25 History Constipation sodium bicarbonate 650 mg tablet 650 mg PO BID #60 tabs 01/31/24 01/13/25 Rx thiamine HCl (vitamin B1) 100 mg 300 mg (3 x 100 mg) feeding tube 01/31/24 01/13/25 Rx tablet (Vitamin B-1) QAM #90 tabs citalopram 20 mg tablet 30 mg feeding tube HS 06/20/24 01/13/25 History dextran 70-hypromellose eye drops 1 drp EACH EYE TID 06/20/24 01/13/25 History (Artificial Tears (dextran 70-hypromellose) eye drops) metoprolol tartrate 50 mg tablet 50 mg feeding tube Q8H 06/20/24 01/13/25 History pregabalin 75 mg capsule 75 mg feeding tube DAILY 06/20/24 01/13/25 History oxycodone 5 mg capsule 5 mg feeding tube Q8H 07/13/24 01/13/25 History polyethylene glycol 3350 17 gram 17 g PO QAM #30 ea 07/17/24 01/13/25 Rx oral powder packet (Miralax) acetaminophen 160 mg/5 mL oral 500 mg PO Q6H PRN fever or pain 01/13/25 01/13/25 History elixir apixaban 2.5 mg tablet (Eliquis) 2.5 mg PO Q12H 01/13/25 01/13/25 History arginine 7 gram-glutamine 7 1 ea PO BID 01/13/25 01/13/25 History gram-calcium HMB 1.5 gram oral powder pack (Maged) bisacodyl 5 mg tablet,delayed 10 mg PO DAILY 01/13/25 01/13/25 History release ipratropium bromide 0.02 % 1.25 ml inhalation DAILY PRN 01/13/25 01/13/25 History solution for inhalation shortness of breath or wheezing Allergies Allergy/AdvReac Type Severity Reaction Status Date / Time No Known Allergies Allergy Verified 01/13/25 11:11 Vital Signs Vital Signs - 24 hr 01/13/25 13:28 01/13/25 16:12 01/13/25 18:00 Temperature Pulse Rate 84 84 Respiratory Rate 18 20 Blood Pressure 130/82 129/85 Pulse Oximetry 99 99 Oxygen Delivery Room Air 01/13/25 20:00 01/13/25 21:26 01/13/25 22:49 Temperature 98.4 F Pulse Rate 93 93 Respiratory Rate 20 20 Blood Pressure 103/63 92/59 L Pulse Oximetry 98 98 Oxygen Delivery Room Air 01/13/25 22:51 01/14/25 00:29 01/14/25 05:53 Temperature Pulse Rate 88 Respiratory Rate Blood Pressure 96/63 L 109/73 Pulse Oximetry Oxygen Delivery 01/14/25 05:58 Temperature 98.1 F Pulse Rate 88 Respiratory Rate 20 Blood Pressure 118/72 Pulse Oximetry 99 Oxygen Delivery Exam 2 Const: General: comfortable and no acute distress O rientation/consciousness: oriented to person and oriented to place HENMT: Head: normocephalic and atraumatic Ears: hearing grossly normal bilaterally Mouth: Yes moist mucous membranes Eyes: General: appearance normal, both eyes and all related structures P upils: Equal, round and reactive pupils present Neck: Neck: normal visual inspection and full ROM Resp: Effort & Inspection: no respiratory distress Auscultation: clear to auscultation bilaterally Cardio: Rate: regular rate Rhythm: regular rhythm GI: Inspection: non-distended GI Palp: Yes Soft to palpation, No Tenderness to palpation present (GI), No Guarding due to palpation present (GI) and No Rebound tenderness present Auscultation: normal bowel sounds Skin: General skin exam: normal color Other: (See wound care note for measurements) Unstageable right scapular ulcer with 60% of the wound bed with campos and dark purple tissue and remainder is yellow slough, no purulent drainage, no odor, the wound bed is firm without crepitus or fluctuance. The surrounding skin is without erythema. Unstageable right ischial decubitus ulcer with 100% of the wound bed campos and black necrotic tissue with a foul odor and scant purulent drainage. Stage III sacral decubitus ulcer with about 80% of the wound bed pale pink and some small areas of yellow exudate and slough, no purulent drainage, no odor, wound bed is firm without fluctuance or crepitus. No surrounding erythema. Stage III left ischial decubitus ulcer that has about 90% of the wound bed pink with scant yellow slough. No purulent drainage, no odor, wound bed is firm without fluctuance or crepitus. No surrounding erythema. Neuro: General: other (SEAMUS as patient is contracted and unable to move her extremities) Extrem: General: no edema and other (contracted extremities) Psych: Mental Status: mental status grossly normal Attitude: cooperative Results Labs 01/14/25 04:40 01/14/25 04:40 Labs: Abnormal lab results 01/13/25 01/13/25 01/14/25 Range/Units 12:07 12:08 04:40 WBC 13.3 H (4.5-10.0) K/mm3 RBC 3.36 L 3.09 L (4.2-5.4) M/mm3 Hgb 8.2 L 7.4 L (12.0-15.0) g/dL Hct 28.5 L 26.9 L (37.0-47.0) % MCH 24.4 L 23.9 L (26-34) pg MCHC 28.8 L 27.5 L (32-36) g/dl RDW 17.3 H 17.5 H (11.5-14.5) % Plt Count 409 H (150-375) k/mm3 MPV 10.8 H (7.4-10.4) fl Neut % (Auto) 79.9 H (45.5-73.1) % Lymph % (Auto) 12.8 L (18.3-44.2) % Abs Immat Gran (auto) 0.05 H 0.04 H (0.00-0.031) K/mm3 Absolute Neuts (auto) 10.6 H 7.2 H (1.3-6.7) K/mm3 Retic Hgb Content 21.3 L (28.2-36.6) pg PT 18.6 H (11.1-14.7) Seconds Chloride 109 H 112 H (98-107) mmol/L BUN 34 H D 31 H (7-17) mg/dL Creatinine 1.49 H 1.25 H (0.7-1.0) mg/dL Estimated GFR 36 L (59 - ) Iron (37-170) ug/dL TIBC (261-462) ug/dL % Saturation (20-50) % Ferritin (11.1-264) ng/mL Alkaline Phosphatase 211 H (38-126) U/L C-Reactive Protein 17.8 H (<1.0) mg/dL Total Protein 9.0 H (6.3-8.2) g/dL Albumin (3.5-5.1) g/dL 01/14/25 01/14/25 Range/Units 04:40 04:40 WBC (4.5-10.0) K/mm3 RBC (4.2-5.4) M/mm3 Hgb (12.0-15.0) g/dL Hct (37.0-47.0) % MCH (26-34) pg MCHC (32-36) g/dl RDW (11.5-14.5) % Plt Count (150-375) k/mm3 MPV (7.4-10.4) fl Neut % (Auto) (45.5-73.1) % Lymph % (Auto) (18.3-44.2) % Abs Immat Gran (auto) (0.00-0.031) K/mm3 Absolute Neuts (auto) (1.3-6.7) K/mm3 Retic Hgb Content (28.2-36.6) pg PT (11.1-14.7) Seconds Chloride (98-107) mmol/L BUN (7-17) mg/dL Creatinine 1.31 H (0.7-1.0) mg/dL Estimated GFR 44 L 42 L (59 - ) Iron 30 L (37-170) ug/dL TIBC 155 L (261-462) ug/dL % Saturation 19 L (20-50) % Ferritin 428.00 H (11.1-264) ng/mL Alkaline Phosphatase 179 H (38-126) U/L C-Reactive Protein 17.9 H (<1.0) mg/dL Total Protein (6.3-8.2) g/dL Albumin 3.2 L (3.5-5.1) g/dL Diabetes panel 01/13/25 01/14/25 01/14/25 Range/Units 12:07 04:40 04:40 Sodium 145 144 (137-145) mmol/L Potassium 3.9 3.9 (3.4-5.0) mmol/L Chloride 109 H 112 H (98-107) mmol/L Carbon Dioxide 28 22 (22-30) mmol/L BUN 34 H D 31 H (7-17) mg/dL Creatinine 1.49 H 1.25 H 1.31 H (0.7-1.0) mg/dL Glucose 102 85 (65-110) mg/dL Calcium 9.0 8.7 (8.4-10.2) mg/dL AST 16 15 (14-36) U/L ALT 9 8 (6-35) U/L Alkaline Phosphatase 211 H 179 H (38-126) U/L Total Protein 9.0 H 8.0 (6.3-8.2) g/dL Albumin 3.7 3.2 L (3.5-5.1) g/dL Calcium panel 01/13/25 01/14/25 Range/Units 12:07 04:40 Calcium 9.0 8.7 (8.4-10.2) mg/dL Albumin 3.7 3.2 L (3.5-5.1) g/dL Pituitary panel 01/13/25 01/14/25 01/14/25 Range/Units 12:07 04:40 04:40 Sodium 145 144 (137-145) mmol/L Potassium 3.9 3.9 (3.4-5.0) mmol/L Chloride 109 H 112 H (98-107) mmol/L Carbon Dioxide 28 22 (22-30) mmol/L BUN 34 H D 31 H (7-17) mg/dL Creatinine 1.49 H 1.25 H 1.31 H (0.7-1.0) mg/dL Glucose 102 85 (65-110) mg/dL Calcium 9.0 8.7 (8.4-10.2) mg/dL Adrenal panel 01/13/25 01/14/25 01/14/25 Range/Units 12:07 04:40 04:40 Sodium 145 144 (137-145) mmol/L Potassium 3.9 3.9 (3.4-5.0) mmol/L Chloride 109 H 112 H (98-107) mmol/L Carbon Dioxide 28 22 (22-30) mmol/L BUN 34 H D 31 H (7-17) mg/dL Creatinine 1.49 H 1.25 H 1.31 H (0.7-1.0) mg/dL Glucose 102 85 (65-110) mg/dL Calcium 9.0 8.7 (8.4-10.2) mg/dL Total Bilirubin 0.7 0.4 (0.2-1.3) mg/dL AST 16 15 (14-36) U/L ALT 9 8 (6-35) U/L Alkaline Phosphatase 211 H 179 H (38-126) U/L Total Protein 9.0 H 8.0 (6.3-8.2) g/dL Albumin 3.7 3.2 L (3.5-5.1) g/dL All other labs normal. Imaging Additional studies: ITS Impressions Abdomen/Pelvis CT 01/13/25 14:32 IMPRESSION: Right basilar consolidation. Findings within the soft tissues of the right hemipelvis for which exposed bone is suspected. No rim-enhancing fluid collection is appreciated in this location. Induration of the underlying soft tissues are noted.
[2025-01-14] MEDS: SOD HYPOCHLORITE 1/4 STRENGTH 473 ML 1 APPLIC TOPICAL ×2 (12:02→23:09)
[2025-01-14] MEDS: ARTIFICIAL TEARS OPHTH SOLN 15 ML BOTTLE 1 DROP EACH EYE ×2 (12:02→16:56)
[2025-01-14] MEDS: THIAMINE HCL 100 MG TABLET 300 MG FEED TUBE (13:44)
[2025-01-14] MEDS: CHOLECALCIFEROL 1,000 UNITS TABLET 1000 UNITS FEED TUBE (13:44)
[2025-01-14] MEDS: BISACODYL 5 MG TABLET EC 10 MG PO (13:44)
[2025-01-14] MEDS: PREGABALIN (*CRX) 75 MG CAPSULE FEED TUBE (13:44)
[2025-01-14] MEDS: polyethylene glycoL 3350 17 GM POWD.PACK PO (13:45)
[2025-01-14] MEDS: oxyCODONE HCL (*CRX) 5 MG TAB IR FEED TUBE (16:55)
[2025-01-14] MEDS: FAMOTIDINE 20 MG TABLET FEED TUBE (16:56)
[2025-01-14] MEDS: SODIUM BICARBONATE TAB 650 MG TABLET PO (16:56)
[2025-01-14] MEDS: traZODone HCL 50 MG TABLET FEED TUBE (20:49)
[2025-01-14] MEDS: ONDANSETRON HCL ODT 4 MG TABLET PO (20:49)
[2025-01-14] MEDS: APIXABAN 2.5 MG TABLET PO (20:49)
[2025-01-14] MEDS: CITALOPRAM HYDROBROMIDE 10 MG TABLET 30 MG FEED TUBE (20:49)
[2025-01-15] VITALS (19 sets, daily range): BP systolic 116–159; BP diastolic 51–96; PULSE 62–90; RESP 8–21; TEMP 36.3–36.7; O2SAT 93–100
[2025-01-15] MEDS: CEFEPIME 2 GM/NS 50 ML 2 GM/50 ML BAG IVPB (00:30)
[2025-01-15] MEDS: oxyCODONE HCL (*CRX) 5 MG TAB IR FEED TUBE ×2 (02:21→21:01)
[2025-01-15 04:39] LABS: Basophils Percent Auto 0.4 % (0.2-1.2); Eosinophils Absolute Auto 0.3 K/mm3 (0-0.3); Eosinophils Percent Auto 2.8 % (0-4.4); Hematocrit 25.4 % (37.0-47.0); Hemoglobin 7.1 g/dL (12.0-15.0); Immature Granulocyte Absolute 0.04 K/mm3 (0.00-0.031); Immature Granulocyte Percent A 0.4 % (0-0.5); Lymphocytes Absolute Auto 1.62 K/mm3 (0.9-3.2); Lymphocytes Percent Auto 17.9 % (18.3-44.2); Mean Corpuscular Hemoglobin 23.8 pg (26-34); Mean Corpuscular Volume 85.2 fl (80-100); Mean Platelet Volume 10.1 fl (7.4-10.4); Monocytes Absolute Auto 0.5 K/mm3 (0.1-0.6); Monocytes Percent Auto 5.4 % (2.6-8.5); Neutrophils Absolute Auto 6.6 K/mm3 (1.3-6.7); Neutrophils Percent Auto 73.1 % (45.5-73.1); Platelet Count Result 334 k/mm3 (150-375); Red Blood Count 2.98 M/mm3 (4.2-5.4); Red Cell Distribution Width 17.2 % (11.5-14.5); White Blood Count 9.1 K/mm3 (4.5-10.0)
[2025-01-15 04:53] LABS: Alanine Aminotransferase 7 U/L (6-35); Albumin Level 3.2 g/dL (3.5-5.1); Alkaline Phosphatase 169 U/L (38-126); Anion Gap 10 mmol/L (4-12); Aspartate Amino Transferase 13 U/L (14-36); Bilirubin,Total 0.4 mg/dL (0.2-1.3); Blood Urea Nitrogen 25 mg/dL (7-17); CRP 8.8 mg/dL (<1.0); Calcium 8.5 mg/dL (8.4-10.2); Carbon Dioxide 22 mmol/L (22-30); Chloride 111 mmol/L (98-107); Estimated CRCL calculation 36 ml/min; Estimated Glomerular Filt Rate 45; Glucose 81 mg/dL (65-110); Magnesium 2.1 mg/dL (1.6-2.3); Potassium 3.8 mmol/L (3.4-5.0); Sodium 143 mmol/L (137-145)
[2025-01-15 04:57] LABS: Platelet Estimate Adequate (Adequate)
[2025-01-15 04:58] LABS: Anisocytosis 1+; Hypochromasia 2+; Ovalocytes 1+; Schistocytes Rare
[2025-01-15] MEDS: METOPROLOL TARTRATE 50 MG TAB FEED TUBE ×3 (06:19→21:02)
[2025-01-15] MEDS: CENTRAL LINE FLUSH 10 ML IV PUSH ×3 (06:19→21:02)
[2025-01-15] MEDS: metroNIDAZOLE 500 MG/ISO 100ML 500 MG/100 ML BAG 100 MG IVPB ×3 (08:05→23:30)
[2025-01-15] MEDS: SOD HYPOCHLORITE 1/4 STRENGTH 473 ML 1 APPLIC TOPICAL ×2 (09:22→21:02)
[2025-01-15] MEDS: ARTIFICIAL TEARS OPHTH SOLN 15 ML BOTTLE 1 DROP EACH EYE ×3 (09:23→16:18)
--- NOTE | 2025-01-15 11:43 | P.PNIM_ITS ---
Progress Note: A&P Assessment and Plan (1) Decubitus ulcers: Code(s): L89.90 - Pressure ulcer of unspecified site, unspecified stage Status: Acute Assessment and Plan: * chronic decubitus ulcer followed by [facility] * CT of the abdomen and pelvis was negative for osteomyelitis however did show exposed bone without any fluid collection, induration of underlying soft tissue * white blood cell count 13.3, C reactive protein 17.8 * patient was given a dose of Zosyn while in the ED * transition to cefepime, vancomycin, Flagyl * general surgery consulted and plans to take patient for I and D tomorrow at 1:30 p.m. * Wound nurse consulted and is suggesting 1/4th strength Dakin's gauze pad to wound bed with dressing changes twice a day 01/15 * Postop day 0 from I&D of decubitus ulcer * Continue antibiotics cefepime, vancomycin, Flagyl * White blood cell count down to 9.1 today, CRP 8.8 (2) Right lower lobe consolidation: Code(s): J18.1 - Lobar pneumonia, unspecified organism Status: Acute Assessment and Plan: * right basilar consolidation noted on abdomen / pelvis CT * currently on 4 L nasal cannula which is her baseline 01/15 * No change to current treatment plan (3) Fecal impaction in rectum: Code(s): K56.41 - Fecal impaction Status: Acute Assessment and Plan: * CT of abdomen and pelvis showed fecal stasis distending the rectum with mural thickening and surrounding inflammatory changes * continue Dulcolax, sennaosides, and MiraLax daily 01/15 * No change to current treatment plan (4) Essential (primary) hypertension: Code(s): I10 - Essential (primary) hypertension Status: Acute Assessment and Plan: * blood pressures ranging 96/63 to 118/72 * continue metoprolol 01/15 * No change to current treatment plan (5) Chronic anemia: Code(s): D64.9 - Anemia, unspecified Status: Acute Assessment and Plan: * hemoglobin 8.2-- appears chronic likely due to her chronic kidney disease * will check iron, ferritin, vitamin B12, folic acid, reticulocyte count, thyroid-stimulating hormone 01/15 * Hemoglobin 7.1 * Reticulocyte count 0.03, iron was low at 30, ferritin 428, folate 10.3, vitamin B12 760 * Will give a dose of IV iron today * Start ferrous sulfate (6) Chronic kidney disease, stage 3: Code(s): N18.30 - Chronic kidney disease, stage 3 unspecified Status: Acute Assessment and Plan: * creatinine 1.49 * baseline ranges 1.10-1.50 * currently at baseline * continue to monitor 01/15 * Creatinine 1.22 * Currently at baseline (7) Functional quadriplegia secondary to MS: Code(s): G35 - Multiple sclerosis; R53.2 - Functional quadriplegia Status: Acute Assessment and Plan: of note * Contractures bilateral lower extremity, bedbound (8) COPD (chronic obstructive pulmonary disease): Code(s): J44.9 - Chronic obstructive pulmonary disease, unspecified Status: Acute Assessment and Plan: * on chronic O2 of 4 L nasal cannula Time Spent With Patient Time with patient: 25 - 35 minutes Subjective Date/time seen: 01/15/25 11:43 Interval history: Interval summary: This is a 59-year-old female with a significant past medical history of chronic kidney disease stage 3, anorexia, PE, history of MRSA infection, history of ESBL in the urine, COPD, anemia, hyperlipidemia, dementia, functional quadriplegia secondary to multiple sclerosis, Chronic decubitus ulcer, depression, anxiety, hypertension, schizoaffective disorder, asthma, overactive bladder who presented to the hospital with concerns for wound infection. patient was seen by a microarray specialist at her nursing facility and they had concerns for infection. She was sent here for further evaluation. Workup in the hospital included an abdomen pelvis CT which was negative for osteomyelitis, showed right basilar consolidation, findings within the soft tissue of the right hemipelvis for which exposed bone is suspected, induration of the underlying soft tissue, no rim enhancing fluid collection was seen. Initial labs showed a white blood cell count of 13.3, hemoglobin 8.2, platelet count 409, INR 1.5, creatinine 1.49, EGFR 36, alkaline phosphate 211, C reactive protein 17.8. Blood cultures were obtained and pending. Patient was given 500 mL normal saline and Zosyn while in the ED. She was transition to cefepime, vancomycin, Flagyl. General surgery was consulted. 01/15/2025: Patient taken to the OR for excisional debridement of right ischial decubitus ulcer including skin, subcutaneous fat, muscle, tendon, and bone measuring 5 cm x 5 cm. Subjective: Patient denies any new complaints today. Labs reviewed. Nursing at bedside changing dressing and noted bleeding to surgical site. New dressing being placed. Instructed nursing to call General surgery team to let them know about the bleeding from the wound. Review of Systems Review of Systems: All systems reviewed & are unremarkable except as noted in HPI and below Exam Narrative: General: In no acute distress Eyes: Nystagmus noted bilaterally, PERRLA, sclera clear Cardiac: Normal S1 and S2. RRR, No murmur, gallops or friction rubs, peripheral pulses intact. Respiratory: Lungs clear to auscultation, no adventitious lung sounds, currently on 4 L nasal cannula Gastrointestinal: soft, non-distended, non-tender, normoactive bowel sounds. : voiding without difficulty. Extremities: Contracted lower extremities Skin: Multiple stage III to stage IV pressure ulcers, bleeding noted to surgical site, new dressing applied Neuro: Alert and oriented 2-3, cranial nerves intact, no neuro deficits. Objective Data Vital Signs Vital Signs: Vital Signs - 24 hr 01/14/25 13:43 01/14/25 13:57 01/14/25 21:10 Temperature 97.6 F Pulse Rate 76 76 82 Respiratory Rate 16 18 Blood Pressure 140/77 Pulse Oximetry 96 98 Oxygen Delivery Room Air 01/14/25 21:16 01/14/25 21:21 01/14/25 21:21 Temperature 97.4 F L Pulse Rate 81 82 Respiratory Rate 18 Blood Pressure 145/96 H Pulse Oximetry 98 98 Oxygen Delivery Room Air 01/15/25 05:33 01/15/25 06:19 Temperature 97.4 F L Pulse Rate 62 74 Respiratory Rate 18 Blood Pressure 116/51 L Pulse Oximetry 100 Oxygen Delivery Intake/Output Intake/Output: Intake & Output 01/12/25 01/13/25 01/14/25 01/15/25 23:59 23:59 23:59 23:59 Intake Total 100 1290 100 Output Total 510 300 Balance 100 780 -200 Meds/Results Medications: Active Medications Generic Name Dose Route Start Last Admin Trade Name Freq PRN Reason Stop Dose Admin Acetaminophen 500 mg 01/13/25 22:26 01/14/25 06:07 Acetaminophen Elixir 325 Mg/10.15 Ml Udc BY MOUTH 500 mg Q6H PRN Administration fever or pain (1-6) Alteplase, Recombinant 2 mg 01/13/25 11:41 Alteplase 2 Mg Vial (Cathflo) IV PUSH ONCE PRN Line Occlusion Apixaban 2.5 mg 01/13/25 22:25 01/15/25 09:23 Apixaban 2.5 Mg Tablet PO Not Given Q12HR MERLYN Artificial Tears 1 drop 01/14/25 09:00 01/15/25 09:23 Artificial Tears Ophth Soln 15 Ml Bottle EACH EYE 1 drop TID MERLYN Administration Bisacodyl 10 mg 01/14/25 09:00 01/14/25 13:44 Bisacodyl 5 Mg Tablet Ec PO 10 mg DAILY MERLYN Administration Citalopram Hydrobromide 30 mg 01/13/25 22:30 01/14/25 20:49 Citalopram Hydrobromide 10 Mg Tablet FEED TUBE 30 mg HS MERLYN Administration Famotidine 20 mg 01/14/25 09:00 01/15/25 09:20 Famotidine 20 Mg Tablet FEED TUBE Not Given BID MERLYN Heparin Sodium (Beef Lung) 50 units 01/14/25 09:00 01/14/25 09:13 Heparin Flush 50 Units/5 Ml Syringe IV PUSH Not Given QAM MERLYN Heparin Sodium (Beef Lung) 50 units 01/13/25 11:45 Heparin Flush 50 Units/5 Ml Syringe IV PUSH PRN PRN after intermittent infusion Heparin Sodium (Beef Lung) 50 units 01/13/25 11:45 Heparin Flush 50 Units/5 Ml Syringe IV PUSH PRN PRN after blood draws Heparin Sodium (Porcine) 500 units 01/13/25 11:45 Heparin Sodium Lock Flush 500 Units/5 Ml Syringe IV PUSH PRN PRN see comments below Metronidazole 500 mg in 100 mls @ 100 mls/hr 01/13/25 23:00 01/15/25 08:05 Flagyl 500 Mg/Iso Soln 100 Ml IVPB 100 mls/hr Q8H MERLYN Administration Cefepime HCl 2 gm in 50 mls @ 100 mls/hr 01/14/25 00:00 01/15/25 00:30 Maxipime 2 Gm/Ns 50 Ml IVPB 100 mls/hr Q24H MERLYN Administration Vancomycin HCl 1,000 mg in 250 mls @ 250 mls/hr 01/14/25 01:00 01/14/25 01:30 Vancomycin 1,000 Mg/Ns 250 Ml IVPB Infused Q36H MERLYN Infusion Ipratropium Hutch[place] 0.5 mg 01/13/25 22:21 Ipratropium Br 0.02% Inh Soln 0.5 Mg/2.5 Ml Vial INHALATION Q6H PRN shortness of breath or wheezing Metoprolol Tartrate 50 mg 01/13/25 22:25 01/15/25 06:19 Metoprolol Tartrate 50 Mg Tab FEED TUBE 50 mg Q8HR MERLYN Administration Ondansetron HCl 4 mg 01/13/25 22:21 01/14/25 20:49 Ondansetron Hcl Odt 4 Mg Tablet PO 4 mg QID PRN Administration Nausea And Vomiting Oxycodone HCl 5 mg 01/13/25 22:25 01/15/25 02:21 Oxycodone Hcl (*Crx) 5 Mg Tab Ir FEED TUBE 5 mg Q8H PRN Administration Pain Rated 7-10 Polyethylene Glycol 17 gm 01/14/25 09:00 01/14/25 13:45 Polyethylene Glycol 3350 17 Gm Powd.Pack PO 17 gm QAM MERLYN Administration Pregabalin 75 mg 01/14/25 09:00 01/14/25 13:44 Pregabalin (*Crx) 75 Mg Capsule FEED TUBE 75 mg DAILY MERLYN Administration Senna 8.6 mg 01/13/25 22:21 Sennosides 8.6 Mg Tablet FEED TUBE DAILY PRN Constipation Sodium Bicarbonate 650 mg 01/14/25 09:00 01/15/25 09:21 Sodium Bicarbonate Tab 650 Mg Tablet PO Not Given BID MERLYN Sodium Chloride 10 ml 01/13/25 14:00 01/15/25 06:19 Central Line Flush IV PUSH 10 ml Q8HR MERLYN Administration Sodium Hypochlorite 1 applic 01/13/25 09:00 01/15/25 09:22 Sod Hypochlorite 1/4 Strength 473 Ml TOPICAL 1 applic Q12HR MERLYN Administration Thiamine HCl 300 mg 01/14/25 09:00 01/14/25 13:44 Thiamine Hcl 100 Mg Tablet FEED TUBE 300 mg QAM MERLYN Administration Trazodone HCl 50 mg 01/13/25 22:30 01/14/25 20:49 Trazodone Hcl 50 Mg Tablet FEED TUBE 50 mg HS MERLYN Administration Vitamin D 1,000 units 01/14/25 09:00 01/14/25 13:44 Cholecalciferol 1,000 Units Tablet FEED TUBE 1,000 units DAILY MERLYN Administration Radiology Results: ITS Impressions Abdomen/Pelvis CT 01/13/25 14:32 IMPRESSION: Right basilar consolidation. Findings within the soft tissues of the right hemipelvis for which exposed bone is suspected. No rim-enhancing fluid collection is appreciated in this location. Induration of the underlying soft tissues are noted. Labs Labs: Laboratory Results - last 24 hr 01/15/25 04:27 WBC 9.1 RBC 2.98 L Hgb 7.1 L Hct 25.4 L MCV 85.2 MCH 23.8 L MCHC 28.0 L RDW 17.2 H Plt Count 334 MPV 10.1 Immature Gran % (Auto) 0.4 Neut % (Auto) 73.1 Lymph % (Auto) 17.9 L [place] % (Auto) 5.4 Eos % (Auto) 2.8 Baso % (Auto) 0.4 Lymph # (Auto) 1.62 [place] # (Auto) 0.5 Eos # (Auto) 0.3 Baso # (Auto) 0.0 Abs Immat Gran (auto) 0.04 H Absolute Neuts (auto) 6.6 Absolute Nucleated RBC 0.000 Band Neutrophils % Not Reportable Nucleated RBC % 0.0 Platelet Estimate Adequate Hypochromasia 2+ Anisocytosis 1+ Ovalocytes 1+ Schistocytes Rare Sodium 143 Potassium 3.8 Chloride 111 H Carbon Dioxide 22 Anion Gap 10 BUN 25 H Creatinine 1.22 H Estim Creat Clear Calc 36 Estimated GFR 45 L Glucose 81 Calcium 8.5 Magnesium 2.1 Total Bilirubin 0.4 AST 13 L ALT 7 Alkaline Phosphatase 169 H C-Reactive Protein 8.8 H Total Protein 7.0 Albumin 3.2 L Quality VTE Prophylaxis VTE prophylaxis: pharmacologic ordered (on apixaban)
--- NOTE | 2025-01-15 12:36 | WPDANESEPPF ---
Anes - Initial Pre Proc Eval Procedure: Operation Date: 01/15/25 13:30 Proposed Procedures p Irrigation & Debridement Right Ischial Wound(Right) - Darin Penny DO Date/Time: 01/15/25 12:36 Surgeon: Krysta Justice APRN Pre Op Diagnosis: decub ulcers Patient Data Age: 59 Gender: F Height: 1.57 m Weight: 55.9 kg Last Vital Signs Temp 97.4 F L 01/15/25 05:33 Pulse 74 01/15/25 06:19 Resp 18 01/15/25 05:33 BP 116/51 L 01/15/25 05:33 Pulse Ox 100 01/15/25 05:33 O2 Del Method Room Air 01/15/25 08:00 Allergies Allergy/AdvReac Type Severity Reaction Status Date / Time No Known Allergies Allergy Verified 01/13/25 11:11 Home Medications ?Medication ?Instructions ?Recorded ?Confirmed ?Type cholecalciferol (vitamin D3) 1,000 units G-tube DAILY 12/17/22 01/13/25 History famotidine 20 mg tablet 20 mg feeding tube BID 12/17/22 01/13/25 History ondansetron 4 mg disintegrating 4 mg PO QID PRN Nausea And Vomiting 12/17/22 01/13/25 History tablet trazodone 50 mg tablet 50 mg feeding tube HS 12/17/22 01/13/25 History sennosides 8.6 mg tablet (senna) 8.6 mg feeding tube DAILY PRN 07/27/23 01/13/25 History Constipation sodium bicarbonate 650 mg tablet 650 mg PO BID #60 tabs 01/31/24 01/13/25 Rx thiamine HCl (vitamin B1) 100 mg 300 mg (3 x 100 mg) feeding tube 01/31/24 01/13/25 Rx tablet (Vitamin B-1) QAM #90 tabs citalopram 20 mg tablet 30 mg feeding tube HS 06/20/24 01/13/25 History dextran 70-hypromellose eye drops 1 drp EACH EYE TID 06/20/24 01/13/25 History (Artificial Tears (dextran 70-hypromellose) eye drops) metoprolol tartrate 50 mg tablet 50 mg feeding tube Q8H 06/20/24 01/13/25 History pregabalin 75 mg capsule 75 mg feeding tube DAILY 06/20/24 01/13/25 History oxycodone 5 mg capsule 5 mg feeding tube Q8H 07/13/24 01/13/25 History polyethylene glycol 3350 17 gram 17 g PO QAM #30 ea 07/17/24 01/13/25 Rx oral powder packet (Miralax) acetaminophen 160 mg/5 mL oral 500 mg PO Q6H PRN fever or pain 01/13/25 01/13/25 History elixir apixaban 2.5 mg tablet (Eliquis) 2.5 mg PO Q12H 01/13/25 01/13/25 History arginine 7 gram-glutamine 7 1 ea PO BID 01/13/25 01/13/25 History gram-calcium HMB 1.5 gram oral powder pack (Maged) bisacodyl 5 mg tablet,delayed 10 mg PO DAILY 01/13/25 01/13/25 History release ipratropium bromide 0.02 % 1.25 ml inhalation DAILY PRN 01/13/25 01/13/25 History solution for inhalation shortness of breath or wheezing Laboratory Tests 01/15/25 04:27 WBC 9.1 K/mm3 (4.5-10.0) RBC 2.98 L M/mm3 (4.2-5.4) Hgb 7.1 L g/dL (12.0-15.0) Hct 25.4 L % (37.0-47.0) MCV 85.2 fl (80-100) MCH 23.8 L pg (26-34) MCHC 28.0 L g/dl (32-36) RDW 17.2 H % (11.5-14.5) Plt Count 334 k/mm3 (150-375) MPV 10.1 fl (7.4-10.4) Immature Gran % (Auto) 0.4 % (0-0.5) Neut % (Auto) 73.1 % (45.5-73.1) Lymph % (Auto) 17.9 L % (18.3-44.2) [place] % (Auto) 5.4 % (2.6-8.5) Eos % (Auto) 2.8 % (0-4.4) Baso % (Auto) 0.4 % (0.2-1.2) Lymph # (Auto) 1.62 K/mm3 (0.9-3.2) [place] # (Auto) 0.5 K/mm3 (0.1-0.6) Eos # (Auto) 0.3 K/mm3 (0-0.3) Baso # (Auto) 0.0 K/mm3 (0.0-0.1) Abs Immat Gran (auto) 0.04 H K/mm3 (0.00-0.031) Absolute Neuts (auto) 6.6 K/mm3 (1.3-6.7) Absolute Nucleated RBC 0.000 K/mm3 (0.0-0.012) Band Neutrophils % Not Reportable Nucleated RBC % 0.0 % (0.0-0.2) Platelet Estimate Adequate (Adequate) Hypochromasia 2+ Anisocytosis 1+ Ovalocytes 1+ Schistocytes Rare Sodium 143 mmol/L (137-145) Potassium 3.8 mmol/L (3.4-5.0) Chloride 111 H mmol/L (98-107) Carbon Dioxide 22 mmol/L (22-30) Anion Gap 10 mmol/L (4-12) BUN 25 H mg/dL (7-17) Creatinine 1.22 H mg/dL (0.7-1.0) Estim Creat Clear Calc 36 ml/min Estimated GFR 45 L (59 - ) Glucose 81 mg/dL (65-110) Calcium 8.5 mg/dL (8.4-10.2) Magnesium 2.1 mg/dL (1.6-2.3) Total Bilirubin 0.4 mg/dL (0.2-1.3) AST 13 L U/L (14-36) ALT 7 U/L (6-35) Alkaline Phosphatase 169 H U/L (38-126) C-Reactive Protein 8.8 H mg/dL (<1.0) Total Protein 7.0 g/dL (6.3-8.2) Albumin 3.2 L g/dL (3.5-5.1) Patient hx anesthesia problems: none Family hx anesthesia problems: none Results Review: All pre-operative results and documents have been reviewed as part of the pre-operative evaluation. [facility] Past Medical History Medical History Chronic kidney disease, stage 3 Anorexia Malnutrition Pulmonary embolism (2015) Xanthogranulomatous pyelonephritis MRSA infection Urinary tract infection due to extended-spectrum beta lactamase (ESBL) producing Escherichia coli Chronic respiratory failure with hypoxia, on home oxygen therapy Previously documented that the patient is oxygen dependent on 4 L nasal cannula however she denies and is on room air with good SpO2 as of 07/27/2023. 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 History of nephrostomy Family History Family History Mother Family history of multiple sclerosis Hypertension Father Patient's father is Social History Social History Social History: Patient is a ramos of the [facility] [place]. Her guardian is Abe Burnham ([phone]). Code status: Full code. Smoking packs per day: 0.5 Smoking cigarettes per day: 10.0 Years smoked: 1 Smoking pack-years: 0.50 Smoking status: Never smoker Second hand tobacco smoke exposure: No Alcohol intake: never Substance use: never Do You Feel Safe in your Home?: Yes Lack of Transportation: No Lack of Food: Never True Current Housing: I Have Housing Concerned About Future Housing: No Difficulty Paying Gas/Electric Bills: No Difficulty Paying for Meds: No Currently Unemployed: No Education: Don't Know Difficulty w/ Childcare or Family Care: No Living arrangements: half-way Additional living arrangements comments: 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ion: other Additional occupation/education comments: Disabled Spiritual care concerns: No Agree to blood products: Yes Anes - Eval Final PreProcedure Day of Procedure 01/15/25 12:36 Patient weight: normal Heart: regular rate and rhythm Lungs: clear to auscultation Airway: Mallampati scale class III and special considerations large tongue, poor opening and poor dentition Neurological: alert and oriented Last oral intake: >/= 8 hours ASA classification: IV Emergent: no Anesthetic plan: proceed Anesthesia type and monitoring: general LMA and standard monitoring Results Review: All pre-operative results and documents have been reviewed as part of the pre-operative evaluation. Informed Consent: The patient's anesthetic plan and its attendant risks and benefits were discussed with the patient/family/POA. Questions were solicited and answers provided to the satisfaction of the patient/family/POA.
[2025-01-15] MEDS: LACTATED RINGERS 1,000 ML 30 ML IV CONT (12:45)
[2025-01-15] MEDS: ONDANSETRON INJ 4 MG/2 ML VIAL IV PUSH (12:52)
[2025-01-15] MEDS: fentaNYL CITRATE INJ (*CRX) 100 MCG/2 ML VIAL 25 MCG IV PUSH ×8 (12:55→15:04)
[2025-01-15] MEDS: FAMOTIDINE 20 MG/2 ML VIAL IV PUSH (12:55)
--- NOTE | 2025-01-15 13:32 | WPDHPUPDATE1 ---
History and Physical Update Update Date/Time: 01/15/25 13:32 History and Physical has been reviewed, including an updated exam of the patient. There are NO changes in the patient's condition. Risks, benefits, and alternatives have been discussed and questions answered. Patient agrees to proceed with procedure.
[2025-01-15] MEDS: BUPIVACAINE/EPINEPHRINE 0.5% 50 ML VIAL 30 ML INFILTRATE (14:01)
--- NOTE | 2025-01-15 14:23 | W.PM.PROC2 ---
Procedure Note - Detailed Date of Procedure 01/15/25 Pre-op Diagnosis Right ischial decubitus ulcer Post-op Diagnosis Same (Stage IV right ischial decubitus ulcer with osteomyelitis) Procedure Performed Sharp excisional debridement of right ischial decubitus ulcer including skin, subcutaneous fat, muscle, tendon, and bone measuring 5 cm x 5 cm Surgeon Darin Penny, DO Anesthesia General and Local (0.5% bupivacaine with epinephrine) Indications This is a 59-year-old woman who presented with worsening decubitus ulcers. She has multiple ulcers over the sacrum, bilateral ischium, and scapular region. The right ischial ulcer has liquefaction necrosis and a foul smell. There is a significant amount of necrotic tissue within the wound bed. Decision was made to proceed with debridement of right ischial decubitus ulcer. Findings The right ischial ulcer was sharply debrided using a scalpel and scissors. The debridement included skin, subcutaneous fat, muscle, tendon, and bone. The ulcer appeared to go all the way down to bone and the bone appeared soft over this region. This is consistent with osteomyelitis. Debridement was carried out to healthy-appearing bleeding tissue. The wound was then irrigated and then packed with Betadine-soaked Kerlix gauze. Description of Procedure Procedure as well as risks, benefits, and alternatives were discussed with the patient and her power of staff attorney. Written consent was obtained and placed in chart prior to procedure. Patient was brought back to surgical suite. She was placed in left lateral decubitus position on the operating table. Time-out was done to confirm patient procedure. She was intubated by the anesthesia department. Her right buttock region was prepped and draped in sterile fashion using Betadine prep. 0.5% bupivacaine with epinephrine was infiltrated locally around the wound. Sharp debridement was initially carried out using a 15 blade scalpel. Then also used curved Morin scissors to continue excising necrotic tissue within wound bed. Excision was carried out down to healthy-appearing bleeding tissue. The debridement was carried out all the way down to bone. Once enough the necrotic tissue was adequately excised I then irrigated the wound bed with sterile saline. Hemostasis was achieved with electrocautery. Careful inspection was made around the area no other signs of infection were noted. The debridement area measured 5 cm x 5 cm. The wound was then packed with 2 in Betadine-soaked Kerlix gauze. Fluff gauze, ABD pad, and Medipore tape were then applied. The patient was then awakened from anesthesia, extubated, and transferred to recovery. Estimated Blood Loss 5 Complications No immediate complications Condition Stable Disposition Floor [facility] Billing Surgery - Charge Forward: Surgery Billing
[2025-01-15] MEDS: CHOLECALCIFEROL 1,000 UNITS TABLET 1000 UNITS FEED TUBE (15:57)
[2025-01-15] MEDS: polyethylene glycoL 3350 17 GM POWD.PACK PO (15:58)
[2025-01-15] MEDS: THIAMINE HCL 100 MG TABLET 300 MG FEED TUBE (15:58)
[2025-01-15] MEDS: PREGABALIN (*CRX) 75 MG CAPSULE FEED TUBE (15:58)
[2025-01-15] MEDS: FAMOTIDINE 20 MG TABLET FEED TUBE (16:02)
[2025-01-15] MEDS: SODIUM BICARBONATE TAB 650 MG TABLET PO (16:02)
[2025-01-15] MEDS: VANCOMYCIN 1,000 MG/NS 250 ML 1,000 MG/250 ML BAG 250 MG IVPB (17:38)
[2025-01-15] MEDS: IRON SUCROSE COMPLEX 400 MG in SODIUM CHLORIDE 0.9% IV 250 ML 108 MG IVPB (17:42)
--- NOTE | 2025-01-15 17:43 | PC.NURSE ---
Pt got up to floor at 1600. When getting pt cleaned up, myself and tech noticed dressing from surgery on Right ischium was saturated and changed dressing. New dressing was saturated in 30 seconds. Tried to stop bleeding by applying pressure for 10 minutes. Bleeding did not stop. avionics shop supervisor contacted surgeon and he said to repack wound and put a pressure dressing on. Called provider Deidre Dill, to help put on new dressing and she decided use silver nitrate sticks surgicel to help cauterize the bleeding. Took vitals signs after all this was done, vitals stable.
[2025-01-15] MEDS: SILVER NITRATE (*SP) STICK 1 EACH TOPICAL (18:09)
[2025-01-15] MEDS: FERROUS SULFATE 325 MG TABLET DR PO (18:09)
[2025-01-15] MEDS: CELLULOSE OXIDIZED 2 x 14 INCH 1 PKT XX (18:10)
--- NOTE | 2025-01-15 20:30 | PM.EVENT ---
Event Note Event Note Event Note: I received a call from the patient's nurse this evening, requesting that I come to bedside as the patient was bleeding from her operative site. She was taken to the OR today per Dr. Penny where she underwent sharp excisional debridement of right ischial decubitus ulcer including skin, subcutaneous fat, muscle, tendon, and bone measuring 5.5 cm. No immediate complications were documented an estimated blood loss was only 5 mL. The patient was nontoxic in appearance upon my entrance to the room. She was lying on her left side and the nurse was holding pressure to the wound. There were several soaked dressings noted at the side of the bed. Top layer of iodoform gauze was removed and there was quite a bit of oozing coming from the wound which appeared to be coming from several small arterioles tucked under the wound edges, making them hard to visualize. Attempts were made to find the vessels to place silver nitrate without desired effect. I spoke with on-call surgeon, Dr. Soria, and we decided to try Surgicel on the wound. With pressure the bleeding seemed to stop and a dressing was reapplied. She was alert the entire time and had no complaints of mild nausea. Blood pressures were stable. Several hours later I received another phone call that she had soaked through her dressing. Wound was re-examined and she was noted to have pretty continuous oozing. Hemostasis seemed to be obtained however when the nurse went to clean up the area around the wound, it once again began oozing. Another cut of Surgicel was held on to the wound with good results and I was told to leave the Surgicel in place overnight by Dr. Soria. Wound was redressed and the patient was placed on a 5 lb sandbag her nursing staff. Again the patient was alert and without complaints with stable vital signs. Stat hemoglobin and hematocrit was 5.8 and 20.8% respectively, down from 7.1 and 25.4%. She will be transfused 2 units of packed red blood cells. Overnight nurse to update the on-call surgeon if there continues to be issues. Critical Care Time Critical Care Time: Yes Total Critical Care Time: 50 Attestation: Due to a high probability of clinically significant, life threatening deterioration, the patient required my highest level of preparedness to intervene emergently and I personally spent this critical care time directly and personally managing the patient. This critical care time included obtaining a history; examining the patient; pulse oximetry; ordering and review of studies; arranging urgent treatment with development of a management plan; evaluation of patient's response to treatment; frequent reassessment; and discussions with other providers. It was exclusive of separately billable procedures and treating other patients and teaching time. Please see Assessment and Plan section and the rest of the note for further information on patient assessment and treatment.
[2025-01-15] MEDS: CITALOPRAM HYDROBROMIDE 10 MG TABLET 30 MG FEED TUBE (21:01)
[2025-01-15] MEDS: traZODone HCL 50 MG TABLET FEED TUBE (21:02)
[2025-01-15 21:19] LABS: Hemoglobin 4.7 g/dL (12.0-15.0)
[2025-01-15 21:20] LABS: Hematocrit 16.3 % (37.0-47.0)
[2025-01-15 22:05] LABS: Hematocrit 20.8 % (37.0-47.0); Hemoglobin 5.8 g/dL (12.0-15.0)
--- NOTE | 2025-01-15 22:55 | PC.NURSE ---
PT requires blood transfusion contacted the state legal guardian/ POA awaiting call back for consent for procedure.
[2025-01-15] MEDS: SODIUM CHLORIDE 0.9% IV 250 ML 30 ML IV CONT (23:37)
[2025-01-16] VITALS (15 sets, daily range): BP systolic 96–148; BP diastolic 67–91; PULSE 67–87; RESP 15–20; TEMP 36.3–36.8; O2SAT 95–100
[2025-01-16] MEDS: ACETAMINOPHEN ELIXIR 325 MG/10.15 ML UDC 500 MG BY MOUTH ×2 (00:16→16:34)
[2025-01-16] MEDS: CEFEPIME 2 GM/NS 50 ML 2 GM/50 ML BAG IVPB (00:40)
[2025-01-16] MEDS: CENTRAL LINE FLUSH 10 ML IV PUSH ×3 (06:03→22:01)
[2025-01-16] MEDS: METOPROLOL TARTRATE 50 MG TAB FEED TUBE (06:03)
[2025-01-16 06:07] LABS: Basophils Percent Auto 0.3 % (0.2-1.2); Eosinophils Absolute Auto 0.2 K/mm3 (0-0.3); Eosinophils Percent Auto 1.4 % (0-4.4); Hematocrit 29.1 % (37.0-47.0); Hemoglobin 8.6 g/dL (12.0-15.0); Immature Granulocyte Absolute 0.09 K/mm3 (0.00-0.031); Immature Granulocyte Percent A 0.8 % (0-0.5); Lymphocytes Percent Auto 11.8 % (18.3-44.2); Mean Corpuscular HGB Conc 29.6 g/dl (32-36); Mean Corpuscular Hemoglobin 25.9 pg (26-34); Mean Corpuscular Volume 87.7 fl (80-100); Monocytes Absolute Auto 0.6 K/mm3 (0.1-0.6); Monocytes Percent Auto 5.1 % (2.6-8.5); Neutrophils Absolute Auto 9.6 K/mm3 (1.3-6.7); Neutrophils Percent Auto 80.6 % (45.5-73.1); Platelet Count Result 327 k/mm3 (150-375); Red Blood Count 3.32 M/mm3 (4.2-5.4); Red Cell Distribution Width 16.3 % (11.5-14.5); White Blood Count 11.9 K/mm3 (4.5-10.0)
[2025-01-16 06:20] LABS: Alanine Aminotransferase 8 U/L (6-35); Albumin Level 2.9 g/dL (3.5-5.1); Alkaline Phosphatase 143 U/L (38-126); Anion Gap 7 mmol/L (4-12); Aspartate Amino Transferase 15 U/L (14-36); Bilirubin,Total 0.8 mg/dL (0.2-1.3); Blood Urea Nitrogen 22 mg/dL (7-17); CRP 6.8 mg/dL (<1.0); Calcium 8.3 mg/dL (8.4-10.2); Carbon Dioxide 22 mmol/L (22-30); Chloride 111 mmol/L (98-107); Estimated CRCL calculation 40 ml/min; Estimated Glomerular Filt Rate 52; Glucose 86 mg/dL (65-110); Sodium 140 mmol/L (137-145)
[2025-01-16 07:00] LABS: Platelet Estimate Adequate (Adequate)
[2025-01-16 07:01] LABS: Anisocytosis 1+; Burr Cells 2+; Ovalocytes 1+; Schistocytes None Seen
--- NOTE | 2025-01-16 08:52 | P.PNIM_ITS ---
Progress Note: A&P Assessment and Plan (1) Decubitus ulcers: Code(s): L89.90 - Pressure ulcer of unspecified site, unspecified stage Status: Acute Assessment and Plan: * chronic decubitus ulcer followed by [facility] * CT of the abdomen and pelvis was negative for osteomyelitis however did show exposed bone without any fluid collection, induration of underlying soft tissue * white blood cell count 13.3, C reactive protein 17.8 * patient was given a dose of Zosyn while in the ED * transition to cefepime, vancomycin, Flagyl * general surgery consulted and plans to take patient for I and D tomorrow at 1:30 p.m. * Wound nurse consulted and is suggesting 1/4th strength Dakin's gauze pad to wound bed with dressing changes twice a day 01/15 * Postop day 0 from I&D of decubitus ulcer * Continue antibiotics cefepime, vancomycin, Flagyl * White blood cell count down to 9.1 today, CRP 8.8 01/16 * Postop day 1 from I&D of decubitus ulcer * Transition to Augmentin and doxycycline * Wound bed continued to bleed through the night requiring Surgicel pressure dressing to be applied. Hemoglobin dropped to 5.8 and she received 2 units of blood through the night. General surgery notified. * Continue pain control * White blood cell count 11.9 today, CRP 6.8 (2) Right lower lobe consolidation: Code(s): J18.1 - Lobar pneumonia, unspecified organism Status: Acute Assessment and Plan: * right basilar consolidation noted on abdomen / pelvis CT * currently on 4 L nasal cannula which is her baseline 01/15 * No change to current treatment plan (3) Fecal impaction in rectum: Code(s): K56.41 - Fecal impaction Status: Acute Assessment and Plan: * CT of abdomen and pelvis showed fecal stasis distending the rectum with mural thickening and surrounding inflammatory changes * continue Dulcolax, sennaosides, and MiraLax daily 01/15 * No change to current treatment plan (4) Essential (primary) hypertension: Code(s): I10 - Essential (primary) hypertension Status: Acute Assessment and Plan: * blood pressures ranging 96/63 to 118/72 * continue metoprolol 01/15 * No change to current treatment plan (5) Chronic anemia: Code(s): D64.9 - Anemia, unspecified Status: Acute Assessment and Plan: * hemoglobin 8.2-- appears chronic likely due to her chronic kidney disease * will check iron, ferritin, vitamin B12, folic acid, reticulocyte count, thyroid-stimulating hormone 01/15 * Hemoglobin 7.1 * Reticulocyte count 0.03, iron was low at 30, ferritin 428, folate 10.3, vitamin B12 760 * Will give a dose of IV iron today * Start ferrous sulfate 01/16 * Patient continued to bleed from the wound overnight requiring Surgicel pressure dressing. General surgery was notified * Hemoglobin dropped to 5.8 requiring 2 units of blood the overnight. Post transfusion hemoglobin 8.6 * Continue ferrous sulfate (6) Chronic kidney disease, stage 3: Code(s): N18.30 - Chronic kidney disease, stage 3 unspecified Status: Acute Assessment and Plan: * creatinine 1.49 * baseline ranges 1.10-1.50 * currently at baseline * continue to monitor 01/15 * Creatinine 1.22 * Currently at baseline 01/16 * Creatinine 1.08 * No change to current treatment plan (7) Functional quadriplegia secondary to MS: Code(s): G35 - Multiple sclerosis; R53.2 - Functional quadriplegia Status: Acute Assessment and Plan: of note * Contractures bilateral lower extremity, bedbound (8) COPD (chronic obstructive pulmonary disease): Code(s): J44.9 - Chronic obstructive pulmonary disease, unspecified Status: Acute Assessment and Plan: * on chronic O2 of 4 L nasal cannula Time Spent With Patient Time with patient: 25 - 35 minutes Subjective Date/time seen: 01/16/25 08:52 Interval history: Interval summary: This is a 59-year-old female with a significant past medical history of chronic kidney disease stage 3, anorexia, PE, history of MRSA infection, history of ESBL in the urine, COPD, anemia, hyperlipidemia, dementia, functional quadriplegia secondary to multiple sclerosis, Chronic decubitus ulcer, depression, anxiety, hypertension, schizoaffective disorder, asthma, overactive bladder who presented to the hospital with concerns for wound infection. patient was seen by a wound treatment rn at her nursing facility and they had concerns for infection. She was sent here for further evaluation. Workup in the hospital included an abdomen pelvis CT which was negative for osteomyelitis, showed right basilar consolida tion, findings within the soft tissue of the right hemipelvis for which exposed bone is suspected, induration of the underlying soft tissue, no rim enhancing fluid collection was seen. Initial labs showed a white blood cell count of 13.3, hemoglobin 8.2, platelet count 409, INR 1.5, creatinine 1.49, EGFR 36, alkaline phosphate 211, C reactive protein 17.8. Blood cultures were obtained and pending. Patient was given 500 mL normal saline and Zosyn while in the ED. She was transition to cefepime, vancomycin, Flagyl. General surgery was consulted. 01/15/2025: Patient taken to the OR for excisional debridement of right ischial decubitus ulcer including skin, subcutaneous fat, muscle, tendon, and bone measuring 5 cm x 5 cm. Subjective: Patient received 2 units of blood overnight due to her wound bed bleeding. She currently has a pressure dressing with Surgicel in place. Her hemoglobin is stable. Dr. Penny notified. Review of Systems Review of Systems: 12 systems were reviewed and are negativ e except for as per HPI. All systems reviewed & are unremarkable except as noted in HPI and below Exam Narrative: General: In no acute distress Eyes: Nystagmus noted bilaterally, PERRLA, sclera clear Cardiac: Normal S1 and S2. RRR, No murmur, gallops or friction rubs, peripheral pulses intact. Respiratory: Lungs clear to auscultation, no adventitious lung sounds, currently on 4 L nasal cannula Gastrointestinal: soft, non-distended, non-tender, normoactive bowel sounds. : voiding without difficulty. Extremities: Contracted lower extremities Skin: Multiple stage III to stage IV pressure ulcers, bleeding noted to surgical site, pressure dressing with Surgicel Neuro: Alert and oriented 2-3, cranial nerves intact, no neuro deficits. Objective Data Vital Signs Vital Signs: Vital Signs - 24 hr 01/15/25 12:56 01/15/25 14:24 01/15/25 14:30 Temperature 98.1 F 97.5 F L Pulse Rate 89 87 89 Respiratory Rate 18 8 L 13 Blood Pressure 147/89 H 128/88 136/88 Pulse Oximetry 99 100 99 Oxygen Delivery Room Air Simple Face Mask Room Air Oxygen Flow Rate 8 01/15/25 14:45 01/15/25 15:00 01/15/25 15:15 Temperature Pulse Rate 88 90 87 Respiratory Rate 18 19 15 Blood Pressure 142/87 H 128/90 139/96 H Pulse Oximetry 100 100 100 Oxygen Delivery Room Air Room Air Room Air Oxygen Flow Rate 01/15/25 15:30 01/15/25 15:43 01/15/25 15:59 Temperature Pulse Rate 86 86 87 Respiratory Rate 21 H 21 H Blood Pressure 129/90 129/88 Pulse Oximetry 99 99 Oxygen Delivery Room Air Room Air Oxygen Flow Rate 01/15/25 16:00 01/15/25 16:15 01/15/25 17:40 Temperature 97.3 F L 97.3 F L 97.6 F Pulse Rate 87 83 78 Respiratory Rate 18 20 20 Blood Pressure 143/87 H 145/94 H 159/90 H Pulse Oximetry 100 98 100 Oxygen Delivery Oxygen Flow Rate 01/15/25 18:13 01/15/25 20:50 01/15/25 21:27 Temperature 97.6 F 97.3 F L Pulse Rate 75 84 87 Respiratory Rate 19 18 20 Blood Pressure 149/89 H 149/96 H Pulse Oximetry 93 96 97 Oxygen Delivery Room Air Oxygen Flow Rate 01/15/25 23:27 01/15/25 23:43 01/16/25 00:16 Temperature 97.8 F 97.7 F 97.8 F Pulse Rate 87 84 87 Respiratory Rate 20 18 20 Blood Pressure 131/91 H 153/90 H 131/91 H Pulse Oximetry 96 96 96 Oxygen Delivery Oxygen Flow Rate 01/16/25 00:43 01/16/25 00:55 01/16/25 01:12 Temperature 97.9 F 98.1 F 98.1 F Pulse Rate 81 84 80 Respiratory Rate 16 18 15 Blood Pressure 130/77 140/90 130/70 Pulse Oximetry 95 96 96 Oxygen Delivery Oxygen Flow Rate 01/16/25 02:12 01/16/25 05:32 01/16/25 06:03 Temperature 97.9 F 98.2 F Pulse Rate 78 71 84 Respiratory Rate 19 20 Blood Pressure 140/86 148/89 H Pulse Oximetry 98 99 Oxygen Delivery Oxygen Flow Rate 01/16/25 07:15 01/16/25 07:59 01/16/25 08:06 Temperature 97.8 F 97.8 F 97.8 F Pulse Rate 67 67 67 Respiratory Rate 16 16 16 Blood Pressure 133/79 133/79 133/79 Pulse Oximetry 100 100 100 Oxygen Delivery Oxygen Flow Rate Intake/Output Intake/Output: Intake & Output 01/13/25 01/14/25 01/15/25 01/16/25 23:59 23:59 23:59 23:59 Intake Total 100 1290 810 850 Output Total 510 300 Balance 100 780 510 850 Meds/Results Medications: Active Medications Generic Name Dose Route Start Last Admin Trade Name Freq PRN Reason Stop Dose Admin Acetaminophen 500 mg 01/13/25 22:26 01/16/25 00:16 Acetaminophen Elixir 325 Mg/10.15 Ml Udc BY MOUTH 500 mg Q6H PRN Administration fever or pain (1-6) Alteplase, Recombinant 2 mg 01/13/25 11:41 Alteplase 2 Mg Vial (Cathflo) IV PUSH ONCE PRN Line Occlusion Apixaban 2.5 mg 01/13/25 22:25 01/15/25 21:02 Apixaban 2.5 Mg Tablet PO Not Given Q12HR MERLYN Artificial Tears 1 drop 01/14/25 09:00 01/15/25 16:18 Artificial Tears Ophth Soln 15 Ml Bottle EACH EYE 1 drop TID MERLYN Administration Bisacodyl 10 mg 01/14/25 09:00 01/15/25 15:42 Bisacodyl 5 Mg Tablet Ec PO Not Given DAILY MERLYN Citalopram Hydrobromide 30 mg 01/13/25 22:30 01/15/25 21:01 Citalopram Hydrobromide 10 Mg Tablet FEED TUBE 30 mg HS MERLYN Administration Famotidine 20 mg 01/14/25 09:00 01/15/25 16:02 Famotidine 20 Mg Tablet FEED TUBE 20 mg BID MERLYN Administration Fentanyl Citrate 25 mcg 01/15/25 12:41 01/15/25 15:04 Fentanyl Citrate Inj (*Crx) 100 Mcg/2 Ml Vial IV PUSH 25 mcg Q2M PRN Administration Pain Fentanyl Citrate 25 mcg 01/15/25 13:15 01/15/25 13:00 Fentanyl Citrate Inj (*Crx) 100 Mcg/2 Ml Vial IV PUSH 25 mcg Q2M PRN Administration Pain Rated 7-10 Ferrous Sulfate 325 mg 01/15/25 17:00 01/15/25 18:09 Ferrous Sulfate [address] PO 325 mg BID MERLYN Administration Heparin Sodium (Beef Lung) 50 units 01/14/25 09:00 01/15/25 15:59 Heparin Flush 50 Units/5 Ml Syringe IV PUSH Not Given QAM MERLYN Heparin Sodium (Beef Lung) 50 units 01/13/25 11:45 Heparin Flush 50 Units/5 Ml Syringe IV PUSH PRN PRN after intermittent infusion Heparin Sodium (Beef Lung) 50 units 01/13/25 11:45 Heparin Flush 50 Units/5 Ml Syringe IV PUSH PRN PRN after blood draws Heparin Sodium (Porcine) 500 units 01/13/25 11:45 Heparin Sodium Lock Flush 500 Units/5 Ml Syringe IV PUSH PRN PRN see comments below Metronidazole 500 mg in 100 mls @ 100 mls/hr 01/13/25 23:00 01/16/25 08:36 Flagyl 500 Mg/Iso Soln 100 Ml IVPB Infused Q8H MERLYN Infusion Cefepime HCl 2 gm in 50 mls @ 100 mls/hr 01/14/25 00:00 01/16/25 00:40 Maxipime 2 Gm/Ns 50 Ml IVPB 100 mls/hr Q24H MERLYN Administration Vancomycin HCl 1,000 mg in 250 mls @ 250 mls/hr 01/16/25 17:00 Vancomycin 1,000 Mg/Ns 250 Ml IVPB Q24H MERLYN Ipratropium [place] 0.5 mg 01/13/25 22:21 Ipratropium Br 0.02% Inh Soln 0.5 Mg/2.5 Ml Vial INHALATION Q6H PRN shortness of breath or wheezing Metoprolol Tartrate 50 mg 01/13/25 22:25 01/16/25 06:03 Metoprolol Tartrate 50 Mg Tab FEED TUBE 50 mg Q8HR MERLYN Administration Ondansetron HCl 4 mg 01/13/25 22:21 01/14/25 20:49 Ondansetron Hcl Odt 4 Mg Tablet PO 4 mg QID PRN Administration Nausea And Vomiting Ondansetron HCl 4 mg 01/15/25 12:41 01/15/25 12:52 Ondansetron Inj 4 Mg/2 Ml Vial IV PUSH 4 mg ONCE PRN Administration Nausea Oxycodone HCl 5 mg 01/13/25 22:25 01/15/25 21:01 Oxycodone Hcl (*Crx) 5 Mg Tab Ir FEED TUBE 5 mg Q8H PRN Administration Pain Rated 7-10 Polyethylene Glycol 17 gm 01/14/25 09:00 01/15/25 15:58 Polyethylene Glycol 3350 17 Gm Powd.Pack PO 17 gm QAM MERLYN Administration Pregabalin 75 mg 01/14/25 09:00 01/15/25 15:58 Pregabalin (*Crx) 75 Mg Capsule FEED TUBE 75 mg DAILY MERLYN Administration Senna 8.6 mg 01/13/25 22:21 Sennosides 8.6 Mg Tablet FEED TUBE DAILY PRN Constipation Sodium Bicarbonate 650 mg 01/14/25 09:00 01/15/25 16:02 Sodium Bicarbonate Tab 650 Mg Tablet PO 650 mg BID MERLYN Administration Sodium Chloride 10 ml 01/13/25 14:00 01/16/25 06:03 Central Line Flush IV PUSH 10 ml Q8HR MERLYN Administration Sodium Hypochlorite 1 applic 01/13/25 09:00 01/15/25 21:02 Sod Hypochlorite 1/4 Strength 473 Ml TOPICAL 1 applic Q12HR MERLYN Administration Thiamine HCl 300 mg 01/14/25 09:00 01/15/25 15:58 Thiamine Hcl 100 Mg Tablet FEED TUBE 300 mg QAM MERLYN Administration Trazodone HCl 50 mg 01/13/25 22:30 01/15/25 21:02 Trazodone Hcl 50 Mg Tablet FEED TUBE 50 mg HS MERLYN Administration Vitamin D 1,000 units 01/14/25 09:00 01/15/25 15:57 Cholecalciferol 1,000 Units Tablet FEED TUBE 1,000 units DAILY MERLYN Administration Radiology Results: ITS Impressions Abdomen/Pelvis CT 01/13/25 14:32 IMPRESSION: Right basilar consolidation. Findings within the soft tissues of the right hemipelvis for which exposed bone is suspected. No rim-enhancing fluid collection is appreciated in this location. Induration of the underlying soft tissues are noted. Labs Labs: Laboratory Results - last 24 hr 01/15/25 01/15/25 01/15/25 20:53 21:41 21:56 WBC RBC Hgb 4.7 L* 5.8 L* Hct 16.3 L* 20.8 L* MCV MCH MCHC RDW Plt Count MPV Immature Gran % (Auto) Neut % (Auto) Lymph % (Auto) [place] % (Auto) Eos % (Auto) Baso % (Auto) Lymph # (Auto) [place] # (Auto) Eos # (Auto) Baso # (Auto) Abs Immat Gran (auto) Absolute Neuts (auto) Absolute Nucleated RBC Band Neutrophils % Nucleated RBC % Platelet Estimate Anisocytosis Ovalocytes [place] Cells Schistocytes Sodium Potassium Chloride Carbon Dioxide Anion Gap BUN Creatinine Estim Creat Clear Calc Estimated GFR Glucose Calcium Magnesium Total Bilirubin AST ALT Alkaline Phosphatase C-Reactive Protein Total Protein Albumin Blood Type O Positive Antibody Screen Negative Crossmatch See Detail 01/16/25 05:50 WBC 11.9 H RBC 3.32 L Hgb 8.6 L Hct 29.1 L MCV 87.7 MCH 25.9 L D MCHC 29.6 L RDW 16.3 H Plt Count 327 MPV 10.0 Immature Gran % (Auto) 0.8 H Neut % (Auto) 80.6 H Lymph % (Auto) 11.8 L [place] % (Auto) 5.1 Eos % (Auto) 1.4 Baso % (Auto) 0.3 Lymph # (Auto) 1.40 [place] # (Auto) 0.6 Eos # (Auto) 0.2 Baso # (Auto) 0.0 Abs Immat Gran (auto) 0.09 H Absolute Neuts (auto) 9.6 H Absolute Nucleated RBC 0.000 Band Neutrophils % Not Reportable Nucleated RBC % 0.0 Platelet Estimate Adequate Anisocytosis 1+ Ovalocytes 1+ [place] Cells 2+ Schistocytes None seen Sodium 140 Potassium 4.0 Chloride 111 H Carbon Dioxide 22 Anion Gap 7 BUN 22 H Creatinine 1.08 H Estim Creat Clear Calc 40 Estimated GFR 52 L Glucose 86 Calcium 8.3 L Magnesium 2.0 Total Bilirubin 0.8 AST 15 ALT 8 Alkaline Phosphatase 143 H C-Reactive Protein 6.8 H Total Protein 7.0 Albumin 2.9 L Blood Type Antibody Screen Crossmatch Quality VTE Prophylaxis VTE prophylaxis: pharmacologic ordered (on apixaban)
[2025-01-16] MEDS: metroNIDAZOLE 500 MG/ISO 100ML 500 MG/100 ML BAG 100 MG IVPB (09:35)
[2025-01-16] MEDS: ARTIFICIAL TEARS OPHTH SOLN 15 ML BOTTLE 1 DROP EACH EYE ×3 (09:37→16:36)
[2025-01-16] MEDS: polyethylene glycoL 3350 17 GM POWD.PACK PO (09:40)
[2025-01-16] MEDS: BISACODYL 5 MG TABLET EC 10 MG PO (09:41)
[2025-01-16] MEDS: CHOLECALCIFEROL 1,000 UNITS TABLET 1000 UNITS FEED TUBE (09:42)
[2025-01-16] MEDS: FAMOTIDINE 20 MG TABLET FEED TUBE ×2 (09:42→16:34)
[2025-01-16] MEDS: PREGABALIN (*CRX) 75 MG CAPSULE FEED TUBE (09:43)
[2025-01-16] MEDS: FERROUS SULFATE 325 MG TABLET DR PO ×2 (09:43→16:33)
[2025-01-16] MEDS: SODIUM BICARBONATE TAB 650 MG TABLET PO ×2 (09:44→16:34)
[2025-01-16] MEDS: ONDANSETRON HCL ODT 4 MG TABLET PO ×2 (09:45→19:58)
[2025-01-16] MEDS: THIAMINE HCL 100 MG TABLET 300 MG FEED TUBE (09:45)
--- NOTE | 2025-01-16 11:06 | PCNFU ---
Nutrition Follow-Up Complete: Increased protein energy needs related to wounds healing as evidenced by multiple pressure injuries Adequate intakes at least 75% to support wound healing - Progressing. Pt had 100% breakfast today Goal: Pt current nutrition is Regular diet, Ensure Enlive BID (350 kcal, 20 g protein). Nutrition recommendation: Oral nutrition supplement: Maged BID (90 kcal, 2.5 g protein, arginine and glutamine for wound healing support) Last recorded weight is 55.9 kg. Bowel Motility: No BMs are recorded Labs Reviewed: Hgb 8.6, Hct 29.1, Alb 2.9, BUN 22, Cre 1.08 Meds Noted: Miralax, pepcid, thiamine, Vit D Skin: Multiple pressure injuries: Stage 3 sacrum, R ischium, L ischium; Unstageable R scapula Additional Notes: Pt had wound debridement yesterday. Eating better today. Add Maged for wounds Monitoring intakes, weights, labs, diet advancement, plan of care Follow up in 3 days
[2025-01-16] MEDS: DOXYCYCLINE HYCLATE 100 MG TABLET PO ×2 (12:38→22:00)
[2025-01-16] MEDS: AMOXICILLIN/CLAVULANATE K 875-125 MG TAB 1 TABLET PO ×2 (12:38→22:01)
--- NOTE | 2025-01-16 15:24 | PM.PNGS ---
Progress Note: A&P Assessment and Plan (1) Decubitus ulcer, infected: Qualifiers: Pressure injury stage: stage 4 Qualified Code(s): L89.94 - Pressure ulcer of unspecified site, stage 4; L08.9 - Local infection of the skin and subcutaneous tissue, unspecified Code(s): L89.90 - Pressure ulcer of unspecified site, unspecified stage; L08.9 - Local infection of the skin and subcutaneous tissue, unspecified Status: Acute Assessment and Plan: Necrotic and infected tissue adequately debrided yesterday. Patient had significant bleeding at the wound bed overnight, but I was able to control bleeding with suture ligation this morning. Will keep packing in place throughout the day today and reassess tomorrow. Nursing instructed to notify me if bleeding persists. (2) Osteomyelitis: Qualifiers: Osteomyelitis type: chronic multifocal Osteomyelitis location: other site Qualified Code(s): M86.38 - Chronic multifocal osteomyelitis, other site Code(s): M86.9 - Osteomyelitis, unspecified Status: Acute Assessment and Plan: Right ischial wound goes down all the way to the ischium and there appeared to be evidence of osteomyelitis. (3) Anemia: Qualifiers: Other causes of anemia: acute posthemorrhagic Anemia type: other cause Qualified Code(s): D62 - Acute posthemorrhagic anemia Code(s): D64.9 - Anemia, unspecified Status: Acute Subjective Subjective Date/Time Seen: 01/16/25 15:24 Interval history: Patient had significant wound bleeding overnight. Wound kept bleeding despite pressure and Surgicel packing. Had to be transfused 2 units PRBC. Exam Back/Spine/Pelvis: Other: Right ischial wound bandage removed. Minor venous bleeding noted in upper lateral location. 2 [id number] 3-0 Vicryl sutures placed and bleeding was adequately controlled. There was 1 other area of bleeding in the base of the wound near the ischial bone. Another [id number] 3-0 Vicryl suture was placed at this location and hemostasis appeared adequate. Wound was then packed with 4 in Kerlix gauze, 4 x 4 gauze and ABD pad applied. Objective Data Vital Signs Vital Signs: Vital Signs - 24 hr 01/15/25 15:30 01/15/25 15:43 01/15/25 15:59 Temperature Pulse Rate 86 86 87 Respiratory Rate 21 H 21 H Blood Pressure 129/90 129/88 Pulse Oximetry 99 99 Oxygen Delivery Room Air Room Air 01/15/25 16:00 01/15/25 16:15 01/15/25 17:40 Temperature 97.3 F L 97.3 F L 97.6 F Pulse Rate 87 83 78 Respiratory Rate 18 20 20 Blood Pressure 143/87 H 145/94 H 159/90 H Pulse Oximetry 100 98 100 Oxygen Delivery 01/15/25 18:13 01/15/25 20:50 01/15/25 21:27 Temperature 97.6 F 97.3 F L Pulse Rate 75 84 87 Respiratory Rate 19 18 20 Blood Pressure 149/89 H 149/96 H Pulse Oximetry 93 96 97 Oxygen Delivery Room Air 01/15/25 23:27 01/15/25 23:43 01/16/25 00:16 Temperature 97.8 F 97.7 F 97.8 F Pulse Rate 87 84 87 Respiratory Rate 20 18 20 Blood Pressure 131/91 H 153/90 H 131/91 H Pulse Oximetry 96 96 96 Oxygen Delivery 01/16/25 00:43 01/16/25 00:55 01/16/25 01:12 Temperature 97.9 F 98.1 F 98.1 F Pulse Rate 81 84 80 Respiratory Rate 16 18 15 Blood Pressure 130/77 140/90 130/70 Pulse Oximetry 95 96 96 Oxygen Delivery 01/16/25 02:12 01/16/25 05:32 01/16/25 06:03 Temperature 97.9 F 98.2 F Pulse Rate 78 71 84 Respiratory Rate 19 20 Blood Pressure 140/86 148/89 H Pulse Oximetry 98 99 Oxygen Delivery 01/16/25 07:15 01/16/25 07:59 01/16/25 08:06 Temperature 97.8 F 97.8 F 97.8 F Pulse Rate 67 67 67 Respiratory Rate 16 16 16 Blood Pressure 133/79 133/79 133/79 Pulse Oximetry 100 100 100 Oxygen Delivery 01/16/25 11:22 01/16/25 13:32 01/16/25 15:04 Temperature 97.3 F L 97.7 F 97.9 F Pulse Rate 75 75 77 Respiratory Rate 16 16 16 Blood Pressure 121/73 96/67 L 109/74 Pulse Oximetry 100 100 100 Oxygen Delivery Intake/Output Intake/Output: Intake & Output 0401/14/25 01/15/25 01/16/25 23:59 23:59 23:59 23:59 Intake Total 100 1290 810 950 Output Total 510 300 Balance 100 780 510 950 Meds/Results Medications: Active Medications Generic Name Dose Route Start Last Admin Trade Name Freq PRN Reason Stop Dose Admin Acetaminophen 500 mg 01/13/25 22:26 01/16/25 00:16 Acetaminophen Elixir 325 Mg/10.15 Ml Udc BY MOUTH 500 mg Q6H PRN Administration fever or pain (1-6) Alteplase, Recombinant 2 mg 01/13/25 11:41 Alteplase 2 Mg Vial (Cathflo) IV PUSH ONCE PRN Line Occlusion Amoxicillin/Clavulanate Potassium 1 tablet 01/16/25 09:35 01/16/25 12:38 Amoxicillin/Clavulanate K 875-125 Mg Tab PO 01/29/25 21:01 1 tablet Q12HR MERLYN Administration Apixaban 2.5 mg 01/13/25 22:25 01/15/25 21:02 Apixaban 2.5 Mg Tablet PO Not Given Q12HR MERLYN Artificial Tears 1 drop 01/14/25 09:00 01/16/25 12:38 Artificial Tears Ophth Soln 15 Ml Bottle EACH EYE 1 drop TID MERLYN Administration Bisacodyl 10 mg 01/14/25 09:00 01/16/25 09:41 Bisacodyl 5 Mg Tablet Ec PO 10 mg DAILY MERLYN Administration Citalopram Hydrobromide 30 mg 01/13/25 22:30 01/15/25 21:01 Citalopram Hydrobromide 10 Mg Tablet FEED TUBE 30 mg HS MERLYN Administration Doxycycline Hyclate 100 mg 01/16/25 09:35 01/16/25 12:38 Doxycycline Hyclate 100 Mg Tablet PO 01/29/25 21:01 100 mg Q12HR MERLYN Administration Famotidine 20 mg 01/14/25 09:00 01/16/25 09:42 Famotidine 20 Mg Tablet FEED TUBE 20 mg BID MERLYN Administration Fentanyl Citrate 25 mcg 01/15/25 12:41 01/15/25 15:04 Fentanyl Citrate Inj (*Crx) 100 Mcg/2 Ml Vial IV PUSH 25 mcg Q2M PRN Administration Pain Fentanyl Citrate 25 mcg 01/15/25 13:15 01/15/25 13:00 Fentanyl Citrate Inj (*Crx) 100 Mcg/2 Ml Vial IV PUSH 25 mcg Q2M PRN Administration Pain Rated 7-10 Ferrous Sulfate 325 mg 01/16/25 12:00 01/16/25 12:37 Ferrous Sulfate [address] PO Not Given BID@1200,1700 [facility] Heparin Sodium (Beef Lung) 50 units 01/14/25 09:00 01/16/25 09:41 Heparin Flush 50 Units/5 Ml Syringe IV PUSH 50 units QAM MERLYN Administration Heparin Sodium (Beef Lung) 50 units 01/13/25 11:45 Heparin Flush 50 Units/5 Ml Syringe IV PUSH PRN PRN after intermittent infusion Heparin Sodium (Beef Lung) 50 units 01/13/25 11:45 Heparin Flush 50 Units/5 Ml Syringe IV PUSH PRN PRN after blood draws Heparin Sodium (Porcine) 500 units 01/13/25 11:45 Heparin Sodium Lock Flush 500 Units/5 Ml Syringe IV PUSH PRN PRN see comments below Ipratropium [place] 0.5 mg 01/13/25 22:21 Ipratropium Br 0.02% Inh Soln 0.5 Mg/2.5 Ml Vial INHALATION Q6H PRN shortness of breath or wheezing Metoprolol Tartrate 50 mg 01/13/25 22:25 01/16/25 06:03 Metoprolol Tartrate 50 Mg Tab FEED TUBE 50 mg Q8HR [facility] Administration Ondansetron HCl 4 mg 01/13/25 22:21 01/16/25 09:45 Ondansetron Hcl Odt 4 Mg Tablet PO 4 mg QID PRN Administration Nausea And Vomiting Ondansetron HCl 4 mg 01/15/25 12:41 01/15/25 12:52 Ondansetron Inj 4 Mg/2 Ml Vial IV PUSH 4 mg ONCE PRN Administration Nausea Oxycodone HCl 5 mg 01/13/25 22:25 01/15/25 21:01 Oxycodone Hcl (*Crx) 5 Mg Tab Ir FEED TUBE 5 mg Q8H PRN Administration Pain Rated 7-10 Polyethylene Glycol 17 gm 01/14/25 09:00 01/16/25 09:40 Polyethylene Glycol 3350 17 Gm Powd.Pack PO 17 gm QAM MERLYN Administration Pregabalin 75 mg 01/14/25 09:00 01/16/25 09:43 Pregabalin (*Crx) 75 Mg Capsule FEED TUBE 75 mg DAILY MERLYN Administration Senna 8.6 mg 01/13/25 22:21 Sennosides 8.6 Mg Tablet FEED TUBE DAILY PRN Constipation Sodium Bicarbonate 650 mg 01/14/25 09:00 01/16/25 09:44 Sodium Bicarbonate Tab 650 Mg Tablet PO 650 mg BID MERLYN Administration Sodium Chloride 10 ml 01/13/25 14:00 01/16/25 15:12 Central Line Flush IV PUSH 10 ml Q8HR MERLYN Administration Sodium Hypochlorite 1 applic 01/13/25 09:00 01/16/25 09:44 Sod Hypochlorite 1/4 Strength 473 Ml TOPICAL Not Given Q12HR MERLYN Thiamine HCl 300 mg 01/14/25 09:00 01/16/25 09:45 Thiamine Hcl 100 Mg Tablet FEED TUBE 300 mg QAM MERLYN Administration Trazodone HCl 50 mg 01/13/25 22:30 01/15/25 21:02 Trazodone Hcl 50 Mg Tablet FEED TUBE 50 mg HS MERLYN Administration Vitamin D 1,000 units 01/14/25 09:00 01/16/25 09:42 Cholecalciferol 1,000 Units Tablet FEED TUBE 1,000 units DAILY MERLYN Administration Radiology Results: ITS Impressions Abdomen/Pelvis CT 01/13/25 14:32 IMPRESSION: Right basilar consolidation. Findings within the soft tissues of the right hemipelvis for which exposed bone is suspected. No rim-enhancing fluid collection is appreciated in this location. Induration of the underlying soft tissues are noted. Labs Labs: Laboratory Results - last 24 hr 01/15/25 01/15/25 01/15/25 20:53 21:41 21:56 WBC RBC Hgb 4.7 L* 5.8 L* Hct 16.3 L* 20.8 L* MCV MCH MCHC RDW Plt Count MPV Immature Gran % (Auto) Neut % (Auto) Lymph % (Auto) [place] % (Auto) Eos % (Auto) Baso % (Auto) Lymph # (Auto) [place] # (Auto) Eos # (Auto) Baso # (Auto) Abs Immat Gran (auto) Absolute Neuts (auto) Absolute Nucleated RBC Band Neutrophils % Nucleated RBC % Platelet Estimate Anisocytosis Ovalocytes [place] Cells Schistocytes Sodium Potassium Chloride Carbon Dioxide Anion Gap BUN Creatinine Estim Creat Clear Calc Estimated GFR Glucose Calcium Magnesium Total Bilirubin AST ALT Alkaline Phosphatase C-Reactive Protein Total Protein Albumin Blood Type O Positive Antibody Screen Negative Crossmatch See Detail 01/16/25 05:50 WBC 11.9 H RBC 3.32 L Hgb 8.6 L Hct 29.1 L MCV 87.7 MCH 25.9 L D MCHC 29.6 L RDW 16.3 H Plt Count 327 MPV 10.0 Immature Gran % (Auto) 0.8 H Neut % (Auto) 80.6 H Lymph % (Auto) 11.8 L [place] % (Auto) 5.1 Eos % (Auto) 1.4 Baso % (Auto) 0.3 Lymph # (Auto) 1.40 [place] # (Auto) 0.6 Eos # (Auto) 0.2 Baso # (Auto) 0.0 Abs Immat Gran (auto) 0.09 H Absolute Neuts (auto) 9.6 H Absolute Nucleated RBC 0.000 Band Neutrophils % Not Reportable Nucleated RBC % 0.0 Platelet Estimate Adequate Anisocytosis 1+ Ovalocytes 1+ Jaime Cells 2+ Schistocytes None seen Sodium 140 Potassium 4.0 Chloride 111 H Carbon Dioxide 22 Anion Gap 7 BUN 22 H Creatinine 1.08 H Estim Creat Clear Calc 40 Estimated GFR 52 L Glucose 86 Calcium 8.3 L Magnesium 2.0 Total Bilirubin 0.8 AST 15 ALT 8 Alkaline Phosphatase 143 H C-Reactive Protein 6.8 H Total Protein 7.0 Albumin 2.9 L Blood Type Antibody Screen Crossmatch
--- NOTE | 2025-01-16 18:49 | P.PNAN_ITS ---
Anes - Prog Note Post-Op Date/Time: 01/16/25 18:49 Cardiovascular status: normal Respiratory status: normal Airway patency: baseline Mental status: baseline Post-Op hydration status: normal Vital Signs: Last Vital Signs Temp 36.6 C 01/16/25 15:04 Pulse 77 01/16/25 15:04 Resp 16 01/16/25 15:04 BP 109/74 01/16/25 15:04 Pulse Ox 100 01/16/25 15:04 O2 Del Method Room Air 01/15/25 20:50 O2 Flow Rate 8 01/15/25 14:24 Pain Score (VAS): 0 I/O: Intake & Output 01/16/25 01/16/25 01/16/25 07:59 15:59 23:59 Intake Total 750 200 Balance 750 200 Laboratory Tests 01/16/25 05:50 01/16/25 05:50 01/15/25 01/15/25 01/15/25 20:53 21:41 21:56 WBC RBC Hgb 4.7 L* 5.8 L* Hct 16.3 L* 20.8 L* MCV MCH MCHC RDW Plt Count MPV Immature Gran % (Auto) Neut % (Auto) Lymph % (Auto) [place] % (Auto) Eos % (Auto) Baso % (Auto) Lymph # (Auto) [place] # (Auto) Eos # (Auto) Baso # (Auto) Abs Immat Gran (auto) Absolute Neuts (auto) Absolute Nucleated RBC Band Neutrophils % Nucleated RBC % Platelet Estimate Anisocytosis Ovalocytes [place] Cells Schistocytes Sodium Potassium Chloride Carbon Dioxide Anion Gap BUN Creatinine Estim Creat Clear Calc Estimated GFR Glucose Calcium Magnesium Total Bilirubin AST ALT Alkaline Phosphatase C-Reactive Protein Total Protein Albumin Blood Type O Positive Antibody Screen Negative Crossmatch See Detail 01/16/25 05:50 WBC 11.9 H RBC 3.32 L Hgb 8.6 L Hct 29.1 L MCV 87.7 MCH 25.9 L D MCHC 29.6 L RDW 16.3 H Plt Count 327 MPV 10.0 Immature Gran % (Auto) 0.8 H Neut % (Auto) 80.6 H Lymph % (Auto) 11.8 L [place] % (Auto) 5.1 Eos % (Auto) 1.4 Baso % (Auto) 0.3 Lymph # (Auto) 1.40 [place] # (Auto) 0.6 Eos # (Auto) 0.2 Baso # (Auto) 0.0 Abs Immat Gran (auto) 0.09 H Absolute Neuts (auto) 9.6 H Absolute Nucleated RBC 0.000 Band Neutrophils % Not Reportable Nucleated RBC % 0.0 Platelet Estimate Adequate Anisocytosis 1+ Ovalocytes 1+ Jaime Cells 2+ Schistocytes None seen Sodium 140 Potassium 4.0 Chloride 111 H Carbon Dioxide 22 Anion Gap 7 BUN 22 H Creatinine 1.08 H Estim Creat Clear Calc 40 Estimated GFR 52 L Glucose 86 Calcium 8.3 L Magnesium 2.0 Total Bilirubin 0.8 AST 15 ALT 8 Alkaline Phosphatase 143 H C-Reactive Protein 6.8 H Total Protein 7.0 Albumin 2.9 L Blood Type Antibody Screen Crossmatch Post-procedural complaints: none Patient Feedback: Patient satisfied with anesthetic care.
[2025-01-16] MEDS: CITALOPRAM HYDROBROMIDE 10 MG TABLET 30 MG FEED TUBE (22:00)
[2025-01-16] MEDS: oxyCODONE HCL (*CRX) 5 MG TAB IR FEED TUBE (22:01)
[2025-01-16] MEDS: SOD HYPOCHLORITE 1/4 STRENGTH 473 ML 1 APPLIC TOPICAL (22:01)
[2025-01-16] MEDS: traZODone HCL 50 MG TABLET FEED TUBE (22:01)
[2025-01-17 05:19] LABS: Basophils Percent Auto 0.3 % (0.2-1.2); Eosinophils Absolute Auto 0.3 K/mm3 (0-0.3); Eosinophils Percent Auto 2.5 % (0-4.4); Hematocrit 31.8 % (37.0-47.0); Hemoglobin 9.4 g/dL (12.0-15.0); Immature Granulocyte Absolute 0.04 K/mm3 (0.00-0.031); Immature Granulocyte Percent A 0.4 % (0-0.5); Lymphocytes Absolute Auto 1.65 K/mm3 (0.9-3.2); Lymphocytes Percent Auto 16.7 % (18.3-44.2); Mean Corpuscular HGB Conc 29.6 g/dl (32-36); Mean Corpuscular Hemoglobin 25.8 pg (26-34); Mean Corpuscular Volume 87.4 fl (80-100); Monocytes Absolute Auto 0.5 K/mm3 (0.1-0.6); Monocytes Percent Auto 5.1 % (2.6-8.5); Neutrophils Absolute Auto 7.4 K/mm3 (1.3-6.7); Red Blood Count 3.64 M/mm3 (4.2-5.4); Red Cell Distribution Width 17.1 % (11.5-14.5); White Blood Count 9.9 K/mm3 (4.5-10.0)
[2025-01-17] MEDS: ONDANSETRON HCL ODT 4 MG TABLET PO (05:27)
[2025-01-17] MEDS: CENTRAL LINE FLUSH 10 ML IV PUSH ×3 (05:30→20:08)
[2025-01-17 05:44] LABS: Anisocytosis 1+; Platelet Estimate Adequate (Adequate); Schistocytes None Seen
[2025-01-17] MEDS: oxyCODONE HCL (*CRX) 5 MG TAB IR FEED TUBE (06:06)
[2025-01-17 07:54] LABS: Alanine Aminotransferase 9 U/L (6-35); Albumin Level 3.1 g/dL (3.5-5.1); Alkaline Phosphatase 171 U/L (38-126); Anion Gap 10 mmol/L (4-12); Aspartate Amino Transferase 12 U/L (14-36); Bilirubin,Total 0.6 mg/dL (0.2-1.3); Blood Urea Nitrogen 20 mg/dL (7-17); CRP 7.9 mg/dL (<1.0); Calcium 8.6 mg/dL (8.4-10.2); Carbon Dioxide 23 mmol/L (22-30); Chloride 109 mmol/L (98-107); Estimated CRCL calculation 40 ml/min; Estimated Glomerular Filt Rate 52; Glucose 116 mg/dL (65-110); Potassium 3.7 mmol/L (3.4-5.0); Sodium 142 mmol/L (137-145)
[2025-01-17 08:59] VITALS: BP 105/75; PULSE 96; RESP 16; TEMP 36.4; O2SAT 100
[2025-01-17] MEDS: BISACODYL 5 MG TABLET EC 10 MG PO (09:58)
[2025-01-17] MEDS: AMOXICILLIN/CLAVULANATE K 875-125 MG TAB 1 TABLET PO ×2 (09:58→20:08)
[2025-01-17] MEDS: PREGABALIN (*CRX) 75 MG CAPSULE FEED TUBE (09:58)
[2025-01-17] MEDS: THIAMINE HCL 100 MG TABLET 300 MG FEED TUBE (09:58)
[2025-01-17] MEDS: DOXYCYCLINE HYCLATE 100 MG TABLET PO ×2 (09:58→20:07)
[2025-01-17] MEDS: polyethylene glycoL 3350 17 GM POWD.PACK PO (09:58)
[2025-01-17] MEDS: FAMOTIDINE 20 MG TABLET FEED TUBE ×2 (09:58→17:47)
[2025-01-17] MEDS: CHOLECALCIFEROL 1,000 UNITS TABLET 1000 UNITS FEED TUBE (09:59)
[2025-01-17] MEDS: SODIUM BICARBONATE TAB 650 MG TABLET PO ×2 (09:59→17:47)
--- NOTE | 2025-01-17 10:11 | P.PNGS_ITS ---
Progress Note: A&P Assessment and Plan (1) Decubitus ulcer, infected: Qualifiers: Pressure injury stage: stage 4 Qualified Code(s): L89.94 - Pressure ulcer of unspecified site, stage 4; L08.9 - Local infection of the skin and subcutaneous tissue, unspecified Code(s): L89.90 - Pressure ulcer of unspecified site, unspecified stage; L08.9 - Local infection of the skin and subcutaneous tissue, unspecified Status: Acute Assessment and Plan: * Continue daily dressing changes with [place]'s soaked gauze, ABD pads, and tape * Avoid continued pressure injury with frequent position changes * Will continue to follow as needed (2) Osteomyelitis: Qualifiers: Osteomyelitis type: chronic multifocal Osteomyelitis location: other site Qualified Code(s): M86.38 - Chronic multifocal osteomyelitis, other site Code(s): M86.9 - Osteomyelitis, unspecified Status: Acute Assessment and Plan: * Right ischial wound goes down all the way to the ischium and there appeared to be evidence of osteomyelitis. (3) Anemia: Qualifiers: Anemia type: other cause Other causes of anemia: acute posthemorrhagic Qualified Code(s): D62 - Acute posthemorrhagic anemia Code(s): D64.9 - Anemia, unspecified Status: Acute Subjective Subjective Date/Time Seen: 01/17/25 10:11 Interval history: No more bleeding from her right ischial wound. All wounds assessed dressing changed at bedside with nurse. Exam Skin: Other: Right scapular wound with minimal necrotic surface Right ischial wound with no further signs of bleeding, mostly healthy appearing granulation tissue Left ischial wound tunneling subcu but no foul-smelling drainage or signs of necrosis Midline sacral wound with healthy appearing granulation tissue Objective Data Vital Signs Vital Signs: Vital Signs - 24 hr 01/16/25 11:22 01/16/25 13:32 01/16/25 15:04 Temperature 97.3 F L 97.7 F 97.9 F Pulse Rate 75 75 77 Respiratory Rate 16 16 16 Blood Pressure 121/73 96/67 L 109/74 Pulse Oximetry 100 100 100 01/16/25 17:32 01/16/25 22:09 01/17/25 08:59 Temperature 97.6 F 97.7 F 97.6 F Pulse Rate 73 73 96 Respiratory Rate 16 18 16 Blood Pressure 102/69 142/80 H 105/75 Pulse Oximetry 100 99 100 Intake/Output Intake/Output: Intake & Output 01/14/25 01/15/25 01/16/25 01/17/25 23:59 23:59 23:59 23:59 Intake Total 3789 419 2254 50 Output Total 510 300 400 800 Balance 780 510 610 -750 Meds/Results Medications: Active Medications Generic Name Dose Route Start Last Admin Trade Name Freq PRN Reason Stop Dose Admin Acetaminophen 500 mg 01/13/25 22:26 01/16/25 16:34 Acetaminophen Elixir 325 Mg/10.15 Ml Udc BY MOUTH 500 mg Q6H PRN Administration fever or pain (1-6) Alteplase, Recombinant 2 mg 01/13/25 11:41 Alteplase 2 Mg Vial (Cathflo) IV PUSH ONCE PRN Line Occlusion Amoxicillin/Clavulanate Potassium 1 tablet 01/16/25 09:35 01/17/25 09:58 Amoxicillin/Clavulanate K 875-125 Mg Tab PO 01/29/25 21:01 1 tablet Q12HR MERLYN Administration Apixaban 2.5 mg 01/13/25 22:25 01/15/25 21:02 Apixaban 2.5 Mg Tablet PO Not Given Q12HR MERLYN Artificial Tears 1 drop 01/14/25 09:00 01/16/25 16:36 Artificial Tears Ophth Soln 15 Ml Bottle EACH EYE 1 drop TID MERLYN Administration Bisacodyl 10 mg 01/14/25 09:00 01/17/25 09:58 Bisacodyl 5 Mg Tablet Ec PO 10 mg DAILY MERLYN Administration Citalopram Hydrobromide 30 mg 01/13/25 22:30 01/16/25 22:00 Citalopram Hydrobromide 10 Mg Tablet FEED TUBE 30 mg HS MERLYN Administration Doxycycline Hyclate 100 mg 01/16/25 09:35 01/17/25 09:58 Doxycycline Hyclate 100 Mg Tablet PO 01/29/25 21:01 100 mg Q12HR MERLYN Administration Famotidine 20 mg 01/14/25 09:00 01/17/25 09:58 Famotidine 20 Mg Tablet FEED TUBE 20 mg BID MERLYN Administration Fentanyl Citrate 25 mcg 01/15/25 12:41 01/15/25 15:04 Fentanyl Citrate Inj (*Crx) 100 Mcg/2 Ml Vial IV PUSH 25 mcg Q2M PRN Administration Pain Fentanyl Citrate 25 mcg 01/15/25 13:15 01/15/25 13:00 Fentanyl Citrate Inj (*Crx) 100 Mcg/2 Ml Vial IV PUSH 25 mcg Q2M PRN Administration Pain Rated 7-10 Ferrous Sulfate 325 mg 01/16/25 12:00 01/16/25 16:33 Ferrous Sulfate [address] PO 325 mg BID@1200,1700 [facility] Administration Heparin Sodium (Beef Lung) 50 units 01/14/25 09:00 01/17/25 09:58 Heparin Flush 50 Units/5 Ml Syringe IV PUSH 50 units QAM MERLYN Administration Heparin Sodium (Beef Lung) 50 units 01/13/25 11:45 Heparin Flush 50 Units/5 Ml Syringe IV PUSH PRN PRN after intermittent infusion Heparin Sodium (Beef Lung) 50 units 01/13/25 11:45 Heparin Flush 50 Units/5 Ml Syringe IV PUSH PRN PRN after blood draws Heparin Sodium (Porcine) 500 units 01/13/25 11:45 Heparin Sodium Lock Flush 500 Units/5 Ml Syringe IV PUSH PRN PRN see comments below Ipratropium [place] 0.5 mg 01/13/25 22:21 Ipratropium Br 0.02% Inh Soln 0.5 Mg/2.5 Ml Vial INHALATION Q6H PRN shortness of breath or wheezing Metoprolol Tartrate 50 mg 01/13/25 22:25 01/16/25 16:32 Metoprolol Tartrate 50 Mg Tab FEED TUBE Not Given Q8HR [facility] Ondansetron HCl 4 mg 01/13/25 22:21 01/17/25 05:27 Ondansetron Hcl Odt 4 Mg Tablet PO 4 mg QID PRN Administration Nausea And Vomiting Ondansetron HCl 4 mg 01/15/25 12:41 01/15/25 12:52 Ondansetron Inj 4 Mg/2 Ml Vial IV PUSH 4 mg ONCE PRN Administration Nausea Oxycodone HCl 5 mg 01/13/25 22:25 01/17/25 06:06 Oxycodone Hcl (*Crx) 5 Mg Tab Ir FEED TUBE 5 mg Q8H PRN Administration Pain Rated 7-10 Polyethylene Glycol 17 gm 01/14/25 09:00 01/17/25 09:58 Polyethylene Glycol 3350 17 Gm Powd.Pack PO 17 gm QAM MERLYN Administration Pregabalin 75 mg 01/14/25 09:00 01/17/25 09:58 Pregabalin (*Crx) 75 Mg Capsule FEED TUBE 75 mg DAILY MERLYN Administration Senna 8.6 mg 01/13/25 22:21 Sennosides 8.6 Mg Tablet FEED TUBE DAILY PRN Constipation Sodium Bicarbonate 650 mg 01/14/25 09:00 01/17/25 09:59 Sodium Bicarbonate Tab 650 Mg Tablet PO 650 mg BID MERLYN Administration Sodium Chloride 10 ml 01/13/25 14:00 01/17/25 05:30 Central Line Flush IV PUSH 10 ml Q8HR MERLYN Administration Sodium Hypochlorite 1 applic 01/13/25 09:00 01/16/25 22:01 Sod Hypochlorite 1/4 Strength 473 Ml TOPICAL 1 applic Q12HR MERLYN Administration Thiamine HCl 300 mg 01/14/25 09:00 01/17/25 09:58 Thiamine Hcl 100 Mg Tablet FEED TUBE 300 mg QAM MERLYN Administration Trazodone HCl 50 mg 01/13/25 22:30 01/16/25 22:01 Trazodone Hcl 50 Mg Tablet FEED TUBE 50 mg HS MERLYN Administration Vitamin D 1,000 units 01/14/25 09:00 01/17/25 09:59 Cholecalciferol 1,000 Units Tablet FEED TUBE 1,000 units DAILY MERLYN Administration Radiology Results: ITS Impressions Abdomen/Pelvis CT 01/13/25 14:32 IMPRESSION: Right basilar consolidation. Findings within the soft tissues of the right hemipelvis for which exposed bone is suspected. No rim-enhancing fluid collection is appreciated in this location. Induration of the underlying soft tissues are noted. Labs Labs: Laboratory Results - last 24 hr 01/17/25 01/17/25 05:04 07:03 WBC 9.9 RBC 3.64 L Hgb 9.4 L Hct 31.8 L MCV 87.4 MCH 25.8 L MCHC 29.6 L RDW 17.1 H Plt Count TNP MPV TNP Immature Gran % (Auto) 0.4 Neut % (Auto) 75.0 H Lymph % (Auto) 16.7 L [place] % (Auto) 5.1 Eos % (Auto) 2.5 Baso % (Auto) 0.3 Lymph # (Auto) 1.65 [place] # (Auto) 0.5 Eos # (Auto) 0.3 Baso # (Auto) 0.0 Abs Immat Gran (auto) 0.04 H Absolute Neuts (auto) 7.4 H Absolute Nucleated RBC 0.000 Band Neutrophils % Not Reportable Nucleated RBC % 0.0 Platelet Estimate Adequate % Immature Plt Fraction 3.0 Anisocytosis 1+ Schistocytes None seen Sodium 142 Potassium 3.7 Chloride 109 H Carbon Dioxide 23 Anion Gap 10 BUN 20 H Creatinine 1.08 H Estim Creat Clear Calc 40 Estimated GFR 52 L Glucose 116 H Calcium 8.6 Magnesium 2.0 Total Bilirubin 0.6 AST 12 L ALT 9 Alkaline Phosphatase 171 H C-Reactive Protein 7.9 H Total Protein 7.0 Albumin 3.1 L
[2025-01-17] MEDS: ARTIFICIAL TEARS OPHTH SOLN 15 ML BOTTLE 1 DROP EACH EYE ×3 (10:15→17:48)
[2025-01-17] MEDS: SOD HYPOCHLORITE 1/4 STRENGTH 473 ML 1 APPLIC TOPICAL ×2 (10:15→20:09)
--- NOTE | 2025-01-17 12:00 | P.PNIM_ITS ---
Progress Note: A&P Assessment and Plan (1) Decubitus ulcers: Code(s): L89.90 - Pressure ulcer of unspecified site, unspecified stage Status: Acute Assessment and Plan: * chronic decubitus ulcer followed by the [facility] * CT of the abdomen and pelvis was negative for osteomyelitis however did show exposed bone without any fluid collection, induration of underlying soft tissue * white blood cell count 13.3, C reactive protein 17.8 * patient was given a dose of Zosyn while in the ED * transition to cefepime, vancomycin, Flagyl * general surgery consulted and plans to take patient for I and D tomorrow at 1:30 p.m. * Wound nurse consulted and is suggesting 1/4th strength Dakin's gauze pad to wound bed with dressing changes twice a day 01/15 * Postop day 0 from I&D of decubitus ulcer * Continue antibiotics cefepime, vancomycin, Flagyl * White blood cell count down to 9.1 today, CRP 8.8 01/16 * Postop day 1 from I&D of decubitus ulcer * Transition to Augmentin and doxycycline * Wound bed continued to bleed through the night requiring Surgicel pressure dressing to be applied. Hemoglobin dropped to 5.8 and she received 2 units of blood through the night. General surgery notified. * Continue pain control * White blood cell count 11.9 today, CRP 6.8 01/17 * WBC 9.9, CRP 7.9 * Continue Augmentin and Doxycycline * Continue dressing changes with Dakins * Turn patient q2 hours (2) Right lower lobe consolidation: Code(s): J18.1 - Lobar pneumonia, unspecified organism Status: Acute Assessment and Plan: * right basilar consolidation noted on abdomen / pelvis CT * currently on 4 L nasal cannula which is her baseline 01/15 * No change to current treatment plan (3) Fecal impaction in rectum: Code(s): K56.41 - Fecal impaction Status: Acute Assessment and Plan: * CT of abdomen and pelvis showed fecal stasis distending the rectum with mural thickening and surrounding inflammatory changes * continue Dulcolax, sennaosides, and MiraLax daily 01/15 * No change to current treatment plan (4) Essential (primary) hypertension: Code(s): I10 - Essential (primary) hypertension Status: Acute Assessment and Plan: * blood pressures ranging 96/63 to 118/72 * continue metoprolol 01/15 * No change to current treatment plan (5) Chronic anemia: Code(s): D64.9 - Anemia, unspecified Status: Acute Assessment and Plan: * hemoglobin 8.2-- appears chronic likely due to her chronic kidney disease * will check iron, ferritin, vitamin B12, folic acid, reticulocyte count, thyroid-stimulating hormone 01/15 * Hemoglobin 7.1 * Reticulocyte count 0.03, iron was low at 30, ferritin 428, folate 10.3, vitamin B12 760 * Will give a dose of IV iron today * Start ferrous sulfate 01/16 * Patient continued to bleed from the wound overnight requiring Surgicel pressure dressing. General surgery was notified * Hemoglobin dropped to 5.8 requiring 2 units of blood the overnight. Post transfusion hemoglobin 8.6 * Continue ferrous sulfate 01/17 * Hgb 9.4 and stable (6) Chronic kidney disease, stage 3: Code(s): N18.30 - Chronic kidney disease, stage 3 unspecified Status: Acute Assessment and Plan: * creatinine 1.49 * baseline ranges 1.10-1.50 * currently at baseline * continue to monitor 01/15 * Creatinine 1.22 * Currently at baseline 01/16 * Creatinine 1.08 * No change to current treatment plan (7) Functional quadriplegia secondary to MS: Code(s): G35 - Multiple sclerosis; R53.2 - Functional quadriplegia Status: Acute Assessment and Plan: of note * Contractures bilateral lower extremity, bedbound (8) COPD (chronic obstructive pulmonary disease): Code(s): J44.9 - Chronic obstructive pulmonary disease, unspecified Status: Acute Assessment and Plan: * on chronic O2 of 4 L nasal cannula Time Spent With Patient Time with patient: 15 - 25 minutes Subjective Date/time seen: 01/17/25 12:00 Interval history: Interval summary: This is a 59-year-old female with a significant past medical history of chronic kidney disease stage 3, anorexia, PE, history of MRSA infection, history of ESBL in the urine, COPD, anemia, hyperlipidemia, dementia, functional quadriplegia secondary to multiple sclerosis, Chronic decubitus ulcer, depression, anxiety, hypertension, schizoaffective disorder, asthma, overactive bladder who presented to the hospital with concerns for wound infection. patient was seen by a certification and selection specialist at her nursing facility and they had concerns for infection. She was sent here for further evaluation. Workup in the hospital included an abdomen pelvis CT which was negative for osteomyelitis, showed right basilar consolidation, findings within the soft tissue of the right hemipelvis for which exposed bone is suspected, induration of the underlying soft tissue, no rim enhancing fluid collection was seen. Initial labs showed a white blood cell count of 13.3, hemoglobin 8.2, platelet count 409, INR 1.5, creatinine 1.49, EGFR 36, alkaline phosphate 211, C reactive protein 17.8. Blood cultures were obtained and pending. Patient was given 500 mL normal saline and Zosyn while in the ED. She was transition to cefepime, vancomycin, Flagyl. General surgery was consulted. 01/15/2025: Patient taken to the OR for excisional debridement of right ischial decubitus ulcer including skin, subcutaneous fat, muscle, tendon, and bone measuring 5 cm x 5 cm. Subjective: Patient denies any new complaints today. The bleeding from her wound has stopped after General surgery put in a few stitches. Hgb stable today. Review of Systems Review of Systems: 12 systems were reviewed and are negativ e except for as per HPI. All systems reviewed & are unremarkable except as noted in HPI and below Exam Narrative: General: In no acute distress Eyes: Nystagmus noted bilaterally, PERRLA, sclera clear Cardiac: Normal S1 and S2. RRR, No murmur, gallops or friction rubs, peripheral pulses intact. Respiratory: Lungs clear to auscultation, no adventitious lung sounds, currently on 4 L nasal cannula Gastrointestinal: soft, non-distended, non-tender, normoactive bowel sounds. : voiding without difficulty. Extremities: Contracted lower extremities Skin: Multiple stage III to stage IV pressure ulcers, dressing in place Neuro: Alert and oriented 2-3, cranial nerves intact, no neuro deficits. Objective Data Vital Signs Vital Signs: Vital Signs - 24 hr 01/16/25 13:32 01/16/25 15:04 01/16/25 17:32 Temperature 97.7 F 97.9 F 97.6 F Pulse Rate 75 77 73 Respiratory Rate 16 16 16 Blood Pressure 96/67 L 109/74 102/69 Pulse Oximetry 100 100 100 01/16/25 22:09 01/17/25 08:59 Temperature 97.7 F 97.6 F Pulse Rate 73 96 Respiratory Rate 18 16 Blood Pressure 142/80 H 105/75 Pulse Oximetry 99 100 Intake/Output Intake/Output: Intake & Output 01/14/25 01/15/25 01/16/25 01/17/25 23:59 23:59 23:59 23:59 Intake Total 4741 361 9549 50 Output Total 510 300 400 800 Balance 780 510 610 -750 Meds/Results Medications: Active Medications Generic Name Dose Route Start Last Admin Trade Name Freq PRN Reason Stop Dose Admin Acetaminophen 500 mg 01/13/25 22:26 01/16/25 16:34 Acetaminophen Elixir 325 Mg/10.15 Ml Udc BY MOUTH 500 mg Q6H PRN Administration fever or pain (1-6) Alteplase, Recombinant 2 mg 01/13/25 11:41 Alteplase 2 Mg Vial (Cathflo) IV PUSH ONCE PRN Line Occlusion Amoxicillin/Clavulanate Potassium 1 tablet 01/16/25 09:35 01/17/25 09:58 Amoxicillin/Clavulanate K 875-125 Mg Tab PO 01/29/25 21:01 1 tablet Q12HR MERLYN Administration Apixaban 2.5 mg 01/13/25 22:25 01/15/25 21:02 Apixaban 2.5 Mg Tablet PO Not Given Q12HR MERLYN Artificial Tears 1 drop 01/14/25 09:00 01/17/25 10:15 Artificial Tears Ophth Soln 15 Ml Bottle EACH EYE 1 drop TID MERLYN Administration Bisacodyl 10 mg 01/14/25 09:00 01/17/25 09:58 Bisacodyl 5 Mg Tablet Ec PO 10 mg DAILY MERLYN Administration Citalopram Hydrobromide 30 mg 01/13/25 22:30 01/16/25 22:00 Citalopram Hydrobromide 10 Mg Tablet FEED TUBE 30 mg HS MERLYN Administration Doxycycline Hyclate 100 mg 01/16/25 09:35 01/17/25 09:58 Doxycycline Hyclate 100 Mg Tablet PO 01/29/25 21:01 100 mg Q12HR MERLYN Administration Famotidine 20 mg 01/14/25 09:00 01/17/25 09:58 Famotidine 20 Mg Tablet FEED TUBE 20 mg BID MERLYN Administration Fentanyl Citrate 25 mcg 01/15/25 12:41 01/15/25 15:04 Fentanyl Citrate Inj (*Crx) 100 Mcg/2 Ml Vial IV PUSH 25 mcg Q2M PRN Administration Pain Fentanyl Citrate 25 mcg 01/15/25 13:15 01/15/25 13:00 Fentanyl Citrate Inj (*Crx) 100 Mcg/2 Ml Vial IV PUSH 25 mcg Q2M PRN Administration Pain Rated 7-10 Ferrous Sulfate 325 mg 01/16/25 12:00 01/16/25 16:33 Ferrous Sulfate [address] PO 325 mg BID@1200,1700 [facility] Administration Heparin Sodium (Beef Lung) 50 units 01/14/25 09:00 01/17/25 09:58 Heparin Flush 50 Units/5 Ml Syringe IV PUSH 50 units QAM MERLYN Administration Heparin Sodium (Beef Lung) 50 units 01/13/25 11:45 Heparin Flush 50 Units/5 Ml Syringe IV PUSH PRN PRN after intermittent infusion Heparin Sodium (Beef Lung) 50 units 01/13/25 11:45 Heparin Flush 50 Units/5 Ml Syringe IV PUSH PRN PRN after blood draws Heparin Sodium (Porcine) 500 units 01/13/25 11:45 Heparin Sodium Lock Flush 500 Units/5 Ml Syringe IV PUSH PRN PRN see comments below Ipratropium [place] 0.5 mg 01/13/25 22:21 Ipratropium Br 0.02% Inh Soln 0.5 Mg/2.5 Ml Vial INHALATION Q6H PRN shortness of breath or wheezing Metoprolol Tartrate 50 mg 01/13/25 22:25 01/16/25 16:32 Metoprolol Tartrate 50 Mg Tab FEED TUBE Not Given Q8HR [facility] Ondansetron HCl 4 mg 01/13/25 22:21 01/17/25 05:27 Ondansetron Hcl Odt 4 Mg Tablet PO 4 mg QID PRN Administration Nausea And Vomiting Ondansetron HCl 4 mg 01/15/25 12:41 01/15/25 12:52 Ondansetron Inj 4 Mg/2 Ml Vial IV PUSH 4 mg ONCE PRN Administration Nausea Oxycodone HCl 5 mg 01/13/25 22:25 01/17/25 06:06 Oxycodone Hcl (*Crx) 5 Mg Tab Ir FEED TUBE 5 mg Q8H PRN Administration Pain Rated 7-10 Polyethylene Glycol 17 gm 01/14/25 09:00 01/17/25 09:58 Polyethylene Glycol 3350 17 Gm Powd.Pack PO 17 gm QAM MERLYN Administration Pregabalin 75 mg 01/14/25 09:00 01/17/25 09:58 Pregabalin (*Crx) 75 Mg Capsule FEED TUBE 75 mg DAILY MERLYN Administration Senna 8.6 mg 01/13/25 22:21 Sennosides 8.6 Mg Tablet FEED TUBE DAILY PRN Constipation Sodium Bicarbonate 650 mg 01/14/25 09:00 01/17/25 09:59 Sodium Bicarbonate Tab 650 Mg Tablet PO 650 mg BID MERLYN Administration Sodium Chloride 10 ml 01/13/25 14:00 01/17/25 05:30 Central Line Flush IV PUSH 10 ml Q8HR MERLYN Administration Sodium Hypochlorite 1 applic 01/13/25 09:00 01/17/25 10:15 Sod Hypochlorite 1/4 Strength 473 Ml TOPICAL 1 applic Q12HR MERLYN Administration Thiamine HCl 300 mg 01/14/25 09:00 01/17/25 09:58 Thiamine Hcl 100 Mg Tablet FEED TUBE 300 mg QAM MERLYN Administration Trazodone HCl 50 mg 01/13/25 22:30 01/16/25 22:01 Trazodone Hcl 50 Mg Tablet FEED TUBE 50 mg HS MERLYN Administration Vitamin D 1,000 units 01/14/25 09:00 01/17/25 09:59 Cholecalciferol 1,000 Units Tablet FEED TUBE 1,000 units DAILY MERLYN Administration Radiology Results: ITS Impressions Abdomen/Pelvis CT 01/13/25 14:32 IMPRESSION: Right basilar consolidation. Findings within the soft tissues of the right hemipelvis for which exposed bone is suspected. No rim-enhancing fluid collection is appreciated in this location. Induration of the underlying soft tissues are noted. Labs Labs: Laboratory Results - last 24 hr 01/17/25 01/17/25 05:04 07:03 WBC 9.9 RBC 3.64 L Hgb 9.4 L Hct 31.8 L MCV 87.4 MCH 25.8 L MCHC 29.6 L RDW 17.1 H Plt Count TNP MPV TNP Immature Gran % (Auto) 0.4 Neut % (Auto) 75.0 H Lymph % (Auto) 16.7 L [place] % (Auto) 5.1 Eos % (Auto) 2.5 Baso % (Auto) 0.3 Lymph # (Auto) 1.65 [place] # (Auto) 0.5 Eos # (Auto) 0.3 Baso # (Auto) 0.0 Abs Immat Gran (auto) 0.04 H Absolute Neuts (auto) 7.4 H Absolute Nucleated RBC 0.000 Band Neutrophils % Not Reportable Nucleated RBC % 0.0 Platelet Estimate Adequate % Immature Plt Fraction 3.0 Anisocytosis 1+ Schistocytes None seen Sodium 142 Potassium 3.7 Chloride 109 H Carbon Dioxide 23 Anion Gap 10 BUN 20 H Creatinine 1.08 H Estim Creat Clear Calc 40 Estimated GFR 52 L Glucose 116 H Calcium 8.6 Magnesium 2.0 Total Bilirubin 0.6 AST 12 L ALT 9 Alkaline Phosphatase 171 H C-Reactive Protein 7.9 H Total Protein 7.0 Albumin 3.1 L Quality VTE Prophylaxis VTE prophylaxis: pharmacologic ordered (on apixaban)
[2025-01-17 12:23] VITALS: BP 104/76; PULSE 95; RESP 18; TEMP 36.5; O2SAT 98
[2025-01-17] MEDS: FERROUS SULFATE 325 MG TABLET DR PO ×2 (13:12→17:47)
[2025-01-17 16:53] VITALS: BP 128/83; PULSE 96; RESP 16; TEMP 36.5; O2SAT 100
[2025-01-17 20:00] VITALS: PULSE 96; RESP 16; O2SAT 100
[2025-01-17] MEDS: traZODone HCL 50 MG TABLET FEED TUBE (20:07)
[2025-01-17] MEDS: CITALOPRAM HYDROBROMIDE 10 MG TABLET 30 MG FEED TUBE (20:07)
[2025-01-18] MEDS: CENTRAL LINE FLUSH 10 ML IV PUSH (04:37)
[2025-01-18] MEDS: ONDANSETRON INJ 4 MG/2 ML VIAL IV PUSH (04:53)
[2025-01-18 05:14] LABS: Basophils Absolute Auto 0.1 K/mm3 (0.0-0.1); Basophils Percent Auto 0.5 % (0.2-1.2); Eosinophils Absolute Auto 0.3 K/mm3 (0-0.3); Eosinophils Percent Auto 2.6 % (0-4.4); Hematocrit 27.2 % (37.0-47.0); Hemoglobin 8.3 g/dL (12.0-15.0); Immature Granulocyte Absolute 0.05 K/mm3 (0.00-0.031); Immature Granulocyte Percent A 0.5 % (0-0.5); Lymphocytes Absolute Auto 2.65 K/mm3 (0.9-3.2); Lymphocytes Percent Auto 24.7 % (18.3-44.2); Mean Corpuscular HGB Conc 30.5 g/dl (32-36); Mean Corpuscular Hemoglobin 25.9 pg (26-34); Mean Platelet Volume 10.8 fl (7.4-10.4); Monocytes Absolute Auto 0.6 K/mm3 (0.1-0.6); Monocytes Percent Auto 5.8 % (2.6-8.5); Neutrophils Absolute Auto 7.1 K/mm3 (1.3-6.7); Neutrophils Percent Auto 65.9 % (45.5-73.1); Platelet Count Result 402 k/mm3 (150-375); Red Cell Distribution Width 17.4 % (11.5-14.5); White Blood Count 10.8 K/mm3 (4.5-10.0)
[2025-01-18 05:21] LABS: Alanine Aminotransferase 8 U/L (6-35); Alkaline Phosphatase 149 U/L (38-126); Anion Gap 6 mmol/L (4-12); Aspartate Amino Transferase 19 U/L (14-36); Bilirubin,Total 0.6 mg/dL (0.2-1.3); Blood Urea Nitrogen 22 mg/dL (7-17); Calcium 8.7 mg/dL (8.4-10.2); Carbon Dioxide 26 mmol/L (22-30); Chloride 110 mmol/L (98-107); Estimated CRCL calculation 40 ml/min; Estimated Glomerular Filt Rate 52; Glucose 87 mg/dL (65-110); Potassium 3.8 mmol/L (3.4-5.0); Sodium 142 mmol/L (137-145)
[2025-01-18 08:00] VITALS: BP 119/80; PULSE 97; RESP 18; TEMP 36.4; O2SAT 99
[2025-01-18] MEDS: ARTIFICIAL TEARS OPHTH SOLN 15 ML BOTTLE 1 DROP EACH EYE (08:18)
[2025-01-18] MEDS: AMOXICILLIN/CLAVULANATE K 875-125 MG TAB 1 TABLET PO (08:18)
[2025-01-18] MEDS: DOXYCYCLINE HYCLATE 100 MG TABLET PO (08:18)
[2025-01-18] MEDS: CHOLECALCIFEROL 1,000 UNITS TABLET 1000 UNITS FEED TUBE (08:18)
[2025-01-18] MEDS: polyethylene glycoL 3350 17 GM POWD.PACK PO (08:19)
[2025-01-18] MEDS: PREGABALIN (*CRX) 75 MG CAPSULE FEED TUBE (08:19)
[2025-01-18] MEDS: SODIUM BICARBONATE TAB 650 MG TABLET PO (08:19)
[2025-01-18] MEDS: FAMOTIDINE 20 MG TABLET FEED TUBE (08:19)
[2025-01-18] MEDS: BISACODYL 5 MG TABLET EC 10 MG PO (08:19)
[2025-01-18] MEDS: THIAMINE HCL 100 MG TABLET 300 MG FEED TUBE (08:19)
[2025-01-18 08:24] VITALS: BP 119/81
[2025-01-18] MEDS: oxyCODONE HCL (*CRX) 5 MG TAB IR FEED TUBE (11:48)
[2025-01-18] MEDS: FERROUS SULFATE 325 MG TABLET DR PO (11:49)
--- NOTE | 2025-01-18 13:06 | P.DS_ITS ---
DS: Admitting Diagnosis Discharge Date 01/18/25 Admitting Diagnosis Decubitus ulcer Right lower lobe consolidation Fecal impaction in rectum Hypertension Chronic anemia Functional quadriplegia secondary to MS COPD Chronic kidney disease stage 3 DS: Discharge Diagnosis Discharge Diagnosis (1) Decubitus ulcers: Code(s): L89.90 - Pressure ulcer of unspecified site, unspecified stage Status: Acute (2) Right lower lobe consolidation: Code(s): J18.1 - Lobar pneumonia, unspecified organism Status: Acute (3) Fecal impaction in rectum: Code(s): K56.41 - Fecal impaction Status: Acute (4) Essential (primary) hypertension: Code(s): I10 - Essential (primary) hypertension Status: Acute (5) Chronic anemia: Code(s): D64.9 - Anemia, unspecified Status: Acute (6) Chronic kidney disease, stage 3: Code(s): N18.30 - Chronic kidney disease, stage 3 unspecified Status: Acute (7) Functional quadriplegia secondary to MS: Code(s): G35 - Multiple sclerosis; R53.2 - Functional quadriplegia Status: Acute (8) COPD (chronic obstructive pulmonary disease): Code(s): J44.9 - Chronic obstructive pulmonary disease, unspecified Status: Acute DS: Summary Hospital Course Reason for hospitalization: Decubitus ulcer Right lower lobe consolidation Fecal impaction in rectum Hypertension Chronic anemia Functional quadriplegia secondary to MS COPD Chronic kidney disease stage 3 Hospital Course: This is a 59-year-old female with a significant past medical history of chronic kidney disease stage 3, anorexia, PE, history of MRSA infection, history of ESBL in the urine, COPD, anemia, hyperlipidemia, dementia, functional quadriplegia secondary to multiple sclerosis, Chronic decubitus ulcer, depression, anxiety, hypertension, schizoaffective disorder, asthma, overactive bladder who presented to the hospital with concerns for wound infection. patient was seen by a wound care nurse at her nursing facility and they had concerns for infection. She was sent here for further evaluation. Workup in the hospital included an abdomen pelvis CT which was negative for osteomyelitis, showed right basilar consolidation, findings within the soft tissue of the right hemipelvis for which exposed bone is suspected, induration of the underlying soft tissue, no rim enhancing fluid collection was seen. Initial labs showed a white blood cell count of 13.3, hemoglobin 8.2, platelet count 409, INR 1.5, creatinine 1.49, EGFR 36, alkaline phosphate 211, C reactive protein 17.8. Blood cultures were obtained and pending. Patient was given 500 mL normal saline and Zosyn while in the ED. She was transition to cefepime, vancomycin, Flagyl. General surgery was consulted. 01/15/2025: Patient taken to the OR for excisional debridement of right ischial decubitus ulcer including skin, subcutaneous fat, muscle, tendon, and bone measuring 5 cm x 5 cm. Patient had some postoperative bleeding requiring 2 units of PRBC to be given on 01/15/2025. General surgery team came by as an put a few stitches in an area that was bleeding in the wound. Her hemoglobin has been stable ever since. She was transition to Augmentin and doxycycline for the next 2 weeks. She will need to be followed by wound clinic on an outpatient basis. Continue Dakin soaked dressing changes every day per General surgery recommendation. Final diagnosis: Right ischial decubitus ulcer, osteomyelitis, sharp excisional debridement of right ischial decubitus ulcer including skin, subcutaneous fat, muscle, tendon, bone Status at Discharge Cognitive/behavioral status at discharge: Alert oriented x3 Functional status at discharge: bed bound Overall status at discharge: patient is progressing back to baseline Time Spent with Patient Time attestation: Total time spent providing and/or coordinating discharge services: Time spent: Greater than 30 minutes Exam Narrative: General: In no acute distress Eyes: Nystagmus noted bilaterally, PERRLA, sclera clear Cardiac: Normal S1 and S2. RRR, No murmur, gallops or friction rubs, peripheral pulses intact. Respiratory: Lungs clear to auscultation, no adventitious lung sounds, currently on 4 L nasal cannula Gastrointestinal: soft, non-distended, non-tender, normoactive bowel sounds. : voiding without difficulty. Extremities: Contracted lower extremities Skin: Multiple stage III to stage IV pressure ulcers, dressing in place Neuro: Alert and oriented 2-3, cranial nerves intact, no neuro deficits. DS: Data Data Completed and Pending Completed studies during hospitalization: Abdomen/pelvis CT Pending studies at discharge: Blood cultures Labs on day of discharge: Labs from last 24 hours 01/18/25 04:57 WBC 10.8 H RBC 3.20 L Hgb 8.3 L Hct 27.2 L MCV 85.0 MCH 25.9 L MCHC 30.5 L RDW 17.4 H Plt Count 402 H MPV 10.8 H Immature Gran % (Auto) 0.5 Neut % (Auto) 65.9 Lymph % (Auto) 24.7 [place] % (Auto) 5.8 Eos % (Auto) 2.6 Baso % (Auto) 0.5 Lymph # (Auto) 2.65 [place] # (Auto) 0.6 Eos # (Auto) 0.3 Baso # (Auto) 0.1 Abs Immat Gran (auto) 0.05 H Absolute Neuts (auto) 7.1 H Absolute Nucleated RBC 0.000 Nucleated RBC % 0.0 Sodium 142 Potassium 3.8 Chloride 110 H Carbon Dioxide 26 Anion Gap 6 BUN 22 H Creatinine 1.09 H Estim Creat Clear Calc 40 Estimated GFR 52 L Glucose 87 Calcium 8.7 Total Bilirubin 0.6 AST 19 ALT 8 Alkaline Phosphatase 149 H C-Reactive Protein 5.0 H Total Protein 7.0 Albumin 3.0 L Preliminary micro results at discharge 01/13/25 12:08 Blood Culture - Preliminary Blood 01/13/25 13:27 Blood Culture - Preliminary Blood Procedures/Treatments: Sharp excisional decubitus of right ischial decubitus ulcer including skin, subcutaneous fat, muscle, tendon, and bone measuring 5 cm x 5 cm Discharge Plan Discharge Attending physician on discharge: Tammi Bailey Consulting providers: Darin Penny Discharging Clinician: Krysta Justice Anticipated Discharge Date/Time: 01/18/25 12:57 Patient Disposition: NH Long-Term/Asst Living Activity: as tolerated Diet: as tolerated and regular Wound Care Instructions: other - see discharge instructions Discharge Instructions: * Six continue daily dressing changes with Dakin's soaked gauze, ABD pads and tape * Avoid continued pressure of wound with frequent position changes * Follow-up with wound clinic in a couple weeks * Finish all of your antibiotics as prescribed Patient Instructions: Antibiotic Form, Apixaban (By mouth), Blood Thinners (DC), Chronic Wounds (DC) Patient Language: Slovak Stand Alone Forms: General Discharge Information, Care Home Discharge Follow-up/Referrals: [facility],MD Luis Eduardo [Primary Care Provider] - 2 Weeks Discharge Medications: New Dakin's Solution 0.125 % Solution 1 applic topical Q12HR Qty: 1000 0RF doxycycline hyclate 100 mg Tablet 100 mg PO Q12HR Qty: 28 0RF amoxicillin-pot clavulanate 875-125 mg tablet 1 tablet PO Q12H Qty: 28 0RF Continued famotidine 20 mg tablet 20 mg feeding tube BID trazodone 50 mg tablet 50 mg feeding tube HS ondansetron 4 mg tablet,disintegrating 4 mg PO QID PRN (Reason: Nausea And Vomiting) cholecalciferol (vitamin D3) 1,000 units G-tube DAILY sennosides [senna] 8.6 mg Tablet 8.6 mg feeding tube DAILY PRN (Reason: Constipation) sodium bicarbonate 650 mg Tablet 650 mg PO BID Qty: 60 0RF thiamine HCl (vitamin B1) [Vitamin B-1] 100 mg Tablet 300 mg feeding tube QAM Qty: 90 0RF Artificial Tears([id number]) Drops 1 drp EACH EYE TID pregabalin 75 mg capsule 75 mg feeding tube DAILY citalopram 20 mg tablet 30 mg feeding tube HS metoprolol tartrate 50 mg tablet 50 mg feeding tube Q8H polyethylene glycol 3350 [Miralax] 17 gram Powder In Packet 17 g PO QAM Qty: 30 0RF acetaminophen 160 mg/5 mL elixir 500 mg PO Q6H PRN (Reason: fever or pain) bisacodyl 5 mg tablet,delayed release (DR/EC) 10 mg PO DAILY ipratropium bromide 0.02 % solution 1.25 ml inhalation DAILY PRN (Reason: shortness of breath or wheezing) Maged 7-7-1.5 gram powder in packet 1 ea PO BID Eliquis 2.5 mg tablet 2.5 mg PO Q12H oxycodone 5 mg capsule 5 mg feeding tube Q8H Qty: 10 0RF Date of admission: 01/13/25 15:28 Primary Care Provider: Jesus*Luis Eduardo Shaw Admitting Provider: Tammi Bailey Attending physician on admission: Krysta Justice Condition: Improved Quality VTE Prophylaxis VTE prophylaxis: pharmacologic ordered (on apixaban) Hospitalist MIPS Heart Failure (Exclusion) Patient has history of Heart Transplant or Left Ventricular Assistive Device?: No IF YES, STOP HERE Heart Failure (Qualifier) Patient has current or prior documentation of LVEF less than or equal to 40%, or mod/servere depressed LVSF?: No IF NO, STOP HERE
[2025-01-18] MEDS: HEPARIN SODIUM LOCK FLUSH 500 UNITS/5 ML SYRINGE IV PUSH (14:22)
[2025-01-18 15:27] VITALS: BP 126/88; PULSE 90; RESP 12; TEMP 36.4; O2SAT 100
== END 2025-01-18 15:35 | DRG 579 ==
LOC: ANHED 12:02 → ANH2MED 15:54
PROVIDERS: Emergency Medicine; Physician Assistant; Surgery; Admitting Provider Internal Medicine; Emergency Provider Emergency Medicine; PCP Internal Medicine; Visit Provider Nurse Practitioner Acute Care
PROC: 0QB20ZZ Excision of Right Pelvic Bone, Open Approach (ICD-10-PCS; principal; 2025-01-15 13:30)
DX: L89.314 Pressure ulcer of right buttock, stage 4 (principal); J18.1 Lobar pneumonia, unspecified organism; R53.2 Functional quadriplegia; J96.11 Chronic respiratory failure with hypoxia; M86.9 Osteomyelitis, unspecified; L76.22 Postprocedural hemorrhage of skin and subcutaneous tissue following other procedure; L89.154 Pressure ulcer of sacral region, stage 4; L89.323 Pressure ulcer of left buttock, stage 3; L89.153 Pressure ulcer of sacral region, stage 3; L89.110 Pressure ulcer of right upper back, unstageable; N18.30 Chronic kidney disease, stage 3 unspecified; G35 Multiple sclerosis; I12.9 Hypertensive chronic kidney disease with stage 1 through stage 4 chronic kidney disease, or unspecified chronic kidney disease; J44.9 Chronic obstructive pulmonary disease, unspecified; N32.81 Overactive bladder; D50.9 Iron deficiency anemia, unspecified; E78.5 Hyperlipidemia, unspecified; K56.41 Fecal impaction; F03.90 Unspecified dementia, unspecified severity, without behavioral disturbance, psychotic disturbance, mood disturbance, and anxiety; F32.A Depression, unspecified; F25.9 Schizoaffective disorder, unspecified; F41.1 Generalized anxiety disorder; Z99.81 Dependence on supplemental oxygen; Z79.01 Long term (current) use of anticoagulants; Z86.711 Personal history of pulmonary embolism; Z85.528 Personal history of other malignant neoplasm of kidney; Z87.442 Personal history of urinary calculi; Z74.01 Bed confinement status
CPT/HCPCS: 36415; 36430; 74177; 80053; 82565; 82607; 82728; 82746; 83540; 83550; 83605; 83735; 84443; 85014; 85018; 85025; 85046; 85055; 85610; 85730; 86140; 86850; 86900; 86901; 86923; 87040; 96365; 96375; 99285; A9270; J0692; J1642; J1756; J1836; J2003; J2371; J2405; J2543; J2704; J3010; J3370; J7040; J7050; J7120; P9016; Q9967

== ENCOUNTER 2025-05-28 08:47 | Inpatient (IN) | payer MEDICARE, MEDICAID, SELFPAY ==
[2025-05-28] VITALS (19 sets, daily range): BP systolic 82–138; BP diastolic 56–94; PULSE 96–127; RESP 14–24; TEMP 36.1–37.6; O2SAT 96–99; BMI 19.1
--- NOTE | ~2025-05-28 | XR_ITS ---
XR sacrum coccyx min 2V 05/29/2025 10:35 Indication: Wound. Procedure: 4 views sacrum/coccyx Comparison: CT dated 01/13/2025 Findings: There is deformity of the right hip with remodeling of the acetabulum and femoral head. There is also dislocation and remodeling of the left hip. There is sclerosis of the pubic symphysis. Evaluation of the sacrum/coccyx limited due to osteopenia and patient positioning/immobility. No acute fracture is identified. Sacral foramen are grossly symmetric. Impression: 1: No acute bone or joint abnormality identified. 2: Bilateral dislocation and remodeling of the hips, likely chronic. 3: If there is concern for osteomyelitis, further evaluation with MRI of the pelvis with contrast recommended. Reviewed, dictated and finalized at location O. Impression: 1: No acute bone or joint abnormality identified. 2: Bilateral dislocation and remodeling of the hips, likely chronic. 3: If there is concern for osteomyelitis, further evaluation with MRI of the p amanda with contrast recommended.
--- NOTE | ~2025-05-28 | CT_ITS ---
EXAMINATION: CT diagnostic chest wo tanika, 05/28/2025 10:55 CDT HISTORY: abnormal findings on chest x-ray COMPARISON: Comparison 07/20/2024. TECHNIQUE: CT scan of the chest was performed without IV contrast. One or more of the following dose reduction techniques were used: automated exposure control, adjustment of the mA and/or kV according to patient size, use of iterative reconstruction technique. FINDINGS: No significant coronary calcification is present ([id number]) LUNGS: No tracheomalacia. No bronchiectasis. Moderate basilar infiltrates. Trace bilateral pleural effusions. Minimal emphysematous changes. No significant pulmonary fibrotic changes. HEART AND PERICARDIUM: Within normal limits. AORTA: Normal caliber aorta. ADENOPATHY/MEDIASTINUM: None. LIMITED VIEWS OF THE ABDOMEN: Within normal limits. OSSEOUS STRUCTURES: No sclerotic or lytic lesions. No acute rib fractures are identified. OVERLYING SOFT TISSUES: Left MediPort. THYROID: The thyroid is unremarkable. IMPRESSION: Bilateral pneumonia. Follow-up recommended to assess resolution. Reviewed, dictated and finalized at location A.
--- NOTE | ~2025-05-28 | XR_ITS ---
XR thoracic spine 2V 05/29/2025 10:35 Indication: Pelvic wound Procedure: 4 views thoracic spine Comparison: No prior studies for comparison. Findings: There are multiple mild compression deformities of the thoracic spine most prominent at T8 and T9, age indeterminate. There is scoliosis. Lateral view is limited due to scoliosis. Evaluation for additional fractures is extremely limited. There is moderate multilevel spondylosis. There is bilateral airspace disease which may represent edema or pneumonia. No significant effusion. Portacatheter tip in the SVC. Impression: 1: Limited study due to scoliosis and osteopenia. Mild compression deformities of T8 and T9 with possible additional compression fractures which are difficult to evaluate due to patient rotation, demineralization and immobility. 2: Diffuse bilateral airspace disease which may represent edema or pneumonia. Reviewed, dictated and finalized at location O. Impression: 1: Limited study due to scoliosis and osteopenia. Mild compression deformities of T8 and T9 with possible additional compression fractures which are difficult to evaluate due to patient rotation, demineralization and immobility. 2: Diffuse bilateral airspace disease which may represent edema or pneumonia.
--- NOTE | ~2025-05-28 | XR_ITS ---
EXAMINATION: XR chest 1V portable 05/28/2025 09:34 INDICATION: Altered mental status TECHNIQUE:A single AP semiupright frontal image of the chest was obtained. COMPARISON: Chest 01/17/2024 FINDINGS: Moderate elevation of the right hemidiaphragm, unchanged. No pneumothorax. No pleural effusion. No free air under the diaphragm. Left-sided Mediport catheter with its tip projecting over the cavoatrial junction. Small to moderate-sized patchy opacities scattered throughout both lungs. Right hilum is prominent. Differential includes overlapping vasculature, adenopathy, consolidation or mass. IMPRESSION: 1: Right hilum is prominent. The finding is new. Differential includes overlapping vasculature, adenopathy, consolidation or mass. A chest CT is recommended. 2. Small to moderate-sized patchy opacities scattered throughout both lungs. Differential includes but is not limited to edema or pneumonia. Follow-up is recommended. Attention follow-up chest CT imaging. Reviewed, dictated and finalized at location Q. IMPRESSION: 1: Right hilum is prominent. The finding is new. Differential includes overlap ping vasculature, adenopathy, consolidation or mass. A chest CT is recommended. 2. Small to moderate-sized patchy opacities scattered throughout both lungs. D ifferential includes but is not limited to edema or pneumonia. Follow-up is rec ommended. Attention follow-up chest CT imaging.
--- NOTE | ~2025-05-28 | CT_ITS ---
EXAMINATION: CT brain wo tanika, 05/28/2025 9:21 CDT HISTORY: AMS COMPARISON: No comparisons available. Technique: Axial images obtained of the brain without contrast. One or more of the following dose reduction techniques were used: automated exposure control, adjustment of the mA and/or kV according to patient size, use of iterative reconstruction technique. Findings: No acute infarct or parenchymal hemorrhage. No abnormal mass or mass effect. No midline shift. No extra-axial fluid collections. No hydrocephalus. Mastoid air cells unremarkable. Sinuses and orbits unremarkable. No acute fracture. No significant facial or scalp soft tissue swelling evident. No radiopaque foreign body is seen. Impression: 1.No acute intracranial abnormality. Reviewed, dictated and finalized at location A. Impression: 1.No acute intracranial abnormality.
--- NOTE | 2025-05-28 08:52 | ED.GENADULT ---
HPI - General Adult General Chief complaint: Recheck/Abnormal Lab/Rx Stated complaint: low BP, low Pulse Ox History of Present Illness HPI narrative: 59-year-old female presented to the emergency department from local longterm for evaluation for episode of hypoxia and hypotension. Patient does have history of schizoaffective disorder over, multiple scleroses, quadriplegia, MRSA, chronic kidney disease, COPD. patient is at her normal baseline per longterm which is A&O x1. Related Data Home Medications ?Medication ?Instructions ?Recorded ?Confirmed ?Last Taken ?Type cholecalciferol (vitamin D3) 1,000 units G-tube DAILY 12/17/22 05/28/25 05/27/25 10:00 History famotidine 20 mg tablet 20 mg feeding tube BID 12/17/22 05/28/25 05/27/25 17:00 History ondansetron 4 mg disintegrating 4 mg PO QID PRN Nausea And Vomiting 12/17/22 05/28/25 Unknown History tablet trazodone 50 mg tablet 50 mg feeding tube HS 12/17/22 05/28/25 05/26/25 20:40 History sennosides 8.6 mg tablet (senna) 8.6 mg feeding tube DAILY PRN 07/27/23 05/28/25 Unknown History Constipation citalopram 20 mg tablet 30 mg feeding tube HS 06/20/24 05/28/25 05/27/25 10:00 History dextran 70-hypromellose eye drops 1 drp EACH EYE TID 06/20/24 05/28/25 05/27/25 12:00 History (Artificial Tears (dextran 70-hypromellose) eye drops) metoprolol tartrate 50 mg tablet 50 mg feeding tube Q8H 06/20/24 05/28/25 05/27/25 17:20 History pregabalin 75 mg capsule 75 mg feeding tube DAILY 06/20/24 05/28/25 05/27/25 10:00 History acetaminophen 160 mg/5 mL oral 500 mg PO Q6H PRN fever or pain 01/13/25 05/28/25 05/28/25 02:30 History elixir arginine 7 gram-glutamine 7 1 ea PO BID 01/13/25 05/28/25 05/27/25 17:20 History gram-calcium HMB 1.5 gram oral powder pack (Maged) bisacodyl 5 mg tablet,delayed 10 mg PO DAILY 01/13/25 05/28/25 05/27/25 10:00 History release ipratropium bromide 0.02 % 1.25 ml inhalation DAILY PRN 01/13/25 05/28/25 Unknown History solution for inhalation shortness of breath or wheezing dabigatran etexilate 150 mg capsule 150 mg PO BID 05/28/25 05/28/25 05/27/25 10:00 History furosemide 20 mg tablet 20 mg PO DAILY 05/28/25 05/28/25 05/27/25 10:00 History quetiapine 25 mg tablet 25 mg PO DAILY 05/28/25 05/28/25 05/27/25 10:20 History sodium bicarbonate 650 mg tablet 325 mg PO BID 05/28/25 05/28/25 05/27/25 10:00 History Allergies Allergy/AdvReac Type Severity Reaction Status Date / Time No Known Allergies Allergy Verified 01/13/25 11:11 Review of Systems Review of Systems: All systems reviewed & are unremarkable except as noted in HPI and below PMFSH Past Medical History Medical History Chronic kidney disease, stage 3 Anorexia Malnutrition Pulmonary embolism (2014) Xanthogranulomatous pyelonephritis MRSA infection Urinary tract infection due to extended-spectrum beta lactamase (ESBL) producing Escherichia coli Chronic respiratory failure with hypoxia, on home oxygen therapy Previously documented that the patient is oxygen dependent on 4 L nasal cannula however she denies and is on room air with good SpO2 as of 07/27/2023. 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 History of nephrostomy Family History Family History Mother Family history of multiple sclerosis Hypertension Father Patient's father is Social History Social History Social History: Patient is a ramos of the [facility]. Her guardian is Abe Burnham ([phone]). Code status: Full code. Smoking packs per day: 0.5 Smoking cigarettes per day: 10.0 Years smoked: 1 Smoking pack-years: 0.50 Smoking status: Never smoker Second hand tobacco smoke exposure: No Alcohol intake: never Substance use: never Do You Feel Safe in your Home?: Yes Lack of Transportation: No Lack of Food: Never True Current Housing: I Have Housing Concerned About Future Housing: No Difficulty Paying Gas/Electric Bills: No Difficulty Paying for Meds: No Currently Unemployed: No Education: Don't Know Difficulty w/ Childcare or Family Care: No Living arrangements: longterm Additional living arrangements comments: 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ion: other Additional occupation/education comments: Disabled Spiritual care concerns: No Agree to blood products: Yes Exam Narrative: APPEARANCE: Ill-appearing HEAD: normocephalic, atraumatic. EYES: PERRLA/EOMI, conjunctivae clear. NOSE: Normal no drainage EARS:TMS clear with good light reflex. THROAT: Pharynx clear, no exudate. NECK: Supple. No adenopathy, no masses. RESPIRATORY: Airway patent, respirations nonlabored. Clear to auscultation bilaterally, no rales, rhonchi, wheezing. CARDIOVASCULAR: Regular rate and rhythm without murmurs rubs or gallops. ABDOMINAL: Soft, nontender, nondistended, normal bowel sounds MUSCULOSKELETAL: Moves all extremities. Strength/ROM intact, No edema, No calf tenderness. NEURO: Alert. lower extremity contraction SKIN: multiple bed sores with clean intact dressing Course Vital Signs Vital signs: Vital Signs Temperature 97.6 F 05/28/25 08:46 Pulse Rate 111 H 05/28/25 08:46 Respiratory Rate 18 05/28/25 08:46 Blood Pressure 82/56 L 05/28/25 08:46 Pulse Oximetry 97 05/28/25 08:46 Oxygen Delivery Room Air 05/28/25 08:46 Temperature 98.9 F 05/28/25 16:40 Pulse Rate 116 H 05/28/25 16:40 Respiratory Rate 24 H 05/28/25 16:40 Blood Pressure 138/94 H 05/28/25 16:40 Pulse Oximetry 97 05/28/25 16:40 Oxygen Delivery Room Air 05/28/25 08:46 Medical Decision Making MDM Narrative Medical decision making narrative: 51-year-old female presents emergency department for evaluation for low blood pressure and hypoxia. Patient is currently afebrile but does have a leukocytosis of 17.8 and a hemoglobin of 5.4. Patient has no active rectal bleeding and does have previous history of anemia. Patient was treated with 2 units of packed red blood cells. Patient does have mild RADHA she was treated with 1 L of lactated Ringer's along with blood products. CT scan was concerning for pneumonia and patient was started on cefepime and vanc in emergency department. Patient did test positive for MRSA. Head CT was negative. Case was discussed with hospitalist and patient was accepted for pneumonia. Critical Care Procedure Note Authorized and Performed by: Dwain Alexis Total critical care time: Approximately 36 minutes Due to a high probability of clinically significant, life threatening deterioration, the patient required my highest level of preparedness to intervene emergently and I personally spent this critical care time directly and personally managing the patient. This critical care time included obtaining a history; examining the patient; pulse oximetry; ordering and review of studies; arranging urgent treatment with development of a management plan; evaluation of patient's response to treatment; frequent reassessment; and, discussions with other providers. This critical care time was performed to assess and manage the high probability of imminent, life-threatening deterioration that could result in multi-organ failure. It was exclusive of separately billable procedures and treating other patients and teaching time. Please see MDM section and the rest of the note for further information on patient assessment and treatment. Differential Diagnosis Differential Diagnosis: Pneumonia, UTI, COVID, RSV influenza, subdural hematoma, subarachnoid hemorrhage, chronic kidney disease, acute kidney injury, dehydration Vital Signs Vital Signs: Vital Signs Temperature 97.6 F 05/28/25 08:46 Pulse Rate 111 H 05/28/25 08:46 Respiratory Rate 18 05/28/25 08:46 Blood Pressure 82/56 L 05/28/25 08:46 Pulse Oximetry 97 05/28/25 08:46 Oxygen Delivery Room Air 05/28/25 08:46 Temperature 98.9 F 05/28/25 16:40 Pulse Rate 116 H 08/28/25 16:40 Respiratory Rate 24 H 05/28/25 16:40 Blood Pressure 138/94 H 05/28/25 16:40 Pulse Oximetry 97 05/28/25 16:40 Oxygen Delivery Room Air 05/28/25 08:46 Lab Data Lab results reviewed: Yes I reviewed the patient's lab results. 05/28/25 10:27 05/28/25 10:27 Labs: Lab Results 05/28/25 05/28/25 05/28/25 Range/Units 10:27 10:51 12:19 WBC 17.8 H (4.5-10.0) K/mm3 RBC 2.45 L (4.2-5.4) M/mm3 Hgb 5.4 L* (12.0-15.0) g/dL Hct 19.6 L* (37.0-47.0) % MCV 80.0 (80-100) fl MCH 22.0 L (26-34) pg MCHC 27.6 L (32-36) g/dl RDW 18.3 H (11.5-14.5) % Plt Count 462 H (150-375) k/mm3 MPV 10.9 H (7.4-10.4) fl Immature Gran % (Auto) 0.9 H (0-0.5) % Neut % (Auto) 87.9 H (45.5-73.1) % Lymph % (Auto) 7.9 L (18.3-44.2) % [place] % (Auto) 2.1 L (2.6-8.5) % Eos % (Auto) 1.1 (0-4.4) % Baso % (Auto) 0.1 L (0.2-1.2) % Lymph # (Auto) 1.41 (0.9-3.2) K/mm3 [place] # (Auto) 0.4 (0.1-0.6) K/mm3 Eos # (Auto) 0.2 (0-0.3) K/mm3 Baso # (Auto) 0.0 (0.0-0.1) K/mm3 Abs Immat Gran (auto) 0.16 H (0.00-0.031) K/mm3 Absolute Neuts (auto) 15.7 H (1.3-6.7) K/mm3 Absolute Nucleated RBC 0.000 (0.0-0.012) K/mm3 Band Neutrophils % Not Reportable Nucleated RBC % 0.0 (0.0-0.2) % Platelet Estimate Slightly increased (Adequate) Hypochromasia 1+ Anisocytosis 1+ Target Cells 1+ Schistocytes None seen PT 39.3 H (11.1-14.7) Seconds INR 4.3 APTT 130.0 H (22.3-36.8) Seconds Sodium 138 (137-145) mmol/L Potassium 3.8 (3.4-5.0) mmol/L Chloride 105 (98-107) mmol/L Carbon Dioxide 27 (22-30) mmol/L Anion Gap 6 (4-12) mmol/L BUN 86 H D (7-17) mg/dL Creatinine 2.66 H (0.7-1.0) mg/dL Estim Creat Clear Calc 18 ml/min Estimated GFR 18 L (59 - ) Glucose 113 H (65-110) mg/dL Lactic Acid 1.5 (0.7-2.0) mmol/L Calcium 7.5 L (8.4-10.2) mg/dL Total Bilirubin 0.4 (0.2-1.3) mg/dL AST 18 (14-36) U/L ALT 10 (6-35) U/L Alkaline Phosphatase 163 H (38-126) U/L Total Protein 6.7 (6.3-8.2) g/dL Albumin 2.4 L (3.5-5.1) g/dL Urine Color Pending Urine Appearance Pending Urine pH Pending Ur Specific [place] Pending Urine Protein Pending Urine Glucose (UA) Pending Urine Ketones Pending Ur Blood (Man) Pending Urine Nitrate Pending Urine Bilirubin Pending Urine Urobilinogen Pending Leukocyte Esterase Rfl Pending Nasal MRSA (PCR) Detected A* (NOT DETECTE) Blood Type O Positive Antibody Screen Negative Crossmatch See Detail Imaging Data Radiologist's impression: Impressions Chest X-Ray 05/28/25 09:36 IMPRESSION: 1: Right hilum is prominent. The finding is new. Differential includes overlapping vasculature, adenopathy, consolidation or mass. A chest CT is recommended. 2. Small to moderate-sized patchy opacities scattered throughout both lungs. Differential includes but is not limited to edema or pneumonia. Follow-up is recommended. Attention follow-up chest CT imaging. Head CT 05/28/25 09:36 Impression: 1.No acute intracranial abnormality. Chest CT 05/28/25 11:13 IMPRESSION: Bilateral pneumonia. Follow-up recommended to assess resolution. Critical Care Time Critical Care Time Critical Care Time: Yes Total Critical Care Time: 36 Discharge Plan Discharge Clinical Impression: Anemia, Pneumonia, Hypoxia, Acute hypotension Patient Disposition: Still a Patient Condition: Serious
--- NOTE | 2025-05-28 08:58 | ECG_ITS ---
Test Date: 2025-05-28 08:58:39 Measurements Intervals [place] Rate: 109 P: 22 MO: 156 QRS: 9 QRSD: 88 T: 14 QT: 353 QTc: 476 Interpretive Statements SINUS TACHYCARDIA CONSIDER ANTERIOR INFARCT, AGE INDETERMINATE CONSIDER INFERIOR INFARCT, AGE INDETERMINATE BORDERLINE ST-T WAVE ABNORMALITY- HIGH LATERAL LEADS BASELINE ARTIFACT- I, II, III, AVR, AVL, AVF, V1-V6 ABNORMAL ECG Compared to ECG 12/05/2024 14:44:30 NO SIGNIFICANT CHANGE Electronically Signed On 05-28-2025 14:27:23 CDT by Murali Osei D.O.
--- OUTSIDE RECORDS SUMMARY | 2025-05-28 08:59 | XMS_ITS | Clinical Summary ---
Author Organization [facility] Address [address] [place] [address] Care Team Providers Care Multi Site Leasing Consultant Name Role Phone Luis Eduardo Quiroga MD Primary Care Provider + [phone] Source Comments [facility],non-owned Affiliates and Associated Physician Practices is amultiple site organization consisting of ambulatory clinics and hospital sitesin [place], [place], [place] and [place]. This disclosure is being madepursuant to the Care Everywhere program and may not contain all information available regarding this patient. Last updated 18.[facility] Flashnotes Allergies No known active allergies Medications * Be aware that medications may not be up to date on this document. Alwaysverify current medications with the patient. metoprolol tartrate IR (Lopressor) 50 MG tablet 1 (one) tablet by Per G Tube route 3 times daily Active pregabalin (Lyrica) 75 MG capsule 1 (one) capsule by Per G Tube route once daily Active traZODone (Desyrel) 50 MG tablet 1 (one) tablet by Per G Tube route at bedtime Active vitamin D3 (Cholecalciferol ) 25 MCG (1000 UNITS) tablet 1 (one) tablet by Per G Tube route once daily Active bisacodyl EC 5 MG tablet Take 2 (two) tablets by mouth once daily 4 Active dextran 70-hypromellose (Artificial Tears) 0.1-0.3 % SOLN Instill 1 drop into both eyes 3 times daily Active ipratropium (Atrovent) 0.02 % nebulizer solution Inhale 0.2 mg by mouth once daily as needed for Shortness of Breath 4 Active ondansetron, disintegrating, (Zofran ODT) 4 MG tablet Take 1 (one) tablet by mouth every 6 hours as needed for Nausea/Vomitin g 4 Active sodium bicarbonate 325 MG tablet 2 (two) tablets by Enteral route 2 times daily Active thiamine (Vitamin B-1) 100 MG tablet 3 (three) tablets by Enteral route every morning Active apixaban (Eliquis) 2.5 MG tablet 1 (one) tablet by Per G Tube route 2 times daily 4 Active citalopram (CeleXA) 10 MG tablet 3 (three) tablets by Per G Tube route once daily Active polyethylene glycol 3350 (Miralax) 17 g packet 17 (seventeen) g by Per G Tube route once daily Active acetaminophen (Tylenol) 160 MG/5ML solution 20.3125 mL by Per G Tube route every 4 hours as needed 5 Active amLODIPine (Norvasc) 10 MG tablet 1 (one) tablet by Enteral Tube route once daily 5 Active ferrous sulfate 325 (65 FE) MG tablet 1 (one) tablet by Enteral Tube route every 2 days 5 Active folic acid (Folvite) 1 MG tablet 1 (one) tablet by Enteral Tube route once daily 5 Active lansoprazole, disintegrating, (Prevacid Solutab) 30 MG tablet 1 (one) tablet by Enteral Tube route daily before breakfast 5 Active melatonin 3 MG tablet 1 (one) tablet by Per G Tube route nightly as needed for Insomnia 5 Active senna-docusate (Senokot-S) 8.6-50 MG tablet 1 (one) tablet by Per G Tube route once daily 5 Active HYDROcodone-acet aminophen (Glen) 5-325 MG tabletIndication s:Closed fracture of distal end of right femur with routine healing, unspecified fracture morphology, subsequent encounter 1 (one) tablet by Per G Tube route every 6 hours as needed for Pain 12 tablet 5 Active Active Problems Problem Noted Date Diagnosed Date Septic shock 12/06/2024 Closed fracture of left distal femur 12/06/2024 Bedbound 12/06/2024 Closed fracture of lower end of right femur with routine healing 03/11/2020 RADHA (acute kidney injury) MS (multiple sclerosis) Pressure ulcer Dry eye syndrome COPD (chronic obstructive pulmonary disease) Anxiety Immunizations Immunization Administration Dates Next Due Artie Colvin primary monoval ent 12+ yr 0.3mL Purple cap 11/03/2020,10/13/2020 Family History Medical History Relation Name Comments Hypertension Father Hypertension Mother Relation Name Status Comments Father Mother Alive Social History Tobacco Use Types Packs/Day Years Used Date Smoking Tobacco: Former Cigarettes Smokeless Tobacco: Never Alcohol Use Standard Drinks/Week Comments No 0 (1 standard drink = 0.6 oz pur e alcohol) AUDIT-C Answer Date Recorded Q1: How often do you have a drink containing alcohol? Never 12/07/2024 Q2: How many drinks containi ng alcohol do you have on a typical day when you are drinking? Patient does not drink Q3: How often do you have si x or more drinks on one occasion? Never 12/07/2024 Overall Financial Resource Strain (CARDIA) Answe r Date Recorded How hard is it for you to pa y for the very basics like food, housing, medical care, and heating? Patient unable to answer 12/07/2024 [facility] [place] [facility] - Occupational Stress Questionnaire Answer Date Recorded Do you feel stress - tense, restless, nervous, or anxious, or unable to sleep at night because your mind is troubled all the time - these days? Patient unable to answer 12/07/2024 Hunger Vital Sign Answer Date Recorded Within the past 12 months, y ou worried that your food would run out before you got the money to buy more. Patient unable to answer 12/07/2024 Within the past 12 months, t he food you bought just didn't last and you didn't have money to get more. Patient unable to answer 12/07/2024 PRAPARE - Transportation Answer Date Re corded In the past 12 months, has l ack of transportation kept you from medical appointments or from getting medications? Patient unable to answer 12/07/2024 In the past 12 months, has l ack of transportation kept you from meetings, work, or from getting things needed for daily living? Patient unable to answer 12/07/2024 Housing Stability Vital Sign Answer Timo e Recorded In the last 12 months, was t here a time when you were not able to pay the mortgage or rent on time? Patient unable to answer 12/07/2024 Number of Times Moved in the Last Year Not on fi le 12/07/2024 At any time in the past 12 m [facility], were you homeless or living in a care home (including now)? Patient unable to answer 12/07/2024 Comments No Sex and Gender Information Value Date Recorded Sex Assigned at Not on file Legal Sex Female 6:26 PM DISABILITY SERVICES COORDINATOR Gender Identity Not on file Sexual Orientation Not on file Last Filed Vital Signs Vital Sign Reading Time Taken Comments Blood Pressure 114/78 12/15/2024 11:15 AM CDT Pulse 80 12/15/2024 11:15 AM CDT Temperature 36.7 C (98.1 F) 12/15/2024 11:15 AM CDT Respiratory Rate 20 12/15/2024 11:15 AM CDT Oxygen Saturation 93% 12/15/2024 11:15 AM CDT Inhaled Oxygen Concentration 28% 12/06/2024 3 :31 AM DISABILITY SERVICES COORDINATOR Weight 49.4 kg (109 lb) 12/15/2024 4:00 AM CDT Height 160 cm (5' 3) 12/06/2024 3:30 PM DISABILITY SERVICES COORDINATOR Body Mass Index 19.31 12/06/2024 3:30 PM DISABILITY SERVICES COORDINATOR Plan of Treatment Health Maintenance Due Date Last Done Comments COLOGUARD (AGES 45-75) - COL ON CA SCREENING 1966 COLON MONITORING 1966 COLONOSCOPY - COLON CA SCREENING 1966 CT COLONOGRAPHY - COLON CA SCREENING 1966 Colorectal Cancer Screening 1966 FIT - COLON CA SCREENING 1966 FLEX SIG - COLON CA SCREENING 1966 LIPID TESTING 1966 MAMMOGRAM 1966 MEDICARE AWV 12 MONTHS 1966 HEPATITIS C SCREENING 06/12/1984 DTAP/TDAP/TD VACCINES (1 - Tdap) 1985 HEPATITIS B VACCINE (1 of 3 - 19+ 3-dose series) 1985 PNEUMOCOCCAL VACCINE 50+ (1 of 2 - PCV) 1985 PAP SMEAR 1987 ZOSTER VACCINE (1 of 2) 2016 COVID-19 VACCINE (2023-2 5 season) 2024 11/03/2020, 10/13/2020 DEPRESSION SCREENING 10/01/2024 INFLUENZA VACCINE (#1) 2025 HIV SCREENING Completed 03/19/2020 HIB VACCINE Aged Out No longer eligi ble based on patient's age to complete this topic HPV VACCINE Aged Out No longer eligi ble based on patient's age to complete this topic MENINGOCOCCAL (Group B) VACCINE SHARED DECISION-MAKING Aged Out No longer eligible based on patient's age to complete this topic MENINGOCOCCAL GROUPS A/C/Y/W VACCINE Aged Out No longer eligible b ased on patient's age to complete this topic Goals Goal Patient Goal Type Associated Problems Recent Progress Patient-Stated? Author PAIN General No Shree Eaton, RN Note: Expected end date: ongoing Patient's pain/discomfort is manageable. Interventions: Medical Devices Implanted Type Area Exhibit Display Representative Device Identifier Shelf Expiration Date Model / Serial / Lot Versanail [place] Femoral Nail 13mmx 36cm Implanted:Qty: 1 on 03/15/2020 by Raymon Blakely DO at [facility] Right: Femur 08/04/2027 [id number] / / [id number] Screw 4.5mm 46mm Oblq Ft Slf-Tap Sld 2 Implanted:Qty: 1 on 03/15/2020 by Raymon Blakely DO at [facility] Right: Femur [employer] [id number] / / Screw 4.5mm 50mm Ft Sld Slf-Tap Hip Fem Implanted:Qty: 1 on 03/15/2020 by Raymon Blakely DO at [facility] Right: Femur [employer] [id number] / / Screw 6.5mm 60mm Ft Sld Slf-Tap Drv End Implanted:Qty: 1 on 03/15/2020 by Raymon Blakely DO at [facility] Right: Femur [employer] [id number] / / Screw 6.5mm 85mm Ft Sld Slf-Tap Drv End Implanted:Qty: 1 on 03/15/2020 by Raymon Blakely DO at [facility] Right: Femur [employer] [id number] / / 12.2mm One Step Reamer Implanted:Qty: 1 on 03/15/2020 by Raymon Blakely DO at [facility] Right: Femur [employer] 03/03/2030 [id number] / / [id number] Description:Not an implant 6.5 Solidlock 50mm Implanted:Qty: 1 on 03/15/2020 by Raymon Blakely DO at [facility] Right: Femur [employer] [id number] / / Advanced Locking Screw Implanted:Qty: 1 on 12/12/2024 by Regina Vicente MD at [facility] Left: Knee 06/30/2034 [id number] / / [id number] Advanced Locking Screw Implanted:Qty: 1 on 12/12/2024 by Regina Vicente MD at [facility] Left: Knee 09/30/2029 [id number] / / [id number] Advanced Locking Screw Implanted:Qty: 1 on 12/12/2024 by Regina Vicente MD at [facility] Left: Knee 04/30/2034 [id number] / / [id number] Locking Screw Implanted:Qty: 1 on 12/12/2024 by Regina Vicente MD at [facility] Left: Knee 04/30/2034 [id number] / / [id number] Locking Screw Implanted:Qty: 1 on 12/12/2024 by Regina Vicente MD at [facility] Left: Knee 08/30/2033 [id number] / / [id number] Femoral Nail Retrograde Implanted:Qty: 1 on 12/12/2024 by Regina Vicente MD at [facility] Left: Knee 09/30/2032 [id number] / / [id number] Explanted Type Area Exhibit Display Representative Device Identifier Shelf Expiration Date Model / Serial / Lot Screw 4.5mm 42mm Oblq Ft Slf-Tap Sld 2 Explanted:Qty: 1 on 03/15/2020 at [facility] Right: Femur [employer] [id number] / / Procedures Procedure Name Priority Date/Time Associated Diagnosis Comments HIV-1 HIV-2 ANTIGEN/ANTIBODY Routine 03/19/2020 7:44 AM CDT from Last 3 Months or Most Recently Relevant to Health Maintenance Results * HIV-1 HIV-2 ANTIGEN/ANTIBODY (03/19/2020 7:44 AM CDT) HIV Antigen/Antibod y 1 & 2 Non-reacti ve Non-react tj 03/19/2020 8:29 AM CDT [facility] Comment:Neither HIV-1 p24 An tigen nor HIV-1/HIV-2 Antibodies are detected. Blood BLOOD SPECIMEN / Unknown Lab Venipuncture / Unknown 03/19/2020 7:44 AM CDT 03/19/2020 7:51 AM CDT us Cinthia aSldana MD LAB - HEMATOLOGY ORDERABLES Fi nal Result Performing Organization Address [facility]/State/ZIP Co de Phone Number [facility] [address] [id number] [phone] from Last 3 Months or Most Recently Relevant to Health Maintenance Additional Health Concerns Infection Onset Date Last Indicated MDRO Hx Comment:03/11/20 - urine 12/08/2024 12/08/2024 ESBL Hx Comment:03/11/20 - urine 12/08/2024 12/08/2024 Insurance MEDICARE MEDICAID - [place] Advance Directives * Full Code (Latest Code Status on File) Date Activated Date Inactivated Comments 12/06/2024 3:55 AM 12/15/2024 5:17 PM * Full Code Date Activated Date Inactivated Comments 03/11/2020 8:21 PM 03/19/2020 11:14 AM Care Teams Multi Site Leasing Consultant Relationship Specialty Start Date End Date Luis Eduardo Quiroga MD PCP - General 03/05/18
--- NOTE | 2025-05-28 09:31 | PC.NURSE ---
Patient depend was soiled with urine and stool. Patient cleaned up and new dressing placed on patient's wounds. Patient has 3 wounds on her bottom. One measuring approx 6x4, one measuring 5x2 and another measuring 5x3. Measurement is approximate due to patient not being able to turn on her side completely for this RN to measure.
--- NOTE | 2025-05-28 09:45 | PC.NURSE ---
vascular access called for IV placement
[2025-05-28] MEDS: LACTATED RINGERS 1,000 ML 999 ML IV CONT (10:09)
[2025-05-28 10:33] LABS: Immature Granulocyte Percent A 0.9 % (0-0.5); Lymphocytes Absolute Auto 1.41 K/mm3 (0.9-3.2); Mean Corpuscular HGB Conc 27.6 g/dl (32-36); Mean Corpuscular Hemoglobin 22.0 pg (26-34); Mean Corpuscular Volume 80.0 fl (80-100); Nucleated Red Blood Cells Absolute Auto 0.000 K/mm3 (0.0-0.012); Nucleated Red Blood Cells Perc 0.0 % (0.0-0.2); Platelet Count Result 462 k/mm3 (150-375); Red Blood Count 2.45 M/mm3 (4.2-5.4); White Blood Count 17.8 K/mm3 (4.5-10.0)
[2025-05-28 10:41] LABS: Hematocrit 19.6 % (37.0-47.0); Hemoglobin 5.4 g/dL (12.0-15.0)
[2025-05-28 10:45] LABS: INR 4.3; Prothrombin Time 39.3 Seconds (11.1-14.7)
[2025-05-28 10:47] LABS: Partial Thromboplastin Time 130.0 Seconds (22.3-36.8)
[2025-05-28 10:50] LABS: Alanine Aminotransferase 10 U/L (6-35); Albumin Level 2.4 g/dL (3.5-5.1); Alkaline Phosphatase 163 U/L (38-126); Anion Gap 6 mmol/L (4-12); Aspartate Amino Transferase 18 U/L (14-36); Bilirubin,Total 0.4 mg/dL (0.2-1.3); Blood Urea Nitrogen 86 mg/dL (7-17); Calcium 7.5 mg/dL (8.4-10.2); Carbon Dioxide 27 mmol/L (22-30); Chloride 105 mmol/L (98-107); Estimated CRCL calculation 18 ml/min; Estimated Glomerular Filt Rate 18; Glucose 113 mg/dL (65-110); Potassium 3.8 mmol/L (3.4-5.0); Sodium 138 mmol/L (137-145); Total Protein 6.7 g/dL (6.3-8.2)
[2025-05-28 11:25] LABS: Anisocytosis 1+; Hypochromasia 1+; Schistocytes None Seen; Target Cells 1+
[2025-05-28] MEDS: SODIUM CHLORIDE 0.9% IV 250 ML 30 ML IV CONT (11:53)
[2025-05-28] MEDS: TUBING, BLOOD PLUM PUMP TUBING 1 EACH XX (11:54)
[2025-05-28] MEDS: CEFEPIME 2 GM in SODIUM CHLORIDE 0.9% IV 50 ML 100 ML IVPB (12:28)
--- NOTE | 2025-05-28 12:32 | PC.NURSE ---
Attempted to obtain 2nd set of blood cultures X3 attempted by 2 RN's. Provider aware of being unsuccessful. Provider gave verbal order to start antibiotics without obtaining the 2nd set of cultures.
[2025-05-28] MEDS: VANCOMYCIN 750 MG/NS 250 ML 750 MG/250 ML BAG 250 MG IVPB (13:20)
[2025-05-28 13:33] LABS: MRSA (PCR) DETECTED (NOT DETECTE)
--- NOTE | 2025-05-28 15:58 | WNDPHOTO ---
Addendum entered by Fran Alexis RN 05/29/25 08:48: Taken on R [facility] see date and time in photo Original Note: PHOTO ONLY - See Nursing Notes and/ or assessments for documentation.
--- NOTE | 2025-05-28 16:03 | WNDPHOTO ---
Addendum entered by Fran Alexis RN 05/29/25 08:45: Photo taken on R ischium, gauze left in wound bed see date and time in photo Original Note: PHOTO ONLY - See Nursing Notes and/ or assessments for documentation.
--- NOTE | 2025-05-28 16:05 | WNDPHOTO ---
Addendum entered by Fran Alexis RN 05/29/25 08:48: Taken on mid sacrum, see date and time in photo Original Note: PHOTO ONLY - See Nursing Notes and/ or assessments for documentation.
--- NOTE | 2025-05-28 16:06 | WNDPHOTO ---
Addendum entered by Fran Alexis RN 05/29/25 08:49: Taken on L ischium see date and time in photo Original Note: PHOTO ONLY - See Nursing Notes and/ or assessments for documentation.
--- NOTE | 2025-05-28 16:12 | WNDPHOTO ---
Addendum entered by Fran Alexis RN 05/29/25 08:51: Taken on Mid Back. dressing dated 01/25 from long term pictured uploaded into chart. See date and time in photo Original Note: PHOTO ONLY - See Nursing Notes and/ or assessments for documentation.
--- NOTE | 2025-05-28 16:14 | WNDPHOTO ---
Addendum entered by Fran Alexis RN 05/29/25 08:51: taken on R foot see date and time in photo Original Note: PHOTO ONLY - See Nursing Notes and/ or assessments for documentation.
--- NOTE | 2025-05-28 16:16 | WNDPHOTO ---
Addendum entered by Fran Alexis RN 05/29/25 08:52: Taken on R heel see date and time in photo Original Note: PHOTO ONLY - See Nursing Notes and/ or assessments for documentation.
--- NOTE | 2025-05-28 16:18 | WNDPHOTO ---
PHOTO ONLY - See Nursing Notes and/ or assessments for documentation.
--- NOTE | 2025-05-28 16:29 | WPCACHO ---
Situation Room: IMU Room 231 Bed: 01 Registration Status: ADM IN Reason for Visit: Pneumonia/Hypoxia/Anemia Primary Language: Azerbaijani Preferred Language for Healthcare Information: Living Arrangement: Contact: Enid Suarez/Person to Notify/[phone]/Sibling Admitting: Barbara Evans MD Attending: Barbara Evans MD Primary: Luis Eduardo Quiroga, Referring: Background Triage Note: Patient to the ED from [facility] with complaints of hypotension. Per facility BP was 88/35 and a room air of 88%. Patient placed on 2L NC and was 99%. Patient BP was 98/56 for EMS. Patient is a ramos of the state and A&Ox1 baseline. Patient is a quadriplegic and all extremities are contracted. Assessment New observations/notes/concerns this shift: Recommendations Abnormal labs: Specimens to Collect: Planned/Potential Procedures: Consents Obtained/Needed: Consults: Other follow-up needed: Discharge Planning Note: Code Status 05/28/25 12:26 Code Status Order Resuscitation Status: Full Code
--- NOTE | 2025-05-28 16:29 | WNDPHOTO ---
Addendum entered by Fran Alexis RN 05/29/25 09:00: mid back with dressing from alf Original Note: PHOTO ONLY - See Nursing Notes and/ or assessments for documentation.
--- NOTE | 2025-05-28 16:43 | ADMGEN ---
This patient, Yesenia Perez, was admitted to IMU Room 231-01. Patient/family oriented to hospital policies and general routines including ID bracelet, bed and alarms, visiting hours, pain management, procedures, bathroom and other care routines, personal items, smoking policy, room service/diet, and visiting hours. Information on how to activate the Rapid Response Team has been discussed. Patient/Family are encouraged to report perceived risks to care and to ask questions if they do not understand what they are told or what they should do.
--- NOTE | 2025-05-28 18:00 | P.HP_ITS ---
H&P: HPI History of Present Illness Date/Time: 05/28/25 18:00 Chief Complaint: Hypoxia and hypotension Narrative: 59-year-old female past medical history history of PE, schizoaffective disorder, multiple sclerosis quadriplegia, chronic kidney disease, COPD presents the hospital from her fdc with hypoxia and hypotension. Per her fdc her mental status is A&O x1 at baseline. HPI is limited as patient has no complaints. Patient states that she can breathe fine. She states that she does not know where she is in the hospital. Lab work in the ED shows leukocytosis at 17.8, anemia of 5.4, INR 4.3, BUN of 86, creatinine of 2.66 with previous creatinine being 1.09, GFR 18, calcium 7.5, UA pending, MRSA detected. Head CT shows no acute process. Chest CT shows bilateral pneumonia. EKG shows sinus tachycardia 109. Review of Systems Review of Systems: ROS unobtainable: Yes unobtainable due to medical condition and unobtainable due to mental status [facility] Past Medical History Medical History (Updated 05/28/25 @ 18:15 by Cristy Sebastian, [employer]) Chronic kidney disease, stage 3 Anorexia Malnutrition Pulmonary embolism (2015) Xanthogranulomatous pyelonephritis MRSA infection Urinary tract infection due to extended-spectrum beta lactamase (ESBL) producing Escherichia coli Chronic respiratory failure with hypoxia, on home oxygen therapy Previously documented that the patient is oxygen dependent on 4 L nasal cannula however she denies and is on room air with good SpO2 as of 07/27/2023. 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 History of nephrostomy Family History Family History Mother Family history of multiple sclerosis Hypertension Father Patient's father is Social History Social History Social History: Patient is a ramos of the [facility]. Her guardian is Abe Burnham ([phone]). Code status: Full code. Smoking packs per day: 0.5 Smoking cigarettes per day: 10.0 Years smoked: 1 Smoking pack-years: 0.50 Smoking status: Never smoker Second hand tobacco smoke exposure: No Alcohol intake: never Substance use: never Do You Feel Safe in your Home?: Yes Lack of Transportation: No Lack of Food: Never True Current Housing: I Have Housing Concerned About Future Housing: No Difficulty Paying Gas/Electric Bills: No Difficulty Paying for Meds: No Currently Unemployed: No Education: Don't Know Difficulty w/ Childcare or Family Care: No Living arrangements: fdc Additional living arrangements comments: 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ion: other Additional occupation/education comments: Disabled Spiritual care concerns: No Agree to blood products: Yes Meds Home Medications and Allergies Home Medications ?Medication ?Instructions ?Recorded ?Confirmed ?Type cholecalciferol (vitamin D3) 1,000 units G-tube DAILY 12/17/22 05/28/25 History famotidine 20 mg tablet 20 mg feeding tube BID 12/1705/28/25 History ondansetron 4 mg disintegrating 4 mg PO QID PRN Nausea And Vomiting 12/17/22 05/28/25 History tablet trazodone 50 mg tablet 50 mg feeding tube HS 05/28/25 History sennosides 8.6 mg tablet (senna) 8.6 mg feeding tube D AILY PRN 07/27/23 05/28/25 History Constipation thiamine HCl (vitamin B1) 100 mg 300 mg (3 x 100 mg) f eeding tube 01/31/24 05/28/25 Rx tablet (Vitamin B-1) QAM #90 tabs citalopram 20 mg tablet 30 mg feeding tube HS 05/28/25 History dextran 70-hypromellose eye drops 1 drp EACH EYE TID 0 06/20/24 05/28/25 History (Artificial Tears (dextran 70-hypromellose) eye drops) metoprolol tartrate 50 mg tablet 50 mg feeding tube Q8 H 06/20/24 05/28/25 History pregabalin 75 mg capsule 75 mg feeding tube DAILY 05/28/25 History polyethylene glycol 3350 17 gram 17 g PO QAM #30 ea 05/28/25 Rx oral powder packet (Miralax) acetaminophen 160 mg/5 mL oral 500 mg PO Q6H PRN fever or pain 01/13/25 05/28/25 History elixir arginine 7 gram-glutamine 7 1 ea PO BID 01/13/2505/28 History gram-calcium HMB 1.5 gram oral powder pack (Maged) bisacodyl 5 mg tablet,delayed 10 mg PO DAILY 01/13/25 05/28/25 History release ipratropium bromide 0.02 % 1.25 ml inhalation DAILY PA N 01/13/25 05/28/25 History solution for inhalation shortness of breath or wheez ing oxycodone 5 mg capsule 5 mg feeding tube Q8H #10 ca ps 01/18/25 05/28/25 Rx sodium hypochlorite 0.125 % 1 applic topical Q12HR #1, 000 mL 01/18/25 05/28/25 Rx solution (Dakin's Solution) dabigatran etexilate 150 mg capsule 150 mg PO BID 05/0205/28/25 History furosemide 20 mg tablet 20 mg PO DAILY 05/28/2505/02 History quetiapine 25 mg tablet 25 mg PO DAILY 05/28/2505/02 History sodium bicarbonate 650 mg tablet 325 mg PO BID 5 05/28/25 History Allergies Allergy/AdvReac Type Severity Reaction Status Date / Time No Known Allergies Allergy Verified 01/13/25 11:11 Vital Signs Vital Signs - 24 hr 05/28/25 08:46 05/28/25 11:11 05/28/25 11:54 Temperature 97.6 F 97.6 F Pulse Rate 111 H 106 H 105 H Respiratory Rate 18 18 14 Blood Pressure 82/56 L 101/68 99/63 L Pulse Oximetry 97 97 97 Oxygen Delivery Room Air 05/28/25 12:17 05/28/25 13:00 05/28/25 13:17 Temperature 97 F L 97.9 F Pulse Rate 107 H 109 H 109 H Respiratory Rate 16 17 19 Blood Pressure 112/68 114/72 104/83 Pulse Oximetry 98 96 99 Oxygen Delivery 05/28/25 14:00 05/28/25 14:38 05/28/25 14:54 Temperature 97.9 F 98.0 F Pulse Rate 105 H 108 H 105 H Respiratory Rate 16 17 16 Blood Pressure 98/71 L 104/83 116/80 Pulse Oximetry 97 98 97 Oxygen Delivery 05/28/25 15:26 05/28/25 15:54 05/28/25 16:00 Temperature 98.9 F Pulse Rate 105 H 116 H 111 H Respiratory Rate 17 24 H Blood Pressure 114/74 138/94 H Pulse Oximetry 98 97 Oxygen Delivery 05/28/25 16:40 Temperature 98.9 F Pulse Rate 116 H Respiratory Rate 24 H Blood Pressure 138/94 H Pulse Oximetry 97 Oxygen Delivery Exam Narrative: General: Chronically-ill, no acute distress HEENT: normocephalic, atraumatic. Mucous membranes moist. EOMI, PERRLA, bilateral sclera anicteric, no conjunctival injection. Neck supple without JVD, lymphadenopathy, or bruit. Respiratory: clear to ascultation bilaterally. No rales/rhonic/wheezes. Cardiovascular: Regular rate and rhythm, normal S1-S2 upon ascultation. No murmurs, rubs, or clicks. PMI is nondisplaced, capillary refill less than 3 second. Abdomen: Soft, round, no pulsatile masses, nondistended and nontender. No rebound, no guarding. No CVA tenderness, no hepatosplenomegaly. Bowel sounds present to all four quadrants. No high pitch or tinkling sounds, resonant to percussion. Extremities: No cyanosis, clubbing, or edema present. Pulses are palpable 2/2. Active ROM to all four extremities. Neuro: Alert and orientated x 1. PERRLA. Cranial nerves 2-12 intact without focal deficit. Skin: Warm, dry, and intact, without rash, erythema, or lesion. Psych: pleasant, cooperative, normal speech, normal affect, no hallucinations, no dysarthia H&P: Results Labs Labs: Short CBC 05/28/25 Range/Units 10:27 WBC 17.8 H (4.5-10.0) K/mm3 Hgb 5.4 L* (12.0-15.0) g/dL Hct 19.6 L* (37.0-47.0) % Plt Count 462 H (150-375) k/mm3 BMP 05/28/25 10:27 Sodium 138 Potassium 3.8 Chloride 105 Carbon Dioxide 27 BUN 86 H D Creatinine 2.66 H Glucose 113 H Calcium 7.5 L Liver Function 05/28/25 Range/Units 10:27 Total Bilirubin 0.4 (0.2-1.3) mg/dL AST 18 (14-36) U/L ALT 10 (6-35) U/L Alkaline Phosphatase 163 H (38-126) U/L Albumin 2.4 L (3.5-5.1) g/dL Assessment and Plan Assessment and plan (1) Acute on chronic anemia: Code(s): D64.9 - Anemia, unspecified Status: Acute Assessment and Plan: Hemoglobin on admission is 5.4 2 units RBCs on 05/28/2025 Q.6 hours H&H No signs of acute bleeding (2) Pneumonia: Qualifiers: Laterality: right Lung location: lower lobe of lung Pneumonia type: due to unspecified organism Qualified Code(s): J18.9 - Pneumonia, unspecified organism Code(s): J18.9 - Pneumonia, unspecified organism Status: Acute Assessment and Plan: IV vancomycin and cefepime (3) Tachycardia: Code(s): R00.0 - Tachycardia, unspecified Status: Acute Assessment and Plan: Fluid bolus Continue home metoprolol (4) Acute kidney injury: Code(s): N17.9 - Acute kidney failure, unspecified Status: Acute Assessment and Plan: IV fluid BMP in the morning Hold nephrotoxic medications (5) Supratherapeutic INR: Code(s): R79.1 - Abnormal coagulation profile Status: Acute Assessment and Plan: Hold Pradaxa INR in the morning (6) Hypocalcemia: Code(s): E83.51 - Hypocalcemia Status: Acute Assessment and Plan: Calcium replace (7) Essential (primary) hypertension: Code(s): I10 - Essential (primary) hypertension Status: Acute Assessment and Plan: Blood pressure is currently soft will hold antihypertensives (8) Schizoaffective disorder: Code(s): F25.9 - Schizoaffective disorder, unspecified Status: Acute Assessment and Plan: Continue Seroquel, trazodone, and citalopram Plan Lasix appears on patient's home med list however last November when she was here she did not have a diagnosis of CHF, unsure why she takes it patient is now, patient appears to be dehydrated Quality VTE Prophylaxis VTE prophylaxis: mechanical ordered If No VTE Prophylaxis Answer both mechanical and pharmacologic: Reason no pharmacologic proph: medical contraindication supratherapeutic INR >3 Hospitalist MIPS Advance Care Plan I have confirmed that the patient's Advanced Care Plan is present, code status is documented, or surrogate decision maker is listed in patient medical record.: Yes Medication Reconciliation I have utilized all available resources to obtain, update and review the patients current medications (includes all prescriptions, OTC, herbals, cannabis, and nutritional supplements).: Yes
[2025-05-28] MEDS: SODIUM CHLORIDE 0.9% IV 1,000 ML 75 ML IV CONT (18:33)
[2025-05-28] MEDS: CALCIUM GLUC 1,000 MG/NS 50 ML 1,000 MG/50 ML BAG 100 MG IVPB (18:33)
[2025-05-28] MEDS: SODIUM BICARBONATE TAB 325 MG TABLET FEED TUBE (18:39)
[2025-05-28] MEDS: NACL 0.9% IRRIGATION POUR BOTTLE 500 ML (18:39)
[2025-05-28 19:10] LABS: Hematocrit 31.3 % (37.0-47.0); Hemoglobin 9.6 g/dL (12.0-15.0)
[2025-05-28] MEDS: oxyCODONE HCL (*CRX) 5 MG TAB IR FEED TUBE (21:13)
[2025-05-28] MEDS: SENNA/DOCUSATE SODIUM TABLET 1 TAB FEED TUBE (21:13)
[2025-05-28] MEDS: METOPROLOL TARTRATE 50 MG TAB FEED TUBE (21:13)
[2025-05-29] VITALS (18 sets, daily range): BP systolic 97–143; BP diastolic 70–82; PULSE 83–104; RESP 16–18; TEMP 36.1–37.2; O2SAT 95–99; BMI 19.5
[2025-05-29] MEDS: SODIUM CHLORIDE 0.9% IV 1,000 ML 999 ML IV CONT (00:14)
[2025-05-29 01:06] LABS: Hematocrit 27.0 % (37.0-47.0); Hemoglobin 8.4 g/dL (12.0-15.0)
[2025-05-29 01:18] LABS: Estimated CRCL calculation 22 ml/min; Estimated Glomerular Filt Rate 26
[2025-05-29 06:29] LABS: Hematocrit 28.7 % (37.0-47.0); Hemoglobin 8.9 g/dL (12.0-15.0)
[2025-05-29] MEDS: oxyCODONE HCL (*CRX) 5 MG TAB IR FEED TUBE ×3 (06:36→21:01)
--- NOTE | 2025-05-29 08:46 | WNDPHOTO ---
PHOTO ONLY - See Nursing Notes and/ or assessments for documentation.
[2025-05-29] MEDS: FAMOTIDINE 20 MG TABLET FEED TUBE ×2 (09:04→17:39)
[2025-05-29] MEDS: SODIUM BICARBONATE TAB 325 MG TABLET FEED TUBE ×2 (09:04→17:39)
[2025-05-29] MEDS: APIXABAN 5 MG TABLET FEED TUBE ×2 (09:04→21:02)
[2025-05-29] MEDS: PREGABALIN (*CRX) 75 MG CAPSULE FEED TUBE (09:04)
[2025-05-29] MEDS: THIAMINE HCL 100 MG TABLET 300 MG FEED TUBE (09:04)
[2025-05-29] MEDS: SODIUM CHLORIDE 0.9% IV 1,000 ML 75 ML IV CONT (09:05)
[2025-05-29] MEDS: SOD HYPOCHLORITE 1/4 STRENGTH 473 ML 1 APPLIC TOPICAL ×2 (09:06→20:30)
[2025-05-29] MEDS: CEFEPIME 2 GM in SODIUM CHLORIDE 0.9% IV 50 ML 100 ML IVPB (11:29)
[2025-05-29] MEDS: DOXYCYCLINE HYCLATE 100 MG TABLET FEED TUBE ×2 (11:29→21:01)
[2025-05-29] MEDS: SILVER NITRATE (*SP) STICK 2 EACH TOPICAL (11:36)
[2025-05-29] MEDS: CENTRAL LINE FLUSH 10 ML IV PUSH ×2 (12:37→21:02)
--- NOTE | 2025-05-29 12:45 | PC.NURSE ---
Speech therapy evaluated patient and stated pt had no coughing while swallowing, and no swallowing issues. Spoke with MD earlier in the shift about diet order, MD stated as long as swallow study was normal patient could be placed on a regular diet. Regular diet order placed.
[2025-05-29 13:00] LABS: Hematocrit 29.3 % (37.0-47.0); Hemoglobin 9.0 g/dL (12.0-15.0); Immature Granulocyte Percent A 0.4 % (0-0.5); Lymphocytes Absolute Auto 1.05 K/mm3 (0.9-3.2); Mean Corpuscular HGB Conc 30.7 g/dl (32-36); Mean Corpuscular Hemoglobin 24.6 pg (26-34); Mean Corpuscular Volume 80.1 fl (80-100); Nucleated Red Blood Cells Absolute Auto 0.000 K/mm3 (0.0-0.012); Nucleated Red Blood Cells Perc 0.0 % (0.0-0.2); Platelet Count Result 357 k/mm3 (150-375); Red Blood Count 3.66 M/mm3 (4.2-5.4); White Blood Count 14.0 K/mm3 (4.5-10.0)
--- NOTE | 2025-05-29 13:16 | PCSTNOTE ---
Please refer to the Bedside Swallow Evaluation in the EMR. Please note, silent aspiration cannot be ruled out at bedside. The above pleasant and cooperative pt was seen for a swallow evaluation at the bedside. The pt was positioned upright in the bed & was alert but confused. She is currently NPO and has a PEG tube; Per NH report, she has the PEG tube due to choosing not to eat at times. Pt denies dysphagia. Oral mucosa is dry, but she was able to dry swallow on command; natural dentition is in fair condition some missing teeth are exhibited; Oral peripheral exam revealed lingual and labial structures to be normal. She was able to dry swallow on command and exhibited a strong cough and clear vocal quality. She was tested with pudding, applesauce, crackers, and thin liquids via cup sips and straw drinking. The oral stages appeared WNL. No oral leakage or pocketing was noted. During the pharyngeal stage, swallow reflex appeared prompt & laryngeal elevation adequate. No overt s/s of aspiration were exhibited; however, silent aspiration cannot be ruled out at bedside. General impression is normal swallow ability. Recommendation: Regular diet with regular liquids. Thank you for this referral.
[2025-05-29 13:33] LABS: Anion Gap 7 mmol/L (4-12); Blood Urea Nitrogen 69 mg/dL (7-17); Calcium 7.8 mg/dL (8.4-10.2); Carbon Dioxide 22 mmol/L (22-30); Chloride 111 mmol/L (98-107); Estimated CRCL calculation 24 ml/min; Estimated Glomerular Filt Rate 28; Glucose 97 mg/dL (65-110); Potassium 3.3 mmol/L (3.4-5.0); Sodium 140 mmol/L (137-145)
--- NOTE | 2025-05-29 14:07 | PM.CNGS ---
Assessment and Plan Assessment and plan (1) Pressure ulcers of skin of multiple topographic sites: Code(s): L89.90 - Pressure ulcer of unspecified site, unspecified stage Status: Acute Assessment and Plan: Patient presented with multiple stage IV and unstageable pressure ulcers to her upper back, sacrum, ischium, right foot and heel. Some of these were present during admission in December, while the foot and heel wounds are new. See wound photos in wound care note for descriptions. Left ischium wound appears to be the most severe. In December it was a stage III, but now contains necrotic yellow and campos devitalized tissues throughout. Upon discharge from last admission in December the she was instructed to apply Dakin soaked gauze to each wound daily. It is very evident that the [facility] she was that was likely not complying with this. Left ischium wound was debrided at the bedside. Patient tolerated well. It was then packed with Dakin soaked gauze. All other wounds were also covered in Dakin soaked gauze and then redressed. Continue daily wound care. We will continue to follow. If wounds continue to increase in severity, we may need to consider surgical debridement in the OR. We will trend white blood cell count. (2) Schizoaffective disorder: Code(s): F25.9 - Schizoaffective disorder, unspecified Status: Acute (3) Acute hypotension: Code(s): I95.9 - Hypotension, unspecified Status: Acute (4) RADHA (acute kidney injury): Code(s): N17.9 - Acute kidney failure, unspecified Status: Acute (5) Multiple sclerosis: Code(s): G35 - Multiple sclerosis Status: Acute (6) Pneumonia: Qualifiers: Laterality: right Lung location: lower lobe of lung Pneumonia type: due to unspecified organism Qualified Code(s): J18.9 - Pneumonia, unspecified organism Code(s): J18.9 - Pneumonia, unspecified organism Status: Acute Assessment and Plan: Continue cefepime and doxycycline. Plan Discussed patient's case and plan of care with Dr. Branham. History of Present Illness Consult details Consult date: 05/29/25 Reason for consult: other (Pressure wounds) Requesting physician: Barbara Evans MD Narrative: Patient is a 59-year-old female with history of schizoaffective disorder, multiple sclerosis, clotted replete CHRISTIE, MRSA, CKD, COPD who we have been asked to see in surgical consultation for multiple pressure wounds. Patient presented to the emergency department yesterday from [facility] for evaluation of episode of hypoxia and hypotension. Of note, patient is A&O x1 at baseline. Upon admission, she was satting 97% on room air. Blood pressure slightly hypotensive with lowest reading overnight 92/62. Tachycardic upon arrival. Patient was noted to have several pressure wounds to her back, sacrum, ischium, and right foot and a consult was placed to the general surgery team. Patient is well known to the surgery and Wound Care Service as she was just seen here in December for pressure injuries. During this admission she was taken to the OR on 01/15/2025 for sharp excisional debridement of right ischial decubitus ulcer including skin, subcutaneous fat, muscle, tendon, and bone measuring 5 cm x 5 cm. During this admission patient was also noted to have multiple ulcers over the sacrum, bilateral ischium, and scapular region. The wounds to the patient's right heel and dorsal foot were not present back in December. Left ischium wound was a stage III in December, now unstageable. Per nursing staff, there was a bandage on 1 of the wounds that was dated in December, so it can be presumed that these wounds were not well taking care of. When she was discharged in December, instructions included daily dressing changes with Dakins soaked gauze. She was also advised to follow-up in the [facility], but it does not appear that she did so. WBC 14.0, down from 17.8 yesterday. Currently being treated with cefepime and doxycycline. A sacrum and coccyx x-ray was obtained and demonstrated no acute bone or joint abnormality identified. Bilateral dislocation and remodeling of the hips, likely chronic. MRI recommended if there is concern for osteomyelitis. Thoracic spine x-ray was also obtained and demonstrated limited study due to scoliosis and osteopenia. Mild compression deformities of T8 and T9 with possible additional compression fractures which are difficult to evaluate due to patient rotation, demineralization and immobility. Diffuse bilateral airspace disease which may represent edema or pneumonia. [facility] Past Medical History Medical History (Updated 05/29/25 @ 14:47 by Tami Rivera PA-C) Chronic kidney disease, stage 3 Anorexia Malnutrition Pulmonary embolism (2015) Xanthogranulomatous pyelonephritis MRSA infection Urinary tract infection due to extended-spectrum beta lactamase (ESBL) producing Escherichia coli Chronic respiratory failure with hypoxia, on home oxygen therapy Previously documented that the patient is oxygen dependent on 4 L nasal cannula however she denies and is on room air with good SpO2 as of 07/27/2023. Chronic obstructive pulmonary disease Pyelonephritis Anemia Hyperlipidemia Dementia Functional quadriplegia secondary to MS Depression Generalized anxiety disorder Essential (primary) hypertension Calculus of kidney Extended spectrum beta lactamase (ESBL) resistance GI bleed Intestinal obstruction Urinary retention Overactive bladder Colitis Schizoaffective disorder Asthma Multiple sclerosis Surgical History Surgical History (Updated 05/29/25 @ 06:36 by Tammi Feng, DO) Status post insertion of percutaneous endoscopic gastrostomy (PEG) tube (12/2023) History of removal of ureteral stent History of tubal ligation 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 History of nephrostomy Family History Family History Mother Family history of multiple sclerosis Hypertension Father Patient's father is Social History Social History Social History: Patient is a ramos of the [facility]. Her guardian is Abe Burnham ([phone]). Code status: Full code. Smoking packs per day: 0.5 Smoking cigarettes per day: 10.0 Years smoked: 1 Smoking pack-years: 0.50 Smoking status: Never smoker Second hand tobacco smoke exposure: No Alcohol intake: never Substance use: never Do You Feel Safe in your Home?: Yes Lack of Transportation: No Lack of Food: Never True Current Housing: I Have Housing Concerned About Future Housing: No Difficulty Paying Gas/Electric Bills: No Difficulty Paying for Meds: No Currently Unemployed: No Education: Don't Know Difficulty w/ Childcare or Family Care: No Living arrangements: [facility] Additional living arrangements comments: 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ion: other Additional occupation/education comments: Disabled Spiritual care concerns: No Agree to blood products: Yes Meds Home Medications and Allergies Home Medications ?Medication ?Instructions ?Recorded ?Confirmed ?Type cholecalciferol (vitamin D3) 1,000 units G-tube DAILY 12/17/22 05/28/25 History famotidine 20 mg tablet 20 mg feeding tube BID 12/17/22 05/28/25 History ondansetron 4 mg disintegrating 4 mg PO QID PRN Nausea And Vomiting 12/17/22 05/28/25 History tablet trazodone 50 mg tablet 50 mg feeding tube HS 12/17/22 05/28/25 History sennosides 8.6 mg tablet (senna) 8.6 mg feeding tube DAILY PRN 07/27/23 05/28/25 History Constipation thiamine HCl (vitamin B1) 100 mg 300 mg (3 x 100 mg) feeding tube 01/31/24 05/28/25 Rx tablet (Vitamin B-1) QAM #90 tabs citalopram 20 mg tablet 30 mg feeding tube HS 06/20/24 05/28/25 History dextran 70-hypromellose eye drops 1 drp EACH EYE TID 06/20/24 05/28/25 History (Artificial Tears (dextran 70-hypromellose) eye drops) metoprolol tartrate 50 mg tablet 50 mg feeding tube Q8H 06/20/24 05/28/25 History pregabalin 75 mg capsule 75 mg feeding tube DAILY 06/20/24 05/28/25 History polyethylene glycol 3350 17 gram 17 g PO QAM #30 ea 07/17/24 05/28/25 Rx oral powder packet (Miralax) acetaminophen 160 mg/5 mL oral 500 mg PO Q6H PRN fever or pain 01/13/25 05/28/25 History elixir arginine 7 gram-glutamine 7 1 ea PO BID 01/13/25 05/28/25 History gram-calcium HMB 1.5 gram oral powder pack (Maged) bisacodyl 5 mg tablet,delayed 10 mg PO DAILY 01/13/25 05/28/25 History release ipratropium bromide 0.02 % 1.25 ml inhalation DAILY PRN 01/13/25 05/28/25 History solution for inhalation shortness of breath or wheezing oxycodone 5 mg capsule 5 mg feeding tube Q8H #10 caps 01/18/25 05/28/25 Rx sodium hypochlorite 0.125 % 1 applic topical Q12HR #1,000 mL 01/18/25 05/28/25 Rx solution (Dakin's Solution) dabigatran etexilate 150 mg capsule 150 mg PO BID 05/28/25 05/28/25 History furosemide 20 mg tablet 20 mg PO DAILY 05/28/25 05/28/25 History quetiapine 25 mg tablet 25 mg PO DAILY 05/28/25 05/28/25 History sodium bicarbonate 650 mg tablet 325 mg PO BID 05/28/25 05/28/25 History Allergies Allergy/AdvReac Type Severity Reaction Status Date / Time No Known Allergies Allergy Verified 01/13/25 11:11 Vital Signs Vital Signs - 24 hr 05/28/25 14:38 05/28/25 14:54 05/28/25 15:26 Temperature 97.9 F 98.0 F Pulse Rate 108 H 105 H 105 H Respiratory Rate 17 16 17 Blood Pressure 104/83 116/80 114/74 Pulse Oximetry 98 97 98 Oxygen Delivery 05/28/25 15:54 05/28/25 16:00 05/28/25 16:40 Temperature 98.9 F 98.9 F Pulse Rate 116 H 111 H 116 H Respiratory Rate 24 H 24 H Blood Pressure 138/94 H 138/94 H Pulse Oximetry 97 97 Oxygen Delivery 05/28/25 16:54 05/28/25 18:00 05/28/25 20:00 Temperature 97.8 F 99.7 F H Pulse Rate 121 H 127 H 127 H Respiratory Rate 18 20 Blood Pressure 126/88 115/78 Pulse Oximetry 97 96 Oxygen Delivery 05/28/25 20:00 05/28/25 20:00 05/28/25 21:13 Temperature Pulse Rate 122 H 123 H Respiratory Rate Blood Pressure Pulse Oximetry Oxygen Delivery Room Air 05/28/25 22:00 05/28/25 23:57 05/29/25 00:00 Temperature 99.0 F Pulse Rate 99 96 Respiratory Rate 18 Blood Pressure 92/62 L Pulse Oximetry 97 Oxygen Delivery Room Air 05/29/25 00:00 05/29/25 02:00 05/29/25 02:05 Temperature Pulse Rate 95 88 Respiratory Rate Blood Pressure 97/70 L Pulse Oximetry Oxygen Delivery 05/29/25 04:00 05/29/25 04:00 05/29/25 04:00 Temperature 99.0 F Pulse Rate 91 90 Respiratory Rate 18 Blood Pressure 117/77 Pulse Oximetry 99 Oxygen Delivery Room Air 05/29/25 06:00 05/29/25 06:36 05/29/25 08:00 Temperature Pulse Rate 95 86 Respiratory Rate Blood Pressure Pulse Oximetry Oxygen Delivery Room Air 05/29/25 08:00 05/29/25 08:13 05/29/25 10:00 Temperature 97.7 F Pulse Rate 94 94 96 Respiratory Rate 18 Blood Pressure 130/82 Pulse Oximetry 95 Oxygen Delivery 05/29/25 12:00 05/29/25 12:00 05/29/25 12:31 Temperature 96.9 F L Pulse Rate 97 98 Respiratory Rate 18 Blood Pressure 129/82 Pulse Oximetry 97 Oxygen Delivery Room Air Exam Const: General: uncomfortable Eyes: General: appearance normal, both eyes and all related structures Neck: Neck: supple Resp: Effort & Inspection: normal respiratory effort Cardio: Rate: regular rate : Other: Unable to place urinary catheter due to patient's contractions Skin: Full body images:  1. Right dorsal foot pressure ulcer 6 x 8 cm, unstageable. Black necrotic dry eschar present throughout entire wound. Foul smelling. 2. Left ischium pressure ulcer 4 x 7 x 2 cm with undermining to entire circumference with deepest at 3:00 a.m. of 2 cm. Wound bed approximately 90% covered with stringy foul smelling yellow/campos necrotic tissue. 3. Sacral pressure ulcer 4 cm x 3 cm x 1 cm with undermining and tunneling. Red healthy granulation tissue present throughout. Bone exposed in the wound bed. No signs or symptoms of infection. Draining mostly serosanguineous pink fluid. 4. Right buttock 2.5 cm x 1.8 cm x 1.3 cm pressure ulcer. Wound bed is 100% red healthy granulation tissue. Tunneling. Mostly serosanguineous fluid, but at end of exam noticed some grayish yellow thin liquid output. 5. Small ulceration measuring about 2.8 cm x 2.5 cm by 0.2 cm with 100% healthy pink tissue in wound bed. 6. Right upper back 4.5 cm x 3.5 cm x 0.3 cm stage III pressure ulcer directly over bony prominence. Small opening present in middle of wound. Wound bed is healthy pink tissue. 7. Right heel pressure ulcer measuring 4 x 3 cm. Black eschar present to around 50% the wound. Grade devitalized tissue. Extrem: General: normal to inspection Psych: Other: A&O x1 Results Labs 05/29/25 12:55 05/29/25 12:55 Labs: Abnormal lab results 05/28/25 05/28/25 05/29/25 Range/Units 10:51 18:59 00:51 WBC (4.5-10.0) K/mm3 RBC (4.2-5.4) M/mm3 Hgb 9.6 L D 8.4 L (12.0-15.0) g/dL Hct 31.3 L 27.0 L (37.0-47.0) % MCH (26-34) pg MCHC (32-36) g/dl RDW (11.5-14.5) % Neut % (Auto) (45.5-73.1) % Lymph % (Auto) (18.3-44.2) % Will % (Auto) (2.6-8.5) % Abs Immat Gran (auto) (0.00-0.031) K/mm3 Absolute Neuts (auto) (1.3-6.7) K/mm3 Potassium (3.4-5.0) mmol/L Chloride (98-107) mmol/L BUN (7-17) mg/dL Creatinine 1.99 H (0.7-1.0) mg/dL Estimated GFR 26 L (59 - ) Calcium (8.4-10.2) mg/dL Crossmatch See Detail 05/29/25 05/29/25 Range/Units 06:25 12:55 WBC 14.0 H (4.5-10.0) K/mm3 RBC 3.66 L (4.2-5.4) M/mm3 Hgb 8.9 L 9.0 L (12.0-15.0) g/dL Hct 28.7 L 29.3 L (37.0-47.0) % MCH 24.6 L D (26-34) pg MCHC 30.7 L (32-36) g/dl RDW 17.6 H (11.5-14.5) % Neut % (Auto) 88.0 H (45.5-73.1) % Lymph % (Auto) 7.5 L (18.3-44.2) % Will % (Auto) 2.4 L (2.6-8.5) % Abs Immat Gran (auto) 0.06 H (0.00-0.031) K/mm3 Absolute Neuts (auto) 12.3 H (1.3-6.7) K/mm3 Potassium 3.3 L (3.4-5.0) mmol/L Chloride 111 H (98-107) mmol/L BUN 69 H D (7-17) mg/dL Creatinine 1.86 H (0.7-1.0) mg/dL Estimated GFR 28 L (59 - ) Calcium 7.8 L (8.4-10.2) mg/dL Crossmatch Diabetes panel 05/29/25 05/29/25 Range/Units 00:51 12:55 Sodium 140 (137-145) mmol/L Potassium 3.3 L (3.4-5.0) mmol/L Chloride 111 H (98-107) mmol/L Carbon Dioxide 22 (22-30) mmol/L BUN 69 H D (7-17) mg/dL Creatinine 1.99 H 1.86 H (0.7-1.0) mg/dL Glucose 97 (65-110) mg/dL Calcium 7.8 L (8.4-10.2) mg/dL Calcium panel 05/29/25 Range/Units 12:55 Calcium 7.8 L (8.4-10.2) mg/dL Pituitary panel 05/29/25 05/29/25 Range/Units 00:51 12:55 Sodium 140 (137-145) mmol/L Potassium 3.3 L (3.4-5.0) mmol/L Chloride 111 H (98-107) mmol/L Carbon Dioxide 22 (22-30) mmol/L BUN 69 H D (7-17) mg/dL Creatinine 1.99 H 1.86 H (0.7-1.0) mg/dL Glucose 97 (65-110) mg/dL Calcium 7.8 L (8.4-10.2) mg/dL Adrenal panel 05/29/25 05/29/25 Range/Units 00:51 12:55 Sodium 140 (137-145) mmol/L Potassium 3.3 L (3.4-5.0) mmol/L Chloride 111 H (98-107) mmol/L Carbon Dioxide 22 (22-30) mmol/L BUN 69 H D (7-17) mg/dL Creatinine 1.99 H 1.86 H (0.7-1.0) mg/dL Glucose 97 (65-110) mg/dL Calcium 7.8 L (8.4-10.2) mg/dL All other labs normal.
--- NOTE | 2025-05-29 14:53 | W.PM.PROC2 ---
Procedure Note - Detailed Date of Procedure 05/29/25 Pre-op Diagnosis Unstageable pressure ulcers/ Pneumonia/Hypoxia/Anemia Post-op Diagnosis Same Procedure Performed Sharp excisional debridement of left ischial pressure wound Surgeon Tami Rivera PA-C Anesthesia None Indications Patient came to the ED yesterday for hypotension and hypoxia. She was found to have multiple unstageable and stage IV pressure wounds. Left ischium wound measured 4 cm x 7 cm x 2 cm. Wound bed was covered in a yellow campos devitalized tissue amenable to debridement. Description of Procedure Patient was placed in left lateral decubitus position to optimize access to the wound. Sharp debridement was performed using sterile scalpel and scissors. Necrotic tissue was excised until healthy, viable bleeding tissue was encountered. Silver nitrate was used to chemically cauterize bleeding. Hemostasis was then further achieved with direct pressure and packing with Dakin soaked gauze. Estimated Blood Loss 5 Urine Output 400 Drains No Packing No Pathology None sent Complications No immediate complications Condition Stable Disposition Floor [facility] Billing Surgery - Charge Forward: Surgery Billing
--- NOTE | 2025-05-29 16:06 | WPDURCON ---
Assessment and Plan Assessment and plan (1) Pressure ulcers of skin of multiple topographic sites: Code(s): L89.90 - Pressure ulcer of unspecified site, unspecified stage Status: Acute Plan 59y old female quadriplegic with multiple decubitus ulcers needing a fernandez for wound healing. staff have made multiple attempts at fernandez placement. Urology consulted for placement. -Dr. Can will be on unit for placement of fernandez. -cr is trending down today 1.86 -wbc is elevated at 14.0 but is down from 17 Urology Consult Note HPI Date Seen: 05/29/25 Requesting Physician: Barbara Evans MD Primary Care Provider: Luis Eduardo Quiroga, Consult Narrative Narrative: Yesenia Perez is a 59 year old female with multiple stage IV and unstageable pressure ulcers to her upper back, sacrum, ischium, right foot and heel. She is a quadriplegic and has severe contractures. Review of Systems Review of Systems: ROS unobtainable: Yes unobtainable due to mental status [facility] Past Medical History Medical History (Updated 05/29/25 @ 14:47 by Tami Rivera PA-C) Chronic kidney disease, stage 3 Anorexia Malnutrition Pulmonary embolism (2015) Xanthogranulomatous pyelonephritis MRSA infection Urinary tract infection due to extended-spectrum beta lactamase (ESBL) producing Escherichia coli Chronic respiratory failure with hypoxia, on home oxygen therapy Previously documented that the patient is oxygen dependent on 4 L nasal cannula however she denies and is on room air with good SpO2 as of 07/27/2023. Chronic obstructive pulmonary disease Pyelonephritis Anemia Hyperlipidemia Dementia Functional quadriplegia secondary to MS Depression Generalized anxiety disorder Essential (primary) hypertension Calculus of kidney Extended spectrum beta lactamase (ESBL) resistance GI bleed Intestinal obstruction Urinary retention Overactive bladder Colitis Schizoaffective disorder Asthma Multiple sclerosis Surgical History Surgical History (Updated 05/29/25 @ 06:36 by Tammi Feng DO) Status post insertion of percutaneous endoscopic gastrostomy (PEG) tube (12/2023) History of removal of ureteral stent History of tubal ligation 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 History of nephrostomy Family History Family History Mother Family history of multiple sclerosis Hypertension Father Patient's father is Social History Social History Social History: Patient is a ramos of [facility]. Her guardian is Abe Burnham ([phone]). Code status: Full code. Smoking packs per day: 0.5 Smoking cigarettes per day: 10.0 Years smoked: 1 Smoking pack-years: 0.50 Smoking status: Never smoker Second hand tobacco smoke exposure: No Alcohol intake: never Substance use: never Do You Feel Safe in your Home?: Yes Lack of Transportation: No Lack of Food: Never True Current Housing: I Have Housing Concerned About Future Housing: No Difficulty Paying Gas/Electric Bills: No Difficulty Paying for Meds: No Currently Unemployed: No Education: Don't Know Difficulty w/ Childcare or Family Care: No Living arrangements: prison Additional living arrangements comments: 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ion: other Additional occupation/education comments: Disabled Spiritual care concerns: No Agree to blood products: Yes Meds Home Medications and Allergies Home Medications ?Medication ?Instructions ?Recorded ?Confirmed ?Type cholecalciferol (vitamin D3) 1,000 units G-tube DAILY 12/17/22 05/28/25 History famotidine 20 mg tablet 20 mg feeding tube BID 12/17/22 05/28/25 History ondansetron 4 mg disintegrating 4 mg PO QID PRN Nausea And Vomiting 12/17/22 05/28/25 History tablet trazodone 50 mg tablet 50 mg feeding tube HS 12/17/22 05/28/25 History sennosides 8.6 mg tablet (senna) 8.6 mg feeding tube DAILY PRN 07/27/23 05/28/25 History Constipation thiamine HCl (vitamin B1) 100 mg 300 mg (3 x 100 mg) feeding tube 01/31/24 05/28/25 Rx tablet (Vitamin B-1) QAM #90 tabs citalopram 20 mg tablet 30 mg feeding tube HS 06/20/24 05/28/25 History dextran 70-hypromellose eye drops 1 drp EACH EYE TID 06/20/24 05/28/25 History (Artificial Tears (dextran 70-hypromellose) eye drops) metoprolol tartrate 50 mg tablet 50 mg feeding tube Q8H 06/20/24 05/28/25 History pregabalin 75 mg capsule 75 mg feeding tube DAILY 06/20/24 05/28/25 History polyethylene glycol 3350 17 gram 17 g PO QAM #30 ea 07/17/24 05/28/25 Rx oral powder packet (Miralax) acetaminophen 160 mg/5 mL oral 500 mg PO Q6H PRN fever or pain 01/13/25 05/28/25 History elixir arginine 7 gram-glutamine 7 1 ea PO BID 01/13/25 05/28/25 History gram-calcium HMB 1.5 gram oral powder pack (Maged) bisacodyl 5 mg tablet,delayed 10 mg PO DAILY 01/13/25 05/28/25 History release ipratropium bromide 0.02 % 1.25 ml inhalation DAILY PRN 01/13/25 05/28/25 History solution for inhalation shortness of breath or wheezing oxycodone 5 mg capsule 5 mg feeding tube Q8H #10 caps 01/18/25 05/28/25 Rx sodium hypochlorite 0.125 % 1 applic topical Q12HR #1,000 mL 01/18/25 05/28/25 Rx solution (Dakin's Solution) dabigatran etexilate 150 mg capsule 150 mg PO BID 05/28/25 05/28/25 History furosemide 20 mg tablet 20 mg PO DAILY 05/28/25 05/28/25 History quetiapine 25 mg tablet 25 mg PO DAILY 05/28/25 05/28/25 History sodium bicarbonate 650 mg tablet 325 mg PO BID 05/28/25 05/28/25 History Allergies Allergy/AdvReac Type Severity Reaction Status Date / Time No Known Allergies Allergy Verified 01/13/25 11:11 Vital Signs Vital Signs - 24 hr 05/28/25 16:40 05/28/25 16:54 05/28/25 18:00 Temperature 98.9 F 97.8 F Pulse Rate 116 H 121 H 127 H Respiratory Rate 24 H 18 Blood Pressure 138/94 H 126/88 Pulse Oximetry 97 97 Oxygen Delivery 05/28/25 20:00 05/28/25 20:00 05/28/25 20:00 Temperature 99.7 F H Pulse Rate 127 H 122 H Respiratory Rate 20 Blood Pressure 115/78 Pulse Oximetry 96 Oxygen Delivery Room Air 05/28/25 21:13 05/28/25 22:00 05/28/25 23:57 Temperature 99.0 F Pulse Rate 123 H 99 96 Respiratory Rate 18 Blood Pressure 92/62 L Pulse Oximetry 97 Oxygen Delivery 05/29/25 00:00 05/29/25 00:00 05/29/25 02:00 Temperature Pulse Rate 95 88 Respiratory Rate Blood Pressure Pulse Oximetry Oxygen Delivery Room Air 05/29/25 02:05 05/29/25 04:00 05/29/25 04:00 Temperature 99.0 F Pulse Rate 91 Respiratory Rate 18 Blood Pressure 97/70 L 117/77 Pulse Oximetry 99 Oxygen Delivery Room Air 05/29/25 04:00 05/29/25 06:00 05/29/25 06:36 Temperature Pulse Rate 90 95 86 Respiratory Rate Blood Pressure Pulse Oximetry Oxygen Delivery 05/29/25 08:00 05/29/25 08:00 05/29/25 08:13 Temperature 97.7 F Pulse Rate 94 94 Respiratory Rate 18 Blood Pressure 130/82 Pulse Oximetry 95 Oxygen Delivery Room Air 05/29/25 10:00 05/29/25 12:00 05/29/25 12:00 Temperature Pulse Rate 96 97 Respiratory Rate Blood Pressure Pulse Oximetry Oxygen Delivery Room Air 05/29/25 12:31 Temperature 96.9 F L Pulse Rate 98 Respiratory Rate 18 Blood Pressure 129/82 Pulse Oximetry 97 Oxygen Delivery Exam Const: General: no acute distress Resp: Effort & Inspection: normal respiratory effort Urinary Catheter: Urinary Catheter: other (purewick with yellow urine) Skin: Wounds: wounds noted Neuro: Other: quadriplegic Results Labs 05/29/25 12:55 05/29/25 12:55 Labs: Short CBC 05/28/25 05/29/25 05/29/25 Range/Units 18:59 00:51 06:25 WBC (4.5-10.0) K/mm3 Hgb 9.6 L D 8.4 L 8.9 L (12.0-15.0) g/dL Hct 31.3 L 27.0 L 28.7 L (37.0-47.0) % Plt Count (150-375) k/mm3 05/29/25 Range/Units 12:55 WBC 14.0 H (4.5-10.0) K/mm3 Hgb 9.0 L (12.0-15.0) g/dL Hct 29.3 L (37.0-47.0) % Plt Count 357 (150-375) k/mm3 BMP 05/29/25 05/29/25 00:51 12:55 Sodium 140 Potassium 3.3 L Chloride 111 H Carbon Dioxide 22 BUN 69 H D Creatinine 1.99 H 1.86 H Glucose 97 Calcium 7.8 L
[2025-05-29] MEDS: METOPROLOL TARTRATE 50 MG TAB FEED TUBE ×2 (17:39→23:00)
--- NOTE | 2025-05-29 17:53 | PC.NURSE ---
Fernandez order placed for decubitus ulcer. Multiple RNs attempted fernandez placement without success. Urology BAND BOOKER attempted without sucess. Dr Can attempted fernandez placement without success. Plan for possible supra pubic catheter on Sunday per doctor Can. Not ordered at this time.
--- NOTE | 2025-05-29 18:06 | PM.IMPN ---
Progress Note: A&P Assessment and Plan (1) Acute on chronic anemia: Code(s): D64.9 - Anemia, unspecified Status: Acute (2) Pneumonia: Qualifiers: Laterality: right Lung location: lower lobe of lung Pneumonia type: due to unspecified organism Qualified Code(s): J18.9 - Pneumonia, unspecified organism Code(s): J18.9 - Pneumonia, unspecified organism Status: Acute (3) Tachycardia: Code(s): R00.0 - Tachycardia, unspecified Status: Acute (4) Acute kidney injury: Code(s): N17.9 - Acute kidney failure, unspecified Status: Acute (5) Supratherapeutic INR: Code(s): R79.1 - Abnormal coagulation profile Status: Acute (6) Hypocalcemia: Code(s): E83.51 - Hypocalcemia Status: Acute (7) Essential (primary) hypertension: Code(s): I10 - Essential (primary) hypertension Status: Acute (8) Schizoaffective disorder: Code(s): F25.9 - Schizoaffective disorder, unspecified Status: Acute Assessment and Plan: 1. Acute hypoxia-resolved Likely secondary to pneumonia Presented with leukocytosis, WBC 17.8 on admission-down trending today 14.[address] shows bilateral pneumonia-moderate bi basilar infiltrate-minimal emphysematous change Follow strep pneumo/Legionella antigen Follow blood/urine culture Vanc deescalated to doxycycline Continue cefepime 2. Acute on chronic anemia On admission, hemoglobin was 5.4 Status post 2 unit PRBC Patient has stage IV pressure wound on the coccyx area-likely the bleeding source 3. RADHA Likely secondary to pneumonia and acute blood loss anemia IV fluid and blood transfusion Creatinine 1.86 today 4. Multiple stage states of healing Coccygeal wound Likely stage IV pressure ulcer with eschar Status post debridement by General surgery Appreciate recs from General surgery Wound care follow-up Urology consulted for [place] catheter placement due to difficult anatomy-to keep the urine flows without contaminating the wound-urology was unable to place [place]-she might need a suprapubic [place] placement Will call her guardian on Sunday for permission Sacrum and coccyx x-rays negative for osteomyelitis 5. Schizoaffective disorder Continue home meds including Seroquel, trazodone, and citalopram 6. Hypertension stable 7. History of PE 2024 Patient has PEG tube Will switch Pradaxa to Eliquis Time Spent With Patient Time: 30 minutes Subjective Date/time seen: 05/29/25 18:06 Interval history: She was seen and examined today. She is not in acute distress. She does not have fever or chills. She wears diaper. She has quadriplegia. She is oriented to person. Exam Narrative: APPEARANCE: No acute distress EYES: EOMI HEENT: Normocephalic, atraumatic, OMM RESPIRATORY: No respiratory distress Clear to auscultation bilaterally with no rhonchi wheezing or rales. CARDIOVASCULAR: RRR, S1 and S2 without murmurs rubs or gallops. ABDOMINAL: Soft, nontender, nondistended, no rebound or guarding MSK: Paralyzed waist down. NEURO: Awake and alert. Following commands, speech normal, no focal deficits SKIN:: Warm, dry. No rashes lesions or abrasions PSYCHIATRIC: Anxious Objective Data Vital Signs Vital Signs: Vital Signs - 24 hr 05/28/25 20:00 05/28/25 20:00 05/28/25 20:00 Temperature 37.6 C H Pulse Rate 127 H 122 H Respiratory Rate 20 Blood Pressure 115/78 Pulse Oximetry 96 Oxygen Delivery Room Air 05/28/25 21:13 05/28/25 22:00 05/28/25 23:57 Temperature 37.2 C Pulse Rate 123 H 99 96 Respiratory Rate 18 Blood Pressure 92/62 L Pulse Oximetry 97 Oxygen Delivery 05/29/25 00:00 05/29/25 00:00 05/29/25 02:00 Temperature Pulse Rate 95 88 Respiratory Rate Blood Pressure Pulse Oximetry Oxygen Delivery Room Air 05/29/25 02:05 05/29/25 04:00 05/29/25 04:00 Temperature 37.2 C Pulse Rate 91 Respiratory Rate 18 Blood Pressure 97/70 L 117/77 Pulse Oximetry 99 Oxygen Delivery Room Air 05/29/25 04:00 05/29/25 06:00 05/29/25 06:36 Temperature Pulse Rate 90 95 86 Respiratory Rate Blood Pressure Pulse Oximetry Oxygen Delivery 05/29/25 08:00 05/29/25 08:00 05/29/25 08:13 Temperature 36.5 C Pulse Rate 94 94 Respiratory Rate 18 Blood Pressure 130/82 Pulse Oximetry 95 Oxygen Delivery Room Air 05/29/25 10:00 05/29/25 12:00 05/29/25 12:00 Temperature Pulse Rate 96 97 Respiratory Rate Blood Pressure Pulse Oximetry Oxygen Delivery Room Air 05/29/25 12:31 05/29/25 14:00 05/29/25 16:00 Temperature 36.1 C L Pulse Rate 98 104 H 104 H Respiratory Rate 18 Blood Pressure 129/82 Pulse Oximetry 97 Oxygen Delivery 05/29/25 16:00 05/29/25 16:40 Temperature 36.6 C Pulse Rate 104 H Respiratory Rate 16 Blood Pressure 143/80 H Pulse Oximetry 98 Oxygen Delivery Room Air Intake/Output Intake/Output: Intake & Output 05/26/25 05/27/25 05/28/25 05/29/25 23:59 23:59 23:59 23:59 Intake Total 2400 1120 Output Total 1050 Balance 2400 70 Meds/Results Medications: Active Medications Generic Name Dose Route Start Last Admin Trade Name Freq PRN Reason Stop Dose Admin Acetaminophen 500 mg 05/28/25 18:19 Acetaminophen Elixir 325 Mg/10.15 Ml Udc PO Q6H PRN fever or pain rated 1-3 Apixaban 5 mg 05/29/25 09:00 05/29/25 09:04 Apixaban 5 Mg Tablet FEED TUBE 5 mg Q12HR MERLYN Administration Citalopram Hydrobromide 30 mg 05/29/25 21:00 Citalopram Hydrobromide 10 Mg Tablet FEED TUBE HS MERLYN Doxycycline Hyclate 100 mg 05/29/25 11:30 05/29/25 11:29 Doxycycline Hyclate 100 Mg Tablet FEED TUBE 06/03/25 21:01 100 mg Q12HR MERLYN Administration Famotidine 20 mg 05/29/25 09:00 05/29/25 17:39 Famotidine 20 Mg Tablet FEED TUBE 20 mg BID MERLYN Administration Heparin Sodium (Beef Lung) 50 units 05/29/25 09:00 05/29/25 11:12 Heparin Flush 50 Units/5 Ml Syringe IV PUSH Not Given QAM MERLYN Heparin Sodium (Beef Lung) 50 units 05/29/25 09:00 Heparin Flush 50 Units/5 Ml Syringe IV PUSH PRN PRN after intermittent infusion Heparin Sodium (Beef Lung) 50 units 05/29/25 09:00 Heparin Flush 50 Units/5 Ml Syringe IV PUSH PRN PRN after blood draws Heparin Sodium (Porcine) 500 units 05/29/25 09:00 Heparin Sodium Lock Flush 500 Units/5 Ml Syringe IV PUSH PRN PRN see comments below Cefepime HCl 2 gm/ Sodium 50 mls @ 100 mls/hr 05/28/25 12:00 05/29/25 11:29 Chloride IVPB 100 mls/hr Q24H MERLYN Administration Sodium Chloride 1,000 mls @ 75 mls/hr 05/28/25 18:15 05/29/25 09:05 Normal Saline Iv IV CONT 75 mls/hr .[id number] MERLYN Administration Metoprolol Tartrate 50 mg 05/28/25 22:00 05/29/25 17:39 Metoprolol Tartrate 50 Mg Tab FEED TUBE 50 mg Q8H MERLYN Administration Oxycodone HCl 5 mg 05/28/25 22:00 05/29/25 13:28 Oxycodone Hcl (*Crx) 5 Mg Tab Ir FEED TUBE 5 mg Q8H MERLYN Administration Polyethylene Glycol 17 gm 05/29/25 09:00 05/29/25 09:05 Polyethylene Glycol 3350 17 Gm Powd.Pack FEED TUBE 17 gm QAM MERLYN Administration Pregabalin 75 mg 05/29/25 09:00 05/29/25 09:04 Pregabalin (*Crx) 75 Mg Capsule FEED TUBE 75 mg DAILY MERLYN Administration Quetiapine Fumarate 25 mg 05/29/25 09:00 05/29/25 09:04 Quetiapine Fumarate 25 Mg Tablet FEED TUBE 25 mg DAILY MERLYN Administration Senna/Docusate Sodium 1 tab 05/28/25 21:00 05/28/25 21:13 Senna/Docusate Sodium Tablet FEED TUBE 1 tab HS MERLYN Administration Sodium Bicarbonate 325 mg 05/28/25 18:25 05/29/25 17:39 Sodium Bicarbonate Tab 325 Mg Tablet FEED TUBE 325 mg BID MERLYN Administration Sodium Chloride 10 ml 05/29/25 14:00 05/29/25 12:37 Central Line Flush IV PUSH 10 ml Q8HR MERLYN Administration Sodium Hypochlorite 1 applic 05/29/25 09:00 05/29/25 09:06 Sod Hypochlorite 1/4 Strength 473 Ml TOPICAL 1 applic Q12HR MERLYN Administration Thiamine HCl 300 mg 05/29/25 09:00 05/29/25 09:04 Thiamine Hcl 100 Mg Tablet FEED TUBE 300 mg QAM MERLYN Administration Trazodone HCl 50 mg 05/29/25 21:00 Trazodone Hcl 50 Mg Tablet FEED TUBE HS MERLYN Radiology Results: ITS Impressions Chest X-Ray 05/28/25 09:36 IMPRESSION: 1: Right hilum is prominent. The finding is new. Differential includes overlapping vasculature, adenopathy, consolidation or mass. A chest CT is recommended. 2. Small to moderate-sized patchy opacities scattered throughout both lungs. Differential includes but is not limited to edema or pneumonia. Follow-up is recommended. Attention follow-up chest CT imaging. Head CT 05/28/25 09:36 Impression: 1.No acute intracranial abnormality. Chest CT 05/28/25 11:13 IMPRESSION: Bilateral pneumonia. Follow-up recommended to assess resolution. Sacrum and Coccyx X-Ray 05/29/25 10:38 Impression: 1: No acute bone or joint abnormality identified. 2: Bilateral dislocation and remodeling of the hips, likely chronic. 3: If there is concern for osteomyelitis, further evaluation with MRI of the pelvis with contrast recommended. Thoracic Spine X-Ray 05/29/25 10:42 Impression: 1: Limited study due to scoliosis and osteopenia. Mild compression deformities of T8 and T9 with possible additional compression fractures which are difficult to evaluate due to patient rotation, demineralization and immobility. 2: Diffuse bilateral airspace disease which may represent edema or pneumonia. Labs Labs: Laboratory Results - last 24 hr 05/28/25 05/28/25 05/29/25 10:51 18:59 00:51 WBC RBC Hgb 9.6 L D 8.4 L Hct 31.3 L 27.0 L MCV MCH MCHC RDW Plt Count MPV Immature Gran % (Auto) Neut % (Auto) Lymph % (Auto) [place] % (Auto) Eos % (Auto) Baso % (Auto) Lymph # (Auto) [place] # (Auto) Eos # (Auto) Baso # (Auto) Abs Immat Gran (auto) Absolute Neuts (auto) Absolute Nucleated RBC Nucleated RBC % Sodium Potassium Chloride Carbon Dioxide Anion Gap BUN Creatinine 1.99 H Estim Creat Clear Calc 22 Estimated GFR 26 L Glucose POC Capillary Glucose Calcium Crossmatch See Detail 05/29/25 05/29/25 05/29/25 06:25 12:15 12:55 WBC 14.0 H RBC 3.66 L Hgb 8.9 L 9.0 L Hct 28.7 L 29.3 L MCV 80.1 MCH 24.6 L D MCHC 30.7 L RDW 17.6 H Plt Count 357 MPV 10.1 Immature Gran % (Auto) 0.4 Neut % (Auto) 88.0 H Lymph % (Auto) 7.5 L [place] % (Auto) 2.4 L Eos % (Auto) 1.4 Baso % (Auto) 0.3 Lymph # (Auto) 1.05 [place] # (Auto) 0.3 Eos # (Auto) 0.2 Baso # (Auto) 0.0 Abs Immat Gran (auto) 0.06 H Absolute Neuts (auto) 12.3 H Absolute Nucleated RBC 0.000 Nucleated RBC % 0.0 Sodium 140 Potassium 3.3 L Chloride 111 H Carbon Dioxide 22 Anion Gap 7 BUN 69 H D Creatinine 1.86 H Estim Creat Clear Calc 24 Estimated GFR 28 L Glucose 97 POC Capillary Glucose 85 Calcium 7.8 L Crossmatch Quality VTE Prophylaxis VTE prophylaxis: mechanical ordered
[2025-05-29] MEDS: ALTEPLASE 2 MG VIAL (CATHFLO) IV PUSH (20:22)
[2025-05-29] MEDS: CITALOPRAM HYDROBROMIDE 10 MG TABLET 30 MG FEED TUBE (21:01)
[2025-05-29] MEDS: SENNA/DOCUSATE SODIUM TABLET 1 TAB FEED TUBE (21:02)
[2025-05-29 23:03] LABS: Add Urine Microscopic? YES; Appearance Urine Cloudy (Clear); Glucose Urine UA Negative (Negative); Leukocyte Esterase Ur 2+ LEU/UL (Negative); Need Manual Microscopic Reviewed; Nitrate Urine Negative (Negative); Non Pathogenic Casts 0-2; Specific Grav Ur 1.010 (1.001-1.035)
[2025-05-30] VITALS (18 sets, daily range): BP systolic 103–127; BP diastolic 67–87; PULSE 76–101; RESP 8–18; TEMP 36.1–36.5; O2SAT 96–98
[2025-05-30] MEDS: SODIUM CHLORIDE 0.9% IV 1,000 ML 75 ML IV CONT (00:10)
[2025-05-30 04:14] LABS: Hematocrit 25.2 % (37.0-47.0); Hemoglobin 7.5 g/dL (12.0-15.0); Immature Granulocyte Percent A 0.4 % (0-0.5); Lymphocytes Absolute Auto 1.33 K/mm3 (0.9-3.2); Mean Corpuscular HGB Conc 29.8 g/dl (32-36); Mean Corpuscular Hemoglobin 24.3 pg (26-34); Mean Corpuscular Volume 81.6 fl (80-100); Nucleated Red Blood Cells Absolute Auto 0.000 K/mm3 (0.0-0.012); Nucleated Red Blood Cells Perc 0.0 % (0.0-0.2); Platelet Count Result 360 k/mm3 (150-375); Red Blood Count 3.09 M/mm3 (4.2-5.4); White Blood Count 15.7 K/mm3 (4.5-10.0)
[2025-05-30 04:45] LABS: Anisocytosis 1+; Hypochromasia 1+; Microcytosis 1+ (NORMAL); Schistocytes None Seen
[2025-05-30 04:52] LABS: Alanine Aminotransferase 7 U/L (6-35); Albumin Level 2.1 g/dL (3.5-5.1); Alkaline Phosphatase 158 U/L (38-126); Anion Gap 5 mmol/L (4-12); Aspartate Amino Transferase 13 U/L (14-36); Bilirubin,Total 0.7 mg/dL (0.2-1.3); Blood Urea Nitrogen 61 mg/dL (7-17); Calcium 7.8 mg/dL (8.4-10.2); Carbon Dioxide 23 mmol/L (22-30); Chloride 112 mmol/L (98-107); Estimated CRCL calculation 26 ml/min; Estimated Glomerular Filt Rate 31; Glucose 77 mg/dL (65-110); Potassium 3.2 mmol/L (3.4-5.0); Sodium 140 mmol/L (137-145); Total Protein 6.1 g/dL (6.3-8.2)
[2025-05-30] MEDS: METOPROLOL TARTRATE 50 MG TAB FEED TUBE ×3 (06:42→21:17)
[2025-05-30] MEDS: oxyCODONE HCL (*CRX) 5 MG TAB IR FEED TUBE ×3 (06:42→21:18)
[2025-05-30] MEDS: APIXABAN 5 MG TABLET FEED TUBE ×2 (09:57→21:17)
[2025-05-30] MEDS: DOXYCYCLINE HYCLATE 100 MG TABLET FEED TUBE ×2 (09:57→21:17)
[2025-05-30] MEDS: THIAMINE HCL 100 MG TABLET 300 MG FEED TUBE (09:57)
[2025-05-30] MEDS: SODIUM BICARBONATE TAB 325 MG TABLET FEED TUBE ×2 (09:57→17:31)
[2025-05-30] MEDS: FAMOTIDINE 20 MG TABLET FEED TUBE ×2 (09:57→17:31)
[2025-05-30] MEDS: PREGABALIN (*CRX) 75 MG CAPSULE FEED TUBE (09:58)
[2025-05-30] MEDS: CEFEPIME 2 GM in SODIUM CHLORIDE 0.9% IV 50 ML 100 ML IVPB (13:26)
[2025-05-30] MEDS: POTASSIUM CHLORIDE 20 MEQ PACKET (FOR LIQUID) 40 MEQ PO (13:26)
[2025-05-30] MEDS: SOD HYPOCHLORITE 1/4 STRENGTH 473 ML 1 APPLIC TOPICAL ×2 (13:26→23:00)
--- NOTE | 2025-05-30 14:07 | PM.IMPN ---
Progress Note: A&P Assessment and Plan (1) Acute on chronic anemia: Code(s): D64.9 - Anemia, unspecified Status: Acute (2) Pneumonia: Qualifiers: Laterality: right Lung location: lower lobe of lung Pneumonia type: due to unspecified organism Qualified Code(s): J18.9 - Pneumonia, unspecified organism Code(s): J18.9 - Pneumonia, unspecified organism Status: Acute (3) Tachycardia: Code(s): R00.0 - Tachycardia, unspecified Status: Acute (4) Acute kidney injury: Code(s): N17.9 - Acute kidney failure, unspecified Status: Acute (5) Supratherapeutic INR: Code(s): R79.1 - Abnormal coagulation profile Status: Acute (6) Hypocalcemia: Code(s): E83.51 - Hypocalcemia Status: Acute (7) Essential (primary) hypertension: Code(s): I10 - Essential (primary) hypertension Status: Acute (8) Schizoaffective disorder: Code(s): F25.9 - Schizoaffective disorder, unspecified Status: Acute Plan 1. Acute hypoxia-resolved Likely secondary to pneumonia Presented with leukocytosis, WBC 17.8 on admission-down trending today 14.[address] shows bilateral pneumonia-moderate bi basilar infiltrate-minimal emphysematous change Follow strep pneumo/Legionella antigen Follow blood/urine culture Vanc deescalated to doxycycline Continue cefepime 2. Acute on chronic anemia On admission, hemoglobin was 5.4 Status post 2 unit PRBC Patient has stage IV pressure wound on the coccyx area-likely the bleeding source 3. RADHA Likely secondary to pneumonia and acute blood loss anemia IV fluid and blood transfusion Creatinine 1.86 today 4. Multiple stage states of healing Coccygeal wound Likely stage IV pressure ulcer with eschar Status post debridement by General surgery Appreciate recs from General surgery Wound care follow-up Urology consulted for [place] catheter placement due to difficult anatomy-to keep the urine flows without contaminating the wound-urology was unable to place [place]-she might need a suprapubic [place] placement Tentative plan for suprapubic [place] placement on Sunday by Urology Sacrum and coccyx x-rays negative for osteomyelitis 5. Schizoaffective disorder Continue home meds including Seroquel, trazodone, and citalopram 6. Hypertension stable 7. History of PE 2024 Patient has PEG tube Continue Eliquis 8. Hypokalemia-on replacement protocol Time Spent With Patient Time: 30 minutes Subjective Date/time seen: 05/30/25 14:07 Interval history: She has developed moderate. No acute acute event overnight. No fever or chills. Exam Narrative: APPEARANCE: No acute distress EYES: EOMI HEENT: Normocephalic, atraumatic, OMM RESPIRATORY: No respiratory distress Clear to auscultation bilaterally with no rhonchi wheezing or rales. CARDIOVASCULAR: RRR, S1 and S2 without murmurs rubs or gallops. ABDOMINAL: PEG tube noted without erythema or discharge around the insertion site, Soft, nontender, nondistended, no rebound or guarding MSK: Quadriplegia. NEURO: Awake and alert. Following commands, speech normal, no focal deficits SKIN:: Warm, dry. No rashes lesions or abrasions PSYCHIATRIC: Anxious Objective Data Vital Signs Vital Signs: Vital Signs - 24 hr 05/29/25 16:00 05/29/25 16:00 05/29/25 16:40 Temperature 36.6 C Pulse Rate 104 H 104 H Respiratory Rate 16 Blood Pressure 143/80 H Pulse Oximetry 98 Oxygen Delivery Room Air 05/29/25 18:00 05/29/25 20:00 05/29/25 20:00 Temperature 36.6 C Pulse Rate 103 H 90 Respiratory Rate 18 Blood Pressure 134/82 Pulse Oximetry 98 Oxygen Delivery Room Air 05/29/25 20:00 05/29/25 22:00 05/29/25 23:00 Temperature Pulse Rate 85 83 84 Respiratory Rate Blood Pressure Pulse Oximetry Oxygen Delivery 05/30/25 00:00 05/30/25 00:00 05/30/25 00:00 Temperature 36.5 C Pulse Rate 80 76 Respiratory Rate 16 Blood Pressure 124/82 Pulse Oximetry 98 Oxygen Delivery Room Air 05/30/25 02:00 05/30/25 04:00 05/30/25 04:00 Temperature 36.4 C Pulse Rate 77 83 Respiratory Rate 18 Blood Pressure 117/80 Pulse Oximetry 97 Oxygen Delivery Room Air 05/30/25 04:00 05/30/25 06:00 05/30/25 06:42 Temperature Pulse Rate 84 78 85 Respiratory Rate Blood Pressure Pulse Oximetry Oxygen Delivery 05/30/25 08:00 05/30/25 08:00 05/30/25 08:03 Temperature 36.5 C Pulse Rate 76 80 Respiratory Rate 18 Blood Pressure 127/87 Pulse Oximetry 98 Oxygen Delivery Room Air 05/30/25 10:00 05/30/25 11:44 05/30/25 12:00 Temperature 36.4 C Pulse Rate 86 87 82 Respiratory Rate 8 L Blood Pressure 112/72 Pulse Oximetry 97 Oxygen Delivery 05/30/25 12:00 Temperature Pulse Rate Respiratory Rate Blood Pressure Pulse Oximetry Oxygen Delivery Room Air Intake/Output Intake/Output: Intake & Output 05/27/25 05/28/25 05/29/25 05/30/25 23:59 23:59 23:59 23:59 Intake Total 2400 1440 1050 Output Total 1050 850 Balance 2400 390 200 Meds/Results Medications: Active Medications Generic Name Dose Route Start Last Admin Trade Name Freq PRN Reason Stop Dose Admin Acetaminophen 500 mg 05/28/25 18:19 Acetaminophen Elixir 325 Mg/10.15 Ml Udc PO Q6H PRN fever or pain rated 1-3 Alteplase, Recombinant 2 mg 05/29/25 19:51 05/29/25 20:22 Alteplase 2 Mg Vial (Cathflo) IV PUSH 2 mg ONCE PRN Administration Line Occlusion Apixaban 5 mg 05/29/25 09:00 05/30/25 09:57 Apixaban 5 Mg Tablet FEED TUBE 5 mg Q12HR MERLYN Administration Citalopram Hydrobromide 30 mg 05/29/25 21:00 05/29/25 21:01 Citalopram Hydrobromide 10 Mg Tablet FEED TUBE 30 mg HS MERLYN Administration Doxycycline Hyclate 100 mg 05/29/25 11:30 05/30/25 09:57 Doxycycline Hyclate 100 Mg Tablet FEED TUBE 06/03/25 21:01 100 mg Q12HR MERLYN Administration Famotidine 20 mg 05/29/25 09:00 05/30/25 09:57 Famotidine 20 Mg Tablet FEED TUBE 20 mg BID MERLYN Administration Heparin Sodium (Beef Lung) 50 units 05/29/25 09:00 05/30/25 09:58 Heparin Flush 50 Units/5 Ml Syringe IV PUSH 50 units QAM MERLYN Administration Heparin Sodium (Beef Lung) 50 units 05/29/25 09:00 Heparin Flush 50 Units/5 Ml Syringe IV PUSH PRN PRN after intermittent infusion Heparin Sodium (Beef Lung) 50 units 05/29/25 09:00 Heparin Flush 50 Units/5 Ml Syringe IV PUSH PRN PRN after blood draws Heparin Sodium (Porcine) 500 units 05/29/25 09:00 Heparin Sodium Lock Flush 500 Units/5 Ml Syringe IV PUSH PRN PRN see comments below Cefepime HCl 2 gm/ Sodium 50 mls @ 100 mls/hr 05/28/25 12:00 05/30/25 13:26 Chloride IVPB 100 mls/hr Q24H MERLYN Administration Sodium Chloride 1,000 mls @ 75 mls/hr 05/28/25 18:15 05/30/25 00:10 Normal Saline Iv IV CONT 75 mls/hr .[id number] MERLYN Administration Metoprolol Tartrate 50 mg 05/28/25 22:00 05/30/25 06:42 Metoprolol Tartrate 50 Mg Tab FEED TUBE 50 mg Q8H MERLYN Administration Oxycodone HCl 5 mg 05/28/25 22:00 05/30/25 13:26 Oxycodone Hcl (*Crx) 5 Mg Tab Ir FEED TUBE 5 mg Q8H MERLYN Administration Polyethylene Glycol 17 gm 05/29/25 09:00 05/30/25 09:58 Polyethylene Glycol 3350 17 Gm Powd.Pack FEED TUBE 17 gm QAM MERLYN Administration Pregabalin 75 mg 05/29/25 09:00 05/30/25 09:58 Pregabalin (*Crx) 75 Mg Capsule FEED TUBE 75 mg DAILY MERLYN Administration Quetiapine Fumarate 25 mg 05/29/25 09:00 05/30/25 09:58 Quetiapine Fumarate 25 Mg Tablet FEED TUBE 25 mg DAILY MERLYN Administration Senna/Docusate Sodium 1 tab 05/28/25 21:00 05/29/25 21:02 Senna/Docusate Sodium Tablet FEED TUBE 1 tab HS MERLYN Administration Sodium Bicarbonate 325 mg 05/28/25 18:25 05/30/25 09:57 Sodium Bicarbonate Tab 325 Mg Tablet FEED TUBE 325 mg BID MERLYN Administration Sodium Chloride 10 ml 05/29/25 14:00 05/30/25 06:42 Central Line Flush IV PUSH Not Given Q8HR MERLYN Sodium Hypochlorite 1 applic 05/29/25 09:00 05/30/25 13:26 Sod Hypochlorite 1/4 Strength 473 Ml TOPICAL 1 applic Q12HR MERLYN Administration Thiamine HCl 300 mg 05/29/25 09:00 05/30/25 09:57 Thiamine Hcl 100 Mg Tablet FEED TUBE 300 mg QAM MERLYN Administration Trazodone HCl 50 mg 05/29/25 21:00 05/29/25 21:01 Trazodone Hcl 50 Mg Tablet FEED TUBE 50 mg HS MERLYN Administration Radiology Results: ITS Impressions Chest X-Ray 05/28/25 09:36 IMPRESSION: 1: Right hilum is prominent. The finding is new. Differential includes overlapping vasculature, adenopathy, consolidation or mass. A chest CT is recommended. 2. Small to moderate-sized patchy opacities scattered throughout both lungs. Differential includes but is not limited to edema or pneumonia. Follow-up is recommended. Attention follow-up chest CT imaging. Head CT 05/28/25 09:36 Impression: 1.No acute intracranial abnormality. Chest CT 05/28/25 11:13 IMPRESSION: Bilateral pneumonia. Follow-up recommended to assess resolution. Sacrum and Coccyx X-Ray 05/29/25 10:38 Impression: 1: No acute bone or joint abnormality identified. 2: Bilateral dislocation and remodeling of the hips, likely chronic. 3: If there is concern for osteomyelitis, further evaluation with MRI of the pelvis with contrast recommended. Thoracic Spine X-Ray 05/29/25 10:42 Impression: 1: Limited study due to scoliosis and osteopenia. Mild compression deformities of T8 and T9 with possible additional compression fractures which are difficult to evaluate due to patient rotation, demineralization and immobility. 2: Diffuse bilateral airspace disease which may represent edema or pneumonia. Labs Labs: Laboratory Results - last 24 hr 05/29/25 05/30/25 22:43 04:03 WBC 15.7 H RBC 3.09 L Hgb 7.5 L Hct 25.2 L MCV 81.6 MCH 24.3 L MCHC 29.8 L RDW 18.2 H Plt Count 360 MPV 10.1 Immature Gran % (Auto) 0.4 Neut % (Auto) 84.4 H Lymph % (Auto) 8.5 L [place] % (Auto) 3.1 Eos % (Auto) 3.3 Baso % (Auto) 0.3 Lymph # (Auto) 1.33 [place] # (Auto) 0.5 Eos # (Auto) 0.5 H Baso # (Auto) 0.1 Abs Immat Gran (auto) 0.07 H Absolute Neuts (auto) 13.2 H Absolute Nucleated RBC 0.000 Band Neutrophils % Not Reportable Nucleated RBC % 0.0 Platelet Estimate Increased Hypochromasia 1+ Anisocytosis 1+ Microcytosis 1+ Schistocytes None seen Sodium 140 Potassium 3.2 L Chloride 112 H Carbon Dioxide 23 Anion Gap 5 BUN 61 H Creatinine 1.71 H Estim Creat Clear Calc 26 Estimated GFR 31 L Glucose 77 Calcium 7.8 L Total Bilirubin 0.7 AST 13 L ALT 7 Alkaline Phosphatase 158 H Total Protein 6.1 L Albumin 2.1 L Urine Color Yellow Urine Appearance Cloudy H Urine pH 7.5 Ur Specific [place] 1.010 Urine Protein 1+ H Urine Glucose (UA) Negative Urine Ketones Negative Ur Blood (Man) 3+ H Urine Nitrate Negative Urine Bilirubin Negative Urine Urobilinogen 0.2 Add Ur Microanalysis Reviewed Leukocyte Esterase Rfl 2+ H Urine RBC >100 H Urine WBC 0-5 Ur Squamous Epith Cells None seen Urine Bacteria None seen Urine Casts 0-2 Quality VTE Prophylaxis VTE prophylaxis: pharmacologic ordered (Eliquis)
[2025-05-30] MEDS: CENTRAL LINE FLUSH 10 ML IV PUSH ×2 (17:32→21:36)
[2025-05-30] MEDS: SENNA/DOCUSATE SODIUM TABLET 1 TAB FEED TUBE (21:17)
[2025-05-30] MEDS: CITALOPRAM HYDROBROMIDE 10 MG TABLET 30 MG FEED TUBE (21:17)
[2025-05-31] VITALS (28 sets, daily range): BP systolic 100–143; BP diastolic 64–84; PULSE 69–110; RESP 12–20; TEMP 36.3–37.1; O2SAT 95–100
[2025-05-31 04:14] LABS: Hematocrit 22.8 % (37.0-47.0); Immature Granulocyte Percent A 0.8 % (0-0.5); Lymphocytes Absolute Auto 1.68 K/mm3 (0.9-3.2); Mean Corpuscular HGB Conc 29.4 g/dl (32-36); Mean Corpuscular Hemoglobin 24.5 pg (26-34); Mean Corpuscular Volume 83.2 fl (80-100); Nucleated Red Blood Cells Absolute Auto 0.000 K/mm3 (0.0-0.012); Nucleated Red Blood Cells Perc 0.0 % (0.0-0.2); Platelet Count Result 331 k/mm3 (150-375); Red Blood Count 2.74 M/mm3 (4.2-5.4); White Blood Count 12.0 K/mm3 (4.5-10.0)
[2025-05-31 04:35] LABS: Alanine Aminotransferase 7 U/L (6-35); Albumin Level 1.9 g/dL (3.5-5.1); Alkaline Phosphatase 133 U/L (38-126); Anion Gap 4 mmol/L (4-12); Aspartate Amino Transferase 12 U/L (14-36); Bilirubin,Total 0.4 mg/dL (0.2-1.3); Blood Urea Nitrogen 53 mg/dL (7-17); Calcium 7.7 mg/dL (8.4-10.2); Carbon Dioxide 21 mmol/L (22-30); Chloride 117 mmol/L (98-107); Estimated CRCL calculation 29 ml/min; Estimated Glomerular Filt Rate 35; Glucose 71 mg/dL (65-110); Potassium 3.9 mmol/L (3.4-5.0); Sodium 142 mmol/L (137-145); Total Protein 5.5 g/dL (6.3-8.2)
[2025-05-31 04:51] LABS: Hemoglobin 6.7 g/dL (12.0-15.0)
[2025-05-31 04:53] LABS: Anisocytosis 1+; Hypochromasia 2+; Schistocytes None Seen
[2025-05-31] MEDS: SODIUM CHLORIDE 0.9% IV 1,000 ML 75 ML IV CONT ×2 (05:11→05:12)
[2025-05-31] MEDS: oxyCODONE HCL (*CRX) 5 MG TAB IR FEED TUBE ×3 (05:31→21:31)
[2025-05-31] MEDS: METOPROLOL TARTRATE 50 MG TAB FEED TUBE (05:33)
--- NOTE | 2025-05-31 07:30 | PC.NURSE ---
This RN left a message with general Surgery regarding bleeding to left ishum.
[2025-05-31] MEDS: FAMOTIDINE 20 MG TABLET FEED TUBE ×2 (08:49→17:14)
[2025-05-31] MEDS: DOXYCYCLINE HYCLATE 100 MG TABLET FEED TUBE ×2 (08:50→21:30)
[2025-05-31] MEDS: PREGABALIN (*CRX) 75 MG CAPSULE FEED TUBE (08:50)
[2025-05-31] MEDS: APIXABAN 5 MG TABLET FEED TUBE (08:50)
[2025-05-31] MEDS: SODIUM BICARBONATE TAB 325 MG TABLET FEED TUBE ×2 (08:50→17:14)
[2025-05-31] MEDS: THIAMINE HCL 100 MG TABLET 300 MG FEED TUBE (08:51)
[2025-05-31] MEDS: TUBING, BLOOD PLUM PUMP TUBING 1 EACH XX (08:51)
[2025-05-31] MEDS: SODIUM CHLORIDE 0.9% IV 250 ML 30 ML IV CONT (08:52)
[2025-05-31] MEDS: SOD HYPOCHLORITE 1/4 STRENGTH 473 ML 1 APPLIC TOPICAL (10:06)
[2025-05-31] MEDS: CEFEPIME 2 GM in SODIUM CHLORIDE 0.9% IV 50 ML 100 ML IVPB (12:04)
--- NOTE | 2025-05-31 13:00 | PC.NURSE ---
dr cummings here, dr used silver nitrate on left sacral wound and repacked with 5x9 iodoform gauze and 4x4 gauze pads, covered with abd pads, dr cummings says to call him if she bleeds through the dressing within the next few hours
--- NOTE | 2025-05-31 15:15 | PC.NURSE ---
dr cummings notified that pt has soaked through bandages and pad, fresh pads put underneath her, supplied gathered for to repack wounds
[2025-05-31 15:48] LABS: Prothrombin Time 48.2 Seconds (11.1-14.7)
[2025-05-31 15:50] LABS: Partial Thromboplastin Time 101.2 Seconds (22.3-36.8)
--- NOTE | 2025-05-31 15:59 | PM.IMPN ---
Progress Note: A&P Assessment and Plan (1) Acute on chronic anemia: Code(s): D64.9 - Anemia, unspecified Status: Acute (2) Pneumonia: Qualifiers: Laterality: right Lung location: lower lobe of lung Pneumonia type: due to unspecified organism Qualified Code(s): J18.9 - Pneumonia, unspecified organism Code(s): J18.9 - Pneumonia, unspecified organism Status: Acute (3) Tachycardia: Code(s): R00.0 - Tachycardia, unspecified Status: Acute (4) Acute kidney injury: Code(s): N17.9 - Acute kidney failure, unspecified Status: Acute (5) Supratherapeutic INR: Code(s): R79.1 - Abnormal coagulation profile Status: Acute (6) Hypocalcemia: Code(s): E83.51 - Hypocalcemia Status: Acute (7) Essential (primary) hypertension: Code(s): I10 - Essential (primary) hypertension Status: Acute (8) Schizoaffective disorder: Code(s): F25.9 - Schizoaffective disorder, unspecified Status: Acute Plan 1. Acute hypoxia-resolved Likely secondary to pneumonia Presented with leukocytosis, WBC 17.8 on admission-down trending today 14.[address] shows bilateral pneumonia-moderate bi basilar infiltrate-minimal emphysematous change Follow strep pneumo/Legionella antigen Follow blood/urine culture Vanc deescalated to doxycycline Continue cefepime 2. Acute on chronic anemia On admission, hemoglobin was 5.4 Today hemoglobin was 6.7, she received 2 units of PRBC Likely bleeding source is from the I&D site. We might need a surgeon to cauterize it. Patient has stage IV pressure wound on the coccyx area-likely the bleeding source 3. RADHA Likely secondary to pneumonia and acute blood loss anemia IV fluid and blood transfusion Creatinine 1.86 today 4. Multiple stage states of healing Coccygeal wound Likely stage IV pressure ulcer with eschar Status post debridement by General surgery Appreciate recs from General surgery Wound care follow-up Urology consulted for [place] catheter placement due to difficult anatomy-to keep the urine flows without contaminating the wound-urology was unable to place [place]-she might need a suprapubic [place] placement Tentative plan for suprapubic [place] placement on Sunday by Urology Sacrum and coccyx x-rays negative for osteomyelitis 5. Schizoaffective disorder Continue home meds including Seroquel, trazodone, and citalopram 6. Hypertension stable 7. History of PE 2024 Patient has PEG tube Continue Eliquis 8. Hypokalemia-on replacement protocol Time Spent With Patient Time: 20 minutes Subjective Date/time seen: 05/31/25 15:59 Interval history: Overnight her hemoglobin drops to 6.7. She received 2 units of PRBC. Her I&D site is bleeding. Nurse applied gauze. Will talk to surgery. She denies chest pain/shortness of breath/chest palpitation. Review of Systems Review of Systems: All systems reviewed & are unremarkable except as noted in HPI and below Exam Narrative: APPEARANCE: Lying in bed comfortably EYES: EOMI HEENT: Normocephalic, atraumatic, OMM RESPIRATORY: No respiratory distress Clear to auscultation bilaterally with no rhonchi wheezing or rales. CARDIOVASCULAR: RRR, S1 and S2 without murmurs rubs or gallops. ABDOMINAL: Soft, nontender, nondistended, no rebound or guarding MSK: Quadriplegia. NEURO: Awake and alert. Following commands, speech normal, no focal deficits SKIN:: Warm, dry. No rashes lesions or abrasions PSYCHIATRIC: Bright affect Objective Data Vital Signs Vital Signs: Vital Signs - 24 hr 05/30/25 16:00 05/30/25 16:00 05/30/25 16:55 Temperature 36.1 C L Pulse Rate 98 98 Respiratory Rate 18 Blood Pressure 103/69 Pulse Oximetry 98 Oxygen Delivery Room Air 05/30/25 18:00 05/30/25 20:00 05/30/25 20:00 Temperature 36.5 C Pulse Rate 96 100 93 Respiratory Rate 18 Blood Pressure 107/67 Pulse Oximetry 96 Oxygen Delivery 05/30/25 20:00 05/30/25 21:17 05/30/25 22:00 Temperature Pulse Rate 93 89 Respiratory Rate Blood Pressure Pulse Oximetry Oxygen Delivery Room Air 05/31/25 00:00 05/31/25 00:00 05/31/25 00:00 Temperature 36.9 C Pulse Rate 84 80 Respiratory Rate 16 Blood Pressure 125/79 Pulse Oximetry 98 Oxygen Delivery Room Air 05/31/25 02:00 05/31/25 04:00 05/31/25 04:00 Temperature Pulse Rate 76 80 Respiratory Rate Blood Pressure Pulse Oximetry Oxygen Delivery Room Air 05/31/25 04:00 05/31/25 05:33 05/31/25 06:00 Temperature 36.9 C Pulse Rate 86 87 84 Respiratory Rate 20 Blood Pressure 129/72 Pulse Oximetry 97 Oxygen Delivery 05/31/25 06:38 05/31/25 06:53 05/31/25 07:53 Temperature 36.6 C 36.6 C 36.3 C L Pulse Rate 79 76 71 Respiratory Rate 16 16 16 Blood Pressure 143/84 H 130/77 113/70 Pulse Oximetry 98 99 98 Oxygen Delivery 05/31/25 08:00 05/31/25 08:00 05/31/25 08:12 Temperature 36.5 C Pulse Rate 75 69 Respiratory Rate 16 Blood Pressure 122/77 Pulse Oximetry 100 98 Oxygen Delivery Room Air 05/31/25 08:53 05/31/25 09:53 05/31/25 10:00 Temperature 36.4 C L 36.4 C L Pulse Rate 75 80 76 Respiratory Rate 16 18 Blood Pressure 110/71 137/78 Pulse Oximetry 97 98 Oxygen Delivery 05/31/25 10:29 05/31/25 10:44 05/31/25 11:44 Temperature 36.3 C L 36.7 C 36.4 C Pulse Rate 75 90 79 Respiratory Rate 16 20 18 Blood Pressure 120/71 114/77 102/79 Pulse Oximetry 98 97 97 Oxygen Delivery 05/31/25 12:00 05/31/25 12:00 05/31/25 13:05 Temperature 37.1 C 36.3 C L Pulse Rate 86 83 89 Respiratory Rate 20 16 Blood Pressure 120/73 104/71 Pulse Oximetry 97 97 Oxygen Delivery 05/31/25 14:45 Temperature Pulse Rate Respiratory Rate Blood Pressure 104/64 Pulse Oximetry Oxygen Delivery Intake/Output Intake/Output: Intake & Output 05/28/25 05/29/25 05/30/25 05/31/25 23:59 23:59 23:59 23:59 Intake Total 2400 1440 2320 1337.5 Output Total 1050 1200 500 Balance 2400 390 1120 837.5 Meds/Results Medications: Active Medications Generic Name Dose Route Start Last Admin Trade Name Freq PRN Reason Stop Dose Admin Acetaminophen 500 mg 05/28/25 18:19 Acetaminophen Elixir 325 Mg/10.15 Ml Udc PO Q6H PRN fever or pain rated 1-3 Alteplase, Recombinant 2 mg 05/29/25 19:51 05/29/25 20:22 Alteplase 2 Mg Vial (Cathflo) IV PUSH 2 mg ONCE PRN Administration Line Occlusion Apixaban 5 mg 05/29/25 09:00 05/31/25 08:50 Apixaban 5 Mg Tablet FEED TUBE 5 mg On Hold: 05/31/25 15:02 Q12HR MERLYN Administration Citalopram Hydrobromide 30 mg 05/29/25 21:00 05/30/25 21:17 Citalopram Hydrobromide 10 Mg Tablet FEED TUBE 30 mg HS MERLYN Administration Doxycycline Hyclate 100 mg 05/29/25 11:30 05/31/25 08:50 Doxycycline Hyclate 100 Mg Tablet FEED TUBE 06/03/25 21:01 100 mg Q12HR MERLYN Administration Famotidine 20 mg 05/29/25 09:00 05/31/25 08:49 Famotidine 20 Mg Tablet FEED TUBE 20 mg BID MERLYN Administration Heparin Sodium (Beef Lung) 50 units 05/29/25 09:00 05/31/25 11:57 Heparin Flush 50 Units/5 Ml Syringe IV PUSH Not Given QAM MERLYN Heparin Sodium (Beef Lung) 50 units 05/29/25 09:00 Heparin Flush 50 Units/5 Ml Syringe IV PUSH PRN PRN after intermittent infusion Heparin Sodium (Beef Lung) 50 units 05/29/25 09:00 Heparin Flush 50 Units/5 Ml Syringe IV PUSH PRN PRN after blood draws Heparin Sodium (Porcine) 500 units 05/29/25 09:00 Heparin Sodium Lock Flush 500 Units/5 Ml Syringe IV PUSH PRN PRN see comments below Cefepime HCl 2 gm/ Sodium 50 mls @ 100 mls/hr 05/28/25 12:00 05/31/25 12:34 Chloride IVPB Infused Q24H MERLYN Infusion Sodium Chloride 1,000 mls @ 75 mls/hr 05/28/25 18:15 05/31/25 13:20 Normal Saline Iv IV CONT 75 mls/hr .[id number] MERLYN Infusion Sodium Chloride 250 mls @ 30 mls/hr 05/31/25 08:48 05/31/25 14:26 Normal Saline Iv IV CONT 05/31/25 17:07 Not Given .Q8H20M STA Metoprolol Tartrate 50 mg 05/28/25 22:00 05/31/25 05:33 Metoprolol Tartrate 50 Mg Tab FEED TUBE 50 mg Q8H MERLYN Administration Oxycodone HCl 5 mg 05/28/25 22:00 05/31/25 14:40 Oxycodone Hcl (*Crx) 5 Mg Tab Ir FEED TUBE 5 mg Q8H MERLYN Administration Polyethylene Glycol 17 gm 05/29/25 09:00 05/31/25 08:49 Polyethylene Glycol 3350 17 Gm Powd.Pack FEED TUBE 17 gm QAM MERLYN Administration Pregabalin 75 mg 05/29/25 09:00 05/31/25 08:50 Pregabalin (*Crx) 75 Mg Capsule FEED TUBE 75 mg DAILY MERLYN Administration Quetiapine Fumarate 25 mg 05/29/25 09:00 05/31/25 08:50 Quetiapine Fumarate 25 Mg Tablet FEED TUBE 25 mg DAILY MERLYN Administration Senna/Docusate Sodium 1 tab 05/28/25 21:00 05/30/25 21:17 Senna/Docusate Sodium Tablet FEED TUBE 1 tab HS MERLYN Administration Sodium Bicarbonate 325 mg 05/28/25 18:25 05/31/25 08:50 Sodium Bicarbonate Tab 325 Mg Tablet FEED TUBE 325 mg BID MERLYN Administration Sodium Chloride 10 ml 05/29/25 14:00 05/31/25 08:13 Central Line Flush IV PUSH Not Given Q8HR MERLYN Sodium Hypochlorite 1 applic 05/29/25 09:00 05/31/25 10:06 Sod Hypochlorite 1/4 Strength 473 Ml TOPICAL 1 applic Q12HR MERLYN Administration Thiamine HCl 300 mg 05/29/25 09:00 05/31/25 08:51 Thiamine Hcl 100 Mg Tablet FEED TUBE 300 mg QAM MERLYN Administration Trazodone HCl 50 mg 05/29/25 21:00 05/30/25 21:18 Trazodone Hcl 50 Mg Tablet FEED TUBE 50 mg HS MERLYN Administration Radiology Results: ITS Impressions Chest X-Ray 05/28/25 09:36 IMPRESSION: 1: Right hilum is prominent. The finding is new. Differential includes overlapping vasculature, adenopathy, consolidation or mass. A chest CT is recommended. 2. Small to moderate-sized patchy opacities scattered throughout both lungs. Differential includes but is not limited to edema or pneumonia. Follow-up is recommended. Attention follow-up chest CT imaging. Head CT 05/28/25 09:36 Impression: 1.No acute intracranial abnormality. Chest CT 05/28/25 11:13 IMPRESSION: Bilateral pneumonia. Follow-up recommended to assess resolution. Sacrum and Coccyx X-Ray 05/29/25 10:38 Impression: 1: No acute bone or joint abnormality identified. 2: Bilateral dislocation and remodeling of the hips, likely chronic. 3: If there is concern for osteomyelitis, further evaluation with MRI of the pelvis with contrast recommended. Thoracic Spine X-Ray 05/29/25 10:42 Impression: 1: Limited study due to scoliosis and osteopenia. Mild compression deformities of T8 and T9 with possible additional compression fractures which are difficult to evaluate due to patient rotation, demineralization and immobility. 2: Diffuse bilateral airspace disease which may represent edema or pneumonia. Labs Labs: Laboratory Results - last 24 hr 05/28/25 05/31/25 10:51 04:06 WBC 12.0 H RBC 2.74 L Hgb 6.7 L* Hct 22.8 L MCV 83.2 MCH 24.5 L MCHC 29.4 L RDW 18.9 H Plt Count 331 MPV 10.8 H Immature Gran % (Auto) 0.8 H Neut % (Auto) 75.7 H Lymph % (Auto) 14.0 L [place] % (Auto) 4.9 Eos % (Auto) 4.3 Baso % (Auto) 0.3 Lymph # (Auto) 1.68 [place] # (Auto) 0.6 Eos # (Auto) 0.5 H Baso # (Auto) 0.0 Abs Immat Gran (auto) 0.10 H Absolute Neuts (auto) 9.0 H Absolute Nucleated RBC 0.000 Band Neutrophils % Not Reportable Nucleated RBC % 0.0 Platelet Estimate Adequate Hypochromasia 2+ Anisocytosis 1+ Schistocytes None seen Sodium 142 Potassium 3.9 Chloride 117 H Carbon Dioxide 21 L Anion Gap 4 BUN 53 H Creatinine 1.51 H Estim Creat Clear Calc 29 Estimated GFR 35 L Glucose 71 Calcium 7.7 L Total Bilirubin 0.4 AST 12 L ALT 7 Alkaline Phosphatase 133 H Total Protein 5.5 L Albumin 1.9 L Blood Type O Positive Antibody Screen Negative Crossmatch See Detail Quality VTE Prophylaxis VTE prophylaxis: pharmacologic ordered (Eliquis)
[2025-05-31 16:01] LABS: INR 5.6
--- NOTE | 2025-05-31 16:40 | P.PNGS_ITS ---
Progress Note: A&P Assessment and Plan (1) Pressure ulcers of skin of multiple topographic sites: Code(s): L89.90 - Pressure ulcer of unspecified site, unspecified stage Status: Chronic (2) Contracture of muscles of both lower extremities: Code(s): M62.461 - Contracture of muscle, right lower leg; M62.462 - Contracture of muscle, left lower leg Status: Chronic (3) Decubitus ulcer, infected: Qualifiers: Pressure injury stage: stage 4 Qualified Code(s): L89.94 - Pressure ulcer of unspecified site, stage 4; L08.9 - Local infection of the skin and subcutaneous tissue, unspecified Code(s): L89.90 - Pressure ulcer of unspecified site, unspecified stage; L08.9 - Local infection of the skin and subcutaneous tissue, unspecified Status: Chronic Assessment and Plan: Left ischial decubitus debrided at bedside without incident 2 days ago. Notified today that this has been bleeding. Patient very anemic and to get you 2 units of packed cells. I treated the decubitus with silver nitrate and then repacked it with Xeroform gauze and 4 x 4 gauze. There was no obvious site of bleeding which is concerning for rebleed. Nurses asked to call me if this dressing should soak through. Subjective Subjective Date/Time Seen: 05/31/25 13:40 Post Op day: 2 Patient reports: afebrile and other (Bleeding from left ischial wound) Interval history: I was called this morning that patient had saturated her left ischial wound dressing with blood. She has become anemic again and is to receive 2 units of packed cells. Exam Const: General: alert and awake Nutritional Appearance: underweight Back/Spine/Pelvis: Sacroiliac joints: on the left (Dressing saturated, packing removed. No obvious bleeding site) other (Silver nitrate used on 3-4 sites. ) Other: Left ischial decubitus wound repacked with Xeroform gauze at the base and multiple 4x4s followed by ABDs and tape. Extrem: Other: Multiple lower extremity contractures and decubiti. Unchanged from 05/29/2025. Psych: Speech and movement: Clear speech present Affect: Anxious affect present Thought process: Illogical thought process present Insight: Poor insight present (Psych) Judgement: Poor judgement present (Psych) Objective Data Vital Signs Vital Signs: Vital Signs - 24 hr 05/30/25 16:55 05/30/25 18:00 05/30/25 20:00 Temperature 36.1 C L 36.5 C Pulse Rate 98 96 100 Respiratory Rate 18 18 Blood Pressure 103/69 107/67 Pulse Oximetry 98 96 Oxygen Delivery 05/30/25 20:00 05/30/25 20:00 05/30/25 21:17 Temperature Pulse Rate 93 93 Respiratory Rate Blood Pressure Pulse Oximetry Oxygen Delivery Room Air 05/30/25 22:00 05/31/25 00:00 05/31/25 00:00 Temperature 36.9 C Pulse Rate 89 84 Respiratory Rate 16 Blood Pressure 125/79 Pulse Oximetry 98 Oxygen Delivery Room Air 05/31/25 00:00 05/31/25 02:00 05/31/25 04:00 Temperature Pulse Rate 80 76 80 Respiratory Rate Blood Pressure Pulse Oximetry Oxygen Delivery 05/31/25 04:00 05/31/25 04:00 05/31/25 05:33 Temperature 36.9 C Pulse Rate 86 87 Respiratory Rate 20 Blood Pressure 129/72 Pulse Oximetry 97 Oxygen Delivery Room Air 05/31/25 06:00 05/31/25 06:38 05/31/25 06:53 Temperature 36.6 C 36.6 C Pulse Rate 84 79 76 Respiratory Rate 16 16 Blood Pressure 143/84 H 130/77 Pulse Oximetry 98 99 Oxygen Delivery 05/31/25 07:53 05/31/25 08:00 05/31/25 08:00 Temperature 36.3 C L 36.5 C Pulse Rate 71 75 69 Respiratory Rate 16 16 Blood Pressure 113/70 122/77 Pulse Oximetry 98 100 Oxygen Delivery 05/31/25 08:12 05/31/25 08:53 05/31/25 09:53 Temperature 36.4 C L 36.4 C L Pulse Rate 75 80 Respiratory Rate 16 18 Blood Pressure 110/71 137/78 Pulse Oximetry 98 97 98 Oxygen Delivery Room Air 05/31/25 10:00 05/31/25 10:29 05/31/25 10:44 Temperature 36.3 C L 36.7 C Pulse Rate 76 75 90 Respiratory Rate 16 20 Blood Pressure 120/71 114/77 Pulse Oximetry 98 97 Oxygen Delivery 05/31/25 11:44 05/31/25 12:00 05/31/25 12:00 Temperature 36.4 C 37.1 C Pulse Rate 79 86 83 Respiratory Rate 18 20 Blood Pressure 102/79 120/73 Pulse Oximetry 97 97 Oxygen Delivery 05/31/25 13:05 05/31/25 14:45 Temperature 36.3 C L Pulse Rate 89 Respiratory Rate 16 Blood Pressure 104/71 104/64 Pulse Oximetry 97 Oxygen Delivery Intake/Output Intake/Output: Intake & Output 05/28/25 05/29/25 05/30/25 05/31/25 23:59 23:59 23:59 23:59 Intake Total 2400 1440 2320 1337.5 Output Total 1050 1200 500 Balance 2400 390 1120 837.5 Meds/Results Medications: Active Medications Generic Name Dose Route Start Last Admin Trade Name Freq PRN Reason Stop Dose Admin Acetaminophen 500 mg 05/28/25 18:19 Acetaminophen Elixir 325 Mg/10.15 Ml Udc PO Q6H PRN fever or pain rated 1-3 Alteplase, Recombinant 2 mg 05/29/25 19:51 05/29/25 20:22 Alteplase 2 Mg Vial (Cathflo) IV PUSH 2 mg ONCE PRN Administration Line Occlusion Apixaban 5 mg 05/29/25 09:00 05/31/25 08:50 Apixaban 5 Mg Tablet FEED TUBE 5 mg On Hold: 05/31/25 15:02 Q12HR MERLYN Administration Citalopram Hydrobromide 30 mg 05/29/25 21:00 05/30/25 21:17 Citalopram Hydrobromide 10 Mg Tablet FEED TUBE 30 mg HS MERLYN Administration Doxycycline Hyclate 100 mg 05/29/25 11:30 05/31/25 08:50 Doxycycline Hyclate 100 Mg Tablet FEED TUBE 06/03/25 21:01 100 mg Q12HR MERLYN Administration Famotidine 20 mg 05/29/25 09:00 05/31/25 08:49 Famotidine 20 Mg Tablet FEED TUBE 20 mg BID MERLYN Administration Heparin Sodium (Beef Lung) 50 units 05/29/25 09:00 05/31/25 11:57 Heparin Flush 50 Units/5 Ml Syringe IV PUSH Not Given QAM MERLYN Heparin Sodium (Beef Lung) 50 units 05/29/25 09:00 Heparin Flush 50 Units/5 Ml Syringe IV PUSH PRN PRN after intermittent infusion Heparin Sodium (Beef Lung) 50 units 05/29/25 09:00 Heparin Flush 50 Units/5 Ml Syringe IV PUSH PRN PRN after blood draws Heparin Sodium (Porcine) 500 units 05/29/25 09:00 Heparin Sodium Lock Flush 500 Units/5 Ml Syringe IV PUSH PRN PRN see comments below Cefepime HCl 2 gm/ Sodium 50 mls @ 100 mls/hr 05/28/25 12:00 05/31/25 12:34 Chloride IVPB Infused Q24H MERLYN Infusion Sodium Chloride 1,000 mls @ 75 mls/hr 05/28/25 18:15 05/31/25 13:20 Normal Saline Iv IV CONT 75 mls/hr .[id number] MERLYN Infusion Sodium Chloride 250 mls @ 30 mls/hr 05/31/25 08:48 05/31/25 14:26 Normal Saline Iv IV CONT 05/31/25 17:07 Not Given .Q8H20M STA Phytonadione 5 mg/ Dextrose 50.5 mls @ 100 mls/hr 05/31/25 16:34 IVPB 05/31/25 17:04 ONCE ONE Metoprolol Tartrate 50 mg 05/28/25 22:00 05/31/25 05:33 Metoprolol Tartrate 50 Mg Tab FEED TUBE 50 mg Q8H MERLYN Administration Oxycodone HCl 5 mg 05/28/25 22:00 05/31/25 14:40 Oxycodone Hcl (*Crx) 5 Mg Tab Ir FEED TUBE 5 mg Q8H MERLYN Administration Polyethylene Glycol 17 gm 05/29/25 09:00 05/31/25 08:49 Polyethylene Glycol 3350 17 Gm Powd.Pack FEED TUBE 17 gm QAM MERLYN Administration Pregabalin 75 mg 05/29/25 09:00 05/31/25 08:50 Pregabalin (*Crx) 75 Mg Capsule FEED TUBE 75 mg DAILY MERLYN Administration Quetiapine Fumarate 25 mg 05/29/25 09:00 05/31/25 08:50 Quetiapine Fumarate 25 Mg Tablet FEED TUBE 25 mg DAILY MERLYN Administration Senna/Docusate Sodium 1 tab 05/28/25 21:00 05/30/25 21:17 Senna/Docusate Sodium Tablet FEED TUBE 1 tab HS MERLYN Administration Sodium Bicarbonate 325 mg 05/28/25 18:25 05/31/25 08:50 Sodium Bicarbonate Tab 325 Mg Tablet FEED TUBE 325 mg BID MERLYN Administration Sodium Chloride 10 ml 05/29/25 14:00 05/31/25 08:13 Central Line Flush IV PUSH Not Given Q8HR MERLYN Sodium Hypochlorite 1 applic 05/29/25 09:00 05/31/25 10:06 Sod Hypochlorite 1/4 Strength 473 Ml TOPICAL 1 applic Q12HR MERLYN Administration Thiamine HCl 300 mg 05/29/25 09:00 05/31/25 08:51 Thiamine Hcl 100 Mg Tablet FEED TUBE 300 mg QAM MERLYN Administration Trazodone HCl 50 mg 05/29/25 21:00 05/30/25 21:18 Trazodone Hcl 50 Mg Tablet FEED TUBE 50 mg HS MERLYN Administration Radiology Results: ITS Impressions Chest X-Ray 05/28/25 09:36 IMPRESSION: 1: Right hilum is prominent. The finding is new. Differential includes overlapping vasculature, adenopathy, consolidation or mass. A chest CT is recommended. 2. Small to moderate-sized patchy opacities scattered throughout both lungs. Differential includes but is not limited to edema or pneumonia. Follow-up is recommended. Attention follow-up chest CT imaging. Head CT 05/28/25 09:36 Impression: 1.No acute intracranial abnormality. Chest CT 05/28/25 11:13 IMPRESSION: Bilateral pneumonia. Follow-up recommended to assess resolution. Sacrum and Coccyx X-Ray 05/29/25 10:38 Impression: 1: No acute bone or joint abnormality identified. 2: Bilateral dislocation and remodeling of the hips, likely chronic. 3: If there is concern for osteomyelitis, further evaluation with MRI of the pelvis with contrast recommended. Thoracic Spine X-Ray 05/29/25 10:42 Impression: 1: Limited study due to scoliosis and osteopenia. Mild compression deformities of T8 and T9 with possible additional compression fractures which are difficult to evaluate due to patient rotation, demineralization and immobility. 2: Diffuse bilateral airspace disease which may represent edema or pneumonia. Labs Labs: Laboratory Results - last 24 hr 05/28/25 05/31/25 05/31/25 10:51 04:06 15:29 WBC 12.0 H RBC 2.74 L Hgb 6.7 L* Hct 22.8 L MCV 83.2 MCH 24.5 L MCHC 29.4 L RDW 18.9 H Plt Count 331 MPV 10.8 H Immature Gran % (Auto) 0.8 H Neut % (Auto) 75.7 H Lymph % (Auto) 14.0 L [place] % (Auto) 4.9 Eos % (Auto) 4.3 Baso % (Auto) 0.3 Lymph # (Auto) 1.68 [place] # (Auto) 0.6 Eos # (Auto) 0.5 H Baso # (Auto) 0.0 Abs Immat Gran (auto) 0.10 H Absolute Neuts (auto) 9.0 H Absolute Nucleated RBC 0.000 Band Neutrophils % Not Reportable Nucleated RBC % 0.0 Platelet Estimate Adequate Hypochromasia 2+ Anisocytosis 1+ Schistocytes None seen PT 48.2 H D INR 5.6 H* APTT 101.2 H Sodium 142 Potassium 3.9 Chloride 117 H Carbon Dioxide 21 L Anion Gap 4 BUN 53 H Creatinine 1.51 H Estim Creat Clear Calc 29 Estimated GFR 35 L Glucose 71 Calcium 7.7 L Total Bilirubin 0.4 AST 12 L ALT 7 Alkaline Phosphatase 133 H Total Protein 5.5 L Albumin 1.9 L Blood Type O Positive Antibody Screen Negative Crossmatch See Detail
[2025-05-31] MEDS: PREMIXIV IV CONT (17:14)
[2025-05-31] MEDS: HUMAN PROTHROMBIN COMPLEX IV CONT (17:14)
[2025-05-31] MEDS: CENTRAL LINE FLUSH 10 ML IV PUSH ×2 (17:15→21:31)
[2025-05-31] MEDS: PHYTONADIONE ADULT INJ 10 MG in DEXTROSE 5% IN WATER 50 ML 100 MG IVPB (17:49)
[2025-05-31 18:01] LABS: Hematocrit 29.1 % (37.0-47.0); Hemoglobin 9.3 g/dL (12.0-15.0)
[2025-05-31] MEDS: CITALOPRAM HYDROBROMIDE 10 MG TABLET 30 MG FEED TUBE (21:29)
[2025-05-31] MEDS: SENNA/DOCUSATE SODIUM TABLET 1 TAB FEED TUBE (21:29)
[2025-06-01] VITALS (16 sets, daily range): BP systolic 113–121; BP diastolic 71–80; PULSE 74–99; RESP 16–18; TEMP 36.4–37.6; O2SAT 96–99
[2025-06-01] MEDS: SODIUM CHLORIDE 0.9% IV 1,000 ML 75 ML IV CONT ×2 (00:28→14:21)
[2025-06-01 03:45] LABS: Hematocrit 26.0 % (37.0-47.0); Hemoglobin 8.3 g/dL (12.0-15.0); Immature Granulocyte Percent A 0.6 % (0-0.5); Lymphocytes Absolute Auto 1.92 K/mm3 (0.9-3.2); Mean Corpuscular HGB Conc 31.9 g/dl (32-36); Mean Corpuscular Hemoglobin 26.9 pg (26-34); Mean Corpuscular Volume 84.4 fl (80-100); Nucleated Red Blood Cells Absolute Auto 0.000 K/mm3 (0.0-0.012); Nucleated Red Blood Cells Perc 0.0 % (0.0-0.2); Platelet Count Result 288 k/mm3 (150-375); Red Blood Count 3.08 M/mm3 (4.2-5.4); White Blood Count 10.3 K/mm3 (4.5-10.0)
[2025-06-01 04:04] LABS: Alanine Aminotransferase 7 U/L (6-35); Albumin Level 1.8 g/dL (3.5-5.1); Alkaline Phosphatase 119 U/L (38-126); Anion Gap 6 mmol/L (4-12); Aspartate Amino Transferase 14 U/L (14-36); Bilirubin,Total 0.6 mg/dL (0.2-1.3); Blood Urea Nitrogen 46 mg/dL (7-17); Calcium 7.6 mg/dL (8.4-10.2); Carbon Dioxide 19 mmol/L (22-30); Chloride 118 mmol/L (98-107); Estimated CRCL calculation 31 ml/min; Estimated Glomerular Filt Rate 39; Glucose 76 mg/dL (65-110); Potassium 3.8 mmol/L (3.4-5.0); Sodium 143 mmol/L (137-145); Total Protein 5.4 g/dL (6.3-8.2)
[2025-06-01] MEDS: oxyCODONE HCL (*CRX) 5 MG TAB IR FEED TUBE ×3 (05:31→21:14)
[2025-06-01] MEDS: CENTRAL LINE FLUSH 10 ML IV PUSH ×2 (05:31→14:18)
[2025-06-01] MEDS: METOPROLOL TARTRATE 50 MG TAB FEED TUBE ×3 (05:32→21:13)
--- NOTE | 2025-06-01 09:14 | PM.IMPN ---
Progress Note: A&P Assessment and Plan (1) Acute on chronic anemia: Code(s): D64.9 - Anemia, unspecified Status: Acute (2) Pneumonia: Qualifiers: Laterality: right Lung location: lower lobe of lung Pneumonia type: due to unspecified organism Qualified Code(s): J18.9 - Pneumonia, unspecified organism Code(s): J18.9 - Pneumonia, unspecified organism Status: Acute (3) Tachycardia: Code(s): R00.0 - Tachycardia, unspecified Status: Acute (4) Acute kidney injury: Code(s): N17.9 - Acute kidney failure, unspecified Status: Acute (5) Supratherapeutic INR: Code(s): R79.1 - Abnormal coagulation profile Status: Acute (6) Hypocalcemia: Code(s): E83.51 - Hypocalcemia Status: Acute (7) Essential (primary) hypertension: Code(s): I10 - Essential (primary) hypertension Status: Acute (8) Schizoaffective disorder: Code(s): F25.9 - Schizoaffective disorder, unspecified Status: Acute Plan 1. Acute hypoxia-resolved Likely secondary to pneumonia Presented with leukocytosis, WBC 17.8 on admission-down trending today 14.[address] shows bilateral pneumonia-moderate bi basilar infiltrate-minimal emphysematous change Follow strep pneumo/Legionella antigen Follow blood/urine culture Continue doxycycline for total of 7 days Continue cefepime 2. Acute on chronic anemia On admission, hemoglobin was 5.4 Yesterday's surgery applied gauze and a sliver nitrate on the bleeding site After transfusion, hemoglobin today stable Likely bleeding source is from the I&D site. Patient has stage IV pressure wound on the coccyx area-likely the bleeding source 3. RADHA Likely secondary to pneumonia and acute blood loss anemia IV fluid and blood transfusion Creatinine 1.38 today 4. Multiple stage states of healing Coccygeal wound Likely stage IV pressure ulcer with eschar Status post debridement by General surgery Appreciate recs from General surgery Wound care follow-up Urology consulted for [place] catheter placement due to difficult anatomy-to keep the urine flows without contaminating the wound-urology was unable to place [place]-she might need a suprapubic [place] placement Tentative plan for suprapubic [place] placement on Sunday by Urology Sacrum and coccyx x-rays negative for osteomyelitis 5. Schizoaffective disorder Continue home meds including Seroquel, trazodone, and citalopram 6. Hypertension stable 7. History of PE 2024 Patient has PEG tube Continue Eliquis 8. Hypokalemia-on replacement protocol Time Spent With Patient Time: 25 minutes Subjective Date/time seen: 06/01/25 09:14 Interval history: She had dressing changed today by surgery. Bleeding seems stopped. Hemoglobin is stable. She is awake and alert. Hemodynamically stable and afebrile. Exam Narrative: APPEARANCE: Lying in bed comfortably EYES: EOMI HEENT: Normocephalic, atraumatic, OMM RESPIRATORY: No respiratory distress Clear to auscultation bilaterally with no rhonchi wheezing or rales. CARDIOVASCULAR: RRR, S1 and S2 without murmurs rubs or gallops. ABDOMINAL: Soft, nontender, nondistended, no rebound or guarding MSK: Quadriplegia. NEURO: Awake and alert. Following commands, speech normal, no focal deficits SKIN:: Warm, dry. No rashes lesions or abrasions PSYCHIATRIC: Bright affect Objective Data Vital Signs Vital Signs: Vital Signs - 24 hr 05/31/25 09:53 05/31/25 10:00 05/31/25 10:29 Temperature 36.4 C L 36.3 C L Pulse Rate 80 76 75 Respiratory Rate 18 16 Blood Pressure 137/78 120/71 Pulse Oximetry 98 98 Oxygen Delivery 05/31/25 10:44 05/31/25 11:44 05/31/25 12:00 Temperature 36.7 C 36.4 C 37.1 C Pulse Rate 90 79 86 Respiratory Rate 20 18 20 Blood Pressure 114/77 102/79 120/73 Pulse Oximetry 97 97 97 Oxygen Delivery 05/31/25 12:00 05/31/25 13:05 05/31/25 14:00 Temperature 36.3 C L Pulse Rate 83 89 85 Respiratory Rate 16 Blood Pressure 104/71 Pulse Oximetry 97 Oxygen Delivery 05/31/25 14:45 05/31/25 16:00 05/31/25 16:00 Temperature Pulse Rate 94 Respiratory Rate Blood Pressure 104/64 Pulse Oximetry Oxygen Delivery Room Air 05/31/25 16:00 05/31/25 17:14 05/31/25 18:00 Temperature 36.9 C Pulse Rate 98 86 95 Respiratory Rate 12 Blood Pressure 100/69 Pulse Oximetry 98 Oxygen Delivery 05/31/25 19:24 05/31/25 20:00 05/31/25 20:00 Temperature 37.0 C Pulse Rate 110 H 95 Respiratory Rate 17 Blood Pressure 100/68 Pulse Oximetry 96 Oxygen Delivery Room Air 05/31/25 21:32 05/31/25 22:00 05/31/25 23:43 Temperature 36.6 C Pulse Rate 96 98 93 Respiratory Rate 17 Blood Pressure 100/66 Pulse Oximetry 95 Oxygen Delivery 06/01/25 00:00 06/01/25 00:00 06/01/25 02:00 Temperature Pulse Rate 97 88 Respiratory Rate Blood Pressure Pulse Oximetry Oxygen Delivery Room Air 06/01/25 03:06 06/01/25 04:00 06/01/25 04:00 Temperature 36.5 C Pulse Rate 99 95 Respiratory Rate 17 Blood Pressure 114/72 Pulse Oximetry 98 Oxygen Delivery Room Air 06/01/25 05:32 06/01/25 06:00 06/01/25 08:00 Temperature 36.8 C Pulse Rate 91 74 84 Respiratory Rate 16 Blood Pressure 118/78 Pulse Oximetry 98 Oxygen Delivery Intake/Output Intake/Output: Intake & Output 05/29/25 05/30/25 05/31/25 06/01/25 23:59 23:59 23:59 23:59 Intake Total 1440 2320 2372.3 120 Output Total 1050 1200 500 400 Balance 390 1120 1872.3 -280 Meds/Results Medications: Active Medications Generic Name Dose Route Start Last Admin Trade Name Freq PRN Reason Stop Dose Admin Acetaminophen 500 mg 05/28/25 18:19 Acetaminophen Elixir 325 Mg/10.15 Ml Udc PO Q6H PRN fever or pain rated 1-3 Alteplase, Recombinant 2 mg 05/29/25 19:51 05/29/25 20:22 Alteplase 2 Mg Vial (Cathflo) IV PUSH 2 mg ONCE PRN Administration Line Occlusion Apixaban 5 mg 05/29/25 09:00 05/31/25 08:50 Apixaban 5 Mg Tablet FEED TUBE 5 mg On Hold: 05/31/25 15:02 Q12HR MERLYN Administration Citalopram Hydrobromide 30 mg 05/29/25 21:00 05/31/25 21:29 Citalopram Hydrobromide 10 Mg Tablet FEED TUBE 30 mg HS MERLYN Administration Doxycycline Hyclate 100 mg 05/29/25 11:30 05/31/25 21:30 Doxycycline Hyclate 100 Mg Tablet FEED TUBE 06/03/25 21:01 100 mg Q12HR MERLYN Administration Famotidine 20 mg 05/29/25 09:00 05/31/25 17:14 Famotidine 20 Mg Tablet FEED TUBE 20 mg BID MERLYN Administration Heparin Sodium (Beef Lung) 50 units 05/29/25 09:00 05/31/25 11:57 Heparin Flush 50 Units/5 Ml Syringe IV PUSH Not Given QAM MERLYN Heparin Sodium (Beef Lung) 50 units 05/29/25 09:00 Heparin Flush 50 Units/5 Ml Syringe IV PUSH PRN PRN after intermittent infusion Heparin Sodium (Beef Lung) 50 units 05/29/25 09:00 Heparin Flush 50 Units/5 Ml Syringe IV PUSH PRN PRN after blood draws Heparin Sodium (Porcine) 500 units 05/29/25 09:00 Heparin Sodium Lock Flush 500 Units/5 Ml Syringe IV PUSH PRN PRN see comments below Cefepime HCl 2 gm/ Sodium 50 mls @ 100 mls/hr 05/28/25 12:00 05/31/25 12:34 Chloride IVPB Infused Q24H MERLYN Infusion Sodium Chloride 1,000 mls @ 75 mls/hr 05/28/25 18:15 06/01/25 00:28 Normal Saline Iv IV CONT 75 mls/hr .[id number] MERLYN Administration Metoprolol Tartrate 50 mg 05/28/25 22:00 06/01/25 05:32 Metoprolol Tartrate 50 Mg Tab FEED TUBE 50 mg Q8H MERLYN Administration Oxycodone HCl 5 mg 05/28/25 22:00 06/01/25 05:31 Oxycodone Hcl (*Crx) 5 Mg Tab Ir FEED TUBE 5 mg Q8H MERLYN Administration Polyethylene Glycol 17 gm 05/29/25 09:00 05/31/25 08:49 Polyethylene Glycol 3350 17 Gm Powd.Pack FEED TUBE 17 gm QAM MERLYN Administration Pregabalin 75 mg 05/29/25 09:00 05/31/25 08:50 Pregabalin (*Crx) 75 Mg Capsule FEED TUBE 75 mg DAILY MERLYN Administration Quetiapine Fumarate 25 mg 05/29/25 09:00 05/31/25 08:50 Quetiapine Fumarate 25 Mg Tablet FEED TUBE 25 mg DAILY MERLYN Administration Senna/Docusate Sodium 1 tab 05/28/25 21:00 05/31/25 21:29 Senna/Docusate Sodium Tablet FEED TUBE 1 tab HS MERLYN Administration Sodium Bicarbonate 325 mg 05/28/25 18:25 05/31/25 17:14 Sodium Bicarbonate Tab 325 Mg Tablet FEED TUBE 325 mg BID MERLYN Administration Sodium Chloride 10 ml 05/29/25 14:00 06/01/25 05:31 Central Line Flush IV PUSH 10 ml Q8HR MERLYN Administration Sodium Hypochlorite 1 applic 05/29/25 09:00 06/01/25 00:25 Sod Hypochlorite 1/4 Strength 473 Ml TOPICAL Not Given Q12HR MERLYN Thiamine HCl 300 mg 05/29/25 09:00 05/31/25 08:51 Thiamine Hcl 100 Mg Tablet FEED TUBE 300 mg QAM MERLYN Administration Trazodone HCl 50 mg 05/29/25 21:00 05/31/25 21:30 Trazodone Hcl 50 Mg Tablet FEED TUBE 50 mg HS MERLYN Administration Radiology Results: ITS Impressions Chest X-Ray 05/28/25 09:36 IMPRESSION: 1: Right hilum is prominent. The finding is new. Differential includes overlapping vasculature, adenopathy, consolidation or mass. A chest CT is recommended. 2. Small to moderate-sized patchy opacities scattered throughout both lungs. Differential includes but is not limited to edema or pneumonia. Follow-up is recommended. Attention follow-up chest CT imaging. Head CT 05/28/25 09:36 Impression: 1.No acute intracranial abnormality. Chest CT 05/28/25 11:13 IMPRESSION: Bilateral pneumonia. Follow-up recommended to assess resolution. Sacrum and Coccyx X-Ray 05/29/25 10:38 Impression: 1: No acute bone or joint abnormality identified. 2: Bilateral dislocation and remodeling of the hips, likely chronic. 3: If there is concern for osteomyelitis, further evaluation with MRI of the pelvis with contrast recommended. Thoracic Spine X-Ray 05/29/25 10:42 Impression: 1: Limited study due to scoliosis and osteopenia. Mild compression deformities of T8 and T9 with possible additional compression fractures which are difficult to evaluate due to patient rotation, demineralization and immobility. 2: Diffuse bilateral airspace disease which may represent edema or pneumonia. Labs Labs: Laboratory Results - last 24 hr 05/28/25 05/31/25 05/31/25 10:51 15:29 17:56 WBC RBC Hgb 9.3 L Hct 29.1 L MCV MCH MCHC RDW Plt Count MPV Immature Gran % (Auto) Neut % (Auto) Lymph % (Auto) [place] % (Auto) Eos % (Auto) Baso % (Auto) Lymph # (Auto) [place] # (Auto) Eos # (Auto) Baso # (Auto) Abs Immat Gran (auto) Absolute Neuts (auto) Absolute Nucleated RBC Nucleated RBC % PT 48.2 H D INR 5.6 H* APTT 101.2 H Sodium Potassium Chloride Carbon Dioxide Anion Gap BUN Creatinine Estim Creat Clear Calc Estimated GFR Glucose Calcium Total Bilirubin AST ALT Alkaline Phosphatase Total Protein Albumin Blood Type O Positive Antibody Screen Negative Crossmatch See Detail 06/01/25 03:38 WBC 10.3 H RBC 3.08 L Hgb 8.3 L Hct 26.0 L MCV 84.4 MCH 26.9 D MCHC 31.9 L RDW 17.7 H Plt Count 288 MPV 11.0 H Immature Gran % (Auto) 0.6 H Neut % (Auto) 69.1 Lymph % (Auto) 18.6 [place] % (Auto) 6.1 Eos % (Auto) 5.1 H Baso % (Auto) 0.5 Lymph # (Auto) 1.92 [place] # (Auto) 0.6 Eos # (Auto) 0.5 H Baso # (Auto) 0.1 Abs Immat Gran (auto) 0.06 H Absolute Neuts (auto) 7.1 H Absolute Nucleated RBC 0.000 Nucleated RBC % 0.0 PT INR APTT Sodium 143 Potassium 3.8 Chloride 118 H Carbon Dioxide 19 L Anion Gap 6 BUN 46 H Creatinine 1.38 H Estim Creat Clear Calc 31 Estimated GFR 39 L Glucose 76 Calcium 7.6 L Total Bilirubin 0.6 AST 14 ALT 7 Alkaline Phosphatase 119 Total Protein 5.4 L Albumin 1.8 L Blood Type Antibody Screen Crossmatch
[2025-06-01] MEDS: PREGABALIN (*CRX) 75 MG CAPSULE FEED TUBE (09:15)
[2025-06-01] MEDS: FAMOTIDINE 20 MG TABLET FEED TUBE ×2 (09:15→21:14)
[2025-06-01] MEDS: DOXYCYCLINE HYCLATE 100 MG TABLET FEED TUBE ×2 (09:15→21:14)
[2025-06-01] MEDS: SODIUM BICARBONATE TAB 325 MG TABLET FEED TUBE ×2 (09:16→21:13)
[2025-06-01] MEDS: SOD HYPOCHLORITE 1/4 STRENGTH 473 ML 1 APPLIC TOPICAL ×2 (09:16→21:14)
[2025-06-01] MEDS: THIAMINE HCL 100 MG TABLET 300 MG FEED TUBE (09:16)
[2025-06-01 10:14] LABS: INR 3.3; Prothrombin Time 32.0 Seconds (11.1-14.7)
[2025-06-01 10:17] LABS: Partial Thromboplastin Time 140.7 Seconds (22.3-36.8)
--- NOTE | 2025-06-01 11:41 | P.PNGS_ITS ---
Progress Note: A&P Assessment and Plan (1) Supratherapeutic INR: Code(s): R79.1 - Abnormal coagulation profile Status: Acute Assessment and Plan: INR improved today from 5.6 to 3.3. Protime improved from 48-32. PTT is higher. Looking back over coag studies since October of 2023, protime and PTT have always been elevated. Typically, Eliquis does not cause changes in PT, PTT. Continue to hold Eliquis and follow coags. INR protime and PTT have been markedly abnormal this entire hospitalization. Possibly a complication of infection. Fortunately, no further bleeding today. (2) Decubitus ulcer, infected: Qualifiers: Pressure injury stage: stage 4 Qualified Code(s): L89.94 - Pressure ulcer of unspecified site, stage 4; L08.9 - Local infection of the skin and subcutaneous tissue, unspecified Code(s): L89.90 - Pressure ulcer of unspecified site, unspecified stage; L08.9 - Local infection of the skin and subcutaneous tissue, unspecified Status: Chronic Assessment and Plan: No sign of significant bleeding from left ischial decubitus overnight. Will leave the wound packed and dressing in place for now. Try to correct the pro time and PTT. Hold Eliquis. Probably recheck wound again tomorrow. 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: Code(s): M62.461 - Contracture of muscle, right lower leg; M62.462 - Contracture of muscle, left lower leg Status: Chronic Subjective Subjective Date/Time Seen: 06/01/25 11:41 Patient reports: no new complaints Review of Systems Review of Systems: All systems reviewed & are unremarkable except as noted in HPI and below ( HPI) Exam Const: General: comfortable, alert and awake Back/Spine/Pelvis: Sacroiliac joints: on the left ( dressing dry, no evidence of persistent bleeding) Objective Data Vital Signs Vital Signs: Vital Signs - 24 hr 05/31/25 11:44 05/31/25 12:00 05/31/25 12:00 Temperature 36.4 C 37.1 C Pulse Rate 79 86 83 Respiratory Rate 18 20 Blood Pressure 102/79 120/73 Pulse Oximetry 97 97 Oxygen Delivery 05/31/25 13:05 05/31/25 14:00 05/31/25 14:45 Temperature 36.3 C L Pulse Rate 89 85 Respiratory Rate 16 Blood Pressure 104/71 104/64 Pulse Oximetry 97 Oxygen Delivery 05/31/25 16:00 05/31/25 16:00 05/31/25 16:00 Temperature 36.9 C Pulse Rate 94 98 Respiratory Rate 12 Blood Pressure 100/69 Pulse Oximetry 98 Oxygen Delivery Room Air 05/31/25 17:14 05/31/25 18:00 05/31/25 19:24 Temperature 37.0 C Pulse Rate 86 95 110 H Respiratory Rate 17 Blood Pressure 100/68 Pulse Oximetry 96 Oxygen Delivery 05/31/25 20:00 05/31/25 20:00 05/31/25 21:32 Temperature Pulse Rate 95 96 Respiratory Rate Blood Pressure Pulse Oximetry Oxygen Delivery Room Air 05/31/25 22:00 05/31/25 23:43 06/01/25 00:00 Temperature 36.6 C Pulse Rate 98 93 Respiratory Rate 17 Blood Pressure 100/66 Pulse Oximetry 95 Oxygen Delivery Room Air 06/01/25 00:00 06/01/25 02:00 06/01/25 03:06 Temperature 36.5 C Pulse Rate 97 88 99 Respiratory Rate 17 Blood Pressure 114/72 Pulse Oximetry 98 Oxygen Delivery 06/01/25 04:00 06/01/25 04:00 06/01/25 05:32 Temperature Pulse Rate 95 91 Respiratory Rate Blood Pressure Pulse Oximetry Oxygen Delivery Room Air 06/01/25 06:00 06/01/25 08:00 Temperature 36.8 C Pulse Rate 74 84 Respiratory Rate 16 Blood Pressure 118/78 Pulse Oximetry 98 Oxygen Delivery Intake/Output Intake/Output: Intake & Output 05/29/25 05/30/25 05/31/25 06/01/25 23:59 23:59 23:59 23:59 Intake Total 1440 2320 2372.3 120 Output Total 1050 1200 500 400 Balance 390 1120 1872.3 -280 Meds/Results Medications: Active Medications Generic Name Dose Route Start Last Admin Trade Name Freq PRN Reason Stop Dose Admin Acetaminophen 500 mg 05/28/25 18:19 Acetaminophen Elixir 325 Mg/10.15 Ml Udc PO Q6H PRN fever or pain rated 1-3 Alteplase, Recombinant 2 mg 05/29/25 19:51 05/29/25 20:22 Alteplase 2 Mg Vial (Cathflo) IV PUSH 2 mg ONCE PRN Administration Line Occlusion Apixaban 5 mg 05/29/25 09:00 05/31/25 08:50 Apixaban 5 Mg Tablet FEED TUBE 5 mg On Hold: 05/31/25 15:02 Q12HR MERLYN Administration Citalopram Hydrobromide 30 mg 05/29/25 21:00 05/31/25 21:29 Citalopram Hydrobromide 10 Mg Tablet FEED TUBE 30 mg HS MERLYN Administration Doxycycline Hyclate 100 mg 05/29/25 11:30 06/01/25 09:15 Doxycycline Hyclate 100 Mg Tablet FEED TUBE 06/03/25 21:01 100 mg Q12HR MERLYN Administration Famotidine 20 mg 05/29/25 09:00 06/01/25 09:15 Famotidine 20 Mg Tablet FEED TUBE 20 mg BID MERLYN Administration Heparin Sodium (Beef Lung) 50 units 05/29/25 09:00 06/01/25 09:18 Heparin Flush 50 Units/5 Ml Syringe IV PUSH 50 units QAM MERLYN Administration Heparin Sodium (Beef Lung) 50 units 05/29/25 09:00 Heparin Flush 50 Units/5 Ml Syringe IV PUSH PRN PRN after intermittent infusion Heparin Sodium (Beef Lung) 50 units 05/29/25 09:00 Heparin Flush 50 Units/5 Ml Syringe IV PUSH PRN PRN after blood draws Heparin Sodium (Porcine) 500 units 05/29/25 09:00 Heparin Sodium Lock Flush 500 Units/5 Ml Syringe IV PUSH PRN PRN see comments below Cefepime HCl 2 gm/ Sodium 50 mls @ 100 mls/hr 05/28/25 12:00 05/31/25 12:34 Chloride IVPB Infused Q24H MERLYN Infusion Sodium Chloride 1,000 mls @ 75 mls/hr 05/28/25 18:15 06/01/25 00:28 Normal Saline Iv IV CONT 75 mls/hr .[id number] MERLYN Administration Prothrombin Complex Concent ( 0 mls @ 504 mls/hr 06/01/25 11:37 Human) / N/A IV CONT 06/01/25 11:38 ONCE STA Metoprolol Tartrate 50 mg 05/28/25 22:00 06/01/25 05:32 Metoprolol Tartrate 50 Mg Tab FEED TUBE 50 mg Q8H MERLYN Administration Oxycodone HCl 5 mg 05/28/25 22:00 06/01/25 05:31 Oxycodone Hcl (*Crx) 5 Mg Tab Ir FEED TUBE 5 mg Q8H MERLYN Administration Polyethylene Glycol 17 gm 05/29/25 09:00 06/01/25 09:17 Polyethylene Glycol 3350 17 Gm Powd.Pack FEED TUBE 17 gm QAM MERLYN Administration Pregabalin 75 mg 05/29/25 09:00 06/01/25 09:15 Pregabalin (*Crx) 75 Mg Capsule FEED TUBE 75 mg DAILY MERLYN Administration Quetiapine Fumarate 25 mg 05/29/25 09:00 06/01/25 09:15 Quetiapine Fumarate 25 Mg Tablet FEED TUBE 25 mg DAILY MERLYN Administration Senna/Docusate Sodium 1 tab 05/28/25 21:00 05/31/25 21:29 Senna/Docusate Sodium Tablet FEED TUBE 1 tab HS MERLYN Administration Sodium Bicarbonate 325 mg 05/28/25 18:25 06/01/25 09:16 Sodium Bicarbonate Tab 325 Mg Tablet FEED TUBE 325 mg BID MERLYN Administration Sodium Chloride 10 ml 05/29/25 14:00 06/01/25 05:31 Central Line Flush IV PUSH 10 ml Q8HR MERLYN Administration Sodium Hypochlorite 1 applic 05/29/25 09:00 06/01/25 09:16 Sod Hypochlorite 1/4 Strength 473 Ml TOPICAL 1 applic Q12HR MERLYN Administration Thiamine HCl 300 mg 05/29/25 09:00 06/01/25 09:16 Thiamine Hcl 100 Mg Tablet FEED TUBE 300 mg QAM MERLYN Administration Trazodone HCl 50 mg 05/29/25 21:00 05/31/25 21:30 Trazodone Hcl 50 Mg Tablet FEED TUBE 50 mg HS MERLYN Administration Radiology Results: ITS Impressions Chest X-Ray 05/28/25 09:36 IMPRESSION: 1: Right hilum is prominent. The finding is new. Differential includes overlapping vasculature, adenopathy, consolidation or mass. A chest CT is recommended. 2. Small to moderate-sized patchy opacities scattered throughout both lungs. Differential includes but is not limited to edema or pneumonia. Follow-up is recommended. Attention follow-up chest CT imaging. Head CT 05/28/25 09:36 Impression: 1.No acute intracranial abnormality. Chest CT 05/28/25 11:13 IMPRESSION: Bilateral pneumonia. Follow-up recommended to assess resolution. Sacrum and Coccyx X-Ray 05/29/25 10:38 Impression: 1: No acute bone or joint abnormality identified. 2: Bilateral dislocation and remodeling of the hips, likely chronic. 3: If there is concern for osteomyelitis, further evaluation with MRI of the pelvis with contrast recommended. Thoracic Spine X-Ray 05/29/25 10:42 Impression: 1: Limited study due to scoliosis and osteopenia. Mild compression deformities of T8 and T9 with possible additional compression fractures which are difficult to evaluate due to patient rotation, demineralization and immobility. 2: Diffuse bilateral airspace disease which may represent edema or pneumonia. Labs Labs: Laboratory Results - last 24 hr 05/28/25 05/31/25 05/31/25 10:51 15:29 17:56 WBC RBC Hgb 9.3 L Hct 29.1 L MCV MCH MCHC RDW Plt Count MPV Immature Gran % (Auto) Neut % (Auto) Lymph % (Auto) [place] % (Auto) Eos % (Auto) Baso % (Auto) Lymph # (Auto) [place] # (Auto) Eos # (Auto) Baso # (Auto) Abs Immat Gran (auto) Absolute Neuts (auto) Absolute Nucleated RBC Nucleated RBC % PT 48.2 H D INR 5.6 H* APTT 101.2 H Sodium Potassium Chloride Carbon Dioxide Anion Gap BUN Creatinine Estim Creat Clear Calc Estimated GFR Glucose Calcium Total Bilirubin AST ALT Alkaline Phosphatase Total Protein Albumin Crossmatch See Detail 06/01/25 06/01/25 03:38 09:48 WBC 10.3 H RBC 3.08 L Hgb 8.3 L Hct 26.0 L MCV 84.4 MCH 26.9 D MCHC 31.9 L RDW 17.7 H Plt Count 288 MPV 11.0 H Immature Gran % (Auto) 0.6 H Neut % (Auto) 69.1 Lymph % (Auto) 18.6 [place] % (Auto) 6.1 Eos % (Auto) 5.1 H Baso % (Auto) 0.5 Lymph # (Auto) 1.92 [place] # (Auto) 0.6 Eos # (Auto) 0.5 H Baso # (Auto) 0.1 Abs Immat Gran (auto) 0.06 H Absolute Neuts (auto) 7.1 H Absolute Nucleated RBC 0.000 Nucleated RBC % 0.0 PT 32.0 H D INR 3.3 APTT 140.7 H Sodium 143 Potassium 3.8 Chloride 118 H Carbon Dioxide 19 L Anion Gap 6 BUN 46 H Creatinine 1.38 H Estim Creat Clear Calc 31 Estimated GFR 39 L Glucose 76 Calcium 7.6 L Total Bilirubin 0.6 AST 14 ALT 7 Alkaline Phosphatase 119 Total Protein 5.4 L Albumin 1.8 L Crossmatch PT and INR are improved after human prothrombin complex concentrate given yesterday. PTT is even higher. H&H is low but adequate.
[2025-06-01] MEDS: CEFEPIME 2 GM in SODIUM CHLORIDE 0.9% IV 50 ML 100 ML IVPB (12:05)
[2025-06-01] MEDS: PHYTONADIONE ADULT INJ 5 MG in DEXTROSE 5% IN WATER 50 ML 100 MG IVPB (12:59)
[2025-06-01 16:05] LABS: Hematocrit 24.5 % (37.0-47.0); Hemoglobin 7.7 g/dL (12.0-15.0)
[2025-06-01] MEDS: SENNA/DOCUSATE SODIUM TABLET 1 TAB FEED TUBE (21:14)
[2025-06-01] MEDS: CITALOPRAM HYDROBROMIDE 10 MG TABLET 30 MG FEED TUBE (21:14)
[2025-06-02] VITALS (19 sets, daily range): BP systolic 98–139; BP diastolic 64–87; PULSE 73–90; RESP 16–18; TEMP 36.1–37.5; O2SAT 96–99
[2025-06-02] MEDS: SODIUM CHLORIDE 0.9% IV 1,000 ML 75 ML IV CONT (03:09)
[2025-06-02] MEDS: oxyCODONE HCL (*CRX) 5 MG TAB IR FEED TUBE ×3 (05:16→21:38)
[2025-06-02] MEDS: METOPROLOL TARTRATE 50 MG TAB FEED TUBE ×3 (05:16→21:38)
[2025-06-02 05:53] LABS: Hematocrit 27.5 % (37.0-47.0); Hemoglobin 8.4 g/dL (12.0-15.0); Immature Granulocyte Percent A 0.5 % (0-0.5); Lymphocytes Absolute Auto 1.80 K/mm3 (0.9-3.2); Mean Corpuscular HGB Conc 30.5 g/dl (32-36); Mean Corpuscular Hemoglobin 26.4 pg (26-34); Mean Corpuscular Volume 86.5 fl (80-100); Nucleated Red Blood Cells Absolute Auto 0.000 K/mm3 (0.0-0.012); Nucleated Red Blood Cells Perc 0.0 % (0.0-0.2); Platelet Count Result 299 k/mm3 (150-375); Red Blood Count 3.18 M/mm3 (4.2-5.4); White Blood Count 12.8 K/mm3 (4.5-10.0)
--- NOTE | 2025-06-02 06:10 | WPDUROPN2 ---
Progress Note: A&P Assessment and Plan (1) Incontinence: Code(s): R32 - Unspecified urinary incontinence Status: Acute Assessment and Plan: At some point pt. would benefit from placement s/p catheter but, obviously, can't plan that currently with ongoing bleeding/coagulation issues. Subjective Subjective Date/Time Seen: 06/02/25 06:10 Interval history: Events noted Review of Systems Review of Systems: ROS unobtainable: Yes unobtainable due to mental status Exam Const: General: no acute distress Resp: Effort & Inspection: normal respiratory effort Urinary Catheter: Urinary Catheter: other (purewick with yellow urine) Skin: Wounds: wounds noted Neuro: Other: quadriplegic Objective Data Vital Signs Vital Signs: Vital Signs - 24 hr 06/01/25 08:00 06/01/25 08:00 06/01/25 10:00 Temperature 98.2 F Pulse Rate 84 75 88 Respiratory Rate 16 Blood Pressure 118/78 Pulse Oximetry 98 Oxygen Delivery 06/01/25 12:00 06/01/25 12:00 06/01/25 12:00 Temperature 98.7 F Pulse Rate 95 91 Respiratory Rate 18 Blood Pressure 117/71 Pulse Oximetry 99 Oxygen Delivery Room Air 06/01/25 14:00 06/01/25 14:17 06/01/25 16:00 Temperature 97.6 F Pulse Rate 84 94 76 Respiratory Rate 18 Blood Pressure 121/80 Pulse Oximetry 97 Oxygen Delivery 06/01/25 16:00 06/01/25 16:00 06/01/25 18:00 Temperature Pulse Rate 87 80 Respiratory Rate Blood Pressure Pulse Oximetry Oxygen Delivery Room Air 06/01/25 20:00 06/01/25 20:00 06/01/25 20:00 Temperature 99.7 F H Pulse Rate 93 93 Respiratory Rate 18 Blood Pressure 113/72 Pulse Oximetry 96 Oxygen Delivery Room Air 06/01/25 21:13 06/01/25 22:00 06/02/25 00:00 Temperature 99.5 F Pulse Rate 74 82 87 Respiratory Rate 16 Blood Pressure 98/64 L Pulse Oximetry 97 Oxygen Delivery 06/02/25 00:00 06/02/25 00:00 06/02/25 02:00 Temperature Pulse Rate 81 73 Respiratory Rate Blood Pressure Pulse Oximetry Oxygen Delivery Room Air 06/02/25 03:28 06/02/25 04:00 06/02/25 04:00 Temperature 99.1 F Pulse Rate 88 84 Respiratory Rate 18 Blood Pressure 128/75 Pulse Oximetry 96 Oxygen Delivery Room Air 06/02/25 05:16 Temperature Pulse Rate 90 Respiratory Rate Blood Pressure Pulse Oximetry Oxygen Delivery Intake/Output Intake/Output: Intake & Output 05/30/25 05/31/25 06/01/25 06/02/25 23:59 23:59 23:59 23:59 Intake Total 2320 2372.3 1180 1060 Output Total 1200 500 500 550 Balance 1120 1872.3 680 510 Meds/Results Medications: Active Medications Generic Name Dose Route Start Last Admin Trade Name Freq PRN Reason Stop Dose Admin Acetaminophen 500 mg 05/28/25 18:19 Acetaminophen Elixir 325 Mg/10.15 Ml Udc PO Q6H PRN fever or pain rated 1-3 Alteplase, Recombinant 2 mg 05/29/25 19:51 05/29/25 20:22 Alteplase 2 Mg Vial (Cathflo) IV PUSH 2 mg ONCE PRN Administration Line Occlusion Apixaban 5 mg 05/29/25 09:00 05/31/25 08:50 Apixaban 5 Mg Tablet FEED TUBE 5 mg On Hold: 05/31/25 15:02 Q12HR MERLYN Administration Citalopram Hydrobromide 30 mg 05/29/25 21:00 06/01/25 21:14 Citalopram Hydrobromide 10 Mg Tablet FEED TUBE 30 mg HS MERLYN Administration Doxycycline Hyclate 100 mg 05/29/25 11:30 06/01/25 21:14 Doxycycline Hyclate 100 Mg Tablet FEED TUBE 06/03/25 21:01 100 mg Q12HR MERLYN Administration Famotidine 20 mg 06/01/25 21:00 06/01/25 21:14 Famotidine 20 Mg Tablet FEED TUBE 20 mg Q12HR MERLYN Administration Heparin Sodium (Beef Lung) 50 units 05/29/25 09:00 06/01/25 09:18 Heparin Flush 50 Units/5 Ml Syringe IV PUSH 50 units QAM MERLYN Administration Heparin Sodium (Beef Lung) 50 units 05/29/25 09:00 Heparin Flush 50 Units/5 Ml Syringe IV PUSH PRN PRN after intermittent infusion Heparin Sodium (Beef Lung) 50 units 05/29/25 09:00 Heparin Flush 50 Units/5 Ml Syringe IV PUSH PRN PRN after blood draws Heparin Sodium (Porcine) 500 units 05/29/25 09:00 Heparin Sodium Lock Flush 500 Units/5 Ml Syringe IV PUSH PRN PRN see comments below Cefepime HCl 2 gm/ Sodium 50 mls @ 100 mls/hr 05/28/25 12:00 06/01/25 12:05 Chloride IVPB 100 mls/hr Q24H MERLYN Administration Sodium Chloride 1,000 mls @ 75 mls/hr 05/28/25 18:15 06/02/25 03:09 Normal Saline Iv IV CONT 75 mls/hr .[id number] MERLYN Administration Metoprolol Tartrate 50 mg 05/28/25 22:00 06/02/25 05:16 Metoprolol Tartrate 50 Mg Tab FEED TUBE 50 mg Q8H MERLYN Administration Oxycodone HCl 5 mg 05/28/25 22:00 06/02/25 05:16 Oxycodone Hcl (*Crx) 5 Mg Tab Ir FEED TUBE 5 mg Q8H MERLYN Administration Polyethylene Glycol 17 gm 05/29/25 09:00 06/01/25 09:17 Polyethylene Glycol 3350 17 Gm Powd.Pack FEED TUBE 17 gm QAM MERLYN Administration Pregabalin 75 mg 05/29/25 09:00 06/01/25 09:15 Pregabalin (*Crx) 75 Mg Capsule FEED TUBE 75 mg DAILY MERLYN Administration Quetiapine Fumarate 25 mg 05/29/25 09:00 06/01/25 09:15 Quetiapine Fumarate 25 Mg Tablet FEED TUBE 25 mg DAILY MERLYN Administration Senna/Docusate Sodium 1 tab 05/28/25 21:00 06/01/25 21:14 Senna/Docusate Sodium Tablet FEED TUBE 1 tab HS MERLYN Administration Sodium Bicarbonate 325 mg 06/01/25 21:00 06/01/25 21:13 Sodium Bicarbonate Tab 325 Mg Tablet FEED TUBE 325 mg Q12HR MERLYN Administration Sodium Chloride 10 ml 05/29/25 14:00 06/02/25 05:07 Central Line Flush IV PUSH Not Given Q8HR MERLYN Sodium Hypochlorite 1 applic 05/29/25 09:00 06/01/25 21:14 Sod Hypochlorite 1/4 Strength 473 Ml TOPICAL 1 applic Q12HR MERLYN Administration Thiamine HCl 300 mg 05/29/25 09:00 06/01/25 09:16 Thiamine Hcl 100 Mg Tablet FEED TUBE 300 mg QAM MERLYN Administration Trazodone HCl 50 mg 05/29/25 21:00 06/01/25 21:14 Trazodone Hcl 50 Mg Tablet FEED TUBE 50 mg HS MERLYN Administration Radiology Results: ITS Impressions Chest X-Ray 05/28/25 09:36 IMPRESSION: 1: Right hilum is prominent. The finding is new. Differential includes overlapping vasculature, adenopathy, consolidation or mass. A chest CT is recommended. 2. Small to moderate-sized patchy opacities scattered throughout both lungs. Differential includes but is not limited to edema or pneumonia. Follow-up is recommended. Attention follow-up chest CT imaging. Head CT 05/28/25 09:36 Impression: 1.No acute intracranial abnormality. Chest CT 05/28/25 11:13 IMPRESSION: Bilateral pneumonia. Follow-up recommended to assess resolution. Sacrum and Coccyx X-Ray 05/29/25 10:38 Impression: 1: No acute bone or joint abnormality identified. 2: Bilateral dislocation and remodeling of the hips, likely chronic. 3: If there is concern for osteomyelitis, further evaluation with MRI of the pelvis with contrast recommended. Thoracic Spine X-Ray 05/29/25 10:42 Impression: 1: Limited study due to scoliosis and osteopenia. Mild compression deformities of T8 and T9 with possible additional compression fractures which are difficult to evaluate due to patient rotation, demineralization and immobility. 2: Diffuse bilateral airspace disease which may represent edema or pneumonia. Labs Labs: Laboratory Results - last 24 hr 06/01/25 06/01/25 06/02/25 09:48 16:00 05:27 WBC 12.8 H RBC 3.18 L Hgb 7.7 L 8.4 L Hct 24.5 L 27.5 L MCV 86.5 MCH 26.4 MCHC 30.5 L RDW 18.6 H Plt Count 299 MPV 11.5 H Immature Gran % (Auto) 0.5 Neut % (Auto) 75.2 H Lymph % (Auto) 14.0 L [place] % (Auto) 6.2 Eos % (Auto) 3.7 Baso % (Auto) 0.4 Lymph # (Auto) 1.80 [place] # (Auto) 0.8 H Eos # (Auto) 0.5 H Baso # (Auto) 0.1 Abs Immat Gran (auto) 0.06 H Absolute Neuts (auto) 9.6 H Absolute Nucleated RBC 0.000 Nucleated RBC % 0.0 PT 32.0 H D INR 3.3 APTT 140.7 H
[2025-06-02 06:16] LABS: INR 2.1; Prothrombin Time 22.7 Seconds (11.1-14.7)
[2025-06-02 06:17] LABS: Partial Thromboplastin Time 76.7 Seconds (22.3-36.8)
[2025-06-02 06:34] LABS: Alanine Aminotransferase 7 U/L (6-35); Albumin Level 2.0 g/dL (3.5-5.1); Alkaline Phosphatase 147 U/L (38-126); Anion Gap 6 mmol/L (4-12); Aspartate Amino Transferase 23 U/L (14-36); Bilirubin,Total 0.6 mg/dL (0.2-1.3); Blood Urea Nitrogen 39 mg/dL (7-17); Calcium 7.9 mg/dL (8.4-10.2); Carbon Dioxide 18 mmol/L (22-30); Chloride 117 mmol/L (98-107); Estimated CRCL calculation 35 ml/min; Estimated Glomerular Filt Rate 42; Glucose 79 mg/dL (65-110); Potassium 3.9 mmol/L (3.4-5.0); Sodium 141 mmol/L (137-145); Total Protein 6.1 g/dL (6.3-8.2)
--- NOTE | 2025-06-02 06:47 | P.CDI_ITS ---
CDI Query Clarification Request BMI: 20.4 Nutritional Diagnostic Statement: Please refer to the comprehensive nutrition assessment for further information. If you agree with diagnosis of Severe protein calorie malnutrition related to chronic illness as evidenced by multiple pressure injuries; intakes <75% needs >1 month; weight loss 10%/4 months, 22%/1 year; severe muscle wasting and fat loss. Please specify severity if known: * Mild * Moderate * Severe * Other/Unknown <Oliva Colbert RN - Last Filed: 06/02/25 06:48> Clarified Diagnosis Clarified Diagnosis: * Severe <Tammi Bailey MD - Last Filed: 06/02/25 08:39>
[2025-06-02] MEDS: THIAMINE HCL 100 MG TABLET 300 MG FEED TUBE (08:34)
[2025-06-02] MEDS: DOXYCYCLINE HYCLATE 100 MG TABLET FEED TUBE ×2 (08:35→20:57)
[2025-06-02] MEDS: PREGABALIN (*CRX) 75 MG CAPSULE FEED TUBE (08:35)
[2025-06-02] MEDS: SODIUM BICARBONATE TAB 325 MG TABLET FEED TUBE ×2 (08:35→20:57)
[2025-06-02] MEDS: FAMOTIDINE 20 MG TABLET FEED TUBE ×2 (08:36→20:58)
[2025-06-02] MEDS: SOD HYPOCHLORITE 1/4 STRENGTH 473 ML 1 APPLIC TOPICAL (08:38)
[2025-06-02] MEDS: ALBUMIN HUMAN 25% 25 GM/100 ML 100 ML IVPB (11:16)
[2025-06-02] MEDS: CEFEPIME 2 GM in SODIUM CHLORIDE 0.9% IV 50 ML 100 ML IVPB (11:17)
[2025-06-02] MEDS: CALCIUM CARBONATE (OSCAL) 500 MG TABLET PO ×2 (11:19→17:11)
--- NOTE | 2025-06-02 12:33 | PC.NURSE ---
wound care dressing changes completed by general surgery nps
--- NOTE | 2025-06-02 12:55 | PM.PNGS ---
Progress Note: A&P Assessment and Plan (1) Supratherapeutic INR: Code(s): R79.1 - Abnormal coagulation profile Status: Acute Assessment and Plan: INR trending down to 2.1 today. No issues with bleeding overnight. Continue to hold Eliquis and monitor. (2) Decubitus ulcer, infected: Qualifiers: Pressure injury stage: stage 4 Qualified Code(s): L89.94 - Pressure ulcer of unspecified site, stage 4; L08.9 - Local infection of the skin and subcutaneous tissue, unspecified Code(s): L89.90 - Pressure ulcer of unspecified site, unspecified stage; L08.9 - Local infection of the skin and subcutaneous tissue, unspecified Status: Chronic Assessment and Plan: Still no issues with bleeding from left ischial decubitus overnight. Wound appears dry with no areas of bleeding seen on exam. Will reassess again tomorrow. 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 Branham. Subjective Subjective Date/Time Seen: 06/02/25 12:55 Post Op day: 4 (Sharp excisional debridement of left ischial pressure wound) Interval history: No acute events overnight. Per nursing, no issues with the wound bleeding. Dressings were changed once earlier this morning by nursing staff after she had a BM, but no issues with bleeding. Exam Skin: Other: Left ischial wound with packing removed, no areas of bleeding, there is some dark campos necrotic tissue in the center of the wound (about 20%) and the rest of the wound is pink. Sacral wound with pink wound bed, no purulent drainage or necrotic tissue. Right ischial wound with no purulent drainage or necrotic tissue, wound bed 100% pink. Objective Data Vital Signs Vital Signs: Vital Signs - 24 hr 06/01/25 14:00 06/01/25 14:17 06/01/25 16:00 Temperature 97.6 F Pulse Rate 84 94 76 Respiratory Rate 18 Blood Pressure 121/80 Pulse Oximetry 97 Oxygen Delivery 06/01/25 16:00 06/01/25 16:00 06/01/25 18:00 Temperature Pulse Rate 87 80 Respiratory Rate Blood Pressure Pulse Oximetry Oxygen Delivery Room Air 06/01/25 20:00 06/01/25 20:00 06/01/25 20:00 Temperature 99.7 F H Pulse Rate 93 93 Respiratory Rate 18 Blood Pressure 113/72 Pulse Oximetry 96 Oxygen Delivery Room Air 06/01/25 21:13 06/01/25 22:00 06/02/25 00:00 Temperature 99.5 F Pulse Rate 74 82 87 Respiratory Rate 16 Blood Pressure 98/64 L Pulse Oximetry 97 Oxygen Delivery 06/02/25 00:00 06/02/25 00:00 06/02/25 02:00 Temperature Pulse Rate 81 73 Respiratory Rate Blood Pressure Pulse Oximetry Oxygen Delivery Room Air 06/02/25 03:28 06/02/25 04:00 06/02/25 04:00 Temperature 99.1 F Pulse Rate 88 84 Respiratory Rate 18 Blood Pressure 128/75 Pulse Oximetry 96 Oxygen Delivery Room Air 06/02/25 05:16 06/02/25 06:00 06/02/25 07:43 Temperature 97.0 F L Pulse Rate 90 74 78 Respiratory Rate 16 Blood Pressure 120/76 Pulse Oximetry 99 Oxygen Delivery 06/02/25 08:00 06/02/25 08:00 06/02/25 10:00 Temperature Pulse Rate 74 81 Respiratory Rate Blood Pressure Pulse Oximetry Oxygen Delivery Room Air 06/02/25 12:00 Temperature 97.8 F Pulse Rate 80 Respiratory Rate 16 Blood Pressure 124/69 Pulse Oximetry 99 Oxygen Delivery Intake/Output Intake/Output: Intake & Output 05/30/25 05/31/25 06/01/25 06/02/25 23:59 23:59 23:59 23:59 Intake Total 2320 2372.3 1230 1110 Output Total 1200 500 500 550 Balance 1120 1872.3 730 560 Meds/Results Medications: Active Medications Generic Name Dose Route Start Last Admin Trade Name Freq PRN Reason Stop Dose Admin Acetaminophen 500 mg 05/28/25 18:19 Acetaminophen Elixir 325 Mg/10.15 Ml Udc PO Q6H PRN fever or pain rated 1-3 Alteplase, Recombinant 2 mg 05/29/25 19:51 05/29/25 20:22 Alteplase 2 Mg Vial (Cathflo) IV PUSH 2 mg ONCE PRN Administration Line Occlusion Apixaban 5 mg 05/29/25 09:00 05/31/25 08:50 Apixaban 5 Mg Tablet FEED TUBE 5 mg On Hold: 05/31/25 15:02 Q12HR MERLYN Administration Calcium Carbonate 500 mg 06/02/25 12:00 06/02/25 11:19 Calcium Carbonate (Oscal) 500 Mg Tablet PO 500 mg TIDWM MERLYN Administration Citalopram Hydrobromide 30 mg 05/29/25 21:00 06/01/25 21:14 Citalopram Hydrobromide 10 Mg Tablet FEED TUBE 30 mg HS MERLYN Administration Doxycycline Hyclate 100 mg 05/29/25 11:30 06/02/25 08:35 Doxycycline Hyclate 100 Mg Tablet FEED TUBE 06/03/25 21:01 100 mg Q12HR MERLYN Administration Famotidine 20 mg 06/01/25 21:00 06/02/25 08:36 Famotidine 20 Mg Tablet FEED TUBE 20 mg Q12HR MERLYN Administration Heparin Sodium (Beef Lung) 50 units 05/29/25 09:00 06/02/25 08:36 Heparin Flush 50 Units/5 Ml Syringe IV PUSH 50 units QAM MERLYN Administration Heparin Sodium (Beef Lung) 50 units 05/29/25 09:00 Heparin Flush 50 Units/5 Ml Syringe IV PUSH PRN PRN after intermittent infusion Heparin Sodium (Beef Lung) 50 units 05/29/25 09:00 Heparin Flush 50 Units/5 Ml Syringe IV PUSH PRN PRN after blood draws Heparin Sodium (Porcine) 500 units 05/29/25 09:00 Heparin Sodium Lock Flush 500 Units/5 Ml Syringe IV PUSH PRN PRN see comments below Cefepime HCl 2 gm/ Sodium 50 mls @ 100 mls/hr 05/28/25 12:00 06/02/25 11:47 Chloride IVPB Infused Q24H MERLYN Infusion Sodium Chloride 1,000 mls @ 75 mls/hr 05/28/25 18:15 06/02/25 03:09 Normal Saline Iv IV CONT 75 mls/hr .[id number] MERLYN Administration Metoprolol Tartrate 50 mg 05/28/25 22:00 06/02/25 05:16 Metoprolol Tartrate 50 Mg Tab FEED TUBE 50 mg Q8H MERLYN Administration Oxycodone HCl 5 mg 05/28/25 22:00 06/02/25 05:16 Oxycodone Hcl (*Crx) 5 Mg Tab Ir FEED TUBE 5 mg Q8H MERLYN Administration Polyethylene Glycol 17 gm 05/29/25 09:00 06/02/25 08:34 Polyethylene Glycol 3350 17 Gm Powd.Pack FEED TUBE 17 gm QAM MERLYN Administration Pregabalin 75 mg 05/29/25 09:00 06/02/25 08:35 Pregabalin (*Crx) 75 Mg Capsule FEED TUBE 75 mg DAILY MERLYN Administration Quetiapine Fumarate 25 mg 05/29/25 09:00 06/02/25 08:35 Quetiapine Fumarate 25 Mg Tablet FEED TUBE 25 mg DAILY MERLYN Administration Senna/Docusate Sodium 1 tab 05/28/25 21:00 06/01/25 21:14 Senna/Docusate Sodium Tablet FEED TUBE 1 tab HS MERLYN Administration Sodium Bicarbonate 325 mg 06/01/25 21:00 06/02/25 08:35 Sodium Bicarbonate Tab 325 Mg Tablet FEED TUBE 325 mg Q12HR MERLYN Administration Sodium Chloride 10 ml 05/29/25 14:00 06/02/25 05:07 Central Line Flush IV PUSH Not Given Q8HR MERLYN Sodium Hypochlorite 1 applic 05/29/25 09:00 06/02/25 08:38 Sod Hypochlorite 1/4 Strength 473 Ml TOPICAL 1 applic Q12HR MERLYN Administration Thiamine HCl 300 mg 05/29/25 09:00 06/02/25 08:34 Thiamine Hcl 100 Mg Tablet FEED TUBE 300 mg QAM MERLYN Administration Trazodone HCl 50 mg 05/29/25 21:00 06/01/25 21:14 Trazodone Hcl 50 Mg Tablet FEED TUBE 50 mg HS MERLYN Administration Radiology Results: ITS Impressions Chest X-Ray 05/28/25 09:36 IMPRESSION: 1: Right hilum is prominent. The finding is new. Differential includes overlapping vasculature, adenopathy, consolidation or mass. A chest CT is recommended. 2. Small to moderate-sized patchy opacities scattered throughout both lungs. Differential includes but is not limited to edema or pneumonia. Follow-up is recommended. Attention follow-up chest CT imaging. Head CT 05/28/25 09:36 Impression: 1.No acute intracranial abnormality. Chest CT 05/28/25 11:13 IMPRESSION: Bilateral pneumonia. Follow-up recommended to assess resolution. Sacrum and Coccyx X-Ray 05/29/25 10:38 Impression: 1: No acute bone or joint abnormality identified. 2: Bilateral dislocation and remodeling of the hips, likely chronic. 3: If there is concern for osteomyelitis, further evaluation with MRI of the pelvis with contrast recommended. Thoracic Spine X-Ray 05/29/25 10:42 Impression: 1: Limited study due to scoliosis and osteopenia. Mild compression deformities of T8 and T9 with possible additional compression fractures which are difficult to evaluate due to patient rotation, demineralization and immobility. 2: Diffuse bilateral airspace disease which may represent edema or pneumonia. Labs Labs: Laboratory Results - last 24 hr 06/01/25 06/02/25 16:00 05:27 WBC 12.8 H RBC 3.18 L Hgb 7.7 L 8.4 L Hct 24.5 L 27.5 L MCV 86.5 MCH 26.4 MCHC 30.5 L RDW 18.6 H Plt Count 299 MPV 11.5 H Immature Gran % (Auto) 0.5 Neut % (Auto) 75.2 H Lymph % (Auto) 14.0 L [place] % (Auto) 6.2 Eos % (Auto) 3.7 Baso % (Auto) 0.4 Lymph # (Auto) 1.80 [place] # (Auto) 0.8 H Eos # (Auto) 0.5 H Baso # (Auto) 0.1 Abs Immat Gran (auto) 0.06 H Absolute Neuts (auto) 9.6 H Absolute Nucleated RBC 0.000 Nucleated RBC % 0.0 PT 22.7 H D INR 2.1 APTT 76.7 H Sodium 141 Potassium 3.9 Chloride 117 H Carbon Dioxide 18 L Anion Gap 6 BUN 39 H Creatinine 1.31 H Estim Creat Clear Calc 35 Estimated GFR 42 L Glucose 79 Calcium 7.9 L Total Bilirubin 0.6 AST 23 ALT 7 Alkaline Phosphatase 147 H Total Protein 6.1 L Albumin 2.0 L
[2025-06-02] MEDS: CENTRAL LINE FLUSH 10 ML IV PUSH ×2 (14:20→22:00)
--- NOTE | 2025-06-02 17:20 | PM.IMPN ---
Progress Note: A&P Assessment and Plan (1) Acute on chronic anemia: Code(s): D64.9 - Anemia, unspecified Status: Acute (2) Pneumonia: Qualifiers: Laterality: right Lung location: lower lobe of lung Pneumonia type: due to unspecified organism Qualified Code(s): J18.9 - Pneumonia, unspecified organism Code(s): J18.9 - Pneumonia, unspecified organism Status: Acute (3) Tachycardia: Code(s): R00.0 - Tachycardia, unspecified Status: Acute (4) Acute kidney injury: Code(s): N17.9 - Acute kidney failure, unspecified Status: Acute (5) Supratherapeutic INR: Code(s): R79.1 - Abnormal coagulation profile Status: Acute (6) Hypocalcemia: Code(s): E83.51 - Hypocalcemia Status: Acute (7) Essential (primary) hypertension: Code(s): I10 - Essential (primary) hypertension Status: Acute (8) Schizoaffective disorder: Code(s): F25.9 - Schizoaffective disorder, unspecified Status: Acute Plan 1. Acute hypoxia-resolved Likely secondary to pneumonia Presented with leukocytosis, WBC 17.8 on admission-down trending today 12.[address] shows bilateral pneumonia-moderate bi basilar infiltrate-minimal emphysematous change Follow strep pneumo/Legionella antigen Follow blood/urine culture Continue doxycycline for total of 7 days Continue cefepime 2. Acute on chronic anemia On admission, hemoglobin was 5.4 Yesterday's surgery applied gauze and a sliver nitrate on the bleeding site After transfusion, hemoglobin today 8.4 Likely bleeding source is from the I&D site. Patient has stage IV pressure wound on the coccyx area-likely the bleeding source monitor H and h 3. RADHA Likely secondary to pneumonia and acute blood loss anemia IV fluid and blood transfusion Creatinine 1.31 today 4. Multiple stage states of healing Coccygeal wound Likely stage IV pressure ulcer with eschar Status post debridement by General surgery Appreciate recs from General surgery Wound care follow-up Urology consulted for [place] catheter placement due to difficult anatomy-to keep the urine flows without contaminating the wound-urology was unable to place [place]-she might need a suprapubic [place] placement Tentative plan for suprapubic [place] placement on Bea by Urology Sacrum and coccyx x-rays negative for osteomyelitis 5. Schizoaffective disorder Continue home meds including Seroquel, trazodone, and citalopram 6. Hypertension stable 7. History of PE 2024 Patient has PEG tube Continue Eliquis 8. Hypokalemia-on replacement protocol DVT prophylaxis on Eliquis Subjective Date/time seen: 06/02/25 17:20 Interval history: Comfortable at bedside EBC 12.8 from 10.3 Review of Systems Review of Systems: All systems reviewed & are unremarkable except as noted in HPI and below ROS unobtainable: Yes unobtainable due to medical condition and unobtainable due to mental status Exam Narrative: APPEARANCE: Lying in bed comfortably EYES: EOMI HEENT: Normocephalic, atraumatic, OMM RESPIRATORY: No respiratory distress Clear to auscultation bilaterally with no rhonchi wheezing or rales. CARDIOVASCULAR: RRR, S1 and S2 without murmurs rubs or gallops. ABDOMINAL: Soft, nontender, nondistended, no rebound or guarding MSK: Quadriplegia. NEURO: Awake and alert. Following commands, speech normal, no focal deficits SKIN:: Warm, dry. No rashes lesions or abrasions PSYCHIATRIC: Bright affect Objective Data Vital Signs Vital Signs: Vital Signs - 24 hr 06/01/25 18:00 06/01/25 20:00 06/01/25 20:00 Temperature Pulse Rate 80 93 Respiratory Rate Blood Pressure Pulse Oximetry Oxygen Delivery Room Air 06/01/25 20:00 06/01/25 21:13 06/01/25 22:00 Temperature 99.7 F H Pulse Rate 93 74 82 Respiratory Rate 18 Blood Pressure 113/72 Pulse Oximetry 96 Oxygen Delivery 06/02/25 00:00 06/02/25 00:00 06/02/25 00:00 Temperature 99.5 F Pulse Rate 87 81 Respiratory Rate 16 Blood Pressure 98/64 L Pulse Oximetry 97 Oxygen Delivery Room Air 06/02/25 02:00 06/02/25 03:28 06/02/25 04:00 Temperature Pulse Rate 73 88 Respiratory Rate Blood Pressure Pulse Oximetry Oxygen Delivery Room Air 06/02/25 04:00 06/02/25 05:16 06/02/25 06:00 Temperature 99.1 F Pulse Rate 84 90 74 Respiratory Rate 18 Blood Pressure 128/75 Pulse Oximetry 96 Oxygen Delivery 06/02/25 07:43 06/02/25 08:00 06/02/25 08:00 Temperature 97.0 F L Pulse Rate 78 74 Respiratory Rate 16 Blood Pressure 120/76 Pulse Oximetry 99 Oxygen Delivery Room Air 06/02/25 10:00 06/02/25 12:00 06/02/25 12:00 Temperature 97.8 F Pulse Rate 81 80 Respiratory Rate 16 Blood Pressure 124/69 Pulse Oximetry 99 Oxygen Delivery Room Air 06/02/25 12:00 06/02/25 14:00 06/02/25 14:19 Temperature Pulse Rate 79 83 85 Respiratory Rate Blood Pressure Pulse Oximetry Oxygen Delivery 06/02/25 15:51 06/02/25 16:00 06/02/25 16:00 Temperature 97.9 F Pulse Rate 78 75 Respiratory Rate 16 Blood Pressure 136/82 Pulse Oximetry 99 Oxygen Delivery Room Air Intake/Output Intake/Output: Intake & Output 05/30/25 05/31/25 06/01/25 06/02/25 23:59 23:59 23:59 23:59 Intake Total 2320 2372.3 1230 2121 Output Total 1200 773 900 3085 Balance 1120 1872.3 730 971 Meds/Results Medications: Active Medications Generic Name Dose Route Start Last Admin Trade Name Freq PRN Reason Stop Dose Admin Acetaminophen 500 mg 05/28/25 18:19 Acetaminophen Elixir 325 Mg/10.15 Ml Udc PO Q6H PRN fever or pain rated 1-3 Alteplase, Recombinant 2 mg 05/29/25 19:51 05/29/25 20:22 Alteplase 2 Mg Vial (Cathflo) IV PUSH 2 mg ONCE PRN Administration Line Occlusion Apixaban 5 mg 05/29/25 09:00 05/31/25 08:50 Apixaban 5 Mg Tablet FEED TUBE 5 mg On Hold: 05/31/25 15:02 Q12HR MERLYN Administration Calcium Carbonate 500 mg 06/02/25 12:00 06/02/25 17:11 Calcium Carbonate (Oscal) 500 Mg Tablet PO 500 mg TIDWM MERLYN Administration Citalopram Hydrobromide 30 mg 05/29/25 21:00 06/01/25 21:14 Citalopram Hydrobromide 10 Mg Tablet FEED TUBE 30 mg HS MERLYN Administration Doxycycline Hyclate 100 mg 05/29/25 11:30 06/02/25 08:35 Doxycycline Hyclate 100 Mg Tablet FEED TUBE 06/03/25 21:01 100 mg Q12HR MERLYN Administration Famotidine 20 mg 06/01/25 21:00 06/02/25 08:36 Famotidine 20 Mg Tablet FEED TUBE 20 mg Q12HR MERLYN Administration Heparin Sodium (Beef Lung) 50 units 05/29/25 09:00 06/02/25 08:36 Heparin Flush 50 Units/5 Ml Syringe IV PUSH 50 units QAM MERLYN Administration Heparin Sodium (Beef Lung) 50 units 05/29/25 09:00 Heparin Flush 50 Units/5 Ml Syringe IV PUSH PRN PRN after intermittent infusion Heparin Sodium (Beef Lung) 50 units 05/29/25 09:00 Heparin Flush 50 Units/5 Ml Syringe IV PUSH PRN PRN after blood draws Heparin Sodium (Porcine) 500 units 05/29/25 09:00 Heparin Sodium Lock Flush 500 Units/5 Ml Syringe IV PUSH PRN PRN see comments below Cefepime HCl 2 gm/ Sodium 50 mls @ 100 mls/hr 05/28/25 12:00 06/02/25 11:47 Chloride IVPB 06/03/25 12:29 Infused Q24H MERLYN Infusion Metoprolol Tartrate 50 mg 05/28/25 22:00 06/02/25 14:19 Metoprolol Tartrate 50 Mg Tab FEED TUBE 50 mg Q8H MERLYN Administration Oxycodone HCl 5 mg 05/28/25 22:00 06/02/25 14:20 Oxycodone Hcl (*Crx) 5 Mg Tab Ir FEED TUBE 5 mg Q8H MERLYN Administration Polyethylene Glycol 17 gm 05/29/25 09:00 06/02/25 08:34 Polyethylene Glycol 3350 17 Gm Powd.Pack FEED TUBE 17 gm QAM MERLYN Administration Pregabalin 75 mg 05/29/25 09:00 06/02/25 08:35 Pregabalin (*Crx) 75 Mg Capsule FEED TUBE 75 mg DAILY MERLYN Administration Quetiapine Fumarate 25 mg 05/29/25 09:00 06/02/25 08:35 Quetiapine Fumarate 25 Mg Tablet FEED TUBE 25 mg DAILY MERLYN Administration Senna/Docusate Sodium 1 tab 05/28/25 21:00 06/01/25 21:14 Senna/Docusate Sodium Tablet FEED TUBE 1 tab HS MERLYN Administration Sodium Bicarbonate 325 mg 06/01/25 21:00 06/02/25 08:35 Sodium Bicarbonate Tab 325 Mg Tablet FEED TUBE 325 mg Q12HR MERLYN Administration Sodium Chloride 10 ml 05/29/25 14:00 06/02/25 14:20 Central Line Flush IV PUSH 10 ml Q8HR MERLYN Administration Sodium Hypochlorite 1 applic 05/29/25 09:00 06/02/25 08:38 Sod Hypochlorite 1/4 Strength 473 Ml TOPICAL 1 applic Q12HR MERLYN Administration Thiamine HCl 300 mg 05/29/25 09:00 06/02/25 08:34 Thiamine Hcl 100 Mg Tablet FEED TUBE 300 mg QAM MERLYN Administration Trazodone HCl 50 mg 05/29/25 21:00 06/01/25 21:14 Trazodone Hcl 50 Mg Tablet FEED TUBE 50 mg HS MERLYN Administration Radiology Results: ITS Impressions Chest X-Ray 05/28/25 09:36 IMPRESSION: 1: Right hilum is prominent. The finding is new. Differential includes overlapping vasculature, adenopathy, consolidation or mass. A chest CT is recommended. 2. Small to moderate-sized patchy opacities scattered throughout both lungs. Differential includes but is not limited to edema or pneumonia. Follow-up is recommended. Attention follow-up chest CT imaging. Head CT 05/28/25 09:36 Impression: 1.No acute intracranial abnormality. Chest CT 05/28/25 11:13 IMPRESSION: Bilateral pneumonia. Follow-up recommended to assess resolution. Sacrum and Coccyx X-Ray 05/29/25 10:38 Impression: 1: No acute bone or joint abnormality identified. 2: Bilateral dislocation and remodeling of the hips, likely chronic. 3: If there is concern for osteomyelitis, further evaluation with MRI of the pelvis with contrast recommended. Thoracic Spine X-Ray 05/29/25 10:42 Impression: 1: Limited study due to scoliosis and osteopenia. Mild compression deformities of T8 and T9 with possible additional compression fractures which are difficult to evaluate due to patient rotation, demineralization and immobility. 2: Diffuse bilateral airspace disease which may represent edema or pneumonia. Labs Labs: Laboratory Results - last 24 hr 06/02/25 05:27 WBC 12.8 H RBC 3.18 L Hgb 8.4 L Hct 27.5 L MCV 86.5 MCH 26.4 MCHC 30.5 L RDW 18.6 H Plt Count 299 MPV 11.5 H Immature Gran % (Auto) 0.5 Neut % (Auto) 75.2 H Lymph % (Auto) 14.0 L [place] % (Auto) 6.2 Eos % (Auto) 3.7 Baso % (Auto) 0.4 Lymph # (Auto) 1.80 [place] # (Auto) 0.8 H Eos # (Auto) 0.5 H Baso # (Auto) 0.1 Abs Immat Gran (auto) 0.06 H Absolute Neuts (auto) 9.6 H Absolute Nucleated RBC 0.000 Nucleated RBC % 0.0 PT 22.7 H D INR 2.1 APTT 76.7 H Sodium 141 Potassium 3.9 Chloride 117 H Carbon Dioxide 18 L Anion Gap 6 BUN 39 H Creatinine 1.31 H Estim Creat Clear Calc 35 Estimated GFR 42 L Glucose 79 Calcium 7.9 L Total Bilirubin 0.6 AST 23 ALT 7 Alkaline Phosphatase 147 H Total Protein 6.1 L Albumin 2.0 L Quality VTE Prophylaxis VTE prophylaxis: pharmacologic ordered (Eliquis)
[2025-06-02] MEDS: CITALOPRAM HYDROBROMIDE 10 MG TABLET 30 MG FEED TUBE (20:57)
[2025-06-02] MEDS: SENNA/DOCUSATE SODIUM TABLET 1 TAB FEED TUBE (20:57)
[2025-06-03] VITALS (18 sets, daily range): BP systolic 106–145; BP diastolic 65–95; PULSE 70–105; RESP 16–24; TEMP 36.3–36.9; O2SAT 94–100
[2025-06-03] MEDS: SOD HYPOCHLORITE 1/4 STRENGTH 473 ML 1 APPLIC TOPICAL ×2 (02:00→13:36)
[2025-06-03 04:53] LABS: Hematocrit 24.6 % (37.0-47.0); Hemoglobin 7.8 g/dL (12.0-15.0); Immature Granulocyte Percent A 0.8 % (0-0.5); Lymphocytes Absolute Auto 1.73 K/mm3 (0.9-3.2); Mean Corpuscular HGB Conc 31.7 g/dl (32-36); Mean Corpuscular Hemoglobin 27.1 pg (26-34); Mean Corpuscular Volume 85.4 fl (80-100); Nucleated Red Blood Cells Absolute Auto 0.000 K/mm3 (0.0-0.012); Nucleated Red Blood Cells Perc 0.0 % (0.0-0.2); Platelet Count Result 328 k/mm3 (150-375); Red Blood Count 2.88 M/mm3 (4.2-5.4); White Blood Count 11.6 K/mm3 (4.5-10.0)
[2025-06-03 05:12] LABS: Alanine Aminotransferase 6 U/L (6-35); Albumin Level 2.1 g/dL (3.5-5.1); Alkaline Phosphatase 140 U/L (38-126); Anion Gap 8 mmol/L (4-12); Aspartate Amino Transferase 14 U/L (14-36); Bilirubin,Total 0.5 mg/dL (0.2-1.3); Blood Urea Nitrogen 33 mg/dL (7-17); Calcium 8.2 mg/dL (8.4-10.2); Carbon Dioxide 15 mmol/L (22-30); Chloride 116 mmol/L (98-107); Estimated CRCL calculation 37 ml/min; Estimated Glomerular Filt Rate 45; Glucose 77 mg/dL (65-110); Potassium 3.8 mmol/L (3.4-5.0); Sodium 139 mmol/L (137-145); Total Protein 5.9 g/dL (6.3-8.2)
[2025-06-03 05:25] LABS: INR 1.9; Prothrombin Time 20.9 Seconds (11.1-14.7)
[2025-06-03 05:26] LABS: Partial Thromboplastin Time 56.5 Seconds (22.3-36.8)
[2025-06-03] MEDS: oxyCODONE HCL (*CRX) 5 MG TAB IR FEED TUBE ×3 (06:19→21:10)
[2025-06-03] MEDS: METOPROLOL TARTRATE 50 MG TAB FEED TUBE ×3 (06:19→21:28)
[2025-06-03] MEDS: CENTRAL LINE FLUSH 10 ML IV PUSH ×3 (06:23→21:11)
--- NOTE | 2025-06-03 09:34 | PCDIET ---
TUBE FEEDING RECOMMENDATIONS: Jevity 1.5 @ goal rate 50 ml/h. Start at 30 ml/h, advance 10 ml q 4 h. Flush 150 ml q 4 hours. Mix Maged with flushes BID. Provides 1650 kcal, 70 g protein, 1736 ml total water including flushes. Provides 100% EER.
--- NOTE | 2025-06-03 09:41 | PCNFU ---
Nutrition Follow-Up Complete: Severe protein calorie malnutrition related to chronic illness as evidenced by multiple pressure injuries; intakes <75% needs >1 month; weight loss 10%/4 months, 22%/1 year; severe muscle wasting and fat loss Adequate PO intake at least 75% meals and supplements to support wound healing - not meeting goal PO Goal: Pt current nutrition is Regular diet, Ensure +HP TID (350 kcal 20 g protein) , Maged BID for wounds (90 kcal, 2.5 g protein, arginine and glutamine for wound support). Nutrition recommendation: Enteral nutrition administration due to poor appetite. Jevity 1.5 @ goal rate 50 ml/h, Start at 30 ml/h and advance 10 ml q 4 h. Flush 150 ml q 4 h. Mix Maged with flushes BID. Last recorded weight is 52.7 kg. Bowel Motility: +1 BM /. Bowel regimen on board. Labs Reviewed:Hgb 7.8, Hct 24.6, Alb 2.1, BUN 33, Cre 1.22 Meds Noted: Senna, miralax, pepcid Skin: Multiple pressure injuries Stage 3: R back, R knee, R buttock. Unstageable: R foot, R heel, L ischium. Stage 4: Sacrum Additional Notes: Pt with existing PEG that they use for supplemental tube feeds at [facility]. Pt says she is not getting tube feedings at the [facility]. Since intakes are poor we will start tube feeding: Jevity 1.5 @ goal rate 50 ml/h, Start at 30 ml/h and advance 10 ml q 4 h. Flush 150 ml q 4 h. Mix Maged with flushes BID. Provides 1650 kcal, 70 g protein, 1736 ml total free water. Maged for wounds. Communication with RN and MD. Monitoring intakes, skin, weights, labs, supplement tolerance, plan of care Follow up in 5 days
[2025-06-03] MEDS: SODIUM BICARBONATE TAB 325 MG TABLET FEED TUBE ×2 (09:42→21:09)
[2025-06-03] MEDS: PREGABALIN (*CRX) 75 MG CAPSULE FEED TUBE (09:42)
[2025-06-03] MEDS: CALCIUM CARBONATE (OSCAL) 500 MG TABLET PO ×3 (09:42→17:52)
[2025-06-03] MEDS: DOXYCYCLINE HYCLATE 100 MG TABLET FEED TUBE ×2 (09:43→21:09)
[2025-06-03] MEDS: FAMOTIDINE 20 MG TABLET FEED TUBE ×2 (09:43→21:10)
[2025-06-03] MEDS: THIAMINE HCL 100 MG TABLET 300 MG FEED TUBE (09:47)
--- NOTE | 2025-06-03 09:51 | PCCCNOTE ---
Received call from Tiffanie with [facility]. She reports that she received report and will be going to [facility] [place] today. She is aware that patient remains in the hospital and that the guardian has asked for alternate placement. She is also aware that patient has had a debridement of one of her wounds during this hospital stay. She is aware that photos were taken of patient's wounds. She will call back if any additional info is needed.
--- NOTE | 2025-06-03 13:19 | P.PNGS_ITS ---
Progress Note: A&P Assessment and Plan (1) Supratherapeutic INR: Code(s): R79.1 - Abnormal coagulation profile Status: Acute Assessment and Plan: * INR still 1.9 and PTT 56 after Eliquis has been held for multiple days. We are concerned that she would continue to have bleeding issues with her wounds if her Eliquis is resumed back at the same dose she was on previously. Discussed these concerns with the Hospitalist, who is going to look at other options for anticoagulation once it is appropriate for it to be resumed. (2) Decubitus ulcer, infected: Qualifiers: Pressure injury stage: stage 4 Qualified Code(s): L89.94 - Pressure ulcer of unspecified site, stage 4; L08.9 - Local infection of the skin and subcutaneous tissue, unspecified Code(s): L89.90 - Pressure ulcer of unspecified site, unspecified stage; L08.9 - Local infection of the skin and subcutaneous tissue, unspecified Status: Chronic Assessment and Plan: * No issues with bleeding from the left ischial wound for the past few days. Would continue to hold anticoagulation for now, especially if Urology is planning to proceed with suprapubic catheter in the next few days. 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 Branham. Subjective Subjective Date/Time Seen: 06/03/25 13:19 Interval history: Patient seen with nursing at the bedside. No issues with bleeding from her wounds overnight. Staff did have to change her dressing at least 2 times overnight and already again this morning due to having bowel movements that soil the dressings on the sacral and ischial wounds. Exam Const: General: comfortable and no acute distress Skin: Other: Left ischial wound with packing removed, no areas of bleeding, there is some dark capmos necrotic tissue in the center of the wound (about 20%) with also some areas of granulating tissue. Sacral wound with pink wound bed, no purulent drainage or necrotic tissue. Right ischial wound with no purulent drainage or necrotic tissue, wound bed 100% pink. Objective Data Vital Signs Vital Signs: Vital Signs - 24 hr 06/02/25 14:00 06/02/25 14:19 06/02/25 15:51 Temperature 97.9 F Pulse Rate 83 85 78 Respiratory Rate 16 Blood Pressure 136/82 Pulse Oximetry 99 Oxygen Delivery 06/02/25 16:00 06/02/25 16:00 06/02/25 18:00 Temperature Pulse Rate 75 78 Respiratory Rate Blood Pressure Pulse Oximetry Oxygen Delivery Room Air 06/02/25 19:05 06/02/25 20:00 06/02/25 21:08 Temperature 98.1 F Pulse Rate 81 78 Respiratory Rate 18 Blood Pressure 139/87 Pulse Oximetry 99 Oxygen Delivery Room Air 06/02/25 21:38 06/02/25 22:00 06/02/25 23:12 Temperature 98.0 F Pulse Rate 84 83 87 Respiratory Rate 18 Blood Pressure 107/74 Pulse Oximetry 97 Oxygen Delivery 06/03/25 00:00 06/03/25 00:00 06/03/25 02:05 Temperature Pulse Rate 72 70 Respiratory Rate Blood Pressure Pulse Oximetry Oxygen Delivery Room Air 06/03/25 04:00 06/03/25 04:00 06/03/25 04:00 Temperature 98.5 F Pulse Rate 82 85 Respiratory Rate 17 Blood Pressure 121/79 Pulse Oximetry 97 Oxygen Delivery Room Air 06/03/25 06:19 06/03/25 06:35 06/03/25 08:27 Temperature 97.6 F Pulse Rate 81 72 74 Respiratory Rate 16 Blood Pressure 136/88 Pulse Oximetry 98 Oxygen Delivery 06/03/25 11:03 06/03/25 11:12 06/03/25 11:51 Temperature 98.1 F 98.1 F Pulse Rate 97 97 Respiratory Rate 20 20 Blood Pressure 130/84 130/84 Pulse Oximetry 94 94 Oxygen Delivery Room Air Intake/Output Intake/Output: Intake & Output 05/31/25 06/01/25 06/02/25 06/03/25 23:59 23:59 23:59 23:59 Intake Total 2372.3 1230 2491 Output Total 175 225 3908 600 Balance 1872.3 730 1341 -600 Meds/Results Medications: Active Medications Generic Name Dose Route Start Last Admin Trade Name Freq PRN Reason Stop Dose Admin Acetaminophen 500 mg 05/28/25 18:19 Acetaminophen Elixir 325 Mg/10.15 Ml Udc PO Q6H PRN fever or pain rated 1-3 Alteplase, Recombinant 2 mg 05/29/25 19:51 05/29/25 20:22 Alteplase 2 Mg Vial (Cathflo) IV PUSH 2 mg ONCE PRN Administration Line Occlusion Apixaban 5 mg 05/29/25 09:00 05/31/25 08:50 Apixaban 5 Mg Tablet FEED TUBE 5 mg On Hold: 05/31/25 15:02 Q12HR MERLYN Administration Calcium Carbonate 500 mg 06/02/25 12:00 06/03/25 09:42 Calcium Carbonate (Oscal) 500 Mg Tablet PO 500 mg TIDWM MERLYN Administration Citalopram Hydrobromide 30 mg 05/29/25 21:00 06/02/25 20:57 Citalopram Hydrobromide 10 Mg Tablet FEED TUBE 30 mg HS MERLYN Administration Doxycycline Hyclate 100 mg 05/29/25 11:30 06/03/25 09:43 Doxycycline Hyclate 100 Mg Tablet FEED TUBE 06/03/25 21:01 100 mg Q12HR MERLYN Administration Famotidine 20 mg 06/01/25 21:00 06/03/25 09:43 Famotidine 20 Mg Tablet FEED TUBE 20 mg Q12HR MERLYN Administration Heparin Sodium (Beef Lung) 50 units 05/29/25 09:00 06/03/25 09:44 Heparin Flush 50 Units/5 Ml Syringe IV PUSH 50 units QAM MERLYN Administration Heparin Sodium (Beef Lung) 50 units 05/29/25 09:00 Heparin Flush 50 Units/5 Ml Syringe IV PUSH PRN PRN after intermittent infusion Heparin Sodium (Beef Lung) 50 units 05/29/25 09:00 Heparin Flush 50 Units/5 Ml Syringe IV PUSH PRN PRN after blood draws Heparin Sodium (Porcine) 500 units 05/29/25 09:00 Heparin Sodium Lock Flush 500 Units/5 Ml Syringe IV PUSH PRN PRN see comments below Metoprolol Tartrate 50 mg 05/28/25 22:00 06/03/25 06:19 Metoprolol Tartrate 50 Mg Tab FEED TUBE 50 mg Q8H MERLYN Administration Oxycodone HCl 5 mg 05/28/25 22:00 06/03/25 06:19 Oxycodone Hcl (*Crx) 5 Mg Tab Ir FEED TUBE 5 mg Q8H MERLYN Administration Polyethylene Glycol 17 gm 05/29/25 09:00 06/03/25 09:43 Polyethylene Glycol 3350 17 Gm Powd.Pack FEED TUBE 17 gm QAM MERLYN Administration Pregabalin 75 mg 05/29/25 09:00 06/03/25 09:42 Pregabalin (*Crx) 75 Mg Capsule FEED TUBE 75 mg DAILY MERLYN Administration Quetiapine Fumarate 25 mg 05/29/25 09:00 06/03/25 09:44 Quetiapine Fumarate 25 Mg Tablet FEED TUBE 25 mg DAILY MERLYN Administration Senna/Docusate Sodium 1 tab 05/28/25 21:00 06/02/25 20:57 Senna/Docusate Sodium Tablet FEED TUBE 1 tab HS MERLYN Administration Sodium Bicarbonate 325 mg 06/01/25 21:00 06/03/25 09:42 Sodium Bicarbonate Tab 325 Mg Tablet FEED TUBE 325 mg Q12HR MERLYN Administration Sodium Chloride 10 ml 05/29/25 14:00 06/03/25 06:23 Central Line Flush IV PUSH 10 ml Q8HR MERLYN Administration Sodium Hypochlorite 1 applic 05/29/25 09:00 06/03/25 02:00 Sod Hypochlorite 1/4 Strength 473 Ml TOPICAL 1 applic Q12HR MERLYN Administration Thiamine HCl 300 mg 05/29/25 09:00 06/03/25 09:47 Thiamine Hcl 100 Mg Tablet FEED TUBE 300 mg QAM MERLYN Administration Trazodone HCl 50 mg 05/29/25 21:00 06/02/25 20:57 Trazodone Hcl 50 Mg Tablet FEED TUBE 50 mg HS MERLYN Administration Radiology Results: ITS Impressions Chest X-Ray 05/28/25 09:36 IMPRESSION: 1: Right hilum is prominent. The finding is new. Differential includes overlapping vasculature, adenopathy, consolidation or mass. A chest CT is recommended. 2. Small to moderate-sized patchy opacities scattered throughout both lungs. Differential includes but is not limited to edema or pneumonia. Follow-up is recommended. Attention follow-up chest CT imaging. Head CT 05/28/25 09:36 Impression: 1.No acute intracranial abnormality. Chest CT 05/28/25 11:13 IMPRESSION: Bilateral pneumonia. Follow-up recommended to assess resolution. Sacrum and Coccyx X-Ray 05/29/25 10:38 Impression: 1: No acute bone or joint abnormality identified. 2: Bilateral dislocation and remodeling of the hips, likely chronic. 3: If there is concern for osteomyelitis, further evaluation with MRI of the pelvis with contrast recommended. Thoracic Spine X-Ray 05/29/25 10:42 Impression: 1: Limited study due to scoliosis and osteopenia. Mild compression deformities of T8 and T9 with possible additional compression fractures which are difficult to evaluate due to patient rotation, demineralization and immobility. 2: Diffuse bilateral airspace disease which may represent edema or pneumonia. Labs Labs: Laboratory Results - last 24 hr 06/03/25 06/03/25 04:09 04:47 WBC 11.6 H RBC 2.88 L Hgb 7.8 L Hct 24.6 L MCV 85.4 MCH 27.1 MCHC 31.7 L RDW 18.7 H Plt Count 328 MPV 11.8 H Immature Gran % (Auto) 0.8 H Neut % (Auto) 73.1 Lymph % (Auto) 15.0 L [place] % (Auto) 5.7 Eos % (Auto) 5.1 H Baso % (Auto) 0.3 Lymph # (Auto) 1.73 [place] # (Auto) 0.7 H Eos # (Auto) 0.6 H Baso # (Auto) 0.0 Abs Immat Gran (auto) 0.09 H Absolute Neuts (auto) 8.5 H Absolute Nucleated RBC 0.000 Nucleated RBC % 0.0 PT 20.9 H INR 1.9 APTT 56.5 H Sodium 139 Potassium 3.8 Chloride 116 H Carbon Dioxide 15 L Anion Gap 8 BUN 33 H Creatinine 1.22 H Estim Creat Clear Calc 37 Estimated GFR 45 L Glucose 77 Calcium 8.2 L Total Bilirubin 0.5 AST 14 ALT 6 Alkaline Phosphatase 140 H Total Protein 5.9 L Albumin 2.1 L
[2025-06-03] MEDS: CEFEPIME 2 GM in SODIUM CHLORIDE 0.9% IV 50 ML IVPB (14:17)
[2025-06-03] MEDS: ALTEPLASE 2 MG VIAL (CATHFLO) IV PUSH (14:34)
--- NOTE | 2025-06-03 15:09 | P.PNIM_ITS ---
Progress Note: A&P Assessment and Plan (1) Schizoaffective disorder: Code(s): F25.9 - Schizoaffective disorder, unspecified Status: Acute (2) Generalized anxiety disorder: Code(s): F41.1 - Generalized anxiety disorder Status: Acute (3) Essential (primary) hypertension: Code(s): I10 - Essential (primary) hypertension Status: Acute (4) Supratherapeutic INR: Code(s): R79.1 - Abnormal coagulation profile Status: Acute (5) Pulmonary embolism: Code(s): I26.99 - Other pulmonary embolism without acute cor pulmonale Status: Acute (6) Elevated d-dimer: Code(s): R79.89 - Other specified abnormal findings of blood chemistry Status: Acute (7) Malnutrition: Code(s): E46 - Unspecified protein-calorie malnutrition Status: Acute (8) Acute kidney injury: Code(s): N17.9 - Acute kidney failure, unspecified Status: Acute (9) Anemia: Qualifiers: Anemia type: other cause Other causes of anemia: acute posthemorrhagic Qualified Code(s): D62 - Acute posthemorrhagic anemia Code(s): D64.9 - Anemia, unspecified Status: Acute (10) Acute on chronic anemia: Code(s): D64.9 - Anemia, unspecified Status: Acute (11) Pressure ulcers of skin of multiple topographic sites: Code(s): L89.90 - Pressure ulcer of unspecified site, unspecified stage Status: Chronic (12) Decubitus ulcer, infected: Qualifiers: Pressure injury stage: stage 4 Qualified Code(s): L89.94 - Pressure ulcer of unspecified site, stage 4; L08.9 - Local infection of the skin and subcutaneous tissue, unspecified Code(s): L89.90 - Pressure ulcer of unspecified site, unspecified stage; L08.9 - Local infection of the skin and subcutaneous tissue, unspecified Status: Chronic Plan 1. Acute hypoxia-resolved Likely secondary to pneumonia Presented with leukocytosis, WBC 17.8 on admission-down trending today 11.[address] shows bilateral pneumonia-moderate bi basilar infiltrate-minimal emphy sematous change Follow strep pneumo/Legionella antigen Follow blood/urine culture Continue doxycycline for total of 7 days Continue cefepime 2. Acute on chronic anemia On admission, hemoglobin was 5.4 surgery applied gauze and a sliver nitrate on the bleeding site After transfusion, hemoglobin today 7.8 Likely bleeding source is from the I&D site. Patient has stage IV pressure wound on the coccyx area-likely the bleeding source monitor H and h 3. RADHA Likely secondary to pneumonia and acute blood loss anemia IV fluid and blood transfusion Creatinine 1.22 today 4. Multiple stage states of healing Coccygeal wound Likely stage IV pressure ulcer with eschar Status post debridement by General surgery Appreciate recs from General surgery Wound care follow-up Urology consulted for Naranjo catheter placement due to difficult anatomy-to keep the urine flows without contaminating the wound-urology was unable to place Naranjo-she might need a suprapubic Naranjo placement Tentative plan for suprapubic Naranjo placement on Sunday by Urology Sacrum and coccyx x-rays negative for osteomyelitis 5. Schizoaffective disorder Continue home meds including Seroquel, trazodone, and citalopram 6. Hypertension stable 7. History of PE 2024 Patient has PEG tube Eliquis has been on hold Surgery has expressed concerns that Eliquis might not be a good option given her ongoing anemia Would benefit from Hematology evaluation, no one available today 8. Poor p.o. intake: Can resume tube feedings Appreciate dietitian help DVT prophylaxis: SCDs 9. Code status: Full 10. Disposition: Pending improvement Time Spent With Patient Time: 41 mins Subjective Date/time seen: 06/03/25 15:09 Interval history: No acute events overnight Review of Systems Review of Systems: All systems reviewed & are unremarkable except as noted in HPI and below Exam Narrative: APPEARANCE: Lying in bed comfortably EYES: EOMI HEENT: Normocephalic, atraumatic, OMM RESPIRATORY: No respiratory distress Clear to auscultation bilaterally with no rhonchi wheezing or rales. CARDIOVASCULAR: RRR, S1 and S2 without murmurs rubs or gallops. ABDOMINAL: Soft, nontender, nondistended, no rebound or guarding MSK: Quadriplegia. NEURO: Awake and alert. Following commands, speech normal, no focal deficits SKIN:: Warm, dry. No rashes lesions or abrasions PSYCHIATRIC: Bright affect Objective Data Vital Signs Vital Signs: Vital Signs - 24 hr 06/02/25 15:51 06/02/25 16:00 06/02/25 16:00 Temperature 97.9 F Pulse Rate 78 75 Respiratory Rate 16 Blood Pressure 136/82 Pulse Oximetry 99 Oxygen Delivery Room Air 06/02/25 18:00 06/02/25 19:05 06/02/25 20:00 Temperature 98.1 F Pulse Rate 78 81 Respiratory Rate 18 Blood Pressure 139/87 Pulse Oximetry 99 Oxygen Delivery Room Air 06/02/25 21:08 06/02/25 21:38 06/02/25 22:00 Temperature Pulse Rate 78 84 83 Respiratory Rate Blood Pressure Pulse Oximetry Oxygen Delivery 06/02/25 23:12 06/03/25 00:00 06/03/25 00:00 Temperature 98.0 F Pulse Rate 87 72 Respiratory Rate 18 Blood Pressure 107/74 Pulse Oximetry 97 Oxygen Delivery Room Air 06/03/25 02:05 06/03/25 04:00 06/03/25 04:00 Temperature 98.5 F Pulse Rate 70 82 Respiratory Rate 17 Blood Pressure 121/79 Pulse Oximetry 97 Oxygen Delivery Room Air 06/03/25 04:00 06/03/25 06:19 06/03/25 06:35 Temperature Pulse Rate 85 81 72 Respiratory Rate Blood Pressure Pulse Oximetry Oxygen Delivery 06/03/25 08:27 06/03/25 11:03 06/03/25 11:12 Temperature 97.6 F 98.1 F Pulse Rate 74 97 Respiratory Rate 16 20 Blood Pressure 136/88 130/84 Pulse Oximetry 98 94 Oxygen Delivery Room Air 06/03/25 11:51 06/03/25 14:17 Temperature 98.1 F Pulse Rate 97 105 H Respiratory Rate 20 Blood Pressure 130/84 Pulse Oximetry 94 Oxygen Delivery Intake/Output Intake/Output: Intake & Output 05/31/25 06/01/25 06/02/25 06/03/25 23:59 23:59 23:59 23:59 Intake Total 2372.3 1230 2491 50 Output Total 012 893 4937 600 Balance 1872.3 730 1341 -550 Meds/Results Medications: Active Medications Generic Name Dose Route Start Last Admin Trade Name Freq PRN Reason Stop Dose Admin Acetaminophen 500 mg 05/28/25 18:19 Acetaminophen Elixir 325 Mg/10.15 Ml Udc PO Q6H PRN fever or pain rated 1-3 Alteplase, Recombinant 2 mg 05/29/25 19:51 06/03/25 14:34 Alteplase 2 Mg Vial (Cathflo) IV PUSH 2 mg ONCE PRN Administration Line Occlusion Apixaban 5 mg 05/29/25 09:00 05/31/25 08:50 Apixaban 5 Mg Tablet FEED TUBE 5 mg On Hold: 05/31/25 15:02 Q12HR MERLYN Administration Calcium Carbonate 500 mg 06/02/25 12:00 06/03/25 14:17 Calcium Carbonate (Oscal) 500 Mg Tablet PO 500 mg TIDWM MERLYN Administration Citalopram Hydrobromide 30 mg 05/29/25 21:00 06/02/25 20:57 Citalopram Hydrobromide 10 Mg Tablet FEED TUBE 30 mg HS MERLYN Administration Doxycycline Hyclate 100 mg 05/29/25 11:30 06/03/25 09:43 Doxycycline Hyclate 100 Mg Tablet FEED TUBE 06/03/25 21:01 100 mg Q12HR MERLYN Administration Famotidine 20 mg 06/01/25 21:00 06/03/25 09:43 Famotidine 20 Mg Tablet FEED TUBE 20 mg Q12HR MERLYN Administration Heparin Sodium (Beef Lung) 50 units 05/29/25 09:00 06/03/25 09:44 Heparin Flush 50 Units/5 Ml Syringe IV PUSH 50 units QAM MERLYN Administration Heparin Sodium (Beef Lung) 50 units 05/29/25 09:00 Heparin Flush 50 Units/5 Ml Syringe IV PUSH PRN PRN after intermittent infusion Heparin Sodium (Beef Lung) 50 units 05/29/25 09:00 Heparin Flush 50 Units/5 Ml Syringe IV PUSH PRN PRN after blood draws Heparin Sodium (Porcine) 500 units 05/29/25 09:00 Heparin Sodium Lock Flush 500 Units/5 Ml Syringe IV PUSH PRN PRN see comments below Metoprolol Tartrate 50 mg 05/28/25 22:00 06/03/25 14:17 Metoprolol Tartrate 50 Mg Tab FEED TUBE 50 mg Q8H MERLYN Administration Oxycodone HCl 5 mg 05/28/25 22:00 06/03/25 14:17 Oxycodone Hcl (*Crx) 5 Mg Tab Ir FEED TUBE 5 mg Q8H MERLYN Administration Polyethylene Glycol 17 gm 05/29/25 09:00 06/03/25 09:43 Polyethylene Glycol 3350 17 Gm Powd.Pack FEED TUBE 17 gm QAM MERLYN Administration Pregabalin 75 mg 05/29/25 09:00 06/03/25 09:42 Pregabalin (*Crx) 75 Mg Capsule FEED TUBE 75 mg DAILY MERLYN Administration Quetiapine Fumarate 25 mg 05/29/25 09:00 06/03/25 09:44 Quetiapine Fumarate 25 Mg Tablet FEED TUBE 25 mg DAILY MERLYN Administration Senna/Docusate Sodium 1 tab 05/28/25 21:00 06/02/25 20:57 Senna/Docusate Sodium Tablet FEED TUBE 1 tab HS MERLYN Administration Sodium Bicarbonate 325 mg 06/01/25 21:00 06/03/25 09:42 Sodium Bicarbonate Tab 325 Mg Tablet FEED TUBE 325 mg Q12HR MERLYN Administration Sodium Chloride 10 ml 05/29/25 14:00 06/03/25 14:28 Central Line Flush IV PUSH 10 ml Q8HR MERLYN Administration Sodium Hypochlorite 1 applic 05/29/25 09:00 06/03/25 13:36 Sod Hypochlorite 1/4 Strength 473 Ml TOPICAL 1 applic Q12HR MERLYN Administration Thiamine HCl 300 mg 05/29/25 09:00 06/03/25 09:47 Thiamine Hcl 100 Mg Tablet FEED TUBE 300 mg QAM MERLYN Administration Trazodone HCl 50 mg 05/29/25 21:00 06/02/25 20:57 Trazodone Hcl 50 Mg Tablet FEED TUBE 50 mg HS MERLYN Administration Radiology Results: ITS Impressions Chest X-Ray 05/28/25 09:36 IMPRESSION: 1: Right hilum is prominent. The finding is new. Differential includes overlapping vasculature, adenopathy, consolidation or mass. A chest CT is recommended. 2. Small to moderate-sized patchy opacities scattered throughout both lungs. Differential includes but is not limited to edema or pneumonia. Follow-up is recommended. Attention follow-up chest CT imaging. Head CT 05/28/25 09:36 Impression: 1.No acute intracranial abnormality. Chest CT 05/28/25 11:13 IMPRESSION: Bilateral pneumonia. Follow-up recommended to assess resolution. Sacrum and Coccyx X-Ray 05/29/25 10:38 Impression: 1: No acute bone or joint abnormality identified. 2: Bilateral dislocation and remodeling of the hips, likely chronic. 3: If there is concern for osteomyelitis, further evaluation with MRI of the pelvis with contrast recommended. Thoracic Spine X-Ray 05/29/25 10:42 Impression: 1: Limited study due to scoliosis and osteopenia. Mild compression deformities of T8 and T9 with possible additional compression fractures which are difficult to evaluate due to patient rotation, demineralization and immobility. 2: Diffuse bilateral airspace disease which may represent edema or pneumonia. Labs Labs: Laboratory Results - last 24 hr 06/03/25 06/03/25 04:09 04:47 WBC 11.6 H RBC 2.88 L Hgb 7.8 L Hct 24.6 L MCV 85.4 MCH 27.1 MCHC 31.7 L RDW 18.7 H Plt Count 328 MPV 11.8 H Immature Gran % (Auto) 0.8 H Neut % (Auto) 73.1 Lymph % (Auto) 15.0 L [place] % (Auto) 5.7 Eos % (Auto) 5.1 H Baso % (Auto) 0.3 Lymph # (Auto) 1.73 [place] # (Auto) 0.7 H Eos # (Auto) 0.6 H Baso # (Auto) 0.0 Abs Immat Gran (auto) 0.09 H Absolute Neuts (auto) 8.5 H Absolute Nucleated RBC 0.000 Nucleated RBC % 0.0 PT 20.9 H INR 1.9 APTT 56.5 H Sodium 139 Potassium 3.8 Chloride 116 H Carbon Dioxide 15 L Anion Gap 8 BUN 33 H Creatinine 1.22 H Estim Creat Clear Calc 37 Estimated GFR 45 L Glucose 77 Calcium 8.2 L Total Bilirubin 0.5 AST 14 ALT 6 Alkaline Phosphatase 140 H Total Protein 5.9 L Albumin 2.1 L Quality VTE Prophylaxis VTE prophylaxis: mechanical ordered
--- NOTE | 2025-06-03 16:25 | PC.NURSE ---
On 06/03/25, the student, Anali, provided care and completed [facility] documentation on this patient. I have reviewed the student's documentation and agree with the findings.
--- NOTE | 2025-06-03 18:07 | WPDONCCN ---
Assessment and Plan Assessment and plan (1) Coagulopathy: Code(s): D68.9 - Coagulation defect, unspecified Status: Acute Assessment and Plan: Patient with coagulopathy from Eliquis (PE hx) use with last use likely at detention on 05/27/25 as she presented [facility] administrator in the ER on 05/28/25. Patient presented with acute renal failure with GFR of 18. Continued increase in coagulation profile after discontinuation of the DOAC is observed in patients with reduced GFR. In addition, due to malnutrition production of coagulation factors is low from the liver. Therefore, it is not uncommon to see this prolonged period of deranged coagulation parameters. At times, getting PT/PTT from peripheral veins rather than heparinized line can rule out contamination. Nevertheless, it seems that suprapubic catheter surgery is extremely important for this patient to heal the decubitus ulcers in the setting of inability to put the uretheral catheter. Eliquis induced prolonged PT/PTT can be reversed by Andexanet lisa (decoy receptor for factor Xa inhibitors like Eliquis). If Andexanet is not available we can administer four-factor Prothrombin Complex Concentrate (4F-PCC). Alternatively patient can be transfered to center of higher acuity for this surgery for optimal management of reversal agent and surgery timing. HPI Data of Consult Date/Time: 06/03/25 18:07 Requesting Physician: Barbara Evans MD Primary Care Provider: Luis Eduardo Quiroga, Consult Narrative Narrative: Yesenia Perez is a 59 year old past medical history history of PE, schizoaffective disorder, multiple sclerosis quadriplegia, chronic kidney disease, COPD [facility] and [facility]. Per her detention her mental status is A&O x1 at baseline. Labs done in ER showed leukocytosis with WBC of 17.8, anemia with Hemoglobin of 5.4, INR 4.3, BUN of 86, creatinine of 2.66 with previous creatinine being 1.09, GFR 18, calcium 7.5. Head CT shows no acute process. Chest CT showed bilateral pneumonia. EKG shows sinus tachycardia 109. Patient was on Dabigatran for previous hx of PE. With supratherapeutic INR dabigatran was held at admission. Patient was found to have multiple stage IV and unstageable pressure ulcers to her upper back, sacrum, ischium, right foot and heel. Some of these were present during admission in December 2024, while the foot and heel wounds were new per general surgery evaluation. Left ischium wound appeared to be the most severe. Patient underwent Sharp excisional debridement of left ischial pressure wound on 05/29/25. It was thought that patient's urine and stool incontinence has exacerbated her ischial ulcer. Urology was consulted for uretheral catheter placement. Dr. Can saw the patient and attempted Naranjo catheter placement. Due to marked contractures and recessed urethra is in of a urethral catheter with changes monthly is not feasible. He recommended placement of a suprapubic catheter. However, due to deranged coagulation labs urology canceled the procedure. Urology recommended INR to be less than 1.5 and aPTT normal (less than 35 secs) to be able to undergo suprapubic catheter placement. Patient's Dabigatran has been on hold since 05/28/25. Her PT, PTT has slowly decreased but not normalized. Oncology is consulted for the further management. Review of Systems Review of Systems: Patient not communicative. [facility] Past Medical History Medical History (Updated 06/04/25 @ 18:34 by Valerie Tolbert MD) Chronic kidney disease, stage 3 Anorexia Malnutrition Pulmonary embolism (2014) Xanthogranulomatous pyelonephritis MRSA infection Urinary tract infection due to extended-spectrum beta lactamase (ESBL) producing Escherichia coli Chronic respiratory failure with hypoxia, on home oxygen therapy Previously documented that the patient is oxygen dependent on 4 L nasal cannula however she denies and is on room air with good SpO2 as of 07/27/2023. Chronic obstructive pulmonary disease Pyelonephritis Anemia Hyperlipidemia Dementia Functional quadriplegia secondary to MS Depression Generalized anxiety disorder Essential (primary) hypertension Calculus of kidney Extended spectrum beta lactamase (ESBL) resistance GI bleed Intestinal obstruction Urinary retention Overactive bladder Colitis Schizoaffective disorder Asthma Multiple sclerosis Surgical History Surgical History (Updated 05/29/25 @ 06:36 by Tammi Feng DO) Status post insertion of percutaneous endoscopic gastrostomy (PEG) tube (12/2023) History of removal of ureteral stent History of tubal ligation 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 History of nephrostomy Family History Family History Mother Family history of multiple sclerosis Hypertension Father Patient's father is Social History Social History Social History: Patient is a [facility] of the [facility]. Her guardian is Abe Burnham ([phone]). Code status: Full code. Smoking packs per day: 0.5 Smoking cigarettes per day: 10.0 Years smoked: 1 Smoking pack-years: 0.50 Smoking status: Never smoker Second hand tobacco smoke exposure: No Alcohol intake: never Substance use: never Do You Feel Safe in your Home?: Yes Lack of Transportation: No Lack of Food: Never True Current Housing: I Have Housing Concerned About Future Housing: No Difficulty Paying Gas/Electric Bills: No Difficulty Paying for Meds: No Currently Unemployed: No Education: Don't Know Difficulty w/ Childcare or Family Care: No Living arrangements: detention Additional living arrangements comments: 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ion: other Additional occupation/education comments: Disabled Spiritual care concerns: No Agree to blood products: Yes Meds Home Medications and Allergies Home Medications ?Medication ?Instructions ?Recorded ?Confirmed ?Type cholecalciferol (vitamin D3) 1,000 units G-tube DAILY 12/17/22 05/28/25 History famotidine 20 mg tablet 20 mg feeding tube BID 12/17/22 05/28/25 History ondansetron 4 mg disintegrating 4 mg PO QID PRN Nausea And Vomiting 12/17/22 05/28/25 History tablet trazodone 50 mg tablet 50 mg feeding tube HS 12/17/22 05/28/25 History sennosides 8.6 mg tablet (senna) 8.6 mg feeding tube DAILY PRN 07/27/23 05/28/25 History Constipation thiamine HCl (vitamin B1) 100 mg 300 mg (3 x 100 mg) feeding tube 01/31/24 05/28/25 Rx tablet (Vitamin B-1) QAM #90 tabs citalopram 20 mg tablet 30 mg feeding tube HS 06/20/24 05/28/25 History dextran 70-hypromellose eye drops 1 drp EACH EYE TID 06/20/24 05/28/25 History (Artificial Tears (dextran 70-hypromellose) eye drops) metoprolol tartrate 50 mg tablet 50 mg feeding tube Q8H 06/20/24 05/28/25 History pregabalin 75 mg capsule 75 mg feeding tube DAILY 06/20/24 05/28/25 History polyethylene glycol 3350 17 gram 17 g PO QAM #30 ea 07/17/24 05/28/25 Rx oral powder packet (Miralax) acetaminophen 160 mg/5 mL oral 500 mg PO Q6H PRN fever or pain 01/13/25 05/28/25 History elixir arginine 7 gram-glutamine 7 1 ea PO BID 01/13/25 05/28/25 History gram-calcium HMB 1.5 gram oral powder pack (Maged) bisacodyl 5 mg tablet,delayed 10 mg PO DAILY 01/13/25 05/28/25 History release ipratropium bromide 0.02 % 1.25 ml inhalation DAILY PRN 01/13/25 05/28/25 History solution for inhalation shortness of breath or wheezing oxycodone 5 mg capsule 5 mg feeding tube Q8H #10 caps 01/18/25 05/28/25 Rx sodium hypochlorite 0.125 % 1 applic topical Q12HR #1,000 mL 01/18/25 05/28/25 Rx solution (Dakin's Solution) dabigatran etexilate 150 mg capsule 150 mg PO BID 05/28/25 05/28/25 History furosemide 20 mg tablet 20 mg PO DAILY 05/28/25 05/28/25 History quetiapine 25 mg tablet 25 mg PO DAILY 05/28/25 05/28/25 History sodium bicarbonate 650 mg tablet 325 mg PO BID 05/28/25 05/28/25 History Allergies Allergy/AdvReac Type Severity Reaction Status Date / Time No Known Allergies Allergy Verified 01/13/25 11:11 Vital Signs Vital Signs - 24 hr 06/02/25 19:05 06/02/25 20:00 06/02/25 21:08 Temperature 36.7 C Pulse Rate 81 78 Respiratory Rate 18 Blood Pressure 139/87 Pulse Oximetry 99 Oxygen Delivery Room Air 06/02/25 21:38 06/02/25 22:00 06/02/25 23:12 Temperature 36.7 C Pulse Rate 84 83 87 Respiratory Rate 18 Blood Pressure 107/74 Pulse Oximetry 97 Oxygen Delivery 06/03/25 00:00 06/03/25 00:00 06/03/25 02:05 Temperature Pulse Rate 72 70 Respiratory Rate Blood Pressure Pulse Oximetry Oxygen Delivery Room Air 06/03/25 04:00 06/03/25 04:00 06/03/25 04:00 Temperature 36.9 C Pulse Rate 82 85 Respiratory Rate 17 Blood Pressure 121/79 Pulse Oximetry 97 Oxygen Delivery Room Air 06/03/25 06:19 06/03/25 06:35 06/03/25 08:00 Temperature Pulse Rate 81 72 76 Respiratory Rate Blood Pressure Pulse Oximetry Oxygen Delivery 06/03/25 08:27 06/03/25 10:00 06/03/25 11:03 Temperature 36.4 C Pulse Rate 74 77 Respiratory Rate 16 Blood Pressure 136/88 Pulse Oximetry 98 Oxygen Delivery Room Air 06/03/25 11:12 06/03/25 11:51 06/03/25 12:00 Temperature 36.7 C 36.7 C Pulse Rate 97 97 92 Respiratory Rate 20 20 Blood Pressure 130/84 130/84 Pulse Oximetry 94 94 Oxygen Delivery 06/03/25 14:00 06/03/25 14:17 06/03/25 16:00 Temperature Pulse Rate 95 105 H 86 Respiratory Rate Blood Pressure Pulse Oximetry Oxygen Delivery Exam Narrative: APPEARANCE: Lying in bed comfortably EYES: EOMI HEENT: Normocephalic, atraumatic, OMM RESPIRATORY: CTAB. CARDIOVASCULAR: RRR, S1 and S2 without murmurs rubs or gallops. ABDOMINAL: Soft, nontender, nondistended, no rebound or guarding MSK: Quadriplegia. NEURO: No focal deficits Results Labs 06/04/25 04:29 06/04/25 04:29 Labs: Short CBC 06/03/25 Range/Units 04:47 WBC 11.6 H (4.5-10.0) K/mm3 Hgb 7.8 L (12.0-15.0) g/dL Hct 24.6 L (37.0-47.0) % Plt Count 328 (150-375) k/mm3 [facility] 06/03/25 04:09 Sodium 139 Potassium 3.8 Chloride 116 H Carbon Dioxide 15 L BUN 33 H Creatinine 1.22 H Glucose 77 Calcium 8.2 L Liver Function 06/03/25 Range/Units 04:09 Total Bilirubin 0.5 (0.2-1.3) mg/dL AST 14 (14-36) U/L ALT 6 (6-35) U/L Alkaline Phosphatase 140 H (38-126) U/L Albumin 2.1 L (3.5-5.1) g/dL
[2025-06-03] MEDS: SENNA/DOCUSATE SODIUM TABLET 1 TAB FEED TUBE (21:09)
[2025-06-03] MEDS: CITALOPRAM HYDROBROMIDE 10 MG TABLET 30 MG FEED TUBE (21:09)
[2025-06-04] VITALS (12 sets, daily range): BP systolic 119–156; BP diastolic 71–96; PULSE 79–107; RESP 16–24; TEMP 36.8–37.1; O2SAT 96–97
[2025-06-04] MEDS: SOD HYPOCHLORITE 1/4 STRENGTH 473 ML 1 APPLIC TOPICAL ×3 (01:30→20:16)
[2025-06-04 04:56] LABS: Hematocrit 26.1 % (37.0-47.0); Hemoglobin 8.0 g/dL (12.0-15.0); Immature Granulocyte Percent A 0.6 % (0-0.5); Lymphocytes Absolute Auto 2.29 K/mm3 (0.9-3.2); Mean Corpuscular HGB Conc 30.7 g/dl (32-36); Mean Corpuscular Hemoglobin 26.5 pg (26-34); Mean Corpuscular Volume 86.4 fl (80-100); Nucleated Red Blood Cells Absolute Auto 0.000 K/mm3 (0.0-0.012); Nucleated Red Blood Cells Perc 0.0 % (0.0-0.2); Platelet Count Result 351 k/mm3 (150-375); Red Blood Count 3.02 M/mm3 (4.2-5.4); White Blood Count 12.4 K/mm3 (4.5-10.0)
[2025-06-04 05:19] LABS: Alanine Aminotransferase 10 U/L (6-35); Albumin Level 2.1 g/dL (3.5-5.1); Alkaline Phosphatase 139 U/L (38-126); Anion Gap 6 mmol/L (4-12); Aspartate Amino Transferase 23 U/L (14-36); Bilirubin,Total 0.2 mg/dL (0.2-1.3); Blood Urea Nitrogen 40 mg/dL (7-17); Calcium 8.4 mg/dL (8.4-10.2); Carbon Dioxide 21 mmol/L (22-30); Chloride 111 mmol/L (98-107); Estimated CRCL calculation 37 ml/min; Estimated Glomerular Filt Rate 45; Glucose 120 mg/dL (65-110); Potassium 3.6 mmol/L (3.4-5.0); Sodium 138 mmol/L (137-145); Total Protein 5.9 g/dL (6.3-8.2)
[2025-06-04 05:21] LABS: INR 1.7; Prothrombin Time 19.9 Seconds (11.1-14.7)
[2025-06-04 05:23] LABS: Partial Thromboplastin Time 67.0 Seconds (22.3-36.8)
[2025-06-04] MEDS: CENTRAL LINE FLUSH 10 ML IV PUSH ×3 (05:48→21:43)
[2025-06-04] MEDS: oxyCODONE HCL (*CRX) 5 MG TAB IR FEED TUBE ×3 (05:48→21:43)
[2025-06-04] MEDS: METOPROLOL TARTRATE 50 MG TAB FEED TUBE ×3 (05:48→21:43)
[2025-06-04] MEDS: THIAMINE HCL 100 MG TABLET 300 MG FEED TUBE (09:05)
[2025-06-04] MEDS: PREGABALIN (*CRX) 75 MG CAPSULE FEED TUBE (09:05)
[2025-06-04] MEDS: SODIUM BICARBONATE TAB 325 MG TABLET FEED TUBE ×2 (09:06→20:15)
[2025-06-04] MEDS: FAMOTIDINE 20 MG TABLET FEED TUBE ×2 (09:06→20:15)
[2025-06-04] MEDS: CALCIUM CARBONATE (OSCAL) 500 MG TABLET PO ×3 (09:06→16:52)
--- NOTE | 2025-06-04 15:15 | PC.NURSE ---
1000- IMU department secretary spoke with arcelia from urology office in regards to patients suprapubic catheter placement plan. Arcelia stated she would reach out to urologist and call back. 1515- IMU department secretary called urology office again. Was told Maxine will be rounding on the patient this afternoon.
--- NOTE | 2025-06-04 16:25 | PC.NURSE ---
This patient, Yesenia Perez, was received from IMU on 06/04/25 at 1625. Patient/family oriented to unit policies and routines
--- NOTE | 2025-06-04 16:45 | P.PNUR_ITS ---
Progress Note: A&P Assessment and Plan (1) Incontinence: Code(s): R32 - Unspecified urinary incontinence Status: Acute Assessment and Plan: * Case discussed with Dr. Can. Although patient would benefit from an SP tube, we are unable to place this with her coagulation still being inappropriate. Patient should have an INR less than 1.5 and a normal PTT consistently and then we would need a reasonable time to get this scheduled. * It isn't likely that we will be able to coordinate this surgery during this admission. * plan for outpatient follow up for scheduling of suprapubic catheter placement. Subjective Subjective Date/Time Seen: 06/04/25 16:45 Interval history: No acute events overnight Review of Systems Review of Systems: ROS unobtainable: Yes unobtainable due to mental status Exam Const: General: no acute distress Resp: Effort & Inspection: normal respiratory effort Urinary Catheter: Urinary Catheter: other (purewick with yellow urine) Skin: General skin exam: wounds noted Wounds: wounds noted Neuro: Other: quadriplegic Objective Data Vital Signs Vital Signs: Vital Signs - 24 hr 06/03/25 19:34 06/03/25 20:00 06/03/25 20:00 Temperature 98.5 F Pulse Rate 89 83 Respiratory Rate 20 Blood Pressure 145/95 H Pulse Oximetry 98 Oxygen Delivery Room Air 06/03/25 21:28 06/03/25 23:53 06/04/25 00:00 Temperature 97.4 F L Pulse Rate 96 87 83 Respiratory Rate 19 Blood Pressure 106/65 Pulse Oximetry 100 Oxygen Delivery 06/04/25 04:00 06/04/25 05:48 06/04/25 08:00 Temperature 98.6 F Pulse Rate 82 91 86 Respiratory Rate 18 Blood Pressure 119/71 Pulse Oximetry 97 Oxygen Delivery 06/04/25 08:00 06/04/25 12:00 06/04/25 12:00 Temperature 98.2 F Pulse Rate 79 94 90 Respiratory Rate 24 H Blood Pressure 124/86 Pulse Oximetry 96 Oxygen Delivery 06/04/25 13:42 06/04/25 13:43 Temperature Pulse Rate 103 H Respiratory Rate Blood Pressure 142/96 H Pulse Oximetry Oxygen Delivery Intake/Output Intake/Output: Intake & Output 06/01/25 06/02/25 06/03/25 06/04/25 23:59 23:59 23:59 23:59 Intake Total 1230 2491 550 1068 Output Total 500 6750 246 9589 Balance 730 1341 -300 68 Meds/Results Medications: Active Medications Generic Name Dose Route Start Last Admin Trade Name Freq PRN Reason Stop Dose Admin Acetaminophen 500 mg 05/28/25 18:19 Acetaminophen Elixir 325 Mg/10.15 Ml Udc PO Q6H PRN fever or pain rated 1-3 Alteplase, Recombinant 2 mg 05/29/25 19:51 06/03/25 14:34 Alteplase 2 Mg Vial (Cathflo) IV PUSH 2 mg ONCE PRN Administration Line Occlusion Apixaban 5 mg 05/29/25 09:00 05/31/25 08:50 Apixaban 5 Mg Tablet FEED TUBE 5 mg On Hold: 05/31/25 15:02 Q12HR MERLYN Administration Calcium Carbonate 500 mg 06/02/25 12:00 06/04/25 13:42 Calcium Carbonate (Oscal) 500 Mg Tablet PO 500 mg TIDWM MERLYN Administration Citalopram Hydrobromide 30 mg 05/29/25 21:00 06/03/25 21:09 Citalopram Hydrobromide 10 Mg Tablet FEED TUBE 30 mg HS MERLYN Administration Famotidine 20 mg 06/01/25 21:00 06/04/25 09:06 Famotidine 20 Mg Tablet FEED TUBE 20 mg Q12HR MELRYN Administration Heparin Sodium (Beef Lung) 50 units 05/29/25 09:00 06/04/25 15:20 Heparin Flush 50 Units/5 Ml Syringe IV PUSH Not Given QAM MERLYN Heparin Sodium (Beef Lung) 50 units 05/29/25 09:00 Heparin Flush 50 Units/5 Ml Syringe IV PUSH PRN PRN after intermittent infusion Heparin Sodium (Beef Lung) 50 units 05/29/25 09:00 Heparin Flush 50 Units/5 Ml Syringe IV PUSH PRN PRN after blood draws Heparin Sodium (Porcine) 500 units 05/29/25 09:00 Heparin Sodium Lock Flush 500 Units/5 Ml Syringe IV PUSH PRN PRN see comments below Metoprolol Tartrate 50 mg 05/28/25 22:00 06/04/25 13:42 Metoprolol Tartrate 50 Mg Tab FEED TUBE 50 mg Q8H MERLYN Administration Oxycodone HCl 5 mg 05/28/25 22:00 06/04/25 13:42 Oxycodone Hcl (*Crx) 5 Mg Tab Ir FEED TUBE 5 mg Q8H MERLYN Administration Polyethylene Glycol 17 gm 06/05/25 09:00 Polyethylene Glycol 3350 17 Gm Powd.Pack FEED TUBE Q48H MERLYN Pregabalin 75 mg 05/29/25 09:00 06/04/25 09:05 Pregabalin (*Crx) 75 Mg Capsule FEED TUBE 75 mg DAILY MERLYN Administration Quetiapine Fumarate 25 mg 05/29/25 09:00 06/04/25 09:06 Quetiapine Fumarate 25 Mg Tablet FEED TUBE 25 mg DAILY MERLYN Administration Senna/Docusate Sodium 1 tab 05/28/25 21:00 06/03/25 21:09 Senna/Docusate Sodium Tablet FEED TUBE 1 tab HS MERLYN Administration Sodium Bicarbonate 325 mg 06/01/25 21:00 06/04/25 09:06 Sodium Bicarbonate Tab 325 Mg Tablet FEED TUBE 325 mg Q12HR MERLYN Administration Sodium Chloride 10 ml 05/29/25 14:00 06/04/25 15:20 Central Line Flush IV PUSH 10 ml Q8HR MERLYN Administration Sodium Hypochlorite 1 applic 05/29/25 09:00 06/04/25 13:00 Sod Hypochlorite 1/4 Strength 473 Ml TOPICAL 1 applic Q12HR MERLYN Administration Thiamine HCl 300 mg 05/29/25 09:00 06/04/25 09:05 Thiamine Hcl 100 Mg Tablet FEED TUBE 300 mg QAM MERLYN Administration Trazodone HCl 50 mg 05/29/25 21:00 06/03/25 21:09 Trazodone Hcl 50 Mg Tablet FEED TUBE 50 mg HS MERLYN Administration Radiology Results: ITS Impressions Chest X-Ray 05/28/25 09:36 IMPRESSION: 1: Right hilum is prominent. The finding is new. Differential includes overlapping vasculature, adenopathy, consolidation or mass. A chest CT is recommended. 2. Small to moderate-sized patchy opacities scattered throughout both lungs. Differential includes but is not limited to edema or pneumonia. Follow-up is recommended. Attention follow-up chest CT imaging. Head CT 05/28/25 09:36 Impression: 1.No acute intracranial abnormality. Chest CT 05/28/25 11:13 IMPRESSION: Bilateral pneumonia. Follow-up recommended to assess resolution. Sacrum and Coccyx X-Ray 05/29/25 10:38 Impression: 1: No acute bone or joint abnormality identified. 2: Bilateral dislocation and remodeling of the hips, likely chronic. 3: If there is concern for osteomyelitis, further evaluation with MRI of the pelvis with contrast recommended. Thoracic Spine X-Ray 05/29/25 10:42 Impression: 1: Limited study due to scoliosis and osteopenia. Mild compression deformities of T8 and T9 with possible additional compression fractures which are difficult to evaluate due to patient rotation, demineralization and immobility. 2: Diffuse bilateral airspace disease which may represent edema or pneumonia. Labs Labs: Laboratory Results - last 24 hr 06/04/25 04:29 WBC 12.4 H RBC 3.02 L Hgb 8.0 L Hct 26.1 L MCV 86.4 MCH 26.5 MCHC 30.7 L RDW 19.7 H Plt Count 351 MPV 11.5 H Immature Gran % (Auto) 0.6 H Neut % (Auto) 68.9 Lymph % (Auto) 18.5 [place] % (Auto) 7.5 Eos % (Auto) 4.3 Baso % (Auto) 0.2 Lymph # (Auto) 2.29 [place] # (Auto) 0.9 H Eos # (Auto) 0.5 H Baso # (Auto) 0.0 Abs Immat Gran (auto) 0.07 H Absolute Neuts (auto) 8.6 H Absolute Nucleated RBC 0.000 Nucleated RBC % 0.0 PT 19.9 H INR 1.7 APTT 67.0 H Sodium 138 Potassium 3.6 Chloride 111 H Carbon Dioxide 21 L Anion Gap 6 BUN 40 H Creatinine 1.22 H Estim Creat Clear Calc 37 Estimated GFR 45 L Glucose 120 H Calcium 8.4 Total Bilirubin 0.2 AST 23 ALT 10 Alkaline Phosphatase 139 H Total Protein 5.9 L Albumin 2.1 L
--- NOTE | 2025-06-04 17:59 | P.PNIM_ITS ---
Progress Note: A&P Assessment and Plan (1) Schizoaffective disorder: Code(s): F25.9 - Schizoaffective disorder, unspecified Status: Acute (2) Generalized anxiety disorder: Code(s): F41.1 - Generalized anxiety disorder Status: Acute (3) Essential (primary) hypertension: Code(s): I10 - Essential (primary) hypertension Status: Acute (4) Supratherapeutic INR: Code(s): R79.1 - Abnormal coagulation profile Status: Acute (5) Pulmonary embolism: Code(s): I26.99 - Other pulmonary embolism without acute cor pulmonale Status: Acute (6) Elevated d-dimer: Code(s): R79.89 - Other specified abnormal findings of blood chemistry Status: Acute (7) Malnutrition: Code(s): E46 - Unspecified protein-calorie malnutrition Status: Acute (8) Acute kidney injury: Code(s): N17.9 - Acute kidney failure, unspecified Status: Acute (9) Anemia: Qualifiers: Anemia type: other cause Other causes of anemia: acute posthemorrhagic Qualified Code(s): D62 - Acute posthemorrhagic anemia Code(s): D64.9 - Anemia, unspecified Status: Acute (10) Acute on chronic anemia: Code(s): D64.9 - Anemia, unspecified Status: Acute (11) Pressure ulcers of skin of multiple topographic sites: Code(s): L89.90 - Pressure ulcer of unspecified site, unspecified stage Status: Chronic (12) Decubitus ulcer, infected: Qualifiers: Pressure injury stage: stage 4 Qualified Code(s): L89.94 - Pressure ulcer of unspecified site, stage 4; L08.9 - Local infection of the skin and subcutaneous tissue, unspecified Code(s): L89.90 - Pressure ulcer of unspecified site, unspecified stage; L08.9 - Local infection of the skin and subcutaneous tissue, unspecified Status: Chronic Plan 1. Acute hypoxia-resolved Likely secondary to pneumonia Presented with leukocytosis, WBC 17.8 on admission-down trending today 11.[address] shows bilateral pneumonia-moderate bi basilar infiltrate-minimal emphy sematous change Follow strep pneumo/Legionella antigen Follow blood/urine culture Completed 7 days of antibiotics 2. Acute on chronic anemia On admission, hemoglobin was 5.4 surgery applied gauze and a sliver nitrate on the bleeding site After transfusion, hemoglobin today 8.0 Likely bleeding source is from the I&D site. Patient has stage IV pressure wound on the coccyx area-likely the bleeding source monitor H and h 3. RADHA Likely secondary to pneumonia and acute blood loss anemia IV fluid and blood transfusion Creatinine 1.22 today 4. Multiple stage states of healing Coccygeal wound Likely stage IV pressure ulcer with eschar Status post debridement by General surgery Appreciate recs from General surgery Wound care follow-up Urology consulted for [place] catheter placement due to difficult anatomy-to keep the urine flows without contaminating the wound-urology was unable to place [place]-she might need a suprapubic [place] placement Tentative plan for suprapubic [place] placement on Sunday by Urology Sacrum and coccyx x-rays negative for osteomyelitis Gen surgery considering diversion colostomy 5. Schizoaffective disorder Continue home meds including Seroquel, trazodone, and citalopram 6. Hypertension stable 7. History of PE 2024 Patient has PEG tube Eliquis has been on hold Surgery has expressed concerns that Eliquis might not be a good option given her ongoing anemia Would benefit from Hematology evaluation, no one available today 8. Poor p.o. intake: On tube feedings Appreciate dietitian help DVT prophylaxis: SCDs 9. Code status: Full 10. Disposition: Pending improvement Subjective Date/time seen: 06/04/25 17:59 Interval history: No acute events overnight Review of Systems Review of Systems: All systems reviewed & are unremarkable except as noted in HPI and below ROS unobtainable: Yes unobtainable due to medical condition and unobtainable due to mental status Exam Narrative: APPEARANCE: Lying in bed comfortably EYES: EOMI HEENT: Normocephalic, atraumatic, OMM RESPIRATORY: No respiratory distress Clear to auscultation bilaterally with no rhonchi wheezing or rales. CARDIOVASCULAR: RRR, S1 and S2 without murmurs rubs or gallops. ABDOMINAL: Soft, nontender, nondistended, no rebound or guarding MSK: Quadriplegia. NEURO: Awake and alert. Following commands, speech normal, no focal deficits SKIN:: Warm, dry. No rashes lesions or abrasions PSYCHIATRIC: Bright affect Objective Data Vital Signs Vital Signs: Vital Signs - 24 hr 06/03/25 19:34 06/03/25 20:00 06/03/25 20:00 Temperature 98.5 F Pulse Rate 89 83 Respiratory Rate 20 Blood Pressure 145/95 H Pulse Oximetry 98 Oxygen Delivery Room Air 06/03/25 21:28 06/03/25 23:53 06/04/25 00:00 Temperature 97.4 F L Pulse Rate 96 87 83 Respiratory Rate 19 Blood Pressure 106/65 Pulse Oximetry 100 Oxygen Delivery 06/04/25 04:00 06/04/25 05:48 06/04/25 08:00 Temperature 98.6 F Pulse Rate 82 91 86 Respiratory Rate 18 Blood Pressure 119/71 Pulse Oximetry 97 Oxygen Delivery 06/04/25 08:00 06/04/25 12:00 06/04/25 12:00 Temperature 98.2 F Pulse Rate 79 94 90 Respiratory Rate 24 H Blood Pressure 124/86 Pulse Oximetry 96 Oxygen Delivery 06/04/25 13:42 06/04/25 13:43 06/04/25 16:00 Temperature Pulse Rate 103 H 89 Respiratory Rate Blood Pressure 142/96 H Pulse Oximetry Oxygen Delivery 06/04/25 16:00 Temperature 98.2 F Pulse Rate 99 Respiratory Rate 16 Blood Pressure 141/88 H Pulse Oximetry 96 Oxygen Delivery Intake/Output Intake/Output: Intake & Output 06/01/25 06/02/25 06/03/25 06/04/25 23:59 23:59 23:59 23:59 Intake Total 1230 2491 550 1068 Output Total 500 3579 159 7611 Balance 730 1341 -300 68 Meds/Results Medications: Active Medications Generic Name Dose Route Start Last Admin Trade Name Freq PRN Reason Stop Dose Admin Acetaminophen 500 mg 05/28/25 18:19 Acetaminophen Elixir 325 Mg/10.15 Ml Udc PO Q6H PRN fever or pain rated 1-3 Alteplase, Recombinant 2 mg 05/29/25 19:51 06/03/25 14:34 Alteplase 2 Mg Vial (Cathflo) IV PUSH 2 mg ONCE PRN Administration Line Occlusion Apixaban 5 mg 05/29/25 09:00 05/31/25 08:50 Apixaban 5 Mg Tablet FEED TUBE 5 mg On Hold: 05/31/25 15:02 Q12HR MERLYN Administration Calcium Carbonate 500 mg 06/02/25 12:00 06/04/25 16:52 Calcium Carbonate (Oscal) 500 Mg Tablet PO 500 mg TIDWM MERLYN Administration Citalopram Hydrobromide 30 mg 05/29/25 21:00 06/03/25 21:09 Citalopram Hydrobromide 10 Mg Tablet FEED TUBE 30 mg HS MERLYN Administration Famotidine 20 mg 06/01/25 21:00 06/04/25 09:06 Famotidine 20 Mg Tablet FEED TUBE 20 mg Q12HR MERLYN Administration Heparin Sodium (Beef Lung) 50 units 05/29/25 09:00 06/04/25 15:20 Heparin Flush 50 Units/5 Ml Syringe IV PUSH Not Given QAM MERLYN Heparin Sodium (Beef Lung) 50 units 05/29/25 09:00 Heparin Flush 50 Units/5 Ml Syringe IV PUSH PRN PRN after intermittent infusion Heparin Sodium (Beef Lung) 50 units 05/29/25 09:00 Heparin Flush 50 Units/5 Ml Syringe IV PUSH PRN PRN after blood draws Heparin Sodium (Porcine) 500 units 05/29/25 09:00 Heparin Sodium Lock Flush 500 Units/5 Ml Syringe IV PUSH PRN PRN see comments below Metoprolol Tartrate 50 mg 05/28/25 22:00 06/04/25 13:42 Metoprolol Tartrate 50 Mg Tab FEED TUBE 50 mg Q8H MERLYN Administration Oxycodone HCl 5 mg 05/28/25 22:00 06/04/25 13:42 Oxycodone Hcl (*Crx) 5 Mg Tab Ir FEED TUBE 5 mg Q8H MERLYN Administration Polyethylene Glycol 17 gm 06/05/25 09:00 Polyethylene Glycol 3350 17 Gm Powd.Pack FEED TUBE Q48H MERLYN Pregabalin 75 mg 05/29/25 09:00 06/04/25 09:05 Pregabalin (*Crx) 75 Mg Capsule FEED TUBE 75 mg DAILY MERLYN Administration Quetiapine Fumarate 25 mg 05/29/25 09:00 06/04/25 09:06 Quetiapine Fumarate 25 Mg Tablet FEED TUBE 25 mg DAILY MERLYN Administration Senna/Docusate Sodium 1 tab 05/28/25 21:00 06/03/25 21:09 Senna/Docusate Sodium Tablet FEED TUBE 1 tab HS MERLYN Administration Sodium Bicarbonate 325 mg 06/01/25 21:00 06/04/25 09:06 Sodium Bicarbonate Tab 325 Mg Tablet FEED TUBE 325 mg Q12HR MERLYN Administration Sodium Chloride 10 ml 05/29/25 14:00 06/04/25 15:20 Central Line Flush IV PUSH 10 ml Q8HR MERLYN Administration Sodium Hypochlorite 1 applic 05/29/25 09:00 06/04/25 13:00 Sod Hypochlorite 1/4 Strength 473 Ml TOPICAL 1 applic Q12HR MERLYN Administration Thiamine HCl 300 mg 05/29/25 09:00 06/04/25 09:05 Thiamine Hcl 100 Mg Tablet FEED TUBE 300 mg QAM MERLYN Administration Trazodone HCl 50 mg 05/29/25 21:00 06/03/25 21:09 Trazodone Hcl 50 Mg Tablet FEED TUBE 50 mg HS MERLYN Administration Radiology Results: ITS Impressions Chest X-Ray 05/28/25 09:36 IMPRESSION: 1: Right hilum is prominent. The finding is new. Differential includes overlapping vasculature, adenopathy, consolidation or mass. A chest CT is recommended. 2. Small to moderate-sized patchy opacities scattered throughout both lungs. Differential includes but is not limited to edema or pneumonia. Follow-up is recommended. Attention follow-up chest CT imaging. Head CT 05/28/25 09:36 Impression: 1.No acute intracranial abnormality. Chest CT 05/28/25 11:13 IMPRESSION: Bilateral pneumonia. Follow-up recommended to assess resolution. Sacrum and Coccyx X-Ray 05/29/25 10:38 Impression: 1: No acute bone or joint abnormality identified. 2: Bilateral dislocation and remodeling of the hips, likely chronic. 3: If there is concern for osteomyelitis, further evaluation with MRI of the pelvis with contrast recommended. Thoracic Spine X-Ray 05/29/25 10:42 Impression: 1: Limited study due to scoliosis and osteopenia. Mild compression deformities of T8 and T9 with possible additional compression fractures which are difficult to evaluate due to patient rotation, demineralization and immobility. 2: Diffuse bilateral airspace disease which may represent edema or pneumonia. Labs Labs: Laboratory Results - last 24 hr 06/04/25 04:29 WBC 12.4 H RBC 3.02 L Hgb 8.0 L Hct 26.1 L MCV 86.4 MCH 26.5 MCHC 30.7 L RDW 19.7 H Plt Count 351 MPV 11.5 H Immature Gran % (Auto) 0.6 H Neut % (Auto) 68.9 Lymph % (Auto) 18.5 [place] % (Auto) 7.5 Eos % (Auto) 4.3 Baso % (Auto) 0.2 Lymph # (Auto) 2.29 [place] # (Auto) 0.9 H Eos # (Auto) 0.5 H Baso # (Auto) 0.0 Abs Immat Gran (auto) 0.07 H Absolute Neuts (auto) 8.6 H Absolute Nucleated RBC 0.000 Nucleated RBC % 0.0 PT 19.9 H INR 1.7 APTT 67.0 H Sodium 138 Potassium 3.6 Chloride 111 H Carbon Dioxide 21 L Anion Gap 6 BUN 40 H Creatinine 1.22 H Estim Creat Clear Calc 37 Estimated GFR 45 L Glucose 120 H Calcium 8.4 Total Bilirubin 0.2 AST 23 ALT 10 Alkaline Phosphatase 139 H Total Protein 5.9 L Albumin 2.1 L Quality VTE Prophylaxis VTE prophylaxis: mechanical ordered
--- NOTE | 2025-06-04 18:21 | ECG_ITS ---
Test Date: 2025-06-04 18:31:22 Measurements Intervals [place] Rate: 102 P: -12 DE: 147 QRS: -21 QRSD: 78 T: -17 QT: 330 QTc: 431 Interpretive Statements SINUS TACHYCARDIA POSSIBLE ANTERIOR MYOCARDIAL INFARCTION , PROBABLY OLD [30 ms Q WAVE IN V3/V4, OR R < 0.2 mV IN V4] INFERIOR MYOCARDIAL INFARCTION , OF INDETERMINATE AGE [40+ ms Q WAVE AND/OR ST/T ABNORMALITY IN II/aVF] Compared to ECG 05/28/2025 08:58:39 No significant changes Electronically Signed On 06-05-2025 12:17:24 CDT by Yovani Piper M.D.
[2025-06-04 19:05] LABS: Troponin I < 0.012 ng/mL (0.000-0.034)
[2025-06-04] MEDS: CITALOPRAM HYDROBROMIDE 10 MG TABLET 30 MG FEED TUBE (20:16)
--- NOTE | 2025-06-04 20:19 | P.PNONC_ITS ---
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 Patient presented with acute renal failure with GFR of 18. Continued increase in coagulation profile after discontinuation of the DOAC is observed in patients with reduced GFR. In addition, due to malnutrition production of coagulation factors is low from the liver. Therefore, it is not uncommon to see this prolonged period of deranged coagulation parameters. At times, getting PT/PTT from peripheral veins rather than heparinized line can rule out contamination. Nevertheless, it seems that suprapubic catheter surgery is extremely important for this patient to heal the decubitus ulcers in the setting of inability to put the uretheral catheter. Eliquis induced prolonged PT/PTT can be reversed by Andexanet lisa (decoy receptor for factor Xa inhibitors like Eliquis). If Andexanet is not available we can administer four-factor Prothrombin Complex Concentrate (4F-PCC). Alternatively patient can be transfered to center of higher acuity for this surgery for optimal management of reversal agent and surgery timing. (2) Anemia: Code(s): D64.9 - Anemia, unspecified Status: Acute Assessment and Plan: Patient with chronic anemia due to malnutrition, chronic wounds and inflammation. She has hx of PE and is on apixaban. It is my understanding that her apixaban dose at last d/c summary was 2.5mg BID. In the setting of non ambulating patient with previous hx of thrombosis, the discussion has to happen with patient's HPOA as to risk of continuing DOACs and its utility in this patient's health. Due to DOAC use and compromised renal function patient is now experiencing prolong coagulapathy even after stopping DOAC 7 days ago. I will support for now to hold DOAC until she gets her suprapubic catheter surgery (per urology as outpatient). Subjective Date/time seen: 06/04/25 20:19 Interval history: No acute overnight events. Review of Systems Review of Systems ROS unobtainable: Yes unobtainable due to medical condition and unobtainable due to mental status Exam Narrative: APPEARANCE: Lying in bed comfortably EYES: EOMI HEENT: Normocephalic, atraumatic, OMM RESPIRATORY: CTAB. CARDIOVASCULAR: RRR, S1 and S2 without murmurs rubs or gallops. ABDOMINAL: Soft, nontender, nondistended, no rebound or guarding MSK: Quadriplegia. NEURO: No focal deficits Objective Data Vital Signs Vital Signs: Vital Signs - 24 hr 06/03/25 21:28 06/03/25 23:53 06/04/25 00:00 Temperature 36.3 C L Pulse Rate 96 87 83 Respiratory Rate 19 Blood Pressure 106/65 Pulse Oximetry 100 06/04/25 04:00 06/04/25 05:48 06/04/25 08:00 Temperature 37.0 C Pulse Rate 82 91 86 Respiratory Rate 18 Blood Pressure 119/71 Pulse Oximetry 97 06/04/25 08:00 06/04/25 12:00 06/04/25 12:00 Temperature 36.8 C Pulse Rate 79 94 90 Respiratory Rate 24 H Blood Pressure 124/86 Pulse Oximetry 96 06/04/25 13:42 06/04/25 13:43 06/04/25 16:00 Temperature Pulse Rate 103 H 89 Respiratory Rate Blood Pressure 142/96 H Pulse Oximetry 06/04/25 16:00 06/04/25 20:14 Temperature 36.8 C 37.1 C Pulse Rate 99 107 H Respiratory Rate 16 18 Blood Pressure 141/88 H 156/92 H Pulse Oximetry 96 97 Intake/Output Intake/Output: Intake & Output 06/01/25 06/02/25 06/03/25 06/04/25 23:59 23:59 23:59 23:59 Intake Total 1230 2491 550 1068 Output Total 500 7240 560 4184 Balance 730 1341 -300 68 Meds/Results Medications: Active Medications Generic Name Dose Route Start Last Admin Trade Name Freq PRN Reason Stop Dose Admin Acetaminophen 500 mg 05/28/25 18:19 Acetaminophen Elixir 325 Mg/10.15 Ml Udc PO Q6H PRN fever or pain rated 1-3 Alteplase, Recombinant 2 mg 05/29/25 19:51 06/03/25 14:34 Alteplase 2 Mg Vial (Cathflo) IV PUSH 2 mg ONCE PRN Administration Line Occlusion Apixaban 5 mg 05/29/25 09:00 05/31/25 08:50 Apixaban 5 Mg Tablet FEED TUBE 5 mg On Hold: 05/31/25 15:02 Q12HR MERLYN Administration Calcium Carbonate 500 mg 06/02/25 12:00 06/04/25 16:52 Calcium Carbonate (Oscal) 500 Mg Tablet PO 500 mg TIDWM MERLYN Administration Citalopram Hydrobromide 30 mg 05/29/25 21:00 06/04/25 20:16 Citalopram Hydrobromide 10 Mg Tablet FEED TUBE 30 mg HS MERLYN Administration Famotidine 20 mg 06/01/25 21:00 06/04/25 20:15 Famotidine 20 Mg Tablet FEED TUBE 20 mg Q12HR MERLYN Administration Heparin Sodium (Beef Lung) 50 units 05/29/25 09:00 06/04/25 15:20 Heparin Flush 50 Units/5 Ml Syringe IV PUSH Not Given QAM MERLYN Heparin Sodium (Beef Lung) 50 units 05/29/25 09:00 Heparin Flush 50 Units/5 Ml Syringe IV PUSH PRN PRN after intermittent infusion Heparin Sodium (Beef Lung) 50 units 05/29/25 09:00 Heparin Flush 50 Units/5 Ml Syringe IV PUSH PRN PRN after blood draws Heparin Sodium (Porcine) 500 units 05/29/25 09:00 Heparin Sodium Lock Flush 500 Units/5 Ml Syringe IV PUSH PRN PRN see comments below Metoprolol Tartrate 50 mg 05/28/25 22:00 06/04/25 13:42 Metoprolol Tartrate 50 Mg Tab FEED TUBE 50 mg Q8H MERLYN Administration Oxycodone HCl 5 mg 05/28/25 22:00 06/04/25 13:42 Oxycodone Hcl (*Crx) 5 Mg Tab Ir FEED TUBE 5 mg Q8H MERLYN Administration Polyethylene Glycol 17 gm 06/05/25 09:00 Polyethylene Glycol 3350 17 Gm Powd.Pack FEED TUBE Q48H MERLYN Pregabalin 75 mg 05/29/25 09:00 06/04/25 09:05 Pregabalin (*Crx) 75 Mg Capsule FEED TUBE 75 mg DAILY MERLYN Administration Quetiapine Fumarate 25 mg 05/29/25 09:00 06/04/25 09:06 Quetiapine Fumarate 25 Mg Tablet FEED TUBE 25 mg DAILY MERLYN Administration Senna/Docusate Sodium 1 tab 05/28/25 21:00 06/04/25 20:16 Senna/Docusate Sodium Tablet FEED TUBE Not Given HS MERLYN Sodium Bicarbonate 325 mg 06/01/25 21:00 06/04/25 20:15 Sodium Bicarbonate Tab 325 Mg Tablet FEED TUBE 325 mg Q12HR MERLYN Administration Sodium Chloride 10 ml 05/29/25 14:00 06/04/25 15:20 Central Line Flush IV PUSH 10 ml Q8HR MERLYN Administration Sodium Hypochlorite 1 applic 05/29/25 09:00 06/04/25 20:16 Sod Hypochlorite 1/4 Strength 473 Ml TOPICAL 1 applic Q12HR MERLYN Administration Thiamine HCl 300 mg 05/29/25 09:00 06/04/25 09:05 Thiamine Hcl 100 Mg Tablet FEED TUBE 300 mg QAM MERLYN Administration Trazodone HCl 50 mg 05/29/25 21:00 06/04/25 20:16 Trazodone Hcl 50 Mg Tablet FEED TUBE 50 mg HS MERLYN Administration Radiology Results: ITS Impressions Chest X-Ray 05/28/25 09:36 IMPRESSION: 1: Right hilum is prominent. The finding is new. Differential includes over lapping vasculature, adenopathy, consolidation or mass. A chest CT is recommended. 2. Small to moderate-sized patchy opacities scattered throughout both lungs. Differential includes but is not limited to edema or pneumonia. Follow-up is recommended. Attention follow-up chest CT imaging. Head CT 05/28/25 09:36 Impression: 1.No acute intracranial abnormality. Chest CT 05/28/25 11:13 IMPRESSION: Bilateral pneumonia. Follow-up recommended to assess resolution. Sacrum and Coccyx X-Ray 05/29/25 10:38 Impression: 1: No acute bone or joint abnormality identified. 2: Bilateral dislocation and remodeling of the hips, likely chronic. 3: If there is concern for osteomyelitis, further evaluation with MRI of the pelvis with contrast recommended. Thoracic Spine X-Ray 05/29/25 10:42 Impression: 1: Limited study due to scoliosis and osteopenia. Mild compression deformities of T8 and T9 with possible additional compression fractures which are difficult to evaluate due to patient rotation, demineralization and immobility. 2: Diffuse bilateral airspace disease which may represent edema or pneumonia. Labs Labs: Laboratory Results - last 24 hr 06/04/25 06/04/25 04:29 18:37 WBC 12.4 H RBC 3.02 L Hgb 8.0 L Hct 26.1 L MCV 86.4 MCH 26.5 MCHC 30.7 L RDW 19.7 H Plt Count 351 MPV 11.5 H Immature Gran % (Auto) 0.6 H Neut % (Auto) 68.9 Lymph % (Auto) 18.5 [place] % (Auto) 7.5 Eos % (Auto) 4.3 Baso % (Auto) 0.2 Lymph # (Auto) 2.29 [place] # (Auto) 0.9 H Eos # (Auto) 0.5 H Baso # (Auto) 0.0 Abs Immat Gran (auto) 0.07 H Absolute Neuts (auto) 8.6 H Absolute Nucleated RBC 0.000 Nucleated RBC % 0.0 PT 19.9 H INR 1.7 APTT 67.0 H Sodium 138 Potassium 3.6 Chloride 111 H Carbon Dioxide 21 L Anion Gap 6 BUN 40 H Creatinine 1.22 H Estim Creat Clear Calc 37 Estimated GFR 45 L Glucose 120 H Calcium 8.4 Total Bilirubin 0.2 AST 23 ALT 10 Alkaline Phosphatase 139 H Troponin I < 0.012 Total Protein 5.9 L Albumin 2.1 L
[2025-06-05] VITALS (7 sets, daily range): BP systolic 134; BP diastolic 86; PULSE 79–102; RESP 18; TEMP 36.4; O2SAT 97
[2025-06-05 05:01] LABS: Hematocrit 27.0 % (37.0-47.0); Hemoglobin 8.3 g/dL (12.0-15.0); Immature Granulocyte Percent A 0.8 % (0-0.5); Lymphocytes Absolute Auto 2.24 K/mm3 (0.9-3.2); Mean Corpuscular HGB Conc 30.7 g/dl (32-36); Mean Corpuscular Hemoglobin 26.4 pg (26-34); Mean Corpuscular Volume 86.0 fl (80-100); Nucleated Red Blood Cells Absolute Auto 0.000 K/mm3 (0.0-0.012); Nucleated Red Blood Cells Perc 0.0 % (0.0-0.2); Platelet Count Result 339 k/mm3 (150-375); Red Blood Count 3.14 M/mm3 (4.2-5.4); White Blood Count 13.1 K/mm3 (4.5-10.0)
[2025-06-05] MEDS: oxyCODONE HCL (*CRX) 5 MG TAB IR FEED TUBE ×2 (05:07→13:58)
[2025-06-05] MEDS: METOPROLOL TARTRATE 50 MG TAB FEED TUBE ×2 (05:07→13:58)
[2025-06-05 05:14] LABS: INR 1.6; Prothrombin Time 18.6 Seconds (11.1-14.7)
[2025-06-05 05:15] LABS: Partial Thromboplastin Time 57.5 Seconds (22.3-36.8)
[2025-06-05 05:21] LABS: Alanine Aminotransferase 9 U/L (6-35); Albumin Level 2.2 g/dL (3.5-5.1); Alkaline Phosphatase 166 U/L (38-126); Anion Gap 2 mmol/L (4-12); Aspartate Amino Transferase 29 U/L (14-36); Bilirubin,Total 0.2 mg/dL (0.2-1.3); Blood Urea Nitrogen 45 mg/dL (7-17); Calcium 8.4 mg/dL (8.4-10.2); Carbon Dioxide 26 mmol/L (22-30); Chloride 109 mmol/L (98-107); Estimated CRCL calculation 38 ml/min; Estimated Glomerular Filt Rate 46; Glucose 113 mg/dL (65-110); Magnesium 1.5 mg/dL (1.6-2.3); Potassium 3.9 mmol/L (3.4-5.0); Sodium 137 mmol/L (137-145); Total Protein 6.1 g/dL (6.3-8.2)
[2025-06-05] MEDS: PREGABALIN (*CRX) 75 MG CAPSULE FEED TUBE (09:18)
[2025-06-05] MEDS: CALCIUM CARBONATE (OSCAL) 500 MG TABLET PO ×2 (09:18→12:07)
[2025-06-05] MEDS: THIAMINE HCL 100 MG TABLET 300 MG FEED TUBE (09:18)
[2025-06-05] MEDS: SODIUM BICARBONATE TAB 325 MG TABLET FEED TUBE (09:18)
[2025-06-05] MEDS: DOXYCYCLINE HYCLATE 100 MG TABLET PO (09:19)
[2025-06-05] MEDS: FAMOTIDINE 20 MG TABLET FEED TUBE (09:19)
[2025-06-05] MEDS: SOD HYPOCHLORITE 1/4 STRENGTH 473 ML 1 APPLIC TOPICAL (09:20)
[2025-06-05] MEDS: MAGNESIUM SULF 2 GM/WATER 50ML 2 GM/50 ML BAG IVPB (09:20)
--- NOTE | 2025-06-05 10:48 | PCNFU ---
Nutrition Follow-Up Complete: Severe protein calorie malnutrition related to chronic illness as evidenced by multiple pressure injuries; intakes <75% needs >1 month; weight loss 10%/4 months, 22%/1 year; severe muscle wasting and fat loss Goal:Adequate PO intake at least 75% meals and supplements to support wound healing Patient will continue current goal. Pt current nutrition is Jevity 1.5 at 50 ml/hr with Regular diet/diet supplements. Last recorded weight is 44.9 kg down 10% in 1 day, Nursing to reweigh patient. Bowel Motility: Last reported BM 06/05 Labs Reviewed: Mg 1.5, BUN 45, Cr 1.2, Glu 113 Meds Noted: Pepcid, Miralax, Senokot, Thiamine Skin: Multiple pressure injuries Stage 3: R back, R knee, R buttock. Unstageable: R foot, R heel, L ischium. Stage 4: Sacrum Additional Notes: Tube feedings continue with Jevity 1.5 at 50 ml/hr providing 1650 kcal/70 gm protein/836 ml water. Flush 150 ml q 4 hours. Regular diet being providing but oral intake has been very poor. Maged is being sent BID for wound healing flushed via PEG. Also sending Ensure High Protein on trays for additional 350 kcal and 20 gm protein. Agree with current diet orders at this time. Monitoring intakes, skin, weights, labs, supplement tolerance, plan of care every Sunday and Sunday.
--- NOTE | 2025-06-05 11:11 | P.PNIM_ITS ---
Progress Note: A&P Assessment and Plan (1) Schizoaffective disorder: Code(s): F25.9 - Schizoaffective disorder, unspecified Status: Acute (2) Generalized anxiety disorder: Code(s): F41.1 - Generalized anxiety disorder Status: Acute (3) Essential (primary) hypertension: Code(s): I10 - Essential (primary) hypertension Status: Acute (4) Supratherapeutic INR: Code(s): R79.1 - Abnormal coagulation profile Status: Acute (5) Pulmonary embolism: Code(s): I26.99 - Other pulmonary embolism without acute cor pulmonale Status: Acute (6) Elevated d-dimer: Code(s): R79.89 - Other specified abnormal findings of blood chemistry Status: Acute (7) Malnutrition: Code(s): E46 - Unspecified protein-calorie malnutrition Status: Acute (8) Acute kidney injury: Code(s): N17.9 - Acute kidney failure, unspecified Status: Acute (9) Anemia: Qualifiers: Anemia type: other cause Other causes of anemia: acute posthemorrhagic Qualified Code(s): D62 - Acute posthemorrhagic anemia Code(s): D64.9 - Anemia, unspecified Status: Acute (10) Acute on chronic anemia: Code(s): D64.9 - Anemia, unspecified Status: Acute (11) Pressure ulcers of skin of multiple topographic sites: Code(s): L89.90 - Pressure ulcer of unspecified site, unspecified stage Status: Chronic (12) Decubitus ulcer, infected: Qualifiers: Pressure injury stage: stage 4 Qualified Code(s): L89.94 - Pressure ulcer of unspecified site, stage 4; L08.9 - Local infection of the skin and subcutaneous tissue, unspecified Code(s): L89.90 - Pressure ulcer of unspecified site, unspecified stage; L08.9 - Local infection of the skin and subcutaneous tissue, unspecified Status: Chronic Plan 1. Acute hypoxia-resolved Likely secondary to pneumonia Presented with leukocytosis, WBC 17.8 on admission-down trending today 11.[address] shows bilateral pneumonia-moderate bi basilar infiltrate-minimal emphy sematous change Follow strep pneumo/Legionella antigen Follow blood/urine culture Completed 7 days of antibiotics 2. Acute on chronic anemia On admission, hemoglobin was 5.4 surgery applied gauze and a sliver nitrate on the bleeding site After transfusion, hemoglobin today 8.0 Likely bleeding source is from the I&D site. Patient has stage IV pressure wound on the coccyx area-likely the bleeding source monitor H and h 3. RADHA Likely secondary to pneumonia and acute blood loss anemia IV fluid and blood transfusion Creatinine 1.20 today 4. Multiple stage states of healing Coccygeal wound Likely stage IV pressure ulcer with eschar Status post debridement by General surgery Appreciate recs from General surgery Wound care follow-up place [place]-she might need a suprapubic [place] placement Sacrum and coccyx x-rays negative for osteomyelitis Gen surgery no longer considering Diversion colostomy Urology noted outpatient follow up for suprapubic catheter placement continue Augmentin and Doxycycline 5. Schizoaffective disorder Continue home meds including Seroquel, trazodone, and citalopram 6. Hypertension stable 7. History of PE 2024 Patient has PEG tube Eliquis has been on hold Surgery has expressed concerns that Eliquis might not be a good option given her ongoing anemia Would benefit from Hematology evaluation, no one available today 8. Poor p.o. intake: On tube feedings Appreciate dietitian help Hx of PE Eliquis on hold until patient gets a suprapubic catheter. oncology following Coagulopathy Eliquis induced reviewed oncology eval and urology postponing procedure to it Ordered K centra and follow PTT and PT monitor Oncology following DVT prophylaxis: SCDs 9. Code status: Full 10. Disposition: Pending improvement Subjective Date/time seen: 06/05/25 11:11 Interval history: No acute overnight events. still having leukocytosis, i believe this is likely from her multiple wounds Review of Systems Review of Systems: All systems reviewed & are unremarkable except as noted in HPI and below ROS unobtainable: Yes unobtainable due to medical condition and unobtainable due to mental status Exam Narrative: APPEARANCE: Lying in bed comfortably EYES: EOMI HEENT: Normocephalic, atraumatic, OMM RESPIRATORY: No respiratory distress Clear to auscultation bilaterally with no rhonchi wheezing or rales. CARDIOVASCULAR: RRR, S1 and S2 without murmurs rubs or gallops. ABDOMINAL: Soft, nontender, nondistended, no rebound or guarding MSK: Quadriplegia. NEURO: Awake and alert. Following commands, speech normal, no focal deficits SKIN:: multiple ulcer: Sacral ulcer, 2 on left upper thigh at least stage IV Objective Data Vital Signs Vital Signs: Vital Signs - 24 hr 06/04/25 12:00 06/04/25 12:00 06/04/25 13:42 Temperature 98.2 F Pulse Rate 94 90 103 H Respiratory Rate 24 H Blood Pressure 124/86 Pulse Oximetry 96 Oxygen Delivery 06/04/25 13:43 06/04/25 16:00 06/04/25 16:00 Temperature 98.2 F Pulse Rate 89 99 Respiratory Rate 16 Blood Pressure 142/96 H 141/88 H Pulse Oximetry 96 Oxygen Delivery 06/04/25 20:00 06/04/25 20:00 06/04/25 20:14 Temperature 98.8 F Pulse Rate 104 H 107 H Respiratory Rate 18 Blood Pressure 156/92 H Pulse Oximetry 97 Oxygen Delivery Room Air 06/04/25 21:40 06/04/25 21:43 06/05/25 00:00 Temperature Pulse Rate 100 85 Respiratory Rate Blood Pressure Pulse Oximetry 97 Oxygen Delivery Room Air 06/05/25 04:00 06/05/25 05:07 06/05/25 05:57 Temperature 97.6 F Pulse Rate 89 100 102 H Respiratory Rate 18 Blood Pressure 134/86 Pulse Oximetry 97 Oxygen Delivery Intake/Output Intake/Output: Intake & Output 06/02/25 06/03/25 06/04/25 06/05/25 23:59 23:59 23:59 23:59 Intake Total 2491 550 1068 Output Total 7673 986 9931 Balance 8273 -612 -325 Meds/Results Medications: Active Medications Generic Name Dose Route Start Last Admin Trade Name Freq PRN Reason Stop Dose Admin Acetaminophen 500 mg 05/28/25 18:19 Acetaminophen Elixir 325 Mg/10.15 Ml Udc PO Q6H PRN fever or pain rated 1-3 Alteplase, Recombinant 2 mg 05/29/25 19:51 06/03/25 14:34 Alteplase 2 Mg Vial (Cathflo) IV PUSH 2 mg ONCE PRN Administration Line Occlusion Amoxicillin/Clavulanate Potassium 1 tablet 06/05/25 09:00 06/05/25 09:19 Amoxicillin/Clavulanate K 875-125 Mg Tab PO 1 tablet Q12HR MERLYN Administration Apixaban 5 mg 05/29/25 09:00 05/31/25 08:50 Apixaban 5 Mg Tablet FEED TUBE 5 mg On Hold: 05/31/25 15:02 Q12HR MERLYN Administration Calcium Carbonate 500 mg 06/02/25 12:00 06/05/25 09:18 Calcium Carbonate (Oscal) 500 Mg Tablet PO 500 mg TIDWM MERLYN Administration Citalopram Hydrobromide 30 mg 05/29/25 21:00 06/04/25 20:16 Citalopram Hydrobromide 10 Mg Tablet FEED TUBE 30 mg HS MERLYN Administration Doxycycline Hyclate 100 mg 06/05/25 09:00 06/05/25 09:19 Doxycycline Hyclate 100 Mg Tablet PO 100 mg Q12HR MERLYN Administration Famotidine 20 mg 06/01/25 21:00 06/05/25 09:19 Famotidine 20 Mg Tablet FEED TUBE 20 mg Q12HR MERLYN Administration Heparin Sodium (Beef Lung) 50 units 05/29/25 09:00 06/05/25 09:34 Heparin Flush 50 Units/5 Ml Syringe IV PUSH Not Given QAM MERLYN Heparin Sodium (Beef Lung) 50 units 05/29/25 09:00 Heparin Flush 50 Units/5 Ml Syringe IV PUSH PRN PRN after intermittent infusion Heparin Sodium (Beef Lung) 50 units 05/29/25 09:00 Heparin Flush 50 Units/5 Ml Syringe IV PUSH PRN PRN after blood draws Heparin Sodium (Porcine) 500 units 05/29/25 09:00 Heparin Sodium Lock Flush 500 Units/5 Ml Syringe IV PUSH PRN PRN see comments below Metoprolol Tartrate 50 mg 05/28/25 22:00 06/05/25 05:07 Metoprolol Tartrate 50 Mg Tab FEED TUBE 50 mg Q8H MERLYN Administration Oxycodone HCl 5 mg 05/28/25 22:00 06/05/25 05:07 Oxycodone Hcl (*Crx) 5 Mg Tab Ir FEED TUBE 5 mg Q8H MERLYN Administration Polyethylene Glycol 17 gm 06/05/25 09:00 06/05/25 09:17 Polyethylene Glycol 3350 17 Gm Powd.Pack FEED TUBE Not Given Q48H MERLYN Pregabalin 75 mg 05/29/25 09:00 06/05/25 09:18 Pregabalin (*Crx) 75 Mg Capsule FEED TUBE 75 mg DAILY MERLYN Administration Quetiapine Fumarate 25 mg 05/29/25 09:00 06/05/25 09:18 Quetiapine Fumarate 25 Mg Tablet FEED TUBE 25 mg DAILY MERLYN Administration Senna/Docusate Sodium 1 tab 05/28/25 21:00 06/04/25 20:16 Senna/Docusate Sodium Tablet FEED TUBE Not Given HS MERLYN Sodium Bicarbonate 325 mg 06/01/25 21:00 06/05/25 09:18 Sodium Bicarbonate Tab 325 Mg Tablet FEED TUBE 325 mg Q12HR MERLYN Administration Sodium Chloride 10 ml 05/29/25 14:00 06/05/25 09:17 Central Line Flush IV PUSH Not Given Q8HR MERLYN Sodium Hypochlorite 1 applic 05/29/25 09:00 06/05/25 09:20 Sod Hypochlorite 1/4 Strength 473 Ml TOPICAL 1 applic Q12HR MERLYN Administration Thiamine HCl 300 mg 05/29/25 09:00 06/05/25 09:18 Thiamine Hcl 100 Mg Tablet FEED TUBE 300 mg QAM MERLYN Administration Trazodone HCl 50 mg 05/29/25 21:00 06/04/25 20:16 Trazodone Hcl 50 Mg Tablet FEED TUBE 50 mg HS MERLYN Administration Radiology Results: ITS Impressions Chest X-Ray 05/28/25 09:36 IMPRESSION: 1: Right hilum is prominent. The finding is new. Differential includes overlapping vasculature, adenopathy, consolidation or mass. A chest CT is recommended. 2. Small to moderate-sized patchy opacities scattered throughout both lungs. Differential includes but is not limited to edema or pneumonia. Follow-up is recommended. Attention follow-up chest CT imaging. Head CT 05/28/25 09:36 Impression: 1.No acute intracranial abnormality. Chest CT 05/28/25 11:13 IMPRESSION: Bilateral pneumonia. Follow-up recommended to assess resolution. Sacrum and Coccyx X-Ray 05/29/25 10:38 Impression: 1: No acute bone or joint abnormality identified. 2: Bilateral dislocation and remodeling of the hips, likely chronic. 3: If there is concern for osteomyelitis, further evaluation with MRI of the p amanda with contrast recommended. Thoracic Spine X-Ray 05/29/25 10:42 Impression: 1: Limited study due to scoliosis and osteopenia. Mild compression deformities of T8 and T9 with possible additional compression fractures which are difficult to evaluate due to patient rotation, demineralization and immobility. 2: Diffuse bilateral airspace disease which may represent edema or pneumonia. Labs Labs: Laboratory Results - last 24 hr 06/04/25 06/05/25 18:37 04:46 WBC 13.1 H RBC 3.14 L Hgb 8.3 L Hct 27.0 L MCV 86.0 MCH 26.4 MCHC 30.7 L RDW 20.2 H Plt Count 339 MPV 10.9 H Immature Gran % (Auto) 0.8 H Neut % (Auto) 70.4 Lymph % (Auto) 17.2 L [place] % (Auto) 7.6 Eos % (Auto) 3.8 Baso % (Auto) 0.2 Lymph # (Auto) 2.24 [place] # (Auto) 1.0 H Eos # (Auto) 0.5 H Baso # (Auto) 0.0 Abs Immat Gran (auto) 0.10 H Absolute Neuts (auto) 9.2 H Absolute Nucleated RBC 0.000 Nucleated RBC % 0.0 PT 18.6 H INR 1.6 APTT 57.5 H Sodium 137 Potassium 3.9 Chloride 109 H Carbon Dioxide 26 Anion Gap 2 L BUN 45 H Creatinine 1.20 H Estim Creat Clear Calc 38 Estimated GFR 46 L Glucose 113 H Calcium 8.4 Magnesium 1.5 L Total Bilirubin 0.2 AST 29 ALT 9 Alkaline Phosphatase 166 H Troponin I < 0.012 Total Protein 6.1 L Albumin 2.2 L Quality VTE Prophylaxis VTE prophylaxis: mechanical ordered
[2025-06-05] MEDS: PREMIXIV IV CONT (12:07)
[2025-06-05] MEDS: HUMAN PROTHROMBIN COMPLEX IV CONT (12:07)
--- NOTE | 2025-06-05 13:20 | P.DS_ITS ---
DS: Admitting Diagnosis Discharge Date 06/05/25 Admitting Diagnosis Hypoxia and hypotension DS: Discharge Diagnosis Discharge Diagnosis (1) Coagulopathy: Code(s): D68.9 - Coagulation defect, unspecified Status: Acute (2) Pulmonary embolism: Code(s): I26.99 - Other pulmonary embolism without acute cor pulmonale Status: Acute (3) Malnutrition: Code(s): E46 - Unspecified protein-calorie malnutrition Status: Acute (4) Acute kidney injury: Code(s): N17.9 - Acute kidney failure, unspecified Status: Acute (5) Right lower lobe consolidation: Code(s): J18.1 - Lobar pneumonia, unspecified organism Status: Acute (6) COPD (chronic obstructive pulmonary disease): Code(s): J44.9 - Chronic obstructive pulmonary disease, unspecified Status: Acute DS: Summary Hospital Course Hospital Course: Reason for Admission 59-year-old female with quadriplegia (secondary to multiple sclerosis), schizoaffective disorder, chronic kidney disease, COPD, and history of PE, admitted from shelter for hypoxia and hypotension. Baseline mental status is A&O x1. Hospital Course Initial Presentation: * Presented with hypoxia and hypotension. * Found to have leukocytosis (WBC 17.8), severe anemia (Hgb 5.4), supratherap eutic INR (4.3), acute kidney injury (Cr 2.66, GFR 18), hypocalcemia, and MRSA detected. * Imaging: Chest CT showed bilateral pneumonia; head CT negative; x-rays of sacrum/coccyx negative for osteomyelitis. * Patient was treated for pneumonia and completed antibiotics Pressure Ulcers: * Multiple stage IV and unstageable pressure ulcers (upper back, sacrum, bilateral ischium, right foot, right heel). * Left ischial ulcer progressed from stage III (December 2024) to unstageable with necrotic tissue. * Bedside sharp excisional debridement of left ischial wound performed on 05/29/25; wound packed with Dakin?s soaked gauze. * Daily wound care continued; wounds monitored for infection and healing. * Wound care complicated by incontinence and inability to place urethral catheter due to contractures. Incontinence and Urology: * Urology consulted for urinary catheterization to aid wound healing. * Naranjo placement unsuccessful due to severe contractures and recessed urethra. * Suprapubic catheter recommended but deferred due to coagulopathy (INR >1.5, elevated PTT) and need for normalization of coagulation profile. * Plan for outpatient suprapubic catheter placement once coagulopathy resolves * I discussed with urology and confirmed their plan to follow up, Dabigatran on hold until Suprapubic catheter is placed * Oncology agreed with holding Anticoagulation * Gen surgery initially planned for diverting colostomy, however changed their mind and noted they will follow outpatinet * i discussed with Gen surgery to confirm this plan * Discharged on 2 weeks of Doxycycline and Augmentin Coagulopathy and Anticoagulation: * History of PE; on apixaban (Eliquis) at shelter. * Supratherapeutic INR and coagulopathy attributed to DOAC use and acute renal failure. * DOAC held on admission; slow normalization of PT/PTT due to renal dysfunction and malnutrition. * Oncology recommended reversal with andexanet lisa or 4F-PCC if urgent procedure required; otherwise, continue to hold anticoagulation until safe for surgery. * Discussion with HPOA regarding risks/benefits of ongoing anticoagulation in non-ambulatory patient. Pneumonia: * Bilateral pneumonia (right lower lobe predominant) treated with IV cefepime and doxycycline (initially vancomycin, later de-escalated). * Hypoxia resolved with supportive care. * Completed antibiotics and and now on room air Anemia: * Severe acute on chronic anemia (Hgb 5.4 on admission); received 2 units PRBC. * Likely multifactorial: chronic disease, malnutrition, and chronic wound burden. * No evidence of acute bleeding. Hb stable Acute Kidney Injury:resolevd * Likely secondary to sepsis, hypovolemia, and anemia. * Improved with IV fluids and transfusion; creatinine trended down to 1.20, baselien Other Issues: * Hypocalcemia corrected. * Hypertension: home antihypertensives held due to soft blood pressures. * Schizoaffective disorder: continued home regimen (Seroquel, trazodone, citalopram). * History of PE: anticoagulation held due to bleeding risk and pending pro cedure. Procedures * 05/29/25:?Sharp excisional debridement of left ischial pressure ulcer (4 x 7 x 2 cm) at bedside. No immediate complications. Discharge Status * Wounds stable post-debridement; daily wound care to continue. * Anemia improved post-transfusion. * RADHA resolved * Coagulopathy improving; anticoagulation remains on hold. * Plan for outpatient suprapubic catheter placement once coagulopathy resolves. * Stable for discharge to nursing facility with close follow-up. Discharge Medications * Continue wound care as per protocol (Duc?s soaked gauze). * Hold anticoagulation until cleared by urology/oncology. * Continue home psychiatric medications. * Resume other home medications as clinically appropriate. * Antibiotics: discharged on 2 weeks of Augmentin and Doxycycline for wound infection Follow-Up Recommendations * Wound Care:?Daily dressing changes, monitor for infection, follow up with wound care clinic. * Urology:?Outpatient follow-up for suprapubic catheter placement once INR/PTT normalized. * Oncology/Hematology:?For coagulopathy management and anticoagulation plan. * Primary Care:?For ongoing management of comorbidities and coordination of care. * Notify HPOA/guardian?regarding procedural planning and anticoagulation decisions. Time Spent with Patient Time attestation: Total time spent providing and/or coordinating discharge services: DS: Data Data Completed and Pending Labs on day of discharge: Labs from last 24 hours 06/05/25 06/04/25 04:46 18:37 WBC 13.1 H RBC 3.14 L Hgb 8.3 L Hct 27.0 L MCV 86.0 MCH 26.4 MCHC 30.7 L RDW 20.2 H Plt Count 339 MPV 10.9 H Immature Gran % (Auto) 0.8 H Neut % (Auto) 70.4 Lymph % (Auto) 17.2 L [place] % (Auto) 7.6 Eos % (Auto) 3.8 Baso % (Auto) 0.2 Lymph # (Auto) 2.24 [place] # (Auto) 1.0 H Eos # (Auto) 0.5 H Baso # (Auto) 0.0 Abs Immat Gran (auto) 0.10 H Absolute Neuts (auto) 9.2 H Absolute Nucleated RBC 0.000 Nucleated RBC % 0.0 PT 18.6 H INR 1.6 APTT 57.5 H Sodium 137 Potassium 3.9 Chloride 109 H Carbon Dioxide 26 Anion Gap 2 L BUN 45 H Creatinine 1.20 H Estim Creat Clear Calc 38 Estimated GFR 46 L Glucose 113 H Calcium 8.4 Magnesium 1.5 L Total Bilirubin 0.2 AST 29 ALT 9 Alkaline Phosphatase 166 H Troponin I < 0.012 Total Protein 6.1 L Albumin 2.2 L Discharge Plan Discharge Attending physician on discharge: Tammi Bailey Consulting providers: Tammi Bailey; Luis Eduardo Branham; Suresh Sommer; Valerie Pino Discharging Clinician: Tammi Bailey Anticipated Discharge Date/Time: 06/05/25 13:14 Patient Disposition: SNF Activity: as tolerated Diet: as tolerated and tube feeding Patient Language: Yemeni Stand Alone Forms: General Discharge Information Follow-up/Referrals: KimberLuis Eduardo MD [Primary Care Provider, Unknown] Referral Note: F/u with PCP In 3- 5 days Suresh Sommer MD [Physician, Urology] Referral Note: F/u with urology as instructed Luis Eduardo Branham MD [Physician, General Surgery] Referral Note: F/u with gen surgery as instructed Discharge Medications: New doxycycline hyclate 100 mg Tablet 100 mg PO Q12HR 14 Days Qty: 28 0RF amoxicillin-pot clavulanate 875-125 mg tablet 1 tablet PO Q12H 14 Days Qty: 28 0RF Continued famotidine 20 mg tablet 20 mg feeding tube BID trazodone 50 mg tablet 50 mg feeding tube HS ondansetron 4 mg tablet,disintegrating 4 mg PO QID PRN (Reason: Nausea And Vomiting) cholecalciferol (vitamin D3) 1,000 units G-tube DAILY sennosides [senna] 8.6 mg Tablet 8.6 mg feeding tube DAILY PRN (Reason: Constipation) thiamine HCl (vitamin B1) [Vitamin B-1] 100 mg Tablet 300 mg feeding tube QAM Qty: 90 0RF Artificial Tears([id number]) Drops 1 drp EACH EYE TID pregabalin 75 mg capsule 75 mg feeding tube DAILY citalopram 20 mg tablet 30 mg feeding tube HS metoprolol tartrate 50 mg tablet 50 mg feeding tube Q8H polyethylene glycol 3350 [Miralax] 17 gram Powder In Packet 17 g PO QAM Qty: 30 0RF acetaminophen 160 mg/5 mL elixir 500 mg PO Q6H PRN (Reason: fever or pain) bisacodyl 5 mg tablet,delayed release (DR/EC) 10 mg PO DAILY ipratropium bromide 0.02 % solution 1.25 ml inhalation DAILY PRN (Reason: shortness of breath or wheezing) Maged 7-7-1.5 gram powder in packet 1 ea PO BID Dakin's Solution 0.125 % Solution 1 applic topical Q12HR Qty: 1000 0RF oxycodone 5 mg capsule 5 mg feeding tube Q8H Qty: 10 0RF furosemide 20 mg tablet 20 mg PO DAILY quetiapine 25 mg tablet 25 mg PO DAILY sodium bicarbonate 650 mg Tablet 325 mg PO BID Held dabigatran etexilate 150 mg capsule 150 mg PO BID Hold Instructions: Resume on 06/26/25. Hold until suprapubic catheter is placed Date of admission: 05/28/25 13:58 Primary Care Provider: KimberLuis Eduardo Admitting Provider: Barbara Evans Attending physician on admission: Barbara Evans Condition: Serious
--- NOTE | 2025-06-05 14:04 | P.PNGS_ITS ---
Progress Note: A&P Assessment and Plan (1) Supratherapeutic INR: Code(s): R79.1 - Abnormal coagulation profile Status: Acute Assessment and Plan: * INR 1.6 and PTT 57.5 after Eliquis has been held for multiple days. Ok to resume anticoagulation. If Eliquis, consider lower dose, as she was previously over-anticoagulated. (2) Decubitus ulcer, infected: Qualifiers: Pressure injury stage: stage 4 Qualified Code(s): L89.94 - Pressure ulcer of unspecified site, stage 4; L08.9 - Local infection of the skin and subcutaneous tissue, unspecified Code(s): L89.90 - Pressure ulcer of unspecified site, unspecified stage; L08.9 - Local infection of the skin and subcutaneous tissue, unspecified Status: Chronic Assessment and Plan: * No issues with bleeding from the left ischial wound for the past few days. Ok to resume a lower dose anticoagulant. * Will continue with Dakin's soaked gauze dressing changes. Consider FMS to keep stool from contaminating wounds. * Surgically stable for discharge to nursing facility. Continue local wound care. 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 Branham. Subjective Subjective Date/Time Seen: 06/05/25 14:04 Patient reports: no new complaints and still having pain Interval history: Patient notes pain, but us not able to localize it when asked. Patient upset upon visit. Had BMs overnight but reportedly none this morning. Exam Skin: Other: Wound dressings changed today with myself and nursing staff. All wounds appear stable. Objective Data Vital Signs Vital Signs: Vital Signs - 24 hr 06/04/25 16:00 06/04/25 16:00 06/04/25 20:00 Temperature 98.2 F Pulse Rate 89 99 Respiratory Rate 16 Blood Pressure 141/88 H Pulse Oximetry 96 Oxygen Delivery Room Air 06/04/25 20:00 06/04/25 20:14 06/04/25 21:40 Temperature 98.8 F Pulse Rate 104 H 107 H Respiratory Rate 18 Blood Pressure 156/92 H Pulse Oximetry 97 97 Oxygen Delivery Room Air 06/04/25 21:43 06/05/25 00:00 06/05/25 04:00 Temperature Pulse Rate 100 85 89 Respiratory Rate Blood Pressure Pulse Oximetry Oxygen Delivery 06/05/25 05:07 06/05/25 05:57 06/05/25 08:00 Temperature 97.6 F Pulse Rate 100 102 H Respiratory Rate 18 Blood Pressure 134/86 Pulse Oximetry 97 Oxygen Delivery Room Air 06/05/25 08:00 06/05/25 12:00 06/05/25 13:58 Temperature Pulse Rate 79 85 97 Respiratory Rate Blood Pressure Pulse Oximetry Oxygen Delivery Intake/Output Intake/Output: Intake & Output 06/02/25 06/03/25 06/04/25 06/05/25 23:59 23:59 23:59 23:59 Intake Total 2491 550 1068 Output Total 3574 042 2481 Balance 1341 300 -432 Meds/Results Medications: Active Medications Generic Name Dose Route Start Last Admin Trade Name Freq PRN Reason Stop Dose Admin Acetaminophen 500 mg 05/28/25 18:19 Acetaminophen Elixir 325 Mg/10.15 Ml Udc PO Q6H PRN fever or pain rated 1-3 Alteplase, Recombinant 2 mg 05/29/25 19:51 06/03/25 14:34 Alteplase 2 Mg Vial (Cathflo) IV PUSH 2 mg ONCE PRN Administration Line Occlusion Amoxicillin/Clavulanate Potassium 1 tablet 06/05/25 09:00 06/05/25 09:19 Amoxicillin/Clavulanate K 875-125 Mg Tab PO 1 tablet Q12HR MERLYN Administration Apixaban 5 mg 05/29/25 09:00 05/31/25 08:50 Apixaban 5 Mg Tablet FEED TUBE 5 mg On Hold: 05/31/25 15:02 Q12HR MERLYN Administration Calcium Carbonate 500 mg 06/02/25 12:00 06/05/25 12:07 Calcium Carbonate (Oscal) 500 Mg Tablet PO 500 mg TIDWM MERLYN Administration Citalopram Hydrobromide 30 mg 05/29/25 21:00 06/04/25 20:16 Citalopram Hydrobromide 10 Mg Tablet FEED TUBE 30 mg HS MERLYN Administration Doxycycline Hyclate 100 mg 06/05/25 09:00 06/05/25 09:19 Doxycycline Hyclate 100 Mg Tablet PO 100 mg Q12HR MERLYN Administration Famotidine 20 mg 06/01/25 21:00 06/05/25 09:19 Famotidine 20 Mg Tablet FEED TUBE 20 mg Q12HR MERLYN Administration Heparin Sodium (Beef Lung) 50 units 05/29/25 09:00 06/05/25 09:34 Heparin Flush 50 Units/5 Ml Syringe IV PUSH Not Given QAM MERLYN Heparin Sodium (Beef Lung) 50 units 05/29/25 09:00 06/05/25 12:30 Heparin Flush 50 Units/5 Ml Syringe IV PUSH 50 units PRN PRN Administration after intermittent infusion Heparin Sodium (Beef Lung) 50 units 05/29/25 09:00 Heparin Flush 50 Units/5 Ml Syringe IV PUSH PRN PRN after blood draws Heparin Sodium (Porcine) 500 units 05/29/25 09:00 Heparin Sodium Lock Flush 500 Units/5 Ml Syringe IV PUSH PRN PRN see comments below Metoprolol Tartrate 50 mg 05/28/25 22:00 06/05/25 13:58 Metoprolol Tartrate 50 Mg Tab FEED TUBE 50 mg Q8H MERLYN Administration Oxycodone HCl 5 mg 05/28/25 22:00 06/05/25 13:58 Oxycodone Hcl (*Crx) 5 Mg Tab Ir FEED TUBE 5 mg Q8H MERLYN Administration Polyethylene Glycol 17 gm 06/05/25 09:00 06/05/25 09:17 Polyethylene Glycol 3350 17 Gm Powd.Pack FEED TUBE Not Given Q48H MERLYN Pregabalin 75 mg 05/29/25 09:00 06/05/25 09:18 Pregabalin (*Crx) 75 Mg Capsule FEED TUBE 75 mg DAILY MERLYN Administration Quetiapine Fumarate 25 mg 05/29/25 09:00 06/05/25 09:18 Quetiapine Fumarate 25 Mg Tablet FEED TUBE 25 mg DAILY MERLYN Administration Senna/Docusate Sodium 1 tab 05/28/25 21:00 06/04/25 20:16 Senna/Docusate Sodium Tablet FEED TUBE Not Given HS MERLYN Sodium Bicarbonate 325 mg 06/01/25 21:00 06/05/25 09:18 Sodium Bicarbonate Tab 325 Mg Tablet FEED TUBE 325 mg Q12HR MERLYN Administration Sodium Chloride 10 ml 05/29/25 14:00 06/05/25 09:17 Central Line Flush IV PUSH Not Given Q8HR MERLYN Sodium Hypochlorite 1 applic 05/29/25 09:00 06/05/25 09:20 Sod Hypochlorite 1/4 Strength 473 Ml TOPICAL 1 applic Q12HR MERLYN Administration Thiamine HCl 300 mg 05/29/25 09:00 06/05/25 09:18 Thiamine Hcl 100 Mg Tablet FEED TUBE 300 mg QAM MERLYN Administration Trazodone HCl 50 mg 05/29/25 21:00 06/04/25 20:16 Trazodone Hcl 50 Mg Tablet FEED TUBE 50 mg HS MERLYN Administration Radiology Results: ITS Impressions Chest X-Ray 05/28/25 09:36 IMPRESSION: 1: Right hilum is prominent. The finding is new. Differential includes overlapping vasculature, adenopathy, consolidation or mass. A chest CT is recommended. 2. Small to moderate-sized patchy opacities scattered throughout both lungs. Differential includes but is not limited to edema or pneumonia. Follow-up is recommended. Attention follow-up chest CT imaging. Head CT 05/28/25 09:36 Impression: 1.No acute intracranial abnormality. Chest CT 05/28/25 11:13 IMPRESSION: Bilateral pneumonia. Follow-up recommended to assess resolution. Sacrum and Coccyx X-Ray 05/29/25 10:38 Impression: 1: No acute bone or joint abnormality identified. 2: Bilateral dislocation and remodeling of the hips, likely chronic. 3: If there is concern for osteomyelitis, further evaluation with MRI of the pelvis with contrast recommended. Thoracic Spine X-Ray 05/29/25 10:42 Impression: 1: Limited study due to scoliosis and osteopenia. Mild compression deformities of T8 and T9 with possible additional compression fractures which are difficult to evaluate due to patient rotation, demineralization and immobility. 2: Diffuse bilateral airspace disease which may represent edema or pneumonia. Labs Labs: Laboratory Results - last 24 hr 06/04/25 06/05/25 18:37 04:46 WBC 13.1 H RBC 3.14 L Hgb 8.3 L Hct 27.0 L MCV 86.0 MCH 26.4 MCHC 30.7 L RDW 20.2 H Plt Count 339 MPV 10.9 H Immature Gran % (Auto) 0.8 H Neut % (Auto) 70.4 Lymph % (Auto) 17.2 L [place] % (Auto) 7.6 Eos % (Auto) 3.8 Baso % (Auto) 0.2 Lymph # (Auto) 2.24 [place] # (Auto) 1.0 H Eos # (Auto) 0.5 H Baso # (Auto) 0.0 Abs Immat Gran (auto) 0.10 H Absolute Neuts (auto) 9.2 H Absolute Nucleated RBC 0.000 Nucleated RBC % 0.0 PT 18.6 H INR 1.6 APTT 57.5 H Sodium 137 Potassium 3.9 Chloride 109 H Carbon Dioxide 26 Anion Gap 2 L BUN 45 H Creatinine 1.20 H Estim Creat Clear Calc 38 Estimated GFR 46 L Glucose 113 H Calcium 8.4 Magnesium 1.5 L Total Bilirubin 0.2 AST 29 ALT 9 Alkaline Phosphatase 166 H Troponin I < 0.012 Total Protein 6.1 L Albumin 2.2 L
--- NOTE | 2025-06-05 14:15 | WNDPHOTO ---
PHOTO ONLY - See Nursing Notes and/ or assessments for documentation.
--- NOTE | 2025-06-05 14:16 | WNDPHOTO ---
PHOTO ONLY - See Nursing Notes and/ or assessments for documentation.
[2025-06-05] MEDS: HEPARIN SODIUM LOCK FLUSH 500 UNITS/5 ML SYRINGE IV PUSH (14:47)
== END 2025-06-05 15:50 | DRG 981 ==
LOC: ANHED 13:09 → ANHIMU 13:36 → ANH2MED 06-05 13:15 → ANHIMU 06-08 14:13
PROVIDERS: Nurse Practitioner Gerontology; Surgery; Admitting Provider Student in an Organized Health Care Education/Training Program; Emergency Provider Emergency Medicine; PCP Internal Medicine; Visit Provider Internal Medicine
DX: J18.9 Pneumonia, unspecified organism (principal); E43 Unspecified severe protein-calorie malnutrition; L89.324 Pressure ulcer of left buttock, stage 4; R53.2 Functional quadriplegia; L89.154 Pressure ulcer of sacral region, stage 4; L89.893 Pressure ulcer of other site, stage 3; L89.313 Pressure ulcer of right buttock, stage 3; L89.113 Pressure ulcer of right upper back, stage 3; N17.9 Acute kidney failure, unspecified; J96.11 Chronic respiratory failure with hypoxia; D62 Acute posthemorrhagic anemia; J44.0 Chronic obstructive pulmonary disease with (acute) lower respiratory infection; D68.9 Coagulation defect, unspecified; L89.610 Pressure ulcer of right heel, unstageable; L89.899 Pressure ulcer of other site, unspecified stage; I95.9 Hypotension, unspecified; G35 Multiple sclerosis; I12.9 Hypertensive chronic kidney disease with stage 1 through stage 4 chronic kidney disease, or unspecified chronic kidney disease; N18.30 Chronic kidney disease, stage 3 unspecified; E83.51 Hypocalcemia; E78.5 Hyperlipidemia, unspecified; M85.88 Other specified disorders of bone density and structure, other site; E87.6 Hypokalemia; R32 Unspecified urinary incontinence; M62.461 Contracture of muscle, right lower leg; M62.462 Contracture of muscle, left lower leg; F25.9 Schizoaffective disorder, unspecified; F17.210 Nicotine dependence, cigarettes, uncomplicated; Z99.81 Dependence on supplemental oxygen; Z68.20 Body mass index [BMI] 20.0-20.9, adult; Z90.5 Acquired absence of kidney; Z86.59 Personal history of other mental and behavioral disorders; Z93.1 Gastrostomy status; Z86.711 Personal history of pulmonary embolism; Z87.19 Personal history of other diseases of the digestive system; Z22.322 Carrier or suspected carrier of Methicillin resistant Staphylococcus aureus; Z74.01 Bed confinement status
CPT/HCPCS: 36415; 36430; 70450; 71045; 71250; 72070; 72220; 80048; 80053; 81001; 82565; 82948; 83605; 83735; 84484; 85014; 85018; 85025; 85610; 85730; 86850; 86900; 86901; 86923; 87040; 87086; 87186; 87641; 92610; 93005; 96361; 96365; 96367; 99285; A9270; G0378; J0612; J0692; J1642; J2997; J3373; J3430; J3475; J7030; J7050; J7120; J7168; P9016; P9047

== ENCOUNTER 2025-07-03 14:36 | Inpatient (IN) | payer MEDICARE, MEDICAID, SELFPAY ==
[2025-07-03] VITALS (10 sets, daily range): BP systolic 92–120; BP diastolic 67–79; PULSE 92–109; RESP 14–30; TEMP 36.3–36.5; O2SAT 98–100; BMI 19.1
--- NOTE | ~2025-07-03 | CT_ITS ---
CT ABDOMEN AND PELVIS WITHOUT CONTRAST Clinical History: abd pain, vomiting Comparison: 01/13/2025 Technique: Unenhanced axial images lung bases to symphysis pubis Coronal, sagittal reformats CT images acquired with automatic exposure control for dose reduction DLP: 229 mGy-cm Findings: Without intravenous contrast, sensitivity for detecting visceral parenchymal abnormalities decreased. Lung bases: Right basilar segmental atelectasis. Visualized heart and pericardium: Unremarkable. Liver: Unremarkable. Gallbladder: Unremarkable. Spleen: Unremarkable. Pancreas: Unremarkable. Adrenal glands: Unremarkable. Kidneys: Right kidney-removed. Left kidney- persistent mild hydronephrosis. No renal stones. Distal esophagus/stomach: PEG tube. Small bowel loops: Normal caliber and wall thickness. Colon: Normal caliber and wall thickness. Normal RLQ appendix. Stool-filled rectum Nodes: No enlarged nodes. Peritoneum: No ascites. No free intraperitoneal air. Urinary bladder: Unremarkable. Uterus: Unremarkable. Adnexa: No masses. Bones: No acute bony abnormality. Mild superior endplate height loss at L1 as before. 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 Soft tissues: Large open wound posterior left buttocks.Markedly improved soft tissue wound right buttocks. Unopacified abdominal aorta: No aneurysmal dilatation. IMPRESSION: 1. No acute abnormality. 2. Additional findings as above. 3. Chronic right basilar atelectasis and/or airspace disease. Reviewed, dictated and finalized at location R.
--- NOTE | ~2025-07-03 | US_ITS ---
EXAMINATION: US renal BI, 07/04/2025 12:02 CDT HISTORY: Acute renal failure Comparison: None Technique: Mendez-scale and color Doppler images were obtained. Findings: KIDNEYS: Right Kidney: Right kidney is surgically absent. Left Kidney: Left kidney 9.4 x 4 x 4.8 cm, mild hydronephrosis. Bladder: The bladder is unremarkable. . Impression: Mild left hydronephrosis Reviewed, dictated and finalized at location P. Impression: Mild left hydronephrosis
--- NOTE | ~2025-07-03 | XR_ITS ---
Examination: XR chest 1V portable Clinical History: RECENT TRAUMA Comparison: 05/28/2025 Technique: Portable AP Findings: Left chest port. Heart size normal. Chronic elevation right hemidiaphragm. Mild bibasilar atelectasis. No acute bony abnormality. IMPRESSION: 1. Chronic right basilar atelectasis and/or airspace disease. 2. Similar but less severe findings left lung. Reviewed, dictated and finalized at location R.
--- OUTSIDE RECORDS SUMMARY | 2025-07-03 15:34 | XMS_ITS | Clinical Summary ---
Author Organization [facility] Address [address] [place] [address] Care Team Providers Care Activated Sludge Operator Name Role Phone Luis Eduardo Quiroga MD Primary Care Provider + [phone] Source Comments [facility],non-owned Affiliates and Associated Physician Practices is amultiple site organization consisting of ambulatory clinics and hospital sitesin [place], [place], [place]. This disclosure is being madepursuant to the Care Everywhere program and may not contain all information available regarding this patient. Last updated 18.[facility] [employer] Allergies No known active allergies Medications * [...] route once daily 5 Active HYDROcodone-acet aminophen ([place]) 5-325 MG tabletIndication s:Closed fracture of distal [...] and heating? Patient unable to answer 12/07/2024 [facility] Occupat ional Health - Occupational Stress [...] any time in the past [facility], were you homeless or living in a assisted (including now)? Patient unable to answer 12/07/2024 Comments No Sex and Gender Information Value Date Recorded Sex Assigned at Not on file Legal Sex Female 6:26 PM ORTHO RN Gender Identity Not on file Sexual Orientation [...] Oxygen Concentration 28% 12/06/2024 3 :31 AM ORTHO RN Weight 49.4 kg (109 lb) 12/15/2024 4:00 AM CDT Height 160 cm (5' 3) 12/06/2024 3:30 PM ORTHO RN Body Mass Index 19.31 12/06/2024 3:30 PM ORTHO RN Plan of Treatment Health Maintenance Due Date [...] 1987 ZOSTER VACCINE (1 of 2) 2016 DEPRESSION SCREENING 10/01/2024 COVID-19 VACCINE (2024-2 6 season) 2025 11/03/2020, 10/13/2020 INFLUENZA VACCINE (#1) 2025 HIV SCREENING Completed [...] manageable. Interventions: Medical Devices Implanted Type Area Electromechanical Technologist Device Identifier Shelf Expiration Date Model / Serial / Lot Versanail [place] Femoral Nail 13mmx 36cm Implanted:Qty: 1 on 03/15/2020 by Raymon Blakely DO at [facility] Right: Femur 08/04/2027 [id number] / / [id number] Screw 4.5mm 46mm Oblq Ft Slf-Tap Sld 2 Implanted:Qty: 1 on 03/15/2020 by Raymon Blakely DO at [facility] Right: Femur [employer] [id number] / / Screw 4.5mm 50mm Ft Sld Slf-Tap Hip Fem Implanted:Qty: 1 on 03/15/2020 by Raymon Blakely DO at [facility] Right: Femur [employer] [id number] / / Screw 6.5mm 60mm Ft Sld Slf-Tap Drv End Implanted:Qty: 1 on 03/15/2020 by Raymon Blakely DO at [facility] Right: Femur [employer] [id number] / / Screw 6.5mm 85mm Ft Sld Slf-Tap Drv End Implanted:Qty: 1 on 03/15/2020 by Raymon Blakely DO at [facility] Right: Femur [employer] [id number] / / 12.2mm One Step Reamer Implanted:Qty: 1 on 03/15/2020 by Raymon Blakely DO at [facility] Right: Femur [employer] 03/03/2030 [id number] / / [id number] Description:Not an implant 6.5 Solidlock 50mm Implanted:Qty: 1 on 03/15/2020 by Raymon Blakely DO at [facility] Right: Femur [employer] [id number] / / Advanced Locking Screw Implanted:Qty: 1 on 12/12/2024 by Regina Vicente MD at [facility] Left: Knee 06/30/2034 [id number] / / [id number] Advanced Locking Screw Implanted:Qty: 1 on 12/12/2024 by Regina Vicente MD at [facility] Left: Knee 09/30/2029 [id number] / / [id number] Advanced Locking Screw Implanted:Qty: 1 on 12/12/2024 by Regina Vicente MD at [facility] Left: Knee 04/30/2034 [id number] / / [id number] Locking Screw Implanted:Qty: 1 on 12/12/2024 by Regina Vicente MD at [facility] Left: Knee 04/30/2034 [id number] / / [id number] Locking Screw Implanted:Qty: 1 on 12/12/2024 by Regina Vicente MD at [facility] Left: Knee 08/30/2033 [id number] / / [id number] Femoral Nail Retrograde Implanted:Qty: 1 on 12/12/2024 by Regina Vicente MD at [facility] Left: Knee 09/30/2032 [id number] / / [id number] Explanted Type Area Electromechanical Technologist Device Identifier Shelf Expiration Date Model / Serial / Lot Screw 4.5mm 42mm Oblq Ft Slf-Tap Sld 2 Explanted:Qty: 1 on 03/15/2020 at [facility] Right: Femur [employer] [id number] / / Procedures Procedure Name Priority Date/Time Associated Diagnosis Comments HIV-1 HIV-2 ANTIGEN/ANTIBODY Routine 03/19/2020 7:44 AM CDT from Last 3 Months or Most Recently Relevant to Health Maintenance Results * HIV-1 HIV-2 ANTIGEN/ANTIBODY (03/19/2020 7:44 AM CDT) HIV Antigen/Antibod y 1 & 2 Non-reacti ve Non-react tj 03/19/2020 8:29 AM CDT [facility] Comment:Neither HIV-1 p24 An tigen nor HIV-1/HIV-2 Antibodies are detected. Blood BLOOD SPECIMEN / Unknown Lab Venipuncture / Unknown 03/19/2020 7:44 AM CDT 03/19/2020 7:51 AM CDT us Cinthia Saldana MD LAB - HEMATOLOGY ORDERABLES Fi nal Result Performing Organization Address [facility]/State/ZIP Co de Phone Number [facility] [address] [id number] [phone] from Last 3 Months or Most Recently [...] 8:21 PM 03/19/2020 11:14 AM Care Teams Activated Sludge Operator Relationship Specialty Start Date End Date Luis Eduardo Quiroga MD PCP - General 03/05/18
--- OUTSIDE RECORDS SUMMARY | 2025-07-03 15:34 | XMS_ITS | Clinical Summary ---
Author Organization [facility] Address [address] [place] [address] Care Team Providers Care Ore Roaster Name Role Phone Ana Moore MD Primary Care Provider [phone] Allergies No known active allergies Medications atorvastatin [...] mental status 10/23/2021 Urinary incontinence Schizoaffective disorder ([facility]) Multiple sclerosis Functional quadriplegia ([facility]) Fracture of lower end of right [...] Sex Assigned at Female 11/16/2021 12:52 AM EDITOR MANAGING NEWSPAPER Legal Sex Female 7:54 PM CDT Gender Identity Female 11/16/2021 12:52 AM EDITOR MANAGING NEWSPAPER Sexual Orientation Not on file Last Filed [...] 5:51 AM CDT Height 160 cm (5' 3) 02/05/2022 7:40 AM CDT Body Mass Index [...] Screening with HPV 1996 Mammogram Screening 2006 Pneumococcal Vaccine: 50+ Years (1 of 1 - PCV) 2016 Zoster Vaccines (1 of 2) 2016 COVID-19 Vaccine (3 - 2024-2 6 season) 2025 11/05/2020, 10/14/2020 Colorectal Cancer Screening FIT/FOBT (1 [...] walker, shower chair) Lifestyle No Miriam Encarnacion, franchise business consultant Procedure Name Priority Date/Time Associated Diagnosis Comments OCCULT BLOOD, FECES STAT 11/15/2021 7 :54 PM EDITOR MANAGING NEWSPAPER from Last 3 Months or Most Recently Relevant to Health Maintenance Results * OCCULT BLOOD, FECES (11/15/2021 7:54 PM EDITOR MANAGING NEWSPAPER) OCCULT BLOOD FECAL POSITIVE 11/15/2021 8:12 [address] EDITOR MANAGING NEWSPAPER [facility] STOOL SPECIMEN / Unknown 11/15/2021 7:54 PM EDITOR MANAGING NEWSPAPER Renato Crawford MD,PHD BODY FLUIDS AND STOOLS ORD ERABLES Final Result [facility] [address] [place] [address], [place] [phone] from Last 3 Months or Most Recently Relevant to Health Maintenance Additional Health Concerns Infection Onset Date Last Indicated ESBL - Extended Spectrum Bet a-lactamase Comment:11/15/21 +ESBL Urine 02/05/22 +ESBL Urine 11/18/2021 11/18/2021 Insurance MEDICAID MEDICARE Advance Directives Documents on File Type Date Recorded Patient Processing Archivist Expl anation Advance Directives and Living Will 11/22/2021 4:10 PM 12/04/2020 GUARDIAN OF PERSON Advance Directives and Living Will 11/18/2021 3:08 PM 09/11/2019 POLST * Full Code (Latest Code Status on File) Date Activated Date Inactivated Comments 11/15/2021 11:56 PM 11/22/2021 5:51 PM Care Teams Ore Roaster Relationship Specialty Start Date End Date Ana Moore MD [address] [place] [address] [place] [address] PCP - General INTERNAL MEDICINE 02/05/22
--- NOTE | 2025-07-03 16:31 | ED.GENADULT ---
HPI - General Adult General Chief complaint: Unspecified <Arcelia Hussein PA-C - Last Filed: 07/06/25 17:30> Stated complaint: Chest Pain <Arcelia Hussein PA-C - Last Filed: 07/06/25 17:30> Time Seen by Provider: 07/03/25 15:19 <Arcelia Hussein PA-C - Last Filed: 07/06/25 17:30> Source: patient <LOREE Calix Last Filed: 07/06/25 17:30> Mode of arrival: EMS <LOREE Calix Last Filed: 07/06/25 17:30> Limitations: other (poor historian) <LOREE Calix Last Filed: 07/06/25 17:30> History of Present Illness HPI narrative: Patient presents to the emergency department for abdominal pain and vomiting. Ongoing over the last couple of hours. <LOREE Calix Last Filed: 07/06/25 17:30> Related Data Home medications: Home Medications ?Medication ?Instructions ?Recorded ?Confirmed ?Last Taken ?Type cholecalciferol (vitamin D3) 1,000 units G-tube DAILY 12/17/22 07/03/25 05/27/25 10:00 History famotidine 20 mg tablet 20 mg PO BID 12/17/22 07/03/25 05/27/25 17:00 History ondansetron 4 mg disintegrating 4 mg PO QID PRN Nausea And Vomiting 12/17/22 07/03/25 Unknown History tablet trazodone 50 mg tablet 50 mg PO HS 12/17/22 07/03/25 05/26/25 20:40 History sennosides 8.6 mg tablet (senna) 8.6 mg PO DAILY PRN Constipation 07/27/23 07/03/25 Unknown History citalopram 20 mg tablet 30 mg PO DAILY 06/20/24 07/03/25 05/27/25 10:00 History dextran 70-hypromellose eye drops 1 drp EACH EYE TID 06/20/24 07/03/25 05/27/25 12:00 History (Artificial Tears (dextran 70-hypromellose) eye drops) metoprolol tartrate 50 mg tablet 50 mg PO TID 06/20/24 07/03/25 05/27/25 17:20 History arginine 7 gram-glutamine 7 1 ea PO BID 01/13/25 07/03/25 05/27/25 17:20 History gram-calcium HMB 1.5 gram oral powder pack (Maged) bisacodyl 5 mg tablet,delayed 5 mg PO DAILY 01/13/25 07/03/25 05/27/25 10:00 History release ipratropium bromide 0.02 % 1.25 ml inhalation DAILY PRN 01/13/25 07/03/25 Unknown History solution for inhalation shortness of breath or wheezing dabigatran etexilate 150 mg capsule 150 mg PO BID 05/28/25 07/03/25 05/27/25 10:00 History Held on 06/05/25. Instructions: Resume on 06/26/25. Hold until suprapubic catheter is placed furosemide 20 mg tablet 20 mg feeding tube DAILY 05/28/25 07/03/25 05/27/25 10:00 History quetiapine 25 mg tablet 25 mg PO DAILY 05/28/25 07/03/25 05/27/25 10:20 History sodium bicarbonate 650 mg tablet 325 mg PO BID 05/28/25 07/03/25 05/27/25 10:00 History magnesium citrate (Citroma oral 296 ml PO DAILY PRN constipation 07/03/25 07/03/25 Unknown History solution) magnesium hydroxide 400 mg/5 mL 30 ml PO DAILY PRN constipation 07/03/25 07/03/25 Unknown History oral suspension (Milk of Magnesia) svkstrpvfdlf-qjtl-rpdnn acid 1 tablet PO DAILY 07/03/25 07/03/25 Unknown History oxycodone 5 mg capsule 5 mg PO Q8H PRN pain 07/03/25 07/03/25 Unknown History pregabalin 75 mg capsule 75 mg PO DAILY 07/03/25 07/03/25 Unknown History sodium phosphates 133 ml RECTAL DAILY PRN 07/03/25 07/03/25 Unknown History constipation lactose-reduced food with fiber 1 ea feeding tube .continuous 07/04/25 07/04/25 Unknown History 0.06 gram-1.5 kcal/mL oral liquid (Jevity 1.5 Elmer) <Arcelia Hussein PA-C - Last Filed: 07/06/25 17:30> Allergies/adverse reactions: Allergies Allergy/AdvReac Type Severity Reaction Status Date / Time No Known Allergies Allergy Verified 07/03/25 17:22 <Arcelia Hussein PA-C - Last Filed: 07/06/25 17:30> Review of Systems Review of Systems: ROS unobtainable: Yes unobtainable due to medical condition <Arcelia Hussein PA-C - Last Filed: 07/06/25 17:30> [facility] Past Medical History Medical History: Medical History Multiple sclerosis Gastrointestinal tube in situ Chronic kidney disease, stage 3 Anorexia Malnutrition Pulmonary embolism (2014) Xanthogranulomatous pyelonephritis MRSA infection Urinary tract infection due to extended-spectrum beta lactamase (ESBL) producing Escherichia coli Chronic respiratory failure with hypoxia, on home oxygen therapy Previously documented that the patient is oxygen dependent on 4 L nasal cannula however she denies and is on room air with good SpO2 as of 07/27/2023. Chronic obstructive pulmonary disease Pyelonephritis Anemia Hyperlipidemia Dementia Functional quadriplegia secondary to MS Depression Generalized anxiety disorder Essential (primary) hypertension Calculus of kidney Extended spectrum beta lactamase (ESBL) resistance GI bleed Intestinal obstruction Urinary retention Overactive bladder Colitis Schizoaffective disorder Asthma Multiple sclerosis <LOREE Calix Last Filed: 07/06/25 17:30> Surgical History Surgical History: Surgical History Status post insertion of percutaneous endoscopic gastrostomy (PEG) tube (12/2023) History of removal of ureteral stent History of tubal ligation 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 History of nephrostomy <LOREE Calix Last Filed: 07/06/25 17:30> Family History Family History: Family History Mother Family history of multiple sclerosis Hypertension Father Patient's father is <Arcelia Hussein PA-C - Last Filed: 07/06/25 17:30> Social History Social History: Social History Social History: She resides at [facility]. Patient is a ramos of [facility]. Her guardian is Abe Burnham ([phone]). Code status: Full code. Smoking packs per day: 0.5 Smoking cigarettes per day: 10.0 Years smoked: 1 Smoking pack-years: 0.50 Smoking status: Never smoker Second hand tobacco smoke exposure: No Alcohol intake: never Substance use: never Do You Feel Safe in your Home?: Yes Lack of Transportation: No Lack of Food: Never True Current Housing: I Have Housing Concerned About Future Housing: No Difficulty Paying Gas/Electric Bills: No Difficulty Paying for Meds: No Currently Unemployed: No Education: Don't Know Difficulty w/ Childcare or Family Care: No Living arrangements: assisted Additional living arrangements comments: 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ion: other Additional occupation/education comments: Disabled Spiritual care concerns: No Agree to blood products: Yes <Arcelia Hussein PA-C - Last Filed: 07/06/25 17:30> Exam Narrative: GENERAL: Chronically ill-appearing, well-nourished, and in no acute distress. HEAD: Normocephalic, atraumatic. EYES: EOMI. ENT: Nares clear, no rhinorrhea or epistaxis. Mucous membranes moist. Oropharynx without tonsillar hypertrophy exudate or other lesions. NECK: Supple. No adenopathy or masses CHEST: Clear to auscultation. No respiratory distress. No wheezes rales or rhonchi HEART: Regular rate and rhythm. No murmur heard. Normal peripheral pulses. ABDOMEN: Distended, normal active bowel sounds. EXTREMITIES: No edema. SKIN: Warm, dry, no rash. Multiple pressure sores without surrounding edema or erythema NEURO: Alert and oriented x2. PSYCH: Normal mood and affect <Arcelia Hussein PA-C - Last Filed: 07/06/25 17:30> Course PHOTOGRAPHIC PROCESSOR/PA Physician Supervision This patient was admitted to the hospital. I was available for consultation while patient was in the emergency department but did not personally evaluate them was not directly involved in their care. <Yuli Houston MD - Last Filed: 07/04/25 17:50> Vital Signs Vital signs: Vital Signs Temperature 97.7 F 07/03/25 14:36 Pulse Rate 109 H 07/03/25 14:36 Respiratory Rate 30 H 07/03/25 14:36 Blood Pressure 92/67 L 07/03/25 14:36 Pulse Oximetry 100 07/03/25 14:36 Oxygen Delivery Room Air 07/03/25 14:36 Temperature 97.2 F L 07/06/25 06:00 Pulse Rate 88 07/06/25 08:52 Respiratory Rate 16 07/06/25 06:00 Blood Pressure 128/77 07/06/25 06:00 Pulse Oximetry 100 07/06/25 06:00 Oxygen Delivery Room Air 07/05/25 08:00 <Arcelia Hussein PA-C - Last Filed: 07/06/25 17:30> Vital Signs Temperature 97.7 F 07/03/25 14:36 Pulse Rate 109 H 07/03/25 14:36 Respiratory Rate 30 H 07/03/25 14:36 Blood Pressure 92/67 L 07/03/25 14:36 Pulse Oximetry 100 07/03/25 14:36 Oxygen Delivery Room Air 07/03/25 14:36 Temperature 97.2 F L 07/06/25 06:00 Pulse Rate 88 07/06/25 08:52 Respiratory Rate 16 07/06/25 06:00 Blood Pressure 128/77 07/06/25 06:00 Pulse Oximetry 100 07/06/25 06:00 Oxygen Delivery Room Air 07/05/25 08:00 <Denise Hernandez, PERSONNEL RESEARCH PSYCHOLOGIST - Last Filed: 07/03/25 20:17> Vital Signs Temperature 97.7 F 07/03/25 14:36 Pulse Rate 109 H 07/03/25 14:36 Respiratory Rate 30 H 07/03/25 14:36 Blood Pressure 92/67 L 07/03/25 14:36 Pulse Oximetry 100 07/03/25 14:36 Oxygen Delivery Room Air 07/03/25 14:36 Temperature 97.2 F L 07/06/25 06:00 Pulse Rate 88 07/06/25 08:52 Respiratory Rate 16 07/06/25 06:00 Blood Pressure 128/77 07/06/25 06:00 Pulse Oximetry 100 07/06/25 06:00 Oxygen Delivery Room Air 07/05/25 08:00 <Yuli Houston MD - Last Filed: 07/04/25 17:50> Medical Decision Making MDM Narrative Medical decision making narrative: Patient presents the emergency department for abdominal discomfort, nausea and vomiting. She is afebrile and nontoxic appearing. Multiple chronic pressure wounds. None appear acutely infected at this time. Blood pressure soft and patient tachycardic upon arrival. This normalized with IV fluids. CBC with leukocytosis. Hemoglobin appears similar to previous. Metabolic panel with evidence of dehydration. Pending UA, CT abdomen pelvis care taken over by MELISSA Walker with plan for likely admission. Blood cultures drawn, patient started on IV antibiotics for presumptive UTI Results of imaging and lab work shared with patient. It was advised patient be admitted to the hospital for further evaluation and treatment. Patient verbalized understanding and are in agreement with plan. <Arcelia Hussein PA-C - Last Filed: 07/06/25 17:30> Results of imaging and lab work shared with patient. It was advised patient be admitted to the hospital for further evaluation and treatment. Patient verbalized understanding and are in agreement with plan. <Denise Hernandez APRN - Last Filed: 07/03/25 20:17> Differential Diagnosis Differential Diagnosis: Urinary tract infection, sepsis, pressure ulcer infection <Denise Hernandez APRN - Last Filed: 07/03/25 20:17> Vital Signs Vital Signs: Vital Signs Temperature 97.7 F 07/03/25 14:36 Pulse Rate 109 H 07/03/25 14:36 Respiratory Rate 30 H 07/03/25 14:36 Blood Pressure 92/67 L 07/03/25 14:36 Pulse Oximetry 100 07/03/25 14:36 Oxygen Delivery Room Air 07/03/25 14:36 Temperature 97.2 F L 07/06/25 06:00 Pulse Rate 88 07/06/25 08:52 Respiratory Rate 16 07/06/25 06:00 Blood Pressure 128/77 07/06/25 06:00 Pulse Oximetry 100 07/06/25 06:00 Oxygen Delivery Room Air 07/05/25 08:00 <Arcelia Hussein PA-C - Last Filed: 07/06/25 17:30> Vital Signs Temperature 97.7 F 07/03/25 14:36 Pulse Rate 109 H 07/03/25 14:36 Respiratory Rate 30 H 07/03/25 14:36 Blood Pressure 92/67 L 07/03/25 14:36 Pulse Oximetry 100 07/03/25 14:36 Oxygen Delivery Room Air 07/03/25 14:36 Temperature 97.2 F L 07/06/25 06:00 Pulse Rate 88 07/06/25 08:52 Respiratory Rate 16 07/06/25 06:00 Blood Pressure 128/77 07/06/25 06:00 Pulse Oximetry 100 07/06/25 06:00 Oxygen Delivery Room Air 07/05/25 08:00 <Denise Hernandez APRN - Last Filed: 07/03/25 20:17> Vital Signs Temperature 97.7 F 07/03/25 14:36 Pulse Rate 109 H 07/03/25 14:36 Respiratory Rate 30 H 07/03/25 14:36 Blood Pressure 92/67 L 07/03/25 14:36 Pulse Oximetry 100 07/03/25 14:36 Oxygen Delivery Room Air 07/03/25 14:36 Temperature 97.2 F L 07/06/25 06:00 Pulse Rate 88 07/06/25 08:52 Respiratory Rate 16 07/06/25 06:00 Blood Pressure 128/77 07/06/25 06:00 Pulse Oximetry 100 07/06/25 06:00 Oxygen Delivery Room Air 07/05/25 08:00 <Yuli Houston MD - Last Filed: 07/04/25 17:50> Lab Data Lab results reviewed: Yes I reviewed the patient's lab results. <Denise Hernandez APRN - Last Filed: 07/03/25 20:17> Result diagrams: 07/06/25 07:01 07/06/25 07:01 <Arcelia Hussein PA-C - Last Filed: 07/06/25 17:30> Labs: Lab Results 07/03/25 07/03/25 07/03/25 Range/Units 16:59 17:22 19:37 WBC 18.9 H (4.5-10.0) K/mm3 RBC 2.78 L (4.2-5.4) M/mm3 Hgb 7.3 L (12.0-15.0) g/dL Hct 25.2 L (37.0-47.0) % MCV 90.6 (80-100) fl MCH 26.3 (26-34) pg MCHC 29.0 L (32-36) g/dl RDW 18.6 H (11.5-14.5) % Plt Count 364 (150-375) k/mm3 MPV 10.7 H (7.4-10.4) fl Immature Gran % (Auto) 0.5 (0-0.5) % Neut % (Auto) 76.2 H (45.5-73.1) % Lymph % (Auto) 14.3 L (18.3-44.2) % [place] % (Auto) 4.3 (2.6-8.5) % Eos % (Auto) 4.3 (0-4.4) % Baso % (Auto) 0.4 (0.2-1.2) % Lymph # (Auto) 2.70 (0.9-3.2) K/mm3 [place] # (Auto) 0.8 H (0.1-0.6) K/mm3 Eos # (Auto) 0.8 H (0-0.3) K/mm3 Baso # (Auto) 0.1 (0.0-0.1) K/mm3 Abs Immat Gran (auto) 0.10 H (0.00-0.031) K/mm3 Absolute Neuts (auto) 14.4 H (1.3-6.7) K/mm3 Absolute Nucleated RBC 0.000 (0.0-0.012) K/mm3 Band Neutrophils % Not Reportable Nucleated RBC % 0.0 (0.0-0.2) % Platelet Estimate Adequate (Adequate) Hypochromasia 1+ Anisocytosis 1+ Schistocytes None seen PT 15.6 H (11.1-14.7) Seconds INR 1.3 APTT 32.7 (22.3-36.8) Seconds Sodium 140 (137-145) mmol/L Potassium 5.1 H (3.4-5.0) mmol/L Chloride 105 (98-107) mmol/L Carbon Dioxide 27 (22-30) mmol/L Anion Gap 8 (4-12) mmol/L BUN 105 H* D (7-17) mg/dL Creatinine 2.05 H (0.7-1.0) mg/dL Estim Creat Clear Calc 21 ml/min Estimated GFR 25 L (59 - ) Glucose 91 (65-110) mg/dL POC Capillary Glucose (65-105) mg/dl Lactic Acid 1.0 (0.7-2.0) mmol/L Calcium 8.1 L (8.4-10.2) mg/dL Iron (37-170) ug/dL TIBC (261-462) ug/dL % Saturation (20-50) % Ferritin (11.1-264) ng/mL Total Bilirubin 0.4 (0.2-1.3) mg/dL AST 24 (14-36) U/L ALT 16 (6-35) U/L Alkaline Phosphatase 174 H (38-126) U/L C-Reactive Protein 5.9 H (<1.0) mg/dL Total Protein 8.6 H (6.3-8.2) g/dL Albumin 3.3 L (3.5-5.1) g/dL Lipase 385 H (23-300) U/L Vitamin B12 (239-931) pg/mL Folate (2.76->20) ng/mL Urine Color Yellow (Yellow) Urine Appearance Clear (Clear) Urine pH 8.5 (5.0-9.0) Ur Specific [place] 1.018 (1.001-1.035) Urine Protein 2+ H (Negative) mg/dL Urine Glucose (UA) Negative (Negative) mg/dL Urine Ketones Negative (Negative) mg/dL Ur Blood (Man) 1+ H (Negative) Urine Nitrate Negative (Negative) Urine Bilirubin Negative (Negative) Urine Urobilinogen 0.2 (<2.0) mg/dL Leukocyte Esterase Rfl 2+ H (Negative) GOMEZ/UL Urine RBC 11-20 H (0-2) /hpf Urine WBC 51-100 H (0-3) /hpf Ur Squamous Epith Cells None seen (Few) /hpf Urine Bacteria None seen /hpf Urine Casts 0-2 POC Urine HCG, Qual (Negative) 07/03/25 07/04/25 07/04/25 Range/Units 19:39 02:54 05:47 WBC (4.5-10.0) K/mm3 RBC (4.2-5.4) M/mm3 Hgb (12.0-15.0) g/dL Hct (37.0-47.0) % MCV (80-100) fl MCH (26-34) pg MCHC (32-36) g/dl RDW (11.5-14.5) % Plt Count (150-375) k/mm3 MPV (7.4-10.4) fl Immature Gran % (Auto) (0-0.5) % Neut % (Auto) (45.5-73.1) % Lymph % (Auto) (18.3-44.2) % [place] % (Auto) (2.6-8.5) % Eos % (Auto) (0-4.4) % Baso % (Auto) (0.2-1.2) % Lymph # (Auto) (0.9-3.2) K/mm3 [place] # (Auto) (0.1-0.6) K/mm3 Eos # (Auto) (0-0.3) K/mm3 Baso # (Auto) (0.0-0.1) K/mm3 Abs Immat Gran (auto) (0.00-0.031) K/mm3 Absolute Neuts (auto) (1.3-6.7) K/mm3 Absolute Nucleated RBC (0.0-0.012) K/mm3 Band Neutrophils % Nucleated RBC % (0.0-0.2) % Platelet Estimate (Adequate) Hypochromasia Anisocytosis Schistocytes PT (11.1-14.7) Seconds INR APTT (22.3-36.8) Seconds Sodium (137-145) mmol/L Potassium (3.4-5.0) mmol/L Chloride (98-107) mmol/L Carbon Dioxide (22-30) mmol/L Anion Gap (4-12) mmol/L BUN (7-17) mg/dL Creatinine (0.7-1.0) mg/dL Estim Creat Clear Calc ml/min Estimated GFR (59 - ) Glucose (65-110) mg/dL POC Capillary Glucose 78 (65-105) mg/dl Lactic Acid (0.7-2.0) mmol/L Calcium (8.4-10.2) mg/dL Iron (37-170) ug/dL TIBC (261-462) ug/dL % Saturation (20-50) % Ferritin (11.1-264) ng/mL Total Bilirubin (0.2-1.3) mg/dL AST (14-36) U/L ALT (6-35) U/L Alkaline Phosphatase (38-126) U/L C-Reactive Protein 7.8 H (<1.0) mg/dL Total Protein (6.3-8.2) g/dL Albumin (3.5-5.1) g/dL Lipase (23-300) U/L Vitamin B12 741.0 (239-931) pg/mL Folate 8.4 (2.76->20) ng/mL Urine Color (Yellow) Urine Appearance (Clear) Urine pH (5.0-9.0) Ur Specific [place] (1.001-1.035) Urine Protein (Negative) mg/dL Urine Glucose (UA) (Negative) mg/dL Urine Ketones (Negative) mg/dL Ur Blood (Man) (Negative) Urine Nitrate (Negative) Urine Bilirubin (Negative) Urine Urobilinogen (<2.0) mg/dL Leukocyte Esterase Rfl (Negative) GOMEZ/UL Urine RBC (0-2) /hpf Urine WBC (0-3) /hpf Ur Squamous Epith Cells (Few) /hpf Urine Bacteria /hpf Urine Casts POC Urine HCG, Qual Negative (Negative) 07/04/25 Range/Units 05:51 WBC 11.3 H (4.5-10.0) K/mm3 RBC 2.53 L (4.2-5.4) M/mm3 Hgb 6.8 L* (12.0-15.0) g/dL Hct 23.4 L (37.0-47.0) % MCV 92.5 (80-100) fl MCH 26.9 (26-34) pg MCHC 29.1 L (32-36) g/dl RDW 17.8 H (11.5-14.5) % Plt Count 277 (150-375) k/mm3 MPV 11.1 H (7.4-10.4) fl Immature Gran % (Auto) 0.4 (0-0.5) % Neut % (Auto) 73.0 (45.5-73.1) % Lymph % (Auto) 15.8 L (18.3-44.2) % [place] % (Auto) 4.6 (2.6-8.5) % Eos % (Auto) 5.9 H (0-4.4) % Baso % (Auto) 0.3 (0.2-1.2) % Lymph # (Auto) 1.79 (0.9-3.2) K/mm3 [place] # (Auto) 0.5 (0.1-0.6) K/mm3 Eos # (Auto) 0.7 H (0-0.3) K/mm3 Baso # (Auto) 0.0 (0.0-0.1) K/mm3 Abs Immat Gran (auto) 0.04 H (0.00-0.031) K/mm3 Absolute Neuts (auto) 8.3 H (1.3-6.7) K/mm3 Absolute Nucleated RBC 0.000 (0.0-0.012) K/mm3 Band Neutrophils % Not Reportable Nucleated RBC % 0.0 (0.0-0.2) % Platelet Estimate Adequate (Adequate) Hypochromasia 1+ Anisocytosis Schistocytes None seen PT (11.1-14.7) Seconds INR APTT (22.3-36.8) Seconds Sodium 141 (137-145) mmol/L Potassium 4.7 (3.4-5.0) mmol/L Chloride 110 H (98-107) mmol/L Carbon Dioxide 23 (22-30) mmol/L Anion Gap 8 (4-12) mmol/L BUN 85 H D (7-17) mg/dL Creatinine 1.72 H (0.7-1.0) mg/dL Estim Creat Clear Calc 25 ml/min Estimated GFR 30 L (59 - ) Glucose 79 (65-110) mg/dL POC Capillary Glucose (65-105) mg/dl Lactic Acid (0.7-2.0) mmol/L Calcium 7.9 L (8.4-10.2) mg/dL Iron 28 L (37-170) ug/dL TIBC 189 L (261-462) ug/dL % Saturation 15 L (20-50) % Ferritin 703.00 H (11.1-264) ng/mL Total Bilirubin (0.2-1.3) mg/dL AST (14-36) U/L ALT (6-35) U/L Alkaline Phosphatase (38-126) U/L C-Reactive Protein (<1.0) mg/dL Total Protein (6.3-8.2) g/dL Albumin (3.5-5.1) g/dL Lipase (23-300) U/L Vitamin B12 (239-931) pg/mL Folate (2.76->20) ng/mL Urine Color (Yellow) Urine Appearance (Clear) Urine pH (5.0-9.0) Ur Specific [place] (1.001-1.035) Urine Protein (Negative) mg/dL Urine Glucose (UA) (Negative) mg/dL Urine Ketones (Negative) mg/dL Ur Blood (Man) (Negative) Urine Nitrate (Negative) Urine Bilirubin (Negative) Urine Urobilinogen (<2.0) mg/dL Leukocyte Esterase Rfl (Negative) GOMEZ/UL Urine RBC (0-2) /hpf Urine WBC (0-3) /hpf Ur Squamous Epith Cells (Few) /hpf Urine Bacteria /hpf Urine Casts POC Urine HCG, Qual (Negative) <Arcelia Hussein PA-C - Last Filed: 07/06/25 17:30> Lab Results 07/03/25 07/03/25 07/03/25 Range/Units 16:59 17:22 19:37 WBC 18.9 H (4.5-10.0) K/mm3 RBC 2.78 L (4.2-5.4) M/mm3 Hgb 7.3 L (12.0-15.0) g/dL Hct 25.2 L (37.0-47.0) % MCV 90.6 (80-100) fl MCH 26.3 (26-34) pg MCHC 29.0 L (32-36) g/dl RDW 18.6 H (11.5-14.5) % Plt Count 364 (150-375) k/mm3 MPV 10.7 H (7.4-10.4) fl Immature Gran % (Auto) 0.5 (0-0.5) % Neut % (Auto) 76.2 H (45.5-73.1) % Lymph % (Auto) 14.3 L (18.3-44.2) % [place] % (Auto) 4.3 (2.6-8.5) % Eos % (Auto) 4.3 (0-4.4) % Baso % (Auto) 0.4 (0.2-1.2) % Lymph # (Auto) 2.70 (0.9-3.2) K/mm3 [place] # (Auto) 0.8 H (0.1-0.6) K/mm3 Eos # (Auto) 0.8 H (0-0.3) K/mm3 Baso # (Auto) 0.1 (0.0-0.1) K/mm3 Abs Immat Gran (auto) 0.10 H (0.00-0.031) K/mm3 Absolute Neuts (auto) 14.4 H (1.3-6.7) K/mm3 Absolute Nucleated RBC 0.000 (0.0-0.012) K/mm3 Band Neutrophils % Not Reportable Nucleated RBC % 0.0 (0.0-0.2) % Platelet Estimate Adequate (Adequate) Hypochromasia 1+ Anisocytosis 1+ Schistocytes None seen PT 15.6 H (11.1-14.7) Seconds INR 1.3 APTT 32.7 (22.3-36.8) Seconds Sodium 140 (137-145) mmol/L Potassium 5.1 H (3.4-5.0) mmol/L Chloride 105 (98-107) mmol/L Carbon Dioxide 27 (22-30) mmol/L Anion Gap 8 (4-12) mmol/L BUN 105 H* D (7-17) mg/dL Creatinine 2.05 H (0.7-1.0) mg/dL Estim Creat Clear Calc 21 ml/min Estimated GFR 25 L (59 - ) Glucose 91 (65-110) mg/dL POC Capillary Glucose (65-105) mg/dl Lactic Acid 1.0 (0.7-2.0) mmol/L Calcium 8.1 L (8.4-10.2) mg/dL Iron (37-170) ug/dL TIBC (261-462) ug/dL % Saturation (20-50) % Ferritin (11.1-264) ng/mL Total Bilirubin 0.4 (0.2-1.3) mg/dL AST 24 (14-36) U/L ALT 16 (6-35) U/L Alkaline Phosphatase 174 H (38-126) U/L C-Reactive Protein 5.9 H (<1.0) mg/dL Total Protein 8.6 H (6.3-8.2) g/dL Albumin 3.3 L (3.5-5.1) g/dL Lipase 385 H (23-300) U/L Vitamin B12 (239-931) pg/mL Folate (2.76->20) ng/mL Urine Color Yellow (Yellow) Urine Appearance Clear (Clear) Urine pH 8.5 (5.0-9.0) Ur Specific [place] 1.018 (1.001-1.035) Urine Protein 2+ H (Negative) mg/dL Urine Glucose (UA) Negative (Negative) mg/dL Urine Ketones Negative (Negative) mg/dL Ur Blood (Man) 1+ H (Negative) Urine Nitrate Negative (Negative) Urine Bilirubin Negative (Negative) Urine Urobilinogen 0.2 (<2.0) mg/dL Leukocyte Esterase Rfl 2+ H (Negative) GOMEZ/UL Urine RBC 11-20 H (0-2) /hpf Urine WBC 51-100 H (0-3) /hpf Ur Squamous Epith Cells None seen (Few) /hpf Urine Bacteria None seen /hpf Urine Casts 0-2 POC Urine HCG, Qual (Negative) 07/03/25 07/04/25 07/04/25 Range/Units 19:39 02:54 05:47 WBC (4.5-10.0) K/mm3 RBC (4.2-5.4) M/mm3 Hgb (12.0-15.0) g/dL Hct (37.0-47.0) % MCV (80-100) fl MCH (26-34) pg MCHC (32-36) g/dl RDW (11.5-14.5) % Plt Count (150-375) k/mm3 MPV (7.4-10.4) fl Immature Gran % (Auto) (0-0.5) % Neut % (Auto) (45.5-73.1) % Lymph % (Auto) (18.3-44.2) % [place] % (Auto) (2.6-8.5) % Eos % (Auto) (0-4.4) % Baso % (Auto) (0.2-1.2) % Lymph # (Auto) (0.9-3.2) K/mm3 [place] # (Auto) (0.1-0.6) K/mm3 Eos # (Auto) (0-0.3) K/mm3 Baso # (Auto) (0.0-0.1) K/mm3 Abs Immat Gran (auto) (0.00-0.031) K/mm3 Absolute Neuts (auto) (1.3-6.7) K/mm3 Absolute Nucleated RBC (0.0-0.012) K/mm3 Band Neutrophils % Nucleated RBC % (0.0-0.2) % Platelet Estimate (Adequate) Hypochromasia Anisocytosis Schistocytes PT (11.1-14.7) Seconds INR APTT (22.3-36.8) Seconds Sodium (137-145) mmol/L Potassium (3.4-5.0) mmol/L Chloride (98-107) mmol/L Carbon Dioxide (22-30) mmol/L Anion Gap (4-12) mmol/L BUN (7-17) mg/dL Creatinine (0.7-1.0) mg/dL Estim Creat Clear Calc ml/min Estimated GFR (59 - ) Glucose (65-110) mg/dL POC Capillary Glucose 78 (65-105) mg/dl Lactic Acid (0.7-2.0) mmol/L Calcium (8.4-10.2) mg/dL Iron (37-170) ug/dL TIBC (261-462) ug/dL % Saturation (20-50) % Ferritin (11.1-264) ng/mL Total Bilirubin (0.2-1.3) mg/dL AST (14-36) U/L ALT (6-35) U/L Alkaline Phosphatase (38-126) U/L C-Reactive Protein 7.8 H (<1.0) mg/dL Total Protein (6.3-8.2) g/dL Albumin (3.5-5.1) g/dL Lipase (23-300) U/L Vitamin B12 741.0 (239-931) pg/mL Folate 8.4 (2.76->20) ng/mL Urine Color (Yellow) Urine Appearance (Clear) Urine pH (5.0-9.0) Ur Specific [place] (1.001-1.035) Urine Protein (Negative) mg/dL Urine Glucose (UA) (Negative) mg/dL Urine Ketones (Negative) mg/dL Ur Blood (Man) (Negative) Urine Nitrate (Negative) Urine Bilirubin (Negative) Urine Urobilinogen (<2.0) mg/dL Leukocyte Esterase Rfl (Negative) GOMEZ/UL Urine RBC (0-2) /hpf Urine WBC (0-3) /hpf Ur Squamous Epith Cells (Few) /hpf Urine Bacteria /hpf Urine Casts POC Urine HCG, Qual Negative (Negative) 07/04/25 Range/Units 05:51 WBC 11.3 H (4.5-10.0) K/mm3 RBC 2.53 L (4.2-5.4) M/mm3 Hgb 6.8 L* (12.0-15.0) g/dL Hct 23.4 L (37.0-47.0) % MCV 92.5 (80-100) fl MCH 26.9 (26-34) pg MCHC 29.1 L (32-36) g/dl RDW 17.8 H (11.5-14.5) % Plt Count 277 (150-375) k/mm3 MPV 11.1 H (7.4-10.4) fl Immature Gran % (Auto) 0.4 (0-0.5) % Neut % (Auto) 73.0 (45.5-73.1) % Lymph % (Auto) 15.8 L (18.3-44.2) % [place] % (Auto) 4.6 (2.6-8.5) % Eos % (Auto) 5.9 H (0-4.4) % Baso % (Auto) 0.3 (0.2-1.2) % Lymph # (Auto) 1.79 (0.9-3.2) K/mm3 [place] # (Auto) 0.5 (0.1-0.6) K/mm3 Eos # (Auto) 0.7 H (0-0.3) K/mm3 Baso # (Auto) 0.0 (0.0-0.1) K/mm3 Abs Immat Gran (auto) 0.04 H (0.00-0.031) K/mm3 Absolute Neuts (auto) 8.3 H (1.3-6.7) K/mm3 Absolute Nucleated RBC 0.000 (0.0-0.012) K/mm3 Band Neutrophils % Not Reportable Nucleated RBC % 0.0 (0.0-0.2) % Platelet Estimate Adequate (Adequate) Hypochromasia 1+ Anisocytosis Schistocytes None seen PT (11.1-14.7) Seconds INR APTT (22.3-36.8) Seconds Sodium 141 (137-145) mmol/L Potassium 4.7 (3.4-5.0) mmol/L Chloride 110 H (98-107) mmol/L Carbon Dioxide 23 (22-30) mmol/L Anion Gap 8 (4-12) mmol/L BUN 85 H D (7-17) mg/dL Creatinine 1.72 H (0.7-1.0) mg/dL Estim Creat Clear Calc 25 ml/min Estimated GFR 30 L (59 - ) Glucose 79 (65-110) mg/dL POC Capillary Glucose (65-105) mg/dl Lactic Acid (0.7-2.0) mmol/L Calcium 7.9 L (8.4-10.2) mg/dL Iron 28 L (37-170) ug/dL TIBC 189 L (261-462) ug/dL % Saturation 15 L (20-50) % Ferritin 703.00 H (11.1-264) ng/mL Total Bilirubin (0.2-1.3) mg/dL AST (14-36) U/L ALT (6-35) U/L Alkaline Phosphatase (38-126) U/L C-Reactive Protein (<1.0) mg/dL Total Protein (6.3-8.2) g/dL Albumin (3.5-5.1) g/dL Lipase (23-300) U/L Vitamin B12 (239-931) pg/mL Folate (2.76->20) ng/mL Urine Color (Yellow) Urine Appearance (Clear) Urine pH (5.0-9.0) Ur Specific [place] (1.001-1.035) Urine Protein (Negative) mg/dL Urine Glucose (UA) (Negative) mg/dL Urine Ketones (Negative) mg/dL Ur Blood (Man) (Negative) Urine Nitrate (Negative) Urine Bilirubin (Negative) Urine Urobilinogen (<2.0) mg/dL Leukocyte Esterase Rfl (Negative) GOMEZ/UL Urine RBC (0-2) /hpf Urine WBC (0-3) /hpf Ur Squamous Epith Cells (Few) /hpf Urine Bacteria /hpf Urine Casts POC Urine HCG, Qual (Negative) <Denise Hernandez, PERSONNEL RESEARCH PSYCHOLOGIST - Last Filed: 07/03/25 20:17> Lab Results 07/03/25 07/03/25 07/03/25 Range/Units 16:59 17:22 19:37 WBC 18.9 H (4.5-10.0) K/mm3 RBC 2.78 L (4.2-5.4) M/mm3 Hgb 7.3 L (12.0-15.0) g/dL Hct 25.2 L (37.0-47.0) % MCV 90.6 (80-100) fl MCH 26.3 (26-34) pg MCHC 29.0 L (32-36) g/dl RDW 18.6 H (11.5-14.5) % Plt Count 364 (150-375) k/mm3 MPV 10.7 H (7.4-10.4) fl Immature Gran % (Auto) 0.5 (0-0.5) % Neut % (Auto) 76.2 H (45.5-73.1) % Lymph % (Auto) 14.3 L (18.3-44.2) % [place] % (Auto) 4.3 (2.6-8.5) % Eos % (Auto) 4.3 (0-4.4) % Baso % (Auto) 0.4 (0.2-1.2) % Lymph # (Auto) 2.70 (0.9-3.2) K/mm3 [place] # (Auto) 0.8 H (0.1-0.6) K/mm3 Eos # (Auto) 0.8 H (0-0.3) K/mm3 Baso # (Auto) 0.1 (0.0-0.1) K/mm3 Abs Immat Gran (auto) 0.10 H (0.00-0.031) K/mm3 Absolute Neuts (auto) 14.4 H (1.3-6.7) K/mm3 Absolute Nucleated RBC 0.000 (0.0-0.012) K/mm3 Band Neutrophils % Not Reportable Nucleated RBC % 0.0 (0.0-0.2) % Platelet Estimate Adequate (Adequate) Hypochromasia 1+ Anisocytosis 1+ Schistocytes None seen PT 15.6 H (11.1-14.7) Seconds INR 1.3 APTT 32.7 (22.3-36.8) Seconds Sodium 140 (137-145) mmol/L Potassium 5.1 H (3.4-5.0) mmol/L Chloride 105 (98-107) mmol/L Carbon Dioxide 27 (22-30) mmol/L Anion Gap 8 (4-12) mmol/L BUN 105 H* D (7-17) mg/dL Creatinine 2.05 H (0.7-1.0) mg/dL Estim Creat Clear Calc 21 ml/min Estimated GFR 25 L (59 - ) Glucose 91 (65-110) mg/dL POC Capillary Glucose (65-105) mg/dl Lactic Acid 1.0 (0.7-2.0) mmol/L Calcium 8.1 L (8.4-10.2) mg/dL Iron (37-170) ug/dL TIBC (261-462) ug/dL % Saturation (20-50) % Ferritin (11.1-264) ng/mL Total Bilirubin 0.4 (0.2-1.3) mg/dL AST 24 (14-36) U/L ALT 16 (6-35) U/L Alkaline Phosphatase 174 H (38-126) U/L C-Reactive Protein 5.9 H (<1.0) mg/dL Total Protein 8.6 H (6.3-8.2) g/dL Albumin 3.3 L (3.5-5.1) g/dL Lipase 385 H (23-300) U/L Vitamin B12 (239-931) pg/mL Folate (2.76->20) ng/mL Urine Color Yellow (Yellow) Urine Appearance Clear (Clear) Urine pH 8.5 (5.0-9.0) Ur Specific [place] 1.018 (1.001-1.035) Urine Protein 2+ H (Negative) mg/dL Urine Glucose (UA) Negative (Negative) mg/dL Urine Ketones Negative (Negative) mg/dL Ur Blood (Man) 1+ H (Negative) Urine Nitrate Negative (Negative) Urine Bilirubin Negative (Negative) Urine Urobilinogen 0.2 (<2.0) mg/dL Leukocyte Esterase Rfl 2+ H (Negative) GOMEZ/UL Urine RBC 11-20 H (0-2) /hpf Urine WBC 51-100 H (0-3) /hpf Ur Squamous Epith Cells None seen (Few) /hpf Urine Bacteria None seen /hpf Urine Casts 0-2 POC Urine HCG, Qual (Negative) 07/03/25 07/04/25 07/04/25 Range/Units 19:39 02:54 05:47 WBC (4.5-10.0) K/mm3 RBC (4.2-5.4) M/mm3 Hgb (12.0-15.0) g/dL Hct (37.0-47.0) % MCV (80-100) fl MCH (26-34) pg MCHC (32-36) g/dl RDW (11.5-14.5) % Plt Count (150-375) k/mm3 MPV (7.4-10.4) fl Immature Gran % (Auto) (0-0.5) % Neut % (Auto) (45.5-73.1) % Lymph % (Auto) (18.3-44.2) % [place] % (Auto) (2.6-8.5) % Eos % (Auto) (0-4.4) % Baso % (Auto) (0.2-1.2) % Lymph # (Auto) (0.9-3.2) K/mm3 [place] # (Auto) (0.1-0.6) K/mm3 Eos # (Auto) (0-0.3) K/mm3 Baso # (Auto) (0.0-0.1) K/mm3 Abs Immat Gran (auto) (0.00-0.031) K/mm3 Absolute Neuts (auto) (1.3-6.7) K/mm3 Absolute Nucleated RBC (0.0-0.012) K/mm3 Band Neutrophils % Nucleated RBC % (0.0-0.2) % Platelet Estimate (Adequate) Hypochromasia Anisocytosis Schistocytes PT (11.1-14.7) Seconds INR APTT (22.3-36.8) Seconds Sodium (137-145) mmol/L Potassium (3.4-5.0) mmol/L Chloride (98-107) mmol/L Carbon Dioxide (22-30) mmol/L Anion Gap (4-12) mmol/L BUN (7-17) mg/dL Creatinine (0.7-1.0) mg/dL Estim Creat Clear Calc ml/min Estimated GFR (59 - ) Glucose (65-110) mg/dL POC Capillary Glucose 78 (65-105) mg/dl Lactic Acid (0.7-2.0) mmol/L Calcium (8.4-10.2) mg/dL Iron (37-170) ug/dL TIBC (261-462) ug/dL % Saturation (20-50) % Ferritin (11.1-264) ng/mL Total Bilirubin (0.2-1.3) mg/dL AST (14-36) U/L ALT (6-35) U/L Alkaline Phosphatase (38-126) U/L C-Reactive Protein 7.8 H (<1.0) mg/dL Total Protein (6.3-8.2) g/dL Albumin (3.5-5.1) g/dL Lipase (23-300) U/L Vitamin B12 741.0 (239-931) pg/mL Folate 8.4 (2.76->20) ng/mL Urine Color (Yellow) Urine Appearance (Clear) Urine pH (5.0-9.0) Ur Specific [place] (1.001-1.035) Urine Protein (Negative) mg/dL Urine Glucose (UA) (Negative) mg/dL Urine Ketones (Negative) mg/dL Ur Blood (Man) (Negative) Urine Nitrate (Negative) Urine Bilirubin (Negative) Urine Urobilinogen (<2.0) mg/dL Leukocyte Esterase Rfl (Negative) GOMEZ/UL Urine RBC (0-2) /hpf Urine WBC (0-3) /hpf Ur Squamous Epith Cells (Few) /hpf Urine Bacteria /hpf Urine Casts POC Urine HCG, Qual Negative (Negative) 07/04/25 Range/Units 05:51 WBC 11.3 H (4.5-10.0) K/mm3 RBC 2.53 L (4.2-5.4) M/mm3 Hgb 6.8 L* (12.0-15.0) g/dL Hct 23.4 L (37.0-47.0) % MCV 92.5 (80-100) fl MCH 26.9 (26-34) pg MCHC 29.1 L (32-36) g/dl RDW 17.8 H (11.5-14.5) % Plt Count 277 (150-375) k/mm3 MPV 11.1 H (7.4-10.4) fl Immature Gran % (Auto) 0.4 (0-0.5) % Neut % (Auto) 73.0 (45.5-73.1) % Lymph % (Auto) 15.8 L (18.3-44.2) % [place] % (Auto) 4.6 (2.6-8.5) % Eos % (Auto) 5.9 H (0-4.4) % Baso % (Auto) 0.3 (0.2-1.2) % Lymph # (Auto) 1.79 (0.9-3.2) K/mm3 [place] # (Auto) 0.5 (0.1-0.6) K/mm3 Eos # (Auto) 0.7 H (0-0.3) K/mm3 Baso # (Auto) 0.0 (0.0-0.1) K/mm3 Abs Immat Gran (auto) 0.04 H (0.00-0.031) K/mm3 Absolute Neuts (auto) 8.3 H (1.3-6.7) K/mm3 Absolute Nucleated RBC 0.000 (0.0-0.012) K/mm3 Band Neutrophils % Not Reportable Nucleated RBC % 0.0 (0.0-0.2) % Platelet Estimate Adequate (Adequate) Hypochromasia 1+ Anisocytosis Schistocytes None seen PT (11.1-14.7) Seconds INR APTT (22.3-36.8) Seconds Sodium 141 (137-145) mmol/L Potassium 4.7 (3.4-5.0) mmol/L Chloride 110 H (98-107) mmol/L Carbon Dioxide 23 (22-30) mmol/L Anion Gap 8 (4-12) mmol/L BUN 85 H D (7-17) mg/dL Creatinine 1.72 H (0.7-1.0) mg/dL Estim Creat Clear Calc 25 ml/min Estimated GFR 30 L (59 - ) Glucose 79 (65-110) mg/dL POC Capillary Glucose (65-105) mg/dl Lactic Acid (0.7-2.0) mmol/L Calcium 7.9 L (8.4-10.2) mg/dL Iron 28 L (37-170) ug/dL TIBC 189 L (261-462) ug/dL % Saturation 15 L (20-50) % Ferritin 703.00 H (11.1-264) ng/mL Total Bilirubin (0.2-1.3) mg/dL AST (14-36) U/L ALT (6-35) U/L Alkaline Phosphatase (38-126) U/L C-Reactive Protein (<1.0) mg/dL Total Protein (6.3-8.2) g/dL Albumin (3.5-5.1) g/dL Lipase (23-300) U/L Vitamin B12 (239-931) pg/mL Folate (2.76->20) ng/mL Urine Color (Yellow) Urine Appearance (Clear) Urine pH (5.0-9.0) Ur Specific [place] (1.001-1.035) Urine Protein (Negative) mg/dL Urine Glucose (UA) (Negative) mg/dL Urine Ketones (Negative) mg/dL Ur Blood (Man) (Negative) Urine Nitrate (Negative) Urine Bilirubin (Negative) Urine Urobilinogen (<2.0) mg/dL Leukocyte Esterase Rfl (Negative) GOMEZ/UL Urine RBC (0-2) /hpf Urine WBC (0-3) /hpf Ur Squamous Epith Cells (Few) /hpf Urine Bacteria /hpf Urine Casts POC Urine HCG, Qual (Negative) <Yuli Houston MD - Last Filed: 07/04/25 17:50> Imaging Data Attestation: I personally reviewed and interpreted this imaging study as follows: <Denise Hernandez APRN - Last Filed: 07/03/25 20:17> Radiologist's impression: Impressions Abdomen/Pelvis CT 07/03/25 18:41 IMPRESSION: 1. No acute abnormality. 2. Additional findings as above. 3. Chronic right basilar atelectasis and/or airspace disease. <Denise Hernandez APRN - Last Filed: 07/03/25 20:17> Critical Care Time Critical Care Time Critical Care Time: Yes <Arcelia Hussein PA-C - Last Filed: 07/06/25 17:30> Total Critical Care Time: 35 <Arcelia Hussein PA-C - Last Filed: 07/06/25 17:30> Discharge Plan Discharge Clinical Impression: Acute kidney injury, Contracture of muscles of both lower extremities, Multiple sclerosis, History of infection with vancomycin resistant Enterococcus (VRE) Sepsis Qualifiers: Sepsis type: sepsis due to unspecified organism Sepsis acute organ dysfunction status: without acute organ dysfunction Qualified Code(s): A41.9 - Sepsis, unspecified organism Decubitus ulcers Qualifiers: Pressure injury location: unspecified location Pressure injury stage: unspecified pressure injury stage Qualified Code(s): L89.90 - Pressure ulcer of unspecified site, unspecified stage Urinary tract infection Qualifiers: Urinary tract infection type: acute cystitis Hematuria presence: without hematuria Qualified Code(s): N30.00 - Acute cystitis without hematuria <Arcelia Hussein PA-C - Last Filed: 07/06/25 17:30> Patient Disposition: Still a Patient <LOREE Calix Last Filed: 07/06/25 17:30> Condition: Stable <LOREE Calix Last Filed: 07/06/25 17:30>
--- NOTE | 2025-07-03 16:40 | PC.NURSE ---
unable to obtain blood from patient. Cecily DYER aware. Mann ALEJANDRO to attempt to draw blood. phlebotomy called per GOMEZ.
[2025-07-03 17:05] LABS: Hematocrit 25.2 % (37.0-47.0); Hemoglobin 7.3 g/dL (12.0-15.0); Immature Granulocyte Percent A 0.5 % (0-0.5); Lymphocytes Absolute Auto 2.70 K/mm3 (0.9-3.2); Mean Corpuscular HGB Conc 29.0 g/dl (32-36); Mean Corpuscular Hemoglobin 26.3 pg (26-34); Mean Corpuscular Volume 90.6 fl (80-100); Nucleated Red Blood Cells Absolute Auto 0.000 K/mm3 (0.0-0.012); Nucleated Red Blood Cells Perc 0.0 % (0.0-0.2); Platelet Count Result 364 k/mm3 (150-375); Red Blood Count 2.78 M/mm3 (4.2-5.4); White Blood Count 18.9 K/mm3 (4.5-10.0)
[2025-07-03 17:14] LABS: Anisocytosis 1+; Hypochromasia 1+; Schistocytes None Seen
[2025-07-03] MEDS: SODIUM CHLORIDE 0.9% IV 1,000 ML 999 ML IV CONT (17:19)
[2025-07-03 17:22] LABS: Alanine Aminotransferase 16 U/L (6-35); Albumin Level 3.3 g/dL (3.5-5.1); Alkaline Phosphatase 174 U/L (38-126); Anion Gap 8 mmol/L (4-12); Aspartate Amino Transferase 24 U/L (14-36); Bilirubin,Total 0.4 mg/dL (0.2-1.3); Blood Urea Nitrogen 105 mg/dL (7-17); CRP 5.9 mg/dL (<1.0); Calcium 8.1 mg/dL (8.4-10.2); Carbon Dioxide 27 mmol/L (22-30); Chloride 105 mmol/L (98-107); Estimated CRCL calculation 21 ml/min; Estimated Glomerular Filt Rate 25; Glucose 91 mg/dL (65-110); Lipase 385 U/L (23-300); Potassium 5.1 mmol/L (3.4-5.0); Sodium 140 mmol/L (137-145); Total Protein 8.6 g/dL (6.3-8.2)
[2025-07-03 17:37] LABS: INR 1.3; Prothrombin Time 15.6 Seconds (11.1-14.7)
[2025-07-03 17:38] LABS: Partial Thromboplastin Time 32.7 Seconds (22.3-36.8)
[2025-07-03] MEDS: MEROPENEM 1 GM in SODIUM CHLORIDE 0.9% IV 100 ML 200 ML IVPB (18:52)
[2025-07-03] MEDS: LACTATED RINGERS 1,000 ML 999 ML IV CONT (18:53)
[2025-07-03] MEDS: HEPARIN SODIUM LOCK FLUSH 500 UNITS/5 ML SYRINGE (18:53)
[2025-07-03 19:41] LABS: BEDSIDEPREGUCG Negative (Negative)
[2025-07-03 19:47] LABS: Add Urine Microscopic? YES; Appearance Urine Clear (Clear); Glucose Urine UA Negative (Negative); Leukocyte Esterase Ur 2+ LEU/UL (Negative); Nitrate Urine Negative (Negative); Non Pathogenic Casts 0-2; Specific Grav Ur 1.018 (1.001-1.035)
[2025-07-03] MEDS: SODIUM CHLORIDE 0.9% IV 1,000 ML 125 ML IV CONT (20:31)
--- NOTE | 2025-07-03 22:32 | PM.IMHP ---
H&P: HPI History of Present Illness Date/Time: 07/03/25 22:32 Chief Complaint: Abdominal pain Narrative: This is a 60-year-old female patient with a history of debility with MS. She was sent here from [facility].The patient was recently discharged from this facility from 06/05/2025(for management of decubitus ulcers). Her white count is noted to be 18.9. Her H&H is 7.3 and 25.2. Her last H and H on 06/05/2025 was 8.3 and 27. Her potassium was found to be 5.1. Her BUN 105 and creatinine 2.05. Her GFR is 25. Her C reactive protein is 5.9. Urinalysis reveals a leukocyte esterase of 2+, rbc's 11-20, wbc's 51-100. The patient has had a past history of having Klebsiella pneumoniae and Providencia stuartii on 05/28/2025. The patient was started on ertapenem. The patient is being admitted to observation status on the date of service of 07/03/2025. Review of Systems Review of Systems: The patient is a very poor historian. She tells me that she still lives with her brother and sister however she is currently at the custodial. ROS unobtainable: Yes unobtainable due to mental status PMFSH Past Medical History Medical History (Updated 07/04/25 @ 02:32 by Mary Beth Johnson APRN) Multiple sclerosis Gastrointestinal tube in situ Chronic kidney disease, stage 3 Anorexia Malnutrition Pulmonary embolism (2014) Xanthogranulomatous pyelonephritis MRSA infection Urinary tract infection due to extended-spectrum beta lactamase (ESBL) producing Escherichia coli Chronic respiratory failure with hypoxia, on home oxygen therapy Previously documented that the patient is oxygen dependent on 4 L nasal cannula however she denies and is on room air with good SpO2 as of 07/27/2023. 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 History of nephrostomy Family History Family History Mother Family history of multiple sclerosis Hypertension Father Patient's father is Social History Social History (Updated 07/04/25 @ 02:15 by Mary Beth Johnson APRN) Social History: She resides at [facility]. Patient is a ramos of the [facility]. Her guardian is Abe Burnham ([phone]). Code status: Full code. Smoking packs per day: 0.5 Smoking cigarettes per day: 10.0 Years smoked: 1 Smoking pack-years: 0.50 Smoking status: Never smoker Second hand tobacco smoke exposure: No Alcohol intake: never Substance use: never Do You Feel Safe in your Home?: Yes Lack of Transportation: No Lack of Food: Never True Current Housing: I Have Housing Concerned About Future Housing: No Difficulty Paying Gas/Electric Bills: No Difficulty Paying for Meds: No Currently Unemployed: No Education: Don't Know Difficulty w/ Childcare or Family Care: No Living arrangements: custodial Additional living arrangements comments: 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ion: other Additional occupation/education comments: Disabled Spiritual care concerns: No Agree to blood products: Yes Meds Home Medications and Allergies Home Medications ?Medication ?Instructions ?Recorded ?Confirmed ?Type cholecalciferol (vitamin D3) 1,000 units G-tube DAILY 12/17/22 07/03/25 History famotidine 20 mg tablet 20 mg PO BID 12/17/22 07/03/25 History ondansetron 4 mg disintegrating 4 mg PO QID PRN Nausea And Vomiting 12/17/22 07/03/25 History tablet trazodone 50 mg tablet 50 mg PO HS 12/17/22 07/03/25 History sennosides 8.6 mg tablet (senna) 8.6 mg PO DAILY PRN Constipation 07/27/23 07/03/25 History thiamine HCl (vitamin B1) 100 mg 300 mg (3 x 100 mg) feeding tube 01/31/24 07/03/25 Rx tablet (Vitamin B-1) QAM #90 tabs citalopram 20 mg tablet 30 mg PO DAILY 06/20/24 07/03/25 History dextran 70-hypromellose eye drops 1 drp EACH EYE TID 06/20/24 07/03/25 History (Artificial Tears (dextran 70-hypromellose) eye drops) metoprolol tartrate 50 mg tablet 50 mg PO TID 06/20/24 07/03/25 History polyethylene glycol 3350 17 gram 17 g PO QAM #30 ea 07/17/24 07/03/25 Rx oral powder packet (Miralax) arginine 7 gram-glutamine 7 1 ea PO BID 01/13/25 07/03/25 History gram-calcium HMB 1.5 gram oral powder pack (Maged) bisacodyl 5 mg tablet,delayed 5 mg PO DAILY 01/13/25 07/03/25 History release ipratropium bromide 0.02 % 1.25 ml inhalation DAILY PRN 01/13/25 07/03/25 History solution for inhalation shortness of breath or wheezing dabigatran etexilate 150 mg capsule 150 mg PO BID 05/28/25 07/03/25 History Held on 06/05/25. Instructions: Resume on 06/26/25. Hold until suprapubic catheter is placed furosemide 20 mg tablet 20 mg feeding tube DAILY 05/28/25 07/03/25 History quetiapine 25 mg tablet 25 mg PO DAILY 05/28/25 07/03/25 History sodium bicarbonate 650 mg tablet 325 mg PO BID 05/28/25 07/03/25 History magnesium citrate (Citroma oral 296 ml PO DAILY PRN constipation 07/03/25 07/03/25 History solution) magnesium hydroxide 400 mg/5 mL 30 ml PO DAILY PRN constipation 07/03/25 07/03/25 History oral suspension (Milk of Magnesia) mqdkkwanzkbg-quly-volyo acid 1 tablet PO DAILY 07/03/25 07/03/25 History oxycodone 5 mg capsule 5 mg PO Q8H PRN pain 07/03/25 07/03/25 History pregabalin 75 mg capsule 75 mg PO DAILY 07/03/25 07/03/25 History sodium phosphates 133 ml RECTAL DAILY PRN 07/03/25 07/03/25 History constipation lactose-reduced food with fiber 1 ea feeding tube .continuous 07/04/25 07/04/25 History 0.06 gram-1.5 kcal/mL oral liquid (Jevity 1.5 Elmer) Allergies Allergy/AdvReac Type Severity Reaction Status Date / Time No Known Allergies Allergy Verified 07/03/25 17:22 Vital Signs Vital Signs - 24 hr 07/03/25 14:36 07/03/25 19:01 07/03/25 19:16 Temperature 97.7 F Pulse Rate 109 H 95 101 H Respiratory Rate 30 H 23 H 25 H Blood Pressure 92/67 L 106/72 96/68 L Pulse Oximetry 100 99 100 Oxygen Delivery Room Air 07/03/25 19:40 07/03/25 20:01 07/03/25 20:30 Temperature Pulse Rate 93 92 Respiratory Rate 16 14 15 Blood Pressure 112/71 112/71 Pulse Oximetry 99 100 98 Oxygen Delivery 07/03/25 20:46 07/03/25 21:31 07/03/25 22:24 Temperature Pulse Rate 94 93 93 Respiratory Rate 15 18 20 Blood Pressure 112/79 120/77 113/70 Pulse Oximetry 100 100 Oxygen Delivery Exam Const: General: cooperative, comfortable, no acute distress, well developed, awake, Physically active, ill appearing and well nourished Nutritional Appearance: average body habitus and well nourished Orientation/consciousness: oriented to person Other: Contracted arms and legs. HENMT: Head: normal to inspection, No palpable skull fracture present, normocephalic, atraumatic and abrasion Ears: hearing grossly normal bilaterally and external ears normal Eyes: General: appearance normal, both eyes and all related structures Alignment and Position: alignment normal Periorbital: periorbital findings normal Eyelids: eyelids normal Conjunctivae: conjunctivae normal Sclera: sclerae normal Cornea: corneas normal Pupils: Equal, round and reactive pupils present and Pupil accommodation reflex normal EOM: EOMs intact bilaterally Neck: Neck: normal visual inspection, full ROM, no lymphadenopathy and trachea midline Chest: Chest palpation & inspection: normal inspection of the chest Resp: Effort & Inspection: normal respiratory effort Auscultation: clear to auscultation bilaterally Percussion: percussion normal Cardio: Palpation: normal PMI Rate: regular rate Rhythm: regular rhythm Heart sounds: S1 normal heart sound present and S2 normal heart sound present Peripheral pulses: Peripheral pulses 2+ throughout GI: Inspection: normal to inspection Percussion: Yes normal to percussion Auscultation: normal bowel sounds Rectal Exam: deferred Back/Spine/Pelvis: Back: no CVA tenderness Cervical Spine: cervical ROM normal Skin: General skin exam: normal color Lesions: no lesions Rashes: no rashes Trauma: no lacerations or abrasions Wounds: no wounds Hair: normal Nails: normal Other: She has a dressing to her left foot and per records she has a sacral ulcer but I was not able to roll her over and looked at this time. Neuro: General: oriented to person Cranial nerves: Yes Normal hearing present Extrem: General: normal to inspection Right upper extremity: normal to inspection and shoulder/upper arm Left upper extremity: normal to inspection and shoulder/upper arm Right lower extremity: normal to inspection Left lower extremity: normal to inspection Psych: Appearance: grossly normal Mental Status: mental status grossly normal Speech and movement: Normal speech and movement present Affect: normal affect Attitude: cooperative Thought process: Normal thought process present Thought content: Yes Normal thought content present Insight: Poor insight present (Psych) Judgement: Poor judgement present (Psych) H&P: Results Labs Labs: Short CBC 07/03/25 Range/Units 16:59 WBC 18.9 H (4.5-10.0) K/mm3 Hgb 7.3 L (12.0-15.0) g/dL Hct 25.2 L (37.0-47.0) % Plt Count 364 (150-375) k/mm3 BMP 07/03/25 16:59 Sodium 140 Potassium 5.1 H Chloride 105 Carbon Dioxide 27 BUN 105 H* D Creatinine 2.05 H Glucose 91 Calcium 8.1 L Liver Function 07/03/25 Range/Units 16:59 Total Bilirubin 0.4 (0.2-1.3) mg/dL AST 24 (14-36) U/L ALT 16 (6-35) U/L Alkaline Phosphatase 174 H (38-126) U/L Albumin 3.3 L (3.5-5.1) g/dL Urine 07/03/25 Range/Units 19:37 Urine Color Yellow (Yellow) Urine Appearance Clear (Clear) Urine pH 8.5 (5.0-9.0) Ur Specific [place] 1.018 (1.001-1.035) Urine Protein 2+ H (Negative) mg/dL Urine Glucose (UA) Negative (Negative) mg/dL Imaging CT scan - abdomen: Radiologist's impression: Impressions Abdomen/Pelvis CT 07/03/25 18:41 IMPRESSION: 1. No acute abnormality. 2. Additional findings as above. 3. Chronic right basilar atelectasis and/or airspace disease. Chest X-Ray 07/03/25 20:35 IMPRESSION: 1. Chronic right basilar atelectasis and/or airspace disease. 2. Similar but less severe findings left lung. Assessment and Plan Assessment and plan (1) Urinary tract infection: Code(s): N39.0 - Urinary tract infection, site not specified Status: Acute Assessment and Plan: - Urinalysis reveals a leukocyte esterase of 2+, rbc's 11-20, wbc's 51-100. The patient has had a past history of having Klebsiella pneumoniae and Providencia stuartii on 05/28/2025. The Klebsiella was hand resistance everything except for ampicillin. The Providencia stuartii was resistant to ampicillin, nitrofurantoin and tetracycline. -patient was started on ertapenem pending blood in urine cultures -after reviewing the records it appears that patient was supposed to receive a suprapubic catheter however she had thrombocytopenia at the time and it was not placed. -her white count was noted to be 18.9. She is afebrile at this time. -she has some element of confusion which she has only orientated to person. The UTI may be the culprit. (2) RADHA (acute kidney injury): Code(s): N17.9 - Acute kidney failure, unspecified Status: Acute Assessment and Plan: -she has acute on chronic renal failure. -her BUN is 105 with a baseline somewhere between 33 and 45 -her creatinine is now 2.05 with her baseline somewhere around 1.22. -her estimated GFR is 25 with baseline around 4546. -avoid nephrotoxic medication. -continue with tube feedings and IV fluids for now. -renal ultrasound has been ordered. -if no improvement of renal function with fluids and tube feeding may consider consulting Nephrology. (3) Hyperkalemia: Code(s): E87.5 - Hyperkalemia Status: Acute Assessment and Plan: -patient's potassium is 5.1. -will recheck in the a.m.. -this could be related to her renal failure. -may consider Lokelma (4) Essential (primary) hypertension: Code(s): I10 - Essential (primary) hypertension Status: Acute Assessment and Plan: -her blood pressure is borderline at 113/71 -may continue with metoprolol if blood pressure allows. (5) Generalized anxiety disorder: Code(s): F41.1 - Generalized anxiety disorder Status: Acute (6) Schizoaffective disorder: Code(s): F25.9 - Schizoaffective disorder, unspecified Status: Acute (7) Multiple sclerosis: Code(s): G35 - Multiple sclerosis Status: Acute Assessment and Plan: -patient is contracted. -continue with Lyrica -continue with her home medication for pain management oxycodone. -the patient has multiple chronic sacral wounds and a wound to the left foot, wound care consult was placed as well. Quality VTE Prophylaxis VTE prophylaxis: pharmacologic ordered
--- NOTE | 2025-07-03 22:52 | ADMGEN ---
This patient, Yesenia Perez, was admitted to 3 [facility] Surg Room 316-02. Patient/family oriented to hospital policies and general routines including ID bracelet, bed and alarms, visiting hours, pain management, procedures, bathroom and other care routines, personal items, smoking policy, room service/diet, and visiting hours. Information on how to activate the Rapid Response Team has been discussed. Patient/Family are encouraged to report perceived risks to care and to ask questions if they do not understand what they are told or what they should do.
[2025-07-04] VITALS (10 sets, daily range): BP systolic 101–127; BP diastolic 72–87; PULSE 78–85; RESP 14–20; TEMP 35.9–37.1; O2SAT 100
--- NOTE | 2025-07-04 04:46 | WNDPHOTO ---
PHOTO ONLY - See Nursing Notes and/ or assessments for documentation.
--- NOTE | 2025-07-04 04:56 | WNDPHOTO ---
PHOTO ONLY - See Nursing Notes and/ or assessments for documentation.
--- NOTE | 2025-07-04 05:00 | WNDPHOTO ---
PHOTO ONLY - See Nursing Notes and/ or assessments for documentation.
--- NOTE | 2025-07-04 05:02 | WNDPHOTO ---
PHOTO ONLY - See Nursing Notes and/ or assessments for documentation.
--- NOTE | 2025-07-04 05:08 | WNDPHOTO ---
PHOTO ONLY - See Nursing Notes and/ or assessments for documentation.
--- NOTE | 2025-07-04 05:10 | WNDPHOTO ---
PHOTO ONLY - See Nursing Notes and/ or assessments for documentation.
[2025-07-04] MEDS: SODIUM CHLORIDE 0.9% IV 1,000 ML 125 ML IV CONT (05:34)
[2025-07-04 07:06] LABS: Anion Gap 8 mmol/L (4-12); Blood Urea Nitrogen 85 mg/dL (7-17); Calcium 7.9 mg/dL (8.4-10.2); Carbon Dioxide 23 mmol/L (22-30); Chloride 110 mmol/L (98-107); Estimated CRCL calculation 25 ml/min; Estimated Glomerular Filt Rate 30; Glucose 79 mg/dL (65-110); Potassium 4.7 mmol/L (3.4-5.0); Sodium 141 mmol/L (137-145)
--- NOTE | 2025-07-04 07:45 | P.PNIM_ITS ---
Progress Note: A&P Assessment and Plan (1) Urinary tract infection: Code(s): N39.0 - Urinary tract infection, site not specified Status: Acute Assessment and Plan: - UA with 2+ LE, WBC 51-100 - urine culture 05/28/25 with Klebsiella pneumoniae and Providencia stuartii both sensitive to cephalosporins - admit WBC 18, afebrile, no leukocytosis - leukocytosis improving - initially started on Merrem. Transition to Rocephin for now and await urine and blood cultures. (2) Pressure ulcers of skin of multiple topographic sites: Code(s): L89.90 - Pressure ulcer of unspecified site, unspecified stage Status: Chronic Assessment and Plan: - patient has multiple nonhealing wounds. Surgery followed on recent admit 05/2025. Patient underwent debridement of ischial wound during last hospitalization. - during last hospitalization, suprapubic catheter placement was discussed to aide in healing. Was delayed due to patient's coagulation profiles. Pradaxa has been on hold since that time and INR and PTT have improved. Continue to hold Pradaxa. May consider urology consultation pending surgery recs - general surgery consulted, appreciate recs (3) Anemia: Code(s): D64.9 - Anemia, unspecified Status: Acute Assessment and Plan: - acute on chronic normocytic anemia - baseline Hgb around 8. Hgb 7.3 on admission and downtrended to 6.8 this AM. - last admit this was due to bleeding from wounds. No current signs of bleeding. Check iron studies. - ordered 1 u PRBCs - trend CBC. Transfuse Hgb <7 (4) RADHA (acute kidney injury): Code(s): N17.9 - Acute kidney failure, unspecified Status: Acute Assessment and Plan: - admit Cr 2.05. Baseline 1.2. Started on IV fluids - Cr improved to 1.72 - avoid nephrotoxins (5) Essential (primary) hypertension: Code(s): I10 - Essential (primary) hypertension Status: Acute Assessment and Plan: - continue home metoprolol with hold parameters (6) Generalized anxiety disorder: Code(s): F41.1 - Generalized anxiety disorder Status: Acute Assessment and Plan: - continue home citalopram, trazodone (7) Schizoaffective disorder: Code(s): F25.9 - Schizoaffective disorder, unspecified Status: Acute Assessment and Plan: - continue home trazodone (8) Multiple sclerosis: Code(s): G35 - Multiple sclerosis Status: Acute Assessment and Plan: -patient is contracted. -continue Lyrica and oxycodone (9) Gastrointestinal tube in situ: Code(s): Z93.1 - Gastrostomy status Status: Acute Assessment and Plan: - PEG tube is clogged per nursing. Appears patient also eats by mouth, but attempting to obtain more info from nursing facility. General surgery is consulted. May need GI consult? (10) History of pulmonary embolism: Code(s): Z86.711 - Personal history of pulmonary embolism Status: Acute Assessment and Plan: - Pradaxa has been on hold since last admission, will continue to hold Plan DVT prophylaxis: SCDs due to anemia Code status: full code Dispo: back to [facility] Subjective Date/time seen: 07/04/25 07:45 Interval history: Patient seen and examined at bedside. Alert and oriented to self and month only. Appears to be her baseline per chart review. Attempting to get more info from patient's facility. Review of Systems Review of Systems: ROS unobtainable: Yes unobtainable due to mental status Exam Narrative: General: NAD, appears chronically debilitated Eyes: EOMI ENT: neck supple Cardiovascular: Regular rate and rhythm Respiratory: Clear to auscultation, respirations even and unlabored on RA Gastrointestinal: Soft, non tender Genitourinary: no suprapubic tenderness Musculoskeletal: No edema. Extremities contracted. Quadriplegic. Skin: warm, dry Neuro: Alert and oriented to self and month only. Psych: Mood appropriate Objective Data Vital Signs Vital Signs: Vital Signs - 24 hr 07/03/25 14:36 07/03/25 19:01 07/03/25 19:16 Temperature 97.7 F Pulse Rate 109 H 95 101 H Respiratory Rate 30 H 23 H 25 H Blood Pressure 92/67 L 106/72 96/68 L Pulse Oximetry 100 99 100 Oxygen Delivery Room Air 07/03/25 19:40 07/03/25 20:01 07/03/25 20:30 Temperature Pulse Rate 93 92 Respiratory Rate 16 14 15 Blood Pressure 112/71 112/71 Pulse Oximetry 99 100 98 Oxygen Delivery 07/03/25 20:46 07/03/25 21:31 07/03/25 22:24 Temperature Pulse Rate 94 93 93 Respiratory Rate 15 18 20 Blood Pressure 112/79 120/77 113/70 Pulse Oximetry 100 100 Oxygen Delivery 07/03/25 23:00 07/04/25 04:00 07/04/25 06:00 Temperature 97.3 F L Pulse Rate 95 85 Respiratory Rate 16 14 Blood Pressure 113/71 101/73 Pulse Oximetry 100 100 Oxygen Delivery Room Air Intake/Output Intake/Output: Intake & Output 07/01/25 07/02/25 07/03/25 07/04/25 23:59 23:59 23:59 23:59 Intake Total 2100 1000 Output Total 300 Balance 2100 700 Meds/Results Medications: Active Medications Generic Name Dose Route Start Last Admin Trade Name Freq PRN Reason Stop Dose Admin Albuterol 2.5 mg 07/04/25 01:48 Albuterol Sulfate Neb 2.5 Mg/3 Ml Inh INHALATION Q4HRT PRN Shortness Of Breath Artificial Tears 1 drop 07/04/25 09:00 Artificial Tears Ophth Soln 15 Ml Bottle EACH EYE TID [facility] Bisacodyl 5 mg 07/04/25 09:00 Bisacodyl 5 Mg Tablet Ec PO DAILY [facility] Famotidine 20 mg 07/04/25 09:00 Famotidine 20 Mg Tablet PO BID [facility] Heparin Sodium (Porcine) 5,000 units 07/04/25 09:00 Heparin Sodium 5,000 Units/Ml Vial SUB-Q Q12HR [facility] Sodium Chloride 1,000 mls @ 125 mls/hr 07/03/25 20:20 07/04/25 05:34 Normal Saline Iv IV CONT 125 mls/hr .Q8H [facility] Administration Meropenem 500 mg/ Sodium 100 mls @ 200 mls/hr 07/04/25 08:00 Chloride IVPB Q12H [facility] Metoprolol Tartrate 50 mg 07/04/25 09:00 Metoprolol Tartrate 50 Mg Tab PO Q12HR [facility] Oxycodone HCl 5 mg 07/04/25 01:42 Oxycodone Hcl (*Crx) 5 Mg Tab Ir PO Q8H PRN Pain Polyethylene Glycol 17 gm 07/04/25 09:00 Polyethylene Glycol 3350 17 Gm Powd.Pack PO QAM [facility] Pregabalin 75 mg 07/04/25 09:00 Pregabalin (*Crx) 75 Mg Capsule PO DAILY [facility] Quetiapine Fumarate 25 mg 07/04/25 09:00 Quetiapine Fumarate 25 Mg Tablet PO DAILY [facility] Senna 8.6 mg 07/04/25 01:42 Sennosides 8.6 Mg Tablet PO DAILY PRN Constipation Sodium Bicarbonate 325 mg 07/04/25 09:00 Sodium Bicarbonate Tab 325 Mg Tablet PO BID [facility] Thiamine HCl 300 mg 07/04/25 09:00 Thiamine Hcl 100 Mg Tablet FEED TUBE QAM [facility] Trazodone HCl 50 mg 07/04/25 21:00 Trazodone Hcl 50 Mg Tablet PO HS [facility] Radiology Results: ITS Impressions Abdomen/Pelvis CT 07/03/25 18:41 IMPRESSION: 1. No acute abnormality. 2. Additional findings as above. 3. Chronic right basilar atelectasis and/or airspace disease. Chest X-Ray 07/03/25 20:35 IMPRESSION: 1. Chronic right basilar atelectasis and/or airspace disease. 2. Similar but less severe findings left lung. Labs Labs: Laboratory Results - last 24 hr 07/03/25 07/03/25 07/03/25 16:59 17:22 19:37 WBC 18.9 H RBC 2.78 L Hgb 7.3 L Hct 25.2 L MCV 90.6 MCH 26.3 MCHC 29.0 L RDW 18.6 H Plt Count 364 MPV 10.7 H Immature Gran % (Auto) 0.5 Neut % (Auto) 76.2 H Lymph % (Auto) 14.3 L [place] % (Auto) 4.3 Eos % (Auto) 4.3 Baso % (Auto) 0.4 Lymph # (Auto) 2.70 [place] # (Auto) 0.8 H Eos # (Auto) 0.8 H Baso # (Auto) 0.1 Abs Immat Gran (auto) 0.10 H Absolute Neuts (auto) 14.4 H Absolute Nucleated RBC 0.000 Band Neutrophils % Not Reportable Nucleated RBC % 0.0 Platelet Estimate Adequate Hypochromasia 1+ Anisocytosis 1+ Schistocytes None seen PT 15.6 H INR 1.3 APTT 32.7 Sodium 140 Potassium 5.1 H Chloride 105 Carbon Dioxide 27 Anion Gap 8 BUN 105 H* D Creatinine 2.05 H Estim Creat Clear Calc 21 Estimated GFR 25 L Glucose 91 POC Capillary Glucose Lactic Acid 1.0 Calcium 8.1 L Total Bilirubin 0.4 AST 24 ALT 16 Alkaline Phosphatase 174 H C-Reactive Protein 5.9 H Total Protein 8.6 H Albumin 3.3 L Lipase 385 H Urine Color Yellow Urine Appearance Clear Urine pH 8.5 Ur Specific [place] 1.018 Urine Protein 2+ H Urine Glucose (UA) Negative Urine Ketones Negative Ur Blood (Man) 1+ H Urine Nitrate Negative Urine Bilirubin Negative Urine Urobilinogen 0.2 Leukocyte Esterase Rfl 2+ H Urine RBC 11-20 H Urine WBC 51-100 H Ur Squamous Epith Cells None seen Urine Bacteria None seen Urine Casts 0-2 POC Urine HCG, Qual 07/03/25 07/04/25 07/04/25 19:39 02:54 05:51 WBC RBC Hgb Hct MCV MCH MCHC RDW Plt Count MPV Immature Gran % (Auto) Neut % (Auto) Lymph % (Auto) [place] % (Auto) Eos % (Auto) Baso % (Auto) Lymph # (Auto) [place] # (Auto) Eos # (Auto) Baso # (Auto) Abs Immat Gran (auto) Absolute Neuts (auto) Absolute Nucleated RBC Band Neutrophils % Nucleated RBC % Platelet Estimate Hypochromasia Anisocytosis Schistocytes PT INR APTT Sodium 141 Potassium 4.7 Chloride 110 H Carbon Dioxide 23 Anion Gap 8 BUN 85 H D Creatinine 1.72 H Estim Creat Clear Calc 25 Estimated GFR 30 L Glucose 79 POC Capillary Glucose 78 Lactic Acid Calcium 7.9 L Total Bilirubin AST ALT Alkaline Phosphatase C-Reactive Protein Total Protein Albumin Lipase Urine Color Urine Appearance Urine pH Ur Specific [place] Urine Protein Urine Glucose (UA) Urine Ketones Ur Blood (Man) Urine Nitrate Urine Bilirubin Urine Urobilinogen Leukocyte Esterase Rfl Urine RBC Urine WBC Ur Squamous Epith Cells Urine Bacteria Urine Casts POC Urine HCG, Qual Negative Quality VTE Prophylaxis VTE prophylaxis: mechanical ordered
[2025-07-04 09:17] LABS: Hematocrit 23.4 % (37.0-47.0); Immature Granulocyte Percent A 0.4 % (0-0.5); Lymphocytes Absolute Auto 1.79 K/mm3 (0.9-3.2); Mean Corpuscular HGB Conc 29.1 g/dl (32-36); Mean Corpuscular Hemoglobin 26.9 pg (26-34); Mean Corpuscular Volume 92.5 fl (80-100); Nucleated Red Blood Cells Absolute Auto 0.000 K/mm3 (0.0-0.012); Nucleated Red Blood Cells Perc 0.0 % (0.0-0.2); Platelet Count Result 277 k/mm3 (150-375); Red Blood Count 2.53 M/mm3 (4.2-5.4); White Blood Count 11.3 K/mm3 (4.5-10.0)
[2025-07-04 09:55] LABS: Hemoglobin 6.8 g/dL (12.0-15.0)
[2025-07-04 09:56] LABS: Hypochromasia 1+; Schistocytes None Seen
[2025-07-04] MEDS: cefTRIAXone 1 GM in SODIUM CHLORIDE 0.9% IV 50 ML 100 ML IVPB (12:01)
[2025-07-04] MEDS: PREGABALIN (*CRX) 75 MG CAPSULE PO (12:13)
[2025-07-04] MEDS: BISACODYL 5 MG TABLET EC PO (12:14)
[2025-07-04] MEDS: FAMOTIDINE 20 MG TABLET PO ×2 (12:14→18:02)
[2025-07-04] MEDS: METOPROLOL TARTRATE 50 MG TAB PO ×2 (12:14→20:58)
[2025-07-04] MEDS: THIAMINE HCL 100 MG TABLET 300 MG FEED TUBE (12:14)
[2025-07-04] MEDS: SODIUM BICARBONATE TAB 325 MG TABLET PO ×2 (12:16→18:02)
[2025-07-04] MEDS: ARTIFICIAL TEARS OPHTH SOLN 15 ML BOTTLE 1 DROP EACH EYE ×2 (12:17→18:02)
[2025-07-04] MEDS: SODIUM CHLORIDE 0.9% IV 250 ML 30 ML IV CONT (13:29)
[2025-07-04] MEDS: CENTRAL LINE FLUSH 10 ML IV PUSH ×2 (15:00→21:02)
[2025-07-04 16:32] LABS: CRP 7.8 mg/dL (<1.0)
[2025-07-04 16:39] LABS: Iron 28 ug/dL (37-170)
[2025-07-04 16:49] LABS: Percent Iron Saturation 15 % (20-50)
[2025-07-04 17:16] LABS: Ferritin 703.00 ng/mL (11.1-264)
[2025-07-04 17:25] LABS: Hematocrit 28.4 % (37.0-47.0); Hemoglobin 8.7 g/dL (12.0-15.0)
[2025-07-04 17:40] LABS: Vitamin B12 741.0 pg/mL (239-931)
[2025-07-05 06:00] VITALS: BP 116/84; PULSE 79; RESP 14; TEMP 36.6; O2SAT 99
[2025-07-05] MEDS: CENTRAL LINE FLUSH 10 ML IV PUSH ×3 (06:52→21:05)
[2025-07-05 06:53] LABS: Hematocrit 28.9 % (37.0-47.0); Hemoglobin 8.6 g/dL (12.0-15.0); Immature Granulocyte Percent A 0.5 % (0-0.5); Lymphocytes Absolute Auto 1.26 K/mm3 (0.9-3.2); Mean Corpuscular HGB Conc 29.8 g/dl (32-36); Mean Corpuscular Hemoglobin 26.9 pg (26-34); Mean Corpuscular Volume 90.3 fl (80-100); Nucleated Red Blood Cells Absolute Auto 0.000 K/mm3 (0.0-0.012); Nucleated Red Blood Cells Perc 0.0 % (0.0-0.2); Platelet Count Result 253 k/mm3 (150-375); Red Blood Count 3.20 M/mm3 (4.2-5.4); White Blood Count 11.0 K/mm3 (4.5-10.0)
[2025-07-05 07:18] LABS: Alanine Aminotransferase 12 U/L (6-35); Albumin Level 3.0 g/dL (3.5-5.1); Alkaline Phosphatase 161 U/L (38-126); Anion Gap 7 mmol/L (4-12); Aspartate Amino Transferase 21 U/L (14-36); Bilirubin,Total 0.4 mg/dL (0.2-1.3); Blood Urea Nitrogen 67 mg/dL (7-17); Calcium 7.8 mg/dL (8.4-10.2); Carbon Dioxide 20 mmol/L (22-30); Chloride 112 mmol/L (98-107); Estimated CRCL calculation 28 ml/min; Estimated Glomerular Filt Rate 36; Glucose 93 mg/dL (65-110); Potassium 4.9 mmol/L (3.4-5.0); Sodium 139 mmol/L (137-145); Total Protein 7.7 g/dL (6.3-8.2)
[2025-07-05 07:30] LABS: Anisocytosis 1+; Hypochromasia 1+; Schistocytes None Seen
--- NOTE | 2025-07-05 07:37 | P.PNIM_ITS ---
Progress Note: A&P Assessment and Plan (1) Urinary tract infection: Code(s): N39.0 - Urinary tract infection, site not specified Status: Acute Assessment and Plan: - UA with 2+ LE, WBC 51-100 - urine culture 05/28/25 with Klebsiella pneumoniae and Providencia stuartii both sensitive to cephalosporins - admit WBC 18, afebrile, no leukocytosis - leukocytosis improving - initially started on Merrem. Transition to Rocephin for now and await urine and blood cultures. (2) Pressure ulcers of skin of multiple topographic sites: Code(s): L89.90 - Pressure ulcer of unspecified site, unspecified stage Status: Chronic Assessment and Plan: - patient has multiple nonhealing wounds. Surgery followed on recent admit 05/2025. Patient underwent debridement of ischial wound during last hospitalization. - during last hospitalization, suprapubic catheter placement was discussed to aide in healing. Was delayed due to patient's coagulation profiles. Pradaxa has been on hold since that time and INR and PTT have improved. Continue to hold Pradaxa. May consider urology consultation pending surgery recs - general surgery consulted, appreciate recs (3) Anemia: Code(s): D64.9 - Anemia, unspecified Status: Acute Assessment and Plan: - acute on chronic normocytic anemia - baseline Hgb around 8. Hgb 7.3 on admission and downtrended to 6.8 07/04 - last admit this was due to bleeding from wounds. No current signs of bleeding. - s/p 1 u PRBCs with improvement. Hgb now stable. - trend CBC. Transfuse Hgb <7 - iron studies consistent with iron deficiency. Start iron supplement. (4) RADHA (acute kidney injury): Code(s): N17.9 - Acute kidney failure, unspecified Status: Acute Assessment and Plan: - admit Cr 2.05. Baseline 1.2. Started on IV fluids - Cr improved to 1.5 - renal US with mild L hydronephrosis - bladder scan - avoid nephrotoxins (5) Essential (primary) hypertension: Code(s): I10 - Essential (primary) hypertension Status: Acute Assessment and Plan: - continue home metoprolol with hold parameters (6) Generalized anxiety disorder: Code(s): F41.1 - Generalized anxiety disorder Status: Acute Assessment and Plan: - continue home citalopram, trazodone (7) Schizoaffective disorder: Code(s): F25.9 - Schizoaffective disorder, unspecified Status: Acute Assessment and Plan: - continue home trazodone (8) Multiple sclerosis: Code(s): G35 - Multiple sclerosis Status: Acute Assessment and Plan: -patient is contracted. -continue Lyrica and oxycodone (9) Gastrointestinal tube in situ: Code(s): Z93.1 - Gastrostomy status Status: Acute Assessment and Plan: - GI replaced G tube 07/05 (10) History of pulmonary embolism: Code(s): Z86.711 - Personal history of pulmonary embolism Status: Acute Assessment and Plan: - Pradaxa has been on hold since last admission, will continue to hold in case need for suprapubic catheter placement Plan DVT prophylaxis: SCDs due to anemia Code status: full code Dispo: back to [facility] Subjective Date/time seen: 07/05/25 07:37 Interval history: Patient seen and examined at bedside with nursing. Noted multiple nonhealing wounds. G tube was replaced this AM by GI. Awaiting surgery recs. Review of Systems Review of Systems: All systems reviewed & are unremarkable except as noted in HPI and below Exam Narrative: General: NAD, appears chronically debilitated Eyes: EOMI ENT: neck supple Cardiovascular: Regular rate and rhythm Respiratory: Clear to auscultation, respirations even and unlabored on RA Gastrointestinal: Soft, non tender Genitourinary: no suprapubic tenderness Musculoskeletal: No edema. Extremities contracted. Quadriplegic. Skin: warm, dry. Multiple nonhealing wounds with some yellow drainage. Neuro: Alert and oriented to self and month only. Psych: Mood appropriate Objective Data Vital Signs Vital Signs: Vital Signs - 24 hr 07/04/25 08:00 07/04/25 12:14 07/04/25 13:29 Temperature 96.7 F L Pulse Rate 85 81 Respiratory Rate 18 Blood Pressure 127/76 Pulse Oximetry 100 Oxygen Delivery Room Air 07/04/25 13:44 07/04/25 14:00 07/04/25 14:44 Temperature 98.6 F 98.5 F 98.8 F Pulse Rate 78 85 80 Respiratory Rate 20 20 20 Blood Pressure 123/79 112/74 111/74 Pulse Oximetry 100 100 100 Oxygen Delivery 07/04/25 15:44 07/04/25 16:25 07/04/25 20:58 Temperature 98.5 F 98.5 F Pulse Rate 83 85 85 Respiratory Rate 20 20 Blood Pressure 111/72 112/74 Pulse Oximetry 100 100 Oxygen Delivery 07/04/25 20:58 07/04/25 22:00 07/05/25 06:00 Temperature 97.8 F 97.8 F Pulse Rate 80 79 Respiratory Rate 16 14 Blood Pressure 126/87 116/84 Pulse Oximetry 100 99 Oxygen Delivery Room Air Intake/Output Intake/Output: Intake & Output 07/02/25 07/03/25 07/04/25 07/05/25 23:59 23:59 23:59 23:59 Intake Total 2100 1590 250 Output Total 1000 325 Balance 2100 590 -75 Meds/Results Medications: Active Medications Generic Name Dose Route Start Last Admin Trade Name Freq PRN Reason Stop Dose Admin Albuterol 2.5 mg 07/04/25 01:48 Albuterol Sulfate Neb 2.5 Mg/3 Ml Inh INHALATION Q4HRT PRN Shortness Of Breath Artificial Tears 1 drop 07/04/25 09:00 07/04/25 18:02 Artificial Tears Ophth Soln 15 Ml Bottle EACH EYE 1 drop TID [facility] Administration Bisacodyl 5 mg 07/04/25 09:00 07/04/25 12:14 Bisacodyl 5 Mg Tablet Ec PO 5 mg DAILY [facility] Administration Famotidine 20 mg 07/04/25 09:00 07/04/25 18:02 Famotidine 20 Mg Tablet PO 20 mg BID [facility] Administration Heparin Sodium (Beef Lung) 50 units 07/04/25 09:00 07/04/25 12:16 Heparin Flush 50 Units/5 Ml Syringe IV PUSH Not Given QAM [facility] Heparin Sodium (Beef Lung) 50 units 07/04/25 08:38 Heparin Flush 50 Units/5 Ml Syringe IV PUSH PRN PRN after intermittent infusion Heparin Sodium (Beef Lung) 50 units 07/04/25 08:38 Heparin Flush 50 Units/5 Ml Syringe IV PUSH PRN PRN after blood draws Heparin Sodium (Porcine) 5,000 units 07/04/25 09:00 07/04/25 12:17 Heparin Sodium 5,000 Units/Ml Vial SUB-Q Not Given On Hold: 07/04/25 10:50 Q12HR [facility] Heparin Sodium (Porcine) 500 units 07/04/25 08:38 Heparin Sodium Lock Flush 500 Units/5 Ml Syringe IV PUSH PRN PRN see comments below Ceftriaxone Sodium 1 gm/ 50 mls @ 100 mls/hr 07/04/25 09:00 07/04/25 12:01 Sodium Chloride IVPB 100 mls/hr Q24H [facility] Administration Metoprolol Tartrate 50 mg 07/04/25 09:00 07/04/25 20:58 Metoprolol Tartrate 50 Mg Tab PO 50 mg Q12HR [facility] Administration Oxycodone HCl 5 mg 07/04/25 01:42 Oxycodone Hcl (*Crx) 5 Mg Tab Ir PO Q8H PRN Pain Polyethylene Glycol 17 gm 07/04/25 09:00 07/04/25 13:38 Polyethylene Glycol 3350 17 Gm Powd.Pack PO Not Given QAM [facility] Pregabalin 75 mg 07/04/25 09:00 07/04/25 12:13 Pregabalin (*Crx) 75 Mg Capsule PO 75 mg DAILY [facility] Administration Quetiapine Fumarate 25 mg 07/04/25 09:00 07/04/25 12:02 Quetiapine Fumarate 25 Mg Tablet PO 25 mg DAILY [facility] Administration Senna 8.6 mg 07/04/25 01:42 Sennosides 8.6 Mg Tablet PO DAILY PRN Constipation Sodium Bicarbonate 325 mg 07/04/25 09:00 07/04/25 18:02 Sodium Bicarbonate Tab 325 Mg Tablet PO 325 mg BID [facility]N Administration Sodium Chloride 10 ml 07/04/25 14:00 07/05/25 06:52 Central Line Flush IV PUSH 10 ml Q8HR [facility]N Administration Thiamine HCl 300 mg 07/04/25 09:00 07/04/25 12:14 Thiamine Hcl 100 Mg Tablet FEED TUBE 300 mg QAM [facility] Administration Trazodone HCl 50 mg 07/04/25 21:00 07/04/25 20:58 Trazodone Hcl 50 Mg Tablet PO 50 mg HS [facility]N Administration Radiology Results: ITS Impressions Abdomen/Pelvis CT 07/03/25 18:41 IMPRESSION: 1. No acute abnormality. 2. Additional findings as above. 3. Chronic right basilar atelectasis and/or airspace disease. Chest X-Ray 07/03/25 20:35 IMPRESSION: 1. Chronic right basilar atelectasis and/or airspace disease. 2. Similar but less severe findings left lung. Renal Ultrasound 07/04/25 14:59 Impression: Mild left hydronephrosis Labs Labs: Laboratory Results - last 24 hr 07/04/25 07/04/25 07/04/25 05:47 05:51 10:43 WBC 11.3 H RBC 2.53 L Hgb 6.8 L* Hct 23.4 L MCV 92.5 MCH 26.9 MCHC 29.1 L RDW 17.8 H Plt Count 277 MPV 11.1 H Immature Gran % (Auto) 0.4 Neut % (Auto) 73.0 Lymph % (Auto) 15.8 L [place] % (Auto) 4.6 Eos % (Auto) 5.9 H Baso % (Auto) 0.3 Lymph # (Auto) 1.79 [place] # (Auto) 0.5 Eos # (Auto) 0.7 H Baso # (Auto) 0.0 Abs Immat Gran (auto) 0.04 H Absolute Neuts (auto) 8.3 H Absolute Nucleated RBC 0.000 Band Neutrophils % Not Reportable Nucleated RBC % 0.0 Platelet Estimate Adequate Hypochromasia 1+ Anisocytosis Schistocytes None seen Sodium Potassium Chloride Carbon Dioxide Anion Gap BUN Creatinine Estim Creat Clear Calc Estimated GFR Glucose POC Capillary Glucose Calcium Iron 28 L TIBC 189 L % Saturation 15 L Ferritin 703.00 H Total Bilirubin AST ALT Alkaline Phosphatase C-Reactive Protein 7.8 H Total Protein Albumin Vitamin B12 741.0 Folate 8.4 Blood Type O Positive Antibody Screen Negative Crossmatch See Detail 07/04/25 07/04/25 07/04/25 11:22 16:33 17:21 WBC RBC Hgb 8.7 L Hct 28.4 L MCV MCH MCHC RDW Plt Count MPV Immature Gran % (Auto) Neut % (Auto) Lymph % (Auto) [place] % (Auto) Eos % (Auto) Baso % (Auto) Lymph # (Auto) [place] # (Auto) Eos # (Auto) Baso # (Auto) Abs Immat Gran (auto) Absolute Neuts (auto) Absolute Nucleated RBC Band Neutrophils % Nucleated RBC % Platelet Estimate Hypochromasia Anisocytosis Schistocytes Sodium Potassium Chloride Carbon Dioxide Anion Gap BUN Creatinine Estim Creat Clear Calc Estimated GFR Glucose POC Capillary Glucose 82 91 Calcium Iron TIBC % Saturation Ferritin Total Bilirubin AST ALT Alkaline Phosphatase C-Reactive Protein Total Protein Albumin Vitamin B12 Folate Blood Type Antibody Screen Crossmatch 07/04/25 07/05/25 07/05/25 21:31 00:18 05:56 WBC RBC Hgb Hct MCV MCH MCHC RDW Plt Count MPV Immature Gran % (Auto) Neut % (Auto) Lymph % (Auto) [place] % (Auto) Eos % (Auto) Baso % (Auto) Lymph # (Auto) [place] # (Auto) Eos # (Auto) Baso # (Auto) Abs Immat Gran (auto) Absolute Neuts (auto) Absolute Nucleated RBC Band Neutrophils % Nucleated RBC % Platelet Estimate Hypochromasia Anisocytosis Schistocytes Sodium Potassium Chloride Carbon Dioxide Anion Gap BUN Creatinine Estim Creat Clear Calc Estimated GFR Glucose POC Capillary Glucose 82 75 94 Calcium Iron TIBC % Saturation Ferritin Total Bilirubin AST ALT Alkaline Phosphatase C-Reactive Protein Total Protein Albumin Vitamin B12 Folate Blood Type Antibody Screen Crossmatch 07/05/25 06:20 WBC 11.0 H RBC 3.20 L Hgb 8.6 L Hct 28.9 L MCV 90.3 MCH 26.9 MCHC 29.8 L RDW 17.2 H Plt Count 253 MPV 11.0 H Immature Gran % (Auto) 0.5 Neut % (Auto) 77.8 H Lymph % (Auto) 11.5 L [place] % (Auto) 5.2 Eos % (Auto) 4.6 H Baso % (Auto) 0.4 Lymph # (Auto) 1.26 [place] # (Auto) 0.6 Eos # (Auto) 0.5 H Baso # (Auto) 0.0 Abs Immat Gran (auto) 0.05 H Absolute Neuts (auto) 8.5 H Absolute Nucleated RBC 0.000 Band Neutrophils % Not Reportable Nucleated RBC % 0.0 Platelet Estimate Adequate Hypochromasia 1+ Anisocytosis 1+ Schistocytes None seen Sodium 139 Potassium 4.9 Chloride 112 H Carbon Dioxide 20 L Anion Gap 7 BUN 67 H D Creatinine 1.50 H Estim Creat Clear Calc 28 Estimated GFR 36 L Glucose 93 POC Capillary Glucose Calcium 7.8 L Iron TIBC % Saturation Ferritin Total Bilirubin 0.4 AST 21 ALT 12 Alkaline Phosphatase 161 H C-Reactive Protein Total Protein 7.7 Albumin 3.0 L Vitamin B12 Folate Blood Type Antibody Screen Crossmatch Quality VTE Prophylaxis VTE prophylaxis: mechanical ordered
--- NOTE | 2025-07-05 09:26 | WPDGICN ---
Assessment and Plan Assessment and plan (1) Malfunction of gastrostomy tube: Code(s): K94.23 - Gastrostomy malfunction Status: Acute Assessment and Plan: the gastrostomy tube was replaced at the bedside with no complications. An 18 F gastrostomy replacement tube was placed and the balloon was insufflated with 20 cc of sterile water. Plan - Will sign off for now, please feel free to call us with any other issues related to our specialty. GI Consult Note Consult date/time: 07/05/25 09:26 Reason for consult: Peg malfunction HPI: Yesenia Perez is a 60 year old female admitted on 07/03/2025 for a urinary tract infection. Patient has an underlying diagnosis of multiple sclerosis, and despite being able to have some oral intake, she depends on a gastrostomy tube for more adequate nutrition. The reason for consultation is the fact that the feeding tube was clogged yesterday, although this morning the nursing staff was able to unclog it partially. Review of Systems Review of Systems: All systems reviewed & are unremarkable except as noted in HPI and below PMFSH Past Medical History Medical History (Updated 07/05/25 @ 09:29 by Tonio Del Real MD) Multiple sclerosis Gastrointestinal tube in situ Chronic kidney disease, stage 3 Anorexia Malnutrition Pulmonary embolism (2015) Xanthogranulomatous pyelonephritis MRSA infection Urinary tract infection due to extended-spectrum beta lactamase (ESBL) producing Escherichia coli Chronic respiratory failure with hypoxia, on home oxygen therapy Previously documented that the patient is oxygen dependent on 4 L nasal cannula however she denies and is on room air with good SpO2 as of 07/27/2023. 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 History of nephrostomy Family History Family History Mother Family history of multiple sclerosis Hypertension Father Patient's father is Social History Social History (Updated 07/04/25 @ 02:15 by Mary Beth Johnson APRN) Social History: She resides at [facility]. Patient is a ramos of the counts include 234 beds at the [facility]. Her guardian is Abe Burnham ([phone]). Code status: Full code. Smoking packs per day: 0.5 Smoking cigarettes per day: 10.0 Years smoked: 1 Smoking pack-years: 0.50 Smoking status: Never smoker Second hand tobacco smoke exposure: No Alcohol intake: never Substance use: never Do You Feel Safe in your Home?: Yes Lack of Transportation: No Lack of Food: Never True Current Housing: I Have Housing Concerned About Future Housing: No Difficulty Paying Gas/Electric Bills: No Difficulty Paying for Meds: No Currently Unemployed: No Education: Don't Know Difficulty w/ Childcare or Family Care: No Living arrangements: residential Additional living arrangements comments: 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ion: other Additional occupation/education comments: Disabled Spiritual care concerns: No Agree to blood products: Yes Meds Home Medications and Allergies Home Medications ?Medication ?Instructions ?Recorded ?Confirmed ?Type cholecalciferol (vitamin D3) 1,000 units G-tube DAILY 12/17/22 07/03/25 History famotidine 20 mg tablet 20 mg PO BID 12/17/22 07/03/25 History ondansetron 4 mg disintegrating 4 mg PO QID PRN Nausea And Vomiting 12/17/22 07/03/25 History tablet trazodone 50 mg tablet 50 mg PO HS 12/17/22 07/03/25 History sennosides 8.6 mg tablet (senna) 8.6 mg PO DAILY PRN Constipation 07/27/23 07/03/25 History thiamine HCl (vitamin B1) 100 mg 300 mg (3 x 100 mg) feeding tube 01/31/24 07/03/25 Rx tablet (Vitamin B-1) QAM #90 tabs citalopram 20 mg tablet 30 mg PO DAILY 06/20/24 07/03/25 History dextran 70-hypromellose eye drops 1 drp EACH EYE TID 06/20/24 07/03/25 History (Artificial Tears (dextran 70-hypromellose) eye drops) metoprolol tartrate 50 mg tablet 50 mg PO TID 06/20/24 07/03/25 History polyethylene glycol 3350 17 gram 17 g PO QAM #30 ea 07/17/24 07/03/25 Rx oral powder packet (Miralax) arginine 7 gram-glutamine 7 1 ea PO BID 01/13/25 07/03/25 History gram-calcium HMB 1.5 gram oral powder pack (Maged) bisacodyl 5 mg tablet,delayed 5 mg PO DAILY 01/13/25 07/03/25 History release ipratropium bromide 0.02 % 1.25 ml inhalation DAILY PRN 01/13/25 07/03/25 History solution for inhalation shortness of breath or wheezing dabigatran etexilate 150 mg capsule 150 mg PO BID 05/28/25 07/03/25 History Held on 06/05/25. Instructions: Resume on 06/26/25. Hold until suprapubic catheter is placed furosemide 20 mg tablet 20 mg feeding tube DAILY 05/28/25 07/03/25 History quetiapine 25 mg tablet 25 mg PO DAILY 05/28/25 07/03/25 History sodium bicarbonate 650 mg tablet 325 mg PO BID 05/28/25 07/03/25 History magnesium citrate (Citroma oral 296 ml PO DAILY PRN constipation 07/03/25 07/03/25 History solution) magnesium hydroxide 400 mg/5 mL 30 ml PO DAILY PRN constipation 07/03/25 07/03/25 History oral suspension (Milk of Magnesia) goqfahkkegnt-jjue-obvoc acid 1 tablet PO DAILY 07/03/25 07/03/25 History oxycodone 5 mg capsule 5 mg PO Q8H PRN pain 07/03/25 07/03/25 History pregabalin 75 mg capsule 75 mg PO DAILY 07/03/25 07/03/25 History sodium phosphates 133 ml RECTAL DAILY PRN 07/03/25 07/03/25 History constipation lactose-reduced food with fiber 1 ea feeding tube .continuous 07/04/25 07/04/25 History 0.06 gram-1.5 kcal/mL oral liquid (Jevity 1.5 Elmer) Allergies Allergy/AdvReac Type Severity Reaction Status Date / Time No Known Allergies Allergy Verified 07/03/25 17:22 Vital Signs Vital Signs - 24 hr 07/04/25 12:14 07/04/25 13:29 07/04/25 13:44 Temperature 96.7 F L 98.6 F Pulse Rate 85 81 78 Respiratory Rate 18 20 Blood Pressure 127/76 123/79 Pulse Oximetry 100 100 Oxygen Delivery 07/04/25 14:00 07/04/25 14:44 07/04/25 15:44 Temperature 98.5 F 98.8 F 98.5 F Pulse Rate 85 80 83 Respiratory Rate 20 20 20 Blood Pressure 112/74 111/74 111/72 Pulse Oximetry 100 100 100 Oxygen Delivery 07/04/25 16:25 07/04/25 20:58 07/04/25 20:58 Temperature 98.5 F Pulse Rate 85 85 Respiratory Rate 20 Blood Pressure 112/74 Pulse Oximetry 100 Oxygen Delivery Room Air 07/04/25 22:00 07/05/25 06:00 Temperature 97.8 F 97.8 F Pulse Rate 80 79 Respiratory Rate 16 14 Blood Pressure 126/87 116/84 Pulse Oximetry 100 99 Oxygen Delivery Exam Narrative: The patient is chronically ill, alert and oriented x3. Multiple extremity contractures. The gastrostomy tube has a black discoloration and looks old and deteriorated. Results Labs 07/05/25 06:20 07/05/25 06:20 Labs: Short CBC 07/04/25 07/04/25 07/05/25 Range/Units 05:51 17:21 06:20 WBC 11.3 H 11.0 H (4.5-10.0) K/mm3 Hgb 6.8 L* 8.7 L 8.6 L (12.0-15.0) g/dL Hct 23.4 L 28.4 L 28.9 L (37.0-47.0) % Plt Count 277 253 (150-375) k/mm3 BMP 07/05/25 06:20 Sodium 139 Potassium 4.9 Chloride 112 H Carbon Dioxide 20 L BUN 67 H D Creatinine 1.50 H Glucose 93 Calcium 7.8 L Liver Function 07/05/25 Range/Units 06:20 Total Bilirubin 0.4 (0.2-1.3) mg/dL AST 21 (14-36) U/L ALT 12 (6-35) U/L Alkaline Phosphatase 161 H (38-126) U/L Albumin 3.0 L (3.5-5.1) g/dL
[2025-07-05] MEDS: SENNOSIDES 8.6 MG TABLET PO (09:32)
[2025-07-05] MEDS: cefTRIAXone 1 GM in SODIUM CHLORIDE 0.9% IV 50 ML 100 ML IVPB (09:33)
[2025-07-05] MEDS: oxyCODONE HCL (*CRX) 5 MG TAB IR PO (09:33)
[2025-07-05] MEDS: THIAMINE HCL 100 MG TABLET 300 MG FEED TUBE (09:33)
[2025-07-05 09:35] VITALS: PULSE 79
[2025-07-05] MEDS: METOPROLOL TARTRATE 50 MG TAB PO ×2 (09:35→20:54)
[2025-07-05] MEDS: SODIUM BICARBONATE TAB 325 MG TABLET PO ×2 (09:35→16:47)
[2025-07-05] MEDS: PREGABALIN (*CRX) 75 MG CAPSULE PO (09:35)
[2025-07-05] MEDS: FAMOTIDINE 20 MG TABLET PO ×2 (09:35→16:47)
[2025-07-05] MEDS: FERROUS SULFATE 325 MG TABLET PO (09:35)
[2025-07-05] MEDS: BISACODYL 5 MG TABLET EC PO (09:36)
[2025-07-05] MEDS: WATER FOR IRRIGATION, STERILE 1,000 ML BOTTLE 1000 ML (10:03)
[2025-07-05] MEDS: ARTIFICIAL TEARS OPHTH SOLN 15 ML BOTTLE 1 DROP EACH EYE ×3 (10:10→16:48)
[2025-07-05 14:00] VITALS: BP 121/82; PULSE 84; RESP 18; TEMP 36.1; O2SAT 99
--- NOTE | 2025-07-05 14:17 | WPDCN ---
Assessment and Plan Assessment and plan (1) Pressure ulcers of skin of multiple topographic sites: Code(s): L89.90 - Pressure ulcer of unspecified site, unspecified stage Status: Chronic Assessment and Plan: Patient is an unfortunate individual who has multiple sclerosis and has contractures the lower extremities. She is fed with a PEG tube. She is incontinent of the urine and stool. She has large pressure ulcers on her sacrum as well as her feet. For the lower extremity ulcers they will continue to have pressure on the not heal given her contractures and care that she has been given at the nursing homes. Best option for her lower extremities wounds may be amputation. Level amputation above the knee might be best given that she is bed ridden. The sacral decubitus wounds will not heal given that she is incontinent of stool and urine. She may need a suprapubic catheter and a diverting colostomy if there is any hope to getting her sacral wounds to heal. My understanding is that she is a ramos of the [facility] and would have to discuss any surgical procedures with her [facility] appointed guardian. Continue present management. The clogged PEG tube was addressed by GI and that problem has been solved. We will get the wound care nurses to help with management of the wounds for right now. HPI Data of Consult Date/Time: 07/05/25 14:17 Requesting Physician: Beto Chairez MD Primary Care Provider: Luis Eduardo QuirogaMD Consult Narrative Reason for consult: Chronic decubitus wounds on sacrum, back, and feet. Narrative: Yesenia Perez is a 60 year old female who has multiple sclerosis and has contractures of her lower extremities. She is very debilitated and resides in a [facility]. She is a ramos of the [facility]. She was readmitted to the hospital with worsening wounds and PEG tube that was malfunctioning. Review of Systems Review of Systems: The remainder of the review of systems to include constitutional, HEENT, cardiovascular, respiratory, GI, , integumentary, musculoskeletal, endocrine, immunologic, hematologic, psychiatric, and neurologic are all negative except for which is mentioned above in the HPI. COUNT INCLUDES THE [facility] Past Medical History Medical History Multiple sclerosis Gastrointestinal tube in situ Chronic kidney disease, stage 3 Anorexia Malnutrition Pulmonary embolism (2015) Xanthogranulomatous pyelonephritis MRSA infection Urinary tract infection due to extended-spectrum beta lactamase (ESBL) producing Escherichia coli Chronic respiratory failure with hypoxia, on home oxygen therapy Previously documented that the patient is oxygen dependent on 4 L nasal cannula however she denies and is on room air with good SpO2 as of 07/27/2023. 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 History of nephrostomy Family History Family History Mother Family history of multiple sclerosis Hypertension Father Patient's father is Social History Social History Social History: She resides at [facility]. Patient is a ramos of the [facility]. Her guardian is Abe Burnham ([phone]). Code status: Full code. Smoking packs per day: 0.5 Smoking cigarettes per day: 10.0 Years smoked: 1 Smoking pack-years: 0.50 Smoking status: Never smoker Second hand tobacco smoke exposure: No Alcohol intake: never Substance use: never Do You Feel Safe in your Home?: Yes Lack of Transportation: No Lack of Food: Never True Current Housing: I Have Housing Concerned About Future Housing: No Difficulty Paying Gas/Electric Bills: No Difficulty Paying for Meds: No Currently Unemployed: No Education: Don't Know Difficulty w/ Childcare or Family Care: No Living arrangements: fdc Additional living arrangements comments: 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ion: other Additional occupation/education comments: Disabled Spiritual care concerns: No Agree to blood products: Yes Meds Home Medications and Allergies Home Medications ?Medication ?Instructions ?Recorded ?Confirmed ?Type cholecalciferol (vitamin D3) 1,000 units G-tube DAILY 12/17/22 07/03/25 History famotidine 20 mg tablet 20 mg PO BID 12/17/22 07/03/25 History ondansetron 4 mg disintegrating 4 mg PO QID PRN Nausea And Vomiting 12/17/22 07/03/25 History tablet trazodone 50 mg tablet 50 mg PO HS 12/17/22 07/03/25 History sennosides 8.6 mg tablet (senna) 8.6 mg PO DAILY PRN Constipation 07/27/23 07/03/25 History thiamine HCl (vitamin B1) 100 mg 300 mg (3 x 100 mg) feeding tube 01/31/24 07/03/25 Rx tablet (Vitamin B-1) QAM #90 tabs citalopram 20 mg tablet 30 mg PO DAILY 06/20/24 07/03/25 History dextran 70-hypromellose eye drops 1 drp EACH EYE TID 06/20/24 07/03/25 History (Artificial Tears (dextran 70-hypromellose) eye drops) metoprolol tartrate 50 mg tablet 50 mg PO TID 06/20/24 07/03/25 History polyethylene glycol 3350 17 gram 17 g PO QAM #30 ea 07/17/24 07/03/25 Rx oral powder packet (Miralax) arginine 7 gram-glutamine 7 1 ea PO BID 01/13/25 07/03/25 History gram-calcium HMB 1.5 gram oral powder pack (Maged) bisacodyl 5 mg tablet,delayed 5 mg PO DAILY 01/13/25 07/03/25 History release ipratropium bromide 0.02 % 1.25 ml inhalation DAILY PRN 01/13/25 07/03/25 History solution for inhalation shortness of breath or wheezing dabigatran etexilate 150 mg capsule 150 mg PO BID 05/28/25 07/03/25 History Held on 06/05/25. Instructions: Resume on 06/26/25. Hold until suprapubic catheter is placed furosemide 20 mg tablet 20 mg feeding tube DAILY 05/28/25 07/03/25 History quetiapine 25 mg tablet 25 mg PO DAILY 05/28/25 07/03/25 History sodium bicarbonate 650 mg tablet 325 mg PO BID 05/28/25 07/03/25 History magnesium citrate (Citroma oral 296 ml PO DAILY PRN constipation 07/03/25 07/03/25 History solution) magnesium hydroxide 400 mg/5 mL 30 ml PO DAILY PRN constipation 07/03/25 07/03/25 History oral suspension (Milk of Magnesia) ualmdwigwbnr-rbdk-aarnk acid 1 tablet PO DAILY 07/03/25 07/03/25 History oxycodone 5 mg capsule 5 mg PO Q8H PRN pain 07/03/25 07/03/25 History pregabalin 75 mg capsule 75 mg PO DAILY 07/03/25 07/03/25 History sodium phosphates 133 ml RECTAL DAILY PRN 07/03/25 07/03/25 History constipation lactose-reduced food with fiber 1 ea feeding tube .continuous 07/04/25 07/04/25 History 0.06 gram-1.5 kcal/mL oral liquid (Jevity 1.5 Elmer) Allergies Allergy/AdvReac Type Severity Reaction Status Date / Time No Known Allergies Allergy Verified 07/03/25 17:22 Vital Signs Vital Signs - 24 hr 07/04/25 14:44 07/04/25 15:44 07/04/25 16:25 Temperature 37.1 C 36.9 C 36.9 C Pulse Rate 80 83 85 Respiratory Rate 20 20 20 Blood Pressure 111/74 111/72 112/74 Pulse Oximetry 100 100 100 Oxygen Delivery 07/04/25 20:58 07/04/25 20:58 07/04/25 22:00 Temperature 36.6 C Pulse Rate 85 80 Respiratory Rate 16 Blood Pressure 126/87 Pulse Oximetry 100 Oxygen Delivery Room Air 07/05/25 06:00 07/05/25 08:00 07/05/25 09:35 Temperature 36.6 C Pulse Rate 79 79 Respiratory Rate 14 Blood Pressure 116/84 Pulse Oximetry 99 Oxygen Delivery Room Air Exam Const: General: uncomfortable GI: Other: Abdomen is soft and nondistended. Peg tube is in place. Dressing dry. Skin: Other: Patient has large sacral decubitus wound with fibrinous exudate. She has a large heel pressure wound on the left foot a large pressure wound on the medial malleolus of the left foot and ankle region. There is tendon exposed with necrotic tissue in this area. The heel has no exposed bone but has necrotic tissue as well. Results Labs 07/05/25 06:20 07/05/25 06:20 Labs: Short CBC 07/04/25 07/05/25 Range/Units 17:21 06:20 WBC 11.0 H (4.5-10.0) K/mm3 Hgb 8.7 L 8.6 L (12.0-15.0) g/dL Hct 28.4 L 28.9 L (37.0-47.0) % Plt Count 253 (150-375) k/mm3 BMP 07/05/25 06:20 Sodium 139 Potassium 4.9 Chloride 112 H Carbon Dioxide 20 L BUN 67 H D Creatinine 1.50 H Glucose 93 Calcium 7.8 L Liver Function 07/05/25 Range/Units 06:20 Total Bilirubin 0.4 (0.2-1.3) mg/dL AST 21 (14-36) U/L ALT 12 (6-35) U/L Alkaline Phosphatase 161 H (38-126) U/L Albumin 3.0 L (3.5-5.1) g/dL
[2025-07-05 20:54] VITALS: PULSE 80
[2025-07-05 22:00] VITALS: BP 161/90; PULSE 85; RESP 16; TEMP 36.6; O2SAT 100
[2025-07-06] MEDS: CENTRAL LINE FLUSH 10 ML IV PUSH ×3 (05:43→22:57)
[2025-07-06 06:00] VITALS: BP 128/77; PULSE 87; RESP 16; TEMP 36.2; O2SAT 100
[2025-07-06 07:14] LABS: Hematocrit 29.3 % (37.0-47.0); Hemoglobin 8.6 g/dL (12.0-15.0); Immature Granulocyte Percent A 0.5 % (0-0.5); Lymphocytes Absolute Auto 1.18 K/mm3 (0.9-3.2); Mean Corpuscular HGB Conc 29.4 g/dl (32-36); Mean Corpuscular Hemoglobin 26.8 pg (26-34); Mean Corpuscular Volume 91.3 fl (80-100); Nucleated Red Blood Cells Absolute Auto 0.000 K/mm3 (0.0-0.012); Nucleated Red Blood Cells Perc 0.0 % (0.0-0.2); Platelet Count Result 281 k/mm3 (150-375); Red Blood Count 3.21 M/mm3 (4.2-5.4); White Blood Count 10.6 K/mm3 (4.5-10.0)
[2025-07-06 07:34] LABS: Alanine Aminotransferase 12 U/L (6-35); Albumin Level 3.2 g/dL (3.5-5.1); Alkaline Phosphatase 175 U/L (38-126); Anion Gap 8 mmol/L (4-12); Aspartate Amino Transferase 24 U/L (14-36); Bilirubin,Total 0.3 mg/dL (0.2-1.3); Blood Urea Nitrogen 53 mg/dL (7-17); Calcium 8.2 mg/dL (8.4-10.2); Carbon Dioxide 21 mmol/L (22-30); Chloride 111 mmol/L (98-107); Estimated CRCL calculation 30 ml/min; Estimated Glomerular Filt Rate 39; Glucose 103 mg/dL (65-110); Potassium 4.7 mmol/L (3.4-5.0); Sodium 140 mmol/L (137-145); Total Protein 8.1 g/dL (6.3-8.2)
[2025-07-06 08:19] LABS: Anisocytosis 1+; Hypochromasia 1+; Schistocytes None Seen
--- NOTE | 2025-07-06 08:20 | P.PNIM_ITS ---
Progress Note: A&P Assessment and Plan (1) Pressure ulcers of skin of multiple topographic sites: Code(s): L89.90 - Pressure ulcer of unspecified site, unspecified stage Status: Chronic Assessment and Plan: - patient has multiple nonhealing wounds. Surgery followed on recent admit 05/2025. Patient underwent debridement of ischial wound during last hospitalization. - R ankle wound is tunneling to bone. - during last hospitalization, suprapubic catheter placement was discussed to aide in healing. Was delayed due to patient's coagulation profiles. Pradaxa has been on hold since that time and INR and PTT have improved. Continue to hold Pradaxa. Consult urology for suprapubic catheter placement. - concern for wound infection. Leukocytosis improving with Rocephin so will continue for now pending surgery recs. - general surgery consulted, appreciate recs. Considering R AKA. Patient is a ramos of the [facility] and all consents will need to obtained from her guardian. (2) Anemia: Code(s): D64.9 - Anemia, unspecified Status: Acute Assessment and Plan: - acute on chronic normocytic anemia - baseline Hgb around 8. Hgb 7.3 on admission and downtrended to 6.8 07/04 - last admit this was due to bleeding from wounds. No current signs of bleeding. - s/p 1 u PRBCs with improvement. Hgb now stable. - trend CBC. Transfuse Hgb <7 - iron studies consistent with iron deficiency. Start iron supplement. (3) Urinary tract infection: Code(s): N39.0 - Urinary tract infection, site not specified Status: Acute Assessment and Plan: - UA with 2+ LE, WBC 51-100 - urine culture 05/28/25 with Klebsiella pneumoniae and Providencia stuartii both sensitive to cephalosporins - admit WBC 18, afebrile, no leukocytosis - leukocytosis improving - initially started on Merrem. Transitioned to Rocephin. Urine culture with no growth, but leukocytosis improving on Rocephin so will continue for now. (4) RADHA (acute kidney injury): Code(s): N17.9 - Acute kidney failure, unspecified Status: Acute Assessment and Plan: - admit Cr 2.05. Baseline 1.2. Started on IV fluids - Cr improved to 1.39 - renal US with mild L hydronephrosis - voiding appropriately. Bladder scan without retention. - avoid nephrotoxins (5) Essential (primary) hypertension: Code(s): I10 - Essential (primary) hypertension Status: Acute Assessment and Plan: - continue home metoprolol with hold parameters (6) Generalized anxiety disorder: Code(s): F41.1 - Generalized anxiety disorder Status: Acute Assessment and Plan: - continue home citalopram, trazodone (7) Schizoaffective disorder: Code(s): F25.9 - Schizoaffective disorder, unspecified Status: Acute Assessment and Plan: - continue home trazodone (8) Multiple sclerosis: Code(s): G35 - Multiple sclerosis Status: Acute Assessment and Plan: -patient is contracted. -continue Lyrica and oxycodone (9) Gastrointestinal tube in situ: Code(s): Z93.1 - Gastrostomy status Status: Acute Assessment and Plan: - GI replaced G tube 07/05 (10) History of pulmonary embolism: Code(s): Z86.711 - Personal history of pulmonary embolism Status: Acute Assessment and Plan: - Pradaxa has been on hold since last admission, will continue to hold in case need for suprapubic catheter placement Plan DVT prophylaxis: SCDs due to anemia Code status: full code Dispo: back to [facility] Subjective Date/time seen: 07/06/25 08:20 Interval history: Patient seen and examined at bedside. Denied acute complaints other than leg pain. Discussed plan of care with general surgery. Review of Systems Review of Systems: All systems reviewed & are unremarkable except as noted in HPI and below Exam Narrative: General: NAD, appears chronically debilitated Eyes: EOMI ENT: neck supple Cardiovascular: Regular rate and rhythm Respiratory: Clear to auscultation, respirations even and unlabored on RA Gastrointestinal: Soft, non tender Genitourinary: no suprapubic tenderness Musculoskeletal: No edema. Extremities contracted. Quadriplegic. Skin: warm, dry. Wound dressings CDI. Neuro: Alert and oriented to self and month only. Psych: Mood appropriate Objective Data Vital Signs Vital Signs: Vital Signs - 24 hr 07/05/25 09:35 07/05/25 14:00 07/05/25 20:54 Temperature 97.0 F L Pulse Rate 79 84 80 Respiratory Rate 18 Blood Pressure 121/82 Pulse Oximetry 99 07/05/25 22:00 07/06/25 06:00 Temperature 97.9 F 97.2 F L Pulse Rate 85 87 Respiratory Rate 16 16 Blood Pressure 161/90 H 128/77 Pulse Oximetry 100 100 Intake/Output Intake/Output: Intake & Output 07/03/25 07/04/25 07/05/25 07/06/25 23:59 23:59 23:59 23:59 Intake Total 2100 1640 730 0 Output Total 1000 325 250 Balance 2100 640 405 -250 Meds/Results Medications: Active Medications Generic Name Dose Route Start Last Admin Trade Name Freq PRN Reason Stop Dose Admin Albuterol 2.5 mg 07/04/25 01:48 Albuterol Sulfate Neb 2.5 Mg/3 Ml Inh INHALATION Q4HRT PRN Shortness Of Breath Artificial Tears 1 drop 07/04/25 09:00 07/05/25 16:48 Artificial Tears Ophth Soln 15 Ml Bottle EACH EYE 1 drop TID MERLYN Administration Bisacodyl 5 mg 07/04/25 09:00 07/05/25 09:36 Bisacodyl 5 Mg Tablet Ec PO 5 mg DAILY MERLYN Administration Famotidine 20 mg 07/04/25 09:00 07/05/25 16:47 Famotidine 20 Mg Tablet PO 20 mg BID MERLYN Administration Ferrous Sulfate 325 mg 07/05/25 09:00 07/05/25 09:35 Ferrous Sulfate 325 Mg Tablet PO 325 mg DAILY MERLYN Administration Heparin Sodium (Beef Lung) 50 units 07/04/25 09:00 07/05/25 09:35 Heparin Flush 50 Units/5 Ml Syringe IV PUSH 50 units QAM MERLYN Administration Heparin Sodium (Beef Lung) 50 units 07/04/25 08:38 Heparin Flush 50 Units/5 Ml Syringe IV PUSH PRN PRN after intermittent infusion Heparin Sodium (Beef Lung) 50 units 07/04/25 08:38 Heparin Flush 50 Units/5 Ml Syringe IV PUSH PRN PRN after blood draws Heparin Sodium (Porcine) 5,000 units 07/04/25 09:00 07/04/25 12:17 Heparin Sodium 5,000 Units/Ml Vial SUB-Q Not Given On Hold: 07/04/25 10:50 Q12HR MERLYN Heparin Sodium (Porcine) 500 units 07/04/25 08:38 Heparin Sodium Lock Flush 500 Units/5 Ml Syringe IV PUSH PRN PRN see comments below Ceftriaxone Sodium 1 gm/ 50 mls @ 100 mls/hr 07/04/25 09:00 07/05/25 09:33 Sodium Chloride IVPB 100 mls/hr Q24H MERLYN Administration Metoprolol Tartrate 50 mg 07/04/25 09:00 07/05/25 20:54 Metoprolol Tartrate 50 Mg Tab PO 50 mg Q12HR MERLYN Administration Oxycodone HCl 5 mg 07/04/25 01:42 07/05/25 09:33 Oxycodone Hcl (*Crx) 5 Mg Tab Ir PO 5 mg Q8H PRN Administration Pain Polyethylene Glycol 17 gm 07/04/25 09:00 07/05/25 09:33 Polyethylene Glycol 3350 17 Gm Powd.Pack PO 17 gm QAM MERLYN Administration Pregabalin 75 mg 07/04/25 09:00 07/05/25 09:35 Pregabalin (*Crx) 75 Mg Capsule PO 75 mg DAILY MERLYN Administration Quetiapine Fumarate 25 mg 07/04/25 09:00 07/05/25 09:36 Quetiapine Fumarate 25 Mg Tablet PO 25 mg DAILY MERLYN Administration Senna 8.6 mg 07/04/25 01:42 07/05/25 09:32 Sennosides 8.6 Mg Tablet PO 8.6 mg DAILY PRN Administration Constipation Sodium Bicarbonate 325 mg 07/04/25 09:00 07/05/25 16:47 Sodium Bicarbonate Tab 325 Mg Tablet PO 325 mg BID MERLYN Administration Sodium Chloride 10 ml 07/04/25 14:00 07/06/25 05:43 Central Line Flush IV PUSH 10 ml Q8HR MERLYN Administration Thiamine HCl 300 mg 07/04/25 09:00 07/05/25 09:33 Thiamine Hcl 100 Mg Tablet FEED TUBE 300 mg QAM MERLYN Administration Trazodone HCl 50 mg 07/04/25 21:00 07/05/25 20:54 Trazodone Hcl 50 Mg Tablet PO 50 mg HS MERLYN Administration Radiology Results: ITS Impressions Abdomen/Pelvis CT 07/03/25 18:41 IMPRESSION: 1. No acute abnormality. 2. Additional findings as above. 3. Chronic right basilar atelectasis and/or airspace disease. Chest X-Ray 07/03/25 20:35 IMPRESSION: 1. Chronic right basilar atelectasis and/or airspace disease. 2. Similar but less severe findings left lung. Renal Ultrasound 07/04/25 14:59 Impression: Mild left hydronephrosis Labs Labs: Laboratory Results - last 24 hr 07/05/25 07/05/25 07/05/25 11:35 16:52 23:49 WBC RBC Hgb Hct MCV MCH MCHC RDW Plt Count MPV Immature Gran % (Auto) Neut % (Auto) Lymph % (Auto) [place] % (Auto) Eos % (Auto) Baso % (Auto) Lymph # (Auto) [place] # (Auto) Eos # (Auto) Baso # (Auto) Abs Immat Gran (auto) Absolute Neuts (auto) Absolute Nucleated RBC Band Neutrophils % Nucleated RBC % Platelet Estimate Hypochromasia Anisocytosis Schistocytes Sodium Potassium Chloride Carbon Dioxide Anion Gap BUN Creatinine Estim Creat Clear Calc Estimated GFR Glucose POC Capillary Glucose 85 117 H 105 Calcium Total Bilirubin AST ALT Alkaline Phosphatase Total Protein Albumin 07/06/25 07/06/25 04:47 07:01 WBC 10.6 H RBC 3.21 L Hgb 8.6 L Hct 29.3 L MCV 91.3 MCH 26.8 MCHC 29.4 L RDW 16.9 H Plt Count 281 MPV 11.1 H Immature Gran % (Auto) 0.5 Neut % (Auto) 77.3 H Lymph % (Auto) 11.2 L [place]manuel % (Auto) 5.1 Eos % (Auto) 5.7 H Baso % (Auto) 0.2 Lymph # (Auto) 1.18 [place]manuel # (Auto) 0.5 Eos # (Auto) 0.6 H Baso # (Auto) 0.0 Abs Immat Gran (auto) 0.05 H Absolute Neuts (auto) 8.2 H Absolute Nucleated RBC 0.000 Band Neutrophils % Not Reportable Nucleated RBC % 0.0 Platelet Estimate Adequate Hypochromasia 1+ Anisocytosis 1+ Schistocytes None seen Sodium 140 Potassium 4.7 Chloride 111 H Carbon Dioxide 21 L Anion Gap 8 BUN 53 H D Creatinine 1.39 H Estim Creat Clear Calc 30 Estimated GFR 39 L Glucose 103 POC Capillary Glucose 78 Calcium 8.2 L Total Bilirubin 0.3 AST 24 ALT 12 Alkaline Phosphatase 175 H Total Protein 8.1 Albumin 3.2 L Quality VTE Prophylaxis VTE prophylaxis: mechanical ordered
[2025-07-06 08:52] VITALS: PULSE 88
[2025-07-06] MEDS: FERROUS SULFATE 325 MG TABLET PO (08:52)
[2025-07-06] MEDS: METOPROLOL TARTRATE 50 MG TAB PO ×2 (08:52→20:38)
[2025-07-06] MEDS: SODIUM BICARBONATE TAB 325 MG TABLET PO ×2 (08:52→17:28)
[2025-07-06] MEDS: PREGABALIN (*CRX) 75 MG CAPSULE PO (08:52)
[2025-07-06] MEDS: THIAMINE HCL 100 MG TABLET 300 MG FEED TUBE (08:53)
[2025-07-06] MEDS: FAMOTIDINE 20 MG TABLET PO ×2 (08:53→17:28)
[2025-07-06] MEDS: ARTIFICIAL TEARS OPHTH SOLN 15 ML BOTTLE 1 DROP EACH EYE ×2 (08:55→17:28)
[2025-07-06] MEDS: cefTRIAXone 1 GM in SODIUM CHLORIDE 0.9% IV 50 ML 100 ML IVPB (09:10)
[2025-07-06 11:14] VITALS: BMI 19.1
--- NOTE | 2025-07-06 11:58 | P.PNGS_ITS ---
Progress Note: A&P Assessment and Plan (1) Pressure ulcers of skin of multiple topographic sites: Code(s): L89.90 - Pressure ulcer of unspecified site, unspecified stage Status: Chronic Assessment and Plan: * The patient has MS with bilateral lower extremities contractures and multiple stage III and stage IV decubitus ulcers. There does not appear to be an active infection in any of her wounds. The sacral wound, bilateral ischial wounds, posterior thigh, and right scapular wound appear stable. Will continue local wound care with Dakin's soaked gauze dressing changes. Her right foot wounds are extensive with the wound over the lateral ankle is eroding into the ankle joint with tendon and bone exposed. Given her contractures and care she has been given at the long-term, her best option for the right foot wounds would likely e an above knee amputation as she is bedridden. We will try to discuss this option with her legal guardian. This is not emergent, but should be considered. * She is also incontinent of urine and stool, which is consistently soiling her sacral and at times her ischial wounds. They will likely not heal given her incontinence and would be at risk for infection with frequent soiling. She may need a suprapubic catheter and diverting colostomy if there is any hope in getting her wounds to heal. Urology is being consulted today for possible suprapubic catheter. Continue wound care for now and frequent turning/pressure offloading. Plan I have discussed the patient's case and plan of care with Dr. Covarrubias. Subjective Subjective Date/Time Seen: 07/06/25 11:58 Patient reports: no new complaints Interval history: Patient seen today with wound care. No specific complaints at the time of our exam. No acute issues overnight. WBC count 10,600. Exam Const: General: comfortable and no acute distress Skin: Other: Stage III right posterior scapula decubitus ulcer measuring 5 x 3 x 0.5 cm with 100% pink tissue. No purulent drainage or surrounding erythema of the skin. Stage IV sacral decubitus ulcer measuring 4 x 3 x 1.5 cm with 100% pink healthy tissue, no bone exposed, no purulent drainage. No surrounding erythema the skin. Stage III left ischial decubitus ulcer measuring 2 x 2 x 1.5 cm with 100% pink healthy tissue, no purulent drainage. No surrounding erythema of the skin. Stage III right ischial decubitus ulcer measuring 6 x 4 x 2 cm with 90% healthy pink tissue and about 10% yellow slough. Drainage on the dressing is yellow exudate that is easily wiped away. No purulent drainage. No surrounding erythema. Stage III right posterior thigh decubitus ulcer which is below the greater trochanter, measuring 3 x 4 x 1 cm with 100% yellow slough, wound bed is firm, no crepitus, no purulence drainage, no surrounding erythema the skin. Bilateral lower extremities are contracted with deformities of her feet. There is a stage III right heel ulcer measuring 6 x 4 x 0.3 cm with 70% healthy pink tissue and a central area that is a soft superficial crain eschar in about 30% of the wound. No purulent drainage, no bone exposed. There is another large wound on the right dorsal foot extending over the lateral malleolus measuring 11 x 10 cm with about 50% pink healthy tissue, but the center of the wound has loose yellow necrotic tissue with severed tendons visible, bone at the lateral malleolus is exposed and there is clear fluid draining from what appears to be the ankle joint that is exposed at the center of the wound. The foot appears deformed, but there is no significant warmth or erythema of the foot. No purulence drainage coming from either wound on the right foot. She has no movement of her bilateral lower extremities. Left foot has no wounds. Her sacral and ischial wounds were saturated in urine on exam. [place] is positional and not functioning appropriately likely due to her contractions and positioning in bed. Objective Data Vital Signs Vital Signs: Vital Signs - 24 hr 07/05/25 14:00 07/05/25 20:54 07/05/25 22:00 Temperature 97.0 F L 97.9 F Pulse Rate 84 80 85 Respiratory Rate 18 16 Blood Pressure 121/82 161/90 H Pulse Oximetry 99 100 07/06/25 06:00 07/06/25 08:52 Temperature 97.2 F L Pulse Rate 87 88 Respiratory Rate 16 Blood Pressure 128/77 Pulse Oximetry 100 Intake/Output Intake/Output: Intake & Output 07/03/25 07/04/25 07/05/25 07/06/25 23:59 23:59 23:59 23:59 Intake Total 2100 1640 780 240 Output Total 1000 325 250 Balance 2100 640 455 -10 Meds/Results Medications: Active Medications Generic Name Dose Route Start Last Admin Trade Name Freq PRN Reason Stop Dose Admin Albuterol 2.5 mg 07/04/25 01:48 Albuterol Sulfate Neb 2.5 Mg/3 Ml Inh INHALATION Q4HRT PRN Shortness Of Breath Artificial Tears 1 drop 07/04/25 09:00 07/06/25 08:55 Artificial Tears Ophth Soln 15 Ml Bottle EACH EYE 1 drop TID MERLYN Administration Bisacodyl 5 mg 07/04/25 09:00 07/05/25 09:36 Bisacodyl 5 Mg Tablet Ec PO 5 mg DAILY MERLYN Administration Famotidine 20 mg 07/04/25 09:00 07/06/25 08:53 Famotidine 20 Mg Tablet PO 20 mg BID MERLYN Administration Ferrous Sulfate 325 mg 07/05/25 09:00 07/06/25 08:52 Ferrous Sulfate 325 Mg Tablet PO 325 mg DAILY MERLYN Administration Heparin Sodium (Beef Lung) 50 units 07/04/25 09:00 07/06/25 08:53 Heparin Flush 50 Units/5 Ml Syringe IV PUSH 50 units QAM MERLYN Administration Heparin Sodium (Beef Lung) 50 units 07/04/25 08:38 Heparin Flush 50 Units/5 Ml Syringe IV PUSH PRN PRN after intermittent infusion Heparin Sodium (Beef Lung) 50 units 07/04/25 08:38 Heparin Flush 50 Units/5 Ml Syringe IV PUSH PRN PRN after blood draws Heparin Sodium (Porcine) 5,000 units 07/04/25 09:00 07/04/25 12:17 Heparin Sodium 5,000 Units/Ml Vial SUB-Q Not Given On Hold: 07/04/25 10:50 Q12HR MERLYN Heparin Sodium (Porcine) 500 units 07/04/25 08:38 Heparin Sodium Lock Flush 500 Units/5 Ml Syringe IV PUSH PRN PRN see comments below Ceftriaxone Sodium 1 gm/ 50 mls @ 100 mls/hr 07/04/25 09:00 07/06/25 09:10 Sodium Chloride IVPB 100 mls/hr Q24H MERLYN Administration Metoprolol Tartrate 50 mg 07/04/25 09:00 07/06/25 08:52 Metoprolol Tartrate 50 Mg Tab PO 50 mg Q12HR MERLYN Administration Oxycodone HCl 5 mg 07/04/25 01:42 07/05/25 09:33 Oxycodone Hcl (*Crx) 5 Mg Tab Ir PO 5 mg Q8H PRN Administration Pain Polyethylene Glycol 17 gm 07/04/25 09:00 07/06/25 08:54 Polyethylene Glycol 3350 17 Gm Powd.Pack PO 17 gm QAM MERLYN Administration Pregabalin 75 mg 07/04/25 09:00 07/06/25 08:52 Pregabalin (*Crx) 75 Mg Capsule PO 75 mg DAILY MERLYN Administration Quetiapine Fumarate 25 mg 07/04/25 09:00 07/06/25 08:52 Quetiapine Fumarate 25 Mg Tablet PO 25 mg DAILY MERLYN Administration Senna 8.6 mg 07/04/25 01:42 07/05/25 09:32 Sennosides 8.6 Mg Tablet PO 8.6 mg DAILY PRN Administration Constipation Sodium Bicarbonate 325 mg 07/04/25 09:00 07/06/25 08:52 Sodium Bicarbonate Tab 325 Mg Tablet PO 325 mg BID MERLYN Administration Sodium Chloride 10 ml 07/04/25 14:00 07/06/25 05:43 Central Line Flush IV PUSH 10 ml Q8HR MERLYN Administration Sodium Hypochlorite 1 applic 07/06/25 09:00 Sod Hypochlorite 1/4 Strength 473 Ml TOPICAL DAILY MERLYN Thiamine HCl 300 mg 07/04/25 09:00 07/06/25 08:53 Thiamine Hcl 100 Mg Tablet FEED TUBE 300 mg QAM MERLYN Administration Trazodone HCl 50 mg 07/04/25 21:00 07/05/25 20:54 Trazodone Hcl 50 Mg Tablet PO 50 mg HS MERLYN Administration Radiology Results: ITS Impressions Abdomen/Pelvis CT 07/03/25 18:41 IMPRESSION: 1. No acute abnormality. 2. Additional findings as above. 3. Chronic right basilar atelectasis and/or airspace disease. Chest X-Ray 07/03/25 20:35 IMPRESSION: 1. Chronic right basilar atelectasis and/or airspace disease. 2. Similar but less severe findings left lung. Renal Ultrasound 07/04/25 14:59 Impression: Mild left hydronephrosis Labs Labs: Laboratory Results - last 24 hr 07/05/25 07/05/25 07/06/25 16:52 23:49 04:47 WBC RBC Hgb Hct MCV MCH MCHC RDW Plt Count MPV Immature Gran % (Auto) Neut % (Auto) Lymph % (Auto) [place] % (Auto) Eos % (Auto) Baso % (Auto) Lymph # (Auto) [place] # (Auto) Eos # (Auto) Baso # (Auto) Abs Immat Gran (auto) Absolute Neuts (auto) Absolute Nucleated RBC Band Neutrophils % Nucleated RBC % Platelet Estimate Hypochromasia Anisocytosis Schistocytes Sodium Potassium Chloride Carbon Dioxide Anion Gap BUN Creatinine Estim Creat Clear Calc Estimated GFR Glucose POC Capillary Glucose 117 H 105 78 Calcium Total Bilirubin AST ALT Alkaline Phosphatase Total Protein Albumin 07/06/25 07/06/25 07:01 11:35 WBC 10.6 H RBC 3.21 L Hgb 8.6 L Hct 29.3 L MCV 91.3 MCH 26.8 MCHC 29.4 L RDW 16.9 H Plt Count 281 MPV 11.1 H Immature Gran % (Auto) 0.5 Neut % (Auto) 77.3 H Lymph % (Auto) 11.2 L [place] % (Auto) 5.1 Eos % (Auto) 5.7 H Baso % (Auto) 0.2 Lymph # (Auto) 1.18 [place] # (Auto) 0.5 Eos # (Auto) 0.6 H Baso # (Auto) 0.0 Abs Immat Gran (auto) 0.05 H Absolute Neuts (auto) 8.2 H Absolute Nucleated RBC 0.000 Band Neutrophils % Not Reportable Nucleated RBC % 0.0 Platelet Estimate Adequate Hypochromasia 1+ Anisocytosis 1+ Schistocytes None seen Sodium 140 Potassium 4.7 Chloride 111 H Carbon Dioxide 21 L Anion Gap 8 BUN 53 H D Creatinine 1.39 H Estim Creat Clear Calc 30 Estimated GFR 39 L Glucose 103 POC Capillary Glucose 106 H Calcium 8.2 L Total Bilirubin 0.3 AST 24 ALT 12 Alkaline Phosphatase 175 H Total Protein 8.1 Albumin 3.2 L
--- NOTE | 2025-07-06 12:59 | P.CDI_ITS ---
CDI Query Clarification Request BMI: 19.1 Nutritional Diagnostic Statement: Please refer to the comprehensive nutrition assessment for further information. If you agree with diagnosis of Moderate protein calorie malnutrition related to chronic illness and increased energy expenditure as evidenced by multiple pressure injuries, less than 75% intake greater than 1 month, a significant weight loss of -6% x 1 month, and NFPE findings for moderate subcutaneous fat loss and muscle wasting. Please specify severity if known: * Mild * Moderate * Severe * Other/Unknown <Oliva Colbert RN - Last Filed: 07/06/25 13:00> Clarified Diagnosis Clarified Diagnosis: Moderate protein calorie malnutrition <LEWIS Patrick - Last Filed: 07/06/25 16:04>
[2025-07-06] MEDS: SOD HYPOCHLORITE 1/4 STRENGTH 473 ML 1 APPLIC TOPICAL (13:07)
[2025-07-06 13:57] LABS: CRP 8.6 mg/dL (<1.0)
[2025-07-06 14:00] VITALS: BP 123/74; PULSE 85; RESP 18; TEMP 36.4; O2SAT 99
--- NOTE | 2025-07-06 14:08 | WPDURCON ---
Urology Consult Note HPI Date Seen: 07/06/25 Requesting Physician: Beto Chairez MD Primary Care Provider: Luis Eduardo Quiroga, Consult Narrative Narrative: Yesenia Perez is a 60 year old female she has multiple sclerosis and multiple contractures. She is incontinent of urine and stool. She has multiple decubitus ulcers. No need for repeat urologic consult on this admission. She has already been evaluated. Agree she would be well served for urinary diversion with a suprapubic tube assuming that the procedure is possible with her anatomy. She has multiple contractures. In the past we have been unable to visualize her urethra. Timing of this would be in conjunction with a general surgical procedure. Please let us know if formal plans are made for a general surgical procedure and we can coordinate. I briefly discussed with Dr. Covarrubias. [facility] Past Medical History Medical History Multiple sclerosis Gastrointestinal tube in situ Chronic kidney disease, stage 3 Anorexia Malnutrition Pulmonary embolism (2014) Xanthogranulomatous pyelonephritis MRSA infection Urinary tract infection due to extended-spectrum beta lactamase (ESBL) producing Escherichia coli Chronic respiratory failure with hypoxia, on home oxygen therapy Previously documented that the patient is oxygen dependent on 4 L nasal cannula however she denies and is on room air with good SpO2 as of 07/27/2023. 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 History of nephrostomy Family History Family History Mother Family history of multiple sclerosis Hypertension Father Patient's father is Social History Social History Social History: She resides at [facility]. Patient is a ramos of the [facility]. Her guardian is Abe Burnham ([phone]). Code status: Full code. Smoking packs per day: 0.5 Smoking cigarettes per day: 10.0 Years smoked: 1 Smoking pack-years: 0.50 Smoking status: Never smoker Second hand tobacco smoke exposure: No Alcohol intake: never Substance use: never Do You Feel Safe in your Home?: Yes Lack of Transportation: No Lack of Food: Never True Current Housing: I Have Housing Concerned About Future Housing: No Difficulty Paying Gas/Electric Bills: No Difficulty Paying for Meds: No Currently Unemployed: No Education: Don't Know Difficulty w/ Childcare or Family Care: No Living arrangements: group home Additional living arrangements comments: 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ion: other Additional occupation/education comments: Disabled Spiritual care concerns: No Agree to blood products: Yes Meds Home Medications and Allergies Home Medications ?Medication ?Instructions ?Recorded ?Confirmed ?Type cholecalciferol (vitamin D3) 1,000 units G-tube DAILY 12/17/22 07/03/25 History famotidine 20 mg tablet 20 mg PO BID 12/17/22 07/03/25 History ondansetron 4 mg disintegrating 4 mg PO QID PRN Nausea And Vomiting 12/17/22 07/03/25 History tablet trazodone 50 mg tablet 50 mg PO HS 12/17/22 07/03/25 History sennosides 8.6 mg tablet (senna) 8.6 mg PO DAILY PRN Constipation 07/27/23 07/03/25 History thiamine HCl (vitamin B1) 100 mg 300 mg (3 x 100 mg) feeding tube 01/31/24 07/03/25 Rx tablet (Vitamin B-1) QAM #90 tabs citalopram 20 mg tablet 30 mg PO DAILY 06/20/24 07/03/25 History dextran 70-hypromellose eye drops 1 drp EACH EYE TID 06/20/24 07/03/25 History (Artificial Tears (dextran 70-hypromellose) eye drops) metoprolol tartrate 50 mg tablet 50 mg PO TID 06/20/24 07/03/25 History polyethylene glycol 3350 17 gram 17 g PO QAM #30 ea 07/17/24 07/03/25 Rx oral powder packet (Miralax) arginine 7 gram-glutamine 7 1 ea PO BID 01/13/25 07/03/25 History gram-calcium HMB 1.5 gram oral powder pack (Maged) bisacodyl 5 mg tablet,delayed 5 mg PO DAILY 01/13/25 07/03/25 History release ipratropium bromide 0.02 % 1.25 ml inhalation DAILY PRN 01/13/25 07/03/25 History solution for inhalation shortness of breath or wheezing dabigatran etexilate 150 mg capsule 150 mg PO BID 05/28/25 07/03/25 History Held on 06/05/25. Instructions: Resume on 06/26/25. Hold until suprapubic catheter is placed furosemide 20 mg tablet 20 mg feeding tube DAILY 05/28/25 07/03/25 History quetiapine 25 mg tablet 25 mg PO DAILY 05/28/25 07/03/25 History sodium bicarbonate 650 mg tablet 325 mg PO BID 05/28/25 07/03/25 History magnesium citrate (Citroma oral 296 ml PO DAILY PRN constipation 07/03/25 07/03/25 History solution) magnesium hydroxide 400 mg/5 mL 30 ml PO DAILY PRN constipation 07/03/25 07/03/25 History oral suspension (Milk of Magnesia) [id number]-[id number] acid 1 tablet PO DAILY 07/03/25 07/03/25 History oxycodone 5 mg capsule 5 mg PO Q8H PRN pain 07/03/25 07/03/25 History pregabalin 75 mg capsule 75 mg PO DAILY 07/03/25 07/03/25 History sodium phosphates 133 ml RECTAL DAILY PRN 07/03/25 07/03/25 History constipation lactose-reduced food with fiber 1 ea feeding tube .continuous 07/04/25 07/04/25 History 0.06 gram-1.5 kcal/mL oral liquid (Jevity 1.5 Elmer) Allergies Allergy/AdvReac Type Severity Reaction Status Date / Time No Known Allergies Allergy Verified 07/03/25 17:22 Vital Signs Vital Signs - 24 hr 07/05/25 20:54 07/05/25 22:00 07/06/25 06:00 Temperature 97.9 F 97.2 F L Pulse Rate 80 85 87 Respiratory Rate 16 16 Blood Pressure 161/90 H 128/77 Pulse Oximetry 100 100 07/06/25 08:52 Temperature Pulse Rate 88 Respiratory Rate Blood Pressure Pulse Oximetry Results Labs 07/06/25 07:01 07/06/25 07:01 Labs: Short CBC 07/06/25 Range/Units 07:01 WBC 10.6 H (4.5-10.0) K/mm3 Hgb 8.6 L (12.0-15.0) g/dL Hct 29.3 L (37.0-47.0) % Plt Count 281 (150-375) k/mm3 BMP 07/06/25 07:01 Sodium 140 Potassium 4.7 Chloride 111 H Carbon Dioxide 21 L BUN 53 H D Creatinine 1.39 H Glucose 103 Calcium 8.2 L Liver Function 07/06/25 Range/Units 07:01 Total Bilirubin 0.3 (0.2-1.3) mg/dL AST 24 (14-36) U/L ALT 12 (6-35) U/L Alkaline Phosphatase 175 H (38-126) U/L Albumin 3.2 L (3.5-5.1) g/dL
[2025-07-06] MEDS: BISACODYL 5 MG TABLET EC PO (17:28)
[2025-07-06 20:33] VITALS: BP 155/97; PULSE 117; RESP 16; TEMP 36.8; O2SAT 97
[2025-07-06 20:38] VITALS: PULSE 77
[2025-07-07 04:16] VITALS: BP 128/84; PULSE 95; RESP 16; TEMP 36.2; O2SAT 99
[2025-07-07] MEDS: CENTRAL LINE FLUSH 10 ML IV PUSH ×3 (05:01→21:05)
[2025-07-07 06:01] LABS: Hematocrit 30.2 % (37.0-47.0); Hemoglobin 9.0 g/dL (12.0-15.0); Immature Granulocyte Percent A 0.6 % (0-0.5); Lymphocytes Absolute Auto 1.60 K/mm3 (0.9-3.2); Mean Corpuscular HGB Conc 29.8 g/dl (32-36); Mean Corpuscular Hemoglobin 27.4 pg (26-34); Mean Corpuscular Volume 91.8 fl (80-100); Nucleated Red Blood Cells Absolute Auto 0.000 K/mm3 (0.0-0.012); Nucleated Red Blood Cells Perc 0.0 % (0.0-0.2); Platelet Count Result 299 k/mm3 (150-375); Red Blood Count 3.29 M/mm3 (4.2-5.4); White Blood Count 12.4 K/mm3 (4.5-10.0)
[2025-07-07 06:27] LABS: Alanine Aminotransferase 12 U/L (6-35); Albumin Level 3.1 g/dL (3.5-5.1); Alkaline Phosphatase 176 U/L (38-126); Anion Gap 7 mmol/L (4-12); Aspartate Amino Transferase 22 U/L (14-36); Bilirubin,Total 0.3 mg/dL (0.2-1.3); Blood Urea Nitrogen 52 mg/dL (7-17); Calcium 8.4 mg/dL (8.4-10.2); Carbon Dioxide 23 mmol/L (22-30); Chloride 110 mmol/L (98-107); Estimated CRCL calculation 32 ml/min; Estimated Glomerular Filt Rate 42; Glucose 100 mg/dL (65-110); Potassium 4.9 mmol/L (3.4-5.0); Sodium 140 mmol/L (137-145); Total Protein 8.2 g/dL (6.3-8.2)
[2025-07-07 06:42] LABS: CRP 11.7 mg/dL (<1.0)
[2025-07-07 06:49] LABS: Anisocytosis 1+; Hypochromasia 1+; Schistocytes None Seen
--- NOTE | 2025-07-07 08:20 | P.PNIM_ITS ---
Progress Note: A&P Assessment and Plan (1) Pressure ulcers of skin of multiple topographic sites: Code(s): L89.90 - Pressure ulcer of unspecified site, unspecified stage Status: Chronic Assessment and Plan: - patient has multiple nonhealing wounds. Surgery followed on recent admit 05/2025. Patient underwent debridement of ischial wound during last hospitalization. - R ankle wound is tunneling to bone. - during last hospitalization, suprapubic catheter placement/diverting ostomy was discussed to aide in healing. Was delayed due to patient's coagulation profiles. Pradaxa has been on hold since that time and PT/INR and PTT have improved. Continue to hold Pradaxa. Consult urology for suprapubic catheter placement. - concern for wound infection although general surgery feels all wounds appear clean. Leukocytosis initially improving with Rocephin so will continue for now pending surgery recs. WBC 12 today, mildly uptrending. Consider broadening antibiotics if continues to uptrend. - general surgery consulted, appreciate recs. Considering R AKA. Patient is a ramos of the [facility] and all consents will need to obtained from her guardian. (2) Anemia: Code(s): D64.9 - Anemia, unspecified Status: Acute Assessment and Plan: - acute on chronic normocytic anemia - baseline Hgb around 8. Hgb 7.3 on admission and downtrended to 6.8 07/04 - last admit anemia was due to bleeding from wounds. No current signs of bleeding. - s/p 1 u PRBCs with improvement. Hgb now stable. - trend CBC. Transfuse Hgb <7 - iron studies consistent with iron deficiency. Started iron supplement. (3) Urinary tract infection: Code(s): N39.0 - Urinary tract infection, site not specified Status: Acute Assessment and Plan: - UA with 2+ LE, WBC 51-100 - urine culture 05/28/25 with Klebsiella pneumoniae and Providencia stuartii both sensitive to cephalosporins - admit WBC 18, afebrile, no leukocytosis - leukocytosis improving - initially started on Merrem. Transitioned to Rocephin. Urine culture with no growth, but leukocytosis improving on Rocephin so will continue for now. (4) RADHA (acute kidney injury): Code(s): N17.9 - Acute kidney failure, unspecified Status: Acute Assessment and Plan: - admit Cr 2.05. Baseline 1.2. S/p IV fluids - Cr improved to 1.30 - renal US with mild L hydronephrosis - voiding appropriately. Bladder scan without retention. - avoid nephrotoxins (5) Essential (primary) hypertension: Code(s): I10 - Essential (primary) hypertension Status: Acute Assessment and Plan: - continue home metoprolol with hold parameters (6) Generalized anxiety disorder: Code(s): F41.1 - Generalized anxiety disorder Status: Acute Assessment and Plan: - continue home citalopram, trazodone (7) Schizoaffective disorder: Code(s): F25.9 - Schizoaffective disorder, unspecified Status: Acute Assessment and Plan: - continue home trazodone (8) Multiple sclerosis: Code(s): G35 - Multiple sclerosis Status: Acute Assessment and Plan: -patient is contracted. -continue Lyrica and oxycodone (9) Gastrointestinal tube in situ: Code(s): Z93.1 - Gastrostomy status Status: Acute Assessment and Plan: - G tube was clogged on admission. GI replaced G tube 07/05 (10) History of pulmonary embolism: Code(s): Z86.711 - Personal history of pulmonary embolism Status: Acute Assessment and Plan: - Pradaxa has been on hold since last admission, will continue to hold in case need for surgical intervention Plan DVT prophylaxis: SCDs Code status: full code Dispo: back to [facility] once medically stable Subjective Date/time seen: 07/07/25 08:20 Interval history: Patient seen and examined at bedside. Denied acute complaints. Discussed plan of care with general surgery, formulation of plan still ongoing. Review of Systems Review of Systems: All systems reviewed & are unremarkable except as noted in HPI and below Exam Narrative: General: NAD, appears chronically debilitated Eyes: EOMI ENT: neck supple Cardiovascular: Regular rate and rhythm Respiratory: Clear to auscultation, respirations even and unlabored on RA Gastrointestinal: Soft, non tender Genitourinary: no suprapubic tenderness Musculoskeletal: No edema. Extremities contracted. Quadriplegic. Skin: warm, dry. Wound dressings CDI. Neuro: Alert. Psych: Mood appropriate Objective Data Vital Signs Vital Signs: Vital Signs - 24 hr 07/06/25 08:52 07/06/25 14:00 07/06/25 20:33 Temperature 97.6 F 98.2 F Pulse Rate 88 85 117 H Respiratory Rate 18 16 Blood Pressure 123/74 155/97 H Pulse Oximetry 99 97 07/06/25 20:38 07/07/25 04:16 Temperature 97.2 F L Pulse Rate 77 95 Respiratory Rate 16 Blood Pressure 128/84 Pulse Oximetry 99 Intake/Output Intake/Output: Intake & Output 07/04/25 07/05/25 07/06/25 07/07/25 23:59 23:59 23:59 23:59 Intake Total 1640 780 720 Output Total 1000 325 250 375 Balance 640 455 470 -375 Meds/Results Medications: Active Medications Generic Name Dose Route Start Last Admin Trade Name Freq PRN Reason Stop Dose Admin Albuterol 2.5 mg 07/04/25 01:48 Albuterol Sulfate Neb 2.5 Mg/3 Ml Inh INHALATION Q4HRT PRN Shortness Of Breath Artificial Tears 1 drop 07/04/25 09:00 07/06/25 17:28 Artificial Tears Ophth Soln 15 Ml Bottle EACH EYE 1 drop TID MERLYN Administration Bisacodyl 5 mg 07/04/25 09:00 07/06/25 17:28 Bisacodyl 5 Mg Tablet Ec PO 5 mg DAILY MERLYN Administration Famotidine 20 mg 07/04/25 09:00 07/06/25 17:28 Famotidine 20 Mg Tablet PO 20 mg BID MERLYN Administration Ferrous Sulfate 325 mg 07/05/25 09:00 07/06/25 08:52 Ferrous Sulfate 325 Mg Tablet PO 325 mg DAILY MERLYN Administration Heparin Sodium (Beef Lung) 50 units 07/04/25 09:00 07/06/25 08:53 Heparin Flush 50 Units/5 Ml Syringe IV PUSH 50 units QAM MERLYN Administration Heparin Sodium (Beef Lung) 50 units 07/04/25 08:38 Heparin Flush 50 Units/5 Ml Syringe IV PUSH PRN PRN after intermittent infusion Heparin Sodium (Beef Lung) 50 units 07/04/25 08:38 Heparin Flush 50 Units/5 Ml Syringe IV PUSH PRN PRN after blood draws Heparin Sodium (Porcine) 5,000 units 07/04/25 09:00 07/04/25 12:17 Heparin Sodium 5,000 Units/Ml Vial SUB-Q Not Given On Hold: 07/04/25 10:50 Q12HR MERLYN Heparin Sodium (Porcine) 500 units 07/04/25 08:38 Heparin Sodium Lock Flush 500 Units/5 Ml Syringe IV PUSH PRN PRN see comments below Ceftriaxone Sodium 1 gm/ 50 mls @ 100 mls/hr 07/04/25 09:00 07/06/25 09:10 Sodium Chloride IVPB 100 mls/hr Q24H MERLYN Administration Metoprolol Tartrate 50 mg 07/04/25 09:00 07/06/25 20:38 Metoprolol Tartrate 50 Mg Tab PO 50 mg Q12HR MERLYN Administration Oxycodone HCl 5 mg 07/04/25 01:42 07/05/25 09:33 Oxycodone Hcl (*Crx) 5 Mg Tab Ir PO 5 mg Q8H PRN Administration Pain Polyethylene Glycol 17 gm 07/04/25 09:00 07/06/25 08:54 Polyethylene Glycol 3350 17 Gm Powd.Pack PO 17 gm QAM MERLYN Administration Pregabalin 75 mg 07/04/25 09:00 07/06/25 08:52 Pregabalin (*Crx) 75 Mg Capsule PO 75 mg DAILY MERLYN Administration Quetiapine Fumarate 25 mg 07/04/25 09:00 07/06/25 08:52 Quetiapine Fumarate 25 Mg Tablet PO 25 mg DAILY MERLYN Administration Senna 8.6 mg 07/04/25 01:42 07/05/25 09:32 Sennosides 8.6 Mg Tablet PO 8.6 mg DAILY PRN Administration Constipation Sodium Bicarbonate 325 mg 07/04/25 09:00 07/06/25 17:28 Sodium Bicarbonate Tab 325 Mg Tablet PO 325 mg BID MERLYN Administration Sodium Chloride 10 ml 07/04/25 14:00 07/07/25 05:01 Central Line Flush IV PUSH 10 ml Q8HR MERLYN Administration Sodium Hypochlorite 1 applic 07/06/25 09:00 07/06/25 13:07 Sod Hypochlorite 1/4 Strength 473 Ml TOPICAL 1 applic DAILY MERLYN Administration Thiamine HCl 300 mg 07/04/25 09:00 07/06/25 08:53 Thiamine Hcl 100 Mg Tablet FEED TUBE 300 mg QAM MERLYN Administration Trazodone HCl 50 mg 07/04/25 21:00 07/06/25 20:38 Trazodone Hcl 50 Mg Tablet PO 50 mg HS MERLYN Administration Radiology Results: ITS Impressions Abdomen/Pelvis CT 07/03/25 18:41 IMPRESSION: 1. No acute abnormality. 2. Additional findings as above. 3. Chronic right basilar atelectasis and/or airspace disease. Chest X-Ray 07/03/25 20:35 IMPRESSION: 1. Chronic right basilar atelectasis and/or airspace disease. 2. Similar but less severe findings left lung. Renal Ultrasound 07/04/25 14:59 Impression: Mild left hydronephrosis Labs Labs: Laboratory Results - last 24 hr 07/06/25 07/06/25 07/06/25 07:01 11:35 18:49 WBC RBC Hgb Hct MCV MCH MCHC RDW Plt Count MPV Immature Gran % (Auto) Neut % (Auto) Lymph % (Auto) Cottle % (Auto) Eos % (Auto) Baso % (Auto) Lymph # (Auto) Cottle # (Auto) Eos # (Auto) Baso # (Auto) Abs Immat Gran (auto) Absolute Neuts (auto) Absolute Nucleated RBC Band Neutrophils % Nucleated RBC % Platelet Estimate Hypochromasia Anisocytosis Schistocytes Sodium Potassium Chloride Carbon Dioxide Anion Gap BUN Creatinine Estim Creat Clear Calc Estimated GFR Glucose POC Capillary Glucose 106 H 105 Calcium Total Bilirubin AST ALT Alkaline Phosphatase C-Reactive Protein 8.6 H Total Protein Albumin 07/07/25 07/07/25 00:35 05:41 WBC 12.4 H RBC 3.29 L Hgb 9.0 L Hct 30.2 L MCV 91.8 MCH 27.4 MCHC 29.8 L RDW 17.0 H Plt Count 299 MPV 10.8 H Immature Gran % (Auto) 0.6 H Neut % (Auto) 76.8 H Lymph % (Auto) 13.0 L Cottle % (Auto) 5.4 Eos % (Auto) 4.0 Baso % (Auto) 0.2 Lymph # (Auto) 1.60 Cottle # (Auto) 0.7 H Eos # (Auto) 0.5 H Baso # (Auto) 0.0 Abs Immat Gran (auto) 0.07 H Absolute Neuts (auto) 9.5 H Absolute Nucleated RBC 0.000 Band Neutrophils % Not Reportable Nucleated RBC % 0.0 Platelet Estimate Adequate Hypochromasia 1+ Anisocytosis 1+ Schistocytes None seen Sodium 140 Potassium 4.9 Chloride 110 H Carbon Dioxide 23 Anion Gap 7 BUN 52 H Creatinine 1.30 H Estim Creat Clear Calc 32 Estimated GFR 42 L Glucose 100 POC Capillary Glucose 106 H Calcium 8.4 Total Bilirubin 0.3 AST 22 ALT 12 Alkaline Phosphatase 176 H C-Reactive Protein 11.7 H Total Protein 8.2 Albumin 3.1 L Quality VTE Prophylaxis VTE prophylaxis: mechanical ordered
[2025-07-07 08:47] VITALS: PULSE 95
[2025-07-07] MEDS: METOPROLOL TARTRATE 50 MG TAB PO ×2 (08:47→21:05)
[2025-07-07] MEDS: SODIUM BICARBONATE TAB 325 MG TABLET PO ×2 (08:47→16:39)
[2025-07-07] MEDS: FAMOTIDINE 20 MG TABLET PO ×2 (08:48→16:39)
[2025-07-07] MEDS: PREGABALIN (*CRX) 75 MG CAPSULE PO (08:48)
[2025-07-07] MEDS: FERROUS SULFATE 325 MG TABLET PO (08:48)
[2025-07-07] MEDS: THIAMINE HCL 100 MG TABLET 300 MG FEED TUBE (08:48)
[2025-07-07] MEDS: cefTRIAXone 1 GM in SODIUM CHLORIDE 0.9% IV 50 ML 100 ML IVPB (08:48)
[2025-07-07] MEDS: ARTIFICIAL TEARS OPHTH SOLN 15 ML BOTTLE 1 DROP EACH EYE ×3 (08:49→16:39)
[2025-07-07] MEDS: BISACODYL 5 MG TABLET EC PO (09:41)
--- NOTE | 2025-07-07 12:16 | PCNFU ---
Nutrition Follow-Up Complete: Moderate protein calorie malnutrition related to chronic illness and increased energy expenditure as evidenced by multiple pressure injuries, less than 75% intake greater than 1 month, a significant weight loss of -6% x 1 month, and NFPE findings for moderate subcutaneous fat loss and muscle wasting. Goal:PO intake of supplements Pt progressing towards goal, continue with same goal Pt current nutrition is Regulare, Ensure TID, AYALA BID, Tube feeding: jevity 1.5 @ 50ml/hr = 1650kcals, 70g protein, 1736ml free water. Nutrition recommendation: continue with current plan of care Last recorded weight is 48.9 kg. Bowel Motility: +BM 07/06 Labs Reviewed: Hgb:9.0, HCT:30.2, Alb:3.1, GFR:42, BUN:52, Cr:1.3 Meds Noted: miralax Skin: Multiple pressure injuries - see wound report Additional Notes: Pt continues on a regular diet, supplements of Ensure TID and AYALA BID in place. Tube feeding continues as before and is providing majority of pt's needs. Agree with orders, encourage po intake of meals and supplements. Monitor intake, wt, labs. Follow up in every Sunday and Sunday.
[2025-07-07 14:26] VITALS: BP 114/82; PULSE 91; RESP 18; TEMP 36.8; O2SAT 100
--- NOTE | 2025-07-07 14:36 | P.CDI_ITS ---
CDI Query Clarification Request ER mentioned sepsis, please clarify if this diagnosis has been ruled in or ruled out. ER documented: Patient presents the emergency department for abdominal discomfort, nausea and vomiting. She is afebrile and nontoxic appearing. Multiple chronic pressure wounds. None appear acutely infected at this time. Blood pressure soft and patient tachycardic upon arrival. This normalized with IV fluids. CBC with leukocytosis. Hemoglobin appears similar to previous. Metabolic panel with evidence of dehydration. Pending UA, CT abdomen pelvis care taken over by MELISSA Walker with plan for likely admission. Blood cultures drawn, patient sta rted on IV antibiotics for presumptive UTI Clinical Impression: Acute kidney injury, Contracture of muscles of both lower extremities, Multiple sclerosis, History of infection with vancomycin resistant Enterococcus (VRE) Sepsis Qualifiers: Sepsis type: sepsis due to unspecified organism Sepsis acute organ dysfunction status: without acute organ dysfunction Qualified Code(s): A41.9 - Sepsis, unspecified organism Decubitus ulcers Qualifiers: Pressure injury location: unspecified location Pressure injury stage: unspecified pressure injury stage Qualified Code(s): L89.90 - Pressure ulcer of unspecified site, unspecified stage Urinary tract infection Qualifiers: Urinary tract infection type: acute cystitis Hematuria presence: without hematuria Qualified Code(s): N30.00 - Acute cystitis without hematuria Hospitalist: Assessment and Plan (1) Pressure ulcers of skin of multiple topographic sites: Code(s): L89.90 - Pressure ulcer of unspecified site, unspecified stage Status: Chronic Assessment and Plan: - patient has multiple nonhealing wounds. Surgery followed on recent admit 05/2025. Patient underwent debridement of ischial wound during last hospitalization. - R ankle wound is tunneling to bone. - during last hospitalization, suprapubic catheter placement/diverting ostomy was discussed to aide in healing. Was delayed due to patient's coagulation profiles. Pradaxa has been on hold since that time and PT/INR and PTT have improved. Continue to hold Pradaxa. Consult urology for suprapubic catheter placement. - concern for wound infection although general surgery feels all wounds appear clean. Leukocytosis initially improving with Rocephin so will continue for now pending surgery recs. WBC 12 today, mildly uptrending. Consider broadening antibiotics if continues to uptrend. - general surgery consulted, appreciate recs. Considering R AKA. Patient is a ramos of the [facility] and all consents will need to obtained from her guardian. (2) Anemia: Code(s): D64.9 - Anemia, unspecified Status: Acute Assessment and Plan: - acute on chronic normocytic anemia - baseline Hgb around 8. Hgb 7.3 on admission and downtrended to 6.8 07/04 - last admit anemia was due to bleeding from wounds. No current signs of bleeding. - s/p 1 u PRBCs with improvement. Hgb now stable. - trend CBC. Transfuse Hgb <7 - iron studies consistent with iron deficiency. Started iron supplement. (3) Urinary tract infection: Code(s): N39.0 - Urinary tract infection, site not specified Status: Acute Assessment and Plan: - UA with 2+ LE, WBC 51-100 - urine culture 05/28/25 with Klebsiella pneumoniae and Providencia stuartii both sensitive to cephalosporins - admit WBC 18, afebrile, no leukocytosis - leukocytosis improving - initially started on Merrem. Transitioned to Rocephin. Urine culture with no growth, but leukocytosis improving on Rocephin so will continue for now. (4) RADHA (acute kidney injury): Code(s): N17.9 - Acute kidney failure, unspecified Status: Acute Assessment and Plan: - admit Cr 2.05. Baseline 1.2. S/p IV fluids - Cr improved to 1.30 - renal US with mild L hydronephrosis - voiding appropriately. Bladder scan without retention. - avoid nephrotoxins WBC: 18.9, 11.3, 11.0, 10.6 Lactic: 1.0 07/03 documented: heart rate: 109,101 b/p: 92/67, 96/68 Respirations: 30, 23, 25 IV abx started blood cultures remain preliminary with no growth <Oliva Colbert RN - Last Filed: 07/07/25 14:44> Clarified Diagnosis Clarified Diagnosis: Sepsis POA secondary to UTI vs. wound infection <LEWIS Patrick - Last Filed: 07/15/25 15:35>
--- NOTE | 2025-07-07 15:39 | P.PNGS_ITS ---
Progress Note: A&P Assessment and Plan (1) Pressure ulcers of skin of multiple topographic sites: Code(s): L89.90 - Pressure ulcer of unspecified site, unspecified stage Status: Chronic Assessment and Plan: * Patient stable overnight. WBC slightly elevated. Bun/Cr remain elevated. Te possibility of amputation was discussed with the patient at bedside today. She was reluctant to the idea. Attempted to call patient's legal guardian, Abe Burnham, but was unable to reach him. Will attempt to reach him again tomorrow. * Of note, patient would also benefit from diverting colostomy and suprapubic catheter placement as she is incontinent of urine and stool. Urology was consulted and would be agreeable to place catheter if in conjunction with general surgery procedure. Patient's contractures and anatomy make it difficult for any surgical procedure so proper coordination and planning would be necessary. * Continue daily dressing changes with Dakin's soaked gauze * Continue IV antibiotics. Plan I have discussed the patient's case and plan of care with Dr. Covarrubias. Subjective Subjective Date/Time Seen: 07/07/25 15:39 Patient reports: no new complaints, feels better and bowel movement Interval history: Patient doing well today. No new complaints. Afebrile overnight. WBC count slightly elevated at 12.4. BUN/Cr remain elevated. Exam Const: General: comfortable and no acute distress Eyes: General: appearance normal, both eyes and all related structures Neck: Neck: supple and no JVD Resp: Effort & Inspection: normal respiratory effort Cardio: Rate: regular rate Skin: Other: All wounds covered with appropriate dressings. No issues overnight with wounds. Objective Data Vital Signs Vital Signs: Vital Signs - 24 hr 07/06/25 20:33 07/06/25 20:38 07/07/25 04:16 Temperature 98.2 F 97.2 F L Pulse Rate 117 H 77 95 Respiratory Rate 16 16 Blood Pressure 155/97 H 128/84 Pulse Oximetry 97 99 Oxygen Delivery 07/07/25 08:00 07/07/25 08:47 07/07/25 14:26 Temperature 98.2 F Pulse Rate 95 91 Respiratory Rate 18 Blood Pressure 114/82 Pulse Oximetry 100 Oxygen Delivery Room Air Intake/Output Intake/Output: Intake & Output 07/04/25 07/05/25 07/06/25 07/07/25 23:59 23:59 23:59 23:59 Intake Total 1640 780 770 170 Output Total 1000 325 250 375 Balance 640 394 520 -610 Meds/Results Medications: Active Medications Generic Name Dose Route Start Last Admin Trade Name Freq PRN Reason Stop Dose Admin Albuterol 2.5 mg 07/04/25 01:48 Albuterol Sulfate Neb 2.5 Mg/3 Ml Inh INHALATION Q4HRT PRN Shortness Of Breath Artificial Tears 1 drop 07/04/25 09:00 07/07/25 14:02 Artificial Tears Ophth Soln 15 Ml Bottle EACH EYE 1 drop TID MERLYN Administration Bisacodyl 5 mg 07/04/25 09:00 07/07/25 09:41 Bisacodyl 5 Mg Tablet Ec PO 5 mg DAILY MERLYN Administration Famotidine 20 mg 07/04/25 09:00 07/07/25 08:48 Famotidine 20 Mg Tablet PO 20 mg BID MERLYN Administration Ferrous Sulfate 325 mg 07/05/25 09:00 07/07/25 08:48 Ferrous Sulfate 325 Mg Tablet PO 325 mg DAILY MERLYN Administration Heparin Sodium (Beef Lung) 50 units 07/04/25 09:00 07/07/25 09:31 Heparin Flush 50 Units/5 Ml Syringe IV PUSH 50 units QAM MERLYN Administration Heparin Sodium (Beef Lung) 50 units 07/04/25 08:38 Heparin Flush 50 Units/5 Ml Syringe IV PUSH PRN PRN after intermittent infusion Heparin Sodium (Beef Lung) 50 units 07/04/25 08:38 Heparin Flush 50 Units/5 Ml Syringe IV PUSH PRN PRN after blood draws Heparin Sodium (Porcine) 5,000 units 07/04/25 09:00 07/04/25 12:17 Heparin Sodium 5,000 Units/Ml Vial SUB-Q Not Given On Hold: 07/04/25 10:50 Q12HR MERLYN Heparin Sodium (Porcine) 500 units 07/04/25 08:38 Heparin Sodium Lock Flush 500 Units/5 Ml Syringe IV PUSH PRN PRN see comments below Ceftriaxone Sodium 1 gm/ 50 mls @ 100 mls/hr 07/04/25 09:00 07/07/25 08:48 Sodium Chloride IVPB 100 mls/hr Q24H MERLYN Administration Metoprolol Tartrate 50 mg 07/04/25 09:00 07/07/25 08:47 Metoprolol Tartrate 50 Mg Tab PO 50 mg Q12HR MERLYN Administration Oxycodone HCl 5 mg 07/04/25 01:42 07/05/25 09:33 Oxycodone Hcl (*Crx) 5 Mg Tab Ir PO 5 mg Q8H PRN Administration Pain Polyethylene Glycol 17 gm 07/04/25 09:00 07/07/25 08:48 Polyethylene Glycol 3350 17 Gm Powd.Pack PO 17 gm QAM MERLYN Administration Pregabalin 75 mg 07/04/25 09:00 07/07/25 08:48 Pregabalin (*Crx) 75 Mg Capsule PO 75 mg DAILY MERLYN Administration Quetiapine Fumarate 25 mg 07/04/25 09:00 07/07/25 08:48 Quetiapine Fumarate 25 Mg Tablet PO 25 mg DAILY MERLYN Administration Senna 8.6 mg 07/04/25 01:42 07/05/25 09:32 Sennosides 8.6 Mg Tablet PO 8.6 mg DAILY PRN Administration Constipation Sodium Bicarbonate 325 mg 07/04/25 09:00 07/07/25 08:47 Sodium Bicarbonate Tab 325 Mg Tablet PO 325 mg BID MERLYN Administration Sodium Chloride 10 ml 07/04/25 14:00 07/07/25 14:02 Central Line Flush IV PUSH 10 ml Q8HR MERLYN Administration Sodium Hypochlorite 1 applic 07/06/25 09:00 07/06/25 13:07 Sod Hypochlorite 1/4 Strength 473 Ml TOPICAL 1 applic DAILY MERLYN Administration Thiamine HCl 300 mg 07/04/25 09:00 07/07/25 08:48 Thiamine Hcl 100 Mg Tablet FEED TUBE 300 mg QAM MERYLN Administration Trazodone HCl 50 mg 07/04/25 21:00 07/06/25 20:38 Trazodone Hcl 50 Mg Tablet PO 50 mg HS MERLYN Administration Radiology Results: ITS Impressions Abdomen/Pelvis CT 07/03/25 18:41 IMPRESSION: 1. No acute abnormality. 2. Additional findings as above. 3. Chronic right basilar atelectasis and/or airspace disease. Chest X-Ray 07/03/25 20:35 IMPRESSION: 1. Chronic right basilar atelectasis and/or airspace disease. 2. Similar but less severe findings left lung. Renal Ultrasound 07/04/25 14:59 Impression: Mild left hydronephrosis Labs Labs: Laboratory Results - last 24 hr 07/06/25 07/07/25 07/07/25 18:49 00:35 05:41 WBC 12.4 H RBC 3.29 L Hgb 9.0 L Hct 30.2 L MCV 91.8 MCH 27.4 MCHC 29.8 L RDW 17.0 H Plt Count 299 MPV 10.8 H Immature Gran % (Auto) 0.6 H Neut % (Auto) 76.8 H Lymph % (Auto) 13.0 L [place] % (Auto) 5.4 Eos % (Auto) 4.0 Baso % (Auto) 0.2 Lymph # (Auto) 1.60 [place] # (Auto) 0.7 H Eos # (Auto) 0.5 H Baso # (Auto) 0.0 Abs Immat Gran (auto) 0.07 H Absolute Neuts (auto) 9.5 H Absolute Nucleated RBC 0.000 Band Neutrophils % Not Reportable Nucleated RBC % 0.0 Platelet Estimate Adequate Hypochromasia 1+ Anisocytosis 1+ Schistocytes None seen Sodium 140 Potassium 4.9 Chloride 110 H Carbon Dioxide 23 Anion Gap 7 BUN 52 H Creatinine 1.30 H Estim Creat Clear Calc 32 Estimated GFR 42 L Glucose 100 POC Capillary Glucose 105 106 H Calcium 8.4 Total Bilirubin 0.3 AST 22 ALT 12 Alkaline Phosphatase 176 H C-Reactive Protein 11.7 H Total Protein 8.2 Albumin 3.1 L 07/07/25 12:00 WBC RBC Hgb Hct MCV MCH MCHC RDW Plt Count MPV Immature Gran % (Auto) Neut % (Auto) Lymph % (Auto) [place] % (Auto) Eos % (Auto) Baso % (Auto) Lymph # (Auto) [place] # (Auto) Eos # (Auto) Baso # (Auto) Abs Immat Gran (auto) Absolute Neuts (auto) Absolute Nucleated RBC Band Neutrophils % Nucleated RBC % Platelet Estimate Hypochromasia Anisocytosis Schistocytes Sodium Potassium Chloride Carbon Dioxide Anion Gap BUN Creatinine Estim Creat Clear Calc Estimated GFR Glucose POC Capillary Glucose 115 H Calcium Total Bilirubin AST ALT Alkaline Phosphatase C-Reactive Protein Total Protein Albumin
[2025-07-07] MEDS: SOD HYPOCHLORITE 1/4 STRENGTH 473 ML 1 APPLIC TOPICAL (16:38)
[2025-07-07 20:00] VITALS: PULSE 99; RESP 20; O2SAT 97
[2025-07-07 21:05] VITALS: PULSE 108
[2025-07-07 21:21] VITALS: BP 111/82; PULSE 99; RESP 20; TEMP 36.6; O2SAT 97
[2025-07-08] MEDS: CENTRAL LINE FLUSH 10 ML IV PUSH ×3 (05:58→20:51)
[2025-07-08 06:00] VITALS: BP 109/68; PULSE 78; RESP 18; TEMP 36.6; O2SAT 99
[2025-07-08 07:05] LABS: Hematocrit 31.9 % (37.0-47.0); Hemoglobin 9.5 g/dL (12.0-15.0); Immature Granulocyte Percent A 0.4 % (0-0.5); Lymphocytes Absolute Auto 1.79 K/mm3 (0.9-3.2); Mean Corpuscular HGB Conc 29.8 g/dl (32-36); Mean Corpuscular Hemoglobin 27.4 pg (26-34); Mean Corpuscular Volume 91.9 fl (80-100); Nucleated Red Blood Cells Absolute Auto 0.000 K/mm3 (0.0-0.012); Nucleated Red Blood Cells Perc 0.0 % (0.0-0.2); Platelet Count Result 313 k/mm3 (150-375); Red Blood Count 3.47 M/mm3 (4.2-5.4); White Blood Count 12.1 K/mm3 (4.5-10.0)
[2025-07-08 07:30] LABS: Alanine Aminotransferase 15 U/L (6-35); Albumin Level 3.1 g/dL (3.5-5.1); Alkaline Phosphatase 174 U/L (38-126); Anion Gap 6 mmol/L (4-12); Aspartate Amino Transferase 30 U/L (14-36); Bilirubin,Total 0.3 mg/dL (0.2-1.3); Blood Urea Nitrogen 61 mg/dL (7-17); CRP 11.7 mg/dL (<1.0); Calcium 8.8 mg/dL (8.4-10.2); Carbon Dioxide 25 mmol/L (22-30); Chloride 108 mmol/L (98-107); Estimated CRCL calculation 34 ml/min; Estimated Glomerular Filt Rate 45; Glucose 97 mg/dL (65-110); Potassium 5.4 mmol/L (3.4-5.0); Sodium 139 mmol/L (137-145); Total Protein 8.1 g/dL (6.3-8.2)
[2025-07-08 07:41] LABS: Anisocytosis 1+; Hypochromasia 1+
[2025-07-08 07:43] LABS: Schistocytes None Seen
--- NOTE | 2025-07-08 07:55 | P.PNIM_ITS ---
Progress Note: A&P Assessment and Plan (1) Pressure ulcers of skin of multiple topographic sites: Code(s): L89.90 - Pressure ulcer of unspecified site, unspecified stage Status: Chronic Assessment and Plan: * patient has multiple nonhealing wounds. Surgery followed on recent admit 05/2025. Patient underwent debridement of ischial wound during last hospitalization. * R ankle wound is tunneling to bone. * During last hospitalization, suprapubic catheter placement/diverting ostomy was discussed to aide in healing. Was delayed due to patient's coagulation profiles. Pradaxa has been on hold since that time and PT/INR and PTT have improved. Continue to hold Pradaxa. Consult urology for suprapubic catheter placement. * Concern for wound infection although general surgery feels all wounds appear clean. Leukocytosis initially improving with Rocephin so will continue for now pending surgery recs. WBC 12 today, mildly uptrending. Consider broadening antibiotics if continues to up trend. * General surgery consulted, appreciate recs. Considering R AKA. Patient is a ramos of the [facility] and all consents will need to obtained from her guardian * Pending further recommendations from general surgery regarding possible R AKA (2) Anemia: Code(s): D64.9 - Anemia, unspecified Status: Acute Assessment and Plan: * acute on chronic normocytic anemia * baseline Hgb around 8. Hgb 7.3 on admission and downtrended to 6.8 07/04 * last admit anemia was due to bleeding from wounds. No current signs of bleeding. * s/p 1 u PRBCs with improvement. Hgb now stable. * trend CBC. Transfuse Hgb <7 * iron studies consistent with iron deficiency. Started iron supplement. * 07/08: Hg 9.5 (3) Urinary tract infection: Code(s): N39.0 - Urinary tract infection, site not specified Status: Acute Assessment and Plan: * UA with 2+ LE, WBC 51-100 * urine culture 05/28/25 with Klebsiella pneumoniae and Providencia stuartii both sensitive to cephalosporins * admit WBC 18, afebrile, no leukocytosis * leukocytosis improving * initially started on Merrem. Transitioned to Rocephin. * Urine culture with no growth, but leukocytosis improving on Rocephin so will continue for now. * Urology consulted regarding possible suprapubic catheter placement as she is incontinent of urine/stool (4) RADHA (acute kidney injury): Code(s): N17.9 - Acute kidney failure, unspecified Status: Acute Assessment and Plan: * admit Cr 2.05. Baseline 1.2. S/p IV fluids * Cr improved to 1.30 * renal US with mild L hydronephrosis * voiding appropriately. Bladder scan without retention. * avoid nephrotoxins (5) Essential (primary) hypertension: Code(s): I10 - Essential (primary) hypertension Status: Acute Assessment and Plan: * continue home metoprolol with hold parameters (6) Generalized anxiety disorder: Code(s): F41.1 - Generalized anxiety disorder Status: Acute Assessment and Plan: * continue home citalopram, trazodone (7) Schizoaffective disorder: Code(s): F25.9 - Schizoaffective disorder, unspecified Status: Acute Assessment and Plan: * continue home trazodone (8) Multiple sclerosis: Code(s): G35 - Multiple sclerosis Status: Acute Assessment and Plan: * patient is contracted. * continue Lyrica and oxycodone (9) Gastrointestinal tube in situ: Code(s): Z93.1 - Gastrostomy status Status: Acute Assessment and Plan: * G tube was clogged on admission. GI replaced G tube 07/05 (10) History of pulmonary embolism: Code(s): Z86.711 - Personal history of pulmonary embolism Status: Acute Assessment and Plan: * Pradaxa has been on hold since last admission, will continue to hold in case need for surgical intervention Plan DVT prophylaxis: SCDs Code status: full code Dispo: back to [facility] once medically stable Subjective Date/time seen: 07/08/25 07:55 Interval history: 60-year-old female patient with a history of debility with MS. She was sent h ere from [facility].The patient was recently discharged from this facility from 06/05/2025(for management of decubitus ulcers). 07/08/2025 Patient sitting comfortably in bed at time examination. Denies any pain or complaints at this time. General surgery consulted regarding possible R AKA. Urology consulted as well for possible suprapubic catheter placement. Review of Systems Review of Systems: The patient is a very poor historian. She tells me that she still lives with her brother and sister however she is currently at the custodial. All systems reviewed & are unremarkable except as noted in HPI and below ROS unobtainable: Yes unobtainable due to mental status ENT: Reports Normal hearing present Neurologic: Reports Normal hearing present Exam Narrative: General: NAD, appears chronically debilitated Eyes: EOMI ENT: neck supple Cardiovascular: Regular rate and rhythm Respiratory: Clear to auscultation, respirations even and unlabored on RA Gastrointestinal: Soft, non tender Genitourinary: no suprapubic tenderness Musculoskeletal: No edema. Extremities contracted. Quadriplegic. Skin: warm, dry. Wound dressings CDI. Neuro: Alert. Psych: Mood appropriate Const: General: cooperative, comfortable, no acute distress, well developed, awake, Physically active, ill appearing, average body habitus and well nourished Nutritional Appearance: average body habitus and well nourished Orientation/consciousness: oriented to person Other: Contracted arms and legs. HENMT: Head: normal to inspection, No palpable skull fracture present, normocephalic, atraumatic and abrasion Ears: hearing grossly normal bilat erally and external ears normal Eyes: General: appearance normal, both eyes and all related structures Alignment and Position: alignment normal Periorbital: periorbital findings normal Eyelids: eyelids normal Conjunctivae: conjunctivae normal Sclera: sclerae normal Cornea: corneas normal Pupils: Equal, round and reactive pupils present and Pupil accommodation reflex normal EOM: EOMs intact bilaterally Neck: Neck: normal visual inspection, full ROM, no lymphadenopathy and trachea midline Chest: Chest palpation & inspection: normal inspection of the chest Resp: Effort & Inspection: normal respiratory effort Auscultation: clear to auscultation bilaterally Percussion: percussion normal Cardio: Palpation: normal PMI Rate: regular rate Rhythm: regular rhythm Heart sounds: S1 normal heart sound present and S2 normal heart sound present Peripheral pulses: Peripheral pulses 2+ throughout GI: Inspection: normal to inspection Auscultation: normal bowel sounds Rectal Exam: deferred : General: Yes no CVA tenderness Back/Spine/Pelvis: Back: no CVA tenderness Cervical Spine: cervical ROM normal Skin: General skin exam: normal color Lesions: no lesions Rashes: no rashes Trauma: no lacerations or abrasions Wounds: no wounds Hair: normal Nails: normal Other: She has a dressing to her left foot and per records she has a sacral ulcer but I was not able to roll her over and looked at this time. Neuro: General: oriented to person Cranial nerves: Yes Equal, round and reactive pupils present and Yes Normal hearing present Extrem: General: normal to inspection Right upper extremity: normal to inspection and shoulder/upper arm Left upper extremity: normal to inspection and shoulder/upper arm Right lower extremity: normal to inspection Left lower extremity: normal to inspection Psych: Appearance: grossly normal Mental Status: mental status grossly normal Speech and movement: Normal speech and movement present Affect: normal affect Attitude: cooperative Thought process: Normal thought process present Insight: Poor insight present (Psych) Judgement: Poor judgement present (Psych) Objective Data Vital Signs Vital Signs: Vital Signs - 24 hr 07/07/25 08:00 07/07/25 08:47 07/07/25 14:26 Temperature 98.2 F Pulse Rate 95 91 Respiratory Rate 18 Blood Pressure 114/82 Pulse Oximetry 100 Oxygen Delivery Room Air 07/07/25 20:00 07/07/25 21:05 07/07/25 21:21 Temperature 97.9 F Pulse Rate 99 108 H 99 Respiratory Rate 20 20 Blood Pressure 111/82 Pulse Oximetry 97 97 Oxygen Delivery Room Air 07/08/25 06:00 Temperature 98 F Pulse Rate 78 Respiratory Rate 18 Blood Pressure 109/68 Pulse Oximetry 99 Oxygen Delivery Intake/Output Intake/Output: Intake & Output 07/05/25 07/06/25 07/07/25 07/08/25 23:59 23:59 23:59 23:59 Intake Total 780 684 028 6643 Output Total 325 250 575 450 Balance 455 199 814 0358 Meds/Results Medications: Active Medications Generic Name Dose Route Start Last Admin Trade Name Freq PRN Reason Stop Dose Admin Albuterol 2.5 mg 07/04/25 01:48 Albuterol Sulfate Neb 2.5 Mg/3 Ml Inh INHALATION Q4HRT PRN Shortness Of Breath Artificial Tears 1 drop 07/04/25 09:00 07/07/25 16:39 Artificial Tears Ophth Soln 15 Ml Bottle EACH EYE 1 drop TID MERLYN Administration Bisacodyl 5 mg 07/04/25 09:00 07/07/25 09:41 Bisacodyl 5 Mg Tablet Ec PO 5 mg DAILY MERLYN Administration Famotidine 20 mg 07/04/25 09:00 07/07/25 16:39 Famotidine 20 Mg Tablet PO 20 mg BID MERLYN Administration Ferrous Sulfate 325 mg 07/05/25 09:00 07/07/25 08:48 Ferrous Sulfate 325 Mg Tablet PO 325 mg DAILY MERLYN Administration Heparin Sodium (Beef Lung) 50 units 07/04/25 09:00 07/07/25 09:31 Heparin Flush 50 Units/5 Ml Syringe IV PUSH 50 units QAM MERLYN Administration Heparin Sodium (Beef Lung) 50 units 07/04/25 08:38 Heparin Flush 50 Units/5 Ml Syringe IV PUSH PRN PRN after intermittent infusion Heparin Sodium (Beef Lung) 50 units 07/04/25 08:38 Heparin Flush 50 Units/5 Ml Syringe IV PUSH PRN PRN after blood draws Heparin Sodium (Porcine) 5,000 units 07/04/25 09:00 07/04/25 12:17 Heparin Sodium 5,000 Units/Ml Vial SUB-Q Not Given On Hold: 07/04/25 10:50 Q12HR MERLYN Heparin Sodium (Porcine) 500 units 07/04/25 08:38 Heparin Sodium Lock Flush 500 Units/5 Ml Syringe IV PUSH PRN PRN see comments below Ceftriaxone Sodium 1 gm/ 50 mls @ 100 mls/hr 07/04/25 09:00 07/07/25 08:48 Sodium Chloride IVPB 100 mls/hr Q24H MERLYN Administration Metoprolol Tartrate 50 mg 07/04/25 09:00 07/07/25 21:05 Metoprolol Tartrate 50 Mg Tab PO 50 mg Q12HR MERLYN Administration Oxycodone HCl 5 mg 07/04/25 01:42 07/05/25 09:33 Oxycodone Hcl (*Crx) 5 Mg Tab Ir PO 5 mg Q8H PRN Administration Pain Polyethylene Glycol 17 gm 07/04/25 09:00 07/07/25 08:48 Polyethylene Glycol 3350 17 Gm Powd.Pack PO 17 gm QAM MERLYN Administration Pregabalin 75 mg 07/04/25 09:00 07/07/25 08:48 Pregabalin (*Crx) 75 Mg Capsule PO 75 mg DAILY MERLYN Administration Quetiapine Fumarate 25 mg 07/04/25 09:00 07/07/25 08:48 Quetiapine Fumarate 25 Mg Tablet PO 25 mg DAILY MERLYN Administration Senna 8.6 mg 07/04/25 01:42 07/05/25 09:32 Sennosides 8.6 Mg Tablet PO 8.6 mg DAILY PRN Administration Constipation Sodium Bicarbonate 325 mg 07/04/25 09:00 07/07/25 16:39 Sodium Bicarbonate Tab 325 Mg Tablet PO 325 mg BID MERLYN Administration Sodium Chloride 10 ml 07/04/25 14:00 07/08/25 05:58 Central Line Flush IV PUSH 10 ml Q8HR MERLYN Administration Sodium Hypochlorite 1 applic 07/06/25 09:00 07/07/25 16:38 Sod Hypochlorite 1/4 Strength 473 Ml TOPICAL 1 applic DAILY MERLYN Administration Sodium Zirconium Cyclosilicate 5 gm 07/08/25 08:00 Sodium Zirconium Cyclosilicate 5 Gm Powd.Pack PO 07/08/25 08:01 ONCE ONE Thiamine HCl 300 mg 07/04/25 09:00 07/07/25 08:48 Thiamine Hcl 100 Mg Tablet FEED TUBE 300 mg QAM MERLYN Administration Trazodone HCl 50 mg 07/04/25 21:00 07/07/25 21:05 Trazodone Hcl 50 Mg Tablet PO 50 mg HS MERLYN Administration Radiology Results: ITS Impressions Abdomen/Pelvis CT 07/03/25 18:41 IMPRESSION: 1. No acute abnormality. 2. Additional findings as above. 3. Chronic right basilar atelectasis and/or airspace disease. Chest X-Ray 07/03/25 20:35 IMPRESSION: 1. Chronic right basilar atelectasis and/or airspace disease. 2. Similar but less severe findings left lung. Renal Ultrasound 07/04/25 14:59 Impression: Mild left hydronephrosis Labs Labs: Laboratory Results - last 24 hr 07/07/25 07/07/25 07/07/25 12:00 17:09 20:10 WBC RBC Hgb Hct MCV MCH MCHC RDW Plt Count MPV Immature Gran % (Auto) Neut % (Auto) Lymph % (Auto) [place] % (Auto) Eos % (Auto) Baso % (Auto) Lymph # (Auto) [place] # (Auto) Eos # (Auto) Baso # (Auto) Abs Immat Gran (auto) Absolute Neuts (auto) Absolute Nucleated RBC Band Neutrophils % Nucleated RBC % Platelet Estimate Hypochromasia Anisocytosis Schistocytes Sodium Potassium Chloride Carbon Dioxide Anion Gap BUN Creatinine Estim Creat Clear Calc Estimated GFR Glucose POC Capillary Glucose 115 H 117 H 119 H Calcium Total Bilirubin AST ALT Alkaline Phosphatase C-Reactive Protein Total Protein Albumin 07/08/25 06:00 WBC 12.1 H RBC 3.47 L Hgb 9.5 L Hct 31.9 L MCV 91.9 MCH 27.4 MCHC 29.8 L RDW 17.3 H Plt Count 313 MPV 11.6 H Immature Gran % (Auto) 0.4 Neut % (Auto) 74.0 H Lymph % (Auto) 14.8 L [place] % (Auto) 6.0 Eos % (Auto) 4.6 H Baso % (Auto) 0.2 Lymph # (Auto) 1.79 [place] # (Auto) 0.7 H Eos # (Auto) 0.6 H Baso # (Auto) 0.0 Abs Immat Gran (auto) 0.05 H Absolute Neuts (auto) 8.9 H Absolute Nucleated RBC 0.000 Band Neutrophils % Not Reportable Nucleated RBC % 0.0 Platelet Estimate Adequate Hypochromasia 1+ Anisocytosis 1+ Schistocytes None seen Sodium 139 Potassium 5.4 H Chloride 108 H Carbon Dioxide 25 Anion Gap 6 BUN 61 H Creatinine 1.22 H Estim Creat Clear Calc 34 Estimated GFR 45 L Glucose 97 POC Capillary Glucose Calcium 8.8 Total Bilirubin 0.3 AST 30 ALT 15 Alkaline Phosphatase 174 H C-Reactive Protein 11.7 H Total Protein 8.1 Albumin 3.1 L Quality VTE Prophylaxis VTE prophylaxis: mechanical ordered
[2025-07-08] MEDS: THIAMINE HCL 100 MG TABLET 300 MG FEED TUBE (09:08)
[2025-07-08] MEDS: FERROUS SULFATE 325 MG TABLET PO (09:08)
[2025-07-08] MEDS: FAMOTIDINE 20 MG TABLET PO ×2 (09:08→16:19)
[2025-07-08] MEDS: SODIUM BICARBONATE TAB 325 MG TABLET PO ×2 (09:08→16:19)
[2025-07-08] MEDS: PREGABALIN (*CRX) 75 MG CAPSULE PO (09:08)
[2025-07-08] MEDS: METOPROLOL TARTRATE 50 MG TAB PO ×2 (09:09→20:51)
[2025-07-08] MEDS: cefTRIAXone 1 GM in SODIUM CHLORIDE 0.9% IV 50 ML 100 ML IVPB (09:09)
[2025-07-08] MEDS: SODIUM ZIRCONIUM CYCLOSILICATE 5 GM POWD.PACK PO (09:09)
[2025-07-08] MEDS: SOD HYPOCHLORITE 1/4 STRENGTH 473 ML 1 APPLIC TOPICAL (09:13)
[2025-07-08] MEDS: ARTIFICIAL TEARS OPHTH SOLN 15 ML BOTTLE 1 DROP EACH EYE ×3 (09:13→16:18)
[2025-07-08] MEDS: BISACODYL 5 MG TABLET EC PO (09:14)
--- NOTE | 2025-07-08 12:38 | P.PNGS_ITS ---
Progress Note: A&P Assessment and Plan (1) Pressure ulcers of skin of multiple topographic sites: Code(s): L89.90 - Pressure ulcer of unspecified site, unspecified stage Status: Chronic Assessment and Plan: * Patient stable overnight. WBC 12.1. Bun/Cr remain elevated. Spoke with patient's state-appointed POA today about the likelihood of patient requiring right AKA. He is requesting a summary detailing patient's condition and our plans moving forward. Will send this today. * Of note, patient would also benefit from diverting colostomy and suprapubic catheter placement as she is incontinent of urine and stool. Urology was consulted and would be agreeable to place catheter if in conjunction with general surgery procedure. Patient's contractures and anatomy make it difficult for any surgical procedure so proper coordination and planning would be necessary. * Continue daily dressing changes with Dakin's soaked gauze * Continue IV antibiotics. Plan I have discussed the patient's case and plan of care with Dr. Covarrubias. Subjective Subjective Date/Time Seen: 07/08/25 12:38 Patient reports: no new complaints and tolerating a regular diet Interval history: Patient has no new complaints today. Tolerating diet. WBC 12.1. Wounds appear stable. Exam Const: General: comfortable and no acute distress Skin: Other: Stage III right posterior scapula decubitus ulcer measuring 5 x 3 x 0.5 cm with 100% pink tissue. No purulent drainage or surrounding erythema of the skin. Stage IV sacral decubitus ulcer measuring 4 x 3 x 1.5 cm with 100% pink healthy tissue, no bone exposed, no purulent drainage. No surrounding erythema the skin. Stage III left ischial decubitus ulcer measuring 2 x 2 x 1.5 cm with 100% pink healthy tissue, no purulent drainage. No surrounding erythema of the skin. Stage III right ischial decubitus ulcer measuring 6 x 4 x 2 cm with 90% healthy pink tissue and about 10% yellow slough. Drainage on the dressing is yellow exudate that is easily wiped away. No purulent drainage. No surrounding erythema. Stage III right posterior thigh decubitus ulcer which is below the greater trochanter, measuring 3 x 4 x 1 cm with 100% yellow slough, wound bed is firm, no crepitus, no purulence drainage, no surrounding erythema the skin. Bilateral lower extremities are contracted with deformities of her feet. There is a stage III right heel ulcer measuring 6 x 4 x 0.3 cm with 70% healthy pink tissue and a central area that is a soft superficial crain eschar in about 30% of the wound. No purulent drainage, no bone exposed. There is another large wound on the right dorsal foot extending over the lateral malleolus measuring 11 x 10 cm with about 50% pink healthy tissue, but the center of the wound has loose yellow necrotic tissue with severed tendons visible, bone at the lateral malleolus is exposed and there is clear fluid draining from what appears to be the ankle joint that is exposed at the center of the wound. The foot appears deformed, but there is no significant warmth or erythema of the foot. No purulence drainage coming from either wound on the right foot. She has no movement of her bilateral lower extremities. Left foot has no wounds. Her sacral and ischial wounds were saturated in urine on exam. Purewick is positional and not functioning appropriately likely due to her contractions and positioning in bed. Objective Data Vital Signs Vital Signs: Vital Signs - 24 hr 07/07/25 14:26 07/07/25 20:00 07/07/25 21:05 Temperature 98.2 F Pulse Rate 91 99 108 H Respiratory Rate 18 20 Blood Pressure 114/82 Pulse Oximetry 100 97 Oxygen Delivery Room Air 07/07/25 21:21 07/08/25 06:00 07/08/25 08:00 Temperature 97.9 F 98 F Pulse Rate 99 78 Respiratory Rate 20 18 Blood Pressure 111/82 109/68 Pulse Oximetry 97 99 Oxygen Delivery Room Air Intake/Output Intake/Output: Intake & Output 07/05/25 07/06/25 07/07/25 07/08/25 23:59 23:59 23:59 23:59 Intake Total 780 145 801 7253 Output Total 325 250 575 450 Balance 455 875 676 7431 Meds/Results Medications: Active Medications Generic Name Dose Route Start Last Admin Trade Name Freq PRN Reason Stop Dose Admin Albuterol 2.5 mg 07/04/25 01:48 Albuterol Sulfate Neb 2.5 Mg/3 Ml Inh INHALATION Q4HRT PRN Shortness Of Breath Artificial Tears 1 drop 07/04/25 09:00 07/08/25 09:13 Artificial Tears Ophth Soln 15 Ml Bottle EACH EYE 1 drop TID MERLYN Administration Bisacodyl 5 mg 07/04/25 09:00 07/08/25 09:14 Bisacodyl 5 Mg Tablet Ec PO 5 mg DAILY MERLYN Administration Famotidine 20 mg 07/04/25 09:00 07/08/25 09:08 Famotidine 20 Mg Tablet PO 20 mg BID MERLYN Administration Ferrous Sulfate 325 mg 07/05/25 09:00 07/08/25 09:08 Ferrous Sulfate 325 Mg Tablet PO 325 mg DAILY MERLYN Administration Heparin Sodium (Beef Lung) 50 units 07/04/25 09:00 07/08/25 09:09 Heparin Flush 50 Units/5 Ml Syringe IV PUSH 50 units QAM MERLYN Administration Heparin Sodium (Beef Lung) 50 units 07/04/25 08:38 Heparin Flush 50 Units/5 Ml Syringe IV PUSH PRN PRN after intermittent infusion Heparin Sodium (Beef Lung) 50 units 07/04/25 08:38 Heparin Flush 50 Units/5 Ml Syringe IV PUSH PRN PRN after blood draws Heparin Sodium (Porcine) 5,000 units 07/04/25 09:00 07/04/25 12:17 Heparin Sodium 5,000 Units/Ml Vial SUB-Q Not Given On Hold: 07/04/25 10:50 Q12HR MERLYN Heparin Sodium (Porcine) 500 units 07/04/25 08:38 Heparin Sodium Lock Flush 500 Units/5 Ml Syringe IV PUSH PRN PRN see comments below Ceftriaxone Sodium 1 gm/ 50 mls @ 100 mls/hr 07/04/25 09:00 07/08/25 09:09 Sodium Chloride IVPB 100 mls/hr Q24H MERLYN Administration Metoprolol Tartrate 50 mg 07/04/25 09:00 07/08/25 09:09 Metoprolol Tartrate 50 Mg Tab PO 50 mg Q12HR MERLYN Administration Oxycodone HCl 5 mg 07/04/25 01:42 07/05/25 09:33 Oxycodone Hcl (*Crx) 5 Mg Tab Ir PO 5 mg Q8H PRN Administration Pain Polyethylene Glycol 17 gm 07/04/25 09:00 07/08/25 09:09 Polyethylene Glycol 3350 17 Gm Powd.Pack PO 17 gm QAM MERLYN Administration Pregabalin 75 mg 07/04/25 09:00 07/08/25 09:08 Pregabalin (*Crx) 75 Mg Capsule PO 75 mg DAILY MERLYN Administration Quetiapine Fumarate 25 mg 07/04/25 09:00 07/08/25 09:08 Quetiapine Fumarate 25 Mg Tablet PO 25 mg DAILY MERLYN Administration Senna 8.6 mg 07/04/25 01:42 07/05/25 09:32 Sennosides 8.6 Mg Tablet PO 8.6 mg DAILY PRN Administration Constipation Sodium Bicarbonate 325 mg 07/04/25 09:00 07/08/25 09:08 Sodium Bicarbonate Tab 325 Mg Tablet PO 325 mg BID MERLYN Administration Sodium Chloride 10 ml 07/04/25 14:00 07/08/25 05:58 Central Line Flush IV PUSH 10 ml Q8HR MERLYN Administration Sodium Hypochlorite 1 applic 07/06/25 09:00 07/08/25 09:13 Sod Hypochlorite 1/4 Strength 473 Ml TOPICAL 1 applic DAILY MERLYN Administration Thiamine HCl 300 mg 07/04/25 09:00 07/08/25 09:08 Thiamine Hcl 100 Mg Tablet FEED TUBE 300 mg QAM MERLYN Administration Trazodone HCl 50 mg 07/04/25 21:00 07/07/25 21:05 Trazodone Hcl 50 Mg Tablet PO 50 mg HS MERLYN Administration Radiology Results: ITS Impressions Abdomen/Pelvis CT 07/03/25 18:41 IMPRESSION: 1. No acute abnormality. 2. Additional findings as above. 3. Chronic right basilar atelectasis and/or airspace disease. Chest X-Ray 07/03/25 20:35 IMPRESSION: 1. Chronic right basilar atelectasis and/or airspace disease. 2. Similar but less severe findings left lung. Renal Ultrasound 07/04/25 14:59 Impression: Mild left hydronephrosis Labs Labs: Laboratory Results - last 24 hr 07/07/25 07/07/25 07/08/25 17:09 20:10 06:00 WBC 12.1 H RBC 3.47 L Hgb 9.5 L Hct 31.9 L MCV 91.9 MCH 27.4 MCHC 29.8 L RDW 17.3 H Plt Count 313 MPV 11.6 H Immature Gran % (Auto) 0.4 Neut % (Auto) 74.0 H Lymph % (Auto) 14.8 L Page % (Auto) 6.0 Eos % (Auto) 4.6 H Baso % (Auto) 0.2 Lymph # (Auto) 1.79 Page # (Auto) 0.7 H Eos # (Auto) 0.6 H Baso # (Auto) 0.0 Abs Immat Gran (auto) 0.05 H Absolute Neuts (auto) 8.9 H Absolute Nucleated RBC 0.000 Band Neutrophils % Not Reportable Nucleated RBC % 0.0 Platelet Estimate Adequate Hypochromasia 1+ Anisocytosis 1+ Schistocytes None seen Sodium 139 Potassium 5.4 H Chloride 108 H Carbon Dioxide 25 Anion Gap 6 BUN 61 H Creatinine 1.22 H Estim Creat Clear Calc 34 Estimated GFR 45 L Glucose 97 POC Capillary Glucose 117 H 119 H Calcium 8.8 Total Bilirubin 0.3 AST 30 ALT 15 Alkaline Phosphatase 174 H C-Reactive Protein 11.7 H Total Protein 8.1 Albumin 3.1 L 07/08/25 12:02 WBC RBC Hgb Hct MCV MCH MCHC RDW Plt Count MPV Immature Gran % (Auto) Neut % (Auto) Lymph % (Auto) Page % (Auto) Eos % (Auto) Baso % (Auto) Lymph # (Auto) Page # (Auto) Eos # (Auto) Baso # (Auto) Abs Immat Gran (auto) Absolute Neuts (auto) Absolute Nucleated RBC Band Neutrophils % Nucleated RBC % Platelet Estimate Hypochromasia Anisocytosis Schistocytes Sodium Potassium Chloride Carbon Dioxide Anion Gap BUN Creatinine Estim Creat Clear Calc Estimated GFR Glucose POC Capillary Glucose 104 Calcium Total Bilirubin AST ALT Alkaline Phosphatase C-Reactive Protein Total Protein Albumin
[2025-07-08 13:59] VITALS: BP 105/86; PULSE 104; RESP 18; TEMP 37.1; O2SAT 98
[2025-07-08 20:00] VITALS: BP 121/80; PULSE 125; RESP 18; RESP 30; TEMP 38.3; O2SAT 98
[2025-07-08 20:51] VITALS: PULSE 125; TEMP 38.3
[2025-07-08] MEDS: ACETAMINOPHEN ELIXIR 325 MG/10.15 ML UDC 650 MG PO (20:51)
[2025-07-08 23:50] VITALS: TEMP 37
[2025-07-09 05:35] VITALS: BP 145/70; PULSE 98; RESP 16; TEMP 36.1; O2SAT 99
[2025-07-09 05:44] LABS: Hematocrit 28.9 % (37.0-47.0); Hemoglobin 8.7 g/dL (12.0-15.0); Immature Granulocyte Percent A 0.3 % (0-0.5); Lymphocytes Absolute Auto 1.70 K/mm3 (0.9-3.2); Mean Corpuscular HGB Conc 30.1 g/dl (32-36); Mean Corpuscular Hemoglobin 27.6 pg (26-34); Mean Corpuscular Volume 91.7 fl (80-100); Nucleated Red Blood Cells Absolute Auto 0.000 K/mm3 (0.0-0.012); Nucleated Red Blood Cells Perc 0.0 % (0.0-0.2); Platelet Count Result 265 k/mm3 (150-375); Red Blood Count 3.15 M/mm3 (4.2-5.4); White Blood Count 10.7 K/mm3 (4.5-10.0)
[2025-07-09 06:05] LABS: Alanine Aminotransferase 18 U/L (6-35); Albumin Level 3.0 g/dL (3.5-5.1); Alkaline Phosphatase 157 U/L (38-126); Anion Gap 4 mmol/L (4-12); Aspartate Amino Transferase 33 U/L (14-36); Bilirubin,Total 0.4 mg/dL (0.2-1.3); Blood Urea Nitrogen 62 mg/dL (7-17); Calcium 8.7 mg/dL (8.4-10.2); Carbon Dioxide 25 mmol/L (22-30); Chloride 108 mmol/L (98-107); Estimated CRCL calculation 33 ml/min; Estimated Glomerular Filt Rate 43; Glucose 100 mg/dL (65-110); Potassium 5.6 mmol/L (3.4-5.0); Sodium 137 mmol/L (137-145); Total Protein 7.5 g/dL (6.3-8.2)
[2025-07-09 06:20] LABS: CRP 12.8 mg/dL (<1.0)
[2025-07-09] MEDS: CENTRAL LINE FLUSH 10 ML IV PUSH ×3 (06:22→21:50)
--- NOTE | 2025-07-09 07:02 | P.PNIM_ITS ---
Progress Note: A&P Assessment and Plan (1) Pressure ulcers of skin of multiple topographic sites: Code(s): L89.90 - Pressure ulcer of unspecified site, unspecified stage Status: Chronic Assessment and Plan: * patient has multiple nonhealing wounds. Surgery followed on recent admit 05/2025. Patient underwent debridement of ischial wound during last hospitalization. * R ankle wound is tunneling to bone. * During last hospitalization, suprapubic catheter placement/diverting ostomy was discussed to aide in healing. Was delayed due to patient's coagulation profiles. Pradaxa has been on hold since that time and PT/INR and PTT have improved. Continue to hold Pradaxa. Consult urology for suprapubic catheter placement. * Concern for wound infection although general surgery feels all wounds appear clean. Leukocytosis initially improving with Rocephin so will continue for now pending surgery recs. WBC 12 today, mildly uptrending. Consider broadening antibiotics if continues to up trend. * General surgery consulted, appreciate recs. Considering R AKA. Patient is a ramos of the [facility] and all consents will need to obtained from her guardian * Pending further recommendations from general surgery regarding possible R AKA * Will need above the knee amputation if approved by legal guardian (2) Anemia: Code(s): D64.9 - Anemia, unspecified Status: Acute Assessment and Plan: * acute on chronic normocytic anemia * baseline Hgb around 8. Hgb 7.3 on admission and downtrended to 6.8 07/04 * last admit anemia was due to bleeding from wounds. No current signs of bleeding. * s/p 1 u PRBCs with improvement. Hgb now stable. * trend CBC. Transfuse Hgb <7 * iron studies consistent with iron deficiency. Started iron supplement. * 07/09: Hg 8.7 (3) Urinary tract infection: Code(s): N39.0 - Urinary tract infection, site not specified Status: Acute Assessment and Plan: * UA with 2+ LE, WBC 51-100 * urine culture 05/28/25 with Klebsiella pneumoniae and Providencia stuartii both sensitive to cephalosporins * admit WBC 18, afebrile, no leukocytosis * leukocytosis improving * initially started on Merrem. Transitioned to Rocephin. * Urine culture with no growth, but leukocytosis improving on Rocephin so will continue for now. * Urology consulted regarding possible suprapubic catheter placement as she is incontinent of urine/stool (4) RADHA (acute kidney injury): Code(s): N17.9 - Acute kidney failure, unspecified Status: Acute Assessment and Plan: * admit Cr 2.05. Baseline 1.2. S/p IV fluids * Cr improved to 1.30 * renal US with mild L hydronephrosis * voiding appropriately. Bladder scan without retention. * avoid nephrotoxins (5) Essential (primary) hypertension: Code(s): I10 - Essential (primary) hypertension Status: Acute Assessment and Plan: * continue home metoprolol with hold parameters (6) Generalized anxiety disorder: Code(s): F41.1 - Generalized anxiety disorder Status: Acute Assessment and Plan: * continue home citalopram, trazodone (7) Schizoaffective disorder: Code(s): F25.9 - Schizoaffective disorder, unspecified Status: Acute Assessment and Plan: * continue home trazodone (8) Multiple sclerosis: Code(s): G35 - Multiple sclerosis Status: Acute Assessment and Plan: * patient is contracted. * continue Lyrica and oxycodone (9) Gastrointestinal tube in situ: Code(s): Z93.1 - Gastrostomy status Status: Acute Assessment and Plan: * G tube was clogged on admission. GI replaced G tube 07/05 (10) History of pulmonary embolism: Code(s): Z86.711 - Personal history of pulmonary embolism Status: Acute Assessment and Plan: * Pradaxa has been on hold since last admission, will continue to hold in case need for surgical intervention Plan DVT prophylaxis: SCDs Code status: full code Dispo: back to [facility] once medically stable Subjective Date/time seen: 07/09/25 07:02 Interval history: 60-year-old female patient with a history of debility with MS. She was sent here from [facility].The patient was recently discharged from this facility from 06/05/2025(for management of decubitus ulcers). 07/09/2025 Patient sitting comfortably in bed at time examination. General surgery recommending diverting colostomy and suprapubic catheter (for which urology has been consulted). Patient's POA has had documents faxed to him for decision to be made. CRP increased from 11.7 -> 12.8. Vitals and blood work otherwise remain stable and patient not endorsing any complaints or pain at this time. Review of Systems Review of Systems: The patient is a very poor historian. She tells me that she still lives with her brother and sister however she is currently at the care home. All systems reviewed & are unremarkable except as noted in HPI and below ROS unobtainable: Yes unobtainable due to mental status ENT: Reports Normal hearing present Neurologic: Reports Normal hearing present Exam Narrative: General: NAD, appears chronically debilitated Eyes: EOMI ENT: neck supple Cardiovascular: Regular rate and rhythm Respiratory: Clear to auscultation, respirations even and unlabored on RA Gastrointestinal: Soft, non tender Genitourinary: no suprapubic tenderness Musculoskeletal: No edema. Extremities contracted. Quadriplegic. Skin: warm, dry. Wound dressings CDI. Neuro: Alert. Psych: Mood appropriate Const: General: cooperative, comfortable, no acute distress, well developed, awake, Physically active, ill appearing, average body habitus and well nourished Nutritional Appearance: average body habitus and well nourished Orientation/consciousness: oriented to person Other: Contracted arms and legs. HENMT: Head: normal to inspection, No palpable skull fracture present, normocephalic, atraumatic and abrasion Ears: hearing grossly normal bilaterally and external ears normal Eyes: General: appearance normal, both eyes and all related structures Al ignment and Position: alignment normal Periorbital: periorbital findings normal Eyelids: eyelids normal Conjunctivae: conjunctivae normal Sclera: sclerae normal Cornea: corneas normal Pupils: Equal, round and reactive pupils present and Pupil accommodation reflex normal EOM: EOMs intact bilaterally Neck: Neck: normal visual inspection, full ROM, no lymphadenopathy and trachea midline Chest: Chest palpation & inspection: normal inspection of the chest Resp: Effort & Inspection: normal respiratory effort Auscultation: clear to auscultation bilaterally Percussion: percussion normal Cardio: Palpation: normal PMI Rate: regular rate Rhythm: regular rhythm Heart sounds: S1 normal heart sound present and S2 normal heart sound present Peripheral pulses: Peripheral pulses 2+ throughout GI: Inspection: normal to inspection Auscultation: normal bowel sounds Rectal Exam: deferred : General: Yes no CVA tenderness Back/Spine/Pelvis: Back: no CVA tenderness Cervical Spine: cervical ROM normal Skin: General skin exam: normal color Lesions: no lesions Rashes: no rashes Trauma: no lacerations or abrasions Wounds: no wounds Hair: normal Nails: normal Other: She has a dressing to her left foot and per records she has a sacral ulcer but I was not able to roll her over and looked at this time. Neuro: General: oriented to person Cranial nerves: Yes Equal, round and reactive pupils present and Yes Normal hearing present Extrem: General: normal to inspection Right upper extremity: normal to inspection and shoulder/upper arm Left upper extremity: normal to inspection and shoulder/upper arm Right lower extremity: normal to inspection Left lower extremity: normal to inspection Psych: Appearance: grossly normal Mental Status: mental status grossly normal Speech and movement: Normal speech and movement present Affect: normal affect Attitude: cooperative Thought process: Normal thought process present Insight: Poor insight present (Psych) Judgement: Poor judgement present (Psych) Objective Data Vital Signs Vital Signs: Vital Signs - 24 hr 07/08/25 08:00 07/08/25 13:59 07/08/25 20:00 Temperature 98.7 F Pulse Rate 104 H 125 H Respiratory Rate 18 18 Blood Pressure 105/86 Pulse Oximetry 98 98 Oxygen Delivery Room Air Room Air 07/08/25 20:00 07/08/25 20:51 07/08/25 20:51 Temperature 101 F H 101 F H Pulse Rate 125 H 125 H Respiratory Rate 30 H Blood Pressure 121/80 Pulse Oximetry 98 Oxygen Delivery 07/08/25 23:50 07/09/25 05:35 Temperature 98.6 F 96.9 F L Pulse Rate 98 Respiratory Rate 16 Blood Pressure 145/70 H Pulse Oximetry 99 Oxygen Delivery Intake/Output Intake/Output: Intake & Output 07/06/25 07/07/25 07/08/25 07/09/25 23:59 23:59 23:59 23:59 Intake Total 576 466 5889 2023 Output Total 250 575 450 Balance 967 480 2765 2023 Meds/Results Medications: Active Medications Generic Name Dose Route Start Last Admin Trade Name Freq PRN Reason Stop Dose Admin Acetaminophen 650 mg 07/08/25 20:08 07/08/25 20:51 Acetaminophen Elixir 325 Mg/10.15 Ml Udc PO 650 mg Q6H PRN Administration Mild Pain (1-3) or Fever Albuterol 2.5 mg 07/04/25 01:48 Albuterol Sulfate Neb 2.5 Mg/3 Ml Inh INHALATION Q4HRT PRN Shortness Of Breath Artificial Tears 1 drop 07/04/25 09:00 07/08/25 16:18 Artificial Tears Ophth Soln 15 Ml Bottle EACH EYE 1 drop TID MERLYN Administration Bisacodyl 5 mg 07/04/25 09:00 07/08/25 09:14 Bisacodyl 5 Mg Tablet Ec PO 5 mg DAILY MERLYN Administration Famotidine 20 mg 07/04/25 09:00 07/08/25 16:19 Famotidine 20 Mg Tablet PO 20 mg BID MERLYN Administration Ferrous Sulfate 325 mg 07/05/25 09:00 07/08/25 09:08 Ferrous Sulfate 325 Mg Tablet PO 325 mg DAILY MERLYN Administration Heparin Sodium (Beef Lung) 50 units 07/04/25 09:00 07/08/25 09:09 Heparin Flush 50 Units/5 Ml Syringe IV PUSH 50 units QAM MERLYN Administration Heparin Sodium (Beef Lung) 50 units 07/04/25 08:38 Heparin Flush 50 Units/5 Ml Syringe IV PUSH PRN PRN after intermittent infusion Heparin Sodium (Beef Lung) 50 units 07/04/25 08:38 Heparin Flush 50 Units/5 Ml Syringe IV PUSH PRN PRN after blood draws Heparin Sodium (Porcine) 5,000 units 07/04/25 09:00 07/04/25 12:17 Heparin Sodium 5,000 Units/Ml Vial SUB-Q Not Given On Hold: 07/04/25 10:50 Q12HR MERLYN Heparin Sodium (Porcine) 500 units 07/04/25 08:38 Heparin Sodium Lock Flush 500 Units/5 Ml Syringe IV PUSH PRN PRN see comments below Ceftriaxone Sodium 1 gm/ 50 mls @ 100 mls/hr 07/04/25 09:00 07/08/25 09:09 Sodium Chloride IVPB 100 mls/hr Q24H MERLYN Administration Metoprolol Tartrate 50 mg 07/04/25 09:00 07/08/25 20:51 Metoprolol Tartrate 50 Mg Tab PO 50 mg Q12HR MERLYN Administration Oxycodone HCl 5 mg 07/04/25 01:42 07/05/25 09:33 Oxycodone Hcl (*Crx) 5 Mg Tab Ir PO 5 mg Q8H PRN Administration Pain Polyethylene Glycol 17 gm 07/04/25 09:00 07/08/25 09:09 Polyethylene Glycol 3350 17 Gm Powd.Pack PO 17 gm QAM MERLYN Administration Pregabalin 75 mg 07/04/25 09:00 07/08/25 09:08 Pregabalin (*Crx) 75 Mg Capsule PO 75 mg DAILY MERLYN Administration Quetiapine Fumarate 25 mg 07/04/25 09:00 07/08/25 09:08 Quetiapine Fumarate 25 Mg Tablet PO 25 mg DAILY MERLYN Administration Senna 8.6 mg 07/04/25 01:42 07/05/25 09:32 Sennosides 8.6 Mg Tablet PO 8.6 mg DAILY PRN Administration Constipation Sodium Bicarbonate 325 mg 07/04/25 09:00 07/08/25 16:19 Sodium Bicarbonate Tab 325 Mg Tablet PO 325 mg BID MERLYN Administration Sodium Chloride 10 ml 07/04/25 14:00 07/09/25 06:22 Central Line Flush IV PUSH 10 ml Q8HR MERLYN Administration Sodium Hypochlorite 1 applic 07/06/25 09:00 07/08/25 09:13 Sod Hypochlorite 1/4 Strength 473 Ml TOPICAL 1 applic DAILY MERLYN Administration Sodium Zirconium Cyclosilicate 10 gm 07/09/25 07:01 Sodium Zirconium Cyclosilicate 10 Gm Powd.Pack PO 07/09/25 07:02 ONCE ONE Thiamine HCl 300 mg 07/04/25 09:00 07/08/25 09:08 Thiamine Hcl 100 Mg Tablet FEED TUBE 300 mg QAM MERLYN Administration Trazodone HCl 50 mg 07/04/25 21:00 07/08/25 20:51 Trazodone Hcl 50 Mg Tablet PO 50 mg HS MERLYN Administration Radiology Results: ITS Impressions Abdomen/Pelvis CT 07/03/25 18:41 IMPRESSION: 1. No acute abnormality. 2. Additional findings as above. 3. Chronic right basilar atelectasis and/or airspace disease. Chest X-Ray 07/03/25 20:35 IMPRESSION: 1. Chronic right basilar atelectasis and/or airspace disease. 2. Similar but less severe findings left lung. Renal Ultrasound 07/04/25 14:59 Impression: Mild left hydronephrosis Labs Labs: Laboratory Results - last 24 hr 07/08/25 07/08/25 07/08/25 06:00 12:02 18:08 WBC 12.1 H RBC 3.47 L Hgb 9.5 L Hct 31.9 L MCV 91.9 MCH 27.4 MCHC 29.8 L RDW 17.3 H Plt Count 313 MPV 11.6 H Immature Gran % (Auto) 0.4 Neut % (Auto) 74.0 H Lymph % (Auto) 14.8 L [place] % (Auto) 6.0 Eos % (Auto) 4.6 H Baso % (Auto) 0.2 Lymph # (Auto) 1.79 [place] # (Auto) 0.7 H Eos # (Auto) 0.6 H Baso # (Auto) 0.0 Abs Immat Gran (auto) 0.05 H Absolute Neuts (auto) 8.9 H Absolute Nucleated RBC 0.000 Band Neutrophils % Not Reportable Nucleated RBC % 0.0 Platelet Estimate Adequate Hypochromasia 1+ Anisocytosis 1+ Schistocytes None seen Sodium 139 Potassium 5.4 H Chloride 108 H Carbon Dioxide 25 Anion Gap 6 BUN 61 H Creatinine 1.22 H Estim Creat Clear Calc 34 Estimated GFR 45 L Glucose 97 POC Capillary Glucose 104 97 Calcium 8.8 Total Bilirubin 0.3 AST 30 ALT 15 Alkaline Phosphatase 174 H C-Reactive Protein 11.7 H Total Protein 8.1 Albumin 3.1 L 07/08/25 07/09/25 23:34 05:27 WBC 10.7 H RBC 3.15 L Hgb 8.7 L Hct 28.9 L MCV 91.7 MCH 27.6 MCHC 30.1 L RDW 17.4 H Plt Count 265 MPV 11.1 H Immature Gran % (Auto) 0.3 Neut % (Auto) 73.8 H Lymph % (Auto) 15.9 L [place] % (Auto) 5.7 Eos % (Auto) 4.0 Baso % (Auto) 0.3 Lymph # (Auto) 1.70 [place] # (Auto) 0.6 Eos # (Auto) 0.4 H Baso # (Auto) 0.0 Abs Immat Gran (auto) 0.03 Absolute Neuts (auto) 7.9 H Absolute Nucleated RBC 0.000 Band Neutrophils % Nucleated RBC % 0.0 Platelet Estimate Hypochromasia Anisocytosis Schistocytes Sodium 137 Potassium 5.6 H Chloride 108 H Carbon Dioxide 25 Anion Gap 4 BUN 62 H Creatinine 1.26 H Estim Creat Clear Calc 33 Estimated GFR 43 L Glucose 100 POC Capillary Glucose 117 H Calcium 8.7 Total Bilirubin 0.4 AST 33 ALT 18 Alkaline Phosphatase 157 H C-Reactive Protein 12.8 H Total Protein 7.5 Albumin 3.0 L Quality VTE Prophylaxis VTE prophylaxis: mechanical ordered
[2025-07-09] MEDS: METOPROLOL TARTRATE 50 MG TAB PO ×2 (08:53→21:50)
[2025-07-09] MEDS: SODIUM BICARBONATE TAB 325 MG TABLET PO ×2 (08:54→16:18)
[2025-07-09] MEDS: THIAMINE HCL 100 MG TABLET 300 MG FEED TUBE (08:54)
[2025-07-09] MEDS: FERROUS SULFATE 325 MG TABLET PO (08:55)
[2025-07-09] MEDS: PREGABALIN (*CRX) 75 MG CAPSULE PO (08:55)
[2025-07-09] MEDS: BISACODYL 5 MG TABLET EC PO (08:55)
[2025-07-09] MEDS: FAMOTIDINE 20 MG TABLET PO ×2 (08:56→16:18)
[2025-07-09] MEDS: cefTRIAXone 1 GM in SODIUM CHLORIDE 0.9% IV 50 ML 100 ML IVPB (08:56)
[2025-07-09] MEDS: SODIUM ZIRCONIUM CYCLOSILICATE 10 GM POWD.PACK PO (08:57)
[2025-07-09] MEDS: ARTIFICIAL TEARS OPHTH SOLN 15 ML BOTTLE 1 DROP EACH EYE ×3 (09:30→16:18)
[2025-07-09 10:43] VITALS: BP 122/82; PULSE 97; RESP 16; TEMP 36.6; O2SAT 100
--- NOTE | 2025-07-09 12:57 | PM.PNGS ---
Progress Note: A&P Assessment and Plan (1) Pressure ulcers of skin of multiple topographic sites: Code(s): L89.90 - Pressure ulcer of unspecified site, unspecified stage Status: Chronic Assessment and Plan: Patient ran a fever of 101 overnight. Clinically appears stable. WBC 10.7, down from 12.1. WBC 12.1. Bun/Cr remains elevated. Spoke with patient's state-appointed POA yesterday. He requested a document faxed to him, which was sent. Awaiting response. Patient will need above the knee amputation if approved by legal guardian. Of note, patient would also benefit from diverting colostomy and suprapubic catheter placement as she is incontinent of urine and stool. Urology was consulted and would be agreeable to place catheter if in conjunction with general surgery procedure. Patient's contractures and anatomy make it difficult for any surgical procedure so proper coordination and planning would be necessary. Continue daily dressing changes with Dakin's soaked gauze Continue IV antibiotics. Plan I have discussed the patient's case and plan of care with Dr. Covarrubias. Subjective Subjective Date/Time Seen: 07/09/25 12:57 Patient reports: no new complaints, bowel movement and fever (101? F overnight. Now stable.) Interval history: No new complaints from patient. She did have a slight fever overnight that has now resolved. WBC 10.7, down from 12.1. Exam Const: General: comfortable and no acute distress Skin: Other: Stage III right posterior scapula decubitus ulcer measuring 5 x 3 x 0.5 cm with 100% pink tissue. No purulent drainage or surrounding erythema of the skin. Stage IV sacral decubitus ulcer measuring 4 x 3 x 1.5 cm with 100% pink healthy tissue, no bone exposed, no purulent drainage. No surrounding erythema the skin. Stage III left ischial decubitus ulcer measuring 2 x 2 x 1.5 cm with 100% pink healthy tissue, no purulent drainage. No surrounding erythema of the skin. Stage III right ischial decubitus ulcer measuring 6 x 4 x 2 cm with 90% healthy pink tissue and about 10% yellow slough. Drainage on the dressing is yellow exudate that is easily wiped away. No purulent drainage. No surrounding erythema. Stage III right posterior thigh decubitus ulcer which is below the greater trochanter, measuring 3 x 4 x 1 cm with 100% yellow slough, wound bed is firm, no crepitus, no purulence drainage, no surrounding erythema the skin. Bilateral lower extremities are contracted with deformities of her feet. There is a stage III right heel ulcer measuring 6 x 4 x 0.3 cm with 70% healthy pink tissue and a central area that is a soft superficial crain eschar in about 30% of the wound. No purulent drainage, no bone exposed. There is another large wound on the right dorsal foot extending over the lateral malleolus measuring 11 x 10 cm with about 50% pink healthy tissue, but the center of the wound has loose yellow necrotic tissue with severed tendons visible, bone at the lateral malleolus is exposed and there is clear fluid draining from what appears to be the ankle joint that is exposed at the center of the wound. The foot appears deformed, but there is no significant warmth or erythema of the foot. No purulence drainage coming from either wound on the right foot. She has no movement of her bilateral lower extremities. Left foot has no wounds. Her sacral and ischial wounds were saturated in urine on exam. [place] is positional and not functioning appropriately likely due to her contractions and positioning in bed. Ankle and heel wounds appear to have slightly more red granulation tissue. Objective Data Vital Signs Vital Signs: Vital Signs - 24 hr 07/08/25 13:59 07/08/25 20:00 07/08/25 20:00 Temperature 98.7 F 101 F H Pulse Rate 104 H 125 H 125 H Respiratory Rate 18 18 30 H Blood Pressure 105/86 121/80 Pulse Oximetry 98 98 98 Oxygen Delivery Room Air 07/08/25 20:51 07/08/25 20:51 07/08/25 23:50 Temperature 101 F H 98.6 F Pulse Rate 125 H Respiratory Rate Blood Pressure Pulse Oximetry Oxygen Delivery 07/09/25 05:35 07/09/25 08:00 07/09/25 10:43 Temperature 96.9 F L 97.8 F Pulse Rate 98 97 Respiratory Rate 16 16 Blood Pressure 145/70 H 122/82 Pulse Oximetry 99 100 Oxygen Delivery Room Air Intake/Output Intake/Output: Intake & Output 07/06/25 07/07/25 07/08/25 07/09/25 23:59 23:59 23:59 23:59 Intake Total 286 577 6842 2049 Output Total 250 575 450 Balance 454 219 1730 2048 Meds/Results Medications: Active Medications Generic Name Dose Route Start Last Admin Trade Name Freq PRN Reason Stop Dose Admin Acetaminophen 650 mg 07/08/25 20:08 07/08/25 20:51 Acetaminophen Elixir 325 Mg/10.15 Ml Udc PO 650 mg Q6H PRN Administration Mild Pain (1-3) or Fever Albuterol 2.5 mg 07/04/25 01:48 Albuterol Sulfate Neb 2.5 Mg/3 Ml Inh INHALATION Q4HRT PRN Shortness Of Breath Artificial Tears 1 drop 07/04/25 09:00 07/08/25 16:18 Artificial Tears Ophth Soln 15 Ml Bottle EACH EYE 1 drop TID MERLYN Administration Bisacodyl 5 mg 07/04/25 09:00 07/09/25 08:55 Bisacodyl 5 Mg Tablet Ec PO 5 mg DAILY MERLYN Administration Famotidine 20 mg 07/04/25 09:00 07/09/25 08:56 Famotidine 20 Mg Tablet PO 20 mg BID MERLYN Administration Ferrous Sulfate 325 mg 07/05/25 09:00 07/09/25 08:55 Ferrous Sulfate 325 Mg Tablet PO 325 mg DAILY MERLYN Administration Heparin Sodium (Beef Lung) 50 units 07/04/25 09:00 07/09/25 08:56 Heparin Flush 50 Units/5 Ml Syringe IV PUSH 50 units QAM MERLYN Administration Heparin Sodium (Beef Lung) 50 units 07/04/25 08:38 Heparin Flush 50 Units/5 Ml Syringe IV PUSH PRN PRN after intermittent infusion Heparin Sodium (Beef Lung) 50 units 07/04/25 08:38 Heparin Flush 50 Units/5 Ml Syringe IV PUSH PRN PRN after blood draws Heparin Sodium (Porcine) 5,000 units 07/04/25 09:00 07/04/25 12:17 Heparin Sodium 5,000 Units/Ml Vial SUB-Q Not Given On Hold: 07/04/25 10:50 Q12HR MERLYN Heparin Sodium (Porcine) 500 units 07/04/25 08:38 Heparin Sodium Lock Flush 500 Units/5 Ml Syringe IV PUSH PRN PRN see comments below Ceftriaxone Sodium 1 gm/ 50 mls @ 100 mls/hr 07/04/25 09:00 07/09/25 08:56 Sodium Chloride IVPB 100 mls/hr Q24H MERLYN Administration Metoprolol Tartrate 50 mg 07/04/25 09:00 07/09/25 08:53 Metoprolol Tartrate 50 Mg Tab PO 50 mg Q12HR MERLYN Administration Oxycodone HCl 5 mg 07/04/25 01:42 07/05/25 09:33 Oxycodone Hcl (*Crx) 5 Mg Tab Ir PO 5 mg Q8H PRN Administration Pain Polyethylene Glycol 17 gm 07/04/25 09:00 07/08/25 09:09 Polyethylene Glycol 3350 17 Gm Powd.Pack PO 17 gm QAM MERLYN Administration Pregabalin 75 mg 07/04/25 09:00 07/09/25 08:55 Pregabalin (*Crx) 75 Mg Capsule PO 75 mg DAILY MERLYN Administration Quetiapine Fumarate 25 mg 07/04/25 09:00 07/09/25 08:54 Quetiapine Fumarate 25 Mg Tablet PO 25 mg DAILY MERLYN Administration Senna 8.6 mg 07/04/25 01:42 07/05/25 09:32 Sennosides 8.6 Mg Tablet PO 8.6 mg DAILY PRN Administration Constipation Sodium Bicarbonate 325 mg 07/04/25 09:00 07/09/25 08:54 Sodium Bicarbonate Tab 325 Mg Tablet PO 325 mg BID MERLYN Administration Sodium Chloride 10 ml 07/04/25 14:00 07/09/25 06:22 Central Line Flush IV PUSH 10 ml Q8HR MERLYN Administration Sodium Hypochlorite 1 applic 07/06/25 09:00 07/08/25 09:13 Sod Hypochlorite 1/4 Strength 473 Ml TOPICAL 1 applic DAILY MERLYN Administration Thiamine HCl 300 mg 07/04/25 09:00 07/09/25 08:54 Thiamine Hcl 100 Mg Tablet FEED TUBE 300 mg QAM MERLYN Administration Trazodone HCl 50 mg 07/04/25 21:00 07/08/25 20:51 Trazodone Hcl 50 Mg Tablet PO 50 mg HS MERLYN Administration Radiology Results: ITS Impressions Abdomen/Pelvis CT 07/03/25 18:41 IMPRESSION: 1. No acute abnormality. 2. Additional findings as above. 3. Chronic right basilar atelectasis and/or airspace disease. Chest X-Ray 07/03/25 20:35 IMPRESSION: 1. Chronic right basilar atelectasis and/or airspace disease. 2. Similar but less severe findings left lung. Renal Ultrasound 07/04/25 14:59 Impression: Mild left hydronephrosis Labs Labs: Laboratory Results - last 24 hr 07/08/25 07/08/25 07/09/25 18:08 23:34 05:27 WBC 10.7 H RBC 3.15 L Hgb 8.7 L Hct 28.9 L MCV 91.7 MCH 27.6 MCHC 30.1 L RDW 17.4 H Plt Count 265 MPV 11.1 H Immature Gran % (Auto) 0.3 Neut % (Auto) 73.8 H Lymph % (Auto) 15.9 L [place] % (Auto) 5.7 Eos % (Auto) 4.0 Baso % (Auto) 0.3 Lymph # (Auto) 1.70 [place] # (Auto) 0.6 Eos # (Auto) 0.4 H Baso # (Auto) 0.0 Abs Immat Gran (auto) 0.03 Absolute Neuts (auto) 7.9 H Absolute Nucleated RBC 0.000 Nucleated RBC % 0.0 Sodium 137 Potassium 5.6 H Chloride 108 H Carbon Dioxide 25 Anion Gap 4 BUN 62 H Creatinine 1.26 H Estim Creat Clear Calc 33 Estimated GFR 43 L Glucose 100 POC Capillary Glucose 97 117 H Calcium 8.7 Total Bilirubin 0.4 AST 33 ALT 18 Alkaline Phosphatase 157 H C-Reactive Protein 12.8 H Total Protein 7.5 Albumin 3.0 L 07/09/25 11:32 WBC RBC Hgb Hct MCV MCH MCHC RDW Plt Count MPV Immature Gran % (Auto) Neut % (Auto) Lymph % (Auto) [place] % (Auto) Eos % (Auto) Baso % (Auto) Lymph # (Auto) [place]wood # (Auto) Eos # (Auto) Baso # (Auto) Abs Immat Gran (auto) Absolute Neuts (auto) Absolute Nucleated RBC Nucleated RBC % Sodium Potassium Chloride Carbon Dioxide Anion Gap BUN Creatinine Estim Creat Clear Calc Estimated GFR Glucose POC Capillary Glucose 113 H Calcium Total Bilirubin AST ALT Alkaline Phosphatase C-Reactive Protein Total Protein Albumin
[2025-07-09 14:00] VITALS: BP 137/76; PULSE 102; RESP 18; TEMP 36.1; O2SAT 100
[2025-07-09] MEDS: SOD HYPOCHLORITE 1/4 STRENGTH 473 ML 1 APPLIC TOPICAL (14:03)
--- NOTE | 2025-07-09 14:48 | PCWOUND ---
WOCN NOTE spoke with materials management that staff were using foam borders for dressing changes and going through a lot of supplies, spoke with Lynsey Altamirano NP about changing orders, will have staff cover wounds with ABD pads and roll gauze. Only apply a foam border to shoulder wound. Orders changed.
[2025-07-09 20:00] VITALS: PULSE 116; RESP 18; O2SAT 96
[2025-07-09 21:13] VITALS: BP 126/84; PULSE 116; RESP 18; TEMP 36.4; O2SAT 96
[2025-07-09 21:50] VITALS: PULSE 116
[2025-07-10] VITALS (7 sets, daily range): BP systolic 121–126; BP diastolic 70–84; PULSE 103–126; RESP 16–18; TEMP 36.3–36.6; O2SAT 95–99
[2025-07-10] MEDS: CENTRAL LINE FLUSH 10 ML IV PUSH ×3 (06:28→21:43)
[2025-07-10 07:40] LABS: Hematocrit 29.6 % (37.0-47.0); Hemoglobin 8.7 g/dL (12.0-15.0); Immature Granulocyte Percent A 0.3 % (0-0.5); Lymphocytes Absolute Auto 1.43 K/mm3 (0.9-3.2); Mean Corpuscular HGB Conc 29.4 g/dl (32-36); Mean Corpuscular Hemoglobin 27.1 pg (26-34); Mean Corpuscular Volume 92.2 fl (80-100); Nucleated Red Blood Cells Absolute Auto 0.000 K/mm3 (0.0-0.012); Nucleated Red Blood Cells Perc 0.0 % (0.0-0.2); Platelet Count Result 327 k/mm3 (150-375); Red Blood Count 3.21 M/mm3 (4.2-5.4); White Blood Count 12.8 K/mm3 (4.5-10.0)
--- NOTE | 2025-07-10 08:13 | P.PNIM_ITS ---
Progress Note: A&P Assessment and Plan (1) Pressure ulcers of skin of multiple topographic sites: Code(s): L89.90 - Pressure ulcer of unspecified site, unspecified stage Status: Chronic Assessment and Plan: * patient has multiple nonhealing wounds. Surgery followed on recent admit 05/2025. Patient underwent debridement of ischial wound during last hospitalization. * R ankle wound is tunneling to bone. * During last hospitalization, suprapubic catheter placement/diverting ostomy was discussed to aide in healing. Was delayed due to patient's coagulation profiles. Pradaxa has been on hold since that time and PT/INR and PTT have improved. Continue to hold Pradaxa. Consult urology for suprapubic catheter placement. * Concern for wound infection although general surgery feels all wounds appear clean. Leukocytosis initially improving with Rocephin so will continue for now pending surgery recs. WBC 12 today, mildly uptrending. Consider broadening antibiotics if continues to up trend. * General surgery consulted, appreciate recs. Considering R AKA. Patient is a ramos of the [facility] and all consents will need to obtained from her guardian * Pending further recommendations from general surgery regarding possible R AKA * Will need above the knee amputation if approved by legal guardian (2) Anemia: Code(s): D64.9 - Anemia, unspecified Status: Acute Assessment and Plan: * acute on chronic normocytic anemia * baseline Hgb around 8. Hgb 7.3 on admission and downtrended to 6.8 07/04 * last admit anemia was due to bleeding from wounds. No current signs of bleeding. * s/p 1 u PRBCs with improvement. Hgb now stable. * trend CBC. Transfuse Hgb <7 * iron studies consistent with iron deficiency. Started iron supplement. * 07/10: Hg 8.7 (3) Urinary tract infection: Code(s): N39.0 - Urinary tract infection, site not specified Status: Acute Assessment and Plan: * UA with 2+ LE, WBC 51-100 * urine culture 05/28/25 with Klebsiella pneumoniae and Providencia stuartii both sensitive to cephalosporins * admit WBC 18, afebrile, no leukocytosis * leukocytosis improving * initially started on Merrem. Transitioned to Rocephin. * Urine culture with no growth, but leukocytosis improving on Rocephin so will continue for now. * Urology consulted regarding possible suprapubic catheter placement as she is incontinent of urine/stool (4) RADHA (acute kidney injury): Code(s): N17.9 - Acute kidney failure, unspecified Status: Acute Assessment and Plan: * admit Cr 2.05. Baseline 1.2. S/p IV fluids * Cr improved to 1.30 * renal US with mild L hydronephrosis * voiding appropriately. Bladder scan without retention. * avoid nephrotoxins (5) Essential (primary) hypertension: Code(s): I10 - Essential (primary) hypertension Status: Acute Assessment and Plan: * continue home metoprolol with hold parameters (6) Generalized anxiety disorder: Code(s): F41.1 - Generalized anxiety disorder Status: Acute Assessment and Plan: * continue home citalopram, trazodone (7) Schizoaffective disorder: Code(s): F25.9 - Schizoaffective disorder, unspecified Status: Acute Assessment and Plan: * continue home trazodone (8) Multiple sclerosis: Code(s): G35 - Multiple sclerosis Status: Acute Assessment and Plan: * patient is contracted. * continue Lyrica and oxycodone (9) Gastrointestinal tube in situ: Code(s): Z93.1 - Gastrostomy status Status: Acute Assessment and Plan: * G tube was clogged on admission. GI replaced G tube 07/05 (10) History of pulmonary embolism: Code(s): Z86.711 - Personal history of pulmonary embolism Status: Acute Assessment and Plan: * Pradaxa has been on hold since last admission, will continue to hold in case need for surgical intervention Plan DVT prophylaxis: SCDs Code status: full code Dispo: back to [facility] once medically stable Subjective Date/time seen: 07/10/25 08:13 Interval history: 60-year-old female patient with a history of debility with MS. She was sent here from [facility].The patient was recently discharged from this facility from 06/05/2025(for management of decubitus ulcers). 07/10/2025 Patient sitting comfortably in bed at time examination. No acute overnight events. Pending approval from [facility] for R AKA, colostomy, suprapubic cathete r. No other concerns at this time. Review of Systems Review of Systems: The patient is a very poor historian. She tells me that she still lives with her brother and sister however she is currently at the assisted. All systems reviewed & are unremarkable except as noted in HPI and below ROS unobtainable: Yes unobtainable due to mental status ENT: Reports Normal hearing present Neurologic: Reports Normal hearing present Exam Narrative: General: NAD, appears chronically debilitated Eyes: EOMI ENT: neck supple Cardiovascular: Regular rate and rhythm Respiratory: Clear to auscultation, respirations even and unlabored on RA Gastrointestinal: Soft, non tender Genitourinary: no suprapubic tenderness Musculoskeletal: No edema. Extremities contracted. Quadriplegic. Skin: warm, dry. Wound dressings CDI. Neuro: Alert. Psych: Mood appropriate Const: General: cooperative, comfortable, no acute distress, well developed, awake, Physically active, ill appearing, average body habitus and well nourished Nutritional Appearance: average body habitus and well nourished Orientation/consciousness: oriented to person Other: Contracted arms and legs. HENMT: Head: normal to inspection, No palpable skull fracture present, normocephalic, atraumatic and abrasion Ears: hearing grossly normal bilaterally and external ears normal Eyes: General: appearance normal, both eyes and all related structures Alignment and Position: alignment normal Periorbital: periorbital findings normal Eyelids: eyelids normal Conjunctivae: conjunctivae normal Sclera: sclerae normal Cornea: corneas normal Pupils: Equal, round and reactive pupils present and Pupil accommodation reflex normal EOM: EOMs intact bilaterally Neck: Neck: normal visual inspection, full ROM, no lymphadenopathy and trachea midline Chest: Chest palpation & inspection: normal inspection of the chest Resp: Effort & Inspection: normal respiratory effort Auscultation: clear to auscultation bilaterally Percussion: percussion normal Cardio: Palpation: normal PMI Rate: regular rate Rhythm: regular rhythm Heart sounds: S1 normal heart sound present and S2 normal heart sound present Peripheral pulses: Peripheral pulses 2+ throughout GI: Inspection: normal to inspection Auscultation: normal bowel sounds Rectal Exam: deferred : General: Yes no CVA tenderness Back/Spine/Pelvis: Back: no CVA tenderness Cervical Spine: cervical ROM normal Skin: General skin exam: normal color Lesions: no lesions Rashes: no rashes Trauma: no lacerations or abrasions Wounds: no wounds Hair: normal Nails: normal Other: She has a dressing to her left foot and per records she has a sacral ulcer but I was not able to roll her over and looked at this time. Neuro: General: oriented to person Cranial nerves: Yes Equal, round and reactive pupils present and Yes Normal hearing present Extrem: General: normal to inspection Right upper extremity: normal to inspection and shoulder/upper arm Left upper extremity: normal to inspection and shoulder/upper arm Right lower extremity: normal to inspection Left lower extremity: normal to inspection Psych: Appearance: grossly normal Mental Status: mental status grossly normal Speech and movement: Normal speech and movement present Affect: normal affect Attitude: cooperative Thought process: Normal thought process present Insight: Poor insight present (Psych) Judgement: Poor judgement present (Psych) Objective Data Vital Signs Vital Signs: Vital Signs - 24 hr 07/09/25 10:43 07/09/25 14:00 07/09/25 20:00 Temperature 97.8 F 97.0 F L Pulse Rate 97 102 H 116 H Respiratory Rate 16 18 18 Blood Pressure 122/82 137/76 Pulse Oximetry 100 100 96 Oxygen Delivery Room Air 07/09/25 21:13 07/09/25 21:50 07/10/25 05:36 Temperature 97.6 F 97.9 F Pulse Rate 116 H 116 H 112 H Respiratory Rate 18 16 Blood Pressure 126/84 124/84 Pulse Oximetry 96 99 Oxygen Delivery Intake/Output Intake/Output: Intake & Output 07/07/25 07/08/25 07/09/25 07/10/25 23:59 23:59 23:59 23:59 Intake Total 820 2780 2529 2142 Output Total 575 450 400 Balance 245 2330 2529 1742 Meds/Results Medications: Active Medications Generic Name Dose Route Start Last Admin Trade Name Freq PRN Reason Stop Dose Admin Acetaminophen 650 mg 07/08/25 20:08 07/08/25 20:51 Acetaminophen Elixir 325 Mg/10.15 Ml Udc PO 650 mg Q6H PRN Administration Mild Pain (1-3) or Fever Albuterol 2.5 mg 07/04/25 01:48 Albuterol Sulfate Neb 2.5 Mg/3 Ml Inh INHALATION Q4HRT PRN Shortness Of Breath Artificial Tears 1 drop 07/04/25 09:00 07/09/25 16:18 Artificial Tears Ophth Soln 15 Ml Bottle EACH EYE 1 drop TID MERLYN Administration Bisacodyl 5 mg 07/04/25 09:00 07/09/25 08:55 Bisacodyl 5 Mg Tablet Ec PO 5 mg DAILY MERLYN Administration Famotidine 20 mg 07/04/25 09:00 07/09/25 16:18 Famotidine 20 Mg Tablet PO 20 mg BID MERLYN Administration Ferrous Sulfate 325 mg 07/05/25 09:00 07/09/25 08:55 Ferrous Sulfate 325 Mg Tablet PO 325 mg DAILY MERLYN Administration Heparin Sodium (Beef Lung) 50 units 07/04/25 09:00 07/09/25 08:56 Heparin Flush 50 Units/5 Ml Syringe IV PUSH 50 units QAM MERLYN Administration Heparin Sodium (Beef Lung) 50 units 07/04/25 08:38 Heparin Flush 50 Units/5 Ml Syringe IV PUSH PRN PRN after intermittent infusion Heparin Sodium (Beef Lung) 50 units 07/04/25 08:38 Heparin Flush 50 Units/5 Ml Syringe IV PUSH PRN PRN after blood draws Heparin Sodium (Porcine) 5,000 units 07/04/25 09:00 07/04/25 12:17 Heparin Sodium 5,000 Units/Ml Vial SUB-Q Not Given On Hold: 07/04/25 10:50 Q12HR MERLYN Heparin Sodium (Porcine) 500 units 07/04/25 08:38 Heparin Sodium Lock Flush 500 Units/5 Ml Syringe IV PUSH PRN PRN see comments below Ceftriaxone Sodium 1 gm/ 50 mls @ 100 mls/hr 07/04/25 09:00 07/09/25 08:56 Sodium Chloride IVPB 100 mls/hr Q24H MERLYN Administration Metoprolol Tartrate 50 mg 07/04/25 09:00 07/09/25 21:50 Metoprolol Tartrate 50 Mg Tab PO 50 mg Q12HR MERLYN Administration Oxycodone HCl 5 mg 07/04/25 01:42 07/05/25 09:33 Oxycodone Hcl (*Crx) 5 Mg Tab Ir PO 5 mg Q8H PRN Administration Pain Polyethylene Glycol 17 gm 07/04/25 09:00 07/09/25 14:03 Polyethylene Glycol 3350 17 Gm Powd.Pack PO 17 gm QAM MERLYN Administration Pregabalin 75 mg 07/04/25 09:00 07/09/25 08:55 Pregabalin (*Crx) 75 Mg Capsule PO 75 mg DAILY MERLYN Administration Quetiapine Fumarate 25 mg 07/04/25 09:00 07/09/25 08:54 Quetiapine Fumarate 25 Mg Tablet PO 25 mg DAILY MERLYN Administration Senna 8.6 mg 07/04/25 01:42 07/05/25 09:32 Sennosides 8.6 Mg Tablet PO 8.6 mg DAILY PRN Administration Constipation Sodium Bicarbonate 325 mg 07/04/25 09:00 07/09/25 16:18 Sodium Bicarbonate Tab 325 Mg Tablet PO 325 mg BID MERLYN Administration Sodium Chloride 10 ml 07/04/25 14:00 07/10/25 06:28 Central Line Flush IV PUSH 10 ml Q8HR MERLYN Administration Sodium Hypochlorite 1 applic 07/06/25 09:00 07/09/25 14:03 Sod Hypochlorite 1/4 Strength 473 Ml TOPICAL 1 applic DAILY MERLYN Administration Thiamine HCl 300 mg 07/04/25 09:00 07/09/25 08:54 Thiamine Hcl 100 Mg Tablet FEED TUBE 300 mg QAM MERLYN Administration Trazodone HCl 50 mg 07/04/25 21:00 07/09/25 21:50 Trazodone Hcl 50 Mg Tablet PO 50 mg HS MERLYN Administration Radiology Results: ITS Impressions Abdomen/Pelvis CT 07/03/25 18:41 IMPRESSION: 1. No acute abnormality. 2. Additional findings as above. 3. Chronic right basilar atelectasis and/or airspace disease. Chest X-Ray 07/03/25 20:35 IMPRESSION: 1. Chronic right basilar atelectasis and/or airspace disease. 2. Similar but less severe findings left lung. Renal Ultrasound 07/04/25 14:59 Impression: Mild left hydronephrosis Labs Labs: Laboratory Results - last 24 hr 07/09/25 07/09/25 11:32 17:08 POC Capillary Glucose 113 H 94 Quality VTE Prophylaxis VTE prophylaxis: mechanical ordered
[2025-07-10 08:17] LABS: Hypochromasia Occasional; Schistocytes None Seen
[2025-07-10] MEDS: METOPROLOL TARTRATE 50 MG TAB PO ×2 (10:32→21:48)
[2025-07-10] MEDS: THIAMINE HCL 100 MG TABLET 300 MG FEED TUBE (10:32)
[2025-07-10] MEDS: SODIUM BICARBONATE TAB 325 MG TABLET PO ×2 (10:32→16:58)
[2025-07-10] MEDS: PREGABALIN (*CRX) 75 MG CAPSULE PO (10:34)
[2025-07-10] MEDS: FERROUS SULFATE 325 MG TABLET PO (10:34)
[2025-07-10] MEDS: FAMOTIDINE 20 MG TABLET PO ×2 (10:34→16:58)
[2025-07-10] MEDS: cefTRIAXone 1 GM in SODIUM CHLORIDE 0.9% IV 50 ML 100 ML IVPB (10:35)
[2025-07-10] MEDS: ARTIFICIAL TEARS OPHTH SOLN 15 ML BOTTLE 1 DROP EACH EYE ×3 (10:35→16:58)
--- NOTE | 2025-07-10 12:37 | PC.NURSE ---
Tech was unable to get patient's Q6 blood sugar due to patient refusing.
--- NOTE | 2025-07-10 13:36 | PCNFU ---
Nutrition Follow-Up Complete: Moderate protein calorie malnutrition related to chronic illness and increased energy expenditure as evidenced by multiple pressure injuries, less than 75% intake greater than 1 month, a significant weight loss of -6% x 1 month, and NFPE findings for moderate subcutaneous fat loss and muscle wasting. PO intake of supplements - Slow progress with PO intake Goal: Pt current nutrition is Regular diet, Ensure Plus HP BID (350 kcal, 20 gprotein) and Maged BID for wounds (90 kcal, 2.5 g pro, +arginine and glutamine). Tube feeding orders: Jevity 1.3 @ 50 ml/h with flushes 150 ml q 4 h (1650 kcal, 70 g protein, 1736 ml free water total) Nutrition recommendation: Formula change: Nepro @ goal rate 40 ml/h to provide 1584 kcal, 71 g protein, 1690 ml total free water. Recommend changing to low potassium formula because of potassium/renal labs. Last recorded weight is 48.9 kg. Bowel Motility: +4 BMs 07/08 Labs Reviewed: Hgb 8.7, Hct 29.6, Alb 3, K+ 5.6, BUN 62, Cre 1.26 Meds Noted: miralax, thiamine, senna Skin: Multiple pressure injuries: Stage 3 BL ischium, Stage 2 scapula, Stage 3 thigh, heel, stage 4 sacrum, feet Additional Notes: Potassium and BUN continue to increase so recommend low-potassium tube feeding formula. Discussed with provider and RN. Pt eating 10-30% regular diet with occasional 100%. Might need R AKA. Continue diet orders. Tube feeding orders changed. Monitor intake, wt, labs. Follow up in every Sunday and Sunday.
[2025-07-10 13:42] LABS: Alanine Aminotransferase 27 U/L (6-35); Albumin Level 3.4 g/dL (3.5-5.1); Alkaline Phosphatase 181 U/L (38-126); Anion Gap 8 mmol/L (4-12); Aspartate Amino Transferase 50 U/L (14-36); Bilirubin,Total 0.3 mg/dL (0.2-1.3); Blood Urea Nitrogen 55 mg/dL (7-17); Calcium 9.0 mg/dL (8.4-10.2); Carbon Dioxide 25 mmol/L (22-30); Chloride 102 mmol/L (98-107); Estimated CRCL calculation 34 ml/min; Estimated Glomerular Filt Rate 45; Glucose 97 mg/dL (65-110); Potassium 5.6 mmol/L (3.4-5.0); Sodium 135 mmol/L (137-145); Total Protein 8.6 g/dL (6.3-8.2)
[2025-07-10] MEDS: DOXYCYCLINE HYCLATE 100 MG TABLET FEED TUBE ×2 (13:49→21:52)
--- NOTE | 2025-07-10 14:54 | PM.PNGS ---
Progress Note: A&P Assessment and Plan (1) Pressure ulcers of skin of multiple topographic sites: Code(s): L89.90 - Pressure ulcer of unspecified site, unspecified stage Status: Chronic Assessment and Plan: Afebrile. Clinically appears stable. WBC 12.8. Bun/Cr remains elevated. Awaiting consent from patient legal guardian, Fran Burnham, to proceed with a left above the knee amputation. Fax sent 2 days ago, as he requested. Of note, patient would also benefit from diverting colostomy and suprapubic catheter placement as she is incontinent of urine and stool. Posterior wounds often contaminated with urine and stool. Urology was consulted and would be agreeable to place catheter if in conjunction with general surgery procedure. Patient's contractures and anatomy make it difficult for any surgical procedure so proper coordination and planning would be necessary. Continue daily dressing changes with Dakin's soaked gauze. Continue IV antibiotics. Plan I have discussed the patient's case and plan of care with Dr. Covarrubias. Subjective Subjective Date/Time Seen: 07/10/25 14:54 Patient reports: no new complaints and afebrile Interval history: No new complaints. Per nurse, she did not eat her lunch. Says she is hungry upon visit this afternoon. Exam Skin: Other: Stage III right posterior scapula decubitus ulcer measuring 5 x 3 x 0.5 cm with 100% pink tissue. No purulent drainage or surrounding erythema of the skin. Stage IV sacral decubitus ulcer measuring 4 x 3 x 1.5 cm with 100% pink healthy tissue, no bone exposed, no purulent drainage. No surrounding erythema the skin. Stage III left ischial decubitus ulcer measuring 2 x 2 x 1.5 cm with 100% pink healthy tissue, no purulent drainage. No surrounding erythema of the skin. Greenish yellow drainage from this wound. Stage III right ischial decubitus ulcer measuring 6 x 4 x 2 cm with 90% healthy pink tissue and about 10% yellow slough. Drainage on the dressing is yellow exudate that is easily wiped away. No purulent drainage. No surrounding erythema. Greenish yellow drainage from this wound. Stage III right posterior thigh decubitus ulcer which is below the greater trochanter, measuring 3 x 4 x 1 cm with 100% yellow slough, wound bed is firm, no crepitus, no purulence drainage, no surrounding erythema the skin. Bilateral lower extremities are contracted with deformities of her feet. There is a stage III right heel ulcer measuring 6 x 4 x 0.3 cm with 70% healthy pink tissue and a central area that is a soft superficial crain eschar in about 30% of the wound. No purulent drainage, no bone exposed. There is another large wound on the right dorsal foot extending over the lateral malleolus measuring 11 x 10 cm with about 50% pink healthy tissue, but the center of the wound has loose yellow necrotic tissue with severed tendons visible, bone at the lateral malleolus is exposed and there is clear fluid draining from what appears to be the ankle joint that is exposed at the center of the wound. The foot appears deformed, but there is no significant warmth or erythema of the foot. No purulence drainage coming from either wound on the right foot. She has no movement of her bilateral lower extremities. Left foot has no wounds. Her sacral and ischial wounds were saturated in urine on exam. Patient has depends on. Catheter unable to be placed. Purewick unable to function properly. Ankle and heel wounds appear to have slightly more red granulation tissue. New small bleeding area to right forefoot. Does not look infected. She likely scraped this on something. Objective Data Vital Signs Vital Signs: Vital Signs - 24 hr 07/09/25 20:00 07/09/25 21:13 07/09/25 21:50 Temperature 97.6 F Pulse Rate 116 H 116 H 116 H Respiratory Rate 18 18 Blood Pressure 126/84 Pulse Oximetry 96 96 Oxygen Delivery Room Air 07/10/25 05:36 07/10/25 10:10 07/10/25 10:32 Temperature 97.9 F Pulse Rate 112 H 116 H Respiratory Rate 16 Blood Pressure 124/84 Pulse Oximetry 99 Oxygen Delivery Room Air Intake/Output Intake/Output: Intake & Output 07/07/25 07/08/25 07/09/25 07/10/25 23:59 23:59 23:59 23:59 Intake Total 820 2780 2579 2142 Output Total 575 450 400 Balance 245 3830 5798 1742 Meds/Results Medications: Active Medications Generic Name Dose Route Start Last Admin Trade Name Freq PRN Reason Stop Dose Admin Acetaminophen 650 mg 07/08/25 20:08 07/08/25 20:51 Acetaminophen Elixir 325 Mg/10.15 Ml Udc PO 650 mg Q6H PRN Administration Mild Pain (1-3) or Fever Albuterol 2.5 mg 07/04/25 01:48 Albuterol Sulfate Neb 2.5 Mg/3 Ml Inh INHALATION Q4HRT PRN Shortness Of Breath Artificial Tears 1 drop 07/04/25 09:00 07/10/25 13:49 Artificial Tears Ophth Soln 15 Ml Bottle EACH EYE 1 drop TID MERLYN Administration Bisacodyl 5 mg 07/04/25 09:00 07/10/25 10:35 Bisacodyl 5 Mg Tablet Ec PO Not Given DAILY MERLYN Doxycycline Hyclate 100 mg 07/10/25 12:00 07/10/25 13:49 Doxycycline Hyclate 100 Mg Tablet FEED TUBE 100 mg Q12HR MERLYN Administration Famotidine 20 mg 07/04/25 09:00 07/10/25 10:34 Famotidine 20 Mg Tablet PO 20 mg BID MERLYN Administration Ferrous Sulfate 325 mg 07/05/25 09:00 07/10/25 10:34 Ferrous Sulfate 325 Mg Tablet PO 325 mg DAILY MERLYN Administration Heparin Sodium (Beef Lung) 50 units 07/04/25 09:00 07/10/25 10:36 Heparin Flush 50 Units/5 Ml Syringe IV PUSH 50 units QAM MERLYN Administration Heparin Sodium (Beef Lung) 50 units 07/04/25 08:38 Heparin Flush 50 Units/5 Ml Syringe IV PUSH PRN PRN after intermittent infusion Heparin Sodium (Beef Lung) 50 units 07/04/25 08:38 Heparin Flush 50 Units/5 Ml Syringe IV PUSH PRN PRN after blood draws Heparin Sodium (Porcine) 5,000 units 07/04/25 09:00 07/04/25 12:17 Heparin Sodium 5,000 Units/Ml Vial SUB-Q Not Given On Hold: 07/04/25 10:50 Q12HR MERLYN Heparin Sodium (Porcine) 500 units 07/04/25 08:38 Heparin Sodium Lock Flush 500 Units/5 Ml Syringe IV PUSH PRN PRN see comments below Ceftriaxone Sodium 1 gm/ 50 mls @ 100 mls/hr 07/04/25 09:00 07/10/25 10:35 Sodium Chloride IVPB 100 mls/hr Q24H MERLYN Administration Metoprolol Tartrate 50 mg 07/04/25 09:00 07/10/25 10:32 Metoprolol Tartrate 50 Mg Tab PO 50 mg Q12HR MERLYN Administration Oxycodone HCl 5 mg 07/04/25 01:42 07/05/25 09:33 Oxycodone Hcl (*Crx) 5 Mg Tab Ir PO 5 mg Q8H PRN Administration Pain Polyethylene Glycol 17 gm 07/04/25 09:00 07/10/25 10:34 Polyethylene Glycol 3350 17 Gm Powd.Pack PO Not Given QAM MERLYN Pregabalin 75 mg 07/04/25 09:00 07/10/25 10:34 Pregabalin (*Crx) 75 Mg Capsule PO 75 mg DAILY MERLYN Administration Quetiapine Fumarate 25 mg 07/04/25 09:00 07/10/25 10:32 Quetiapine Fumarate 25 Mg Tablet PO 25 mg DAILY MERLYN Administration Senna 8.6 mg 07/04/25 01:42 07/05/25 09:32 Sennosides 8.6 Mg Tablet PO 8.6 mg DAILY PRN Administration Constipation Sodium Bicarbonate 325 mg 07/04/25 09:00 07/10/25 10:32 Sodium Bicarbonate Tab 325 Mg Tablet PO 325 mg BID MERLYN Administration Sodium Chloride 10 ml 07/04/25 14:00 07/10/25 13:49 Central Line Flush IV PUSH 10 ml Q8HR MERLYN Administration Sodium Hypochlorite 1 applic 07/06/25 09:00 07/09/25 14:03 Sod Hypochlorite 1/4 Strength 473 Ml TOPICAL 1 applic DAILY MERLYN Administration Thiamine HCl 300 mg 07/04/25 09:00 07/10/25 10:32 Thiamine Hcl 100 Mg Tablet FEED TUBE 300 mg QAM MERLYN Administration Trazodone HCl 50 mg 07/04/25 21:00 07/09/25 21:50 Trazodone Hcl 50 Mg Tablet PO 50 mg HS MERLYN Administration Radiology Results: ITS Impressions Abdomen/Pelvis CT 07/03/25 18:41 IMPRESSION: 1. No acute abnormality. 2. Additional findings as above. 3. Chronic right basilar atelectasis and/or airspace disease. Chest X-Ray 07/03/25 20:35 IMPRESSION: 1. Chronic right basilar atelectasis and/or airspace disease. 2. Similar but less severe findings left lung. Renal Ultrasound 07/04/25 14:59 Impression: Mild left hydronephrosis Labs Labs: Laboratory Results - last 24 hr 10/09/25 10/10/25 17:08 06:52 WBC 12.8 H RBC 3.21 L Hgb 8.7 L Hct 29.6 L MCV 92.2 MCH 27.1 MCHC 29.4 L RDW 17.4 H Plt Count 327 MPV 11.5 H Immature Gran % (Auto) 0.3 Neut % (Auto) 78.5 H Lymph % (Auto) 11.2 L [place] % (Auto) 6.1 Eos % (Auto) 3.6 Baso % (Auto) 0.3 Lymph # (Auto) 1.43 [place] # (Auto) 0.8 H Eos # (Auto) 0.5 H Baso # (Auto) 0.0 Abs Immat Gran (auto) 0.04 H Absolute Neuts (auto) 10.1 H Absolute Nucleated RBC 0.000 Band Neutrophils % Not Reportable Nucleated RBC % 0.0 Platelet Estimate Adequate Hypochromasia Occasional Schistocytes None seen Sodium 135 L Potassium 5.6 H Chloride 102 Carbon Dioxide 25 Anion Gap 8 BUN 55 H Creatinine 1.22 H Estim Creat Clear Calc 34 Estimated GFR 45 L Glucose 97 POC Capillary Glucose 94 Calcium 9.0 Total Bilirubin 0.3 AST 50 H ALT 27 Alkaline Phosphatase 181 H Total Protein 8.6 H Albumin 3.4 L
--- NOTE | 2025-07-10 15:14 | P.CONNP_ITS ---
Assessment and Plan Assessment and plan (1) Hyperkalemia: Code(s): E87.5 - Hyperkalemia Status: Acute Assessment and Plan: * as noted in the last few days * suspect due to several issues: * extensive wounds as noted * previous RADHA * anemia (? hemolysis) * other (?) * check urine studies (to check TTKG), aldosterone, renin, TSH, cortisol, LDH, haptoglobin, and CPK * changed to low K+ diet (oral and tube feeds) * scheduled [facility] for [facility] * follow trend of K+ levels (2) Stage 3 chronic kidney disease: Code(s): N18.30 - Chronic kidney disease, stage 3 unspecified Status: Chronic Assessment and Plan: * baseline creatinine seems to run around 1.1 - 1.5mg/dL in the last year * has fluctuated to extremes in association with acute hosptializations (has been as high as 2.66mg/dL) * presumably due to solitary kidney/loss of nephron mass, recurrent UTIs/infections and associated hospitalizations (3) Pressure ulcers of skin of multiple topographic sites: Code(s): L89.90 - Pressure ulcer of unspecified site, unspecified stage Status: Chronic Assessment and Plan: * sginificant issue/problems as outlined on previous and this current hospitalization * Surgery recommendations noted for: * left AKA * diverting colostomy * suprapubic catheter placement * continue local wound care * on antibiotics (4) Anemia: Code(s): D64.9 - Anemia, unspecified Status: Acute Assessment and Plan: * acute on chronic * likely related to acute illness * PRBC transfusion per protocol * follow trend of H/H (5) Urinary tract infection: Code(s): N39.0 - Urinary tract infection, site not specified Status: Acute Assessment and Plan: * as suspected by admission UA * however, urine culture results noted * remains on antibiotics (6) Essential (primary) hypertension: Code(s): I10 - Essential (primary) hypertension Status: Acute Assessment and Plan: * soft BP on admission * BP medications with parameters * follow trend of hemodynamics (7) History of pulmonary embolism: Code(s): Z86.711 - Personal history of pulmonary embolism Status: Acute Assessment and Plan: * holding Pradaxa at this time * awaiting need for possible surgical intervention (8) Multiple sclerosis: Code(s): G35 - Multiple sclerosis Status: Acute Assessment and Plan: * known history * pain control as noted I will continue to follow the patient with you while she remains hospitalized and make further recommendations as deemed necessary. Thank you for allowing me to participate in the care of this patient. L History of Present Illness Reason for Consult Consult date: 07/10/25 Reason for consult: chronic renal failure and hyperkalemia Chief Complaint Chief complaint: urosepsis, RADHA History of Present Illness Narrative: A great deal information I have obtained is review the electronic medical record as well as discussion with the physician/nurses involved in the patient's care as the patient has some underlying cognitive deficit limiting the information I have been able to obtain. The patient is an unfortunate 60-year-old female an extensive past medical history as outlined below who presented to [facility] her nursing facility due to nausea and vomiting. The patient was recently discharged from [facility] early last month for management of her multiple decubitus ulcers/wounds which are still present. is not entirely clear how long the patient has been having issues with nausea and vomiting from what I can ascertain from review the records but because the symptoms persisted in associated with some abdominal discomfort nursing facility transfer to the emergency room for further assessment. Workup and evaluation emergency room demonstrated the patient to be hemodynamically stable although her blood pressure was the soft side in association with tachycardia. Routine blood tests were notable for several abnormalities including an elevated white blood cell count of 18.9, hemoglobin 7.3, potassium 5.1, BUN of 105, creatinine 2.0, and CRP of 5.9. Her urinalysis was significant for 2+ leukocyte esterase, 11-20 red blood cells, and 51 - [address] Her [address] scan did not show any acute pathology other than her known decubitus ulcers/wounds and chronic mild hydronephrosis in her left kidney. After appropriate cultures were obtained she was started on IV fluids and IV antibiotics and this did improve her tachycardia. She was subsequently admitted to the hospital for further evaluation therapy. Since her admission, her white blood cell count has been trending up despite antibiotic therapy and there was concern that the multitude of ulcer/ wounds that she has all be coming more problematic and difficult to heal given her urinary and stool incontinence. she has been seen in consultation by both General surgery as well as Urology with recommendation for a right above knee amputation, diverting colostomy, and suprapubic catheter placement in an attempt to promote wound healing but this intervention is pending guardianship approval. Renal consultation was requested due to her persistent hyperkalemia in the last several days. On admission, her potassium was mildly elevated but had stabilized with current interventions up until the last 72 hours when her potassium level has been on the higher side of normal. She has received a few doses of Lokelma but this is not appear to have improved her potassium level. In attempt to compensate for her elevated potassium level, her tube feeds were transition to a renal formulation and whatever limited oral intake that she takes has been transition to a low-potassium diet as well. In spite of her elevated potassium level, her overall renal function has improved in comparison to admission back to her normal baseline. Currently, at the time my evaluation, she does not appear to be in any acute distress. Review of Systems 2 Review of Systems: As per HPI. [facility] Past Medical History Medical History Multiple sclerosis Gastrointestinal tube in situ Chronic kidney disease, stage 3 Anorexia Malnutrition Pulmonary embolism (2014) Xanthogranulomatous pyelonephritis MRSA infection Urinary tract infection due to extended-spectrum beta lactamase (ESBL) producing Escherichia coli Chronic respiratory failure with hypoxia, on home oxygen therapy Previously documented that the patient is oxygen dependent on 4 L nasal cannula however she denies and is on room air with good SpO2 as of 07/27/2023. 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 History of nephrostomy Family History Family History Mother Family history of multiple sclerosis Hypertension Father Patient's father is Social History Social History Social History: She resides at [facility]. Patient is a ramos of [facility] [employer]. Her guardian is Abe Burnham ([phone]). Code status: Full code. Smoking packs per day: 0.5 Smoking cigarettes per day: 10.0 Years smoked: 1 Smoking pack-years: 0.50 Smoking status: Never smoker Second hand tobacco smoke exposure: No Alcohol intake: never Substance use: never Do You Feel Safe in your Home?: Yes Lack of Transportation: No Lack of Food: Never True Current Housing: I Have Housing Concerned About Future Housing: No Difficulty Paying Gas/Electric Bills: No Difficulty Paying for Meds: No Currently Unemployed: No Education: Don't Know Difficulty w/ Childcare or Family Care: No Living arrangements: [facility] Additional living arrangements comments: 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ion: other Additional occupation/education comments: Disabled Spiritual care concerns: No Agree to blood products: Yes Meds Home Medications and Allergies Home Medications ?Medication ?Instructions ?Recorded ?Confirmed ?Type cholecalciferol (vitamin D3) 1,000 units G-tube DAILY 12/17/22 07/03/25 History famotidine 20 mg tablet 20 mg PO BID 12/17/22 History ondansetron 4 mg disintegrating 4 mg PO QID PRN Nausea And Vomiting 12/17/22 07/03/25 History tablet trazodone 50 mg tablet 50 mg PO HS 12/17/22 5 History sennosides 8.6 mg tablet (senna) 8.6 mg PO DAILY PRN C onstipation 07/27/23 07/03/25 History thiamine HCl (vitamin B1) 100 mg 300 mg (3 x 100 mg) f eeding tube 01/31/24 07/03/25 Rx tablet (Vitamin B-1) QAM #90 tabs citalopram 20 mg tablet 30 mg PO DAILY 06/20/24 1012/23 History dextran 70-hypromellose eye drops 1 drp EACH EYE TID 0 06/20/24 07/03/25 History (Artificial Tears (dextran 70-hypromellose) eye drops) metoprolol tartrate 50 mg tablet 50 mg PO TID 06/20/24 07/03/25 History polyethylene glycol 3350 17 gram 17 g PO QAM #30 ea 07/03/25 Rx oral powder packet (Miralax) arginine 7 gram-glutamine 7 1 ea PO BID 01/13/2507/03 History gram-calcium HMB 1.5 gram oral powder pack (Maged) bisacodyl 5 mg tablet,delayed 5 mg PO DAILY 01/13/25 1 History release ipratropium bromide 0.02 % 1.25 ml inhalation DAILY [place] N 01/13/25 07/03/25 History solution for inhalation shortness of breath or wheez ing dabigatran etexilate 150 mg capsule 150 mg PO BID 05/0207/03/25 History Held on 06/05/25. Instructions: Resume on 06/26/25. Hold until suprapubic catheter is placed furosemide 20 mg tablet 20 mg feeding tube DAILY 07/03/25 History quetiapine 25 mg tablet 25 mg PO DAILY 05/28/2512/23 History sodium bicarbonate 650 mg tablet 325 mg PO BID 5 07/03/25 History magnesium citrate (Citroma oral 296 ml PO DAILY PRN co nstipation 07/03/25 07/03/25 History solution) magnesium hydroxide 400 mg/5 mL 30 ml PO DAILY PRN con stipation 07/03/25 07/03/25 History oral suspension (Milk of Magnesia) avxatrnqeojq-molb-qgyyg acid 1 tablet PO DAILY 5 07/03/25 History oxycodone 5 mg capsule 5 mg PO Q8H PRN pain 5 07/03/25 History pregabalin 75 mg capsule 75 mg PO DAILY 07/03/2512/23 History sodium phosphates 133 ml RECTAL DAILY PRN 12/2307/03/25 History constipation lactose-reduced food with fiber 1 ea feeding tube .con tinuous 07/04/25 07/04/25 History 0.06 gram-1.5 kcal/mL oral liquid (Jevity 1.5 [place]mer) Allergies Allergy/AdvReac Type Severity Reaction Status Date / Time No Known Allergies Allergy Verified 07/03/25 17:22 Vital Signs Vital Signs Temp Pulse Resp BP Pulse Ox O2 Del Method 07/10/25 15:01 97.4 F L 103 H 18 121/70 99 07/10/25 10:32 116 H 07/10/25 10:10 Room Air 07/10/25 05:36 97.9 F 112 H 16 124/84 99 07/09/25 21:50 116 H 07/09/25 21:13 97.6 F 116 H 18 126/84 96 07/09/25 20:00 116 H 18 96 Room Air Exam 2 Narrative: GENERAL APPEARANCE: chronically debilitated female in no acute distress HEENT: normocephalic, atraumatic, normal conjunctiva and sclera, nares patient NECK: no lymphadenopathy, thyromegaly, or JVD MOUTH: normal lips, teeth, and gums CARDIOVASCULAR: RRR, normal S1 and S2, no rub RESPIRATORY: clear to auscultation bilaterally ABDOMEN: soft, nontender, nondistended, positive bowel sounds present EXTREMITIES: no evidence of cyanosis, clubbing, or edema; + contractures and wounds noted NEUROLOGICAL: awake and alert; quadraplegia Results Lab Results 07/10/25 06:52 07/10/25 06:52 Lab results: Laboratory Tests 07/10/25 06:52 WBC 12.8 H RBC 3.21 L Hgb 8.7 L Hct 29.6 L MCV 92.2 MCH 27.1 MCHC 29.4 L RDW 17.4 H Plt Count 327 MPV 11.5 H Immature Gran % (Auto) 0.3 Neut % (Auto) 78.5 H Lymph % (Auto) 11.2 L [place] % (Auto) 6.1 Eos % (Auto) 3.6 Baso % (Auto) 0.3 Lymph # (Auto) 1.43 [place] # (Auto) 0.8 H Eos # (Auto) 0.5 H Baso # (Auto) 0.0 Abs Immat Gran (auto) 0.04 H Absolute Neuts (auto) 10.1 H Absolute Nucleated RBC 0.000 Band Neutrophils % Not Reportable Nucleated RBC % 0.0 Platelet Estimate Adequate Hypochromasia Occasional Schistocytes None seen Sodium 135 L Potassium 5.6 H Chloride 102 Carbon Dioxide 25 Anion Gap 8 BUN 55 H Creatinine 1.22 H Estim Creat Clear Calc 34 Estimated GFR 45 L Glucose 97 Calcium 9.0 Total Bilirubin 0.3 AST 50 H ALT 27 Alkaline Phosphatase 181 H Total Protein 8.6 H Albumin 3.4 L Microbiology 07/03/25 17:06 Blood Blood Culture - Final 07/03/25 16:59 Blood Blood Culture - Final
--- NOTE | 2025-07-10 16:57 | PC.NURSE ---
RN requested Nepro be sent up from dietary again. Still waiting to adjust tube feedings due to this.
[2025-07-10] MEDS: VANCOMYCIN 1,250 MG/NS 250 ML 1,250 MG/250 ML BAG 166.67 MG IVPB (16:59)
[2025-07-10] MEDS: SOD HYPOCHLORITE 1/4 STRENGTH 473 ML 1 APPLIC TOPICAL (16:59)
[2025-07-10] MEDS: SODIUM ZIRCONIUM CYCLOSILICATE 10 GM POWD.PACK PO ×2 (17:02→21:52)
--- NOTE | 2025-07-10 17:11 | PC.NURSE ---
Flush amount increased to 175 mL/hour.
[2025-07-10] MEDS: CEFEPIME 2 GM in SODIUM CHLORIDE 0.9% IV 50 ML 100 ML IVPB (17:16)
--- NOTE | 2025-07-10 17:20 | PC.NURSE ---
[employer] showed Vancomycin and Cefepime were compatible and could be ran together.
--- NOTE | 2025-07-10 17:30 | PC.NURSE ---
Nepro started at 30 mL/hr at 1730. Increase 10 mL every 4 hours.
[2025-07-11] VITALS (11 sets, daily range): BP systolic 104–119; BP diastolic 63–68; PULSE 64–112; RESP 16–20; TEMP 35.4–37.2; O2SAT 97–99
[2025-07-11] MEDS: CEFEPIME 2 GM in SODIUM CHLORIDE 0.9% IV 50 ML 100 ML IVPB ×2 (06:02→17:12)
[2025-07-11] MEDS: CENTRAL LINE FLUSH 10 ML IV PUSH ×3 (06:02→22:23)
[2025-07-11 06:07] LABS: Hematocrit 27.9 % (37.0-47.0); Hemoglobin 8.4 g/dL (12.0-15.0); Immature Granulocyte Percent A 0.4 % (0-0.5); Immature Platelet Fraction Pct 2.4 % (0.9-11.2); Lymphocytes Absolute Auto 1.59 K/mm3 (0.9-3.2); Mean Corpuscular HGB Conc 30.1 g/dl (32-36); Mean Corpuscular Hemoglobin 27.4 pg (26-34); Mean Corpuscular Volume 90.9 fl (80-100); Nucleated Red Blood Cells Absolute Auto 0.000 K/mm3 (0.0-0.012); Nucleated Red Blood Cells Perc 0.0 % (0.0-0.2); Platelet Count Result 294 k/mm3 (150-375); Red Blood Count 3.07 M/mm3 (4.2-5.4); White Blood Count 12.4 K/mm3 (4.5-10.0)
[2025-07-11 06:29] LABS: Alanine Aminotransferase 25 U/L (6-35); Albumin Level 3.1 g/dL (3.5-5.1); Alkaline Phosphatase 194 U/L (38-126); Anion Gap 6 mmol/L (4-12); Aspartate Amino Transferase 37 U/L (14-36); Bilirubin,Total 0.4 mg/dL (0.2-1.3); Blood Urea Nitrogen 55 mg/dL (7-17); Calcium 8.6 mg/dL (8.4-10.2); Carbon Dioxide 24 mmol/L (22-30); Chloride 105 mmol/L (98-107); Creatine Kinase < 20 U/L (30-135); Estimated CRCL calculation 32 ml/min; Estimated Glomerular Filt Rate 42; Glucose 103 mg/dL (65-110); Potassium 4.8 mmol/L (3.4-5.0); Sodium 135 mmol/L (137-145); Total Protein 8.1 g/dL (6.3-8.2)
[2025-07-11 06:39] LABS: Anisocytosis 1+; Ovalocytes Occasional; Schistocytes None Seen
[2025-07-11 07:16] LABS: Thyroid Stimulating Hormone Reflex 2.270 uIU/mL (0.465-4.68)
[2025-07-11] MEDS: PREGABALIN (*CRX) 75 MG CAPSULE PO (09:24)
[2025-07-11] MEDS: SODIUM BICARBONATE TAB 325 MG TABLET PO ×2 (09:24→16:02)
[2025-07-11] MEDS: FERROUS SULFATE 325 MG TABLET PO (09:24)
[2025-07-11] MEDS: FAMOTIDINE 20 MG TABLET PO ×2 (09:24→16:02)
[2025-07-11] MEDS: METOPROLOL TARTRATE 50 MG TAB PO ×2 (09:24→21:00)
[2025-07-11] MEDS: BISACODYL 5 MG TABLET EC PO (09:24)
[2025-07-11] MEDS: THIAMINE HCL 100 MG TABLET 300 MG FEED TUBE (09:24)
[2025-07-11] MEDS: DOXYCYCLINE HYCLATE 100 MG TABLET FEED TUBE ×2 (09:24→21:00)
[2025-07-11] MEDS: SOD HYPOCHLORITE 1/4 STRENGTH 473 ML 1 APPLIC TOPICAL (09:37)
[2025-07-11] MEDS: ARTIFICIAL TEARS OPHTH SOLN 15 ML BOTTLE 1 DROP EACH EYE ×3 (09:37→16:02)
--- NOTE | 2025-07-11 11:06 | P.PNNP_ITS ---
Progress Note: A&P Assessment and Plan (1) Hyperkalemia: Code(s): E87.5 - Hyperkalemia Status: Acute Assessment and Plan: * as noted in the last few days * suspect due to several issues: * extensive wounds as noted * previous RADHA * anemia (? hemolysis) * the patient's muscle mass is probably extremely low and so I suspect her GFR is much worse than her the estimated GFR seen in the labs. * Renin and aldosterone pending * urine tests not done * scheduled [facility] for now repeat K tomorrow. Consider cutting the dose down or stopping going forward since her creatinine is now back to baseline. * follow trend of K+ levels (2) Stage 3 chronic kidney disease: Code(s): N18.30 - Chronic kidney disease, stage 3 unspecified Status: Chronic Assessment and Plan: * baseline creatinine seems to run around 1.1 - 1.5mg/dL in the last year * has fluctuated to extremes in association with acute hosptializations (has been as high as 2.66mg/dL) * presumably due to solitary kidney/loss of nephron mass, recurrent UTIs/infections and associated hospitalizations * With very low muscle mass her creatinine clearance is probably much lower than reflected by estimates from blood work. (3) Pressure ulcers of skin of multiple topographic sites: Code(s): L89.90 - Pressure ulcer of unspecified site, unspecified stage Status: Chronic Assessment and Plan: * sginificant issue/problems as outlined on previous and this current hospitalization * Surgery recommendations noted for: * left AKA * diverting colostomy * suprapubic catheter placement * continue local wound care * on vancomycin, doxycycline, and cefepime (4) Anemia: Code(s): D64.9 - Anemia, unspecified Status: Acute Assessment and Plan: * acute on chronic * likely related to acute illness * CKD probably playing a role as well * PRBC transfusion per protocol * check a cbc in am (5) Urinary tract infection: Code(s): N39.0 - Urinary tract infection, site not specified Status: Acute Assessment and Plan: * as suspected by admission UA * however, urine culture results noted * remains on antibiotics (6) Essential (primary) hypertension: Code(s): I10 - Essential (primary) hypertension Status: Acute Assessment and Plan: * soft BP on admission * systolic 107 to 120s lately * BP medications with parameters (7) History of pulmonary embolism: Code(s): Z86.711 - Personal history of pulmonary embolism Status: Acute Assessment and Plan: * holding Pradaxa at this time * awaiting need for possible surgical intervention (8) Multiple sclerosis: Code(s): G35 - Multiple sclerosis Status: Acute Assessment and Plan: * known history * pain control as noted Subjective Date/time seen: 07/11/25 11:06 Interval history: Yesenia is awake. She feels okay Review of Systems Cardiovascular: Cardiovascular: Reports no additional cardiovascular complaints Respiratory: Respiratory: Reports no additional respiratory complaints Gastrointestinal: Gastrointestinal: Reports no additional gastrointestinal complaints Genitourinary: Genitourinary: Reports no additional female genitourinary complaints Exam Narrative: WD very thin lady in NAD skin no rash head ncat lungs clear cor reg no rub abd BS+ nontender and soft ext no edema. Objective Data Vital Signs Vital Signs: Vital Signs - 24 hr 07/10/25 15:01 07/10/25 16:00 07/10/25 20:00 Temperature 97.4 F L Pulse Rate 103 H 107 H Respiratory Rate 18 Blood Pressure 121/70 Pulse Oximetry 99 Oxygen Delivery Room Air 07/10/25 20:00 07/10/25 20:15 07/10/25 21:48 Temperature 97.7 F Pulse Rate 126 H 124 H 123 H Respiratory Rate 18 Blood Pressure 126/76 Pulse Oximetry 95 Oxygen Delivery 07/11/25 00:00 07/11/25 04:00 07/11/25 08:00 Temperature Pulse Rate 96 102 H Respiratory Rate Blood Pressure Pulse Oximetry Oxygen Delivery Room Air 07/11/25 08:45 07/11/25 10:11 Temperature 95.7 F L 98.6 F Pulse Rate 64 Respiratory Rate 16 Blood Pressure 107/68 Pulse Oximetry 99 Oxygen Delivery Intake/Output Intake/Output: Intake & Output 07/08/25 07/09/25 07/10/25 07/11/25 23:59 23:59 23:59 23:59 Intake Total 2420 4706 5011 Output Total 450 400 Balance 3336 6271 7801 Meds/Results Medications: Active Medications Generic Name Dose Route Start Last Admin Trade Name Freq PRN Reason Stop Dose Admin Acetaminophen 650 mg 07/08/25 20:08 07/08/25 20:51 Acetaminophen Elixir 325 Mg/10.15 Ml Udc PO 650 mg Q6H PRN Administration Mild Pain (1-3) or Fever Albuterol 2.5 mg 07/04/25 01:48 Albuterol Sulfate Neb 2.5 Mg/3 Ml Inh INHALATION Q4HRT PRN Shortness Of Breath Artificial Tears 1 drop 07/04/25 09:00 07/11/25 09:37 Artificial Tears Ophth Soln 15 Ml Bottle EACH EYE 1 drop TID MERLYN Administration Bisacodyl 5 mg 07/04/25 09:00 07/11/25 09:24 Bisacodyl 5 Mg Tablet Ec PO 5 mg DAILY MERLYN Administration Doxycycline Hyclate 100 mg 07/10/25 12:00 07/11/25 09:24 Doxycycline Hyclate 100 Mg Tablet FEED TUBE 100 mg Q12HR MERLYN Administration Famotidine 20 mg 07/04/25 09:00 07/11/25 09:24 Famotidine 20 Mg Tablet PO 20 mg BID MERLYN Administration Ferrous Sulfate 325 mg 07/05/25 09:00 07/11/25 09:24 Ferrous Sulfate 325 Mg Tablet PO 325 mg DAILY MERLYN Administration Heparin Sodium (Beef Lung) 50 units 07/04/25 09:00 07/11/25 09:23 Heparin Flush 50 Units/5 Ml Syringe IV PUSH Not Given QAM MERLYN Heparin Sodium (Beef Lung) 50 units 07/04/25 08:38 Heparin Flush 50 Units/5 Ml Syringe IV PUSH PRN PRN after intermittent infusion Heparin Sodium (Beef Lung) 50 units 07/04/25 08:38 Heparin Flush 50 Units/5 Ml Syringe IV PUSH PRN PRN after blood draws Heparin Sodium (Porcine) 5,000 units 07/04/25 09:00 07/04/25 12:17 Heparin Sodium 5,000 Units/Ml Vial SUB-Q Not Given On Hold: 07/04/25 10:50 Q12HR [facility] Heparin Sodium (Porcine) 500 units 07/04/25 08:38 Heparin Sodium Lock Flush 500 Units/5 Ml Syringe IV PUSH PRN PRN see comments below Vancomycin HCl 750 mg in 250 mls @ 250 mls/hr 07/12/25 04:00 Vancomycin 750 Mg/Ns 250 Ml IVPB Q36H MERLYN Cefepime HCl 2 gm/ Sodium 50 mls @ 100 mls/hr 07/10/25 18:00 07/11/25 06:02 Chloride IVPB 100 mls/hr Q12H MERLYN Administration Metoprolol Tartrate 50 mg 07/04/25 09:00 07/11/25 09:24 Metoprolol Tartrate 50 Mg Tab PO 50 mg Q12HR MERLYN Administration Oxycodone HCl 5 mg 07/04/25 01:42 07/05/25 09:33 Oxycodone Hcl (*Crx) 5 Mg Tab Ir PO 5 mg Q8H PRN Administration Pain Polyethylene Glycol 17 gm 07/04/25 09:00 07/11/25 09:24 Polyethylene Glycol 3350 17 Gm Powd.Pack PO 17 gm QAM MERLYN Administration Pregabalin 75 mg 07/04/25 09:00 07/11/25 09:24 Pregabalin (*Crx) 75 Mg Capsule PO 75 mg DAILY MERLYN Administration Quetiapine Fumarate 25 mg 07/04/25 09:00 07/11/25 09:24 Quetiapine Fumarate 25 Mg Tablet PO 25 mg DAILY MERLYN Administration Senna 8.6 mg 07/04/25 01:42 07/05/25 09:32 Sennosides 8.6 Mg Tablet PO 8.6 mg DAILY PRN Administration Constipation Sodium Bicarbonate 325 mg 07/04/25 09:00 07/11/25 09:24 Sodium Bicarbonate Tab 325 Mg Tablet PO 325 mg BID MERLYN Administration Sodium Chloride 10 ml 07/04/25 14:00 07/11/25 06:02 Central Line Flush IV PUSH 10 ml Q8HR MERLYN Administration Sodium Hypochlorite 1 applic 07/06/25 09:00 07/11/25 09:37 Sod Hypochlorite 1/4 Strength 473 Ml TOPICAL 1 applic DAILY MERLYN Administration Sodium Zirconium Cyclosilicate 10 gm 07/10/25 15:10 07/10/25 21:52 Sodium Zirconium Cyclosilicate 10 Gm Powd.Pack PO 10 gm TID@1000,1500,2200 MERLYN Administration Thiamine HCl 300 mg 07/04/25 09:00 07/11/25 09:24 Thiamine Hcl 100 Mg Tablet FEED TUBE 300 mg QAM MERLYN Administration Trazodone HCl 50 mg 07/04/25 21:00 07/10/25 21:50 Trazodone Hcl 50 Mg Tablet PO 50 mg HS MERLYN Administration Radiology Results: ITS Impressions Abdomen/Pelvis CT 07/03/25 18:41 IMPRESSION: 1. No acute abnormality. 2. Additional findings as above. 3. Chronic right basilar atelectasis and/or airspace disease. Chest X-Ray 07/03/25 20:35 IMPRESSION: 1. Chronic right basilar atelectasis and/or airspace disease. 2. Similar but less severe findings left lung. Renal Ultrasound 07/04/25 14:59 Impression: Mild left hydronephrosis Labs Labs: Laboratory Results - last 24 hr 07/10/25 07/10/25 07/11/25 06:52 23:04 05:54 WBC 12.4 H RBC 3.07 L Hgb 8.4 L Hct 27.9 L MCV 90.9 MCH 27.4 MCHC 30.1 L RDW 17.2 H Plt Count 294 MPV 11.3 H Immature Gran % (Auto) 0.4 Neut % (Auto) 76.8 H Lymph % (Auto) 12.9 L [place] % (Auto) 5.7 Eos % (Auto) 4.0 Baso % (Auto) 0.2 Lymph # (Auto) 1.59 [place] # (Auto) 0.7 H Eos # (Auto) 0.5 H Baso # (Auto) 0.0 Abs Immat Gran (auto) 0.05 H Absolute Neuts (auto) 9.5 H Absolute Nucleated RBC 0.000 Band Neutrophils % Not Reportable Nucleated RBC % 0.0 Platelet Estimate Adequate % Immature Plt Fraction 2.4 Anisocytosis 1+ Ovalocytes Occasional Schistocytes None seen Sodium 135 L 135 L Potassium 5.6 H 4.8 Chloride 102 105 Carbon Dioxide 25 24 Anion Gap 8 6 BUN 55 H 55 H Creatinine 1.22 H 1.29 H Estim Creat Clear Calc 34 32 Estimated GFR 45 L 42 L Glucose 97 103 POC Capillary Glucose 101 Calcium 9.0 8.6 Total Bilirubin 0.3 0.4 AST 50 H 37 H ALT 27 25 Alkaline Phosphatase 181 H 194 H Lactate Dehydrogenase 172 Total Creatine Kinase < 20 L Total Protein 8.6 H 8.1 Albumin 3.4 L 3.1 L TSH (Reflex) 2.270 Random Cortisol 13.80
[2025-07-11] MEDS: SODIUM ZIRCONIUM CYCLOSILICATE 10 GM POWD.PACK PO ×3 (11:32→22:42)
--- NOTE | 2025-07-11 13:05 | P.PNIM_ITS ---
Progress Note: A&P Assessment and Plan (1) Pressure ulcers of skin of multiple topographic sites: Code(s): L89.90 - Pressure ulcer of unspecified site, unspecified stage Status: Chronic Assessment and Plan: * patient has multiple nonhealing wounds. Surgery followed on recent admit 05/2025. Patient underwent debridement of ischial wound during last hospitalization. * R ankle wound is tunneling to bone. * During last hospitalization, suprapubic catheter placement/diverting ostomy was discussed to aide in healing. Was delayed due to patient's coagulation profiles. Pradaxa has been on hold since that time and PT/INR and PTT have improved. Continue to hold Pradaxa. Consult urology for suprapubic catheter placement. * Concern for wound infection although general surgery feels all wounds appear clean. Leukocytosis initially improving with Rocephin so will continue for now pending surgery recs. WBC 12 today, mildly uptrending. Consider broadening antibiotics if continues to up trend. * General surgery consulted, appreciate recs. Considering R AKA. Patient is a [facility]amos of the [facility] and all consents will need to obtained from her guardian * Pending further recommendations from general surgery regarding possible R AKA * Will need above the knee amputation if approved by legal guardian (2) Anemia: Code(s): D64.9 - Anemia, unspecified Status: Acute Assessment and Plan: * acute on chronic normocytic anemia * baseline Hgb around 8. Hgb 7.3 on admission and downtrended to 6.8 07/04 * last admit anemia was due to bleeding from wounds. No current signs of bleeding. * s/p 1 u PRBCs with improvement. Hgb now stable. * trend CBC. Transfuse Hgb <7 * iron studies consistent with iron deficiency. Started iron supplement. * 07/10: Hg 8.7 (3) Urinary tract infection: Code(s): N39.0 - Urinary tract infection, site not specified Status: Acute Assessment and Plan: * UA with 2+ LE, WBC 51-100 * urine culture 05/28/25 with Klebsiella pneumoniae and Providencia stuartii both sensitive to cephalosporins * admit WBC 18, afebrile, no leukocytosis * leukocytosis improving * initially started on Merrem. Transitioned to Rocephin. * Urine culture with no growth, but leukocytosis improving on Rocephin so will continue for now. * Urology consulted regarding possible suprapubic catheter placement as she is incontinent of urine/stool (4) RADHA (acute kidney injury): Code(s): N17.9 - Acute kidney failure, unspecified Status: Acute Assessment and Plan: * admit Cr 2.05. Baseline 1.2. S/p IV fluids * Cr improved to 1.30 * renal US with mild L hydronephrosis * voiding appropriately. Bladder scan without retention. * avoid nephrotoxins (5) Essential (primary) hypertension: Code(s): I10 - Essential (primary) hypertension Status: Acute Assessment and Plan: * continue home metoprolol with hold parameters (6) Generalized anxiety disorder: Code(s): F41.1 - Generalized anxiety disorder Status: Acute Assessment and Plan: * continue home citalopram, trazodone (7) Schizoaffective disorder: Code(s): F25.9 - Schizoaffective disorder, unspecified Status: Acute Assessment and Plan: * continue home trazodone (8) Multiple sclerosis: Code(s): G35 - Multiple sclerosis Status: Acute Assessment and Plan: * patient is contracted. * continue Lyrica and oxycodone (9) Gastrointestinal tube in situ: Code(s): Z93.1 - Gastrostomy status Status: Acute Assessment and Plan: * G tube was clogged on admission. GI replaced G tube 07/05 (10) History of pulmonary embolism: Code(s): Z86.711 - Personal history of pulmonary embolism Status: Acute Assessment and Plan: * Pradaxa has been on hold since last admission, will continue to hold in case need for surgical intervention Plan DVT prophylaxis: SCDs Code status: full code Dispo: back to [facility] once medically stable Subjective Date/time seen: 07/11/25 13:05 Interval history: No acute event overnight. Patient is alert and awake. Awaiting for the for the guardian to make a decision for her anticipated procedure. Review of Systems Review of Systems: All systems reviewed & are unremarkable except as noted in HPI and below Exam Narrative: APPEARANCE: No acute distress, nontoxic EYES: EOMI HEENT: Normocephalic, atraumatic, OMM RESPIRATORY: No respiratory distress Clear to auscultation bilaterally with no r honchi wheezing or rales. CARDIOVASCULAR: Right chest port noted, RRR, S1 and S2 without murmurs rubs or gallops. ABDOMINAL: Soft, nontender, nondistended, no rebound or guarding MSK: Quadriplegia NEURO: Awake and alert. Following commands, speech normal, no focal deficits SKIN:: Warm, dry. No rashes lesions or abrasions PSYCHIATRIC: Normal affect/mood Objective Data Vital Signs Vital Signs: Vital Signs - 24 hr 07/10/25 15:01 07/10/25 16:00 07/10/25 20:00 Temperature 36.3 C L Pulse Rate 103 H 107 H Respiratory Rate 18 Blood Pressure 121/70 Pulse Oximetry 99 Oxygen Delivery Room Air 07/10/25 20:00 07/10/25 20:15 07/10/25 21:48 Temperature 36.5 C Pulse Rate 126 H 124 H 123 H Respiratory Rate 18 Blood Pressure 126/76 Pulse Oximetry 95 Oxygen Delivery 07/11/25 00:00 07/11/25 04:00 07/11/25 08:00 Temperature Pulse Rate 96 102 H Respiratory Rate Blood Pressure Pulse Oximetry Oxygen Delivery Room Air 07/11/25 08:00 07/11/25 08:45 07/11/25 10:11 Temperature 35.4 C L 37.0 C Pulse Rate 112 H 64 Respiratory Rate 16 Blood Pressure 107/68 Pulse Oximetry 99 Oxygen Delivery Intake/Output Intake/Output: Intake & Output 07/08/25 07/09/25 07/10/25 07/11/25 23:59 23:59 23:59 23:59 Intake Total 2780 3523 5871 237 Output Total 450 400 Balance 2330 2920 6348 237 Meds/Results Medications: Active Medications Generic Name Dose Route Start Last Admin Trade Name Freq PRN Reason Stop Dose Admin Acetaminophen 650 mg 07/08/25 20:08 07/08/25 20:51 Acetaminophen Elixir 325 Mg/10.15 Ml Udc PO 650 mg Q6H PRN Administration Mild Pain (1-3) or Fever Albuterol 2.5 mg 07/04/25 01:48 Albuterol Sulfate Neb 2.5 Mg/3 Ml Inh INHALATION Q4HRT PRN Shortness Of Breath Artificial Tears 1 drop 07/04/25 09:00 07/11/25 09:37 Artificial Tears Ophth Soln 15 Ml Bottle EACH EYE 1 drop TID MERLYN Administration Bisacodyl 5 mg 07/04/25 09:00 07/11/25 09:24 Bisacodyl 5 Mg Tablet Ec PO 5 mg DAILY MERLYN Administration Doxycycline Hyclate 100 mg 07/10/25 12:00 07/11/25 09:24 Doxycycline Hyclate 100 Mg Tablet FEED TUBE 100 mg Q12HR MERLYN Administration Famotidine 20 mg 07/04/25 09:00 07/11/25 09:24 Famotidine 20 Mg Tablet PO 20 mg BID MERLYN Administration Ferrous Sulfate 325 mg 07/05/25 09:00 07/11/25 09:24 Ferrous Sulfate 325 Mg Tablet PO 325 mg DAILY MERLYN Administration Heparin Sodium (Beef Lung) 50 units 07/04/25 09:00 07/11/25 09:23 Heparin Flush 50 Units/5 Ml Syringe IV PUSH Not Given QAM MERLYN Heparin Sodium (Beef Lung) 50 units 10/04/25 08:38 Heparin Flush 50 Units/5 Ml Syringe IV PUSH PRN PRN after intermittent infusion Heparin Sodium (Beef Lung) 50 units 07/04/25 08:38 Heparin Flush 50 Units/5 Ml Syringe IV PUSH PRN PRN after blood draws Heparin Sodium (Porcine) 5,000 units 07/04/25 09:00 07/04/25 12:17 Heparin Sodium 5,000 Units/Ml Vial SUB-Q Not Given On Hold: 07/04/25 10:50 Q12HR MERLYN Heparin Sodium (Porcine) 500 units 07/04/25 08:38 Heparin Sodium Lock Flush 500 Units/5 Ml Syringe IV PUSH PRN PRN see comments below Vancomycin HCl 750 mg in 250 mls @ 250 mls/hr 07/12/25 04:00 Vancomycin 750 Mg/Ns 250 Ml IVPB Q36H MERLYN Cefepime HCl 2 gm/ Sodium 50 mls @ 100 mls/hr 07/10/25 18:00 07/11/25 06:02 Chloride IVPB 100 mls/hr Q12H MERLYN Administration Metoprolol Tartrate 50 mg 07/04/25 09:00 07/11/25 09:24 Metoprolol Tartrate 50 Mg Tab PO 50 mg Q12HR MERLYN Administration Oxycodone HCl 5 mg 07/04/25 01:42 07/05/25 09:33 Oxycodone Hcl (*Crx) 5 Mg Tab Ir PO 5 mg Q8H PRN Administration Pain Polyethylene Glycol 17 gm 07/04/25 09:00 07/11/25 09:24 Polyethylene Glycol 3350 17 Gm Powd.Pack PO 17 gm QAM MERLYN Administration Pregabalin 75 mg 07/04/25 09:00 07/11/25 09:24 Pregabalin (*Crx) 75 Mg Capsule PO 75 mg DAILY MERLYN Administration Quetiapine Fumarate 25 mg 07/04/25 09:00 07/11/25 09:24 Quetiapine Fumarate 25 Mg Tablet PO 25 mg DAILY MERLYN Administration Senna 8.6 mg 07/04/25 01:42 07/05/25 09:32 Sennosides 8.6 Mg Tablet PO 8.6 mg DAILY PRN Administration Constipation Sodium Bicarbonate 325 mg 07/04/25 09:00 07/11/25 09:24 Sodium Bicarbonate Tab 325 Mg Tablet PO 325 mg BID MERLYN Administration Sodium Chloride 10 ml 07/04/25 14:00 07/11/25 06:02 Central Line Flush IV PUSH 10 ml Q8HR MERLYN Administration Sodium Hypochlorite 1 applic 07/06/25 09:00 07/11/25 09:37 Sod Hypochlorite 1/4 Strength 473 Ml TOPICAL 1 applic DAILY MERLYN Administration Sodium Zirconium Cyclosilicate 10 gm 07/10/25 15:10 07/11/25 11:32 Sodium Zirconium Cyclosilicate 10 Gm Powd.Pack PO 10 gm TID@1000,1500,2200 MERLYN Administration Thiamine HCl 300 mg 07/04/25 09:00 07/11/25 09:24 Thiamine Hcl 100 Mg Tablet FEED TUBE 300 mg QAM MERLYN Administration Trazodone HCl 50 mg 07/04/25 21:00 07/10/25 21:50 Trazodone Hcl 50 Mg Tablet PO 50 mg HS MERLYN Administration Radiology Results: ITS Impressions Abdomen/Pelvis CT 07/03/25 18:41 IMPRESSION: 1. No acute abnormality. 2. Additional findings as above. 3. Chronic right basilar atelectasis and/or airspace disease. Chest X-Ray 07/03/25 20:35 IMPRESSION: 1. Chronic right basilar atelectasis and/or airspace disease. 2. Similar but less severe findings left lung. Renal Ultrasound 07/04/25 14:59 Impression: Mild left hydronephrosis Labs Labs: Laboratory Results - last 24 hr 07/10/25 07/10/25 07/11/25 06:52 23:04 05:54 WBC 12.4 H RBC 3.07 L Hgb 8.4 L Hct 27.9 L MCV 90.9 MCH 27.4 MCHC 30.1 L RDW 17.2 H Plt Count 294 MPV 11.3 H Immature Gran % (Auto) 0.4 Neut % (Auto) 76.8 H Lymph % (Auto) 12.9 L [place] % (Auto) 5.7 Eos % (Auto) 4.0 Baso % (Auto) 0.2 Lymph # (Auto) 1.59 [place] # (Auto) 0.7 H Eos # (Auto) 0.5 H Baso # (Auto) 0.0 Abs Immat Gran (auto) 0.05 H Absolute Neuts (auto) 9.5 H Absolute Nucleated RBC 0.000 Band Neutrophils % Not Reportable Nucleated RBC % 0.0 Platelet Estimate Adequate % Immature Plt Fraction 2.4 Anisocytosis 1+ Ovalocytes Occasional Schistocytes None seen Sodium 135 L 135 L Potassium 5.6 H 4.8 Chloride 102 105 Carbon Dioxide 25 24 Anion Gap 8 6 BUN 55 H 55 H Creatinine 1.22 H 1.29 H Estim Creat Clear Calc 34 32 Estimated GFR 45 L 42 L Glucose 97 103 POC Capillary Glucose 101 Calcium 9.0 8.6 Total Bilirubin 0.3 0.4 AST 50 H 37 H ALT 27 25 Alkaline Phosphatase 181 H 194 H Lactate Dehydrogenase 172 Total Creatine Kinase < 20 L Total Protein 8.6 H 8.1 Albumin 3.4 L 3.1 L TSH (Reflex) 2.270 Random Cortisol 13.80 07/11/25 12:03 WBC RBC Hgb Hct MCV MCH MCHC RDW Plt Count MPV Immature Gran % (Auto) Neut % (Auto) Lymph % (Auto) [place] % (Auto) Eos % (Auto) Baso % (Auto) Lymph # (Auto) [place] # (Auto) Eos # (Auto) Baso # (Auto) Abs Immat Gran (auto) Absolute Neuts (auto) Absolute Nucleated RBC Band Neutrophils % Nucleated RBC % Platelet Estimate % Immature Plt Fraction Anisocytosis Ovalocytes Schistocytes Sodium Potassium Chloride Carbon Dioxide Anion Gap BUN Creatinine Estim Creat Clear Calc Estimated GFR Glucose POC Capillary Glucose 109 H Calcium Total Bilirubin AST ALT Alkaline Phosphatase Lactate Dehydrogenase Total Creatine Kinase Total Protein Albumin TSH (Reflex) Random Cortisol Quality VTE Prophylaxis VTE prophylaxis: mechanical ordered
[2025-07-11] MEDS: IRON SUCROSE COMPLEX 200 MG, IRON SUCROSE COMPLEX 100 MG in SODIUM CHLORIDE 0.9% IV 250 ML 176.67 MG IVPB (14:28)
[2025-07-11] MEDS: oxyCODONE HCL (*CRX) 5 MG TAB IR PO (17:12)
[2025-07-12] VITALS (9 sets, daily range): BP systolic 100–122; BP diastolic 61–72; PULSE 95–122; RESP 16–18; TEMP 36.2–37.1; O2SAT 95–97
[2025-07-12] MEDS: VANCOMYCIN 750 MG/NS 250 ML 750 MG/250 ML BAG 250 MG IVPB (03:58)
[2025-07-12] MEDS: CEFEPIME 2 GM in SODIUM CHLORIDE 0.9% IV 50 ML 100 ML IVPB ×2 (06:39→17:03)
[2025-07-12] MEDS: CENTRAL LINE FLUSH 10 ML IV PUSH ×3 (06:40→21:06)
[2025-07-12] MEDS: FERROUS SULFATE 325 MG TABLET PO (07:56)
[2025-07-12] MEDS: SODIUM BICARBONATE TAB 325 MG TABLET PO ×2 (07:56→17:03)
[2025-07-12] MEDS: BISACODYL 5 MG TABLET EC PO (07:56)
[2025-07-12] MEDS: THIAMINE HCL 100 MG TABLET 300 MG FEED TUBE (07:56)
[2025-07-12] MEDS: DOXYCYCLINE HYCLATE 100 MG TABLET FEED TUBE ×2 (07:57→21:05)
[2025-07-12] MEDS: PREGABALIN (*CRX) 75 MG CAPSULE PO (07:57)
[2025-07-12] MEDS: METOPROLOL TARTRATE 50 MG TAB PO (07:57)
[2025-07-12] MEDS: FAMOTIDINE 20 MG TABLET PO ×2 (07:57→17:03)
[2025-07-12] MEDS: ARTIFICIAL TEARS OPHTH SOLN 15 ML BOTTLE 1 DROP EACH EYE ×3 (07:57→17:02)
[2025-07-12] MEDS: SOD HYPOCHLORITE 1/4 STRENGTH 473 ML 1 APPLIC TOPICAL (07:58)
[2025-07-12] MEDS: IRON SUCROSE COMPLEX 200 MG, IRON SUCROSE COMPLEX 100 MG in SODIUM CHLORIDE 0.9% IV 250 ML 176.67 MG IVPB (08:02)
--- NOTE | 2025-07-12 08:55 | P.PNNP_ITS ---
Progress Note: A&P Assessment and Plan (1) Hyperkalemia: Code(s): E87.5 - Hyperkalemia Status: Acute Assessment and Plan: * as noted in the last few days * suspect due to several issues: * extensive wounds as noted * RADHA on admission * anemia (? hemolysis) * the patient's muscle mass is probably extremely low and so I suspect her GFR is much worse than her the estimated GFR seen in the labs. * Renin and aldosterone pending * urine tests not done * scheduled [facility] for now. Await potassium level * check another tomorrow (2) Stage 3 chronic kidney disease: Code(s): N18.30 - Chronic kidney disease, stage 3 unspecified Status: Chronic Assessment and Plan: * baseline creatinine seems to run around 1.1 - 1.5mg/dL in the last year * has fluctuated to extremes in association with acute hosptializations (has been as high as 2.66mg/dL) * presumably due to solitary kidney/loss of nephron mass, recurrent UTIs/infections and associated hospitalizations * With very low muscle mass her creatinine clearance is probably much lower than reflected by estimates from blood work. (3) Pressure ulcers of skin of multiple topographic sites: Code(s): L89.90 - Pressure ulcer of unspecified site, unspecified stage Status: Chronic Assessment and Plan: * sginificant issue/problems as outlined on previous and this current hospitalization * Surgery recommendations noted for: * left AKA * diverting colostomy * suprapubic catheter placement * continue local wound care * on vancomycin, doxycycline, and cefepime * vanc level ordered (4) Anemia: Code(s): D64.9 - Anemia, unspecified Status: Acute Assessment and Plan: * acute on chronic * likely related to acute illness * CKD probably playing a role as well * PRBC transfusion per protocol * await CBC results (5) Urinary tract infection: Code(s): N39.0 - Urinary tract infection, site not specified Status: Acute Assessment and Plan: * as suspected by admission UA * however, urine culture results noted * remains on antibiotics (6) Essential (primary) hypertension: Code(s): I10 - Essential (primary) hypertension Status: Acute Assessment and Plan: * soft BP on admission * systolic 107 to 120s lately * BP medications with parameters (7) History of pulmonary embolism: Code(s): Z86.711 - Personal history of pulmonary embolism Status: Acute Assessment and Plan: * holding Pradaxa at this time * awaiting need for possible surgical intervention * should patient be on IV heparin until we know about surgery? (8) Multiple sclerosis: Code(s): G35 - Multiple sclerosis Status: Acute Assessment and Plan: * known history * pain control as noted Subjective Date/time seen: 07/12/25 08:55 Interval history: patient is feeling okay today. Eating some breakfast. She has consumed a half pancake so far. Unable to draw her blood apparently because she is a hard stick. Exam Narrative: WD very thin lady in NAD skin no rash Or subcu nodules head ncat lungs clear bilaterally cor reg no rub abd BS+ nontender and soft ext no edema. Objective Data Vital Signs Vital Signs: Vital Signs - 24 hr 07/11/25 10:11 07/11/25 12:00 07/11/25 14:54 Temperature 98.6 F 98.0 F Pulse Rate 101 H 112 H Respiratory Rate 18 Blood Pressure 119/67 Pulse Oximetry 99 07/11/25 16:00 07/11/25 20:45 07/11/25 21:00 Temperature Pulse Rate 112 H 107 H 105 H Respiratory Rate Blood Pressure Pulse Oximetry 07/11/25 22:00 07/12/25 00:00 07/12/25 04:00 Temperature 98.9 F Pulse Rate 107 H 100 100 Respiratory Rate 20 Blood Pressure 104/63 Pulse Oximetry 97 07/12/25 06:00 Temperature 98.7 F Pulse Rate 103 H Respiratory Rate 16 Blood Pressure 100/61 Pulse Oximetry 97 Intake/Output Intake/Output: Intake & Output 07/09/25 07/10/25 07/11/25 07/12/25 23:59 23:59 23:59 23:59 Intake Total 6188 6211 602 10 Output Total 400 Balance 1927 3839 602 10 Meds/Results Medications: Active Medications Generic Name Dose Route Start Last Admin Trade Name Freq PRN Reason Stop Dose Admin Acetaminophen 650 mg 07/08/25 20:08 07/08/25 20:51 Acetaminophen Elixir 325 Mg/10.15 Ml Udc PO 650 mg Q6H PRN Administration Mild Pain (1-3) or Fever Albuterol 2.5 mg 07/04/25 01:48 Albuterol Sulfate Neb 2.5 Mg/3 Ml Inh INHALATION Q4HRT PRN Shortness Of Breath Artificial Tears 1 drop 07/04/25 09:00 07/12/25 07:57 Artificial Tears Ophth Soln 15 Ml Bottle EACH EYE 1 drop TID MERLYN Administration Bisacodyl 5 mg 07/04/25 09:00 07/12/25 07:56 Bisacodyl 5 Mg Tablet Ec PO 5 mg DAILY MERLYN Administration Doxycycline Hyclate 100 mg 07/10/25 12:00 07/12/25 07:57 Doxycycline Hyclate 100 Mg Tablet FEED TUBE 100 mg Q12HR MERLYN Administration Famotidine 20 mg 07/04/25 09:00 07/12/25 07:57 Famotidine 20 Mg Tablet PO 20 mg BID MERLYN Administration Ferrous Sulfate 325 mg 07/05/25 09:00 07/12/25 07:56 Ferrous Sulfate 325 Mg Tablet PO 325 mg DAILY MERLYN Administration Heparin Sodium (Beef Lung) 50 units 07/04/25 09:00 07/12/25 07:57 Heparin Flush 50 Units/5 Ml Syringe IV PUSH Not Given QAM MERLYN Heparin Sodium (Beef Lung) 50 units 07/04/25 08:38 07/12/25 07:56 Heparin Flush 50 Units/5 Ml Syringe IV PUSH 50 units PRN PRN Administration after intermittent infusion Heparin Sodium (Beef Lung) 50 units 07/04/25 08:38 Heparin Flush 50 Units/5 Ml Syringe IV PUSH PRN PRN after blood draws Heparin Sodium (Porcine) 5,000 units 07/04/25 09:00 07/04/25 12:17 Heparin Sodium 5,000 Units/Ml Vial SUB-Q Not Given On Hold: 07/04/25 10:50 Q12HR MERLYN Heparin Sodium (Porcine) 500 units 07/04/25 08:38 Heparin Sodium Lock Flush 500 Units/5 Ml Syringe IV PUSH PRN PRN see comments below Vancomycin HCl 750 mg in 250 mls @ 250 mls/hr 07/12/25 04:00 07/12/25 03:58 Vancomycin 750 Mg/Ns 250 Ml IVPB 250 mls/hr Q36H MERLYN Administration Cefepime HCl 2 gm/ Sodium 50 mls @ 100 mls/hr 07/10/25 18:00 07/12/25 06:39 Chloride IVPB 100 mls/hr Q12H MERLYN Administration Iron Sucrose 200 mg/ Iron 265 mls @ 176.667 mls/hr 07/11/25 13:40 07/12/25 08:02 Sucrose 100 mg/ Sodium IVPB 07/13/25 10:29 176.67 mls/hr Chloride DAILY MERLYN Administration Metoprolol Tartrate 50 mg 07/04/25 09:00 07/12/25 07:57 Metoprolol Tartrate 50 Mg Tab PO 50 mg Q12HR MERLYN Administration Oxycodone HCl 5 mg 07/04/25 01:42 07/11/25 17:12 Oxycodone Hcl (*Crx) 5 Mg Tab Ir PO 5 mg Q8H PRN Administration Pain Polyethylene Glycol 17 gm 07/04/25 09:00 07/12/25 07:56 Polyethylene Glycol 3350 17 Gm Powd.Pack PO 17 gm QAM MERLYN Administration Pregabalin 75 mg 07/04/25 09:00 07/12/25 07:57 Pregabalin (*Crx) 75 Mg Capsule PO 75 mg DAILY MERLYN Administration Quetiapine Fumarate 25 mg 07/04/25 09:00 07/12/25 07:57 Quetiapine Fumarate 25 Mg Tablet PO 25 mg DAILY MERLYN Administration Senna 8.6 mg 07/04/25 01:42 07/05/25 09:32 Sennosides 8.6 Mg Tablet PO 8.6 mg DAILY PRN Administration Constipation Sodium Bicarbonate 325 mg 07/04/25 09:00 07/12/25 07:56 Sodium Bicarbonate Tab 325 Mg Tablet PO 325 mg BID MERYLN Administration Sodium Chloride 10 ml 07/04/25 14:00 07/12/25 06:40 Central Line Flush IV PUSH 10 ml Q8HR MERLYN Administration Sodium Hypochlorite 1 applic 07/06/25 09:00 07/12/25 07:58 Sod Hypochlorite 1/4 Strength 473 Ml TOPICAL 1 applic DAILY MERLYN Administration Sodium Zirconium Cyclosilicate 10 gm 07/10/25 15:10 07/11/25 22:42 Sodium Zirconium Cyclosilicate 10 Gm Powd.Pack PO 10 gm TID@1000,1500,2200 MERLYN Administration Thiamine HCl 300 mg 07/04/25 09:00 07/12/25 07:56 Thiamine Hcl 100 Mg Tablet FEED TUBE 300 mg QAM MERLYN Administration Trazodone HCl 50 mg 07/04/25 21:00 07/11/25 21:01 Trazodone Hcl 50 Mg Tablet PO 50 mg HS MERLYN Administration Radiology Results: ITS Impressions Abdomen/Pelvis CT 07/03/25 18:41 IMPRESSION: 1. No acute abnormality. 2. Additional findings as above. 3. Chronic right basilar atelectasis and/or airspace disease. Chest X-Ray 07/03/25 20:35 IMPRESSION: 1. Chronic right basilar atelectasis and/or airspace disease. 2. Similar but less severe findings left lung. Renal Ultrasound 07/04/25 14:59 Impression: Mild left hydronephrosis Labs Labs: Laboratory Results - last 24 hr 07/11/25 07/11/25 07/12/25 05:54 12:03 00:12 Haptoglobin 310 POC Capillary Glucose 109 H 111 H 07/12/25 06:19 Haptoglobin POC Capillary Glucose 91
[2025-07-12] MEDS: oxyCODONE HCL (*CRX) 5 MG TAB IR PO (10:13)
[2025-07-12] MEDS: SODIUM ZIRCONIUM CYCLOSILICATE 10 GM POWD.PACK PO (10:18)
[2025-07-12 12:03] LABS: Hematocrit 23.3 % (37.0-47.0); Immature Granulocyte Percent A 0.3 % (0-0.5); Lymphocytes Absolute Auto 1.43 K/mm3 (0.9-3.2); Mean Corpuscular HGB Conc 29.6 g/dl (32-36); Mean Corpuscular Hemoglobin 27.1 pg (26-34); Mean Corpuscular Volume 91.4 fl (80-100); Nucleated Red Blood Cells Absolute Auto 0.000 K/mm3 (0.0-0.012); Nucleated Red Blood Cells Perc 0.0 % (0.0-0.2); Platelet Count Result 257 k/mm3 (150-375); Red Blood Count 2.55 M/mm3 (4.2-5.4); White Blood Count 8.7 K/mm3 (4.5-10.0)
[2025-07-12 12:09] LABS: Hemoglobin 6.9 g/dL (12.0-15.0)
[2025-07-12 12:15] LABS: Alanine Aminotransferase 22 U/L (6-35); Albumin Level 2.8 g/dL (3.5-5.1); Alkaline Phosphatase 160 U/L (38-126); Anion Gap 7 mmol/L (4-12); Aspartate Amino Transferase 37 U/L (14-36); Bilirubin,Total 0.3 mg/dL (0.2-1.3); Blood Urea Nitrogen 57 mg/dL (7-17); Calcium 8.2 mg/dL (8.4-10.2); Carbon Dioxide 24 mmol/L (22-30); Chloride 105 mmol/L (98-107); Estimated CRCL calculation 33 ml/min; Estimated Glomerular Filt Rate 43; Glucose 106 mg/dL (65-110); Potassium 3.9 mmol/L (3.4-5.0); Sodium 136 mmol/L (137-145); Total Protein 7.1 g/dL (6.3-8.2)
[2025-07-12 12:24] LABS: Anisocytosis 1+; Hypochromasia 2+; Schistocytes None Seen
[2025-07-12 12:54] LABS: Hematocrit 26.5 % (37.0-47.0); Hemoglobin 8.0 g/dL (12.0-15.0)
--- NOTE | 2025-07-12 15:38 | P.PNIM_ITS ---
Progress Note: A&P Assessment and Plan (1) Pressure ulcers of skin of multiple topographic sites: Code(s): L89.90 - Pressure ulcer of unspecified site, unspecified stage Status: Chronic Assessment and Plan: * patient has multiple nonhealing wounds. Surgery followed on recent admit 05/2025. Patient underwent debridement of ischial wound during last hospitalization. * R ankle wound is tunneling to bone. * During last hospitalization, suprapubic catheter placement/diverting ostomy was discussed to aide in healing. Was delayed due to patient's coagulation profiles. Pradaxa has been on hold since that time and PT/INR and PTT have improved. Continue to hold Pradaxa. Consult urology for suprapubic catheter placement. * Concern for wound infection although general surgery feels all wounds appear clean. Leukocytosis initially improving with Rocephin so will continue for now pending surgery recs. WBC 12 today, mildly uptrending. Consider broadening antibiotics if continues to up trend. * General surgery consulted, appreciate recs. Considering R AKA. Patient is a [facility] and all consents will need to obtained from her guardian * Pending further recommendations from general surgery regarding possible R AKA * Will need above the knee amputation if approved by legal guardian-will happen on Sunday (2) Anemia: Code(s): D64.9 - Anemia, unspecified Status: Acute Assessment and Plan: * acute on chronic normocytic anemia * baseline Hgb around 8. Hgb 7.3 on admission and downtrended to 6.8 07/04 * last admit anemia was due to bleeding from wounds. No current signs of bleeding. * s/p 1 u PRBCs with improvement. Hgb now stable. * trend CBC. Transfuse Hgb <7 * iron studies consistent with iron deficiency. %ST<10, will give IV iron 300 mg daily x3 (3) Urinary tract infection: Code(s): N39.0 - Urinary tract infection, site not specified Status: Acute Assessment and Plan: * UA with 2+ LE, WBC 51-100 * urine culture 05/28/25 with Klebsiella pneumoniae and Providencia stuartii both sensitive to cephalosporins * admit WBC 18, afebrile, no leukocytosis * leukocytosis improving * initially started on Merrem. Transitioned to Rocephin. * Urine culture with no growth, but leukocytosis improving on Rocephin so will continue for now. * Urology consulted regarding possible suprapubic catheter placement as she is incontinent of urine/stool (4) RADHA (acute kidney injury): Code(s): N17.9 - Acute kidney failure, unspecified Status: Acute Assessment and Plan: * admit Cr 2.05. Baseline 1.2. S/p IV fluids * Cr improved to 1.30 * renal US with mild L hydronephrosis * voiding appropriately. Bladder scan without retention. * avoid nephrotoxins (5) Essential (primary) hypertension: Code(s): I10 - Essential (primary) hypertension Status: Acute Assessment and Plan: * continue home metoprolol with hold parameters (6) Generalized anxiety disorder: Code(s): F41.1 - Generalized anxiety disorder Status: Acute Assessment and Plan: * continue home citalopram, trazodone (7) Schizoaffective disorder: Code(s): F25.9 - Schizoaffective disorder, unspecified Status: Acute Assessment and Plan: * continue home trazodone (8) Multiple sclerosis: Code(s): G35 - Multiple sclerosis Status: Acute Assessment and Plan: * patient is contracted. * continue Lyrica and oxycodone (9) Gastrointestinal tube in situ: Code(s): Z93.1 - Gastrostomy status Status: Acute Assessment and Plan: * G tube was clogged on admission. GI replaced G tube 07/05 (10) History of pulmonary embolism: Code(s): Z86.711 - Personal history of pulmonary embolism Status: Acute Assessment and Plan: * Pradaxa has been on hold since last admission, will continue to hold in case need for surgical intervention Plan DVT prophylaxis: SCDs Code status: full code Dispo: back to [facility] once medically stable Time Spent With Patient Time: 35 minutes Subjective Date/time seen: 07/12/25 15:38 Interval history: she was anxious. No pain or discomfort. H/H repeat hgb 8 Review of Systems Review of Systems: All systems reviewed & are unremarkable except as noted in HPI and below Exam Narrative: APPEARANCE: Anxious EYES: EOMI HEENT: Normocephalic, atraumatic, OMM RESPIRATORY: No respiratory distress Clear to auscultation bilaterally with no rhonchi wheezing or rales. CARDIOVASCULAR: Right chest port noted, RRR, S1 and S2 without murmurs rubs or gallops. ABDOMINAL: Feeding tube site , Soft, nontender, nondistended, no rebound or guarding MSK: Quadriplegia NEURO: Quadriplegic, cerebral palsy SKIN:: Warm, dry. No rashes lesions or abrasions PSYCHIATRIC: Sad mood Back/Spine/Pelvis: Back: no CVA tenderness Cervical Spine: cervical ROM normal Objective Data Vital Signs Vital Signs: Vital Signs - 24 hr 07/11/25 16:00 07/11/25 20:45 07/11/25 21:00 Temperature Pulse Rate 112 H 107 H 105 H Respiratory Rate Blood Pressure Pulse Oximetry Oxygen Delivery 07/11/25 22:00 07/12/25 00:00 07/12/25 04:00 Temperature 37.2 C Pulse Rate 107 H 100 100 Respiratory Rate 20 Blood Pressure 104/63 Pulse Oximetry 97 Oxygen Delivery 07/12/25 06:00 07/12/25 08:00 07/12/25 08:00 Temperature 37.1 C Pulse Rate 103 H 104 H Respiratory Rate 16 Blood Pressure 100/61 Pulse Oximetry 97 Oxygen Delivery Room Air 07/12/25 13:51 Temperature 36.2 C L Pulse Rate 99 Respiratory Rate 16 Blood Pressure 122/71 Pulse Oximetry 95 Oxygen Delivery Intake/Output Intake/Output: Intake & Output 07/09/25 07/10/25 07/11/25 07/12/25 23:59 23:59 23:59 23:59 Intake Total 2579 5012 602 20 Output Total 400 Balance 2579 4612 602 20 Meds/Results Medications: Active Medications Generic Name Dose Route Start Last Admin Trade Name Freq PRN Reason Stop Dose Admin Acetaminophen 650 mg 07/08/25 20:08 07/08/25 20:51 Acetaminophen Elixir 325 Mg/10.15 Ml Udc PO 650 mg Q6H PRN Administration Mild Pain (1-3) or Fever Albuterol 2.5 mg 07/04/25 01:48 Albuterol Sulfate Neb 2.5 Mg/3 Ml Inh INHALATION Q4HRT PRN Shortness Of Breath Artificial Tears 1 drop 07/04/25 09:00 07/12/25 13:34 Artificial Tears Ophth Soln 15 Ml Bottle EACH EYE 1 drop TID MERLYN Administration Bisacodyl 5 mg 07/04/25 09:00 07/12/25 07:56 Bisacodyl 5 Mg Tablet Ec PO 5 mg DAILY MERLYN Administration Doxycycline Hyclate 100 mg 07/10/25 12:00 07/12/25 07:57 Doxycycline Hyclate 100 Mg Tablet FEED TUBE 100 mg Q12HR MERLYN Administration Famotidine 20 mg 07/04/25 09:00 07/12/25 07:57 Famotidine 20 Mg Tablet PO 20 mg BID MERLYN Administration Ferrous Sulfate 325 mg 07/05/25 09:00 07/12/25 07:56 Ferrous Sulfate 325 Mg Tablet PO 325 mg DAILY MERLYN Administration Heparin Sodium (Beef Lung) 50 units 07/04/25 09:00 07/12/25 07:57 Heparin Flush 50 Units/5 Ml Syringe IV PUSH Not Given QAM MERLYN Heparin Sodium (Beef Lung) 50 units 07/04/25 08:38 07/12/25 07:56 Heparin Flush 50 Units/5 Ml Syringe IV PUSH 50 units PRN PRN Administration after intermittent infusion Heparin Sodium (Beef Lung) 50 units 07/04/25 08:38 Heparin Flush 50 Units/5 Ml Syringe IV PUSH PRN PRN after blood draws Heparin Sodium (Porcine) 5,000 units 07/04/25 09:00 07/04/25 12:17 Heparin Sodium 5,000 Units/Ml Vial SUB-Q Not Given On Hold: 07/04/25 10:50 Q12HR MERLYN Heparin Sodium (Porcine) 500 units 07/04/25 08:38 Heparin Sodium Lock Flush 500 Units/5 Ml Syringe IV PUSH PRN PRN see comments below Vancomycin HCl 750 mg in 250 mls @ 250 mls/hr 07/12/25 04:00 07/12/25 03:58 Vancomycin 750 Mg/Ns 250 Ml IVPB 250 mls/hr Q36H MERLYN Administration Cefepime HCl 2 gm/ Sodium 50 mls @ 100 mls/hr 07/10/25 18:00 07/12/25 06:39 Chloride IVPB 100 mls/hr Q12H MERLYN Administration Iron Sucrose 200 mg/ Iron 265 mls @ 176.667 mls/hr 07/11/25 13:40 07/12/25 08:02 Sucrose 100 mg/ Sodium IVPB 07/13/25 10:29 176.67 mls/hr Chloride DAILY MERLYN Administration Metoprolol Tartrate 50 mg 07/04/25 09:00 07/12/25 07:57 Metoprolol Tartrate 50 Mg Tab PO 50 mg Q12HR MERLYN Administration Oxycodone HCl 5 mg 07/04/25 01:42 07/12/25 10:13 Oxycodone Hcl (*Crx) 5 Mg Tab Ir PO 5 mg Q8H PRN Administration Pain Polyethylene Glycol 17 gm 07/04/25 09:00 07/12/25 07:56 Polyethylene Glycol 3350 17 Gm Powd.Pack PO 17 gm QAM MERLYN Administration Pregabalin 75 mg 07/04/25 09:00 07/12/25 07:57 Pregabalin (*Crx) 75 Mg Capsule PO 75 mg DAILY MERLYN Administration Quetiapine Fumarate 25 mg 07/04/25 09:00 07/12/25 07:57 Quetiapine Fumarate 25 Mg Tablet PO 25 mg DAILY MERLYN Administration Senna 8.6 mg 07/04/25 01:42 07/05/25 09:32 Sennosides 8.6 Mg Tablet PO 8.6 mg DAILY PRN Administration Constipation Sodium Bicarbonate 325 mg 07/04/25 09:00 07/12/25 07:56 Sodium Bicarbonate Tab 325 Mg Tablet PO 325 mg BID MERLYN Administration Sodium Chloride 10 ml 07/04/25 14:00 07/12/25 13:35 Central Line Flush IV PUSH 10 ml Q8HR MRELYN Administration Sodium Hypochlorite 1 applic 07/06/25 09:00 07/12/25 07:58 Sod Hypochlorite 1/4 Strength 473 Ml TOPICAL 1 applic DAILY MERLYN Administration Sodium Zirconium Cyclosilicate 10 gm 07/10/25 15:10 07/12/25 10:18 Sodium Zirconium Cyclosilicate 10 Gm Powd.Pack PO 10 gm On Hold: 07/12/25 13:17 TID@1000,1500,2200 MERLYN Administration Thiamine HCl 300 mg 07/04/25 09:00 07/12/25 07:56 Thiamine Hcl 100 Mg Tablet FEED TUBE 300 mg QAM MERLYN Administration Trazodone HCl 50 mg 07/04/25 21:00 07/11/25 21:01 Trazodone Hcl 50 Mg Tablet PO 50 mg HS MERLYN Administration Radiology Results: ITS Impressions Abdomen/Pelvis CT 07/03/25 18:41 IMPRESSION: 1. No acute abnormality. 2. Additional findings as above. 3. Chronic right basilar atelectasis and/or airspace disease. Chest X-Ray 07/03/25 20:35 IMPRESSION: 1. Chronic right basilar atelectasis and/or airspace disease. 2. Similar but less severe findings left lung. Renal Ultrasound 07/04/25 14:59 Impression: Mild left hydronephrosis Labs Labs: Laboratory Results - last 24 hr 07/11/25 07/12/25 07/12/25 05:54 00:12 06:19 WBC RBC Hgb Hct MCV MCH MCHC RDW Plt Count MPV Immature Gran % (Auto) Neut % (Auto) Lymph % (Auto) [place] % (Auto) Eos % (Auto) Baso % (Auto) Lymph # (Auto) [place] # (Auto) Eos # (Auto) Baso # (Auto) Abs Immat Gran (auto) Absolute Neuts (auto) Absolute Nucleated RBC Band Neutrophils % Nucleated RBC % Platelet Estimate Hypochromasia Anisocytosis Schistocytes Haptoglobin 310 Sodium Potassium Chloride Carbon Dioxide Anion Gap BUN Creatinine Estim Creat Clear Calc Estimated GFR Glucose POC Capillary Glucose 111 H 91 Calcium Phosphorus Total Bilirubin AST ALT Alkaline Phosphatase Total Protein Albumin 07/12/25 07/12/25 07/12/25 11:28 11:41 12:41 WBC 8.7 RBC 2.55 L Hgb 6.9 L* 8.0 L Hct 23.3 L 26.5 L MCV 91.4 MCH 27.1 MCHC 29.6 L RDW 16.9 H Plt Count 257 MPV 10.8 H Immature Gran % (Auto) 0.3 Neut % (Auto) 72.3 Lymph % (Auto) 16.4 L [place] % (Auto) 5.3 Eos % (Auto) 5.4 H Baso % (Auto) 0.3 Lymph # (Auto) 1.43 [place] # (Auto) 0.5 Eos # (Auto) 0.5 H Baso # (Auto) 0.0 Abs Immat Gran (auto) 0.03 Absolute Neuts (auto) 6.3 Absolute Nucleated RBC 0.000 Band Neutrophils % Not Reportable Nucleated RBC % 0.0 Platelet Estimate Adequate Hypochromasia 2+ Anisocytosis 1+ Schistocytes None seen Haptoglobin Sodium 136 L Potassium 3.9 Chloride 105 Carbon Dioxide 24 Anion Gap 7 BUN 57 H Creatinine 1.27 H Estim Creat Clear Calc 33 Estimated GFR 43 L Glucose 106 POC Capillary Glucose 107 H Calcium 8.2 L Phosphorus 4.6 H Total Bilirubin 0.3 AST 37 H ALT 22 Alkaline Phosphatase 160 H Total Protein 7.1 Albumin 2.8 L
[2025-07-12] MEDS: METOPROLOL TARTRATE 50 MG TAB FEED TUBE (21:05)
[2025-07-12] MEDS: SODIUM ZIRCONIUM CYCLOSILICATE 10 GM POWD.PACK FEED TUBE (21:06)
[2025-07-12] MEDS: oxyCODONE HCL (*CRX) 5 MG TAB IR FEED TUBE (23:31)
[2025-07-13] VITALS (10 sets, daily range): BP systolic 95–100; BP diastolic 69–71; PULSE 100–108; RESP 16–18; TEMP 36.3–36.7; O2SAT 99–100
[2025-07-13] MEDS: HYDROmorphone HCL INJ (*CRX) 1 MG/ML SYR IV PUSH (03:53)
[2025-07-13] MEDS: CEFEPIME 2 GM in SODIUM CHLORIDE 0.9% IV 50 ML 100 ML IVPB ×2 (05:36→17:29)
[2025-07-13] MEDS: CENTRAL LINE FLUSH 10 ML IV PUSH ×3 (05:37→21:10)
[2025-07-13 06:49] LABS: Hematocrit 24.6 % (37.0-47.0); Hemoglobin 7.5 g/dL (12.0-15.0); Immature Granulocyte Percent A 0.5 % (0-0.5); Lymphocytes Absolute Auto 1.17 K/mm3 (0.9-3.2); Mean Corpuscular HGB Conc 30.5 g/dl (32-36); Mean Corpuscular Hemoglobin 27.8 pg (26-34); Mean Corpuscular Volume 91.1 fl (80-100); Nucleated Red Blood Cells Absolute Auto 0.000 K/mm3 (0.0-0.012); Nucleated Red Blood Cells Perc 0.0 % (0.0-0.2); Platelet Count Result 234 k/mm3 (150-375); Red Blood Count 2.70 M/mm3 (4.2-5.4); White Blood Count 8.7 K/mm3 (4.5-10.0)
[2025-07-13 07:35] LABS: Alanine Aminotransferase 18 U/L (6-35); Albumin Level 2.8 g/dL (3.5-5.1); Alkaline Phosphatase 183 U/L (38-126); Anion Gap 6 mmol/L (4-12); Aspartate Amino Transferase 26 U/L (14-36); Bilirubin,Total 0.3 mg/dL (0.2-1.3); Blood Urea Nitrogen 60 mg/dL (7-17); Calcium 8.2 mg/dL (8.4-10.2); Carbon Dioxide 26 mmol/L (22-30); Chloride 102 mmol/L (98-107); Estimated CRCL calculation 32 ml/min; Estimated Glomerular Filt Rate 42; Glucose 90 mg/dL (65-110); Potassium 3.5 mmol/L (3.4-5.0); Sodium 134 mmol/L (137-145); Total Protein 7.3 g/dL (6.3-8.2)
--- NOTE | 2025-07-13 07:43 | P.PNIM_ITS ---
Progress Note: A&P Assessment and Plan (1) Pressure ulcers of skin of multiple topographic sites: Code(s): L89.90 - Pressure ulcer of unspecified site, unspecified stage Status: Chronic Assessment and Plan: * patient has multiple nonhealing wounds. Surgery followed on recent admit 05/2025. Patient underwent debridement of ischial wound during last hospitalization. * R ankle wound is tunneling to bone. * During last hospitalization, suprapubic catheter placement/diverting ostomy was discussed to aide in healing. Was delayed due to patient's coagulation profiles. Pradaxa has been on hold since that time and PT/INR and PTT have improved. Continue to hold Pradaxa. Consult urology for suprapubic catheter placement. * Concern for wound infection although general surgery feels all wounds appear clean. Leukocytosis initially improving with Rocephin so will continue for now pending surgery recs. WBC 12 today, mildly uptrending. Consider broadening antibiotics if continues to up trend. * General surgery consulted, appreciate recs. Considering R AKA. Patient is a ramos of the [facility] and all consents will need to obtained from her guardian * Pending further recommendations from general surgery regarding possible R AKA * Will need above the knee amputation if approved by legal guardian (2) Anemia: Code(s): D64.9 - Anemia, unspecified Status: Acute Assessment and Plan: * acute on chronic normocytic anemia * baseline Hgb around 8. Hgb 7.3 on admission and downtrended to 6.8 07/04 * last admit anemia was due to bleeding from wounds. No current signs of bleeding. * s/p 1 u PRBCs with improvement. Hgb now stable. * trend CBC. Transfuse Hgb <7 * iron studies consistent with iron deficiency. %ST<10, will give IV iron 300 mg daily x3 (3) Urinary tract infection: Code(s): N39.0 - Urinary tract infection, site not specified Status: Acute Assessment and Plan: * UA with 2+ LE, WBC 51-100 * urine culture 05/28/25 with Klebsiella pneumoniae and Providencia stuartii both sensitive to cephalosporins * admit WBC 18, afebrile, no leukocytosis * leukocytosis improving * initially started on Merrem. Transitioned to Rocephin. * Urine culture with no growth, but leukocytosis improving on Rocephin so will continue for now. * Urology consulted regarding possible suprapubic catheter placement as she is incontinent of urine/stool (4) RADHA (acute kidney injury): Code(s): N17.9 - Acute kidney failure, unspecified Status: Acute Assessment and Plan: * admit Cr 2.05. Baseline 1.2. S/p IV fluids * Cr improved to 1.30 * renal US with mild L hydronephrosis * voiding appropriately. Bladder scan without retention. * avoid nephrotoxins (5) Essential (primary) hypertension: Code(s): I10 - Essential (primary) hypertension Status: Acute Assessment and Plan: * continue home metoprolol with hold parameters (6) Generalized anxiety disorder: Code(s): F41.1 - Generalized anxiety disorder Status: Acute Assessment and Plan: * continue home citalopram, trazodone (7) Schizoaffective disorder: Code(s): F25.9 - Schizoaffective disorder, unspecified Status: Acute Assessment and Plan: * continue home trazodone (8) Multiple sclerosis: Code(s): G35 - Multiple sclerosis Status: Acute Assessment and Plan: * patient is contracted. * continue Lyrica and oxycodone (9) Gastrointestinal tube in situ: Code(s): Z93.1 - Gastrostomy status Status: Acute Assessment and Plan: * G tube was clogged on admission. GI replaced G tube 07/05 (10) History of pulmonary embolism: Code(s): Z86.711 - Personal history of pulmonary embolism Status: Acute Assessment and Plan: * Pradaxa has been on hold since last admission, will continue to hold in case need for surgical intervention Plan DVT prophylaxis: SCDs Code status: full code Dispo: back to [facility] once medically stable Subjective Date/time seen: 07/13/25 07:43 Interval history: No acute overnight events. Repeat AM blood work shows Hgb 7.5 after transfusion yesterday. Still need to contact guardian regarding approval for R AKA. K has remained stable. Review of Systems Review of Systems: The patient is a very poor historian. She tells me that she still lives with her brother and sister however she is currently at the [facility]. All systems reviewed & are unremarkable except as noted in HPI and below ROS unobtainable: Yes unobtainable due to mental status ENT: Reports Normal hearing present Neurologic: Reports Normal hearing present Exam Narrative: APPEARANCE: Anxious EYES: EOMI HEENT: Normocephalic, atraumatic, OMM RESPIRATORY: No respiratory distress Clear to auscultation bilaterally with no rhonchi wheezing or rales. CARDIOVASCULAR: Right chest port noted, RRR, S1 and S2 without murmurs rubs or gallops. ABDOMINAL: Feeding tube site , Soft, nontender, nondistended, no rebound or guarding MSK: Quadriplegia NEURO: Quadriplegic, cerebral palsy SKIN:: Warm, dry. No rashes lesions or abrasions PSYCHIATRIC: Sad mood Const: General: cooperative, comfortable, no acute distress, well developed, awake, Physically active, ill appearing, average body habitus and well nourished Nutritional Appearance: average body habitus and well nourished Orientation/consciousness: oriented to person Other: Contracted arms and legs. HENMT: Head: normal to inspection, No palpable skull fracture present, normocephalic, atraumatic and abrasion Ears: hearing grossly normal bilaterally and external ears normal Eyes: General: appearance normal, both eyes and all related structures Alignment and Position: alignment normal Periorbital: periorbital findings normal Eyelids: eyelids normal Conjunctivae: conjunctivae normal Sclera: sclerae normal Cornea: corneas normal Pupils: Equal, round and reactive pupils present and Pupil accommodation reflex normal EOM: EOMs intact bilaterally Neck: Neck: normal visual inspection, full ROM, no lymphadenopathy and trachea midline Chest: Chest palpation & inspection: normal inspection of the chest Resp: Effort & Inspection: normal respiratory effort Auscultation: clear to auscultation bilaterally Percussion: percussion normal Cardio: Palpation: normal PMI Rate: regular rate Rhythm: regular rhythm Heart sounds: S1 normal heart sound present and S2 normal heart sound present Peripheral pulses: Peripheral pulses 2+ throughout GI: Inspection: normal to inspection Auscultation: normal bowel sounds Rectal Exam: deferred : General: Yes no CVA tenderness Back/Spine/Pelvis: Back: no CVA tenderness Cervical Spine: cervical ROM normal Skin: General skin exam: normal color Lesions: no lesions Rashes: no rashes Trauma: no lacerations or abrasions Wounds: no wounds Hair: normal Nails: normal Other: She has a dressing to her left foot and per records she has a sacral ulcer but I was not able to roll her over and looked at this time. Neuro: General: oriented to person Cranial nerves: Yes Equal, round and reactive pupils present and Yes Normal hearing present Extrem: General: normal to inspection Right upper extremity: normal to inspection and shoulder/upper arm Left upper extremity: normal to inspection and shoulder/upper arm Right lower extremity: normal to inspection Left lower extremity: normal to inspection Psych: Appearance: grossly normal Mental Status: mental status grossly normal Speech and movement: Normal speech and movement present Affect: normal affect Attitude: cooperative Thought process: Normal thought process present Insight: Poor insight present (Psych) Judgement: Poor judgement present (Psych) Objective Data Vital Signs Vital Signs: Vital Signs - 24 hr 07/12/25 08:00 07/12/25 08:00 07/12/25 12:00 Temperature Pulse Rate 104 H 95 Respiratory Rate Blood Pressure Pulse Oximetry Oxygen Delivery Room Air 07/12/25 13:51 07/12/25 16:00 07/12/25 20:00 Temperature 97.1 F L Pulse Rate 99 104 H 119 H Respiratory Rate 16 Blood Pressure 122/71 Pulse Oximetry 95 Oxygen Delivery 07/12/25 22:00 07/13/25 00:00 07/13/25 04:00 Temperature 97.4 F L Pulse Rate 122 H 103 H 100 Respiratory Rate 18 Blood Pressure 113/72 Pulse Oximetry 95 Oxygen Delivery 07/13/25 06:00 Temperature 97.8 F Pulse Rate 101 H Respiratory Rate 18 Blood Pressure 95/69 L Pulse Oximetry 99 Oxygen Delivery Intake/Output Intake/Output: Intake & Output 07/10/25 07/11/25 07/12/25 07/13/25 23:59 23:59 23:59 23:59 Intake Total 5012 602 487 630 Output Total 400 630 Balance 4612 602 487 0 Meds/Results Medications: Active Medications Generic Name Dose Route Start Last Admin Trade Name Freq PRN Reason Stop Dose Admin Acetaminophen 650 mg 07/12/25 20:47 Acetaminophen Elixir 325 Mg/10.15 Ml Udc FEED TUBE Q6H PRN Mild Pain (1-3) or Fever Albuterol 2.5 mg 07/04/25 01:48 Albuterol Sulfate Neb 2.5 Mg/3 Ml Inh INHALATION Q4HRT PRN Shortness Of Breath Artificial Tears 1 drop 07/04/25 09:00 07/12/25 17:02 Artificial Tears Ophth Soln 15 Ml Bottle EACH EYE 1 drop TID MERLYN Administration Bisacodyl 5 mg 07/04/25 09:00 07/12/25 07:56 Bisacodyl 5 Mg Tablet Ec PO 5 mg DAILY MERLYN Administration Doxycycline Hyclate 100 mg 07/10/25 12:00 07/12/25 21:05 Doxycycline Hyclate 100 Mg Tablet FEED TUBE 100 mg Q12HR MERLYN Administration Famotidine 20 mg 07/13/25 09:00 Famotidine 20 Mg Tablet FEED TUBE BID MERLYN Ferrous Sulfate 325 mg 07/13/25 09:00 Ferrous Sulfate Liquid 325 Mg/7.4 Ml Elixir FEED TUBE DAILY MERLYN Heparin Sodium (Beef Lung) 50 units 07/04/25 09:00 07/12/25 07:57 Heparin Flush 50 Units/5 Ml Syringe IV PUSH Not Given QAM MERLYN Heparin Sodium (Beef Lung) 50 units 07/04/25 08:38 07/12/25 07:56 Heparin Flush 50 Units/5 Ml Syringe IV PUSH 50 units PRN PRN Administration after intermittent infusion Heparin Sodium (Beef Lung) 50 units 07/04/25 08:38 Heparin Flush 50 Units/5 Ml Syringe IV PUSH PRN PRN after blood draws Heparin Sodium (Porcine) 5,000 units 07/04/25 09:00 07/04/25 12:17 Heparin Sodium 5,000 Units/Ml Vial SUB-Q Not Given On Hold: 07/04/25 10:50 Q12HR MERLYN Heparin Sodium (Porcine) 500 units 07/04/25 08:38 Heparin Sodium Lock Flush 500 Units/5 Ml Syringe IV PUSH PRN PRN see comments below Hydromorphone HCl 1 mg 07/13/25 02:34 07/13/25 03:53 Hydromorphone Hcl Inj (*Crx) 1 Mg/Ml Syr IV PUSH 1 mg Q4HR PRN Administration Pain Rated 7-10 Vancomycin HCl 750 mg in 250 mls @ 250 mls/hr 07/12/25 04:00 07/12/25 03:58 Vancomycin 750 Mg/Ns 250 Ml IVPB 250 mls/hr Q36H MERLYN Administration Cefepime HCl 2 gm/ Sodium 50 mls @ 100 mls/hr 07/10/25 18:00 07/13/25 05:36 Chloride IVPB 100 mls/hr Q12H MERLYN Administration Iron Sucrose 200 mg/ Iron 265 mls @ 176.667 mls/hr 07/11/25 13:40 07/12/25 08:02 Sucrose 100 mg/ Sodium IVPB 07/13/25 10:29 176.67 mls/hr Chloride DAILY MERLYN Administration Metoprolol Tartrate 50 mg 07/12/25 21:00 07/12/25 21:05 Metoprolol Tartrate 50 Mg Tab FEED TUBE 50 mg Q12HR MERLYN Administration Oxycodone HCl 5 mg 07/12/25 20:45 07/12/25 23:31 Oxycodone Hcl (*Crx) 5 Mg Tab Ir FEED TUBE 5 mg Q8H PRN Administration PAIN RATED 7-10 Polyethylene Glycol 17 gm 07/13/25 09:00 Polyethylene Glycol 3350 17 Gm Powd.Pack FEED TUBE QAM MERLYN Pregabalin 75 mg 07/13/25 09:00 Pregabalin (*Crx) 75 Mg Capsule FEED TUBE DAILY [facility] Quetiapine Fumarate 25 mg 07/13/25 09:00 Quetiapine Fumarate 25 Mg Tablet FEED TUBE DAILY MERLYN Senna 8.6 mg 07/12/25 20:44 Sennosides 8.6 Mg Tablet FEED TUBE DAILY PRN Constipation Sodium Bicarbonate 325 mg 07/13/25 09:00 Sodium Bicarbonate Tab 325 Mg Tablet FEED TUBE BID MERLYN Sodium Chloride 10 ml 07/04/25 14:00 07/13/25 05:37 Central Line Flush IV PUSH 10 ml Q8HR MERLYN Administration Sodium Hypochlorite 1 applic 07/06/25 09:00 07/12/25 07:58 Sod Hypochlorite 1/4 Strength 473 Ml TOPICAL 1 applic DAILY MERLYN Administration Sodium Zirconium Cyclosilicate 10 gm 07/12/25 22:00 07/12/25 21:06 Sodium Zirconium Cyclosilicate 10 Gm Powd.Pack FEED TUBE 10 gm TID@1000,1500,2200 MERLYN Administration Thiamine HCl 300 mg 07/04/25 09:00 07/12/25 07:56 Thiamine Hcl 100 Mg Tablet FEED TUBE 300 mg QAM MERLYN Administration Trazodone HCl 50 mg 07/12/25 21:00 07/12/25 21:05 Trazodone Hcl 50 Mg Tablet FEED TUBE 50 mg HS MERLYN Administration Radiology Results: ITS Impressions Abdomen/Pelvis CT 07/03/25 18:41 IMPRESSION: 1. No acute abnormality. 2. Additional findings as above. 3. Chronic right basilar atelectasis and/or airspace disease. Chest X-Ray 07/03/25 20:35 IMPRESSION: 1. Chronic right basilar atelectasis and/or airspace disease. 2. Similar but less severe findings left lung. Renal Ultrasound 07/04/25 14:59 Impression: Mild left hydronephrosis Labs Labs: Laboratory Results - last 24 hr 07/12/25 07/12/25 07/12/25 11:28 11:41 12:41 WBC 8.7 RBC 2.55 L Hgb 6.9 L* 8.0 L Hct 23.3 L 26.5 L MCV 91.4 MCH 27.1 MCHC 29.6 L RDW 16.9 H Plt Count 257 MPV 10.8 H Immature Gran % (Auto) 0.3 Neut % (Auto) 72.3 Lymph % (Auto) 16.4 L [place] % (Auto) 5.3 Eos % (Auto) 5.4 H Baso % (Auto) 0.3 Lymph # (Auto) 1.43 [place] # (Auto) 0.5 Eos # (Auto) 0.5 H Baso # (Auto) 0.0 Abs Immat Gran (auto) 0.03 Absolute Neuts (auto) 6.3 Absolute Nucleated RBC 0.000 Band Neutrophils % Not Reportable Nucleated RBC % 0.0 Platelet Estimate Adequate Hypochromasia 2+ Anisocytosis 1+ Schistocytes None seen Sodium 136 L Potassium 3.9 Chloride 105 Carbon Dioxide 24 Anion Gap 7 BUN 57 H Creatinine 1.27 H Estim Creat Clear Calc 33 Estimated GFR 43 L Glucose 106 POC Capillary Glucose 107 H Calcium 8.2 L Phosphorus 4.6 H Total Bilirubin 0.3 AST 37 H ALT 22 Alkaline Phosphatase 160 H Total Protein 7.1 Albumin 2.8 L 07/12/25 07/12/25 07/13/25 17:58 23:27 06:03 WBC 8.7 RBC 2.70 L Hgb 7.5 L Hct 24.6 L MCV 91.1 MCH 27.8 MCHC 30.5 L RDW 16.7 H Plt Count 234 MPV 11.3 H Immature Gran % (Auto) 0.5 Neut % (Auto) 75.0 H Lymph % (Auto) 13.5 L [place] % (Auto) 5.5 Eos % (Auto) 5.2 H Baso % (Auto) 0.3 Lymph # (Auto) 1.17 [place] # (Auto) 0.5 Eos # (Auto) 0.5 H Baso # (Auto) 0.0 Abs Immat Gran (auto) 0.04 H Absolute Neuts (auto) 6.5 Absolute Nucleated RBC 0.000 Band Neutrophils % Nucleated RBC % 0.0 Platelet Estimate Hypochromasia Anisocytosis Schistocytes Sodium 134 L Potassium 3.5 Chloride 102 Carbon Dioxide 26 Anion Gap 6 BUN 60 H Creatinine 1.31 H Estim Creat Clear Calc 32 Estimated GFR 42 L Glucose 90 POC Capillary Glucose 103 105 Calcium 8.2 L Phosphorus Total Bilirubin 0.3 AST 26 ALT 18 Alkaline Phosphatase 183 H Total Protein 7.3 Albumin 2.8 L Quality VTE Prophylaxis VTE prophylaxis: mechanical ordered
[2025-07-13] MEDS: SOD HYPOCHLORITE 1/4 STRENGTH 473 ML 1 APPLIC TOPICAL (09:45)
[2025-07-13] MEDS: IRON SUCROSE COMPLEX 200 MG, IRON SUCROSE COMPLEX 100 MG in SODIUM CHLORIDE 0.9% IV 250 ML 176.67 MG IVPB (09:50)
--- NOTE | 2025-07-13 10:01 | P.PNNP_ITS ---
Progress Note: A&P Assessment and Plan (1) Hyperkalemia: Code(s): E87.5 - Hyperkalemia Status: Acute Assessment and Plan: * resolved * as noted in the last few days * suspect due to several issues: * extensive wounds as noted * RADHA on admission * anemia (? hemolysis) * known CKD (GFR likely worse than reported due to low muscle mass) * evaluation limited: * difficult to obtain urine testing (to calculate TTKG) * Renin and aldosterone pending * started on Nephro tube feeds and low K+ diet * lokelma discontinued * follow trend of K+ level (2) Stage 3 chronic kidney disease: Code(s): N18.30 - Chronic kidney disease, stage 3 unspecified Status: Chronic Assessment and Plan: * baseline creatinine seems to run around 1.1 - 1.5mg/dL in the last year * has fluctuated to extremes in association with acute hosptializations (has been as high as 2.66mg/dL) * presumably due to solitary kidney/loss of nephron mass, recurrent UTIs/infections and associated hospitalizations * HOWEVER, with very low muscle mass her creatinine clearance is probably much lower than reflected by estimation from blood work. (3) Pressure ulcers of skin of multiple topographic sites: Code(s): L89.90 - Pressure ulcer of unspecified site, unspecified stage Status: Chronic Assessment and Plan: * sginificant issue/problems as outlined on previous and this current hospitalization * Surgery recommendations noted for: * left AKA * diverting colostomy * suprapubic catheter placement * continue local wound care * on antibiotics (4) Anemia: Code(s): D64.9 - Anemia, unspecified Status: Acute Assessment and Plan: * acute on chronic * likely related to acute illness * CKD probably playing a role as well * PRBC transfusion per protocol * follow trend of H/H * may need to consider AJ while hospitalized (5) Urinary tract infection: Code(s): N39.0 - Urinary tract infection, site not specified Status: Acute Assessment and Plan: * as suspected by admission UA * however, urine culture results noted * remains on antibiotics (more so for #3) (6) Essential (primary) hypertension: Code(s): I10 - Essential (primary) hypertension Status: Acute Assessment and Plan: * soft BP on admission * reasonable control at this hollie * BP medications with parameters * follow trend of hemodynamics (7) History of pulmonary embolism: Code(s): Z86.711 - Personal history of pulmonary embolism Status: Acute Assessment and Plan: * holding Pradaxa at this time * awaiting need for possible surgical intervention * should patient be on IV heparin until we know about surgery? (8) Multiple sclerosis: Code(s): G35 - Multiple sclerosis Status: Acute Assessment and Plan: * known history * pain control as noted Not much else to add -- will continue to follow intermittently. L Subjective Date/time seen: 07/13/25 10:01 Interval history: Follow-up for hyperkalemia and chronic kidney disease. Chart reviewed since last seen -- potassium appears to have stabilized in the last few days; off lokelma as of yesterday; renal function/creatinine remains stable; no apparent distress noted at the time of my visit. Exam 2 Narrative: General: thin female in NAD Heart: normal S1 and S2; no rub Lungs: clear to auscultation Abdomen: soft, nontender, nondistended, positive bowel sounds Extremities: no cyanosis or clubbing; no edema; + contractures Skin: warm and dry Objective Data Vital Signs Vital Signs: Vital Signs Temp Pulse Resp BP Pulse Ox O2 Del Method 07/13/25 08:00 102 H Room Air 07/13/25 06:00 97.8 F 101 H 18 95/69 L 99 07/13/25 04:00 100 07/13/25 00:00 103 H 07/12/25 22:00 97.4 F L 122 H 18 113/72 95 07/12/25 20:00 119 H 07/12/25 16:00 104 H 07/12/25 13:51 97.1 F L 99 16 122/71 95 Intake/Output Intake/Output: Intake & Output 07/10/25 07/11/25 07/12/25 07/13/25 23:59 23:59 23:59 23:59 Intake Total 5012 602 752 630 Output Total 400 630 Balance 4612 602 752 0 Meds/Results Medications: Active Medications Generic Name Dose Route Start Last Admin Trade Name Freq PRN Reason Stop Dose Admin Acetaminophen 650 mg 07/12/25 20:47 Acetaminophen Elixir 325 Mg/10.15 Ml Udc FEED TUBE Q6H PRN Mild Pain (1-3) or Fever Albuterol 2.5 mg 07/04/25 01:48 Albuterol Sulfate Neb 2.5 Mg/3 Ml Inh INHALATION Q4HRT PRN Shortness Of Breath Artificial Tears 1 drop 07/04/25 09:00 07/12/25 17:02 Artificial Tears Ophth Soln 15 Ml Bottle EACH EYE 1 drop TID MERLYN Administration Bisacodyl 5 mg 07/04/25 09:00 07/12/25 07:56 Bisacodyl 5 Mg Tablet Ec PO 5 mg DAILY MERLYN Administration Famotidine 20 mg 07/13/25 09:00 Famotidine 20 Mg Tablet FEED TUBE BID MERLYN Ferrous Sulfate 325 mg 07/13/25 09:00 Ferrous Sulfate Liquid 325 Mg/7.4 Ml Elixir FEED TUBE DAILY MERLYN Heparin Sodium (Beef Lung) 50 units 07/04/25 09:00 07/12/25 07:57 Heparin Flush 50 Units/5 Ml Syringe IV PUSH Not Given QAM [facility] Heparin Sodium (Beef Lung) 50 units 07/04/25 08:38 07/12/25 07:56 Heparin Flush 50 Units/5 Ml Syringe IV PUSH 50 units PRN PRN Administration after intermittent infusion Heparin Sodium (Beef Lung) 50 units 07/04/25 08:38 Heparin Flush 50 Units/5 Ml Syringe IV PUSH PRN PRN after blood draws Heparin Sodium (Porcine) 5,000 units 07/04/25 09:00 07/04/25 12:17 Heparin Sodium 5,000 Units/Ml Vial SUB-Q Not Given On Hold: 07/04/25 10:50 Q12HR [facility] Heparin Sodium (Porcine) 500 units 07/04/25 08:38 Heparin Sodium Lock Flush 500 Units/5 Ml Syringe IV PUSH PRN PRN see comments below Hydromorphone HCl 1 mg 07/13/25 02:34 07/13/25 03:53 Hydromorphone Hcl Inj (*Crx) 1 Mg/Ml Syr IV PUSH 1 mg Q4HR PRN Administration Pain Rated 7-10 Vancomycin HCl 750 mg in 250 mls @ 250 mls/hr 07/12/25 04:00 07/12/25 03:58 Vancomycin 750 Mg/Ns 250 Ml IVPB 250 mls/hr Q36H MERLYN Administration Cefepime HCl 2 gm/ Sodium 50 mls @ 100 mls/hr 07/10/25 18:00 07/13/25 05:36 Chloride IVPB 100 mls/hr Q12H MERLYN Administration Metoprolol Tartrate 50 mg 07/12/25 21:00 07/12/25 21:05 Metoprolol Tartrate 50 Mg Tab FEED TUBE 50 mg Q12HR MERLYN Administration Oxycodone HCl 5 mg 07/12/25 20:45 07/12/25 23:31 Oxycodone Hcl (*Crx) 5 Mg Tab Ir FEED TUBE 5 mg Q8H PRN Administration PAIN RATED 7-10 Polyethylene Glycol 17 gm 07/13/25 09:00 Polyethylene Glycol 3350 17 Gm Powd.Pack FEED TUBE QAM MERLYN Pregabalin 75 mg 07/13/25 09:00 Pregabalin (*Crx) 75 Mg Capsule FEED TUBE DAILY MERLYN Quetiapine Fumarate 25 mg 07/13/25 09:00 Quetiapine Fumarate 25 Mg Tablet FEED TUBE DAILY MERLYN Senna 8.6 mg 07/12/25 20:44 Sennosides 8.6 Mg Tablet FEED TUBE DAILY PRN Constipation Sodium Bicarbonate 325 mg 07/13/25 09:00 Sodium Bicarbonate Tab 325 Mg Tablet FEED TUBE BID MERLYN Sodium Chloride 10 ml 07/04/25 14:00 07/13/25 05:37 Central Line Flush IV PUSH 10 ml Q8HR MERLYN Administration Sodium Hypochlorite 1 applic 07/06/25 09:00 07/12/25 07:58 Sod Hypochlorite 1/4 Strength 473 Ml TOPICAL 1 applic DAILY MERLYN Administration Thiamine HCl 300 mg 07/04/25 09:00 07/12/25 07:56 Thiamine Hcl 100 Mg Tablet FEED TUBE 300 mg QAM MERLYN Administration Trazodone HCl 50 mg 07/12/25 21:00 07/12/25 21:05 Trazodone Hcl 50 Mg Tablet FEED TUBE 50 mg HS MERLYN Administration Radiology Results: ITS Impressions Abdomen/Pelvis CT 07/03/25 18:41 IMPRESSION: 1. No acute abnormality. 2. Additional findings as above. 3. Chronic right basilar atelectasis and/or airspace disease. Chest X-Ray 07/03/25 20:35 IMPRESSION: 1. Chronic right basilar atelectasis and/or airspace disease. 2. Similar but less severe findings left lung. Renal Ultrasound 07/04/25 14:59 Impression: Mild left hydronephrosis Labs Labs: Laboratory Tests 07/13/25 06:03 07/13/25 06:03 Calcium 8.2 L Total Bilirubin 0.3 AST 26 ALT 18 Alkaline Phosphatase 183 H Total Protein 7.3 Albumin 2.8 L
[2025-07-13] MEDS: ARTIFICIAL TEARS OPHTH SOLN 15 ML BOTTLE 1 DROP EACH EYE ×2 (13:00→17:03)
--- NOTE | 2025-07-13 16:09 | PM.PNGS ---
Progress Note: A&P Assessment and Plan (1) Pressure ulcers of skin of multiple topographic sites: Code(s): L89.90 - Pressure ulcer of unspecified site, unspecified stage Status: Chronic Assessment and Plan: Afebrile. Clinically appears stable. WBC normalized to 8.7. Bun/Cr remains elevated. Awaiting consent from patient legal guardian, Abe Burnham, to proceed with a left above the knee amputation. Fax sent last week, but still no response. Of note, patient would also benefit from diverting colostomy and suprapubic catheter placement as she is incontinent of urine and stool. Posterior wounds often contaminated with urine and stool. Urology was consulted and would be agreeable to place catheter if in conjunction with general surgery procedure. Patient's contractures and anatomy make it difficult for any surgical procedure so proper coordination and planning would be necessary. Continue daily dressing changes with Dakin's soaked gauze. Continue IV antibiotics. Plan I have discussed the patient's case and plan of care with Dr. Covarrubias. Subjective Subjective Date/Time Seen: 07/13/25 16:09 Patient reports: no new complaints, bowel movement and afebrile Interval history: Patient is stable. Slightly tachycardic, but all other vitals stable. WBC 8.7. Exam Const: General: comfortable and no acute distress Eyes: General: appearance normal, both eyes and all related structures Neck: Neck: supple and no JVD Resp: Effort & Inspection: normal respiratory effort Cardio: Rate: tachycardic Skin: General skin exam: normal color Other: Wounds dressed by nursing staff today. Objective Data Vital Signs Vital Signs: Vital Signs - 24 hr 07/12/25 20:00 07/12/25 22:00 07/13/25 00:00 Temperature 97.4 F L Pulse Rate 119 H 122 H 103 H Respiratory Rate 18 Blood Pressure 113/72 Pulse Oximetry 95 Oxygen Delivery 07/13/25 04:00 07/13/25 06:00 07/13/25 08:00 Temperature 97.8 F Pulse Rate 100 101 H Respiratory Rate 18 Blood Pressure 95/69 L Pulse Oximetry 99 Oxygen Delivery Room Air 07/13/25 08:00 07/13/25 12:00 07/13/25 14:00 Temperature 97.3 F L Pulse Rate 102 H 102 H 105 H Respiratory Rate 18 Blood Pressure 100/71 Pulse Oximetry 100 Oxygen Delivery Intake/Output Intake/Output: Intake & Output 07/10/25 07/11/25 07/12/25 07/13/25 23:59 23:59 23:59 23:59 Intake Total 5012 602 752 630 Output Total 400 630 Balance 4612 602 752 0 Meds/Results Medications: Active Medications Generic Name Dose Route Start Last Admin Trade Name Freq PRN Reason Stop Dose Admin Acetaminophen 650 mg 07/12/25 20:47 Acetaminophen Elixir 325 Mg/10.15 Ml Udc FEED TUBE Q6H PRN Mild Pain (1-3) or Fever Albuterol 2.5 mg 07/04/25 01:48 Albuterol Sulfate Neb 2.5 Mg/3 Ml Inh INHALATION Q4HRT PRN Shortness Of Breath Artificial Tears 1 drop 07/04/25 09:00 07/13/25 13:00 Artificial Tears Ophth Soln 15 Ml Bottle EACH EYE 1 drop TID MERLYN Administration Bisacodyl 5 mg 07/04/25 09:00 07/13/25 14:16 Bisacodyl 5 Mg Tablet Ec PO Not Given DAILY MERLYN Famotidine 20 mg 07/13/25 09:00 07/13/25 14:16 Famotidine 20 Mg Tablet FEED TUBE Not Given BID MERLYN Ferrous Sulfate 325 mg 07/13/25 09:00 07/13/25 14:16 Ferrous Sulfate Liquid 325 Mg/7.4 Ml Elixir FEED TUBE Not Given DAILY MERLYN Heparin Sodium (Beef Lung) 50 units 07/04/25 09:00 07/13/25 14:50 Heparin Flush 50 Units/5 Ml Syringe IV PUSH 50 units QAM MERLYN Administration Heparin Sodium (Beef Lung) 50 units 07/04/25 08:38 07/12/25 07:56 Heparin Flush 50 Units/5 Ml Syringe IV PUSH 50 units PRN PRN Administration after intermittent infusion Heparin Sodium (Beef Lung) 50 units 07/04/25 08:38 Heparin Flush 50 Units/5 Ml Syringe IV PUSH PRN PRN after blood draws Heparin Sodium (Porcine) 5,000 units 07/04/25 09:00 07/04/25 12:17 Heparin Sodium 5,000 Units/Ml Vial SUB-Q Not Given On Hold: 07/04/25 10:50 Q12HR MERLYN Heparin Sodium (Porcine) 500 units 07/04/25 08:38 Heparin Sodium Lock Flush 500 Units/5 Ml Syringe IV PUSH PRN PRN see comments below Hydromorphone HCl 1 mg 07/13/25 02:34 07/13/25 03:53 Hydromorphone Hcl Inj (*Crx) 1 Mg/Ml Syr IV PUSH 1 mg Q4HR PRN Administration Pain Rated 7-10 Vancomycin HCl 750 mg in 250 mls @ 250 mls/hr 07/12/25 04:00 07/12/25 03:58 Vancomycin 750 Mg/Ns 250 Ml IVPB 250 mls/hr Q36H MERLYN Administration Cefepime HCl 2 gm/ Sodium 50 mls @ 100 mls/hr 07/10/25 18:00 07/13/25 05:36 Chloride IVPB 100 mls/hr Q12H MERLYN Administration Metoprolol Tartrate 50 mg 07/12/25 21:00 07/13/25 14:15 Metoprolol Tartrate 50 Mg Tab FEED TUBE Not Given Q12HR MERLYN Oxycodone HCl 5 mg 07/12/25 20:45 07/12/25 23:31 Oxycodone Hcl (*Crx) 5 Mg Tab Ir FEED TUBE 5 mg Q8H PRN Administration PAIN RATED 7-10 Polyethylene Glycol 17 gm 07/13/25 09:00 07/13/25 14:15 Polyethylene Glycol 3350 17 Gm Powd.Pack FEED TUBE Not Given QAM REPLACED BY [facility] Pregabalin 75 mg 07/13/25 09:00 07/13/25 14:15 Pregabalin (*Crx) 75 Mg Capsule FEED TUBE Not Given DAILY REPLACED BY [facility] Quetiapine Fumarate 25 mg 07/13/25 09:00 07/13/25 14:15 Quetiapine Fumarate 25 Mg Tablet FEED TUBE Not Given DAILY REPLACED BY [facility] Senna 8.6 mg 07/12/25 20:44 Sennosides 8.6 Mg Tablet FEED TUBE DAILY PRN Constipation Sodium Bicarbonate 325 mg 07/13/25 09:00 07/13/25 14:15 Sodium Bicarbonate Tab 325 Mg Tablet FEED TUBE Not Given BID MERLYN Sodium Chloride 10 ml 07/04/25 14:00 07/13/25 14:50 Central Line Flush IV PUSH 10 ml Q8HR MERLYN Administration Sodium Hypochlorite 1 applic 07/06/25 09:00 07/13/25 09:45 Sod Hypochlorite 1/4 Strength 473 Ml TOPICAL 1 applic DAILY MERLYN Administration Thiamine HCl 300 mg 07/04/25 09:00 07/13/25 14:15 Thiamine Hcl 100 Mg Tablet FEED TUBE Not Given QAM MERLYN Trazodone HCl 50 mg 07/12/25 21:00 07/12/25 21:05 Trazodone Hcl 50 Mg Tablet FEED TUBE 50 mg HS MERLYN Administration Radiology Results: ITS Impressions Abdomen/Pelvis CT 07/03/25 18:41 IMPRESSION: 1. No acute abnormality. 2. Additional findings as above. 3. Chronic right basilar atelectasis and/or airspace disease. Chest X-Ray 07/03/25 20:35 IMPRESSION: 1. Chronic right basilar atelectasis and/or airspace disease. 2. Similar but less severe findings left lung. Renal Ultrasound 07/04/25 14:59 Impression: Mild left hydronephrosis Labs Labs: Laboratory Results - last 24 hr 07/12/25 07/12/25 07/13/25 17:58 23:27 06:03 WBC 8.7 RBC 2.70 L Hgb 7.5 L Hct 24.6 L MCV 91.1 MCH 27.8 MCHC 30.5 L RDW 16.7 H Plt Count 234 MPV 11.3 H Immature Gran % (Auto) 0.5 Neut % (Auto) 75.0 H Lymph % (Auto) 13.5 L Forest % (Auto) 5.5 Eos % (Auto) 5.2 H Baso % (Auto) 0.3 Lymph # (Auto) 1.17 Forest # (Auto) 0.5 Eos # (Auto) 0.5 H Baso # (Auto) 0.0 Abs Immat Gran (auto) 0.04 H Absolute Neuts (auto) 6.5 Absolute Nucleated RBC 0.000 Nucleated RBC % 0.0 Sodium 134 L Potassium 3.5 Chloride 102 Carbon Dioxide 26 Anion Gap 6 BUN 60 H Creatinine 1.31 H Estim Creat Clear Calc 32 Estimated GFR 42 L Glucose 90 POC Capillary Glucose 103 105 Calcium 8.2 L Total Bilirubin 0.3 AST 26 ALT 18 Alkaline Phosphatase 183 H Total Protein 7.3 Albumin 2.8 L 07/13/25 07/13/25 11:33 13:00 WBC RBC Hgb Hct MCV MCH MCHC RDW Plt Count MPV Immature Gran % (Auto) Neut % (Auto) Lymph % (Auto) Forest % (Auto) Eos % (Auto) Baso % (Auto) Lymph # (Auto) Forest # (Auto) Eos # (Auto) Baso # (Auto) Abs Immat Gran (auto) Absolute Neuts (auto) Absolute Nucleated RBC Nucleated RBC % Sodium Potassium Chloride Carbon Dioxide Anion Gap BUN Creatinine Estim Creat Clear Calc Estimated GFR Glucose POC Capillary Glucose 87 87 Calcium Total Bilirubin AST ALT Alkaline Phosphatase Total Protein Albumin
[2025-07-13] MEDS: FAMOTIDINE 20 MG TABLET FEED TUBE (17:02)
[2025-07-13] MEDS: SODIUM BICARBONATE TAB 325 MG TABLET FEED TUBE (17:02)
[2025-07-13] MEDS: VANCOMYCIN 750 MG/NS 250 ML 750 MG/250 ML BAG 250 MG IVPB (18:10)
[2025-07-14] VITALS (10 sets, daily range): BP systolic 106–140; BP diastolic 72–82; PULSE 76–110; RESP 16–18; TEMP 35.9–36.2; O2SAT 98–100
[2025-07-14] MEDS: CENTRAL LINE FLUSH 10 ML IV PUSH ×3 (04:55→21:23)
[2025-07-14] MEDS: CEFEPIME 2 GM in SODIUM CHLORIDE 0.9% IV 50 ML 100 ML IVPB ×2 (04:55→17:50)
[2025-07-14 06:08] LABS: Hematocrit 23.8 % (37.0-47.0); Hemoglobin 7.3 g/dL (12.0-15.0); Immature Granulocyte Percent A 0.4 % (0-0.5); Immature Platelet Fraction Pct 4.1 % (0.9-11.2); Lymphocytes Absolute Auto 1.08 K/mm3 (0.9-3.2); Mean Corpuscular HGB Conc 30.7 g/dl (32-36); Mean Corpuscular Hemoglobin 28.0 pg (26-34); Mean Corpuscular Volume 91.2 fl (80-100); Nucleated Red Blood Cells Absolute Auto 0.000 K/mm3 (0.0-0.012); Nucleated Red Blood Cells Perc 0.0 % (0.0-0.2); Platelet Count Result 193 k/mm3 (150-375); Red Blood Count 2.61 M/mm3 (4.2-5.4); White Blood Count 8.1 K/mm3 (4.5-10.0)
[2025-07-14 06:27] LABS: Alanine Aminotransferase 20 U/L (6-35); Albumin Level 3.0 g/dL (3.5-5.1); Alkaline Phosphatase 203 U/L (38-126); Anion Gap 5 mmol/L (4-12); Aspartate Amino Transferase 38 U/L (14-36); Bilirubin,Total 0.5 mg/dL (0.2-1.3); Blood Urea Nitrogen 58 mg/dL (7-17); Calcium 8.6 mg/dL (8.4-10.2); Carbon Dioxide 27 mmol/L (22-30); Chloride 105 mmol/L (98-107); Estimated CRCL calculation 33 ml/min; Estimated Glomerular Filt Rate 43; Glucose 97 mg/dL (65-110); Potassium 3.9 mmol/L (3.4-5.0); Sodium 137 mmol/L (137-145); Total Protein 7.8 g/dL (6.3-8.2)
--- NOTE | 2025-07-14 08:35 | P.PNIM_ITS ---
Progress Note: A&P Assessment and Plan (1) Pressure ulcers of skin of multiple topographic sites: Code(s): L89.90 - Pressure ulcer of unspecified site, unspecified stage Status: Chronic Assessment and Plan: * patient has multiple nonhealing wounds. Surgery followed on recent admit 05/2025. Patient underwent debridement of ischial wound during last hospitalization. * R ankle wound is tunneling to bone. * During last hospitalization, suprapubic catheter placement/diverting ostomy was discussed to aide in healing. Was delayed due to patient's coagulation profiles. Pradaxa has been on hold since that time and PT/INR and PTT have improved. Continue to hold Pradaxa. Consult urology for suprapubic catheter placement. * Concern for wound infection although general surgery feels all wounds appear clean. Leukocytosis initially improving with Rocephin so will continue for now pending surgery recs. WBC 12 today, mildly uptrending. Consider broadening antibiotics if continues to up trend. * General surgery consulted, appreciate recs. Considering R AKA. Patient is a ramos of the [facility] and all consents will need to obtained from her guardian * Pending further recommendations from general surgery regarding possible R AKA * Will need above the knee amputation if approved by legal guardian (2) Anemia: Code(s): D64.9 - Anemia, unspecified Status: Acute Assessment and Plan: * acute on chronic normocytic anemia * baseline Hgb around 8. Hgb 7.3 on admission and downtrended to 6.8 07/04 * last admit anemia was due to bleeding from wounds. No current signs of bleeding. * s/p 1 u PRBCs with improvement. Hgb now stable. * trend CBC. Transfuse Hgb <7 * iron studies consistent with iron deficiency. %ST<10, will give IV iron 300 mg daily x3 (3) Urinary tract infection: Code(s): N39.0 - Urinary tract infection, site not specified Status: Acute Assessment and Plan: * UA with 2+ LE, WBC 51-100 * urine culture 05/28/25 with Klebsiella pneumoniae and Providencia stuartii both sensitive to cephalosporins * admit WBC 18, afebrile, no leukocytosis * leukocytosis improving * initially started on Merrem. Transitioned to Rocephin. * Urine culture with no growth, but leukocytosis improving on Rocephin so will continue for now. * Urology consulted regarding possible suprapubic catheter placement as she is incontinent of urine/stool (4) RADHA (acute kidney injury): Code(s): N17.9 - Acute kidney failure, unspecified Status: Acute Assessment and Plan: * admit Cr 2.05. Baseline 1.2. S/p IV fluids * Cr improved to 1.30 * renal US with mild L hydronephrosis * voiding appropriately. Bladder scan without retention. * avoid nephrotoxins (5) Essential (primary) hypertension: Code(s): I10 - Essential (primary) hypertension Status: Acute Assessment and Plan: * continue home metoprolol with hold parameters (6) Generalized anxiety disorder: Code(s): F41.1 - Generalized anxiety disorder Status: Acute Assessment and Plan: * continue home citalopram, trazodone (7) Schizoaffective disorder: Code(s): F25.9 - Schizoaffective disorder, unspecified Status: Acute Assessment and Plan: * continue home trazodone (8) Multiple sclerosis: Code(s): G35 - Multiple sclerosis Status: Acute Assessment and Plan: * patient is contracted. * continue Lyrica and oxycodone (9) Gastrointestinal tube in situ: Code(s): Z93.1 - Gastrostomy status Status: Acute Assessment and Plan: * G tube was clogged on admission. GI replaced G tube 07/05 (10) History of pulmonary embolism: Code(s): Z86.711 - Personal history of pulmonary embolism Status: Acute Assessment and Plan: * Pradaxa has been on hold since last admission, will continue to hold in case need for surgical intervention Plan DVT prophylaxis: SCDs Code status: full code Dispo: back to [facility] once medically stable Subjective Date/time seen: 07/14/25 08:35 Interval history: Patient resting in bed comfortably at time of examination. No pain or discomfort at this time. Repeat hemoglobin 7.3 today. Patient will need authorization through guardian as she is ramos of the [facility] for any major surgeries, including limb amputation/colostomy. Review of Systems Review of Systems: The patient is a very poor historian. She tells me that she still lives with her brother and sister however she is currently at the half-way. All systems reviewed & are unremarkable except as noted in HPI and below ROS unobtainable: Yes unobtainable due to mental status ENT: Reports Normal hearing present Neurologic: Reports Normal hearing present Exam Narrative: APPEARANCE: Anxious EYES: EOMI HEENT: Normocephalic, atraumatic, OMM RESPIRATORY: No respiratory distress Clear to auscultation bilaterally with no rhonchi wheezing or rales. CARDIOVASCULAR: Right chest port noted, RRR, S1 and S2 without murmurs rubs or gallops. ABDOMINAL: Feeding tube site , Soft, nontender, nondistended, no rebound or guarding MSK: Quadriplegia NEURO: Quadriplegic, cerebral palsy SKIN:: Warm, dry. No rashes lesions or abrasions PSYCHIATRIC: Sad mood Const: General: cooperative, comfortable, no acute distress, well developed, awake, Physically active, ill appearing, average body habitus and well nourished Nutritional Appearance: average body habitus and well nourished Orientation/consciousness: oriented to person Other: Contracted arms and legs. HENMT: Head: normal to inspection, No palpable skull fracture present, normocephalic, atraumatic and abrasion Ears: hearing grossly normal bilaterally and external ears normal Eyes: General: appearance normal, both eyes and all related structures Alignment and Position: alignment normal Periorbital: periorbital findings normal Eyelids: eyelids normal Conjunctivae: conjunctivae normal Sclera: sclerae normal Cornea: corneas normal Pupils: Equal, round and reactive pupils present and Pupil accommodation reflex normal EOM: EOMs intact bilaterally Neck: Neck: normal visual inspection, full ROM, no lymphadenopathy and trachea midline Chest: Chest palpation & inspection: normal inspection of the chest Resp: Effort & Inspection: normal respiratory effort Auscultation: clear to auscultation bilaterally Percussion: percussion normal Cardio: Palpation: normal PMI Rate: regular rate Rhythm: regular rhythm Heart sounds: S1 normal heart sound present and S2 normal heart sound present Peripheral pulses: Peripheral pulses 2+ throughout GI: Inspection: normal to inspection Auscultation: normal bowel sounds Rectal Exam: deferred : General: Yes no CVA tenderness Back/Spine/Pelvis: Back: no CVA tenderness Cervical Spine: cervical ROM normal Skin: General skin exam: normal color Lesions: no lesions Rashes: no rashes Trauma: no lacerations or abrasions Wounds: no wounds Hair: normal Nails: normal Other: She has a dressing to her left foot and per records she has a sacral ulcer but I was not able to roll her over and looked at this time. Neuro: General: oriented to person Cranial nerves: Yes Equal, round and reactive pupils present and Yes Normal hearing present Extrem: General: normal to inspection Right upper extremity: normal to inspection and shoulder/upper arm Left upper extremity: normal to inspection and shoulder/upper arm Right lower extremity: normal to inspection Left lower extremity: normal to inspection Psych: Appearance: grossly normal Mental Status: mental status grossly normal Speech and movement: Normal speech and movement present Affect: n ormal affect Attitude: cooperative Thought process: Normal thought process present Insight: Poor insight present (Psych) Judgement: Poor judgement present (Psych) Objective Data Vital Signs Vital Signs: Vital Signs - 24 hr 07/13/25 12:00 07/13/25 14:00 07/13/25 16:00 Temperature 97.3 F L Pulse Rate 102 H 105 H 108 H Respiratory Rate 18 Blood Pressure 100/71 Pulse Oximetry 100 07/13/25 20:15 07/13/25 20:31 07/13/25 21:09 Temperature 98.0 F Pulse Rate 100 105 H 105 H Respiratory Rate 16 Blood Pressure 98/71 L Pulse Oximetry 100 07/14/25 00:00 07/14/25 04:00 07/14/25 05:59 Temperature 96.6 F L Pulse Rate 100 90 106 H Respiratory Rate 18 Blood Pressure 106/72 Pulse Oximetry 100 Intake/Output Intake/Output: Intake & Output 07/11/25 07/12/25 07/13/25 07/14/25 23:59 23:59 23:59 23:59 Intake Total 602 1002 730 Output Total 630 Balance 602 1002 100 Meds/Results Medications: Active Medications Generic Name Dose Route Start Last Admin Trade Name Freq PRN Reason Stop Dose Admin Acetaminophen 650 mg 07/12/25 20:47 Acetaminophen Elixir 325 Mg/10.15 Ml Udc FEED TUBE Q6H PRN Mild Pain (1-3) or Fever Albuterol 2.5 mg 07/04/25 01:48 Albuterol Sulfate Neb 2.5 Mg/3 Ml Inh INHALATION Q4HRT PRN Shortness Of Breath Artificial Tears 1 drop 07/04/25 09:00 07/13/25 17:03 Artificial Tears Ophth Soln 15 Ml Bottle EACH EYE 1 drop TID MERLYN Administration Bisacodyl 5 mg 07/04/25 09:00 07/13/25 14:16 Bisacodyl 5 Mg Tablet Ec PO Not Given DAILY MERLYN Famotidine 20 mg 07/13/25 09:00 07/13/25 17:02 Famotidine 20 Mg Tablet FEED TUBE 20 mg BID MERLYN Administration Ferrous Sulfate 325 mg 07/13/25 09:00 07/13/25 14:16 Ferrous Sulfate Liquid 325 Mg/7.4 Ml Elixir FEED TUBE Not Given DAILY MERLYN Heparin Sodium (Beef Lung) 50 units 07/04/25 09:00 07/13/25 14:50 Heparin Flush 50 Units/5 Ml Syringe IV PUSH 50 units QAM MERLYN Administration Heparin Sodium (Beef Lung) 50 units 07/04/25 08:38 07/12/25 07:56 Heparin Flush 50 Units/5 Ml Syringe IV PUSH 50 units PRN PRN Administration after intermittent infusion Heparin Sodium (Beef Lung) 50 units 07/04/25 08:38 Heparin Flush 50 Units/5 Ml Syringe IV PUSH PRN PRN after blood draws Heparin Sodium (Porcine) 5,000 units 07/04/25 09:00 07/04/25 12:17 Heparin Sodium 5,000 Units/Ml Vial SUB-Q Not Given On Hold: 07/04/25 10:50 Q12HR MERLYN Heparin Sodium (Porcine) 500 units 07/04/25 08:38 Heparin Sodium Lock Flush 500 Units/5 Ml Syringe IV PUSH PRN PRN see comments below Hydromorphone HCl 1 mg 07/13/25 02:34 07/13/25 03:53 Hydromorphone Hcl Inj (*Crx) 1 Mg/Ml Syr IV PUSH 1 mg Q4HR PRN Administration Pain Rated 7-10 Vancomycin HCl 750 mg in 250 mls @ 250 mls/hr 07/12/25 04:00 07/13/25 18:10 Vancomycin 750 Mg/Ns 250 Ml IVPB 250 mls/hr Q36H MERLYN Administration Cefepime HCl 2 gm/ Sodium 50 mls @ 100 mls/hr 07/10/25 18:00 07/14/25 04:55 Chloride IVPB 100 mls/hr Q12H MERLYN Administration Metoprolol Tartrate 50 mg 07/12/25 21:00 07/13/25 21:09 Metoprolol Tartrate 50 Mg Tab FEED TUBE Not Given Q12HR MERLYN Oxycodone HCl 5 mg 07/12/25 20:45 07/12/25 23:31 Oxycodone Hcl (*Crx) 5 Mg Tab Ir FEED TUBE 5 mg Q8H PRN Administration PAIN RATED 7-10 Polyethylene Glycol 17 gm 07/13/25 09:00 07/13/25 14:15 Polyethylene Glycol 3350 17 Gm Powd.Pack FEED TUBE Not Given QAM [facility] Pregabalin 75 mg 07/13/25 09:00 07/13/25 14:15 Pregabalin (*Crx) 75 Mg Capsule FEED TUBE Not Given DAILY [facility] Quetiapine Fumarate 25 mg 07/13/25 09:00 07/13/25 14:15 Quetiapine Fumarate 25 Mg Tablet FEED TUBE Not Given DAILY [facility] Senna 8.6 mg 07/12/25 20:44 Sennosides 8.6 Mg Tablet FEED TUBE DAILY PRN Constipation Sodium Bicarbonate 325 mg 07/13/25 09:00 07/13/25 17:02 Sodium Bicarbonate Tab 325 Mg Tablet FEED TUBE 325 mg BID MERLYN Administration Sodium Chloride 10 ml 07/04/25 14:00 07/14/25 04:55 Central Line Flush IV PUSH 10 ml Q8HR MERLYN Administration Sodium Hypochlorite 1 applic 07/06/25 09:00 07/13/25 09:45 Sod Hypochlorite 1/4 Strength 473 Ml TOPICAL 1 applic DAILY MERLYN Administration Thiamine HCl 300 mg 07/04/25 09:00 07/13/25 14:15 Thiamine Hcl 100 Mg Tablet FEED TUBE Not Given QAM MERLYN Trazodone HCl 50 mg 07/12/25 21:00 07/13/25 21:10 Trazodone Hcl 50 Mg Tablet FEED TUBE 50 mg HS MERLYN Administration Radiology Results: ITS Impressions Abdomen/Pelvis CT 07/03/25 18:41 IMPRESSION: 1. No acute abnormality. 2. Additional findings as above. 3. Chronic right basilar atelectasis and/or airspace disease. Chest X-Ray 07/03/25 20:35 IMPRESSION: 1. Chronic right basilar atelectasis and/or airspace disease. 2. Similar but less severe findings left lung. Renal Ultrasound 07/04/25 14:59 Impression: Mild left hydronephrosis Labs Labs: Laboratory Results - last 24 hr 07/13/25 07/13/25 07/13/25 11:33 13:00 16:03 WBC RBC Hgb Hct MCV MCH MCHC RDW Plt Count MPV Immature Gran % (Auto) Neut % (Auto) Lymph % (Auto) Cross % (Auto) Eos % (Auto) Baso % (Auto) Lymph # (Auto) Cross # (Auto) Eos # (Auto) Baso # (Auto) Abs Immat Gran (auto) Absolute Neuts (auto) Absolute Nucleated RBC Nucleated RBC % % Immature Plt Fraction Sodium Potassium Chloride Carbon Dioxide Anion Gap BUN Creatinine Estim Creat Clear Calc Estimated GFR Glucose POC Capillary Glucose 87 87 Calcium Total Bilirubin AST ALT Alkaline Phosphatase Total Protein Albumin Vancomycin Trough 16.3 07/13/25 07/13/25 07/13/25 17:12 18:29 23:55 WBC RBC Hgb Hct MCV MCH MCHC RDW Plt Count MPV Immature Gran % (Auto) Neut % (Auto) Lymph % (Auto) Cross % (Auto) Eos % (Auto) Baso % (Auto) Lymph # (Auto) Cross # (Auto) Eos # (Auto) Baso # (Auto) Abs Immat Gran (auto) Absolute Neuts (auto) Absolute Nucleated RBC Nucleated RBC % % Immature Plt Fraction Sodium Potassium Chloride Carbon Dioxide Anion Gap BUN Creatinine Estim Creat Clear Calc Estimated GFR Glucose POC Capillary Glucose 78 101 106 H Calcium Total Bilirubin AST ALT Alkaline Phosphatase Total Protein Albumin Vancomycin Trough 07/14/25 07/14/25 05:56 06:21 WBC 8.1 RBC 2.61 L Hgb 7.3 L Hct 23.8 L MCV 91.2 MCH 28.0 MCHC 30.7 L RDW 16.4 H Plt Count 193 MPV 11.3 H Immature Gran % (Auto) 0.4 Neut % (Auto) 76.8 H Lymph % (Auto) 13.4 L Cross % (Auto) 4.8 Eos % (Auto) 4.2 Baso % (Auto) 0.4 Lymph # (Auto) 1.08 Cross # (Auto) 0.4 Eos # (Auto) 0.3 Baso # (Auto) 0.0 Abs Immat Gran (auto) 0.03 Absolute Neuts (auto) 6.2 Absolute Nucleated RBC 0.000 Nucleated RBC % 0.0 % Immature Plt Fraction 4.1 Sodium 137 Potassium 3.9 Chloride 105 Carbon Dioxide 27 Anion Gap 5 BUN 58 H Creatinine 1.26 H Estim Creat Clear Calc 33 Estimated GFR 43 L Glucose 97 POC Capillary Glucose 96 Calcium 8.6 Total Bilirubin 0.5 AST 38 H ALT 20 Alkaline Phosphatase 203 H Total Protein 7.8 Albumin 3.0 L Vancomycin Trough Quality VTE Prophylaxis VTE prophylaxis: mechanical ordered
[2025-07-14] MEDS: ARTIFICIAL TEARS OPHTH SOLN 15 ML BOTTLE 1 DROP EACH EYE ×2 (08:57→14:42)
--- NOTE | 2025-07-14 10:29 | WPDCDIQUERY2 ---
CDI Query Clarification Request ER mentioned sepsis, as well as sepsis protocol ignited on 07/10 please clarify if this diagnosis has been ruled in or ruled out. Hospitalist documented: ER documented: Patient presents the emergency department for abdominal discomfort, nausea and vomiting. She is afebrile and nontoxic appearing. Multiple chronic pressure wounds. None appear acutely infected at this time. Blood pressure soft and patient tachycardic upon arrival. This normalized with IV fluids. CBC with leukocytosis. Hemoglobin appears similar to previous. Metabolic panel with evidence of dehydration. Pending UA, CT abdomen pelvis care taken over by MELISSA Walker with plan for likely admission. 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, Multiple sclerosis, History of infection with vancomycin resistant Enterococcus (VRE) Sepsis Qualifiers: Sepsis type: sepsis due to unspecified organism Sepsis acute organ dysfunction status: without acute organ dysfunction Qualified Code(s): A41.9 - Sepsis, unspecified organism Decubitus ulcers Qualifiers: Pressure injury location: unspecified location Pressure injury stage: unspecified pressure injury stage Qualified Code(s): L89.90 - Pressure ulcer of unspecified site, unspecified stage Urinary tract infection Qualifiers: Urinary tract infection type: acute cystitis Hematuria presence: without hematuria Qualified Code(s): N30.00 - Acute cystitis without hematuria Hospitalist: Assessment and Plan (1) Pressure ulcers of skin of multiple topographic sites: Code(s): L89.90 - Pressure ulcer of unspecified site, unspecified stage Status: Chronic Assessment and Plan: - patient has multiple nonhealing wounds. Surgery followed on recent admit 05/2025. Patient underwent debridement of ischial wound during last hospitalization. - R ankle wound is tunneling to bone. - during last hospitalization, suprapubic catheter placement/diverting ostomy was discussed to aide in healing. Was delayed due to patient's coagulation profiles. Pradaxa has been on hold since that time and PT/INR and PTT have improved. Continue to hold Pradaxa. Consult urology for suprapubic catheter placement. - concern for wound infection although general surgery feels all wounds appear clean. Leukocytosis initially improving with Rocephin so will continue for now pending surgery recs. WBC 12 today, mildly uptrending. Consider broadening antibiotics if continues to uptrend. - general surgery consulted, appreciate recs. Considering R AKA. Patient is a r[place] of the state and all consents will need to obtained from her guardian. (2) Anemia: Code(s): D64.9 - Anemia, unspecified Status: Acute Assessment and Plan: - acute on chronic normocytic anemia - baseline Hgb around 8. Hgb 7.3 on admission and downtrended to 6.8 07/04 - last admit anemia was due to bleeding from wounds. No current signs of bleeding. - s/p 1 u PRBCs with improvement. Hgb now stable. - trend CBC. Transfuse Hgb <7 - iron studies consistent with iron deficiency. Started iron supplement. (3) Urinary tract infection: Code(s): N39.0 - Urinary tract infection, site not specified Status: Acute Assessment and Plan: - UA with 2+ LE, WBC 51-100 - urine culture 05/28/25 with Klebsiella pneumoniae and Providencia stuartii both sensitive to cephalosporins - admit WBC 18, afebrile, no leukocytosis - leukocytosis improving - initially started on Merrem. Transitioned to Rocephin. Urine culture with no growth, but leukocytosis improving on Rocephin so will continue for now. (4) RADHA (acute kidney injury): Code(s): N17.9 - Acute kidney failure, unspecified Status: Acute Assessment and Plan: - admit Cr 2.05. Baseline 1.2. S/p IV fluids - Cr improved to 1.30 - renal US with mild L hydronephrosis - voiding appropriately. Bladder scan without retention. - avoid nephrotoxins Hospitalist documented on 07/10 Will repeat Sepsis protocol workup as WBC uptrending, now tachycardic along with history of multiple open wounds - Repeat blood cultures, obtain wound cultures, start Vancomycin, continue Rocephin/Doxy - Suspected source: Open wounds Hyperkalemia - Persistent despite Lokelma - Will place on low K diet - Nephrology consult WBC: 18.9, 11.3, 11.0, 10.6 Lactic: 1.0 07/03 documented: heart rate: 109,101 b/p: 92/67, 96/68 Respirations: 30, 23, 25 IV abx started Blood Culture, Routine Final 07/10/25-1510 LC No aerobic or anaerobic growth in five days. Blood Culture, Routine Preliminary 07/14/25-908 LC No growth in 48 hours. <Oliva Colbert RN - Last Filed: 07/14/25 10:34> Clarified Diagnosis Clarified Diagnosis: Sepsis has been ruled out <Pablo Dan PA-C - Last Filed: 07/14/25 11:23>
--- NOTE | 2025-07-14 13:19 | PCNFU ---
Nutrition Follow-Up Complete: Moderate protein calorie malnutrition related to chronic illness and increased energy expenditure as evidenced by multiple pressure injuries, less than 75% intake greater than 1 month, a significant weight loss of -6% x 1 month, and NFPE findings for moderate subcutaneous fat loss and muscle wasting. Goal:PO intake of supplements Pt not meeting goal. New goal to meet estimated needs via tube feeding Pt current nutrition is Low K+ diet, Tube feeding: Nepro @ 40ml/hr with 175ml flush q 4 hrs to provide 1584kcals, 71g protein, 1690ml free water. Nutrition recommendation: Recommend to restart AYALA BID, use tube to ensure pt receives Last recorded weight is 48.9 kg. Bowel Motility: +BM 07/13 Labs Reviewed: Hgb:7.3, HCT:23.8, alb:3.0, BUN:58, Cr:1.2, Phos:4.6 Meds Noted: miralax, thiamine Skin: Multiple pressure ulcers Additional Notes: Pt continues on a low K+ diet, intake poor via po. Tube feeding continues at Nepro @ 40ml/hr and meeting 88% of estimated needs, 100% of protein needs. Agree with orders, resume AYALA BID for wound healing. Monitor intake, wt, labs. Follow up in every Sunday and Sunday.
--- NOTE | 2025-07-14 13:50 | PM.PNGS ---
Progress Note: A&P Assessment and Plan (1) Pressure ulcers of skin of multiple topographic sites: Code(s): L89.90 - Pressure ulcer of unspecified site, unspecified stage Status: Chronic Assessment and Plan: The patient presented to [facility] Via EMS from [facility] on 07/03/2025 with concern for lower abdominal pain and vomiting. While in the emergency department, patient was noted to have multiple chronic pressure wounds. The general surgery team was consulted to evaluate these wounds.? She is well-known to the service, as she has had multiple? surgical debridements and hospitalizations for these wounds.? Upon examination of this patient, the right posterior scapula, sacral, right ischial, left ischial, right posterior thigh, and right heel all appear stable since last seen during patient?s most recent admission from 05/28/25 to 06/05/2025. However, the wound to her right dorsal foot appears to have increased in severity, now with necrotic tissue, tendon, and bone exposed. What appears to be synovial fluid from the ankle joint is leaking from the wound. While we could attempt to debride this wound, this would not be advisable as it is unlikely to ever heal and would necessitate frequent, difficult dressing changes. Another option that we pondered was a [id number] amputation. However, due to the patient?s severe contractions of her lower extremities, this would also require concurrent tendon severance by orthopedic team. A [id number] amputation would leave the patient with a lower leg stump that would still be exposed to pressure from patient?s mattress and her left leg. This would ultimately lead to a pressure wound to the stump. With all of this taken into consideration, we believe it is in the patient?s best interest to undergo a right above the knee amputation. Being that the patient is bedbound and does not have any mobility of her legs, this would not affect her physical function. This would provide the least likelihood of any recurring pressure wounds to the limb. Additionally, the patient is incontinent of both stool and urine. Multiple attempts at urinary catheter placement have been made without any success. The patient?s anatomy and contractures make this very difficult. Also due to these deformities, a Purewick catheter is unable to effectively collect urine. This essentially leaves the patient?s wounds subject to contamination with urine and feces. With this being said, we would recommend a possible placement of a suprapubic catheter and a diverting colostomy in the future. Afebrile. Clinically appears stable. WBC normalized to 8.1. Bun/Cr remains elevated. In our professional opinion, a right above the knee amputation would most benefit the patient. Spoke today with patient's state appointed legal guardian, Abe Burnham, who would like to get a 2nd opinion from a tertiary care center regarding the possibility of a muscle graft. While patient is here at [facility], we would like to do a bedside debridement of her right dorsal foot and heel wounds. Attempted to call Abe Burnham this afternoon for verbal consent, but was unable to reach him. Continue daily dressing changes with Dakin's soaked gauze. Continue IV antibiotics. Plan I have discussed the patient's case and plan of care with Dr. Covarrubias. Subjective Subjective Date/Time Seen: 07/14/25 13:50 Patient reports: no new complaints Interval history: Patient bed pads, as well as her wound dressings fully saturated with urine. Changed with [employer]. Patient's mental status seems a bit changed from baseline. Exam Const: General: comfortable and no acute distress Skin: Other: Stage III right posterior scapula decubitus ulcer measuring 5 x 3 x 0.5 cm with 100% pink tissue. No purulent drainage or surrounding erythema of the skin. Stage IV sacral decubitus ulcer measuring 4 x 3 x 1.5 cm with 100% pink healthy tissue, no bone exposed, no purulent drainage. No surrounding erythema the skin. Stage III left ischial decubitus ulcer measuring 2 x 2 x 1.5 cm with 100% pink healthy tissue, no purulent drainage. No surrounding erythema of the skin. Stage III right ischial decubitus ulcer measuring 6 x 4 x 2 cm with 90% healthy pink tissue and about 10% yellow slough. Drainage on the dressing is yellow exudate that is easily wiped away. No purulent drainage. No surrounding erythema. Stage III right posterior thigh decubitus ulcer which is below the greater trochanter, measuring 3 x 4 x 1 cm with 100% yellow slough, wound bed is firm, no crepitus, no purulence drainage, no surrounding erythema the skin. Bilateral lower extremities are contracted with deformities of her feet. There is a stage III right heel ulcer measuring 6 x 4 x 0.3 cm with 70% healthy pink tissue and a central area that is a soft superficial crain eschar in about 30% of the wound. No purulent drainage, no bone exposed. There is another large wound on the right dorsal foot extending over the lateral malleolus measuring 11 x 10 cm with about 80% pink healthy tissue, but the center of the wound has loose yellow/campos necrotic tissue with severed tendons visible, bone at the lateral malleolus is exposed and there is clear fluid draining from what appears to be the ankle joint that is exposed at the center of the wound. The foot appears deformed, but there is no significant warmth or erythema of the foot. No purulence drainage coming from either wound on the right foot. She has no movement of her bilateral lower extremities. Left foot has no wounds. Her sacral and ischial wounds were saturated in urine on exam. Patient has depends on. Catheter unable to be placed. Purewick unable to function properly. Objective Data Vital Signs Vital Signs: Vital Signs - 24 hr 07/13/25 14:00 07/13/25 16:00 07/13/25 20:15 Temperature 97.3 F L Pulse Rate 105 H 108 H 100 Respiratory Rate 18 Blood Pressure 100/71 Pulse Oximetry 100 07/13/25 20:31 07/13/25 21:09 07/14/25 00:00 Temperature 98.0 F Pulse Rate 105 H 105 H 100 Respiratory Rate 16 Blood Pressure 98/71 L Pulse Oximetry 100 07/14/25 04:00 07/14/25 05:59 07/14/25 13:34 Temperature 96.6 F L 96.6 F L Pulse Rate 90 106 H 110 H Respiratory Rate 18 16 Blood Pressure 106/72 140/82 Pulse Oximetry 100 98 Intake/Output Intake/Output: Intake & Output 07/11/25 07/12/25 07/13/25 07/14/25 23:59 23:59 23:59 23:59 Intake Total 602 1002 730 Output Total 630 Balance 602 1002 100 Meds/Results Medications: Active Medications Generic Name Dose Route Start Last Admin Trade Name Freq PRN Reason Stop Dose Admin Acetaminophen 650 mg 07/14/25 12:39 Acetaminophen 325 Mg Tablet BY MOUTH Q6H PRN Mild Pain (1-3) or Fever Albuterol 2.5 mg 07/04/25 01:48 Albuterol Sulfate Neb 2.5 Mg/3 Ml Inh INHALATION Q4HRT PRN Shortness Of Breath Artificial Tears 1 drop 07/04/25 09:00 07/14/25 08:57 Artificial Tears Ophth Soln 15 Ml Bottle EACH EYE 1 drop TID MERLYN Administration Bisacodyl 5 mg 07/04/25 09:00 07/13/25 14:16 Bisacodyl 5 Mg Tablet Ec PO Not Given DAILY MERLYN Dextrose 12.5 gm 07/14/25 09:38 Dextrose 50% 25 Gm/50 Ml Syringe IV PUSH PRN PRN Hypoglycemia Protocol Famotidine 20 mg 07/14/25 21:00 Famotidine 20 Mg Tablet PO Q12HR MERLYN Ferrous Sulfate 325 mg 07/15/25 09:00 Ferrous Sulfate 325 Mg Tablet BY MOUTH DAILY MERLYN Glucagon 1 mg 07/14/25 09:38 Glucagon For Inj 1 Mg Vial IM PRN PRN Hypoglycemia Protocol Glucose 15 gm 07/14/25 09:38 Glucose Oral Gel 15 Gm Of Glucse In 37.5 Gm Tube PO PRN PRN Hypoglycemia Protocol Heparin Sodium (Beef Lung) 50 units 07/04/25 09:00 07/14/25 08:57 Heparin Flush 50 Units/5 Ml Syringe IV PUSH 50 units QAM MERLYN Administration Heparin Sodium (Beef Lung) 50 units 07/04/25 08:38 07/12/25 07:56 Heparin Flush 50 Units/5 Ml Syringe IV PUSH 50 units PRN PRN Administration after intermittent infusion Heparin Sodium (Beef Lung) 50 units 07/04/25 08:38 Heparin Flush 50 Units/5 Ml Syringe IV PUSH PRN PRN after blood draws Heparin Sodium (Porcine) 5,000 units 07/04/25 09:00 07/04/25 12:17 Heparin Sodium 5,000 Units/Ml Vial SUB-Q Not Given On Hold: 07/04/25 10:50 Q12HR MERLYN Heparin Sodium (Porcine) 500 units 07/04/25 08:38 Heparin Sodium Lock Flush 500 Units/5 Ml Syringe IV PUSH PRN PRN see comments below Hydromorphone HCl 1 mg 07/13/25 02:34 07/13/25 03:53 Hydromorphone Hcl Inj (*Crx) 1 Mg/Ml Syr IV PUSH 1 mg Q4HR PRN Administration Pain Rated 7-10 Vancomycin HCl 750 mg in 250 mls @ 250 mls/hr 07/12/25 04:00 07/13/25 18:10 Vancomycin 750 Mg/Ns 250 Ml IVPB 250 mls/hr Q36H MERLYN Administration Cefepime HCl 2 gm/ Sodium 50 mls @ 100 mls/hr 07/10/25 18:00 07/14/25 04:55 Chloride IVPB 100 mls/hr Q12H MERLYN Administration Dextrose 1,000 mls @ 100 mls/hr 07/14/25 09:38 Dextrose 5% 1,000 Ml IVPB PRN PRN Hypoglycemia Protocol Metoprolol Tartrate 50 mg 07/14/25 21:00 Metoprolol Tartrate 50 Mg Tab PO Q12HR MERLYN Oxycodone HCl 5 mg 07/14/25 12:42 Oxycodone Hcl (*Crx) 5 Mg Tab Ir PO Q8H PRN PAIN RATED 7-10 Polyethylene Glycol 17 gm 07/15/25 09:00 Polyethylene Glycol 3350 17 Gm Powd.Pack PO QAM [facility] Pregabalin 75 mg 07/15/25 09:00 Pregabalin (*Crx) 75 Mg Capsule PO DAILY [facility] Quetiapine Fumarate 25 mg 07/15/25 09:00 Quetiapine Fumarate 25 Mg Tablet PO DAILY [facility] Senna 8.6 mg 07/14/25 12:49 Sennosides 8.6 Mg Tablet PO DAILY PRN Constipation Sodium Bicarbonate 325 mg 07/14/25 17:00 Sodium Bicarbonate Tab 325 Mg Tablet PO BID [facility] Sodium Chloride 10 ml 07/04/25 14:00 07/14/25 04:55 Central Line Flush IV PUSH 10 ml Q8HR [facility] Administration Sodium Hypochlorite 1 applic 07/06/25 09:00 07/13/25 09:45 Sod Hypochlorite 1/4 Strength 473 Ml TOPICAL 1 applic DAILY [facility] Administration Thiamine HCl 300 mg 07/15/25 09:00 Thiamine Hcl 100 Mg Tablet PO QAM [facility] Trazodone HCl 50 mg 07/14/25 21:00 Trazodone Hcl 50 Mg Tablet PO HS [facility] Radiology Results: ITS Impressions Abdomen/Pelvis CT 07/03/25 18:41 IMPRESSION: 1. No acute abnormality. 2. Additional findings as above. 3. Chronic right basilar atelectasis and/or airspace disease. Chest X-Ray 07/03/25 20:35 IMPRESSION: 1. Chronic right basilar atelectasis and/or airspace disease. 2. Similar but less severe findings left lung. Renal Ultrasound 07/04/25 14:59 Impression: Mild left hydronephrosis Labs Labs: Laboratory Results - last 24 hr 07/13/25 07/13/25 07/13/25 16:03 17:12 18:29 WBC RBC Hgb Hct MCV MCH MCHC RDW Plt Count MPV Immature Gran % (Auto) Neut % (Auto) Lymph % (Auto) [place] % (Auto) Eos % (Auto) Baso % (Auto) Lymph # (Auto) [place] # (Auto) Eos # (Auto) Baso # (Auto) Abs Immat Gran (auto) Absolute Neuts (auto) Absolute Nucleated RBC Nucleated RBC % % Immature Plt Fraction Sodium Potassium Chloride Carbon Dioxide Anion Gap BUN Creatinine Estim Creat Clear Calc Estimated GFR Glucose POC Capillary Glucose 78 101 Calcium Total Bilirubin AST ALT Alkaline Phosphatase Total Protein Albumin Vancomycin Trough 16.3 07/13/25 07/14/25 07/14/25 23:55 05:56 06:21 WBC 8.1 RBC 2.61 L Hgb 7.3 L Hct 23.8 L MCV 91.2 MCH 28.0 MCHC 30.7 L RDW 16.4 H Plt Count 193 MPV 11.3 H Immature Gran % (Auto) 0.4 Neut % (Auto) 76.8 H Lymph % (Auto) 13.4 L [place] % (Auto) 4.8 Eos % (Auto) 4.2 Baso % (Auto) 0.4 Lymph # (Auto) 1.08 [place] # (Auto) 0.4 Eos # (Auto) 0.3 Baso # (Auto) 0.0 Abs Immat Gran (auto) 0.03 Absolute Neuts (auto) 6.2 Absolute Nucleated RBC 0.000 Nucleated RBC % 0.0 % Immature Plt Fraction 4.1 Sodium 137 Potassium 3.9 Chloride 105 Carbon Dioxide 27 Anion Gap 5 BUN 58 H Creatinine 1.26 H Estim Creat Clear Calc 33 Estimated GFR 43 L Glucose 97 POC Capillary Glucose 106 H 96 Calcium 8.6 Total Bilirubin 0.5 AST 38 H ALT 20 Alkaline Phosphatase 203 H Total Protein 7.8 Albumin 3.0 L Vancomycin Trough 07/14/25 07/14/25 08:38 11:29 WBC RBC Hgb Hct MCV MCH MCHC RDW Plt Count MPV Immature Gran % (Auto) Neut % (Auto) Lymph % (Auto) [place] % (Auto) Eos % (Auto) Baso % (Auto) Lymph # (Auto) [place] # (Auto) Eos # (Auto) Baso # (Auto) Abs Immat Gran (auto) Absolute Neuts (auto) Absolute Nucleated RBC Nucleated RBC % % Immature Plt Fraction Sodium Potassium Chloride Carbon Dioxide Anion Gap BUN Creatinine Estim Creat Clear Calc Estimated GFR Glucose POC Capillary Glucose 84 113 H Calcium Total Bilirubin AST ALT Alkaline Phosphatase Total Protein Albumin Vancomycin Trough
[2025-07-14] MEDS: SOD HYPOCHLORITE 1/4 STRENGTH 473 ML 1 APPLIC TOPICAL (17:50)
[2025-07-14] MEDS: SODIUM BICARBONATE TAB 325 MG TABLET PO (17:51)
[2025-07-14] MEDS: FAMOTIDINE 20 MG TABLET PO (21:22)
[2025-07-14] MEDS: METOPROLOL TARTRATE 50 MG TAB PO (21:22)
[2025-07-15] VITALS (11 sets, daily range): BP systolic 129–148; BP diastolic 90–92; PULSE 89–109; RESP 16–20; TEMP 35.8–36.1; O2SAT 98–100
[2025-07-15 03:07] LABS: Osmolality, Serum 296 mOsmol/kg (275-295)
[2025-07-15] MEDS: VANCOMYCIN 750 MG/NS 250 ML 750 MG/250 ML BAG 250 MG IVPB (04:13)
[2025-07-15] MEDS: CEFEPIME 2 GM in SODIUM CHLORIDE 0.9% IV 50 ML 100 ML IVPB ×2 (06:06→17:00)
[2025-07-15] MEDS: CENTRAL LINE FLUSH 10 ML IV PUSH ×3 (06:06→22:44)
[2025-07-15 06:39] LABS: Hematocrit 26.9 % (37.0-47.0); Hemoglobin 8.0 g/dL (12.0-15.0); Immature Granulocyte Percent A 0.4 % (0-0.5); Lymphocytes Absolute Auto 1.18 K/mm3 (0.9-3.2); Mean Corpuscular HGB Conc 29.7 g/dl (32-36); Mean Corpuscular Hemoglobin 27.1 pg (26-34); Mean Corpuscular Volume 91.2 fl (80-100); Nucleated Red Blood Cells Absolute Auto 0.000 K/mm3 (0.0-0.012); Nucleated Red Blood Cells Perc 0.0 % (0.0-0.2); Platelet Count Result 266 k/mm3 (150-375); Red Blood Count 2.95 M/mm3 (4.2-5.4); White Blood Count 8.1 K/mm3 (4.5-10.0)
[2025-07-15 07:00] LABS: Alanine Aminotransferase 18 U/L (6-35); Albumin Level 3.1 g/dL (3.5-5.1); Alkaline Phosphatase 203 U/L (38-126); Anion Gap 5 mmol/L (4-12); Aspartate Amino Transferase 28 U/L (14-36); Bilirubin,Total 0.4 mg/dL (0.2-1.3); Blood Urea Nitrogen 54 mg/dL (7-17); Calcium 8.7 mg/dL (8.4-10.2); Carbon Dioxide 25 mmol/L (22-30); Chloride 107 mmol/L (98-107); Estimated CRCL calculation 32 ml/min; Estimated Glomerular Filt Rate 41; Glucose 112 mg/dL (65-110); Potassium 3.3 mmol/L (3.4-5.0); Sodium 137 mmol/L (137-145); Total Protein 8.0 g/dL (6.3-8.2)
--- NOTE | 2025-07-15 07:33 | P.PNIM_ITS ---
Progress Note: A&P Assessment and Plan (1) Pressure ulcers of skin of multiple topographic sites: Code(s): L89.90 - Pressure ulcer of unspecified site, unspecified stage Status: Chronic Assessment and Plan: * patient has multiple nonhealing wounds. Surgery followed on recent admit 05/2025. Patient underwent debridement of ischial wound during last hospitalization. * R ankle wound is tunneling to bone. * During last hospitalization, suprapubic catheter placement/diverting ostomy was discussed to aide in healing. Was delayed due to patient's coagulation profiles. Pradaxa has been on hold since that time and PT/INR and PTT have improved. Continue to hold Pradaxa. Consult urology for suprapubic catheter placement. * Concern for wound infection although general surgery feels all wounds appear clean. Leukocytosis initially improving with Rocephin so will continue for now pending surgery recs. WBC 12 today, mildly uptrending. Consider broadening antibiotics if continues to up trend. * General surgery consulted, appreciate recs. Considering R AKA. Patient is a ramos of the [facility] and all consents will need to obtained from her guardian * Pending further recommendations from general surgery regarding possible R AKA * Will need above the knee amputation if approved by legal guardian * The patient's guardian has stated that he would like a 2nd opinion regarding limb amputation/colostomy * Patient has been accepted at [facility] - pending bed (2) Anemia: Code(s): D64.9 - Anemia, unspecified Status: Acute Assessment and Plan: * acute on chronic normocytic anemia * baseline Hgb around 8. Hgb 7.3 on admission and downtrended to 6.8 07/04 * last admit anemia was due to bleeding from wounds. No current signs of bleeding. * s/p 1 u PRBCs with improvement. Hgb now stable. * trend CBC. Transfuse Hgb <7 * iron studies consistent with iron deficiency. %ST<10, will give IV iron 300 mg daily x3 (3) Urinary tract infection: Code(s): N39.0 - Urinary tract infection, site not specified Status: Acute Assessment and Plan: * UA with 2+ LE, WBC 51-100 * urine culture 05/28/25 with Klebsiella pneumoniae and Providencia stuartii both sensitive to cephalosporins * admit WBC 18, afebrile, no leukocytosis * leukocytosis improving * initially started on Merrem. Transitioned to Rocephin. * Urine culture with no growth, but leukocytosis improving on Rocephin so will continue for now. * Urology consulted regarding possible suprapubic catheter placement as she is incontinent of urine/stool (4) RADHA (acute kidney injury): Code(s): N17.9 - Acute kidney failure, unspecified Status: Acute Assessment and Plan: * admit Cr 2.05. Baseline 1.2. S/p IV fluids * Cr improved to 1.30 * renal US with mild L hydronephrosis * voiding appropriately. Bladder scan without retention. * avoid nephrotoxins (5) Essential (primary) hypertension: Code(s): I10 - Essential (primary) hypertension Status: Acute Assessment and Plan: * continue home metoprolol with hold parameters (6) Generalized anxiety disorder: Code(s): F41.1 - Generalized anxiety disorder Status: Acute Assessment and Plan: * continue home citalopram, trazodone (7) Schizoaffective disorder: Code(s): F25.9 - Schizoaffective disorder, unspecified Status: Acute Assessment and Plan: * continue home trazodone (8) Multiple sclerosis: Code(s): G35 - Multiple sclerosis Status: Acute Assessment and Plan: * patient is contracted. * continue Lyrica and oxycodone (9) Gastrointestinal tube in situ: Code(s): Z93.1 - Gastrostomy status Status: Acute Assessment and Plan: * G tube was clogged on admission. GI replaced G tube 10/5 L (10) History of pulmonary embolism: Code(s): Z86.711 - Personal history of pulmonary embolism Status: Acute Assessment and Plan: * Pradaxa has been on hold since last admission, will continue to hold in case need for surgical intervention Plan DVT prophylaxis: SCDs Code status: full code Dispo: back to [facility] once medically stable Subjective Date/time seen: 07/15/25 07:33 Interval history: Patient sitting comfortably in bed at time of exam. Guardian has expressed interest in the patient being transferred to a tertiary facility for a second opinion regarding the R AKA/colostomy/suprapubic catheter. [facility] was the first choice as the patient has been seen at that hospital previously. [facility] transfer center was called and the patient HAS been accepted by Dr. Acosta with the hospitalist team at [facility]. Pending bed acceptance. Pt otherwise stable. Review of Systems Review of Systems: The patient is a very poor historian. She tells me that she still lives with her brother and sister however she is currently at the [facility]. All systems reviewed & are unremarkable except as noted in HPI and below ROS unobtainable: Yes unobtainable due to mental status ENT: Reports Normal hearing present Neurologic: Reports Normal hearing present Exam Narrative: APPEARANCE: Anxious EYES: EOMI HEENT: Normocephalic, atraumatic, OMM RESPIRATORY: No respiratory distress Clear to auscultation bilaterally with no rhonchi wheezing or rales. CARDIOVASCULAR: Right chest port noted, RRR, S1 and S2 without murmurs rubs or gallops. ABDOMINAL: Feeding tube site , Soft, nontender, nondistended, no rebound or guarding MSK: Quadriplegia NEURO: Quadriplegic, cerebral palsy SKIN:: Warm, dry. No rashes lesions or abrasions PSYCHIATRIC: Sad mood Const: General: cooperative, comfortable, no acute distress, well developed, awake, Physically active, ill appearing, average body habitus and well nourished Nutritional Appearance: average body habitus and well nourished Orientation/consciousness: oriented to person Other: Contracted arms and legs. HENMT: Head: normal to inspection, No palpable skull fracture present, normocephalic, atraumatic and abrasion Ears: hearing grossly normal bilaterally and external ears normal Eyes: General: appearance normal, both eyes and all related structures Alignment and Position: alignment normal Periorbital: periorbital findings normal Eyelids: eyelids normal Conjunctivae: conjunctivae normal Sclera: sclerae normal Cornea: corneas normal Pupils: Equal, round and reactive pupils present and Pupil accommodation reflex normal EOM: EOMs intact bilaterally Neck: Neck: normal visual inspection, full ROM, no lymphadenopathy and trachea midline Chest: Chest palpation & inspection: normal inspection of the chest Resp: Effort & Inspection: normal respiratory effort Auscultation: clear to auscultation bilaterally Percussion: percussion normal Cardio: Palpation: normal PMI Rate: regular rate Rhythm: regular rhythm Heart sounds: S1 normal heart sound present and S2 normal heart sound present Peripheral pulses: Peripheral pulses 2+ throughout GI: Inspection: normal to inspection Auscultation: normal bowel sounds Rectal Exam: deferred : General: Yes no CVA tenderness Back/Spine/Pelvis: Back: no CVA tenderness Cervical Spine: cervical ROM normal Skin: General skin exam: normal color Lesions: no lesions Rashes: no rashes Trauma: no lacerations or abrasions Wounds: no wounds Hair: normal Nails: normal Other: She has a dressing to her left foot and per records she has a sacral ulcer but I was not able to roll her over and looked at this time. Neuro: General: oriented to person Cranial nerves: Yes Equal, round and reactive pupils present and Yes Normal hearing present Extrem: General: normal to inspection Right upper extremity: normal to inspection and shoulder/upper arm Left upper extremity: normal to inspection and shoulder/upper arm Right lower extremity: normal to inspection Left lower extremity: normal to inspection Psych: Appearance: grossly normal Mental Status: mental status grossly normal Speech and movement: Normal speech and movement present Affect: normal affect Attitude: cooperative Thought process: Normal thought process present Insight: Poor insight present (Psych) Judgement: Poor judgement present (Psych) Objective Data Vital Signs Vital Signs: Vital Signs - 24 hr 07/14/25 08:00 07/14/25 08:00 07/14/25 12:00 Temperature Pulse Rate 94 108 H Respiratory Rate Blood Pressure Pulse Oximetry Oxygen Delivery Room Air 07/14/25 13:34 07/14/25 16:00 07/14/25 20:00 Temperature 96.6 F L Pulse Rate 110 H 104 H 104 H Respiratory Rate 16 Blood Pressure 140/82 Pulse Oximetry 98 Oxygen Delivery 07/14/25 21:22 07/14/25 21:23 07/15/25 00:00 Temperature 97.1 F L Pulse Rate 76 103 H 89 Respiratory Rate 18 Blood Pressure 140/73 Pulse Oximetry 99 Oxygen Delivery 07/15/25 04:00 07/15/25 05:51 Temperature 96.9 F L Pulse Rate 97 99 Respiratory Rate 16 Blood Pressure 143/92 H Pulse Oximetry 99 Oxygen Delivery Intake/Output Intake/Output: Intake & Output 07/12/25 07/13/25 07/14/25 07/15/25 23:59 23:59 23:59 23:59 Intake Total 1002 980 125 Output Total 630 100 Balance 1002 350 125 -100 Meds/Results Medications: Active Medications Generic Name Dose Route Start Last Admin Trade Name Freq PRN Reason Stop Dose Admin Acetaminophen 650 mg 07/14/25 12:39 Acetaminophen 325 Mg Tablet BY MOUTH Q6H PRN Mild Pain (1-3) or Fever Albuterol 2.5 mg 07/04/25 01:48 Albuterol Sulfate Neb 2.5 Mg/3 Ml Inh INHALATION Q4HRT PRN Shortness Of Breath Artificial Tears 1 drop 07/04/25 09:00 07/14/25 17:51 Artificial Tears Ophth Soln 15 Ml Bottle EACH EYE Not Given TID MERLYN Bisacodyl 5 mg 07/04/25 09:00 07/14/25 09:00 Bisacodyl 5 Mg Tablet Ec PO Not Given DAILY MERLYN Dextrose 12.5 gm 07/14/25 09:38 Dextrose 50% 25 Gm/50 Ml Syringe IV PUSH PRN PRN Hypoglycemia Protocol Famotidine 20 mg 07/14/25 21:00 07/14/25 21:22 Famotidine 20 Mg Tablet PO 20 mg Q12HR MERLYN Administration Ferrous Sulfate 325 mg 07/15/25 09:00 Ferrous Sulfate 325 Mg Tablet BY MOUTH DAILY MERLYN Glucagon 1 mg 07/14/25 09:38 Glucagon For Inj 1 Mg Vial IM PRN PRN Hypoglycemia Protocol Glucose 15 gm 07/14/25 09:38 Glucose Oral Gel 15 Gm Of Glucse In 37.5 Gm Tube PO PRN PRN Hypoglycemia Protocol Heparin Sodium (Beef Lung) 50 units 07/04/25 09:00 07/14/25 08:57 Heparin Flush 50 Units/5 Ml Syringe IV PUSH 50 units QAM MERLYN Administration Heparin Sodium (Beef Lung) 50 units 07/04/25 08:38 07/12/25 07:56 Heparin Flush 50 Units/5 Ml Syringe IV PUSH 50 units PRN PRN Administration after intermittent infusion Heparin Sodium (Beef Lung) 50 units 07/04/25 08:38 Heparin Flush 50 Units/5 Ml Syringe IV PUSH PRN PRN after blood draws Heparin Sodium (Porcine) 5,000 units 07/04/25 09:00 07/04/25 12:17 Heparin Sodium 5,000 Units/Ml Vial SUB-Q Not Given On Hold: 07/04/25 10:50 Q12HR MERLYN Heparin Sodium (Porcine) 500 units 07/04/25 08:38 Heparin Sodium Lock Flush 500 Units/5 Ml Syringe IV PUSH PRN PRN see comments below Hydromorphone HCl 1 mg 07/13/25 02:34 07/13/25 03:53 Hydromorphone Hcl Inj (*Crx) 1 Mg/Ml Syr IV PUSH 1 mg Q4HR PRN Administration Pain Rated 7-10 Vancomycin HCl 750 mg in 250 mls @ 250 mls/hr 07/12/25 04:00 07/15/25 04:13 Vancomycin 750 Mg/Ns 250 Ml IVPB 250 mls/hr Q36H MERLYN Administration Cefepime HCl 2 gm/ Sodium 50 mls @ 100 mls/hr 07/10/25 18:00 07/15/25 06:06 Chloride IVPB 100 mls/hr Q12H MERLYN Administration Dextrose 1,000 mls @ 100 mls/hr 07/14/25 09:38 Dextrose 5% 1,000 Ml IVPB PRN PRN Hypoglycemia Protocol Metoprolol Tartrate 50 mg 07/14/25 21:00 07/14/25 21:22 Metoprolol Tartrate 50 Mg Tab PO 50 mg Q12HR MERLYN Administration Oxycodone HCl 5 mg 07/14/25 12:42 Oxycodone Hcl (*Crx) 5 Mg Tab Ir PO Q8H PRN PAIN RATED 7-10 Polyethylene Glycol 17 gm 07/15/25 09:00 Polyethylene Glycol 3350 17 Gm Powd.Pack PO QAM [facility] Pregabalin 75 mg 07/15/25 09:00 Pregabalin (*Crx) 75 Mg Capsule PO DAILY [facility] Quetiapine Fumarate 25 mg 07/15/25 09:00 Quetiapine Fumarate 25 Mg Tablet PO DAILY [facility] Senna 8.6 mg 07/14/25 12:49 Sennosides 8.6 Mg Tablet PO DAILY PRN Constipation Sodium Bicarbonate 325 mg 07/14/25 17:00 07/14/25 17:51 Sodium Bicarbonate Tab 325 Mg Tablet PO 325 mg BID MERLYN Administration Sodium Chloride 10 ml 07/04/25 14:00 07/15/25 06:06 Central Line Flush IV PUSH 10 ml Q8HR MERLYN Administration Sodium Hypochlorite 1 applic 07/06/25 09:00 07/14/25 17:50 Sod Hypochlorite 1/4 Strength 473 Ml TOPICAL 1 applic DAILY MERLYN Administration Thiamine HCl 300 mg 07/15/25 09:00 Thiamine Hcl 100 Mg Tablet PO QAM MERLYN Trazodone HCl 50 mg 07/14/25 21:00 07/14/25 21:22 Trazodone Hcl 50 Mg Tablet PO 50 mg HS MERLYN Administration Radiology Results: ITS Impressions Abdomen/Pelvis CT 07/03/25 18:41 IMPRESSION: 1. No acute abnormality. 2. Additional findings as above. 3. Chronic right basilar atelectasis and/or airspace disease. Chest X-Ray 07/03/25 20:35 IMPRESSION: 1. Chronic right basilar atelectasis and/or airspace disease. 2. Similar but less severe findings left lung. Renal Ultrasound 07/04/25 14:59 Impression: Mild left hydronephrosis Labs Labs: Laboratory Results - last 24 hr 07/11/25 07/14/25 07/14/25 05:54 06:21 08:38 WBC RBC Hgb Hct MCV MCH MCHC RDW Plt Count MPV Immature Gran % (Auto) Neut % (Auto) Lymph % (Auto) [place] % (Auto) Eos % (Auto) Baso % (Auto) Lymph # (Auto) [place] # (Auto) Eos # (Auto) Baso # (Auto) Abs Immat Gran (auto) Absolute Neuts (auto) Absolute Nucleated RBC Nucleated RBC % Sodium Potassium Chloride Carbon Dioxide Anion Gap BUN Creatinine Estim Creat Clear Calc Estimated GFR Glucose POC Capillary Glucose 96 84 Serum Osmolality 296 H Calcium Total Bilirubin AST ALT Alkaline Phosphatase Total Protein Albumin 07/14/25 07/14/25 07/15/25 11:29 16:42 00:57 WBC RBC Hgb Hct MCV MCH MCHC RDW Plt Count MPV Immature Gran % (Auto) Neut % (Auto) Lymph % (Auto) [place] % (Auto) Eos % (Auto) Baso % (Auto) Lymph # (Auto) [place] # (Auto) Eos # (Auto) Baso # (Auto) Abs Immat Gran (auto) Absolute Neuts (auto) Absolute Nucleated RBC Nucleated RBC % Sodium Potassium Chloride Carbon Dioxide Anion Gap BUN Creatinine Estim Creat Clear Calc Estimated GFR Glucose POC Capillary Glucose 113 H 115 H 112 H Serum Osmolality Calcium Total Bilirubin AST ALT Alkaline Phosphatase Total Protein Albumin 07/15/25 07/15/25 05:22 06:25 WBC 8.1 RBC 2.95 L Hgb 8.0 L Hct 26.9 L MCV 91.2 MCH 27.1 MCHC 29.7 L RDW 16.0 H Plt Count 266 MPV 10.7 H Immature Gran % (Auto) 0.4 Neut % (Auto) 73.9 H Lymph % (Auto) 14.6 L [place] % (Auto) 7.3 Eos % (Auto) 3.6 Baso % (Auto) 0.2 Lymph # (Auto) 1.18 [place] # (Auto) 0.6 Eos # (Auto) 0.3 Baso # (Auto) 0.0 Abs Immat Gran (auto) 0.03 Absolute Neuts (auto) 6.0 Absolute Nucleated RBC 0.000 Nucleated RBC % 0.0 Sodium 137 Potassium 3.3 L Chloride 107 Carbon Dioxide 25 Anion Gap 5 BUN 54 H Creatinine 1.33 H Estim Creat Clear Calc 32 Estimated GFR 41 L Glucose 112 H POC Capillary Glucose 109 H Serum Osmolality Calcium 8.7 Total Bilirubin 0.4 AST 28 ALT 18 Alkaline Phosphatase 203 H Total Protein 8.0 Albumin 3.1 L Quality VTE Prophylaxis VTE prophylaxis: mechanical ordered
[2025-07-15] MEDS: ARTIFICIAL TEARS OPHTH SOLN 15 ML BOTTLE 1 DROP EACH EYE ×3 (09:00→16:59)
[2025-07-15] MEDS: THIAMINE HCL 100 MG TABLET 300 MG PO (09:00)
[2025-07-15] MEDS: PREGABALIN (*CRX) 75 MG CAPSULE PO (09:01)
[2025-07-15] MEDS: SODIUM BICARBONATE TAB 325 MG TABLET PO ×2 (09:01→17:00)
[2025-07-15] MEDS: METOPROLOL TARTRATE 50 MG TAB PO (09:01)
[2025-07-15] MEDS: FAMOTIDINE 20 MG TABLET PO (09:02)
[2025-07-15] MEDS: FERROUS SULFATE 325 MG TABLET BY MOUTH (09:02)
[2025-07-15] MEDS: SOD HYPOCHLORITE 1/4 STRENGTH 473 ML 1 APPLIC TOPICAL (09:03)
--- NOTE | 2025-07-15 11:36 | PM.PNGS ---
Progress Note: A&P Assessment and Plan (1) Pressure ulcers of skin of multiple topographic sites: Code(s): L89.90 - Pressure ulcer of unspecified site, unspecified stage Status: Chronic Assessment and Plan: The patient presented to [facility] Via EMS from [facility] on 07/03/2025 with concern for lower abdominal pain and vomiting. While in the emergency department, patient was noted to have multiple chronic pressure wounds. The general surgery team was consulted to evaluate these wounds.? She is well-known to the service, as she has had multiple? surgical debridements and hospitalizations for these wounds.? Upon examination of this patient, the right posterior scapula, sacral, right ischial, left ischial, right posterior thigh, and right heel all appear stable since last seen during patient?s most recent admission from 05/28/25 to 06/05/2025. However, the wound to her right dorsal foot appears to have increased in severity, now with necrotic tissue, tendon, and bone exposed. What appears to be synovial fluid from the ankle joint is leaking from the wound. While we could attempt to debride this wound, this would not be advisable as it is unlikely to ever heal and would necessitate frequent, difficult dressing changes. Another option that we pondered was a bsuvj-[id number] amputation. However, due to the patient?s severe contractions of her lower extremities, this would also require concurrent tendon severance by orthopedic team. A [id number] amputation would leave the patient with a lower leg stump that would still be exposed to pressure from patient?s mattress and her left leg. This would ultimately lead to a pressure wound to the stump. With all of this taken into consideration, we believe it is in the patient?s best interest to undergo a right above the knee amputation. Being that the patient is bedbound and does not have any mobility of her legs, this would not affect her physical function. This would provide the least likelihood of any recurring pressure wounds to the limb. Afebrile. Clinically appears stable. WBC remains normal. Bun/Cr remains elevated. In our professional opinion, a right above the knee amputation would most benefit the patient. However, patient's legal guardian, Abe Burnham, is requesting a second opinion from a tertiary care center. Patient is medically stable for discharge back to [facility]. We will send outpatient referral to [facility] plastic surgery wound care center. Prior to discharge we will debride patient's ankle and heel wound at the bedside. Verbal consent obtained from Abe Burnham. Continue daily dressing changes with Dakin's soaked gauze. Continue IV antibiotics while inpatient. Consider switch to oral antibiotics upon discharge. Additionally, the patient is incontinent of both stool and urine. Multiple attempts at urinary catheter placement have been made without any success. The patient?s anatomy and contractures make this very difficult. Also due to these deformities, a Purewick catheter is unable to effectively collect urine. This essentially leaves the patient?s wounds subject to contamination with urine and feces. With this being said, we would recommend a possible placement of a suprapubic catheter and a diverting colostomy in the future. This can be scheduled as an outpatient surgery if patient's legal guardian would like to move forward with it. Plan I have discussed the patient's case and plan of care with Dr. Covarrubias. Subjective Subjective Date/Time Seen: 07/15/25 11:36 Patient reports: no new complaints, bowel movement and afebrile Interval history: No new complaints. Patient medically stable. Per nursing staff, patient had multiple bowel movements overnight that required dressing changes due to contamination to wounds. Exam GI: Other: Wounds assessed and dressings changed by nurses at bedside today. Reportedly, many bowel mvoements overnight that saturated dressing and required multiple changes. Objective Data Vital Signs Vital Signs: Vital Signs - 24 hr 07/14/25 12:00 07/14/25 13:34 07/14/25 16:00 Temperature 96.6 F L Pulse Rate 108 H 110 H 104 H Respiratory Rate 16 Blood Pressure 140/82 Pulse Oximetry 98 07/14/25 20:00 07/14/25 21:22 07/14/25 21:23 Temperature 97.1 F L Pulse Rate 104 H 76 103 H Respiratory Rate 18 Blood Pressure 140/73 Pulse Oximetry 99 07/15/25 00:00 07/15/25 04:00 07/15/25 05:51 Temperature 96.9 F L Pulse Rate 89 97 99 Respiratory Rate 16 Blood Pressure 143/92 H Pulse Oximetry 99 07/15/25 08:00 07/15/25 09:01 Temperature Pulse Rate 101 H 105 H Respiratory Rate Blood Pressure Pulse Oximetry Intake/Output Intake/Output: Intake & Output 07/12/25 07/13/25 07/14/25/15/25 23:59 23:59 23:59 23:59 Intake Total 1002 980 125 Output Total 630 100 Balance 1002 350 125 -100 Meds/Results Medications: Active Medications Generic Name Dose Route Start Last Admin Trade Name Freq PRN Reason Stop Dose Admin Acetaminophen 650 mg 07/14/25 12:39 Acetaminophen 325 Mg Tablet BY MOUTH Q6H PRN Mild Pain (1-3) or Fever Albuterol 2.5 mg 07/04/25 01:48 Albuterol Sulfate Neb 2.5 Mg/3 Ml Inh INHALATION Q4HRT PRN Shortness Of Breath Artificial Tears 1 drop 07/04/25 09:00 07/15/25 09:00 Artificial Tears Ophth Soln 15 Ml Bottle EACH EYE 1 drop TID MERLYN Administration Bisacodyl 5 mg 07/04/25 09:00 07/15/25 09:03 Bisacodyl 5 Mg Tablet Ec PO Not Given DAILY MERLYN Dextrose 12.5 gm 07/14/25 09:38 Dextrose 50% 25 Gm/50 Ml Syringe IV PUSH PRN PRN Hypoglycemia Protocol Famotidine 20 mg 07/14/25 21:00 07/15/25 09:02 Famotidine 20 Mg Tablet PO 20 mg Q12HR MERLYN Administration Ferrous Sulfate 325 mg 07/15/25 09:00 07/15/25 09:02 Ferrous Sulfate 325 Mg Tablet BY MOUTH 325 mg DAILY MERLYN Administration Glucagon 1 mg 07/14/25 09:38 Glucagon For Inj 1 Mg Vial IM PRN PRN Hypoglycemia Protocol Glucose 15 gm 07/14/25 09:38 Glucose Oral Gel 15 Gm Of Glucse In 37.5 Gm Tube PO PRN PRN Hypoglycemia Protocol Heparin Sodium (Beef Lung) 50 units 07/04/25 09:00 07/15/25 09:01 Heparin Flush 50 Units/5 Ml Syringe IV PUSH 50 units QAM MERLYN Administration Heparin Sodium (Beef Lung) 50 units 07/04/25 08:38 07/12/25 07:56 Heparin Flush 50 Units/5 Ml Syringe IV PUSH 50 units PRN PRN Administration after intermittent infusion Heparin Sodium (Beef Lung) 50 units 07/04/25 08:38 Heparin Flush 50 Units/5 Ml Syringe IV PUSH PRN PRN after blood draws Heparin Sodium (Porcine) 5,000 units 07/04/25 09:00 07/04/25 12:17 Heparin Sodium 5,000 Units/Ml Vial SUB-Q Not Given On Hold: 07/04/25 10:50 Q12HR MERLYN Heparin Sodium (Porcine) 500 units 07/04/25 08:38 Heparin Sodium Lock Flush 500 Units/5 Ml Syringe IV PUSH PRN PRN see comments below Hydromorphone HCl 1 mg 07/13/25 02:34 07/13/25 03:53 Hydromorphone Hcl Inj (*Crx) 1 Mg/Ml Syr IV PUSH 1 mg Q4HR PRN Administration Pain Rated 7-10 Vancomycin HCl 750 mg in 250 mls @ 250 mls/hr 07/12/25 04:00 07/15/25 04:13 Vancomycin 750 Mg/Ns 250 Ml IVPB 250 mls/hr Q36H MERLYN Administration Cefepime HCl 2 gm/ Sodium 50 mls @ 100 mls/hr 07/10/25 18:00 07/15/25 06:06 Chloride IVPB 100 mls/hr Q12H MERLYN Administration Dextrose 1,000 mls @ 100 mls/hr 07/14/25 09:38 Dextrose 5% 1,000 Ml IVPB PRN PRN Hypoglycemia Protocol Metoprolol Tartrate 50 mg 07/14/25 21:00 07/15/25 09:01 Metoprolol Tartrate 50 Mg Tab PO 50 mg Q12HR MERLYN Administration Oxycodone HCl 5 mg 07/14/25 12:42 Oxycodone Hcl (*Crx) 5 Mg Tab Ir PO Q8H PRN PAIN RATED 7-10 Polyethylene Glycol 17 gm 07/15/25 09:00 07/15/25 09:02 Polyethylene Glycol 3350 17 Gm Powd.Pack PO Not Given QAM [facility] Pregabalin 75 mg 07/15/25 09:00 07/15/25 09:01 Pregabalin (*Crx) 75 Mg Capsule PO 75 mg DAILY MERLYN Administration Quetiapine Fumarate 25 mg 07/15/25 09:00 07/15/25 09:01 Quetiapine Fumarate 25 Mg Tablet PO 25 mg DAILY MERLYN Administration Senna 8.6 mg 07/14/25 12:49 Sennosides 8.6 Mg Tablet PO DAILY PRN Constipation Sodium Bicarbonate 325 mg 07/14/25 17:00 07/15/25 09:01 Sodium Bicarbonate Tab 325 Mg Tablet PO 325 mg BID MERLYN Administration Sodium Chloride 10 ml 07/04/25 14:00 07/15/25 06:06 Central Line Flush IV PUSH 10 ml Q8HR MERLYN Administration Sodium Hypochlorite 1 applic 07/06/25 09:00 07/15/25 09:03 Sod Hypochlorite 1/4 Strength 473 Ml TOPICAL 1 applic DAILY MERLYN Administration Thiamine HCl 300 mg 07/15/25 09:00 07/15/25 09:00 Thiamine Hcl 100 Mg Tablet PO 300 mg QAM MERLYN Administration Trazodone HCl 50 mg 07/14/25 21:00 07/14/25 21:22 Trazodone Hcl 50 Mg Tablet PO 50 mg HS MERLYN Administration Radiology Results: ITS Impressions Abdomen/Pelvis CT 07/03/25 18:41 IMPRESSION: 1. No acute abnormality. 2. Additional findings as above. 3. Chronic right basilar atelectasis and/or airspace disease. Chest X-Ray 07/03/25 20:35 IMPRESSION: 1. Chronic right basilar atelectasis and/or airspace disease. 2. Similar but less severe findings left lung. Renal Ultrasound 07/04/25 14:59 Impression: Mild left hydronephrosis Labs Labs: Laboratory Results - last 24 hr 07/11/25 07/14/25 07/14/25 05:54 11:29 16:42 WBC RBC Hgb Hct MCV MCH MCHC RDW Plt Count MPV Immature Gran % (Auto) Neut % (Auto) Lymph % (Auto) [place] % (Auto) Eos % (Auto) Baso % (Auto) Lymph # (Auto) [place] # (Auto) Eos # (Auto) Baso # (Auto) Abs Immat Gran (auto) Absolute Neuts (auto) Absolute Nucleated RBC Nucleated RBC % Sodium Potassium Chloride Carbon Dioxide Anion Gap BUN Creatinine Estim Creat Clear Calc Estimated GFR Glucose POC Capillary Glucose 113 H 115 H Serum Osmolality 296 H Calcium Total Bilirubin AST ALT Alkaline Phosphatase Total Protein Albumin 07/15/25 07/15/25 07/15/25 00:57 05:22 06:25 WBC 8.1 RBC 2.95 L Hgb 8.0 L Hct 26.9 L MCV 91.2 MCH 27.1 MCHC 29.7 L RDW 16.0 H Plt Count 266 MPV 10.7 H Immature Gran % (Auto) 0.4 Neut % (Auto) 73.9 H Lymph % (Auto) 14.6 L [place] % (Auto) 7.3 Eos % (Auto) 3.6 Baso % (Auto) 0.2 Lymph # (Auto) 1.18 [place] # (Auto) 0.6 Eos # (Auto) 0.3 Baso # (Auto) 0.0 Abs Immat Gran (auto) 0.03 Absolute Neuts (auto) 6.0 Absolute Nucleated RBC 0.000 Nucleated RBC % 0.0 Sodium 137 Potassium 3.3 L Chloride 107 Carbon Dioxide 25 Anion Gap 5 BUN 54 H Creatinine 1.33 H Estim Creat Clear Calc 32 Estimated GFR 41 L Glucose 112 H POC Capillary Glucose 112 H 109 H Serum Osmolality Calcium 8.7 Total Bilirubin 0.4 AST 28 ALT 18 Alkaline Phosphatase 203 H Total Protein 8.0 Albumin 3.1 L 07/15/25 11:15 WBC RBC Hgb Hct MCV MCH MCHC RDW Plt Count MPV Immature Gran % (Auto) Neut % (Auto) Lymph % (Auto) [place] % (Auto) Eos % (Auto) Baso % (Auto) Lymph # (Auto) [place] # (Auto) Eos # (Auto) Baso # (Auto) Abs Immat Gran (auto) Absolute Neuts (auto) Absolute Nucleated RBC Nucleated RBC % Sodium Potassium Chloride Carbon Dioxide Anion Gap BUN Creatinine Estim Creat Clear Calc Estimated GFR Glucose POC Capillary Glucose 120 H Serum Osmolality Calcium Total Bilirubin AST ALT Alkaline Phosphatase Total Protein Albumin
--- NOTE | 2025-07-15 15:16 | P.OP_ITS ---
Procedure Note - Detailed Date of Procedure 07/15/25 Pre-op Diagnosis urosepsis, RADHA Post-op Diagnosis Same Procedure Performed 1. excisional debridement of right heel 2. excisional debridement of right lateral ankle Surgeon Tami Rivera PA-C Bench Worker Apprentice Lynsey Altamirano NP Anesthesia None Description of Procedure The patient was placed in the right lateral recumbent position to expose the right heel site for incision and debridement. Following this, the area was prepped with iodine. Patient does not have feeling to the area, so no anesthetic was used. Using a #15 blade scalpel, sharp excisional debridement of necrotic slough and devitalized tissue was performed. An area of 3 cm x 2 cm tissue was removed from the heel. This included muscle and tendon down to depth of 1 cm. Bone was exposed in the wound bed. I then moved to the right lateral ankle wound. For this, patient was rolled to left lateral recumbent position. The I&D site was exposed. Sharp excisional debridement was performed with removal of a 3 x 5 cm area of necrotic skin, subcutaneous tissue, muscle, and tendon until healthy bleeding tissue was encountered. Pressure was applied and silver nitrate was used to achieve hemostasis. The wounds were then covered with Dakins soaked gauze, ABD pads, and then wrapped with kerlix gauze. Patient tolerated the procedure well. Urine Output 630 Drains No Packing No Pathology None sent Complications No immediate complications Condition Stable Disposition Floor AM Billing Surgery - Charge Forward: Surgery Billing
--- NOTE | 2025-07-15 15:59 | PC.NURSE ---
Dressing changed at 1500 by surgical team during debridement
[2025-07-15] MEDS: SILVER NITRATE (*SP) STICK 1 EACH TOPICAL (16:59)
[2025-07-16] VITALS (11 sets, daily range): BP systolic 140–151; BP diastolic 72–96; PULSE 89–105; RESP 18–20; TEMP 36–36.3; O2SAT 98–100
[2025-07-16] MEDS: CEFEPIME 2 GM in SODIUM CHLORIDE 0.9% IV 50 ML 100 ML IVPB ×2 (05:23→17:15)
[2025-07-16] MEDS: CENTRAL LINE FLUSH 10 ML IV PUSH ×3 (05:25→21:03)
[2025-07-16 05:48] LABS: Hematocrit 26.3 % (37.0-47.0); Hemoglobin 8.0 g/dL (12.0-15.0); Immature Granulocyte Percent A 0.4 % (0-0.5); Lymphocytes Absolute Auto 1.19 K/mm3 (0.9-3.2); Mean Corpuscular HGB Conc 30.4 g/dl (32-36); Mean Corpuscular Hemoglobin 27.3 pg (26-34); Mean Corpuscular Volume 89.8 fl (80-100); Nucleated Red Blood Cells Absolute Auto 0.000 K/mm3 (0.0-0.012); Nucleated Red Blood Cells Perc 0.0 % (0.0-0.2); Platelet Count Result 313 k/mm3 (150-375); Red Blood Count 2.93 M/mm3 (4.2-5.4); White Blood Count 10.0 K/mm3 (4.5-10.0)
[2025-07-16 06:16] LABS: Alanine Aminotransferase 20 U/L (6-35); Albumin Level 3.2 g/dL (3.5-5.1); Alkaline Phosphatase 201 U/L (38-126); Anion Gap 8 mmol/L (4-12); Aspartate Amino Transferase 35 U/L (14-36); Bilirubin,Total 0.3 mg/dL (0.2-1.3); Blood Urea Nitrogen 53 mg/dL (7-17); Calcium 8.8 mg/dL (8.4-10.2); Carbon Dioxide 24 mmol/L (22-30); Chloride 105 mmol/L (98-107); Estimated CRCL calculation 36 ml/min; Estimated Glomerular Filt Rate 47; Glucose 115 mg/dL (65-110); Potassium 3.2 mmol/L (3.4-5.0); Sodium 137 mmol/L (137-145); Total Protein 8.4 g/dL (6.3-8.2)
[2025-07-16 08:36] LABS: Magnesium 2.4 mg/dL (1.6-2.3)
[2025-07-16] MEDS: POTASSIUM CHLORIDE INJ 40 MEQ in SODIUM CHLORIDE 0.9% IV 500 ML 130 MEQ IVPB (11:08)
[2025-07-16] MEDS: THIAMINE HCL 100 MG TABLET 300 MG PO (11:09)
[2025-07-16] MEDS: FAMOTIDINE 20 MG TABLET PO ×2 (11:09→21:02)
[2025-07-16] MEDS: FERROUS SULFATE 325 MG TABLET BY MOUTH (11:09)
[2025-07-16] MEDS: SODIUM BICARBONATE TAB 325 MG TABLET PO ×2 (11:09→17:14)
[2025-07-16] MEDS: METOPROLOL TARTRATE 50 MG TAB PO ×2 (11:09→21:03)
--- NOTE | 2025-07-16 12:08 | P.PNGS_ITS ---
Progress Note: A&P Assessment and Plan (1) Pressure ulcers of skin of multiple topographic sites: Code(s): L89.90 - Pressure ulcer of unspecified site, unspecified stage Status: Chronic Assessment and Plan: The patient presented to [facility] Via EMS from [facility] on 07/03/2025 with concern for lower abdominal pain and vomiting. While in the emergency department, patient was noted to have multiple chronic pressure wounds. The general surgery team was consulted to evaluate these wounds.? She is well-known to the service, as she has had multiple? surgical debridements and hospitalizations for these wounds.? Upon examination of this patient, the right posterior scapula, sacral, right ischial, left ischial, right posterior thigh, and right heel all appear stable since last seen during patient?s most recent admission from 05/28/25 to 06/05/2025. However, the wound to her right dorsal foot appears to have increased in severity, now with necrotic tissue, tendon, and bone exposed. What appears to be synovial fluid from the ankle joint is leaking from the wound. While we could attempt to debride this wound, this would not be advisable as it is unlikely to ever heal and would necessitate frequent, difficult dressing changes. Another option that we pondered was a kcayg-[id number]-nett amputation. However, due to the patient?s severe contractions of her lower extremities, this would also require concurrent tendon severance by orthopedic team. A [id number]-[id number] amputation would leave the patient with a lower leg stump that would still be exposed to pressure from patient?s mattress and her left leg. This would ultimately lead to a pressure wound to the stump. With all of this taken into consideration, we believe it is in the patient?s best interest to undergo a right above the knee amputation. Being that the patient is bedbound and does not have any mobility of her legs, this would not affect her physical function. This would provide the least likelihood of any recurring pressure wou nds to the limb. * Afebrile. Clinically appears stable. WBC remains normal. Bun/Cr remains elevated. In our professional opinion, a right above the knee amputation would most benefit the patient. However, patient's legal guardian, Abe Burnham, is requesting a second opinion from a tertiary care center. Patient is medically stable for discharge back to [facility]. We will send outpatient referral to [facility] plastic surgery wound care center. Prior to discharge we will debride patient's ankle and heel wound at the bedside. Verbal consent obtained from Abe Burnham. * Patient accepted for transfer to [facility]. Awaiting bed. * Continue daily dressing changes with Dakin's soaked gauze. * Continue IV antibiotics while inpatient. Consider switch to oral antibiotics upon discharge. Additionally, the patient is incontinent of both stool and urine. Multiple attempts at urinary catheter placement have been made without any success. The patient?s anatomy and contractures make this very difficult. Also due to these deformities, a Purewick catheter is unable to effectively collect urine. This essentially leaves the patient?s wounds subject to contamination with urine and feces. With this being said, we would recommend a possible placement of a suprapubic catheter and a diverting colostomy in the future. This can be scheduled as an outpatient surgery if patient's legal guardian would like to move forward with it. Plan I have discussed the patient's case and plan of care with Dr. Covarrubisa. Subjective Subjective Date/Time Seen: 07/16/25 12:08 Patient reports: no new complaints Interval history: No acute changes overnight. Seems less pale and diaphoretic. Still seems to have altered mental status. Exam Const: General: comfortable and no acute distress Eyes: General: appearance normal, both eyes and all related structures Neck: Neck: supple Resp: Effort & Inspection: normal respiratory effort Cardio: Rate: tachycardic Skin: General skin exam: normal color Other: Wound dressings changed by nursing staff. Objective Data Vital Signs Vital Signs: Vital Signs - 24 hr 07/15/25 13:48 07/15/25 16:00 07/15/25 19:55 Temperature 96.9 F L 96.4 F L Pulse Rate 109 H 99 103 H Respiratory Rate 20 20 Blood Pressure 129/90 148/90 H Pulse Oximetry 98 100 Oxygen Delivery 07/15/25 20:00 07/15/25 22:42 07/15/25 22:45 Temperature Pulse Rate 99 103 H Respiratory Rate Blood Pressure Pulse Oximetry Oxygen Delivery Room Air 07/16/25 00:00 07/16/25 04:00 07/16/25 06:00 Temperature 96.8 F L Pulse Rate 95 102 H 104 H Respiratory Rate 20 Blood Pressure 151/96 H Pulse Oximetry 98 Oxygen Delivery 07/16/25 11:09 Temperature Pulse Rate 105 H Respiratory Rate Blood Pressure Pulse Oximetry Oxygen Delivery Intake/Output Intake/Output: Intake & Output 07/13/25 07/14/25 07/15/25 07/16/25 23:59 23:59 23:59 23:59 Intake Total 980 944 723 0293 Output Total 630 930 250 Balance 350 125 -830 1795 Meds/Results Medications: Active Medications Generic Name Dose Route Start Last Admin Trade Name Freq PRN Reason Stop Dose Admin Acetaminophen 650 mg 07/14/25 12:39 Acetaminophen 325 Mg Tablet BY MOUTH Q6H PRN Mild Pain (1-3) or Fever Albuterol 2.5 mg 07/04/25 01:48 Albuterol Sulfate Neb 2.5 Mg/3 Ml Inh INHALATION Q4HRT PRN Shortness Of Breath Artificial Tears 1 drop 07/04/25 09:00 07/15/25 16:59 Artificial Tears Ophth Soln 15 Ml Bottle EACH EYE 1 drop TID MERLYN Administration Bisacodyl 5 mg 07/04/25 09:00 07/16/25 11:33 Bisacodyl 5 Mg Tablet Ec PO Not Given DAILY MERLYN Dextrose 12.5 gm 07/14/25 09:38 Dextrose 50% 25 Gm/50 Ml Syringe IV PUSH PRN PRN Hypoglycemia Protocol Famotidine 20 mg 07/14/25 21:00 07/16/25 11:09 Famotidine 20 Mg Tablet PO 20 mg Q12HR MERLYN Administration Ferrous Sulfate 325 mg 07/15/25 09:00 07/16/25 11:09 Ferrous Sulfate 325 Mg Tablet BY MOUTH 325 mg DAILY MERLYN Administration Glucagon 1 mg 07/14/25 09:38 Glucagon For Inj 1 Mg Vial IM PRN PRN Hypoglycemia Protocol Glucose 15 gm 07/14/25 09:38 Glucose Oral Gel 15 Gm Of Glucse In 37.5 Gm Tube PO PRN PRN Hypoglycemia Protocol Heparin Sodium (Beef Lung) 50 units 07/04/25 09:00 07/15/25 09:01 Heparin Flush 50 Units/5 Ml Syringe IV PUSH 50 units QAM MERLYN Administration Heparin Sodium (Beef Lung) 50 units 07/04/25 08:38 07/12/25 07:56 Heparin Flush 50 Units/5 Ml Syringe IV PUSH 50 units PRN PRN Administration after intermittent infusion Heparin Sodium (Beef Lung) 50 units 07/04/25 08:38 Heparin Flush 50 Units/5 Ml Syringe IV PUSH PRN PRN after blood draws Heparin Sodium (Porcine) 5,000 units 07/04/25 09:00 07/04/25 12:17 Heparin Sodium 5,000 Units/Ml Vial SUB-Q Not Given On Hold: 07/04/25 10:50 Q12HR MERLYN Heparin Sodium (Porcine) 500 units 07/04/25 08:38 Heparin Sodium Lock Flush 500 Units/5 Ml Syringe IV PUSH PRN PRN see comments below Hydromorphone HCl 1 mg 07/13/25 02:34 07/13/25 03:53 Hydromorphone Hcl Inj (*Crx) 1 Mg/Ml Syr IV PUSH 1 mg Q4HR PRN Administration Pain Rated 7-10 Cefepime HCl 2 gm/ Sodium 50 mls @ 100 mls/hr 07/10/25 18:00 07/16/25 05:53 Chloride IVPB Infused Q12H MERLYN Infusion Dextrose 1,000 mls @ 100 mls/hr 07/14/25 09:38 Dextrose 5% 1,000 Ml IVPB PRN PRN Hypoglycemia Protocol Potassium Chloride 40 meq/ 520 mls @ 130 mls/hr 07/16/25 09:00 07/16/25 11:08 Sodium Chloride IVPB 07/16/25 12:59 130 mls/hr ONCE ONE Administration Metoprolol Tartrate 50 mg 07/14/25 21:00 07/16/25 11:09 Metoprolol Tartrate 50 Mg Tab PO 50 mg Q12HR MERLYN Administration Oxycodone HCl 5 mg 07/14/25 12:42 Oxycodone Hcl (*Crx) 5 Mg Tab Ir PO Q8H PRN PAIN RATED 7-10 Polyethylene Glycol 17 gm 07/15/25 09:00 07/16/25 11:12 Polyethylene Glycol 3350 17 Gm Powd.Pack PO 17 gm QAM MERLYN Administration Pregabalin 75 mg 07/15/25 09:00 07/16/25 11:38 Pregabalin (*Crx) 75 Mg Capsule PO Not Given DAILY MERLYN Quetiapine Fumarate 25 mg 07/15/25 09:00 07/16/25 11:09 Quetiapine Fumarate 25 Mg Tablet PO 25 mg DAILY MERLYN Administration Senna 8.6 mg 07/14/25 12:49 Sennosides 8.6 Mg Tablet PO DAILY PRN Constipation Sodium Bicarbonate 325 mg 07/14/25 17:00 07/16/25 11:09 Sodium Bicarbonate Tab 325 Mg Tablet PO 325 mg BID MERLYN Administration Sodium Chloride 10 ml 07/04/25 14:00 07/16/25 05:25 Central Line Flush IV PUSH 10 ml Q8HR MERLYN Administration Sodium Hypochlorite 1 applic 07/06/25 09:00 07/15/25 09:03 Sod Hypochlorite 1/4 Strength 473 Ml TOPICAL 1 applic DAILY MERLYN Administration Thiamine HCl 300 mg 07/15/25 09:00 07/16/25 11:09 Thiamine Hcl 100 Mg Tablet PO 300 mg QAM MERLYN Administration Trazodone HCl 50 mg 07/14/25 21:00 07/15/25 22:42 Trazodone Hcl 50 Mg Tablet PO Not Given HS [facility] Radiology Results: ITS Impressions Abdomen/Pelvis CT 07/03/25 18:41 IMPRESSION: 1. No acute abnormality. 2. Additional findings as above. 3. Chronic right basilar atelectasis and/or airspace disease. Chest X-Ray 07/03/25 20:35 IMPRESSION: 1. Chronic right basilar atelectasis and/or airspace disease. 2. Similar but less severe findings left lung. Renal Ultrasound 07/04/25 14:59 Impression: Mild left hydronephrosis Labs Labs: Laboratory Results - last 24 hr 07/15/25 07/16/25 07/16/25 18:00 01:46 05:20 WBC 10.0 RBC 2.93 L Hgb 8.0 L Hct 26.3 L MCV 89.8 MCH 27.3 MCHC 30.4 L RDW 15.8 H Plt Count 313 MPV 10.5 H Immature Gran % (Auto) 0.4 Neut % (Auto) 78.8 H Lymph % (Auto) 11.9 L [place] % (Auto) 6.0 Eos % (Auto) 2.6 Baso % (Auto) 0.3 Lymph # (Auto) 1.19 [place] # (Auto) 0.6 Eos # (Auto) 0.3 Baso # (Auto) 0.0 Abs Immat Gran (auto) 0.04 H Absolute Neuts (auto) 7.9 H Absolute Nucleated RBC 0.000 Nucleated RBC % 0.0 Sodium 137 Potassium 3.2 L Chloride 105 Carbon Dioxide 24 Anion Gap 8 BUN 53 H Creatinine 1.17 H Estim Creat Clear Calc 36 Estimated GFR 47 L Glucose 115 H POC Capillary Glucose 116 H 112 H Calcium 8.8 Phosphorus 2.9 Magnesium 2.4 H Total Bilirubin 0.3 AST 35 ALT 20 Alkaline Phosphatase 201 H Total Protein 8.4 H Albumin 3.2 L 07/16/25 11:51 WBC RBC Hgb Hct MCV MCH MCHC RDW Plt Count MPV Immature Gran % (Auto) Neut % (Auto) Lymph % (Auto) [place] % (Auto) Eos % (Auto) Baso % (Auto) Lymph # (Auto) [place] # (Auto) Eos # (Auto) Baso # (Auto) Abs Immat Gran (auto) Absolute Neuts (auto) Absolute Nucleated RBC Nucleated RBC % Sodium Potassium Chloride Carbon Dioxide Anion Gap BUN Creatinine Estim Creat Clear Calc Estimated GFR Glucose POC Capillary Glucose 105 Calcium Phosphorus Magnesium Total Bilirubin AST ALT Alkaline Phosphatase Total Protein Albumin
--- NOTE | 2025-07-16 14:31 | P.PNIM_ITS ---
Progress Note: A&P Assessment and Plan (1) Pressure ulcers of skin of multiple topographic sites: Code(s): L89.90 - Pressure ulcer of unspecified site, unspecified stage Status: Chronic Assessment and Plan: * patient has multiple nonhealing wounds. Surgery followed on recent admit 05/2025. Patient underwent debridement of ischial wound during last hospitalization. * R ankle wound is tunneling to bone. * During last hospitalization, suprapubic catheter placement/diverting ostomy was discussed to aide in healing. Was delayed due to patient's coagulation profiles. Pradaxa has been on hold since that time and PT/INR and PTT have improved. Continue to hold Pradaxa. Consult urology for suprapubic catheter placement. * Concern for wound infection although general surgery feels all wounds appear clean. Leukocytosis initially improving with Rocephin so will continue for now pending surgery recs. WBC 12 today, mildly uptrending. Consider broadening antibiotics if continues to up trend. * General surgery consulted, appreciate recs. Considering R AKA. Patient is a ramos of the critical access hospital and all consents will need to obtained from her guardian * Pending further recommendations from general surgery regarding possible R AKA * Will need above the knee amputation if approved by legal guardian * The patient's guardian has stated that he would like a 2nd opinion regarding limb amputation/colostomy * Patient has been accepted at [facility] - pending bed (2) Anemia: Code(s): D64.9 - Anemia, unspecified Status: Acute Assessment and Plan: * acute on chronic normocytic anemia * baseline Hgb around 8. Hgb 7.3 on admission and downtrended to 6.8 07/04 * last admit anemia was due to bleeding from wounds. No current signs of bleeding. * s/p 1 u PRBCs with improvement. Hgb now stable. * trend CBC. Transfuse Hgb <7 * iron studies consistent with iron deficiency. %ST<10, will give IV iron 300 mg daily x3 (3) Urinary tract infection: Code(s): N39.0 - Urinary tract infection, site not specified Status: Acute Assessment and Plan: * UA with 2+ LE, WBC 51-100 * urine culture 05/28/25 with Klebsiella pneumoniae and Providencia stuartii both sensitive to cephalosporins * admit WBC 18, afebrile, no leukocytosis * leukocytosis improving * initially started on Merrem. Transitioned to Rocephin. * Urine culture with no growth, but leukocytosis improving on Rocephin so will continue for now. * Urology consulted regarding possible suprapubic catheter placement as she is incontinent of urine/stool (4) RADHA (acute kidney injury): Code(s): N17.9 - Acute kidney failure, unspecified Status: Acute Assessment and Plan: * admit Cr 2.05. Baseline 1.2. S/p IV fluids * Cr improved to 1.30 * renal US with mild L hydronephrosis * voiding appropriately. Bladder scan without retention. * avoid nephrotoxins (5) Essential (primary) hypertension: Code(s): I10 - Essential (primary) hypertension Status: Acute Assessment and Plan: * continue home metoprolol with hold parameters (6) Generalized anxiety disorder: Code(s): F41.1 - Generalized anxiety disorder Status: Acute Assessment and Plan: * continue home citalopram, trazodone (7) Schizoaffective disorder: Code(s): F25.9 - Schizoaffective disorder, unspecified Status: Acute Assessment and Plan: * continue home trazodone (8) Multiple sclerosis: Code(s): G35 - Multiple sclerosis Status: Acute Assessment and Plan: * patient is contracted. * continue Lyrica and oxycodone (9) Gastrointestinal tube in situ: Code(s): Z93.1 - Gastrostomy status Status: Acute Assessment and Plan: * G tube was clogged on admission. GI replaced G tube 10/5 L (10) History of pulmonary embolism: Code(s): Z86.711 - Personal history of pulmonary embolism Status: Acute Assessment and Plan: * Pradaxa has been on hold since last admission, will continue to hold in case need for surgical intervention Plan DVT prophylaxis: SCDs Code status: full code Dispo: back to [facility] once medically stable Subjective Date/time seen: 07/16/25 14:31 Interval history: Comfortable at bedside. [facility] was the first choice as the patient has been seen at that hospital previously. U transfer center was called and the patient HAS been accepted by Dr. Acosta with the hospitalist team at [facility] for a second opinion regarding the R AKA/colostomy/suprapubic catheter. Review of Systems Review of Systems: The patient is a very poor historian. She tells me that she still lives with her brother and sister however she is currently at the snf. All systems reviewed & are unremarkable except as noted in HPI and below ROS unobtainable: Yes unobtainable due to mental status ENT: Reports Normal hearing present Neurologic: Reports Normal hearing present Exam Narrative: APPEARANCE: Anxious EYES: EOMI HEENT: Normocephalic, atraumatic, OMM RESPIRATORY: No respiratory distress Clear to auscultation bilaterally with no rhonchi wheezing or rales. CARDIOVASCULAR: Right chest port noted, RRR, S1 and S2 without murmurs rubs or gallops. ABDOMINAL: Feeding tube site , Soft, nontender, nondistended, no rebound or guarding MSK: Quadriplegia NEURO: Quadriplegic, cerebral palsy SKIN:: Warm, dry. No rashes lesions or abrasions PSYCHIATRIC: Sad mood Const: General: cooperative, comfortable, no acute distress, well developed, awake, Physically active, ill appearing, average body habitus and well nourished Nutritional Appearance: average body habitus and well nourished Orientation/consciousness: oriented to person Other: Contracted arms and legs. HENMT: Head: normal to inspection, No palpable skull fracture present, normocephalic, atraumatic and abrasion Ears: hearing grossly normal bilaterally and external ears normal Eyes: General: appearance normal, both eyes and all related structures Alignment and Position: alignment normal Periorbital: periorbital findings no rmal Eyelids: eyelids normal Conjunctivae: conjunctivae normal Sclera: sclerae normal Cornea: corneas normal Pupils: Equal, round and reactive pupils present and Pupil accommodation reflex normal EOM: EOMs intact bilaterally Neck: Neck: normal visual inspection, full ROM, no lymphadenopathy and trachea midline Chest: Chest palpation & inspection: normal inspection of the chest Resp: Effort & Inspection: normal respiratory effort Auscultation: clear to auscultation bilaterally Percussion: percussion normal Cardio: Palpation: normal PMI Rate: regular rate Rhythm: regular rhythm Heart sounds: S1 normal heart sound present and S2 normal heart sound present Peripheral pulses: Peripheral pulses 2+ throughout GI: Inspection: normal to inspection Auscultation: normal bowel sounds Rectal Exam: deferred : General: Yes no CVA tenderness Back/Spine/Pelvis: Back: no CVA tenderness Cervical Spine: cervical ROM normal Skin: General skin exam: normal color Lesions: no lesions Rashes: no rashes Trauma: no lacerations or abrasions Wounds: no wounds Hair: normal Nails: normal Other: She has a dressing to her left foot and per records she has a sacral ulcer but I was not able to roll her over and looked at this time. Neuro: General: oriented to person Cranial nerves: Yes Equal, round and reactive pupils present and Yes Normal hearing present Extrem: General: normal to inspection Right upper extremity: normal to inspection and shoulder/upper arm Left upper extremity: normal to inspection and shoulder/upper arm Right lower extremity: normal to inspection Left lower extremity: normal to inspection Psych: Appearance: grossly normal Mental Status: mental status grossly normal Speech and movement: Normal speech and movement present Affect: normal affect Attitude: cooperative Thought process: Normal thought process present Insight: Poor insight present (Psych) Judgement: Poor judgement present (Psych) Objective Data Vital Signs Vital Signs: Vital Signs - 24 hr 07/15/25 16:00 07/15/25 19:55 07/15/25 20:00 Temperature 96.4 F L Pulse Rate 99 103 H 99 Respiratory Rate 20 Blood Pressure 148/90 H Pulse Oximetry 100 Oxygen Delivery 10/15/25 22:42 07/15/25 22:45 07/16/25 00:00 Temperature Pulse Rate 103 H 95 Respiratory Rate Blood Pressure Pulse Oximetry Oxygen Delivery Room Air 07/16/25 04:00 07/16/25 06:00 07/16/25 11:09 Temperature 96.8 F L Pulse Rate 102 H 104 H 105 H Respiratory Rate 20 Blood Pressure 151/96 H Pulse Oximetry 98 Oxygen Delivery 07/16/25 14:00 Temperature 96.9 F L Pulse Rate 99 Respiratory Rate 18 Blood Pressure 147/72 H Pulse Oximetry 100 Oxygen Delivery Intake/Output Intake/Output: Intake & Output 07/13/25 07/14/25 07/15/25 07/16/25 23:59 23:59 23:59 23:59 Intake Total 980 767 622 1588 Output Total 630 930 250 Balance 350 125 -830 1795 Meds/Results Medications: Active Medications Generic Name Dose Route Start Last Admin Trade Name Freq PRN Reason Stop Dose Admin Acetaminophen 650 mg 07/14/25 12:39 Acetaminophen 325 Mg Tablet BY MOUTH Q6H PRN Mild Pain (1-3) or Fever Albuterol 2.5 mg 07/04/25 01:48 Albuterol Sulfate Neb 2.5 Mg/3 Ml Inh INHALATION Q4HRT PRN Shortness Of Breath Artificial Tears 1 drop 07/04/25 09:00 07/15/25 16:59 Artificial Tears Ophth Soln 15 Ml Bottle EACH EYE 1 drop TID MERLYN Administration Bisacodyl 5 mg 07/04/25 09:00 07/16/25 11:33 Bisacodyl 5 Mg Tablet Ec PO Not Given DAILY MERLYN Dextrose 12.5 gm 07/14/25 09:38 Dextrose 50% 25 Gm/50 Ml Syringe IV PUSH PRN PRN Hypoglycemia Protocol Famotidine 20 mg 07/14/25 21:00 07/16/25 11:09 Famotidine 20 Mg Tablet PO 20 mg Q12HR MERLYN Administration Ferrous Sulfate 325 mg 07/15/25 09:00 07/16/25 11:09 Ferrous Sulfate 325 Mg Tablet BY MOUTH 325 mg DAILY MERLYN Administration Glucagon 1 mg 07/14/25 09:38 Glucagon For Inj 1 Mg Vial IM PRN PRN Hypoglycemia Protocol Glucose 15 gm 07/14/25 09:38 Glucose Oral Gel 15 Gm Of Glucse In 37.5 Gm Tube PO PRN PRN Hypoglycemia Protocol Heparin Sodium (Beef Lung) 50 units 07/04/25 09:00 07/15/25 09:01 Heparin Flush 50 Units/5 Ml Syringe IV PUSH 50 units QAM MERLYN Administration Heparin Sodium (Beef Lung) 50 units 07/04/25 08:38 07/12/25 07:56 Heparin Flush 50 Units/5 Ml Syringe IV PUSH 50 units PRN PRN Administration after intermittent infusion Heparin Sodium (Beef Lung) 50 units 07/04/25 08:38 Heparin Flush 50 Units/5 Ml Syringe IV PUSH PRN PRN after blood draws Heparin Sodium (Porcine) 5,000 units 07/04/25 09:00 07/04/25 12:17 Heparin Sodium 5,000 Units/Ml Vial SUB-Q Not Given On Hold: 07/04/25 10:50 Q12HR MERLYN Heparin Sodium (Porcine) 500 units 07/04/25 08:38 Heparin Sodium Lock Flush 500 Units/5 Ml Syringe IV PUSH PRN PRN see comments below Hydromorphone HCl 1 mg 07/13/25 02:34 07/13/25 03:53 Hydromorphone Hcl Inj (*Crx) 1 Mg/Ml Syr IV PUSH 1 mg Q4HR PRN Administration Pain Rated 7-10 Cefepime HCl 2 gm/ Sodium 50 mls @ 100 mls/hr 07/10/25 18:00 07/16/25 05:53 Chloride IVPB Infused Q12H MERLYN Infusion Dextrose 1,000 mls @ 100 mls/hr 07/14/25 09:38 Dextrose 5% 1,000 Ml IVPB PRN PRN Hypoglycemia Protocol Metoprolol Tartrate 50 mg 07/14/25 21:00 07/16/25 11:09 Metoprolol Tartrate 50 Mg Tab PO 50 mg Q12HR MERLYN Administration Oxycodone HCl 5 mg 07/14/25 12:42 Oxycodone Hcl (*Crx) 5 Mg Tab Ir PO Q8H PRN PAIN RATED 7-10 Polyethylene Glycol 17 gm 07/15/25 09:00 07/16/25 11:12 Polyethylene Glycol 3350 17 Gm Powd.Pack PO 17 gm QAM MERLYN Administration Pregabalin 75 mg 07/15/25 09:00 07/16/25 11:38 Pregabalin (*Crx) 75 Mg Capsule PO Not Given DAILY MERLYN Quetiapine Fumarate 25 mg 07/15/25 09:00 07/16/25 11:09 Quetiapine Fumarate 25 Mg Tablet PO 25 mg DAILY MERLYN Administration Senna 8.6 mg 07/14/25 12:49 Sennosides 8.6 Mg Tablet PO DAILY PRN Constipation Sodium Bicarbonate 325 mg 07/14/25 17:00 07/16/25 11:09 Sodium Bicarbonate Tab 325 Mg Tablet PO 325 mg BID MERLYN Administration Sodium Chloride 10 ml 07/04/25 14:00 07/16/25 05:25 Central Line Flush IV PUSH 10 ml Q8HR MERLYN Administration Sodium Hypochlorite 1 applic 07/06/25 09:00 07/15/25 09:03 Sod Hypochlorite 1/4 Strength 473 Ml TOPICAL 1 applic DAILY MERLYN Administration Thiamine HCl 300 mg 07/15/25 09:00 07/16/25 11:09 Thiamine Hcl 100 Mg Tablet PO 300 mg QAM MERLYN Administration Trazodone HCl 50 mg 07/14/25 21:00 07/15/25 22:42 Trazodone Hcl 50 Mg Tablet PO Not Given HS MERLYN Radiology Results: ITS Impressions Abdomen/Pelvis CT 07/03/25 18:41 IMPRESSION: 1. No acute abnormality. 2. Additional findings as above. 3. Chronic right basilar atelectasis and/or airspace disease. Chest X-Ray 07/03/25 20:35 IMPRESSION: 1. Chronic right basilar atelectasis and/or airspace disease. 2. Similar but less severe findings left lung. Renal Ultrasound 07/04/25 14:59 Impression: Mild left hydronephrosis Labs Labs: Laboratory Results - last 24 hr 07/15/25 07/16/25 07/16/25 18:00 01:46 05:20 WBC 10.0 RBC 2.93 L Hgb 8.0 L Hct 26.3 L MCV 89.8 MCH 27.3 MCHC 30.4 L RDW 15.8 H Plt Count 313 MPV 10.5 H Immature Gran % (Auto) 0.4 Neut % (Auto) 78.8 H Lymph % (Auto) 11.9 L Lea % (Auto) 6.0 Eos % (Auto) 2.6 Baso % (Auto) 0.3 Lymph # (Auto) 1.19 Lea # (Auto) 0.6 Eos # (Auto) 0.3 Baso # (Auto) 0.0 Abs Immat Gran (auto) 0.04 H Absolute Neuts (auto) 7.9 H Absolute Nucleated RBC 0.000 Nucleated RBC % 0.0 Sodium 137 Potassium 3.2 L Chloride 105 Carbon Dioxide 24 Anion Gap 8 BUN 53 H Creatinine 1.17 H Estim Creat Clear Calc 36 Estimated GFR 47 L Glucose 115 H POC Capillary Glucose 116 H 112 H Calcium 8.8 Phosphorus 2.9 Magnesium 2.4 H Total Bilirubin 0.3 AST 35 ALT 20 Alkaline Phosphatase 201 H Total Protein 8.4 H Albumin 3.2 L 07/16/25 11:51 WBC RBC Hgb Hct MCV MCH MCHC RDW Plt Count MPV Immature Gran % (Auto) Neut % (Auto) Lymph % (Auto) Lea % (Auto) Eos % (Auto) Baso % (Auto) Lymph # (Auto) Lea # (Auto) Eos # (Auto) Baso # (Auto) Abs Immat Gran (auto) Absolute Neuts (auto) Absolute Nucleated RBC Nucleated RBC % Sodium Potassium Chloride Carbon Dioxide Anion Gap BUN Creatinine Estim Creat Clear Calc Estimated GFR Glucose POC Capillary Glucose 105 Calcium Phosphorus Magnesium Total Bilirubin AST ALT Alkaline Phosphatase Total Protein Albumin Quality VTE Prophylaxis VTE prophylaxis: mechanical ordered
[2025-07-16] MEDS: SOD HYPOCHLORITE 1/4 STRENGTH 473 ML 1 APPLIC TOPICAL (17:14)
[2025-07-16 19:16] LABS: Iron 54 ug/dL (37-170)
[2025-07-16 20:07] LABS: Percent Iron Saturation 33 % (20-50)
[2025-07-16 21:18] LABS: Ferritin > 2000.00 ng/mL (11.1-264)
[2025-07-17] VITALS: PULSE 103
[2025-07-17 04:00] VITALS: PULSE 101
[2025-07-17 04:45] VITALS: BP 158/97; PULSE 108; RESP 16; TEMP 36; O2SAT 98
--- NOTE | 2025-07-17 07:45 | P.TS_ITS ---
Transfer Discharge Sum: Prov Provider Date of admission: 07/04/25 08:24 Primary care physician: Luis Eduardo Quiroga, MD Admitting clinician: Beto Chairez MD Consults: 07/04/25 Consult to Physician Routine Comment: Consulting Provider: Tonio Del Real house calls nurse practitioner/MD group to consult: GI Spoke to Dr 10.4 @ 3435 Reason for consultation: clogged PEG tube Has provider been notified: Yes Consult to Physician Routine Comment: Consulting Provider: Brian Covarrubias house calls nurse practitioner/MD group to consult: general surgery Spoke to exchange 10.4 @ 1218 Reason for consultation: wounds, recent debridement, poor healing. Also with clogged PEG Has provider been notified: Yes Wound/ET Consult Routine Reason for Consult:: Sacral wounds and left foot wound. Wound/ET Consult Routine Reason for Consult:: ischial wound 07/06/25 Consult to Physician Routine Comment: Consulting Provider: Raul Mayes house calls nurse practitioner/MD group to consult: urology spoke to office 10.6 @ 2851 Reason for consultation: suprapubic catheter palcement for wound healing Has provider been notified: Yes 07/10/25 13:51 Consult to Physician Routine Comment: Spoke to 07/10 0438 ([facility]) Consulting Provider: Ruthann Watson house calls nurse practitioner/MD group to consult: Nephrology Reason for consultation: Hyperkalemia Has provider been notified: Yes DS: Admitting Diagnosis Discharge Date 07/17/25 Admitting Diagnosis Abdominal pain DS: Discharge Diagnosis Discharge Diagnosis (1) Pressure ulcers of skin of multiple topographic sites: Code(s): L89.90 - Pressure ulcer of unspecified site, unspecified stage Status: Chronic Transfer Discharge Sum: Med Medications Active and Home Medications: Home Medications cholecalciferol (vitamin D3) 1,000 units G-tube DAILY 12/17/22 [History Confirmed 07/03/25] famotidine 20 mg tablet 20 mg PO BID 12/17/22 [History Confirmed 07/03/25] ondansetron 4 mg disintegrating tablet 4 mg PO QID PRN Nausea And Vomiting 12/17/22 [History Confirmed 07/03/25] trazodone 50 mg tablet 50 mg PO HS 12/17/22 [History Confirmed 07/03/25] sennosides 8.6 mg tablet (senna) 8.6 mg PO DAILY PRN Constipation 07/27/23 [History Confirmed 07/03/25] thiamine HCl (vitamin B1) 100 mg tablet (Vitamin B-1) 300 mg (3 x 100 mg) feeding tube QAM #90 tabs 01/31/24 [Rx Confirmed 07/03/25] citalopram 20 mg tablet 30 mg PO DAILY 06/20/24 [History Confirmed 07/03/25] dextran 70-hypromellose eye drops (Artificial Tears (dextran 70-hypromellose) eye drops) 1 drp EACH EYE TID 06/20/24 [History Confirmed 07/03/25] metoprolol tartrate 50 mg tablet 50 mg PO TID 06/20/24 [History Confirmed 07/03/25] polyethylene glycol 3350 17 gram oral powder packet (Miralax) 17 g PO QAM #30 ea 07/17/24 [Rx Confirmed 07/03/25] arginine 7 gram-glutamine 7 gram-calcium HMB 1.5 gram oral powder pack (Maged) 1 ea PO BID 01/13/25 [History Confirmed 07/03/25] bisacodyl 5 mg tablet,delayed release 5 mg PO DAILY 01/13/25 [History Confirmed 07/03/25] ipratropium bromide 0.02 % solution for inhalation 1.25 ml inhalation DAILY PRN shortness of breath or wheezing 01/13/25 [History Confirmed 07/03/25] dabigatran etexilate 150 mg capsule 150 mg PO BID 05/28/25 [History Confirmed 07/03/25] Held on 06/05/25. Instructions: Resume on 06/26/25. Hold until suprapubic catheter is placed furosemide 20 mg tablet 20 mg feeding tube DAILY 05/28/25 [History Confirmed 07/03/25] quetiapine 25 mg tablet 25 mg PO DAILY 05/28/25 [History Confirmed 07/03/25] sodium bicarbonate 650 mg tablet 325 mg PO BID 05/28/25 [History Confirmed 07/03/25] magnesium citrate (Citroma oral solution) 296 ml PO DAILY PRN constipation 07/03/25 [History Confirmed 07/03/25] magnesium hydroxide 400 mg/5 mL oral suspension (Milk of Magnesia) 30 ml PO DAILY PRN constipation 07/03/25 [History Confirmed 07/03/25] fyqjjsvppbfn-nkqh-xffpa acid 1 tablet PO DAILY 07/03/25 [History Confirmed 07/03/25] oxycodone 5 mg capsule 5 mg PO Q8H PRN pain 07/03/25 [History Confirmed 07/03/25] pregabalin 75 mg capsule 75 mg PO DAILY 07/03/25 [History Confirmed 07/03/25] sodium phosphates 133 ml RECTAL DAILY PRN constipation 07/03/25 [History Confirmed 07/03/25] lactose-reduced food with fiber 0.06 gram-1.5 kcal/mL oral liquid (Jevity 1.5 Elmer) 1 ea feeding tube .continuous 07/04/25 [History Confirmed 07/04/25] Transfer Discharge Sum: Hosp Hospital Course Hospital course: Reason for Transfer * Second opinion and advanced wound care management for multiple chronic, nonhealing pressure ulcers, including consideration of right above-knee amputation (AKA), diverting colostomy, and suprapubic catheter placement. * Patient is a ramos of the state; all major decisions require consent from legal guardian (Abe Burnham). Hospital Course Summary Presenting Problem: 60-year-old female with advanced multiple sclerosis, severe debility, and contractures, admitted from nursing facility for abdominal pain, vomiting, and concern for UTI. Notable for chronic, extensive pressure ulcers and recurrent infections. Gonzalez Active Problems and Management: * Pressure Ulcers (L89.90): * Multiple stage III/IV ulcers: sacrum, bilateral ischial, right posterior thigh, right heel, right dorsal foot (with exposed tendon/bone, draining synovial fluid). * Wounds frequently contaminated due to incontinence and ineffective urine collection (Purewick not functional due to contractures). * Local wound care with Dakin?s solution, daily dressing changes. * General surgery and wound care involved; right foot wound not amenable to further debridement. * Surgical recommendation:?Right above-knee amputation (AKA) for nonhealing right foot wound; diverting colostomy and suprapubic catheter for wound healing. Awaiting guardian consent; guardian requested second opinion at [facility]. * Outpatient referral to [facility] placed. * Anemia (D64.9): * Acute on chronic normocytic anemia, baseline Hgb ?8, jason 6.8. * Transfused 1 unit PRBCs; Hgb now stable. * Iron studies consistent with iron deficiency; IV iron administered. * Urinary Tract Infection (N39.0): * UA: 2+ LE, WBC 51-100; urine cultures with history of multidrug-resistant organisms (Klebsiella, Providencia). * Treated with IV antibiotics (initially Meropenem, transitioned to Rocephin). * Leukocytosis improved; urine culture on this admission with no growth. * Acute Kidney Injury on CKD Stage 3 (N17.9, N18.30): * Admission Cr 2.05 (baseline ?1.2), improved to 1.3 with IV fluids. * Renal US: mild left hydronephrosis. * Avoided nephrotoxins; nephrology consulted. * Hyperkalemia (E87.5): * Mild, resolved with Lokelma, low K+ diet, and renal tube feeds. * Lokelma discontinued; K+ stable. * Gastrostomy Tube Malfunction (K94.23, Z93.1): * PEG tube clogged on admission; replaced by GI at bedside without complication. * Patient receives both tube feeds and some oral intake. * Other Chronic Conditions: * Multiple sclerosis (G35) with functional quadriplegia and contractures. * Essential hypertension (I10), on metoprolol. * Schizoaffective disorder (F25.9), generalized anxiety disorder (F41.1), on home psychotropic medications. * History of pulmonary embolism (Z86.711); Pradaxa held due to surgical planning. Procedures/Consults During Admission * General Surgery:?Ongoing wound care, surgical planning for R AKA, colostomy, suprapubic catheter. * Nephrology:?Management of RADHA, CKD, hyperkalemia. * Gastroenterology:?PEG tube replacement. * Urology:?Consulted for suprapubic catheter; will coordinate with general surgery if surgical intervention pursued. * Wound Care Nursing:?Daily dressing changes, pressure offloading. Discharge/Transfer Condition * Afebrile, hemodynamically stable, no acute distress. * Wounds stable but right foot wound with exposed bone/tendon, draining synovial fluid. * Mental status: Oriented to self and month only, at baseline per facility. * Medically stable for transfer. Discharge/Transfer Medications * Continue home medications as reconciled (see med list). * IV antibiotics (Rocephin) to continue until further recommendations at U. * Metoprolol, citalopram, trazodone, Lyrica, oxycodone, iron, tube feeds (renal formula), others as per med list. * Pradaxa held. Follow-up/Recommendations * [facility] plastic surgery/wound care?for advanced wound management and second opinion on surgical options. * General surgery/urology?for possible R AKA, colostomy, suprapubic catheter (pending guardian consent). * Continue wound care?and pressure offloading. * Monitor labs:?CBC, renal function, electrolytes. * DVT prophylaxis:?SCDs (no anticoagulation due to pending surgery). * Guardian:?Abe Burnham ([phone]) for all major decisions. Patient Condition: Stable Time Spent with Patient Time attestation: Total time spent providing and/or coordinating transfer services: DS: Data Data Completed and Pending Labs on day of discharge: Labs from last 24 hours 07/17/25 07/17/25 07/16/25 04:50 00:27 18:31 POC Capillary Glucose 107 H 101 104 Phosphorus Magnesium Iron TIBC % Saturation Ferritin 07/16/25 07/16/25 11:51 05:20 POC Capillary Glucose 105 Phosphorus 2.9 Magnesium 2.4 H Iron 54 TIBC 165 L % Saturation 33 Ferritin > 2000.00 H Preliminary micro results at discharge 07/10/25 17:05 Aerobic Culture - Preliminary Foot Right Pseudomonas aeruginosa 07/10/25 20:02 Blood Culture - Preliminary Blood 07/10/25 20:10 Blood Culture - Preliminary Blood
--- NOTE | 2025-07-17 07:45 | PM.TDS ---
Transfer Discharge Sum: Prov Provider Date of admission: 07/04/25 08:24 Primary care physician: Luis Eduardo Quiroga, MD Admitting clinician: Beto Chairez MD Consults: 07/04/25 Consult to Physician Routine Comment: Consulting Provider: Tonio Del Real call or contact centre manager/MD group to consult: GI Spoke to Dr 10.4 @ 3495 Reason for consultation: clogged PEG tube Has provider been notified: Yes Consult to Physician Routine Comment: Consulting Provider: Brian Covarrubias call or contact centre manager/MD group to consult: general surgery Spoke to exchange 10.4 @ 1218 Reason for consultation: wounds, recent debridement, poor healing. Also with clogged PEG Has provider been notified: Yes Wound/ET Consult Routine Reason for Consult:: Sacral wounds and left foot wound. Wound/ET Consult Routine Reason for Consult:: ischial wound 07/06/25 Consult to Physician Routine Comment: Consulting Provider: Raul Mayes call or contact centre manager/MD group to consult: urology spoke to office 10.6 @ 3739 Reason for consultation: suprapubic catheter palcement for wound healing Has provider been notified: Yes 07/10/25 13:51 Consult to Physician Routine Comment: Spoke to 07/10 [id number] ([facility]) Consulting Provider: Ruthann Watson call or contact centre manager/MD group to consult: Nephrology Reason for consultation: Hyperkalemia Has provider been notified: Yes DS: Admitting Diagnosis Discharge Date 07/17/25 Admitting Diagnosis Abdominal pain DS: Discharge Diagnosis Discharge Diagnosis (1) Pressure ulcers of skin of multiple topographic sites: Code(s): L89.90 - Pressure ulcer of unspecified site, unspecified stage Status: Chronic Transfer Discharge Sum: Med Medications Active and Home Medications: Home Medications cholecalciferol (vitamin D3) 1,000 units G-tube DAILY 12/17/22 [History Confirmed 07/03/25] famotidine 20 mg tablet 20 mg PO BID 12/17/22 [History Confirmed 07/03/25] ondansetron 4 mg disintegrating tablet 4 mg PO QID PRN Nausea And Vomiting 12/17/22 [History Confirmed 07/03/25] trazodone 50 mg tablet 50 mg PO HS 12/17/22 [History Confirmed 07/03/25] sennosides 8.6 mg tablet (senna) 8.6 mg PO DAILY PRN Constipation 07/27/23 [History Confirmed 07/03/25] thiamine HCl (vitamin B1) 100 mg tablet (Vitamin B-1) 300 mg (3 x 100 mg) feeding tube QAM #90 tabs 01/31/24 [Rx Confirmed 07/03/25] citalopram 20 mg tablet 30 mg PO DAILY 06/20/24 [History Confirmed 07/03/25] dextran 70-hypromellose eye drops (Artificial Tears (dextran 70-hypromellose) eye drops) 1 drp EACH EYE TID 06/20/24 [History Confirmed 07/03/25] metoprolol tartrate 50 mg tablet 50 mg PO TID 06/20/24 [History Confirmed 07/03/25] polyethylene glycol 3350 17 gram oral powder packet (Miralax) 17 g PO QAM #30 ea 07/17/24 [Rx Confirmed 07/03/25] arginine 7 gram-glutamine 7 gram-calcium HMB 1.5 gram oral powder pack (Maged) 1 ea PO BID 01/13/25 [History Confirmed 07/03/25] bisacodyl 5 mg tablet,delayed release 5 mg PO DAILY 01/13/25 [History Confirmed 07/03/25] ipratropium bromide 0.02 % solution for inhalation 1.25 ml inhalation DAILY PRN shortness of breath or wheezing 01/13/25 [History Confirmed 07/03/25] dabigatran etexilate 150 mg capsule 150 mg PO BID 05/28/25 [History Confirmed 07/03/25] Held on 06/05/25. Instructions: Resume on 06/26/25. Hold until suprapubic catheter is placed furosemide 20 mg tablet 20 mg feeding tube DAILY 05/28/25 [History Confirmed 07/03/25] quetiapine 25 mg tablet 25 mg PO DAILY 05/28/25 [History Confirmed 07/03/25] sodium bicarbonate 650 mg tablet 325 mg PO BID 05/28/25 [History Confirmed 07/03/25] magnesium citrate (Citroma oral solution) 296 ml PO DAILY PRN constipation 07/03/25 [History Confirmed 07/03/25] magnesium hydroxide 400 mg/5 mL oral suspension (Milk of Magnesia) 30 ml PO DAILY PRN constipation 07/03/25 [History Confirmed 07/03/25] ypuhdybkvlae-hwog-kedwn acid 1 tablet PO DAILY 07/03/25 [History Confirmed 07/03/25] oxycodone 5 mg capsule 5 mg PO Q8H PRN pain 07/03/25 [History Confirmed 07/03/25] pregabalin 75 mg capsule 75 mg PO DAILY 07/03/25 [History Confirmed 07/03/25] sodium phosphates 133 ml RECTAL DAILY PRN constipation 07/03/25 [History Confirmed 07/03/25] lactose-reduced food with fiber 0.06 gram-1.5 kcal/mL oral liquid (Jevity 1.5 Elmer) 1 ea feeding tube .continuous 07/04/25 [History Confirmed 07/04/25] Transfer Discharge Sum: Hosp Hospital Course Hospital course: Reason for Transfer Second opinion and advanced wound care management for multiple chronic, nonhealing pressure ulcers, including consideration of right above-knee amputation (AKA), diverting colostomy, and suprapubic catheter placement. Patient is a ramos of the [facility]; all major decisions require consent from legal guardian (Abe Tej). Hospital Course Summary Presenting Problem: 60-year-old female with advanced multiple sclerosis, severe debility, and contractures, admitted from nursing facility for abdominal pain, vomiting, and concern for UTI. Notable for chronic, extensive pressure ulcers and recurrent infections. Gonzalez Active Problems and Management: Pressure Ulcers (L89.90): Multiple stage III/IV ulcers: sacrum, bilateral ischial, right posterior thigh, right heel, right dorsal foot (with exposed tendon/bone, draining synovial fluid). Wounds frequently contaminated due to incontinence and ineffective urine collection (Purewick not functional due to contractures). Local wound care with Dakin?s solution, daily dressing changes. General surgery and wound care involved; right foot wound not amenable to further debridement. Surgical recommendation:?Right above-knee amputation (AKA) for nonhealing right foot wound; diverting colostomy and suprapubic catheter for wound healing. Awaiting guardian consent; guardian requested second opinion at [facility]. Outpatient referral to [facility] plastic surgery wound care center placed. Anemia (D64.9): Acute on chronic normocytic anemia, baseline Hgb ?8, jason 6.8. Transfused 1 unit PRBCs; Hgb now stable. Iron studies consistent with iron deficiency; IV iron administered. Urinary Tract Infection (N39.0): UA: 2+ LE, WBC 51-100; urine cultures with history of multidrug-resistant organisms (Klebsiella, Providencia). Treated with IV antibiotics (initially Meropenem, transitioned to Rocephin). Leukocytosis improved; urine culture on this admission with no growth. Acute Kidney Injury on CKD Stage 3 (N17.9, N18.30): Admission Cr 2.05 (baseline ?1.2), improved to 1.3 with IV fluids. Renal US: mild left hydronephrosis. Avoided nephrotoxins; nephrology consulted. Hyperkalemia (E87.5): Mild, resolved with Lokelma, low K+ diet, and renal tube feeds. Lokelma discontinued; K+ stable. Gastrostomy Tube Malfunction (K94.23, Z93.1): PEG tube clogged on admission; replaced by GI at bedside without complication. Patient receives both tube feeds and some oral intake. Other Chronic Conditions: Multiple sclerosis (G35) with functional quadriplegia and contractures. Essential hypertension (I10), on metoprolol. Schizoaffective disorder (F25.9), generalized anxiety disorder (F41.1), on home psychotropic medications. History of pulmonary embolism (Z86.711); Pradaxa held due to surgical planning. Procedures/Consults During Admission General Surgery:?Ongoing wound care, surgical planning for R AKA, colostomy, suprapubic catheter. Nephrology:?Management of RADHA, CKD, hyperkalemia. Gastroenterology:?PEG tube replacement. Urology:?Consulted for suprapubic catheter; will coordinate with general surgery if surgical intervention pursued. Wound Care Nursing:?Daily dressing changes, pressure offloading. Discharge/Transfer Condition Afebrile, hemodynamically stable, no acute distress. Wounds stable but right foot wound with exposed bone/tendon, draining synovial fluid. Mental status: Oriented to self and month only, at baseline per facility. Medically stable for transfer. Discharge/Transfer Medications Continue home medications as reconciled (see med list). IV antibiotics (Rocephin) to continue until further recommendations at [facility]. Metoprolol, citalopram, trazodone, Lyrica, oxycodone, iron, tube feeds (renal formula), others as per med list. Pradaxa held. Follow-up/Recommendations [facility] plastic surgery/wound care?for advanced wound management and second opinion on surgical options. General surgery/urology?for possible R AKA, colostomy, suprapubic catheter (pending guardian consent). Continue wound care?and pressure offloading. Monitor labs:?CBC, renal function, electrolytes. DVT prophylaxis:?SCDs (no anticoagulation due to pending surgery). Guardian:?Abe Burnham ([phone]) for all major decisions. Patient Condition: Stable Time Spent with Patient Time attestation: Total time spent providing and/or coordinating transfer services: DS: Data Data Completed and Pending Labs on day of discharge: Labs from last 24 hours 07/17/25 07/17/25 07/16/25 04:50 00:27 18:31 POC Capillary Glucose 107 H 101 104 Phosphorus Magnesium Iron TIBC % Saturation Ferritin 07/16/25 07/16/25 11:51 05:20 POC Capillary Glucose 105 Phosphorus 2.9 Magnesium 2.4 H Iron 54 TIBC 165 L % Saturation 33 Ferritin > 2000.00 H Preliminary micro results at discharge 07/10/25 17:05 Aerobic Culture - Preliminary Foot Right Pseudomonas aeruginosa 07/10/25 20:02 Blood Culture - Preliminary Blood 07/10/25 20:10 Blood Culture - Preliminary Blood
[2025-07-22 01:07] LABS: Renin Activity, Plasma 0.672 ng/mL/hr (0.167-5.380)
== END 2025-07-17 05:30 | disposition short-term general hospital (02) | DRG 981 ==
LOC: ANHED 20:16 → ANH3MEDSUR 21:51
PROVIDERS: Internal Medicine Nephrology; Nurse Practitioner; Physician Assistant; Student in an Organized Health Care Education/Training Program; Admitting Provider Internal Medicine; Emergency Provider Physician Assistant; PCP Internal Medicine; Visit Provider Internal Medicine
DX: N39.0 Urinary tract infection, site not specified (principal); L89.113 Pressure ulcer of right upper back, stage 3; L89.613 Pressure ulcer of right heel, stage 3; L89.154 Pressure ulcer of sacral region, stage 4; L89.43 Pressure ulcer of contiguous site of back, buttock and hip, stage 3; R53.2 Functional quadriplegia; J96.11 Chronic respiratory failure with hypoxia; N17.9 Acute kidney failure, unspecified; E44.0 Moderate protein-calorie malnutrition; Z68.1 Body mass index [BMI] 19.9 or less, adult; K94.23 Gastrostomy malfunction; D63.1 Anemia in chronic kidney disease; E78.5 Hyperlipidemia, unspecified; E87.5 Hyperkalemia; F41.1 Generalized anxiety disorder; F25.9 Schizoaffective disorder, unspecified; G35.D Multiple sclerosis, unspecified; I12.9 Hypertensive chronic kidney disease with stage 1 through stage 4 chronic kidney disease, or unspecified chronic kidney disease; J44.9 Chronic obstructive pulmonary disease, unspecified; N18.30 Chronic kidney disease, stage 3 unspecified; R32 Unspecified urinary incontinence; R15.9 Full incontinence of feces; Z86.711 Personal history of pulmonary embolism; Z99.81 Dependence on supplemental oxygen; Z90.5 Acquired absence of kidney; Z74.01 Bed confinement status
CPT/HCPCS: 36415; 36430; 71045; 74176; 76770; 80048; 80053; 80202; 81001; 81025; 82088; 82533; 82550; 82607; 82728; 82746; 82948; 83010; 83540; 83550; 83605; 83615; 83690; 83735; 83930; 84100; 84244; 84443; 85014; 85018; 85025; 85055; 85610; 85730; 86140; 86850; 86900; 86901; 86923; 87040; 87070; 87075; 87086; 87186; 96361; 96365; 99285; A9270; G0378; J0692; J0696; J1171; J1642; J1756; J2185; J3373; J3480; J7030; J7040; J7050; J7120; P9016

== ENCOUNTER 2025-07-27 06:41 | Emergency (ER) | payer MEDICARE, MEDICAID, SELFPAY ==
--- NOTE | ~2025-07-27 | XR_ITS ---
EXAMINATION: XR abdomen gastric tube insert COMPARISON: No comparisons available. HISTORY: G tube insertion FINDINGS: There is contrast within the stomach and small bowel, no extraluminal contrast. No free air. No abnormal calcifications No acute osseous abnormality. Impression: 1. Feeding tube in appropriate location Reviewed, dictated and finalized at location P. Impression: 1. Feeding tube in appropriate location
[2025-07-27 06:35] VITALS: BP 125/89; PULSE 92; RESP 13; TEMP 36.8; O2SAT 99
--- OUTSIDE RECORDS SUMMARY | 2025-07-27 07:22 | XMS_ITS | Clinical Summary ---
Author Organization [facility] Address [address] [place] [address] Care Team Providers Care Lithopone Charger Name Role Phone Luis Eduardo Quiroga MD Primary Care Provider + [phone] Source Comments [facility],non-owned Affiliates and Associated Physician Practices is amultiple site organization consisting of ambulatory clinics and hospital sitesin [place], [place], [place] and [place]. This disclosure is being madepursuant to the Care Everywhere program and may not contain all information available regarding this patient. Last updated 18.[facility] Allergies No known active allergies Medications * [...] route once daily 5 Active HYDROcodone-acet aminophen (Lejunior) 5-325 MG tabletIndication s:Closed fracture of distal end of right femur with routine healing, unspecified fracture morphology, subsequent encounter 1 (one) tablet by Per G Tube route every 6 hours as needed for Pain 12 tablet 5 Active Active Problems Problem Noted Date Diagnosed Date Abdominal pain 07/19/2025 Assessment & Plan (07/21/2025 11:36 AM CDT): - Reducible ventral hernia in left periumbilical region, tender to palpation - Abdomen is firm, patient endorses constipation - Reports no BM since admission, does endorse passing gas - KUB obtained this AM 07/20/25, per radiology read bowel is distended at the ULN, thus no obstruction at this time PLAN: - Hold iron supplementation at this time given worsening constipation - Continue scheduled bowel regimen: Miralax 17 g BID, Senna 17.2 mg QD Assessment & Plan (07/20/2025 11:56 AM CDT): - Reducible ventral hernia in left periumbilical region, tender to palpation - Abdomen is firm, patient endorses constipation - Reports no BM since admission, does endorse passing gas - KUB obtained this AM 07/20/25, per radiology read bowel is distended at the ULN, thus no obstruction at this time PLAN: - Will give tap water enema as well as mag citrate today - Hold iron supplementation at this time given worsening constipation - Continue scheduled bowel regimen: Miralax 17 g BID, Senna 17.2 mg QD Assessment & Plan (07/19/2025 2:22 PM CDT): - Reducible ventral hernia in left periumbilical region, tender to palpation - Abdomen is firm, patient endorses constipation Plan: - Scheduled bowel regimen: Miralax 17 g BID, Senna 17.2 mg QD + Dulcolax suppository PRN Ventral hernia 07/19/2025 Assessment & Plan (07/21/2025 11:36 AM CDT): - Reducible ventral hernia in left periumbilical region, tender to palpation - Abdomen is firm, patient endorses constipation - Reports no BM since admission, does endorse passing gas - KUB obtained this AM 07/20/25, per radiology read bowel is distended at the ULN, thus no obstruction at this time PLAN: - Hold iron supplementation at this time given worsening constipation - Continue scheduled bowel regimen: Miralax 17 g BID, Senna 17.2 mg QD Assessment & Plan (07/20/2025 11:56 AM CDT): - Reducible ventral hernia in left periumbilical region, tender to palpation - Abdomen is firm, patient endorses constipation - Reports no BM since admission, does endorse passing gas - KUB obtained this AM 07/20/25, per radiology read bowel is distended at the ULN, thus no obstruction at this time PLAN: - Will give tap water enema as well as mag citrate today - Hold iron supplementation at this time given worsening constipation - Continue scheduled bowel regimen: Miralax 17 g BID, Senna 17.2 mg QD Assessment & Plan (07/19/2025 2:22 PM CDT): - Reducible ventral hernia in left periumbilical region, tender to palpation - Abdomen is firm, patient endorses constipation Plan: - Scheduled bowel regimen: Miralax 17 g BID, Senna 17.2 mg QD + Dulcolax suppository PRN Constipation 07/19/2025 Assessment & Plan (07/21/2025 11:36 AM CDT): - Reducible ventral hernia in left periumbilical region, tender to palpation - Abdomen is firm, patient endorses constipation - Reports no BM since admission, does endorse passing gas - KUB obtained this AM 07/20/25, per radiology read bowel is distended at the ULN, thus no obstruction at this time PLAN: - Hold iron supplementation at this time given worsening constipation - Continue scheduled bowel regimen: Miralax 17 g BID, Senna 17.2 mg QD Assessment & Plan (07/20/2025 11:56 AM CDT): - Reducible ventral hernia in left periumbilical region, tender to palpation - Abdomen is firm, patient endorses constipation - Reports no BM since admission, does endorse passing gas - KUB obtained this AM 07/20/25, per radiology read bowel is distended at the ULN, thus no obstruction at this time PLAN: - Will give tap water enema as well as mag citrate today - Hold iron supplementation at this time given worsening constipation - Continue scheduled bowel regimen: Miralax 17 g BID, Senna 17.2 mg QD Assessment & Plan (07/19/2025 2:22 PM CDT): - Reducible ventral hernia in left periumbilical region, tender to palpation - Abdomen is firm, patient endorses constipation Plan: - Scheduled bowel regimen: Miralax 17 g BID, Senna 17.2 mg QD + Dulcolax suppository PRN Tachycardia 07/18/2025 Assessment & Plan (07/18/2025 2:07 PM CDT): - Tachycardia to 110 and diaphoretic on exam - Concern for sepsis iso wounds and port-a-cath Plan: - 1 L LR bolus - Encourage labs if possible 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 07/17/2025 Assessment & Plan (07/21/2025 11:36 AM CDT): - Hx urinary retention and overflow incontinence c/p multiple UTIs - Hx UTI (chart unavailable) in May, reportedly multidrug resistant and treated with ertapenem (duration unknown) - UA from OSH 07/03: + Leuk esterase, 11-20 RBCs, 51-100 WBCs, empiric CTX then cefepime, cultures unknown - Urology consulted at OSH with recs for suprapubic cath - No leukocytosis or sepsis symptoms on arrival - Patient has adequate UOP, bladder scans showing no retention - UOP remains stable, 1450 mL over 07/19 PLAN: - Patient admitted with purewick in place - Continue bladder scans Assessment & Plan (07/20/2025 11:56 AM CDT): - Hx urinary retention and overflow incontinence c/p multiple UTIs - Hx UTI (chart unavailable) in May, reportedly multidrug resistant and treated with ertapenem (duration unknown) - UA from OSH 07/03: + Leuk esterase, 11-20 RBCs, 51-100 WBCs, empiric CTX then cefepime, cultures unknown - Urology consulted at OSH with recs for suprapubic cath - No leukocytosis or sepsis symptoms on arrival - Patient has adequate UOP, bladder scans showing no retention - UOP remains stable, 1450 mL over 07/19 PLAN: - Patient admitted with purewick in place - Continue bladder scans - Strict I/Os - If retaining, will place [place] Assessment & Plan (07/19/2025 2:22 PM CDT): - Hx urinary retention and overflow incontinence c/p multiple UTIs - Hx UTI (chart unavailable) in May, reportedly multidrug resistant and treated with ertapenem (duration unknown) - UA from OSH 07/03: + Leuk esterase, 11-20 RBCs, 51-100 WBCs, empiric CTX then cefepime, cultures unknown - Urology consulted at OSH with recs for suprapubic cath - No leukocytosis or sepsis symptoms on arrival - Patient has adequate UOP, bladder scans showing no retention Plan: - Patient admitted with purewick in place - Continue bladder scans - Strict I/Os - If retaining, will place [place] Assessment & Plan (07/18/2025 2:07 PM CDT): - Hx urinary retention and overflow incontinence c/p multiple UTIs - Hx UTI (chart unavailable) in May, reportedly multidrug resistant and treated with ertapenem (duration unknown) - UA from OSH 07/03: + Leuk esterase, 11-20 RBCs, 51-100 WBCs, empiric CTX then cefepime, cultures unknown - Urology consulted at OSH with recs for suprapubic cath - No leukocytosis or sepsis symptoms on arrival Plan: - Patient admitted with purewick in place - Bladder scans - Strict I/Os - If retaining, will place [place] Assessment & Plan (07/17/2025 8:36 PM CDT): - Hx urinary retention and overflow incontinence c/p multiple UTIs - Hx UTI (chart unavailable) in May, reportedly multidrug resistant and treated with ertapenem (duration unknown) - UA from OSH 07/03: + Leuk esterase, 11-20 RBCs, 51-100 WBCs, empiric CTX then cefepime, cultures unknown - Urology consulted at OSH with recs for suprapubic cath - No leukocytosis or sepsis symptoms on arrival Plan: - DC antibiotics - Patient admitted with purewick in place - Bladder scans - Strict I/Os - If retaining, will place [place] Severe malnutrition 07/17/2025 Assessment & Plan (07/21/2025 11:36 AM CDT): - PEG tube in place, per OSH patient receives combination of PO and enteral feeds - Iron deficiency anemia, possibly 2/2 malnourishment - Speech therapy evaluated patient, recommend keeping NPO PLAN: - Continue tube feeds only for now: Nepro 1.8 at 40 mL/hr, 175 mL saline flush q4h - All meds to be given via enteral tube - Hold iron supplementation given worsening constipation and abdominal distension Assessment & Plan (07/20/2025 11:56 AM CDT): - PEG tube in place, per OSH patient receives combination of PO and enteral feeds - Iron deficiency anemia, possibly 2/2 malnourishment - Speech therapy evaluated patient, recommend keeping NPO PLAN: - Continue tube feeds only for now: Nepro 1.8 at 40 mL/hr, 175 mL saline flush q4h - Consult to nutrition - All meds to be given via enteral tube - Hold iron supplementation given worsening constipation and abdominal distension Assessment & Plan (07/19/2025 2:22 PM CDT): - PEG tube in place, per OSH patient receives combination of PO and enteral feeds - Iron deficiency anemia, possibly 2/2 malnourishment Plan: - Continue tube feeds only for now: Nepro 1.8 at 40 mL/hr, 175 mL saline flush q4h - Consult to nutrition - F/u swallow evaluation - All meds to be given via enteral tube for now Assessment & Plan (07/18/2025 2:07 PM CDT): - PEG tube in place, per OSH patient receives combination of PO and enteral feeds Plan: - Continue tube feeds only for now: Nepro 1.8 at 40 mL/hr, 175 mL saline flush q4h - Consult to speech for swallow study - All meds to be given via enteral tube for now Assessment & Plan (07/17/2025 8:36 PM CDT): - PEG tube in place, per OSH patient receives combination of PO and enteral feeds Plan: - Continue tube feeds only for now: Nepro 1.8 at 40 mL/hr, 175 mL saline flush q4h - Consult to speech for swallow study - All meds to be given via enteral tube for now CKD (chronic kidney disease) stage 2, GFR 60-89 ml/min 07/17/2025 Assessment & Plan (07/21/2025 11:36 AM CDT): - eGFR on admission 61 Assessment & Plan (07/20/2025 7:02 AM CDT): - eGFR on admission 61 Assessment & Plan (07/19/2025 2:22 PM CDT): - eGFR on admission 61 Assessment & Plan (07/18/2025 2:07 PM CDT): - eGFR on admission 61 Assessment & Plan (07/17/2025 8:36 PM CDT): - eGFR on admission 61 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, unspecified 07/17/2025 Assessment & Plan (07/21/2025 11:36 AM CDT): - Unspecified mood disorder, possible schizoaffective disorder PLAN: - Continue home meds per OSH med rec: - Citalopram 30 mg QD - Quetiapine 25 mg QD - Trazodone 50 mg QD Assessment & Plan (07/20/2025 11:56 AM CDT): - Unspecified mood disorder, possible schizoaffective disorder PLAN: - Continue home meds per OSH med rec: - Citalopram 30 mg QD - Quetiapine 25 mg QD - Trazodone 50 mg QD Assessment & Plan (07/19/2025 2:22 PM CDT): - Unspecified mood disorder, possible schizoaffective disorder Plan: - Continue home meds per OSH med rec: - Citalopram 30 mg QD - Quetiapine 25 mg QD - Trazodone 50 mg QD Assessment & Plan (07/18/2025 2:07 PM CDT): - Unspecified mood disorder, possible schizoaffective disorder Plan: - Continue home meds per OSH med rec: - Citalopram 30 mg QD - Quetiapine 25 mg QD - Trazodone 50 mg QD Assessment & Plan (07/17/2025 8:36 PM CDT): - Unspecified mood disorder, possible schizoaffective disorder Plan: - Continue home meds per OSH med rec: - Citalopram 30 mg QD - Quetiapine 25 mg QD - Trazodone 50 mg QD - Per OSH record Muscle spasticity 07/17/2025 Assessment & Plan (07/21/2025 11:36 AM CDT): - Sustained muscle contractions of bilateral upper and lower extremities on physical exam PLAN: - Continue pregabalin 75 mg QD Assessment & Plan (07/20/2025 11:56 AM CDT): - Sustained muscle contractions of bilateral upper and lower extremities on physical exam PLAN: - Continue pregabalin 75 mg QD Assessment & Plan (07/19/2025 2:22 PM CDT): - Sustained muscle contractions of bilateral upper and lower extremities on physical exam Plan: - Continue pregabalin 75 mg QD Assessment & Plan (07/18/2025 2:07 PM CDT): - Sustained muscle contractions of bilateral upper and lower extremities on physical exam Plan: - Continue pregabalin 75 mg QD Assessment & Plan (07/17/2025 8:36 PM CDT): - Sustained muscle contractions of bilateral upper and lower extremities on physical exam Plan: - Continue pregabalin 75 mg QD HTN (hypertension) 07/17/2025 Assessment & Plan (07/21/2025 11:36 AM CDT): - Continue home metoprolol tartrate 5 mg BID Assessment & Plan (07/20/2025 11:56 AM CDT): - Continue home metoprolol tartrate 5 mg BID Assessment & Plan (07/19/2025 2:22 PM CDT): - Continue home metoprolol tartrate 5 mg BID Assessment & Plan (07/18/2025 2:07 PM CDT): - Continue home metoprolol tartrate 5 mg BID Assessment & Plan (07/17/2025 8:36 PM CDT): - Continue home metoprolol tartrate 5 mg BID Pressure ulcers of skin of multiple topographic sites 07/15/2025 Assessment & Plan (07/21/2025 11:36 AM CDT): - Multiple pressure wounds on sacrum and bilateral lower extremities - General surgery consulted at OSH with recs for right AKA due to severity of wounds - Transferred to [facility] at request of state-appointed guardian for second opinion - Vascular surgery consulted, no plans for intervention at this time - Called guardian this AM to discuss patient's care, was unable to reach them; will attempt again throughout the day PLAN: - Vascular surgery signed off, no plans for acute intervention at this time - Continue wound care - Discharge back to facility with wound care instructions Assessment & Plan (07/20/2025 11:56 AM CDT): - Multiple pressure wounds on sacrum and bilateral lower extremities - General surgery consulted at OSH with recs for right AKA due to severity of wounds - Transferred to [facility] at request of state-appointed guardian for second opinion - Vascular surgery consulted, no plans for intervention at this time - Called guardian this AM to discuss patient's care, was unable to reach them; will attempt again throughout the day PLAN: - Vascular surgery following, no plans for acute intervention at this time - Continue wound care - Pain control: Tylenol 325 mg Q6H PRN, hydromorphone 1 mg IV Q4H PRN, oxycodone 5 mg Q8H PRN - Work with case management to locate guardian to discuss further and obtain more history; will attempt to reach them today Assessment & Plan (07/19/2025 2:22 PM CDT): - Multiple pressure wounds on sacrum and bilateral lower extremities - General surgery consulted at OSH with recs for right AKA due to severity of wounds - Transferred to [facility] at request of state-appointed guardian for second opinion Plan: - Vascular surgery following, no imminent need for intervention at this time - Continue wound care - Pain control: Tylenol 325 mg Q6H PRN, hydromorphone 1 mg IV Q4H PRN, oxycodone 5 mg Q8H PRN - Work with case management to locate guardian to discuss further and obtain more history Assessment & Plan (07/18/2025 2:07 PM CDT): - Multiple pressure wounds on sacrum and bilateral lower extremities - General surgery consulted at OSH with recs for right AKA due to severity of wounds - Transferred to [facility] at request of state-appointed guardian for second opinion Plan: - Vascular surgery consulted, appreciate recs. No imminent need for intervention at this time. - Continue wound care - Pain control: Tylenol 325 mg Q6H PRN, hydromorphone 1 mg IV Q4H PRN, oxycodone 5 mg Q8H PRN - Work with case management to locate guardian to discuss further and obtain more history Assessment & Plan (07/17/2025 8:36 PM CDT): - Multiple pressure wounds on sacrum and bilateral lower extremities - General surgery consulted at OSH with recs for right AKA due to severity of wounds - Transferred to [facility] at request of state-appointed guardian for second opinion Plan: - Consult to vascular surgery - Consult to wound care - Pain control: Tylenol 325 mg Q6H PRN, hydromorphone 1 mg IV Q4H PRN, oxycodone 5 mg Q8H PRN - Work with case management to locate guardian to discuss further and obtain more history Septic shock 12/06/2024 Closed fracture of left distal femur 12/06/2024 Bedbound 12/06/2024 Assessment & Plan (07/21/2025 11:36 AM CDT): - Multiple pressure wounds on sacrum and bilateral lower extremities - General surgery consulted at OSH with recs for right AKA due to severity of wounds - Transferred to [facility] at request of state-appointed guardian for second opinion - Vascular surgery consulted, no plans for intervention at this time - Called guardian this AM to discuss patient's care, was unable to reach them; will attempt again throughout the day PLAN: - Vascular surgery signed off, no plans for acute intervention at this time - Continue wound care - Discharge back to facility with wound care instructions Assessment & Plan (07/20/2025 11:56 AM CDT): - Multiple pressure wounds on sacrum and bilateral lower extremities - General surgery consulted at OSH with recs for right AKA due to severity of wounds - Transferred to [facility] at request of state-appointed guardian for second opinion - Vascular surgery consulted, no plans for intervention at this time - Called guardian this AM to discuss patient's care, was unable to reach them; will attempt again throughout the day PLAN: - Vascular surgery following, no plans for acute intervention at this time - Continue wound care - Pain control: Tylenol 325 mg Q6H PRN, hydromorphone 1 mg IV Q4H PRN, oxycodone 5 mg Q8H PRN - Work with case management to locate guardian to discuss further and obtain more history; will attempt to reach them today Assessment & Plan (07/19/2025 2:22 PM CDT): - Multiple pressure wounds on sacrum and bilateral lower extremities - General surgery consulted at OSH with recs for right AKA due to severity of wounds - Transferred to [facility] at request of state-appointed guardian for second opinion Plan: - Vascular surgery following, no imminent need for intervention at this time - Continue wound care - Pain control: Tylenol 325 mg Q6H PRN, hydromorphone 1 mg IV Q4H PRN, oxycodone 5 mg Q8H PRN - Work with case management to locate guardian to discuss further and obtain more history Assessment & Plan (07/18/2025 2:07 PM CDT): - Multiple pressure wounds on sacrum and bilateral lower extremities - General surgery consulted at OSH with recs for right AKA due to severity of wounds - Transferred to [facility] at request of state-appointed guardian for second opinion Plan: - Vascular surgery consulted, appreciate recs. No imminent need for intervention at this time. - Continue wound care - Pain control: Tylenol 325 mg Q6H PRN, hydromorphone 1 mg IV Q4H PRN, oxycodone 5 mg Q8H PRN - Work with case management to locate guardian to discuss further and obtain more history Assessment & Plan (07/17/2025 8:36 PM CDT): - Multiple pressure wounds on sacrum and bilateral lower extremities - General surgery consulted at OSH with recs for right AKA due to severity of wounds - Transferred to [facility] at request of state-appointed guardian for second opinion Plan: - Consult to vascular surgery - Consult to wound care - Pain control: Tylenol 325 mg Q6H PRN, hydromorphone 1 mg IV Q4H PRN, oxycodone 5 mg Q8H PRN - Work with case management to locate guardian to discuss further and obtain more history Closed fracture of lower end of right femur with routine healing 03/11/2020 RADHA (acute kidney injury) MS (multiple sclerosis) Assessment & Plan (07/21/2025 11:36 AM CDT): - Sustained muscle contractions of bilateral upper and lower extremities on physical exam PLAN: - Continue pregabalin 75 mg QD Assessment & Plan (07/20/2025 11:56 AM CDT): - Sustained muscle contractions of bilateral upper and lower extremities on physical exam PLAN: - Continue pregabalin 75 mg QD Assessment & Plan (07/19/2025 2:22 PM CDT): - Sustained muscle contractions of bilateral upper and lower extremities on physical exam Plan: - Continue pregabalin 75 mg QD Assessment & Plan (07/18/2025 2:07 PM CDT): - Sustained muscle contractions of bilateral upper and lower extremities on physical exam Plan: - Continue pregabalin 75 mg QD Assessment & Plan (07/17/2025 8:36 PM CDT): - Sustained muscle contractions of bilateral upper and lower extremities on physical exam Plan: - Continue pregabalin 75 mg QD Pressure ulcer Dry eye syndrome COPD (chronic obstructive pulmonary disease) Anxiety GERD (gastroesophageal reflux disease) Schizoaffective disorder Assessment & Plan (07/21/2025 11:36 AM CDT): - Unspecified mood disorder, possible schizoaffective disorder PLAN: - Continue home meds per OSH med rec: - Citalopram 30 mg QD - Quetiapine 25 mg QD - Trazodone 50 mg QD Assessment & Plan (07/20/2025 11:56 AM CDT): - Unspecified mood disorder, possible schizoaffective disorder PLAN: - Continue home meds per OSH med rec: - Citalopram 30 mg QD - Quetiapine 25 mg QD - Trazodone 50 mg QD Assessment & Plan (07/19/2025 2:22 PM CDT): - Unspecified mood disorder, possible schizoaffective disorder Plan: - Continue home meds per OSH med rec: - Citalopram 30 mg QD - Quetiapine 25 mg QD - Trazodone 50 mg QD Assessment & Plan (07/18/2025 2:07 PM CDT): - Unspecified mood disorder, possible schizoaffective disorder Plan: - Continue home meds per OSH med rec: - Citalopram 30 mg QD - Quetiapine 25 mg QD - Trazodone 50 mg QD Assessment & Plan (07/17/2025 8:36 PM CDT): - Unspecified mood disorder, possible schizoaffective disorder Plan: - Continue home meds per OSH med rec: - Citalopram 30 mg QD - Quetiapine 25 mg QD - Trazodone 50 mg QD - Per OSH record Anemia Assessment & Plan (07/21/2025 11:36 AM CDT): - PEG tube in place, per OSH patient receives combination of PO and enteral feeds - Iron deficiency anemia, possibly 2/2 malnourishment - Speech therapy evaluated patient, recommend keeping NPO PLAN: - Continue tube feeds only for now: Nepro 1.8 at 40 mL/hr, 175 mL saline flush q4h - All meds to be given via enteral tube - Hold iron supplementation given worsening constipation and abdominal distension Assessment & Plan (07/20/2025 11:56 AM CDT): - PEG tube in place, per OSH patient receives combination of PO and enteral feeds - Iron deficiency anemia, possibly 2/2 malnourishment - Speech therapy evaluated patient, recommend keeping NPO PLAN: - Continue tube feeds only for now: Nepro 1.8 at 40 mL/hr, 175 mL saline flush q4h - Consult to nutrition - All meds to be given via enteral tube - Hold iron supplementation given worsening constipation and abdominal distension Assessment & Plan (07/19/2025 2:22 PM CDT): - PEG tube in place, per OSH patient receives combination of PO and enteral feeds - Iron deficiency anemia, possibly 2/2 malnourishment Plan: - Continue tube feeds only for now: Nepro 1.8 at 40 mL/hr, 175 mL saline flush q4h - Consult to nutrition - F/u swallow evaluation - All meds to be given via enteral tube for now CKD (chronic kidney disease), stage III Dementia without behavioral disturbance Depression Dysphagia Assessment & Plan (07/21/2025 11:36 AM CDT): - PEG tube in place, per OSH patient receives combination of PO and enteral feeds - Iron deficiency anemia, possibly 2/2 malnourishment - Speech therapy evaluated patient, recommend keeping NPO PLAN: - Continue tube feeds only for now: Nepro 1.8 at 40 mL/hr, 175 mL saline flush q4h - All meds to be given via enteral tube - Hold iron supplementation given worsening constipation and abdominal distension Assessment & Plan (07/20/2025 11:56 AM CDT): - PEG tube in place, per OSH patient receives combination of PO and enteral feeds - Iron deficiency anemia, possibly 2/2 malnourishment - Speech therapy evaluated patient, recommend keeping NPO PLAN: - Continue tube feeds only for now: Nepro 1.8 at 40 mL/hr, 175 mL saline flush q4h - Consult to nutrition - All meds to be given via enteral tube - Hold iron supplementation given worsening constipation and abdominal distension Assessment & Plan (07/19/2025 2:22 PM CDT): - PEG tube in place, per OSH patient receives combination of PO and enteral feeds - Iron deficiency anemia, possibly 2/2 malnourishment Plan: - Continue tube feeds only for now: Nepro 1.8 at 40 mL/hr, 175 mL saline flush q4h - Consult to nutrition - F/u swallow evaluation - All meds to be given via enteral tube for now Assessment & Plan (07/18/2025 2:07 PM CDT): - PEG tube in place, per OSH patient receives combination of PO and enteral feeds Plan: - Continue tube feeds only for now: Nepro 1.8 at 40 mL/hr, 175 mL saline flush q4h - Consult to speech for swallow study - All meds to be given via enteral tube for now Assessment & Plan (07/17/2025 8:36 PM CDT): - PEG tube in place, per OSH patient receives combination of PO and enteral feeds Plan: - Continue tube feeds only for now: Nepro 1.8 at 40 mL/hr, 175 mL saline flush q4h - Consult to speech for swallow study - All meds to be given via enteral tube for now Gastrostomy tube in place Assessment & Plan (07/21/2025 11:36 AM CDT): - PEG tube in place, per OSH patient receives combination of PO and enteral feeds - Iron deficiency anemia, possibly 2/2 malnourishment - Speech therapy evaluated patient, recommend keeping NPO PLAN: - Continue tube feeds only for now: Nepro 1.8 at 40 mL/hr, 175 mL saline flush q4h - All meds to be given via enteral tube - Hold iron supplementation given worsening constipation and abdominal distension Assessment & Plan (07/20/2025 11:56 AM CDT): - PEG tube in place, per OSH patient receives combination of PO and enteral feeds - Iron deficiency anemia, possibly 2/2 malnourishment - Speech therapy evaluated patient, recommend keeping NPO PLAN: - Continue tube feeds only for now: Nepro 1.8 at 40 mL/hr, 175 mL saline flush q4h - Consult to nutrition - All meds to be given via enteral tube - Hold iron supplementation given worsening constipation and abdominal distension Assessment & Plan (07/19/2025 2:22 PM CDT): - PEG tube in place, per OSH patient receives combination of PO and enteral feeds - Iron deficiency anemia, possibly 2/2 malnourishment Plan: - Continue tube feeds only for now: Nepro 1.8 at 40 mL/hr, 175 mL saline flush q4h - Consult to nutrition - F/u swallow evaluation - All meds to be given via enteral tube for now Assessment & Plan (07/18/2025 2:07 PM CDT): - PEG tube in place, per OSH patient receives combination of PO and enteral feeds Plan: - Continue tube feeds only for now: Nepro 1.8 at 40 mL/hr, 175 mL saline flush q4h - Consult to speech for swallow study - All meds to be given via enteral tube for now Assessment & Plan (07/17/2025 8:36 PM CDT): - PEG tube in place, per OSH patient receives combination of PO and enteral feeds Plan: - Continue tube feeds only for now: Nepro 1.8 at 40 mL/hr, 175 mL saline flush q4h - Consult to speech for swallow study - All meds to be given via enteral tube for now History of recurrent UTIs Assessment & Plan (07/21/2025 11:36 AM CDT): - Hx urinary retention and overflow incontinence c/p multiple UTIs - Hx UTI (chart unavailable) in May, reportedly multidrug resistant and treated with ertapenem (duration unknown) - UA from OSH 07/03: + Leuk esterase, 11-20 RBCs, 51-100 WBCs, empiric CTX then cefepime, cultures unknown - Urology consulted at OSH with recs for suprapubic cath - No leukocytosis or sepsis symptoms on arrival - Patient has adequate UOP, bladder scans showing no retention - UOP remains stable, 1450 mL over 07/19 PLAN: - Patient admitted with purewick in place - Continue bladder scans Assessment & Plan (07/20/2025 11:56 AM CDT): - Hx urinary retention and overflow incontinence c/p multiple UTIs - Hx UTI (chart unavailable) in May, reportedly multidrug resistant and treated with ertapenem (duration unknown) - UA from OSH 07/03: + Leuk esterase, 11-20 RBCs, 51-100 WBCs, empiric CTX then cefepime, cultures unknown - Urology consulted at OSH with recs for suprapubic cath - No leukocytosis or sepsis symptoms on arrival - Patient has adequate UOP, bladder scans showing no retention - UOP remains stable, 1450 mL over 07/19 PLAN: - Patient admitted with purewick in place - Continue bladder scans - Strict I/Os - If retaining, will place [place] Assessment & Plan (07/19/2025 2:22 PM CDT): - Hx urinary retention and overflow incontinence c/p multiple UTIs - Hx UTI (chart unavailable) in May, reportedly multidrug resistant and treated with ertapenem (duration unknown) - UA from OSH 07/03: + Leuk esterase, 11-20 RBCs, 51-100 WBCs, empiric CTX then cefepime, cultures unknown - Urology consulted at OSH with recs for suprapubic cath - No leukocytosis or sepsis symptoms on arrival - Patient has adequate UOP, bladder scans showing no retention Plan: - Patient admitted with purewick in place - Continue bladder scans - Strict I/Os - If retaining, will place [place] Assessment & Plan (07/18/2025 2:07 PM CDT): - Hx urinary retention and overflow incontinence c/p multiple UTIs - Hx UTI (chart unavailable) in May, reportedly multidrug resistant and treated with ertapenem (duration unknown) - UA from OSH 07/03: + Leuk esterase, 11-20 RBCs, 51-100 WBCs, empiric CTX then cefepime, cultures unknown - Urology consulted at OSH with recs for suprapubic cath - No leukocytosis or sepsis symptoms on arrival Plan: - Patient admitted with purewick in place - Bladder scans - Strict I/Os - If retaining, will place [place] Assessment & Plan (07/17/2025 8:36 PM CDT): - Hx urinary retention and overflow incontinence c/p multiple UTIs - Hx UTI (chart unavailable) in May, reportedly multidrug resistant and treated with ertapenem (duration unknown) - UA from OSH 07/03: + Leuk esterase, 11-20 RBCs, 51-100 WBCs, empiric CTX then cefepime, cultures unknown - Urology consulted at OSH with recs for suprapubic cath - No leukocytosis or sepsis symptoms on arrival Plan: - DC antibiotics - Patient admitted with purewick in place - Bladder scans - Strict I/Os - If retaining, will place [place] Other pulmonary embolism without acute cor pulmo nale Assessment & Plan (07/21/2025 11:36 AM CDT): - Per OSH records PE in 2014 - Previously on Pradaxa which was held at OSH for possible surgical intervention Assessment & Plan (07/20/2025 11:56 AM CDT): - Per OSH records PE in 2014 - Previously on Pradaxa which was held at OSH for possible surgical intervention Assessment & Plan (07/19/2025 2:22 PM CDT): - Per OSH records PE in 2014 - Previously on Pradaxa which was held at OSH for possible surgical intervention Assessment & Plan (07/18/2025 2:07 PM CDT): - Per OSH records PE in 2015 - Previously on Pradaxa which was held at OSH for possible surgical intervention Assessment & Plan (07/17/2025 8:36 PM CDT): - Per OSH records PE in 2015 - Previously on Pradaxa which was held at OSH for possible surgical intervention Port-A-Cath in place Assessment & Plan (07/21/2025 11:36 AM CDT): - In place on right chest - Reason for cath not mentioned in OSH chart PLAN: - Nursing notification placed not to use port-a-cath Assessment & Plan (07/20/2025 11:56 AM CDT): - In place on right chest - Reason for cath not mentioned in OSH chart PLAN: - Nursing notification placed not to use port-a-cath - Will attempt to reach guardian and obtain more history regarding port placement Assessment & Plan (07/19/2025 2:22 PM CDT): - In place on right chest - Reason for cath not mentioned in OSH chart Plan: - Nursing notification placed not to use port-a-cath Assessment & Plan (07/18/2025 2:07 PM CDT): - In place on right chest - Reason for cath not mentioned in OSH chart Plan: - Nursing notification placed not to use port-a-cath Assessment & Plan (07/17/2025 8:36 PM CDT): - In place on right chest - Reason for cath not mentioned in OSH chart Plan: - Nursing notification placed not to use port-a-cath Quadriplegia Assessment & Plan (07/21/2025 11:36 AM CDT): - Multiple pressure wounds on sacrum and bilateral lower extremities - General surgery consulted at OSH with recs for right AKA due to severity of wounds - Transferred to [facility] at request of state-appointed guardian for second opinion - Vascular surgery consulted, no plans for intervention at this time - Called guardian this AM to discuss patient's care, was unable to reach them; will attempt again throughout the day PLAN: - Vascular surgery signed off, no plans for acute intervention at this time - Continue wound care - Discharge back to facility with wound care instructions Assessment & Plan (07/20/2025 11:56 AM CDT): - Multiple pressure wounds on sacrum and bilateral lower extremities - General surgery consulted at OSH with recs for right AKA due to severity of wounds - Transferred to [facility] at request of state-appointed guardian for second opinion - Vascular surgery consulted, no plans for intervention at this time - Called guardian this AM to discuss patient's care, was unable to reach them; will attempt again throughout the day PLAN: - Vascular surgery following, no plans for acute intervention at this time - Continue wound care - Pain control: Tylenol 325 mg Q6H PRN, hydromorphone 1 mg IV Q4H PRN, oxycodone 5 mg Q8H PRN - Work with case management to locate guardian to discuss further and obtain more history; will attempt to reach them today Assessment & Plan (07/19/2025 2:22 PM CDT): - Multiple pressure wounds on sacrum and bilateral lower extremities - General surgery consulted at OSH with recs for right AKA due to severity of wounds - Transferred to [facility] at request of state-appointed guardian for second opinion Plan: - Vascular surgery following, no imminent need for intervention at this time - Continue wound care - Pain control: Tylenol 325 mg Q6H PRN, hydromorphone 1 mg IV Q4H PRN, oxycodone 5 mg Q8H PRN - Work with case management to locate guardian to discuss further and obtain more history Assessment & Plan (07/18/2025 2:07 PM CDT): - Multiple pressure wounds on sacrum and bilateral lower extremities - General surgery consulted at OSH with recs for right AKA due to severity of wounds - Transferred to [facility] at request of state-appointed guardian for second opinion Plan: - Vascular surgery consulted, appreciate recs. No imminent need for intervention at this time. - Continue wound care - Pain control: Tylenol 325 mg Q6H PRN, hydromorphone 1 mg IV Q4H PRN, oxycodone 5 mg Q8H PRN - Work with case management to locate guardian to discuss further and obtain more history Assessment & Plan (07/17/2025 8:36 PM CDT): - Multiple pressure wounds on sacrum and bilateral lower extremities - General surgery consulted at OSH with recs for right AKA due to severity of wounds - Transferred to [facility] at request of state-appointed guardian for second opinion Plan: - Consult to vascular surgery - Consult to wound care - Pain control: Tylenol 325 mg Q6H PRN, hydromorphone 1 mg IV Q4H PRN, oxycodone 5 mg Q8H PRN - Work with case management to locate guardian to discuss further and obtain more history Urinary retention Assessment & Plan (07/21/2025 11:36 AM CDT): - Hx urinary retention and overflow incontinence c/p multiple UTIs - Hx UTI (chart unavailable) in May, reportedly multidrug resistant and treated with ertapenem (duration unknown) - UA from OSH 07/03: + Leuk esterase, 11-20 RBCs, 51-100 WBCs, empiric CTX then cefepime, cultures unknown - Urology consulted at OSH with recs for suprapubic cath - No leukocytosis or sepsis symptoms on arrival - Patient has adequate UOP, bladder scans showing no retention - UOP remains stable, 1450 mL over 07/19 PLAN: - Patient admitted with purewick in place - Continue bladder scans Assessment & Plan (07/20/2025 11:56 AM CDT): - Hx urinary retention and overflow incontinence c/p multiple UTIs - Hx UTI (chart unavailable) in May, reportedly multidrug resistant and treated with ertapenem (duration unknown) - UA from OSH 07/03: + Leuk esterase, 11-20 RBCs, 51-100 WBCs, empiric CTX then cefepime, cultures unknown - Urology consulted at OSH with recs for suprapubic cath - No leukocytosis or sepsis symptoms on arrival - Patient has adequate UOP, bladder scans showing no retention - UOP remains stable, 1450 mL over 07/19 PLAN: - Patient admitted with purewick in place - Continue bladder scans - Strict I/Os - If retaining, will place [place] Assessment & Plan (07/19/2025 2:22 PM CDT): - Hx urinary retention and overflow incontinence c/p multiple UTIs - Hx UTI (chart unavailable) in May, reportedly multidrug resistant and treated with ertapenem (duration unknown) - UA from OSH 07/03: + Leuk esterase, 11-20 RBCs, 51-100 WBCs, empiric CTX then cefepime, cultures unknown - Urology consulted at OSH with recs for suprapubic cath - No leukocytosis or sepsis symptoms on arrival - Patient has adequate UOP, bladder scans showing no retention Plan: - Patient admitted with purewick in place - Continue bladder scans - Strict I/Os - If retaining, will place [place] Assessment & Plan (07/18/2025 2:07 PM CDT): - Hx urinary retention and overflow incontinence c/p multiple UTIs - Hx UTI (chart unavailable) in May, reportedly multidrug resistant and treated with ertapenem (duration unknown) - UA from OSH 07/03: + Leuk esterase, 11-20 RBCs, 51-100 WBCs, empiric CTX then cefepime, cultures unknown - Urology consulted at OSH with recs for suprapubic cath - No leukocytosis or sepsis symptoms on arrival Plan: - Patient admitted with purewick in place - Bladder scans - Strict I/Os - If retaining, will place [place] Assessment & Plan (07/17/2025 8:36 PM CDT): - Hx urinary retention and overflow incontinence c/p multiple UTIs - Hx UTI (chart unavailable) in May, reportedly multidrug resistant and treated with ertapenem (duration unknown) - UA from OSH 07/03: + Leuk esterase, 11-20 RBCs, 51-100 WBCs, empiric CTX then cefepime, cultures unknown - Urology consulted at OSH with recs for suprapubic cath - No leukocytosis or sepsis symptoms on arrival Plan: - DC antibiotics - Patient admitted with purewick in place - Bladder scans - Strict I/Os - If retaining, will place [place] Overactive bladder Encounters Date Type Department Care Team Description 07/17/2025 6:12 AM CDT - 07/21/2025 1:55 PM CDT Hospital Encounter [facility] 6S ACUTE [address] [place] [address] Jhonny Angeles MD Rotramel, Hayden, MD Buckhold, Lionel Simpson III, MD Internal Medicine Discharge Disposition: Assisted or Supportive Care 07/15/2025 Telephone [facility] PHYS INTERNAL MED [address] [place] [address] Jhonny Angeles MD General (OSH Transfer) from Last 3 Months Immunizations Immunization Administration Dates Next Due Covid Pfizer primary monoval ent 12+ yr 0.3mL Purple cap 11/03/2020,10/13/2020 Family History Medical History Relation Name Comments Hypertension Father Hypertension Mother Relation Name Status Comments Father Mother Alive Social History Tobacco Use Types Packs/Day Years Used Date Smoking Tobacco: Former Cigarettes Smokeless Tobacco: Never Alcohol Use Standard Drinks/Week Comments Never 0 (1 standard drink = 0.6 oz pur e alcohol) Overall Financial Resource Strain (CARDIA) Answe r Date Recorded How hard is it for you to pa y for the very basics like food, housing, medical care, and heating? Patient unable to answer 12/07/2024 [facility] [place] [facility] Occupat ional [facility] - Occupational Stress [...] any time in the past 12 m [facility], were you homeless or living in a penitentiary (including now)? Patient unable to answer 12/07/2024 [facility] Answer Date Recorded Q1: How often do you have a drink containing alcohol? Never 07/17/2025 Q2: How many drinks containi ng alcohol do you have on a typical day when you are drinking? Patient does not drink Q3: How often do you have si x or more drinks on one occasion? 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 Interventions: Medical Devices Implanted Type Area Independent Freight Agent Device Identifier Shelf Expiration Date Model / Serial / Lot Versanail [place] Femoral Nail 13mmx 36cm Implanted:Qty: 1 on 03/15/2020 by Raymon Blakely DO at [facility] Right: Femur 08/04/2027 [id number] / / [id number] Screw 4.5mm 46mm Oblq Ft Slf-Tap Sld 2 Implanted:Qty: 1 on 03/15/2020 by Raymon Blakely, at [facility] Right: Femur [employer] [id number] / / Screw 4.5mm 50mm Ft Sld Slf-Tap Hip Fem Implanted:Qty: 1 on 03/15/2020 by Raymon Blakely DO at [facility] Right: Femur [employer] [id number] / / Screw 6.5mm 60mm Ft Sld Slf-Tap Drv End Implanted:Qty: 1 on 03/15/2020 by Raymon Blakely DO at [facility] Right: Femur [employer] [id number] / / Screw 6.5mm 85mm Ft Sld Slf-Tap Drv End Implanted:Qty: 1 on 03/15/2020 by Raymon Blakely DO at [facility] Right: Femur [employer] [id number] / / 12.2mm One Step Reamer Implanted:Qty: 1 on 03/15/2020 by Raymon Blakely DO at [facility] Right: Femur [employer] 03/03/2030 [id number] / / [id number] Description:Not an implant 6.5 Solidlock 50mm Implanted:Qty: 1 on 03/15/2020 by Raymon Blakely DO at [facility] Right: Femur [employer] [id number] / / Advanced Locking Screw Implanted:Qty: 1 on 12/12/2024 by Regina Vicente MD at [facility] Left: Knee 06/30/2034 [id number] / / [id number] Advanced Locking Screw Implanted:Qty: 1 on 12/12/2024 by Regina Vicente MD at [facility] Left: Knee 09/30/2029 [id number] / / [id number] Advanced Locking Screw Implanted:Qty: 1 on 12/12/2024 by Regina Vicente MD at [facility] Left: Knee 04/30/2034 [id number] / / [id number] Locking Screw Implanted:Qty: 1 on 12/12/2024 by Regina Vicente MD at [facility] Left: Knee 04/30/2034 [id number] / / [id number] Locking Screw Implanted:Qty: 1 on 12/12/2024 by Regina Vicente MD at [facility] Left: Knee 08/30/2033 [id number] / / [id number] Femoral Nail Retrograde Implanted:Qty: 1 on 12/12/2024 by Regina Vicente MD at [facility] Left: Knee 09/30/2032 [id number] / / [id number] Explanted Type Area Independent Freight Agent Device Identifier Shelf Expiration Date Model / Serial / Lot Screw 4.5mm 42mm Oblq Ft Slf-Tap Sld 2 Explanted:Qty: 1 on 03/15/2020 at [facility] Right: Femur [employer] [id number] / / Procedures Procedure Name Priority Date/Time Associated Diagnosis Comments XR ABDOMEN KUB PORTABLE STAT 07/20/2025 10:14 AM CDT Abdominal pain, unspecified abdominal location RENAL FUNCTION PANEL AM Draw 07/20/2025 6:43 AM CDT MAGNESIUM BLOOD Routine 07/20/2025 6:43 AM CDT CBC W/O DIFFERENTIAL AM Draw 07/20/2025 6:43 AM CDT MAGNESIUM BLOOD Routine 07/19/2025 3:52 AM CDT RENAL FUNCTION PANEL AM Draw 07/19/2025 3:52 AM CDT CBC W/O DIFFERENTIAL AM Draw 07/19/2025 3:52 AM CDT XR CHEST 1VW PORTABLE STAT 07/17/2025 9:21 AM CDT Pressure ulcers of skin of multiple topographic sites CBC W AUTO DIFFERENTIAL STAT 07/17/2025 6:33 AM CDT PT-INR STAT 07/17/2025 6:33 AM CDT COMPREHENSIVE METABOLIC PANEL STAT 07/17/2025 6:33 AM CDT HIV-1 HIV-2 ANTIGEN/ANTIBODY Routine 03/19/2020 7:44 AM CDT from Last 3 Months or Most Recently Relevant to Health Maintenance Results * XR Abdomen Kub Portable (07/20/2025 10:14 AM CDT) Anatomical Region Laterality Modality Abdomen Digital Radiogra phy 07/20/2025 1:07 PM CDT Impressions 07/20/2025 3:03 PM CDT IMPRESSION: Borderline dilation of the large bowel and cecum. Report dictated by Maxwell Jackson Dr, (radiology nurse). > Dictated by Addressing Machine Operator I, Megan Cristobal MD have personally reviewed and interpreted this examination/study. > Interpreting Provider: Megan Cristobal MD on 07/20/2025 3:03 PM Narrative 07/20/2025 3:03 PM CDT PROCEDURE: XR ABDOMEN KUB PORTABLE, DATE/TIME OF EXAM: 07/20/2025 10:14 AM, LOCATION [facility] INDICATION: R10.9: Abdominal pain, unspecified abdominal location ADDITIONAL CLINICAL INFORMATION: Ordering Provider Reason For Exam: Constipation Technologist Note: None Additional: None COMPARISON: None. FINDINGS: There is borderline dilation of the large bowel measuring approximately 6.2 cm. The cecum measures approximately 9 cm.. No pneumoperitoneum or pathological calcification is seen. Advanced degenerative changes of the bilateral hip joints. Partially visualized internal fixation of the proximal bilateral femur. The visible osseous structures are intact. The lung bases are clear. Procedure Note Megan Cristobal MD - 07/20/2025 PROCEDURE: XR ABDOMEN KUB PORTABLE, DATE/TIME OF EXAM: 0:14 AM, LOCATION [facility] INDICATION: R10.9: Abdominal pain, unspecified abdominal location ADDITIONAL CLINICAL INFORMATION: Ordering Provider Reason For Exam: Constipation Technologist Note: None Additional: None COMPARISON: None. FINDINGS: There is borderline dilation of the large bowel measuring approximately6.2 cm. The cecum measures approximately 9 cm.. No pneumoperitoneum or pathological calcification is seen. Advanced degenerative changes of the bilateral hip joints. Partially visualized internal fixation of the proximal bilateral femur. The visible osseous structures are intact. The lung bases are clear. IMPRESSION: Borderline dilation of the large bowel and cecum. Report dictated by Maxwell Jackson Dr, (radiology nurse). > Dictated by Addressing Machine Operator I, Megan Cristobal MD have personally reviewed and interpreted this examination/study. > Interpreting Provider: Megan Cristobal MD on 07/20/2025 3:03 PM Lionel Prajapati III, MD DIAGNOSTIC IMAGING ORDER DMITRY Final Result * (ABNORMAL) CBC W/O DIFFERENTIAL (07/20/2025 6:43 AM CDT) Only the most recent of2 resultswithin the time period is included. WBC 9.8 4.0 - 10.7 x10E9/L 07/20/2025 7:42 AM [facility] RBC Count 3.12(L) 3.90 - 5.20 x10E12/L 07/20/2025 7:42 AM [facility] Hemoglobin 8.5(L) 11.9 - 15.8 g/dL 07/20/2025 7:42 AM [facility] Hematocrit 28.4(L) 34.8 - 46.1 % 07/20/2025 7:42 AM [facility] MCV 91.0 80.0 - 98.0 fL 07/20/2025 7:42 AM [facility] MCH 27.2 26.7 - 33.6 pg 07/20/2025 7:42 AM [facility] MCHC 29.9(L) 31.7 - 36.3 g/dL 07/20/2025 7:42 AM [facility] RDW-CV 17.2(H) 11.3 - 14.8 % 07/20/2025 7:42 AM [facility] Platelet Count 311 150 - 420 x10E9/L 07/20/2025 7:42 AM [facility] MPV 10.3 7.8 - 11.4 fL 07/20/2025 7:42 AM [facility] Blood BLOOD SPECIMEN / Unknown Lab Venipuncture / Unknown 07/20/2025 6:43 AM CDT 07/20/2025 7:21 AM CDT us Jhonny Quiroz MD LAB - HEMATOLOGY ORDERAB LES Final Result [facility] [address] [place] [address], [facility] [phone] * (ABNORMAL) RENAL FUNCTION PANEL (07/20/2025 6:43 AM CDT) Only the most recent of2 resultswithin the time period is included. BUN 46(H) 7 - 26 mg/dL 07/20/2025 1:49 PM [facility] Creatinine 1.07(H) 0.56 - 0.96 mg/dL 07/20/2025 1:49 PM [facility] Sodium 137 136 - 145 mmol/L 07/20/2025 1:49 PM [facility] Potassium 5.4(H) 3.5 - 4.5 mmol/L 07/20/2025 1:49 PM [facility] Chloride 109(H) 98 - 107 mmol/L 07/20/2025 1:49 PM [facility] CO2 22 22 - 29 mmol/L 07/20/2025 1:49 PM [facility] Glucose 96 70 - 99 mg/dL 07/20/2025 1:49 PM [facility] Albumin 2.4(L) 3.4 - 5.0 g/dL 07/20/2025 1:49 PM [facility] Calcium 8.4 8.4 - 10.2 mg/dL 07/20/2025 1:49 PM [facility] Phosphorus 3.8 2.9 - 5.1 mg/dL 07/20/2025 1:49 PM [facility] Anion Gap 6 6 - 16 07/20/2025 1:49 PM [facility] BUN/Creatinine Ratio 43(H) 7 - 23 07/20/2025 1:49 PM [facility] Osmolality Calculated 296(H) 275 - 295 mOsm/kg 07/20/2025 1:49 PM CDT [facility] eGFR by CKD-EPI 60(L) >=90 mL/min/1.7 3 m2 07/20/2025 1:49 PM CDT [facility] Comment:Estimated Glomerular Filtration Rate (eGFR) calculated using the CKD-EPI Creatinine Equation (2020), per the National Kidney Foundation and [place] [employer] Neph[employer] recommendations. Blood BLOOD SPECIMEN / Unknown Lab Venipuncture / Unknown 07/20/2025 6:43 AM CDT 07/20/2025 7:20 AM CDT Lionel Prajapati III, MD LAB - CHEMISTRY ORDERABL ES Final Result [address] [address], [place] [phone] * MAGNESIUM BLOOD (07/20/2025 6:43 AM CDT) Only the most recent of2 resultswithin the time period is included. Magnesium 2.1 1.6 - 2.6 mg/dL 07/20/2025 7:49 AM CDT [facility] Blood BLOOD SPECIMEN / Unknown Lab Venipuncture / Unknown 07/20/2025 6:43 AM CDT 07/20/2025 7:20 AM CDT us Jhonny Quiroz MD LAB - CHEMISTRY ORDERABL ES Final Result [address] [address], [place] [phone] * XR Chest 1Vw Portable (07/17/2025 9:21 AM CDT) Anatomical Region Laterality Modality Chest Digital Radiogra phy 07/17/2025 3:02 PM CDT Narrative 07/17/2025 4:32 PM CDT PROCEDURE: XR CHEST 1VW PORTABLE, DATE/TIME OF EXAM: 07/17/2025 9:21 AM, LOCATION [facility] INDICATION: L89.90: Pressure ulcers of skin of multiple topographic sites ADDITIONAL CLINICAL INFORMATION: Ordering Provider Reason For Exam: portacath placement Technologist Note: Additional: COMPARISON: Chest x-ray from 03/15/2020 TECHNIQUE: Frontal radiograph of the chest. FINDINGS/IMPRESSION: *A left internal jugular approach Port-A-Cath terminates in the Superior Vena Cava. There is a needle within the access point of the port. Patient is rotated towards the right. Low lung volumes with bronchial vascular crowding. There is elevation of the right hemidiaphragm. Small right-sided pleural effusion. Mild interstitial prominence may represent mild pulmonary edema. No pneumothorax is visible. The cardiac silhouette is normal. The aorta is tortuous. Bones appear demineralized. Report dictated by Gabi Hernandez MD, (Addressing Machine Operator). > Dictated by Addressing Machine Operator I, Eduarda Thomas MD have personally reviewed and interpreted this examination/study. > Interpreting Provider: Eduarda Thomas MD on 07/17/2025 4:32 PM Procedure Note Eduarda Thomas MD - 07/17/2025 PROCEDURE: XR CHEST 1VW PORTABLE, DATE/TIME OF EXAM: 07/17/2025 9:21AM, LOCATION [facility] INDICATION: L89.90: Pressure ulcers of skin of multiple topographic sites ADDITIONAL CLINICAL INFORMATION: Ordering Provider Reason For Exam: portacath placement Technologist Note: Additional: COMPARISON: Chest x-ray from 03/15/2020 TECHNIQUE: Frontal radiograph of the chest. FINDINGS/IMPRESSION: *A left internal jugular approach Port-A-Cath terminates in the Superior Vena Cava. There is a needle within the access point of the port. Patient is rotated towards the right. Low lung volumes with bronchial vascular crowding. There is elevation of the right hemidiaphragm. Small right-sided pleural effusion. Mild interstitial prominence may represent mild pulmonary edema. No pneumothorax is visible. The cardiac silhouetteis normal. The aorta is tortuous. Bones appear demineralized. Report dictated by Gabi Hernandez MD, (Addressing Machine Operator). > Dictated by Addressing Machine Operator Eduarda José MD have personally reviewed and interpreted this examination/study. > Interpreting Provider: Eduarda Thomas MD on 07/17/2025 4:32 PM us Jhonny Quiroz MD DIAGNOSTIC IMAGING ORDER DMITRY Final Result * (ABNORMAL) PT-INR (07/17/2025 6:33 AM CDT) [facility] PT 15.0(H) 12.1 - 14.8 Seconds 07/17/2025 8:21 AM [facility] INR 1.2 See Comment 07/17/2025 8:21 AM [facility] Comment:The suggested therap eutic range for standard coumadin (warfarin) therapy is an INR of 2.0-3.0. For high-risk patients (Mechanical Mitral Valve Prosthesis, etc.), the suggested prophylactic therapeutic range is an INR of 2.5-3.5. Blood BLOOD SPECIMEN / Unknown Lab Venipuncture / Unknown 07/17/2025 6:33 AM CDT 07/17/2025 7:26 AM CDT us Jhonny Quiroz MD LAB - COAGULATION ORDERA BLES Final Result Performing Organization Address City/State/[facility] Co de Phone Number [facility] [address] [place] [address], [facility] [phone] * (ABNORMAL) CBC W AUTO DIFFERENTIAL (07/17/2025 6:33 AM CDT) [facility] WBC 8.9 4.0 - 10.7 x10E9/L 07/17/2025 7:37 AM [facility] RBC Count 3.13(L) 3.90 - 5.20 x10E12/L 07/17/2025 7:37 AM [facility] Hemoglobin 8.6(L) 11.9 - 15.8 g/dL 07/17/2025 7:37 AM [facility] Hematocrit 27.3(L) 34.8 - 46.1 % 07/17/2025 7:37 AM [facility] MCV 87.2 80.0 - 98.0 fL 07/17/2025 7:37 AM [facility] MCH 27.5 26.7 - 33.6 pg 07/17/2025 7:37 AM [facility] MCHC 31.5(L) 31.7 - 36.3 g/dL 07/17/2025 7:37 AM [facility] RDW-CV 15.9(H) 11.3 - 14.8 % 07/17/2025 7:37 AM [facility] Platelet Count 301 150 - 420 x10E9/L 07/17/2025 7:37 AM [facility] MPV 10.8 7.8 - 11.4 fL 07/17/2025 7:37 AM [facility] Neutrophil % 73.1 41.0 - 74.0 % 07/17/2025 7:37 AM [facility] Lymphocyte % 16.2(L) 17.0 - 47.0 % 07/17/2025 7:37 AM [facility] Monocyte % 6.4 3.0 - 11.0 % 07/17/2025 7:37 AM [facility] Eosinophil % 3.7 0.0 - 7.0 % 07/17/2025 7:37 AM [facility] Basophil % 0.3 0.0 - 1.6 % 07/17/2025 7:37 AM [facility] Immature Granulocytes % 0.3 0.0 - 1.0 % 07/17/2025 7:37 AM [facility] Neutrophil Absolute 6.46 1.60 - 7.50 x10E9/L 07/17/2025 7:37 AM [facility] Lymphocyte Absolute 1.43 1.00 - 4.40 x10E9/L 07/17/2025 7:37 AM [facility] Monocyte Absolute 0.57 0.15 - 1.00 x10E9/L 07/17/2025 7:37 AM [facility] Eosinophil Absolute 0.33 0.00 - 0.60 x10E9/L 07/17/2025 7:37 AM [facility] Basophil Absolute 0.03 0.00 - 0.13 x10E9/L 07/17/2025 7:37 AM [facility] Blood BLOOD SPECIMEN / Unknown Lab Venipuncture / Unknown 07/17/2025 6:33 AM CDT 07/17/2025 7:26 AM CDT us Jhonny Quiroz MD LAB - HEMATOLOGY ORDERAB LES Final Result [facility] [address] [place] [address], [facility] [phone] * (ABNORMAL) COMPREHENSIVE METABOLIC PANEL (07/17/2025 6:33 AM CDT) BUN 45(H) 7 - 26 mg/dL 07/17/2025 8:21 AM [facility] Creatinine 1.05(H) 0.56 - 0.96 mg/dL 07/17/2025 8:21 AM [facility] Sodium 134(L) 136 - 145 mmol/L 07/17/2025 8:21 AM [facility] Potassium 4.1 3.5 - 4.5 mmol/L 07/17/2025 8:21 AM [facility] Chloride 105 98 - 107 mmol/L 07/17/2025 8:21 AM [facility] CO2 21(L) 22 - 29 mmol/L 07/17/2025 8:21 AM [facility] Glucose 92 70 - 99 mg/dL 07/17/2025 8:21 AM [facility] Calcium 9.2 8.4 - 10.2 mg/dL 07/17/2025 8:21 AM [facility] Protein Total 8.3 6.0 - 8.3 g/dL 07/17/2025 8:21 AM [facility] Albumin 2.4(L) 3.4 - 5.0 g/dL 07/17/2025 8:21 AM [facility] Bilirubin Total 0.2 0.2 - 1.2 mg/dL 07/17/2025 8:21 AM [facility] Alkaline Phosphatase 187(H) 40 - 150 U/L 07/17/2025 8:21 AM [facility] ALT 20 5 - 55 U/L 07/17/2025 8:21 AM [facility] AST 22 5 - 34 U/L 07/17/2025 8:21 AM [facility] Anion Gap 8 6 - 16 07/17/2025 8:21 AM [facility] BUN/Creatinine Ratio 43(H) 7 - 23 07/17/2025 8:21 AM [facility] Osmolality Calculated 289 275 - 295 mOsm/kg 07/17/2025 8:21 AM [facility] Albumin/Globulin Ratio 0.4(L) 1.1 - 2.3 07/17/2025 8:21 AM [facility] eGFR by CKD-EPI 61(L) >=90 mL/min/1.7 3 m2 07/17/2025 8:[address] [facility] Comment:Estimated Glomerular Filtration Rate (eGFR) calculated using the CKD-EPI Creatinine Equation (2020), per the National Kidney Foundation and [place] [employer] Nephrology recommendations. Blood BLOOD SPECIMEN / Unknown Lab Venipuncture / Unknown 07/17/2025 6:33 AM CDT 07/17/2025 7:26 AM CDT us Jhonny Quiroz MD LAB - CHEMISTRY ORDERABL ES Final Result [address] [address], [facility] [phone] * HIV-1 HIV-2 ANTIGEN/ANTIBODY (03/19/2020 7:44 AM CDT) HIV Antigen/Antibod y 1 & 2 Non-reacti ve Non-react tj 03/19/2020 8:29 AM CDT [facility] Comment:Neither HIV-1 p24 An tigen nor HIV-1/HIV-2 Antibodies are detected. Blood BLOOD SPECIMEN / Unknown Lab Venipuncture / Unknown 03/19/2020 7:44 AM CDT 03/19/2020 7:51 AM CDT us Cinthia Saldana MD LAB - HEMATOLOGY ORDERABLES Fi nal Result [facility] [address] [place] [address], [facility] [phone] from Last 3 Months or Most Recently Relevant to Health Maintenance Additional Health Concerns Infection Onset Date Last Indicated MDRO Hx Comment:03/11/20 - urine 12/08/2024 12/08/2024 ESBL Hx Comment:03/11/20 - urine 12/08/2024 12/08/2024 Insurance MEDICARE MEDICAID - [place] Advance Directives * Full Code (Latest Code Status on File) Date Activated Date Inactivated Comments 07/17/2025 6:18 AM 07/21/2025 3:01 PM * Full Code Date Activated Date Inactivated Comments 12/06/2024 3:55 AM 12/15/2024 5:17 PM * Full Code Date Activated Date Inactivated Comments 03/11/2020 8:21 PM 03/19/2020 11:14 AM Care Teams Lithopone Charger Relationship Specialty Start Date End Date Luis Eduardo Quiroga MD [facility] - General 03/05/18
--- NOTE | 2025-07-27 08:31 | ED.GENADULT ---
HPI - General Adult General Chief complaint: Unspecified Stated complaint: clogged gtube Time Seen by Provider: 07/27/25 07:03 Source: patient, EMS, RN notes reviewed and old records reviewed Mode of arrival: EMS History of Present Illness HPI narrative: This is a 60 year old female contracted with g tube for nutrition, multiple wounds who presents from nursing facility for clogged g tube. Nursing has attemped to [facility] without success. Related Data Home Medications ?Medication ?Instructions ?Recorded ?Confirmed ?Last Taken ?Type cholecalciferol (vitamin D3) 1,000 units G-tube DAILY 12/17/22 07/03/25 05/27/25 10:00 History famotidine 20 mg tablet 20 mg PO BID 12/17/22 07/03/25 05/27/25 17:00 History ondansetron 4 mg disintegrating 4 mg PO QID PRN Nausea And Vomiting 12/17/22 07/03/25 Unknown History tablet trazodone 50 mg tablet 50 mg PO HS 12/17/22 07/03/25 05/26/25 20:40 History sennosides 8.6 mg tablet (senna) 8.6 mg PO DAILY PRN Constipation 07/27/23 07/03/25 Unknown History citalopram 20 mg tablet 30 mg PO DAILY 06/20/24 07/03/25 05/27/25 10:00 History dextran 70-hypromellose eye drops 1 drp EACH EYE TID 06/20/24 07/03/25 05/27/25 12:00 History (Artificial Tears (dextran 70-hypromellose) eye drops) metoprolol tartrate 50 mg tablet 50 mg PO TID 06/20/24 07/03/25 05/27/25 17:20 History arginine 7 gram-glutamine 7 1 ea PO BID 01/13/25 07/03/25 05/27/25 17:20 History gram-calcium HMB 1.5 gram oral powder pack (Maged) bisacodyl 5 mg tablet,delayed 5 mg PO DAILY 01/13/25 07/03/25 05/27/25 10:00 History release ipratropium bromide 0.02 % 1.25 ml inhalation DAILY PRN 01/13/25 07/03/25 Unknown History solution for inhalation shortness of breath or wheezing dabigatran etexilate 150 mg capsule 150 mg PO BID 05/28/25 07/03/25 05/27/25 10:00 History Held on 06/05/25. Instructions: Resume on 06/26/25. Hold until suprapubic catheter is placed furosemide 20 mg tablet 20 mg feeding tube DAILY 05/28/25 07/03/25 05/27/25 10:00 History quetiapine 25 mg tablet 25 mg PO DAILY 05/28/25 07/03/25 05/27/25 10:20 History sodium bicarbonate 650 mg tablet 325 mg PO BID 05/28/25 07/03/25 05/27/25 10:00 History magnesium citrate (Citroma oral 296 ml PO DAILY PRN constipation 07/03/25 07/03/25 Unknown History solution) magnesium hydroxide 400 mg/5 mL 30 ml PO DAILY PRN constipation 07/03/25 07/03/25 Unknown History oral suspension (Milk of Magnesia) ajddgelybqvy-zmyl-wevdd acid 1 tablet PO DAILY 07/03/25 07/03/25 Unknown History oxycodone 5 mg capsule 5 mg PO Q8H PRN pain 07/03/25 07/03/25 Unknown History pregabalin 75 mg capsule 75 mg PO DAILY 07/03/25 07/03/25 Unknown History sodium phosphates 133 ml RECTAL DAILY PRN 07/03/25 07/03/25 Unknown History constipation lactose-reduced food with fiber 1 ea feeding tube .continuous 07/04/25 07/04/25 Unknown History 0.06 gram-1.5 kcal/mL oral liquid (Jevity 1.5 Elmer) Allergies Allergy/AdvReac Type Severity Reaction Status Date / Time No Known Allergies Allergy Verified 07/03/25 17:22 [facility] Past Medical History Medical History Multiple sclerosis Gastrointestinal tube in situ Chronic kidney disease, stage 3 Anorexia Malnutrition Pulmonary embolism (2014) Xanthogranulomatous pyelonephritis MRSA infection Urinary tract infection due to extended-spectrum beta lactamase (ESBL) producing Escherichia coli Chronic respiratory failure with hypoxia, on home oxygen therapy Previously documented that the patient is oxygen dependent on 4 L nasal cannula however she denies and is on room air with good SpO2 as of 07/27/2023. 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 History of nephrostomy Family History Family History Mother Family history of multiple sclerosis Hypertension Father Patient's father is Social History Social History Social History: She resides at [facility]. [facility]. Her guardian is Abe Burnham ([phone]). Code status: Full code. Smoking packs per day: 0.5 Smoking cigarettes per day: 10.0 Years smoked: 1 Smoking pack-years: 0.50 Smoking status: Never smoker Second hand tobacco smoke exposure: No Alcohol intake: never Substance use: never Do You Feel Safe in your Home?: Yes Lack of Transportation: No Lack of Food: Never True Current Housing: I Have Housing Concerned About Future Housing: No Difficulty Paying Gas/Electric Bills: No Difficulty Paying for Meds: No Currently Unemployed: No Education: Don't Know Difficulty w/ Childcare or Family Care: No Living arrangements: [facility] Additional living arrangements comments: 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ion: other Additional occupation/education comments: Disabled Spiritual care concerns: No Agree to blood products: Yes Exam Const: General: cooperative and alert Orientation/consciousness: oriented to person, oriented to place and patient oriented x3 HENMT: Head: normal to inspection Face and sinus: normal facial exam Eyes: Alignment and Position: alignment normal Eyelids: eyelids normal Conjunctivae: conjunctivae normal Pupils: Equal, round and reactive pupils present Resp: Effort & Inspection: normal respiratory effort Auscultation: clear to auscultation bilaterally Cardio: Rate: regular rate Rhythm: regular rhythm GI: GI Palp: Yes Soft to palpation and No Tenderness to palpation present (GI) Auscultation: normal bowel sounds Other: g tube in place Skin: General skin exam: wounds noted (bilateral ischium wounds with serousanginous drainage, granulation tissue) Wounds: wounds noted left heel bed granulating well and without odor, left foot bed granulating well, right buttock bed granulating well, left buttock bed granulating well, sacrum bed granulating well Psych: Appearance: grossly normal Course Reevaluation(s) Reevaluation #1: Patient presented for clogged g tube. I replaced g tube at bedside. Proper placement confirmed with imaging. Nursing redressed patient's chronic wounds. She is asking over and over again to not draw blood work. Patient afebrile and no overt sign of infection to wounds. She will be discharged back to facility Date: 07/27/25 Time: 10:01 Vital Signs Vital signs: Vital Signs Temperature 98.2 F 07/27/25 06:35 Pulse Rate 92 07/27/25 06:35 Respiratory Rate 13 07/27/25 06:35 Blood Pressure 125/89 07/27/25 06:35 Pulse Oximetry 99 07/27/25 06:35 Oxygen Delivery Room Air 07/27/25 06:35 Temperature 98.2 F 07/27/25 06:35 Pulse Rate 81 07/27/25 10:02 Respiratory Rate 16 07/27/25 10:02 Blood Pressure 113/78 07/27/25 10:02 Pulse Oximetry 100 07/27/25 10:02 Oxygen Delivery Room Air 07/27/25 06:35 Procedures Feeding Tube Replacement Feeding Tube #1: Feeding Tube Placement Date: 07/27/25 Feeding Tube Placement Time: 08:15 Type of Tube: gastrostomy Insertion Site Prior to Procedure: clean Arabic Tube Size (F): 18 Balloon size (mL): 20 Verification of Placement: gastrografin injection Tube Secured by: tape/dressing Patient Tolerated Procedure: well Medical Decision Making Vital Signs Vital Signs: Vital Signs Temperature 98.2 F 07/27/25 06:35 Pulse Rate 92 07/27/25 06:35 Respiratory Rate 13 07/27/25 06:35 Blood Pressure 125/89 07/27/25 06:35 Pulse Oximetry 99 07/27/25 06:35 Oxygen Delivery Room Air 07/27/25 06:35 Temperature 98.2 F 07/27/25 06:35 Pulse Rate 81 07/27/25 10:02 Respiratory Rate 16 07/27/25 10:02 Blood Pressure 113/78 07/27/25 10:02 Pulse Oximetry 100 07/27/25 10:02 Oxygen Delivery Room Air 07/27/25 06:35 Imaging Data Radiologist's impression: ITS Impressions Abdomen X-Ray 07/27/25 08:30 Impression: 1. Feeding tube in appropriate location Discharge Plan Discharge Clinical Impression: Clogged feeding tube Decubitus ulcers Qualifiers: Pressure injury location: unspecified location Pressure injury stage: unspecified pressure injury stage Qualified Code(s): L89.90 - Pressure ulcer of unspecified site, unspecified stage Patient Disposition: [facility] Condition: Stable Instructions: Antibiotic Form, How to Use and Care for Your PEG Tube (DC) Patient Language: Armenian Prescriptions: No Action famotidine 20 mg tablet 20 mg PO BID trazodone 50 mg tablet 50 mg PO HS ondansetron 4 mg tablet,disintegrating 4 mg PO QID PRN (Reason: Nausea And Vomiting) cholecalciferol (vitamin D3) 1,000 units G-tube DAILY sennosides [senna] 8.6 mg Tablet 8.6 mg PO DAILY PRN (Reason: Constipation) thiamine HCl (vitamin B1) [Vitamin B-1] 100 mg Tablet 300 mg feeding tube QAM Qty: 90 0RF Artificial Tears([id number]) Drops 1 drp EACH EYE TID citalopram 20 mg tablet 30 mg PO DAILY metoprolol tartrate 50 mg tablet 50 mg PO TID polyethylene glycol 3350 [Miralax] 17 gram Powder In Packet 17 g PO QAM Qty: 30 0RF bisacodyl 5 mg tablet,delayed release (DR/EC) 5 mg PO DAILY ipratropium bromide 0.02 % solution 1.25 ml inhalation DAILY PRN (Reason: shortness of breath or wheezing) Maged 7-7-1.5 gram powder in packet 1 ea PO BID dabigatran etexilate 150 mg capsule 150 mg PO BID furosemide 20 mg tablet 20 mg feeding tube DAILY quetiapine 25 mg tablet 25 mg PO DAILY sodium bicarbonate 650 mg Tablet 325 mg PO BID edkqcfxsvenn-bnhd-ccebt acid [Cerovite Advanced Formula] 1 tablet PO DAILY magnesium citrate [Citroma] Solution 296 ml PO DAILY PRN (Reason: constipation) sodium phosphates [Fleet Enema] 133 ml RECTAL DAILY PRN (Reason: constipation) Rx Instructions: Give if no result 1 day after suppository magnesium hydroxide [Milk of Magnesia] 400 mg/5 mL suspension 30 ml PO DAILY PRN (Reason: constipation) Rx Instructions: Give at HS if no BM in 3 days oxycodone 5 mg capsule 5 mg PO Q8H PRN (Reason: pain) pregabalin 75 mg capsule 75 mg PO DAILY Jevity 1.5 Elmer 0.06 gram-1.5 kcal/mL liquid 1 ea feeding tube .continuous Rx Instructions: Administer 50ml/hr via feeding tube with Auto flushes of 150ml Q4H Follow-up/Referrals: Kimber,MD Luis Eduardo [Primary Care Provider, Unknown]
[2025-07-27] MEDS: SOD HYPOCHLORITE 1/4 STRENGTH 473 ML 1 APPLIC TOPICAL (09:45)
[2025-07-27 10:02] VITALS: BP 113/78; PULSE 81; RESP 16; O2SAT 100
== END 2025-07-27 10:47 ==
PROVIDERS: Emergency Provider General Practice; PCP Internal Medicine
DX: K94.23 Gastrostomy malfunction (principal); L89.629 Pressure ulcer of left heel, unspecified stage; L89.329 Pressure ulcer of left buttock, unspecified stage; L89.319 Pressure ulcer of right buttock, unspecified stage; L89.159 Pressure ulcer of sacral region, unspecified stage; G35.D Multiple sclerosis, unspecified; I12.9 Hypertensive chronic kidney disease with stage 1 through stage 4 chronic kidney disease, or unspecified chronic kidney disease; N18.30 Chronic kidney disease, stage 3 unspecified; J96.11 Chronic respiratory failure with hypoxia; Z99.81 Dependence on supplemental oxygen; J44.9 Chronic obstructive pulmonary disease, unspecified; E78.5 Hyperlipidemia, unspecified; F03.90 Unspecified dementia, unspecified severity, without behavioral disturbance, psychotic disturbance, mood disturbance, and anxiety; N32.81 Overactive bladder; F32.A Depression, unspecified; F41.1 Generalized anxiety disorder; F25.9 Schizoaffective disorder, unspecified; F17.210 Nicotine dependence, cigarettes, uncomplicated; Z87.442 Personal history of urinary calculi; Z86.711 Personal history of pulmonary embolism; Z90.5 Acquired absence of kidney; Y83.3 Surgical operation with formation of external stoma as the cause of abnormal reaction of the patient, or of later complication, without mention of misadventure at the time of the procedure; Z79.899 Other long term (current) drug therapy
CPT/HCPCS: 43762; 99283; A9270

== ENCOUNTER 2025-08-16 19:22 | Inpatient (IN) | payer MEDICARE, MEDICAID, SELFPAY ==
[2025-08-16] VITALS (18 sets, daily range): BP systolic 99–133; BP diastolic 77–92; PULSE 96–107; RESP 12–28; TEMP 36.7; O2SAT 97–99
--- NOTE | ~2025-08-16 | XR_ITS ---
Examination: XR chest 1V portable Clinical History: chest pain Comparison: 08/16/2025 Technique: Portable AP Findings: Left chest Mediport. Heart size normal. Persistent elevation right hemidiaphragm, associated basilar atelectasis. No acute bony abnormality. IMPRESSION: 1. Persistent right basilar atelectasis. 2. Otherwise no acute abnormality or change. Reviewed, dictated and finalized at location R. S FACILITATOR
--- NOTE | ~2025-08-16 | CT_ITS ---
EXAMINATION: CTA chest PE abdomen pel DATE: 08/16/2025 23:47 INDICATION: Low abdominal pain. Chest pain. TECHNIQUE: Computed tomography angiography (CTA) of the chest was performed with 100 mL Omnipaque-350 intravenous contrast timed to evaluate the pulmonary arteries. Coronal maximum intensity projection 3D-reconstructions were created by the technologist. Computed tomography (CT) of the abdomen and pelvis was performed with intravenous contrast. Automated exposure control and iterative reconstruction technique were employed. The dose-length product was 512.91 mGy-cm. COMPARISON: CT abdomen and pelvis 07/03/2025 FINDINGS: CTA chest: The lungs demonstrate atelectasis, worst in right lower lobe. No pleural effusion. The heart size is normal. There are coronary artery calcifications. No pericardial effusion. There is a small sliding hiatal hernia. There is no pulmonary embolus. There is a left internal jugular port with tip in superior vena cava. There is chronic anterior wedging of many thoracic vertebral bodies. Thoracic kyphosis is noted. CT abdomen and pelvis: There is elevation of right hemidiaphragm. The liver, gallbladder, spleen, pancreas, and adrenal glands are normal. There are changes of right nephrectomy. There is cortical thinning of left kidney. There is a 7 mm cyst in left kidney. There is urothelial thickening and enhancement in the left renal collecting system, consistent with pyelitis. The rectosigmoid is distended and stool-filled. The appendix is normal. There are no pathologically enlarged lymph nodes. There is no free intraperitoneal fluid. There is a gastrostomy tube in expected position. Decubitus ulcers are noted superficial to the sacrum and ischial tuberosities. There is internal fixation of the femora. There is a chronic right hip dislocation with pseudoarthrosis. There is a chronic left hip dislocation with fusion of the femur and pelvis. There is moderate lumbar spondylosis. IMPRESSION: 1. No pulmonary embolus. 2. Left-sided pyelitis. 3. Stool-filled distended rectosigmoid. 4. Decubitus ulcers superficial to the sacrum and ischial tuberosities. No specific evidence of acute osteomyelitis. Reviewed, dictated and finalized at location E. HER HAND IMPRESSION: 1. No pulmonary embolus. 2. Left-sided pyelitis. 3. Stool-filled distended rectosigmoid. 4. Decubitus ulcers superficial to the sacrum and ischial tuberosities. No spec ific evidence of acute osteomyelitis.
--- NOTE | ~2025-08-16 | XR_ITS ---
EXAMINATION: XR chest 1V portable DATE: 08/16/2025 20:55 INDICATION: Chest pain TECHNIQUE: A single frontal view of the chest was obtained. COMPARISON: July 03, 2025 FINDINGS: Chronic elevation of the right hemidiaphragm with mild bibasilar atelectatic and/or fibrotic changes. Exam limited by portable technique and marginal inflation of the right lung. Left internal jugular Port-A-Cath stable in position. No pneumothorax or subphrenic free air seen. IMPRESSION: 1. Portable chest x-ray with no gross interval change compared to the July 03 chest x-ray. Exam somewhat limited as above. Reviewed, dictated and finalized at location A. ERWARE CLEANER
--- NOTE | ~2025-08-16 | XR_ITS ---
EXAMINATION: KUB: DATE: 08/24/2025. INDICATION: Rule out bowel obstruction. TECHNIQUE: Supine AP view of the abdomen were obtained. COMPARISON: CT dated 07/03/2025. FINDINGS: Gastrostomy is noted in the epigastric region. No supine radiographic evidence of mechanical bowel obstruction. Significant fecal impaction of the rectosigmoid. Postoperative changes of the hips. IMPRESSION: 1. Limited supine radiograph shows no definite evidence off mechanical bowel obstruction. 2. Significant fecal impaction with fecal mass of the rectosigmoid. G-tube noted in the upper abdomen. Reviewed, dictated and finalized at location T. RY MANAGER IMPRESSION: 1. Limited supine radiograph shows no definite evidence off mechanical bowel ob struction. 2. Significant fecal impaction with fecal mass of the rectosigmoid. G-tube note d in the upper abdomen.
--- NOTE | 2025-08-16 19:31 | ECG_ITS ---
Test Date: 2025-08-16 19:33:28 Measurements Intervals [place] Rate: 103 P: 40 MO: 156 QRS: 4 QRSD: 76 T: 12 QT: 333 QTc: 438 Interpretive Statements SINUS TACHYCARDIA LOW QRS VOLTAGE IN PRECORDIAL LEADS Electronically Signed On 08-17-2025 11:22:54 GETTER OPERATOR by Torres Michel D.O
--- NOTE | 2025-08-16 19:48 | PC.NURSE ---
Pt refusing blood draw
--- OUTSIDE RECORDS SUMMARY | 2025-08-16 20:21 | XMS_ITS | Clinical Summary ---
Author Organization [facility] Address [address] [place] [address] Care Team Providers Care Counselor Manager Name Role Phone Ana Moore MD Primary Care Provider Allergies No known active allergies Medications atorvastatin [...] mental status 10/23/2021 Urinary incontinence Schizoaffective disorder Multiple sclerosis Functional quadriplegia Fracture of lower end of right femur [...] Sex Assigned at Female 11/16/2021 12:52 AM SILVERLIGHT DEVELOPER Legal Sex Female 7:54 PM CDT Gender Identity Female 11/16/2021 12:52 AM SILVERLIGHT DEVELOPER Sexual Orientation Not on file Last Filed [...] Td Vaccines ( 1 - Tdap) 1985 Cervical Cancer Screening Pa p with HPV Testing (Age 30 to 64) Every 5 Years 1996 Cervical Cancer Screening with HPV 1996 Mammogram Screening 2006 Pneumococcal Vaccine: 50+ Years (1 of 1 - PCV) 2016 Zoster Vaccines (1 of 2) 2016 COVID-19 Vaccine (3 - 2024-2 6 season) 2025 11/05/2020, 10/14/2020 Influenza Adult (#1) 2025 Colorectal Cancer Screening FIT/FOBT (1 Year) Discontinued 11/15/2021 Hepatitis A Vaccines Aged Out No long er eligible based on patient's age to complete this topic Meningococcal B Vaccine Aged Out No l [...] walker, shower chair) Lifestyle No Miriam Encarnacion, highway safety engineer Procedure Name Priority Date/Time Associated Diagnosis Comments OCCULT BLOOD, FECES STAT 11/15/2021 7 :54 PM SILVERLIGHT DEVELOPER from Last 3 Months or Most Recently Relevant to Health Maintenance Results * OCCULT BLOOD, FECES (11/15/2021 7:54 PM SILVERLIGHT DEVELOPER) OCCULT BLOOD FECAL POSITIVE 11/15/2021 8:12 PM SILVERLIGHT DEVELOPER [facility] STOOL SPECIMEN / Unknown 11/15/2021 7:54 PM SILVERLIGHT DEVELOPER Renato Crawford MD,PHD BODY FLUIDS AND STOOLS ORD ERABLES Final Result [facility] [address] [place] [address], [place] [phone] from Last 3 Months or Most Recently Relevant to Health Maintenance Additional Health Concerns Infection Onset Date Last Indicated ESBL - Extended Spectrum Bet a-lactamase Comment:11/15/21 +ESBL Urine 02/05/22 +ESBL Urine 11/18/2021 11/18/2021 Insurance MEDICAID MEDICARE Advance Directives Documents on File Type Date Recorded Patient Plug Shaper Hand Expl anation Advance Directives and Living Will 11/22/2021 4:10 PM 12/04/2020 GUARDIAN OF PERSON Advance Directives and Living Will 11/18/2021 3:08 PM 09/11/2019 POLST * Full Code (Latest Code Status on File) Date Activated Date Inactivated Comments 11/15/2021 11:56 PM 11/22/2021 5:51 PM Care Teams Counselor Manager Relationship Specialty Start Date End Date Ana Moore MD [address] [place] [address] [place] [id number] PCP - General INTERNAL MEDICINE 02/05/22
--- NOTE | 2025-08-16 21:41 | PC.NURSE ---
wounds noticed on pts buttocks and left hip.
--- NOTE | 2025-08-16 22:17 | ED.GENADULT ---
HPI - General Adult General Chief complaint: Chest Pain Stated complaint: SUBSTERNAL BURNING CP; NON-RADIATING Time Seen by Provider: 08/16/25 19:47 History of Present Illness HPI narrative: Patient is a poor historian. She cannot provide a accurate or reliable history. This appears to be her baseline. She told triage that she was having chest pain. When I spoke to her she said she was having abdominal pain. Patient says she has been having lower abdominal pain that started yesterday and got worse today. She cannot describe its character. She says that she had a bowel movement yesterday. She is completely contracted and immobile due to MS and has issues with constipation and is on multiple stool softeners. She also says she has pain all over her body. When asked if she is having chest pain she replies yes but then cannot give me any additional information on her chest pain. Related Data Home Medications ?Medication ?Instructions ?Recorded ?Confirmed ?Last Taken ?Type cholecalciferol (vitamin D3) 1,000 units G-tube DAILY 12/17/22 07/03/25 05/27/25 10:00 History famotidine 20 mg tablet 20 mg PO BID 12/17/22 07/03/25 05/27/25 17:00 History ondansetron 4 mg disintegrating 4 mg PO QID PRN Nausea And Vomiting 12/17/22 07/03/25 Unknown History tablet trazodone 50 mg tablet 50 mg PO HS 12/17/22 07/03/25 05/26/25 20:40 History sennosides 8.6 mg tablet (senna) 8.6 mg PO DAILY PRN Constipation 07/27/23 07/03/25 Unknown History citalopram 20 mg tablet 30 mg PO DAILY 06/20/24 07/03/25 05/27/25 10:00 History dextran 70-hypromellose eye drops 1 drp EACH EYE TID 06/20/24 07/03/25 05/27/25 12:00 History (Artificial Tears (dextran 70-hypromellose) eye drops) metoprolol tartrate 50 mg tablet 50 mg PO TID 06/20/24 07/03/25 05/27/25 17:20 History arginine 7 gram-glutamine 7 1 ea PO BID 01/13/25 07/03/25 05/27/25 17:20 History gram-calcium HMB 1.5 gram oral powder pack (Maged) bisacodyl 5 mg tablet,delayed 5 mg PO DAILY 01/13/25 07/03/25 05/27/25 10:00 History release ipratropium bromide 0.02 % 1.25 ml inhalation DAILY PRN 01/13/25 07/03/25 Unknown History solution for inhalation shortness of breath or wheezing dabigatran etexilate 150 mg capsule 150 mg PO BID 05/28/25 07/03/25 05/27/25 10:00 History Held on 06/05/25. Instructions: Resume on 06/26/25. Hold until suprapubic catheter is placed furosemide 20 mg tablet 20 mg feeding tube DAILY 05/28/25 07/03/25 05/27/25 10:00 History quetiapine 25 mg tablet 25 mg PO DAILY 05/28/25 07/03/25 05/27/25 10:20 History sodium bicarbonate 650 mg tablet 325 mg PO BID 05/28/25 07/03/25 05/27/25 10:00 History magnesium citrate (Citroma oral 296 ml PO DAILY PRN constipation 07/03/25 07/03/25 Unknown History solution) magnesium hydroxide 400 mg/5 mL 30 ml PO DAILY PRN constipation 07/03/25 07/03/25 Unknown History oral suspension (Milk of Magnesia) sttcmhziscmd-psyh-xaaid acid 1 tablet PO DAILY 07/03/25 07/03/25 Unknown History oxycodone 5 mg capsule 5 mg PO Q8H PRN pain 07/03/25 07/03/25 Unknown History pregabalin 75 mg capsule 75 mg PO DAILY 07/03/25 07/03/25 Unknown History sodium phosphates 133 ml RECTAL DAILY PRN 07/03/25 07/03/25 Unknown History constipation lactose-reduced food with fiber 1 ea feeding tube .continuous 07/04/25 07/04/25 Unknown History 0.06 gram-1.5 kcal/mL oral liquid (Jevity 1.5 Elmer) Allergies Allergy/AdvReac Type Severity Reaction Status Date / Time No Known Allergies Allergy Verified 07/03/25 17:22 [facility] Past Medical History Medical History Multiple sclerosis Gastrointestinal tube in situ Chronic kidney disease, stage 3 Anorexia Malnutrition Pulmonary embolism (2015) Xanthogranulomatous pyelonephritis MRSA infection Urinary tract infection due to extended-spectrum beta lactamase (ESBL) producing Escherichia coli Chronic respiratory failure with hypoxia, on home oxygen therapy Previously documented that the patient is oxygen dependent on 4 L nasal cannula however she denies and is on room air with good SpO2 as of 07/27/2023. 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 History of nephrostomy Family History Family History Mother Family history of multiple sclerosis Hypertension Father Patient's father is Social History Social History Social History: She resides at [facility]. Patient is a ramos of the [facility]. Her guardian is Abe Burnham ([phone]). Code status: Full code. Smoking packs per day: 0.5 Smoking cigarettes per day: 10.0 Years smoked: 1 Smoking pack-years: 0.50 Smoking status: Never smoker Second hand tobacco smoke exposure: No Alcohol intake: never Substance use: never Do You Feel Safe in your Home?: Yes Lack of Transportation: No Lack of Food: Never True Current Housing: I Have Housing Concerned About Future Housing: No Difficulty Paying Gas/Electric Bills: No Difficulty Paying for Meds: No Currently Unemployed: No Education: Don't Know Difficulty w/ Childcare or Family Care: No Living arrangements: long-term Additional living arrangements comments: 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ion: other Additional occupation/education comments: Disabled Spiritual care concerns: No Agree to blood products: Yes Exam Narrative: APPEARANCE: A&O times 1-2, chronically unwell appearing Head: atraumatic. EYES: EOMI, NOSE: Atraumatic NECK: Trachea midline RESPIRATORY: Mildly tachypneic scattered rhonchi on 2 L nasal cannula CARDIOVASCULAR: Tachycardic ABDOMINAL: Nondistended, no guarding or rebound MUSCULOSKELETAl: No obvious deformities NEURO: Alert. Functional quadriplegic with 4 extremity contractures SKIN:: Decubitus ulcers without signs of infection Course Vital Signs Vital signs: Vital Signs Temperature 98.1 F 08/16/25 19:23 Pulse Rate 105 H 08/16/25 19:23 Respiratory Rate 22 H 08/16/25 19:23 Blood Pressure 120/92 H 08/16/25 19:23 Pulse Oximetry 99 08/16/25 19:23 Oxygen Delivery Room Air 08/16/25 19:23 Temperature 98.1 F 08/16/25 19:23 Pulse Rate 101 H 08/16/25 23:13 Respiratory Rate 25 H 08/16/25 23:13 Blood Pressure 121/91 H 08/16/25 23:13 Pulse Oximetry 91 08/17/25 00:11 Oxygen Delivery Nasal Cannula 08/17/25 00:11 Oxygen Flow Rate 2 08/17/25 00:11 Medical Decision Making MDM Narrative Medical decision making narrative: -Course: 60-year-old female with functional quadriplegia due to MS, schizophrenia and multiple other medical comorbidities presenting for chest pain and abdominal pain. Patient told the nursing staff that she has chest pain. She is telling me that she is having abdominal pain. Difficult to get history to a guide a workup. Gordon scan was obtained. CT chest abdomen pelvis here for right lower lobe consolidation and possible pneumonia. CT a/p showed inflammation of the urinary tract, however due to her contractures and abnormal anatomy we are unable to straight cath the patient for urine. Review of previous cultures showed sensitivity to ceftriaxone. Patient started on ceftriaxone and doxy to cover pneumonia possible UTI. Patient given 30 cc kg bolus. Patient be admitted the hospital for further management. Vital Signs Vital Signs: Vital Signs Temperature 98.1 F 08/16/25 19:23 Pulse Rate 105 H 08/16/25 19:23 Respiratory Rate 22 H 08/16/25 19:23 Blood Pressure 120/92 H 08/16/25 19:23 Pulse Oximetry 99 08/16/25 19:23 Oxygen Delivery Room Air 08/16/25 19:23 Temperature 98.1 F 08/16/25 19:23 Pulse Rate 101 H 11/16/25 23:13 Respiratory Rate 25 H 08/16/25 23:13 Blood Pressure 121/91 H 08/16/25 23:13 Pulse Oximetry 91 08/17/25 00:11 Oxygen Delivery Nasal Cannula 08/17/25 00:11 Oxygen Flow Rate 2 08/17/25 00:11 Lab Data 08/16/25 22:58 08/16/25 22:58 Labs: Lab Results 08/16/25 08/17/25 Range/Units 22:58 01:41 WBC 15.3 H (4.5-10.0) K/mm3 RBC 3.55 L (4.2-5.4) M/mm3 Hgb 9.9 L (12.0-15.0) g/dL Hct 32.4 L (37.0-47.0) % MCV 91.3 (80-100) fl MCH 27.9 (26-34) pg MCHC 30.6 L (32-36) g/dl RDW 15.6 H (11.5-14.5) % Plt Count 308 (150-375) k/mm3 MPV 10.1 (7.4-10.4) fl Immature Gran % (Auto) 0.5 (0-0.5) % Neut % (Auto) 82.9 H (45.5-73.1) % Lymph % (Auto) 9.9 L (18.3-44.2) % Marion % (Auto) 4.4 (2.6-8.5) % Eos % (Auto) 2.1 (0-4.4) % Baso % (Auto) 0.2 (0.2-1.2) % Lymph # (Auto) 1.52 (0.9-3.2) K/mm3 Marion # (Auto) 0.7 H (0.1-0.6) K/mm3 Eos # (Auto) 0.3 (0-0.3) K/mm3 Baso # (Auto) 0.0 (0.0-0.1) K/mm3 Abs Immat Gran (auto) 0.07 H (0.00-0.031) K/mm3 Absolute Neuts (auto) 12.7 H (1.3-6.7) K/mm3 Absolute Nucleated RBC 0.000 (0.0-0.012) K/mm3 Nucleated RBC % 0.0 (0.0-0.2) % PT 14.6 (11.1-14.7) Seconds INR 1.2 APTT 34.2 (22.3-36.8) Seconds Sodium 139 (137-145) mmol/L Potassium 5.3 H (3.4-5.0) mmol/L Chloride 104 (98-107) mmol/L Carbon Dioxide 25 (22-30) mmol/L Anion Gap 10 (4-12) mmol/L BUN 71 H D (7-17) mg/dL Creatinine 1.28 H (0.7-1.0) mg/dL Estim Creat Clear Calc 34 ml/min Estimated GFR 43 L (59 - ) Glucose 100 (65-110) mg/dL Calcium 9.2 (8.4-10.2) mg/dL Total Bilirubin 0.5 (0.2-1.3) mg/dL AST 36 (14-36) U/L ALT 31 (6-35) U/L Alkaline Phosphatase 224 H (38-126) U/L Troponin I < 0.012 < 0.012 (0.000-0.034) ng/mL Total Protein 9.7 H (6.3-8.2) g/dL Albumin 4.2 (3.5-5.1) g/dL Lipase 288 (23-300) U/L Discharge Plan Discharge Clinical Impression: Pneumonia, UTI (urinary tract infection), Sepsis Patient Disposition: Still a Patient Condition: Stable Patient Language: Maori Prescriptions: No Action famotidine 20 mg tablet 20 mg PO BID trazodone 50 mg tablet 50 mg PO HS ondansetron 4 mg tablet,disintegrating 4 mg PO QID PRN (Reason: Nausea And Vomiting) cholecalciferol (vitamin D3) 1,000 units G-tube DAILY sennosides [senna] 8.6 mg Tablet 8.6 mg PO DAILY PRN (Reason: Constipation) thiamine HCl (vitamin B1) [Vitamin B-1] 100 mg Tablet 300 mg feeding tube QAM Qty: 90 0RF Artificial Tears([id number]) Drops 1 drp EACH EYE TID citalopram 20 mg tablet 30 mg PO DAILY metoprolol tartrate 50 mg tablet 50 mg PO TID polyethylene glycol 3350 [Miralax] 17 gram Powder In Packet 17 g PO QAM Qty: 30 0RF bisacodyl 5 mg tablet,delayed release (DR/EC) 5 mg PO DAILY ipratropium bromide 0.02 % solution 1.25 ml inhalation DAILY PRN (Reason: shortness of breath or wheezing) Maged 7-7-1.5 gram powder in packet 1 ea PO BID dabigatran etexilate 150 mg capsule 150 mg PO BID furosemide 20 mg tablet 20 mg feeding tube DAILY quetiapine 25 mg tablet 25 mg PO DAILY sodium bicarbonate 650 mg Tablet 325 mg PO BID eufcbgglbxlq-tnbd-fwoqx acid [Cerovite Advanced Formula] 1 tablet PO DAILY magnesium citrate [Citroma] Solution 296 ml PO DAILY PRN (Reason: constipation) sodium phosphates [Fleet Enema] 133 ml RECTAL DAILY PRN (Reason: constipation) Rx Instructions: Give if no result 1 day after suppository magnesium hydroxide [Milk of Magnesia] 400 mg/5 mL suspension 30 ml PO DAILY PRN (Reason: constipation) Rx Instructions: Give at HS if no BM in 3 days oxycodone 5 mg capsule 5 mg PO Q8H PRN (Reason: pain) pregabalin 75 mg capsule 75 mg PO DAILY Jevity 1.5 Elmer 0.06 gram-1.5 kcal/mL liquid 1 ea feeding tube .continuous Rx Instructions: Administer 50ml/hr via feeding tube with Auto flushes of 150ml Q4H Follow-up/Referrals: Kimber,MD Luis Eduardo [Primary Care Provider, Unknown]
[2025-08-16 23:04] LABS: Hematocrit 32.4 % (37.0-47.0); Hemoglobin 9.9 g/dL (12.0-15.0); Immature Granulocyte Percent A 0.5 % (0-0.5); Lymphocytes Absolute Auto 1.52 K/mm3 (0.9-3.2); Mean Corpuscular HGB Conc 30.6 g/dl (32-36); Mean Corpuscular Hemoglobin 27.9 pg (26-34); Mean Corpuscular Volume 91.3 fl (80-100); Nucleated Red Blood Cells Absolute Auto 0.000 K/mm3 (0.0-0.012); Nucleated Red Blood Cells Perc 0.0 % (0.0-0.2); Platelet Count Result 308 k/mm3 (150-375); Red Blood Count 3.55 M/mm3 (4.2-5.4); White Blood Count 15.3 K/mm3 (4.5-10.0)
[2025-08-16] MEDS: LACTATED RINGERS 1,000 ML 999 ML IV CONT (23:06)
[2025-08-16 23:15] LABS: Alanine Aminotransferase 31 U/L (6-35); Albumin Level 4.2 g/dL (3.5-5.1); Alkaline Phosphatase 224 U/L (38-126); Anion Gap 10 mmol/L (4-12); Aspartate Amino Transferase 36 U/L (14-36); Bilirubin,Total 0.5 mg/dL (0.2-1.3); Blood Urea Nitrogen 71 mg/dL (7-17); Calcium 9.2 mg/dL (8.4-10.2); Carbon Dioxide 25 mmol/L (22-30); Chloride 104 mmol/L (98-107); Estimated CRCL calculation 34 ml/min; Estimated Glomerular Filt Rate 43; Glucose 100 mg/dL (65-110); Lipase 288 U/L (23-300); Potassium 5.3 mmol/L (3.4-5.0); Sodium 139 mmol/L (137-145); Total Protein 9.7 g/dL (6.3-8.2)
[2025-08-16 23:16] LABS: INR 1.2; Prothrombin Time 14.6 Seconds (11.1-14.7)
[2025-08-16 23:17] LABS: Partial Thromboplastin Time 34.2 Seconds (22.3-36.8)
[2025-08-16 23:26] LABS: Troponin I < 0.012 ng/mL (0.000-0.034)
[2025-08-17] VITALS (10 sets, daily range): BP systolic 131–144; BP diastolic 78–101; PULSE 89–110; RESP 16–18; TEMP 36.1–36.6; O2SAT 87–100; BMI 19.7
[2025-08-17] MEDS: HYDROmorphone HCL INJ (*CRX) 1 MG/ML SYR 0.5 MG IV PUSH (00:02)
--- NOTE | 2025-08-17 01:48 | ECG_ITS ---
Test Date: 2025-08-17 01:43:43 Measurements Intervals [place] Rate: 97 P: 42 MN: 149 QRS: 5 QRSD: 75 T: 11 QT: 345 QTc: 439 Interpretive Statements SINUS RHYTHM LOW QRS VOLTAGE IN PRECORDIAL LEADS POSSIBLE ANTERIOR MYOCARDIAL INFARCTION , OF INDETERMINATE AGE Electronically Signed On 08-17-2025 11:23:23 DIE MAKER by Torres Michel D.O
[2025-08-17 02:31] LABS: Troponin I < 0.012 ng/mL (0.000-0.034)
--- NOTE | 2025-08-17 03:30 | PC.NURSE ---
Multiple RN attempts to straight cath for urine. RNs unsuccessful in attempts. EDP states we can start the antibiotics without the urine sample
[2025-08-17] MEDS: cefTRIAXone 1 GM in SODIUM CHLORIDE 0.9% IV 50 ML 100 ML IVPB (04:04)
[2025-08-17] MEDS: LACTATED RINGERS 1,000 ML 999 ML IV CONT (04:04)
[2025-08-17] MEDS: DOXYCYCLINE IV 100 MG in SODIUM CHLORIDE 0.9% IV 100 ML IVPB ×2 (05:05→21:48)
--- NOTE | 2025-08-17 06:10 | PC.NURSE ---
RN cleaned and changed pt linens and diaper. Pt placed in new sheets, diaper, and pads. Pt was offered wash cloth to clean her as well.
[2025-08-17 07:26] LABS: Hematocrit 29.8 % (37.0-47.0); Hemoglobin 9.1 g/dL (12.0-15.0); Immature Granulocyte Percent A 0.5 % (0-0.5); Lymphocytes Absolute Auto 1.13 K/mm3 (0.9-3.2); Mean Corpuscular HGB Conc 30.5 g/dl (32-36); Mean Corpuscular Hemoglobin 28.1 pg (26-34); Mean Corpuscular Volume 92.0 fl (80-100); Nucleated Red Blood Cells Absolute Auto 0.000 K/mm3 (0.0-0.012); Nucleated Red Blood Cells Perc 0.0 % (0.0-0.2); Platelet Count Result 260 k/mm3 (150-375); Red Blood Count 3.24 M/mm3 (4.2-5.4); White Blood Count 14.0 K/mm3 (4.5-10.0)
[2025-08-17 07:56] LABS: Anion Gap 9 mmol/L (4-12); Blood Urea Nitrogen 59 mg/dL (7-17); Calcium 9.1 mg/dL (8.4-10.2); Carbon Dioxide 23 mmol/L (22-30); Chloride 105 mmol/L (98-107); Estimated CRCL calculation 36 ml/min; Estimated Glomerular Filt Rate 46; Glucose 99 mg/dL (65-110); Magnesium 2.4 mg/dL (1.6-2.3); Potassium 4.9 mmol/L (3.4-5.0); Sodium 137 mmol/L (137-145)
--- NOTE | 2025-08-17 08:10 | PM.IMHP ---
H&P: HPI History of Present Illness Date/Time: 08/17/25 1340 Chief Complaint: Abd pain Narrative: Pt with a hx of debility, contractures, and multiple decub ulcers 2/2 MS to the ED on 08/16/2025 c/p abd pain from her [facility]. Today pt reporting a burning type GERD upper abd pain with potential nausea she cannot definitively differentiate the two; when turned on her side during wound assessment, she reports alleviated abd pain. Pt is a poor historian. Pt was recently here at the end of July and transferred to [facility] for a second opinion for potential RLE amputation. Amputation did not take place, wounds evaluated today with me as well as wound, none looking acutely infected but all in advanced stages. Pt denies SOB but endorses CP when asked if she is having chest pain and but cannot describe the cp. Her white count is noted to be 14, which is down trending from her initial labs in the ED (15.3). Her H&H is 9.1 and 29.8, these are slightly higher than her baseline. Her potassium was found to be 4.9 Her BUN 59 and creatinine 1.19. Her GFR is 46. WBC 14 (down from 15.3 in the ED), continue ceftriaxone and doxy for PNA and possible UTI. Review of Systems Review of Systems: All systems reviewed & are unremarkable except as noted in HPI and below PMFSH Past Medical History Medical History Multiple sclerosis Gastrointestinal tube in situ Chronic kidney disease, stage 3 Anorexia Malnutrition Pulmonary embolism (2014) Xanthogranulomatous pyelonephritis MRSA infection Urinary tract infection due to extended-spectrum beta lactamase (ESBL) producing Escherichia coli Chronic respiratory failure with hypoxia, on home oxygen therapy Previously documented that the patient is oxygen dependent on 4 L nasal cannula however she denies and is on room air with good SpO2 as of 07/27/2023. 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 History of nephrostomy Family History Family History Mother Family history of multiple sclerosis Hypertension Father Patient's father is Social History Social History Social History: She resides at [facility]. Patient is a ramos of the [facility]. Her guardian is Abe Burnham ([phone]). Code status: Full code. Smoking packs per day: 0.5 Smoking cigarettes per day: 10.0 Years smoked: 1 Smoking pack-years: 0.50 Smoking status: Never smoker Second hand tobacco smoke exposure: No Alcohol intake: unknown Substance use: former Substance use type: marijuana Do You Feel Safe in your Home?: Yes Lack of Transportation: No Lack of Food: Never True Current Housing: I Have Housing Concerned About Future Housing: No Difficulty Paying Gas/Electric Bills: No Difficulty Paying for Meds: No Currently Unemployed: No Education: Don't Know Difficulty w/ Childcare or Family Care: No Living arrangements: senior living Additional living arrangements comments: 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ion: other Additional occupation/education comments: Disabled Spiritual care concerns: No Agree to blood products: Yes Meds Home Medications and Allergies Home Medications ?Medication ?Instructions ?Recorded ?Confirmed ?Type cholecalciferol (vitamin D3) 1,000 units G-tube DAILY 12/17/22 08/17/25 History ondansetron 4 mg disintegrating 4 mg PO QID PRN Nausea And Vomiting 12/17/22 08/17/25 History tablet trazodone 50 mg tablet 50 mg PO HS 12/17/22 08/17/25 History sennosides 8.6 mg tablet (senna) 8.6 mg PO DAILY Constipation 07/27/23 08/17/25 History citalopram 20 mg tablet 20 mg PO DAILY 06/20/24 08/17/25 History dextran 70-hypromellose eye drops 1 drp EACH EYE TID 06/20/24 08/17/25 History (Artificial Tears (dextran 70-hypromellose) eye drops) polyethylene glycol 3350 17 gram 17 g PO QAM #30 ea 07/17/24 08/17/25 Rx oral powder packet (Miralax) arginine 7 gram-glutamine 7 1 ea PO BID 01/13/25 08/17/25 History gram-calcium HMB 1.5 gram oral powder pack (Maged) bisacodyl 5 mg tablet,delayed 5 mg PO DAILY 01/13/25 08/17/25 History release ipratropium bromide 0.02 % 1.25 ml inhalation DAILY PRN 01/13/25 08/17/25 History solution for inhalation shortness of breath or wheezing sodium bicarbonate 650 mg tablet 650 mg PO BID 05/28/25 08/17/25 History magnesium citrate (Citroma oral 296 ml PO DAILY PRN constipation 07/03/25 08/17/25 History solution) magnesium hydroxide 400 mg/5 mL 30 ml PO DAILY PRN constipation 07/03/25 08/17/25 History oral suspension (Milk of Magnesia) [id number] acid 1 tablet PO DAILY 07/03/25 08/17/25 History pregabalin 75 mg capsule 75 mg PO DAILY 07/03/25 08/17/25 History sodium phosphates 133 ml RECTAL DAILY PRN 07/03/25 08/17/25 History constipation acetaminophen 325 mg tablet 650 mg PO Q4H PRN pain 08/17/25 08/17/25 History (Tylenol) amlodipine 10 mg tablet 10 mg feeding tube DAILY 08/17/25 08/17/25 History apixaban 2.5 mg tablet (Eliquis) 2.5 mg feeding tube 2100 08/17/25 08/17/25 History ascorbic acid (vitamin C) 500 mg/5 250 mg PO DAILY 08/17/25 08/17/25 History mL oral liquid bisacodyl 10 mg rectal suppository 10 mg RECTAL DAILY PRN constipation 08/17/25 08/17/25 History citalopram 10 mg tablet 10 mg feeding tube DAILY 08/17/25 08/17/25 History folic acid 1 mg tablet 1 mg PO DAILY 08/17/25 08/17/25 History hydrocodone 5 mg-acetaminophen 325 1 tablet PO Q6H PRN pain 08/17/25 08/17/25 History mg tablet lansoprazole 30 mg delayed 30 mg PO DAILY 08/17/25 08/17/25 History release,disintegrating tablet (Prevacid SoluTab) melatonin 3 mg capsule 3 mg PO HS 08/17/25 08/17/25 History metoprolol succinate 50 mg 50 mg PO TID 08/17/25 08/17/25 History tablet,extended release 24 hr thiamine HCl (vitamin B1) 100 mg 100 mg feeding tube TID 08/17/25 08/17/25 History tablet (Vitamin B-1) Allergies Allergy/AdvReac Type Severity Reaction Status Date / Time No Known Allergies Allergy Verified 08/17/25 15:03 Vital Signs Vital Signs - 24 hr 08/16/25 19:23 08/16/25 19:25 08/16/25 19:29 Temperature 98.1 F Pulse Rate 105 H 106 H 107 H Respiratory Rate 22 H 28 H Blood Pressure 120/92 H 120/92 H Pulse Oximetry 99 98 98 Oxygen Delivery Room Air Oxygen Flow Rate 08/16/25 19:30 08/16/25 20:27 08/16/25 20:44 Temperature Pulse Rate 107 H 100 99 Respiratory Rate 21 H 26 H Blood Pressure Pulse Oximetry 98 98 Oxygen Delivery Oxygen Flow Rate 08/16/25 20:45 08/16/25 20:46 08/16/25 21:11 Temperature Pulse Rate 99 98 98 Respiratory Rate 27 H 25 H 22 H Blood Pressure 107/81 Pulse Oximetry 98 98 98 Oxygen Delivery Oxygen Flow Rate 08/16/25 21:15 08/16/25 21:16 08/16/25 21:30 Temperature Pulse Rate 97 98 99 Respiratory Rate 18 21 H 12 Blood Pressure 99/77 L 107/81 Pulse Oximetry 97 97 97 Oxygen Delivery Oxygen Flow Rate 08/16/25 21:31 08/16/25 21:45 08/16/25 22:00 Temperature Pulse Rate 100 96 102 H Respiratory Rate 14 14 18 Blood Pressure 105/80 120/88 Pulse Oximetry 97 97 98 Oxygen Delivery Oxygen Flow Rate 08/16/25 22:15 08/16/25 22:30 08/16/25 23:13 Temperature Pulse Rate 105 H 105 H 101 H Respiratory Rate 23 H 27 H 25 H Blood Pressure 133/91 H 124/89 121/91 H Pulse Oximetry 99 99 99 Oxygen Delivery Oxygen Flow Rate 08/17/25 00:11 08/17/25 00:11 08/17/25 04:03 Temperature Pulse Rate 89 Respiratory Rate 18 Blood Pressure 138/101 H Pulse Oximetry 87 L 91 99 Oxygen Delivery Room Air Nasal Cannula Oxygen Flow Rate 2 08/17/25 05:35 Temperature Pulse Rate Respiratory Rate Blood Pressure Pulse Oximetry 98 Oxygen Delivery Room Air Oxygen Flow Rate Exam Narrative: Contracted full body, cachectic, chronically ill appearing woman Const: General: comfortable and no acute distress HENMT: Face/Nose/Sinus: Normal nares present Other: tacky mucous membranes Eyes: Other: Nystagmus L eye Neck: Neck: supple Resp: Effort & Inspection: normal respiratory effort Other: Scattered rhonchi, diminished LS in the bases Cardio: Rate: tachycardic (appears to be chronic) Rhythm: regular rhythm GI: Inspection: non-distended GI Palp: Yes Soft to palpation and No Tenderness to palpation present (GI) Auscultation: normal bowel sounds : External Female Exam: normal external appearance Other: observed during wound exam/cleaning up pt Skin: Other: Multiple wounds, refer to wound comprehensive notes. All wounds redressed today. Neuro: General: oriented to person Speech: normal speech Other: Unable to assess strength due to MS contractures, sensation limited in BLE Extrem: Other: 4 limb contracture Psych: Affect: normal affect Judgement: Poor judgement present (Psych) H&P: Results Labs Labs: Short CBC 08/16/25 08/17/25 Range/Units 22:58 07:10 WBC 15.3 H 14.0 H (4.5-10.0) K/mm3 Hgb 9.9 L 9.1 L (12.0-15.0) g/dL Hct 32.4 L 29.8 L (37.0-47.0) % Plt Count 308 260 (150-375) k/mm3 BMP 08/16/25 08/17/25 22:58 07:10 Sodium 139 137 Potassium 5.3 H 4.9 Chloride 104 105 Carbon Dioxide 25 23 BUN 71 H D 59 H D Creatinine 1.28 H 1.19 H Glucose 100 99 Calcium 9.2 9.1 Cardiac Enzymes 08/16/25 08/17/25 Range/Units 22:58 01:41 Troponin I < 0.012 < 0.012 (0.000-0.034) ng/mL Liver Function 08/16/25 Range/Units 22:58 Total Bilirubin 0.5 (0.2-1.3) mg/dL AST 36 (14-36) U/L ALT 31 (6-35) U/L Alkaline Phosphatase 224 H (38-126) U/L Albumin 4.2 (3.5-5.1) g/dL Assessment and Plan Assessment and plan (1) Pneumonia: Code(s): J18.9 - Pneumonia, unspecified organism Status: Acute Assessment and Plan: Atelectasis to the RLL per CT scan. -Continue ceftriaxone & doxy IV -BS with scattered rhonchi -Daily labs (2) UTI (urinary tract infection): Code(s): N39.0 - Urinary tract infection, site not specified Status: Acute Assessment and Plan: Suspected via CT d/t: There is urothelial thickening and enhancement in the left renal collecting system, consistent with pyelitis. Per ED, unable to obtain straight cath due to pt anatomy: BLE contractures. -Continue Rocephin. -Daily labs (3) Gastrointestinal tube in situ: Code(s): Z93.1 - Gastrostomy status Status: Acute Assessment and Plan: Pt eats food via mouth, G tube for meds (4) Pressure ulcers of skin of multiple topographic sites: Code(s): L89.90 - Pressure ulcer of unspecified site, unspecified stage Status: Chronic Assessment and Plan: Extensive, but denies pain. Hx MS. Contracted throughout body. -Wound following, assessed and re-dressed all wounds today (5) Schizoaffective disorder: Code(s): F25.9 - Schizoaffective disorder, unspecified Status: Acute (6) Abdominal pain: Code(s): R10.9 - Unspecified abdominal pain Status: Acute Assessment and Plan: GERD vs. fecal impaction vs nausea. Alleviates when turned onto her abd? (performed this to observe all wounds briefly) -BM today when arrived to the floor, large and liquid Plan Plan for daily labs and continued IV abx for PNA/UTI. Wound following. Quality VTE Prophylaxis VTE prophylaxis: pharmacologic ordered (Home Eliquis 2.5mg Q 12 hr)
--- NOTE | 2025-08-17 10:14 | WPCEDHO ---
ED Hand Off Checklist All vitals saved: yes IV Site documented: yes All med administrations documented: yes Triage Note Triage Note pt to ED via EMS from [facility] 08/16/25 19:23 with c/o chest pain. pt states she has been having chest pain since this morning and describes it as a burning pain. pt states she thinks it is acid reflux. pt states her stomach hurts as well. pt denies any SOB. pt states I don't want blood drawn.pt is A+ Ox2 which is baseline. Allergies No Known Allergies Allergy (Verified 07/03/25 17:22) Family History (Last Reviewed 07/05/25 @ 14:19 by Brian Covarrubias MD) Mother Family history of multiple sclerosis Hypertension Father Patient's father is Administered/Completed Medications Discontinued Medications Aspirin (Aspirin 81 Mg Chewable Tablet) 324 mg PO ONCE STA Stop: 08/16/25 19:31 Last Admin: 08/16/25 22:07 Dose: Not Given Documented By: ACS Non-Admin Reason: Patient Refuses Hydromorphone HCl (Hydromorphone Hcl Inj (*Crx) 1 Mg/Ml Syr) 0.5 mg IV PUSH ONCE STA Stop: 08/16/25 23:12 Last Admin: 08/17/25 00:02 Dose: 0.5 mg Documented By: ACS Lactated Ringer's (Lr - Lactated Ringers Iv) 1,000 mls @ 999 mls/hr IV CONT .Q1H1M STA Stop: 08/16/25 23:16 Last Infusion: 08/17/25 00:47 Dose: Infused Documented By: Admin: 08/16/25 23:06 Dose: 999 mls/hr Documented By: MARY Ceftriaxone Sodium 1 gm/ (Sodium Chloride) 50 mls @ 100 mls/hr IVPB ONCE STA Stop: 08/17/25 02:57 Last Infusion: 08/17/25 05:04 Dose: Infused Documented By: Admin: 08/17/25 04:04 Dose: 100 mls/hr Documented By: SAMRA Doxycycline Hyclate 100 mg/ (Sodium Chloride) 100 mls @ 100 mls/hr IVPB ONCE STA Stop: 08/17/25 03:27 Last Infusion: 08/17/25 06:01 Dose: Infused Documented By: Admin: 08/17/25 05:05 Dose: 100 mls/hr Documented By: SAMRA Lactated Ringer's (Lr - Lactated Ringers Iv) 1,000 mls @ 999 mls/hr IV CONT .Q1H1M STA Stop: 08/17/25 03:28 Last Infusion: 08/17/25 05:04 Dose: Infused Documented By: Admin: 08/17/25 04:04 Dose: 999 mls/hr Documented By: SAMRA Notes 08/17/25 06:10 Nurse Note by Regla Cope RN cleaned and changed pt linens and diaper. Pt placed in new sheets, diaper, and pads. Pt was offered wash cloth to clean her as well. Initialized on 08/17/25 06:10 - END OF NOTE 08/17/25 03:30 Nurse Note by Oliva Bean Multiple RN attempts to straight cath for urine. RNs unsuccessful in attempts. EDP states we can start the antibiotics without the urine sample Initialized on 08/17/25 03:30 - END OF NOTE 08/16/25 21:41 Nurse Note by Oliva Bean wounds noticed on pts buttocks and left hip. Initialized on 08/16/25 21:41 - END OF NOTE 08/16/25 19:48 Nurse Note by Oliva Bean Pt refusing blood draw Initialized on 08/16/25 19:48 - END OF NOTE Interventions/Assessments Cardiac Monitoring Start: 08/16/25 19:13 Freq: Status: Active Protocol: Document 08/16/25 19:30 ACS (Rec: 08/16/25 19:30 ACS [id number]) Manager Patient Assessment Manager Patient Yes Applied Pulse Rate (60-100) 107 H EKG Rythm Sinus Tachycardia IV / Saline Lock, Insert Start: 08/16/25 19:31 Freq: STAT Status: Active Protocol: Document 08/16/25 22:58 ACS (Rec: 08/16/25 22:59 ACS [id number]) IV Assessment Peripheral Access Right Wrist IV Catheter Access Initiated IV Insertion Date 08/16/25 IV Insertion Time 22:59 Catheter Gauge 20 IV Site Assessment WNL IV Care and WNL Maintenance PA: Cardiovascular Assessment Start: 08/16/25 19:13 Freq: Status: Active Protocol: Document 08/17/25 06:14 KRZ (Rec: 08/17/25 06:14 KRZ [id number]) Cardiovascular Assessment Cardiovascular None Symptoms Skin Description Normal Color Heart Sounds Normal Chest Pain Assessment Chest Pain Intensity 0 PA: Respiratory Assessment Start: 08/16/25 19:13 Freq: Status: Active Protocol: Document 08/17/25 05:35 KRZ (Rec: 08/17/25 05:35 KRZ [id number]) Respiratory Assessment Respiratory WNL Parameters Oxygen Delivery Oxygen Delivery Room Air Pulse Oximetry (90- 98 100) Last Vital Signs Temperature 97.6 F 08/17/25 08:26 Pulse Rate 99 08/17/25 08:26 Respiratory Rate 17 08/17/25 08:26 Pulse Oximetry 99 08/17/25 08:26 Blood Pressure 131/93 H 08/17/25 08:26 Blood Pressure Mean 105 08/17/25 08:26 Oxygen Delivery Room Air 08/17/25 05:35 Oxygen Flow Rate 2 08/17/25 00:11 Weight 50.5 kg 08/16/25 19:23 Last Result - Abnormals Only WBC 14.0 K/mm3 (4.5-10.0) H 08/17/25 07:10 RBC 3.24 M/mm3 (4.2-5.4) L 08/17/25 07:10 Hgb 9.1 g/dL (12.0-15.0) L 08/17/25 07:10 Hct 29.8 % (37.0-47.0) L 08/17/25 07:10 MCHC 30.5 g/dl (32-36) L 08/17/25 07:10 RDW 15.5 % (11.5-14.5) H 08/17/25 07:10 Neut % (Auto) 86.7 % (45.5-73.1) H 08/17/25 07:10 Lymph % (Auto) 8.1 % (18.3-44.2) L 08/17/25 07:10 Clay # (Auto) 0.7 K/mm3 (0.1-0.6) H 08/16/25 22:58 Abs Immat Gran (auto) 0.07 K/mm3 (0.00-0.031) H 08/17/25 07:10 Absolute Neuts (auto) 12.2 K/mm3 (1.3-6.7) H 08/17/25 07:10 Potassium 5.3 mmol/L (3.4-5.0) H 08/16/25 22:58 BUN 59 mg/dL (7-17) H D 08/17/25 07:10 Creatinine 1.19 mg/dL (0.7-1.0) H 08/17/25 07:10 Estimated GFR 46 (59-) L 08/17/25 07:10 Magnesium 2.4 mg/dL (1.6-2.3) H 08/17/25 07:10 Alkaline Phosphatase 224 U/L (38-126) H 08/16/25 22:58 Total Protein 9.7 g/dL (6.3-8.2) H 08/16/25 22:58 Most Recent Suicide Severity Rating Suicide Severity Rating NO RISK INDICATED 08/16/25 19:23
--- NOTE | 2025-08-17 13:46 | WNDPHOTO ---
PHOTO ONLY - See Nursing Notes and/ or assessments for documentation.
--- NOTE | 2025-08-17 13:50 | WNDPHOTO ---
PHOTO ONLY - See Nursing Notes and/ or assessments for documentation.
--- NOTE | 2025-08-17 13:51 | WNDPHOTO ---
PHOTO ONLY - See Nursing Notes and/ or assessments for documentation.
--- NOTE | 2025-08-17 13:53 | WNDPHOTO ---
PHOTO ONLY - See Nursing Notes and/ or assessments for documentation.
--- NOTE | 2025-08-17 13:55 | WNDPHOTO ---
PHOTO ONLY - See Nursing Notes and/ or assessments for documentation.
--- NOTE | 2025-08-17 14:03 | WNDPHOTO ---
PHOTO ONLY - See Nursing Notes and/ or assessments for documentation.
--- NOTE | 2025-08-17 15:01 | ADMGEN ---
This patient, Yesenia Perez, was admitted to 3 [facility] Surg Room 330-02. Patient/family oriented to hospital policies and general routines including ID bracelet, bed and alarms, visiting hours, pain management, procedures, bathroom and other care routines, personal items, smoking policy, room service/diet, and visiting hours. Information on how to activate the Rapid Response Team has been discussed. Patient/Family are encouraged to report perceived risks to care and to ask questions if they do not understand what they are told or what they should do. Pt had been boarded in the ED awaiting a M/S tele bed.
--- NOTE | 2025-08-17 20:09 | PC.NURSE ---
Pt received to floor with 7 previous pressure wounds. Wound photos taken. Provider at bedside, as well as wound care. New orders received for dressings, but wound care okay with current dressings we had already started placing. They will put in new orders and would like us to call [facility] to get wound care instructions that she had received when she transferred to higher level care in July as wounds healing well. Med rec showed PO and g-tube medications, as well as controlled release meds were going through her g-tube according to them. No tube feedings listed per facility instructions. Facility states: Jevity 1.5 at 55mls/hr with Q4 150 free water flushes continuous feeds. All medications administered through the g-tube. The RN that answered questions about the pt states that she does not know the wound care instructions because they have a wound RN that takes care of that. Ashvin, night RN, passing 1700 meds as we were still clarifying med orders through day shift.
[2025-08-17] MEDS: THIAMINE HCL 100 MG TABLET FEED TUBE (21:47)
[2025-08-17] MEDS: MELATONIN 3 MG TABLET PO (21:47)
[2025-08-17] MEDS: ARTIFICIAL TEARS OPHTH SOLN 15 ML BOTTLE 1 DROP EACH EYE (21:48)
[2025-08-17] MEDS: SODIUM BICARBONATE TAB 650 MG TABLET PO (21:48)
[2025-08-17] MEDS: APIXABAN 2.5 MG TABLET FEED TUBE (21:48)
[2025-08-18] VITALS (11 sets, daily range): BP systolic 100–150; BP diastolic 60–82; PULSE 110–126; RESP 18–20; TEMP 36.3–36.8; O2SAT 100; BMI 19.7
[2025-08-18] MEDS: cefTRIAXone 1 GM in SODIUM CHLORIDE 0.9% IV 50 ML 100 ML IVPB (04:11)
[2025-08-18 06:18] LABS: Hematocrit 29.0 % (37.0-47.0); Hemoglobin 8.5 g/dL (12.0-15.0); Immature Granulocyte Percent A 0.3 % (0-0.5); Lymphocytes Absolute Auto 0.96 K/mm3 (0.9-3.2); Mean Corpuscular HGB Conc 29.3 g/dl (32-36); Mean Corpuscular Hemoglobin 27.6 pg (26-34); Mean Corpuscular Volume 94.2 fl (80-100); Nucleated Red Blood Cells Absolute Auto 0.000 K/mm3 (0.0-0.012); Nucleated Red Blood Cells Perc 0.0 % (0.0-0.2); Platelet Count Result 240 k/mm3 (150-375); Red Blood Count 3.08 M/mm3 (4.2-5.4); White Blood Count 9.7 K/mm3 (4.5-10.0)
[2025-08-18 06:37] LABS: Alanine Aminotransferase 24 U/L (6-35); Albumin Level 3.8 g/dL (3.5-5.1); Alkaline Phosphatase 191 U/L (38-126); Anion Gap 10 mmol/L (4-12); Aspartate Amino Transferase 22 U/L (14-36); Bilirubin,Total 0.3 mg/dL (0.2-1.3); Blood Urea Nitrogen 57 mg/dL (7-17); Calcium 8.9 mg/dL (8.4-10.2); Carbon Dioxide 21 mmol/L (22-30); Chloride 110 mmol/L (98-107); Estimated CRCL calculation 32 ml/min; Estimated Glomerular Filt Rate 40; Glucose 117 mg/dL (65-110); Potassium 4.9 mmol/L (3.4-5.0); Sodium 141 mmol/L (137-145); Total Protein 8.4 g/dL (6.3-8.2)
[2025-08-18 06:54] LABS: Hypochromasia 1+; Schistocytes None Seen
[2025-08-18] MEDS: ARTIFICIAL TEARS OPHTH SOLN 15 ML BOTTLE 1 DROP EACH EYE ×3 (08:29→16:16)
[2025-08-18] MEDS: PREGABALIN (*CRX) 75 MG CAPSULE PO (08:30)
[2025-08-18] MEDS: SODIUM BICARBONATE TAB 650 MG TABLET PO ×2 (08:30→16:16)
[2025-08-18] MEDS: ASCORBIC ACID 250 MG TABLET PO (08:30)
[2025-08-18] MEDS: CITALOPRAM HYDROBROMIDE 20 MG TABLET PO (08:30)
[2025-08-18] MEDS: THIAMINE HCL 100 MG TABLET FEED TUBE ×3 (08:30→16:16)
[2025-08-18] MEDS: FOLIC ACID 1 MG TABLET PO (08:30)
[2025-08-18] MEDS: MULTIVITAMIN HEMATINIC (*BKC) TABLET 1 TABLET PO (08:30)
[2025-08-18] MEDS: APIXABAN 2.5 MG TABLET FEED TUBE ×2 (08:30→20:24)
[2025-08-18] MEDS: SENNOSIDES 8.6 MG TABLET PO (08:30)
[2025-08-18] MEDS: LANSOPRAZOLE ODT 30 MG TAB.RAP.DR PO (08:31)
--- NOTE | 2025-08-18 08:32 | P.PNIM_ITS ---
Progress Note: A&P Assessment and Plan (1) Pneumonia: Code(s): J18.9 - Pneumonia, unspecified organism Status: Acute Assessment and Plan: Atelectasis to the RLL per CT scan. -Continue ceftriaxone & doxy IV -BS clear today, diminished lower lobes -Daily labs (2) UTI (urinary tract infection): Code(s): N39.0 - Urinary tract infection, site not specified Status: Acute Assessment and Plan: Suspected via CT d/t: There is urothelial thickening and enhancement in the left renal collecting system, consistent with pyelitis. Per ED, unable to obtain straight cath due to pt anatomy: BLE contractures. -Continue Rocephin. -Daily labs -UA w/reflex today with fernandez insertion (3) Gastrointestinal tube in situ: Code(s): Z93.1 - Gastrostomy status Status: Acute Assessment and Plan: Pt eats food via mouth, G tube for meds & tube feed -Continuous Jevity 1.5 at 55mls/hr with 150ml free water flushes q4 + Maged (4) Pressure ulcers of skin of multiple topographic sites: Code(s): L89.90 - Pressure ulcer of unspecified site, unspecified stage Status: Chronic Assessment and Plan: Extensive, but denies pain. Hx MS. Contracted throughout body. -Wound following, assessed and re-dressed all wounds today -Fernandez order placed today for optimal healing (5) Schizoaffective disorder: Code(s): F25.9 - Schizoaffective disorder, unspecified Status: Acute (6) Abdominal pain: Code(s): R10.9 - Unspecified abdominal pain Status: Acute Assessment and Plan: GERD vs. fecal impaction vs nausea. Alleviates when turned onto her abd? (performed this to observe all wounds briefly) -Pt reports that this is better today (7) History of pulmonary embolism: Code(s): Z86.711 - Personal history of pulmonary embolism Status: Acute Assessment and Plan: Per last admission note, Pradaxa held since Jun 2025 for possible surgery. -Continue Eliquis 2.5mg BID Plan Plan for daily labs and continued IV abx for PNA/UTI. Wound following. Subjective Date/time seen: 08/18/25 1245 Interval history: Pt resting comfortably in bed, denies sx today other than mild abd discomfort. Review of Systems Review of Systems: All systems reviewed & are unremarkable except as noted in HPI and below Exam Narrative: Contracted full body, cachectic, chronically ill appearing woman Const: General: comfortable and no acute distress Orientation/consciousness: oriented to person HENMT: Face/Nose/Sinus: Normal nares present Other: tacky mucous membranes Eyes: Other: Nystagmus L eye Neck: Neck: supple Resp: Effort & Inspection: normal respiratory effort Auscultation: clear to auscultation bilaterally Other: diminished LS in the bases Cardio: Rate: tachycardic (appears to be chronic) Rhythm: regular rhythm GI: Inspection: non-distended Auscultation: normal bowel sounds Skin: Other: Multiple wounds, refer to wound comprehensive notes. All wounds redressed today. Neuro: General: oriented to person Speech: normal speech Other: Unable to assess strength due to MS contractures, sensation limited in BLE Extrem: Other: 4 limb contracture Psych: Affect: normal affect Judgement: Poor judgement present (Psych) Objective Data Vital Signs Vital Signs: Vital Signs - 24 hr 08/17/25 10:45 08/17/25 11:56 08/17/25 15:29 Temperature 96.9 F L Pulse Rate 101 H 102 H Respiratory Rate 16 Blood Pressure 137/78 Pulse Oximetry 100 100 Oxygen Delivery Room Air 08/17/25 16:00 08/17/25 20:00 08/17/25 20:00 Temperature Pulse Rate 103 H 103 H Respiratory Rate Blood Pressure Pulse Oximetry Oxygen Delivery Room Air 08/17/25 21:49 08/18/25 00:00 08/18/25 00:15 Temperature 97.8 F 97.5 F L Pulse Rate 110 H 113 H 113 H Respiratory Rate 18 18 Blood Pressure 144/83 H 120/82 Pulse Oximetry 100 100 Oxygen Delivery 08/18/25 04:00 08/18/25 04:18 Temperature 98.2 F Pulse Rate 118 H 114 H Respiratory Rate 18 Blood Pressure 150/60 H Pulse Oximetry 100 Oxygen Delivery Intake/Output Intake/Output: Intake & Output 08/15/25 08/16/25 08/17/25 08/18/25 23:59 23:59 23:59 23:59 Intake Total 2368 200 Balance 2368 200 Meds/Results Medications: Active Medications Generic Name Dose Route Start Last Admin Trade Name Freq PRN Reason Stop Dose Admin Acetaminophen 650 mg 08/17/25 14:44 Acetaminophen 325 Mg Tablet PO Q4H PRN pain 1-3 Hydrocodone Bitart/Acetaminophen 1 tab 08/17/25 14:44 Hydrocodone/Acetaminophen (*Crx) 5-325 Mg Tablet PO Q6H PRN Pain 4-6 Amlodipine Besylate 10 mg 08/18/25 09:00 Amlodipine Besylate 10 Mg Tablet FEED TUBE DAILY [facility] Apixaban 2.5 mg 08/17/25 21:00 08/17/25 21:48 Apixaban 2.5 Mg Tablet FEED TUBE 2.5 mg Q12HR [facility] Administration Artificial Tears 1 drop 08/17/25 17:00 08/17/25 21:48 Artificial Tears Ophth Soln 15 Ml Bottle EACH EYE 1 drop TID [facility] Administration Ascorbic Acid 250 mg 08/18/25 09:00 Ascorbic Acid 250 Mg Tablet PO DAILY [facility] Bisacodyl 10 mg 08/18/25 08:27 Bisacodyl 10 Mg Suppository RECTAL DAILY PRN Constipation Citalopram Hydrobromide 20 mg 08/18/25 09:00 Citalopram Hydrobromide 20 Mg Tablet PO DAILY [facility] Folic Acid 1 mg 08/18/25 09:00 Folic Acid 1 Mg Tablet PO DAILY [facility] Ceftriaxone Sodium 1 gm/ 50 mls @ 100 mls/hr 08/18/25 04:00 08/18/25 04:11 Sodium Chloride IVPB 100 mls/hr Q24H [facility] Administration Doxycycline Hyclate 100 mg/ 100 mls @ 100 mls/hr 08/17/25 20:00 08/17/25 2 1:48 Sodium Chloride IVPB 08/21/25 20:59 100 mls/hr Q12H [facility] Administration Ipratropium [place] 0.25 mg 08/17/25 14:44 Ipratropium Br 0.02% Inh Soln 0.5 Mg/2.5 Ml Vial INHALATION DAILY PRN Shortness Of Breath Or Wheezing Lansoprazole 30 mg 08/18/25 09:00 Lansoprazole Odt 30 Mg Tab.Rap.Dr PO DAILY [facility] Melatonin 3 mg 08/17/25 21:00 08/17/25 21:47 Melatonin 3 Mg Tablet PO 3 mg HS [facility] Administration Metoprolol Succinate 50 mg 08/17/25 17:00 Metoprolol Succinate Ext Rel 50 Mg Tabcr PO TID [facility] Miscellaneous Information 0 each 08/17/25 00:01 Metoprolol Er 24 Hour Clarify Tid Dosing Or Does Pt Take 3 Tablets (150mg) As One Dose? XX 09/16/25 00:00 CLARIFY [facility] Multivitamin Hematinic Therapeutic 1 tablet 08/18/25 09:00 Multivitamin Hematinic (*Bkc) Tablet PO DAILY [facility] Non-Formulary Medication 1 each 08/18/25 09:00 Lfkdtniq-Urngqabpo-Mlnwegm Hmb [Maged] PO 09/17/25 08:59 BID [facility] Non-Formulary Medication 1,000 units 08/18/25 09:00 Cholecalciferol (Vitamin D3) FEED TUBE 09/17/25 08:59 DAILY [facility] Ondansetron HCl 4 mg 08/17/25 14:44 Ondansetron Hcl Odt 4 Mg Tablet PO QID PRN Nausea And Vomiting Polyethylene Glycol 17 gm 08/18/25 09:00 Polyethylene Glycol 3350 17 Gm Powd.Pack PO QAM [facility] Pregabalin 75 mg 08/18/25 09:00 Pregabalin (*Crx) 75 Mg Capsule PO DAILY [facility] Senna 8.6 mg 08/18/25 09:00 Sennosides 8.6 Mg Tablet PO DAILY [facility] Sodium Bicarbonate 650 mg 08/17/25 17:00 08/17/25 21:48 Sodium Bicarbonate Tab 650 Mg Tablet PO 650 mg BID [facility] Administration Thiamine HCl 100 mg 08/17/25 17:00 08/17/25 21:47 Thiamine Hcl 100 Mg Tablet FEED TUBE 100 mg TID [facility] Administration Trazodone HCl 50 mg 08/17/25 21:00 08/17/25 21:48 Trazodone Hcl 50 Mg Tablet PO 50 mg HS [facility] Administration Radiology Results: ITS Impressions Chest X-Ray 08/17/25 08:15 IMPRESSION: 1. Portable chest x-ray with no gross interval change compared to the July 03 chest x-ray. Exam somewhat limited as above. Chest/Abdomen/Pelvis CTA 08/17/25 08:16 IMPRESSION: 1. No pulmonary embolus. 2. Left-sided pyelitis. 3. Stool-filled distended rectosigmoid. 4. Decubitus ulcers superficial to the sacrum and ischial tuberosities. No specific evidence of acute osteomyelitis. Labs Labs: Laboratory Results - last 24 hr 08/18/25 06:00 WBC 9.7 RBC 3.08 L Hgb 8.5 L Hct 29.0 L MCV 94.2 MCH 27.6 MCHC 29.3 L RDW 15.5 H Plt Count 240 MPV 10.4 Immature Gran % (Auto) 0.3 Neut % (Auto) 83.2 H Lymph % (Auto) 9.9 L [place] % (Auto) 4.8 Eos % (Auto) 1.5 Baso % (Auto) 0.3 Lymph # (Auto) 0.96 [place] # (Auto) 0.5 Eos # (Auto) 0.2 Baso # (Auto) 0.0 Abs Immat Gran (auto) 0.03 Absolute Neuts (auto) 8.1 H Absolute Nucleated RBC 0.000 Band Neutrophils % Not Reportable Nucleated RBC % 0.0 Platelet Estimate Adequate Hypochromasia 1+ Schistocytes None seen Sodium 141 Potassium 4.9 Chloride 110 H Carbon Dioxide 21 L Anion Gap 10 BUN 57 H Creatinine 1.36 H Estim Creat Clear Calc 32 Estimated GFR 40 L Glucose 117 H Calcium 8.9 Total Bilirubin 0.3 AST 22 ALT 24 Alkaline Phosphatase 191 H Total Protein 8.4 H Albumin 3.8 Quality VTE Prophylaxis VTE prophylaxis: pharmacologic ordered (Home Eliquis 2.5mg Q 12 hr)
[2025-08-18] MEDS: DOXYCYCLINE IV 100 MG in SODIUM CHLORIDE 0.9% IV 100 ML IVPB ×2 (08:33→20:17)
[2025-08-18] MEDS: CHOLECALCIFEROL (VITAMIN D3) 25 MCG (1,000 UNITS) TABLET FEED TUBE (08:45)
[2025-08-18] MEDS: MELATONIN 3 MG TABLET PO (20:24)
[2025-08-18 20:43] LABS: Add Urine Microscopic? YES; Appearance Urine Clear (Clear); Glucose Urine UA Negative (Negative); Leukocyte Esterase Ur 2+ LEU/UL (Negative); Nitrate Urine Negative (Negative); Specific Grav Ur 1.019 (1.001-1.035)
[2025-08-19] VITALS (9 sets, daily range): BP systolic 107–120; BP diastolic 72–84; PULSE 71–121; RESP 18–20; TEMP 35.9–36.4; O2SAT 91–100
[2025-08-19] MEDS: HYDROcodone/acetaminophen (*CRX) 5-325 MG TABLET 1 TAB PO ×2 (00:26→12:32)
[2025-08-19] MEDS: cefTRIAXone 1 GM in SODIUM CHLORIDE 0.9% IV 50 ML 100 ML IVPB (04:44)
[2025-08-19] MEDS: DOXYCYCLINE IV 100 MG in SODIUM CHLORIDE 0.9% IV 100 ML IVPB ×2 (07:54→20:10)
[2025-08-19] MEDS: ARTIFICIAL TEARS OPHTH SOLN 15 ML BOTTLE 1 DROP EACH EYE ×3 (07:58→16:35)
[2025-08-19] MEDS: CITALOPRAM HYDROBROMIDE 20 MG TABLET PO (08:00)
[2025-08-19] MEDS: MULTIVITAMIN HEMATINIC (*BKC) TABLET 1 TABLET PO (08:00)
[2025-08-19] MEDS: FOLIC ACID 1 MG TABLET PO (08:00)
[2025-08-19] MEDS: CHOLECALCIFEROL (VITAMIN D3) 25 MCG (1,000 UNITS) TABLET FEED TUBE (08:00)
[2025-08-19] MEDS: PREGABALIN (*CRX) 75 MG CAPSULE PO (08:00)
[2025-08-19] MEDS: SODIUM BICARBONATE TAB 650 MG TABLET PO ×2 (08:00→16:35)
[2025-08-19] MEDS: APIXABAN 2.5 MG TABLET FEED TUBE ×2 (08:01→20:10)
[2025-08-19] MEDS: THIAMINE HCL 100 MG TABLET FEED TUBE ×3 (08:01→16:35)
[2025-08-19] MEDS: ASCORBIC ACID 250 MG TABLET PO (08:01)
[2025-08-19] MEDS: LANSOPRAZOLE ODT 30 MG TAB.RAP.DR PO (08:01)
[2025-08-19] MEDS: SENNOSIDES 8.6 MG TABLET PO (08:09)
[2025-08-19 08:20] LABS: Hematocrit 29.4 % (37.0-47.0); Hemoglobin 8.8 g/dL (12.0-15.0); Immature Granulocyte Percent A 0.5 % (0-0.5); Lymphocytes Absolute Auto 1.38 K/mm3 (0.9-3.2); Mean Corpuscular HGB Conc 29.9 g/dl (32-36); Mean Corpuscular Hemoglobin 28.1 pg (26-34); Mean Corpuscular Volume 93.9 fl (80-100); Nucleated Red Blood Cells Absolute Auto 0.000 K/mm3 (0.0-0.012); Nucleated Red Blood Cells Perc 0.0 % (0.0-0.2); Platelet Count Result 222 k/mm3 (150-375); Red Blood Count 3.13 M/mm3 (4.2-5.4); White Blood Count 8.0 K/mm3 (4.5-10.0)
[2025-08-19 08:55] LABS: Hypochromasia 1+
[2025-08-19 08:57] LABS: Anisocytosis Occasional; Schistocytes None Seen
[2025-08-19 09:00] LABS: Alanine Aminotransferase 19 U/L (6-35); Albumin Level 3.7 g/dL (3.5-5.1); Alkaline Phosphatase 185 U/L (38-126); Anion Gap 9 mmol/L (4-12); Aspartate Amino Transferase 27 U/L (14-36); Bilirubin,Total 0.3 mg/dL (0.2-1.3); Blood Urea Nitrogen 64 mg/dL (7-17); Calcium 8.6 mg/dL (8.4-10.2); Carbon Dioxide 23 mmol/L (22-30); Chloride 107 mmol/L (98-107); Estimated CRCL calculation 32 ml/min; Estimated Glomerular Filt Rate 40; Glucose 104 mg/dL (65-110); Potassium 4.8 mmol/L (3.4-5.0); Sodium 139 mmol/L (137-145); Total Protein 8.2 g/dL (6.3-8.2)
--- NOTE | 2025-08-19 12:50 | PM.IMPN ---
Progress Note: A&P Assessment and Plan (1) Generalized anxiety disorder: Code(s): F41.1 - Generalized anxiety disorder Status: Acute (2) Essential (primary) hypertension: Code(s): I10 - Essential (primary) hypertension Status: Acute (3) Sinus tachycardia: Code(s): R00.0 - Tachycardia, unspecified Status: Acute (4) Abdominal pain: Code(s): R10.9 - Unspecified abdominal pain Status: Acute (5) Stage 3 chronic kidney disease: Code(s): N18.30 - Chronic kidney disease, stage 3 unspecified Status: Chronic (6) UTI (urinary tract infection): Code(s): N39.0 - Urinary tract infection, site not specified Status: Acute Plan 60-year-old female with past medical history of debility, contractures, and multiple decub ulcers 2/2 MS to the ED on 08/16/2025 with abdominal pain from her [facility] Har[facility].Pt is a poor historian. Pt was recently here at the end of July and transferred to [facility] for a second opinion for potential RLE amputation. Amputation did not take place Patient was admitted for possible pneumonia and UTI (1) Pneumonia: Atelectasis to the RLL per CT scan. -Continue ceftriaxone & doxy IV (2) UTI (urinary tract infection): Continue with ceftriaxone Follow-up urine culture (3) Gastrointestinal tube in situ: Pt eats food via mouth, G tube for meds & tube feed -Continuous Jevity 1.5 at 55mls/hr with 150ml free water flushes q4 + Maged (4) Pressure ulcers of skin of multiple topographic sites: Extensive, but denies pain. History of MS, extensive contractures Wound care following (5) Schizoaffective disorder: Monitor (6) Abdominal pain: Constipation has resolved (7) History of pulmonary embolism: Currently on Eliquis 2.5 mg b.i.d. 8. Code status: Full 9. DVT prophylaxis: Eliquis 10. Disposition: Pending improvement Time Spent With Patient Time: 39 mins Subjective Date/time seen: 08/19/25 12:50 Interval history: No acute events overnight Review of Systems Review of Systems: All systems reviewed & are unremarkable except as noted in HPI and below Exam Narrative: Contracted full body, cachectic, chronically ill appearing woman Const: General: comfortable HENMT: Face/Nose/Sinus: Normal nares present Neck: Neck: supple Resp: Auscultation: clear to auscultation bilaterally Other: diminished LS in the bases Cardio: Rate: tachycardic (appears to be chronic) Rhythm: regular rhythm GI: Inspection: non-distended Auscultation: normal bowel sounds Neuro: General: oriented to person Speech: normal speech Other: Unable to assess strength due to MS contractures, sensation limited in BLE Extrem: Other: 4 limb contracture Psych: Affect: normal affect Judgement: Poor judgement present (Psych) Objective Data Vital Signs Vital Signs: Vital Signs - 24 hr 08/18/25 14:00 08/18/25 16:01 08/18/25 20:00 Temperature 97.7 F Pulse Rate 117 H 110 H 124 H Respiratory Rate 20 Blood Pressure 100/70 Pulse Oximetry 100 Oxygen Delivery 08/18/25 20:53 08/18/25 22:16 08/19/25 00:00 Temperature 97.4 F L Pulse Rate 126 H 121 H Respiratory Rate 18 Blood Pressure 109/81 Pulse Oximetry 100 100 Oxygen Delivery Room Air 08/19/25 04:00 08/19/25 06:00 08/19/25 08:02 Temperature 97.5 F L Pulse Rate 95 118 H 107 H Respiratory Rate 18 18 Blood Pressure 113/84 Pulse Oximetry 100 100 Oxygen Delivery Room Air 08/19/25 08:02 Temperature Pulse Rate 118 H Respiratory Rate Blood Pressure Pulse Oximetry Oxygen Delivery Intake/Output Intake/Output: Intake & Output 08/16/25 08/17/25 08/18/25 08/19/25 23:59 23:59 23:59 23:59 Intake Total 2468 510 150 Output Total 150 300 Balance 2468 360 -150 Meds/Results Medications: Active Medications Generic Name Dose Route Start Last Admin Trade Name Freq PRN Reason Stop Dose Admin Acetaminophen 650 mg 08/17/25 14:44 Acetaminophen 325 Mg Tablet PO Q4H PRN pain 1-3 Hydrocodone Bitart/Acetaminophen 1 tab 08/17/25 14:44 08/19/25 12:32 Hydrocodone/Acetaminophen (*Crx) 5-325 Mg Tablet PO 1 tab Q6H PRN Administration Pain 4-6 Amlodipine Besylate 10 mg 08/18/25 09:00 08/19/25 08:00 Amlodipine Besylate 10 Mg Tablet FEED TUBE 10 mg DAILY [facility] Administration Apixaban 2.5 mg 08/17/25 21:00 08/19/25 08:01 Apixaban 2.5 Mg Tablet FEED TUBE 2.5 mg Q12HR [facility] Administration Artificial Tears 1 drop 08/17/25 17:00 08/19/25 12:07 Artificial Tears Ophth Soln 15 Ml Bottle EACH EYE 1 drop TID [facility] Administration Ascorbic Acid 250 mg 08/18/25 09:00 08/19/25 08:01 Ascorbic Acid 250 Mg Tablet PO 250 mg DAILY [facility] Administration Bisacodyl 10 mg 08/18/25 08:27 Bisacodyl 10 Mg Suppository RECTAL DAILY PRN Constipation Citalopram Hydrobromide 20 mg 08/18/25 09:00 08/19/25 08:00 Citalopram Hydrobromide 20 Mg Tablet PO 20 mg DAILY [facility] Administration Folic Acid 1 mg 08/18/25 09:00 08/19/25 08:00 Folic Acid 1 Mg Tablet PO 1 mg DAILY [facility] Administration Ceftriaxone Sodium 1 gm/ 50 mls @ 100 mls/hr 08/18/25 04:00 08/19/25 05:15 Sodium Chloride IVPB Infused Q24H [facility] Infusion Doxycycline Hyclate 100 mg/ 100 mls @ 100 mls/hr 08/17/25 20:00 08/19/25 08:54 Sodium Chloride IVPB 08/21/25 20:59 Infused Q12H [facility] Infusion Ipratropium [place] 0.25 mg 08/17/25 14:44 Ipratropium Br 0.02% Inh Soln 0.5 Mg/2.5 Ml Vial INHALATION DAILY PRN Shortness Of Breath Or Wheezing Lansoprazole 30 mg 08/18/25 09:00 08/19/25 08:01 Lansoprazole Odt 30 Mg Tab.Rap.Dr PO 30 mg DAILY [facility] Administration Melatonin 3 mg 08/17/25 21:00 08/18/25 20:24 Melatonin 3 Mg Tablet PO 3 mg HS [facility] Administration Metoprolol Succinate 50 mg 08/17/25 17:00 Metoprolol Succinate Ext Rel 50 Mg Tabcr PO TID [facility] Miscellaneous Information 0 each 08/17/25 00:01 Metoprolol Er 24 Hour Clarify Tid Dosing Or Does Pt Take 3 Tablets (150mg) As One Dose? XX 09/16/25 00:00 CLARIFY [facility] Multivitamin Hematinic Therapeutic 1 tablet 08/18/25 09:00 08/19/25 08:00 Multivitamin Hematinic (*Bkc) Tablet PO 1 tablet DAILY [facility] Administration Ondansetron HCl 4 mg 08/17/25 14:44 Ondansetron Hcl Odt 4 Mg Tablet PO QID PRN Nausea And Vomiting Polyethylene Glycol 17 gm 08/18/25 09:00 08/19/25 08:09 Polyethylene Glycol 3350 17 Gm Powd.Pack PO 17 gm QAM [facility] Administration Pregabalin 75 mg 08/18/25 09:00 08/19/25 08:00 Pregabalin (*Crx) 75 Mg Capsule PO 75 mg DAILY [facility] Administration Senna 8.6 mg 08/18/25 09:00 08/19/25 08:09 Sennosides 8.6 Mg Tablet PO 8.6 mg DAILY [facility] Administration Sodium Bicarbonate 650 mg 08/17/25 17:00 08/19/25 08:00 Sodium Bicarbonate Tab 650 Mg Tablet PO 650 mg BID [facility] Administration Thiamine HCl 100 mg 08/17/25 17:00 08/19/25 12:07 Thiamine Hcl 100 Mg Tablet FEED TUBE 100 mg TID [facility] Administration Trazodone HCl 50 mg 08/17/25 21:00 08/18/25 20:24 Trazodone Hcl 50 Mg Tablet PO 50 mg HS [facility] Administration Vitamin D 25 mcg 08/18/25 09:00 08/19/25 08:00 Cholecalciferol (Vitamin D3) 25 Mcg (1,000 Units) Tablet FEED TUBE 25 mcg DAILY [facility] Administration Radiology Results: ITS Impressions Chest X-Ray 08/17/25 08:15 IMPRESSION: 1. Portable chest x-ray with no gross interval change compared to the July 03 chest x-ray. Exam somewhat limited as above. Chest/Abdomen/Pelvis CTA 08/17/25 08:16 IMPRESSION: 1. No pulmonary embolus. 2. Left-sided pyelitis. 3. Stool-filled distended rectosigmoid. 4. Decubitus ulcers superficial to the sacrum and ischial tuberosities. No specific evidence of acute osteomyelitis. Labs Labs: Laboratory Results - last 24 hr 08/18/25 08/19/25 19:54 07:04 WBC 8.0 RBC 3.13 L Hgb 8.8 L Hct 29.4 L MCV 93.9 MCH 28.1 MCHC 29.9 L RDW 15.4 H Plt Count 222 MPV 10.6 H Immature Gran % (Auto) 0.5 Neut % (Auto) 72.5 Lymph % (Auto) 17.3 L [place] % (Auto) 6.5 Eos % (Auto) 3.1 Baso % (Auto) 0.1 L Lymph # (Auto) 1.38 [place] # (Auto) 0.5 Eos # (Auto) 0.3 Baso # (Auto) 0.0 Abs Immat Gran (auto) 0.04 H Absolute Neuts (auto) 5.8 Absolute Nucleated RBC 0.000 Band Neutrophils % Not Reportable Nucleated RBC % 0.0 Platelet Estimate Adequate Large Platelets Present Hypochromasia 1+ Anisocytosis Occasional Schistocytes None seen Sodium 139 Potassium 4.8 Chloride 107 Carbon Dioxide 23 Anion Gap 9 BUN 64 H Creatinine 1.34 H Estim Creat Clear Calc 32 Estimated GFR 40 L Glucose 104 Calcium 8.6 Total Bilirubin 0.3 AST 27 ALT 19 Alkaline Phosphatase 185 H Total Protein 8.2 Albumin 3.7 Urine Color Yellow Urine Appearance Clear Urine pH 7.5 Ur Specific [place] 1.019 Urine Protein 3+ H Urine Glucose (UA) Negative Urine Ketones Negative Ur Blood (Man) 2+ H Urine Nitrate Negative Urine Bilirubin Negative Urine Urobilinogen 1.0 Leukocyte Esterase Rfl 2+ H Urine RBC 51-100 H Urine WBC 21-50 H Ur Squamous Epith Cells None seen Urine Bacteria None seen Urine Casts 3-5 Quality VTE Prophylaxis VTE prophylaxis: pharmacologic ordered
[2025-08-19] MEDS: METOPROLOL TARTRATE 50 MG TAB FEED TUBE (20:10)
[2025-08-19] MEDS: MELATONIN 3 MG TABLET PO (20:10)
[2025-08-20] VITALS (10 sets, daily range): BP systolic 102–123; BP diastolic 61–87; PULSE 76–105; RESP 16–20; TEMP 36.1–36.3; O2SAT 100
[2025-08-20] MEDS: cefTRIAXone 1 GM in SODIUM CHLORIDE 0.9% IV 50 ML 100 ML IVPB (04:31)
--- NOTE | 2025-08-20 06:14 | PC.NURSE ---
patient feeding tube occluded, unable to flush, multiple attempts by this RN and plastic sheeting cutter. MD Mary Beth Johnson notified. Feeding stopped at 0128, new order for GI consult received and placed.
[2025-08-20] MEDS: METOPROLOL TARTRATE 50 MG TAB FEED TUBE ×2 (08:42→20:35)
[2025-08-20] MEDS: PREGABALIN (*CRX) 75 MG CAPSULE PO (08:42)
[2025-08-20] MEDS: ARTIFICIAL TEARS OPHTH SOLN 15 ML BOTTLE 1 DROP EACH EYE ×3 (08:43→16:28)
[2025-08-20] MEDS: DOXYCYCLINE IV 100 MG in SODIUM CHLORIDE 0.9% IV 100 ML IVPB ×2 (08:47→20:33)
[2025-08-20 09:00] LABS: Hematocrit 30.0 % (37.0-47.0); Hemoglobin 9.3 g/dL (12.0-15.0); Immature Granulocyte Percent A 0.2 % (0-0.5); Lymphocytes Absolute Auto 0.83 K/mm3 (0.9-3.2); Mean Corpuscular HGB Conc 31.0 g/dl (32-36); Mean Corpuscular Hemoglobin 28.4 pg (26-34); Mean Corpuscular Volume 91.7 fl (80-100); Nucleated Red Blood Cells Absolute Auto 0.000 K/mm3 (0.0-0.012); Nucleated Red Blood Cells Perc 0.0 % (0.0-0.2); Platelet Count Result 220 k/mm3 (150-375); Red Blood Count 3.27 M/mm3 (4.2-5.4); White Blood Count 8.2 K/mm3 (4.5-10.0)
[2025-08-20 09:11] LABS: Alanine Aminotransferase 20 U/L (6-35); Albumin Level 3.9 g/dL (3.5-5.1); Alkaline Phosphatase 176 U/L (38-126); Anion Gap 7 mmol/L (4-12); Aspartate Amino Transferase 24 U/L (14-36); Bilirubin,Total 0.3 mg/dL (0.2-1.3); Blood Urea Nitrogen 57 mg/dL (7-17); Calcium 8.7 mg/dL (8.4-10.2); Carbon Dioxide 24 mmol/L (22-30); Chloride 108 mmol/L (98-107); Estimated CRCL calculation 37 ml/min; Estimated Glomerular Filt Rate 48; Glucose 98 mg/dL (65-110); Potassium 5.1 mmol/L (3.4-5.0); Sodium 139 mmol/L (137-145); Total Protein 8.8 g/dL (6.3-8.2)
--- NOTE | 2025-08-20 13:06 | P.PNIM_ITS ---
Progress Note: A&P Assessment and Plan (1) Generalized anxiety disorder: Code(s): F41.1 - Generalized anxiety disorder Status: Acute (2) Essential (primary) hypertension: Code(s): I10 - Essential (primary) hypertension Status: Acute (3) Sinus tachycardia: Code(s): R00.0 - Tachycardia, unspecified Status: Acute (4) Abdominal pain: Code(s): R10.9 - Unspecified abdominal pain Status: Acute (5) Stage 3 chronic kidney disease: Code(s): N18.30 - Chronic kidney disease, stage 3 unspecified Status: Chronic (6) UTI (urinary tract infection): Code(s): N39.0 - Urinary tract infection, site not specified Status: Acute Plan 60-year-old female with past medical history of debility, contractures, and multiple decub ulcers 2/2 MS to the ED on 08/16/2025 with abdominal pain from her [facility].Pt is a poor historian. Pt was recently here at the end of July and transferred to [facility] for a second opinion for potential RLE amputation. Amputation did not take place Patient was admitted for possible pneumonia and UTI (1) Pneumonia: Atelectasis to the RLL per CT scan. -Continue ceftriaxone & doxy IV Follow culture result (2) UTI (urinary tract infection): Continue with ceftriaxone Follow-up urine culture (3) Gastrointestinal tube in situ: Pt eats food via mouth, G tube for meds & tube feed Tube feeding is not working. GI team on board. -Continuous Jevity 1.5 at 55mls/hr with 150ml free water flushes q4 + Maged (4) Pressure ulcers of skin of multiple topographic sites: Extensive, but denies pain. History of MS, extensive contractures Wound care following (5) Schizoaffective disorder: Monitor (6) Abdominal pain: Constipation has resolved (7) History of pulmonary embolism: Currently on Eliquis 2.5 mg b.i.d. 8. Code status: Full 9. DVT prophylaxis: Eliquis 10. Disposition: Pending improvement Subjective Date/time seen: 08/20/25 13:06 Interval history: per HPI: Pt with a hx of debility, contractures, and multiple decub ulcers 2/2 MS to the ED on 08/16/2025 c/p abd pain from her [facility]. Today pt reporting a burning type GERD upper abd pain with potential nausea she cannot definitively differentiate the two; when turned on her side during wound assessment, she reports alleviated abd pain. Pt is a poor historian. Pt was recently here at the end of July and transferred to [facility] for a second opinion for potential RLE amputation. Amputation did not take place, wounds evaluated today with me as well as wound, none looking acutely infected but all in advanced stages. Pt denies SOB but endorses CP when asked if she is having chest pain and but cannot describe the cp. Her white count is noted to be 14, which is down trending from her initial labs in the ED (15.3). Her H&H is 9.1 and 29.8, these are slightly higher than her baseline. Her potassium was found to be 4.9 Her BUN 59 and creatinine 1.19. Her GFR is 46. WBC 14 (down from 15.3 in the ED), continue ceftriaxone and doxy for PNA and possible UTI. 08/20/25 Patient was seen and examined at bedside. She is feeling fine. Denies any chest pain, shortness off breath. Feeding tube was not working. GI team on board. Plan for tube placement today. Reviewed lab test. WBC 8. Continue treatment for pneumonia and UTI. Continue Rocephin and doxycycline. Follow urine culture results Review of Systems Review of Systems: All systems reviewed & are unremarkable except as noted in HPI and below Exam Narrative: Contracted full body, cachectic, chronically ill appearing woman Const: General: comfortable and no acute distress Orientation/consciousness: oriented to person HENMT: Face/Nose/Sinus: Normal nares present Other: tacky mucous membranes Eyes: Other: Nystagmus L eye Neck: Neck: supple Resp: Effort & Inspection: normal respiratory effort Auscultation: clear to auscultation bilaterally Other: diminished LS in the bases Cardio: Rate: tachycardic (appears to be chronic) Rhythm: regular rhythm GI: Inspection: non-distended Auscultation: normal bowel sounds : External Female Exam: normal external appearance Other: observed during wound exam/cleaning up pt Skin: Other: Multiple wounds, refer to wound comprehensive notes. All wounds redressed today. Neuro: General: oriented to person Speech: normal speech Other: Unable to assess strength due to MS contractures, sensation limited in BLE Extrem: Other: 4 limb contracture Psych: Affect: normal affect Judgement: Poor judgement present (Psych) Objective Data Vital Signs Vital Signs: Vital Signs - 24 hr 08/19/25 14:00 08/19/25 16:01 08/19/25 20:10 Temperature 96.6 F L Pulse Rate 71 100 98 Respiratory Rate 20 Blood Pressure 107/72 Pulse Oximetry 91 Oxygen Delivery 08/19/25 20:15 08/20/25 06:00 08/20/25 08:00 Temperature 97.6 F 97.3 F L Pulse Rate 103 H 87 93 Respiratory Rate 18 20 Blood Pressure 120/77 123/87 Pulse Oximetry 100 100 Oxygen Delivery 08/20/25 08:42 08/20/25 08:43 Temperature Pulse Rate 90 Respiratory Rate 20 Blood Pressure Pulse Oximetry 100 Oxygen Delivery Room Air Intake/Output Intake/Output: Intake & Output 08/17/25 08/18/25 08/19/25 08/20/25 23:59 23:59 23:59 23:59 Intake Total 2468 510 1225 990 Output Total 150 300 100 Balance 2468 360 925 890 Meds/Results Medications: Active Medications Generic Name Dose Route Start Last Admin Trade Name Freq PRN Reason Stop Dose Admin Acetaminophen 650 mg 08/17/25 14:44 Acetaminophen 325 Mg Tablet PO Q4H PRN pain 1-3 Hydrocodone Bitart/Acetaminophen 1 tab 08/17/25 14:44 08/19/25 12:32 Hydrocodone/Acetaminophen (*Crx) 5-325 Mg Tablet PO 1 tab Q6H PRN Administration Pain 4-6 Amlodipine Besylate 10 mg 08/18/25 09:00 08/20/25 08:45 Amlodipine Besylate 10 Mg Tablet FEED TUBE 10 mg DAILY MERLYN Administration Apixaban 2.5 mg 08/17/25 21:00 08/20/25 08:45 Apixaban 2.5 Mg Tablet FEED TUBE Not Given Q12HR MERLYN Artificial Tears 1 drop 08/17/25 17:00 08/20/25 12:24 Artificial Tears Ophth Soln 15 Ml Bottle EACH EYE 1 drop TID MERLYN Administration Ascorbic Acid 250 mg 08/18/25 09:00 08/20/25 08:44 Ascorbic Acid 250 Mg Tablet PO Not Given DAILY MERLYN Bisacodyl 10 mg 08/18/25 08:27 Bisacodyl 10 Mg Suppository RECTAL DAILY PRN Constipation Citalopram Hydrobromide 20 mg 08/18/25 09:00 08/20/25 08:44 Citalopram Hydrobromide 20 Mg Tablet PO Not Given DAILY MERLYN Folic Acid 1 mg 08/18/25 09:00 08/20/25 08:44 Folic Acid 1 Mg Tablet PO Not Given DAILY MERLYN Ceftriaxone Sodium 1 gm/ 50 mls @ 100 mls/hr 08/18/25 04:00 08/20/25 04:31 Sodium Chloride IVPB 100 mls/hr Q24H MERLYN Administration Doxycycline Hyclate 100 mg/ 100 mls @ 100 mls/hr 08/17/25 20:00 08/20/25 09:47 Sodium Chloride IVPB 08/21/25 20:59 Infused Q12H [facility] Infusion Ipratropium Firth 0.25 mg 08/17/25 14:44 Ipratropium Br 0.02% Inh Soln 0.5 Mg/2.5 Ml Vial INHALATION DAILY PRN Shortness Of Breath Or Wheezing Lansoprazole 30 mg 08/18/25 09:00 08/20/25 08:45 Lansoprazole Odt 30 Mg Tab.Rap.Dr PO Not Given DAILY [facility] Melatonin 3 mg 08/17/25 21:00 08/19/25 20:10 Melatonin 3 Mg Tablet PO 3 mg HS [facility] Administration Metoprolol Tartrate 50 mg 08/19/25 21:00 08/20/25 08:42 Metoprolol Tartrate 50 Mg Tab FEED TUBE 50 mg Q12HR [facility] Administration Multivitamin Hematinic Therapeutic 1 tablet 08/18/25 09:00 08/20/25 08:46 Multivitamin Hematinic (*Bkc) Tablet PO Not Given DAILY [facility] Ondansetron HCl 4 mg 08/17/25 14:44 Ondansetron Hcl Odt 4 Mg Tablet PO QID PRN Nausea And Vomiting Polyethylene Glycol 17 gm 08/18/25 09:00 08/20/25 08:46 Polyethylene Glycol 3350 17 Gm Powd.Pack PO Not Given QAM [facility] Pregabalin 75 mg 08/18/25 09:00 08/20/25 08:42 Pregabalin (*Crx) 75 Mg Capsule PO 75 mg DAILY [facility] Administration Senna 8.6 mg 08/18/25 09:00 08/20/25 08:46 Sennosides 8.6 Mg Tablet PO Not Given DAILY [facility] Sodium Bicarbonate 650 mg 08/17/25 17:00 08/20/25 08:46 Sodium Bicarbonate Tab 650 Mg Tablet PO Not Given BID MERLYN Thiamine HCl 100 mg 08/17/25 17:00 08/20/25 12:25 Thiamine Hcl 100 Mg Tablet FEED TUBE Not Given TID MERLYN Trazodone HCl 50 mg 08/17/25 21:00 08/19/25 20:10 Trazodone Hcl 50 Mg Tablet PO 50 mg HS MERLYN Administration Vitamin D 25 mcg 08/18/25 09:00 08/20/25 08:44 Cholecalciferol (Vitamin D3) 25 Mcg (1,000 Units) Tablet FEED TUBE Not Given DAILY [facility] Radiology Results: ITS Impressions Chest X-Ray 08/17/25 08:15 IMPRESSION: 1. Portable chest x-ray with no gross interval change compared to the July 03 chest x-ray. Exam somewhat limited as above. Chest/Abdomen/Pelvis CTA 08/17/25 08:16 IMPRESSION: 1. No pulmonary embolus. 2. Left-sided pyelitis. 3. Stool-filled distended rectosigmoid. 4. Decubitus ulcers superficial to the sacrum and ischial tuberosities. No specific evidence of acute osteomyelitis. Labs Labs: Laboratory Results - last 24 hr 08/20/25 08:50 WBC 8.2 RBC 3.27 L Hgb 9.3 L Hct 30.0 L MCV 91.7 MCH 28.4 MCHC 31.0 L RDW 14.9 H Plt Count 220 MPV 10.1 Immature Gran % (Auto) 0.2 Neut % (Auto) 81.6 H Lymph % (Auto) 10.1 L [place] % (Auto) 4.5 Eos % (Auto) 3.4 Baso % (Auto) 0.2 Lymph # (Auto) 0.83 L [place] # (Auto) 0.4 Eos # (Auto) 0.3 Baso # (Auto) 0.0 Abs Immat Gran (auto) 0.02 Absolute Neuts (auto) 6.7 Absolute Nucleated RBC 0.000 Nucleated RBC % 0.0 Sodium 139 Potassium 5.1 H Chloride 108 H Carbon Dioxide 24 Anion Gap 7 BUN 57 H Creatinine 1.16 H Estim Creat Clear Calc 37 Estimated GFR 48 L Glucose 98 Calcium 8.7 Total Bilirubin 0.3 AST 24 ALT 20 Alkaline Phosphatase 176 H Total Protein 8.8 H Albumin 3.9 Quality VTE Prophylaxis VTE prophylaxis: pharmacologic ordered
--- NOTE | 2025-08-20 16:45 | WPDGICN ---
Assessment and Plan Assessment and plan (1) PEG tube malfunction: Code(s): K94.23 - Gastrostomy malfunction Status: Acute Assessment and Plan: 20 F gastrostomy tube clogged removed, and replaced by a new tube, same diameter. GI Consult Note Consult date/time: 08/20/25 16:45 Reason for consult: Peg tube malfunction HPI: Yesenia Perez is a 60 year old female who is dependent on tube feedings secondary to advanced MS. The nursing staff have been trying to unclog the tube since last night, and successfully. The reason for consultation is for gastrostomy tube change. Review of Systems Review of Systems: All systems reviewed & are unremarkable except as noted in HPI and below PMFSH Past Medical History Medical History Multiple sclerosis Gastrointestinal tube in situ Chronic kidney disease, stage 3 Anorexia Malnutrition Pulmonary embolism (2014) Xanthogranulomatous pyelonephritis MRSA infection Urinary tract infection due to extended-spectrum beta lactamase (ESBL) producing Escherichia coli Chronic respiratory failure with hypoxia, on home oxygen therapy Previously documented that the patient is oxygen dependent on 4 L nasal cannula however she denies and is on room air with good SpO2 as of 07/27/2023. 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 History of nephrostomy Family History Family History Mother Family history of multiple sclerosis Hypertension Father Patient's father is Social History Social History Social History: She resides at [facility]. 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 Her guardian is Abe Burnham ([phone]). Code status: Full code. Smoking packs per day: 0.5 Smoking cigarettes per day: 10.0 Years smoked: 1 Smoking pack-years: 0.50 Smoking status: Never smoker Second hand tobacco smoke exposure: No Alcohol intake: unknown Substance use: former Substance use type: marijuana Do You Feel Safe in your Home?: Yes Lack of Transportation: No Lack of Food: Never True Current Housing: I Have Housing Concerned About Future Housing: No Difficulty Paying Gas/Electric Bills: No Difficulty Paying for Meds: No Currently Unemployed: No Education: Don't Know Difficulty w/ Childcare or Family Care: No [facility] [facility] Additional living arrangements comments: 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ion: other Additional occupation/education comments: Disabled Spiritual care concerns: No Agree to blood products: Yes Meds Home Medications and Allergies Home Medications ?Medication ?Instructions ?Recorded ?Confirmed ?Type cholecalciferol (vitamin D3) 1,000 units G-tube DAILY 12/17/22 08/17/25 History ondansetron 4 mg disintegrating 4 mg PO QID PRN Nausea And Vomiting 12/17/22 08/17/25 History tablet trazodone 50 mg tablet 50 mg PO HS 12/17/22 08/17/25 History sennosides 8.6 mg tablet (senna) 8.6 mg PO DAILY Constipation 07/27/23 08/17/25 History citalopram 20 mg tablet 20 mg PO DAILY 06/20/24 08/17/25 History dextran 70-hypromellose eye drops 1 drp EACH EYE TID 06/20/24 08/17/25 History (Artificial Tears (dextran 70-hypromellose) eye drops) polyethylene glycol 3350 17 gram 17 g PO QAM #30 ea 07/17/24 08/17/25 Rx oral powder packet (Miralax) arginine 7 gram-glutamine 7 1 ea PO BID 01/13/25 08/17/25 History gram-calcium HMB 1.5 gram oral powder pack (Maged) bisacodyl 5 mg tablet,delayed 5 mg PO DAILY 01/13/25 08/17/25 History release ipratropium bromide 0.02 % 1.25 ml inhalation DAILY PRN 01/13/25 08/17/25 History solution for inhalation shortness of breath or wheezing sodium bicarbonate 650 mg tablet 650 mg PO BID 05/28/25 08/17/25 History magnesium citrate (Citroma oral 296 ml PO DAILY PRN constipation 07/03/25 08/17/25 History solution) magnesium hydroxide 400 mg/5 mL 30 ml PO DAILY PRN constipation 07/03/25 08/17/25 History oral suspension (Milk of Magnesia) guepdntwdbte-jcdh-mfghp acid 1 tablet PO DAILY 07/03/25 08/17/25 History pregabalin 75 mg capsule 75 mg PO DAILY 07/03/25 08/17/25 History sodium phosphates 133 ml RECTAL DAILY PRN 07/03/25 08/17/25 History constipation acetaminophen 325 mg tablet 650 mg PO Q4H PRN pain 08/17/25 08/17/25 History (Tylenol) amlodipine 10 mg tablet 10 mg feeding tube DAILY 08/17/25 08/17/25 History apixaban 2.5 mg tablet (Eliquis) 2.5 mg feeding tube 2100 08/17/25 08/17/25 History ascorbic acid (vitamin C) 500 mg/5 250 mg PO DAILY 08/17/25 08/17/25 History mL oral liquid bisacodyl 10 mg rectal suppository 10 mg RECTAL DAILY PRN constipation 08/17/25 08/17/25 History citalopram 10 mg tablet 10 mg feeding tube DAILY 08/17/25 08/17/25 History folic acid 1 mg tablet 1 mg PO DAILY 08/17/25 08/17/25 History hydrocodone 5 mg-acetaminophen 325 1 tablet PO Q6H PRN pain 08/17/25 08/17/25 History mg tablet lansoprazole 30 mg delayed 30 mg PO DAILY 08/17/25 08/17/25 History release,disintegrating tablet (Prevacid SoluTab) melatonin 3 mg capsule 3 mg PO HS 08/17/25 08/17/25 History metoprolol succinate 50 mg 50 mg PO TID 08/17/25 08/17/25 History tablet,extended release 24 hr thiamine HCl (vitamin B1) 100 mg 100 mg feeding tube TID 08/17/25 08/17/25 History tablet (Vitamin B-1) Allergies Allergy/AdvReac Type Severity Reaction Status Date / Time No Known Allergies Allergy Verified 08/17/25 15:03 Vital Signs Vital Signs - 24 hr 08/19/25 20:10 08/19/25 20:15 08/20/25 06:00 Temperature 97.6 F 97.3 F L Pulse Rate 98 103 H 87 Respiratory Rate 18 20 Blood Pressure 120/77 123/87 Pulse Oximetry 100 100 Oxygen Delivery 08/20/25 08:00 08/20/25 08:42 08/20/25 08:43 Temperature Pulse Rate 93 90 Respiratory Rate 20 Blood Pressure Pulse Oximetry 100 Oxygen Delivery Room Air 08/20/25 12:00 08/20/25 14:00 Temperature 97 F L Pulse Rate 76 83 Respiratory Rate 16 Blood Pressure 102/73 Pulse Oximetry 100 Oxygen Delivery Exam Narrative: Contracted full body, cachectic, chronically ill appearing woman Const: General: comfortable and no acute distress Orientation/consciousness: oriented to person HENMT: Face/Nose/Sinus: Normal nares present Other: tacky mucous membranes Eyes: Other: Nystagmus L eye Neck: Neck: supple Resp: Effort & Inspection: normal respiratory effort Auscultation: clear to auscultation bilaterally Other: diminished LS in the bases Cardio: Rate: tachycardic (appears to be chronic) Rhythm: regular rhythm GI: Inspection: non-distended Auscultation: normal bowel sounds : External Female Exam: normal external appearance Other: observed during wound exam/cleaning up pt Skin: Other: Multiple wounds, refer to wound comprehensive notes. All wounds redressed today. Neuro: General: oriented to person Speech: normal speech Other: Unable to assess strength due to MS contractures, sensation limited in BLE Extrem: Other: 4 limb contracture Psych: Affect: normal affect Judgement: Poor judgement present (Psych) Results Labs 08/20/25 08:50 08/20/25 08:50 Labs: Short CBC 08/20/25 Range/Units 08:50 WBC 8.2 (4.5-10.0) K/mm3 Hgb 9.3 L (12.0-15.0) g/dL Hct 30.0 L (37.0-47.0) % Plt Count 220 (150-375) k/mm3 BMP 08/20/25 08:50 Sodium 139 Potassium 5.1 H Chloride 108 H Carbon Dioxide 24 BUN 57 H Creatinine 1.16 H Glucose 98 Calcium 8.7 Liver Function 08/20/25 Range/Units 08:50 Total Bilirubin 0.3 (0.2-1.3) mg/dL AST 24 (14-36) U/L ALT 20 (6-35) U/L Alkaline Phosphatase 176 H (38-126) U/L Albumin 3.9 (3.5-5.1) g/dL
[2025-08-20] MEDS: ACETAMINOPHEN 325 MG TABLET 650 MG PO (20:34)
[2025-08-20] MEDS: APIXABAN 2.5 MG TABLET FEED TUBE (20:35)
[2025-08-20] MEDS: MELATONIN 3 MG TABLET PO (20:35)
[2025-08-21] VITALS (17 sets, daily range): BP systolic 95–111; BP diastolic 61–74; PULSE 83–119; RESP 18–22; TEMP 36–37; O2SAT 98–100; BMI 20.2
--- NOTE | 2025-08-21 00:45 | ECG_ITS ---
Test Date: 2025-08-21 00:57:23 Measurements Intervals Bennett Rate: 81 P: 54 MD: 166 QRS: 4 QRSD: 83 T: 26 QT: 390 QTc: 453 Interpretive Statements SINUS RHYTHM POOR R-WAVE PROGRESSION BORDERLINE ECG Compared to ECG 08/17/2025 01:43:43 NO SIGNIFICANT CHANGE Electronically Signed On 08-21-2025 07:57:44 [employer] by Hima Villagran M.D.
[2025-08-21 01:34] LABS: Hematocrit 28.4 % (37.0-47.0); Hemoglobin 8.5 g/dL (12.0-15.0); Immature Granulocyte Percent A 0.3 % (0-0.5); Lymphocytes Absolute Auto 1.64 K/mm3 (0.9-3.2); Mean Corpuscular HGB Conc 29.9 g/dl (32-36); Mean Corpuscular Hemoglobin 28.0 pg (26-34); Mean Corpuscular Volume 93.4 fl (80-100); Nucleated Red Blood Cells Absolute Auto 0.000 K/mm3 (0.0-0.012); Nucleated Red Blood Cells Perc 0.0 % (0.0-0.2); Platelet Count Result 256 k/mm3 (150-375); Red Blood Count 3.04 M/mm3 (4.2-5.4); White Blood Count 9.6 K/mm3 (4.5-10.0)
[2025-08-21] MEDS: HYDROcodone/acetaminophen (*CRX) 5-325 MG TABLET 1 TAB PO ×2 (01:49→13:09)
[2025-08-21 01:56] LABS: NT Pro B Type Natriuretic Pept 9010 pg/mL (19.9-100); Troponin I 2.540 ng/mL (0.000-0.034)
--- NOTE | 2025-08-21 02:09 | PM.EVENT ---
Event Note Event Note Event Note: The patient is complaining of midsternal chest pain. She stated he has been going on all day. She denies any shortness of breath. EKG was performed and no changes were noted. Troponin was noted to be 2.54. I notified the supervisor esters and emulsifiers for an IMU bed. We will transfer the patient to IMU for closer monitoring. Cardiology consult was placed. Trend troponins.
--- NOTE | 2025-08-21 02:10 | PC.NURSE ---
patient report not given at this time, IMU awaiting specialty bed for room 200. SPoke with Yadiel ALEJANDRO who will call this RN back!
--- NOTE | 2025-08-21 03:17 | PC.NURSE ---
Patient transfered to bed 200 IMU at 0310 per Yadiel ALEJANDRO and this RN discussion, dayshift to pass along to contact patient's guardian as it is 0300.
--- NOTE | 2025-08-21 03:24 | PC.NURSE ---
This patient, Yesenia Perez[facility] at 0305. Patient/family oriented to unit policies and routines
[2025-08-21] MEDS: cefTRIAXone 1 GM in SODIUM CHLORIDE 0.9% IV 50 ML 100 ML IVPB (04:17)
[2025-08-21 06:22] LABS: Hematocrit 28.6 % (37.0-47.0); Hemoglobin 8.6 g/dL (12.0-15.0); Immature Granulocyte Percent A 0.4 % (0-0.5); Lymphocytes Absolute Auto 1.77 K/mm3 (0.9-3.2); Mean Corpuscular HGB Conc 30.1 g/dl (32-36); Mean Corpuscular Hemoglobin 27.9 pg (26-34); Mean Corpuscular Volume 92.9 fl (80-100); Nucleated Red Blood Cells Absolute Auto 0.000 K/mm3 (0.0-0.012); Nucleated Red Blood Cells Perc 0.0 % (0.0-0.2); Platelet Count Result 263 k/mm3 (150-375); Red Blood Count 3.08 M/mm3 (4.2-5.4); White Blood Count 10.0 K/mm3 (4.5-10.0)
[2025-08-21 06:43] LABS: Alanine Aminotransferase 19 U/L (6-35); Albumin Level 3.6 g/dL (3.5-5.1); Alkaline Phosphatase 170 U/L (38-126); Anion Gap 7 mmol/L (4-12); Aspartate Amino Transferase 51 U/L (14-36); Bilirubin,Total 0.3 mg/dL (0.2-1.3); Blood Urea Nitrogen 56 mg/dL (7-17); Calcium 9.0 mg/dL (8.4-10.2); Carbon Dioxide 25 mmol/L (22-30); Chloride 107 mmol/L (98-107); Estimated CRCL calculation 35 ml/min; Estimated Glomerular Filt Rate 43; Glucose 88 mg/dL (65-110); Potassium 4.9 mmol/L (3.4-5.0); Sodium 139 mmol/L (137-145); Total Protein 8.1 g/dL (6.3-8.2)
[2025-08-21 06:46] LABS: Troponin I 3.630 ng/mL (0.000-0.034)
--- NOTE | 2025-08-21 06:50 | P.PNIM_ITS ---
Progress Note: A&P Assessment and Plan (1) Generalized anxiety disorder: Code(s): F41.1 - Generalized anxiety disorder Status: Acute (2) Essential (primary) hypertension: Code(s): I10 - Essential (primary) hypertension Status: Acute (3) Sinus tachycardia: Code(s): R00.0 - Tachycardia, unspecified Status: Acute (4) Abdominal pain: Code(s): R10.9 - Unspecified abdominal pain Status: Acute (5) Stage 3 chronic kidney disease: Code(s): N18.30 - Chronic kidney disease, stage 3 unspecified Status: Chronic (6) UTI (urinary tract infection): Code(s): N39.0 - Urinary tract infection, site not specified Status: Acute Plan 60-year-old female with past medical history of debility, contractures, and multiple decub ulcers 2/2 MS to the ED on 08/16/2025 with abdominal pain from her [facility].Pt is a poor historian. Pt was recently here at the end of July and transferred to [facility] for a second opinion for potential RLE amputation. Amputation did not take place Patient was admitted for possible pneumonia and UTI Pneumonia: Atelectasis to the RLL per CT scan. -Continue ceftriaxone & doxy IV Follow culture result Chest pain: Elevated troponin Cardiology following Conservative manage due to multiple comorbid condition including contractures Given morphine 2 mg IV x 1 UTI (urinary tract infection): Continue with ceftriaxone Follow-up urine culture Gastrointestinal tube in situ: Pt eats food via mouth, G tube for meds & tube feed Tube feeding is not working. GI team on board. -Continuous Jevity 1.5 at 55mls/hr with 150ml free water flushes q4 + Maged Pressure ulcers of skin of multiple topographic sites: Extensive, but denies pain. History of MS, extensive contractures Wound care following Schizoaffective disorder: Monitor Abdominal pain: Constipation has resolved History of pulmonary embolism: Currently on Eliquis 2.5 mg b.i.d. Code status: Full DVT prophylaxis: Eliquis Disposition: Pending improvement Subjective Date/time seen: 08/21/25 06:50 Interval history: per HPI: Pt with a hx of debility, contractures, and multiple decub ulcers 2/2 MS to the ED on 08/16/2025 c/p abd pain from her [place]. Today pt reporting a burning type GERD upper abd pain with potential nausea she cannot definitively differentiate the two; when turned on her side during wound assessment, she reports alleviated abd pain. Pt is a poor historian. Pt was recently here at the end of July and transferred to [facility] for a second opinion for potential RLE amputation. Amputation did not take place, wounds evaluated today with me as well as wound, none looking acutely infected but all in advanced stages. Pt denies SOB but endorses CP when asked if she is having chest pain and but cannot describe the cp. Her white count is noted to be 14, which is down trending from her initial labs in the ED (15.3). Her H&H is 9.1 and 29.8, these are slightly higher than her baseline. Her potassium was found to be 4.9 Her BUN 59 and creatinine 1.19. Her GFR is 46. WBC 14 (down from 15.3 in the ED), continue ceftriaxone and doxy for PNA and possible UTI. 08/20/25 Patient was seen and examined at bedside. She is feeling fine. Denies any chest pain, shortness off breath. Feeding tube was not working. GI team on board. Plan for tube placement today. Reviewed lab test. WBC 8. Continue treatment for pneumonia and UTI. Continue Rocephin and doxycycline. Follow urine culture results 08/21: Night team reports patient complained of chest pain and ordered troponin and cardiology consult. Pending cardiology evaluation. Elevated troponin. Patient has a history of pulmonary embolism and currently on Eliquis 2.5 mg p.o. b.i.d.. Cardiology with the patient no acute intervention. Given morphine 2 mg IV x1. Called legal guardian but unable to reach for an update Review of Systems Review of Systems: All systems reviewed & are unremarkable except as noted in HPI and below Exam Narrative: Contracted full body, cachectic, chronically ill appearing woman Const: General: comfortable and no acute distress O rientation/consciousness: oriented to person HENMT: Face/Nose/Sinus: Normal nares present Other: tacky mucous membranes Eyes: Other: Nystagmus L eye Neck: Neck: supple Resp: Effort & Inspection: normal respiratory effort Auscultation: clear to auscultation bilaterally Other: diminished LS in the bases Cardio: Rate: tachycardic (appears to be chronic) Rhythm: regular rhythm GI: Inspection: non-distended Auscultation: normal bowel sounds : External Female Exam: normal external appearance Other: observed during wound exam/cleaning up pt Skin: Other: Multiple wounds, refer to wound comprehensive notes. All wounds redressed today. Neuro: General: oriented to person Speech: normal speech Other: Unable to assess strength due to MS contractures, sensation limited in BLE Extrem: Other: 4 limb contracture Psych: Affect: normal affect Judgement: Poor judgement present (Psych) Objective Data Vital Signs Vital Signs: Vital Signs - 24 hr 08/20/25 08:00 08/20/25 08:42 08/20/25 08:43 Temperature Pulse Rate 93 90 Respiratory Rate 20 Blood Pressure Pulse Oximetry 100 Oxygen Delivery Room Air 08/20/25 12:00 08/20/25 14:00 08/20/25 16:01 Temperature 97 F L Pulse Rate 76 83 94 Respiratory Rate 16 Blood Pressure 102/73 Pulse Oximetry 100 Oxygen Delivery 08/20/25 20:00 08/20/25 20:35 08/20/25 22:00 Temperature 97.0 F L Pulse Rate 103 H 105 H 85 Respiratory Rate 18 Blood Pressure 102/61 Pulse Oximetry 100 Oxygen Delivery 08/21/25 00:30 08/21/25 03:15 08/21/25 03:29 Temperature 97.0 F L 97.6 F Pulse Rate 85 84 85 Respiratory Rate 18 18 18 Blood Pressure 102/61 95/69 L Pulse Oximetry 100 99 100 Oxygen Delivery Room Air 08/21/25 04:00 08/21/25 06:00 Temperature Pulse Rate 83 93 Respiratory Rate Blood Pressure Pulse Oximetry Oxygen Delivery Intake/Output Intake/Output: Intake & Output 08/18/25 08/19/25 08/20/25 08/21/25 23:59 23:59 23:59 23:59 Intake Total 510 1225 1280 1063 Output Total 150 300 500 100 Balance 360 925 018 963 Meds/Results Medications: Active Medications Generic Name Dose Route Start Last Admin Trade Name Freq PRN Reason Stop Dose Admin Acetaminophen 650 mg 08/17/25 14:44 08/20/25 20:34 Acetaminophen 325 Mg Tablet PO 650 mg Q4H PRN Administration pain 1-3 Hydrocodone Bitart/Acetaminophen 1 tab 08/17/25 14:44 08/21/25 01:49 Hydrocodone/Acetaminophen (*Crx) 5-325 Mg Tablet PO 1 tab Q6H PRN Administration Pain 4-6 Amlodipine Besylate 10 mg 08/18/25 09:00 08/20/25 08:45 Amlodipine Besylate 10 Mg Tablet FEED TUBE 10 mg DAILY MERLYN Administration Apixaban 2.5 mg 08/17/25 21:00 08/20/25 20:35 Apixaban 2.5 Mg Tablet FEED TUBE 2.5 mg Q12HR MERLYN Administration Artificial Tears 1 drop 08/17/25 17:00 08/20/25 16:28 Artificial Tears Ophth Soln 15 Ml Bottle EACH EYE 1 drop TID MERLYN Administration Ascorbic Acid 250 mg 08/18/25 09:00 08/20/25 08:44 Ascorbic Acid 250 Mg Tablet PO Not Given DAILY MERLYN Bisacodyl 10 mg 08/18/25 08:27 Bisacodyl 10 Mg Suppository RECTAL DAILY PRN Constipation Citalopram Hydrobromide 20 mg 08/18/25 09:00 08/20/25 08:44 Citalopram Hydrobromide 20 Mg Tablet PO Not Given DAILY MERLYN Folic Acid 1 mg 08/18/25 09:00 08/20/25 08:44 Folic Acid 1 Mg Tablet PO Not Given DAILY MERLYN Ceftriaxone Sodium 1 gm/ 50 mls @ 100 mls/hr 08/18/25 04:00 08/21/25 04:17 Sodium Chloride IVPB 100 mls/hr Q24H MERLYN Administration Doxycycline Hyclate 100 mg/ 100 mls @ 100 mls/hr 08/17/25 20:00 08/20/25 20:33 Sodium Chloride IVPB 08/21/25 20:59 100 mls/hr Q12H MERLYN Administration Ipratropium [place] 0.25 mg 08/17/25 14:44 Ipratropium Br 0.02% Inh Soln 0.5 Mg/2.5 Ml Vial INHALATION DAILY PRN Shortness Of Breath Or Wheezing Lansoprazole 30 mg 08/18/25 09:00 08/20/25 08:45 Lansoprazole Odt 30 Mg Tab.Rap.Dr PO Not Given DAILY MERLYN Magnesium Citrate 296 ml 08/21/25 02:08 Magnesium Citrate 300 Ml Btl PO DAILY PRN Constipation Melatonin 3 mg 08/17/25 21:00 08/20/25 20:35 Melatonin 3 Mg Tablet PO 3 mg HS [facility] Administration Metoprolol Tartrate 50 mg 08/19/25 21:00 08/20/25 20:35 Metoprolol Tartrate 50 Mg Tab FEED TUBE 50 mg Q12HR [facility] Administration Multivitamin Hematinic Therapeutic 1 tablet 08/18/25 09:00 08/20/25 08:46 Multivitamin Hematinic (*Bkc) Tablet PO Not Given DAILY [facility] Ondansetron HCl 4 mg 08/17/25 14:44 Ondansetron Hcl Odt 4 Mg Tablet PO QID PRN Nausea And Vomiting Polyethylene Glycol 17 gm 08/18/25 09:00 08/20/25 08:46 Polyethylene Glycol 3350 17 Gm Powd.Pack PO Not Given QAM [facility] Pregabalin 75 mg 08/18/25 09:00 08/20/25 08:42 Pregabalin (*Crx) 75 Mg Capsule PO 75 mg DAILY [facility] Administration Senna 8.6 mg 08/18/25 09:00 08/20/25 08:46 Sennosides 8.6 Mg Tablet PO Not Given DAILY [facility] Sodium Bicarbonate 650 mg 08/17/25 17:00 08/20/25 16:28 Sodium Bicarbonate Tab 650 Mg Tablet PO Not Given BID [facility] Thiamine HCl 100 mg 08/17/25 17:00 08/20/25 16:28 Thiamine Hcl 100 Mg Tablet FEED TUBE Not Given TID [facility] Trazodone HCl 50 mg 08/17/25 21:00 08/20/25 20:35 Trazodone Hcl 50 Mg Tablet PO 50 mg HS [facility] Administration Vitamin D 25 mcg 08/18/25 09:00 08/20/25 08:44 Cholecalciferol (Vitamin D3) 25 Mcg (1,000 Units) Tablet FEED TUBE Not Given DAILY [facility] Radiology Results: ITS Impressions Chest/Abdomen/Pelvis CTA 08/17/25 08:16 IMPRESSION: 1. No pulmonary embolus. 2. Left-sided pyelitis. 3. Stool-filled distended rectosigmoid. 4. Decubitus ulcers superficial to the sacrum and ischial tuberosities. No specific evidence of acute osteomyelitis. Chest X-Ray 08/21/25 06:27 IMPRESSION: 1. Persistent right basilar atelectasis. 2. Otherwise no acute abnormality or change. Labs Labs: Laboratory Results - last 24 hr 08/20/25 08/21/25 08/21/25 08:50 01:25 05:42 WBC 8.2 9.6 10.0 RBC 3.27 L 3.04 L 3.08 L Hgb 9.3 L 8.5 L 8.6 L Hct 30.0 L 28.4 L 28.6 L MCV 91.7 93.4 92.9 MCH 28.4 28.0 27.9 MCHC 31.0 L 29.9 L 30.1 L RDW 14.9 H 15.2 H 15.3 H Plt Count 220 256 263 MPV 10.1 10.1 10.5 H Immature Gran % (Auto) 0.2 0.3 0.4 Neut % (Auto) 81.6 H 73.2 H 72.2 Lymph % (Auto) 10.1 L 17.1 L 17.6 L [place] % (Auto) 4.5 5.1 5.5 Eos % (Auto) 3.4 4.1 4.0 Baso % (Auto) 0.2 0.2 0.3 Lymph # (Auto) 0.83 L 1.64 1.77 [place] # (Auto) 0.4 0.5 0.6 Eos # (Auto) 0.3 0.4 H 0.4 H Baso # (Auto) 0.0 0.0 0.0 Abs Immat Gran (auto) 0.02 0.03 0.04 H Absolute Neuts (auto) 6.7 7.0 H 7.2 H Absolute Nucleated RBC 0.000 0.000 0.000 Nucleated RBC % 0.0 0.0 0.0 Sodium 139 139 Potassium 5.1 H 4.9 Chloride 108 H 107 Carbon Dioxide 24 25 Anion Gap 7 7 BUN 57 H 56 H Creatinine 1.16 H 1.26 H Estim Creat Clear Calc 37 35 Estimated GFR 48 L 43 L Glucose 98 88 Calcium 8.7 9.0 Total Bilirubin 0.3 0.3 AST 24 51 H ALT 20 19 Alkaline Phosphatase 176 H 170 H Troponin I 2.540 H* 3.630 H* D NT-Pro-B Natriuret Pep 9010 H Total Protein 8.8 H 8.1 Albumin 3.9 3.6 Quality VTE Prophylaxis VTE prophylaxis: pharmacologic ordered Hospitalist MIPS Advance Care Plan I have confirmed that the patient's Advanced Care Plan is present, code status is documented, or surrogate decision maker is listed in patient medical record.: Yes Medication Reconciliation I have utilized all available resources to obtain, update and review the patients current medications (includes all prescriptions, OTC, herbals, cannabis, and nutritional supplements).: Yes
[2025-08-21 08:45] LABS: Troponin I 3.700 ng/mL (0.000-0.034)
--- NOTE | 2025-08-21 09:06 | PM.CNCAR ---
Assessment and Plan Assessment and plan (1) Elevated troponin: Code(s): R77.8 - Other specified abnormalities of plasma proteins Status: Acute Plan 60-year-old lady with a very challenging difficult situation. She has significantly elevated troponin levels but no other evidence of an acute coronary syndrome. Her complaints are very difficult to discern by history both chest and abdominal pain are going on but neither of these are acute problems a been going on for a long time. At this point simple conservative medical therapy is all that is to be recommended. She is not a candidate for aggressive evaluation of her troponin (cath) in my opinion. She is already receiving beta-blockers which is appropriate I will prefer not to start aspirin therapy since she is significantly anemic and already anticoagulated. I do not have any other specific cardiac recommendations to make at this time. Obviously this is a very unfortunate situation Hima Villagran MD [facility] History of Present Illness History of Present Illness Consult date/time: 08/21/25 09:06 Reason For Visit: pna Narrative: This is a very unfortunate 60-year-old woman I am seeing at the request of the hospitalist because of chest pain and elevated troponin. She was hospitalized here 4[facility]5 days [facility] because of abdominal pain. She is a very poor historian regarding her complaints and this has been noted is in the chart as well. Regarding her chest pain she says she has been having constant unremitting chest pain for at least 2 weeks or so. The abdominal pain is the main reason that she came in the hospital but she does have a hard time distinguishing between her symptoms. She is not having any diaphoresis or air hunger. She mentioned these symptoms again apparently to the nursing staff last night a hospitalist/art museum docent saw her at 2:00 a.m. in the morning and ordered troponins which are moderately elevated with the 1st sample being 2.5 in the 3rd sample being 3.7. She has a whole series of EKGs in the chart which demonstrates sinus rhythm with poor R-wave progression, no changes in comparison to previous tracings and no evidence of acute injury or ischemia. The patient is not known to have heart disease prior to this she is a very unfortunate debilitated [facility] who is got contractures and decubitus ulcers because of multiple sclerosis. She is receiving apixaban at 2.5 mg twice daily for history of pulmonary embolism she takes amlodipine for hypertension and she is also receiving metoprolol succinate. She has a feeding tube although she can swallow apparently. GI consult and was asked to see her yesterday as the feeding tube was clogged and that was changed. Other than reporting unremitting epigastric abdominal and upper substernal pain she has no other complaints. Her lab data is remarkable for mild renal insufficiency she is significantly anemic with a hemoglobin of 8.6. Review of Systems Constitutional: Constitutional: Reports as per HPI Eyes: Eyes: Reports no additional eye complaints ENT: Reports system reviewed and no additional complaints, except as documented Cardiovascular: Cardiovascular: Reports as per HPI Respiratory: Respiratory: Reports no additional respiratory complaints Gastrointestinal: Gastrointestinal: Reports as per HPI and Reports abdominal pain Integumentary/Breasts: Skin/Breast: Reports wounds Neurologic: Reports system reviewed and no additional complaints, except as documented Endocrine: Endocrine: Reports no additional endocrine complaints Allergic/Immunologic: Allergic/Immunologic: Reports no additional allergic/immunologic complaints [facility] Past Medical History Medical History Multiple sclerosis Gastrointestinal tube in situ Chronic kidney disease, stage 3 Anorexia Malnutrition Pulmonary embolism (2015) Xanthogranulomatous pyelonephritis MRSA infection Urinary tract infection due to extended-spectrum beta lactamase (ESBL) producing Escherichia coli Chronic respiratory failure with hypoxia, on home oxygen therapy Previously documented that the patient is oxygen dependent on 4 L nasal cannula however she denies and is on room air with good SpO2 as of 07/27/2023. 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 History of nephrostomy Family History Family History Mother Family history of multiple sclerosis Hypertension Father Patient's father is Social History Social History Social History: She resides at [facility]. Patient is a ramos of the [facility]. Her guardian is Abe Burnham ([phone]). Code status: Full code. Smoking packs per day: 0.5 Smoking cigarettes per day: 10.0 Years smoked: 1 Smoking pack-years: 0.50 Smoking status: Never smoker Second hand tobacco smoke exposure: No Alcohol intake: unknown Substance use: former Substance use type: marijuana Do You Feel Safe in your Home?: Yes Lack of Transportation: No Lack of Food: Never True Current Housing: I Have Housing Concerned About Future Housing: No Difficulty Paying Gas/Electric Bills: No Difficulty Paying for Meds: No Currently Unemployed: No Education: Don't Know Difficulty w/ Childcare or Family Care: No Living arrangements: [facility] Additional living arrangements comments: 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ion: other Additional occupation/education comments: Disabled Spiritual care concerns: No Agree to blood products: Yes Meds Home Medications and Allergies Home Medications ?Medication ?Instructions ?Recorded ?Confirmed ?Type cholecalciferol (vitamin D3) 1,000 units G-tube DAILY 12/17/22 08/17/25 History ondansetron 4 mg disintegrating 4 mg PO QID PRN Nausea And Vomiting 12/17/22 08/17/25 History tablet trazodone 50 mg tablet 50 mg PO HS 12/17/22 08/17/25 History sennosides 8.6 mg tablet (senna) 8.6 mg PO DAILY Constipation 07/27/23 08/17/25 History citalopram 20 mg tablet 20 mg PO DAILY 06/20/24 08/17/25 History dextran 70-hypromellose eye drops 1 drp EACH EYE TID 06/20/24 08/17/25 History (Artificial Tears (dextran 70-hypromellose) eye drops) polyethylene glycol 3350 17 gram 17 g PO QAM #30 ea 07/17/24 08/17/25 Rx oral powder packet (Miralax) arginine 7 gram-glutamine 7 1 ea PO BID 01/13/25 08/17/25 History gram-calcium HMB 1.5 gram oral powder pack (Maged) bisacodyl 5 mg tablet,delayed 5 mg PO DAILY 01/13/25 08/17/25 History release ipratropium bromide 0.02 % 1.25 ml inhalation DAILY PRN 01/13/25 08/17/25 History solution for inhalation shortness of breath or wheezing sodium bicarbonate 650 mg tablet 650 mg PO BID 05/28/25 08/17/25 History magnesium citrate (Citroma oral 296 ml PO DAILY PRN constipation 07/03/25 08/17/25 History solution) magnesium hydroxide 400 mg/5 mL 30 ml PO DAILY PRN constipation 07/03/25 08/17/25 History oral suspension (Milk of Magnesia) ssrwixfqqbpa-wfgx-usucj acid 1 tablet PO DAILY 07/03/25 08/17/25 History pregabalin 75 mg capsule 75 mg PO DAILY 07/03/25 08/17/25 History sodium phosphates 133 ml RECTAL DAILY PRN 07/03/25 08/17/25 History constipation acetaminophen 325 mg tablet 650 mg PO Q4H PRN pain 08/17/25 08/17/25 History (Tylenol) amlodipine 10 mg tablet 10 mg feeding tube DAILY 08/17/25 08/17/25 History apixaban 2.5 mg tablet (Eliquis) 2.5 mg feeding tube 2100 08/17/25 08/17/25 History ascorbic acid (vitamin C) 500 mg/5 250 mg PO DAILY 08/17/25 08/17/25 History mL oral liquid bisacodyl 10 mg rectal suppository 10 mg RECTAL DAILY PRN constipation 08/17/25 08/17/25 History citalopram 10 mg tablet 10 mg feeding tube DAILY 08/17/25 08/17/25 History folic acid 1 mg tablet 1 mg PO DAILY 08/17/25 08/17/25 History hydrocodone 5 mg-acetaminophen 325 1 tablet PO Q6H PRN pain 08/17/25 08/17/25 History mg tablet lansoprazole 30 mg delayed 30 mg PO DAILY 08/17/25 08/17/25 History release,disintegrating tablet (Prevacid SoluTab) melatonin 3 mg capsule 3 mg PO HS 08/17/25 08/17/25 History metoprolol succinate 50 mg 50 mg PO TID 08/17/25 08/17/25 History tablet,extended release 24 hr thiamine HCl (vitamin B1) 100 mg 100 mg feeding tube TID 08/17/25 08/17/25 History tablet (Vitamin B-1) Allergies Allergy/AdvReac Type Severity Reaction Status Date / Time No Known Allergies Allergy Verified 08/17/25 15:03 Vital Signs Vital Signs - 24 hr 08/20/25 12:00 08/20/25 14:00 08/20/25 16:01 Temperature 36.1 C L Pulse Rate 76 83 94 Respiratory Rate 16 Blood Pressure 102/73 Pulse Oximetry 100 Oxygen Delivery 08/20/25 20:00 08/20/25 20:35 08/20/25 22:00 Temperature 36.1 C L Pulse Rate 103 H 105 H 85 Respiratory Rate 18 Blood Pressure 102/61 Pulse Oximetry 100 Oxygen Delivery 08/21/25 00:30 08/21/25 03:15 08/21/25 03:29 Temperature 36.1 C L 36.4 C Pulse Rate 85 84 85 Respiratory Rate 18 18 18 Blood Pressure 102/61 95/69 L Pulse Oximetry 100 99 100 Oxygen Delivery Room Air 08/21/25 04:00 08/21/25 06:00 08/21/25 08:00 Temperature 36.0 C L Pulse Rate 83 93 97 Respiratory Rate 20 Blood Pressure 109/74 Pulse Oximetry 100 Oxygen Delivery Exam Const: Other: Very debilitated appearing 60-year-old lady contractured in the right lateral decubitus position appears to not be in distress but is reporting ongoing abdominal and chest pain HENMT: Mouth: Yes moist mucous membranes Eyes: Sclera: sclerae normal Neck: Neck: supple and no JVD Resp: Other: Breath sounds are grossly clear in both lung encarnacion Cardio: Rate: regular rate Rhythm: regular rhythm GI: GI Palp: Yes Soft to palpation Other: Abdomen is soft high-pitched bowel sounds are noted Skin: General skin exam: normal color Neuro: Other: Alert and oriented Extrem: Other: Warm and well perfused Results Labs and Meds 08/21/25 05:42 08/21/25 05:42 Lab results: Cardiac Enzymes 08/20/25 08/21/25 08/21/25 Range/Units 08:50 01:25 05:42 AST 24 51 H (14-36) U/L Troponin I 2.540 H* 3.630 H* D (0.000-0.034) ng/mL 08/21/25 Range/Units 08:15 AST (14-36) U/L Troponin I 3.700 H* (0.000-0.034) ng/mL CBC 08/21/25 08/21/25 Range/Units 01:25 05:42 WBC 9.6 10.0 (4.5-10.0) K/mm3 RBC 3.04 L 3.08 L (4.2-5.4) M/mm3 Hgb 8.5 L 8.6 L (12.0-15.0) g/dL Hct 28.4 L 28.6 L (37.0-47.0) % Plt Count 256 263 (150-375) k/mm3 Lymph # (Auto) 1.64 1.77 (0.9-3.2) K/mm3 [place] # (Auto) 0.5 0.6 (0.1-0.6) K/mm3 Eos # (Auto) 0.4 H 0.4 H (0-0.3) K/mm3 Baso # (Auto) 0.0 0.0 (0.0-0.1) K/mm3 Comprehensive Metabolic Panel 08/20/25 08/21/25 Range/Units 08:50 05:42 Sodium 139 139 (137-145) mmol/L Potassium 5.1 H 4.9 (3.4-5.0) mmol/L Chloride 108 H 107 (98-107) mmol/L Carbon Dioxide 24 25 (22-30) mmol/L BUN 57 H 56 H (7-17) mg/dL Creatinine 1.16 H 1.26 H (0.7-1.0) mg/dL Glucose 98 88 (65-110) mg/dL Calcium 8.7 9.0 (8.4-10.2) mg/dL AST 24 51 H (14-36) U/L ALT 20 19 (6-35) U/L Alkaline Phosphatase 176 H 170 H (38-126) U/L Total Protein 8.8 H 8.1 (6.3-8.2) g/dL Albumin 3.9 3.6 (3.5-5.1) g/dL Intake and Output 08/20/25 08/21/25 08/21/25 23:59 07:59 15:59 Intake Total 240 1063 0 Output Total 400 100 Balance -160 963 0 Intake: Oral 240 150 0 Tube Feeding 583 Tube Flush 330 Other 0 Output: Catheter Urine 400 100 External/Condom 400 100 Other: # Incontinent Voids 1 1 # Urine Diapers 1 Patient Weight 08/21/25 23:59 Weight 52 kg
[2025-08-21] MEDS: DOXYCYCLINE IV 100 MG in SODIUM CHLORIDE 0.9% IV 100 ML IVPB ×2 (09:21→20:45)
[2025-08-21] MEDS: METOPROLOL TARTRATE 50 MG TAB FEED TUBE ×2 (09:28→20:44)
[2025-08-21] MEDS: SENNOSIDES 8.6 MG TABLET PO (09:28)
[2025-08-21] MEDS: SODIUM BICARBONATE TAB 650 MG TABLET PO ×2 (09:28→17:41)
[2025-08-21] MEDS: FOLIC ACID 1 MG TABLET PO (09:28)
[2025-08-21] MEDS: CHOLECALCIFEROL (VITAMIN D3) 25 MCG (1,000 UNITS) TABLET FEED TUBE (09:28)
[2025-08-21] MEDS: THIAMINE HCL 100 MG TABLET FEED TUBE ×3 (09:28→17:41)
[2025-08-21] MEDS: APIXABAN 2.5 MG TABLET FEED TUBE ×2 (09:28→20:44)
[2025-08-21] MEDS: PREGABALIN (*CRX) 75 MG CAPSULE PO (09:28)
[2025-08-21] MEDS: ARTIFICIAL TEARS OPHTH SOLN 15 ML BOTTLE 1 DROP EACH EYE (09:29)
[2025-08-21] MEDS: MORPHINE SULFATE (*CRX) 4 MG/ML INJ 2 MG IV PUSH (11:34)
[2025-08-21] MEDS: MULTIVITAMIN HEMATINIC (*BKC) TABLET 1 TABLET PO (11:35)
--- NOTE | 2025-08-21 12:18 | PCNFU ---
Nutrition Follow-Up Complete: Inability to meet needs via PO as evidenced by need for tube feeding Goal:Meet estimated needs to support wound healing Pt meeting goal via tube feeding Pt current nutrition is Heart healthy diet, Tube feeding: Jevity 1.5 @ 55ml/hr with 150ml flush q 4 hrs = 1815kcals, 77g protein, 1819ml free water. Nutrition recommendation: Continue with current plan of care Last recorded weight is 52 kg. Bowel Motility: +BM 08/20 Labs Reviewed: HGB:8.6, HCT:28.6, GFR:43, BUN:56, Cr:1.2 Meds Noted: miralax, MVI, eliquis Skin:multiple stage III and IV pressure injuries Additional Notes: pt had her G tube replaced, tube feedings now resumed back to previous, pt tolerating well. PO intake remains minimal. AYALA BID in place for wound healing. Agree with orders. Monitor tube feeding, intake, wt, labs, skin. Follow up every Sunday and Sunday.
[2025-08-21] MEDS: LANSOPRAZOLE ODT 30 MG TAB.RAP.DR PO (13:09)
[2025-08-21] MEDS: ASCORBIC ACID 250 MG TABLET PO (13:10)
[2025-08-21] MEDS: CITALOPRAM HYDROBROMIDE 20 MG TABLET PO (13:10)
[2025-08-21] MEDS: MELATONIN 3 MG TABLET PO (20:44)
[2025-08-22] VITALS (15 sets, daily range): BP systolic 92–126; BP diastolic 62–84; PULSE 61–104; RESP 16–24; TEMP 36.3–37.1; O2SAT 94–100
[2025-08-22] MEDS: cefTRIAXone 1 GM in SODIUM CHLORIDE 0.9% IV 50 ML 100 ML IVPB (03:24)
[2025-08-22 04:47] LABS: Hematocrit 30.0 % (37.0-47.0); Hemoglobin 8.9 g/dL (12.0-15.0); Immature Granulocyte Percent A 0.5 % (0-0.5); Lymphocytes Absolute Auto 1.50 K/mm3 (0.9-3.2); Mean Corpuscular HGB Conc 29.7 g/dl (32-36); Mean Corpuscular Hemoglobin 27.8 pg (26-34); Mean Corpuscular Volume 93.8 fl (80-100); Nucleated Red Blood Cells Absolute Auto 0.000 K/mm3 (0.0-0.012); Nucleated Red Blood Cells Perc 0.0 % (0.0-0.2); Platelet Count Result 269 k/mm3 (150-375); Red Blood Count 3.20 M/mm3 (4.2-5.4); White Blood Count 10.8 K/mm3 (4.5-10.0)
[2025-08-22 05:53] LABS: Anisocytosis 1+; Schistocytes None Seen
[2025-08-22 06:30] LABS: Alanine Aminotransferase 18 U/L (6-35); Albumin Level 3.7 g/dL (3.5-5.1); Alkaline Phosphatase 172 U/L (38-126); Anion Gap 10 mmol/L (4-12); Aspartate Amino Transferase 42 U/L (14-36); Bilirubin,Total 0.3 mg/dL (0.2-1.3); Blood Urea Nitrogen 62 mg/dL (7-17); Calcium 9.0 mg/dL (8.4-10.2); Carbon Dioxide 22 mmol/L (22-30); Chloride 105 mmol/L (98-107); Estimated CRCL calculation 36 ml/min; Estimated Glomerular Filt Rate 44; Glucose 92 mg/dL (65-110); Potassium 5.7 mmol/L (3.4-5.0); Sodium 137 mmol/L (137-145); Total Protein 8.3 g/dL (6.3-8.2)
[2025-08-22] MEDS: CITALOPRAM HYDROBROMIDE 20 MG TABLET PO (08:38)
[2025-08-22] MEDS: CHOLECALCIFEROL (VITAMIN D3) 25 MCG (1,000 UNITS) TABLET FEED TUBE (08:38)
[2025-08-22] MEDS: FOLIC ACID 1 MG TABLET PO (08:38)
[2025-08-22] MEDS: APIXABAN 2.5 MG TABLET FEED TUBE ×2 (08:38→21:02)
[2025-08-22] MEDS: THIAMINE HCL 100 MG TABLET FEED TUBE ×3 (08:38→16:51)
[2025-08-22] MEDS: ASCORBIC ACID 250 MG TABLET PO (08:38)
[2025-08-22] MEDS: SENNOSIDES 8.6 MG TABLET PO (08:38)
[2025-08-22] MEDS: PREGABALIN (*CRX) 75 MG CAPSULE PO (08:38)
[2025-08-22] MEDS: SODIUM BICARBONATE TAB 650 MG TABLET PO ×2 (08:38→16:51)
[2025-08-22] MEDS: METOPROLOL TARTRATE 50 MG TAB FEED TUBE ×2 (08:38→21:02)
[2025-08-22] MEDS: LANSOPRAZOLE ODT 30 MG TAB.RAP.DR PO (08:38)
[2025-08-22] MEDS: MULTIVITAMIN HEMATINIC (*BKC) TABLET 1 TABLET PO (08:39)
--- NOTE | 2025-08-22 09:12 | PM.IMPN ---
Progress Note: A&P Assessment and Plan (1) Generalized anxiety disorder: Code(s): F41.1 - Generalized anxiety disorder Status: Acute (2) Essential (primary) hypertension: Code(s): I10 - Essential (primary) hypertension Status: Acute (3) Sinus tachycardia: Code(s): R00.0 - Tachycardia, unspecified Status: Acute (4) Abdominal pain: Code(s): R10.9 - Unspecified abdominal pain Status: Acute (5) Stage 3 chronic kidney disease: Code(s): N18.30 - Chronic kidney disease, stage 3 unspecified Status: Chronic (6) UTI (urinary tract infection): Code(s): N39.0 - Urinary tract infection, site not specified Status: Acute Plan 60-year-old female with past medical history of debility, contractures, and multiple decub ulcers 2/2 MS to the ED on 08/16/2025 with abdominal pain from her NH [facility].Pt is a poor historian. Pt was recently here at the end of July and transferred to [facility] for a second opinion for potential RLE amputation. Amputation did not take place Patient was admitted for possible pneumonia and UTI Pneumonia: Atelectasis to the RLL per CT scan. -Continue ceftriaxone & doxy IV Follow culture result with no growth Blood cultures x2 negative to date Chest pain: Elevated troponin Cardiology following Conservative manage due to multiple comorbid condition including contractures Given morphine 2 mg IV x 1 UTI (urinary tract infection): Continue with ceftriaxone Follow-up urine culture Gastrointestinal tube in situ: Pt eats food via mouth, G tube for meds & tube feed Tube feeding is not working. GI team on board. And G tube replaced -Continuous Jevity 1.5 at 55mls/hr with 150ml free water flushes q4 + Maged Pressure ulcers of skin of multiple topographic sites: Extensive, but denies pain. History of MS, extensive contractures Wound care following Schizoaffective disorder: Monitor Abdominal pain: Constipation has resolved History of pulmonary embolism: Currently on Eliquis 2.5 mg b.i.d. Elevated troponin: Less than 0.012-2.5-3 0.6-3.7. Cardiology consulted. Conservative management recommended. Code status: Full DVT prophylaxis: Eliquis Disposition: Pending improvement Subjective Date/time seen: 08/22/25 09:12 Interval history: per HPI: Pt with a hx of debility, contractures, and multiple decub ulcers 2/2 MS to the ED on 08/16/2025 c/p abd pain from her NH [facility]. Today pt reporting a burning type GERD upper abd pain with potential nausea she cannot definitively differentiate the two; when turned on her side during wound assessment, she reports alleviated abd pain. Pt is a poor historian. Pt was recently here at the end of July and transferred to [facility] for a second opinion for potential RLE amputation. Amputation did not take place, wounds evaluated today with me as well as wound, none looking acutely infected but all in advanced stages. Pt denies SOB but endorses CP when asked if she is having chest pain and but cannot describe the cp. Her white count is noted to be 14, which is down trending from her initial labs in the ED (15.3). Her H&H is 9.1 and 29.8, these are slightly higher than her baseline. Her potassium was found to be 4.9 Her BUN 59 and creatinine 1.19. Her GFR is 46. WBC 14 (down from 15.3 in the ED), continue ceftriaxone and doxy for PNA and possible UTI. 08/20/25 Patient was seen and examined at bedside. She is feeling fine. Denies any chest pain, shortness off breath. Feeding tube was not working. GI team on board. Plan for tube placement today. Reviewed lab test. WBC 8. Continue treatment for pneumonia and UTI. Continue Rocephin and doxycycline. Follow urine culture results 08/21: Night team reports patient complained of chest pain and ordered troponin and cardiology consult. Pending cardiology evaluation. Elevated troponin. Patient has a history of pulmonary embolism and currently on Eliquis 2.5 mg p.o. b.i.d.. Cardiology with the patient no acute intervention. Given morphine 2 mg IV x1. Called legal guardian but unable to reach for an update 08/22/2025: No overnight events reported. Complains of generalized pain no overt chest pain or shortness of breath. Review of Systems Review of Systems: All systems reviewed & are unremarkable except as noted in HPI and below Exam Narrative: APPEARANCE: A&O times 1-2, chronically unwell appearing contracted full body quadriparetic Head: atraumatic. EYES: EOMI, NOSE: Atraumatic NECK: Trachea midline RESPIRATORY: Diminished breath sounds bilaterally no respiratory distress CARDIOVASCULAR: Regular rate rhythm ABDOMINAL: Nondistended, no guarding or rebound MUSCULOSKELETAl: No obvious deformities NEURO: Alert. Functional quadriplegic with 4 extremity contractures SKIN: Multiple wounds in the sacral area Objective Data Vital Signs Vital Signs: Vital Signs - 24 hr 08/21/25 09:28 08/21/25 10:00 08/21/25 11:54 Temperature 98.0 F Pulse Rate 98 86 90 Respiratory Rate 20 Blood Pressure 111/73 Pulse Oximetry 100 Oxygen Delivery 08/21/25 12:00 08/21/25 14:00 08/21/25 16:00 Temperature 98.6 F Pulse Rate 89 103 H 111 H Respiratory Rate 22 H Blood Pressure 106/74 Pulse Oximetry 98 Oxygen Delivery 08/21/25 16:00 08/21/25 18:00 08/21/25 20:00 Temperature Pulse Rate 109 H 109 H Respiratory Rate Blood Pressure Pulse Oximetry Oxygen Delivery Room Air 08/21/25 20:00 08/21/25 20:30 08/21/25 20:44 Temperature 98.5 F Pulse Rate 115 H 112 H 119 H Respiratory Rate 20 Blood Pressure 100/70 Pulse Oximetry 98 Oxygen Delivery 08/21/25 22:00 08/22/25 00:00 08/22/25 00:00 Temperature 97.3 F L Pulse Rate 84 77 Respiratory Rate 18 Blood Pressure 99/68 L Pulse Oximetry 94 Oxygen Delivery Room Air 08/22/25 00:00 08/22/25 02:00 08/22/25 03:48 Temperature Pulse Rate 87 92 Respiratory Rate Blood Pressure Pulse Oximetry Oxygen Delivery Room Air 08/22/25 04:00 08/22/25 04:00 08/22/25 06:00 Temperature 98.7 F Pulse Rate 102 H 104 H 90 Respiratory Rate 18 Blood Pressure 103/72 Pulse Oximetry 99 Oxygen Delivery 08/22/25 08:00 08/22/25 08:38 Temperature 97.5 F L Pulse Rate 97 102 H Respiratory Rate 18 Blood Pressure 126/84 Pulse Oximetry 100 Oxygen Delivery Intake/Output Intake/Output: Intake & Output 08/19/25 08/20/25 08/21/25 08/22/25 23:59 23:59 23:59 23:59 Intake Total 1225 1380 1213 1902 Output Total 300 500 350 500 Balance 925 829 445 6172 Meds/Results Medications: Active Medications Generic Name Dose Route Start Last Admin Trade Name Freq PRN Reason Stop Dose Admin Acetaminophen 650 mg 08/17/25 14:44 08/20/25 20:34 Acetaminophen 325 Mg Tablet PO 650 mg Q4H PRN Administration pain 1-3 Hydrocodone Bitart/Acetaminophen 1 tab 08/17/25 14:44 08/21/25 13:09 Hydrocodone/Acetaminophen (*Crx) 5-325 Mg Tablet PO 1 tab Q6H PRN Administration Pain 4-6 Amlodipine Besylate 10 mg 08/18/25 09:00 08/22/25 08:38 Amlodipine Besylate 10 Mg Tablet FEED TUBE 10 mg DAILY [facility] Administration Apixaban 2.5 mg 08/17/25 21:00 08/22/25 08:38 Apixaban 2.5 Mg Tablet FEED TUBE 2.5 mg Q12HR [facility] Administration Artificial Tears 1 drop 08/17/25 17:00 08/22/25 08:39 Artificial Tears Ophth Soln 15 Ml Bottle EACH EYE Not Given TID [facility] Ascorbic Acid 250 mg 08/18/25 09:00 08/22/25 08:38 Ascorbic Acid 250 Mg Tablet PO 250 mg DAILY [facility] Administration Bisacodyl 10 mg 08/18/25 08:27 Bisacodyl 10 Mg Suppository RECTAL DAILY PRN Constipation Citalopram Hydrobromide 20 mg 08/18/25 09:00 08/22/25 08:38 Citalopram Hydrobromide 20 Mg Tablet PO 20 mg DAILY [facility] Administration Folic Acid 1 mg 08/18/25 09:00 08/22/25 08:38 Folic Acid 1 Mg Tablet PO 1 mg DAILY [facility] Administration Ceftriaxone Sodium 1 gm/ 50 mls @ 100 mls/hr 08/18/25 04:00 08/22/25 03:24 Sodium Chloride IVPB 100 mls/hr Q24H [facility] Administration Ipratropium [place] 0.25 mg 08/17/25 14:44 Ipratropium Br 0.02% Inh Soln 0.5 Mg/2.5 Ml Vial INHALATION DAILY PRN Shortness Of Breath Or Wheezing Lansoprazole 30 mg 08/18/25 09:00 08/22/25 08:38 Lansoprazole Odt 30 Mg Tab.Rap.Dr PO 30 mg DAILY [facility] Administration Magnesium Citrate 296 ml 08/21/25 02:08 Magnesium Citrate 300 Ml Btl PO DAILY PRN Constipation Melatonin 3 mg 08/17/25 21:00 08/21/25 20:44 Melatonin 3 Mg Tablet PO 3 mg HS [facility] Administration Metoprolol Tartrate 50 mg 08/19/25 21:00 08/22/25 08:38 Metoprolol Tartrate 50 Mg Tab FEED TUBE 50 mg Q12HR [facility] Administration Multivitamin Hematinic Therapeutic 1 tablet 08/18/25 09:00 08/22/25 08:39 Multivitamin Hematinic (*Bkc) Tablet PO 1 tablet DAILY [facility] Administration Ondansetron HCl 4 mg 08/17/25 14:44 Ondansetron Hcl Odt 4 Mg Tablet PO QID PRN Nausea And Vomiting Polyethylene Glycol 17 gm 08/18/25 09:00 08/22/25 08:39 Polyethylene Glycol 3350 17 Gm Powd.Pack PO 17 gm QAM [facility] Administration Pregabalin 75 mg 08/18/25 09:00 08/22/25 08:38 Pregabalin (*Crx) 75 Mg Capsule PO 75 mg DAILY [facility] Administration Senna 8.6 mg 08/18/25 09:00 08/22/25 08:38 Sennosides 8.6 Mg Tablet PO 8.6 mg DAILY [facility] Administration Sodium Bicarbonate 650 mg 08/17/25 17:00 08/22/25 08:38 Sodium Bicarbonate Tab 650 Mg Tablet PO 650 mg BID [facility] Administration Thiamine HCl 100 mg 08/17/25 17:00 08/22/25 08:38 Thiamine Hcl 100 Mg Tablet FEED TUBE 100 mg TID [facility] Administration Trazodone HCl 50 mg 08/17/25 21:00 08/21/25 20:44 Trazodone Hcl 50 Mg Tablet PO 50 mg HS [facility] Administration Vitamin D 25 mcg 08/18/25 09:00 08/22/25 08:38 Cholecalciferol (Vitamin D3) 25 Mcg (1,000 Units) Tablet FEED TUBE 25 mcg DAILY [facility] Administration Radiology Results: ITS Impressions Chest/Abdomen/Pelvis CTA 08/17/25 08:16 IMPRESSION: 1. No pulmonary embolus. 2. Left-sided pyelitis. 3. Stool-filled distended rectosigmoid. 4. Decubitus ulcers superficial to the sacrum and ischial tuberosities. No specific evidence of acute osteomyelitis. Chest X-Ray 08/21/25 06:27 IMPRESSION: 1. Persistent right basilar atelectasis. 2. Otherwise no acute abnormality or change. Labs Labs: Laboratory Results - last 24 hr 08/22/25 03:46 WBC 10.8 H RBC 3.20 L Hgb 8.9 L Hct 30.0 L MCV 93.8 MCH 27.8 MCHC 29.7 L RDW 15.1 H Plt Count 269 MPV 10.6 H Immature Gran % (Auto) 0.5 Neut % (Auto) 76.8 H Lymph % (Auto) 14.0 L [place] % (Auto) 5.2 Eos % (Auto) 3.2 Baso % (Auto) 0.3 Lymph # (Auto) 1.50 [place] # (Auto) 0.6 Eos # (Auto) 0.3 Baso # (Auto) 0.0 Abs Immat Gran (auto) 0.05 H Absolute Neuts (auto) 8.3 H Absolute Nucleated RBC 0.000 Band Neutrophils % Not Reportable Nucleated RBC % 0.0 Platelet Estimate Slightly increased Anisocytosis 1+ Schistocytes None seen Sodium 137 Potassium 5.7 H Chloride 105 Carbon Dioxide 22 Anion Gap 10 BUN 62 H Creatinine 1.25 H Estim Creat Clear Calc 36 Estimated GFR 44 L Glucose 92 Calcium 9.0 Total Bilirubin 0.3 AST 42 H ALT 18 Alkaline Phosphatase 172 H Total Protein 8.3 H Albumin 3.7
[2025-08-22] MEDS: SODIUM ZIRCONIUM CYCLOSILICATE 10 GM POWD.PACK FEED TUBE (09:59)
[2025-08-22] MEDS: HYDROcodone/acetaminophen (*CRX) 5-325 MG TABLET 1 TAB PO ×2 (13:39→18:48)
[2025-08-22] MEDS: MELATONIN 3 MG TABLET PO (21:02)
[2025-08-22] MEDS: ACETAMINOPHEN 325 MG TABLET 650 MG PO (22:22)
[2025-08-23] MEDS: HYDROcodone/acetaminophen (*CRX) 5-325 MG TABLET 1 TAB PO ×4 (01:16→18:05)
--- NOTE | 2025-08-23 04:19 | PC.NURSE ---
MD AWARE [facility] DOES NOT GIVE BLOOD RETURN. GAVE THE OKAY TO USE AT THIS TIME.
[2025-08-23] MEDS: cefTRIAXone 1 GM in SODIUM CHLORIDE 0.9% IV 50 ML 100 ML IVPB (04:35)
[2025-08-23 05:42] LABS: Hematocrit 26.2 % (37.0-47.0); Hemoglobin 7.8 g/dL (12.0-15.0); Immature Granulocyte Percent A 0.2 % (0-0.5); Lymphocytes Absolute Auto 1.76 K/mm3 (0.9-3.2); Mean Corpuscular HGB Conc 29.8 g/dl (32-36); Mean Corpuscular Hemoglobin 27.8 pg (26-34); Mean Corpuscular Volume 93.2 fl (80-100); Nucleated Red Blood Cells Absolute Auto 0.000 K/mm3 (0.0-0.012); Nucleated Red Blood Cells Perc 0.0 % (0.0-0.2); Platelet Count Result 226 k/mm3 (150-375); Red Blood Count 2.81 M/mm3 (4.2-5.4); White Blood Count 9.1 K/mm3 (4.5-10.0)
[2025-08-23 05:58] LABS: Alanine Aminotransferase 18 U/L (6-35); Albumin Level 3.2 g/dL (3.5-5.1); Alkaline Phosphatase 149 U/L (38-126); Anion Gap 6 mmol/L (4-12); Aspartate Amino Transferase 34 U/L (14-36); Bilirubin,Total 0.3 mg/dL (0.2-1.3); Blood Urea Nitrogen 59 mg/dL (7-17); Calcium 8.5 mg/dL (8.4-10.2); Carbon Dioxide 27 mmol/L (22-30); Chloride 103 mmol/L (98-107); Estimated CRCL calculation 33 ml/min; Estimated Glomerular Filt Rate 40; Glucose 106 mg/dL (65-110); Magnesium 2.2 mg/dL (1.6-2.3); Potassium 5.3 mmol/L (3.4-5.0); Sodium 136 mmol/L (137-145); Total Protein 7.2 g/dL (6.3-8.2)
[2025-08-23 06:00] VITALS: BP 98/62; PULSE 90; RESP 18; TEMP 36.2; O2SAT 98
[2025-08-23 06:20] LABS: Anisocytosis 1+; Basophilic Stippling Occasional; Hypochromasia 1+
[2025-08-23 06:21] LABS: Schistocytes None Seen
[2025-08-23] MEDS: CENTRAL LINE FLUSH 10 ML IV PUSH ×3 (07:01→22:32)
[2025-08-23 08:00] VITALS: PULSE 90; RESP 18; O2SAT 98
[2025-08-23] MEDS: METOPROLOL TARTRATE 50 MG TAB FEED TUBE ×2 (08:37→22:30)
[2025-08-23] MEDS: CHOLECALCIFEROL (VITAMIN D3) 25 MCG (1,000 UNITS) TABLET FEED TUBE (08:37)
[2025-08-23] MEDS: ASCORBIC ACID 250 MG TABLET PO (08:37)
[2025-08-23] MEDS: SODIUM BICARBONATE TAB 650 MG TABLET PO ×2 (08:37→17:02)
[2025-08-23] MEDS: MULTIVITAMIN HEMATINIC (*BKC) TABLET 1 TABLET PO (08:37)
[2025-08-23] MEDS: CITALOPRAM HYDROBROMIDE 20 MG TABLET PO (08:37)
[2025-08-23] MEDS: PREGABALIN (*CRX) 75 MG CAPSULE PO (08:38)
[2025-08-23] MEDS: LANSOPRAZOLE ODT 30 MG TAB.RAP.DR PO (08:38)
[2025-08-23] MEDS: FOLIC ACID 1 MG TABLET PO (08:38)
[2025-08-23] MEDS: ONDANSETRON HCL ODT 4 MG TABLET PO (08:38)
[2025-08-23] MEDS: THIAMINE HCL 100 MG TABLET FEED TUBE ×3 (08:38→17:02)
[2025-08-23] MEDS: APIXABAN 2.5 MG TABLET FEED TUBE ×2 (08:38→22:30)
[2025-08-23] MEDS: SENNOSIDES 8.6 MG TABLET PO (08:38)
[2025-08-23] MEDS: ARTIFICIAL TEARS OPHTH SOLN 15 ML BOTTLE 1 DROP EACH EYE ×3 (08:39→17:02)
--- NOTE | 2025-08-23 11:31 | P.PNIM_ITS ---
Progress Note: A&P Assessment and Plan (1) Generalized anxiety disorder: Code(s): F41.1 - Generalized anxiety disorder Status: Acute (2) Essential (primary) hypertension: Code(s): I10 - Essential (primary) hypertension Status: Acute (3) Sinus tachycardia: Code(s): R00.0 - Tachycardia, unspecified Status: Acute (4) Abdominal pain: Code(s): R10.9 - Unspecified abdominal pain Status: Acute (5) Stage 3 chronic kidney disease: Code(s): N18.30 - Chronic kidney disease, stage 3 unspecified Status: Chronic (6) UTI (urinary tract infection): Code(s): N39.0 - Urinary tract infection, site not specified Status: Acute Plan 60-year-old female with past medical history of debility, contractures, and multiple decub ulcers 2/2 MS to the ED on 08/16/2025 with abdominal pain from her NH [facility].Pt is a poor historian. Pt was recently here at the end of July and transferred to [facility] for a second opinion for potential RLE amputation. Amputation did not take place Patient was admitted for possible pneumonia and UTI Pneumonia: Atelectasis to the RLL per CT scan. -Continue ceftriaxone & doxy IV Follow culture result with no growth Blood cultures x2 negative to date Chest pain: Elevated troponin Cardiology following Conservative manage due to multiple comorbid condition including contractures No further chest pain reported UTI (urinary tract infection): Continue with ceftriaxone Follow-up urine culture Gastrointestinal tube in situ: Pt eats food via mouth, G tube for meds & tube feed Tube feeding is not working. GI team on board. And G tube replaced -Continuous Jevity 1.5 at 55mls/hr with 150ml free water flushes q4 + Maged Pressure ulcers of skin of multiple topographic sites: Extensive, but denies pain. History of MS, extensive contractures Wound care following Schizoaffective disorder: Monitor Abdominal pain: Constipation has resolved History of pulmonary embolism: Currently on Eliquis 2.5 mg b.i.d. Elevated troponin: Less than 0.012-2.5-3 0.6-3.7. Cardiology consulted. Conservative management recommended. Code status: Full DVT prophylaxis: Eliquis Disposition: Pending improvement Subjective Date/time seen: 08/23/25 11:31 Interval history: per HPI: Pt with a hx of debility, contractures, and multiple decub ulcers 2/2 MS to the ED on 08/16/2025 c/p abd pain from her NH [facility]. Today pt reporting a burning type GERD upper abd pain with potential nausea she cannot definitively differentiate the two; when turned on her side during wound assessment, she reports alleviated abd pain. Pt is a poor historian. Pt was recently here at the end of July and transferred to [facility] for a second opinion for potential RLE amputation. Amputation did not take place, wounds evaluated today with me as well as wound, none looking acutely infected but all in advanced stages. Pt denies SOB but endorses CP when asked if she is having chest pain and but cannot describe the cp. Her white count is noted to be 14, which is down trending from her initial labs in the ED (15.3). Her H&H is 9.1 and 29.8, these are slightly higher than her baseline. Her potassium was found to be 4.9 Her BUN 59 and creatinine 1.19. Her GFR is 46. WBC 14 (down from 15.3 in the ED), continue ceftriaxone and doxy for PNA and possible UTI. 08/20/25 Patient was seen and examined at bedside. She is feeling fine. Denies any chest pain, shortness off breath. Feeding tube was not working. GI team on board. Plan for tube placement today. Reviewed lab test. WBC 8. Continue treatment for pneumonia and UTI. Continue Rocephin and doxycycline. Follow urine culture results 08/21: Night team reports patient complained of chest pain and ordered troponin and cardiology consult. Pending cardiology evaluation. Elevated troponin. Patient has a history of pulmonary embolism and currently on Eliquis 2.5 mg p.o. b.i.d.. Cardiology with the patient no acute intervention. Given morphine 2 mg IV x1. Called legal guardian but unable to reach for an update 08/22/2025: No overnight events reported. Complains of generalized pain no overt chest pain or shortness of breath. 08/23/2025: No overnight events. Continues to have pain in her abdomen. Has not had a bowel movement yet. No chest pain or shortness of breath. Review of Systems Review of Systems: All systems reviewed & are unremarkable except as noted in HPI and below Exam Narrative: APPEARANCE: A&O times 1-2, chronically unwell appearing contracted full body quadriparetic Head: atraumatic. EYES: EOMI, NOSE: Atraumatic NECK: Trachea midline RESPIRATORY: Diminished breath sounds bilaterally no respiratory distress CARDIOVASCULAR: Regular rate rhythm ABDOMINAL: Nondistended, no guarding or rebound MUSCULOSKELETAl: No obvious deformities NEURO: Alert. Functional quadriplegic with 4 extremity contractures SKIN: Multiple wounds in the sacral area Objective Data Vital Signs Vital Signs: Vital Signs - 24 hr 08/22/25 11:49 08/22/25 12:00 08/22/25 14:00 Temperature 97.9 F Pulse Rate 90 89 97 Respiratory Rate 24 H Blood Pressure 96/68 L Pulse Oximetry 99 Oxygen Delivery 08/22/25 15:53 08/22/25 16:00 08/22/25 20:00 Temperature 98.6 F Pulse Rate 100 100 61 Respiratory Rate 22 H 16 Blood Pressure 92/62 L Pulse Oximetry 98 95 Oxygen Delivery Room Air 08/22/25 20:10 08/22/25 21:02 08/23/25 06:00 Temperature 98.6 F 97.1 F L Pulse Rate 61 61 90 Respiratory Rate 16 18 Blood Pressure 96/69 L 98/62 L Pulse Oximetry 95 98 Oxygen Delivery 08/23/25 08:00 Temperature Pulse Rate 90 Respiratory Rate 18 Blood Pressure Pulse Oximetry 98 Oxygen Delivery Room Air Intake/Output Intake/Output: Intake & Output 08/20/25 08/21/25 08/22/25 08/23/25 23:59 23:59 23:59 23:59 Intake Total 1380 3383 3702 1260 Output Total 871 261 9588 450 Balance 880 3033 2302 810 Meds/Results Medications: Active Medications Generic Name Dose Route Start Last Admin Trade Name Freq PRN Reason Stop Dose Admin Acetaminophen 650 mg 08/17/25 14:44 08/22/25 22:22 Acetaminophen 325 Mg Tablet PO 650 mg Q4H PRN Administration pain 1-3 Hydrocodone Bitart/Acetaminophen 1 tab 08/17/25 14:44 08/23/25 06:59 Hydrocodone/Acetaminophen (*Crx) 5-325 Mg Tablet PO 1 tab Q6H PRN Administration Pain 4-6 Amlodipine Besylate 10 mg 08/18/25 09:00 08/23/25 08:38 Amlodipine Besylate 10 Mg Tablet FEED TUBE 10 mg DAILY [facility] Administration Apixaban 2.5 mg 08/17/25 21:00 08/23/25 08:38 Apixaban 2.5 Mg Tablet FEED TUBE 2.5 mg Q12HR [facility] Administration Artificial Tears 1 drop 08/17/25 17:00 08/23/25 08:39 Artificial Tears Ophth Soln 15 Ml Bottle EACH EYE 1 drop TID [facility] Administration Ascorbic Acid 250 mg 08/18/25 09:00 08/23/25 08:37 Ascorbic Acid 250 Mg Tablet PO 250 mg DAILY [facility] Administration Bisacodyl 10 mg 08/18/25 08:27 Bisacodyl 10 Mg Suppository RECTAL DAILY PRN Constipation Citalopram Hydrobromide 20 mg 08/18/25 09:00 08/23/25 08:37 Citalopram Hydrobromide 20 Mg Tablet PO 20 mg DAILY [facility] Administration Folic Acid 1 mg 08/18/25 09:00 08/23/25 08:38 Folic Acid 1 Mg Tablet PO 1 mg DAILY [facility] Administration Heparin Sodium (Beef Lung) 50 units 08/23/25 09:00 08/23/25 08:38 Heparin Flush 50 Units/5 Ml Syringe IV PUSH 50 units QAM [facility] Administration Heparin Sodium (Beef Lung) 50 units 08/23/25 03:41 Heparin Flush 50 Units/5 Ml Syringe IV PUSH PRN PRN after intermittent infusion Heparin Sodium (Beef Lung) 50 units 08/23/25 03:41 Heparin Flush 50 Units/5 Ml Syringe IV PUSH PRN PRN after blood draws Heparin Sodium (Porcine) 500 units 08/23/25 03:41 Heparin Sodium Lock Flush 500 Units/5 Ml Syringe IV PUSH PRN PRN see comments below Ceftriaxone Sodium 1 gm/ 50 mls @ 100 mls/hr 08/18/25 04:00 08/23/25 04:35 Sodium Chloride IVPB 100 mls/hr Q24H [facility] Administration Ipratropium [place] 0.25 mg 08/17/25 14:44 Ipratropium Br 0.02% Inh Soln 0.5 Mg/2.5 Ml Vial INHALATION DAILY PRN Shortness Of Breath Or Wheezing Lansoprazole 30 mg 08/18/25 09:00 08/23/25 08:38 Lansoprazole Odt 30 Mg Tab.Rap.Dr PO 30 mg DAILY [facility] Administration Magnesium Citrate 296 ml 08/21/25 02:08 Magnesium Citrate 300 Ml Btl PO DAILY PRN Constipation Melatonin 3 mg 08/17/25 21:00 08/22/25 21:02 Melatonin 3 Mg Tablet PO 3 mg HS [facility] Administration Metoprolol Tartrate 50 mg 08/19/25 21:00 08/23/25 08:37 Metoprolol Tartrate 50 Mg Tab FEED TUBE 50 mg Q12HR [facility] Administration Morphine Sulfate 4 mg 08/23/25 03:41 Morphine Sulfate (*Crx) 4 Mg/Ml Inj IV PUSH Q12HR PRN Pain Rated 7-10 Multivitamin Hematinic Therapeutic 1 tablet 08/18/25 09:00 08/23/25 08:37 Multivitamin Hematinic (*Bkc) Tablet PO 1 tablet DAILY [facility] Administration Ondansetron HCl 4 mg 08/17/25 14:44 08/23/25 08:38 Ondansetron Hcl Odt 4 Mg Tablet PO 4 mg QID PRN Administration Nausea And Vomiting Polyethylene Glycol 17 gm 08/18/25 09:00 08/23/25 08:37 Polyethylene Glycol 3350 17 Gm Powd.Pack PO 17 gm QAM [facility] Administration Pregabalin 75 mg 08/18/25 09:00 08/23/25 08:38 Pregabalin (*Crx) 75 Mg Capsule PO 75 mg DAILY [facility] Administration Senna 8.6 mg 08/18/25 09:00 08/23/25 08:38 Sennosides 8.6 Mg Tablet PO 8.6 mg DAILY [facility] Administration Sodium Bicarbonate 650 mg 08/17/25 17:00 08/23/25 08:37 Sodium Bicarbonate Tab 650 Mg Tablet PO 650 mg BID [facility] Administration Sodium Chloride 10 ml 08/23/25 06:00 08/23/25 07:01 Central Line Flush IV PUSH 10 ml Q8HR [facility] Administration Thiamine HCl 100 mg 08/17/25 17:00 08/23/25 08:38 Thiamine Hcl 100 Mg Tablet FEED TUBE 100 mg TID [facility] Administration Trazodone HCl 50 mg 08/17/25 21:00 08/22/25 21:02 Trazodone Hcl 50 Mg Tablet PO 50 mg HS [facility] Administration Vitamin D 25 mcg 08/18/25 09:00 08/23/25 08:37 Cholecalciferol (Vitamin D3) 25 Mcg (1,000 Units) Tablet FEED TUBE 25 mcg DAILY [facility] Administration Radiology Results: ITS Impressions Chest/Abdomen/Pelvis CTA 08/17/25 08:16 IMPRESSION: 1. No pulmonary embolus. 2. Left-sided pyelitis. 3. Stool-filled distended rectosigmoid. 4. Decubitus ulcers superficial to the sacrum and ischial tuberosities. No specific evidence of acute osteomyelitis. Chest X-Ray 08/21/25 06:27 IMPRESSION: 1. Persistent right basilar atelectasis. 2. Otherwise no acute abnormality or change. Labs Labs: Laboratory Results - last 24 hr 08/23/25 05:35 WBC 9.1 RBC 2.81 L Hgb 7.8 L Hct 26.2 L MCV 93.2 MCH 27.8 MCHC 29.8 L RDW 15.3 H Plt Count 226 MPV 10.0 Immature Gran % (Auto) 0.2 Neut % (Auto) 70.2 Lymph % (Auto) 19.3 [place] % (Auto) 6.5 Eos % (Auto) 3.5 Baso % (Auto) 0.3 Lymph # (Auto) 1.76 [place] # (Auto) 0.6 Eos # (Auto) 0.3 Baso # (Auto) 0.0 Abs Immat Gran (auto) 0.02 Absolute Neuts (auto) 6.4 Absolute Nucleated RBC 0.000 Band Neutrophils % Not Reportable Nucleated RBC % 0.0 Platelet Estimate Adequate Hypochromasia 1+ Basophilic Stippling Occasional Anisocytosis 1+ Schistocytes None seen Sodium 136 L Potassium 5.3 H Chloride 103 Carbon Dioxide 27 Anion Gap 6 BUN 59 H Creatinine 1.36 H Estim Creat Clear Calc 33 Estimated GFR 40 L Glucose 106 Calcium 8.5 Magnesium 2.2 Total Bilirubin 0.3 AST 34 ALT 18 Alkaline Phosphatase 149 H Total Protein 7.2 Albumin 3.2 L
[2025-08-23] MEDS: SODIUM ZIRCONIUM CYCLOSILICATE 10 GM POWD.PACK FEED TUBE (12:25)
[2025-08-23 14:00] VITALS: BP 93/56; PULSE 92; RESP 14; TEMP 37.1; O2SAT 98
[2025-08-23] MEDS: MORPHINE SULFATE (*CRX) 4 MG/ML INJ IV PUSH (14:09)
[2025-08-23 22:00] VITALS: BP 95/70; PULSE 98; RESP 17; TEMP 37.7; O2SAT 94
[2025-08-23 22:30] VITALS: PULSE 88
[2025-08-23] MEDS: MELATONIN 3 MG TABLET PO (22:30)
[2025-08-23 22:34] VITALS: O2SAT 98
[2025-08-24] MEDS: HYDROcodone/acetaminophen (*CRX) 5-325 MG TABLET 1 TAB PO ×2 (00:24→21:35)
[2025-08-24] MEDS: cefTRIAXone 1 GM in SODIUM CHLORIDE 0.9% IV 50 ML 100 ML IVPB (03:14)
[2025-08-24 05:37] VITALS: BP 95/68; PULSE 90; RESP 16; TEMP 36.4; O2SAT 98
[2025-08-24] MEDS: CENTRAL LINE FLUSH 10 ML IV PUSH ×3 (05:56→22:00)
[2025-08-24 06:02] LABS: Hematocrit 27.0 % (37.0-47.0); Hemoglobin 7.9 g/dL (12.0-15.0); Immature Granulocyte Percent A 0.4 % (0-0.5); Immature Platelet Fraction Pct 3.0 % (0.9-11.2); Lymphocytes Absolute Auto 1.55 K/mm3 (0.9-3.2); Mean Corpuscular HGB Conc 29.3 g/dl (32-36); Mean Corpuscular Hemoglobin 28.0 pg (26-34); Mean Corpuscular Volume 95.7 fl (80-100); Nucleated Red Blood Cells Absolute Auto 0.000 K/mm3 (0.0-0.012); Nucleated Red Blood Cells Perc 0.0 % (0.0-0.2); Platelet Count Result 211 k/mm3 (150-375); Red Blood Count 2.82 M/mm3 (4.2-5.4); White Blood Count 10.1 K/mm3 (4.5-10.0)
[2025-08-24 06:45] LABS: Alanine Aminotransferase 17 U/L (6-35); Albumin Level 3.4 g/dL (3.5-5.1); Alkaline Phosphatase 164 U/L (38-126); Anion Gap 9 mmol/L (4-12); Aspartate Amino Transferase 30 U/L (14-36); Bilirubin,Total 0.2 mg/dL (0.2-1.3); Blood Urea Nitrogen 80 mg/dL (7-17); Calcium 8.6 mg/dL (8.4-10.2); Carbon Dioxide 26 mmol/L (22-30); Chloride 100 mmol/L (98-107); Estimated CRCL calculation 34 ml/min; Estimated Glomerular Filt Rate 41; Glucose 118 mg/dL (65-110); Potassium 5.5 mmol/L (3.4-5.0); Sodium 135 mmol/L (137-145); Total Protein 7.7 g/dL (6.3-8.2)
[2025-08-24 07:07] LABS: Anisocytosis Occasional; Hypochromasia 1+; Ovalocytes Occasional
[2025-08-24 07:08] LABS: Schistocytes None Seen; Stomatocytes Occasional
--- NOTE | 2025-08-24 09:06 | P.PNIM_ITS ---
Progress Note: A&P Assessment and Plan (1) Generalized anxiety disorder: Code(s): F41.1 - Generalized anxiety disorder Status: Acute (2) Essential (primary) hypertension: Code(s): I10 - Essential (primary) hypertension Status: Acute (3) Sinus tachycardia: Code(s): R00.0 - Tachycardia, unspecified Status: Acute (4) Abdominal pain: Code(s): R10.9 - Unspecified abdominal pain Status: Acute (5) Stage 3 chronic kidney disease: Code(s): N18.30 - Chronic kidney disease, stage 3 unspecified Status: Chronic (6) UTI (urinary tract infection): Code(s): N39.0 - Urinary tract infection, site not specified Status: Acute Plan 60-year-old female with past medical history of debility, contractures, and multiple decub ulcers 2/2 MS to the ED on 08/16/2025 with abdominal pain from her [facility].Pt is a poor historian. Pt was recently here at the end of July and transferred to [facility] for a second opinion for potential RLE amputation. Amputation did not take place Patient was admitted for possible pneumonia and UTI Pneumonia: Atelectasis to the RLL per CT scan. -Continue ceftriaxone & doxy IV Follow culture result with no growth Blood cultures x2 negative to date Chest pain: Elevated troponin Cardiology following Conservative manage due to multiple comorbid condition including contractures No further chest pain reported UTI (urinary tract infection): Continue with ceftriaxone Follow-up urine culture Gastrointestinal tube in situ: Pt eats food via mouth, G tube for meds & tube feed Tube feeding is not working. GI team on board. And G tube replaced -Continuous Jevity 1.5 at 55mls/hr with 150ml free water flushes q4 + Maged Pressure ulcers of skin of multiple topographic sites: Extensive, but denies pain. History of MS, extensive contractures Wound care following Schizoaffective disorder: Monitor Abdominal pain: Constipation has resolved History of pulmonary embolism: Currently on Eliquis 2.5 mg b.i.d. Elevated troponin: Less than 0.012-2.5-3 0.6-3.7. Cardiology consulted. Conservative management recommended. Code status: Full DVT prophylaxis: Eliquis Disposition: Pending improvement Subjective Date/time seen: 08/24/25 09:06 Interval history: per HPI: Pt with a hx of debility, contractures, and multiple decub ulcers 2/2 MS to the ED on 08/16/2025 c/p abd pain from her NH [facility]. Today pt reporting a burning type GERD upper abd pain with potential nausea she cannot definitively differentiate the two; when turned on her side during wound assessment, she reports alleviated abd pain. Pt is a poor historian. Pt was recently here at the end of July and transferred to [facility] for a second opinion for potential RLE amputation. Amputation did not take place, wounds evaluated today with me as well as wound, none looking acutely infected but all in advanced stages. Pt denies SOB but endorses CP when asked if she is having chest pain and but cannot describe the cp. Her white count is noted to be 14, which is down trending from her initial labs in the ED (15.3). Her H&H is 9.1 and 29.8, these are slightly higher than her baseline. Her potassium was found to be 4.9 Her BUN 59 and creatinine 1.19. Her GFR is 46. WBC 14 (down from 15.3 in the ED), continue ceftriaxone and doxy for PNA and possible UTI. 08/20/25 Patient was seen and examined at bedside. She is feeling fine. Denies any chest pain, shortness off breath. Feeding tube was not working. GI team on board. Plan for tube placement today. Reviewed lab test. WBC 8. Continue treatment for pneumonia and UTI. Continue Rocephin and doxycycline. Follow urine culture results 08/21: Night team reports patient complained of chest pain and ordered troponin and cardiology consult. Pending cardiology evaluation. Elevated troponin. Patient has a history of pulmonary embolism and currently on Eliquis 2.5 mg p.o. b.i.d.. Cardiology with the patient no acute intervention. Given morphine 2 mg IV x1. Called legal guardian but unable to reach for an update 08/22/2025: No overnight events reported. Complains of generalized pain no overt chest pain or shortness of breath. 08/23/2025: No overnight events. Continues to have pain in her abdomen. Has not had a bowel movement yet. No chest pain or shortness of breath. 08/24: Ordered a KUB. No acute events overnight. Monitor for bowel movement and KUB results Review of Systems Review of Systems: All systems reviewed & are unremarkable except as noted in HPI and below Exam Narrative: APPEARANCE: A&O times 1-2, chronically unwell appearing contracted full body quadriparetic Head: atraumatic. EYES: EOMI, NOSE: Atraumatic NECK: Trachea midline RESPIRATORY: Diminished breath sounds bilaterally no respiratory distress CARDIOVASCULAR: Regular rate rhythm ABDOMINAL: Nondistended, no guarding or rebound MUSCULOSKELETAl: No obvious deformities NEURO: Alert. Functional quadriplegic with 4 extremity contractures SKIN: Multiple wounds in the sacral area Const: General: comfortable and no acute distress Orientation/consciousness: oriented to person HENMT: Face/Nose/Sinus: Normal nares present Other: tacky mucous membranes Eyes: Other: Nystagmus L eye Neck: Neck: supple Resp: Effort & Inspection: normal respiratory effort Auscultation: clear to auscultation bilaterally Other: diminished LS in the bases Cardio: Rate: tachycardic (appears to be chronic) Rhythm: regular rhythm GI: Inspection: non-distended Auscultation: normal bowel sounds : External Female Exam: normal external appearance Other: observed during wound exam/cleaning up pt Skin: Other: Multiple wounds, refer to wound comprehensive notes. All wounds redressed today. Neuro: General: oriented to person Speech: normal speech Other: Unable to assess strength due to MS contractures, sensation limited in BLE Extrem: Other: 4 limb contracture Psych: Affect: normal affect Judgement: Poor judgement present (Psych) Objective Data Vital Signs Vital Signs: Vital Signs - 24 hr 08/23/25 14:00 08/23/25 22:00 08/23/25 22:30 Temperature 98.8 F 99.8 F H Pulse Rate 92 98 88 Respiratory Rate 14 17 Blood Pressure 93/56 L 95/70 L Pulse Oximetry 98 94 Oxygen Delivery 08/23/25 22:34 08/24/25 05:37 Temperature 97.6 F Pulse Rate 90 Respiratory Rate 16 Blood Pressure 95/68 L Pulse Oximetry 98 98 Oxygen Delivery Room Air Intake/Output Intake/Output: Intake & Output 08/21/25 08/22/25 08/23/25 08/24/25 23:59 23:59 23:59 23:59 Intake Total 3383 3702 1310 50 Output Total 350 1400 450 300 Balance 3033 2302 860 -250 Meds/Results Medications: Active Medications Generic Name Dose Route Start Last Admin Trade Name Freq PRN Reason Stop Dose Admin Acetaminophen 650 mg 08/17/25 14:44 08/22/25 22:22 Acetaminophen 325 Mg Tablet PO 650 mg Q4H PRN Administration pain 1-3 Hydrocodone Bitart/Acetaminophen 1 tab 08/17/25 14:44 08/24/25 00:24 Hydrocodone/Acetaminophen (*Crx) 5-325 Mg Tablet PO 1 tab Q6H PRN Administration Pain 4-6 Amlodipine Besylate 10 mg 08/18/25 09:00 08/23/25 08:38 Amlodipine Besylate 10 Mg Tablet FEED TUBE 10 mg DAILY MERLYN Administration Apixaban 2.5 mg 08/17/25 21:00 08/23/25 22:30 Apixaban 2.5 Mg Tablet FEED TUBE 2.5 mg Q12HR MERLYN Administration Artificial Tears 1 drop 08/17/25 17:00 08/23/25 17:02 Artificial Tears Ophth Soln 15 Ml Bottle EACH EYE 1 drop TID MERLYN Administration Ascorbic Acid 250 mg 08/18/25 09:00 08/23/25 08:37 Ascorbic Acid 250 Mg Tablet PO 250 mg DAILY MERLYN Administration Bisacodyl 10 mg 08/18/25 08:27 Bisacodyl 10 Mg Suppository RECTAL DAILY PRN Constipation Citalopram Hydrobromide 20 mg 08/18/25 09:00 08/23/25 08:37 Citalopram Hydrobromide 20 Mg Tablet PO 20 mg DAILY MERLYN Administration Folic Acid 1 mg 08/18/25 09:00 08/23/25 08:38 Folic Acid 1 Mg Tablet PO 1 mg DAILY MERLYN Administration Heparin Sodium (Beef Lung) 50 units 08/23/25 09:00 08/23/25 08:38 Heparin Flush 50 Units/5 Ml Syringe IV PUSH 50 units QAM MERLYN Administration Heparin Sodium (Beef Lung) 50 units 08/23/25 03:41 Heparin Flush 50 Units/5 Ml Syringe IV PUSH PRN PRN after intermittent infusion Heparin Sodium (Beef Lung) 50 units 08/23/25 03:41 Heparin Flush 50 Units/5 Ml Syringe IV PUSH PRN PRN after blood draws Heparin Sodium (Porcine) 500 units 08/23/25 03:41 Heparin Sodium Lock Flush 500 Units/5 Ml Syringe IV PUSH PRN PRN see comments below Ceftriaxone Sodium 1 gm/ 50 mls @ 100 mls/hr 08/18/25 04:00 08/24/25 03:44 Sodium Chloride IVPB Infused Q24H MERLYN Infusion Ipratropium [place] 0.25 mg 08/17/25 14:44 Ipratropium Br 0.02% Inh Soln 0.5 Mg/2.5 Ml Vial INHALATION DAILY PRN Shortness Of Breath Or Wheezing Lansoprazole 30 mg 08/18/25 09:00 08/23/25 08:38 Lansoprazole Odt 30 Mg Tab.Rap.Dr PO 30 mg DAILY MERLYN Administration Magnesium Citrate 296 ml 08/21/25 02:08 Magnesium Citrate 300 Ml Btl PO DAILY PRN Constipation Melatonin 3 mg 08/17/25 21:00 08/23/25 22:30 Melatonin 3 Mg Tablet PO 3 mg HS MERLYN Administration Metoprolol Tartrate 50 mg 08/19/25 21:00 08/23/25 22:30 Metoprolol Tartrate 50 Mg Tab FEED TUBE 50 mg Q12HR MERLYN Administration Morphine Sulfate 4 mg 08/23/25 03:41 08/23/25 14:09 Morphine Sulfate (*Crx) 4 Mg/Ml Inj IV PUSH 4 mg Q12HR PRN Administration Pain Rated 7-10 Multivitamin Hematinic Therapeutic 1 tablet 08/18/25 09:00 08/23/25 08:37 Multivitamin Hematinic (*Bkc) Tablet PO 1 tablet DAILY MERLYN Administration Ondansetron HCl 4 mg 08/17/25 14:44 08/23/25 08:38 Ondansetron Hcl Odt 4 Mg Tablet PO 4 mg QID PRN Administration Nausea And Vomiting Polyethylene Glycol 17 gm 08/18/25 09:00 08/23/25 08:37 Polyethylene Glycol 3350 17 Gm Powd.Pack PO 17 gm QAM MERLYN Administration Pregabalin 75 mg 08/18/25 09:00 08/23/25 08:38 Pregabalin (*Crx) 75 Mg Capsule PO 75 mg DAILY MERLYN Administration Senna 8.6 mg 08/18/25 09:00 08/23/25 08:38 Sennosides 8.6 Mg Tablet PO 8.6 mg DAILY MERLYN Administration Sodium Bicarbonate 650 mg 08/17/25 17:00 08/23/25 17:02 Sodium Bicarbonate Tab 650 Mg Tablet PO 650 mg BID MERLYN Administration Sodium Chloride 10 ml 08/23/25 06:00 08/24/25 05:56 Central Line Flush IV PUSH 10 ml Q8HR MERLYN Administration Thiamine HCl 100 mg 08/17/25 17:00 08/23/25 17:02 Thiamine Hcl 100 Mg Tablet FEED TUBE 100 mg TID MERLYN Administration Trazodone HCl 50 mg 08/17/25 21:00 08/23/25 22:30 Trazodone Hcl 50 Mg Tablet PO 50 mg HS MERLYN Administration Vitamin D 25 mcg 08/18/25 09:00 08/23/25 08:37 Cholecalciferol (Vitamin D3) 25 Mcg (1,000 Units) Tablet FEED TUBE 25 mcg DAILY MERLYN Administration Radiology Results: ITS Impressions Chest/Abdomen/Pelvis CTA 08/17/25 08:16 IMPRESSION: 1. No pulmonary embolus. 2. Left-sided pyelitis. 3. Stool-filled distended rectosigmoid. 4. Decubitus ulcers superficial to the sacrum and ischial tuberosities. No specific evidence of acute osteomyelitis. Chest X-Ray 08/21/25 06:27 IMPRESSION: 1. Persistent right basilar atelectasis. 2. Otherwise no acute abnormality or change. Labs Labs: Laboratory Results - last 24 hr 08/24/25 05:42 WBC 10.1 H RBC 2.82 L Hgb 7.9 L Hct 27.0 L MCV 95.7 MCH 28.0 MCHC 29.3 L RDW 15.2 H Plt Count 211 MPV 11.0 H Immature Gran % (Auto) 0.4 Neut % (Auto) 75.7 H Lymph % (Auto) 15.3 L Howell % (Auto) 4.9 Eos % (Auto) 3.5 Baso % (Auto) 0.2 Lymph # (Auto) 1.55 Howell # (Auto) 0.5 Eos # (Auto) 0.4 H Baso # (Auto) 0.0 Abs Immat Gran (auto) 0.04 H Absolute Neuts (auto) 7.7 H Absolute Nucleated RBC 0.000 Band Neutrophils % Not Reportable Nucleated RBC % 0.0 Platelet Estimate Adequate % Immature Plt Fraction 3.0 Hypochromasia 1+ Anisocytosis Occasional Ovalocytes Occasional Stomatocytes Occasional Schistocytes None seen Sodium 135 L Potassium 5.5 H Chloride 100 Carbon Dioxide 26 Anion Gap 9 BUN 80 H D Creatinine 1.33 H Estim Creat Clear Calc 34 Estimated GFR 41 L Glucose 118 H Calcium 8.6 Total Bilirubin 0.2 AST 30 ALT 17 Alkaline Phosphatase 164 H Total Protein 7.7 Albumin 3.4 L Quality VTE Prophylaxis VTE prophylaxis: pharmacologic ordered Hospitalist MIPS Advance Care Plan I have confirmed that the patient's Advanced Care Plan is present, code status is documented, or surrogate decision maker is listed in patient medical record.: Yes Medication Reconciliation I have utilized all available resources to obtain, update and review the patients current medications (includes all prescriptions, OTC, herbals, cannabis, and nutritional supplements).: Yes
[2025-08-24] MEDS: MULTIVITAMIN HEMATINIC (*BKC) TABLET 1 TABLET PO (09:58)
[2025-08-24] MEDS: SENNOSIDES 8.6 MG TABLET PO (09:58)
[2025-08-24] MEDS: LANSOPRAZOLE ODT 30 MG TAB.RAP.DR PO (09:58)
[2025-08-24 09:59] VITALS: PULSE 98
[2025-08-24] MEDS: APIXABAN 2.5 MG TABLET FEED TUBE ×2 (09:59→21:35)
[2025-08-24] MEDS: METOPROLOL TARTRATE 50 MG TAB FEED TUBE ×2 (09:59→21:35)
[2025-08-24] MEDS: PREGABALIN (*CRX) 75 MG CAPSULE PO (09:59)
[2025-08-24] MEDS: CHOLECALCIFEROL (VITAMIN D3) 25 MCG (1,000 UNITS) TABLET FEED TUBE (09:59)
[2025-08-24] MEDS: ASCORBIC ACID 250 MG TABLET PO (09:59)
[2025-08-24] MEDS: SODIUM BICARBONATE TAB 650 MG TABLET PO ×2 (10:00→16:38)
[2025-08-24] MEDS: CITALOPRAM HYDROBROMIDE 20 MG TABLET PO (10:00)
[2025-08-24] MEDS: THIAMINE HCL 100 MG TABLET FEED TUBE ×3 (10:00→16:38)
[2025-08-24] MEDS: FOLIC ACID 1 MG TABLET PO (10:00)
[2025-08-24 14:00] VITALS: BP 93/52; PULSE 93; RESP 14; TEMP 36.3; O2SAT 99
[2025-08-24 21:35] VITALS: PULSE 105
[2025-08-24] MEDS: MELATONIN 3 MG TABLET PO (21:35)
[2025-08-24 22:00] VITALS: BP 111/72; PULSE 107; RESP 18; TEMP 36.6; O2SAT 96
[2025-08-25] MEDS: cefTRIAXone 1 GM in SODIUM CHLORIDE 0.9% IV 50 ML 100 ML IVPB (03:26)
[2025-08-25] MEDS: MORPHINE SULFATE (*CRX) 4 MG/ML INJ IV PUSH (03:41)
[2025-08-25 05:37] VITALS: BP 97/65; PULSE 102; RESP 16; TEMP 36.6; O2SAT 92
[2025-08-25] MEDS: CENTRAL LINE FLUSH 10 ML IV PUSH ×2 (05:43→18:09)
[2025-08-25 06:43] LABS: Hematocrit 29.3 % (37.0-47.0); Hemoglobin 8.8 g/dL (12.0-15.0); Immature Granulocyte Percent A 0.6 % (0-0.5); Lymphocytes Absolute Auto 1.59 K/mm3 (0.9-3.2); Mean Corpuscular HGB Conc 30.0 g/dl (32-36); Mean Corpuscular Hemoglobin 28.1 pg (26-34); Mean Corpuscular Volume 93.6 fl (80-100); Nucleated Red Blood Cells Absolute Auto 0.000 K/mm3 (0.0-0.012); Nucleated Red Blood Cells Perc 0.0 % (0.0-0.2); Platelet Count Result 255 k/mm3 (150-375); Red Blood Count 3.13 M/mm3 (4.2-5.4); White Blood Count 8.5 K/mm3 (4.5-10.0)
[2025-08-25 07:02] LABS: Alanine Aminotransferase 18 U/L (6-35); Albumin Level 3.6 g/dL (3.5-5.1); Alkaline Phosphatase 180 U/L (38-126); Anion Gap 5 mmol/L (4-12); Aspartate Amino Transferase 43 U/L (14-36); Bilirubin,Total 0.3 mg/dL (0.2-1.3); Blood Urea Nitrogen 79 mg/dL (7-17); Calcium 8.9 mg/dL (8.4-10.2); Carbon Dioxide 30 mmol/L (22-30); Chloride 99 mmol/L (98-107); Estimated CRCL calculation 33 ml/min; Estimated Glomerular Filt Rate 40; Glucose 103 mg/dL (65-110); Potassium 5.7 mmol/L (3.4-5.0); Sodium 134 mmol/L (137-145); Total Protein 8.2 g/dL (6.3-8.2)
[2025-08-25] MEDS: HYDROcodone/acetaminophen (*CRX) 5-325 MG TABLET 1 TAB PO ×2 (08:50→21:58)
[2025-08-25 08:51] VITALS: PULSE 102
[2025-08-25] MEDS: FOLIC ACID 1 MG TABLET PO (08:51)
[2025-08-25] MEDS: ASCORBIC ACID 250 MG TABLET PO (08:51)
[2025-08-25] MEDS: CHOLECALCIFEROL (VITAMIN D3) 25 MCG (1,000 UNITS) TABLET FEED TUBE (08:51)
[2025-08-25] MEDS: CITALOPRAM HYDROBROMIDE 20 MG TABLET PO (08:51)
[2025-08-25] MEDS: APIXABAN 2.5 MG TABLET FEED TUBE ×2 (08:51→21:58)
[2025-08-25] MEDS: PREGABALIN (*CRX) 75 MG CAPSULE PO (08:51)
[2025-08-25] MEDS: SENNOSIDES 8.6 MG TABLET PO (08:51)
[2025-08-25] MEDS: THIAMINE HCL 100 MG TABLET FEED TUBE ×3 (08:51→18:09)
[2025-08-25] MEDS: LANSOPRAZOLE ODT 30 MG TAB.RAP.DR PO (08:51)
[2025-08-25] MEDS: METOPROLOL TARTRATE 50 MG TAB FEED TUBE ×2 (08:51→21:58)
[2025-08-25] MEDS: SODIUM BICARBONATE TAB 650 MG TABLET PO ×2 (08:52→18:09)
[2025-08-25] MEDS: ARTIFICIAL TEARS OPHTH SOLN 15 ML BOTTLE 1 DROP EACH EYE ×3 (08:53→18:09)
[2025-08-25] MEDS: MULTIVITAMIN HEMATINIC (*BKC) TABLET 1 TABLET PO (08:53)
--- NOTE | 2025-08-25 11:09 | PCNFU ---
Addendum entered by Brynn Garcia, RD, LDN 08/25/25 12:05: Spoke with Dr. Bailey and he is in agreement to switch tube feeding formula to Nepro. Will order goal rate at 45ml/hr Original Note: Nutrition Follow-Up Complete: Inability to meet needs via PO as evidenced by need for tube feeding Goal:Meet estimated needs to support wound healing Pt meeting goal via tube feedings, continue with same goal NEW goal: improved K+ Pt current nutrition is HHD, Tube feeding: Jevity 1.5 @ 55ml/hr with 150ml flush q 4 hrs, to provide 1815kcals, 77g protein, 1819ml free water over 22hr. AYALA BID for wound healing Nutrition recommendation: continue with current plan of care Last recorded weight is 57.4 kg. Bowel Motility: +BM 08/25 Labs Reviewed: Hgb:8.8, HCT:29.3, K:5.7, GFR:40, BUN:79, Cr:1.3, Glu:116 Meds Noted: miralax, MVI, Eliquis, Vit c Skin: multiple stage III and IV pressure injuries Additional Notes: Pt continues on the same tube feeding, meeting estimated needs, pt tolerating well. Noted elevated K: 5.7, and BUN/Cr significantly went up. May need to consider Nepro for tube feeding due to elevated renal labs. Recommendation would be for Nepro at goal rate of 45ml/hr to provide 1782kcals, 80g protein, 1619ml free water. Monitor tube feeding, intake, wt, labs, skin. Follow up every Sunday and Sunday.
[2025-08-25] MEDS: LORATADINE 5 MG TABLET PO (13:14)
[2025-08-25 14:00] VITALS: PULSE 93; RESP 16; TEMP 36.4; O2SAT 96
--- NOTE | 2025-08-25 14:45 | P.PNIM_ITS ---
Progress Note: A&P Assessment and Plan (1) Generalized anxiety disorder: Code(s): F41.1 - Generalized anxiety disorder Status: Acute (2) Essential (primary) hypertension: Code(s): I10 - Essential (primary) hypertension Status: Acute (3) Sinus tachycardia: Code(s): R00.0 - Tachycardia, unspecified Status: Acute (4) Abdominal pain: Code(s): R10.9 - Unspecified abdominal pain Status: Acute (5) Stage 3 chronic kidney disease: Code(s): N18.30 - Chronic kidney disease, stage 3 unspecified Status: Chronic (6) UTI (urinary tract infection): Code(s): N39.0 - Urinary tract infection, site not specified Status: Acute Plan 60-year-old female with past medical history of debility, contractures, and multiple decub ulcers 2/2 MS to the ED on 08/16/2025 with abdominal pain from her [facility].Pt is a poor historian. Pt was recently here at the end of July and transferred to [facility] for a second opinion for potential RLE amputation. Amputation did not take place Patient was admitted for possible pneumonia and UTI Pneumonia: Atelectasis to the RLL per CT scan. -Continue ceftriaxone & doxy IV Follow culture result with no growth Blood cultures x2 negative to date Hyperkalemia K is trending up, tube feeding formula adjusted if K trends down tomorrow, discharge Chest pain: Elevated troponin Cardiology following Conservative manage due to multiple comorbid condition including contractures No further chest pain reported UTI (urinary tract infection): Continue with ceftriaxone Follow-up urine culture Gastrointestinal tube in situ: Pt eats food via mouth, G tube for meds & tube feed Tube feeding is not working. GI team on board. And G tube replaced -Continuous Jevity 1.5 at 55mls/hr with 150ml free water flushes q4 + Maged Pressure ulcers of skin of multiple topographic sites: Extensive, but denies pain. History of MS, extensive contractures Wound care following Schizoaffective disorder: Monitor Abdominal pain: Constipation has resolved History of pulmonary embolism: Currently on Eliquis 2.5 mg b.i.d. Elevated troponin: Less than 0.012-2.5-3 0.6-3.7. Cardiology consulted. Conservative management recommended. Code status: Full DVT prophylaxis: Eliquis Disposition: Pending K trending down Possibel discharge tomorrow Subjective Date/time seen: 08/25/25 14:45 Interval history: per HPI: Pt with a hx of debility, contractures, and multiple decub ulcers 2/2 MS to the ED on 08/16/2025 c/p abd pain from her [facility]. Today pt reporting a burning type GERD upper abd pain with potential nausea she cannot definitively differentiate the two; when turned on her side during wound assessment, she reports alleviated abd pain. Pt is a poor historian. Pt was recently here at the end of July and transferred to [facility] for a second opinion for potential RLE amputation. Amputation did not take place, wounds evaluated today with me as wel l as wound, none looking acutely infected but all in advanced stages. Pt denies SOB but endorses CP when asked if she is having chest pain and but cannot describe the cp. Her white count is noted to be 14, which is down trending from her initial labs in the ED (15.3). Her H&H is 9.1 and 29.8, these are slightly higher than her baseline. Her potassium was found to be 4.9 Her BUN 59 and creatinine 1.19. Her GFR is 46. WBC 14 (down from 15.3 in the ED), continue ceftriaxone and doxy for PNA and possible UTI. 08/20/25 Patient was seen and examined at bedside. She is feeling fine. Denies any chest pain, shortness off breath. Feeding tube was not working. GI team on board. Plan for tube placement today. Reviewed lab test. WBC 8. Continue treatment for pneumonia and UTI. Continue Rocephin and doxycycline. Follow urine culture results 08/21: Night team reports patient complained of chest pain and ordered troponin and cardiology consult. Pending cardiology evaluation. Elevated troponin. Patient has a history of pulmonary embolism and currently on Eliquis 2.5 mg p.o. b.i.d.. Cardiology with the patient no acute intervention. Given morphine 2 mg IV x1. Called legal guardian but unable to reach for an update 08/22/2025: No overnight events reported. Complains of generalized pain no overt chest pain or shortness of breath. 08/23/2025: No overnight events. Continues to have pain in her abdomen. Has not had a bowel movement yet. No chest pain or shortness of breath. 08/24: Ordered a KUB. No acute events overnight. Monitor for bowel movement and KUB results 08/25: K appears to be trending up, tube feeding formular adjusted, monitor one more day possible discharge tomorrow Review of Systems Review of Systems: All systems reviewed & are unremarkable except as noted in HPI and below Exam Narrative: APPEARANCE: A&O times 1-2, chronically unwell appearing contracted full body quadriparetic Head: atraumatic. EYES: EOMI, NOSE: Atraumatic NECK: Trachea midline RESPIRATORY: Diminished breath sounds bilaterally no respiratory distress CARDIOVASCULAR: Regular rate rhythm ABDOMINAL: Nondistended, no guarding or rebound MUSCULOSKELETAl: No obvious deformities NEURO: Alert. Functional quadriplegic with 4 extremity contractures SKIN: Multiple wounds in the sacral area Const: General: comfortable and no acute distress Orientation/consciousness: oriented to person HENMT: Face/Nose/Sinus: Normal nares present Other: tacky mucous membranes Eyes: Other: Nystagmus L eye Neck: Neck: supple Resp: Effort & Inspection: normal respiratory effort Auscultation: clear to auscultation bilaterally Other: diminished LS in the bases Cardio: Rate: tachycardic (appears to be chronic) Rhythm: regular rhythm GI: Inspection: non-distended Auscultation: normal bowel sounds : External Female Exam: normal external appearance Other: observed during wound exam/cleaning up pt Skin: Other: Multiple wounds, refer to wound comprehensive notes. All wounds redressed today. Neuro: General: oriented to person Speech: normal speech Other: Unable to assess strength due to MS contractures, sensation limited in BLE Extrem: Other: 4 limb contracture Psych: Affect: normal affect Judgement: Poor judgement present (Psych) Objective Data Vital Signs Vital Signs: Vital Signs - 24 hr 08/24/25 21:35 08/24/25 21:37 08/24/25 22:00 Temperature 97.9 F Pulse Rate 105 H 107 H Respiratory Rate 18 Blood Pressure 111/72 Pulse Oximetry 96 Oxygen Delivery Room Air 08/25/25 05:37 08/25/25 08:00 08/25/25 08:51 Temperature 97.9 F Pulse Rate 102 H 102 H Respiratory Rate 16 Blood Pressure 97/65 L Pulse Oximetry 92 Oxygen Delivery Room Air Intake/Output Intake/Output: Intake & Output 08/22/25 08/23/25 08/24/25 08/25/25 23:59 23:59 23:59 23:59 Intake Total 3702 1310 50 50 Output Total 1400 450 950 200 Balance 2302 860 -900 -150 Meds/Results Medications: Active Medications Generic Name Dose Route Start Last Admin Trade Name Freq PRN Reason Stop Dose Admin Acetaminophen 650 mg 08/17/25 14:44 08/22/25 22:22 Acetaminophen 325 Mg Tablet PO 650 mg Q4H PRN Administration pain 1-3 Hydrocodone Bitart/Acetaminophen 1 tab 08/17/25 14:44 08/25/25 08:50 Hydrocodone/Acetaminophen (*Crx) 5-325 Mg Tablet PO 1 tab Q6H PRN Administration Pain 4-6 Amlodipine Besylate 10 mg 08/18/25 09:00 08/25/25 08:51 Amlodipine Besylate 10 Mg Tablet FEED TUBE 10 mg DAILY MERLYN Administration Apixaban 2.5 mg 08/17/25 21:00 08/25/25 08:51 Apixaban 2.5 Mg Tablet FEED TUBE 2.5 mg Q12HR MERLYN Administration Artificial Tears 1 drop 08/17/25 17:00 08/25/25 13:15 Artificial Tears Ophth Soln 15 Ml Bottle EACH EYE 1 drop TID MERLYN Administration Ascorbic Acid 250 mg 08/18/25 09:00 08/25/25 08:51 Ascorbic Acid 250 Mg Tablet PO 250 mg DAILY MERLYN Administration Bisacodyl 10 mg 08/18/25 08:27 Bisacodyl 10 Mg Suppository RECTAL DAILY PRN Constipation Citalopram Hydrobromide 20 mg 08/18/25 09:00 08/25/25 08:51 Citalopram Hydrobromide 20 Mg Tablet PO 20 mg DAILY MERLYN Administration Folic Acid 1 mg 08/18/25 09:00 08/25/25 08:51 Folic Acid 1 Mg Tablet PO 1 mg DAILY MERLYN Administration Heparin Sodium (Beef Lung) 50 units 08/23/25 09:00 08/25/25 08:52 Heparin Flush 50 Units/5 Ml Syringe IV PUSH 50 units QAM MERLYN Administration Heparin Sodium (Beef Lung) 50 units 08/23/25 03:41 Heparin Flush 50 Units/5 Ml Syringe IV PUSH PRN PRN after intermittent infusion Heparin Sodium (Beef Lung) 50 units 08/23/25 03:41 Heparin Flush 50 Units/5 Ml Syringe IV PUSH PRN PRN after blood draws Heparin Sodium (Porcine) 500 units 08/23/25 03:41 Heparin Sodium Lock Flush 500 Units/5 Ml Syringe IV PUSH PRN PRN see comments below Ceftriaxone Sodium 1 gm/ 50 mls @ 100 mls/hr 08/18/25 04:00 08/25/25 03:56 Sodium Chloride IVPB Infused Q24H MERLYN Infusion Ipratropium [place] 0.25 mg 08/17/25 14:44 Ipratropium Br 0.02% Inh Soln 0.5 Mg/2.5 Ml Vial INHALATION DAILY PRN Shortness Of Breath Or Wheezing Lansoprazole 30 mg 08/18/25 09:00 08/25/25 08:51 Lansoprazole Odt 30 Mg Tab.Rap.Dr PO 30 mg DAILY MERLYN Administration Loratadine 5 mg 08/25/25 12:30 08/25/25 13:14 Loratadine 5 Mg Tablet PO 5 mg QAM MERLYN Administration Magnesium Citrate 296 ml 08/21/25 02:08 Magnesium Citrate 300 Ml Btl PO DAILY PRN Constipation Melatonin 3 mg 08/17/25 21:00 08/24/25 21:35 Melatonin 3 Mg Tablet PO 3 mg HS MERLYN Administration Metoprolol Tartrate 50 mg 08/19/25 21:00 08/25/25 08:51 Metoprolol Tartrate 50 Mg Tab FEED TUBE 50 mg Q12HR MERLYN Administration Morphine Sulfate 4 mg 08/23/25 03:41 08/25/25 03:41 Morphine Sulfate (*Crx) 4 Mg/Ml Inj IV PUSH 4 mg Q12HR PRN Administration Pain Rated 7-10 Multivitamin Hematinic Therapeutic 1 tablet 08/18/25 09:00 08/25/25 08:53 Multivitamin Hematinic (*Bkc) Tablet PO 1 tablet DAILY MERLYN Administration Ondansetron HCl 4 mg 08/17/25 14:44 08/23/25 08:38 Ondansetron Hcl Odt 4 Mg Tablet PO 4 mg QID PRN Administration Nausea And Vomiting Polyethylene Glycol 17 gm 08/18/25 09:00 08/25/25 08:53 Polyethylene Glycol 3350 17 Gm Powd.Pack PO 17 gm QAM MERLYN Administration Pregabalin 75 mg 08/18/25 09:00 08/25/25 08:51 Pregabalin (*Crx) 75 Mg Capsule PO 75 mg DAILY MERLYN Administration Senna 8.6 mg 08/18/25 09:00 08/25/25 08:51 Sennosides 8.6 Mg Tablet PO 8.6 mg DAILY MERLYN Administration Sodium Bicarbonate 650 mg 08/17/25 17:00 08/25/25 08:52 Sodium Bicarbonate Tab 650 Mg Tablet PO 650 mg BID MERLYN Administration Sodium Chloride 10 ml 08/23/25 06:00 08/25/25 05:43 Central Line Flush IV PUSH 10 ml Q8HR MERLYN Administration Thiamine HCl 100 mg 08/17/25 17:00 08/25/25 13:14 Thiamine Hcl 100 Mg Tablet FEED TUBE 100 mg TID MERLYN Administration Trazodone HCl 50 mg 08/17/25 21:00 08/24/25 21:35 Trazodone Hcl 50 Mg Tablet PO 50 mg HS MERLYN Administration Vitamin D 25 mcg 08/18/25 09:00 08/25/25 08:51 Cholecalciferol (Vitamin D3) 25 Mcg (1,000 Units) Tablet FEED TUBE 25 mcg DAILY MERLYN Administration Radiology Results: ITS Impressions Chest/Abdomen/Pelvis CTA 08/17/25 08:16 IMPRESSION: 1. No pulmonary embolus. 2. Left-sided pyelitis. 3. Stool-filled distended rectosigmoid. 4. Decubitus ulcers superficial to the sacrum and ischial tuberosities. No specific evidence of acute osteomyelitis. Chest X-Ray 08/21/25 06:27 IMPRESSION: 1. Persistent right basilar atelectasis. 2. Otherwise no acute abnormality or change. Abdomen X-Ray 08/24/25 13:55 IMPRESSION: 1. Limited supine radiograph shows no definite evidence off mechanical bowel obstruction. 2. Significant fecal impaction with fecal mass of the rectosigmoid. G-tube noted in the upper abdomen. Labs Labs: Laboratory Results - last 24 hr 08/24/25 08/25/25 08/25/25 21:49 06:15 08:08 WBC 8.5 RBC 3.13 L Hgb 8.8 L Hct 29.3 L MCV 93.6 MCH 28.1 MCHC 30.0 L RDW 15.2 H Plt Count 255 MPV 10.4 Immature Gran % (Auto) 0.6 H Neut % (Auto) 71.5 Lymph % (Auto) 18.7 [place] % (Auto) 5.3 Eos % (Auto) 3.8 Baso % (Auto) 0.1 L Lymph # (Auto) 1.59 [place] # (Auto) 0.5 Eos # (Auto) 0.3 Baso # (Auto) 0.0 Abs Immat Gran (auto) 0.05 H Absolute Neuts (auto) 6.1 Absolute Nucleated RBC 0.000 Nucleated RBC % 0.0 Sodium 134 L Potassium 5.7 H Chloride 99 Carbon Dioxide 30 Anion Gap 5 BUN 79 H Creatinine 1.35 H Estim Creat Clear Calc 33 Estimated GFR 40 L Glucose 103 POC Capillary Glucose 109 H 116 H Calcium 8.9 Total Bilirubin 0.3 AST 43 H ALT 18 Alkaline Phosphatase 180 H Total Protein 8.2 Albumin 3.6 08/25/25 11:49 WBC RBC Hgb Hct MCV MCH MCHC RDW Plt Count MPV Immature Gran % (Auto) Neut % (Auto) Lymph % (Auto) [place] % (Auto) Eos % (Auto) Baso % (Auto) Lymph # (Auto) [place] # (Auto) Eos # (Auto) Baso # (Auto) Abs Immat Gran (auto) Absolute Neuts (auto) Absolute Nucleated RBC Nucleated RBC % Sodium Potassium Chloride Carbon Dioxide Anion Gap BUN Creatinine Estim Creat Clear Calc Estimated GFR Glucose POC Capillary Glucose 115 H Calcium Total Bilirubin AST ALT Alkaline Phosphatase Total Protein Albumin Quality VTE Prophylaxis VTE prophylaxis: pharmacologic ordered
[2025-08-25 16:18] VITALS: BP 92/57
[2025-08-25 21:58] VITALS: PULSE 78
[2025-08-25] MEDS: MELATONIN 3 MG TABLET PO (21:58)
[2025-08-25 22:00] VITALS: BP 103/70; PULSE 114; RESP 18; TEMP 36.1; O2SAT 94
[2025-08-26] MEDS: cefTRIAXone 1 GM in SODIUM CHLORIDE 0.9% IV 50 ML 100 ML IVPB (03:18)
[2025-08-26] MEDS: ACETAMINOPHEN 325 MG TABLET 650 MG PO (03:19)
[2025-08-26] MEDS: CENTRAL LINE FLUSH 10 ML IV PUSH ×3 (03:19→22:11)
[2025-08-26] MEDS: MORPHINE SULFATE (*CRX) 4 MG/ML INJ IV PUSH ×2 (04:50→17:58)
[2025-08-26 05:25] LABS: Hematocrit 26.9 % (37.0-47.0); Hemoglobin 8.0 g/dL (12.0-15.0); Immature Granulocyte Percent A 0.4 % (0-0.5); Lymphocytes Absolute Auto 1.57 K/mm3 (0.9-3.2); Mean Corpuscular HGB Conc 29.7 g/dl (32-36); Mean Corpuscular Hemoglobin 27.9 pg (26-34); Mean Corpuscular Volume 93.7 fl (80-100); Nucleated Red Blood Cells Absolute Auto 0.000 K/mm3 (0.0-0.012); Nucleated Red Blood Cells Perc 0.0 % (0.0-0.2); Platelet Count Result 259 k/mm3 (150-375); Red Blood Count 2.87 M/mm3 (4.2-5.4); White Blood Count 8.2 K/mm3 (4.5-10.0)
[2025-08-26 05:51] LABS: Alanine Aminotransferase 16 U/L (6-35); Albumin Level 3.4 g/dL (3.5-5.1); Alkaline Phosphatase 176 U/L (38-126); Anion Gap 2 mmol/L (4-12); Aspartate Amino Transferase 30 U/L (14-36); Bilirubin,Total 0.2 mg/dL (0.2-1.3); Blood Urea Nitrogen 85 mg/dL (7-17); Calcium 8.7 mg/dL (8.4-10.2); Carbon Dioxide 29 mmol/L (22-30); Chloride 101 mmol/L (98-107); Estimated CRCL calculation 32 ml/min; Estimated Glomerular Filt Rate 38; Glucose 86 mg/dL (65-110); Magnesium 2.8 mg/dL (1.6-2.3); Potassium 5.0 mmol/L (3.4-5.0); Sodium 132 mmol/L (137-145); Total Protein 7.6 g/dL (6.3-8.2)
[2025-08-26 05:56] LABS: Hypochromasia 1+; Schistocytes None Seen
[2025-08-26 06:00] VITALS: BP 136/62; PULSE 80; RESP 16; TEMP 36.3; O2SAT 100
[2025-08-26 09:00] VITALS: O2SAT 99
[2025-08-26] MEDS: LANSOPRAZOLE ODT 30 MG TAB.RAP.DR PO (10:19)
[2025-08-26 10:20] VITALS: PULSE 90
[2025-08-26] MEDS: CITALOPRAM HYDROBROMIDE 20 MG TABLET PO (10:20)
[2025-08-26] MEDS: FOLIC ACID 1 MG TABLET PO (10:20)
[2025-08-26] MEDS: LORATADINE 5 MG TABLET PO (10:20)
[2025-08-26] MEDS: THIAMINE HCL 100 MG TABLET FEED TUBE ×3 (10:20→17:58)
[2025-08-26] MEDS: MULTIVITAMIN HEMATINIC (*BKC) TABLET 1 TABLET PO (10:20)
[2025-08-26] MEDS: METOPROLOL TARTRATE 50 MG TAB FEED TUBE ×2 (10:20→21:50)
[2025-08-26] MEDS: SENNOSIDES 8.6 MG TABLET PO (10:20)
[2025-08-26] MEDS: APIXABAN 2.5 MG TABLET FEED TUBE ×2 (10:20→21:49)
[2025-08-26] MEDS: ASCORBIC ACID 250 MG TABLET PO (10:22)
[2025-08-26] MEDS: CHOLECALCIFEROL (VITAMIN D3) 25 MCG (1,000 UNITS) TABLET FEED TUBE (10:22)
[2025-08-26] MEDS: PREGABALIN (*CRX) 75 MG CAPSULE PO (10:22)
[2025-08-26] MEDS: SODIUM BICARBONATE TAB 650 MG TABLET PO ×2 (10:22→17:58)
[2025-08-26 14:00] VITALS: BP 95/67; PULSE 90; RESP 18; TEMP 36.5; O2SAT 97
--- NOTE | 2025-08-26 14:02 | P.PNIM_ITS ---
Progress Note: A&P Assessment and Plan (1) Generalized anxiety disorder: Code(s): F41.1 - Generalized anxiety disorder Status: Acute (2) Essential (primary) hypertension: Code(s): I10 - Essential (primary) hypertension Status: Acute (3) Sinus tachycardia: Code(s): R00.0 - Tachycardia, unspecified Status: Acute (4) Abdominal pain: Code(s): R10.9 - Unspecified abdominal pain Status: Acute (5) Stage 3 chronic kidney disease: Code(s): N18.30 - Chronic kidney disease, stage 3 unspecified Status: Chronic (6) UTI (urinary tract infection): Code(s): N39.0 - Urinary tract infection, site not specified Status: Acute Plan 60-year-old female with past medical history of debility, contractures, and multiple decub ulcers 2/2 MS to the ED on 08/16/2025 with abdominal pain from her [facility].Pt is a poor historian. Pt was recently here at the end of July and transferred to [facility] for a second opinion for potential RLE amputation. Amputation did not take place Patient was admitted for possible pneumonia and UTI Pneumonia: Atelectasis to the RLL per CT scan. -Continue ceftriaxone & doxy IV Follow culture result with no growth Blood cultures x2 negative to date Hyperkalemia K is trending up, tube feeding formula adjusted if K trends down tomorrow, discharge Chest pain: Elevated troponin Cardiology following Conservative manage due to multiple comorbid condition including contractures No further chest pain reported UTI (urinary tract infection): Continue with ceftriaxone Follow-up urine culture Gastrointestinal tube in situ: Pt eats food via mouth, G tube for meds & tube feed Tube feeding is not working. GI team on board. And G tube replaced -Continuous Jevity 1.5 at 55mls/hr with 150ml free water flushes q4 + Maged Pressure ulcers of skin of multiple topographic sites: Extensive, but denies pain. History of MS, extensive contractures Wound care following Schizoaffective disorder: Monitor Abdominal pain: Constipation has resolved History of pulmonary embolism: Currently on Eliquis 2.5 mg b.i.d. Elevated troponin: Less than 0.012-2.5-3 0.6-3.7. Cardiology consulted. Conservative management recommended. Code status: Full DVT prophylaxis: Eliquis Disposition: Pending K trending down Possibel discharge tomorrow Subjective Date/time seen: 08/26/25 14:02 Interval history: per HPI: Pt with a hx of debility, contractures, and multiple decub ulcers 2/2 MS to the ED on 08/16/2025 c/p abd pain from her [facility]. Today pt reporting a burning type GERD upper abd pain with potential nausea she cannot definitively differentiate the two; when turned on her side during wound assessment, she reports alleviated abd pain. Pt is a poor historian. Pt was recently here at the end of July and transferred to [facility] for a second opinion for potential RLE amputation. Amputation did not take place, wounds evaluated today with me as wel l as wound, none looking acutely infected but all in advanced stages. Pt denies SOB but endorses CP when asked if she is having chest pain and but cannot describe the cp. Her white count is noted to be 14, which is down trending from her initial labs in the ED (15.3). Her H&H is 9.1 and 29.8, these are slightly higher than her baseline. Her potassium was found to be 4.9 Her BUN 59 and creatinine 1.19. Her GFR is 46. WBC 14 (down from 15.3 in the ED), continue ceftriaxone and doxy for PNA and possible UTI. 08/20/25 Patient was seen and examined at bedside. She is feeling fine. Denies any chest pain, shortness off breath. Feeding tube was not working. GI team on board. Plan for tube placement today. Reviewed lab test. WBC 8. Continue treatment for pneumonia and UTI. Continue Rocephin and doxycycline. Follow urine culture results 08/21: Night team reports patient complained of chest pain and ordered troponin and cardiology consult. Pending cardiology evaluation. Elevated troponin. Patient has a history of pulmonary embolism and currently on Eliquis 2.5 mg p.o. b.i.d.. Cardiology with the patient no acute intervention. Given morphine 2 mg IV x1. Called legal guardian but unable to reach for an update 08/22/2025: No overnight events reported. Complains of generalized pain no overt chest pain or shortness of breath. 08/23/2025: No overnight events. Continues to have pain in her abdomen. Has not had a bowel movement yet. No chest pain or shortness of breath. 08/24: Ordered a KUB. No acute events overnight. Monitor for bowel movement and KUB results 08/25: K appears to be trending up, tube feeding formular adjusted, monitor one more day possible discharge tomorrow 08/26/2025 patient was seen during the morning rounds today. No new overnight complaints. Resting comfortable Review of Systems Review of Systems: All systems reviewed & are unremarkable except as noted in HPI and below Exam Narrative: APPEARANCE: A&O times 1-2, chronically unwell appearing contracted full body quadriparetic Head: atraumatic. EYES: EOMI, NOSE: Atraumatic NECK: Trachea midline RESPIRATORY: Diminished breath sounds bilaterally no respiratory distress CARDIOVASCULAR: Regular rate rhythm ABDOMINAL: Nondistended, no guarding or rebound MUSCULOSKELETAl: No obvious deformities NEURO: Alert. Functional quadriplegic with 4 extremity contractures SKIN: Multiple wounds in the sacral area Const: General: comfortable and no acute distress Orientation/consciousness: oriented to person HENMT: Face/Nose/Sinus: Normal nares present Other: tacky mucous membranes Eyes: Other: Nystagmus L eye Neck: Neck: supple Resp: Effort & Inspection: normal respiratory effort Auscultation: clear to auscultation bilaterally Other: diminished LS in the bases Cardio: Rate: tachycardic (appears to be chronic) Rhythm: regular rhythm GI: Inspection: non-distended Auscultation: normal bowel sounds : External Female Exam: normal external appearance Other: observed during wound exam/cleaning up pt Skin: Other: Multiple wounds, refer to wound comprehensive notes. All wounds redressed today. Neuro: General: oriented to person Speech: normal speech Other: Unable to assess strength due to MS contractures, sensation limited in BLE Extrem: Other: 4 limb contracture Psych: Affect: normal affect Judgement: Poor judgement present (Psych) Objective Data Vital Signs Vital Signs: Vital Signs - 24 hr 08/25/25 16:18 08/25/25 21:58 08/25/25 22:00 Temperature 36.1 C L Pulse Rate 78 114 H Respiratory Rate 18 Blood Pressure 92/57 L 103/70 Pulse Oximetry 94 Oxygen Delivery 08/26/25 06:00 08/26/25 09:00 08/26/25 10:20 Temperature 36.3 C L Pulse Rate 80 90 Respiratory Rate 16 Blood Pressure 136/62 Pulse Oximetry 100 99 Oxygen Delivery Room Air 08/26/25 14:00 Temperature 36.5 C Pulse Rate 90 Respiratory Rate 18 Blood Pressure 95/67 L Pulse Oximetry 97 Oxygen Delivery Intake/Output Intake/Output: Intake & Output 08/23/25 08/24/25 08/25/25 08/26/25 23:59 23:59 23:59 23:59 Intake Total 1310 50 50 1970 Output Total 450 950 200 Balance 860 -900 -150 1969 Meds/Results Medications: Active Medications Generic Name Dose Route Start Last Admin Trade Name Freq PRN Reason Stop Dose Admin Acetaminophen 650 mg 08/17/25 14:44 08/26/25 03:19 Acetaminophen 325 Mg Tablet PO 650 mg Q4H PRN Administration pain 1-3 Hydrocodone Bitart/Acetaminophen 1 tab 08/17/25 14:44 08/25/25 21:58 Hydrocodone/Acetaminophen (*Crx) 5-325 Mg Tablet PO 1 tab Q6H PRN Administration Pain 4-6 Amlodipine Besylate 10 mg 08/18/25 09:00 08/26/25 10:20 Amlodipine Besylate 10 Mg Tablet FEED TUBE 10 mg DAILY MERLYN Administration Apixaban 2.5 mg 08/17/25 21:00 08/26/25 10:20 Apixaban 2.5 Mg Tablet FEED TUBE 2.5 mg Q12HR MERLYN Administration Artificial Tears 1 drop 08/17/25 17:00 08/26/25 10:23 Artificial Tears Ophth Soln 15 Ml Bottle EACH EYE Not Given TID MERLYN Ascorbic Acid 250 mg 08/18/25 09:00 08/26/25 10:22 Ascorbic Acid 250 Mg Tablet PO 250 mg DAILY MERLYN Administration Bisacodyl 10 mg 08/27/25 09:00 Bisacodyl 10 Mg Suppository RECTAL DAILY MERLYN Citalopram Hydrobromide 20 mg 08/18/25 09:00 08/26/25 10:20 Citalopram Hydrobromide 20 Mg Tablet PO 20 mg DAILY MERLYN Administration Folic Acid 1 mg 08/18/25 09:00 08/26/25 10:20 Folic Acid 1 Mg Tablet PO 1 mg DAILY MERLNY Administration Heparin Sodium (Beef Lung) 50 units 08/23/25 09:00 08/26/25 10:19 Heparin Flush 50 Units/5 Ml Syringe IV PUSH 50 units QAM MERLYN Administration Heparin Sodium (Beef Lung) 50 units 08/23/25 03:41 08/26/25 04:15 Heparin Flush 50 Units/5 Ml Syringe IV PUSH 50 units PRN PRN Administration after intermittent infusion Heparin Sodium (Beef Lung) 50 units 08/23/25 03:41 Heparin Flush 50 Units/5 Ml Syringe IV PUSH PRN PRN after blood draws Heparin Sodium (Porcine) 500 units 08/23/25 03:41 Heparin Sodium Lock Flush 500 Units/5 Ml Syringe IV PUSH PRN PRN see comments below Ceftriaxone Sodium 1 gm/ 50 mls @ 100 mls/hr 08/18/25 04:00 08/26/25 03:18 Sodium Chloride IVPB 100 mls/hr Q24H MERLYN Administration Ipratropium Bi[place] 0.25 mg 08/17/25 14:44 Ipratropium Br 0.02% Inh Soln 0.5 Mg/2.5 Ml Vial INHALATION DAILY PRN Shortness Of Breath Or Wheezing Lansoprazole 30 mg 08/18/25 09:00 08/26/25 10:19 Lansoprazole Odt 30 Mg Tab.Rap.Dr PO 30 mg DAILY MERLYN Administration Loratadine 5 mg 08/25/25 12:30 08/26/25 10:20 Loratadine 5 Mg Tablet PO 5 mg QAM MERLYN Administration Magnesium Citrate 296 ml 08/27/25 09:00 Magnesium Citrate 300 Ml Btl PO DAILY MERLYN Melatonin 3 mg 08/17/25 21:00 08/25/25 21:58 Melatonin 3 Mg Tablet PO 3 mg HS MERLYN Administration Metoprolol Tartrate 50 mg 08/19/25 21:00 08/26/25 10:20 Metoprolol Tartrate 50 Mg Tab FEED TUBE 50 mg Q12HR MERLYN Administration Morphine Sulfate 4 mg 08/23/25 03:41 08/26/25 04:50 Morphine Sulfate (*Crx) 4 Mg/Ml Inj IV PUSH 4 mg Q12HR PRN Administration Pain Rated 7-10 Multivitamin Hematinic Therapeutic 1 tablet 08/18/25 09:00 08/26/25 10:20 Multivitamin Hematinic (*Bkc) Tablet PO 1 tablet DAILY MERLYN Administration Ondansetron HCl 4 mg 08/17/25 14:44 08/23/25 08:38 Ondansetron Hcl Odt 4 Mg Tablet PO 4 mg QID PRN Administration Nausea And Vomiting Polyethylene Glycol 17 gm 08/18/25 09:00 08/26/25 10:19 Polyethylene Glycol 3350 17 Gm Powd.Pack PO 17 gm QAM MERLYN Administration Pregabalin 75 mg 08/18/25 09:00 08/26/25 10:22 Pregabalin (*Crx) 75 Mg Capsule PO 75 mg DAILY MERLYN Administration Senna 8.6 mg 08/18/25 09:00 08/26/25 10:20 Sennosides 8.6 Mg Tablet PO 8.6 mg DAILY MERLYN Administration Sodium Bicarbonate 650 mg 08/17/25 17:00 08/26/25 10:22 Sodium Bicarbonate Tab 650 Mg Tablet PO 650 mg BID MERLYN Administration Sodium Chloride 10 ml 08/23/25 06:00 08/26/25 05:11 Central Line Flush IV PUSH 10 ml Q8HR MERLYN Administration Thiamine HCl 100 mg 08/17/25 17:00 08/26/25 12:38 Thiamine Hcl 100 Mg Tablet FEED TUBE 100 mg TID MERLYN Administration Trazodone HCl 50 mg 08/17/25 21:00 08/25/25 21:58 Trazodone Hcl 50 Mg Tablet PO 50 mg HS MERLYN Administration Vitamin D 25 mcg 08/18/25 09:00 08/26/25 10:22 Cholecalciferol (Vitamin D3) 25 Mcg (1,000 Units) Tablet FEED TUBE 25 mcg DAILY MERLYN Administration Radiology Results: ITS Impressions Chest/Abdomen/Pelvis CTA 08/17/25 08:16 IMPRESSION: 1. No pulmonary embolus. 2. Left-sided pyelitis. 3. Stool-filled distended rectosigmoid. 4. Decubitus ulcers superficial to the sacrum and ischial tuberosities. No specific evidence of acute osteomyelitis. Chest X-Ray 08/21/25 06:27 IMPRESSION: 1. Persistent right basilar atelectasis. 2. Otherwise no acute abnormality or change. Abdomen X-Ray 08/24/25 13:55 IMPRESSION: 1. Limited supine radiograph shows no definite evidence off mechanical bowel obstruction. 2. Significant fecal impaction with fecal mass of the rectosigmoid. G-tube noted in the upper abdomen. Labs Labs: Laboratory Results - last 24 hr 08/25/25 08/26/25 08/26/25 22:22 05:13 06:47 WBC 8.2 RBC 2.87 L Hgb 8.0 L Hct 26.9 L MCV 93.7 MCH 27.9 MCHC 29.7 L RDW 15.2 H Plt Count 259 MPV 10.1 Immature Gran % (Auto) 0.4 Neut % (Auto) 70.4 Lymph % (Auto) 19.2 Collier % (Auto) 5.4 Eos % (Auto) 4.2 Baso % (Auto) 0.4 Lymph # (Auto) 1.57 Collier # (Auto) 0.4 Eos # (Auto) 0.3 Baso # (Auto) 0.0 Abs Immat Gran (auto) 0.03 Absolute Neuts (auto) 5.8 Absolute Nucleated RBC 0.000 Band Neutrophils % Not Reportable Nucleated RBC % 0.0 Platelet Estimate Adequate Hypochromasia 1+ Schistocytes None seen Sodium 132 L Potassium 5.0 Chloride 101 Carbon Dioxide 29 Anion Gap 2 L BUN 85 H Creatinine 1.42 H Estim Creat Clear Calc 32 Estimated GFR 38 L Glucose 86 POC Capillary Glucose 119 H 91 Lactic Acid 1.0 Calcium 8.7 Magnesium 2.8 H Total Bilirubin 0.2 AST 30 ALT 16 Alkaline Phosphatase 176 H Total Protein 7.6 Albumin 3.4 L 08/26/25 08/26/25 08:03 11:10 WBC RBC Hgb Hct MCV MCH MCHC RDW Plt Count MPV Immature Gran % (Auto) Neut % (Auto) Lymph % (Auto) Collier % (Auto) Eos % (Auto) Baso % (Auto) Lymph # (Auto) Collier # (Auto) Eos # (Auto) Baso # (Auto) Abs Immat Gran (auto) Absolute Neuts (auto) Absolute Nucleated RBC Band Neutrophils % Nucleated RBC % Platelet Estimate Hypochromasia Schistocytes Sodium Potassium Chloride Carbon Dioxide Anion Gap BUN Creatinine Estim Creat Clear Calc Estimated GFR Glucose POC Capillary Glucose 98 95 Lactic Acid Calcium Magnesium Total Bilirubin AST ALT Alkaline Phosphatase Total Protein Albumin Quality VTE Prophylaxis VTE prophylaxis: pharmacologic ordered
--- NOTE | 2025-08-26 14:18 | PC.NURSE ---
Patient states her stomach is hurting today and that she wants her feedings turned down. RN informed government contracts manager of patient complaints. also told government contracts manager that patient never complained before when she was on brandie. Kennel Supervisor suggest that the feeding rate be reduced to 30ml/hour.
--- NOTE | 2025-08-26 14:19 | PCDIET ---
Spoke with nursing today regarding tube feeding rate. Patient is complaining of abdominal pain. Tube feedings changed from Jevity 1.5 to Nepro at 45 ml/hr. Recommending to decrease rate to 30 ml/hr with flush 150 ml q 4 hours. Total Nutrition with Maged BID: 1456 kcal/63 gm protein/523 ml water. Tube feeding is meeting 81% kcal needs and 89% protein needs. Patient is able to eat heart healthy diet as tolerated, nursing states patient has been wanting snacks till today when abdominal pain started. Will continue to monitor every Sunday and Sunday.
[2025-08-26] MEDS: MELATONIN 3 MG TABLET PO (21:50)
[2025-08-26] MEDS: HYDROcodone/acetaminophen (*CRX) 5-325 MG TABLET 1 TAB PO (21:58)
[2025-08-26 22:00] VITALS: BP 90/52; PULSE 87; RESP 16; TEMP 36.3; O2SAT 100
[2025-08-27] MEDS: HYDROcodone/acetaminophen (*CRX) 5-325 MG TABLET 1 TAB PO (04:48)
[2025-08-27] MEDS: cefTRIAXone 1 GM in SODIUM CHLORIDE 0.9% IV 50 ML 100 ML IVPB (04:48)
[2025-08-27] MEDS: CENTRAL LINE FLUSH 10 ML IV PUSH (04:49)
[2025-08-27 05:41] VITALS: BP 92/65; PULSE 79; RESP 16; TEMP 35.9; O2SAT 99
[2025-08-27 08:30] VITALS: O2SAT 98
[2025-08-27 08:36] VITALS: PULSE 92
[2025-08-27] MEDS: APIXABAN 2.5 MG TABLET FEED TUBE (08:36)
[2025-08-27] MEDS: ASCORBIC ACID 250 MG TABLET PO (08:36)
[2025-08-27] MEDS: LORATADINE 5 MG TABLET PO (08:36)
[2025-08-27] MEDS: LANSOPRAZOLE ODT 30 MG TAB.RAP.DR PO (08:36)
[2025-08-27] MEDS: SENNOSIDES 8.6 MG TABLET PO (08:36)
[2025-08-27] MEDS: CHOLECALCIFEROL (VITAMIN D3) 25 MCG (1,000 UNITS) TABLET FEED TUBE (08:36)
[2025-08-27] MEDS: METOPROLOL TARTRATE 50 MG TAB FEED TUBE (08:36)
[2025-08-27] MEDS: THIAMINE HCL 100 MG TABLET FEED TUBE (08:36)
[2025-08-27] MEDS: MULTIVITAMIN HEMATINIC (*BKC) TABLET 1 TABLET PO (08:37)
[2025-08-27] MEDS: SODIUM BICARBONATE TAB 650 MG TABLET PO (08:37)
[2025-08-27] MEDS: FOLIC ACID 1 MG TABLET PO (08:37)
[2025-08-27] MEDS: CITALOPRAM HYDROBROMIDE 20 MG TABLET PO (08:37)
[2025-08-27] MEDS: PREGABALIN (*CRX) 75 MG CAPSULE PO (08:37)
[2025-08-27] MEDS: BISACODYL 10 MG SUPPOSITORY RECTAL (08:38)
--- NOTE | 2025-08-27 11:16 | P.DS_ITS ---
DS: Admitting Diagnosis Discharge Date 08/27/2025 Admitting Diagnosis UTI, abdominal pain DS: Discharge Diagnosis Discharge Diagnosis (1) Generalized anxiety disorder: Code(s): F41.1 - Generalized anxiety disorder Status: Acute (2) Essential (primary) hypertension: Code(s): I10 - Essential (primary) hypertension Status: Acute (3) Sinus tachycardia: Code(s): R00.0 - Tachycardia, unspecified Status: Acute (4) Abdominal pain: Code(s): R10.9 - Unspecified abdominal pain Status: Acute (5) Stage 3 chronic kidney disease: Code(s): N18.30 - Chronic kidney disease, stage 3 unspecified Status: Chronic (6) UTI (urinary tract infection): Code(s): N39.0 - Urinary tract infection, site not specified Status: Acute Plan 60-year-old female with past medical history of debility, contractures, and multiple decub ulcers 2/2 MS to the ED on 08/16/2025 with abdominal pain from her [facility].Pt is a poor historian. Pt was recently here at the end of July and transferred to [facility] for a second opinion for potential RLE amputation. Amputation did not take place Patient was admitted for possible pneumonia and UTI Pneumonia: Atelectasis to the RLL per CT scan. -Continue ceftriaxone & doxy IV Follow culture result with no growth Blood cultures x2 negative to date Hyperkalemia K is trending up, tube feeding formula adjusted if K trends down tomorrow, discharge Chest pain: Elevated troponin Cardiology following Conservative manage due to multiple comorbid condition including contractures No further chest pain reported UTI (urinary tract infection): Continue with ceftriaxone Follow-up urine culture Gastrointestinal tube in situ: Pt eats food via mouth, G tube for meds & tube feed Tube feeding is not working. GI team on board. And G tube replaced -Continuous Jevity 1.5 at 55mls/hr with 150ml free water flushes q4 + Maged Pressure ulcers of skin of multiple topographic sites: Extensive, but denies pain. History of MS, extensive contractures Wound care following Schizoaffective disorder: Monitor Abdominal pain: Constipation has resolved History of pulmonary embolism: Currently on Eliquis 2.5 mg b.i.d. Elevated troponin: Less than 0.012-2.5-3 0.6-3.7. Cardiology consulted. Conservative management recommended. Code status: Full DVT prophylaxis: Eliquis Disposition: Pending K trending down Possibel discharge tomorrow DS: Summary Hospital Course Reason for hospitalization: UTI Hospital Course: 60 years old female with history of multiple medical problems admitted with complaint of having abdominal pain and possible UTI. Patient was given IV antibiotics and cultures were done. Patient did not have any complication during the stay in the hospital. Home medications were continued. Today patient is feeling better and was discharged to long-term stable condition. Follow-up scheduled Status at Discharge Cognitive/behavioral status at discharge: stable Time Spent with Patient Time attestation: Total time spent providing and/or coordinating discharge services: Moods then 30 minutes Exam Narrative: APPEARANCE: A&O times 1-2, chronically unwell appearing contracted full body quadriparetic Head: atraumatic. EYES: EOMI, NOSE: Atraumatic NECK: Trachea midline RESPIRATORY: Diminished breath sounds bilaterally no respiratory distress CARDIOVASCULAR: Regular rate rhythm ABDOMINAL: Nondistended, no guarding or rebound MUSCULOSKELETAl: No obvious deformities NEURO: Alert. Functional quadriplegic with 4 extremity contractures SKIN: Multiple wounds in the sacral area Const: General: comfortable and no acute distress Orientation/consciousness: oriented to person HENMT: Face/Nose/Sinus: Normal nares present Other: tacky mucous membranes Eyes: Other: Nystagmus L eye Neck: Neck: supple Resp: Effort & Inspection: normal respiratory effort Auscultation: clear to auscultation bilaterally Other: diminished LS in the bases Cardio: Rate: tachycardic (appears to be chronic) Rhythm: regular rhythm GI: Inspection: non-distended Auscultation: normal bowel sounds : External Female Exam: normal external appearance Other: observed during wound exam/cleaning up pt Skin: Other: Multiple wounds, refer to wound comprehensive notes. All wounds redressed today. Neuro: General: oriented to person Speech: normal speech Other: Unable to assess strength due to MS contractures, sensation limited in BLE Extrem: Other: 4 limb contracture Psych: Affect: normal affect Judgement: Poor judgement present (Psych) DS: Data Data Completed and Pending Labs on day of discharge: Labs from last 24 hours 08/27/25 08/26/25 08/26/25 07:55 22:32 16:20 POC Capillary Glucose 106 H 119 H 97 08/26/25 11:10 POC Capillary Glucose 95 Discharge Plan Discharge Attending physician on discharge: Jac Srivastava Consulting providers: Trinh Padilla; Keyla Reddy; Hima Villagran; Tammi Bailey Discharging Clinician: Jac Srivastava Patient Disposition: [place] Long-Term/Asst Living Activity: as tolerated Diet: as tolerated Patient Instructions: Antibiotic Form, Apixaban (By mouth), Chest Pain (GEN), Pain Management in Older Adults (DC), Bacterial Pneumonia (GEN), High Troponin Levels (GEN) Patient Language: [place] Zealander Stand Alone Forms: General Discharge Information Follow-up/Referrals: Kimber,MD Luis Eduardo [Primary Care Provider, Unknown] Discharge Medications: New metoprolol tartrate 50 mg Tablet 50 mg feeding tube Q12HR Qty: 60 0RF Continued trazodone 50 mg tablet 50 mg PO HS ondansetron 4 mg tablet,disintegrating 4 mg PO QID PRN (Reason: Nausea And Vomiting) cholecalciferol (vitamin D3) 1,000 units G-tube DAILY sennosides [senna] 8.6 mg Tablet 8.6 mg PO DAILY Artificial Tears([id number]) Drops 1 drp EACH EYE TID citalopram 20 mg tablet 20 mg PO DAILY polyethylene glycol 3350 [Miralax] 17 gram Powder In Packet 17 g PO QAM Qty: 30 0RF ipratropium bromide 0.02 % solution 1.25 ml inhalation DAILY PRN (Reason: shortness of breath or wheezing) Maged 7-7-1.5 gram powder in packet 1 ea PO BID sodium bicarbonate 650 mg Tablet 650 mg PO BID citalopram 10 mg tablet 10 mg feeding tube DAILY amlodipine 10 mg tablet 10 mg feeding tube DAILY Eliquis 2.5 mg tablet 2.5 mg feeding tube 2100 lansoprazole [Prevacid SoluTab] 30 mg tablet,disintegrat, delay rel 30 mg PO DAILY folic acid 1 mg tablet 1 mg PO DAILY ascorbic acid (vitamin C) 500 mg/5 mL liquid 250 mg PO DAILY melatonin 3 mg capsule 3 mg PO HS acetaminophen [Tylenol] 325 mg tablet 650 mg PO Q4H PRN (Reason: pain ) bisacodyl 10 mg suppository 10 mg RECTAL DAILY PRN (Reason: constipation) thiamine HCl (vitamin B1) [Vitamin B-1] 100 mg Tablet 100 mg feeding tube TID [id number] [Cerovite Advanced Formula] 1 tablet PO DAILY sodium phosphates [Fleet Enema] 133 ml RECTAL DAILY PRN (Reason: constipation) Rx Instructions: Give if no result 1 day after suppository magnesium hydroxide [Milk of Magnesia] 400 mg/5 mL suspension 30 ml PO DAILY PRN (Reason: constipation) Rx Instructions: Give at HS if no BM in 3 days pregabalin 75 mg capsule 75 mg PO DAILY Discontinued bisacodyl 5 mg tablet,delayed release (DR/EC) 5 mg PO DAILY metoprolol succinate 50 mg tablet extended release 24 hr 50 mg PO TID hydrocodone-acetaminophen 5-325 mg tablet 1 tablet PO Q6H PRN (Reason: pain) magnesium citrate [Citroma] Solution 296 ml PO DAILY PRN (Reason: constipation) Date of admission: 08/17/25 03:35 Primary Care Provider: Luis Eduardo Tan Admitting Provider: Martha Malone Attending physician on admission: Martha Malone Condition: Stable Quality VTE Prophylaxis VTE prophylaxis: pharmacologic ordered
[2025-08-27] MEDS: HEPARIN SODIUM LOCK FLUSH 500 UNITS/5 ML SYRINGE IV PUSH (13:17)
== END 2025-08-27 13:40 | DRG 193 ==
LOC: ANHED 08-17 03:35 → ANH3MEDSUR 08-17 07:11 → ANHIMU 08-21 06:36 → ANH3MEDSUR 08-25 09:04 → ANHIMU 08-31 14:00
PROVIDERS: Internal Medicine; Nurse Practitioner; Admitting Provider General Practice; Emergency Provider Emergency Medicine; PCP Internal Medicine; Visit Provider Internal Medicine
DX: J18.9 Pneumonia, unspecified organism (principal); L89.113 Pressure ulcer of right upper back, stage 3; L89.893 Pressure ulcer of other site, stage 3; L89.323 Pressure ulcer of left buttock, stage 3; L89.314 Pressure ulcer of right buttock, stage 4; L89.153 Pressure ulcer of sacral region, stage 3; L89.613 Pressure ulcer of right heel, stage 3; R53.2 Functional quadriplegia; J96.11 Chronic respiratory failure with hypoxia; N39.0 Urinary tract infection, site not specified; K94.23 Gastrostomy malfunction; E87.5 Hyperkalemia; R07.9 Chest pain, unspecified; R79.89 Other specified abnormal findings of blood chemistry; G35.D Multiple sclerosis, unspecified; I12.9 Hypertensive chronic kidney disease with stage 1 through stage 4 chronic kidney disease, or unspecified chronic kidney disease; N18.30 Chronic kidney disease, stage 3 unspecified; J44.9 Chronic obstructive pulmonary disease, unspecified; E78.5 Hyperlipidemia, unspecified; F03.90 Unspecified dementia, unspecified severity, without behavioral disturbance, psychotic disturbance, mood disturbance, and anxiety; F32.A Depression, unspecified; F41.1 Generalized anxiety disorder; F25.9 Schizoaffective disorder, unspecified; Z87.442 Personal history of urinary calculi; Z86.711 Personal history of pulmonary embolism; Z99.81 Dependence on supplemental oxygen; Z90.5 Acquired absence of kidney; Z79.01 Long term (current) use of anticoagulants
CPT/HCPCS: 36415; 71045; 71275; 74018; 74177; 80048; 80053; 81001; 82948; 83605; 83690; 83735; 83880; 84484; 85025; 85055; 85610; 85730; 87040; 87086; 93005; 96361; 96374; 99285; A9270; J0696; J1171; J1642; J2270; J7120; Q9967